=== PATIENT | female | born 1980 | race Caucasian/White ===

== ENCOUNTER → 2022-11-09 14:05 | Outpatient (CLI) | payer MEDICAID, SELFPAY ==
[2022-11-09 18:39] LABS: Basophils % 0.4 % (0.1-2.0); Eosinophils # 0.1 K/mm3 (0.0-0.4); Eosinophils % 1.3 % (0.1-12.0); Hematocrit 40.7 % (37.0-47.0); Hemoglobin 12.5 g/dL (12.2-16.2); Lymphocytes # 2.5 K/mm3 (0.7-4.5); Mean Corpuscular HGB Conc 30.7 g/dL (31.8-35.4); Mean Corpuscular Hemoglobin 32.4 pg (27.0-31.2); Mean Corpuscular Volume 105.7 fl (81-99); Mean Platelet Volume 9.7 fl (7.4-10.4); Monocytes # 0.5 K/mm3 (0.1-1.0); Monocytes % 4.9 % (1.7-9.3); Neutrophils # 6.2 K/mm3 (1.8-7.8); Neutrophils % 66.4 % (37.0-80.0); Platelet Count 298 K/mm3 (142-424); Red Blood Count 3.85 M/mm3 (4.20-5.40); Red Cell Distribution Width 12.5 % (11.5-17.5); White Blood Count 9.3 K/mm3 (4.8-10.8)
[2022-11-09 18:54] LABS: Alanine Aminotransferase 18 U/L (12-78); Albumin Level 4.6 g/dl (3.5-5.0); Albumin/Globulin Ratio 1.4 (1.1-1.8); Alkaline Phosphatase 86 U/L (38-126); Anion Gap 18.5 mEq/L (5-15); Aspartate Amino Transferase 24 U/L (14-36); Bilirubin,Total 0.4 mg/dl (0.2-1.3); Blood Urea Nitrogen 10 mg/dl (7-17); Calcium 9.3 mg/dl (8.4-10.2); Carbon Dioxide 29 mmol/L (22.0-30.0); Chloride 102 mmol/L (98-107); Estimated Glomerular Filt Rate 111 ml/min (>60); GFR (African American) 134 ML/MIN (>60); Globulin 3.3 g/dL (1.3-3.2); Glucose 85 mg/dl (74-100); Potassium 3.5 mmoL/L (3.5-5.1); Sodium 146 mmol/L (136-145); Total Protein,Serum 7.9 g/dl (6.3-8.2)
[2022-11-09 19:45] LABS: Vitamin B12 530 pg/mL (239-931)
[2022-11-23 17:09] LABS: 1,25 Dihydroxy Vitamin D 122 pg/mL (.); 1,25-Dihydroxy, Vitamin D-2 33 pg/mL (.); 1,25-Dihydroxy, Vitamin D-3 89 pg/mL (.)
== END ==
PROVIDERS: PCP Family Medicine; Visit Provider Family Medicine
DX: J32.9 Chronic sinusitis, unspecified (principal); Z79.899 Other long term (current) drug therapy
CPT/HCPCS: 80053; 82607; 82652; 85025

== ENCOUNTER → 2023-01-10 23:40 | Outpatient (CLI) | payer MEDICAID, SELFPAY ==
[2023-01-10 23:15] LABS: Amphetamine/Metha Screen,Urine Negative ng/ml (<1000); Barbiturates Screen,Urine Positive ng/ml (<200)
[2023-01-10 23:16] LABS: Benzodiazepines Screen,Urine Positive ng/ml (<200); Cannabinoid Screen,Urine Negative ng/ml (<50)
[2023-01-10 23:17] LABS: Cocaine Screen,Urine Positive ng/ml (<300)
[2023-01-10 23:18] LABS: Opiate Screen,Urine Negative ng/ml (<300)
[2023-01-10 23:19] LABS: Phencyclidine Screen,Urine Negative ng/ml (<25)
[2023-01-11 00:26] LABS: Methadone Screen,Urine Negative ng/ml (<300)
== END ==
PROVIDERS: PCP Family Medicine; Visit Provider Family Medicine
DX: Z79.899 Other long term (current) drug therapy (principal)
CPT/HCPCS: 80305

== ENCOUNTER 2023-01-24 19:00 | Emergency (ER) | payer MEDICAID, SELFPAY ==
--- NOTE | 2023-01-24 19:27 | HMH.EDGENADL ---
Discharge Plan Disposition Patient Disposition: Home, Self-Care Condition: Good Prescriptions Prescriptions: No Action clonidine HCl 0.1 mg tablet 0.1 mg PO BID Qty: 60 3RF furosemide [Lasix] 20 mg tablet 20 mg PO DAILY PRN (Reason: edema) Qty: 30 3RF omeprazole 40 mg capsule,delayed release(DR/EC) 40 mg PO DAILY Qty: 90 3RF valacyclovir 500 mg tablet 500 mg PO DAILY cefdinir 300 mg capsule 300 mg PO BID 10 Days Qty: 20 0RF fluconazole 150 mg tablet 150 mg PO ONCE Qty: 1 0RF hydroxyzine HCl 25 mg tablet 25 mg PO TID PRN (Reason: anxiety) Qty: 90 5RF ondansetron 4 mg tablet,disintegrating See Rx Instructions .ROUTE .COMPLEX Qty: 30 0RF Dose Instruction: PLACE 1 TABLET ON TONGUE EVERY 8 HOURS NEEDED FOR NAUSEA AND/OR VOMITING Rx Instructions: PLACE 1 TABLET ON TONGUE EVERY 8 HOURS NEEDED FOR NAUSEA AND/OR VOMITING promethazine 25 mg tablet See Rx Instructions .ROUTE .COMPLEX Qty: 60 2RF Dose Instruction: TAKE 1 TABLET BY MOUTH 3 TIMES A DAY NEEDED FOR NAUSEA AND/OR VOMITING Rx Instructions: TAKE 1 TABLET BY MOUTH 3 TIMES A DAY NEEDED FOR NAUSEA AND/OR VOMITING albuterol sulfate 90 mcg/actuation HFA aerosol inhaler 2 puff inhalation QID PRN (Reason: shortness of breath or wheezing) Qty: 8.5 10RF PNV,calcium 07-yovl-zqqki acid 27 mg iron- 1 mg tablet 1 tab PO DAILY Qty: 90 10RF Rx Instructions: can substitute for formulary vitamin methocarbamol 750 mg tablet See Rx Instructions .ROUTE .COMPLEX Qty: 90 3RF Dose Instruction: TAKE 1 TABLET BY MOUTH 3 TIMES A DAY Rx Instructions: TAKE 1 TABLET BY MOUTH 3 TIMES A DAY Referrals Follow up/Referrals: Alan Beyer MD [Primary Care Provider] - See instructions Activity Restrictions/Add. Instructions Additional Instructions/Restrictions: You were evaluated in the emergency department today. Please follow-up closely with your primary care provider. Return to the emergency department for any new or worsening symptoms. Clinical Impressions Clinical Impression: Migraine Instructions Patient Instructions: DI for Migraine Discharge ED Provider: Michaelle Olguin General Adult HPI General Chief complaint: Recheck/Abnormal Lab/Rx Stated complaint: Potassium low Time Seen by Provider: 01/24/23 19:14 History of Present Illness HPI narrative: This patient is a 42-year-old female with a history of migraines presenting to the emergency department with concern that she had low potassium on outpatient labs obtained by her ENT physician. She states they called and told her to get to the ER because her potassium is dangerously low. She sees ENT for a chronic sinusitis. She states that she has been doing well as far as this goes. She states that she has been having some muscle cramps, and she is currently dealing with a migraine. She states that the only thing that usually helps her migraines in the emergency department is Dilaudid, as she is allergic to everything else. She can have Tylenol, Toradol, or other medications because it makes her have chest pain or feel funny. She denies any recent fevers, vision changes, numbness, tingling, unilateral weakness, chest pain, shortness of breath, abdominal pain, nausea, vomit, changes bowel movements, or other concerns. She does note some cramping in her legs bilaterally. Related Data Home Medications Medication Instructions Recorded Confirmed valacyclovir 500 mg tablet 500 mg PO DAILY 09/15/22 01/10/23 Previous Rx's Medication Instructions Recorded ondansetron 4 mg disintegrating See Rx Instructions .Route 07/20/22 tablet .COMPLEX #30 tabs clonidine HCl 0.1 mg tablet 0.1 mg PO BID #60 tabs 08/21/22 furosemide 20 mg tablet (Lasix) 20 mg PO DAILY PRN edema #30 tabs 08/21/22 omeprazole 40 mg capsule,delayed 40 mg PO DAILY #90 caps 08/21/22 release promethazine 25 mg tablet See Rx Instructions .Route 05
[2023-01-24 19:29] VITALS: BP 166/120; PULSE 107; RESP 18; O2SAT 100
[2023-01-24 19:33] VITALS: BP 155/100; PULSE 97; RESP 13; TEMP 36.8; O2SAT 100; BMI 25.7
[2023-01-24 19:44] LABS: Chloride 104 mmol/L (98-107); Potassium 3.5 mmoL/L (3.5-5.1); Sodium 144 mmol/L (136-145)
[2023-01-24 19:47] LABS: Anion Gap 15.5 mEq/L (5-15); Blood Urea Nitrogen 15 mg/dl (7-17); Carbon Dioxide 28 mmol/L (22.0-30.0); Creatinine Clearance Estimated 92 mL/min (50-200); Estimated Glomerular Filt Rate 69 ml/min (>60); GFR (African American) 84 ML/MIN (>60)
[2023-01-24 19:48] LABS: Glucose 94 mg/dl (74-100)
--- NOTE | 2023-01-24 19:48 | ECG_ITS ---
APPROVED REPORT Exam: Resting ECG HR:93 bpm ECG Measurements Heart Rate 93 AXES SC 150 P 56 QRSd 85 QRS 64 QT 366 T 53 QTc 417 Conclusion SINUS RHYTHM NORMAL ECG UNCONFIRMED REPORT Electronically signed by : Santi Toro MD 01/26/2023 16:05:10
--- NOTE | 2023-01-24 19:55 | PC.NURSE ---
rounded on pt, took to restroom and no other concerns at this time
[2023-01-24 19:57] VITALS: BP 180/121; PULSE 102; RESP 16; O2SAT 99
[2023-01-24 20:21] VITALS: BP 172/109; PULSE 98; RESP 14; TEMP 36.8
== END 2023-01-24 20:26 | disposition home or self-care (01) ==
PROVIDERS: Emergency Provider Emergency Medicine; PCP Family Medicine
DX: G43.909 Migraine, unspecified, not intractable, without status migrainosus (principal); E87.6 Hypokalemia; F17.200 Nicotine dependence, unspecified, uncomplicated
CPT/HCPCS: 80048; 93005; 96360; 96372; 99284

== ENCOUNTER 2023-09-24 22:07 | Outpatient (CLI) | payer MEDICAID, SELFPAY ==
[2023-09-24 22:18] LABS: Adenovirus,PCR Not Detected (NotDetected); Bordetella Pertussis Not Detected (NotDetected); Chlamydophila Pneumoniae, PCR Not Detected (NotDetected); Coronavirus 19, PCR Not Detected (NotDetected); Coronavirus 229E Not Detected (NotDetected); Coronavirus NL63 Not Detected (NotDetected); Coronavirus OC43 Not Detected (NotDetected); Coronovirus HKU1,PCR Not Detected (NotDetected); Human Metapneumovirus Not Detected (NotDetected); Influenza A, PCR Not Detected (NotDetected); Influenza AH1, 2009 Not Detected (NotDetected); Influenza AH1, PCR Not Detected (NotDetected); Influenza AH3,PCR Not Detected (NotDetected); Influenza B, PCR Not Detected (NotDetected); Mycoplasma Pneumoniae, PCR Not Detected (NotDetected); Parainfluenza 1, PCR Not Detected (NotDetected); Parainfluenza 2, PCR Not Detected (NotDetected); Parainfluenza 3, PCR Not Detected (NotDetected); Parainfluenza 4, PCR Not Detected (NotDetected); Respiratory Syncytial Virus Not Detected (NotDetected); Rhinovirus/Enterovirus Not Detected (NotDetected)
== END 2023-09-24 23:59 | disposition home or self-care (01) ==
LOC: LAB.DROPOF 22:07
PROVIDERS: PCP Family Medicine; Visit Provider Family Medicine
DX: J32.9 Chronic sinusitis, unspecified (principal); R05.9 Cough, unspecified; R51.9 Headache, unspecified; H92.02 Otalgia, left ear; R11.0 Nausea
CPT/HCPCS: 87581; 87632; 87635; 87798

== ENCOUNTER 2024-06-02 15:35 | Emergency (ER) | payer MEDICAID, SELFPAY ==
[2024-06-02 15:36] VITALS: BP 171/104; PULSE 107; RESP 20; TEMP 36.8; O2SAT 100; BMI 31.6
--- NOTE | 2024-06-02 16:05 | US_ITS ---
PROCEDURE INFORMATION: Exam: US Pelvis, Transvaginal, Non-Obstetric Exam date and time: 06/02/2024 4:00 PM Age: 43 years old Clinical indication: Pelvic pain; Additional info: Rlq pain large cyst acute onset. TECHNIQUE: Imaging protocol: Real-time transvaginal pelvic (non-obstetric) ultrasound with image documentation. Transvaginal imaging was used for better evaluation of the endometrium, adnexa, and/or cervix. COMPARISON: No relevant prior studies available. FINDINGS: Uterus: Prior hysterectomy. Right ovary/adnexa: Right ovary measures 1.6 x 3.1 x 1.9 cm. There is a right ovarian corpus luteum measuring 1.2 cm. Left ovary/adnexa: Left ovary is not visualized, there is a given clinical history of oophorectomy on that side. Urinary bladder: Urinary bladder is limited. Intraperitoneal space: No free fluid. IMPRESSION: Absent left ovary and uterus. Right ovarian corpus luteum measuring 1.2 cm.
--- NOTE | 2024-06-02 16:15 | ED_ITS ---
Discharge Plan Disposition Patient Disposition: Home, Self-Care Prescriptions Prescriptions: No Action PNV,calcium 13-[id number] acid 27 mg iron- 1 mg tablet 1 tab PO DAILY Qty: 90 10RF Rx Instructions: can substitute for formulary vitamin valacyclovir 500 mg tablet 500 mg PO DAILY Qty: 30 0RF hydrocortisone [Cortisone (hydrocortisone)] 1 % cream 1 applic topical TID PRN (Reason: itching) Qty: 28.4 10RF tacrolimus 0.1 % ointment topical albuterol sulfate 90 mcg/actuation HFA aerosol inhaler 2 puff inhalation QID PRN (Reason: shortness of breath or wheezing) Qty: 8.5 10RF buspirone 15 mg tablet 15 mg PO TID PRN (Reason: anxiety) Qty: 90 0RF fluconazole 150 mg tablet 150 mg PO Q3D Qty: 2 0RF hydroxyzine HCl 25 mg tablet 25 mg PO TID PRN (Reason: anxiety) Qty: 90 5RF benzoyl peroxide 5 % gel 1 applic topical DAILY Qty: 60 10RF ondansetron 4 mg tablet,disintegrating See Rx Instructions .ROUTE .COMPLEX Qty: 30 0RF Dose Instruction: PLACE 1 TABLET ON TONGUE EVERY 8 HOURS NEEDED FOR NAUSEA AND/OR VOMITING Rx Instructions: PLACE 1 TABLET ON TONGUE EVERY 8 HOURS NEEDED FOR NAUSEA AND/OR VOMITING omeprazole 40 mg capsule,delayed release(DR/EC) 40 mg PO DAILY Qty: 90 0RF methocarbamol 750 mg tablet See Rx Instructions .ROUTE .COMPLEX Qty: 90 0RF Dose Instruction: TAKE ONE TABLET BY MOUTH THREE TIMES A DAY NEEDED FOR MUSCLE SPASMS Rx Instructions: TAKE ONE TABLET BY MOUTH THREE TIMES A DAY NEEDED FOR MUSCLE SPASMS Referrals Follow up/Referrals: Alan Beyer MD [Primary Care Provider] - See instructions Activity Restrictions/Add. Instructions Additional Instructions/Restrictions: Call your family doctor to establish care for this visit to the emergency department and schedule follow-up within 48 hours to ensure improvement. If you have any worsening of your condition or any other concerning signs or symptoms, return to the emergency department or your primary care doctor for further evaluation. Take Tylenol 1000 mg every 6 hours (4 times daily) and ibuprofen 400 mg every 6 hours (4 times daily) as needed with food and water to prevent GI upset and kidney damage. Bowel regimen as discussed and provided. Clinical Impressions Clinical Impression: Abdominal pain Qualifiers: Abdominal location: right lower quadrant Qualified Code(s): R10.31 - Right lower quadrant pain Instructions Patient Instructions: DI for Acute Abdominal Pain Print Language Print Language: French Discharge ED Provider: Arben Membreno General Adult HPI General Chief complaint: Abdominal Pain Stated complaint: sent by Dr. Kayleen elizabeth. ruptured ovarian cyst Time Seen by Provider: 06/02/24 15:40 Mode of Arrival: Ambulatory Source of Information: Patient Limitations: No Limitations Description of Symptoms (Recalled from ER Triage Doc. by RN): pt states she was dx with rigth ovarian cyst on by another ER and given a few pain pils and has had a hysterectomy, pt is trying harlan get set up with an ob, pt denies any soa, cp, fever or diarrhea but does have nausea and vomiting due to pain History of Present Illness HPI narrative: Please note that above description of symptoms, in this electronic medical record under categorization of recalled from ER triage doctor by RN are reflective of an initial nursing assessment, however, is not reflective of my full history and physical exam that was personally taken and clarified. Consequentially, this preceding description of symptoms, which may include the patient's categorized chief complaint in the EMR, do not reflect my personal clinical impression, and the ultimate description of history of present illness and patient stated complaints should be deferred to this section of the note. Unless stated otherwise or congruent with this section of the note, additional signs, symptoms, or incongruence should be interpreted as inaccurate with my clinical impression. Related Data Home Medications ?Medication ?Instructions ?Recorded ?Confirmed tacrolimus 0.1 % topical ointment topical 06/02/24 06/02/24 Previous Rx's ?Medication ?Instructions ?Recorded albuterol sulfate 90 mcg/actuation 2 puff inhalation QID PRN 11/07/22 aerosol inhaler shortness of breath or wheezing #8.5 grams buspirone 15 mg tablet 15 mg PO TID PRN anxiety #90 tabs 09/03/23 fluconazole 150 mg tablet 150 mg PO Q3D yeast infection 2 10/01/23 doses #2 tabs hydrocortisone 1 % topical cream 1 applic topical TID PRN itching 11/01/23 (Cortisone (hydrocortisone)) #28.4 grams vitamin with calcium 1 tab PO DAILY #90 tabs 11/01/23 no.72-iron 27 mg-folic acid 1 mg tablet valacyclovir 500 mg tablet 500 mg PO DAILY #30 tabs 11/01/23 hydroxyzine HCl 25 mg tablet 25 mg PO TID PRN anxiety #90 tabs 11/28/23 benzoyl peroxide 5 % topical gel 1 applic topical DAILY #60 grams 01/25/24 ondansetron 4 mg disintegrating See Rx Instructions .Route 01/25/24 tablet .COMPLEX #30 tabs omeprazole 40 mg capsule,delayed 40 mg PO DAILY #90 caps 04/24/24 release methocarbamol 750 mg tablet See Rx Instructions .Route 05/21/24 .COMPLEX #90 tabs Allergies Allergy/AdvReac Type Severity Reaction Status Date / Time Penicillins Allergy Severe Difficulty Verified 06/02/24 14:21 Breathing acetaminophen (From Percocet) Allergy Mild Redness of Verified 06/02/24 16:22 Skin clindamycin Allergy Mild Rash Verified 06/02/24 16:22 morphine Allergy Mild Nausea Verified 06/02/24 16:22 oxycodone (From Percocet) Allergy Mild Vomiting Verified 06/02/24 16:22 tetanus toxoid, adsorbed Allergy Mild Rash Verified 06/02/24 16:22 ketorolac (From Toradol) Allergy Rash Verified 06/02/24 16:23 brompheniramine (From AdvReac Intermediate Hallucinati Verified 06/02/24 14:21 Bromfed DM) ng dextromethorphan (From AdvReac Intermediate Hallucinati Verified 06/02/24 14:21 Bromfed DM) ng pseudoephedrine (From AdvReac Intermediate Hallucinati Verified 06/02/24 14:21 Bromfed DM) ng sulfamethoxazole (From AdvReac Chest Pain Verified 06/02/24 16:22 Bactrim) trimethoprim (From Bactrim) AdvReac Chest Pain Verified 06/02/24 16:22 trazadone Allergy Mild Rash Uncoded 06/02/24 16:22 phentonol AdvReac Intermediate Hallucinati Uncoded 06/02/24 14:21 ng [facility] Disclaimer: The information contained in this section may have been updated after the patient was seen, as this information can be updated by other users. Medical History Anxiety Migraine Surgical History History of tubal ligation Hx of adenoidectomy History of placement of ear tubes Hx of cholecystectomy Hx of hysterectomy History of left shoulder replacement History of lateral meniscus repair of right knee History of lateral meniscus repair of left knee History of dental surgery Family History Other COPD (chronic obstructive pulmonary disease) Coronary artery disease FHx: mental illness Migraine Social History (Updated 06/02/24 @ 14:23 by Karie Rodas MA) Smoking Status: Current every day smoker tobacco type: cigarettes alcohol intake: former current occupational status: unemployed Travel in the last 8 weeks: None Have you lived/traveled outside [place] in past 30 days?: No Contact w/someone who lives/traveled outside US past 30 days?: No Exposure to someone with infectious disease in past 14 days?: No Do you have a fever (greater than 100.4 F or 38 C)?: No Have you tested positive for COVID-19: No Exposed to someone with COVID-19 in past 14 days?: No Do you have a sore throat?: No Do you have a cough?: No Do you have any weakness?: No Do you have any diarrhea?: No Are you experiencing any unusual bleeding?: No Do you have any muscle aches/pain?: No Do you have any abdominal pain?: No Are you experiencing loss of taste or smell?: No Other Medical History Have you received the Pneumonia Vaccine: No ROS Obtained: Yes All systems reviewed & no additional complaints except as documented Physical Exam General General appearance: alert, in no apparent distress and obese Head Head exam: atraumatic and normocephalic Eye Eye exam: Present normal appearance, PERRL and EOMI ENT ENT exam: Present other (Edentulous.) Neck Neck exam: Present normal inspection, full ROM and trachea midline Respiratory Respiratory exam: Absent respiratory distress, wheezes, stridor, accessory muscle use or prolonged expiratory phase Cardiovascular Cardiovascular exam: Present regular rate, normal rhythm and other (Pulses equal symmetric in upper and lower extremities) Abdominal Exam Abdominal exam: Present soft and tenderness; Absent distention, guarding, rebound, rigidity or pulsatile mass Abdominal tenderness: Present RLQ (Distractible) Extremities Exam Extremities exam: Absent edema Neurological Exam Neurological exam: Present alert, oriented X3 and CN II-XII intact; Absent motor sensory deficit Skin Skin exam: Present warm and dry; Absent diaphoresis or erythema Medical Decision Making Medical Records Medical records reviewed: Yes I reviewed the patient's medical records. Screening: Per USPSTF and CDC recommendations, given the prevalence of disease in our region, it is our hospital?s policy to screen for HIV and viral Hepatitis for all patients aged 18 and over and those with ongoing risk factors. Ming Inquiry Pt receiving controlled substance: No Ming was queried for this patient: No Vital Signs: 06/02/24 15:36 Temperature 98.3 F Temperature Source Oral Pulse Rate [Left Radial] 107 H Respiratory Rate 20 Blood Pressure [Right Arm] 171/104 H Blood Pressure Mean [Right Arm] 126 02 Sat by Pulse Oximetry 100 Oxygen Delivery Method Room Air Lab Data Lab Results 06/02/24 15:41: Urine Color Yellow, Urine Appearance Clear, Urine pH 6.0, Ur Specific [place] 1.025, Urine Protein Negative, Urine Glucose (UA) Negative, Urine Ketones Negative, Urine Blood Negative, Urine Nitrate Negative, Urine Bilirubin Negative, Urine Urobilinogen 0.2, Ur Leukocyte Esterase Negative, Urine RBC None, Urine WBC 3-5, Ur Squamous Epith Cells 3-5, Urine Bacteria None 06/02/24 16:00: WBC 8.0, RBC 3.79 L, Hgb 12.2, Hct 37.6, MCV 99.2 H, MCH 32.2 H, MCHC 32.4, RDW 13.1, Plt Count 292, MPV 10.1, Neut % (Auto) 53.1, Lymph % (Auto) 36.5, [place] % (Auto) 6.8, Eos % (Auto) 3.0, Baso % (Auto) 0.5, Neut # (Auto) 4.2, Lymph # (Auto) 2.9, [place] # (Auto) 0.5, Eos # (Auto) 0.2, Baso # (Auto) 0.0, Sodium 136, Potassium 3.7, Chloride 104, Carbon Dioxide 24, Anion Gap 11.7, BUN 15, Creatinine 0.70, Estimated Creat Clear 144, Estimated GFR 92, Est GFR ( Amer) 112, Glucose 101 H, Calcium 9.1, Total Bilirubin 0.3, AST 27, ALT 22, Alkaline Phosphatase 76, Total Protein 8.1, Albumin 4.8, Globulin 3.3 H, Albumin/Globulin Ratio 1.5 06/02/24 16:00 06/02/24 16:00 Orders (Tests/Meds): ED MEDICATIONS Discontinued Medications Generic Name Dose Route Start Last Admin Trade Name Jonathan PRN Reason Stop Dose Admin Acetaminophen 1,000 mg 06/02/24 16:05 06/02/24 16:27 Acetaminophen 1,000mg/100ml Vial IV 06/02/24 16:06 1,000 mg ONCE ONE Administration Diphenhydramine HCl 50 mg 06/02/24 16:05 06/02/24 16:26 Diphenhydramine 50mg/Ml Vial IV 06/02/24 16:06 50 mg ONCE ONE Administration Iopamidol 75 ml 06/02/24 17:52 06/02/24 17:53 Iopamidol-370 (76%);100ml Bottle IV 06/02/24 17:53 75 ml ONCE ONE Administration Ketorolac Tromethamine 15 mg 06/02/24 16:05 06/02/24 16:26 Ketorolac 30mg/Ml Vial IV 06/02/24 16:06 Not Given ONCE ONE Morphine Sulfate 4 mg 06/02/24 17:40 06/02/24 18:05 Morphine 4mg/Ml Syringe IV 06/02/24 17:41 4 mg ONCE ONE Administration Ondansetron HCl 4 mg 06/02/24 16:05 06/02/24 16:26 Ondansetron 4mg/2ml Vial IV 06/02/24 16:06 4 mg ONCE ONE Administration Ondansetron HCl 4 mg 06/02/24 17:40 06/02/24 18:04 Ondansetron 4mg/2ml Vial IV 06/02/24 17:41 4 mg ONCE ONE Administration Sodium Chloride 10 ml 06/02/24 17:52 06/02/24 17:53 Sodium Chloride 0.9% 10ml Syr (Rad Only) IV 06/02/24 17:53 10 ml ONCE ONE Administration ORDERS Category Date Time Status CT abdomen pelvis w con Stat Cat Scan 06/02/24 17:40 Completed Consult Kindergarten Paraprofessional [CONS] Routine Cons 06/02/24 16:24 Active US transvaginal Stat Exams 06/02/24 16:05 Completed CBC w/Auto Diff [Complete Blood Count Auto Diff] Stat Lab 06/02/24 16:00 Completed CMP [Comprehensive Metabolic Panel] Stat Lab 06/02/24 16:00 Results CRP [C-Reactive Protein] Stat Lab 06/02/24 16:00 Results UA [Urinalysis and Microscopic] Stat Lab 06/02/24 15:41 Completed Medical Decision Narrative: This is a 43-year-old female hysterectomy, cholecystectomy, chronic abdominal pain, anxiety presenting with abdominal pain. Patient states that she has had this abdominal pain on and off for a few days. States that [facility] to this and was diagnosed with a large angry cyst, on her right ovary at that time by CT scan. Was sent home. Patient states that she continued having pain. Today, 06/02, around 10 AM patient states she sat up in bed and . States that she had immediate pain in her right lower quadrant with associated nausea without vomiting. No urinary symptoms, constipation, diarrhea. Still passing gas. No fevers or chills or any systemic signs or symptoms. Called her PCP, Dr. Beyer, told her to come to the emergency department. On arrival, hemodynamically stable, afebrile, nontachycardic, very well clinically appearing. When provider not in the room, patient sitting in bed appears to be in no acute distress and speaking conversationally with family. Upon my entering into the room, patient begins to exhibit pain symptoms outwardly and intermittently grabbing her abdomen primarily in the right lower quadrant. Abdomen is soft, nondistended and no evidence of peritonitis on my exam. Tenderness does appear to be distractible. No flank tenderness. She has no overlying skin changes. Upon questioning patient further about her medical history, patient states I am allergic to everything you have. When probed further about allergies, patient states you would like to know what you can give me through my IV, right? Patient states the only thing is Dilaudid and Phenergan. Everything else I am allergic to. I feel this is incredibly unlikely. Told patient we would start with Benadryl and Toradol because this is likely very inflammatory pain if she does have a cyst versus cyst rupture. Patient agreeable this plan. She states that when she gets Toradol I get a softball on my chest and welts the size of quarters. History obtained with patient and independent review of outside hospital records. Differential includes cyst rupture, torsion, urinary tract infection, nephrolithiasis, less likely appendicitis, bowel obstruction, rupture, perforation, etc. given patient's unremarkable exam. Patient was given Benadryl and Toradol IV for management of symptoms without reaction. Labs were obtained. On independent interpretation, white blood cell count 8.0, hemoglobin normal at 12.2, platelets normal at 292. On 06/01, yesterday, patient's white blood cell count 7.4, hemoglobin 12.7, platelets 265. Unremarkable both yesterday and today. Chemistry today as compared to yesterday also unremarkable with no actionable findings. hCG undetectable yesterday, patient has had hysterectomy though. Today, labs also unremarkable, urinalysis unremarkable. Transvaginal ultrasound was obtained and independently interpreted, patient has small, 1.2 cm ovarian cyst with no evidence of free fluid. Flow to the right ovary present. Surgically absent uterus and left ovary. I also independently reviewed outside CT from just yesterday, appendix normal in caliber, no acute intra-abdominal findings other than small cyst, as noted today. On reevaluation, patient states she still has pain, but I feel she is appropriate outpatient follow-up. Repeat negative abdominal exam. When I walked in the room, patient begins acting as if she is in pain again. I feel she is exhibiting symptom magnification. Unsure if she has any secondary gain. I feel this is incredibly unlikely to be acute surgical emergency given completely negative workup on independent interpretation as well as largely unconcerning abdominal exam. Patient insistent upon something being wrong, utility of CT scan was discussed with patient and mother. Ultimately, patient requesting CT scan and pain medication. 4 mg of morphine and Zofran were administered. On independent interpretation of CT scan, patient does have moderate amount of constipation, this could be explaining her pain in her right lower quadrant. Because patient at baseline without signs or symptoms of clinical decompensation, deemed appropriate for discharge. Results were relayed to patient who voiced understanding and were agreeable to outpatient management and follow up. I discussed my clinical impression with patient and answered all questions. At this time, the evidence for any other entities in the differential is insufficient to warrant any further testing or ED observation. This was explained as well. Advisory was given that persistent or worsening symptoms require further evaluation. I confirmed the understanding of this discussion. Clinical Trial Manager disclaimer Much of this encounter note is an electronic electrical engineering designer spoken language to printed text. Electronic electrical engineering designer of the spoken language may permit errors. Although I have reviewed the note, some errors may still exist. Critical Care Critical Care Time Critical Care Time: No
[2024-06-02 16:23] LABS: Albumin Level 4.8 g/dl (3.5-5.0); Chloride 104 mmol/L (98-107); Potassium 3.7 mmoL/L (3.5-5.1); Sodium 136 mmol/L (136-145)
[2024-06-02 16:26] LABS: Alanine Aminotransferase 22 U/L (12-78); Albumin/Globulin Ratio 1.5 (1.1-1.8); Alkaline Phosphatase 76 U/L (38-126); Anion Gap 11.7 mEq/L (5-15); Aspartate Amino Transferase 27 U/L (14-36); Bilirubin,Total 0.3 mg/dl (0.2-1.3); Blood Urea Nitrogen 15 mg/dl (7-17); Carbon Dioxide 24 mmol/L (22.0-30.0); Creatinine Clearance Estimated 144 mL/min (50-200); Estimated Glomerular Filt Rate 92 ml/min (>60); GFR (African American) 112 ML/MIN (>60); Globulin 3.3 g/dL (1.3-3.2); Total Protein,Serum 8.1 g/dl (6.3-8.2)
[2024-06-02] MEDS: diphenhydrAMINE 50MG/ML VIAL 50 MG IV (16:26)
[2024-06-02] MEDS: ONDANSETRON 4MG/2ML VIAL 4 MG IV ×2 (16:26→18:04)
[2024-06-02 16:27] LABS: Calcium 9.1 mg/dl (8.4-10.2); Glucose 101 mg/dl (74-100)
[2024-06-02] MEDS: ACETAMINOPHEN 1,000MG/100ML VIAL 1000 MG IV (16:27)
[2024-06-02 16:28] LABS: Basophils % 0.5 % (0.1-2.0); Eosinophils # 0.2 K/mm3 (0.0-0.4); Hematocrit 37.6 % (37.0-47.0); Hemoglobin 12.2 g/dL (12.2-16.2); Lymphocytes # 2.9 K/mm3 (0.7-4.5); Lymphocytes % 36.5 % (10-50); Mean Corpuscular HGB Conc 32.4 g/dL (31.8-35.4); Mean Corpuscular Hemoglobin 32.2 pg (27.0-31.2); Mean Corpuscular Volume 99.2 fl (81-99); Mean Platelet Volume 10.1 fl (7.4-10.4); Monocytes # 0.5 K/mm3 (0.1-1.0); Monocytes % 6.8 % (1.7-9.3); Neutrophils # 4.2 K/mm3 (1.8-7.8); Neutrophils % 53.1 % (37.0-80.0); Platelet Count 292 K/mm3 (142-424); Red Blood Count 3.79 M/mm3 (4.20-5.40); Red Cell Distribution Width 13.1 % (11.5-17.5)
--- NOTE | 2024-06-02 16:30 | PC.NURSE ---
PT TO US
[2024-06-02 16:37] LABS: Microscopic, Urine URINE MICROSCOPIC (MICROSCOPIC)
--- NOTE | 2024-06-02 16:39 | PC.NURSE ---
Called [place] [facility] for a copy of labs and CT per Dr. Membreno
[2024-06-02 16:46] LABS: Appearance,Urine CLEAR (Clear); Bilirubin,Urine Negative (Negative); Blood, Urine Negative (Negative); Color,Urine YELLOW (Yellow); Glucose,Urine (UA) Negative (Negative); Ketones,Urine Negative (Negative); Leukocyte Esterase,Urine Negative (Negative); Nitrate,Urine Negative (Negative); Protein,Urine Negative (Negative); Specific Gravity, Urine 1.025 (1.005-1.030); Urobilinogen,Urine 0.2 EU/dl (0.2)
--- NOTE | 2024-06-02 16:49 | PC.NURSE ---
pt returned from ultrasound via radio antenna installer and wheelchair, peer suport specialist at bedside for consult
--- NOTE | 2024-06-02 17:32 | PC.NURSE ---
dr berkowitz at bedside
--- NOTE | 2024-06-02 17:40 | CT_ITS ---
PROCEDURE INFORMATION: Exam: CT Abdomen And Pelvis With Contrast Exam date and time: 06/02/2024 5:53 PM Age: 43 years old Clinical indication: Abdominal pain; Localized; Right lower quadrant (rlq); Prior surgery; Surgery date: 6+ months; Surgery type: Hysterectomy; Additional info: Rlq pain TECHNIQUE: Imaging protocol: Computed tomography of the abdomen and pelvis with contrast. Radiation optimization: All CT scans at this facility use at least one of these dose optimization techniques: automated exposure control; mA and/or kV adjustment per patient size (includes targeted exams where dose is matched to clinical indication); or iterative reconstruction. Contrast material: ISOVUE; Contrast volume: 75 ml; Contrast route: IV; COMPARISON: US TRANSVAGINAL 06/02/2024 4:00 PM FINDINGS: Liver: Normal. Gallbladder and biliary ducts: The patient is status post cholecystectomy. Pancreas: Normal. Spleen: Normal. Adrenal glands: The adrenal glands appear normal. Kidneys and ureters: There are no soft tissue renal masses or hydronephrosis. Stomach and bowel: There is large volume stool throughout the colon. Mild fluid distention of small-bowel loops. Appendix: No evidence of appendicitis. Intraperitoneal space: Unremarkable. Vasculature: The abdominal aorta and its major branches appear normal without evidence of aneurysm or stenosis. There are pelvic phleboliths. Lymph nodes: No lymphadenopathy. Urinary bladder: There is moderate distention of the urinary bladder. Reproductive: Stable right corpus luteum. The patient has undergone prior hysterectomy. Bones/joints: The visualized osseous structures of the abdomen and pelvis appear normal for patient age. Soft tissues: There is a small fat containing umbilical hernia. IMPRESSION: No acute inflammatory or obstructive process is identified. Incidental findings are described within the findings section.
[2024-06-02] MEDS: IOPAMIDOL-370 (76%);100ML BOTTLE 75 ML IV (17:53)
[2024-06-02] MEDS: SODIUM CHLORIDE 0.9% 10ML SYR (RAD ONLY) 10 ML IV (17:53)
[2024-06-02] MEDS: MORPHINE 4MG/ML SYRINGE 4 MG IV (18:05)
[2024-06-02 18:26] VITALS: BP 148/87; PULSE 90; RESP 16; TEMP 36.8; O2SAT 98
[2024-06-02 18:27] LABS: C-Reactive Protein 1.4 mg/L (0-4)
== END 2024-06-02 18:30 | disposition home or self-care (01) ==
PROVIDERS: Emergency Provider Emergency Medicine; PCP Family Medicine
DX: R10.31 Right lower quadrant pain (principal)
CPT/HCPCS: 74177; 76830; 80053; 81001; 85025; 86140; 96374; 96375; 99285; J0131; J1200; J2270; J2405; Q9967

== ENCOUNTER 2024-11-05 10:13 | Outpatient (CLI) | payer MEDICAID, SELFPAY ==
--- OUTSIDE RECORDS SUMMARY | 2024-10-05 20:00 | XMS_ITS | Encounter Summary ---
Author Organization [place] [address] Care Team Providers Care Dollyman Name Role Phone Alan Beyer MD Primary Care Provider [phone] Reason for Visit * Reason Comments Edema PT reports right salguero d swelling & pain. PT doesn't know if she injured it or not. Encounter Details Date Type Department Care Team (Late st Contact Info) Description 10/05/2024 8:00 PM EDT - 10/05/2024 9:47 PM EDT Emergency [facility] [address] [place] [address] Andrés Donahue MD [address] [place], [place] [id number] Injury of right hand, initial encounter (Primary [...] No Risk 10/05/2024 7:56 PM EDT Nakita Mojica RN * [place] Suicide Severity Rating Scale (Q shift for [...] question 6) 0 10/05/2024 7:56 PM EDT Fiath Mojica RN 6. Have you ever done [...] 07/27/2022 fluticasone propionate (FLONASE) 50 mcg/actuation Nasl [place], Suspension 06/05/2022 fUROsemide (LASIX) 20 mg Oral [...] Means Destination Comment s Home or Self [place] documented in this encounter ED Notes * Marleny Vincent PA-C - 10/05/2024 7:52 PM EDT Chief Complaint Patient presents with Edema PT reports right hand swelling & pain. PT doesn't know if she injured it or not. Patient seen for Dr. May 43-year-old female, [id number], presents to the emergency department with pain [...] Historical fluconazole (DIFLUCAN) 100 mg Oral Tablet 3/16/23 Provider, Historical fluticasone propionate (FLONASE) 50 mcg/actuation Nasl [place], Suspension 06/05/22 Provider, Historical fUROsemide (LASIX) 20 [...] Donahue MD - 10/06/2024 12:39 AM EDT E Commerce Specialist Note This patient was seen in coordination [...] Care Team (Late st Contact Info) Description 11/19/2024 8:30 AM EDT Office Visit [facility] [address] [place] [address] Shira Ambrose, PA-C [address] [place] [address] documented as of this encounter Procedures Procedure [...] Injury of right hand, initial encounter- Primary documented in this encounter Care Teams Dollyman Relationship Specialty Start Date End Date Alan Beyer MD [address] [place] [address] PCP - General Family Medicine 10/05/24 documented as of this encounter
--- OUTSIDE RECORDS SUMMARY | 2024-10-18 12:15 | XMS_ITS | Encounter Summary ---
Author Organization [facility] Address [address] [place] [address] Care Team Providers Care Roll Grinder Name Role Phone Alan Beyer MD Primary Care Provider [phone] Reason for Referral * (Routine) - Pending Review Specialty Diagnoses / Procedures Referred By Contac t Referred To Contact Diagnoses Left hand pain Bilateral carpal tunnel syndrome Moisés Katz PA [address] [place] [address] Phone: tel: fax: Referral ID Status Reason Start Date Expiration Date V isits Requested Visits Authorized [id number] Pending Review 10/18/2024 10/18/2025 1 1 Reason for Visit * Reason Comments Pain Encounter Details Date Type Department Care Team (Late st Contact Info) Description 10/18/2024 12:15 PM EDT Office Visit [facility] [place] [address] Moisés Katz PA [address] [place] [address] Bilateral carpal tunnel syndrome (Primary Dx); Left [...] Charline Bond is a 43 y.o. patient [id number] CHIEF COMPLAINT: Bilateral Hand Pain HISTORY: The [...] systems dated 10/20/2024 (or recent visit to [facility]) was reviewed and all pertinent positives were [...] is full for all fingers and thumb. Boarding Mother strength 4/5. Positive Tinel sign bilaterally No [...] Never Social Drivers of Health Received from [facility] Food Insecurity Received from [facility] Family and Community Support Received from [facility] Abuse Screen Received from [employer] Housing Stability SURGICAL HISTORY No past surgical [...] Rfl: fluticasone propionate (FLONASE) 50 mcg/actuation Nasl Henriette, Suspension, , Disp: , Rfl: fUROsemide (LASIX) [...] Disp: , Rfl: Richard Katz PA-C Physician Tactical/Mobile Watch Officer to Mart Marques MD Knee, Shoulder, Sports Medicine & Trauma Orthopaedic Surgery [phone] Bleacher Report Parts of this note may have been [...] Description 11/19/2024 8:30 AM EDT Office Visit [facility] [address] [address] Shira Ambrose PA-C [address] [place] [address] Scheduled Orders Name Type Priority Associated Diagnoses Orde r Schedule MA SERVICES PROVIDED OFFICE OTH/THN REG SCHED HOURS MA Charge Routine Left hand pain Ordered: 10/18/2024 Scheduled Referrals Name Type Priority Associated Diagnoses Order Schedule OC HAND POOL COMMUNICATION ORDER Outpatient Referral Routine Left hand pain Bilateral carpal tunnel syndrome Ordered: 10/18/2024 documented as of this encounter Results * XR HAND LEFT PA LATERAL AND OBLIQUE (10/18/2024 12:27 PM EDT) Narrative GenericuserIsabelle - 10/18/2024 12:28 PM EDT Please see physician's note from office encounter for x-ray imaging result us Moisés HERNANDEZ IMG DIAGNOSTIC IMAGING ORDER DONNA Final Result documented in this encounter Visit Diagnoses Diagnosis Bilateral carpal tunnel syndrome- Primary Carpal tunnel syndrome Left hand pain Pain in limb Left hand pain Pain in limb documented in this encounter Care Teams Roll Grinder Relationship Specialty Start Date End Date Alan Beyer MD [address] [place], [place] [id number] PCP - General Family Medicine 10/05/24 documented as of this encounter
--- OUTSIDE RECORDS SUMMARY | 2024-10-18 12:30 | XMS_ITS | Encounter Summary ---
Author Organization [facility] Address [address] [place] [address] Care Team Providers Care Molded Frames Assembler Name Role Phone Alan Beyer MD Primary Care Provider [phone] Encounter Details Date Type Department Care Team (Late Contact Info) Description 10/18/2024 12:30 PM EDT Ancillary Procedure [address] [address] Moisés Katz PA [address] [address] Left hand pain Social History Tobacco Use [...] on file documented as of this encounter Plan of Treatment Upcoming Encounters Date Type Department Care Team (Late st Contact Info) Description 11/19/2024 8:30 AM EDT [facility] [address] [place] [address] Shira Ambrose PA-C [address] [place] [address] documented as of this encounter Procedures Procedure Name Priority Date/Time Associated Diagnosis Comments XR HAND LEFT PA LATERAL AND OBLIQUE Routine 10/18/2024 12:27 PM EDT Left hand pain documented in this encounter Results * XR HAND LEFT PA LATERAL AND OBLIQUE (10/18/2024 12:27 PM EDT) Narrative Genericuser, Isabelle - 10/18/2024 12:28 PM EDT Please see physician's note from office encounter for x-ray imaging result Moisés HERNANDEZ IMG DIAGNOSTIC IMAGING ORDER DONNA Final Result documented in this encounter Visit Diagnoses Diagnosis Left hand pain Pain in limb documented in this encounter Care Teams Molded Frames Assembler Relationship Specialty Start Date End Date Alan Beyer MD [address] [place] [address] PCP - General Family Medicine 10/05/24 documented as of this encounter
--- OUTSIDE RECORDS SUMMARY | 2024-10-20 08:00 | XMS_ITS | Encounter Summary ---
Author Organization [facility] Address [address] [place] [address] Care Team Providers Care Machine Spreader Name Role Phone Alan Beyer MD Primary Care Provider [phone] Reason for Referral * EMG (Routine) - AFF Authorization Not Needed Specialty Diagnoses / Procedures Referred By Contact Referred To Contact Psychiatry & Neurology-Neurology / Electromyography Diagnoses Bilateral carpal tunnel syndrome Procedures EMG Shira Ambrose PA-C [address] [place] [address] Phone: tel: fax: Anshu Rojas MD [address] [place] [address] Phone: tel: fax: Referral ID Status Reason Start Date Expiration Date Visits Requested Visits Authorized [id number] AFF Authorization Not Needed 10/20/2024 10/20/2025 1 1 Reason for Visit * Reason Comments Pain Pain Encounter Details Date Type Department Care Team (Late st Contact Info) Description 10/20/2024 8:00 AM EDT [facility] [address] [address] Shira Ambrose PA-C [address] [place] [address] Bilateral carpal tunnel syndrome (Primary Dx) Social [...] AM EDT Office Visit [facility] [address] [address] Shira Ambrose PA-C [address] [place] [address] Scheduled Orders Name Type Priority Associated Diagnoses Orde r Schedule FL WHO WRIST EXTENSION CONTROL NON MOLDED [place] Charge Routine Bilateral carpal tunnel syndrome Ordered: 10/20/2024 documented as of this encounter Results * [...] Ambrose PA-C NEUROLOGY ORDERABLES Yvonne watkins Result [facility] [place] [facility] documented in this encounter Visit Diagnoses Diagnosis Bilateral carpal tunnel syndrome- Primary Carpal tunnel syndrome Bilateral carpal tunnel syndrome Carpal tunnel syndrome documented in this encounter Care Teams Machine Spreader Relationship Specialty Start Date End Date Alan Beyer MD [address] [place] [address] PCP - General Family Medicine 10/05/24 documented as of this encounter
--- OUTSIDE RECORDS SUMMARY | 2024-11-03 11:12 | XMS_ITS | Encounter Summary ---
Author Organization [place] [address] Care Team Providers Care Interface Control Officer Name Role Phone Alan Beyer MD Primary Care Provider [phone] Reason for Visit * Reason Comments Flank Pain L flank pain since 9 a; +n Encounter Details Date Type Department Care Team (Late st Contact Info) Description 11/03/2024 11:12 AM EDT - 11/03/2024 2:08 PM EDT Emergency [facility] [place] [address] Aleks Cali MD [address] [place] [address] Left flank pain (Primary Dx) Discharge Disposition: Home or Self [...] Sign Reading Time Taken Comments Blood Pressure 129/84 11/03/2024 2:00 PM EDT Pulse 97 11/03/2024 11:15 AM EDT Temperature 36.5 C (97.7 F) 11/03/2024 11:06 AM EDT Respiratory Rate 20 11/03/2024 11:15 AM EDT Oxygen Saturation 98% 11/03/2024 2:00 PM EDT Inhaled Oxygen Concentration - - Weight 93.9 kg (207 lb) 11/03/2024 11:06 AM EDT Height - - Body Mass Index 34.45 05/28/2024 2:07 PM EST documented in this encounter Functional Status * Suicide Severity Rating Answer Date of Assessment Author No Risk 11/03/2024 11:05 AM EDT Monalisa Cortés RN * [place] Suicide Severity Rating Scale (Q shift for moderate and high) Question Answer Date of Assessment Author 1. In the past month, have y ou wished you were or wished you could go to sleep and not wake up? 0 11/03/2024 11:05 AM EDT Monalisa Cortés RN 2. In the past month, have y ou actually had any thoughts of killing yourself? (If no, skip to question 6) 0 11/03/2024 11:05 AM EDT Monalisa Cortés RN 6. Have you ever done anythi ng, started to do anything, or prepared to do anything to end your life? 0 11/03/2024 11:05 AM EDT Monalisa Cortés RN documented as of this encounter Discharge Instructions * Discharge Instructions* Ynes Zayas PA-C - 11/03/2024 1:57 PM EDT Alternate Tylenol and Motrin for pain. Take medication as prescribed for persistent pain. Do not drive or operate heavy machinery while taking muscle relaxants, as these can make you drowsy. Rest and avoid strenuous activity. Can alternate applying ice and heat to the effected area in 15-minute increments, several times daily. Drink plenty of fluids. Follow-up with your primary care provider soon as possible for recheck. Return to emergency department with worsening pain, persistent vomiting, fevers, or any other concerns. documented in this encounter Medications at Time [...] 07/27/2022 fluticasone propionate (FLONASE) 50 mcg/actuation Nasl Wallace, Suspension 06/05/2022 fUROsemide (LASIX) 20 mg Oral [...] face BID PRN. 60 g 2 05/28/2024 methocarbamoL (ROBAXIN) 750 mg Oral Tablet Take 1 Tablet by mouth 3 times daily as needed for Pain for up to 30 days. 15 Tablet 11/03/2024 metroNIDAZOLE (METROCREAM) 0.75 % Top CreamIndications: Rosacea [...] Inhaler 02/05/2023 documented as of this encounter Ordered Prescriptions Prescription Sig Dispense Quantity Refills Last Filled Start Date End Date methocarbamoL (ROBAXIN) 750 mg Oral Tablet Take 1 Tablet by mouth 3 times daily as needed for Pain for up to 30 days. 15 Tablet 11/03/2024 12/03/2024 documented in this encounter Discharge Disposition Disposition Code Departure Means Destination Comment s Home or Self Group Home documented in this encounter ED Notes * Faith Mojica RN - 11/03/2024 11:27 AM EDT Spoke with pharmacy regarding pain medication & allergies. Consulted provider. Provider aware and based on history (not true anaphylaxis and having taken dilaudid before in 2023) PT okay to try it. * Ynes Zayas PA-C - 11/03/2024 11:03 AM EDT Chief Complaint Patient presents with Flank Pain L flank pain since 9a; +n Patient seen for Dr. Cali. This patient is a 43-year-old female with past medical history significant for alcohol dependency and anxiety presenting for evaluation. Patient states that about 2 hours prior to arrival, she had just awoken for the day and had walked into the bathroom to void. As she urinated, she began with sudden onset left- sided flank pain. Describes it as severe, sharp, radiating into her groin. Rates it a 9 of 10 in intensity. Reports associated nausea with dry heaves but has not had any emesis. She did have an episode of incontinence since beginning with pain but denies any dysuria, hematuria, or urgency. She does have frequency. No known fevers. Last bowel movement was last night and it was normal for her. She has not taken any medication for her symptoms. She does report history of kidney stonesand states this feels very similar to prior episodes. No prior abdominopelvic surgical history. No concerns for . Denies any chest pain, shortness of breath, pain with breathing. She has no other complaints. Patient History Allergies Allergen Reactions Baclofen Hives hives and [...] swelling, itching, rash Sulfamethoxazole-Trimethoprim Other (See Comments) Home Medications: Prior to Admission medications Medication Sig Start Date End Date Last Dose Authorizing Provider busPIRone (BUSPAR) 15 mg Oral [...] Historical fluticasone propionate (FLONASE) 50 mcg/actuation Nasl Wallace, Suspension 06/05/22 Provider, Historical fUROsemide (LASIX) 20 [...] skin on the face BID PRN 05/28/24 Guthrie, Keara H, PA-C tocopherol acetate (VITAMIN E) 200 unit Oral Capsule Take 200 Units by mouth daily. Provider, Historical VENTOLIN HFA 90 mcg/actuation Inhl HFA Aerosol Inhaler 02/05/23 Provider, Historical Past Medical History: Past Medical History: Diagnosis Date Anxiety Carpal tunnel syndrome Kidney stones Social History: reports that she has never smoked. She has been exposed to tobacco smoke. She has never used smokeless tobacco. She reports that she does not currently use alcohol. She reports that she does not use drugs. E-Cigarettes (such as Vapes or Juul) E-Cigarette Use Current Every Day User Family History: No family history on file. Surgical History: History reviewed. No pertinent surgical history. Review of Systems Review of Systems Constitutional: Negative for chills and fever. HENT: Negative. Eyes: Negative. Respiratory: Negative for cough and shortness of breath. Cardiovascular: Negative for chest pain, palpitations and leg swelling. Gastrointestinal: Positive for nausea. Negative for abdominal pain, diarrhea and vomiting. Genitourinary: Positive for flank pain and frequency. Negative for difficulty urinating, dysuria, hematuria, menstrual problem and pelvic pain. Skin: Negative for rash. Neurological: Negative. Psychiatric/Behavioral: Negative. All other systems reviewed and are negative. Physical Exam Blood pressure (!) 160/104, pulse 95, temperature 97.7 ??F (36.5 ??C), temperature source Oral, weight 207 lb (93.9 kg), last menstrual period 01/16/2023, SpO2 95%, not currently . Physical Exam Vitals and nursing note reviewed. Constitutional: Appearance: She is well-developed. Comments: Nontoxic-appearing female in mild distress secondary to left-sided pain HENT: Head: Normocephalic and atraumatic. Right Ear: External ear normal. Left Ear: External ear normal. Nose: Nose normal. Mouth/Throat: Mouth: Mucous membranes are moist. Eyes: Conjunctiva/sclera: Conjunctivae normal. Pupils: Pupils are equal, round, and reactive to light. Cardiovascular: Rate and Rhythm: Normal rate and regular rhythm. Pulses: Normal pulses. Heart sounds: No murmur heard. Pulmonary: Effort: Pulmonary effort is normal. No respiratory distress. Breath sounds: Normal breath sounds. No wheezing. Abdominal: Comments: Abdomen is soft and nondistended, bowel sounds are active. Patient is nontender to palpation without any rebound tenderness or guarding. There is significant left-sided CVA tenderness. Musculoskeletal: Cervical back: Normal range of motion and neck supple. Lymphadenopathy: Cervical: No cervical adenopathy. Skin: General: Skin is warm and dry. Findings: No rash. Neurological: Mental Status: She is alert and oriented to person, place, and time. Procedures Radiology/EKG/Labs: Results for orders placed or performed during the hospital encounter of 11/03/24 CT ABD PEL ED FAST W CONTRAST Narrative CT ABDOMEN AND PELVIS WITH CONTRAST (FAST), 11/03/2024 12:23 PM CLINICAL HISTORY: -left flank pain, hx stones. COMPARISON: None. PROCEDURE COMMENTS: Multi-detector CT scanning of the abdomen and pelvis with multiplanar reformatting per expedited protocol. Isovue 370 IV contrast given as recorded in EPIC. Dose 1 : CT DLP Total : 558.16 mGycm DLP Spiral Max : 553.67 mGycm Maximum CTDI Vol : 10.82 mGy SSDE : 8.7642 mGy SSDE Diameter : 41.4 cm SSDE Source : Lat FINDINGS: LOWER THORAX: Lung bases unremarkable. ABDOMEN AND PELVIS: Liver, spleen, pancreas, kidneys, and adrenal glands unremarkable. No hydronephrosis. Unremarkable biliary system. No bowel obstruction or acute inflammatory process. No evidence of appendicitis. No abnormal mass, fluid, or adenopathy in the pelvis. No acute osseous abnormality. Impression No acute abnormality of the abdomen or pelvis. - Note: Radiology results need to be interpreted within a comprehensive clinical context. If you have questions about the radiology report, please contact the office of the ordering clinician. UA W/REFLEX TO CULTURE Specimen: Urine, Clean Catch Narrative The following orders were created for panel order UA W/REFLEX TO CULTURE. Procedure Abnormality Status --------- ------ URINALYSIS REFLEX[[id number]] Final result EXTRA BROUSSARD URINE CX[[id number]] Final result Please view results for these tests on the individual orders. URINALYSIS REFLEX Result Value Ref Range UA Color Yellow UA Appear Clear Clear UA Glucose Negative Negative mg/dL UA Ketones Negative Negative mg/dL UA Blood Negative Negative UA pH 6.0 5.0 - 8.0 pH UA Protein Negative Negative mg/dL UA Urobilinogen 0.2 <=1 mg/dL UA Bili Negative Negative UA Nitrite Negative Negative UA Leuk Est Negative Negative UA Spec Grav 1.010 1.001 - 1.035 no units CBC WITH DIFF Result Value Ref Range WBC 6.6 3.7 - 10.3 x10(3)/mcL RBC 3.56 (L) 3.90 - 5.20 x10(6)/mcL Hgb 11.6 11.2 - 15.7 g/dL Hct 34.9 34.0 - 45.0 % MCV 98.0 80.0 - 100.0 fL MCH 32.6 26.0 - 34.0 pg MCHC 33.2 30.7 - 35.5 g/dL RDW 12.4 <=14.9 % Platelet 264 155 - 369 x10(3)/mcL MPV 9.9 8.8 - 12.5 fL Neut Percent 61.1 % Imm Gran% 0.2 % Lymph Percent 28.5 % Petroleum Percent 7.6 % Eos Percent 2.1 % Baso Percent 0.5 % Neut # 4.0 1.6 - 6.1 x10(3)/mcL IMMGRAN# 0.0 0.0 - 0.1 x10(3)/mcL Lymph # 1.9 1.2 - 3.9 x10(3)/mcL Petroleum # 0.5 0.3 - 0.9 x10(3)/mcL Eos# 0.1 0.0 - 0.5 x10(3)/mcL Baso # 0.0 0.0 - 0.1 x10(3)/mcL COMPREHENSIVE METABOLIC PANEL Result Value Ref Range Sodium 138 136 - 145 mmol/L Potassium 4.5 3.5 - 5.0 mmol/L Chloride 104 98 - 107 mmol/L Total CO2 24 22 - 29 mmol/L Anion Gap 10 7 - 16 mmol/L Calcium 8.6 8.6 - 10.4 mg/dL Glucose Lvl 102 (H) 70 - 99 mg/dL BUN 13 6 - 20 mg/dL Creatinine 0.75 0.51 - 1.30 mg/dL Albumin 4.2 3.5 - 5.2 gm/dL Total Protein 7.2 6.4 - 8.3 gm/dL Bili Total <0.2 (L) 0.2 - 1.3 mg/dL ALT 13 <=41 U/L AST 20 <=40 U/L Alk Phos 93 36 - 123 U/L eGFR (CKD-EPIcr 2020) 102 >=60 mL/min/1.73 m2 HUMAN CHORIONIC GONADOTROPIN QUANTITATIVE Result Value Ref Range Hcg Quant <1 <5 mIU/mL Narrative Female (non-): 0-4.9 mIU/mL Female (postmenopausal): 0-8.1 mIU/mL Indeterminate values for (e.g., 5-25 mIU/mL) may be confirmed with a repeat test in 48-72hours. Values in should double every 2-3 days for the first six weeks. Ingestion of akil doses of biotin (>5 mg/day) taken within 8 hours of drawing blood sample can interfere with this immunoassay test. ED Course: Appropriate laboratory and radiology studies reviewed Patient presents as stated above and is seen for Dr. Cali. This is a nontoxic- appearing female presenting with left-sided flank pain, reports history of kidney stones. Exam findings discussed above.Vital signs are reviewed, she is hypertensive but suspect this is pain related, will monitor. Otherwise stable. Abdominal labs obtained along with urinalysis. IV access established with plans on obtaining CT imaging. Dilaudid administered for pain given listed allergies to morphine and oral narcotics. Reaction to morphine documented as anaphylaxis but patient denies this. States that she becomes extremely nauseated and acts like a major bitch with this medication. She is agreeable to receiving Dilaudid, which she has received in the past without issue per chart review (May 2023 with knee surgery). Zofran administered for nausea. Blood work is overall unremarkable. No leukocytosis, electrolyte derangement, or evidence of renal insufficiency. Urinalysis negative for blood or infectious markers. CT abdomen pelvis FAST with IV contrast obtained. No acute findings were identified on imaging. Results are discussed with the patient. She is still endorsing significant pain despite treatment with Dilaudid. Etiology of symptoms not exactly clear though I have very low concern for a surgical intra-abdominal or pelvic process. Etiology may be musculoskeletal in nature. With her extensive allergy list, pain control is difficult to achieve. Administered Robaxin and Inapsine. On final assessment, patient does appear much more comfortable. She endorses improvement in her pain. She is comfortable with plan for discharge and stable for such. Prescription for Robaxin is sent into preferred pharmacy. Otherwise encouraged supportive measures and close follow-up with PCP. She remained neurovascularly intact with stable vital signs throughout her ED stay. BP did improve with pain control and rest. All questions were answered and strict return precautions are provided. Patient verbalized understanding and is agreeable with plan. ED Clinical Impression: 1. Left flank pain Critical Care time MDM Medical Decision Making Condition at Discharge/Transfer from Department: Stable This chart was completed using voice recognition technology and may contain unintended errors Ynes Zayas PA-C 11/03/24 1421 Cosigned by Aleks Cali MD at 11/03/2024 3:05 PM EDT Associated attestation - Aleks Cali MD - 11/03/2024 3:05 PM EDT Attending Wholesale Manager Note: The patient presented with Chief Complaint Patient presents with Flank Pain L flank pain since 9a; +n . I was available for discussion with the PA/BOX STORAGE WORKER in regards to the patient's chief complaint, history of present illness, review of systems, and pertinent past medical history and social history. I was available for consultation with the PA/BOX STORAGE WORKER regarding the pertinent clinical information from the PA/BOX STORAGE WORKER performed physical exam, the patient's labs, radiographic studies and the treatment and disposition plan. This patient was seen by the PA/BOX STORAGE WORKER and I was available for consultation. No orders to display Aleks Cali MD This chart was completed using voice recognition technology and may contain unintended errors documented in this encounter Plan of Treatment Upcoming Encounters Date Type Department Care Team (Late st Contact Info) Description 11/19/2024 8:30 AM EDT Office Visit [facility] [address] [place] [address] Shira Ambrose PA-C [address] [place] [address] documented as of this encounter Procedures Procedure Name Priority Date/Time Associated Diagnosis Comments CT ABD PEL ED FAST W CONTRAST STAT 11/03/2024 12:23 PM EDT CBC WITH DIFF STAT 11/03/2024 11:36 AM EDT HUMAN CHORIONIC GONADOTROPIN QUANTITATIVE STAT 11/03/2024 11:36 AM EDT COMPREHENSIVE METABOLIC PANEL STAT 11/03/2024 11:36 AM EDT SALINE LOCK IV STAT 11/03/2024 11:21 AM EDT URINALYSIS REFLEX STAT 11/03/2024 11: 16 AM EDT UA W/REFLEX TO CULTURE STAT 11:16 AM EDT EXTRA BROUSSARD URINE CX STAT 11/03/2024 1 1:16 AM EDT documented in this encounter Results * CT ABD PEL ED FAST W CONTRAST (11/03/2024 12:23 PM EDT) Anatomical Region Laterality Modality Abdomen, Pelvis Computed Tomogra phy 11/03/2024 12:2 3 PM EDT Impressions 11/03/2024 12:41 PM EDT No acute abnormality of the abdomen or pelvis. - Note: Radiology results need to be interpreted within a comprehensive clinical context. If you have questions about the radiology report, please contact the office of the ordering clinician. Narrative 11/03/2024 12:[address] ABDOMEN AND PELVIS WITH CONTRAST (FAST), 11/03/2024 12:23 PM CLINICAL HISTORY: -left flank pain, hx stones. COMPARISON: None. PROCEDURE COMMENTS: Multi-detector CT scanning of the abdomen and pelvis with multiplanar reformatting per expedited protocol. Isovue 370 IV contrast given as recorded in EPIC. Dose 1 : CT DLP Total : 558.16 mGycm DLP Spiral Max : 553.67 mGycm Maximum CTDI Vol : 10.82 mGy SSDE : 8.7642 mGy SSDE Diameter : 41.4 cm SSDE Source : Lat FINDINGS: LOWER THORAX: Lung bases unremarkable. ABDOMEN AND PELVIS: Liver, spleen, pancreas, kidneys, and adrenal glands unremarkable. No hydronephrosis. Unremarkable biliary system. No bowel obstruction or acute inflammatory process. No evidence of appendicitis. No abnormal mass, fluid, or adenopathy in the pelvis. No acute osseous abnormality. Procedure Note Leslie Payne MD - 11/03/2024 CT ABDOMEN AND PELVIS WITH CONTRAST (FAST), 11/03/2024 12:23 PM CLINICAL HISTORY: -left flank pain, hx stones. COMPARISON: None. PROCEDURE COMMENTS: Multi-detector CT scanning of the abdomen and pelviswith multiplanar reformatting per expedited protocol. Isovue 370 IV contrastgiven as recorded in EPIC. Dose 1 : CT DLP Total : 558.16 mGycm DLP Spiral Max : 553.67 mGycm Maximum CTDI Vol : 10.82 mGy SSDE : 8.7642 mGy SSDE Diameter : 41.4 cm SSDE Source : Lat FINDINGS: LOWER THORAX: Lung bases unremarkable. ABDOMEN AND PELVIS: Liver, spleen, pancreas, kidneys, and adrenal glands unremarkable. No hydronephrosis. Unremarkable biliary system. No bowel obstruction or acute inflammatory process. No evidence ofappendicitis. No abnormal mass, fluid, or adenopathy in the pelvis. No acute osseous abnormality. IMPRESSION: No acute abnormality of the abdomen or pelvis. - Note: Radiology results need to be interpreted within a comprehensiveclinical context. If you have questions about the radiology report, please contactthe office of the ordering clinician. Ynes Zayas PA-C IMG CT ORDERABLES Final Res ult * HUMAN CHORIONIC GONADOTROPIN QUANTITATIVE (11/03/2024 11:36 AM EDT) Hcg Quant <1 <5 mIU/mL 11/03/2024 11:59 AM EDT [facility] Blood VENOUS BLOOD / Unknown Venipuncture / Unknown 11/03/2024 11:36 AM EDT 11/03/2024 11:42 AM EDT Narrative [facility] - 11/03/2024 11:59 AM EDT Female (non-): 0-4.9 mIU/mL Female (postmenopausal): 0-8.1 mIU/mL Indeterminate values for (e.g., 5-25 mIU/mL) may be confirmed with a repeat test in 48-72 hours. Values in should double every 2-3 days for the first six weeks. Ingestion of akil doses of biotin (>5 mg/day) taken within 8 hours of drawing blood sample can interfere with this immunoassay test. Ynes Zayas PA-C CHEMISTRY ORDERABLES Final Result [facility] [address] [place] [address] * (ABNORMAL) COMPREHENSIVE METABOLIC PANEL (11/03/2024 11:36 AM EDT) Sodium 138 136 - 145 mmol/L 11/03/2024 12:03 PM EDT [facility] Potassium 4.5 3.5 - 5.0 mmol/L 11/03/2024 12:03 PM EDT [facility] Chloride 104 98 - 107 mmol/L 11/03/2024 12:03 PM EDT [facility] Total CO2 24 22 - 29 mmol/L 11/03/2024 12:03 PM EDT [facility] Anion Gap 10 7 - 16 mmol/L 11/03/2024 12:03 PM EDT [facility] Calcium 8.6 8.6 - 10.4 mg/dL 11/03/2024 12:03 PM EDT [facility] Glucose Lvl 102(H) 70 - 99 mg/dL 11/03/2024 12:03 PM EDT [facility] BUN 13 6 - 20 mg/dL 11/03/2024 12:03 PM EDT [facility] Creatinine 0.75 0.51 - 1.30 mg/dL 11/03/2024 12:03 PM EDT [facility] Albumin 4.2 3.5 - 5.2 gm/dL 11/03/2024 12:03 PM EDT [facility] Total Protein 7.2 6.4 - 8.3 gm/dL 11/03/2024 12:03 PM EDT [facility] Bili Total <0.2(L) 0.2 - 1.3 mg/dL 11/03/2024 12:03 PM EDT [facility] ALT 13 <=41 U/L 11/03/2024 12:03 PM EDT [facility] AST 20 <=40 U/L 11/03/2024 12:03 PM EDT [facility] Alk Phos 93 36 - 123 U/L 11/03/2024 12:03 PM EDT [facility] eGFR (CKD-EPIcr 2020) 102 >=60 mL/min/1.7 3 m2 11/03/2024 12:03 PM EDT [facility] Comment:Estimated GFR was ca lculated using the CKD-EPIcr (2020) equation refit without race. The equation is recommended by the National Kidney Foundation - [place] [employer] of Nephrology Task Force. Blood VENOUS BLOOD / Unknown Venipuncture / Unknown 11/03/2024 11:36 AM EDT 11/03/2024 11:42 AM EDT Ynes Zayas PA-C CHEMISTRY ORDERABLES Final Result [facility] [address] [place] [address] * (ABNORMAL) CBC WITH DIFF (11/03/2024 11:36 AM EDT) WBC 6.6 3.7 - 10.3 x10(3)/mcL 11/03/2024 11:47 AM EDT [facility] RBC 3.56(L) 3.90 - 5.20 x10(6)/mcL 11/03/2024 11:47 AM EDT [facility] Hgb 11.6 11.2 - 15.7 g/dL 11/03/2024 11:47 AM EDT [facility] Hct 34.9 34.0 - 45.0 % 11/03/2024 11:47 AM EDT [facility] MCV 98.0 80.0 - 100.0 fL 11/03/2024 11:47 AM EDT [facility] MCH 32.6 26.0 - 34.0 pg 11/03/2024 11:47 AM EDT [facility] MCHC 33.2 30.7 - 35.5 g/dL 11/03/2024 11:47 AM EDT [facility] RDW 12.4 <=14.9 % 11/03/2024 11:47 AM EDT [facility] Platelet 264 155 - 369 x10(3)/mcL 11/03/2024 11:47 AM EDT [facility] MPV 9.9 8.8 - 12.5 fL 11/03/2024 11:47 AM EDT [facility] Neut Percent 61.1 % 11/03/2024 11:47 AM EDT [facility] Comment:Neutrophils equals s egs plus bands Imm Gran% 0.2 % 11/03/2024 11:47 AM EDT [facility] Comment:Automated count of m etamyelocytes, myelocytes and promyelocytes. Lymph Percent 28.5 % 11/03/2024 11:47 AM EDT [facility] Petroleum Percent 7.6 % 11/03/2024 11:47 AM EDT [facility] Eos Percent 2.1 % 11/03/2024 11:47 AM EDT [facility] Baso Percent 0.5 % 11/03/2024 11:47 AM EDT [facility] Neut # 4.0 1.6 - 6.1 x10(3)/mcL 11/03/2024 11:47 AM EDT [facility] Comment:Neutrophils equals s egs plus bands IMMGRAN# 0.0 0.0 - 0.1 x10(3)/mcL 11/03/2024 11:47 AM EDT [facility] Comment:Automated count of m etamyelocytes, myelocytes and promyelocytes. An absolute IG <0.1 is reported as 0.0. Lymph # 1.9 1.2 - 3.9 x10(3)/mcL 11/03/2024 11:47 AM EDT [facility] Petroleum # 0.5 0.3 - 0.9 x10(3)/mcL 11/03/2024 11:47 AM EDT [facility] Eos# 0.1 0.0 - 0.5 x10(3)/mcL 11/03/2024 11:47 AM EDT [facility] Baso # 0.0 0.0 - 0.1 x10(3)/mcL 11/03/2024 11:47 AM EDT [facility] Blood VENOUS BLOOD / Unknown Venipuncture / Unknown 11/03/2024 11:36 AM EDT 11/03/2024 11:42 AM EDT Ynes Zayas PA-C HEMATOLOGY ORDERABLES Final Result Performing Organization Address City/[facility]/ZIP Co de Phone Number [facility] [address] [facility] [place] [address] * EXTRA BROUSSARD URINE CX (11/03/2024 11:16 AM EDT) Urine STRUCTURE OF URINARY TRACT PROPER / Unknown 11/03/2024 11:16 AM EDT 11/03/2024 11:21 AM EDT Ynes Zayas PA-C MICROBIOLOGY - GENERAL ORDE RABLES Final Result Performing Organization Address [facility] de Phone Number [facility] [address] [facility] [place] [address] * URINALYSIS REFLEX (11/03/2024 11:16 AM EDT) UA Color Yellow 11/03/2024 11:24 AM EDT [facility] UA Appear Clear Clear 11/03/2024 11:24 AM EDT [facility] UA Glucose Negative Negative mg/dL 11/03/2024 11:24 AM EDT [facility] UA Ketones Negative Negative mg/dL 11/03/2024 11:24 AM EDT [facility] UA Blood Negative Negative 11/03/2024 11:24 AM EDT [facility] UA pH 6.0 5.0 - 8.0 pH 11/03/2024 11:24 AM EDT [facility] UA Protein Negative Negative mg/dL 11/03/2024 11:24 AM EDT [facility] UA Urobilinogen 0.2 <=1 mg/dL 11:24 AM EDT [facility] UA Bili Negative Negative 11/03/2024 11:24 AM EDT [facility] UA Nitrite Negative Negative 11/03/2024 11:24 AM EDT [facility] UA Leuk Est Negative Negative 11/03/2024 11:24 AM EDT [facility] UA Spec Grav 1.010 1.001 - 1.035 no units 11/03/2024 11:24 AM EDT [facility] Comment:Reference range keith d for random specimens only. Urine STRUCTURE OF URINARY TRACT PROPER / Unknown 11/03/2024 11:16 AM EDT 11/03/2024 11:21 AM EDT Ynes Zayas PA-C URINE ORDERABLES Final Resu lt [facility] [address] [place] [address] documented in this encounter Visit Diagnoses Diagnosis Left flank pain- Primary Abdominal pain, unspecified site documented in this encounter Administered Medications Inactive Administered Medications - up to 1 most recent administrations Medication Order MAR Action Action Date Dose Rate Site droPERidol (INAPSINE) injection 1.25 mg 1.25 mg, Intravenous, ONCE, 1 dose, On Sun11/03/24 at 1315 Given 11/03/2024 1:22 PM EDT 1.25 mg HYDROmorphone (DILAUDID) injection 1 mg 1 mg, Intravenous, ONCE, 1 dose, On Sun11/03/24 at 1130 Given 11/03/2024 11:36 AM EDT 1 mg iopamidoL (ISOVUE-370) 370 mg iodine /mL (76 %) injection (LOW) 100 mL 100 mL, Intravenous, ONCE PRN, 1 dose, Starting on Sun11/03/24 at 1213, Until Sun11/03/24 at 1223, Radiography/Imaging, Radiology Procedure, VESICANT , CT (Contrasts) Given 11/03/2024 12:23 PM EDT 100 mL methocarbamoL (ROBAXIN) tablet 1,000 mg 1,000 mg, Oral, ONCE, 1 dose, On Sun11/03/24 at 1315 Given 11/03/2024 1:22 PM EDT 1,000 mg ondansetron (ZOFRAN) injection 4 mg 4 mg, Intravenous, ONCE, 1 dose, On Sun11/03/24 at 1130 Given 11/03/2024 11:36 AM EDT 4 mg sodium chloride 0.9% IV line flush 50 mL 50 mL, Intravenous, at 999 mL/hr, PRN, Starting on Sun11/03/24 at 1121, Until Sun11/03/24 at 1808, Line Care, Flush with 50 mL after IVPB to insure complete administration of the dose. May use the saline infusion to back flush IVPB tubing as needed., Use this order to document priming and flushing IV line after medication administration. sodium chloride 0.9% syringe 5-10 mL 5-10 mL, Intravenous, PRN, Starting on Sun11/03/24 at 1121, Until Sun11/03/24 at 1808, Line Care, Flush with 5 mL saline pre/post IVP, and 5 mL prior to IVPB or blood product administration. Protocol for PERIPHERAL IV saline lock maintenance, flush with 3-5 mL saline syringe every 8 hours., Flush peripheral lines every 12 hours, central lines every 8 hours, and after IV medication sodium chloride 0.9% syringe Intravenous, ONCE PRN, 1 dose, Starting on Sun11/03/24 at 1213, Until Sun11/03/24 at 1223, Line Care, Flush peripheral lines every 12 hours, central lines every 8 hours, and after IV medication, CT (Contrasts) Given 11/03/2024 12:23 PM EDT documented in this encounter Discontinued Medications Medication Sig Discontinue Reason Start Date End Da te methocarbamoL (ROBAXIN) 750 mg Oral Tablet DELETE-Duplicate 07/18/2022 11/03/2024 documented as of this encounter Active and Recently Administered Medications Times are shown in EDT. Scheduled Medication Order 11/01/2024 11/02/2024 11/03/2024 droPERidol (INAPSINE) injection 1.25 mg (COMPLETED) 1.25 mg, Intravenous, ONCE, 1 dose, On Sun11/03/24 at 1315 1322 (Given - Provid er: Faith Mojica RN) HYDROmorphone (DILAUDID) injection 1 mg (COMPLETED) 1 mg, Intravenous, ONCE, 1 dose, On Sun11/03/24 at 1130 1136 (Given - Provid er: Faith Mojica RN) methocarbamoL (ROBAXIN) tablet 1,000 mg (COMPLETED) 1,000 mg, Oral, ONCE, 1 dose, On Sun11/03/24 at 1315 1322 (Given - Provid er: Faith Mojica RN) ondansetron (ZOFRAN) injection 4 mg (COMPLETED) 4 mg, Intravenous, ONCE, 1 dose, On Sun11/03/24 at 1130 1136 (Given - Provid er: Faith Mojica RN) PRN Medication Order 11/01/2024 11/02/2024 11/03/2024 iopamidoL (ISOVUE-370) 370 mg iodine /mL (76 %) injection (LOW) 100 mL (COMPLETED) 100 mL, Intravenous, ONCE PRN, 1 dose, Starting on Sun11/03/24 at 1213, Until Sun11/03/24 at 1223, Radiography/Imaging, Radiology Procedure, VESICANT , CT (Contrasts) 1223 (Given - Provid er: Donna Amaro, RT) sodium chloride 0.9% IV line flush 50 mL 50 mL, Intravenous, at 999 mL/hr, PRN, Starting on Sun11/03/24 at 1121, Until Sun11/03/24 at 1808, Line Care, Flush with 50 mL after IVPB to insure complete administration of the dose. May use the saline infusion to back flush IVPB tubing as needed., Use this order to document priming and flushing IV line after medication administration. sodium chloride 0.9% syringe 5-10 mL 5-10 mL, Intravenous, PRN, Starting on Sun11/03/24 at 1121, Until Sun11/03/24 at 1808, Line Care, Flush with 5 mL saline pre/post IVP, and 5 mL prior to IVPB or blood product administration. Protocol for PERIPHERAL IV saline lock maintenance, flush with 3-5 mL saline syringe every 8 hours., Flush peripheral lines every 12 hours, central lines every 8 hours, and after IV medication sodium chloride 0.9% syringe (COMPLETED) Intravenous, ONCE PRN, 1 dose, Starting on Sun11/03/24 at 1213, Until Sun11/03/24 at 1223, Line Care, Flush peripheral lines every 12 hours, central lines every 8 hours, and after IV medication, CT (Contrasts) 1223 (Given - Provid er: Donna Amaro, RT) documented in this encounter Orders Medications Ordered That Todd ht Not Have Been Administered Count Last Ordered Date First Ordered Date sodium chloride 0.9% IV line flush 50 mL 1 11/03/2024 sodium chloride 0.9% syringe 5-10 mL 1 10/13 IV Count Last Ordered Date First Orde red Date SALINE LOCK IV 1 11/03/2024 documented in this encounter Care Teams Interface Control Officer Relationship Specialty Start Date End Date Alan Beyer MD [address] [place] [address] PCP - General Family Medicine 10/05/24 documented as of this encounter
--- OUTSIDE RECORDS SUMMARY | 2024-11-04 09:10 | XMS_ITS | Encounter Summary ---
Author Organization [place] [address] Care Team Providers Care Cardboard Cutter Name Role Phone Alan Beyer MD Primary Care Provider [phone] Reason for Referral * EMG (Routine) - AFF Authorization Not Needed Specialty Diagnoses / Procedures Referred By Contact Referred To Contact Psychiatry & Neurology-Neurology / Electromyography Diagnoses Bilateral carpal tunnel syndrome Procedures EMG Shira Ambrose PA-C [address] [place] [address] Phone: tel: fax: Anshu Rojas MD [address] [place] [address] Phone: tel: fax: Referral ID Status Reason Start Date Expiration Date Visits Requested Visits Authorized [id number] AFF Authorization Not Needed 10/20/2024 10/20/2025 1 1 Reason for Visit * EMG (Routine) - AFF Authorization Not Needed Specialty Diagnoses / Procedures Referred By Contact Referred To Contact Psychiatry & Neurology-Neurology / Electromyography Diagnoses Bilateral carpal tunnel syndrome Procedures EMG Shira Ambrose PA-C [facility] [place] [address] Phone: tel: fax: Anshu Rojas MD [address] [place] [address] Phone: tel: fax: Referral ID Status Reason Start Date Expiration Date Visits Requested Visits Authorized [id number] AFF Authorization Not Needed 10/20/2024 10/20/2025 1 1 Encounter Details Date Type Department Care Team (Latest Contact Info) Description 11/04/2024 9:10 AM EDT - 11/04/2024 11:59 PM EDT Hospital Encounter [facility] EMG [address] [place] [address] Emg, Rojas Edg Bilateral carpal tunnel syndrome [...] 07/27/2022 fluticasone propionate (FLONASE) 50 mcg/actuation Nasl [place], Suspension 06/05/2022 fUROsemide (LASIX) 20 mg Oral [...] [facility] [address] [place] [address] Shira Ambrose PA-C [address] [place] [address] documented as of this encounter Procedures Procedure [...] us Shira Ambrose PA-C NEUROLOGY ORDERABLES Yvonne l Result [facility] documented in this encounter Visit Diagnoses Diagnosis Bilateral carpal tunnel syndrome Carpal tunnel syndrome documented in this encounter Care Teams Cardboard Cutter Relationship Specialty Start Date End Date Alan Beyer MD [address] [place] [address] PCP - General Family Medicine 10/05/24 documented as of this encounter
--- OUTSIDE RECORDS SUMMARY | 2024-11-05 10:16 | XMS_ITS | Encounter Summary ---
Author Organization [employer] Address [address] [place] [address] Care Team Providers Care Assurance Engineer Name Role Phone Alan Beyer MD Primary Care Provider [phone] Encounter Details Date Type Department Care Team (Late st Contact Info) Description 02/08/2021 Transcribed Document [facility] [place] [facility] [place] [address] ProviderJessenia MD [address] [place], [place] [address] Social History Tobacco Use Types Packs/Day Years Used Date Smoking Tobacco: Never Assessed Comments Unknown Sex and Gender Information Value Date Recorded Sex Assigned at Not on file Legal Sex Female 4:28 PM CDT Gender Identity Not on file Sexual Orientation Not on file documented as of this encounter Miscellaneous Notes * Cerner Conversion Note - Jessenia Alvarez MD - 02/08/2021 11:02 PM CDT ED Discharge Entered On: 02/08/2021 23:02 EDT Performed On: 02/08/2021 23:02 EDT by John Tavarez RN-PATIENT CARE BEDSIDE NON-EXEMPT Discharge Process Patient Disposition : Discharge Personal Belongings With Patient : Yes Patient Education Completed : Yes Teaching Evaluation : Returns demonstration, Verbalizes understanding IV Discontinued : Yes Nursing Documentation Completed : Yes John Tavarez RN-PATIENT CARE BEDSIDE NON-EXEMPT - 02/08/2021 23:02 EDT ED Discharge Discharge To : Home without planned follow-up Mode Of Departure : Ambulatory Accompanied By : Unaccompanied Discharge Instructions Reviewed With, Opportunity For Questions Given : Patient Prescriptions Given to Patient : No John Tavarez, RN-PATIENT CARE BEDSIDE NON-EXEMPT - 02/08/2021 23:02 EDT Electronically signed by Trevon Bhatia Conversion Professor Of Sport Management Cerner at 08/31/2022 5:03 PM CDT documented in this encounter Plan of Treatment Not on file documented as of this encounter Visit Diagnoses Not on filedocumented in this encounter Care Teams Assurance Engineer Relationship Specialty Start Date End Date Alan Beyer MD [address] [place] [address] PCP - General Family Medicine 06/08/23 documented as of this encounter
--- OUTSIDE RECORDS SUMMARY | 2024-11-05 10:16 | XMS_ITS | Encounter Summary ---
Author Organization [employer] Address [address] [place] [address] Care Team Providers Care Precision Jig Grinder Name Role Phone Alan Beyer MD Primary Care Provider [phone] Encounter Details Date Type Department Care Team (Late st Contact Info) Description 12/12/2021 Transcribed Document [facility] [place] Family [place] [facility] [place] [address] ProviderJessenia MD [address] [place], [place] [id number] Social History Tobacco Use Types Packs/Day Years Used Date Smoking Tobacco: Never Assessed Comments Unknown Sex and Gender Information Value Date Recorded Sex Assigned at Not on file Legal Sex Female 4:28 PM CDT Gender Identity Not on file Sexual Orientation Not on file documented as of this encounter Miscellaneous Notes * Cerner Conversion Note - Jessenia ProviderMD - 12/12/2021 10:01 AM CDT ED Assessment Entered On: 12/12/2021 10:52 EDT Performed On: 12/12/2021 10:15 EDT by Justin Montes, ore mixer Quick Look Assessment Level of Consciousness : Alert, Awake Affect/Behavior : Appropriate, Cooperative, Anxious Orientation : Oriented x 4 Skin Temperature : Warm Skin Description : Normal for ethnicity Justin Montes Rn - 12/12/2021 10:51 EDT ED General-Functional Assess Information Obtained From : Patient Preferred Communication Mode : Verbal Communication Barrier : None Primary Language : Namibian Any Spiritual/Cultural Needs or Requests : No Currently in Unsafe Situation : No Justin Montes Rn - 12/12/2021 10:51 EDT Social Habits Smoking Status : 4 or less cigarettes(less than 1/4 pack)/day in last 30 days Smokeless Tobacco Status : Never Desires Tobacco Cessation Medication : No Reason for No Tobacco Cessation Medication : Refuses FDA approved medications Desires Tobacco Cessation Calc : 1 Montes, Anderson Elver Garrett - 12/12/2021 10:51 EDT Social History (As Of: 12/12/2021 10:52:39 EDT) Tobacco: 4 or less cigarettes(less than 1/4 pack)/day in last 30 days Smoking Status. Never Smokeless Tobacco Status. (Last Updated: 05/03/2020 15:34:43 EST by Jyoti Frazier Rn) 10 or more cigarettes (1/2 pack or more)/day in last 30 days Smoking Status. Smokeless tobacco user within last 30 days Smokeless Tobacco Status. vap Smokeless Tobacco Use History. Years of Use: 17. (Last Updated: 05/03/2020 15:35:18 EST by Jyoti Frazier Rn) Alcohol: Alcohol Use History No. Alcohol Use Frequency Rarely. (Last Updated: 05/03/2020 15:35:31 EST by Jyoti Frazier Rn) Alcohol Use History No. (Last Updated: 05/24/2018 10:39:04 EST by Breanna Ivey, ELVER) Total Drinks/Week: 2. Date/Time of Last Drink: 1 week ago. Alcohol Use Frequency Monthly. (Last Updated: 07/13/2021 14:43:49 EST by Martita Skinner RN-PATIENT CARE BEDSIDE NON-EXEMPT) Alcohol Use History Yes. Days/Week: 7. # Drinks/Day: 1. Total Drinks/Week: 7. Date/Time of Last Drink: 09/12/21. Use in Last 12 Months: Yes. Alcohol Use Frequency Socially. (Last Updated: 09/14/2021 13:17:49 EDT by VANDANA KHALIL RN-PATIENT CARE BEDSIDE NON-EXEMPT) Substance Abuse: Drug Use Hx: No. Use in Last 12 Months: No. (Last Updated: 07/26/2015 22:29:17 EDT by ERICKA ISSA RN) Drug Use Hx: No. Use in Last 12 Months: No. (Last Updated: 05/24/2018 10:39:04 EST by Breanna Ivey, RN) Nutrition/Health: Regular (Last Updated: 05/24/2018 10:39:04 EST by Breanna Ivey, RN) Respiratory Respiratory Assessment WDL : WDL Justin Montes Rn - 12/12/2021 10:51 EDT Neurologic ASMT, ED Neurologic Assessment WDL : WDL with exceptions (Comment: PT c/o not feeling like myself pt states shes in a fog [Justin Montes Rn - 12/12/2021 10:51 EDT] ) Justin Montes Rn - 12/12/2021 10:51 EDT Electronically signed by [facility], [facility] Conversion Information Systems Supervisor Cerner at 08/31/2022 5:15 PM CDT documented in this encounter Plan of Treatment Not on file documented as of this encounter Visit Diagnoses Not on filedocumented in this encounter Care Teams Precision Jig Grinder Relationship Specialty Start Date End Date Alan Beyer MD [address] [place] [address] PCP - General Family Medicine 06/08/23 documented as of this encounter
--- OUTSIDE RECORDS SUMMARY | 2024-11-05 10:16 | XMS_ITS | Encounter Summary ---
Author Organization [employer] Address [address] [place] [address] Care Team Providers Care Seismograph Operator Name Role Phone Alan Beyer MD Primary Care Provider [phone] Encounter Details Date Type Department Care Team (Late st Contact Info) Description 12/12/2021 Transcribed Document [facility] [place] Family Medicine [facility] [place] [address] ProviderJessenia MD [address] [place], [place] [address] Social History Tobacco Use Types Packs/Day Years Used Date Smoking Tobacco: Never Assessed Comments Unknown Sex and Gender Information Value Date Recorded Sex Assigned at Not on file Legal Sex Female 4:28 PM CDT Gender Identity Not on file Sexual Orientation Not on file documented as of this encounter Miscellaneous Notes * Cerner Conversion Note - Jessenia Alvarez MD - 12/12/2021 12:49 PM CDT ED Discharge Entered On: 12/12/2021 12:50 EDT Performed On: 12/12/2021 12:49 EDT by Dennise Trejo RN Discharge Process Patient Disposition : Discharge Personal Belongings With Patient : Yes Patient Education Completed : Yes Teaching Evaluation : Verbalizes understanding IV Discontinued : Not applicable Dennise Trejo RN - 12/12/2021 12:49 EDT ED Discharge Discharge To : Home with ambulatory/outpatient follow-up Mode Of Departure : Private vehicle Discharge Instructions Reviewed With, Opportunity For Questions Given : Patient Prescriptions Given to Patient : No Medications Given to Patient : No Work/school Release Given : Yes Dennise Trejo ELVER - 12/12/2021 12:49 EDT Electronically signed by [facility] Conversion Candy Separator Hard Cerner at 08/31/2022 5:13 PM CDT documented in this encounter Plan of Treatment Not on file documented as of this encounter Visit Diagnoses Not on filedocumented in this encounter Care Teams Seismograph Operator Relationship Specialty Start Date End Date Alan Beyer MD [address] [place] [address] PCP - General Family Medicine 06/08/23 documented as of this encounter
--- OUTSIDE RECORDS SUMMARY | 2024-11-05 10:16 | XMS_ITS | Encounter Summary ---
Author Organization [employer] Address [address] [place] [address] Care Team Providers Care Quality Reviewer Name Role Phone Alan Beyer MD Primary Care Provider [phone] Encounter Details Date Type Department Care Team (Late st Contact Info) Description 12/12/2021 Transcribed Document [facility] [place] [facility] [place] [address] ProviderJessenia MD [address] [place] [address] Social History Tobacco Use Types Packs/Day Years Used Date Smoking Tobacco: Never Assessed Comments Unknown Sex and Gender Information Value Date Recorded Sex Assigned at Not on file Legal Sex Female 4:28 PM CDT Gender Identity Not on file Sexual Orientation Not on file documented as of this encounter Miscellaneous Notes * Cerner Conversion Note - Jessenia ProviderMD - 12/12/2021 12:43 PM CDT [address] [address] Visit Date/Time: 12/12/2021 12:43:10 CHARLINE BOND The above patient was seen in the hospital today and needs to be excused from work/school until Return to Work/School Date: 12/14/2021 Electronically signed by Jannette [facility] Conversion Radio Producer Cerner at 08/31/2022 5:10 PM CDT documented in this encounter Plan of Treatment Not on file documented as of this encounter Visit Diagnoses Not on filedocumented in this encounter Care Teams Quality Reviewer Relationship Specialty Start Date End Date Alan Beyer MD [address] [place] [address] PCP - General Family Medicine 06/08/23 documented as of this encounter
--- OUTSIDE RECORDS SUMMARY | 2024-11-05 10:16 | XMS_ITS | Encounter Summary ---
Author Organization [employer] Address [address] [place] [address] Care Team Providers Care Plc Controls Engineer Name Role Phone Alan Beyer MD Primary Care Provider [phone] Encounter Details Date Type Department Care Team (Late st Contact Info) Description 12/12/2021 Transcribed Document [facility] [place] [facility] [place] [address] ProviderJessenia MD [address] [place], [place] [address] Social History Tobacco Use Types Packs/Day Years Used Date Smoking Tobacco: Never Assessed Comments Unknown Sex and Gender Information Value Date Recorded Sex Assigned at Not on file Legal Sex Female 4:28 PM CDT Gender Identity Not on file Sexual Orientation Not on file documented as of this encounter Miscellaneous Notes * Cerner Conversion Note - Jessenia Alvarez MD - 12/12/2021 10:01 AM CDT [place] Suicide Severity Rating Scale (C-SSRS) Entered On: 12/12/2021 10:52 EDT Performed On: 12/12/2021 10:15 EDT by Justin Montes Rn [place] Suicide Severity Rating Scale (C-SSRS) CSSRS Past Month Wish to be : No CSSRS Past Month Suicidal Thoughts : No CSSRS Lifetime Suicide Behavior : No Suicide Severity Rating Score : 0 Suicide Severity Rating : No Additional Care Required at this time Justin Montes Rn - 12/12/2021 10:51 EDT documented in this encounter Plan of Treatment Not on file documented as of this encounter Visit Diagnoses Not on filedocumented in this encounter Care Teams Plc Controls Engineer Relationship Specialty Start Date End Date Alan Beyer MD [address] [place] [address] PCP - General Family Medicine 06/08/23 documented as of this encounter
--- OUTSIDE RECORDS SUMMARY | 2024-11-05 10:16 | XMS_ITS | Encounter Summary ---
Author Organization [employer] Address [address] [place] [address] Care Team Providers Care Pitching Coach Name Role Phone Alan Beyer MD Primary Care Provider [phone] Encounter Details Date Type Department Care Team (Late st Contact Info) Description 12/12/2021 Transcribed Document [facility] [place] [facility] [place] [address] ProviderJessenia MD [address] [place], [place] [address] Social History Tobacco Use Types Packs/Day Years Used Date Smoking Tobacco: Never Assessed Comments Unknown Sex and Gender Information Value Date Recorded Sex Assigned at Not on file Legal Sex Female 4:28 PM CDT Gender Identity Not on file Sexual Orientation Not on file documented as of this encounter Miscellaneous Notes * Cerner Conversion Note - Jessenia ProviderMD - 12/12/2021 12:30 PM CDT Electronically signed by [facility] Conversion Comb Tender Cerner at 08/31/2022 5:21 PM CDT documented in this encounter Plan of Treatment Not on file documented as of this encounter Visit Diagnoses Not on filedocumented in this encounter Care Teams Pitching Coach Relationship Specialty Start Date End Date Alan Beyer MD [address] [place] [address] PCP - General Family Medicine 06/08/23 documented as of this encounter
--- OUTSIDE RECORDS SUMMARY | 2024-11-05 10:16 | XMS_ITS | Encounter Summary ---
Author Organization [employer] Address [address] [place] [place] [address] Care Team Providers Care Tower Director Name Role Phone Alan Beyer MD Primary Care Provider [phone] Encounter Details Date Type Department Care Team ([facility] st Contact Info) Description 02/08/2021 Transcribed Document [facility] [place] Family [place] [facility] [place] [address] ProviderJessenia MD [address] [place], [place] [address] Social History Tobacco Use Types Packs/Day Years Used Date Smoking Tobacco: Never Assessed Comments Unknown Sex and Gender Information Value Date Recorded Sex Assigned at Not on file Legal Sex Female 4:28 PM CDT Gender Identity Not on file Sexual Orientation Not on file documented as of this encounter Miscellaneous Notes * Cerner Conversion Note - Jessenia Alvarez MD - 02/08/2021 10:51 PM CDT SARS-CoV-2 (COVID19 PCR) - - Not Detected 02/08/2021 22:31 02/08/2021 22:51 (JENNIFER HOWELL PA) Reviewed by Provider, No further action required documented in this encounter Plan of Treatment Not on file documented as of this encounter Visit Diagnoses Not on filedocumented in this encounter Care Teams Tower Director Relationship Specialty Start Date End Date Alan Beyer MD [address] [place] [address] PCP - General Family Medicine 06/08/23 documented as of this encounter
--- OUTSIDE RECORDS SUMMARY | 2024-11-05 10:16 | XMS_ITS | Encounter Summary ---
Author Organization [employer] Address [address] [place] [address] Care Team Providers Care School Plant Consultant Name Role Phone Alan Beyer MD Primary Care Provider [phone] Encounter Details Date Type Department Care Team (Late st Contact Info) Description 06/13/2023 Surgery Prep [facility] Surgery Department [address] [place] [address] Yamil Rehman MD [address] [facility] 2nd [place] [address] Social History Tobacco Use Types Packs/Day Years Used Date Smoking Tobacco: Former Smokeless Tobacco: Never Alcohol Use Standard Drinks/Week Comments Not Currently 0 (1 standard drink = 0.6 oz pur e alcohol) Interpersonal Safety Answer Date Record ed Family or friends hurt you Not on file 05/23 Family or friends insult you Not on file 02/2024 Family or friends threaten you Not on file 0 05/23/2023 Family or friends scream or curse at you Not on file 05/23/2023 Housing Stability Answer Date Recorded Living situation today Not on file Living situation problems Not on file 2023 Food Insecurity Answer Date Recorded Food run out past 12 months Not on file 05/14 Food did not last past 12 months Not on file 05/23/2023 Employment Answer Date Recorded Help finding and keeping a job Not on file 0 05/23/2023 Family and Community Support Answer Himanshu e Recorded Help with Day to Day Activities Not on file 05/23/2023 Feeling Lonely or Isolated Not on file 05/23 Educational Attainment Answer Date Manny rded Speak language other than Prydeinig at home Not on file 05/23/2023 Want help with school or training Not on file 05/23/2023 Depression Answer Date Recorded PHQ-2 Risk Not on file 05/23/2023 Disabilities Answer Date Recorded Difficulty concentrating Not on file 024 Difficulty doing errands alone Not on file 0 05/23/2023 Substance Use Answer Date Recorded Used prescription meds for non-medical reasons N ot on file 05/23/2023 Used illegal drugs past 12 months Not on file 05/23/2023 Comments Unknown Sex and Gender Information Value Date Recorded Sex Assigned at Not on file Legal Sex Female 4:28 PM CDT Gender Identity Not on file Sexual Orientation Not on file documented as of this encounter Plan of Treatment Not on file documented as of this encounter Visit Diagnoses Not on filedocumented in this encounter Care Teams School Plant Consultant Relationship Specialty Start Date End Date Alan Beyer MD [address] [place] [address] PCP - General Family Medicine 06/08/23 documented as of this encounter
--- OUTSIDE RECORDS SUMMARY | 2024-11-05 10:16 | XMS_ITS | Encounter Summary ---
Author Organization [employer] Address [address] [address] Care Team Providers Care Distance Learning Program Coordinator Name Role Phone Alan Beyer MD Primary Care Provider [phone] Encounter Details Date Type Department Care Team (Late st Contact Info) Description 02/08/2021 Transcribed Document [facility] [place] Family [place] [address] ProviderJessenia MD [address] [place], [place] [address] Social History Tobacco Use Types Packs/Day Years Used Date Smoking Tobacco: Never Assessed Comments Unknown Sex and Gender Information Value Date Recorded Sex Assigned at Not on file Legal Sex Female 4:28 PM CDT Gender Identity Not on file Sexual Orientation Not on file documented as of this encounter Miscellaneous Notes * Cerner Conversion Note - Jessenia Alvarez MD - 02/08/2021 5:59 PM CDT ED Assessment Entered On: 02/08/2021 22:12 EDT Performed On: 02/08/2021 22:10 EDT by John Tavarez RN-PATIENT CARE BEDSIDE NON-EXEMPT ED Quick Look Assessment Level of Consciousness : Alert, Awake Affect/Behavior : Appropriate, Calm, Cooperative Orientation : Oriented x 4 Skin Temperature : Warm Skin Description : Normal for ethnicity John Tavarez RN-PATIENT CARE BEDSIDE NON-EXEMPT - 02/08/2021 22:10 EDT ED General-Functional Assess Information Obtained From : Patient Preferred Communication Mode : Verbal Communication Barrier : None Primary Language : Kyrgyz Any Spiritual/Cultural Needs or Requests : No Currently in Unsafe Situation : No John Tavarez RN-PATIENT CARE BEDSIDE NON-EXEMPT - 02/08/2021 22:10 EDT Social Habits Smoking Status : 4 or less cigarettes(less than 1/4 pack)/day in last 30 days Smokeless Tobacco Status : Never Desires Tobacco Cessation Medication : No Reason for No Tobacco Cessation Medication : ED/procedural patient only Desires Tobacco Cessation Calc : 1 John Tavarez RN-PATIENT CARE BEDSIDE NON-EXEMPT - 02/08/2021 22:10 EDT Social History (As Of: 02/08/2021 22:12:34 EDT) Tobacco: 4 or less cigarettes(less than [...] 05/24/2018 10:39:04 EST by Breanna Ivey, ELVER) Substance Abuse: Drug Use Hx: No. Use in Last 12 Months: No. (Last Updated: 07/26/2015 22:29:17 EDT by ERICKA ISSA RN) Drug Use Hx: No. Use in Last 12 Months: No. (Last Updated: 05/24/2018 10:39:04 EST by Breanna Ivey, ELVER) Nutrition/Health: Regular (Last Updated: 05/24/2018 10:39:04 EST by Breanna Ivey, ELVER) Cardiovascular ASMT, ED Cardiovascular Assessment WDL : WDL with exceptions Cardiovascular Symptoms : Dyspnea at rest, Dyspnea with activity Heart Rhythm : Regular John Tavarez RN-PATIENT CARE BEDSIDE NON-EXEMPT - 02/08/2021 22:10 EDT Respiratory Respiratory Assessment WDL : WDL with exceptions Cough : Non-productive John Tavarez RN-PATIENT CARE BEDSIDE NON-EXEMPT - 02/08/2021 22:10 EDT Musculoskeletal Musculoskeletal Assessment WDL : WDL John Tavarez RN-PATIENT CARE BEDSIDE NON-EXEMPT - 02/08/2021 22:10 EDT Neurologic ASMT, ED Neurologic Assessment WDL : WDL with exceptions Neurological Symptoms : Headache Level of Consciousness : Alert, Awake Affect/Behavior : Appropriate, Calm, Cooperative Orientation : Oriented x 4 John Tavarez RN-PATIENT CARE BEDSIDE NON-EXEMPT - 02/08/2021 22:10 EDT Electronically signed by [facility], [facility] Conversion Meat Sales And Storage Manager Cerner at 08/31/2022 5:23 PM CDT documented in this encounter Plan of Treatment Not on file documented as of this encounter Visit Diagnoses Not on filedocumented in this encounter Care Teams Distance Learning Program Coordinator Relationship Specialty Start Date End Date Alan Beyer MD [address] [place] [address] PCP - General Family Medicine 06/08/23 documented as of this encounter
--- OUTSIDE RECORDS SUMMARY | 2024-11-05 10:16 | XMS_ITS | Encounter Summary ---
Author Organization [employer] Address [address] [place] [address] Care Team Providers Care Network Planner Name Role Phone Alan Beyer MD Primary Care Provider [phone] Encounter Details Date Type Department Care Team (Late st Contact Info) Description 02/08/2021 Transcribed Document [facility] [place] Family [place] [address] ProviderJessenia MD [address] [place] [address] [phone] Social History Tobacco Use Types Packs/Day Years Used Date Smoking Tobacco: Never Assessed Comments Unknown Sex and Gender Information Value Date Recorded Sex Assigned at Not on file Legal Sex Female 4:28 PM CDT Gender Identity Not on file Sexual Orientation Not on file documented as of this encounter Miscellaneous Notes * Cerner Conversion Note - Jessenia Alvarez MD - 02/08/2021 8:47 PM CDT Patient: CHARLINE BOND Age: 40 years Sex: Female : 1980 Associated Diagnoses: URI (upper respiratory infection); Dyspnea Author: GIANCARLO HALEY MD-EMR Basic Information Time seen: Date & time 02/08/2021 20:08:00. History source: Patient. Arrival mode: Private vehicle, walking. History limitation: None. Additional information. History of Present Illness The patient presents with cough and Shortness of breath. The onset was 1 days ago. The course/duration of symptoms is constant and fluctuating in intensity. Character dry. The degree at onset was minimal. The degree at present is minimal. The exacerbating factor is none. The relieving factor is none. Prior episodes: occasional. Therapy today: see nurses notes. Associated symptoms: shortness of breath, nasal congestion, denies chest pain, denies sore throat, denies rhinorrhea, denies hoarse voice, denies fever and denies chills. Patient complaint of having cough congestion, headache, since yesterday, patient states she had Covid 3 weeks ago, and was tested negative later on, patient also had Pfizer vaccine first dose on February 03, patient started having cough congestion, shortness of breath, headache since yesterday, patient states she called her primary care physician, who told her to go to the emergency room to make sure she does not have blood clots in her lungs, patient denies any recent travel or surgery, no chest pain, no fever or chills, no vomiting, no diarrhea, no family history of thromboembolism, patient had history of hysterectomy, does not take any hormone replacement. Review of Systems Constitutional symptoms: No fever, no chills, no decreased activity. Skin symptoms: No rash, no pruritus, no pires, no petechiae, no lesion. Eye symptoms: No recent vision problems, no pain, no discharge. ENMT symptoms: Nasal congestion, no ear pain, no sore throat. Respiratory symptoms: Cough, No shortness of breath, Cardiovascular symptoms: No chest pain, no syncope, no diaphoresis, no peripheral edema. Gastrointestinal symptoms: No abdominal pain, no vomiting, no diarrhea. Genitourinary symptoms: No dysuria, no hematuria. Musculoskeletal symptoms: No back pain, no Muscle pain, no Joint pain. Neurologic symptoms: Headache, no dizziness, no altered level of consciousness, no numbness, no tingling, no weakness. Psychiatric symptoms: No anxiety, no depression. Endocrine symptoms: No polyuria, Hematologic/Lymphatic symptoms: Bleeding tendency negative, Allergy/immunologic symptoms: No seasonal allergies, Additional review of systems information: No recent travel or surgery. Denies IVDA No history of trauma or injury No other friend/contact/family member sick with similar symptoms Denies eating any culprit food Denies any problem with taste or smell -NO TRAVEL OR EXPOSURE TO POTENTIAL OR DIAGNOSED COVID-19 VIRUS . Health Status Medications: Per nurse's notes. Immunizations: Per nurse's notes. Menstrual history: Hysterectomy. Past Medical/ Family/ Social History Medical history Reviewed as documented in chart. Genitourinary: renal stone. Neurological: migraine. Psychiatric: anxiety. Surgical history: Clavicle ([id number]). Tympanostomy ([id number]). Adenoids ([id number]). shoulder surgery. Gallbladder absent ([id number]). Tubal ligation ([id number]). Hysterectomy ([id number]). Right knee ([id number]). Comments: 05/03/2020 15:32 Jyoti Tilley Rn menisectomy, Reviewed as documented in chart. Family history: Heart attack Father Sister Coronary heart disease Father Sister , Reviewed as documented in chart. Social history: Social & Psychosocial Habits Alcohol 05/24/2018 Alcohol Use History, Social Habits No 05/03/2020 Alcohol Use History, Social Habits No Alcohol Use Frequency Rarely Nutrition/Health 05/24/2018 Type of diet: Regular Substance Abuse 07/26/2015 Recreational Drug Use History No Recreational Drug Use Last 12 Months No 05/24/2018 Recreational Drug Use History No Recreational Drug Use Last 12 Months No Tobacco 05/03/2020 Smoking Status 4 or less cigarettes(less Smokeless Tobacco Status Never 05/03/2020 Smoking Status 10 or more cigarettes (1/ Smokeless Tobacco Status Smokeless tobacco user wi Smokeless Tobacco Use History vap Years of Tobacco Use 17 , Reviewed as documented in chart. Problem list: Active Problems (6) Anxiety Endometriosis, vagina Kidney stones Migraine S/P hysterectomy Shoulder pain, left , per nurse's notes. Physical Examination Vital Signs Oxygen saturation. General: Alert, no acute distress. Skin: Warm, dry, pink, intact, no pallor, no rash, not cyanotic, not cool, not pale. Head: Normocephalic, atraumatic. Neck: Supple. Eye: Normal conjunctiva. Ears, nose, mouth and throat: Oral mucosa moist, no pharyngeal erythema or exudate, Hearing unchanged. Cardiovascular: Regular rate and rhythm, No murmur, Normal peripheral perfusion, No edema, no cardiac rub, no click. Respiratory: Lungs are clear to auscultation, respirations are non-labored, breath sounds are equal, Symmetrical chest wall expansion. Chest wall: No tenderness, No deformity. Back: Nontender, Normal range of motion, Normal alignment, no step-offs. Musculoskeletal: Normal ROM, normal strength, no tenderness, no swelling, no deformity, BILATERAL HIPS/KNEES/ANKLES/FEET: No swelling, no redness, no tenderness, ROM full, no abnormal movement, no laxity of the ligaments BILATERAL THIGHS/LEGS: No Swelling, no redness, no tenderness. No signs of DVT BILATERAL DP & PT Arteries normal, Capillary Refil brisk. Gastrointestinal: Soft, Nontender, Non distended, No organomegaly. Neurological: Alert and oriented to person, place, time, and situation, No focal neurological deficit observed, CN II-XII intact, normal motor observed, normal speech observed, normal coordination observed. Lymphatics: No lymphadenopathy. Psychiatric: Cooperative, appropriate mood & affect, normal judgment. Medical Decision Making Differential Diagnosis:: Bronchitis, upper respiratory infection, pneumonia, allergies, COVID-19, Covid syndrome, pulmonary embolism. Rationale: Discussed with patient differential diagnosis of her symptoms, patient did have recent Covid infection, she has risk of pulmonary embolism, discussed with her doing labs, D-dimer, and if her D-dimer is elevated to do CTA chest, patient is only interested in having a CTA chest to rule out pulmonary embolism, she said that is why her primary care physician sent her here, explained risk and benefits of CTA chest in detail, patient understand the risks and willing to take the risk. Documents reviewed: Emergency department nurses' notes. Electrocardiogram: Time 02/08/2021 21:19:00, rate 70, normal sinus rhythm, No ST changes, no ectopy, normal KS & QRS intervals, EP Interp, Nonspecific ST abnormality. Results review: Lab results : Lab Results 02/08/2021 21:57 EDT Troponin I Ultra <0.015 ng/mL 02/08/2021 21:18 EDT Bordatella pertussis Not Detected Chlamydia pneumoniae Not Detected Mycoplasma pneumoniae Not Detected Bordatella parapertussis Not Detected Adenovirus Not Detected Coronavirus 229E Not Detected Coronavirus HKU1 Not Detected Coronavirus NL63 Not Detected Coronavirus OC43 Not Detected Human metapneumovirus Not Detected Influenza A Not Detected Influenza A H3 Not Detected Influenza A 2008 H1N1 Not Detected Influenza A H1 Not Detected Influenza B Not Detected Parainfluenza 1 Not Detected Parainfluenza 2 Not Detected Parainfluenza 3 Not Detected Parainfluenza 4 Not Detected Respiratory Syncytial Virus Not Detected Rhinovirus/Enterovirus Not Detected SARS-CoV-2 (COVID19 PCR) Not Detected 02/08/2021 20:56 EDT Sodium Level 140 mmol/L Potassium Level 3.4 mmol/L LOW Chloride Level 108 mmol/L Carbon Dioxide Level 27 mmol/L Anion Gap 8 LOW Glucose Level 87 mg/dL Blood Urea Nitrogen 19 mg/dL Creatinine Level 0.87 mg/dL eGFR >60 mL/min/1.73m2 eGFR NonAfrican >60 mL/min/1.73m2 Bun/Creatinine 21.8 HI Calcium Level 8.8 mg/dL Protein Total 7.7 Gram/dL Albumin Level 4.1 Gram/dL Globulin 3.6 Gram/dL A/G Ratio 1.1 Bilirubin Total 0.4 mg/dL Alk Phos 82 Units/Liter AST 9 Units/Liter ALT 14 Units/Liter ProBNP 105 pg/mL WBC 6.9 K/uL RBC 3.38 Million/uL LOW Hgb 11.7 Gram/dL Hct 35.2 % MCV 104.1 fL HI MCH 34.6 pg HI MCHC 33.2 Gram/dL Platelet Count 252 K/uL MPV 9.6 fL RDW 12.2 % Neut % 44.2 % Neut # 3.05 K/uL Lymph % 47.5 % Lymph # 3.27 K/uL [place] % 4.8 % [place] # 0.33 K/uL Eos % 2.9 % Eos # 0.20 K/uL Baso % 0.3 % Baso # 0.02 K/uL Slide Review No IG# 0 x10(3)/uL IG% 0 % . Chest X-Ray: No acute disease process, interpretation by Emergency Physician. Radiology results: Radiology Results (Last 48 hours) [id number] -- 02/08/2021 17:59 CTA Chest PE Protocol (02/08/2021 21:53) Result: CT ANGIOGRAM OF THE CHESTHISTORY: Cough. Shortness of air.COMPARISON: None.TECHNIQUE: Thin-section axial images were obtained through the chestduring the arterial phase of IV contrast administration. Coronal 3D MIPreconstructed images were also provided. This study was performed withtechniques to keep radiation doses as low as reasonably achievable,(ALARA). Individualized dose reduction techniques using automatedexposure control or adjustment of mA and/or kV according to the patientsize were employed.FINDINGS: The pulmonary arteries are well opacified and there is nofilling defect to indicate pulmonary embolism. The thoracic aorta isnormal. There is an incidental azygous fissure. The lungs are clear andthere is no pleural disease, adenopathy or significant osseousabnormality.IMPRESSION: No pulmonary embolism or other abnormality. . Reexamination/ Reevaluation Time: 02/08/2021 21:24:00 . Course: unchanged. Assessment: exam unchanged. Time: 02/08/2021 22:42:00 . Course: improving. Assessment: exam unchanged. Notes: d/w pt results of the diagnostics done in the ED, differential diagnoses of symptoms, advised follow up with PCP for further evaluation and treatment, return to ER if symptoms worsen, gave specific instructions to return to the Emergency Department.. Impression and Plan Diagnosis URI (upper respiratory infection) - Discharge, Emergency medicine, Medical Dyspnea - Discharge, Emergency medicine, Medical Plan Condition: Improved, Stable. Disposition: Discharged Admit/Transfer/Discharge: Discharge (Order): Start: 02/08/2021 22:54 EDT, Discharge to: Home. Patient was given the following educational materials: Shortness of Breath, Adult, Viral Respiratory Infection. Follow up with: RHIANNA MARTIN Within 2 to 3 days; ; Return to emergency department Within As needed Return if condition worsens, if you have chest pain, worsening of shortness of breath, fever, vomiting, dizziness, fainting, etc. Follow-up with primary care physician for further evaluation and management. Counseled: Patient, Regarding diagnosis, Regarding diagnostic results, Regarding treatment plan, Regarding prescription, Patient indicated understanding of instructions. documented in this encounter Plan of Treatment Not on file documented as of this encounter Visit Diagnoses Not on filedocumented in this encounter Care Teams Network Planner Relationship Specialty Start Date End Date Alan Beyer MD [address] [place] [address] PCP - General Family Medicine 06/08/23 documented as of this encounter
--- OUTSIDE RECORDS SUMMARY | 2024-11-05 10:16 | XMS_ITS | Encounter Summary ---
Author Organization [facility] Address [address] [place] [address] Care Team Providers Care Insurance Analyst Name Role Phone Alan Beyer MD Primary Care Provider Encounter Details Date Type Department Care Team (Late st Contact Info) Description 12/12/2021 Transcribed Document [facility] [place] [facility] [place] [address] ProviderJessenia MD [address] [place] [address] Social History Tobacco Use Types Packs/Day Years Used Date Smoking Tobacco: Never Assessed Comments Unknown Sex and Gender Information Value Date Recorded Sex Assigned at Not on file Legal Sex Female 4:28 PM CDT Gender Identity Not on file Sexual Orientation Not on file documented as of this encounter Miscellaneous Notes * Cerner Conversion Note - Jessenia Alvarez MD - 12/12/2021 12:38 PM CDT [place] [id number] CHARLINE BOND :1980 Visit Time:12/12/2021 Your Visit Summary Your Care Team Primary Provider: DERICK DOVE Secondary Provider: Your Diagnosis Anxiety Anxiety COVID Medical Information You may obtain a copy of your Emergency Department visit from Medical Records by calling the hospital phone number listed above and asking to be directed to the Medical Records Department. If you had special tests, such as EKG???s or X-rays, the interpretation of your tests given to you by the Emergency Department Physician is a preliminary report. Some fractures and illnesses fail to show up on preliminary tests. These will be reviewed again and we will call you if there are any new suggestions. If your symptoms continue notify your physician. After you leave, you should follow the instructions provided. What to do next Follow-Up Appointments Follow Up with Follow up with primary care provider When Within 2 to 3 days Allergies Bactrim acetaminophen-oxyCODONE clindamycin Toradol baclofen doxycycline escitalopram fentaNYL lidocaine topical 2% gel meperidine morphine penicillin (Hives) tetanus immune globulin Immunizations This Visit No Immunizations Found Medications What How Much When Instructions Next Dose clonazePAM (clonazePAM 0.5 mg oral tablet) 1 Tablet(s) Oral Two Times A Day loratadine (Claritin 24 Hour Allergy 10 mg oral tablet) 1 Tablet(s) Oral Every Day methocarbamol (Robaxin-750 oral tablet) 1 Tablet(s) Oral Every Day omeprazole 40 Milligram(s) Oral Every Day predniSONE (predniSONE 10 mg oral tablet) See instructions Six-day tapering Dosepak valACYclovir (Valtrex) 500 Milligram(s) Oral Every Day fever blister valsartan (Diovan 80 mg oral tablet) 1 Tablet(s) Oral Every Day Duration: 30 Day(s) The home medications listed are only as accurate as the information you provided. Please continue taking all of your medications prescribed by your Primary Care Provider unless specifically told to change or discontinue the medication. Please direct any questions regarding your home medications to your Primary Care Provider. Take your medications faithfully. Do NOT skip medication. Do NOT stop taking medications without the direction of a physician. Carry a list of your medications with you at all times, and take this medication list with you to your first follow up visit. Report any side effects. Avoid herbal remedies unless discussed with your physician. As part of your treatment plan, your physician may have prescribed a limited course of a controlled substance. This medication may be given to help people with moderate or severe pain or for other medical conditions, but there are risks involved with treatment. Common side effects may include nausea, constipation, drowsiness, sweating, itching, dry mouth, and rash. More serious side effects may include cognitive and motor impairment, like problems with thinking, concentrating, alertness, and movement (e.g. slowed reflexes), and driving and operating heavy machinery can be dangerous. It is important for you to talk to your physician if you have these side effects or questions. These controlled substances can produce physical dependence and be habit-forming if taken for an extended period of time, which means that the body has gotten used to them and may experience withdrawal symptoms if they are abruptly stopped. Withdrawal symptoms can include runny nose, sweating, goose bumps, diarrhea, abdominal cramping, rapid heartbeat, difficulty sleeping, and nervousness. Please dispose of unused and medications per pharmacy guidance. Test Results Laboratory or Other Results This Visit (last charted value for your 12/12/2021 visit) Hematology 12/12/2021 10:36 AM WBC: 4.7 K/uL -- Normal range between ( 3.9 and 10.0 ) RBC: 3.55 Million/uL -- Normal range between ( 3.93 and 5.22 ) Hct: 37.1 % -- Normal range between ( 34.1 and 44.9 ) Hgb: 12.5 Gram/dL -- Normal range between ( 11.2 and 15.7 ) Platelet Count: 215 K/uL -- Normal range between ( 163 and 369 ) MCH: 35.2 pg -- Normal range between ( 25.6 and 32.2 ) MCHC: 33.7 Gram/dL -- Normal range between ( 32.3 and 36.5 ) MCV: 104.5 fL -- Normal range between ( 79.0 and 94.8 ) Slide Review: No Eos %: 1.1 % -- Normal range between ( 1.0 and 7.0 ) [place] #: 0.33 K/uL -- Normal range between ( 0.24 and 0.82 ) Eos #: 0.05 K/uL -- Normal range between ( 0.04 and 0.54 ) [place] %: 7.0 % -- Normal range between ( 4.7 and 12.5 ) Baso %: 0.4 % -- Normal range between ( 0.0 and 1.0 ) Baso #: 0.02 K/uL -- Normal range between ( 0.01 and 0.08 ) RDW: 12.0 % -- Normal range between ( 11.6 and 14.4 ) Neut %: 63.3 % -- Normal range between ( 34.0 and 71.0 ) Neut #: 2.98 K/uL -- Normal range between ( 1.56 and 6.13 ) Lymph %: 27.8 % -- Normal range between ( 19.3 and 53.0 ) Lymph #: 1.31 K/uL -- Normal range between ( 1.18 and 3.74 ) MPV: 10.0 fL -- Normal range between ( 9.4 and 12.4 ) IG#: 0 x10(3)/uL IG%: 0 % -- Normal range between ( 0 and 1 ) Urinalysis 12/12/2021 10:36 AM Urine Nitrite: Negative Urine Leukocyte Esterase: Negative Urine Appearance: Clear Urine Glucose Dipstick: Normal Urine Blood Dipstick: Negative Urine Urobilinogen Dipstick: Normal Urine Protein Dipstick: Negative Urine Color: Yellow Urine Ketones Dipstick: Negative Urine pH Dipstick: 6.0 -- Normal range between ( 6.0 and 8.0 ) Urine Bilirubin Dipstick: Negative Urine Specific Johnson: 1.015 -- Normal range between ( 1.005 and 1.030 ) Urine Type.: U CleanCatch Urine Culture if Indicated: Not Indicated General Chemistry 12/12/2021 10:36 AM Creatinine Level: 1.02 mg/dL -- Normal range between ( 0.55 and 1.02 ) Sodium Level: 139 mmol/L -- Normal range between ( 136 and 146 ) Potassium Level: 3.8 mmol/L -- Normal range between ( 3.5 and 5.1 ) Chloride Level: 104 mmol/L -- Normal range between ( 102 and 112 ) Carbon Dioxide Level: 28 mmol/L -- Normal range between ( 21 and 32 ) Anion Gap: 11 -- Normal range between ( 9 and 20 ) Bilirubin Total: 0.2 mg/dL -- Normal range between ( 0.2 and 1.3 ) A/G Ratio: 1.0 -- Normal range between ( 1.1 and 2.5 ) ALT: 20 Units/Liter -- Normal range between ( 12 and 78 ) AST: 15 Units/Liter -- Normal range between ( 5 and 37 ) Globulin: 3.8 Gram/dL -- Normal range between ( 1.5 and 4.5 ) Alk Phos: 92 Units/Liter -- Normal range between ( 27 and 136 ) Bun/Creatinine: 17.6 -- Normal range between ( 8.0 and 20.0 ) Calcium Level: 8.6 mg/dL -- Normal range between ( 8.5 and 10.1 ) eGFR : >60 mL/min/1.73m2 eGFR NonAfrican: 60 mL/min/1.73m2 Glucose Level: 102 mg/dL -- Normal range between ( 74 and 106 ) Blood Urea Nitrogen: 18 mg/dL -- Normal range between ( 7 and 22 ) Protein Total: 7.6 Gram/dL -- Normal range between ( 6.4 and 8.2 ) Albumin Level: 3.8 Gram/dL -- Normal range between ( 3.4 and 5.0 ) Endocrinology 12/12/2021 10:36 AM Procalcitonin: <0.05 ng/mL -- Normal range between ( 0.00 and 0.05 ) HCG Urine Qualitative: Negative Toxicology 12/12/2021 10:36 AM UDS Amp: Negative UDS Ade: Negative UDS Benzo: Positive UDS Claribel: Negative UDS Meth: Negative UDS Opi: Negative UDS Oxy: Negative UDS PCP: Negative UDS TCA: Negative UDS THC: Negative Buprenorphine Screen, Urine: Negative UDS pH: 5.9 Education Materials COVID-19: Quarantine vs. Isolation QUARANTINE keeps someone who was in close contact with someone who has COVID-19 away from others. If you had close contact with a person who has COVID-19 ??? The best way to protect yourself and others is to stay home for 14 days after your last contact. Check your local health department's website for information about options in your area to possibly shorten this quarantine period. ??? Check your temperature twice a day and watch for symptoms of COVID-19. ??? If possible, stay away from people who are at higher-risk for getting very sick from COVID-19. ISOLATION keeps someone who is sick or tested positive for COVID-19 without symptoms away from others, even in their own home. If you are sick and think or know you have COVID-19 ??? Stay home until after ? At least 10 days since symptoms first appeared and ? At least 24 hours with no fever without fever-reducing medication and ? Symptoms have improved If you tested positive for COVID-19 but do not have symptoms ??? Stay home until after ? 10 days have passed since your positive test If you live with others, stay in a specific sick room or area and away from other people or animals, including pets. Use a separate bathroom, if available. cdc.gov/coronavirus 04/29/2020 This information is not intended to replace advice given to you by your health care provider. Make sure you discuss any questions you have with your health care provider. Document Revised: 01/19/2021 Document Reviewed: 01/19/2021 [employer] Patient Education ?? 2020 [employer]. 10 Things You Can Do to Manage Your COVID-19 Symptoms at Home If you have possible or confirmed COVID-19: 1. Stay home except to get medical care. 2. Monitor your symptoms carefully. If your symptoms get worse, call your healthcare provider immediately. 3. Get rest and stay hydrated. 4. If you have a medical appointment, call the healthcare provider ahead of time and tell them that you have or may have COVID-19. 5. For medical emergencies, call 911 and notify the dispatch personnel that you have or may have COVID-19. 6. Cover your cough and sneezes with a tissue or use the inside of your elbow. 7. Wash your hands often with soap and water for at least 20 seconds or clean your hands with an alcohol-based hand rf microwave engineer that contains at least 60% alcohol. 8. As much as possible, stay in a specific room and away from other people in your home. Also, you should use a separate bathroom, if available. If you need to be around other people in or outside of the home, wear a mask. 9. Avoid sharing personal items with other people in your household, like dishes, towels, and bedding. 10. Clean all surfaces that are touched often, like counters, tabletops, and doorknobs. Use household cleaning sprays or wipes according to the label instructions. cdc.gov/coronavirus 11/26/2020 This information is not intended to replace advice given to you by your health care provider. Make sure you discuss any questions you have with your health care provider. Document Revised: 01/19/2021 Document Reviewed: 01/19/2021 [employer] Patient Education ?? 2020 [employer]. Emergency Awareness and Preventative Care STROKE is an EMERGENCY Every Minute Counts Act FAST and Check for these signs: FACE Does the face look uneven? ARM Does one arm drift down? SPEECH Does their speech sound strange? TIME Call at any sign of stroke Stroke Risk Factors Atrial Fibrillation (irregular heartbeat) Diabetes Family history of stroke Heart Disease Heavy alcohol use High Blood Pressure High Cholesterol Physical inactivity and obesity Smoking Cigarette Smoking The facts are clear, cigarette smoking will shorten your life. Smoking can cause many illnesses along the way. As a healthcare provider, we recommend that you stop smoking. Assistance with quitting is available by contacting 3-547-YKSB-NOW. This is a free resource providing counseling, support, and referral. Or you may contact your personal physician. Socialize Suicide Prevention Lifeline: The National Suicide Prevention Lifeline is a national network of local crisis centers that provides free and confidential emotional support to people in suicidal crisis or emotional distress 24 hours a day, 7 days a week. Don't Wait! Stop a Heart Attack Before it Starts What is a heart attack? A heart attack is damage or to a part of the heart from severely decreased or lack of blood flow to the heart. Over time, arteries can become narrow from the buildup of fat and cholesterol, which is called plaque. The plaque can rupture causing a blood clot to form. When the blood clot forms, the artery can become severely narrowed or completely blocked, causing a heart attack. Heart attack is the leading cause of in the [place]. 85% of muscle damage occurs within the first 2 hours. Delay in the recognition of heart attack symptoms increases the chances of . Know the early symptoms of a heart attack: Nausea Feeling of fullness in chest Jaw Pain Pain that travels down one or both arms Fatigue/being tired Anxiety Back Pain Chest pressure, squeezing, or discomfort Shortness of breath Sweating, or a cold sweat Feeling of impending doom There are unusual signs of a heart attack, too! Women, the elderly, and diabetics may present with atypical symptoms: Fainting/dizziness Weakness Confusion Risk Factors for a Heart Attack Some heart disease risk factors, such as age and family history, cannot be changed. Others, like smoking and lack of exercise, can be changed. Smoking High Cholesterol High Blood Pressure Family History Obesity Age Gender (Males are at higher risk) Lack of Exercise Diabetes Diet Stress Excessive Alcohol Intake If you or someone you know is experiencing the signs and symptoms of a heart attack, DON???T DELAY. Call immediately and seek help. If someone collapses, perform CPR! Do not attempt to drive if you are having symptoms of heart attack. Hands-Only CPR Why Hands-Only CPR? Hands-Only CPR has been shown to be as effective as conventional CPR for cardiac arrests that occur outside of a hospital. Survival depends on immediately receiving CPR from someone nearby. How do you perform Hands-Only CPR? There are two easy steps: Call if you see a teen or adult collapse Push hard and fast in the center of the chest at a beat of 100 beats per minute. Save a life! 4 WAYS TO GET AHEAD OF SEPSIS SEPSIS is a MEDICAL EMERGENCY. Time matters! Infections put you and your family at risk for a life-threatening condition called sepsis. Sepsis is the body's extreme response to an infection. It is life-threatening, and without timely treatment, sepsis can rapidly lead to tissue damage, organ failure, and . Sepsis happens when an infection you already have-in your skin, lungs, urinary tract or somewhere else-triggers a chain reaction throughout your body. 1 PREVENT INFECTIONS Take good care of chronic conditions. Talk to your doctor about getting the recommended vaccines. 2 PRACTICE GOOD HYGIENE Wash your hands frequently. Keep cuts or open sores clean and covered until they are healed. 3 KNOW THE SYMPTOMS Confusion or disorientation Shortness of breath High heart rate Fever, shivering, or feeling very cold Extreme pain or discomfort Clammy or sweaty skin 4 ACT FAST Get medical care IMMEDIATELY if you suspect sepsis or if you have an infection that is not getting better or is getting worse. To learn more about sepsis and how to prevent infections, visit www.cdc.gov/sepsis. The examination and treatment you have received in the Emergency Department has been done to provide an appropriate evaluation and stabilizing treatment on an emergency basis only. Given the limited resources, it is not meant to be a substitute for complete medical care. The follow-up doctor you named will receive a copy of your records and all test reports. IT IS IMPORTANT THAT YOU SCHEDULE A FOLLOW-UP APPOINTMENT AND ARE RE-EVALUATED. You should report any new complaints, symptoms, or remaining problems at that time. IT IS IMPOSSIBLE FOR THE EMERGENCY DEPARTMENT TO RECOGNIZE AND TREAT ALL ELEMENTS OF INJURY OR ILLNESS IN A SINGLE VISIT. If you have been referred to a specialist physician, it means that we believe you may have a condition that requires the expertise of a specialist. These physicians work in partnership with the hospital and have agreed to see referred patients in their office for further evaluation. KEEP IN MIND THAT THE SPECIALIST HAS HIS/HER OWN OFFICE POLICIES WHICH MAY REQUIRE PROPER INSURANCE OR PAYMENT UP FRONT BEFORE THE SPECIALIST WILL SEE YOU. It is your responsibility to call the specialist physician to make an appointment. We do not have the ability to refer patients to specialists/physicians that work with specific insurance companies. Please be advised that all financial charges or billing practices are determined by that practice, not the hospital. If your insurance company requires that you see a specialist from their approved list, it is your responsibility to contact your insurance company to make those arrangements. It is also your responsibility to follow any other requirements of your insurance company necessary to obtain coverage for claims submitted. We will bill your insurance; however, you are responsible today for any co-pay amounts. You will receive a separate bill for any services you may have received including: emergency, radiology, or pathology physicians. Patient Name:CHARLINE BOND I have received this information and was given the opportunity to ask questions. Patient/Plumbing Instructor Name: Patient/Plumbing Instructor Signature: Relationship to Patient: Clinician/Hospital Plumbing Instructor Signature: Please Provide a Telephone Number Where You Can Be Reached: Is it Permissible To Leave a Message? Date: Electronically signed by Jannette, [facility] Conversion Hydrogenation Still Operator Cerner at 08/31/2022 5:09 PM CDT documented in this encounter Plan of Treatment Not on file documented as of this encounter Visit Diagnoses Not on filedocumented in this encounter Care Teams Insurance Analyst Relationship Specialty Start Date End Date Alan Beyer MD [address] [place] [address] PCP - General Family Medicine 06/08/23 documented as of this encounter
--- OUTSIDE RECORDS SUMMARY | 2024-11-05 10:16 | XMS_ITS | Encounter Summary ---
Author Organization [facility] Address [address] [place] [address] Care Team Providers Care Recycle Coordinator Name Role Phone Alan Beyer MD Primary Care Provider [phone] Encounter Details Date Type Department Care Team (Late st Contact Info) Description 02/08/2021 Transcribed Document [facility] [place] [facility] [place] [address] ProviderJessenia MD [address] [place], [place] [address] Social History Tobacco Use Types Packs/Day Years [...] Alvarez MD - 02/08/2021 5:59 PM CDT [place] Suicide Severity Rating Scale (C-SSRS) Entered On: 02/08/2021 22:12 EDT Performed On: 02/08/2021 22:10 EDT by John Tavarez RN-PATIENT CARE BEDSIDE NON-EXEMPT [place] Suicide Severity Rating Scale (C-SSRS) CSSRS Past Month Wish to be : No CSSRS Past Month Suicidal Thoughts : No CSSRS Lifetime Suicide Behavior : No Suicide Severity Rating Score : 0 Suicide Severity Rating : No Additional Care Required at this time John Tavarez RN-PATIENT CARE BEDSIDE NON-EXEMPT - 02/08/2021 22:10 EDT Electronically signed by Trevon Bhatia Conversion Director Of Cardiology Service Line Cerner at 08/31/2022 5:13 PM CDT documented in this encounter Plan of Treatment Not on file documented as of this encounter Visit Diagnoses Not on filedocumented in this encounter Care Teams Recycle Coordinator Relationship Specialty Start Date End Date Alan Beyer MD [address] [place] [address] PCP - General Family Medicine 06/08/23 documented as of this encounter
--- OUTSIDE RECORDS SUMMARY | 2024-11-05 10:17 | XMS_ITS | Encounter Summary ---
Author Organization [facility] [employer] Address [address] [place] [address] Care Team Providers Care Clip Riveter Name Role Phone Alan Beyer MD Primary Care Provider [phone] Encounter Details Date Type Department Care Team (Late st Contact Info) Description 05/03/2020 Transcribed Document [facility] [place] Family Medicine [address] [place] [address] ProviderJessenia MD [address] [place] [address] Social History Tobacco Use Types Packs/Day Years Used Date Smoking Tobacco: Never Assessed Comments Unknown Sex and Gender Information Value Date Recorded Sex Assigned at Not on file Legal Sex Female 4:28 PM CDT Gender Identity Not on file Sexual Orientation Not on file documented as of this encounter Miscellaneous Notes * Cerner Conversion Note - Jessenia Alvarez MD - 05/03/2020 2:55 PM ENVELOPE ADDRESSER Broset Violence Assessment Entered On: 05/03/2020 15:30 EST Performed On: 05/03/2020 15:30 EST by Jyoti Frazier Rn Broset Violence Assessment Broset Violence Checklist of Symptoms : None Broset Violence Symptoms Subtotal : 0 Broset Violence Symptoms Indicator : Low risk (0) Jyoti Frazier Rn - 05/03/2020 15:30 EST Electronically signed by Jannette [facility] Conversion Director Of Accreditation Cerner at 08/31/2022 5:13 PM CDT documented in this encounter Plan of Treatment Not on file documented as of this encounter Visit Diagnoses Not on filedocumented in this encounter Care Teams Clip Riveter Relationship Specialty Start Date End Date Alan Beyer MD [address] [place] [address] PCP - General Family Medicine 06/08/23 documented as of this encounter
--- OUTSIDE RECORDS SUMMARY | 2024-11-05 10:17 | XMS_ITS | Encounter Summary ---
Author Organization [employer] Address [address] [place] [address] Care Team Providers Care Materials Inspector Name Role Phone Alan Beyer MD Primary Care Provider [phone] Encounter Details Date Type Department Care Team (Late st Contact Info) Description 03/30/2021 Transcribed Document [facility] [place] Family Medicine [facility] [place] [address] ProviderJessenia MD [address] [place] [address] Social History Tobacco Use Types Packs/Day Years Used Date Smoking Tobacco: Never Assessed Comments Unknown Sex and Gender Information Value Date Recorded Sex Assigned at Not on file Legal Sex Female 4:28 PM CDT Gender Identity Not on file Sexual Orientation Not on file documented as of this encounter Miscellaneous Notes * Cerner Conversion Note - Jessenia Alvarez MD - 03/30/2021 1:19 AM HEALTH AND SOCIAL CARE TEACHER ED Triage Entered On: 03/30/2021 1:30 EST Performed On: 03/30/2021 1:28 EST by OBEY MONROE, LODGING FACILITIES MANAGER Triage Across the Room Chief Complaint : Pt co Mid chest pain with pain into left sided neck with tingling into left arm and face. pt is anxious alert skinpwd. Triage Date/Time : 03/30/2021 1:28 EST OBEY MONROE RN - 03/30/2021 1:28 EST DCP GENERIC CODE Tracking Acuity : 2 - Emergent Tracking Group : [facility] ED East OBEY MONROE RN - 03/30/2021 1:28 EST Mode of Arrival : Ambulatory Transported to ED by : Private vehicle To Room Via : Ambulate Accompanied By : Unaccompanied ED Vital Signs : Document Height & Weight : Document ED Allergies : Document ED Reason for Visit : Document Tetanus Immunization : Unknown OBEY MONROE RN - 03/30/2021 1:28 EST Infectious Disease History Does patient have symptoms of COVID-19? : No Has the Patient Been Tested for COVID-19 in the last 14 days? : Yes, Patient stated results Negative Does the Patient state known exposure to a COVID-19 positive case in the last 14 days? : No Patient Vaccinated for COVID-19 : Fully vaccinated OBEY MONROE RN - 03/30/2021 1:28 EST Infectious Disease Risk Screening Grid Cough < 2 wks of unknown origin : Yes Cough > 2 weeks : NO Blood in Sputum : NO Fever or self-reported Fever : NO Rash of unknown origin : NO Headache : NO Stiff neck : NO Night Sweats : NO Unexplained Weight Loss : NO Diarrhea (3 episode per day) : NO OBEY MONROE RN - 03/30/2021 1:28 EST Physical contact outside [place] in the last 30 days : No Hospitalized in Foreign Country : No Infectious Disease History : Chicken pox/Shingles, Herpes, Influenza, Mononucleosis INF Disease TB Screening Calc : 1 INF Disease Recent Travel Calc : 0 OBEY MONROE RN - 03/30/2021 1:28 EST Vital Signs ED Temperature Source : Oral Temperature Mode : Fahrenheit Temperature, Fahrenheit : 97.8 Deg F ED Pain : Yes Clinical Temperature, C : 36.6 Deg C Oxygen Therapy Mode : Room air Peripheral Pulse Rate : 100 bpm Respiratory Rate : 18 Breaths/Min Systolic Blood Pressure : 170 mmHg (HI) Diastolic Blood Pressure : 104 mmHg (HI) Oxygen Saturation : 100 % OBEY MONROE RN - 03/30/2021 1:28 EST Allergy (As Of: 03/30/2021 01:30:28 EST) Allergies (Active) acetaminophen-oxyCODONE Estimated Onset Date: Unspecified ; Comments: Comment 1: throws up and itching ; Created By: Breanna Ivey Rn; Reaction Status: Active ; Category: Drug ; Substance: acetaminophen-oxyCODONE ; Severity: Severe ; Updated By: Breanna Ivey Rn; Source: Patient ; Reviewed Date: 02/08/2021 18:13 EDT baclofen Estimated Onset Date: Unspecified ; Comments: Comment 1: hives and cant breath ; Created By: Breanna Ivey Rn; Reaction Status: Active ; Category: Drug ; Substance: baclofen ; Type: Allergy ; Updated By: Breanna Ivey Rn; Reviewed Date: 02/08/2021 18:13 EDT Bactrim Estimated Onset Date: Unspecified ; Comments: Comment 1: hives not breathing ; Created By: Breanna Ivey Rn; Reaction Status: Active ; Category: Drug ; Substance: Bactrim ; Type: Allergy ; Severity: Severe ; Updated By: Breanna Ivey Rn; Source: Patient ; Reviewed Date: 02/08/2021 18:13 EDT clindamycin Estimated Onset Date: Unspecified ; Comments: Comment 1: Hives, vomiting ; Created By: Talia Eason RN; Reaction Status: Active ; Category: Drug ; Substance: clindamycin ; Type: Allergy ; Severity: Severe ; Updated By: Talia Eason RN; Reviewed Date: 02/08/2021 18:13 EDT doxycycline Estimated Onset Date: Unspecified ; Comments: Comment 1: hives and projectile vomiting ; Created By: Breanna Ivey Rn; Reaction Status: Active ; Category: Drug ; Substance: doxycycline ; Type: Allergy ; Updated By: Breanna Ivey Rn; Reviewed Date: 02/08/2021 18:13 EDT escitalopram Estimated Onset Date: Unspecified ; Comments: Comment 1: unknown ; Created By: Breanna Ivey Rn; Reaction Status: Active ; Category: Drug ; Substance: escitalopram ; Type: Allergy ; Updated By: Breanna Ivey Rn; Reviewed Date: 02/08/2021 18:13 EDT fentaNYL Estimated Onset Date: Unspecified ; Comments: Comment 1: hallucinate and cry ; Created By: Breanna Ivey Rn; Reaction Status: Active ; Category: Drug ; Substance: fentaNYL ; Type: Allergy ; Updated By: Breanna Ivey Rn; Reviewed Date: 02/08/2021 18:13 EDT lidocaine topical 2% gel Estimated Onset Date: Unspecified ; Comments: Comment 1: severe swelling, itching, rash ; Created By: Breanna Ivey Rn; Reaction Status: Active ; Category: Drug ; Substance: lidocaine topical 2% gel ; Type: Allergy ; Updated By: Breanna Ivey Rn; Reviewed Date: 02/08/2021 18:13 EDT meperidine Estimated Onset Date: Unspecified ; Comments: Comment 1: hallucinations and angry ; Created By: Breanna Ivey Rn; Reaction Status: Active ; Category: Drug ; Substance: meperidine ; Type: Allergy ; Updated By: Breanna Ivey Rn; Reviewed Date: 02/08/2021 18:13 EDT morphine Estimated Onset Date: Unspecified ; Comments: Comment 1: severe itching ; Created By: Breanna Ivey Rn; Reaction Status: Active ; Category: Drug ; Substance: morphine ; Type: Allergy ; Updated By: Breanna Ivey Rn; Reviewed Date: 02/08/2021 18:13 EDT penicillin Estimated Onset Date: Unspecified ; Reactions: Hives ; Comments: Comment 1: hives Comment 2: Pt has tolerated cefoxitin in 06/30, 06/01, and trying cefazolin 05/01 ; Created By: JAME ZUNIGA PharmD; Reaction Status: Active ; Category: Drug ; Substance: penicillin ; Type: Allergy ; Updated By: JAME ZUNIGA, PharmD; Reviewed Date: 02/08/2021 18:13 EDT tetanus immune globulin Estimated Onset Date: Unspecified ; Comments: Comment 1: adverse reaction I get tetanus and my body will swell up ; Created By: Breanna Ivey Rn; Reaction Status: Active ; Category: Drug ; Substance: tetanus immune globulin ; Type: Allergy ; Updated By: Breanna Ivey Rn; Reviewed Date: 02/08/2021 18:13 EDT Toradol Estimated Onset Date: Unspecified ; Comments: Comment 1: feels like a softball in chest and my chest goes numb ; Created By: Breanna Ivey Rn; Reaction Status: Active ; Category: Drug ; Substance: Toradol ; Type: Allergy ; Updated By: Breanna Ivey Rn; Reviewed Date: 02/08/2021 18:13 EDT Diagnosis Control ED (As Of: 03/30/2021 01:30:28 EST) Problems(Active) Anxiety (SNOMED CT :34824965 ) Name of Problem: Anxiety ; Recorder: ERICKA ISSA RN; Confirmation: Confirmed ; Classification: Medical ; Code: [id number] ; Contributor System: CartesianChart ; Last Updated: 07/26/2015 22:28 EDT ; Life Cycle Date: 07/26/2015 ; Life Cycle Status: Active ; Vocabulary: SNOMED CT Endometriosis, vagina (SNOMED CT :59942572 ) Name of Problem: Endometriosis, vagina ; Recorder: Breanna Ivey RN; Confirmation: Confirmed ; Classification: Medical ; Code: [id number] ; Contributor System: PowerChart ; Last Updated: 05/24/2018 10:54 EST ; Life Cycle Date: 05/24/2018 ; Life Cycle Status: Active ; Vocabulary: SNOMED CT Kidney stones (SNOMED CT :254232296 ) Name of Problem: Kidney stones ; Recorder: KAYY ANDREW; Confirmation: Confirmed ; Classification: Medical ; Code: [id number] ; Contributor System: CartesianChart ; Last Updated: 06/06/2016 9:30 EST ; Life Cycle Date: 06/06/2016 ; Life Cycle Status: Active ; Vocabulary: SNOMED CT Migraine (SNOMED CT :17794132 ) Name of Problem: Migraine ; Recorder: ERICKA ISSA RN; Confirmation: Confirmed ; Classification: Medical ; Code: [id number] ; Contributor System: CartesianChart ; Last Updated: 07/26/2015 22:28 EDT ; Life Cycle Date: 07/26/2015 ; Life Cycle Status: Active ; Vocabulary: SNOMED CT S/P hysterectomy (SNOMED CT :171079381 ) Name of Problem: S/P hysterectomy ; Recorder: LEONID CASTANEDA RN; Confirmation: Confirmed ; Classification: Medical ; Code: [id number] ; Contributor System: PowerChart ; Last Updated: 11/06/2019 20:08 EDT ; Life Cycle Date: 11/06/2019 ; Life Cycle Status: Active ; Vocabulary: SNOMED CT Shoulder pain, left (SNOMED CT :16887943 ) Name of Problem: Shoulder pain, left ; Recorder: Breanna Ivey RN; Confirmation: Confirmed ; Classification: Medical ; Code: [id number] ; Contributor System: CartesianChart ; Last Updated: 05/24/2018 10:53 EST ; Life Cycle Date: 05/24/2018 ; Life Cycle Status: Active ; Vocabulary: SNOMED CT Diagnoses(Active) Chest pain Date: 03/30/2021 ; Diagnosis Type: Reason For Visit ; Confirmation: Complaint of ; Clinical Dx: Chest pain ; Classification: Medical ; Clinical Service: Emergency medicine ; Code: PNED ; Probability: 0 ; Diagnosis Code: [id number] ED Height and Weight Height Source : Measured Height Entry Format : [place] Height, Feet : 5 ft(Converted to: 152 cm, 60 Inch) Height, Inches : 6 Inch(Converted to: 0 ft 6 Inch, 15.24 cm) Clinical Height : 167.64 cm Weight Source, ED : Critical estimated dosing weight Weight Entry Format : [place] Weight, Pounds : 170 lb Clinical Dosing Weight : 77.27 kg Body Surface Area (BSA) : 1.87 m2 Body Mass Index : 27.5 kg/m2 (HI) [place] Body Weight (IBW) : 58.88 kg OBEY MONROE RN - 03/30/2021 1:28 EST Pain Assessment Pain Assessment : Initial assessment Pain Scale Used : 0-10 Scale OBEY MONROE RN - 03/30/2021 1:28 EST Pain Scale Intensity : 7 OBEY MONROE RN - 03/30/2021 1:28 EST Image 4 - Images currently included in the form version of this document have not been included in the text rendition version of the form. documented in this encounter Plan of Treatment Not on file documented as of this encounter Visit Diagnoses Not on filedocumented in this encounter Care Teams Materials Inspector Relationship Specialty Start Date End Date Alan Beyer MD [address] [place] [address] PCP - General Family Medicine 06/08/23 documented as of this encounter
--- OUTSIDE RECORDS SUMMARY | 2024-11-05 10:17 | XMS_ITS | Encounter Summary ---
Author Organization [employer] Address [address] [place] [address] Care Team Providers Care Engineering Inspector Name Role Phone Alan Beyer MD Primary Care Provider [phone] Encounter Details Date Type Department Care Team (Late st Contact Info) Description 05/30/2021 Transcribed Document [facility] [place] Family Medicine [facility] [place] [address] ProviderJessenia MD [address], [place] [address] Social History Tobacco Use Types Packs/Day Years Used Date Smoking Tobacco: Never Assessed Comments Unknown Sex and Gender Information Value Date Recorded Sex Assigned at Not on file Legal Sex Female 4:28 PM CDT Gender Identity Not on file Sexual Orientation Not on file documented as of this encounter Miscellaneous Notes * Cerner Conversion Note - Jessenia ProviderMD - 05/30/2021 11:49 PM SEWER AND INSPECTOR Electronically signed by Jannette Freeman [facility] Conversion Check Writer Salesperson Cerner at 08/31/2022 5:11 PM CDT documented in this encounter Plan of Treatment Not on file documented as of this encounter Visit Diagnoses Not on filedocumented in this encounter Care Teams Engineering Inspector Relationship Specialty Start Date End Date Alan Beyer MD [address] [place] [address] PCP - General Family Medicine 06/08/23 documented as of this encounter
--- OUTSIDE RECORDS SUMMARY | 2024-11-05 10:17 | XMS_ITS | Encounter Summary ---
Author Organization [employer] Address [address] [place] [address] Care Team Providers Care Water Taxi Operator Name Role Phone Alan Beyer MD Primary Care Provider [phone] Encounter Details Date Type Department Care Team (Late st Contact Info) Description 05/30/2021 Transcribed Document [facility] [place] Family Medicine [facility] [place] [address] ProviderJessenia MD [address] [place] [address] Social History Tobacco Use Types Packs/Day Years Used Date Smoking Tobacco: Never Assessed Comments Unknown Sex and Gender Information Value Date Recorded Sex Assigned at Not on file Legal Sex Female 4:28 PM CDT Gender Identity Not on file Sexual Orientation Not on file documented as of this encounter Miscellaneous Notes * Cerner Conversion Note - Jessenia Alvarez MD - 05/30/2021 10:11 PM NDT INSPECTOR Pain Assessment Entered On: 05/30/2021 22:58 EST Performed On: 05/30/2021 22:58 EST by VANDANA KHALIL RN-PATIENT CARE BEDSIDE NON-EXEMPT Intervention Information: HYDROmorphone Performed by Geovanni Ayers, Papier Mache' Molder on 05/30/2021 22:21:00 EST HYDROmorphone,1mg IV Push,Left Antecubital [place] Pain Assessment Pain Assessment : Follow-up assessment Pain Scale Used : 0-10 Scale VANDANA KHALIL RN-PATIENT CARE BEDSIDE NON-EXEMPT - 05/30/2021 22:58 EST Pain Scale Intensity : 3 KHALIL, VANDANA, RN-PATIENT CARE BEDSIDE NON-EXEMPT - 05/30/2021 22:58 EST Image 4 - Images currently included in the form version of this document have not been included in the text rendition version of the form. documented in this encounter Plan of Treatment Not on file documented as of this encounter Visit Diagnoses Not on filedocumented in this encounter Care Teams Water Taxi Operator Relationship Specialty Start Date End Date Alan Beyer MD [address] [place] [address] PCP - General Family Medicine 06/08/23 documented as of this encounter
--- OUTSIDE RECORDS SUMMARY | 2024-11-05 10:17 | XMS_ITS | Encounter Summary ---
Author Organization [employer] Address [address] [place] [address] Care Team Providers Care Functional Consultant Name Role Phone Alan Beyer MD Primary Care Provider [phone] Encounter Details Date Type Department Care Team (Late st Contact Info) Description 07/13/[address] [facility] [place] Family [place] [facility] [place] [address] ProviderJessenia MD [address] [place] [address] Social History Tobacco Use Types Packs/Day Years Used Date Smoking Tobacco: Never Assessed Comments Unknown Sex and Gender Information Value Date Recorded Sex Assigned at Not on file Legal Sex Female 4:28 PM CDT Gender Identity Not on file Sexual Orientation Not on file documented as of this encounter Miscellaneous Notes * Cerner Conversion Note - Jessenia Alvarez MD - 07/13/2021 4:05 AM HULL BUILDER Pain Assessment Entered On: 07/13/2021 4:39 EST Performed On: 07/13/2021 4:39 EST by Kay Bernal RN Intervention Information: HYDROmorphone Performed by Kay Bernal RN on 07/13/2021 04:09:00 EST HYDROmorphone,1mg IV Push,Peripheral Line 1 Pain Assessment Pain Assessment : Follow-up assessment Pain Scale Used : 0-10 Scale Kay Bernal RN - 07/13/2021 4:39 EST Pain Scale Intensity : 6 Kay Bernal RN - 07/13/2021 4:39 EST Image 4 - Images currently included in the form version of this document have not been included in the text rendition version of the form. documented in this encounter Plan of Treatment Not on file documented as of this encounter Visit Diagnoses Not on filedocumented in this encounter Care Teams Functional Consultant Relationship Specialty Start Date End Date Alan Beyer MD [address] [place] [address] PCP - General Family Medicine 06/08/23 documented as of this encounter
--- OUTSIDE RECORDS SUMMARY | 2024-11-05 10:17 | XMS_ITS | Encounter Summary ---
Author Organization [employer] Address [address] [place] [address] Care Team Providers Care Ssis Architect Name Role Phone Alan Beyer MD Primary Care Provider [phone] Encounter Details Date Type Department Care Team (Late st Contact Info) Description 03/30/2021 Transcribed Document [facility] [place] [address] ProviderJessenia MD [address] [place] [address] Social History Tobacco Use Types [...] Jessenia Alvarez MD - 03/30/2021 1:19 AM LEATHER PATCHER [place] Suicide Severity Rating Scale (C-SSRS) Entered On: 03/30/2021 4:35 EST Performed On: 03/30/2021 1:30 EST by Mp Price, Rn [place] Suicide Severity Rating Scale (C-SSRS) CSSRS Past Month Wish to be : No CSSRS Past Month Suicidal Thoughts : No CSSRS Lifetime Suicide Behavior : No Suicide Severity Rating Score : 0 Suicide Severity Rating : No Additional Care Required at this time Mp Price, Rn - 03/30/2021 4:35 EST Electronically signed by Jannette [facility] Conversion Knitter Helper Cerner at 08/31/2022 4:57 PM CDT documented in this encounter Plan of Treatment Not on file documented as of this encounter Visit Diagnoses Not on filedocumented in this encounter Care Teams Ssis Architect Relationship Specialty Start Date End Date Alan Beyer MD [address] [place] [address] PCP - General Family Medicine 06/08/23 documented as of this encounter
--- OUTSIDE RECORDS SUMMARY | 2024-11-05 10:17 | XMS_ITS | Encounter Summary ---
Author Organization [employer] Address [address] [place] [address] Care Team Providers Care Seed Production Field Supervisor Name Role Phone Alan Beyer MD Primary Care Provider [phone] Encounter Details Date Type Department Care Team (Late st Contact Info) Description 05/30/2021 Transcribed Document [facility] [place] [address] ProviderJessenia MD [address] [place] [address] Social History Tobacco Use Types Packs/Day Years Used Date Smoking Tobacco: Never Assessed Comments Unknown Sex and Gender Information Value Date Recorded Sex Assigned at Not on file Legal Sex Female 4:28 PM CDT Gender Identity Not on file Sexual Orientation Not on file documented as of this encounter Miscellaneous Notes * Cerner Conversion Note - Jessenia Alvarez MD - 05/30/2021 6:15 PM DIRECTOR OF DESIGN ED Triage Entered On: 05/30/2021 18:32 EST Performed On: 05/30/2021 18:30 EST by SHAMA CASTILLO RN ED Triage Across the Room Chief Complaint : Pt c/o lower abd pain, sinusitis, been on abx for it, nothing goes in or out of right nostrils. Triage Date/Time : 05/30/2021 18:30 EST SHAMA CASTILLO RN - 05/30/2021 18:30 EST DCP GENERIC CODE Tracking Acuity : 3 - Urgent Tracking Group : [facility] SHAMA CASTILLO RN - 05/30/2021 18:30 EST Mode of Arrival : Ambulatory Transported to ED by : Private vehicle To Room Via : Ambulate Accompanied By : Unaccompanied ED Vital Signs : Document Height & Weight : Document ED Allergies : Document ED Reason for Visit : Document Tetanus Immunization : Unknown SHAMA CASTILLO RN - 05/30/2021 18:30 EST Infectious Disease History Does patient have symptoms of COVID-19? : No Has the Patient Been Tested for COVID-19 in the last 14 days? : Yes, Patient stated results Negative Does the Patient state known exposure to a COVID-19 positive case in the last 14 days? : No Patient Vaccinated for COVID-19 : Fully vaccinated SHAMA CASTILLO RN - 05/30/2021 18:30 EST Infectious Disease Risk Screening Grid Cough < 2 wks of unknown origin : NO Cough > 2 weeks : NO Blood in Sputum : NO Fever or self-reported Fever : NO Rash of unknown origin : NO Headache : NO Stiff neck : NO Night Sweats : NO Unexplained Weight Loss : NO Diarrhea (3 episode per day) : NO SHAMA CASTILLO RN - 05/30/2021 18:30 EST Physical contact outside [place] in the last 30 days : No Hospitalized in [place] : No Infectious Disease History : Chicken pox/Shingles, Herpes, Influenza, Mononucleosis INF Disease TB Screening Calc : 0 INF Disease Recent Travel Calc : 0 SHAMA CASTILLO RN - 05/30/2021 18:30 EST Vital Signs ED Temperature Source : Temporal artery scanning Temperature Mode : Fahrenheit Temperature, Fahrenheit : 97.8 Deg F Clinical Temperature, C : 36.6 Deg C Oxygen Therapy Mode : Room air Peripheral Pulse Rate : 97 bpm Respiratory Rate : 18 Breaths/Min Systolic Blood Pressure : 157 mmHg (HI) Diastolic Blood Pressure : 97 mmHg (HI) Oxygen Saturation : 100 % SHAMA CASTILLO RN - 05/30/2021 18:30 EST Allergy (As Of: 05/30/2021 18:32:32 EST) Allergies (Active) acetaminophen-oxyCODONE Estimated Onset Date: Unspecified ; Comments: Comment 1: throws up and itching ; Created By: Breanna Ivey Rn; Reaction Status: Active ; Category: Drug ; Substance: acetaminophen-oxyCODONE ; Severity: Severe ; Updated By: Breanna Ivey Rn; Source: Patient ; Reviewed Date: 05/30/2021 18:31 EST baclofen Estimated Onset Date: Unspecified ; Comments: Comment 1: hives and cant breath ; Created By: Breanna Ivey Rn; Reaction Status: Active ; Category: Drug ; Substance: baclofen ; Type: Allergy ; Updated By: Breanna Ivey Rn; Reviewed Date: 05/30/2021 18:31 EST Bactrim Estimated Onset Date: Unspecified ; Comments: Comment 1: hives not breathing ; Created By: Breanna Ivey Rn; Reaction Status: Active ; Category: Drug ; Substance: Bactrim ; Type: Allergy ; Severity: Severe ; Updated By: Breanna Ivey Rn; Source: Patient ; Reviewed Date: 05/30/2021 18:31 EST clindamycin Estimated Onset Date: Unspecified ; Comments: Comment 1: Hives, vomiting ; Created By: Talia Eason RN; Reaction Status: Active ; Category: Drug ; Substance: clindamycin ; Type: Allergy ; Severity: Severe ; Updated By: Talia Eason RN; Reviewed Date: 05/30/2021 18:31 EST doxycycline Estimated Onset Date: Unspecified ; Comments: Comment 1: hives and projectile vomiting ; Created By: Breanna Ivey Rn; Reaction Status: Active ; Category: Drug ; Substance: doxycycline ; Type: Allergy ; Updated By: Breanna Ivey Rn; Reviewed Date: 05/30/2021 18:31 EST escitalopram Estimated Onset Date: Unspecified ; Comments: Comment 1: unknown ; Created By: Breanna Ivey Rn; Reaction Status: Active ; Category: Drug ; Substance: escitalopram ; Type: Allergy ; Updated By: Breanna Ivey Rn; Reviewed Date: 05/30/2021 18:31 EST fentaNYL Estimated Onset Date: Unspecified ; Comments: Comment 1: hallucinate and cry ; Created By: Breanna Ivey Rn; Reaction Status: Active ; Category: Drug ; Substance: fentaNYL ; Type: Allergy ; Updated By: Breanna Ievy Rn; Reviewed Date: 05/30/2021 18:31 EST lidocaine topical 2% gel Estimated Onset Date: Unspecified ; Comments: Comment 1: severe swelling, itching, rash ; Created By: Breanna Ivey Rn; Reaction Status: Active ; Category: Drug ; Substance: lidocaine topical 2% gel ; Type: Allergy ; Updated By: Breanna Ivey Rn; Reviewed Date: 05/30/2021 18:31 EST meperidine Estimated Onset Date: Unspecified ; Comments: Comment 1: hallucinations and angry ; Created By: Breanna Ivey Rn; Reaction Status: Active ; Category: Drug ; Substance: meperidine ; Type: Allergy ; Updated By: Breanna Ivey Rn; Reviewed Date: 05/30/2021 18:31 EST morphine Estimated Onset Date: Unspecified ; Comments: Comment 1: severe itching ; Created By: Breanna Ivey Rn; Reaction Status: Active ; Category: Drug ; Substance: morphine ; Type: Allergy ; Updated By: Breanna Ivey Rn; Reviewed Date: 05/30/2021 18:31 EST penicillin Estimated Onset Date: Unspecified ; Reactions: Hives ; Comments: Comment 1: hives Comment 2: Pt has tolerated cefoxitin in 06/30, 06/01, and trying cefazolin 05/01 ; Created By: JAME ZUNIGA PharmD; Reaction Status: Active ; Category: Drug ; Substance: penicillin ; Type: Allergy ; Updated By: JAEM ZUNIGA PharmD; Reviewed Date: 05/30/2021 18:31 EST tetanus immune globulin Estimated Onset Date: Unspecified ; Comments: Comment 1: adverse reaction I get tetanus and my body will swell up ; Created By: Breanna Ivey Rn; Reaction Status: Active ; Category: Drug ; Substance: tetanus immune globulin ; Type: Allergy ; Updated By: Breanna Ivey Rn; Reviewed Date: 05/30/2021 18:31 EST Toradol Estimated Onset Date: Unspecified ; Comments: Comment 1: feels like a softball in chest and my chest goes numb ; Created By: Breanna Ivey Rn; Reaction Status: Active ; Category: Drug ; Substance: Toradol ; Type: Allergy ; Updated By: Breanna Ivey Rn; Reviewed Date: 05/30/2021 18:31 EST Diagnosis Control ED (As Of: 05/30/2021 18:32:32 EST) Problems(Active) Anxiety (SNOMED CT :37918813 ) Name of Problem: Anxiety ; Recorder: ERICKA ISSA RN; Confirmation: Confirmed ; Classification: Medical ; Code: 04550601 ; Contributor System: PowerChart ; Last Updated: 07/26/2015 22:28 EDT ; Life Cycle Date: 07/26/2015 ; Life Cycle Status: Active ; Vocabulary: SNOMED CT Endometriosis, vagina (SNOMED CT :77972593 ) Name of Problem: Endometriosis, vagina ; Recorder: Breanna Ivey RN; Confirmation: Confirmed ; Classification: Medical ; Code: [id number] ; Contributor System: PowerChart ; Last Updated: 05/24/2018 10:54 EST ; Life Cycle Date: 05/24/2018 ; Life Cycle Status: Active ; Vocabulary: SNOMED CT Kidney stones (SNOMED CT :040109743 ) Name of Problem: Kidney stones ; Recorder: KAYY ANDREW; Confirmation: Confirmed ; Classification: Medical ; Code: [id number] ; Contributor System: PowerChart ; Last Updated: 06/06/2016 9:30 EST ; Life Cycle Date: 06/06/2016 ; Life Cycle Status: Active ; Vocabulary: SNOMED CT Migraine (SNOMED CT :89273748 ) Name of Problem: Migraine ; Recorder: ERICKA ISSA RN; Confirmation: Confirmed ; Classification: Medical ; Code: [id number] ; Contributor System: PowerChart ; Last Updated: 07/26/2015 22:28 EDT ; Life Cycle Date: 07/26/2015 ; Life Cycle Status: Active ; Vocabulary: SNOMED CT S/P hysterectomy (SNOMED CT :883946544 ) Name of Problem: S/P hysterectomy ; Recorder: LEONID CASTANEDA RN; Confirmation: Confirmed ; Classification: Medical ; Code: [id number] ; Contributor System: PowerChart ; Last Updated: 11/06/2019 20:08 EDT ; Life Cycle Date: 11/06/2019 ; Life Cycle Status: Active ; Vocabulary: SNOMED CT Shoulder pain, left (SNOMED CT :80456815 ) Name of Problem: Shoulder pain, left ; Recorder: Breanna Ivey RN; Confirmation: Confirmed ; Classification: Medical ; Code: [id number] ; Contributor System: PowerChart ; Last Updated: 05/24/2018 10:53 EST ; Life Cycle Date: 05/24/2018 ; Life Cycle Status: Active ; Vocabulary: SNOMED CT Diagnoses(Active) Abdominal pain Date: 05/30/2021 ; Diagnosis Type: Reason For Visit ; Confirmation: Complaint of ; Clinical Dx: Abdominal pain ; Classification: Medical ; Clinical Service: Emergency medicine ; Code: PNED ; Probability: 0 ; Diagnosis Code: [id number] ED Height and Weight Height Source : Stated Height Entry Format : [place] Height, Feet : 5 ft(Converted to: 152 cm, 60 Inch) Height, Inches : 5 Inch(Converted to: 0 ft 5 Inch, 12.70 cm) Clinical Height : 165.1 cm Weight Source, ED : Critical estimated dosing weight Weight Entry Format : [place] Weight, Pounds : 170 lb Clinical Dosing Weight : 77.27 kg Body Surface Area (BSA) : 1.85 m2 Body Mass Index : 28.3 kg/m2 (HI) [place] Body Weight (IBW) : 56.59 kg SHAMA CASTILLO RN - 05/30/2021 18:30 EST Electronically signed by [facility], [facility] Conversion Making Department Preparer Cerner at 08/31/2022 5:12 PM CDT documented in this encounter Plan of Treatment Not on file documented as of this encounter Visit Diagnoses Not on filedocumented in this encounter Care Teams Seed Production Field Supervisor Relationship Specialty Start Date End Date lAan Beyer MD [address] [place] [address] PCP - General Family Medicine 06/08/23 documented as of this encounter
--- OUTSIDE RECORDS SUMMARY | 2024-11-05 10:17 | XMS_ITS | Referral Summary ---
Author Organization [employer] Address [address] [place] [address] Care Team Providers Care Broadcasting Equipment Mechanic Name Role Phone Alan Beyer MD Primary Care Provider [phone] Allergies Active Allergy Reactions Criticality Noted Date Comments Baclofen Hives High 07/20/2016 hives and cant breath Clindamycin Hives High 07/20/2016 Clindamycin Hcl Anaphylaxis High 12/20/2018 Doxycycline Hyclate Hives High 12/20/2018 Escitalopram Other (See Comments) 06/08/2023 Jerking movements and tremors Gold Au 198 12/20/2018 Lidocaine Rash Low 03/23/2022 9severe swelling, itching, rash Meperidine Anaphylaxis,Hives High 01/06/2013 hallucinations and angry Morphine Anaphylaxis High 07/20/2016 Nickel Hives High 09/21/2021 Oxycodone-Acetaminophe n High 03/23/2022 throws up and itching Penicillins Anaphylaxis,Hives High 07/20/2016 Pt has tolerated cefoxitin in 06/30, 06/01, and trying cefazolin hives and hives Sulfa (Sulfonamide Antibiotics) Anaphylaxis High 03/29/2021 Tetanus And Diphther. Tox (Pf) 12/20/2018 Tetanus And Diphtheria Toxoids 07/20/2016 Ketorolac Anxiety Low 10/05/2020 Medications acyclovir (ZOVIRAX) 5 % cream SMARTSIG:Topi robyn 4 Active albuterol HFA (VENTOLIN HFA) 90 mcg/actuation inhaler 3 Active busPIRone (BUSPAR) 15 MG tablet Take 1 tablet (15 mg total) by mouth 3 (three) times daily. 3 Active hydrocortisone 2.5 % cream Apply topically to affected area of skin along sides of nose BID PRN for up to 1 week, followed by 1 week off. Repeat as needed. 3 Active hydrOXYzine (ATARAX) 25 MG tablet Take 1 tablet (25 mg total) by mouth 3 (three) times daily. 3 Active methocarbamoL (ROBAXIN) 750 MG tablet Take 1 tablet (750 mg total) by mouth 3 (three) times daily. 4 Active omeprazole (PriLOSEC) 40 MG capsule Take 1 capsule (40 mg total) by mouth daily. 3 Active ondansetron (ZOFRAN-ODT) 4 MG disintegrating tablet 3 Active promethazine (PHENERGAN) 25 MG tablet Take by mouth. 3 Active vitamin E 200 UNIT capsule Take 1 capsule (200 Units total) by mouth. Active LORazepam (ATIVAN) 1 MG tablet Take 1 tablet (1 mg total) by mouth 2 (two) times daily. Active Active Problems Problem Noted Date Diagnosed Date Preop examination 06/08/2023 Mood disorder 06/08/2023 Anxiety 06/08/2023 Shoulder pain 06/08/2023 Alcoholism PONV (postoperative nausea and vomiting) Slow to wake up after anesthesia GERD (gastroesophageal reflux disease) Tobacco abuse Social History Tobacco Use Types Packs/Day Years Used Date Smoking Tobacco: Former Smokeless Tobacco: Never Tobacco Cessation:Counseling Given: Not [...] Date Manny rded Speak language other than Urdu at home Not on file 05/23/2023 Want [...] on file Sexual Orientation Not on file Last Filed Vital Signs Vital Sign Reading Time Taken Comments Blood Pressure 140/89 06/13/2023 9:00 AM EST Pulse 82 06/13/2023 9:00 AM EST Temperature 36.7 C (98.1 F) 06/13/2023 8:44 AM EST Respiratory Rate 14 06/13/2023 9:00 AM EST Oxygen Saturation 94% 06/13/2023 9:00 AM EST Inhaled Oxygen Concentration - - Weight 64.4 kg (142 lb) 06/13/2023 6:31 AM EST Height 165.1 cm (5' 5 ) 06/13/2023 6:31 AM EST Body Mass Index 23.63 06/13/2023 6:31 AM EST Plan of Treatment Not on file Insurance [facility] [place] [address] Advance Directives For more information, please contact: [phone] * Full Code (Latest Code Status on File) Date Activated Date Inactivated Comments 06/13/2023 8:10 AM 06/13/2023 10:29 AM * Full Code Date Activated Date Inactivated Comments 06/13/2023 6:03 AM 06/13/2023 8:10 AM Care Teams Broadcasting Equipment Mechanic Relationship Specialty Start Date End Date Alan Beyer MD [address] [place] [address] PCP - General Family Medicine 06/08/23
--- OUTSIDE RECORDS SUMMARY | 2024-11-05 10:17 | XMS_ITS | Encounter Summary ---
Author Organization [employer] Address [address] [place] [address] Care Team Providers Care Television Station Manager Name Role Phone Alan Beyer MD Primary Care Provider [phone] Encounter Details Date Type Department Care Team (Late st Contact Info) Description 03/16/2020 Transcribed Document [facility] – [place] [facility] [place] [address] ProviderJessenia MD [address] [place], [place] [id number] Social History Tobacco Use Types Packs/Day Years Used Date Smoking Tobacco: Never Assessed Comments Unknown Sex and Gender Information Value Date Recorded Sex Assigned at Not on file Legal Sex Female 4:28 PM CDT Gender Identity Not on file Sexual Orientation Not on file documented as of this encounter Miscellaneous Notes * Cerner Conversion Note - Jessenia Alvarez MD - 03/16/2020 7:23 PM COLLAR STARCHER Novel Coronavirus 2019 - - Negative 03/16/2020 18:18 03/16/2020 19:23 (JENNIFER HOWELL PA) Reviewed by Provider, No further action required Spoke with patient and informed of negative result. documented in this encounter Plan of Treatment Not on file documented as of this encounter Visit Diagnoses Not on filedocumented in this encounter Care Teams Television Station Manager Relationship Specialty Start Date End Date Alan Beyer MD [address] [place] [address] PCP - General Family Medicine 06/08/23 documented as of this encounter
--- OUTSIDE RECORDS SUMMARY | 2024-11-05 10:17 | XMS_ITS | Encounter Summary ---
Author Organization [employer] Address [address] [place] [address] Care Team Providers Care Fitting Room Maintenance Mechanic Name Role Phone Alan Beyer MD Primary Care Provider [phone] Encounter Details Date Type Department Care Team (Late st Contact Info) Description 07/13/2021 Transcribed Document [facility] – [place] Family Medicine [facility] [place] [address] ProviderJessenia MD [address] [place], [place] [id number] Social History Tobacco Use Types Packs/Day Years Used Date Smoking Tobacco: Never Assessed Comments Unknown Sex and Gender Information Value Date Recorded Sex Assigned at Not on file Legal Sex Female 4:28 PM CDT Gender Identity Not on file Sexual Orientation Not on file documented as of this encounter Miscellaneous Notes * Cerner Conversion Note - Jessenia Alvarez MD - 07/13/2021 12:47 PM LABORATORY TECH ED Discharge Entered On: 07/13/2021 12:48 EST Performed On: 07/13/2021 12:47 EST by Meka Louie RN-PATIENT CARE BEDSIDE NON-EXEMPT Discharge Process Patient Disposition : Admit/Observe Personal Belongings With Patient : Yes IV Discontinued : No Meka Louie RN-PATIENT CARE BEDSIDE NON-EXEMPT - 07/13/2021 12:47 EST Admission, ED Nurse Report Accepted By : 3rd floor RN Nurse Report Acceptance Time : 07/13/2021 12:48 EST `Nurse Report (Hand Off) : Called Meka Louie RN-PATIENT CARE BEDSIDE NON-EXEMPT - 07/13/2021 12:47 EST Electronically signed by Jannette, [facility] Conversion Health And Human Performance Professor Cerner at 08/31/2022 5:01 PM CDT documented in this encounter Plan of Treatment Not on file documented as of this encounter Visit Diagnoses Not on filedocumented in this encounter Care Teams Fitting Room Maintenance Mechanic Relationship Specialty Start Date End Date Alan Beyer MD [address] [place] [address] PCP - General Family Medicine 06/08/23 documented as of this encounter
--- OUTSIDE RECORDS SUMMARY | 2024-11-05 10:17 | XMS_ITS | Clinical Summary ---
Author Organization [employer] Address [address] [place] [address] Care Team Providers Care Electrical Power Engineer Name Role Phone Alan Beyer MD Primary Care Provider [phone] Allergies Active Allergy Reactions Criticality Noted Date [...] Date Manny rded Speak language other than Luxembourgish at home Not on file 05/23/2023 Want [...] 06/13/2023 6:31 AM EST Plan of Treatment Health Maintenance Due Date Last Done Comments Depression Screening (12+) 1994 HIV Screening 1997 Hepatitis C Screening 2000 DTAP/TDAP/TD VACCINES (1 - Tdap) 2001 Lipid Panel 2002 Pap Smear 11/06/2003 Pneumococcal Vaccine: 0-49 Y ears (2 of 2 - PCV) 02/20/2018 02/20/2017, 02/13/2017, 02/16/2016 Breast Cancer Screening 2022 COVID-19 VACCINE ( season) 2024 07/29/2021, 02/28/2021, 02/03/2021 Tobacco Cessation Counseling and Screening (12+) 06/13/2024 06/13/2023 Influenza Vaccine (Season Ended) 2025 02/16/2023, 02/09/2018, 02/13/2017 Insurance [facility] Advance Directives For more information, please contact: [phone] * Full Code (Latest Code Status on File) Date Activated Date Inactivated Comments 06/13/2023 8:10 AM 06/13/2023 10:29 AM * Full Code Date Activated Date Inactivated Comments 06/13/2023 6:03 AM 06/13/2023 8:10 AM Care Teams Electrical Power Engineer Relationship Specialty Start Date End Date Alan Beyer MD [address] [place] [address] PCP - General Family Medicine 06/08/23
--- OUTSIDE RECORDS SUMMARY | 2024-11-05 10:17 | XMS_ITS | Encounter Summary ---
Author Organization [employer] Address [address] [place] [address] Care Team Providers Care Marketing Programs Manager Name Role Phone Alan Beyer MD Primary Care Provider [phone] Encounter Details Date Type Department Care Team (Late st Contact Info) Description 02/08/2021 Transcribed Document [facility] [place] [facility] [address] ProviderJessenia MD [address] [place], [place] [address] Social History Tobacco Use Types Packs/Day Years [...] MD - 02/08/2021 5:59 PM CDT ED Triage Entered On: 02/08/2021 18:14 EDT Performed On: 02/08/2021 18:11 EDT by Jyoti Cordon RN ED Triage Across the Room Chief Complaint : Soa since yesterday. Aso with congestion and cough and VENTURA. Triage Date/Time : 02/08/2021 18:11 EDT Jyoti Cordon RN - 02/08/2021 18:11 EDT DCP GENERIC CODE Tracking Group : [facility] Tracking Acuity : 3 - Urgent Jyoti Cordon RN - 02/08/2021 18:11 EDT Mode of Arrival : Ambulatory Transported to ED by : Walk in To Room Via : Ambulate Accompanied By : Unaccompanied ED Vital Signs : Document Height & Weight : Document ED Allergies : Document ED Reason for Visit : Document ED Triage Treatments : Document Tetanus Immunization : Unknown Jyoti Cordon RN - 02/08/2021 18:11 EDT Infectious Disease History Does patient have symptoms of COVID-19? : Yes Has the Patient Been Tested for COVID-19 in the last 14 days? : No, Patient stated Does the Patient state known exposure to a COVID-19 positive case in the last 14 days? : No Patient Vaccinated for COVID-19 : Partially vaccinated or need booster Does Patient want a COVID-19 Vaccine? : No Jyoti Cordon RN - 02/08/2021 18:11 EDT Infectious Disease Risk Screening Grid Cough < 2 wks of unknown origin : NO Cough > 2 weeks : NO Blood in Sputum : NO Fever or self-reported Fever : NO Rash of unknown origin : NO Headache : NO Stiff neck : NO Night Sweats : NO Unexplained Weight Loss : NO Diarrhea (3 episode per day) : NO Jyoti Cordon RN - 02/08/2021 18:11 EDT Physical contact outside [place] in the last 30 days : No Hospitalized in Foreign Country : No Infectious Disease History : Chicken pox/Shingles, Herpes, Influenza, Mononucleosis INF Disease TB Screening Calc : 0 INF Disease Recent Travel Calc : 0 Jyoti Cordon RN - 02/08/2021 18:11 EDT Vital Signs ED Temperature Source : Oral Temperature Mode : Fahrenheit Temperature, Fahrenheit : 98.3 Deg F Clinical Temperature, C : 36.8 Deg C Systolic Blood Pressure : 138 mmHg Diastolic Blood Pressure : 94 mmHg (HI) Jyoti Cordon RN - 02/08/2021 18:15 EDT Oxygen Therapy Mode : Room air Peripheral Pulse Rate : 97 bpm Respiratory Rate : 18 Breaths/Min Oxygen Saturation : 98 % Jyoti Cordon RN - 02/08/2021 18:11 EDT Allergy (As Of: 02/08/2021 18:14:42 EDT) Allergies (Active) acetaminophen-oxyCODONE Estimated Onset Date: Unspecified [...] Type: Allergy ; Updated By: JAME ZUNIGA, JanD; Reviewed Date: 02/08/2021 18:13 EDT tetanus immune [...] 18:13 EDT Diagnosis Control ED (As Of: 02/08/2021 18:14:42 EDT) Problems(Active) Anxiety (SNOMED CT :96647872 ) Name of Problem: Anxiety ; Recorder: ERICKA ISSA RN; Confirmation: Confirmed ; Classification: Medical ; Code: [id number] ; Contributor System: PowerChart ; Last Updated: 07/26/2015 22:28 EDT ; Life Cycle Date: 07/26/2015 ; Life Cycle Status: Active ; Vocabulary: SNOMED CT Endometriosis, vagina (SNOMED CT :68212019 ) Name of Problem: Endometriosis, vagina ; Recorder: Breanna Ivey RN; Confirmation: Confirmed ; Classification: Medical ; Code: [id number] ; Contributor System: PowerChart ; Last Updated: 05/24/2018 10:54 EST ; Life Cycle Date: 05/24/2018 ; Life Cycle Status: Active ; Vocabulary: SNOMED CT Kidney stones (SNOMED CT :466194074 ) Name of Problem: Kidney stones ; Recorder: KAYY ANDREW; Confirmation: Confirmed ; Classification: Medical ; Code: [id number] ; Contributor System: PowerChart ; Last Updated: 06/06/2016 9:30 EST ; Life Cycle Date: 06/06/2016 ; Life Cycle Status: Active ; Vocabulary: SNOMED CT Migraine (SNOMED CT :32099286 ) Name of Problem: Migraine ; Recorder: ERICKA ISSA RN; Confirmation: Confirmed ; Classification: Medical ; Code: [id number] ; Contributor System: PowerChart ; Last Updated: 07/26/2015 22:28 EDT ; Life Cycle Date: 07/26/2015 ; Life Cycle Status: Active ; Vocabulary: SNOMED CT S/P hysterectomy (SNOMED CT :821790054 ) Name of Problem: S/P hysterectomy ; Recorder: LEONID CASTANEDA RN; Confirmation: Confirmed ; Classification: Medical ; Code: [id number] ; Contributor System: PowerChart ; Last Updated: 11/06/2019 20:08 EDT ; Life Cycle Date: 11/06/2019 ; Life Cycle Status: Active ; Vocabulary: SNOMED CT Shoulder pain, left (SNOMED CT :20106203 ) Name of Problem: Shoulder pain, left ; Recorder: Breanna Ivey RN; Confirmation: Confirmed ; Classification: Medical ; Code: [id number] ; Contributor System: PowerChart ; Last Updated: 05/24/2018 10:53 EST ; Life Cycle Date: 05/24/2018 ; Life Cycle Status: Active ; Vocabulary: SNOMED CT Diagnoses(Active) Cough Date: 02/08/2021 ; Diagnosis Type: Reason For Visit ; Confirmation: Complaint of ; Clinical Dx: Cough ; Classification: Medical ; Clinical Service: Emergency medicine ; Code: PNED ; Probability: 0 ; Diagnosis Code: [id number] ED Height and Weight Height Source : Stated Height Entry Format : [place] Height, Feet : 5 ft(Converted to: 152 cm, 60 Inch) Height, Inches : 1 Inch(Converted to: 0 ft 1 Inch, 2.54 cm) Clinical Height : 154.94 cm Weight Source, ED : Standing scale Weight Entry Format : [place] Weight, Pounds : 170 lb Clinical Dosing Weight : 77.27 kg Body Surface Area (BSA) : 1.76 m2 Body Mass Index : 32.2 kg/m2 (HI) [place] Body Weight (IBW) : 47.45 kg Jyoti Cordon RN - 02/08/2021 18:11 EDT Triage Initial Exam and Interventions, ED Level of Consciousness : Alert, Awake Affect/Behavior : Calm, Cooperative Orientation : Oriented x 4 Skin Temperature : Warm Skin Description : Normal for ethnicity Jyoti Cordon RN - 02/08/2021 18:11 EDT documented in this encounter Plan of Treatment Not on file documented as of this encounter Visit Diagnoses Not on filedocumented in this encounter Care Teams Marketing Programs Manager Relationship Specialty Start Date End Date Alan Beyer MD [address], [place] [id number] PCP - General Family Medicine 06/08/23 documented as of this encounter
--- OUTSIDE RECORDS SUMMARY | 2024-11-05 10:17 | XMS_ITS | Encounter Summary ---
Author Organization [employer] Address [address] [place] [address] Care Team Providers Care Legal Cashier Name Role Phone Alan Beyer MD Primary Care Provider [phone] Encounter Details Date Type Department Care Team (Late st Contact Info) Description 07/13/2021 Transcribed Document [facility] [place] Family Medicine [facility] [place] [address] ProviderJessenia MD [address] [place], [place] [address] Social History Tobacco Use Types Packs/Day Years Used Date Smoking Tobacco: Never Assessed Comments Unknown Sex and Gender Information Value Date Recorded Sex Assigned at Not on file Legal Sex Female 4:28 PM CDT Gender Identity Not on file Sexual Orientation Not on file documented as of this encounter Miscellaneous Notes * Cerner Conversion Note - Jessenia Alvarez MD - 07/13/2021 6:32 AM HONING MACHINE OPERATOR TOOL Patient: CHARLINE BOND Age: 40 years Sex: Female : 1980 Associated Diagnoses: Multiple drug allergies; Chest pain; Thoracic disc herniation; Hypokalemia Author: GROVER MEZA MD-EMR Basic Information Additional information: Chief Complaint from Nursing Triage Note : Chief Complaint 07/13/2021 1:52 EST Chief Complaint Pt co generalized chest pain that is shooting across chest that began x 2 hours ago while laying down in bed. pt is calm alert skinpwd. Pt given 324mg aspirin, 4 mg zofran, and x 1 SL Nitro with some relief. By EMS . History of Present Illness Planes of generalized chest pain that began 3 hours prior to arrival she was laying in bed she said the pain was wrapping around her chest going into her back it was bilateral and it radiated up into her shoulders both sides in her left neck this is not the 1st time she has had this pain but that is the worst chest pain she has had. Patient has a long history of fibromyalgia She has a very positive family history of cardiac disease her dad at age 45 of an ID and he was a smoker and her sister had an ID at 42 and she is a smoker patient is an occasional smoker Patient also complains of anxiety and states when she gets anxiety she gets dizzy when she walks and she has had that a lot recently not right now She has had some nausea No sweating given asa and ntg and zofran per squad Review of Systems Constitutional symptoms: No fever, no chills. Skin symptoms: No rash, Eye symptoms: Negative except as documented in HPI. ENMT symptoms: Negative except as documented in HPI. Respiratory symptoms: No shortness of breath, Cardiovascular symptoms: Chest pain. Gastrointestinal symptoms: Nausea, no abdominal pain, no vomiting, no diarrhea, no constipation. Genitourinary symptoms: Negative except as documented in HPI. Musculoskeletal symptoms: Back pain, Fibromyalgia. Neurologic symptoms: Headache, dizziness, Intermittently not at the moment. Psychiatric symptoms: Anxiety. Additional review of systems information: All other systems reviewed and otherwise negative. Health Status Allergies: Allergic Reactions (Selected) Severe Acetaminophen-oxyCODONE- No reactions were documented. Bactrim- No reactions were documented. Clindamycin- No reactions were documented. Severity Not Documented Baclofen- No reactions were documented. Doxycycline- No reactions were documented. Escitalopram- No reactions were documented. FentaNYL- No reactions were documented. Lidocaine topical 2% gel- No reactions were documented. Meperidine- No reactions were documented. Morphine- No reactions were documented. Penicillin- Hives. Tetanus immune globulin- No reactions were documented. Toradol- No reactions were documented.. Medications: (Selected) Prescriptions Prescribed Singulair 10 mg oral tablet: 1 Tab, Oral, QPM, 30 Tab, 0 Refill(s) predniSONE 10 mg oral tablet: See Instructions, Six-day tapering Dosepak, 21 Tab, 0 Refill(s) Documented Medications Documented Karine: Oral, Daily, 0 Refill(s) Premarin: Vaginal, Weekly, cream, 0 Refill(s) Robaxin-750 oral tablet: 1 Tab, Oral, Daily, 42 Tab, 0 Refill(s) Valtrex: 500 mg, Oral, Daily, fever blister, 0 Refill(s) ibuprofen: 400 mg, Oral, Q8H, PRN: as needed for pain, 0 Refill(s). Past Medical/ Family/ Social History Medical history Patient has had prior visits for chest pain she has 13 other EKGs on file. Surgical history: Clavicle ([id number]). Tympanostomy ([id number]). Adenoids (812416575). shoulder surgery. Gallbladder absent ([id number]). Tubal ligation (072093873). Hysterectomy (565725106). Right knee ([id number]). Comments: 05/03/2020 15:32 YENI - Jyoti Frazier Rn menisectomy, Reviewed as documented in chart. [...] stones Migraine S/P hysterectomy Shoulder pain, left . Physical Examination Vital Signs Vital Signs/Vital Measures 07/13/2021 6:30 EST Heart Rate Monitored 83 bpm Respiratory Rate 15 Breaths/Min Oxygen Saturation 98 % Oxygen Therapy Mode Room air 07/13/2021 6:00 EST Heart Rate Monitored 110 bpm HI Respiratory Rate 16 Breaths/Min Oxygen Saturation 100 % Oxygen Therapy Mode Room air 07/13/2021 5:35 EST Heart Rate Monitored 105 bpm HI Respiratory Rate 26 Breaths/Min HI Oxygen Saturation 100 % Oxygen Therapy Mode Room air 07/13/2021 5:03 EST Systolic Blood Pressure 135 mmHg Diastolic Blood Pressure 84 mmHg Mean Arterial Pressure (MAP)-BMDI 105 Heart Rate Monitored 95 bpm Respiratory Rate 16 Breaths/Min Oxygen Saturation 100 % Oxygen Therapy Mode Room air 07/13/2021 3:37 EST Systolic Blood Pressure 157 mmHg HI Diastolic Blood Pressure 96 mmHg HI Heart Rate Monitored 78 bpm Respiratory Rate 18 Breaths/Min Oxygen Saturation 100 % Oxygen Therapy Mode Room air 07/13/2021 3:20 EST Heart Rate Monitored 87 bpm Respiratory Rate 19 Breaths/Min Oxygen Saturation 100 % Oxygen Therapy Mode Room air 07/13/2021 2:05 EST Oxygen Therapy Mode Room air 07/13/2021 1:52 EST Systolic Blood Pressure 169 mmHg HI Diastolic Blood Pressure 105 mmHg HI Temperature Source Oral Temperature Mode Fahrenheit Temperature, Fahrenheit 98.0 Deg F Clinical Temperature, C 36.7 Deg C Peripheral Pulse Rate 84 bpm Respiratory Rate 18 Breaths/Min Oxygen Saturation 100 % Oxygen Therapy Mode Room air . Measurements 07/13/2021 1:52 EST Height Source Measured Height Entry Format [place] Height/Length, [place] (ft) 5 ft Height/Length [place] 5 Inch CLINICALHEIGHT 165.1 cm [place] Body Weight 56.59 kg Weight Source, ED Critical estimated dosing weight Weight Entry Format [place] Weight [place] lb 168 lb CLINICALWEIGHT 76.36 kg Body Surface Area (BSA) 1.84 m2 Body Mass Index 28 kg/m2 HI . Oxygen Saturation 07/13/2021 6:30 EST Oxygen Saturation 98 % 07/13/2021 6:00 EST Oxygen Saturation 100 % 07/13/2021 5:35 EST Oxygen Saturation 100 % 07/13/2021 5:03 EST Oxygen Saturation 100 % 07/13/2021 3:37 EST Oxygen Saturation 100 % 07/13/2021 3:20 EST Oxygen Saturation 100 % 07/13/2021 1:52 EST Oxygen Saturation 100 % . General: Alert, no acute distress. Skin: Warm, dry, intact. Head: Normocephalic, atraumatic. Neck: Supple. Eye: Pupils are equal, round and reactive to light, extraocular movements are intact, normal conjunctiva. Ears, nose, mouth and throat: Oral mucosa moist. Cardiovascular: Regular rate and rhythm, No murmur, Normal peripheral perfusion, No edema. Respiratory: Lungs are clear to auscultation, respirations are non-labored, breath sounds are equal. Chest wall: No tenderness, No deformity, NT to FROM torso. Back: Nontender, Normal range of motion. Musculoskeletal: Normal ROM, normal strength, no tenderness, no swelling, no deformity, pulses x 4. Gastrointestinal: Soft, Nontender, Non distended. Neurological: Alert and oriented to person, place, time, and situation, No focal neurological deficit observed. Psychiatric: Cooperative. Medical Decision Making Differential Diagnosis: Unstable angina, anxiety, atypical chest pain. Electrocardiogram: Rate 82, normal sinus rhythm, No ST changes, no ectopy, normal GA & QRS intervals, EP Interp, unchanged compared to prior. Electrocardiogram: Rate 84, normal sinus rhythm, no ectopy, normal GA & QRS intervals, EP Interp, no STEMI. Results review: Lab results : Lab Results 07/13/2021 6:15 EST Troponin I High Sensitivity 58.4 pg/mL 07/13/2021 4:05 EST Troponin I High Sensitivity 33.5 pg/mL 07/13/2021 2:00 EST Magnesium Level 1.8 mg/dL Urine Type. U CleanCatch Urine Color Yellow Urine Appearance Clear Urine Specific [place] *1.002 Urine pH Dipstick 6.0 Urine Leukocyte Esterase Negative Urine Nitrite Negative Urine Protein Dipstick Negative Urine Glucose Dipstick Negative Urine Ketones Dipstick Negative Urine Urobilinogen Dipstick 0.2 EU/dL Urine Bilirubin Dipstick Negative Urine Blood Dipstick Negative Urine Culture if Indicated Not Indicated HCG Urine Qualitative Negative 07/13/2021 1:58 EST Sodium Level 141 mmol/L Potassium Level 3.1 mmol/L LOW Chloride Level 111 mmol/L Carbon Dioxide Level 27 mmol/L Anion Gap 6 LOW Glucose Level 118 mg/dL HI Blood Urea Nitrogen 14 mg/dL CREATININE 0.81 mg/dL eGFR >60 mL/min/1.73m2 eGFR NonAfrican >60 mL/min/1.73m2 Bun/Creatinine 17.3 Calcium Level 8.4 mg/dL LOW Protein Total 7.0 Gram/dL Albumin Level 3.4 Gram/dL Globulin 3.6 Gram/dL A/G Ratio 0.9 LOW Bilirubin Total 0.2 mg/dL Alk Phos 76 Units/Liter AST 14 Units/Liter ALT 25 Units/Liter Troponin I High Sensitivity 12.6 pg/mL WBC 7.3 K/uL RBC 3.44 Million/uL LOW Hgb 12.1 Gram/dL Hct 36.4 % MCV 105.8 fL HI MCH 35.2 pg HI MCHC 33.2 Gram/dL Platelet Count 196 K/uL MPV 10.1 fL RDW 12.4 % Neut % 45.0 % Neut # 3.29 K/uL Lymph % 46.2 % Lymph # 3.38 K/uL [place] % 5.6 % [place] # 0.41 K/uL Eos % 2.6 % Eos # 0.19 K/uL Baso % 0.3 % Baso # 0.02 K/uL Slide Review No IG# 0 x10(3)/uL IG% 0 % . Radiology results: Radiology Results (Last 48 hours) [id number] -- 07/13/2021 01:46 CTA Chest (07/13/2021 06:03) Result: CT ANGIOGRAPHY OF THE CHEST: PE PROTOCOLHISTORY: Generalized chest pain, smokerTECHNIQUE: Thin-section axial images through the chest were performedfollowing the administration of intravenous contrast. Coronal oblique 3DMIP images were performed and reviewed. This study was performed withtechniques to keep radiation doses as low as reasonably achievable,(ALARA). Individualized dose reduction techniques using automatedexposure control or adjustment of mA and/or kV according to the patientsize were employed.COMPARISON: NoneFINDINGS:The thyroid gland and thoracic inlet are unremarkable. An azygos fissureis noted. There is no aneurysm or dissection. There is mild ectasia ofthe ascending aorta measuring 3.1 cm. Mild scattered vascularcalcifications are noted within the aorta. The pulmonary arteries arewell enhanced. There is no pulmonary embolism identified. The heart isnormal in size. There are no pleural or pericardial effusions. There isno adenopathy. There is no pulmonary nodule or mass. There is no edemaor infiltrate. There is mild bronchial thickening. The gallbladdersurgically absent. There is no biliary ductal dilation. There is mildfatty infiltration of the liver. There is a small hiatal hernia. Thereis mild disc space narrowing of the thoracic spine. There are smallcentral calcified disc protrusions at T8 and T9.IMPRESSION:1. There is mild ectasia of the ascending aorta measuring 3.1 cm in itsmidportion. There is no aneurysm or dissection. There is minimalscattered aortic vascular calcification.2. There is no pulmonary embolism.3. There is no evidence of edema or pneumonia. There are no effusions.There is some minimal bronchial thickening.4. There is no adenopathy. There are no effusions.5. There is a small hiatal hernia.Images reviewed, interpreted, and dictated by Gino Coat MD . Reexamination/ Reevaluation Patient took several doses of pain meds (dilaudid and phenergan) .They helped but did not take the pain away pt treated with dilaudid several times for her pain. Her troponins are trending up., EKG's are unchanged Potassium replaced I discussed the case with Dr Villa and they are going to come down and evaluate the patient. I am to bring her in on a 72 hour hold in the interim. He said no need give any more cardiac meds at this time. They will decide when they see her. I discussed it with the patient She requested more pain meds, I gave her more dilaudid and switched to zofran Procedure EDACS score low Impression and Plan Diagnosis Multiple drug allergies - Discharge, Emergency medicine, Medical Complaint of Chest pain - Reason For Visit, Emergency medicine, Medical Hypokalemia - Discharge, Emergency medicine, Medical Multiple drug allergies - Discharge, Emergency medicine, Medical Thoracic disc herniation - Discharge, Emergency medicine, Medical Plan Condition: Improved. Disposition: Admit Admit/Transfer/Discharge: Place in Observation (Order): Start: 07/13/2021 7:57 EST, Observation Reason: chest pain,, Unit type: Telemetry unit, Admitting: HEIDI VILLA MD-CAR. Addendum cc time 30 Electronically signed by Jannette [facility] Conversion Metal Products Fabricator Assembler Cerner at 08/31/2022 5:01 PM CDT documented in this encounter Plan of Treatment Not on file documented as of this encounter Visit Diagnoses Not on filedocumented in this encounter Care Teams Legal Cashier Relationship Specialty Start Date End Date Alan Beyer MD [address] [place] [address] PCP - General Family Medicine 06/08/23 documented as of this encounter
--- OUTSIDE RECORDS SUMMARY | 2024-11-05 10:17 | XMS_ITS | Encounter Summary ---
Author Organization [employer] Address [address] [place] [address] Care Team Providers Care Filling Hand Name Role Phone Alan Beyer MD Primary Care Provider [phone] Encounter Details Date Type Department Care Team (Late st Contact Info) Description 02/08/2021 Transcribed Document [facility] [place] [facility] [place] [address] ProviderJessenia MD [address] [place], [place] [address] Social History Tobacco Use Types Packs/Day Years Used Date Smoking Tobacco: Never Assessed Comments Unknown Sex and Gender Information Value Date Recorded Sex Assigned at Not on file Legal Sex Female 4:28 PM CDT Gender Identity Not on file Sexual Orientation Not on file documented as of this encounter Miscellaneous Notes * Cerner Conversion Note - Jessenia ProviderMD - 02/08/2021 10:54 PM CDT Electronically signed by [facility] Conversion Textile Coating Machine Operator Cerner at 08/31/2022 5:00 PM CDT documented in this encounter Plan of Treatment Not on file documented as of this encounter Visit Diagnoses Not on filedocumented in this encounter Care Teams Filling Hand Relationship Specialty Start Date End Date Alan Beyer MD [address] [place] [address] PCP - General Family Medicine 06/08/23 documented as of this encounter
--- OUTSIDE RECORDS SUMMARY | 2024-11-05 10:17 | XMS_ITS | Encounter Summary ---
Author Organization [employer] Address [address] [place] [address] Care Team Providers Care Adult Specialist Name Role Phone Alan Beyer MD Primary Care Provider [phone] Encounter Details Date Type Department Care Team (Late st Contact Info) Description 03/30/2021 Transcribed Document [facility] [place] [facility] [place] [address] ProviderJessenia MD [address] [place], [place] [id number] Social History Tobacco Use Types Packs/Day Years Used Date Smoking Tobacco: Never Assessed Comments Unknown Sex and Gender Information Value Date Recorded Sex Assigned at Not on file Legal Sex Female 4:28 PM CDT Gender Identity Not on file Sexual Orientation Not on file documented as of this encounter Miscellaneous Notes * Cerner Conversion Note - Jessenia Alvarez MD - 03/30/2021 4:40 AM MANAGER [place] ED Discharge Entered On: 03/30/2021 4:43 EST Performed On: 03/30/2021 4:40 EST by Mp Price, Jackscrew Man Process Patient Disposition : Discharge Personal Belongings With Patient : Yes Patient Education Completed : Yes Teaching Evaluation : Verbalizes understanding IV Discontinued : Yes Nursing Documentation Completed : Yes Mp Price Rn - 03/30/2021 4:42 EST ED Discharge Discharge To : Home with ambulatory/outpatient follow-up Discharge Instructions Reviewed With, Opportunity For Questions Given : Patient Prescriptions Given to Patient : Electronically sent Number of Prescriptions Given : 2 Medications Given to Patient : No Mp Price Rn - 03/30/2021 4:42 EST Electronically signed by Jannette, [facility] Conversion Oil [employer] Well Treatment Operator Cerner at 08/31/2022 4:57 PM CDT documented in this encounter Plan of Treatment Not on file documented as of this encounter Visit Diagnoses Not on filedocumented in this encounter Care Teams Adult Specialist Relationship Specialty Start Date End Date Alan Beyer MD [address] [place] [address] PCP - General Family Medicine 06/08/23 documented as of this encounter
--- OUTSIDE RECORDS SUMMARY | 2024-11-05 10:17 | XMS_ITS | Encounter Summary ---
Author Organization [employer] Address [address] [place] [address] Care Team Providers Care Wildlife Veterinarian Name Role Phone Alan Beyer MD Primary Care Provider [phone] Encounter Details Date Type Department Care Team (Late st Contact Info) Description 05/03/2020 Transcribed Document [facility] [place] Family Medicine [facility] [place] [address] ProviderJessenia MD [address] [place] [address] Social History Tobacco Use Types Packs/Day Years Used Date Smoking Tobacco: Never Assessed Comments Unknown Sex and Gender Information Value Date Recorded Sex Assigned at Not on file Legal Sex Female 4:28 PM CDT Gender Identity Not on file Sexual Orientation Not on file documented as of this encounter Miscellaneous Notes * Cerner Conversion Note - Jessenia Alvarez MD - 05/03/2020 4:53 PM HYDROMETALLURGICAL ENGINEER [place] [id number] CHARLINE BOND :1980 Visit Time:05/03/2020 Your Visit Summary Your Care Team Primary Provider: FRANCOISE BARRETT APRN-DORA Secondary Provider: Your Diagnosis Body aches Viral illness Medical Information You may obtain a copy [...] provider When Within 2 to 3 days Comments Please continue to monitor symptoms. Rest, fluids, and follow up with pcp in 1-2 days. Return to ER as needed. Allergies Bactrim acetaminophen-oxyCODONE clindamycin Toradol baclofen doxycycline escitalopram fentaNYL lidocaine topical 2% gel meperidine morphine penicillin (Hives) tetanus immune globulin Immunizations This Visit No Immunizations Found Medications What How Much When Instructions Next Dose conjugated estrogens (Premarin) Vaginal Weekly cream fexofenadine (Karine) Oral Every Day ibuprofen 400 Milligram(s) Oral Every 8 Hours as needed for as needed for pain methocarbamol (Robaxin-750 oral tablet) 1 Tablet(s) Oral Every Day ondansetron (Zofran ODT 4 mg oral tablet, disintegrating) 1 Tablet(s) Oral Every 4 Hours as needed for Nausea/Vomiting Duration: 3 Day(s) promethazine (promethazine 25 mg oral tablet) 1 Tablet(s) Oral Every 4 Hours as needed for as needed for nausea/vomiting Duration: 3 Day(s) can make you sleepy valACYclovir (Valtrex) 500 Milligram(s) Oral Every Day fever blister The home medications listed are only as [...] This Visit (last charted value for your 05/03/2020 visit) Microbiology 05/03/2020 3:12 PM Influenza A: Negative Influenza B: Negative Novel Coronavirus 2019: Negative Education Materials Viral Illness, Adult Viruses are tiny germs that can get into a person's body and cause illness. There are many different types of viruses, and they cause many types of illness. Viral illnesses can range from mild to severe. They can affect various parts of the body. Common illnesses that are caused by a virus include colds and the flu. Viral illnesses also include serious conditions such as HIV/AIDS (human immunodeficiency virus/acquired immunodeficiency syndrome). A few viruses have been linked to certain cancers. What are the causes? Many types of viruses can cause illness. Viruses invade cells in your body, multiply, and cause the infected cells to malfunction or . When the cell dies, it releases more of the virus. When this happens, you develop symptoms of the illness, and the virus continues to spread to other cells. If the virus takes over the function of the cell, it can cause the cell to divide and grow out of control, as is the case when a virus causes cancer. Different viruses get into the body in different ways. You can get a virus by: ??? Swallowing food or water that is contaminated with the virus. ??? Breathing in droplets that have been coughed or sneezed into the air by an infected person. ??? Touching a surface that has been contaminated with the virus and then touching your eyes, nose, or mouth. ??? Being bitten by an insect or animal that carries the virus. ??? Having sexual contact with a person who is infected with the virus. ??? Being exposed to blood or fluids that contain the virus, either through an open cut or during a transfusion. If a virus enters your body, your body's defense system (immune system) will try to fight the virus. You may be at higher risk for a viral illness if your immune system is weak. What are the signs or symptoms? Symptoms vary depending on the type of virus and the location of the cells that it invades. Common symptoms of the main types of viral illnesses include: Cold and flu viruses ??? Fever. ??? Headache. ??? Sore throat. ??? Muscle aches. ??? Nasal congestion. ??? Cough. Digestive system (gastrointestinal) viruses ??? Fever. ??? Abdominal pain. ??? Nausea. ??? Diarrhea. Liver viruses (hepatitis) ??? Loss of appetite. ??? Tiredness. ??? Yellowing of the skin (jaundice). Brain and spinal cord viruses ??? Fever. ??? Headache. ??? Stiff neck. ??? Nausea and vomiting. ??? Confusion or sleepiness. Skin viruses ??? Warts. ??? Itching. ??? Rash. Sexually transmitted viruses ??? Discharge. ??? Swelling. ??? Redness. ??? Rash. How is this treated? Viruses can be difficult to treat because they live within cells. Antibiotic medicines do not treat viruses because these drugs do not get inside cells. Treatment for a viral illness may include: ??? Resting and drinking plenty of fluids. ??? Medicines to relieve symptoms. These can include sqkn-aio-pydrnih medicine for pain and fever, medicines for cough or congestion, and medicines to relieve diarrhea. ??? Antiviral medicines. These drugs are available only for certain types of viruses. They may help reduce flu symptoms if taken early. There are also many antiviral medicines for hepatitis and HIV/AIDS. Some viral illnesses can be prevented with vaccinations. A common example is the flu shot. Follow these instructions at home: Medicines ??? Take ydcy-zfu-yvirrmz and prescription medicines only as told by your health care provider. ??? If you were prescribed an antiviral medicine, take it as told by your health care provider. Do not stop taking the medicine even if you start to feel better. ??? Be aware of when antibiotics are needed and when they are not needed. Antibiotics do not treat viruses. If your health care provider thinks that you may have a bacterial infection as well as a viral infection, you may get an antibiotic. ? Do not ask for an antibiotic prescription if you have been diagnosed with a viral illness. That will not make your illness go away faster. ? Frequently taking antibiotics when they are not needed can lead to antibiotic resistance. When this develops, the medicine no longer works against the bacteria that it normally fights. General instructions ??? Drink enough fluids to keep your urine clear or pale yellow. ??? Rest as much as possible. ??? Return to your normal activities as told by your health care provider. Ask your health care provider what activities are safe for you. ??? Keep all follow-up visits as told by your health care provider. This is important. How is this prevented? Take these actions to reduce your risk of viral infection: ??? Eat a healthy diet and get enough rest. ??? Wash your hands often with soap and water. This is especially important when you are in public places. If soap and water are not available, use hand research program manager. ??? Avoid close contact with friends and family who have a viral illness. ??? If you travel to areas where viral gastrointestinal infection is common, avoid drinking water or eating raw food. ??? Keep your immunizations up to date. Get a flu shot every year as told by your health care provider. ??? Do not share toothbrushes, nail clippers, razors, or needles with other people. ??? Always practice safe sex. Contact a health care provider if: ??? You have symptoms of a viral illness that do not go away. ??? Your symptoms come back after going away. ??? Your symptoms get worse. Get help right away if: ??? You have trouble breathing. ??? You have a severe headache or a stiff neck. ??? You have severe vomiting or abdominal pain. This information is not intended to replace advice given to you by your health care provider. Make sure you discuss any questions you have with your health care provider. Document Released: 09/08/2016 Document Revised: 04/12/2018 Document Reviewed: 09/08/2016 [employer] Patient Education ?? 2020 [facility]. Emergency Awareness and Preventative Care STROKE is [...] Assistance with quitting is available by contacting 6-344-CCCPNOW. This is a free resource providing counseling, support, and referral. Or you may contact your personal physician. [employer] Suicide Prevention Lifeline: The National Suicide Prevention [...] radiology, or pathology physicians. Patient Name:CHARLINE BOND DENIZ I have received this information and was given the opportunity to ask questions. Patient/Transition Nurse Name: Patient/Transition Nurse Signature: Relationship to Patient: Clinician/Hospital Transition Nurse Signature: Please Provide a Telephone Number Where You Can Be Reached: Is it Permissible To Leave a Message? Date: Electronically signed by Jannette, [facility] Conversion Manual Arts Teacher Cerner at 08/31/2022 4:59 PM CDT documented in this encounter Plan of Treatment Not on file documented as of this encounter Visit Diagnoses Not on filedocumented in this encounter Care Teams Wildlife Veterinarian Relationship Specialty Start Date End Date Alan Beyer MD [address] [facility] [place] [address] PCP - General Family Medicine 06/08/23 documented as of this encounter
--- OUTSIDE RECORDS SUMMARY | 2024-11-05 10:17 | XMS_ITS | Encounter Summary ---
Author Organization [employer] Address [address] [place] [address] Care Team Providers Care Pipe Stress Engineer Name Role Phone Alan Beyer MD Primary Care Provider [phone] Encounter Details Date Type Department Care Team (Late st Contact Info) Description 05/03/2020 Transcribed Document [facility] [place] Family Medicine [facility] [place] [address] ProviderJessenia MD [address] [place] [address] Social History Tobacco Use Types Packs/Day Years Used Date Smoking Tobacco: Never Assessed Comments Unknown Sex and Gender Information Value Date Recorded Sex Assigned at Not on file Legal Sex Female 4:28 PM CDT Gender Identity Not on file Sexual Orientation Not on file documented as of this encounter Miscellaneous Notes * Cerner Conversion Note - Jessenia Alvarez MD - 05/03/2020 5:01 PM CONTRACT CLERK AUTOMOBILE ED Discharge Entered On: 05/03/2020 17:02 EST Performed On: 05/03/2020 17:01 EST by Jyoti Cordon physiological chemist Process Patient Disposition : Discharge Personal Belongings With Patient : Yes Patient Education Completed : Yes Teaching Evaluation : Verbalizes understanding Education Comment : Pt is alert and oriented for DC teaching and ambulates to ED exit with steady gait. IV Discontinued : Not applicable Nursing Documentation Completed : Yes Jyoti Cordon RN - 05/03/2020 17:01 EST ED Discharge Discharge To : Home without planned follow-up Mode Of Departure : Ambulatory Accompanied By : Unaccompanied Discharge Instructions Reviewed With, Opportunity For Questions Given : Patient Jyoti Cordon RN - 05/03/2020 17:01 EST Electronically signed by [facility], [facility] Conversion Histology Aide Cerner at 08/31/2022 5:18 PM CDT documented in this encounter Plan of Treatment Not on file documented as of this encounter Visit Diagnoses Not on filedocumented in this encounter Care Teams Pipe Stress Engineer Relationship Specialty Start Date End Date Alan Beyer MD [address] [place] [address] PCP - General Family Medicine 06/08/23 documented as of this encounter
--- OUTSIDE RECORDS SUMMARY | 2024-11-05 10:17 | XMS_ITS | Encounter Summary ---
Author Organization [employer] Address [address] [place] [address] Care Team Providers Care Cabin Cleaner Name Role Phone Alan Beyer MD Primary Care Provider [phone] Encounter Details Date Type Department Care Team (Late st Contact Info) Description 03/16/2020 Transcribed Document [facility] Family Medicine [facility] [place] [address] ProviderJessenia MD [address] [place], [place] [address] Social History Tobacco Use Types Packs/Day Years Used Date Smoking Tobacco: Never Assessed Comments Unknown Sex and Gender Information Value Date Recorded Sex Assigned at Not on file Legal Sex Female 4:28 PM CDT Gender Identity Not on file Sexual Orientation Not on file documented as of this encounter Miscellaneous Notes * Cerner Conversion Note - Jessenia ProviderMD - 03/16/2020 5:00 PM MONEY EXAMINER documented in this encounter Plan of Treatment Not on file documented as of this encounter Visit Diagnoses Not on filedocumented in this encounter Care Teams Cabin Cleaner Relationship Specialty Start Date End Date Alan Beyer MD [address] [place] [address] PCP - General Family Medicine 06/08/23 documented as of this encounter
--- OUTSIDE RECORDS SUMMARY | 2024-11-05 10:17 | XMS_ITS | Encounter Summary ---
Author Organization [employer] Address [address] [place] [address] Care Team Providers Care Hcc Coders Name Role Phone Alan Beyer MD Primary Care Provider [phone] Encounter Details Date Type Department Care Team (Late st Contact Info) Description 03/16/2020 Transcribed Document [facility] [place] [facility] [address] ProviderJessenia MD [address] [place] [address] Social History Tobacco Use Types Packs/Day Years Used Date Smoking Tobacco: Never Assessed Comments Unknown Sex and Gender Information Value Date Recorded Sex Assigned at Not on file Legal Sex Female 4:28 PM CDT Gender Identity Not on file Sexual Orientation Not on file documented as of this encounter Miscellaneous Notes * Cerner Conversion Note - Jessenia Alvarez MD - 03/16/2020 1:15 PM FRONT END WHEEL LOADER OPERATOR [place] Suicide Severity Rating Scale (C-SSRS) Entered On: 03/16/2020 16:17 EST Performed On: 03/16/2020 16:17 EST by SHAMA CASTILLO RN [place] Suicide Severity Rating Scale (C-SSRS) CSSRS Past Month Wish to be : No CSSRS Past Month Suicidal Thoughts : No CSSRS Lifetime Suicide Behavior : No Suicide Severity Rating Score : 0 Suicide Severity Rating : No Additional Care Required at this time SHAMA CASTILLO RN - 03/16/2020 16:17 EST documented in this encounter Plan of Treatment Not on file documented as of this encounter Visit Diagnoses Not on filedocumented in this encounter Care Teams Hcc Coders Relationship Specialty Start Date End Date Alan Beyer MD [address] [place] [address] PCP - General Family Medicine 06/08/23 documented as of this encounter
--- OUTSIDE RECORDS SUMMARY | 2024-11-05 10:17 | XMS_ITS | Encounter Summary ---
Author Organization [employer] Address [address] [place] [address] Care Team Providers Care Public Employment Mediator Name Role Phone Alan Beyer MD Primary Care Provider [phone] Encounter Details Date Type Department Care Team (Late st Contact Info) Description 05/30/2021 Transcribed Document [facility] [place] Family Medicine [facility] [place] [address] ProviderJessenia MD [address] [place], [place] [address] Social History Tobacco Use Types Packs/Day Years Used Date Smoking Tobacco: Never Assessed Comments Unknown Sex and Gender Information Value Date Recorded Sex Assigned at Not on file Legal Sex Female 4:28 PM CDT Gender Identity Not on file Sexual Orientation Not on file documented as of this encounter Miscellaneous Notes * Cerner Conversion Note - Jessenia Alvarez MD - 05/30/2021 6:15 PM AUTOMATION LEAD ED Assessment Entered On: 05/30/2021 21:17 EST Performed On: 05/30/2021 20:53 EST by VANDANA KHALIL RN-PATIENT CARE BEDSIDE NON-EXEMPT ED Quick Look Assessment Level of Consciousness : Alert Affect/Behavior : Appropriate Orientation : Oriented x 4 Skin Temperature : Warm Skin Description : Normal for ethnicity VANDANA KHALIL RN-PATIENT CARE BEDSIDE NON-EXEMPT - 05/30/2021 20:53 EST ED General-Functional Assess Information Obtained From : Patient Preferred Communication Mode : Verbal Communication Barrier : None Primary Language : Maori Any Spiritual/Cultural Needs or Requests : No Currently in Unsafe Situation : No VANDANA KHALIL RN-PATIENT CARE BEDSIDE NON-EXEMPT - 05/30/2021 20:53 EST Social Habits Smoking Status : 4 or less cigarettes(less than 1/4 pack)/day in last 30 days Smokeless Tobacco Status : Never Desires Tobacco Cessation Medication : No Reason for No Tobacco Cessation Medication : Refuses FDA approved medications Desires Tobacco Cessation Calc : 1 VANDANA KHALIL RN-PATIENT CARE BEDSIDE NON-EXEMPT - 05/30/2021 20:53 EST Social History (As Of: 05/30/2021 21:17:06 EST) Tobacco: 4 or less cigarettes(less than 1/4 [...] 05/24/2018 10:39:04 EST by Breanna Ivey, RN) Gastrointestinal ED Gastrointestinal Assessment WDL : WDL with exceptions (Comment: Pt reports to ED with c/o abd pain possibly r/t cyst on ovary. [VANDANA KHALIL RN-PATIENT CARE BEDSIDE NON-EXEMPT - 05/30/2021 20:53 EST] ) Gastrointestinal Symptoms : Abdominal pain VANDANA KHALIL RN-PATIENT CARE BEDSIDE NON-EXEMPT - 05/30/2021 20:53 EST Electronically signed by Jannette, [facility] Conversion Car Installations Supervisor Cerner at 08/31/2022 5:01 PM CDT documented in this encounter Plan of Treatment Not on file documented as of this encounter Visit Diagnoses Not on filedocumented in this encounter Care Teams Public Employment Mediator Relationship Specialty Start Date End Date Alan Beyer MD [address] [place] [address] PCP - General Family Medicine 06/08/23 documented as of this encounter
--- OUTSIDE RECORDS SUMMARY | 2024-11-05 10:17 | XMS_ITS | Encounter Summary ---
Author Organization [employer] Address [address] [place] [address] Care Team Providers Care Brazing Machine Tender Name Role Phone Alan Beyer MD Primary Care Provider [phone] Encounter Details Date Type Department Care Team (Late st Contact Info) Description 05/03/2020 Transcribed Document [facility] [place] Family Medicine [address] [place] [address] ProviderJessenia MD [address] [place] [address] Social History Tobacco Use Types [...] Jessenia Alvarez MD - 05/03/2020 2:55 PM DATAPOWER CONSULTANT ED Assessment Entered On: 05/03/2020 15:39 EST Performed On: 05/03/2020 15:32 EST by Jyoti Frazier, brand sales consultant General-Functional Assess Information Obtained From : Patient Preferred Communication Mode : Verbal Communication Barrier : None Primary Language : Kenyan Any Spiritual/Cultural Needs or Requests : No Currently in Unsafe Situation : No Jyoti Frazier Rn - 05/03/2020 15:32 EST Patient/Family Strip Polisher Communication Primary Language : Kenyan Jyoti Frazier Rn - 05/03/2020 15:32 EST ED Psychosocial Assessment Affect/Behavior : Appropriate, Calm, Cooperative Jyoti Frazier Rn - 05/03/2020 15:32 EST Social Habits Smoking Status : 4 or less cigarettes(less than 1/4 pack)/day in last 30 days Smokeless Tobacco Status : Smokeless tobacco user within last 30 days Desires Tobacco Cessation Medication : No Reason for No Tobacco Cessation Medication : ED/procedural patient only Desires Tobacco Cessation Calc : 2 Jyoti Frazier Rn - 05/03/2020 15:32 EST Social History (As Of: 05/03/2020 15:39:53 EST) Tobacco: 4 or less cigarettes(less than 1/4 pack)/day in last 30 days Smoking Status. Never Smokeless Tobacco Status. (Last Updated: 05/03/2020 15:34:43 EST by Jyoti Frazier, Rn) 10 or more cigarettes (1/2 pack [...] 05/24/2018 10:39:04 EST by Breanna Ivey, ELVER) EENT Assessment EENT Assessment WDL : WDL with exceptions Ear Assessment, Right : Pain Nasal Assessment, General : Congestion, generalized Throat : Other: irritated Mouth/Throat Assessment Comment : decreased taste Jyoti Frazier Rn - 05/03/2020 15:32 EST Cardiovascular ASMT, ED Cardiovascular Assessment WDL : WDL Jyoti Frazier Rn - 05/03/2020 15:32 EST Respiratory Respiratory Assessment WDL : WDL with exceptions Cough : Dry, Occasional Respiratory Assessment Comment : SOA, painful breathing Jyoti Frazier, Elver - 05/03/2020 15:32 EST Oxygen Therapy Oxygen Therapy Mode : Room air Jyoti FrazierElver - 05/03/2020 15:32 EST Gastrointestinal ED Gastrointestinal Symptoms : Nausea Jyoti FrazierElver - 05/03/2020 15:32 EST Genitourinary Assessment, ED Genitourinary Assessment WDL : WD Jyoti Frazier Elver Moralez - 05/03/2020 15:32 EST Musculoskeletal Musculoskeletal Assessment WDL : WDL Jyoti Frazier Elver Moralez - 05/03/2020 15:32 EST Integumentary Assessment Integumentary Assessment WDL : WD Benoit Fraziermartha Moralez Rn - 05/03/2020 15:32 EST Neurologic ASMT, ED Neurological Symptoms : Dizziness, Headache, Other: lightheaded Jyoti FrazierElver - 05/03/2020 15:32 EST Pain Assessment Pain Assessment : Initial assessment Pain Scale Used : 0-10 Scale Location : Generalized, Head Onset : Abrupt Quality : Aching Pain Worsened by : Breathing, Movement, Palpation, Other: coughing Jyoti Frazier Elver Moralez - 05/03/2020 15:32 EST Pain Scale Intensity : 8 Jyoti FrazierElver - 05/03/2020 15:32 EST Image 4 - Images currently included in the form version of this document have not been included in the text rendition version of the form. documented in this encounter Plan of Treatment Not on file documented as of this encounter Visit Diagnoses Not on filedocumented in this encounter Care Teams Brazing Machine Tender Relationship Specialty Start Date End Date Alan Beyer MD [address] [place], [place] [id number] PCP - General Family Medicine 06/08/23 documented as of this encounter
--- OUTSIDE RECORDS SUMMARY | 2024-11-05 10:17 | XMS_ITS | Encounter Summary ---
Author Organization [employer] Address [address] [place] [address] Care Team Providers Care Puzzle Assembler Name Role Phone Alan Beyer MD Primary Care Provider [phone] Encounter Details Date Type Department Care Team (Late st Contact Info) Description 07/04/2018 Transcribed Document [facility] [place] [facility] [place] [address] ProviderJessenia MD [address] [place] [address] Social History Tobacco Use Types Packs/Day Years Used Date Smoking Tobacco: Never Assessed Comments Unknown Sex and Gender Information Value Date Recorded Sex Assigned at Not on file Legal Sex Female 4:28 PM CDT Gender Identity Not on file Sexual Orientation Not on file documented as of this encounter Miscellaneous Notes * Cerner Conversion Note - Jessenia Alvarez MD - 07/04/2018 2:55 PM VALVE MAKER Pain Assessment Entered On: 07/04/2018 16:09 EST Performed On: 07/04/2018 15:32 EST by SHAMA CASTILLO Rn Intervention Information: HYDROmorphone Performed by SHAMA CASTILLO Rn on 07/04/2018 15:02:00 EST HYDROmorphone,0.5mg IV Push,Right Antecubit Tony Pain Assessment Pain Assessment : Follow-up assessment Pain Scale Used : 0-10 Scale SHAMA CASTILLO Rn - 07/04/2018 16:09 EST Pain Scale Intensity : 4 SHAMA CASTILLO Rn - 07/04/2018 16:09 EST Image 4 - Images currently included in the form version of this document have not been included in the text rendition version of the form. documented in this encounter Plan of Treatment Not on file documented as of this encounter Visit Diagnoses Not on filedocumented in this encounter Care Teams Puzzle Assembler Relationship Specialty Start Date End Date Alan Beyer MD [address] [place] [address] PCP - General Family Medicine 06/08/23 documented as of this encounter
--- OUTSIDE RECORDS SUMMARY | 2024-11-05 10:17 | XMS_ITS | Encounter Summary ---
Author Organization [employer] Address [address] [place] [address] Care Team Providers Care Door Glass Installer Name Role Phone Alan Beyer MD Primary Care Provider [phone] Encounter Details Date Type Department Care Team (Late st Contact Info) Description 05/03/2020 Transcribed Document [facility] [place] Family Medicine [facility] [place] [address] ProviderJessenia MD [address] [place] [address] Social History Tobacco Use Types Packs/Day Years Used Date Smoking Tobacco: Never Assessed Comments Unknown Sex and Gender Information Value Date Recorded Sex Assigned at Not on file Legal Sex Female 4:28 PM CDT Gender Identity Not on file Sexual Orientation Not on file documented as of this encounter Miscellaneous Notes * Cerner Conversion Note - Jessenia ProviderMD - 05/03/2020 10:20 PM PADDOCK JUDGE Novel Coronavirus 2018 - - Negative 05/03/2020 16:14 05/03/2020 22:20 (FRANCOISE BARRETT, OCCUPATIONAL THERAPIST-EMR) Reviewed by Provider, No further action required documented in this encounter Plan of Treatment Not on file documented as of this encounter Visit Diagnoses Not on filedocumented in this encounter Care Teams Door Glass Installer Relationship Specialty Start Date End Date Alan Beyer MD [address] [place] [address] PCP - General Family Medicine 06/08/23 documented as of this encounter
--- OUTSIDE RECORDS SUMMARY | 2024-11-05 10:17 | XMS_ITS | Encounter Summary ---
Author Organization [employer] Address [address] [place] [address] Care Team Providers Care Clothes Model Name Role Phone Alan Beyer MD Primary Care Provider [phone] Encounter Details Date Type Department Care Team (Late st Contact Info) Description 05/03/2020 Transcribed Document [facility] [place] [facility] [place] [address] ProviderJessenia MD [address] [place] [address] Social History Tobacco Use Types [...] Jessenia Alvarez MD - 05/03/2020 2:55 PM ANALYTICAL DATA MINER [place] Suicide Severity Rating Scale (C-SSRS) Entered On: 05/03/2020 15:30 EST Performed On: 05/03/2020 15:30 EST by Jyoti Frazier Rn [place] Suicide Severity Rating Scale (C-SSRS) CSSRS Past Month Wish to be : No CSSRS Past Month Suicidal Thoughts : No CSSRS Lifetime Suicide Behavior : No Suicide Severity Rating Score : 0 Suicide Severity Rating : No Additional Care Required at this time Jyoti Frazier Rn - 05/03/2020 15:30 EST Electronically signed by Jannette [facility] Conversion Sales Route Driver Cerner at 08/31/2022 5:19 PM CDT documented in this encounter Plan of Treatment Not on file documented as of this encounter Visit Diagnoses Not on filedocumented in this encounter Care Teams Clothes Model Relationship Specialty Start Date End Date Alan Beyer MD [address] [id number] PCP - General Family Medicine 06/08/23 documented as of this encounter
--- OUTSIDE RECORDS SUMMARY | 2024-11-05 10:17 | XMS_ITS | Encounter Summary ---
Author Organization [employer] Address [address] [place] [address] Care Team Providers Care Curtain Drier Name Role Phone Alan Beyer MD Primary Care Provider [phone] Encounter Details Date Type Department Care Team (Late st Contact Info) Description 05/30/2021 Transcribed Document [facility] [place] [facility] [place] [address] ProviderJessenia MD [address] [place] [id number] Social History Tobacco Use Types Packs/Day Years Used Date Smoking Tobacco: Never Assessed Comments Unknown Sex and Gender Information Value Date Recorded Sex Assigned at Not on file Legal Sex Female 4:28 PM CDT Gender Identity Not on file Sexual Orientation Not on file documented as of this encounter Miscellaneous Notes * Cerner Conversion Note - Jessenia Alvarez MD - 05/30/2021 7:25 PM ASSOCIATE MERCHANDISER Patient: CHARLINE BOND Age: 40 years Sex: Female : 1980 Associated Diagnoses: Abdominal pain; Right ovarian cyst; Nasal congestion; Hypokalemia Author: GROVER MEZA MD-EMR Basic Information Additional information: Chief Complaint from Nursing Triage Note : Chief Complaint 05/30/2021 18:30 EST Chief Complaint Pt c/o lower abd pain, sinusitis, been on abx for it, nothing goes in or out of right nostrils. . History of Present Illness Major complaints 1 she has had right nostril clogging for the last several weeks her doctor put her on a course of Levaquin and Decadron she did not get any better and she still cannot breathe in or out of her right nostril she is not using her Flonase because she cannot sniff through it so it is not going up there [place] #2 is right lower quadrant abdominal pain which feels like her ovary cyst might be acting up again its been getting worse all day started in the right lower quadrant and has stayed in the right lower quadrant and it is a 9 out of 10 pain Patient states she has had her left ovary removed and a hysterectomy. Review of Systems Constitutional symptoms: No fever, no chills. Skin symptoms: No rash, Eye symptoms: Negative except as documented in HPI. ENMT symptoms: Negative except as documented in HPI. Respiratory symptoms: No shortness of breath, Cardiovascular symptoms: No chest pain, Gastrointestinal symptoms: Abdominal pain, nausea, no vomiting, no diarrhea, no constipation. Genitourinary symptoms: No dysuria, no vaginal bleeding, no vaginal discharge. Musculoskeletal symptoms: No back pain, Neurologic symptoms: Patient states that her clogged sinuses have been making her dizzy at times, No headache, Additional review of systems information: All other [...] were documented. Toradol- No reactions were documented.. Past Medical/ Family/ Social History Medical history Reviewed as documented in chart. See Problem list below. I have reviewed it.. Surgical history: Clavicle ([id number]). Tympanostomy ([id number]). Adenoids ([id number]). shoulder surgery. Gallbladder absent ([id number]). Tubal ligation ([id number]). Hysterectomy ([id number]). Right knee ([id number]). Comments: 05/03/2020 15:32 YENI - Jyoti Frazier Rn menisectomy, Reviewed as documented in chart. Family history: Heart attack Father Sister Coronary heart disease Father Sister . Social history: Social & Psychosocial Habits Alcohol [...] Physical Examination Vital Signs Vital Signs/Vital Measures 05/30/2021 18:30 EST Systolic Blood Pressure 157 mmHg HI Diastolic Blood Pressure 97 mmHg HI Temperature Source Temporal artery scanning Temperature Mode Fahrenheit Temperature, Fahrenheit 97.8 Deg F Clinical Temperature, C 36.6 Deg C Peripheral Pulse Rate 97 bpm Respiratory Rate 18 Breaths/Min Oxygen Saturation 100 % Oxygen Therapy Mode Room air . Measurements 05/30/2021 18:30 EST Height Source Stated Height Entry Format [place] Height/Length, IVORIAN (ft) 5 ft Height/Length IVORIAN 5 Inch CLINICALHEIGHT 165.1 cm [place] Body Weight 56.59 kg Weight Source, ED Critical estimated dosing weight Weight Entry Format [place] Weight Vincentian lb 170 lb CLINICALWEIGHT 77.27 kg Body Surface Area (BSA) 1.85 m2 Body Mass Index 28.3 kg/m2 HI . Oxygen Saturation 05/30/2021 18:30 EST Oxygen Saturation 100 % . General: Alert, mild distress. Skin: Warm, dry. Head: Normocephalic, atraumatic. Neck: Supple. Eye: Pupils are equal, round and reactive to light, extraocular movements are intact, normal conjunctiva. Ears, nose, mouth and throat: Oral mucosa moist, no pharyngeal erythema or exudate, Turbinates edematous with congestion noted no pus no facial swelling. Cardiovascular: Regular rate and rhythm. Respiratory: Lungs are clear to auscultation, respirations are non-labored, breath sounds are equal, Symmetrical chest wall expansion. Gastrointestinal: Soft, Non distended, Tenderness: Mild, right lower quadrant, Guarding: Negative, Rebound: Negative, Signs: McBurney's negative, Selby's negative, Rovsing's negative. Back: Nontender, Normal range of motion. Musculoskeletal: Normal ROM, normal strength. Neurological: Alert and oriented to person, place, time, and situation, No focal neurological deficit observed. Psychiatric: Cooperative. Medical Decision Making Differential Diagnosis: Abdominal pain. Documents reviewed: Emergency department nurses' notes. Orders Place New Orders Patient Care: Saline Lock Insert (Order): Start: 05/30/2021 19:26 EST Pharmacy: Afrin 0.05% nasal spray (Order): 1 [place], Nostrils Both, 1-Time Dilaudid (Order): 1 mg, IV Push, 1-Time Phenergan (Order): 6.25 mg, IV Push, 1-Time, Place New Orders Laboratory: Magnesium Level (Order): Specimen Type: Blood, Stat collect, 05/30/2021 19:28 EST, 1-Time, Stop: 05/30/2021 19:28 EST, Nurse Collect CMP Comprehensive Metabolic Panel (Order): Specimen Type: Blood, Stat collect, 05/30/2021 19:27 EST, 1-Time, Stop: 05/30/2021 19:27 EST, Nurse Collect Urinalysis UA Rflx Microscopic Cult if Ind (Order): Specimen Type: Urine, Clean Catch, Flank or pelvic pain, Stat collect, 05/30/2021 19:28 EST, 1-Time, Stop: 05/30/2021 19:28 EST, Nurse Collect CBC w/ Auto Diff (Order): Specimen Type: Blood, Stat collect, 05/30/2021 19:27 EST, 1-Time, Stop: 05/30/2021 19:27 EST, Nurse Collect HCG Urine Qualitative (Order): Specimen Type: Urine, Stat collect, 05/30/2021 19:28 EST, 1-Time, Stop: 05/30/2021 19:28 EST, Nurse Collect. Results review: Lab results : Lab Results 05/30/2021 19:28 EST Sodium Level 142 mmol/L Potassium Level 3.2 mmol/L LOW Chloride Level 110 mmol/L Carbon Dioxide Level 27 mmol/L Anion Gap 8 LOW Glucose Level 91 mg/dL Blood Urea Nitrogen 13 mg/dL Creatinine Level 0.80 mg/dL eGFR >60 mL/min/1.73m2 eGFR NonAfrican >60 mL/min/1.73m2 Bun/Creatinine 16.2 Calcium Level 8.8 mg/dL Protein Total 7.6 Gram/dL Albumin Level 3.6 Gram/dL Globulin 4.0 Gram/dL A/G Ratio 0.9 LOW Bilirubin Total 0.1 mg/dL LOW Alk Phos 83 Units/Liter AST 13 Units/Liter ALT 18 Units/Liter Magnesium Level 1.8 mg/dL WBC 7.7 K/uL RBC 3.63 Million/uL LOW Hgb 12.5 Gram/dL Hct 38.6 % MCV 106.3 fL HI MCH 34.4 pg HI MCHC 32.4 Gram/dL Platelet Count 189 K/uL MPV 10.1 fL RDW 11.8 % Neut % 51.2 % Neut # 3.94 K/uL Lymph % 41.3 % Lymph # 3.17 K/uL [place] % 6.1 % [place] # 0.47 K/uL Eos % 0.8 % LOW Eos # 0.06 K/uL Baso % 0.3 % Baso # 0.02 K/uL Slide Review No IG# 0 x10(3)/uL IG% 0 % Urine Type. U CleanCatch Urine Color Yellow Urine Appearance Clear Urine Specific [place] 1.016 Urine pH Dipstick 5.5 LOW Urine Leukocyte Esterase Negative Urine Nitrite Negative Urine Protein Dipstick Negative Urine Glucose Dipstick Negative Urine Ketones Dipstick Negative Urine Urobilinogen Dipstick 0.2 EU/dL Urine Bilirubin Dipstick Negative Urine Blood Dipstick Negative Urine Culture if Indicated Not Indicated HCG Urine Qualitative Negative 05/30/2021 19:00 EST HCG Result Negative . Reexamination/ Reevaluation Patient's pain was treated twice I also gave her Benadryl because she gets nasal itching with her pain medications I also gave her Afrin nasal spray which opened up her right nostril I did tell her to not use this for more than 5 days and to start back on her Flonase immediately, and I am starting her on Singulair to see if this helps. I treated her low potassium here We discussed the fact this patient has had multiple CAT scans in the past and her radiation exposure and she has elected to have another CAT scan. The CAT scan shows a right ovarian cyst I went back and discussed with her that we cannot rule out an ovarian torsion and offered her an ultrasound she does not want to wait for an ultrasound and wishes to go home. She knows what an ovarian torsion is she discussed this with me. Impression and Plan Diagnosis Complaint of Abdominal pain - Reason For Visit, Emergency medicine, Medical Hypokalemia - Discharge, Emergency medicine, Medical Right ovarian cyst - Discharge, Emergency medicine, Medical Nasal congestion - Discharge, Emergency medicine, Medical Plan Condition: Improved. Disposition: Discharged Admit/Transfer/Discharge: Discharge (Order): Start: 05/30/2021 23:44 EST, Discharge to: Home. Prescriptions: Prescription Densitometer Reader Pharmacy: [facility] 5 mg-325 mg oral tablet (Prescribe): 1 Tab, Oral, Q6H, for 3 Day(s), constipating, addictive, no driving, PRN: for pain, 12 Tab, 0 Refill(s) Singulair 10 mg oral tablet (Prescribe): 1 Tab, Oral, QPM, 30 Tab, 0 Refill(s). Patient was given the following educational materials: Hypokalemia, Ovarian Cyst, Allergic Rhinitis, Adult, Allergic Rhinitis, Adult, Ovarian Cyst, Hypokalemia. Follow up with: MICHAEL HOSKINS Within 2 to 3 days Call your TOUCH UP EDGER in the morning for follow-up appointment Return here if your pain worsens and we can do an ultrasound Return here for fever or any other problems Start using your Flonase again every single day twice a day begin as soon as you get home Use your Afrin nasal spray just for the next 5 days I have started you on Singulair hopefully that will open up your nasal passages as well I have given you 30 days worth if it works then have your doctor prescribe it I hope you feel better soon. Counseled: Patient, Regarding diagnosis, Regarding diagnostic results, Regarding treatment plan, Regarding prescription, Patient indicated understanding of instructions. documented in this encounter Plan of Treatment Not on file documented as of this encounter Visit Diagnoses Not on filedocumented in this encounter Care Teams Curtain Drier Relationship Specialty Start Date End Date Alan Beyer MD [address] [place] [address] PCP - General Family Medicine 06/08/23 documented as of this encounter
--- OUTSIDE RECORDS SUMMARY | 2024-11-05 10:17 | XMS_ITS | Encounter Summary ---
Author Organization [employer] Address [address] [place] [address] Care Team Providers Care Executive Cyber Leader Name Role Phone Alan Beyer MD Primary Care Provider [phone] Encounter Details Date Type Department Care Team (Late st Contact Info) Description 07/04/2018 Transcribed Document [facility] [place] [facility] [place] [address] ProviderJessenia MD [address] [place] [address] Social History Tobacco Use Types Packs/Day Years Used Date Smoking Tobacco: Never Assessed Comments Unknown Sex and Gender Information Value Date Recorded Sex Assigned at Not on file Legal Sex Female 4:28 PM CDT Gender Identity Not on file Sexual Orientation Not on file documented as of this encounter Miscellaneous Notes * Cerner Conversion Note - Jessenia Alvarez MD - 07/04/2018 11:09 AM STRAW BALER ED Assessment Entered On: 07/04/2018 12:52 EST Performed On: 07/04/2018 12:48 EST by Luis Choudhury Rn ED Quick Look Assessment Level of Consciousness : Alert, Awake, Comatose Affect/Behavior : Appropriate Skin Temperature : Warm Luis Choudhury Rn - 07/04/2018 12:48 EST ED General-Functional Assess Information Obtained From : Patient Preferred Communication Mode : Verbal Communication Barrier : None Primary Language : Bermudian Any Spiritual/Cultural Needs or Requests : No Currently in Unsafe Situation : No Luis Choudhury Rn - 07/04/2018 12:48 EST ED Psychosocial Assessment Affect/Behavior : Appropriate Luis Choudhury Rn - 07/04/2018 12:48 EST Social Habits Smoking Status : 10 or more cigarettes (1/2 pack or more)/day in last 30 days Smokeless Tobacco Status : Refused tobacco status screen Desires Tobacco Cessation Medication : No Reason for No Tobacco Cessation Medication : ED/procedural patient only Desires Tobacco Cessation Calc : 1 Luis Choudhury Rn - 07/04/2018 12:48 EST Social History (As Of: 07/04/2018 12:52:29 EST) Tobacco: 10 or more cigarettes (1/2 pack or more)/day in last 30 days Smoking Status. Never Smokeless Tobacco Status. (Last Updated: 12/16/2017 15:18:02 EDT by SHAMA CASTILLO Rn) 10 or more cigarettes (1/2 pack or more)/day in last 30 days Smoking Status. Refused tobacco status screen Smokeless Tobacco Status. None Smokeless Tobacco Use History. Years of Use: 17. (Last Updated: 05/24/2018 10:39:04 EST by Breanna Ivey Rn) Alcohol: Alcohol Use History No. (Last Updated: 07/26/2015 22:29:17 EDT by ERICKA ISSA RN) Alcohol Use History No. (Last Updated: 05/24/2018 10:39:04 EST by Breanna Ivey Rn) Substance Abuse: Drug Use Hx: No. Use in Last 12 Months: No. (Last Updated: 07/26/2015 22:29:17 EDT by ERICKA ISSA, [place]) Drug Use Hx: No. Use in Last 12 Months: No. (Last Updated: 05/24/2018 10:39:04 EST by Breanna Ivey, [place]) Nutrition/Health: Regular (Last Updated: 05/24/2018 10:39:04 EST by Breanna Ivey, [place]) Gastrointestinal ED Gastrointestinal Symptoms : Abdominal pain, Bloated, Nausea Abdominal Tenderness Location : LLQ, [facility]Q Luis Choudhury Rn - 07/04/2018 12:48 EST Gastrointestinal Assessment Comment : Patient recently had Hysterectomy- felt a pop this morning wtih acute pain in RUQ and RLQ and nausea noted. Luis Choudhury Rn - 07/04/2018 13:31 EST Electronically signed by Jannette [facility] Conversion Channel Director Cerner at 08/31/2022 5:03 PM CDT documented in this encounter Plan of Treatment Not on file documented as of this encounter Visit Diagnoses Not on filedocumented in this encounter Care Teams Executive Cyber Leader Relationship Specialty Start Date End Date Alan Beyer MD [address] [place] [address] PCP - General Family Medicine 06/08/23 documented as of this encounter
--- OUTSIDE RECORDS SUMMARY | 2024-11-05 10:17 | XMS_ITS | Encounter Summary ---
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 Name Role Phone Alan Beyer MD Primary Care Provider [phone] Encounter Details Date Type Department Care Team (Late st Contact Info) Description 07/13/2021 Transcribed Document [facility] [place] [facility] [place] [address] ProviderJessenia MD [address] [place] [id number] Social History Tobacco Use Types Packs/Day Years Used Date Smoking Tobacco: Never Assessed Comments Unknown Sex and Gender Information Value Date Recorded Sex Assigned at Not on file Legal Sex Female 4:28 PM CDT Gender Identity Not on file Sexual Orientation Not on file documented as of this encounter Miscellaneous Notes * Cerner Conversion Note - Jessenia Alvarez MD - 07/13/2021 4:08 PM 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 Discharge Vitals Heart Rate (Monitored) 84 Respiratory Rate 31 Blood Pressure 147/93 What to do next Instructions From Your Care Team Discharge Activity: Discharge Activity: Activity as tolerated Diet: Discharge Diet: Resume usual diet as tolerated Driving Restriction: No driving until 24 hours after taking pain medication Return to Work or School: May return to work or school on 07/16/2021 Follow-Up Appointments Follow Up with MICHAEL HOSKINS MD-[facility] When Within 2 to 3 days Comments Call for follow up appointment Where: [address] [place] [address]- Follow Up with HEIDI VILLA MD-[facility] When Within 1 to 2 weeks Comments Office to call with appoint/instructions Where: [address] [facility] [address] [place] [address]- Medications What How Much When Instructions Next Dose valsartan (Diovan 80 mg oral tablet) 1 Tablet(s) Oral Every Day Duration: 30 Day(s) Pickup at [facility] Tonight 07/13/21 clonazePAM (clonazePAM 0.5 mg oral tablet) 1 Tablet(s) Oral Two Times A Day Tonight 07/13/21 loratadine (Claritin 24 Hour Allergy 10 mg oral tablet) 1 Tablet(s) Oral Every Day Tonight 07/13/21 methocarbamol (Robaxin-750 oral tablet) 1 Tablet(s) Oral Every Day Tonight 07/13/21 omeprazole 40 Milligram(s) Oral Every Day Tonight 07/13/21Tonight 07/13/21 predniSONE (predniSONE 10 mg oral tablet) See instructions Six-day tapering Dosepak DIRECTED valACYclovir (Valtrex) 500 Milligram(s) Oral Every Day fever blister Pharmacy Information [facility]: [address] [place], [place] [id number] [phone] Take your medications faithfully. Do NOT skip [...] Please dispose of unused and medications per your retail pharmacy guidance. Allergies Bactrim acetaminophen-oxyCODONE clindamycin Toradol baclofen doxycycline escitalopram fentaNYL lidocaine topical 2% gel meperidine morphine penicillin (Hives) tetanus immune globulin Immunizations This Visit No Immunizations Found Education Materials Hypertension, Adult Hypertension is another name for high blood pressure. High blood pressure forces your heart to work harder to pump blood. This can cause problems over time. There are two numbers in a blood pressure reading. There is a top number (systolic) over a bottom number (diastolic). It is best to have a blood pressure that is below 120/80. Healthy choices can help lower your blood pressure, or you may need medicine to help lower it. What are the causes? The cause of this condition is not known. Some conditions may be related to high blood pressure. What increases the risk? Smoking. ??? Having type 2 diabetes mellitus, high cholesterol, or both. ??? Not getting enough exercise or physical activity. ??? Being overweight. ??? Having too much fat, sugar, calories, or salt (sodium) in your diet. ??? Drinking too much alcohol. ??? Having long-term (chronic) kidney disease. ??? Having a family history of high blood pressure. ??? Age. Risk increases with age. ??? Race. You may be at higher risk if you are . ??? Gender. Men are at higher risk than women before age 45. After age 65, women are at higher risk than men. ??? Having obstructive sleep apnea. ??? Stress. What are the signs or symptoms? High blood pressure may not cause symptoms. Very high blood pressure (hypertensive crisis) may cause: ? Headache. ? Feelings of worry or nervousness (anxiety). ? Shortness of breath. ? Nosebleed. ? A feeling of being sick to your stomach (nausea). ? Throwing up (vomiting). ? Changes in how you see. ? Very bad chest pain. ? Seizures. How is this treated? This condition is treated by making healthy lifestyle changes, such as: ? Eating healthy foods. ? Exercising more. ? Drinking less alcohol. ??? Your health care provider may prescribe medicine if lifestyle changes are not enough to get your blood pressure under control, and if: ? Your top number is above 130. ? Your bottom number is above 80. ??? Your personal target blood pressure may vary. Follow these instructions at home: Eating and drinking ??? If told, follow the DASH eating plan. To follow this plan: ? Fill one half of your plate at each meal with fruits and vegetables. ? Fill one fourth of your plate at each meal with whole grains. Whole grains include whole-wheat pasta, brown rice, and whole-grain bread. ? Eat or drink low-fat dairy products, such as skim milk or low-fat yogurt. ? Fill one fourth of your plate at each meal with low-fat (lean) proteins. Low-fat proteins include fish, chicken without skin, eggs, beans, and tofu. ? Avoid fatty meat, cured and processed meat, or chicken with skin. ? Avoid pre-made or processed food. ??? Eat less than 1,500 mg of salt each day. ??? Do not drink alcohol if: ? Your doctor tells you not to drink. ? You are , may be , or are planning to become . ??? If you drink alcohol: ? Limit how much you use to: ? 0???1 drink a day for women. ? 0???2 drinks a day for men. ? Be aware of how much alcohol is in your drink. In the [place] one drink equals one 12 oz bottle of beer (355 mL), one 5 oz glass of wine (148 mL), or one 1?? oz glass of hard liquor (44 mL). Lifestyle ??? Work with your doctor to stay at a healthy weight or to lose weight. Ask your doctor what the best weight is for you. ??? Get at least 30 minutes of exercise most days of the week. This may include walking, swimming, or biking. ??? Get at least 30 minutes of exercise that strengthens your muscles (resistance exercise) at least 3 days a week. This may include lifting weights or doing Pilates. ??? Do not use any products that contain nicotine or tobacco, such as cigarettes, e-cigarettes, and chewing tobacco. If you need help quitting, ask your doctor. ??? Check your blood pressure at home as told by your doctor. ??? Keep all follow-up visits as told by your doctor. This is important. Medicines ??? Take ieii-gzp-ldoobze and prescription medicines only as told by your doctor. Follow directions carefully. ??? Do not skip doses of blood pressure medicine. The medicine does not work as well if you skip doses. Skipping doses also puts you at risk for problems. ??? Ask your doctor about side effects or reactions to medicines that you should watch for. Contact a doctor if you: ??? Think you are having a reaction to the medicine you are taking. ??? Have headaches that keep coming back (recurring). ??? Feel dizzy. ??? Have swelling in your ankles. ??? Have trouble with your vision. Get help right away if you: ??? Get a very bad headache. ??? Start to feel mixed up (confused). ??? Feel weak or numb. ??? Feel faint. ??? Have very bad pain in your: ? Chest. ? Belly (abdomen). ??? Throw up more than once. ??? Have trouble breathing. Summary ??? Hypertension is another name for high blood pressure. ??? High blood pressure forces your heart to work harder to pump blood. ??? For most people, a normal blood pressure is less than 120/80. ??? Making healthy choices can help lower blood pressure. If your blood pressure does not get lower with healthy choices, you may need to take medicine. This information is not intended to replace advice given to you by your health care provider. Make sure you discuss any questions you have with your health care provider. Document Revised: 01/08/2019 Document Reviewed: 01/08/2019 Elsevier Patient Education ?? 2020 [employer] How to Take Your Blood Pressure Blood pressure is a measurement of how strongly your blood is pressing against the levy of your arteries. Arteries are blood vessels that carry blood from your heart throughout your body. Your health care provider takes your blood pressure at each office visit. You can also take your own blood pressure at home with a blood pressure monitor. You may need to take your own blood pressure to: ??? Confirm a diagnosis of high blood pressure (hypertension). ??? Monitor your blood pressure over time. ??? Make sure your blood pressure medicine is working. Supplies needed: ??? Blood pressure monitor. ??? Dining room chair to sit in. ??? Table or desk. ??? Small notebook and pencil or pen. How to prepare To get the most accurate reading, avoid the following for 30 minutes before you check your blood pressure: ??? Drinking caffeine. ??? Drinking alcohol. ??? Eating. ??? Smoking. ??? Exercising. Five minutes before you check your blood pressure: ??? Use the bathroom and urinate so that you have an empty bladder. ??? Sit quietly in a dining room chair. Do not sit in a soft couch or an armchair. Do not talk. How to take your blood pressure To check your blood pressure, follow the instructions in the manual that came with your blood pressure monitor. If you have a digital blood pressure monitor, the instructions may be as follows: 1. Sit up straight in a chair. 2. Place your feet on the floor. Do not cross your ankles or legs. 3. Rest your left arm at the level of your heart on a table or desk or on the arm of a chair. 4. Pull up your shirt sleeve. 5. Wrap the blood pressure cuff around the upper part of your left arm, 1 inch (2.5 cm) above your elbow. It is best to wrap the cuff around bare skin. 6. Fit the cuff snugly around your arm. You should be able to place only one finger between the cuff and your arm. 7. Position the cord so that it rests in the bend of your elbow. 8. Press the power button. 9. Sit quietly while the cuff inflates and deflates. 10. Read the digital reading on the monitor screen and write the numbers down (record them) in a notebook. 11. Wait 2???3 minutes, then repeat the steps, starting at step 1. What does my blood pressure reading mean? A blood pressure reading consists of a higher number over a lower number. Ideally, your blood pressure should be below 120/80. The first ( top ) number is called the systolic pressure. It is a measure of the pressure in your arteries as your heart beats. The second ( bottom ) number is called the diastolic pressure. It is a measure of the pressure in your arteries as the heart relaxes. Blood pressure is classified into five stages. The following are the stages for adults who do not have a short-term serious illness or a chronic condition. Systolic pressure and diastolic pressure are measured in a unit called mm Hg (millimeters of mercury). Normal ??? Systolic pressure: below 120. ??? Diastolic pressure: below 80. Elevated ??? Systolic pressure: 120???129. ??? Diastolic pressure: below 80. Hypertension stage 1 ??? Systolic pressure: 130???139. ??? Diastolic pressure: 80???89. Hypertension stage 2 ??? Systolic pressure: 140 or above. ??? Diastolic pressure: 90 or above. You can have elevated blood pressure or hypertension even if only the systolic or only the diastolic number in your reading is higher than normal. Follow these instructions at home: ??? Check your blood pressure as often as recommended by your health care provider. ??? Check your blood pressure at the same time every day. ??? Take your monitor to the next appointment with your health care provider to make sure that: ? You are using it correctly. ? It provides accurate readings. ??? Be sure you understand what your goal blood pressure numbers are. ??? Tell your health care provider if you are having any side effects from blood pressure medicine. ??? Keep all follow-up visits as told by your health care provider. This is important. General tips ??? Your health care provider can suggest a reliable monitor that will meet your needs. There are several types of home blood pressure monitors. ??? Choose a monitor that has an arm cuff. Do not choose a monitor that measures your blood pressure from your wrist or finger. ??? Choose a cuff that wraps snugly around your upper arm. You should be able to fit only one finger between your arm and the cuff. ??? You can buy a blood pressure monitor at most [employer] or online. Where to find more information [place] [employer]: www.heart.org Contact a health care provider if: ??? Your blood pressure is consistently high. Get help right away if: ??? Your systolic blood pressure is higher than 180. ??? Your diastolic blood pressure is higher than 120. Summary ??? Blood pressure is a measurement of how strongly your blood is pressing against the levy of your arteries. ??? A blood pressure reading consists of a higher number over a lower number. Ideally, your blood pressure should be below 120/80. ??? Check your blood pressure at the same time every day. ??? Avoid caffeine, alcohol, smoking, and exercise for 30 minutes prior to checking your blood pressure. These agents can affect the accuracy of the blood pressure reading. This information is not intended to replace advice given to you by your health care provider. Make sure you discuss any questions you have with your health care provider. Document Revised: 04/23/2020 Document Reviewed: 04/23/2020 [employer] Patient Education ?? 2020 [employer]. Heart Attack A heart attack occurs when blood and oxygen supply to the heart is cut off. A heart attack causes damage to the heart that cannot be fixed. A heart attack is also called a myocardial infarction, or LA. If you think you are having a heart attack, do not wait to see if the symptoms will go away. Get medical help right away. What are the causes? This condition may be caused by: ??? A fatty substance (plaque) in the blood vessels (arteries). This can block the flow of blood to the heart. ??? A blood clot in the blood vessels that go to the heart. The blood clot blocks blood flow. ??? Low blood pressure. ??? An abnormal heartbeat. ??? Some diseases, such as problems in red blood cells (anemia)orproblems in breathing (respiratory failure). ??? Tightening (spasm) of a blood vessel that cuts off blood to the heart. ??? A tear in a blood vessel of the heart. ??? High blood pressure. What increases the risk? The following factors may make you more likely to develop this condition: ??? Aging. The older you are, the higher your risk. ??? Having a personal or family history of chest pain, heart attack, stroke, or narrowing of the arteries in the legs, arms, head, or stomach (peripheral artery disease). ??? Being male. ??? Smoking. ??? Not getting regular exercise. ??? Being overweight or obese. ??? Having high blood pressure. ??? Having high cholesterol. ??? Having diabetes. ??? Drinking too much alcohol. ??? Using illegal drugs, such as cocaine or methamphetamine. What are the signs or symptoms? Symptoms of this condition include: ??? Chest pain. It may feel like: ? Crushing or squeezing. ? Tightness, pressure, fullness, or heaviness. ??? Pain in the arm, neck, jaw, back, or upper body. ??? Shortness of breath. ??? Heartburn. ??? Upset stomach (indigestion). ??? Feeling like you may vomit (nauseous). ??? Cold sweats. ??? Feeling tired. ??? Sudden light-headedness. How is this treated? A heart attack must be treated as soon as possible. Treatment may include: ??? Medicines to: ? Break up or dissolve blood clots. ? Thin blood and help prevent blood clots. ? Treat blood pressure. ? Improve blood flow to the heart. ? Reduce pain. ? Reduce cholesterol. ??? Procedures to widen a blocked artery and keep it open. ??? Open heart surgery. ??? Receiving oxygen. ??? Making your heart strong again (cardiac rehabilitation) through exercise, education, and counseling. Follow these instructions at home: Medicines ??? Take lcwf-zec-kaxtyjr and prescription medicines only as told by your doctor. You may need to take medicine: ? To keep your blood from clotting too easily. ? To control blood pressure. ? To lower cholesterol. ? To control heart rhythms. ??? Do not take these medicines unless your doctor says it is okay: ? NSAIDs, such as ibuprofen. ? Supplements that have vitamin A, vitamin E, or both. ? Hormone replacement therapy that has estrogen with or without progestin. Lifestyle ??? Do not use any products that have nicotine or tobacco, such as cigarettes, e-cigarettes, and chewing tobacco. If you need help quitting, ask your doctor. ??? Avoid secondhand smoke. ??? Exercise regularly. Ask your doctor about a cardiac rehab program. ??? Eat heart-healthy foods. Your doctor will tell you what foods to eat. ??? Stay at a healthy weight. ??? Lower your stress level. ??? Do not use illegal drugs. Alcohol use ??? Do not drink alcohol if: ? Your doctor tells you not to drink. ? You are , may be , or are planning to become . ??? If you drink alcohol: ? Limit how much you use to: ? 0???1 drink a day for women. ? 0???2 drinks a day for men. ? Know how much alcohol is in your drink. In the [place] one drink equals one 12 oz bottle of beer (355 mL), one 5 oz glass of wine (148 mL), or one 1?? oz glass of hard liquor (44 mL). General instructions ??? Work with your doctor to treat other problems you may have, such as diabetes or high blood pressure. ??? Get screened for depression. Get treatment if needed. ??? Keep your vaccines up to date. Get the flu shot (influenza vaccine) every year. ??? Keep all follow-up visits as told by your doctor. This is important. Contact a doctor if: ??? You feel very sad. ??? You have trouble doing your daily activities. Get help right away if: ??? You have sudden, unexplained discomfort in your chest, arms, back, neck, jaw, or upper body. ??? You have shortness of breath. ??? You have sudden sweating or clammy skin. ??? You feel like you may vomit. ??? You vomit. ??? You feel tired or weak. ??? You get light-headed or dizzy. ??? You feel your heart beating fast. ??? You feel your heart skipping beats. ??? You have blood pressure that is higher than 180/120. These symptoms may be an emergency. Do not wait to see if the symptoms will go away. Get medical help right away. Call your local emergency services (911 in the [place] Do not drive yourself to the hospital. Summary ??? A heart attack occurs when blood and oxygen supply to the heart is cut off. ??? Do not take NSAIDs unless your doctor says it is okay. ??? Do not smoke. Avoid secondhand smoke. ??? Exercise regularly. Ask your doctor about a cardiac rehab program. This information is not intended to replace advice given to you by your health care provider. Make sure you discuss any questions you have with your health care provider. Document Revised: 08/11/2019 Document Reviewed: 08/11/2019 [employer] Patient Education ?? 2020 [employer]. Emergency Awareness and Preventative Care STROKE is [...] Assistance with quitting is available by contacting 9-605-SXGG-NOW. This is a free resource providing counseling, support, and referral. Or you may contact your personal physician. National Suicide Prevention Lifeline: The National Suicide Prevention [...] and how to prevent infections, visit www.cdc.gov/sepsis. Test Results Laboratory or Other Results This Visit (last charted value for your 07/13/2021 visit) Hematology 07/13/2021 1:58 AM WBC: 7.3 K/uL -- Normal range between ( 3.9 and 10.0 ) RBC: 3.44 Million/uL -- Normal range between ( 3.93 and 5.22 ) Hct: 36.4 % -- Normal range between ( 34.1 and 44.9 ) Hgb: 12.1 Gram/dL -- Normal range between ( 11.2 and 15.7 ) Platelet Count: 196 K/uL -- Normal range between ( 163 and 369 ) MCH: 35.2 pg -- Normal range between ( 25.6 and 32.2 ) MCHC: 33.2 Gram/dL -- Normal range between ( 32.3 and 36.5 ) MCV: 105.8 fL -- Normal range between ( 79.0 and 94.8 ) Slide Review: No Eos %: 2.6 % -- Normal range between ( 1.0 and 7.0 ) [place] #: 0.41 K/uL -- Normal range between ( 0.24 and 0.82 ) Eos #: 0.19 K/uL -- Normal range between ( 0.04 and 0.54 ) [place] %: 5.6 % -- Normal range between ( 4.7 and 12.5 ) Baso %: 0.3 % -- Normal range between ( 0.0 and 1.0 ) Baso #: 0.02 K/uL -- Normal range between ( 0.01 and 0.08 ) RDW: 12.4 % -- Normal range between ( 11.6 and 14.4 ) Neut %: 45.0 % -- Normal range between ( 34.0 and 71.0 ) Neut #: 3.29 K/uL -- Normal range between ( 1.56 and 6.13 ) Lymph %: 46.2 % -- Normal range between ( 19.3 and 53.0 ) Lymph #: 3.38 K/uL -- Normal range between ( 1.18 and 3.74 ) MPV: 10.1 fL -- Normal range between ( 9.4 and 12.4 ) IG#: 0 x10(3)/uL IG%: 0 % -- Normal range between ( 0 and 1 ) Urinalysis 07/13/2021 2:00 AM Urine Nitrite: Negative Urine Leukocyte Esterase: Negative Urine Appearance: Clear Urine Glucose Dipstick: Negative Urine Blood Dipstick: Negative Urine Urobilinogen Dipstick: 0.2 EU/dL -- Normal range between ( 0.2 and 1.0 ) Urine Protein Dipstick: Negative Urine Color: Yellow Urine Ketones Dipstick: Negative Urine pH Dipstick: 6.0 -- Normal range between ( 6.0 and 8.0 ) Urine Bilirubin Dipstick: Negative Urine Specific [place]: *1.002 -- Normal range between ( 1.005 and 1.030 ) Urine Type.: U CleanCatch Urine Culture if Indicated: Not Indicated Microbiology 07/13/2021 8:03 AM SARS-CoV-2 (COVID19 PCR): Negative General Chemistry 07/13/2021 2:00 AM Magnesium Level: 1.8 mg/dL -- Normal range between ( 1.5 and 2.4 ) 07/13/2021 1:58 AM Creatinine Level: 0.81 mg/dL -- Normal range between ( 0.55 and 1.02 ) Sodium Level: 141 mmol/L -- Normal range between ( 136 and 146 ) Potassium Level: 3.1 mmol/L -- Normal range between ( 3.5 and 5.1 ) Chloride Level: 111 mmol/L -- Normal range between ( 102 and 112 ) Carbon Dioxide Level: 27 mmol/L -- Normal range between ( 21 and 32 ) Anion Gap: 6 -- Normal range between ( 9 and 20 ) Bilirubin Total: 0.2 mg/dL -- Normal range between ( 0.2 and 1.3 ) A/G Ratio: 0.9 -- Normal range between ( 1.1 and 2.5 ) ALT: 25 Units/Liter -- Normal range between ( 12 and 78 ) AST: 14 Units/Liter -- Normal range between ( 5 and 37 ) Globulin: 3.6 Gram/dL -- Normal range between ( 1.5 and 4.5 ) Alk Phos: 76 Units/Liter -- Normal range between ( 27 and 136 ) Bun/Creatinine: 17.3 -- Normal range between ( 8.0 and 20.0 ) Calcium Level: 8.4 mg/dL -- Normal range between ( 8.5 and 10.1 ) eGFR : >60 mL/min/1.73m2 eGFR NonAfrican: >60 mL/min/1.73m2 Glucose Level: 118 mg/dL -- Normal range between ( 74 and 106 ) Blood Urea Nitrogen: 14 mg/dL -- Normal range between ( 7 and 22 ) Protein Total: 7.0 Gram/dL -- Normal range between ( 6.4 and 8.2 ) Albumin Level: 3.4 Gram/dL -- Normal range between ( 3.4 and 5.0 ) Cardiac Specific Markers 07/13/2021 6:15 AM Troponin I High Sensitivity: 58.4 pg/mL -- Normal range between ( 3.0 and 58.8 ) Endocrinology 07/13/2021 2:00 AM HCG Urine Qualitative: Negative Computed Tomography 07/13/2021 6:03 AM CTA Chest: CTA Chest Diagnostic Radiology 07/13/2021 2:06 AM CR Chest 1 Vw Portable: CR Chest 1 Vw Portable Patient Name:CHARLINE BOND I have received and understand this information and was given the opportunity to ask questions. Patient/Social Work Case Manager Name: Patient/Social Work Case Manager Signature: Relationship to Patient: Clinician/Hospital Social Work Case Manager Signature: Date: Electronically signed by Jannette, Trevon Conversion Landscape Management Technician Cerner at 08/31/2022 5:02 PM CDT documented in this encounter Plan of Treatment Not on file documented as of this encounter Visit Diagnoses Not on filedocumented in this encounter Care Teams [employer]ism [employer] Relationship Specialty Start Date End Date Alan Beyer MD [address] [place] [address] PCP - General Family Medicine 06/08/23 documented as of this encounter
--- OUTSIDE RECORDS SUMMARY | 2024-11-05 10:17 | XMS_ITS | Encounter Summary ---
Author Organization [facility] Address [address] [place] [address] Care Team Providers Care Leather Splitter Name Role Phone Alan Beyer MD Primary Care Provider [phone] Encounter Details Date Type Department Care Team (Late st Contact Info) Description 03/16/2020 Transcribed Document [facility] [place] [address] ProviderJessenia MD [address] [place] [address] Social History Tobacco Use Types Packs/Day Years Used Date Smoking Tobacco: Never Assessed Comments Unknown Sex and Gender Information Value Date Recorded Sex Assigned at Not on file Legal Sex Female 4:28 PM CDT Gender Identity Not on file Sexual Orientation Not on file documented as of this encounter Miscellaneous Notes * Cerner Conversion Note - Jessenia Alvarez MD - 03/16/2020 5:29 PM DATA ANALYST [place] [id number] CHARLINE BOND :1980 Visit Time:03/16/2020 Your Visit Summary Your Care Team Primary Provider: GALILEA HANNAH Secondary Provider: Your Diagnosis Mild dehydration Nausea vomiting and diarrhea Vomiting Medical Information You may obtain a copy [...] do next Follow-Up Appointments Follow Up with YOU WILL NEED TO SELF ISOLATE FOR 14 DAY IF WE CALL TO TELL YOU THE COVID TEST IS POSITIVE. SEE COVID INFORMATION When Within 2 to 3 days Follow Up with use the phenergan and / or zofran for any nausea / vomiting. get some over the counter immodium/kaopectate for the diarrhea. increase oral fluids When Within 2 to 3 days Follow Up with ANSLEY GUADALUPE When Within 2 to 3 days Comments follow up with this md to see you for the nausea vomiting and diarrhea Where: [address] [facility] [address] [place] [address]- Business (1) Allergies Bactrim acetaminophen-oxyCODONE clindamycin Toradol baclofen doxycycline escitalopram fentaNYL lidocaine topical 2% gel meperidine morphine penicillin (Hives) tetanus immune globulin Immunizations This Visit No Immunizations Found Medications What How Much When Instructions Next Dose ondansetron (Zofran ODT 4 mg oral tablet, disintegrating) 1 Tablet(s) Oral Every 4 Hours as needed for Nausea/Vomiting Duration: 3 Day(s) Pickup at [place] [address] promethazine (promethazine 25 mg oral tablet) 1 Tablet(s) Oral Every 4 Hours as needed for as needed for nausea/vomiting Duration: 3 Day(s) can make you sleepy Pickup at [place] [address] conjugated estrogens (Premarin) Vaginal Weekly cream fexofenadine (Karine) Oral Every Day ibuprofen 400 Milligram(s) Oral Every 8 Hours as needed for as needed for pain methocarbamol (Robaxin-750 oral tablet) 1 Tablet(s) Oral Every Day valACYclovir (Valtrex) 500 Milligram(s) Oral Every Day fever blister Pharmacy Information [facility] [address]: [address] [place], [place] [id number] [phone] The home medications listed are only as [...] This Visit (last charted value for your 03/16/2020 visit) Hematology 03/16/2020 1:32 PM WBC: 5.5 K/uL -- Normal range between ( 3.9 and 10.0 ) RBC: 3.52 Million/uL -- Normal range between ( 3.93 and 5.22 ) Hct: 36.1 % -- Normal range between ( 34.1 and 44.9 ) Hgb: 12.5 Gram/dL -- Normal range between ( 11.2 and 15.7 ) Platelet Count: 223 K/uL -- Normal range between ( 163 and 369 ) MCH: 35.5 pg -- Normal range between ( 25.6 and 32.2 ) MCHC: 34.6 Gram/dL -- Normal range between ( 32.3 and 36.5 ) MCV: 102.6 fL -- Normal range between ( 79.0 and 94.8 ) Slide Review: No Eos %: 0.7 % -- Normal range between ( 1.0 and 7.0 ) Hettinger #: 0.31 K/uL -- Normal range between ( 0.24 and 0.82 ) Eos #: 0.04 K/uL -- Normal range between ( 0.04 and 0.54 ) Hettinger %: 5.7 % -- Normal range between ( 4.7 and 12.5 ) Baso %: 0.2 % -- Normal range between ( 0.0 and 1.0 ) Baso #: 0.01 K/uL -- Normal range between ( 0.01 and 0.08 ) RDW: 11.4 % -- Normal range between ( 11.6 and 14.4 ) Neut %: 54.6 % -- Normal range between ( 34.0 and 71.0 ) Neut #: 2.98 K/uL -- Normal range between ( 1.56 and 6.13 ) Lymph %: 38.6 % -- Normal range between ( 19.3 and 53.0 ) Lymph #: 2.11 K/uL -- Normal range between ( 1.18 and 3.74 ) MPV: 10.0 fL -- Normal range between ( 9.4 and 12.4 ) IG#: 0 x10(3)/uL IG%: 0 % -- Normal range between ( 0 and 1 ) General Chemistry 03/16/2020 3:19 PM Magnesium Level: 2.1 mg/dL -- Normal range between ( 1.5 and 2.4 ) Lactic Acid Level: 1.0 mmol/L -- Normal range between ( 0.4 and 2.0 ) Lipase Level: 50 Units/Liter -- Normal range between ( 73 and 393 ) 03/16/2020 1:32 PM Creatinine Level: 0.78 mg/dL -- Normal range between ( 0.55 and 1.02 ) Sodium Level: 140 mmol/L -- Normal range between ( 136 and 146 ) Potassium Level: 3.2 mmol/L -- Normal range between ( 3.5 and 5.1 ) Chloride Level: 109 mmol/L -- Normal range between ( 102 and 112 ) Carbon Dioxide Level: 26 mmol/L -- Normal range between ( 21 and 32 ) Anion Gap: 8 -- Normal range between ( 9 and 20 ) Bilirubin Total: 0.4 mg/dL -- Normal range between ( 0.2 and 1.3 ) A/G Ratio: 1.2 -- Normal range between ( 1.1 and 2.5 ) ALT: 12 Units/Liter -- Normal range between ( 12 and 78 ) AST: 9 Units/Liter -- Normal range between ( 5 and 37 ) Globulin: 3.4 Gram/dL -- Normal range between ( 1.5 and 4.5 ) Alk Phos: 80 Units/Liter -- Normal range between ( 27 and 136 ) Bun/Creatinine: 16.7 -- Normal range between ( 8.0 and 20.0 ) Calcium Level: 9.0 mg/dL -- Normal range between ( 8.5 and 10.1 ) eGFR : >60 mL/min/1.73m2 eGFR NonAfrican: >60 mL/min/1.73m2 Glucose Level: 96 mg/dL -- Normal range between ( 74 and 106 ) Blood Urea Nitrogen: 13 mg/dL -- Normal range between ( 7 and 22 ) Protein Total: 7.4 Gram/dL -- Normal range between ( 6.4 and 8.2 ) Albumin Level: 4.0 Gram/dL -- Normal range between ( 3.4 and 5.0 ) Endocrinology 03/16/2020 3:19 PM HCG Serum Quant: <1.0 mIU/mL Education Materials COVID-19: How to Protect Yourself and Others Know how it spreads ??? There is currently no vaccine to prevent coronavirus disease 2019 (COVID-19). ??? The best way to prevent illness is to avoid being exposed to this virus. ??? The virus is thought to spread mainly from yspawa-qg-rpxzis. ? Between people who are in close contact with one another (within about 6 feet). ? Through respiratory droplets produced when an infected person coughs, sneezes or talks. ? These droplets can land in the mouths or noses of people who are nearby or possibly be inhaled into the lungs. ? Some recent studies have suggested that COVID-19 may be spread by people who are not showing symptoms. Everyone should Clean your hands often ??? Wash your hands often with soap and water for at least 20 seconds especially after you have been in a public place, or after blowing your nose, coughing, or sneezing. ??? If soap and water are not readily available, use a hand lamps tester and inspector that contains at least 60% alcohol. Cover all surfaces of your hands and rub them together until they feel dry. ??? Avoid touching your eyes, nose, and mouth with unwashed hands. Avoid close contact ??? Avoid close contact with people who are sick. ??? Stay at home as much as possible. ??? Put distance between yourself and other people. ? Remember that some people without symptoms may be able to spread virus. ? This is especially important for people who are at higher risk of getting very sick.https://www.cdc.gov/coronavirus/2019-ncov/woth-xyhcd-heeglyprdnf/people-a o-ojkfhv-iiva.html Cover your mouth and nose with a cloth face cover when around others ??? You could spread COVID-19 to others even if you do not feel sick. ??? Everyone should wear a cloth face cover when they have to go out in public, for example to the grocery store or to picking crew supervisor other necessities. ? Cloth face coverings should not be placed on young children under age 2, anyone who has trouble breathing, or is unconscious, incapacitated or otherwise unable to remove the mask without assistance. ??? The cloth face cover is meant to protect other people in case you are infected. ??? Do NOT use a facemask meant for a healthcare worker. ??? Continue to keep about 6 feet between yourself and others. The cloth face cover is not a substitute for social distancing. Cover coughs and sneezes ??? If you are in a private setting and do not have on your cloth face covering, remember to always cover your mouth and nose with a tissue when you cough or sneeze or use the inside of your elbow. ??? Throw used tissues in the trash. ??? Immediately wash your hands with soap and water for at least 20 seconds. If soap and water are not readily available, clean your hands with a hand lamps tester and inspector that contains at least 60% alcohol. Clean and disinfect ??? Clean AND disinfect frequently touched surfaces daily. This includes tables, doorknobs, light switches, countertops, handles, desks, phones, keyboards, toilets, faucets, and sinks. https://www.cdc.gov/coronavirus/2019-ncov/tuugkhr-kdovzey-mnls/disinfecting-yo ur-home.html ??? If surfaces are dirty, clean them: Use detergent or soap and water prior to disinfection. cdc.gov/coronavirus 08/23/2019 This information is not intended to replace advice given to you by your health care provider. Make sure you discuss any questions you have with your health care provider. Document Released: 08/26/2019 Document Revised: 08/29/2019 Document Reviewed: 08/26/2019 [employer] Patient Education ?? 2020 [employer]. COVID-19 Frequently Asked Questions COVID-19 (coronavirus disease) is an infection that is caused by a large family of viruses. Some viruses cause illness in people and others cause illness in animals like camels, cats, and bats. In some cases, the viruses that cause illness in animals can spread to humans. Where did the coronavirus come from? In April 2019, [place] told the World Health Organization (WHO) of several cases of lung disease (human respiratory illness). These cases were linked to an open seafood and livestock market in the city of [facility]. The link to the seafood and livestock market suggests that the virus may have spread from animals to humans. However, since that first outbreak in April, the virus has also been shown to spread from person to person. What is the name of the disease and the virus? Disease name Early on, this disease was called novel coronavirus. This is because scientists determined that the disease was caused by a new (novel) respiratory virus. The World Health Organization (WHO) has now named the disease COVID-19, or coronavirus disease. Virus name The virus that causes the disease is called severe acute respiratory syndrome coronavirus 2 (SARS-CoV-2). More information on disease and virus naming World Health Organization (WHO): www.who.int/emergencies/diseases/rqvzc-gvrlbhytyrf-3174/technical-guidance/nam rcu-fnb-hgxxwbnscvm-disease-(covid-2019)-xty-swu-oexbq-qcuq-xhnkzm-ti Who is at risk for complications from coronavirus disease? Some people may be at higher risk for complications from coronavirus disease. This includes older adults and people who have chronic diseases, such as heart disease, diabetes, and lung disease. If you are at higher risk for complications, take these extra precautions: ??? Avoid close contact with people who are sick or have a fever or cough. Stay at least 3???6 ft (1???2 m) away from them, if possible. ??? Wash your hands often with soap and water for at least 20 seconds. ??? Avoid touching your face, mouth, nose, or eyes. ??? Keep supplies on hand at home, such as food, medicine, and cleaning supplies. ??? Stay home as much as possible. ??? Avoid social gatherings and travel. How does coronavirus disease spread? The virus that causes coronavirus disease spreads easily from person to person (is contagious). There are also cases of community-spread disease. This means the disease has spread to: ??? People who have no known contact with other infected people. ??? People who have not traveled to areas where there are known cases. It appears to spread from one person to another through droplets from coughing or sneezing. Can I get the virus from touching surfaces or objects? There is still a lot that we do not know about the virus that causes coronavirus disease. Scientists are basing a lot of information on what they know about similar viruses, such as: ??? Viruses cannot generally survive on surfaces for long. They need a human body (host) to survive. ??? It is more likely that the virus is spread by close contact with people who are sick (direct contact), such as through: ? Shaking hands or hugging. ? Breathing in respiratory droplets that travel through the air. This can happen when an infected person coughs or sneezes on or near other people. ??? It is less likely that the virus is spread when a person touches a surface or object that has the virus on it (indirect contact). The virus may be able to enter the body if the person touches a surface or object and then touches his or her face, eyes, nose, or mouth. Can a person spread the virus without having symptoms of the disease? It may be possible for the virus to spread before a person has symptoms of the disease, but this is most likely not the main way the virus is spreading. It is more likely for the virus to spread by being in close contact with people who are sick and breathing in the respiratory droplets of a sick person's cough or sneeze. What are the symptoms of coronavirus disease? Symptoms vary from person to person and can range from mild to severe. Symptoms may include: ??? Fever. ??? Cough. ??? Tiredness, weakness, or fatigue. ??? Fast breathing or feeling short of breath. These symptoms can appear anywhere from 2 to 14 days after you have been exposed to the virus. If you develop symptoms, call your health care provider. People with severe symptoms may need hospital care. If I am exposed to the virus, how long does it take before symptoms start? Symptoms of coronavirus disease may appear anywhere from 2 to 14 days after a person has been exposed to the virus. If you develop symptoms, call your health care provider. Should I be tested for this virus? Your health care provider will decide whether to test you based on your symptoms, history of exposure, and your risk factors. How does a health care provider test for this virus? Health care providers will collect samples to send for testing. Samples may include: ??? Taking a swab of fluid from the nose. ??? Taking fluid from the lungs by having you cough up mucus (sputum) into a sterile cup. ??? Taking a blood sample. ??? Taking a stool or urine sample. Is there a treatment or vaccine for this virus? Currently, there is no vaccine to prevent coronavirus disease. Also, there are no medicines like antibiotics or antivirals to treat the virus. A person who becomes sick is given supportive care, which means rest and fluids. A person may also relieve his or her symptoms by using mira-cvc-yjnmgbp medicines that treat sneezing, coughing, and runny nose. These are the same medicines that a person takes for the common cold. If you develop symptoms, call your health care provider. People with severe symptoms may need hospital care. What can I do to protect myself and my family from this virus? You can protect yourself and your family by taking the same actions that you would take to prevent the spread of other viruses. Take the following actions: ??? Wash your hands often with soap and water for at least 20 seconds. If soap and water are not available, use alcohol-based hand lamps tester and inspector. ??? Avoid touching your face, mouth, nose, or eyes. ??? Cough or sneeze into a tissue, sleeve, or elbow. Do not cough or sneeze into your hand or the air. ? If you cough or sneeze into a tissue, throw it away immediately and wash your hands. ??? Disinfect objects and surfaces that you frequently touch every day. ??? Avoid close contact with people who are sick or have a fever or cough. Stay at least 3???6 ft (1???2 m) away from them, if possible. ??? Stay home if you are sick, except to get medical care. Call your health care provider before you get medical care. ??? Make sure your vaccines are up to date. Ask your health care provider what vaccines you need. What should I do if I need to travel? Follow travel recommendations from your local health authority, the CDC, and WHO. Travel information and advice ??? Centers for Disease Control and Prevention (CDC): www.cdc.gov/coronavirus/2019-ncov/travelers/index.html ??? World Health Organization (WHO): www.who.int/emergencies/diseases/kbtxv-afzbrhdhkdx-4582/travel-advice Know the risks and take action to protect your health ??? You are at higher risk of getting coronavirus disease if you are traveling to areas with an outbreak or if you are exposed to travelers from areas with an outbreak. ??? Wash your hands often and practice good hygiene to lower the risk of catching or spreading the virus. What should I do if I am sick? General instructions to stop the spread of infection ??? Wash your hands often with soap and water for at least 20 seconds. If soap and water are not available, use alcohol-based hand lamps tester and inspector. ??? Cough or sneeze into a tissue, sleeve, or elbow. Do not cough or sneeze into your hand or the air. ??? If you cough or sneeze into a tissue, throw it away immediately and wash your hands. ??? Stay home unless you must get medical care. Call your health care provider or local health authority before you get medical care. ??? Avoid public areas. Do not take public transportation, if possible. ??? If you can, wear a mask if you must go out of the house or if you are in close contact with someone who is not sick. Keep your home clean ??? Disinfect objects and surfaces that are frequently touched every day. This may include: ? Counters and tables. ? Doorknobs and light switches. ? Sinks and faucets. ? Electronics such as phones, remote controls, keyboards, computers, and tablets. ??? Wash dishes in hot, soapy water or use a patient safety sitter. Air-dry your dishes. ??? Wash laundry in hot water. Prevent infecting other household members ??? Let healthy household members care for children and pets, if possible. If you have to care for children or pets, wash your hands often and wear a mask. ??? Sleep in a different bedroom or bed, if possible. ??? Do not share personal items, such as razors, toothbrushes, deodorant, klein, brushes, towels, and washcloths. Where to find more information Centers for Disease Control and Prevention (CDC) ??? Information and news updates: www.cdc.gov/coronavirus/2019-ncov World Health Organization (WHO) ??? Information and news updates: www.who.int/emergencies/diseases/kjpuh-vsyrbtbwbuh-5493 ??? Coronavirus health topic: www.who.int/health-topics/coronavirus ??? Questions and answers on COVID-19: www.who.int/news-room/q-a-detail/t-r-sqfyhgebxwgfo ??? Global tracker: who.eSpace [place] [employer] (AAP) ??? Information for families: www.healthychildren.org/Serbian/health-issues/conditions/chest-lungs/Pages/201 7-Smafy-Rnjqxqhxnda.aspx The coronavirus situation is changing rapidly. Check your local health authority website or the CDC and WHO websites for updates and news. When should I contact a health care provider? Contact your health care provider if you have symptoms of an infection, such as fever or cough, and you: ? Have been near anyone who is known to have coronavirus disease. ? Have come into contact with a person who is suspected to have coronavirus disease. ? Have traveled outside of the country. When should I get emergency medical care? Get help right away by calling your local emergency services (911 in the [place] if you have: ? Trouble breathing. ? Pain or pressure in your chest. ? Confusion. ? Blue-tinged lips and fingernails. ? Difficulty waking from sleep. ? Symptoms that get worse. Let the emergency medical personnel know if you think you have coronavirus disease. Summary ??? A new respiratory virus is spreading from person to person and causing COVID-19 (coronavirus disease). ??? The virus that causes COVID-19 appears to spread easily. It spreads from one person to another through droplets from coughing or sneezing. ??? Older adults and those with chronic diseases are at higher risk of disease. If you are at higher risk for complications, take extra precautions. ??? There is currently no vaccine to prevent coronavirus disease. There are no medicines, such as antibiotics or antivirals, to treat the virus. ??? You can protect yourself and your family by washing your hands often, avoiding touching your face, and covering your coughs and sneezes. This information is not intended to replace advice given to you by your health care provider. Make sure you discuss any questions you have with your health care provider. Document Released: 08/26/2019 Document Revised: 08/26/2019 Document Reviewed: 08/26/2019 [employer] Patient Education ?? 2020 [employer] COVID-19 COVID-19, also known as coronavirus disease or novel coronavirus, is caused by a type of virus that causes respiratory illness. This may lead to inflammation and the buildup of mucus and fluids in the airway of the lungs (pneumonia). There are many different coronaviruses. Most of these viruses only affect animals, but sometimes these viruses can change and infect people. What are the causes? This illness is caused by a virus. You may catch the virus by: ??? Breathing in droplets from an infected person's cough or sneeze. ??? Touching something, like a table or a doorknob, that was exposed to the virus (contaminated) and then touching your mouth, nose, or eyes. ??? Being around animals that carry the virus, or eating uncooked or undercooked meat or animal products that contain the virus. What increases the risk? You are more likely to develop this condition if you: ??? Live in or travel to an area with a COVID-19 outbreak. ??? Come in contact with a sick person who recently traveled to an area with a COVID-19 outbreak. ??? Provide care for or live with a person who is infected with COVID-19. What are the signs or symptoms? COVID-19 causes respiratory illness that can lead to pneumonia. Symptoms of pneumonia may include: ??? A fever. ??? A cough. ??? Difficulty breathing. How is this diagnosed? This condition may be diagnosed based on: ??? Your signs and symptoms, especially if: ? You live in an area with a COVID-19 outbreak. ? You recently traveled to or from an area where the virus is common. ? You provide care for or live with a person who was diagnosed with COVID-19. ??? A physical exam. ??? Lab tests, which may include: ? A nasal swab to take a sample of fluid from your nose. ? A throat swab to take a sample of fluid from your throat. ? A sample of mucus from your lungs (sputum). ? Blood tests. How is this treated? There is no medicine to treat COVID-19. Your health care provider will talk with you about ways to treat your symptoms. This may include rest, fluids, and hckm-tbc-kxaunoi medicines. Follow these instructions at home: Lifestyle ??? Use a cool-mist humidifier to add moisture to the air. This can help you breathe more easily. ??? Do not use any products that contain nicotine or tobacco, such as cigarettes, e-cigarettes, and chewing tobacco. If you need help quitting, ask your health care provider. ??? Rest at home as told by your health care provider. ??? Return to your normal activities as told by your health care provider. Ask your health care provider what activities are safe for you. General instructions ??? Take xajg-ntw-vrjcsuj and prescription medicines only as told by your health care provider. ??? Drink enough fluid to keep your urine pale yellow. ??? Keep all follow-up visits as told by your health care provider. This is important. How is this prevented? There is no vaccine to help prevent COVID-19 infection. However, there are steps you can take to protect yourself and others from this virus. To protect yourself: ??? Do not travel to areas where COVID-19 is a risk. The areas where COVID-19 is reported change often. To identify high-risk areas, check the CDC travel website: wwwnc.cdc.gov/travel/notices ??? If you live in, or must travel to, an area where COVID-19 is a risk, take precautions to avoid infection. ? Stay away from people who are sick. ? Stay away from places where there are animals that may carry the virus. This includes places where animals and animal products are sold. Note that both living and animals can carry the virus. ? Wash your hands often with soap and water. If soap and water are not available, use an alcohol-based hand lamps tester and inspector. ? Avoid touching your mouth, face, eyes, or nose. To protect others: If you have symptoms, take steps to prevent the virus from spreading to others. ??? If you think you have a COVID-19 infection, contact your health care provider right away. Tell your health care team that you think you may have a COVID-19 infection. ??? Stay home. Leave your house only to seek medical care. ??? Do not travel while you are sick. ??? Wash your hands often with soap and water. If soap and water are not available, use alcohol-based hand lamps tester and inspector. ??? Stay away from other members of your household. If possible, stay in your own room, separate from others. Use a different bathroom. ??? Make sure that all people in your household wash their hands well and often. ??? Cough or sneeze into a tissue or your sleeve or elbow. Do not cough or sneeze into your hand or into the air. ??? Wear a face mask. Where to find more information ??? Centers for Disease Control and Prevention: www.cdc.gov/coronavirus/2019-ncov/index.html ??? World Health Organization: www.who.int/health-topics/coronavirus Contact a health care provider if: ??? You have traveled to an area where COVID-19 is a risk and you have symptoms of the infection. ??? You have contact with someone who has traveled to an area where COVID-19 is a risk and you have symptoms of the infection. Get help right away if: ??? You have trouble breathing. ??? You have chest pain. Summary ??? COVID-19 is caused by a type of virus that causes respiratory illness. This may lead to inflammation and the buildup of mucus and fluids in the airway of the lungs (pneumonia). ??? You are more likely to develop this condition if you live in or travel to an area with a COVID-19 outbreak. ??? There is no medicine to treat COVID-19. Your health care provider will talk with you about ways to treat your symptoms. ??? Take steps to protect yourself and others from infection. Wash your hands often. Stay away from other people who are sick and wear a mask if you are sick. This information is not intended to replace advice given to you by your health care provider. Make sure you discuss any questions you have with your health care provider. Document Released: 06/05/2019 Document Revised: 08/26/2019 Document Reviewed: 06/05/2019 [employer] Patient Education ?? 2020 [employer] Food Choices to Help Relieve Diarrhea, Adult When you have diarrhea, the foods you eat and your eating habits are very important. Choosing the right foods and drinks can help: ??? Relieve diarrhea. ??? Replace lost fluids and nutrients. ??? Prevent dehydration. What general guidelines should I follow? Relieving diarrhea ??? Choose foods with less than 2 g or .07 oz. of fiber per serving. ??? Limit fats to less than 8 tsp (38 g or 1.34 oz.) a day. ??? Avoid the following: ? Foods and beverages sweetened with high-fructose corn syrup, honey, or sugar alcohols such as xylitol, sorbitol, and mannitol. ? Foods that contain a lot of fat or sugar. ? Fried, greasy, or spicy foods. ? High-fiber grains, breads, and cereals. ? Raw fruits and vegetables. ??? Eat foods that are rich in probiotics. These foods include dairy products such as yogurt and fermented milk products. They help increase healthy bacteria in the stomach and intestines (gastrointestinal tract, or GI tract). ??? If you have lactose intolerance, avoid dairy products. These may make your diarrhea worse. ??? Take medicine to help stop diarrhea (antidiarrheal medicine) only as told by your health care provider. Replacing nutrients ??? Eat small meals or snacks every 3???4 hours. ??? Eat bland foods, such as white rice, toast, or baked potato, until your diarrhea starts to get better. Gradually reintroduce nutrient-rich foods as tolerated or as told by your health care provider. This includes: ? Well-cooked protein foods. ? Peeled, seeded, and soft-cooked fruits and vegetables. ? Low-fat dairy products. ??? Take vitamin and mineral supplements as told by your health care provider. Preventing dehydration ??? Start by sipping water or a special solution to prevent dehydration (oral rehydration solution, ORS). Urine that is clear or pale yellow means that you are getting enough fluid. ??? Try to drink at least 8???10 cups of fluid each day to help replace lost fluids. ??? You may add other liquids in addition to water, such as clear juice or decaffeinated sports drinks, as tolerated or as told by your health care provider. ??? Avoid drinks with caffeine, such as coffee, tea, or soft drinks. ??? Avoid alcohol. What foods are recommended? The items listed may not be a complete list. Talk with your health care provider about what dietary choices are best for you. Grains White rice. White, Ethiopian, or tin breads (fresh or toasted), including plain rolls, buns, or bagels. White pasta. Saltine, soda, or huey crackers. Pretzels. Low-fiber cereal. Cooked cereals made with water (such as cornmeal, farina, or cream cereals). Plain muffins. Matzo. [place] toast. [place]. Vegetables Potatoes (without the skin). Most well-cooked and canned vegetables without skins or seeds. Tender lettuce. Fruits Apple sauce. Fruits canned in juice. Cooked apricots, cherries, grapefruit, peaches, pears, or plums. Fresh bananas and cantaloupe. Meats and other protein foods Baked or boiled chicken. Eggs. Tofu. Fish. Seafood. Smooth nut butters. Ground or well-cooked tender beef, ham, veal, dawson, pork, or poultry. Dairy Plain yogurt, kefir, and unsweetened liquid yogurt. Lactose-free milk, buttermilk, skim milk, or soy milk. Low-fat or nonfat hard cheese. Beverages Water. Low-calorie sports drinks. Fruit juices without pulp. Strained tomato and vegetable juices. Decaffeinated teas. Sugar-free beverages not sweetened with sugar alcohols. Oral rehydration solutions, if approved by your health care provider. Seasoning and other foods Bouillon, broth, or soups made from recommended foods. What foods are not recommended? The items listed may not be a complete list. Talk with your health care provider about what dietary choices are best for you. Grains Whole grain, whole wheat, bran, or rye breads, rolls, pastas, and crackers. Wild or brown rice. Whole grain or bran cereals. Barley. Oats and oatmeal. [place] tortillas or taco shells. Granola. Popcorn. Vegetables Raw vegetables. Fried vegetables. Cabbage, broccoli, [place] sprouts, artichokes, baked beans, beet greens, corn, kale, legumes, peas, sweet potatoes, and yams. Potato skins. Cooked spinach and cabbage. Fruits Dried fruit, including raisins and dates. Raw fruits. Stewed or dried prunes. Canned fruits with syrup. Meat and other protein foods Fried or fatty meats. Deli meats. [place] nut butters. Nuts and seeds. Beans and lentils. [place]. Hot dogs. Sausage. Dairy High-fat cheeses. Whole milk, chocolate milk, and beverages made with milk, such as milk shakes. Wsuv-kne-qngp. Cream. sour cream. Ice cream. Beverages Caffeinated beverages (such as coffee, tea, soda, or energy drinks). Alcoholic beverages. Fruit juices with pulp. Prune juice. Soft drinks sweetened with high-fructose corn syrup or sugar alcohols. High-calorie sports drinks. Fats and oils Butter. Cream sauces. Margarine. Salad oils. Plain salad dressings. Olives. Avocados. Mayonnaise. Sweets and desserts Sweet rolls, doughnuts, and sweet breads. Sugar-free desserts sweetened with sugar alcohols such as xylitol and sorbitol. Seasoning and other foods Honey. Hot sauce. [place] powder. Gravy. Cream-based or milk-based soups. Pancakes and waffles. Summary ??? When you have diarrhea, the foods you eat and your eating habits are very important. ??? Make sure you get at least 8???10 cups of fluid each day, or enough to keep your urine clear or pale yellow. ??? Eat bland foods and gradually reintroduce healthy, nutrient-rich foods as tolerated, or as told by your health care provider. ??? Avoid high-fiber, fried, greasy, or spicy foods. This information is not intended to replace advice given to you by your health care provider. Make sure you discuss any questions you have with your health care provider. Document Released: 07/20/2004 Document Revised: 08/21/2019 Document Reviewed: 04/27/2017 [employer] Patient Education ?? 2020 [employer]. Diarrhea, Adult Diarrhea is when you pass loose and watery poop (stool) often. Diarrhea can make you feel weak and cause you to lose water in your body (get dehydrated). Losing water in your body can cause you to: ??? Feel tired and thirsty. ??? Have a dry mouth. ??? Go pee (urinate) less often. Diarrhea often lasts 2???3 days. However, it can last longer if it is a sign of something more serious. It is important to treat your diarrhea as told by your doctor. Follow these instructions at home: Eating and drinking Follow these instructions as told by your doctor: ??? Take an ORS (oral rehydration solution). This is a drink that helps you replace fluids and minerals your body lost. It is sold at pharmacies and stores. ??? Drink plenty of fluids, such as: ? Water. ? Ice chips. ? Diluted fruit juice. ? Low-calorie sports drinks. ? Milk, if you want. ??? Avoid drinking fluids that have a lot of sugar or caffeine in them. ??? Eat bland, bkrf-eo-dojrxk foods in small amounts as you are able. These foods include: ? Bananas. ? Applesauce. ? Rice. ? Low-fat (lean) meats. ? [place]. ? Crackers. ??? Avoid alcohol. ??? Avoid spicy or fatty foods. Medicines ??? Take jfuh-ujq-bfergfh and prescription medicines only as told by your doctor. ??? If you were prescribed an antibiotic medicine, take it as told by your doctor. Do not stop using the antibiotic even if you start to feel better. General instructions ??? Wash your hands often using soap and water. If soap and water are not available, use a hand lamps tester and inspector. Others in your home should wash their hands as well. Hands should be washed: ? After using the toilet or changing a diaper. ? Before preparing, cooking, or serving food. ? While caring for a sick person. ? While visiting someone in a hospital. ??? Drink enough fluid to keep your pee (urine) pale yellow. ??? Rest at home while you get better. ??? Watch your condition for any changes. ??? Take a warm bath to help with any burning or pain from having diarrhea. ??? Keep all follow-up visits as told by your doctor. This is important. Contact a doctor if: ??? You have a fever. ??? Your diarrhea gets worse. ??? You have new symptoms. ??? You cannot keep fluids down. ??? You feel light-headed or dizzy. ??? You have a headache. ??? You have muscle cramps. Get help right away if: ??? You have chest pain. ??? You feel very weak or you pass out (faint). ??? You have bloody or black poop or poop that looks like tar. ??? You have very bad pain, cramping, or bloating in your belly (abdomen). ??? You have trouble breathing or you are breathing very quickly. ??? Your heart is beating very quickly. ??? Your skin feels cold and clammy. ??? You feel confused. ??? You have signs of losing too much water in your body, such as: ? Dark pee, very little pee, or no pee. ? Cracked lips. ? Dry mouth. ? Sunken eyes. ? Sleepiness. ? Weakness. Summary ??? Diarrhea is when you pass loose and watery poop (stool) often. ??? Diarrhea can make you feel weak and cause you to lose water in your body (get dehydrated). ??? Take an ORS (oral rehydration solution). This is a drink that is sold at pharmacies and stores. ??? Eat bland, rkdl-xu-gjyrqg foods in small amounts as you are able. ??? Contact a doctor if your condition gets worse. Get help right away if you have signs that you have lost too much water in your body. This information is not intended to replace advice given to you by your health care provider. Make sure you discuss any questions you have with your health care provider. Document Released: 10/16/2008 Document Revised: 10/04/2018 Document Reviewed: 10/04/2018 [employer] Patient Education ?? 2020 [employer]. Nausea and Vomiting, Adult Nausea is feeling sick to your stomach or feeling that you are about to throw up (vomit). Vomiting is when food in your stomach is thrown up and out of the mouth. Throwing up can make you feel weak. It can also make you lose too much water in your body (get dehydrated). If you lose too much water in your body, you may: ??? Feel tired. ??? Feel thirsty. ??? Have a dry mouth. ??? Have cracked lips. ??? Go pee (urinate) less often. Older adults and people with other diseases or a weak body defense system (immune system) are at higher risk for losing too much water in the body. If you feel sick to your stomach and you throw up, it is important to follow instructions from your doctor about how to take care of yourself. Follow these instructions at home: Watch your symptoms for any changes. Tell your doctor about them. Follow these instructions to care for yourself at home. Eating and drinking ??? Take an ORS (oral rehydration solution). This is a drink that is sold at pharmacies and stores. ??? Drink clear fluids in small amounts as you are able, such as: ? Water. ? Ice chips. ? Fruit juice that has water added (diluted fruit juice). ? Low-calorie sports drinks. ??? Eat bland, kipw-ru-isnciw foods in small amounts as you are able, such as: ? Bananas. ? Applesauce. ? Rice. ? Low-fat (lean) meats. ? [place]. ? Crackers. ??? Avoid drinking fluids that have a lot of sugar or caffeine in them. This includes energy drinks, sports drinks, and soda. ??? Avoid alcohol. ??? Avoid spicy or fatty foods. General instructions ??? Take fqcb-ypy-fkozeqx and prescription medicines only as told by your doctor. ??? Drink enough fluid to keep your pee (urine) pale yellow. ??? Wash your hands often with soap and water. If you cannot use soap and water, use hand lamps tester and inspector. ??? Make sure that all people in your home wash their hands well and often. ??? Rest at home while you get better. ??? Watch your condition for any changes. ??? Take slow and deep breaths when you feel sick to your stomach. ??? Keep all follow-up visits as told by your doctor. This is important. Contact a doctor if: ??? Your symptoms get worse. ??? You have new symptoms. ??? You have a fever. ??? You cannot drink fluids without throwing up. ??? You feel sick to your stomach for more than 2 days. ??? You feel light-headed or dizzy. ??? You have a headache. ??? You have muscle cramps. ??? You have a rash. ??? You have pain while peeing. Get help right away if: ??? You have pain in your chest, neck, arm, or jaw. ??? You feel very weak or you pass out (faint). ??? You throw up again and again. ??? You have throw up that is bright red or looks like black coffee grounds. ??? You have bloody or black poop (stools) or poop that looks like tar. ??? You have a very bad headache, a stiff neck, or both. ??? You have very bad pain, cramping, or bloating in your belly (abdomen). ??? You have trouble breathing. ??? You are breathing very quickly. ??? Your heart is beating very quickly. ??? Your skin feels cold and clammy. ??? You feel confused. ??? You have signs of losing too much water in your body, such as: ? Dark pee, very little pee, or no pee. ? Cracked lips. ? Dry mouth. ? Sunken eyes. ? Sleepiness. ? Weakness. These symptoms may be an emergency. Do not wait to see if the symptoms will go away. Get medical help right away. Call your local emergency services (911 in the [place] Do not drive yourself to the hospital. Summary ??? Nausea is feeling sick to your stomach or feeling that you are about to throw up (vomit). Vomiting is when food in your stomach is thrown up and out of the mouth. ??? Follow instructions from your doctor about eating and drinking to keep from losing too much water in your body. ??? Take ueil-szn-xsocryc and prescription medicines only as told by your doctor. ??? Contact your doctor if your symptoms get worse or you have new symptoms. ??? Keep all follow-up visits as told by your doctor. This is important. This information is not intended to replace advice given to you by your health care provider. Make sure you discuss any questions you have with your health care provider. Document Released: 10/16/2008 Document Revised: 08/22/2019 Document Reviewed: 10/08/2018 [employer] Patient Education ?? 2020 [employer] Dehydration, Adult Dehydration is when there is not enough fluid or water in your body. This happens when you lose more fluids than you take in. Dehydration can range from mild to very bad. It should be treated right away to keep it from getting very bad. Symptoms of mild dehydration may include: ??? Thirst. ??? Dry lips. ??? Slightly dry mouth. ??? Dry, warm skin. ??? Dizziness. Symptoms of moderate dehydration may include: ??? Very dry mouth. ??? Muscle cramps. ??? Dark pee (urine). Pee may be the color of tea. ??? Your body making less pee. ??? Your eyes making fewer tears. ??? Heartbeat that is uneven or faster than normal (palpitations). ??? Headache. ??? Light-headedness, especially when you stand up from sitting. ??? Fainting (syncope). Symptoms of very bad dehydration may include: ??? Changes in skin, such as: ? Cold and clammy skin. ? Blotchy (mottled) or pale skin. ? Skin that does not quickly return to normal after being lightly pinched and let go (poor skin turgor). ??? Changes in body fluids, such as: ? Feeling very thirsty. ? Your eyes making fewer tears. ? Not sweating when body temperature is high, such as in hot weather. ? Your body making very little pee. ??? Changes in vital signs, such as: ? Weak pulse. ? Pulse that is more than 100 beats a minute when you are sitting still. ? Fast breathing. ? Low blood pressure. ??? Other changes, such as: ? Sunken eyes. ? Cold hands and feet. ? Confusion. ? Lack of energy (lethargy). ? Trouble waking up from sleep. ? Short-term weight loss. ? Unconsciousness. Follow these instructions at home: ??? If told by your doctor, drink an ORS: ? Make an ORS by using instructions on the package. ? Start by drinking small amounts, about ?? cup (120 mL) every 5???10 minutes. ? Slowly drink more until you have had the amount that your doctor said to have. ??? Drink enough clear fluid to keep your pee clear or pale yellow. If you were told to drink an ORS, finish the ORS first, then start slowly drinking clear fluids. Drink fluids such as: ? Water. Do not drink only water by itself. Doing that can make the salt (sodium) level in your body get too low (hyponatremia). ? Ice chips. ? Fruit juice that you have added water to (diluted). ? Low-calorie sports drinks. ??? Avoid: ? Alcohol. ? Drinks that have a lot of sugar. These include high-calorie sports drinks, fruit juice that does not have water added, and soda. ? Caffeine. ? Foods that are greasy or have a lot of fat or sugar. ??? Take zmjz-emd-kjizhdm and prescription medicines only as told by your doctor. ??? Do not take salt tablets. Doing that can make the salt level in your body get too high (hypernatremia). ??? Eat foods that have minerals (electrolytes). Examples include bananas, oranges, potatoes, tomatoes, and spinach. ??? Keep all follow-up visits as told by your doctor. This is important. Contact a doctor if: ??? You have belly (abdominal) pain that: ? Gets worse. ? Stays in one area (localizes). ??? You have a rash. ??? You have a stiff neck. ??? You get angry or annoyed more easily than normal (irritability). ??? You are more sleepy than normal. ??? You have a harder time waking up than normal. ??? You feel: ? Weak. ? Dizzy. ? Very thirsty. ??? You have peed (urinated) only a small amount of very dark pee during 6???8 hours. Get help right away if: ??? You have symptoms of very bad dehydration. ??? You cannot drink fluids without throwing up (vomiting). ??? Your symptoms get worse with treatment. ??? You have a fever. ??? You have a very bad headache. ??? You are throwing up or having watery poop (diarrhea) and it: ? Gets worse. ? Does not go away. ??? You have blood or something green (bile) in your throw-up. ??? You have blood in your poop (stool). This may cause poop to look black and tarry. ??? You have not peed in 6???8 hours. ??? You pass out (faint). ??? Your heart rate when you are sitting still is more than 100 beats a minute. ??? You have trouble breathing. This information is not intended to replace advice given to you by your health care provider. Make sure you discuss any questions you have with your health care provider. Document Released: 02/24/2010 Document Revised: 04/12/2018 Document Reviewed: 06/23/2016 Elsevier Patient Education ?? 2020 [employer] Inc. Emergency Awareness and Preventative Care STROKE is [...] Assistance with quitting is available by contacting 7-187-IDUWNOW. This is a free resource providing counseling, support, and referral. Or you may contact your personal physician. [place] Suicide Prevention Lifeline: The National Suicide Prevention [...] CPR? There are two easy steps: Call 9-1-1 if you see a teen or adult [...] was given the opportunity to ask questions. Patient/Central Service Supply Distributor Name: Patient/Central Service Supply Distributor Signature: Relationship to Patient: Clinician/Hospital Central Service Supply Distributor Signature: Please Provide a Telephone Number Where You Can Be Reached: Is it Permissible To Leave a Message? Date: Electronically signed by Jannette, [facility] Conversion Rn Critical Care Cerner at 08/31/2022 5:06 PM CDT documented in this encounter Plan of Treatment Not on file documented as of this encounter Visit Diagnoses Not on filedocumented in this encounter Care Teams Leather Splitter Relationship Specialty Start Date End Date Alan Beyer MD [address] [place] [address] PCP - General Family Medicine 06/08/23 documented as of this encounter
--- OUTSIDE RECORDS SUMMARY | 2024-11-05 10:17 | XMS_ITS | Encounter Summary ---
Author Organization [employer] Address [address] [place] [address] Care Team Providers Care Procurement Analyst Name Role Phone Alan Beyer MD Primary Care Provider [phone] Encounter Details Date Type Department Care Team (Late st Contact Info) Description 05/30/2021 Transcribed Document [facility] Family Medicine [facility] [place] [address] ProviderJessenia MD [address] [place], [place] [address] Social History Tobacco Use Types Packs/Day Years Used Date Smoking Tobacco: Never Assessed Comments Unknown Sex and Gender Information Value Date Recorded Sex Assigned at Not on file Legal Sex Female 4:28 PM CDT Gender Identity Not on file Sexual Orientation Not on file documented as of this encounter Miscellaneous Notes * Cerner Conversion Note - Jessenia Alvarez MD - 05/30/2021 6:15 PM BOBBIN INSPECTOR [place] Suicide Severity Rating Scale (C-SSRS) Entered On: 05/30/2021 21:17 EST Performed On: 05/30/2021 20:53 EST by VANDANA KHALIL RN-PATIENT CARE BEDSIDE NON-EXEMPT [place] Suicide Severity Rating Scale (C-SSRS) CSSRS Past Month Wish to be : No CSSRS Past Month Suicidal Thoughts : No CSSRS Lifetime Suicide Behavior : No Suicide Severity Rating Score : 0 Suicide Severity Rating : No Additional Care Required at this time VANDANA KHALIL RN-PATIENT CARE BEDSIDE NON-EXEMPT - 05/30/2021 20:53 EST documented in this encounter Plan of Treatment Not on file documented as of this encounter Visit Diagnoses Not on filedocumented in this encounter Care Teams Procurement Analyst Relationship Specialty Start Date End Date Alan Beyer MD [address] [place] [address] PCP - General Family Medicine 06/08/23 documented as of this encounter
--- OUTSIDE RECORDS SUMMARY | 2024-11-05 10:17 | XMS_ITS | Encounter Summary ---
Author Organization [employer] Address [address] [place] [address] Care Team Providers Care Systems Security Consultant Name Role Phone Alan Beyer MD Primary Care Provider [phone] Encounter Details Date Type Department Care Team (Late st Contact Info) Description 02/08/2021 Transcribed Document [facility] [place] [address] ProviderJessenia MD [address] [place], [place] [id number] Social History Tobacco Use Types Packs/Day Years [...] Alvarez MD - 02/08/2021 5:59 PM CDT Broset Violence Assessment Entered On: 02/08/2021 22:12 EDT Performed On: 02/08/2021 22:10 EDT by John Tavarez RN-PATIENT CARE BEDSIDE NON-EXEMPT Broset Violence Assessment Broset Violence Checklist of Symptoms : None Broset Violence Symptoms Subtotal : 0 Broset Violence Symptoms Indicator : Low risk (0) Broset Interventions : [place] precautions for safety used John Tavarez RN-PATIENT CARE BEDSIDE NON-EXEMPT - 02/08/2021 22:10 EDT Electronically signed by Trevon Bhatia Conversion Screw Machine Set Up Operator Cerner at 08/31/2022 5:21 PM CDT documented in this encounter Plan of Treatment Not on file documented as of this encounter Visit Diagnoses Not on filedocumented in this encounter Care Teams Systems Security Consultant Relationship Specialty Start Date End Date Alan Beyer MD [address] [place] [address] PCP - General Family Medicine 06/08/23 documented as of this encounter
--- OUTSIDE RECORDS SUMMARY | 2024-11-05 10:17 | XMS_ITS | Encounter Summary ---
Author Organization [employer] Address [address] [place] [address] Care Team Providers Care Ceramic Products Sales Engineer Name Role Phone Alan Beyer MD Primary Care Provider [phone] Encounter Details Date Type Department Care Team (Late st Contact Info) Description 07/13/2021 Transcribed Document [facility] [place] [facility] [place] [address] ProviderJessenia MD [address] [place], [place] [id number] Social History Tobacco Use Types Packs/Day Years Used Date Smoking Tobacco: Never Assessed Comments Unknown Sex and Gender Information Value Date Recorded Sex Assigned at Not on file Legal Sex Female 4:28 PM CDT Gender Identity Not on file Sexual Orientation Not on file documented as of this encounter Miscellaneous Notes * Cerner Conversion Note - Jessenia Alvarez MD - 07/13/2021 3:53 AM WOODS LABORER ED Event Note Entered On: 07/13/2021 3:53 EST Performed On: 07/13/2021 3:53 EST by Kay Bernal, EVENT SET UP SPECIALIST Event Note ED Event Date/Time : 07/13/2021 3:53 EST ED Event Location : Assigned room ED Event Details : Nursing assessment additional narrative ED Description of Event : Dr. Qiu at bedside to evaluate pt. Kay Bernal, RN - 07/13/2021 3:52 EST documented in this encounter Plan of Treatment Not on file documented as of this encounter Visit Diagnoses Not on filedocumented in this encounter Care Teams Ceramic Products Sales Engineer Relationship Specialty Start Date End Date Alan Beyer MD [address] [place] [address] PCP - General Family Medicine 06/08/23 documented as of this encounter
--- OUTSIDE RECORDS SUMMARY | 2024-11-05 10:17 | XMS_ITS | Encounter Summary ---
Author Organization [employer] Address [address] [place] [address] Care Team Providers Care Truck Dock Material Mover Name Role Phone Alan Beyer MD Primary Care Provider [phone] Encounter Details Date Type Department Care Team (Late st Contact Info) Description 03/16/2020 Transcribed Document [facility] [place] [address] [place] [address] ProviderJessenia MD [address] [place], [place] [id number] Social History Tobacco Use Types Packs/Day Years Used Date Smoking Tobacco: Never Assessed Comments Unknown Sex and Gender Information Value Date Recorded Sex Assigned at Not on file Legal Sex Female 4:28 PM CDT Gender Identity Not on file Sexual Orientation Not on file documented as of this encounter Miscellaneous Notes * Cerner Conversion Note - Jessenia Alvarez MD - 03/16/2020 1:15 PM PRODUCT SAFETY HEAD ED Assessment Entered On: 03/16/2020 16:19 EST Performed On: 03/16/2020 16:17 EST by SHAMA CASTILLO RN ED Quick Look Assessment Level of Consciousness : Alert, Awake Affect/Behavior : Appropriate, Calm, Cooperative Orientation : Oriented x 4 Skin Temperature : Warm Skin Description : Dry SHAMA CASTILLO RN - 03/16/2020 16:17 EST ED General-Functional Assess Information Obtained From : Patient Preferred Communication Mode : Verbal Communication Barrier : None Primary Language : Swiss Any Spiritual/Cultural Needs or Requests : No Currently in Unsafe Situation : No SHAMA CASTILLO RN - 03/16/2020 16:17 EST Social Habits Smoking Status : 10 or more cigarettes (1/2 pack or more)/day in last 30 days Smokeless Tobacco Status : Never Desires Tobacco Cessation Medication : No Reason for No Tobacco Cessation Medication : ED/procedural patient only Desires Tobacco Cessation Calc : 1 SHAMA CASTILLO RN - 03/16/2020 16:17 EST Social History (As Of: 03/16/2020 16:19:17 EST) Tobacco: 10 or more cigarettes (1/2 pack or more)/day in last 30 days Smoking Status. Never Smokeless Tobacco Status. (Last Updated: 12/16/2017 15:18:02 EDT by SHAMA CASTILLO RN) 10 or more cigarettes (1/2 pack or more)/day in last 30 days Smoking Status. Refused tobacco status screen Smokeless Tobacco Status. None Smokeless Tobacco Use History. Years of Use: 17. (Last Updated: 05/24/2018 10:39:04 EST by Breanna Ivey RN) Alcohol: Alcohol Use History No. (Last Updated: 07/26/2015 22:29:17 EDT by ERICKA ISSA RN) Alcohol Use History No. (Last Updated: 05/24/2018 10:39:04 EST by Breanna Ivey RN) Substance Abuse: Drug Use Hx: No. Use in Last 12 Months: No. (Last Updated: 07/26/2015 22:29:17 EDT by ERICKA ISSA RN) Drug Use Hx: No. Use in Last 12 Months: No. (Last Updated: 05/24/2018 10:39:04 EST by Breanna Ivey, ELVER) Nutrition/Health: Regular (Last Updated: 05/24/2018 10:39:04 EST by Breanna Ivey RN) Gastrointestinal ED Gastrointestinal Assessment WDL : WDL with exceptions Gastrointestinal Symptoms : Diarrhea, Nausea, Vomiting SHAMA CASTILLO RN - 03/16/2020 16:17 EST documented in this encounter Plan of Treatment Not on file documented as of this encounter Visit Diagnoses Not on filedocumented in this encounter Care Teams Truck Dock Material Mover Relationship Specialty Start Date End Date Alan Beyer MD [address] [place] [address] PCP - General Family Medicine 06/08/23 documented as of this encounter
--- OUTSIDE RECORDS SUMMARY | 2024-11-05 10:17 | XMS_ITS | Encounter Summary ---
Author Organization [employer] Address [address] [place] [address] Care Team Providers Care Triage Licensed Practical Nurse Name Role Phone Alan Beyer MD Primary Care Provider [phone] Encounter Details Date Type Department Care Team (Late st Contact Info) Description 03/30/2021 Transcribed Document [facility] Radiology [address] [place] [address] Yomi Rodríguez MD [address] [place] [address] Dept. of Emergency Medicine [place] [id number] Social History Tobacco Use Types Packs/Day Years Used Date Smoking Tobacco: Never Assessed Comments Unknown Sex and Gender Information Value Date Recorded Sex Assigned at Not on file Legal Sex Female 4:28 PM CDT Gender Identity Not on file Sexual Orientation Not on file documented as of this encounter Miscellaneous Notes * Cerner Conversion Note - Yomi Rodríguez MD - 03/30/2021 12:12 PM EST CR Chest 1 Vw Portable Ordered: 03/30/2021 Modified Reason for Exam: chest pain 03/30/2021 08:32 03/30/2021 11:12 (YOMI RODRÍGUEZ MD-EMR) Reviewed by Provider, No further action required Electronically signed by Jannette [facility] Conversion Press Feeder Broomcorn Cerner at 08/31/2022 5:13 PM CDT documented in this encounter Plan of Treatment Not on file documented as of this encounter Visit Diagnoses Not on filedocumented in this encounter Care Teams Triage Licensed Practical Nurse Relationship Specialty Start Date End Date Alan Beyer MD [address] [place] [address] PCP - General Family Medicine 06/08/23 documented as of this encounter
--- OUTSIDE RECORDS SUMMARY | 2024-11-05 10:17 | XMS_ITS | Encounter Summary ---
Author Organization [employer] Address [address] [place] [address] Care Team Providers Care Drain Technician Name Role Phone Alan Beyer MD Primary Care Provider [phone] Encounter Details Date Type Department Care Team (Late st Contact Info) Description 03/30/2021 Transcribed Document [facility] [place] [facility] [place] [address] ProviderJessenia MD [address] [place], [place] [id number] Social History Tobacco Use Types Packs/Day Years Used Date Smoking Tobacco: Never Assessed Comments Unknown Sex and Gender Information Value Date Recorded Sex Assigned at Not on file Legal Sex Female 4:28 PM CDT Gender Identity Not on file Sexual Orientation Not on file documented as of this encounter Miscellaneous Notes * Cerner Conversion Note - Jessenia Alvarez MD - 03/30/2021 1:50 AM RESPIRATORY TECHNICIAN Patient: CHARLINE BOND Age: 40 years Sex: Female : 1980 Associated Diagnoses: Hypertension; Nonspecific chest pain; Headache Author: JAVI TRUJILLO MD Basic Information Time seen: Date & time 03/30/2021 01:50:00, Voice recognition / commercial representative technology used for some documentation in this chart in attempt to mitigate substantial inefficiencies created by this electronic health record technology. As a result, there may be some typos and/or non-sensical language introduced into the chart that either are overlooked in editing/review and/or that I am unable to correct as patient care needs require me to prioritize my attention to bedside patient care rather than electronic documentation.. . History source: Patient. Arrival mode: Private vehicle. History limitation: None. Additional information: Chief Complaint from Nursing Triage Note : Chief Complaint 03/30/2021 1:28 EST Chief Complaint Pt co Mid chest pain with pain into left sided neck with tingling into left arm and face. pt is anxious alert skinpwd. . History of Present Illness Ms. Bond, presents via POV to room #8, alone. She reports that she has had a persistent cough for approximately 3 weeks now. She states that she has had Covid for 3 times and does not have Covid presently. She states that this evening she started having what she describes as a headache in the left occipital region of her head with a cold sensation that radiates over her head as well as a numbness in her face bilaterally. She denies any visual disturbances, difficulty with speech or swallowing, focal or lateralizing neurologic symptoms. She states that she did then started having some discomfort into her chest on the left side and into her arm. She states that she waited for approximately 3 hours and then decided to come in for further evaluation. She states that she does have a history of migraine headaches but this is not similar to that. She states that the pain is localized in her left occipital region and then will spontaneously occur and resolved. She states that the duration last anywhere between 20 to 45 seconds. The patient presents with chest pain. The onset was 3 hours ago. The course/duration of symptoms is episodic: with multiple episodes and lasting 45 seconds. Location: Left chest. Radiating pain: arm(s). The character of symptoms is sharp. The degree at onset was moderate. The degree at maximum was moderate. The degree at present is none. The exacerbating factor is none. The relieving factor is none. Risk factors consist of family history of coronary artery disease, not coronary artery disease, not hypertension, not diabetes mellitus, not smoking, not obesity, not hyperlipidemia, not pulmonary embolism and not deep vein thrombosis. Prior episodes: non-cardiac. Therapy today None. Associated symptoms: nausea, anxiety, denies shortness of breath, denies vomiting, denies diaphoresis and denies palpitations. Additional history: See note above.. Review of Systems Constitutional symptoms: No fever, no chills, no weakness, no fatigue, no decreased activity. Skin symptoms: No jaundice, no rash, no pruritus, no abrasions, no petechiae. Eye symptoms: Vision unchanged. ENMT symptoms: No sore throat, no nasal congestion. Respiratory symptoms: Cough, no shortness of breath, no orthopnea. Cardiovascular symptoms: Chest pain, No palpitations, Gastrointestinal symptoms: No abdominal pain, no nausea, no vomiting, no diarrhea, no constipation, no rectal bleeding. Genitourinary symptoms: No dysuria, no hematuria, no vaginal bleeding, no vaginal discharge. Musculoskeletal symptoms: No back pain, no Muscle pain, no Joint pain. Neurologic symptoms: Numbness, no headache, no dizziness, no altered level of consciousness, no tingling, no weakness. Psychiatric symptoms: Anxiety, No depression, Endocrine symptoms: No polyuria, no polydipsia. Hematologic/Lymphatic symptoms: Bleeding tendency negative, bruising tendency negative, no petechiae. Allergy/immunologic symptoms: No recurrent infections, no impaired immunity. Health Status Allergies: Allergic Reactions (Selected) Severe [...] Toradol- No reactions were documented.. Medications: (Selected) Documented Medications Documented Karine: Oral, Daily, 0 Refill(s) Premarin: Vaginal, Weekly, cream, 0 Refill(s) Robaxin-750 oral tablet: 1 Tab, Oral, Daily, 42 Tab, 0 Refill(s) Valtrex: 500 mg, Oral, Daily, fever blister, 0 Refill(s) ibuprofen: 400 mg, Oral, Q8H, PRN: as needed for pain, 0 Refill(s). Immunizations: Unknown. Menstrual history: Hysterectomy. Past Medical/ Family/ Social History Medical history Genitourinary: renal stone, ovarian cyst. Neurological: migraine, headache. Psychiatric: anxiety. Surgical history: Clavicle ([id number]). Tympanostomy ([id number]). Adenoids ([id number]). shoulder surgery. Gallbladder absent ([id number]). Tubal ligation ([id number]). Hysterectomy ([id number]). Right knee ([id number]). Comments: 05/03/2020 15:32 EST - Jyoti Frazier Rn menisectomy. Family history: Heart attack Father Sister Coronary [...] History vap Years of Tobacco Use 17 . Physical Examination Vital Signs Vital Signs/Vital Measures 03/30/2021 1:28 EST Systolic Blood Pressure 170 mmHg HI Diastolic Blood Pressure 104 mmHg HI Temperature Source Oral Temperature Mode Fahrenheit Temperature, Fahrenheit 97.8 Deg F Clinical Temperature, C 36.6 Deg C Peripheral Pulse Rate 100 bpm Respiratory Rate 18 Breaths/Min Oxygen Saturation 100 % Oxygen Therapy Mode Room air . Measurements 03/30/2021 1:28 EST Height Source Measured Height Entry Format [place] Height/Length, AMHARIC (ft) 5 ft Height/Length AMHARIC 6 Inch CLINICALHEIGHT 167.64 cm [place] Body Weight 58.88 kg Weight Source, ED Critical estimated dosing weight Weight Entry Format [place] Weight Mongolian lb 170 lb CLINICALWEIGHT 77.27 kg Body Surface Area (BSA) 1.87 m2 Body Mass Index 27.5 kg/m2 HI . Oxygen saturation. General: Alert, no acute distress, anxious, well nourished, calm, cooperative, well hydrated, Ambulation status: With steady gait. Skin: Warm, dry, pink, intact, no pallor, no rash. Head: Normocephalic, atraumatic, . Neck: Supple, trachea midline, no tenderness. Eye: Pupils are equal, round and reactive to light, extraocular movements are intact, normal conjunctiva. Ears, nose, mouth and throat: Oral mucosa moist. Cardiovascular: Regular rate and rhythm, No murmur, Normal peripheral perfusion, No edema. Respiratory: Lungs are clear to auscultation, respirations are non-labored, breath sounds are equal, Symmetrical chest wall expansion. Chest wall: No tenderness, No deformity. Back: Nontender, Normal range of motion. Musculoskeletal: Normal ROM, normal strength, no tenderness, no swelling. Gastrointestinal: Soft, Nontender, Non distended, Normal bowel sounds, No organomegaly. Genitourinary: Exam deferred. Neurological: Alert and oriented to person, place, time, and situation, No focal neurological deficit observed. Lymphatics: No lymphadenopathy. Psychiatric: Cooperative, appropriate mood & affect. Medical Decision Making Documents reviewed: Emergency department nurses' notes, emergency department records, prior records. Orders Include Previous Orders (Selected) Inpatient Orders Ordered Broset Violence Assessment: Cardiac Monitoring: Discharge: ED Adult Fall Risk Assessment: ED C-SSRS: ED Clinical Reconciliation: ED automotive technician instructor: EKG: Pulse Oximetry Continuous Monitoring: Ordered (Exam Completed) CR Chest 1 Vw Portable: CT Head WO: Completed .Automated Differential: Benadryl: 25 mg, IV Push, 1-Time CBC w/ Auto Diff: CMP Comprehensive Metabolic Panel: ED Adult Triage: Phenergan: 12.5 mg, IV Push, 1-Time ProBNP: Stadol: 1 mg, IV Push, 1-Time Troponin I Ultra: promethazine: 12.5 mg, IV Push, 1-Time Prescriptions Prescribed cyclobenzaprine 10 mg oral tablet: 1 Tab, Oral, TID, for 5 Day(s), PRN: as needed for spasm, 15 Tab, 0 Refill(s) predniSONE 10 mg oral tablet: See Instructions, Six-day tapering Dosepak, 21 Tab, 0 Refill(s). Electrocardiogram: Time 03/30/2021 01:33:00, rate 95, normal sinus rhythm, Interpretation by Emergency Physician Interpreted by me contemporaneously with care, within normal limits. Results review: Lab results : Lab Results 03/30/2021 2:09 EST ProBNP 126 pg/mL HI 03/30/2021 1:28 EST Sodium Level 143 mmol/L Potassium Level 3.9 mmol/L Chloride Level 110 mmol/L Carbon Dioxide Level 26 mmol/L Anion Gap 11 Glucose Level 94 mg/dL Blood Urea Nitrogen 15 mg/dL Creatinine Level 0.72 mg/dL eGFR >60 mL/min/1.73m2 eGFR NonAfrican >60 mL/min/1.73m2 Bun/Creatinine 20.8 HI Calcium Level 8.4 mg/dL LOW Protein Total 7.6 Gram/dL Albumin Level 4.0 Gram/dL Globulin 3.6 Gram/dL A/G Ratio 1.1 Bilirubin Total 0.2 mg/dL Alk Phos 82 Units/Liter AST 13 Units/Liter ALT 15 Units/Liter Troponin I Ultra <0.015 ng/mL WBC 6.9 K/uL RBC 3.76 Million/uL LOW Hgb 12.9 Gram/dL Hct 39.3 % MCV 104.5 fL HI MCH 34.3 pg HI MCHC 32.8 Gram/dL Platelet Count 202 K/uL MPV 9.8 fL RDW 12.2 % Neut % 44.0 % Neut # 3.04 K/uL Lymph % 43.8 % Lymph # 3.03 K/uL Pleasants % 7.2 % Pleasants # 0.50 K/uL Eos % 4.5 % Eos # 0.31 K/uL Baso % 0.4 % Baso # 0.03 K/uL Slide Review No IG# 0 x10(3)/uL IG% 0 % . Chest X-Ray: Time reported 03/30/2021 02:18:00, no acute disease process, View: AP, interpretation by Emergency Physician. Radiology results: Computed tomography, interpretation: Preliminary Report NAME: CHARLINE BOND / SEX: 1980 / Female MRN / ACC#: [id number] / [id number] ORDERING PHYSICIAN: Ordering Provider, Update EXAM REQUESTED: [id number] HEAD/BRAIN W/O CONTRAST FACILITY: [facility] DATE: 03/30/2021 RADIOLOGIST NAME: MD Titus David TECHNIQUE: null CLINICAL HISTORY: pt c/o right sided neck pain radiating to head and shoulder, with headache and dizziness onset tonight COMPARISON: null FINDINGS: CT head without: Comparison: None Findings: Age-appropriate sulcation. No intracranial mass, midline shift, hydrocephalus, acute hemorrhage or infarct. Unremarkable orbits. Visualized paranasal sinuses are clear. Mastoid air cells are clear. No skull fracture. No significant scalp soft tissue swelling. IMPRESSION: Impression: 1. No acute intracranial abnormality. Age-appropriate exam. Signed by MD Titus David on 03/30/2021 3:42:55 AM, Eastern Time Sneha WADE Notes: This patient was screened for and treated during the XHNC-Pwwfm-[id number] epidemic, with some possible constraints and deviations from usual care due to this. If tested and screened, the patient was educated on quarantine and isolation protocols until her follow-up test. . Reexamination/ Reevaluation Vital signs results included from flowsheet : Vital Measurements 03/30/2021 4:17 EST Systolic Blood Pressure 132 mmHg Diastolic Blood Pressure 92 mmHg HI Mean Arterial Pressure (MAP)-BMDI 106 Heart Rate Monitored 91 bpm Respiratory Rate 27 Breaths/Min HI Oxygen Saturation 99 % Impression and Plan Diagnosis Hypertension - Discharge, Emergency medicine, Medical Nonspecific chest pain - Discharge, Emergency medicine, Medical Headache - Discharge, Emergency medicine, Medical Plan Condition: Stable. Disposition: Discharged Admit/Transfer/Discharge: Discharge (Order): Start: 03/30/2021 4:28 EST, Discharge to: Home. Prescriptions: Prescription Dental Assistant Pharmacy: cyclobenzaprine 10 mg oral tablet (Prescribe): 1 Tab, Oral, TID, for 5 Day(s), PRN: as needed for spasm, 15 Tab, 0 Refill(s) predniSONE 10 mg oral tablet (Prescribe): See Instructions, Six-day tapering Dosepak, 21 Tab, 0 Refill(s). Patient was given the following educational materials: General Headache Without Cause, Nonspecific Chest Pain, Adult, [id number], Hypertension, Adult, [id number], Managing Your Hypertension. Limitations: Limited activity. Follow up with: RHIANNA MARTIN Within 2 to 3 days Your blood pressure was elevated during your visit to the emergency department today. There may be many reasons as to why this may be, including your condition upon arrival to the hospital, as well as, the stress involved with your situation. I have provided you with a phone contact in order to arrange follow-up for this condition and its potential complications you may certainly arrange follow-up with your primary provider. Return or go to the nearest emergency department for, dizziness, worsening uncontrolled pain and/or persistent vomiting. Prescriptions (2) Active cyclobenzaprine 10 mg oral tablet 10 mg = 1 Tab, Tab, TID, Oral, PRN, as needed for spasm, 5 Day(s), 15 Tab, 0 refill(s), Route to Pharmacy Electronically, [facility] [address] predniSONE 10 mg oral tablet See Instructions, Tab, Six-day tapering Dosepak, 21 Tab, 0 refill(s), Route to Pharmacy Electronically, [facility] [address] . Counseled: Patient, Regarding diagnosis, Regarding diagnostic results, Regarding treatment plan, Regarding prescription, Patient indicated understanding of instructions, Pre-hypertension/Hypertension: The patient has been informed that they may have pre-hypertension or Hypertension based on a blood pressure reading in the emergency department. I recommend that the patient call the primary care provider listed on their discharge instructions or a physician of their choice this week to arrange follow up for further evaluation of possible pre-hypertension or Hypertension.. documented in this encounter Plan of Treatment Not on file documented as of this encounter Visit Diagnoses Not on filedocumented in this encounter Care Teams Drain Technician Relationship Specialty Start Date End Date Alan Beyer MD [address] [place] [address] PCP - General Family Medicine 06/08/23 documented as of this encounter
--- OUTSIDE RECORDS SUMMARY | 2024-11-05 10:17 | XMS_ITS | Encounter Summary ---
Author Organization [employer] Address [address] [place] [address] Care Team Providers Care Senior Landscape Architect Name Role Phone Alan Beyer MD Primary Care Provider [phone] Encounter Details Date Type Department Care Team (Late st Contact Info) Description 07/13/2021 Transcribed Document [facility] [place] [facility] [place] [address] ProviderJessenia MD [address] [place] [address] Social History Tobacco Use Types Packs/Day Years Used Date Smoking Tobacco: Never Assessed Comments Unknown Sex and Gender Information Value Date Recorded Sex Assigned at Not on file Legal Sex Female 4:28 PM CDT Gender Identity Not on file Sexual Orientation Not on file documented as of this encounter Miscellaneous Notes * Cerner Conversion Note - Jessenia Alvarez MD - 07/13/2021 2:31 PM OUTSIDE B2B SALES Admission History, Adult Entered On: 07/13/2021 14:49 EST Performed On: 07/13/2021 14:31 EST by Martita Skinner RN-PATIENT CARE BEDSIDE NON-EXEMPT Advance Directive Patient has Advance Directive *Q : No, patient refuses Advance Directive information Martita Skinner RN-PATIENT CARE BEDSIDE NON-EXEMPT - 07/13/2021 14:31 EST Anesthesia/Transfusion History Family History of Anesthesia Reaction : No prior transfusion(s) Blood Transfusion Acceptable to Patient : Yes Transfusion History : Prior anesthesia without reaction Family History of Anesthesia Reaction : None Martita Skinner RN-PATIENT CARE BEDSIDE NON-EXEMPT - 07/13/2021 14:31 EST Anticipated Discharge Needs Discharge To, Anticipated : Home Anticipated Discharge Needs at This Time : None Martita Skinner RN-PATIENT CARE BEDSIDE NON-EXEMPT - 07/13/2021 14:31 EST Education Topics, Admission Orientation DCP GENERIC CODE Advance Directives : Verbalizes understanding Allergy Band Applied : Verbalizes understanding Assessment/Vital Signs : Verbalizes understanding Bed Control : Verbalizes understanding Call Light : Verbalizes understanding Confidentiality : Verbalizes understanding Diet/Room Service : Verbalizes understanding Fall Prevention : Verbalizes understanding Hand Hygiene : Verbalizes understanding Healthcare Provider Visit : Verbalizes understanding ID Band Applied : Verbalizes understanding Isolation Precautions : Verbalizes understanding Orientation to Room/Bathroom : Verbalizes understanding Patient Bill of Rights : Verbalizes understanding Patient Rights/Responsibilities : Verbalizes understanding Patient Safety : Verbalizes understanding Personal Privacy Code : Verbalizes understanding Rapid Response Initiated by Patient/Family : Verbalizes understanding Rounding : Verbalizes understanding Siderails use/risks : Verbalizes understanding Skin Precautions : Verbalizes understanding Smoking Policy : Verbalizes understanding Telemetry Monitoring : Verbalizes understanding Television/Phone : Verbalizes understanding Visiting Policy : Verbalizes understanding Martita Skinner RN-PATIENT CARE BEDSIDE NON-EXEMPT - 07/13/2021 14:31 EST Functional Assessment Living Situation : Home Persons Assisting Patient at Home : Child/Children Current Daily Living Assistance : None Sensory Deficits : None Mobility Assistance Prior to Admission : Independent HUNTER Hx Falls Immediate/Within 3 Months : No Current Home Treatments : None Martita Skinner RN-PATIENT CARE BEDSIDE NON-EXEMPT - 07/13/2021 14:31 EST General Info Preferred Name : Charline Mode of Arrival on Unit : Stretcher Legal Guardian : Mother, Significant other Want Family/Rep/Phys Notified of Admit : No Emergency Contact #1 : Jean-Pierre Delgado Emergency Contact #1 Phone Number : [phone] Emergency Contact #1 Relationship : mother Emergency Contact #2 : Bentley Allen Emergency Contact #2 Phone Number : [phone] Emergency Contact #2 Relationship : other (ex mychal) Identified Medical Decision Maker : Jean-Pierre Delgado Identified Medical Decision Maker Phone : [phone] Number of People in Class : 1 Identified Medical Decision Maker Class : mum Chief Complaint : Pt co generalized chest pain that is shooting across chest that began x 2 hours ago while laying down in bed. pt is calm alert skinpwd. Pt given 324mg aspirin, 4 mg zofran, and x 1 SL Nitro with some relief. By EMS Information Obtained From : Patient Primary Language : Yi Preferred Communication Mode : Verbal Communication Barrier : None Head Of Marketing Analytics Needed : No Martita Skinner RN-PATIENT CARE BEDSIDE NON-EXEMPT - 07/13/2021 14:31 EST Fall Risk Scales ABCs Fall Injury Risk Identification : None HARRISON Hx Falls Immediate/Within 3 Months : No Harrison Secondary Diagnosis : Yes HARRISON Use of Ambulatory Aid : None HARRISON IV Therapy or IV Access : Yes Harrison Gait/Transferring : Normal, bedrest, immobile Harrison Mental Status : Oriented to own ability Harrison Fall Risk Score : 35 HARRISON Fall Scale Risk Level : 25-45 Medium Risk [place] Fall Interventions : Adequate lighting, Assistive devices within reach, Bed in low position, Call device within reach, Fall prevention handout/education per facility policy, Frequent orientation to call device, Frequent orientation to surroundings, Hourly comfort/safety rounds, Non-slip footwear, Personal items within reach, Reinforced to call for assistance before getting out of bed, Room free of clutter/spills, Upper side-rails up, Wheels locked, Wires/Cords secured Martita Skinner RN-PATIENT CARE BEDSIDE NON-EXEMPT - 07/13/2021 14:31 EST Health Histories Smoking Status : 4 or less cigarettes(less than 1/4 pack)/day in last 30 days Smokeless Tobacco Status : Never Desires Tobacco Cessation Medication : No Reason for No Tobacco Cessation Medication : Refuses FDA approved medications Martita Skinner RN-PATIENT CARE BEDSIDE NON-EXEMPT - 07/13/2021 14:31 EST Social History (As Of: 07/13/2021 14:49:55 EST) Tobacco: 4 or less cigarettes(less than [...] 05/24/2018 10:39:04 EST by Breanna Ivey RN) Total Drinks/Week: 2. Date/Time of Last Drink: 1 week ago. Alcohol Use Frequency Monthly. (Last Updated: 07/13/2021 14:43:49 EST by Martita Skinner RN-PATIENT CARE BEDSIDE NON-EXEMPT) Substance Abuse: Drug Use Hx: No. Use in Last 12 Months: No. (Last Updated: 07/26/2015 22:29:17 EDT by ERICKA ISSA RN) Drug Use Hx: No. Use in Last 12 Months: No. (Last Updated: 05/24/2018 10:39:04 EST by Breanna Ivey RN) Nutrition/Health: Regular (Last Updated: 05/24/2018 10:39:04 EST by Breanna Ivey RN) Height and Weight, Clinical Dosing Height Source : Measured Height Entry Format : [place] Height, Feet : 5 ft(Converted to: 152 cm, 60 Inch) Height, Inches : 5 Inch(Converted to: 0 ft 5 Inch, 12.70 cm) Clinical Height : 165.1 cm Weight Source : Standing scale Weight Entry Format : [place] Clinical Dosing Weight : 76.36 kg Weight, Pounds : 168 lb Body Surface Area (BSA) : 1.84 m2 Body Mass Index : 28 kg/m2 (HI) [place] Body Weight : 57 kg Martita Skinner RN-PATIENT CARE BEDSIDE NON-EXEMPT - 07/13/2021 14:31 EST Infectious Disease History Does patient have symptoms of COVID-19? : No Has the Patient Been Tested for COVID-19 in the last 14 days? : No, Patient stated Does the Patient state known exposure to a COVID-19 positive case in the last 14 days? : No Patient Vaccinated for COVID-19 : Fully vaccinated Martita Skinner RN-PATIENT CARE BEDSIDE NON-EXEMPT - 07/13/2021 14:31 EST Infectious Disease Risk Screening Grid Cough < 2 wks of unknown origin : NO Cough > 2 weeks : NO Blood in Sputum : NO Fever or self-reported Fever : NO Rash of unknown origin : NO Headache : NO Stiff neck : NO Night Sweats : NO Unexplained Weight Loss : NO Diarrhea (3 episode per day) : NO Martita Skinner RN-PATIENT CARE [facility] NON-EXEMPT - 07/13/2021 14:31 EST Physical contact outside [place] in the last 30 days : No Hospitalized in Foreign Country : No Infectious Disease History : Chicken pox/Shingles, Herpes, Influenza, Mononucleosis INF Disease TB Screening Calc : 0 INF Disease Recent Travel Calc : 0 Martita Skinner RN-PATIENT CARE [facility] NON-EXEMPT - 07/13/2021 14:31 EST Influenza Vaccine Asmt, Adult Previous Vaccines from Immunization Schedule : No qualifying data available. Influenza Immunization, Current Season : Yes Martita Skinner RN-PATIENT CARE [facility] NON-EXEMPT - 07/13/2021 14:31 EST Pneumococcal Vaccine Previous Vaccines from Immunization Schedule : No qualifying data available. Pneumonia Immunization Received : No Pneumococcal Risk Assessment < Age 65 : None Martita Skinner RN-PATIENT CARE [facility] NON-EXEMPT - 07/13/2021 14:31 EST Order Details Order Detail : 0 IV Order Detail : 1 Oxygen Order Detail : 0 Nurse Collect Order Detail : 0 Central Line Order Detail : No Room Service : Not Appropriate Patient Needs Meds Crushed/Liquid : No Martita Skinner RN-PATIENT CARE [facility] NON-EXEMPT - 07/13/2021 14:31 EST Nutrition History Feeding Ability : Independent Adaptive Feeding Equipment : None Eating Poorly Due to Decreased Appetite : No Unplanned Weight Loss in Past 3-6 Months : No Malnutrition Screening Tool Total(mal) : 0 Malnutrition Screening Tool Risk Level : Patient not at risk Martita Skinner RN-PATIENT CARE [facility] NON-EXEMPT - 07/13/2021 14:31 EST [place] Suicide Severity Rating Scale (C-SSRS) CSSRS Past Month Wish to be : No CSSRS Past Month Suicidal Thoughts : No CSSRS Lifetime Suicide Behavior : No Suicide Severity Rating Score : 0 Suicide Severity Rating : No Additional Care Required at this time Martita Skinner RN-PATIENT CARE [facility] NON-EXEMPT - 07/13/2021 14:31 EST Psychosocial History Does Someone Depend on You for Care? : No Do You Have a History of the Following? : Anxiety Currently in Unsafe Situation : No Martita Skinner RN-PATIENT CARE BEDSIDE NON-EXEMPT - 07/13/2021 14:31 EST Sleep Apnea Risk Assmt Hx of Obstructive Sleep Apnea Diagnosis : No Snore Loudly : Yes Tired, Fatigued, or Sleepy During Day : Yes Observed Stopping Breathing During Sleep : No Have/Are Being Treated for Hypertension : Yes BMI Greater Than 35 kg/m2 : No Age over 50 Years Old : No Neck Circumference Greater Than 40 cm : No Gender Male : No STOP-BANG Sleep Apnea Risk Level Score : 3 Martita Skinner RN-PATIENT CARE BEDSIDE NON-EXEMPT - 07/13/2021 14:31 EST Valuables and Belongings Valuables and Belongings : Comfort items Comfort Items : [place] Comfort Items Disposition : With patient Martita Skinner RN-PATIENT CARE BEDSIDE NON-EXEMPT - 07/13/2021 14:31 EST Electronically signed by [facility] Conversion Tour Conductor Cerner at 08/31/2022 5:00 PM CDT documented in this encounter Plan of Treatment Not on file documented as of this encounter Visit Diagnoses Not on filedocumented in this encounter Care Teams Senior Landscape Architect Relationship Specialty Start Date End Date Alan Beyer MD [address] [place] [address] PCP - General Family Medicine 06/08/23 documented as of this encounter
--- OUTSIDE RECORDS SUMMARY | 2024-11-05 10:17 | XMS_ITS | Encounter Summary ---
Author Organization [employer] Address [address] [place] [address] Care Team Providers Care Personal Computer Specialist Name Role Phone Alan Beyer MD Primary Care Provider [phone] Encounter Details Date Type Department Care Team (Late st Contact Info) Description 03/16/2020 Transcribed Document [facility] [place] [facility] [address] ProviderJessenia MD [address] [place], [place] [address] Social History Tobacco Use Types Packs/Day Years Used Date Smoking Tobacco: Never Assessed Comments Unknown Sex and Gender Information Value Date Recorded Sex Assigned at Not on file Legal Sex Female 4:28 PM CDT Gender Identity Not on file Sexual Orientation Not on file documented as of this encounter Miscellaneous Notes * Cerner Conversion Note - Jessenia Alvarez MD - 03/16/2020 3:13 PM ROLLOUT MANAGER Patient: CHARLINE BOND Age: 39 years Sex: Female : 1980 Associated Diagnoses: Nausea vomiting and diarrhea; Mild dehydration Author: GALILEA HANNAH PA-UNK Basic Information Time seen: Date & time 03/16/2020 15:00:00. History source: Patient. Arrival mode: Private vehicle. History limitation: None. Additional information: Chief Complaint from Nursing Triage Note : Chief Complaint 03/16/2020 13:29 EST Chief Complaint Pt c/o n/v/d that started Sunday, sent by PCP, denes abd pain. . History of Present Illness The patient presents with nausea, vomiting, PT PRESENTS HERE WITH 3 DAY HX OF N/V/D . SEEN BY [facility]D TE[facility] AND TOLD TO COME IN FOR FLUIDS AND EVALUATION. PT DENIES ABD PAIN. JUST FEELS WEAK, TIRED AND MUSCLE CRAMPING GENERALIZED. NO COUGH NO COVID CONCERN. and not abdominal cramping. The onset was 3 days ago. The course/duration of symptoms is fluctuating in intensity. The character of symptoms is clear and dry heaves, not bloody, not bilious, not yellow, not coffee ground, not brown and not feculent. The degree at present is minimal. There are exacerbating factors including eating and drinking. There are relieving factors including rest and remaining NPO. Risk factors consist of gastroenteritis exposure, not diabetes mellitus, not coronary artery disease, not alcohol abuse, not contaminated food - water, not recent surgery, not recent chemotherapy, not , not recent antibiotic use and no recent travel. Therapy today: doctor's office visit. Associated symptoms: diarrhea, fever, dizziness, denies abdominal pain, denies chills, denies chest pain, denies shortness of breath, denies headache, denies back pain and denies blood in stool. Additional history: none. Review of Systems Constitutional symptoms: Fever, weakness, fatigue, decreased activity. Skin symptoms: No rash, Respiratory symptoms: No shortness of breath, no cough. Cardiovascular symptoms: Tachycardia, no chest pain, no palpitations. Gastrointestinal symptoms: Nausea, vomiting, diarrhea, No abdominal pain, Genitourinary symptoms: No dysuria, Psychiatric symptoms: No anxiety, no depression. Hematologic/Lymphatic symptoms: Bleeding tendency negative, bruising tendency negative. Additional review of systems information: All other [...] Toradol- No reactions were documented.. Medications: (Selected) Inpatient Medications Ordered Sodium Chloride 0.9% bolus: 1,000 mL, 1,000 mL/Hr, IV Piggyback, 1-Time promethazine: 12.5 mg, IV Push, 1-Time Documented Medications Documented Karine: Oral, Daily, 0 Refill(s) Premarin: Vaginal, Weekly, cream, 0 Refill(s) Robaxin-750 oral tablet: 1 Tab, Oral, Daily, 42 Tab, 0 Refill(s) Valtrex: 500 mg, Oral, Daily, fever blister, 0 Refill(s) ibuprofen: 400 mg, Oral, Q8H, PRN: as needed for pain, 0 Refill(s) . Menstrual history: Per nurse's notes. Past Medical/ Family/ Social History Surgical history: Clavicle ([id number]). Tympanostomy ([id number]). Adenoids ([id number]). shoulder surgery. Gallbladder absent ([id number]). Tubal ligation ([id number]). Hysterectomy ([id number]).. Family history: Heart attack Father Sister Coronary heart disease Father Sister . Social history: Social & Psychosocial Habits Alcohol 07/26/2015 Alcohol Use History, Social Habits No 05/24/2018 Alcohol Use History, Social Habits No Nutrition/Health 05/24/2018 Type of diet: Regular Substance Abuse 07/26/2015 Recreational Drug Use History No Recreational Drug Use Last 12 Months No 05/24/2018 Recreational Drug Use History No Recreational Drug Use Last 12 Months No Tobacco 12/16/2017 Smoking Status 10 or more cigarettes (1/ Smokeless Tobacco Status Never 05/24/2018 Smoking Status 10 or more cigarettes (1/ Smokeless Tobacco Status Refused tobacco status sc Smokeless Tobacco Use History None Years of Tobacco Use 17 . Problem list: Active Problems (6) Anxiety Endometriosis, vagina Kidney stones Migraine S/P hysterectomy Shoulder pain, left . Physical Examination Vital Signs Vital Signs/Vital Measures 03/16/2020 13:29 EST Systolic Blood Pressure 139 mmHg Diastolic Blood Pressure 90 mmHg Temperature Source Temporal artery scanning Temperature Mode Fahrenheit Temperature, Fahrenheit 97.0 Deg F Clinical Temperature, C 36.1 Deg C Peripheral Pulse Rate 102 bpm HI Respiratory Rate 18 Breaths/Min Oxygen Saturation 99 % Oxygen Therapy Mode Room air . Oxygen Saturation 03/16/2020 13:29 EST Oxygen Saturation 99 % . General: Alert, no acute distress. Skin: Warm, dry, pink, intact, no pallor, no rash, normal for ethnicity. Eye: Normal conjunctiva. Ears, nose, mouth and throat: M MBR DRY. Neck: Supple. Cardiovascular: Regular rate and rhythm, No murmur, Normal peripheral perfusion. Gastrointestinal: Soft, Trauma, no abdominal distention, not Obese, Tenderness: Negative, Guarding: Negative, Rebound: Negative, Bowel sounds: Normal, Organomegaly: Negative, Mass: Negative, Signs: McBurney's negative, Selby's negative, Rovsing's negative. Back: Normal range of motion. Musculoskeletal: Normal ROM. Neurological: No focal neurological deficit observed, normal sensory observed, normal motor observed, normal speech observed, normal coordination observed. Lymphatics: No lymphadenopathy. Psychiatric: Cooperative, appropriate mood & affect, normal judgment, non-suicidal. Medical Decision Making Differential Diagnosis: Nausea, vomiting, gastroenteritis, diarrhea, electrolyte abnormality, viral syndrome, not abdominal pain. Reexamination/ Reevaluation Vital signs pt tells me late that she would like a covid test. is needing more phenergan but states does not want 2nd liter of luid and I could just call her result of the covid test Interventions: by 1700 pt feeling better and ready for dc home. . Impression and Plan Diagnosis Nausea vomiting and diarrhea - Discharge, Emergency medicine, Medical Mild dehydration - Discharge, Emergency medicine, Medical Plan Condition: Improved, Stable. Disposition: Discharged Admit/Transfer/Discharge: Discharge (Order): Start: 03/16/2020 16:58 EST, Discharge to: Home . Prescriptions: Prescription Cash Applications Specialist Pharmacy: [facility] 4 mg oral tablet, disintegrating (Prescribe): 1 Tab, Oral, Q4H, for 3 Day(s), PRN: Nausea/Vomiting, 15 Tab, 0 Refill(s) promethazine 25 mg oral tablet (Prescribe): 1 Tab, Oral, Q4H, for 3 Day(s), can make you sleepy, PRN: as needed for nausea/vomiting, 15 Tab, 0 Refill(s) . Patient was given the following educational materials: Food Choices to Help Relieve Diarrhea, Adult, Diarrhea, Adult, [id number], Nausea and Vomiting, Adult, [id number], Dehydration, Adult, [id number], COVID-19, COVID-19 Frequently Asked Questions, COVID-19: How to Protect Yourself and Others - CDC, Limitations: Limited activity. Follow up with: Use the phenergan and / or zofran for any nausea / vomiting. get some over the counter immodium/kaopectate for the diarrhea. increase oral fluids Within 2 to 3 days; ANSLEY ANAYELI Within 2 to 3 days follow up with this md to see you for the nausea vomiting and diarrhea; YOU WILL NEED TO SELF ISOLATE FOR 14 DAY IF WE CALL TO TELL YOU THE COVID TEST IS POSITIVE. SEE COVID INFORMATION Within 2 to 3 days, Counseled: Patient, Regarding diagnosis, Regarding diagnostic results, Regarding treatment plan, Regarding prescription, Patient indicated understanding of instructions. Electronically signed by Jannette, [facility] Conversion Guillotine Trimmer Cerner at 08/31/2022 5:14 PM CDT documented in this encounter Plan of Treatment Not on file documented as of this encounter Visit Diagnoses Not on filedocumented in this encounter Care Teams Personal Computer Specialist Relationship Specialty Start Date End Date Alan Beyer MD [address] [place] [address] PCP - General Family Medicine 06/08/23 documented as of this encounter
--- OUTSIDE RECORDS SUMMARY | 2024-11-05 10:17 | XMS_ITS | Encounter Summary ---
Author Organization [employer] Address [address] [place] [address] Care Team Providers Care Timber Faller Name Role Phone Alan Beyer MD Primary Care Provider [phone] Encounter Details Date Type Department Care Team (Late st Contact Info) Description 03/30/2021 Transcribed Document [facility] [place] [facility] [place] [address] ProviderJessenia MD [address] [place] [address] Social History Tobacco Use Types Packs/Day Years Used Date Smoking Tobacco: Never Assessed Comments Unknown Sex and Gender Information Value Date Recorded Sex Assigned at Not on file Legal Sex Female 4:28 PM CDT Gender Identity Not on file Sexual Orientation Not on file documented as of this encounter Miscellaneous Notes * Cerner Conversion Note - Jessenia ProviderMD - 03/30/2021 1:19 AM MAILROOM COURIER [place] Violence Assessment Entered On: 03/30/2021 4:35 EST Performed On: 03/30/2021 1:30 EST by Mp Price, Rn Broset Violence Assessment Broset Violence Checklist of Symptoms : None Broset Violence Symptoms Subtotal : 0 Broset Violence Symptoms Indicator : Low risk (0) Mp Price, Rn - 03/30/2021 4:35 EST Electronically signed by Jannette [facility] Conversion Drywall Application Supervisor Cerner at 08/31/2022 4:57 PM CDT documented in this encounter Plan of Treatment Not on file documented as of this encounter Visit Diagnoses Not on filedocumented in this encounter Care Teams Timber Faller Relationship Specialty Start Date End Date Alan Beyer MD [address] [place] [id number] PCP - General Family Medicine 06/08/23 documented as of this encounter
--- OUTSIDE RECORDS SUMMARY | 2024-11-05 10:17 | XMS_ITS | Encounter Summary ---
Author Organization [employer] Address [address] [place] [address] Care Team Providers Care Volunteer Coordinator Name Role Phone Alan Beyer MD Primary Care Provider [phone] Encounter Details Date Type Department Care Team (Late st Contact Info) Description 07/13/2021 Transcribed Document [facility] [place] [facility] [place] [address] ProviderJessenia MD [address] [place], [place] [address] Social History Tobacco Use Types Packs/Day Years Used Date Smoking Tobacco: Never Assessed Comments Unknown Sex and Gender Information Value Date Recorded Sex Assigned at Not on file Legal Sex Female 4:28 PM CDT Gender Identity Not on file Sexual Orientation Not on file documented as of this encounter Miscellaneous Notes * Cerner Conversion Note - Jessenia Alvarez MD - 07/13/2021 5:16 AM BOX STAMPER Pain Assessment Entered On: 07/13/2021 6:52 EST Performed On: 07/13/2021 6:52 EST by Regina Saldana RN-PATIENT CARE BEDSIDE NON-EXEMPT Intervention Information: HYDROmorphone Performed by Regina Saldana RN-PATIENT CARE BEDSIDE NON-EXEMPT on 07/13/2021 05:29:00 EST HYDROmorphone,1mg IV Push,Peripheral Line 1 Pain Assessment Pain Assessment : Follow-up assessment Pain Scale Used : 0-10 Scale Regina Saldana RN-PATIENT CARE BEDSIDE NON-EXEMPT - 07/13/2021 6:52 EST Pain Scale Intensity : 4 Regina Saldana, ELVER-PATIENT CARE BEDSIDE NON-EXEMPT - 07/13/2021 6:52 EST Image 4 - Images currently included in the form version of this document have not been included in the text rendition version of the form. Electronically signed by Jannette [facility] Conversion [employer] Foreign Language Tutor Cerner at 08/31/2022 5:10 PM CDT documented in this encounter Plan of Treatment Not on file documented as of this encounter Visit Diagnoses Not on filedocumented in this encounter Care Teams Volunteer Coordinator Relationship Specialty Start Date End Date Alan Beyer MD [address] [place] [address] PCP - General Family Medicine 06/08/23 documented as of this encounter
--- OUTSIDE RECORDS SUMMARY | 2024-11-05 10:17 | XMS_ITS | Encounter Summary ---
Author Organization [employer] Address [address] [place] [address] Care Team Providers Care Boatswain'S Mate Name Role Phone Alan Beyer MD Primary Care Provider [phone] Encounter Details Date Type Department Care Team (Late st Contact Info) Description 03/30/2021 Transcribed Document [facility] [place] Family Medicine [address] [place] [address] ProviderJessenia MD [address] [place] [address] Social History Tobacco Use Types [...] - Jessenia ProviderMD - 03/30/2021 1:19 AM GREEN PRIZE PACKER ED Assessment Entered On: 03/30/2021 4:55 EST Performed On: 03/30/2021 1:30 EST by Mp Price, title vehicle service attendant Quick Look Assessment Level of Consciousness : Alert, Awake Affect/Behavior : Appropriate, Calm, Cooperative Orientation : Oriented x 4 Skin Temperature : Warm Skin Description : Normal for ethnicity Mp Price, Rn - 03/30/2021 4:54 EST ED General-Functional Assess Preferred Communication Mode : Verbal Communication Barrier : None Primary Language : Slovak Any Spiritual/Cultural Needs or Requests : No Currently in Unsafe Situation : No Mp Price, Rn - 03/30/2021 4:54 EST Social Habits Smoking Status : Never (less than 100 in lifetime; none in last 30 days) Smokeless Tobacco Status : Never Desires Tobacco Cessation Calc : 0 Mp Price Rn - 03/30/2021 4:54 EST Social History (As Of: 03/30/2021 04:55:35 EST) Tobacco: 4 or less cigarettes(less than [...] 05/24/2018 10:39:04 EST by Breanna Ivey RN) Cardiovascular ASMT, ED Cardiovascular Assessment WDL : WDL Cardiovascular Symptoms : Chest pain at rest Mp Price Rn - 03/30/2021 4:54 EST Respiratory Respiratory Assessment WDL : WDL Mp Price Rn - 03/30/2021 4:54 EST Neurologic ASMT, ED Neurologic Assessment WDL : WDL with exceptions Neurological Symptoms : Dizziness, Headache Mp Price Rn - 03/30/2021 4:54 EST Electronically signed by [email or web address], [facility] Conversion Computer Programmer Chief Cerner at 08/31/2022 5:28 PM CDT documented in this encounter Plan of Treatment Not on file documented as of this encounter Visit Diagnoses Not on filedocumented in this encounter Care Teams Boatswain'S Mate Relationship Specialty Start Date End Date Alan Beyer MD [address] [place] [address] PCP - General Family Medicine 06/08/23 documented as of this encounter
--- OUTSIDE RECORDS SUMMARY | 2024-11-05 10:17 | XMS_ITS | Encounter Summary ---
Author Organization [employer] Address [address] [place] [address] Care Team Providers Care Supervisor Extrusion Name Role Phone Alan Beyer MD Primary Care Provider [phone] Encounter Details Date Type Department Care Team (Late st Contact Info) Description 03/30/2021 Transcribed Document [facility] [place] Family Medicine [facility] [address] ProviderJessenia MD [address] [place], [place] [id number] Social History Tobacco Use Types Packs/Day Years Used Date Smoking Tobacco: Never Assessed Comments Unknown Sex and Gender Information Value Date Recorded Sex Assigned at Not on file Legal Sex Female 4:28 PM CDT Gender Identity Not on file Sexual Orientation Not on file documented as of this encounter Miscellaneous Notes * Cerner Conversion Note - Jessenia Alvarez MD - 03/30/2021 4:31 AM WINDER FIXER Electronically signed by Jannette [facility] Conversion Sales Service Professional Cerner at 08/31/2022 5:23 PM CDT documented in this encounter Plan of Treatment Not on file documented as of this encounter Visit Diagnoses Not on filedocumented in this encounter Care Teams Supervisor Extrusion Relationship Specialty Start Date End Date Alan Beyer MD [address] [place] [address] PCP - General Family Medicine 06/08/23 documented as of this encounter
--- OUTSIDE RECORDS SUMMARY | 2024-11-05 10:17 | XMS_ITS | Encounter Summary ---
Author Organization [employer] Address [address] [place] [address] Care Team Providers Care Felt Pad Cutter Name Role Phone Alan Beyer MD Primary Care Provider [phone] Encounter Details Date Type Department Care Team (Late st Contact Info) Description 05/03/2020 Transcribed Document [facility] [place] Family Medicine [facility] [address] ProviderJessenia MD [address] [place], [place] [id number] Social History Tobacco Use Types Packs/Day Years Used Date Smoking Tobacco: Never Assessed Comments Unknown Sex and Gender Information Value Date Recorded Sex Assigned at Not on file Legal Sex Female 4:28 PM CDT Gender Identity Not on file Sexual Orientation Not on file documented as of this encounter Miscellaneous Notes * Cerner Conversion Note - Jessenia ProviderMD - 05/03/2020 4:50 PM NATURAL DEVELOPER Electronically signed by Jannette [facility] Conversion Membership Administrator Cerner at 08/31/2022 5:16 PM CDT documented in this encounter Plan of Treatment Not on file documented as of this encounter Visit Diagnoses Not on filedocumented in this encounter Care Teams Felt Pad Cutter Relationship Specialty Start Date End Date Alan Beyer MD [address] [place] [address] PCP - General Family Medicine 06/08/23 documented as of this encounter
--- OUTSIDE RECORDS SUMMARY | 2024-11-05 10:17 | XMS_ITS | Encounter Summary ---
Author Organization [employer] Address [address] [place] [address] Care Team Providers Care Brine Supervisor Name Role Phone Alan Beyer MD Primary Care Provider [phone] Encounter Details Date Type Department Care Team (Late st Contact Info) Description 05/31/2021 Transcribed Document [facility] [place] Family Medicine [facility] [place] [address] ProviderJessenia MD [address] [place], [place] [id number] Social History Tobacco Use Types Packs/Day Years Used Date Smoking Tobacco: Never Assessed Comments Unknown Sex and Gender Information Value Date Recorded Sex Assigned at Not on file Legal Sex Female 4:28 PM CDT Gender Identity Not on file Sexual Orientation Not on file documented as of this encounter Miscellaneous Notes * Cerner Conversion Note - Jessenia Alvarez MD - 05/31/2021 12:13 AM BULB PACKER ED Discharge Entered On: 05/31/2021 0:13 EST Performed On: 05/31/2021 0:13 EST by VANDANA KHALIL RN-PATIENT CARE BEDSIDE NON-EXEMPT Discharge Process Patient Disposition : Discharge Personal Belongings With Patient : Yes Patient Education Completed : Yes Teaching Evaluation : Verbalizes understanding IV Discontinued : Yes Nursing Documentation Completed : Yes VANDANA KHALIL RN-PATIENT CARE BEDSIDE NON-EXEMPT - 05/31/2021 0:13 EST ED Discharge Discharge To : Home with ambulatory/outpatient follow-up Name of Receiving Facility/Provider : OBGYN Mode Of Departure : Ambulatory Accompanied By : Friend Discharge Instructions Reviewed With, Opportunity For Questions Given : Patient Prescriptions Given to Patient : Electronically sent Number of Prescriptions Given : 2 VANDANA KHALIL, ELVER-PATIENT CARE BEDSIDE NON-EXEMPT - 05/31/2021 0:13 EST Electronically signed by Jannette [facility] Conversion Regional Climate Change Analyst Cerner at 08/31/2022 5:05 PM CDT documented in this encounter Plan of Treatment Not on file documented as of this encounter Visit Diagnoses Not on filedocumented in this encounter Care Teams Brine Supervisor Relationship Specialty Start Date End Date Alan Beyer MD [address] [place] [address] PCP - General Family Medicine 06/08/23 documented as of this encounter
--- OUTSIDE RECORDS SUMMARY | 2024-11-05 10:17 | XMS_ITS | Encounter Summary ---
Author Organization [employer] Address [address] [place] [address] Care Team Providers Care Flower Shop Laborer/Designer Name Role Phone Alan Beyer MD Primary Care Provider [phone] Encounter Details Date Type Department Care Team (Late st Contact Info) Description 05/30/2021 Transcribed Document [facility] [place] [facility] Medicine [place] [address] ProviderJessenia MD [address] [place] [address] Social History Tobacco Use Types Packs/Day Years Used Date Smoking Tobacco: Never Assessed Comments Unknown Sex and Gender Information Value Date Recorded Sex Assigned at Not on file Legal Sex Female 4:28 PM CDT Gender Identity Not on file Sexual Orientation Not on file documented as of this encounter Miscellaneous Notes * Cerner Conversion Note - Jessenia Alvarez MD - 05/30/2021 11:55 PM LAND USE PLANNER [place] [id number] CHARLINE BOND :1980 Visit Time:05/30/2021 Your Visit Summary Your Care Team Primary Provider: GROVER MEZA Secondary Provider: Your Diagnosis Abdominal pain Hypokalemia Nasal congestion Right ovarian cyst Medical Information You may obtain a copy [...] do next Follow-Up Appointments Follow Up with MICHAEL HOSKINS When Within 2 to 3 days Comments Call your CRIMINAL INVESTIGATOR in the morning for follow-up appointment Return [...] prescribe it I hope you feel better soon Where: [address] [place] [phone] Business (1) Allergies Bactrim acetaminophen-oxyCODONE clindamycin Toradol baclofen doxycycline escitalopram fentaNYL lidocaine topical 2% gel meperidine morphine penicillin (Hives) tetanus immune globulin Immunizations This Visit No Immunizations Found Medications What How Much When Instructions Next Dose acetaminophen-hydrocodone (Basalt 5 mg-325 mg oral tablet) 1 Tablet(s) Oral Every 6 Hours as needed for for pain Duration: 3 Day(s) constipating, addictive, no driving Pickup at [place] [address] montelukast (Singulair 10 mg oral tablet) 1 Tablet(s) Oral Every Evening Pickup at [place] [address] conjugated estrogens (Premarin) Vaginal Weekly cream fexofenadine (Karine) Oral Every Day ibuprofen 400 Milligram(s) Oral Every 8 Hours as needed for as needed for pain methocarbamol (Robaxin-750 oral tablet) 1 Tablet(s) Oral Every Day predniSONE (predniSONE 10 mg oral tablet) See instructions Six-day tapering Dosepak valACYclovir (Valtrex) 500 Milligram(s) Oral Every Day fever blister Pharmacy Information [facility] [address]: [address] [place], [place] [id number] [phone] The home medications listed are only as [...] This Visit (last charted value for your 05/30/2021 visit) Hematology 05/30/2021 7:28 PM WBC: 7.7 K/uL -- Normal range between ( 3.9 and 10.0 ) RBC: 3.63 Million/uL -- Normal range between ( 3.93 and 5.22 ) Hct: 38.6 % -- Normal range between ( 34.1 and 44.9 ) Hgb: 12.5 Gram/dL -- Normal range between ( 11.2 and 15.7 ) Platelet Count: 189 K/uL -- Normal range between ( 163 and 369 ) MCH: 34.4 pg -- Normal range between ( 25.6 and 32.2 ) MCHC: 32.4 Gram/dL -- Normal range between ( 32.3 and 36.5 ) MCV: 106.3 fL -- Normal range between ( 79.0 and 94.8 ) Slide Review: No Eos %: 0.8 % -- Normal range between ( 1.0 and 7.0 ) Garvin #: 0.47 K/uL -- Normal range between ( 0.24 and 0.82 ) Eos #: 0.06 K/uL -- Normal range between ( 0.04 and 0.54 ) Garvin %: 6.1 % -- Normal range between ( 4.7 and 12.5 ) Baso %: 0.3 % -- Normal range between ( 0.0 and 1.0 ) Baso #: 0.02 K/uL -- Normal range between ( 0.01 and 0.08 ) RDW: 11.8 % -- Normal range between ( 11.6 and 14.4 ) Neut %: 51.2 % -- Normal range between ( 34.0 and 71.0 ) Neut #: 3.94 K/uL -- Normal range between ( 1.56 and 6.13 ) Lymph %: 41.3 % -- Normal range between ( 19.3 and 53.0 ) Lymph #: 3.17 K/uL -- Normal range between ( 1.18 and 3.74 ) MPV: 10.1 fL -- Normal range between ( 9.4 and 12.4 ) IG#: 0 x10(3)/uL IG%: 0 % -- Normal range between ( 0 and 1 ) Urinalysis 05/30/2021 7:28 PM Urine Nitrite: Negative Urine Leukocyte Esterase: Negative Urine Appearance: Clear Urine Glucose Dipstick: Negative Urine Blood Dipstick: Negative Urine Urobilinogen Dipstick: 0.2 EU/dL -- Normal range between ( 0.2 and 1.0 ) Urine Protein Dipstick: Negative Urine Color: Yellow Urine Ketones Dipstick: Negative Urine pH Dipstick: 5.5 -- Normal range between ( 6.0 and 8.0 ) Urine Bilirubin Dipstick: Negative Urine Specific Tiro: 1.016 -- Normal range between ( 1.005 and 1.030 ) Urine Type.: U CleanCatch Urine Culture if Indicated: Not Indicated General Chemistry 05/30/2021 7:28 PM Creatinine Level: 0.80 mg/dL -- Normal range between ( 0.55 and 1.02 ) Sodium Level: 142 mmol/L -- Normal range between ( 136 and 146 ) Potassium Level: 3.2 mmol/L -- Normal range between ( 3.5 and 5.1 ) Chloride Level: 110 mmol/L -- Normal range between ( 102 and 112 ) Carbon Dioxide Level: 27 mmol/L -- Normal range between ( 21 and 32 ) Anion Gap: 8 -- Normal range between ( 9 and 20 ) Bilirubin Total: 0.1 mg/dL -- Normal range between ( 0.2 and 1.3 ) A/G Ratio: 0.9 -- Normal range between ( 1.1 and 2.5 ) ALT: 18 Units/Liter -- Normal range between ( 12 and 78 ) AST: 13 Units/Liter -- Normal range between ( 5 and 37 ) Globulin: 4.0 Gram/dL -- Normal range between ( 1.5 and 4.5 ) Alk Phos: 83 Units/Liter -- Normal range between ( 27 and 136 ) Bun/Creatinine: 16.2 -- Normal range between ( 8.0 and 20.0 ) Calcium Level: 8.8 mg/dL -- Normal range between ( 8.5 and 10.1 ) eGFR : >60 mL/min/1.73m2 eGFR NonAfrican: >60 mL/min/1.73m2 Glucose Level: 91 mg/dL -- Normal range between ( 74 and 106 ) Magnesium Level: 1.8 mg/dL -- Normal range between ( 1.5 and 2.4 ) Blood Urea Nitrogen: 13 mg/dL -- Normal range between ( 7 and 22 ) Protein Total: 7.6 Gram/dL -- Normal range between ( 6.4 and 8.2 ) Albumin Level: 3.6 Gram/dL -- Normal range between ( 3.4 and 5.0 ) Endocrinology 05/30/2021 7:28 PM HCG Urine Qualitative: Negative Computed Tomography 05/30/2021 10:[address] Abdomen Pelvis W: CT Abdomen Pelvis W Education [employer] Allergic Rhinitis, Adult Allergic rhinitis is an allergic reaction that affects the mucous membrane inside the nose. The mucous membrane is the tissue that produces mucus. There are two types of allergic rhinitis: ??? Seasonal. This type is also called hay fever and happens only during certain seasons. ??? Perennial. This type can happen at any time of the year. Allergic rhinitis cannot be spread from person to person. This condition can be mild, moderate, or severe. It can develop at any age and may be outgrown. What are the causes? This condition is caused by allergens. These are things that can cause an allergic reaction. Allergens may differ for seasonal allergic rhinitis and perennial allergic rhinitis. ??? Seasonal allergic rhinitis is triggered by pollen. Pollen can come from grasses, trees, and weeds. ??? Perennial allergic rhinitis may be triggered by: ? Dust mites. ? Proteins in a pet's urine, saliva, or dander. Dander is skin cells from a pet. ? Smoke, mold, or car fumes. What increases the risk? You are more likely to develop this condition if you have a family history of allergies or other conditions related to allergies, including: ??? Allergic conjunctivitis. This is inflammation of parts of the eyes and eyelids. ??? Asthma. This condition affects the lungs and makes it hard to breathe. ??? Atopic dermatitis or eczema. This is mcfp (chronic) inflammation of the skin. ??? Food allergies. What are the signs or symptoms? Symptoms of this condition include: ??? Sneezing or coughing. ??? A stuffy nose (nasal congestion), itchy nose, or nasal discharge. ??? Itchy eyes and tearing of the eyes. ??? A feeling of mucus dripping down the back of your throat (postnasal drip). ??? Trouble sleeping. ??? Tiredness or fatigue. ??? Headache. ??? Sore throat. How is this diagnosed? This condition may be diagnosed with your symptoms, medical history, and physical exam. Your health care provider may check for related conditions, such as: ??? Asthma. ??? [place] eye. This is eye inflammation caused by infection (conjunctivitis). ??? Ear infection. ??? Upper respiratory infection. This is an infection in the nose, throat, or upper airways. You may also have tests to find out which allergens trigger your symptoms. These may include skin tests or blood tests. How is this treated? There is no cure for this condition, but treatment can help control symptoms. Treatment may include: ??? Taking medicines that block allergy symptoms, such as corticosteroids and antihistamines. Medicine may be given as a shot, nasal spray, or pill. ??? Avoiding any allergens. ??? Being exposed again and again to tiny amounts of allergens to help you build a defense against allergens (immunotherapy). This is done if other treatments have not helped. It may include: ? Allergy shots. These are injected medicines that have small amounts of allergen in them. ? Sublingual immunotherapy. This involves taking small doses of a medicine with allergen in it under your tongue. If these treatments do not work, your health care provider may prescribe newer, stronger medicines. Follow these instructions at home: Avoiding allergens Find out what you are allergic to and avoid those allergens. These are some things you can do to help avoid allergens: ??? If you have perennial allergies: ? Replace carpet with wood, tile, or vinyl elizabeth. Carpet can trap dander and dust. ? Do not smoke. Do not allow smoking in your home. ? Change your heating and air conditioning filters at least once a month. ??? If you have seasonal allergies, take these steps during allergy season: ? Keep windows closed as much as possible. ? Plan outdoor activities when pollen counts are lowest. Check pollen counts before you plan outdoor activities. ? When coming indoors, change clothing and shower before sitting on furniture or bedding. ??? If you have a pet in the house that produces allergens: ? Keep the pet out of the bedroom. ? Vacuum, sweep, and dust regularly. General instructions ??? Take feiy-rer-rkvsqmw and prescription medicines only as told by your health care provider. ??? Drink enough fluid to keep your urine pale yellow. ??? Keep all follow-up visits as told by your health care provider. This is important. Where to find more information ??? [place] [employer]: www.aaaai.org Contact a health care provider if: ??? You have a fever. ??? You develop a cough that does not go away. ??? You make whistling sounds when you breathe (wheeze). ??? Your symptoms slow you down or stop you from doing your normal activities each day. Get help right away if: ??? You have shortness of breath. This symptom may represent a serious problem that is an emergency. Do not wait to see if the symptom will go away. Get medical help right away. Call your local emergency services (911 in the [place] Do not drive yourself to the hospital. Summary ??? Allergic rhinitis may be managed by taking medicines as directed and avoiding allergens. ??? If you have seasonal allergies, keep windows closed as much as possible during allergy season. ??? Contact your health care provider if you develop a fever or a cough that does not go away. This information is not intended to replace advice given to you by your health care provider. Make sure you discuss any questions you have with your health care provider. Document Revised: 06/18/2020 Document Reviewed: 04/27/2020 [employer] Patient Education ?? 2020 [employer]. Ovarian Cyst An ovarian cyst is a fluid-filled sac that forms on an ovary. The ovaries are small organs that produce eggs in women. Various types of cysts can form on the ovaries. Some may cause symptoms and require treatment. Most ovarian cysts go away on their own, are not cancerous (are benign), and do not cause problems. What are the causes? Ovarian cysts may be caused by: ??? Ovarian hyperstimulation syndrome. This is a condition that can develop from taking fertility medicines. It causes multiple large ovarian cysts to form. ??? Polycystic ovarian syndrome (PCOS). This is a common hormonal disorder that can cause ovarian cysts to form, and can cause problems with your period or fertility. ??? The normal menstrual cycle. What increases the risk? The following factors may make you more likely to develop this condition: ??? Being overweight or obese. ??? Taking fertility medicines. ??? Taking certain forms of hormonal control. ??? Smoking. What are the signs or symptoms? Many ovarian cysts do not cause symptoms. If symptoms are present, they may include: ??? Pelvic pain or pressure. ??? Pain in the lower abdomen. ??? Pain during sex. ??? Abdominal swelling. ??? Abnormal menstrual periods. ??? Increasing pain with menstrual periods. How is this diagnosed? These cysts are commonly found during a routine pelvic exam. You may have tests to find out more about the cyst, such as: ??? Ultrasound. ??? CT scan. ??? MRI. ??? Blood tests. How is this treated? Many ovarian cysts go away on their own without treatment. Your health care provider may want to check your cyst regularly for 2???3 months to see if it changes. If you are in menopause, it is especially important to have your cyst monitored closely because menopausal women have a higher rate of ovarian cancer. When treatment is needed, it may include: ??? Medicines to help relieve pain. ??? A procedure to drain the cyst (aspiration). ??? Surgery to remove the whole cyst (cystectomy). ??? Hormone treatment or control pills. These methods are sometimes used to help keep cysts from coming back. ??? Surgery to remove the ovary (oophorectomy). Follow these instructions at home: ??? Take nndm-ion-shhikqg and prescription medicines only as told by your health care provider. ??? Ask your health care provider if any medicine prescribed to you requires you to avoid driving or using machinery. ??? Get regular pelvic exams and Pap tests as often as told by your health care provider. ??? Return to your normal activities as told by your health care provider. Ask your health care provider what activities are safe for you. ??? Do not use any products that contain nicotine or tobacco, such as cigarettes, e-cigarettes, and chewing tobacco. If you need help quitting, ask your health care provider. ??? Keep all follow-up visits. This is important. Contact a health care provider if: ??? Your periods are late, irregular, painful, or they stop. ??? You have pelvic pain that does not go away. ??? You have pressure on your bladder or trouble emptying your bladder completely. ??? You have any of the following: ? A feeling of fullness. ? You are gaining weight or losing weight without changing your exercise and eating habits. ? Pain, swelling, or bloating in the abdomen. ? Loss of appetite. ? Pain and pressure in your back and pelvis. ??? You think you may be . Get help right away if: ??? You have abdominal or pelvic pain that is severe or gets worse. ??? You cannot eat or drink without vomiting. ??? You suddenly develop a fever or chills. ??? Your menstrual period is much heavier than usual. Summary ??? An ovarian cyst is a fluid-filled sac that forms on an ovary. ??? Some ovarian cysts may cause symptoms and require treatment. ??? These cysts are commonly found during a routine pelvic exam. ??? Many ovarian cysts go away on their own without treatment. This information is not intended to replace advice given to you by your health care provider. Make sure you discuss any questions you have with your health care provider. Document Revised: 10/07/2020 Document Reviewed: 10/07/2020 [employer] Patient Education ?? 2020 [employer]. Hypokalemia Hypokalemia means that the amount of potassium in the blood is lower than normal. Potassium is a chemical (electrolyte) that helps regulate the amount of fluid in the body. It also stimulates muscle tightening (contraction) and helps nerves work properly. Normally, most of the body's potassium is inside cells, and only a very small amount is in the blood. Because the amount in the blood is so small, minor changes to potassium levels in the blood can be life-threatening. What are the causes? This condition may be caused by: ??? Antibiotic medicine. ??? Diarrhea or vomiting. Taking too much of a medicine that helps you have a bowel movement (laxative) can cause diarrhea and lead to hypokalemia. ??? Chronic kidney disease (CKD). ??? Medicines that help the body get rid of excess fluid (diuretics). ??? Eating disorders, such as bulimia. ??? Low magnesium levels in the body. ??? Sweating a lot. What are the signs or symptoms? Symptoms of this condition include: ??? Weakness. ??? Constipation. ??? Fatigue. ??? Muscle cramps. ??? Mental confusion. ??? Skipped heartbeats or irregular heartbeat (palpitations). ??? Tingling or numbness. How is this diagnosed? This condition is diagnosed with a blood test. How is this treated? This condition may be treated by: ??? Taking potassium supplements by mouth. ??? Adjusting the medicines that you take. ??? Eating more foods that contain a lot of potassium. If your potassium level is very low, you may need to get potassium through an IV and be monitored in the hospital. Follow these instructions at home: ??? Take ibsw-byd-bhwhqez and prescription medicines only as told by your health care provider. This includes vitamins and supplements. ??? Eat a healthy diet. A healthy diet includes fresh fruits and vegetables, whole grains, healthy fats, and lean proteins. ??? If instructed, eat more foods that contain a lot of potassium. This includes: ? Nuts, such as peanuts and pistachios. ? Seeds, such as sunflower seeds and pumpkin seeds. ? Peas, lentils, and jackson beans. ? Whole grain and bran cereals and breads. ? Fresh fruits and vegetables, such as apricots, avocado, bananas, cantaloupe, kiwi, oranges, tomatoes, asparagus, and potatoes. ? Indianola juice. ? Tomato juice. ? Red meats. ? Yogurt. ??? Keep all follow-up visits as told by your health care provider. This is important. Contact a health care provider if you: ??? Have weakness that gets worse. ??? Feel your heart pounding or racing. ??? Vomit. ??? Have diarrhea. ??? Have diabetes (diabetes mellitus) and you have trouble keeping your blood sugar (glucose) in your target range. Get help right away if you: ??? Have chest pain. ??? Have shortness of breath. ??? Have vomiting or diarrhea that lasts for more than 2 days. ??? Faint. Summary ??? Hypokalemia means that the amount of potassium in the blood is lower than normal. ??? This condition is diagnosed with a blood test. ??? Hypokalemia may be treated by taking potassium supplements, adjusting the medicines that you take, or eating more foods that are high in potassium. ??? If your potassium level is very low, you may need to get potassium through an IV and be monitored in the hospital. This information is not intended to replace advice given to you by your health care provider. Make sure you discuss any questions you have with your health care provider. Document Revised: 12/11/2018 Document Reviewed: 12/11/2018 Else[employer] Patient Education ?? 2020 [employer]. Emergency Awareness and Preventative Care STROKE [...] Assistance with quitting is available by contacting 8-261-ZPNZNOW. This is a free resource providing counseling, support, and referral. Or you may contact your personal physician. [place] [facility]: The National Suicide Prevention Lifeline is a [...] was given the opportunity to ask questions. Patient/Basting Marker Name: Patient/Basting Marker Signature: Relationship to Patient: Clinician/Hospital Basting Marker Signature: Please Provide a Telephone Number Where You Can Be Reached: Is it Permissible To Leave a Message? Date: Electronically signed by Interface, [facility] Conversion System Support Developer Cerner at 08/31/2022 5:05 PM CDT documented in this encounter Plan of Treatment Not on file documented as of this encounter Visit Diagnoses Not on filedocumented in this encounter Care Teams Flower Shop Laborer/Designer Relationship Specialty Start Date End Date Alan Beyer MD [address] [place] [address] PCP - General Family Medicine 06/08/23 documented as of this encounter
--- OUTSIDE RECORDS SUMMARY | 2024-11-05 10:17 | XMS_ITS | Encounter Summary ---
Author Organization [employer] Address [address] [place] [address] Care Team Providers Care Turf Grower Name Role Phone Alan Beyer MD Primary Care Provider [phone] Encounter Details Date Type Department Care Team (Late st Contact Info) Description 05/03/2020 Transcribed Document [facility] [place] [facility] [place] [address] ProviderJessenia MD [address] [place] [address] Social History Tobacco Use Types [...] Jessenia Alvarez MD - 05/03/2020 4:53 PM BODY TECHNICIAN [place] [id number] CHARLINE BOND :1980 Visit Time:05/03/2020 Your Visit [...] Medicines to relieve symptoms. These can include kaxe-eej-jrqgrxp medicine for pain and fever, medicines for [...] these instructions at home: Medicines ??? Take khmm-wqv-pmerlrb and prescription medicines only as told by [...] and water are not available, use hand button breaker. ??? Avoid close contact with friends and [...] 09/08/2016 Document Revised: 04/12/2018 Document Reviewed: 09/08/2016 [employer] Patient Education ?? 2020 [employer]. Emergency Awareness and Preventative Care STROKE is [...] Assistance with quitting is available by contacting 7-449-UYDNNOW. This is a free resource providing counseling, support, and referral. Or you may contact your personal physician. [employer] Suicide Prevention Lifeline: The National Suicide Prevention [...] was given the opportunity to ask questions. Patient/Personnel Quality Assurance Auditor Name: Patient/Personnel Quality Assurance Auditor Signature: Relationship to Patient: Clinician/Hospital Personnel Quality Assurance Auditor Signature: Please Provide a Telephone Number Where You Can Be Reached: Is it Permissible To Leave a Message? Date: Electronically signed by Jannette, [facility] Conversion Guest Service Supervisor Cerner at 08/31/2022 5:03 PM CDT documented in this encounter Plan of Treatment Not on file documented as of this encounter Visit Diagnoses Not on filedocumented in this encounter Care Teams Turf Grower Relationship Specialty Start Date End Date Alan Beyer MD [address] [facility] [place] [address] PCP - General Family Medicine 06/08/23 documented as of this encounter
--- OUTSIDE RECORDS SUMMARY | 2024-11-05 10:17 | XMS_ITS | Encounter Summary ---
Author Organization [employer] Address [address] [place] [address] Care Team Providers Care Rail Walker Name Role Phone Alan Beyer MD Primary Care Provider [phone] Encounter Details Date Type Department Care Team (Late st Contact Info) Description 03/30/2021 Transcribed Document [facility] [place] [facility] [place] [address] ProviderJessenia MD [address] [place] [address] Social History Tobacco Use Types Packs/Day Years Used Date Smoking Tobacco: Never Assessed Comments Unknown Sex and Gender Information Value Date Recorded Sex Assigned at Not on file Legal Sex Female 4:28 PM CDT Gender Identity Not on file Sexual Orientation Not on file documented as of this encounter Miscellaneous Notes * Cerner Conversion Note - Jessenia ProviderMD - 03/30/2021 4:34 AM CRATE LINER [address] [address] Visit Date/Time: 03/30/2021 04:34:37 CHARLINE BOND The above patient was seen in the hospital today and needs to be excused from work/school until Return to Work/School Date:01 April 2021 Electronically signed by Trevon Bhatia Conversion Learning And Development Consultant Cerner at 08/31/2022 5:15 PM CDT documented in this encounter Plan of Treatment Not on file documented as of this encounter Visit Diagnoses Not on filedocumented in this encounter Care Teams Rail Walker Relationship Specialty Start Date End Date Alan Beyer MD [address] [place] [address] PCP - General Family Medicine 06/08/23 documented as of this encounter
--- OUTSIDE RECORDS SUMMARY | 2024-11-05 10:17 | XMS_ITS | Encounter Summary ---
Author Organization [employer] Address [address] [place] [address] Care Team Providers Care Anatomical Embalmer Name Role Phone Alan Beyer MD Primary Care Provider Encounter Details Date Type Department Care Team (Late st Contact Info) Description 05/03/2020 Transcribed Document [facility] [place] [facility] [place] [address] ProviderJessenia MD [address] [place], [place] [id number] Social History Tobacco Use Types Packs/Day Years Used Date Smoking Tobacco: Never Assessed Comments Unknown Sex and Gender Information Value Date Recorded Sex Assigned at Not on file Legal Sex Female 4:28 PM CDT Gender Identity Not on file Sexual Orientation Not on file documented as of this encounter Miscellaneous Notes * Cerner Conversion Note - Jessenia Alvarez MD - 05/03/2020 3:38 PM CARDIOTHORACIC ANESTHESIA TECHNICIAN Patient: CHARLINE BOND Age: 39 years Sex: Female : 1980 Associated Diagnoses: Viral illness Author: FRANCOISE BARRETT, MEDICAL RECORDS CUSTODIAN-EMR Basic Information Time seen: Date & time 05/03/2020 15:38:00. History source: Patient. Arrival mode: Private vehicle. History limitation: None. Additional information: Chief Complaint from Nursing Triage Note : Chief Complaint 05/03/2020 15:18 EST Chief Complaint Woke up with fever and body aches today. Was tested for Covid yesterday and awaiting results . History of Present Illness 39 year old female presents to ED with complaint of bodyaches, cough, chills today. Was tested for covid yesterday, awaiting results. Denies nausea/vomiting, diarrhea, fever, chest pain, or soa.. Review of Systems Constitutional symptoms: Fever, weakness. Skin symptoms: No rash, Eye symptoms: no recent vision change, no recent vision change. ENMT symptoms: No nasal congestion, Respiratory symptoms: No cough, Cardiovascular symptoms: No syncope, Gastrointestinal symptoms: No nausea, no vomiting. Musculoskeletal symptoms: No back pain, Neurologic symptoms: No altered level of consciousness, Hematologic/Lymphatic symptoms: Bruising tendency negative, Allergy/immunologic symptoms: No seasonal allergies, Health Status Allergies: Allergic Reactions (Selected) Severe [...] reactions were documented.. Medications: (Selected) Prescriptions Prescribed Zofran ODT 4 mg oral tablet, disintegratin Tab, Oral, Q4H, for 3 Day(s), PRN: Nausea/Vomiting, 15 Tab, 0 Refill(s) promethazine 25 mg oral tablet: 1 Tab, Oral, Q4H, for 3 Day(s), can make you sleepy, PRN: as needed for nausea/vomiting, 15 Tab, 0 Refill(s) Documented Medications Documented Karine: Oral, Daily, 0 Refill(s) Premarin: Vaginal, Weekly, cream, 0 Refill(s) Robaxin-750 oral tablet: 1 Tab, Oral, Daily, 42 Tab, 0 Refill(s) Valtrex: 500 mg, Oral, Daily, fever blister, 0 Refill(s) ibuprofen: 400 mg, Oral, Q8H, PRN: as needed for pain, 0 Refill(s), per nurse's notes. Immunizations: Per nurse's notes. Menstrual history: Per nurse's notes. Past Medical/ Family/ Social History Medical history Reviewed as documented in chart. Surgical history: Clavicle ([id number]). Tympanostomy ([id number]). Adenoids ([id number]). shoulder surgery. Gallbladder absent ([id number]). Tubal ligation ([id number]). Hysterectomy ([id number]). Right knee ([id number]). Comments: 05/03/2020 15:32 EST - Jyoti Frazier Rn menisectomy, Reviewed as [...] Physical Examination Vital Signs Vital Signs/Vital Measures 05/03/2020 15:18 EST Systolic Blood Pressure 145 mmHg HI Diastolic Blood Pressure 90 mmHg Temperature Source Tympanic Temperature Mode Fahrenheit Temperature, Fahrenheit 97.7 Deg F Clinical Temperature, C 36.5 Deg C Peripheral Pulse Rate 84 bpm Respiratory Rate 18 Breaths/Min Oxygen Saturation 99 % . Measurements 05/03/2020 15:18 EST Height Source Stated Height Entry Format Tripp Height/Length, TURKMEN (ft) 5 ft Height/Length TURKMEN 5 Inch CLINICALHEIGHT 165.1 cm [place] Body Weight 56.59 kg Weight Source, ED Critical estimated dosing weight Weight Entry Format Tripp Weight Telugu lb 160 lb CLINICALWEIGHT 72.73 kg Body Surface Area (BSA) 1.8 m2 Body Mass Index 26.7 kg/m2 HI . Oxygen Saturation 05/03/2020 15:18 EST Oxygen Saturation 99 % . General: Alert. Skin: Intact. Head: Atraumatic. Neck: Supple. Eye: Vision unchanged. Ears, nose, mouth and throat: Oral mucosa moist. Cardiovascular: No edema. Respiratory: Respirations are non-labored. Chest wall: No deformity. Back: Normal range of motion. Musculoskeletal: No deformity. Gastrointestinal: Non distended. Neurological: Normal speech observed. Lymphatics Psychiatric: Cooperative. Medical Decision Making Differential Diagnosis: Viral syndrome. Documents reviewed: Emergency department nurses' notes. Results review: Lab results : Lab Results 05/03/2020 15:12 EST Influenza A Negative Influenza B Negative Novel Coronavirus 2019 Negative . Impression and Plan Diagnosis Viral illness - Discharge, Emergency medicine, Medical Plan Condition: Stable. Disposition: Medically cleared, Discharged Admit/Transfer/Discharge: Discharge (Order): Start: 05/03/2020 16:49 EST, Discharge to: Home. Patient was given the following educational materials: Viral Illness, Adult, Viral Illness, Adult. Follow up with: ; Follow up with primary care provider Within 2 to 3 days Please continue to monitor symptoms. Rest, fluids, and follow up with pcp in 1-2 days. Return to ER as needed.. Counseled: Patient, Regarding diagnosis, Regarding diagnostic results, Regarding treatment plan, Regarding prescription, Patient indicated understanding of instructions. Electronically signed by Jannette [facility] Conversion Embedded Systems Software Developer Cerner at 08/31/2022 5:10 PM CDT documented in this encounter Plan of Treatment Not on file documented as of this encounter Visit Diagnoses Not on filedocumented in this encounter Care Teams Anatomical Embalmer Relationship Specialty Start Date End Date Alan Beyer MD [address] [place], [place] [id number] PCP - General Family Medicine 06/08/23 documented as of this encounter
--- OUTSIDE RECORDS SUMMARY | 2024-11-05 10:17 | XMS_ITS | Encounter Summary ---
Author Organization [employer] Address [address] [place] [address] Care Team Providers Care Youth Liaison Officer Name Role Phone Alan Beyer MD Primary Care Provider [phone] Encounter Details Date Type Department Care Team (Late st Contact Info) Description 03/16/2020 Transcribed Document [facility] [place] Family Medicine [facility] [place] [address] ProviderJessenia MD [address] [place] [address] Social History Tobacco Use Types Packs/Day Years Used Date Smoking Tobacco: Never Assessed Comments Unknown Sex and Gender Information Value Date Recorded Sex Assigned at Not on file Legal Sex Female 4:28 PM CDT Gender Identity Not on file Sexual Orientation Not on file documented as of this encounter Miscellaneous Notes * Cerner Conversion Note - Jessenia Alvarez MD - 03/16/2020 5:41 PM RAG INSPECTOR ED Discharge Entered On: 03/16/2020 17:42 EST Performed On: 03/16/2020 17:41 EST by SHAMA CASTILLO RN Discharge Process Patient Disposition : Discharge Personal Belongings With Patient : Yes Patient Education Completed : Yes Teaching Evaluation : Verbalizes understanding IV Discontinued : Yes Nursing Documentation Completed : Yes SHAMA CASTILLO RN - 03/16/2020 17:41 EST ED Discharge Discharge To : Home with ambulatory/outpatient follow-up Mode Of Departure : Ambulatory Accompanied By : Friend Discharge Instructions Reviewed With, Opportunity For Questions Given : Patient Prescriptions Given to Patient : Electronically sent SHAMA CASTILLO RN - 03/16/2020 17:41 EST Electronically signed by Jannette, [facility] Conversion Malt Liqu[employer] Sales Supervisor Cerner at 08/31/2022 5:12 PM CDT documented in this encounter Plan of Treatment Not on file documented as of this encounter Visit Diagnoses Not on filedocumented in this encounter Care Teams Youth Liaison Officer Relationship Specialty Start Date End Date Alan Beyer MD [address] [place] [address] PCP - General Family Medicine 06/08/23 documented as of this encounter
--- OUTSIDE RECORDS SUMMARY | 2024-11-05 10:17 | XMS_ITS | Encounter Summary ---
Author Organization [employer] Address [address] [place] [address] Care Team Providers Care Automatic Glove Turner And Former Name Role Phone Alan Beyer MD Primary Care Provider [phone] Encounter Details Date Type Department Care Team (Late st Contact Info) Description 05/30/2021 Transcribed Document [facility] [place] [address] [place] [address] ProviderJessenia MD [address] [place], [place] [address] Social History Tobacco Use Types Packs/Day Years Used Date Smoking Tobacco: Never Assessed Comments Unknown Sex and Gender Information Value Date Recorded Sex Assigned at Not on file Legal Sex Female 4:28 PM CDT Gender Identity Not on file Sexual Orientation Not on file documented as of this encounter Miscellaneous Notes * Cerner Conversion Note - Jessenia ProviderMD - 05/30/2021 6:15 PM TENSILE TESTER Broset Violence Assessment Entered On: 05/30/2021 21:17 EST Performed On: 05/30/2021 20:53 EST by VANDANA KHALIL RN-PATIENT CARE BEDSIDE NON-EXEMPT Broset Violence Assessment Broset Violence Checklist of Symptoms : None Broset Violence Symptoms Subtotal : 0 Broset Violence Symptoms Indicator : Low risk (0) VANDANA KHALIL RN-PATIENT CARE BEDSIDE NON-EXEMPT - 05/30/2021 20:53 EST documented in this encounter Plan of Treatment Not on file documented as of this encounter Visit Diagnoses Not on filedocumented in this encounter Care Teams Automatic Glove Turner And Former Relationship Specialty Start Date End Date Alan Beyer MD [address] [place], [place] [id number] PCP - General Family Medicine 06/08/23 documented as of this encounter
--- OUTSIDE RECORDS SUMMARY | 2024-11-05 10:17 | XMS_ITS | Encounter Summary ---
Author Organization [employer] Address [address] [place] [address] Care Team Providers Care Metal Sander Name Role Phone Alan Beyer MD Primary Care Provider [phone] Encounter Details Date Type Department Care Team (Late st Contact Info) Description 03/16/2020 Transcribed Document [facility] [place] [address] [place] [address] ProviderJessenia MD [address] [place] [address] Social History Tobacco Use Types [...] Jessenia Alvarez MD - 03/16/2020 1:15 PM VEHICLE ASSEMBLY INSPECTOR Broset Violence Assessment Entered On: 03/16/2020 16:17 EST Performed On: 03/16/2020 16:17 EST by SHAMA CASTILLO RN Broset Violence Assessment Broset Violence Checklist of Symptoms : None Broset Violence Symptoms Subtotal : 0 Broset Violence Symptoms Indicator : Low risk (0) SHAMA CASTILLO RN - 03/16/2020 16:17 EST Electronically signed by Jannette [facility] Conversion Fork Truck Driver Cerner at 08/31/2022 5:01 PM CDT documented in this encounter Plan of Treatment Not on file documented as of this encounter Visit Diagnoses Not on filedocumented in this encounter Care Teams Metal Sander Relationship Specialty Start Date End Date Alan Beyer MD [address] [place] [id number] PCP - General Family Medicine 06/08/23 documented as of this encounter
--- OUTSIDE RECORDS SUMMARY | 2024-11-05 10:17 | XMS_ITS | Encounter Summary ---
Author Organization [employer] [facility] [facility] Address [address] [place] [address] Care Team Providers Care Analyst Microbiology Lab Name Role Phone Alan Beyer MD Primary Care Provider [phone] Encounter Details Date Type Department Care Team (Late st Contact Info) Description 07/13/2021 Transcribed Document [facility] Family Medicine [facility] [place] [address] ProviderJessenia MD [address] [place] [address] Social History Tobacco Use Types [...] Jessenia Alvarez MD - 07/13/2021 4:08 PM CNP Patient Education Materials Follows: Hypertension, Adult Hypertension is another name for [...] Limit how much you use to: ? 0?1 drink a day for women. ? 0?2 drinks a day for men. ? Be aware of how much alcohol is in your drink. In the [place] one drink equals one 12 oz bottle of beer (355 mL), one 5 oz glass of wine (148 mL), or one 1? oz glass of hard liquor (44 mL). [...] doctor. This is important. Medicines ??? Take [id number] and prescription medicines only as told by [...] provider. Document Revised: 01/08/2019 Document Reviewed: 01/08/2019 [employer] Patient Education ? 2020 [employer] Emergency Medicine Heart Attack A heart attack occurs when blood and oxygen supply to the heart is cut off. A heart attack causes damage to the heart that cannot be fixed. A heart attack is also called a myocardial infarction, or MT. If you think you are having a [...] these instructions at home: Medicines ??? Take [id number] and prescription medicines only as told by [...] Limit how much you use to: ? 0?1 drink a day for women. ? 0?2 drinks a day for men. ? Know how much alcohol is in your drink. In the [place] one drink equals one 12 oz bottle of beer (355 mL), one 5 oz glass of wine (148 mL), or one 1? oz glass of hard liquor (44 mL). [...] provider. Document Revised: 08/11/2019 Document Reviewed: 08/11/2019 Else[employer] Patient Education ? 2020 [employer] Procedures How to Take Your Blood Pressure Blood [...] (record them) in a notebook. 11. Wait 2?3 minutes, then repeat the steps, starting at [...] pressure: below 80. Elevated ??? Systolic pressure: 120?129. ??? Diastolic pressure: below 80. Hypertension stage 1 ??? Systolic pressure: 130?139. ??? Diastolic pressure: 80?89. Hypertension stage 2 ??? Systolic pressure: 140 [...] buy a blood pressure monitor at most [employer] or online. Where to find more information [employer]: www.heart.org Contact a health care [...] provider. Document Revised: 04/23/2020 Document Reviewed: 04/23/2020 [employer] Patient Education ? 2020 [employer] labs. documented in this encounter Plan of Treatment Not on file documented as of this encounter Visit Diagnoses Not on filedocumented in this encounter Care Teams Analyst Microbiology Lab Relationship Specialty Start Date End Date Alan Beyer MD [address] [place] [address] PCP - General Family Medicine 06/08/23 documented as of this encounter
--- OUTSIDE RECORDS SUMMARY | 2024-11-05 10:17 | XMS_ITS | Encounter Summary ---
Author Organization [employer] Address [address] [place] [address] Care Team Providers Care Magazine Publisher Name Role Phone Alan Beyer MD Primary Care Provider [phone] Encounter Details Date Type Department Care Team ([facility] st Contact Info) Description 02/09/2021 Transcribed Document [facility] [place] Family Medicine [facility] [place] [address] ProviderJessenia MD [address] [place], [place] [address] Social History Tobacco Use Types Packs/Day Years Used Date Smoking Tobacco: Never Assessed Comments Unknown Sex and Gender Information Value Date Recorded Sex Assigned at Not on file Legal Sex Female 4:28 PM CDT Gender Identity Not on file Sexual Orientation Not on file documented as of this encounter Miscellaneous Notes * Cerner Conversion Note - Jessenia ProviderMD - 02/09/2021 9:25 AM CDT CR Chest 2 Vws Ordered: 02/08/2021 Auth (Verified) Reason for Exam: cough 02/09/2021 08:06 02/09/2021 09:25 (KIRK NOGUERA) No further action required documented in this encounter Plan of Treatment Not on file documented as of this encounter Visit Diagnoses Not on filedocumented in this encounter Care Teams Magazine Publisher Relationship Specialty Start Date End Date Alan Beyer MD [address] [place] [address] PCP - General Family Medicine 06/08/23 documented as of this encounter
--- OUTSIDE RECORDS SUMMARY | 2024-11-05 10:17 | XMS_ITS | Encounter Summary ---
Author Organization [employer] Address [address] [place] [address] Care Team Providers Care Floater Operator Name Role Phone Alan Beyer MD Primary Care Provider [phone] Encounter Details Date Type Department Care Team (Late st Contact Info) Description 05/30/2021 Transcribed Document [facility] [place] [address] ProviderJessenia MD [address] [place], [place] [address] Social History Tobacco Use Types Packs/Day Years Used Date Smoking Tobacco: Never Assessed Comments Unknown Sex and Gender Information Value Date Recorded Sex Assigned at Not on file Legal Sex Female 4:28 PM CDT Gender Identity Not on file Sexual Orientation Not on file documented as of this encounter Miscellaneous Notes * Cerner Conversion Note - Jessenia Alvarez MD - 05/30/2021 7:27 PM DROP WIRE ALINER Pain Assessment Entered On: 05/30/2021 21:17 EST Performed On: 05/30/2021 20:53 EST by VANDANA KHALIL RN-PATIENT CARE BEDSIDE NON-EXEMPT Intervention Information: HYDROmorphone Performed by VANDANA KHALIL RN-PATIENT CARE BEDSIDE NON-EXEMPT on 05/30/2021 20:22:00 EST HYDROmorphone,1mg IV Push,Left Antecubital [place] Pain Assessment Pain Assessment : Follow-up assessment Pain Scale Used : 0-10 Scale VANDANA KHALIL RN-PATIENT CARE BEDSIDE NON-EXEMPT - 05/30/2021 20:53 EST Pain Scale Intensity : 3 VANDANA KHALIL RN-PATIENT CARE BEDSIDE NON-EXEMPT - 05/30/2021 20:53 EST Image 4 - Images currently included in the form version of this document have not been included in the text rendition version of the form. documented in this encounter Plan of Treatment Not on file documented as of this encounter Visit Diagnoses Not on filedocumented in this encounter Care Teams Floater Operator Relationship Specialty Start Date End Date Alan Beyer MD [address] [place] [address] PCP - General Family Medicine 06/08/23 documented as of this encounter
--- OUTSIDE RECORDS SUMMARY | 2024-11-05 10:17 | XMS_ITS | Encounter Summary ---
Author Organization [facility] [employer] Address [address] [place] [address] Care Team Providers Care Investment Recovery Technician Name Role Phone Alan Beyer MD Primary Care Provider [phone] Encounter Details Date Type Department Care Team (Late st Contact Info) Description 03/30/2021 Transcribed Document [facility] Family Medicine [facility] [place] [address] ProviderJessenia MD [address] [place] [address] Social History Tobacco Use Types Packs/Day Years Used Date Smoking Tobacco: Never Assessed Comments Unknown Sex and Gender Information Value Date Recorded Sex Assigned at Not on file Legal Sex Female 4:28 PM CDT Gender Identity Not on file Sexual Orientation Not on file documented as of this encounter Miscellaneous Notes * Cerner Conversion Note - Jessenia Alvarez MD - 03/30/2021 4:37 AM 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 [place] [id number] CHARLINE BOND :1980 Visit Time:03/30/2021 Your Visit Summary Your Care Team Primary Provider: JAVI TRUJILLO MD Secondary Provider: Your Diagnosis Chest pain Headache Hypertension Nonspecific chest pain Medical Information You may obtain a copy [...] do next Follow-Up Appointments Follow Up with RHIANNA MARTIN When Within 2 to 3 days Comments Your blood pressure was elevated during your [...] Tab, 0 refill(s), Route to Pharmacy Electronically, [place] [address] predniSONE 10 mg oral tablet See Instructions, Tab, Six-day tapering Dosepak, 21 Tab, 0 refill(s), Route to Pharmacy Electronically, [place] [address] Where: [address] Business (1) Allergies Bactrim acetaminophen-oxyCODONE clindamycin Toradol baclofen doxycycline escitalopram fentaNYL lidocaine topical 2% gel meperidine morphine penicillin (Hives) tetanus immune globulin Immunizations This Visit No Immunizations Found Medications What How Much When Instructions Next Dose cyclobenzaprine (cyclobenzaprine 10 mg oral tablet) 1 Tablet(s) Oral Three Times A Day as needed for as needed for spasm Duration: 5 Day(s) Pickup at [place] [address] predniSONE (predniSONE 10 mg oral tablet) See instructions Six-day tapering Dosepak Pickup at [place] [address] conjugated estrogens (Premarin) Vaginal Weekly cream fexofenadine (Karine) Oral Every Day ibuprofen 400 Milligram(s) Oral Every 8 Hours as needed for as needed for pain methocarbamol (Robaxin-750 oral tablet) 1 Tablet(s) Oral Every Day valACYclovir (Valtrex) 500 Milligram(s) Oral Every Day fever blister Pharmacy Information [facility]: [phone] [place], [place] [id number] [phone] The home medications listed are only as [...] This Visit (last charted value for your 03/30/2021 visit) Hematology 03/30/2021 1:28 AM WBC: 6.9 K/uL -- Normal range between ( 3.9 and 10.0 ) RBC: 3.76 Million/uL -- Normal range between ( 3.93 and 5.22 ) Hct: 39.3 % -- Normal range between ( 34.1 and 44.9 ) Hgb: 12.9 Gram/dL -- Normal range between ( 11.2 and 15.7 ) Platelet Count: 202 K/uL -- Normal range between ( 163 and 369 ) MCH: 34.3 pg -- Normal range between ( 25.6 and 32.2 ) MCHC: 32.8 Gram/dL -- Normal range between ( 32.3 and 36.5 ) MCV: 104.5 fL -- Normal range between ( 79.0 and 94.8 ) Slide Review: No Eos %: 4.5 % -- Normal range between ( 1.0 and 7.0 ) [place] #: 0.50 K/uL -- Normal range between ( 0.24 and 0.82 ) Eos #: 0.31 K/uL -- Normal range between ( 0.04 and 0.54 ) [place] %: 7.2 % -- Normal range between ( 4.7 and 12.5 ) Baso %: 0.4 % -- Normal range between ( 0.0 and 1.0 ) Baso #: 0.03 K/uL -- Normal range between ( 0.01 and 0.08 ) RDW: 12.2 % -- Normal range between ( 11.6 and 14.4 ) Neut %: 44.0 % -- Normal range between ( 34.0 and 71.0 ) Neut #: 3.04 K/uL -- Normal range between ( 1.56 and 6.13 ) Lymph %: 43.8 % -- Normal range between ( 19.3 and 53.0 ) Lymph #: 3.03 K/uL -- Normal range between ( 1.18 and 3.74 ) MPV: 9.8 fL -- Normal range between ( 9.4 and 12.4 ) IG#: 0 x10(3)/uL IG%: 0 % -- Normal range between ( 0 and 1 ) General Chemistry 03/30/2021 1:28 AM Creatinine Level: 0.72 mg/dL -- Normal range between ( 0.55 and 1.02 ) Sodium Level: 143 mmol/L -- Normal range between ( 136 and 146 ) Potassium Level: 3.9 mmol/L -- Normal range between ( 3.5 [...] ( 0.2 and 1.3 ) A/G Ratio: 1.1 -- Normal range between ( 1.1 and 2.5 ) ALT: 15 Units/Liter -- Normal range between ( 12 and 78 ) AST: 13 Units/Liter -- Normal range between ( 5 and 37 ) Globulin: 3.6 Gram/dL -- Normal range between ( 1.5 and 4.5 ) Alk Phos: 82 Units/Liter -- Normal range between ( 27 and 136 ) Bun/Creatinine: 20.8 -- Normal range between ( 8.0 and 20.0 ) Calcium Level: 8.4 mg/dL -- Normal range between ( 8.5 and 10.1 ) eGFR : >60 mL/min/1.73m2 eGFR NonAfrican: >60 mL/min/1.73m2 Glucose Level: 94 mg/dL -- Normal range between ( 74 and 106 ) Blood Urea Nitrogen: 15 mg/dL -- Normal range between ( 7 and 22 ) Protein Total: 7.6 Gram/dL -- Normal range between ( 6.4 and 8.2 ) Albumin Level: 4.0 Gram/dL -- Normal range between ( 3.4 and 5.0 ) Cardiac Specific Markers 03/30/2021 2:09 AM ProBNP: 126 pg/mL -- Normal range between ( 0 and 125 ) 03/30/2021 1:28 AM Troponin I Ultra: <0.015 ng/mL -- Normal range between ( 0.015 and 0.045 ) Education Materials Managing Your Hypertension Hypertension, also called high blood pressure, is when the force of the blood pressing against the levy of the arteries is too strong. Arteries are blood vessels that carry blood from your heart throughout your body. Hypertension forces the heart to work harder to pump blood and may cause the arteries to become narrow or stiff. Understanding blood pressure readings Your personal target blood pressure may vary depending on your medical conditions, your age, and other factors. A blood pressure reading includes a higher number over a lower number. Ideally, your blood pressure should be below 120/80. You should know that: ??? The first, or top, number is called the systolic pressure. It is a measure of the pressure in your arteries as your heart beats. ??? The second, or bottom number, is called the diastolic pressure. It is a measure of the pressure in your arteries as the heart relaxes. Blood pressure is classified into four stages. Based on your blood pressure reading, your health care provider may use the following stages to determine what type of treatment you need, if any. Systolic pressure and diastolic pressure are measured in a unit called mmHg. Normal ??? Systolic pressure: below 120. ??? Diastolic pressure: below 80. Elevated ??? Systolic pressure: 120???129. ??? Diastolic pressure: below 80. Hypertension stage 1 ??? Systolic pressure: 130???139. ??? Diastolic pressure: 80???89. Hypertension stage 2 ??? Systolic pressure: 140 or above. ??? Diastolic pressure: 90 or above. How can this condition affect me? Managing your hypertension is an important responsibility. Over time, hypertension can damage the arteries and decrease blood flow to important parts of the body, including the brain, heart, and kidneys. Having untreated or uncontrolled hypertension can lead to: ??? A heart attack. ??? A stroke. ??? A weakened blood vessel (aneurysm). ??? Heart failure. ??? Kidney damage. ??? Eye damage. ??? Metabolic syndrome. ??? Memory and concentration problems. ??? Vascular dementia. What actions can I take to manage this condition? Hypertension can be managed by making lifestyle changes and possibly by taking medicines. Your health care provider will help you make a plan to bring your blood pressure within a normal range. Nutrition ??? Eat a diet that is high in fiber and potassium, and low in salt (sodium), added sugar, and fat. An example eating plan is called the Dietary Approaches to Stop Hypertension (DASH) diet. To eat this way: ? Eat plenty of fresh fruits and vegetables. Try to fill one-half of your plate at each meal with fruits and vegetables. ? Eat whole grains, such as whole-wheat pasta, brown rice, or whole-grain bread. Fill about one-fourth of your plate with whole grains. ? Eat low-fat dairy products. ? Avoid fatty cuts of meat, processed or cured meats, and poultry with skin. Fill about one-fourth of your plate with lean proteins such as fish, chicken without skin, beans, eggs, and tofu. ? Avoid pre-made and processed foods. These tend to be higher in sodium, added sugar, and fat. ??? Reduce your daily sodium intake. Most people with hypertension should eat less than 1,500 mg of sodium a day. Lifestyle ??? Work with your health care provider to maintain a healthy body weight or to lose weight. Ask what an ideal weight is for you. ??? Get at least 30 minutes of exercise that causes your heart to beat faster (aerobic exercise) most days of the week. Activities may include walking, swimming, or biking. ??? Include exercise to strengthen your muscles (resistance exercise), such as weight lifting, as part of your weekly exercise routine. Try to do these types of exercises for 30 minutes at least 3 days a week. ??? Do not use any products that contain nicotine or tobacco, such as cigarettes, e-cigarettes, and chewing tobacco. If you need help quitting, ask your health care provider. ??? Control any long-term (chronic) conditions you have, such as high cholesterol or diabetes. ??? Identify your sources of stress and find ways to manage stress. This may include meditation, deep breathing, or making time for fun activities. Alcohol use ??? Do not drink alcohol if: ? Your health care provider tells you not to drink. ? You [...] oz glass of hard liquor (44 mL). Medicines Your health care provider may prescribe medicine if lifestyle changes are not enough to get your blood pressure under control and if: ??? Your systolic blood pressure is 130 or higher. ??? Your diastolic blood pressure is 80 or higher. Take medicines only as told by your health care provider. Follow the directions carefully. Blood pressure medicines must be taken as told by your health care provider. The medicine does not work as well when you skip doses. Skipping doses also puts you at risk for problems. Monitoring Before you monitor your blood pressure: ??? Do not smoke, drink caffeinated beverages, or exercise within 30 minutes before taking a measurement. ??? Use the bathroom and empty your bladder (urinate). ??? Sit quietly for at least 5 minutes before taking measurements. Monitor your blood pressure at home as told by your health care provider. To do this: ??? Sit with your back straight and supported. ??? Place your feet flat on the floor. Do not cross your legs. ??? Support your arm on a flat surface, such as a table. Make sure your upper arm is at heart level. ??? Each time you measure, take two or three readings one minute apart and record the results. You may also need to have your blood pressure checked regularly by your health care provider. General information ??? Talk with your health care provider about your diet, exercise habits, and other lifestyle factors that may be contributing to hypertension. ??? Review all the medicines you take with your health care provider because there may be side effects or interactions. ??? Keep all visits as told by your health care provider. Your health care provider can help you create and adjust your plan for managing your high blood pressure. Where to find more information ??? National Heart, Lung, and Blood [place]: www.nhlbi.nih.gov ??? [place] [employer]: www.heart.org Contact a health care provider if: ??? You think you are having a reaction to medicines you have taken. ??? You have repeated (recurrent) headaches. ??? You feel dizzy. ??? You have swelling in your ankles. ??? You have trouble with your vision. Get help right away if: ??? You develop a severe headache or confusion. ??? You have unusual weakness or numbness, or you feel faint. ??? You have severe pain in your chest or abdomen. ??? You vomit repeatedly. ??? You have trouble breathing. These symptoms may represent a serious problem that is an emergency. Do not wait to see if the symptoms will go away. Get medical help right away. Call your local emergency services (911 in the [place] Do not drive yourself to the hospital. Summary ??? Hypertension is when the force of blood pumping through your arteries is too strong. If this condition is not controlled, it may put you at risk for serious complications. ??? Your personal target blood pressure may vary depending on your medical conditions, your age, and other factors. For most people, a normal blood pressure is less than 120/80. ??? Hypertension is managed by lifestyle changes, medicines, or both. ??? Lifestyle changes to help manage hypertension include losing weight, eating a healthy, low-sodium diet, exercising more, stopping smoking, and limiting alcohol. This information is not intended to replace advice given to you by your health care provider. Make sure you discuss any questions you have with your health care provider. Document Revised: 06/04/2020 Document Reviewed: 03/30/2020 [employer] Patient Education ?? 2020 [employer] Hypertension, Adult Hypertension is another name for [...] doctor. This is important. Medicines ??? Take tsdh-[id number] and prescription medicines only as told by [...] provider. Document Revised: 01/08/2019 Document Reviewed: 01/08/2019 [employer] Patient Education ?? 2020 [employer] Nonspecific Chest Pain Chest pain can be caused by many different conditions. Some causes of chest pain can be life-threatening. These will require treatment right away. Serious causes of chest pain include: ??? Heart attack. ??? A tear in the body's main blood vessel. ??? Redness and swelling (inflammation) around your heart. ??? Blood clot in your lungs. Other causes of chest pain may not be so serious. These include: ??? Heartburn. ??? Anxiety or stress. ??? Damage to bones or muscles in your chest. ??? Lung infections. Chest pain can feel like: ??? Pain or discomfort in your chest. ??? Crushing, pressure, aching, or squeezing pain. ??? Burning or tingling. ??? Dull or sharp pain that is worse when you move, cough, or take a deep breath. ??? Pain or discomfort that is also felt in your back, neck, jaw, shoulder, or arm, or pain that spreads to any of these areas. It is hard to know whether your pain is caused by something that is serious or something that is not so serious. So it is important to see your doctor right away if you have chest pain. Follow these instructions at home: Medicines ??? Take ifwf-mhx-sabzaam and prescription medicines only as told by your doctor. ??? If you were prescribed an antibiotic medicine, take it as told by your doctor. Do not stop taking the antibiotic even if you start to feel better. Lifestyle ??? Rest as told by your doctor. ??? Do not use any products that contain nicotine or tobacco, such as cigarettes, e-cigarettes, and chewing tobacco. If you need help quitting, ask your doctor. ??? Do not drink alcohol. ??? Make lifestyle changes as told by your doctor. These may include: ? Getting regular exercise. Ask your doctor what activities are safe for you. ? Eating a heart-healthy diet. A diet and compliance specialist (dietitian) can help you to learn healthy eating options. ? Staying at a healthy weight. ? Treating diabetes or high blood pressure, if needed. ? Lowering your stress. Activities such as yoga and relaxation techniques can help. General instructions ??? Pay attention to any changes in your symptoms. Tell your doctor about them or any new symptoms. ??? Avoid any activities that cause chest pain. ??? Keep all follow-up visits as told by your doctor. This is important. You may need more testing if your chest pain does not go away. Contact a doctor if: ??? Your chest pain does not go away. ??? You feel depressed. ??? You have a fever. Get help right away if: ??? Your chest pain is worse. ??? You have a cough that gets worse, or you cough up blood. ??? You have very bad (severe) pain in your belly (abdomen). ??? You pass out (faint). ??? You have either of these for no clear reason: ? Sudden chest discomfort. ? Sudden discomfort in your arms, back, neck, or jaw. ??? You have shortness of breath at any time. ??? You suddenly start to sweat, or your skin gets clammy. ??? You feel sick to your stomach (nauseous). ??? You throw up (vomit). ??? You suddenly feel lightheaded or dizzy. ??? You feel very weak or tired. ??? Your heart starts to beat fast, or it feels like it is skipping beats. These symptoms may be an emergency. Do not wait to see if the symptoms will go away. Get medical help right away. Call your local emergency services (911 in the [place] Do not drive yourself to the hospital. Summary ??? Chest pain can be caused by many different conditions. The cause may be serious and need treatment right away. If you have chest pain, see your doctor right away. ??? Follow your doctor's instructions for taking medicines and making lifestyle changes. ??? Keep all follow-up visits as told by your doctor. This includes visits for any further testing if your chest pain does not go away. ??? Be sure to know the signs that show that your condition has become worse. Get help right away if you have these symptoms. This information is not intended to replace advice given to you by your health care provider. Make sure you discuss any questions you have with your health care provider. Document Revised: 10/31/2018 Document Reviewed: 10/31/2018 [employer] Patient Education ?? 202 [employer] General Headache Without Cause A headache is pain or discomfort felt around the head or neck area. The specific cause of a headache may not be found. There are many causes and types of headaches. A few common ones are: ??? Tension headaches. ??? Migraine headaches. ??? Cluster headaches. ??? Chronic daily headaches. Follow these instructions at home: Watch your condition for any changes. Let your health care provider know about them. Take these steps to help with your condition: Managing pain ??? Take ywok-yfw-sjztevd and prescription medicines only as told by your health care provider. ??? Lie down in a dark, quiet room when you have a headache. ??? If directed, put ice on your head and neck area: ? Put ice in a plastic bag. ? Place a towel between your skin and the bag. ? Leave the ice on for 20 minutes, 2???3 times per day. ??? If directed, apply heat to the affected area. Use the heat source that your health care provider recommends, such as a moist heat pack or a heating pad. ? Place a towel between your skin and the heat source. ? Leave the heat on for 20???30 minutes. ? Remove the heat if your skin turns bright red. This is especially important if you are unable to feel pain, heat, or cold. You may have a greater risk of getting burned. ??? Keep lights dim if bright lights bother you or make your headaches worse. Eating and drinking ??? Eat meals on a regular schedule. ??? If you drink alcohol: ? Limit [...] oz glass of hard liquor (44 mL). ??? Stop drinking caffeine, or decrease the amount of caffeine you drink. General instructions ??? Keep a headache journal to help find out what may trigger your headaches. For example, write down: ? What you eat and drink. ? How much sleep you get. ? Any change to your diet or medicines. ??? Try massage or other relaxation techniques. ??? Limit stress. ??? Sit up straight, and do not tense your muscles. ??? Do not use any products that contain nicotine or tobacco, such as cigarettes, e-cigarettes, and chewing tobacco. If you need help quitting, ask your health care provider. ??? Exercise regularly as told by your health care provider. ??? Sleep on a regular schedule. Get 7???9 hours of sleep each night, or the amount recommended by your health care provider. ??? Keep all follow-up visits as told by your health care provider. This is important. Contact a health care provider if: ??? Your symptoms are not helped by medicine. ??? You have a headache that is different from the usual headache. ??? You have nausea or you vomit. ??? You have a fever. Get help right away if: ??? Your headache becomes severe quickly. ??? Your headache gets worse after moderate to intense physical activity. ??? You have repeated vomiting. ??? You have a stiff neck. ??? You have a loss of vision. ??? You have problems with speech. ??? You have pain in the eye or ear. ??? You have muscular weakness or loss of muscle control. ??? You lose your balance or have trouble walking. ??? You feel faint or pass out. ??? You have confusion. ??? You have a seizure. Summary ??? A headache is pain or discomfort felt around the head or neck area. ??? There are many causes and types of headaches. In some cases, the cause may not be found. ??? Keep a headache journal to help find out what may trigger your headaches. Watch your condition for any changes. Let your health care provider know about them. ??? Contact a health care provider if you have a headache that is different from the usual headache, or if your symptoms are not helped by medicine. ??? Get help right away if your headache becomes severe, you vomit, you have a loss of vision, you lose your balance, or you have a seizure. This information is not intended to replace advice given to you by your health care provider. Make sure you discuss any questions you have with your health care provider. Document Revised: 11/18/2018 Document Reviewed: 11/18/2018 [employer] Patient Education ?? 202 [employer] Emergency Awareness and Preventative Care [...] Assistance with quitting is available by contacting 5-458-SQNR-NOW. This is a free resource providing counseling, support, and referral. Or you may contact your personal physician. [employer] Suicide Prevention Lifeline: The National Suicide Prevention [...] was given the opportunity to ask questions. Patient/Dicer Operator Name: Patient/Dicer Operator Signature: Relationship to Patient: Clinician/Hospital Dicer Operator Signature: Please Provide a Telephone Number Where You Can Be Reached: Is it Permissible To Leave a Message? Date: Electronically signed by Jannette, [facility] Conversion Heat Plant Specialist Cerner at 08/31/2022 5:07 PM CDT documented in this encounter Plan of Treatment Not on file documented as of this encounter Visit Diagnoses Not on filedocumented in this encounter Care Teams Investment Recovery Technician Relationship Specialty Start Date End Date Alan Beyer MD [address] [place] [address] PCP - General Family Medicine 06/08/23 documented as of this encounter
--- OUTSIDE RECORDS SUMMARY | 2024-11-05 10:17 | XMS_ITS | Encounter Summary ---
Author Organization [employer] Address [address] [place] [address] Care Team Providers Care Dry Kiln Loader Name Role Phone Alan Beyer MD Primary Care Provider [phone] Encounter Details Date Type Department Care Team (Late st Contact Info) Description 03/16/2020 Transcribed Document [facility] Family Medicine [facility] [place] [address] ProviderJessenia MD [address] [place] [address] Social History Tobacco Use Types Packs/Day [...] Jessenia Alvarez MD - 03/16/2020 1:15 PM COAL PIPELINE OPERATOR ED Triage Entered On: 03/16/2020 13:30 EST Performed On: 03/16/2020 13:29 EST by SHAMA CASTILLO RN ED Triage Across the Room Chief Complaint : Pt c/o n/v/d that started Sunday, sent by PCP, miranda oshea. Triage Date/Time : 03/16/2020 13:29 EST SHAMA CASTILLO RN - 03/16/2020 13:29 EST DCP GENERIC CODE Tracking Acuity : 3 - Urgent Tracking Group : [facility] ED East SHAMA CASTILLO RN - 03/16/2020 13:29 EST Mode of Arrival : Ambulatory Transported to ED by : Private vehicle To Room Via : Ambulate Accompanied By : Unaccompanied ED Vital Signs : Document Height & Weight : Document ED Allergies : Document ED Reason for Visit : Document Tetanus Immunization : Unknown SHAMA CASTILLO RN - 03/16/2020 13:29 EST Infectious Disease History Has the patient ever been tested for COVID-19? : Yes, Patient stated results Negative Date of COVID-19 test known? : No Does patient have symptoms of COVID-19? : No COVID19 Screening : No Experiencing Infectious Disease Symptoms : No symptoms Physical contact outside US in the last 30 days : No Infectious Disease History : Chicken pox/Shingles, Herpes, Influenza, Mononucleosis Tuberculosis Symptoms : None SHAMA CASTILLO RN - 03/16/2020 13:29 EST Vital Signs ED Temperature Source : Temporal artery scanning Temperature Mode : Fahrenheit Temperature, Fahrenheit : 97.0 Deg F Clinical Temperature, C : 36.1 Deg C Oxygen Therapy Mode : Room air Peripheral Pulse Rate : 102 bpm (HI) Respiratory Rate : 18 Breaths/Min Systolic Blood Pressure : 139 mmHg Diastolic Blood Pressure : 90 mmHg Oxygen Saturation : 99 % SHAMA CASTILLO RN - 03/16/2020 13:29 EST Allergy (As Of: 03/16/2020 13:30:55 EST) Allergies (Active) acetaminophen-oxyCODONE Estimated Onset Date: Unspecified ; Comments: Comment 1: throws up and itching ; Created By: Breanna Ivey Rn; Reaction Status: Active ; Category: Drug ; Substance: acetaminophen-oxyCODONE ; Severity: Severe ; Updated By: Breanna Ievy Rn; Source: Patient ; Reviewed Date: 03/16/2020 13:29 EST baclofen Estimated Onset Date: Unspecified ; Comments: Comment 1: hives and cant breath ; Created By: Breanna Ivey Rn; Reaction Status: Active ; Category: Drug ; Substance: baclofen ; Type: Allergy ; Updated By: Breanna Ivey Rn; Reviewed Date: 03/16/2020 13:29 EST Bactrim Estimated Onset Date: Unspecified ; Comments: Comment 1: hives not breathing ; Created By: Breanna Ivey Rn; Reaction Status: Active ; Category: Drug ; Substance: Bactrim ; Type: Allergy ; Severity: Severe ; Updated By: Breanna Ivey Rn; Source: Patient ; Reviewed Date: 03/16/2020 13:29 EST clindamycin Estimated Onset Date: Unspecified ; Comments: Comment 1: Hives, vomiting ; Created By: Talia Eason RN; Reaction Status: Active ; Category: Drug ; Substance: clindamycin ; Type: Allergy ; Severity: Severe ; Updated By: Talia Esaon RN; Reviewed Date: 03/16/2020 13:29 EST doxycycline Estimated Onset Date: Unspecified ; Comments: Comment 1: hives and projectile vomiting ; Created By: Breanna Ivey Rn; Reaction Status: Active ; Category: Drug ; Substance: doxycycline ; Type: Allergy ; Updated By: Breanna Ivey Rn; Reviewed Date: 03/16/2020 13:29 EST escitalopram Estimated Onset Date: Unspecified ; Comments: Comment 1: unknown ; Created By: Breanna Ivey Rn; Reaction Status: Active ; Category: Drug ; Substance: escitalopram ; Type: Allergy ; Updated By: Breanna Ivey Rn; Reviewed Date: 03/16/2020 13:29 EST fentaNYL Estimated Onset Date: Unspecified ; Comments: Comment 1: hallucinate and cry ; Created By: Breanna Ivey Rn; Reaction Status: Active ; Category: Drug ; Substance: fentaNYL ; Type: Allergy ; Updated By: Breanna Ivey Rn; Reviewed Date: 03/16/2020 13:29 EST lidocaine topical 2% gel Estimated Onset Date: Unspecified ; Comments: Comment 1: severe swelling, itching, rash ; Created By: Breanna Ivey Rn; Reaction Status: Active ; Category: Drug ; Substance: lidocaine topical 2% gel ; Type: Allergy ; Updated By: Breanna Ivey Rn; Reviewed Date: 03/16/2020 13:29 EST meperidine Estimated Onset Date: Unspecified ; Comments: Comment 1: hallucinations and angry ; Created By: Breanna Ivey Rn; Reaction Status: Active ; Category: Drug ; Substance: meperidine ; Type: Allergy ; Updated By: Breanna Ivey Rn; Reviewed Date: 03/16/2020 13:29 EST morphine Estimated Onset Date: Unspecified ; Comments: Comment 1: severe itching ; Created By: Breanna Ivey Rn; Reaction Status: Active ; Category: Drug ; Substance: morphine ; Type: Allergy ; Updated By: Breanna Ivey Rn; Reviewed Date: 03/16/2020 13:29 EST penicillin Estimated Onset Date: Unspecified ; Reactions: Hives ; Comments: Comment 1: hives Comment 2: Pt has tolerated cefoxitin in 06/30, 06/01, and trying cefazolin 05/01 ; Created By: JAME ZUNIGA PharmD; Reaction Status: Active ; Category: Drug ; Substance: penicillin ; Type: Allergy ; Updated By: JAME ZUNIGA PharmD; Reviewed Date: 03/16/2020 13:29 EST tetanus immune globulin Estimated Onset Date: Unspecified ; Comments: Comment 1: adverse reaction I get tetanus and my body will swell up ; Created By: Breanna Ivey Rn; Reaction Status: Active ; Category: Drug ; Substance: tetanus immune globulin ; Type: Allergy ; Updated By: Breanna Ivey Rn; Reviewed Date: 03/16/2020 13:29 EST Toradol Estimated Onset Date: Unspecified ; Comments: Comment 1: feels like a softball in chest and my chest goes numb ; Created By: Breanna Ivey Rn; Reaction Status: Active ; Category: Drug ; Substance: Toradol ; Type: Allergy ; Updated By: Breanna Ivey Rn; Reviewed Date: 03/16/2020 13:29 EST Diagnosis Control ED (As Of: 03/16/2020 13:30:55 EST) Problems(Active) Anxiety (SNOMED CT :68341322 ) Name of Problem: Anxiety ; Recorder: ERICKA ISSA RN; Confirmation: Confirmed ; Classification: Medical ; Code: [id number] ; Contributor System: Pijon ; Last Updated: 07/26/2015 22:28 EDT ; Life Cycle Date: 07/26/2015 ; Life Cycle Status: Active ; Vocabulary: SNOMED CT Endometriosis, vagina (SNOMED CT :16754285 ) Name of Problem: Endometriosis, vagina ; Recorder: Breanna Ivey RN; Confirmation: Confirmed ; Classification: Medical ; Code: [id number] ; Contributor System: Pijon ; Last Updated: 05/24/2018 10:54 EST ; Life Cycle Date: 05/24/2018 ; Life Cycle Status: Active ; Vocabulary: SNOMED CT Kidney stones (SNOMED CT :740107948 ) Name of Problem: Kidney stones ; Recorder: KAYY ANDREW; Confirmation: Confirmed ; Classification: Medical ; Code: [id number] ; Contributor System: PowerChart ; Last Updated: 06/06/2016 9:30 EST ; Life Cycle Date: 06/06/2016 ; Life Cycle Status: Active ; Vocabulary: SNOMED CT Migraine (SNOMED CT :63421633 ) Name of Problem: Migraine ; Recorder: ERICKA ISSA RN; Confirmation: Confirmed ; Classification: Medical ; Code: 92103559 ; Contributor System: PowerChart ; Last Updated: 07/26/2015 22:28 EDT ; Life Cycle Date: 07/26/2015 ; Life Cycle Status: Active ; Vocabulary: SNOMED CT S/P hysterectomy (SNOMED CT :373392351 ) Name of Problem: S/P hysterectomy ; Recorder: LEONID CASTANEDA RN; Confirmation: Confirmed ; Classification: Medical ; Code: [id number] ; Contributor System: [employer] D[employer] Services[employer] ; Last Updated: 11/06/2019 20:08 EDT ; Life Cycle Date: 11/06/2019 ; Life Cycle Status: Active ; Vocabulary: SNOMED CT Shoulder pain, left (SNOMED CT :42138970 ) Name of Problem: Shoulder pain, left ; Recorder: Breanna Ivey RN; Confirmation: Confirmed ; Classification: Medical ; Code: 31217600 ; Contributor System: PowerChart ; Last Updated: 05/24/2018 10:53 EST ; Life Cycle Date: 05/24/2018 ; Life Cycle Status: Active ; Vocabulary: SNOMED CT Diagnoses(Active) Vomiting Date: 03/16/2020 ; Diagnosis Type: Reason For Visit ; Confirmation: Complaint of ; Clinical Dx: Vomiting ; Classification: Medical ; Clinical Service: Emergency medicine ; Code: PNED ; Probability: 0 ; Diagnosis Code: [id number] ED Height and Weight Height Source : Stated Height Entry Format : [place] Height, Feet : 5 ft(Converted to: 152 cm, 60 Inch) Height, Inches : 5 Inch(Converted to: 0 ft 5 Inch, 12.70 cm) Clinical Height : 165.1 cm Weight Source, ED : Critical estimated dosing weight Weight Entry Format : [place] Weight, Pounds : 160 lb Clinical Dosing Weight : 72.73 kg Body Surface Area (BSA) : 1.8 m2 Body Mass Index : 26.7 kg/m2 (HI) [place] Body Weight (IBW) : 56.59 kg SHAMA CASTILLO RN - 03/16/2020 13:29 EST documented in this encounter Plan of Treatment Not on file documented as of this encounter Visit Diagnoses Not on filedocumented in this encounter Care Teams Dry Kiln Loader Relationship Specialty Start Date End Date Alan Beyer MD [address] [place] [address] PCP - General Family Medicine 06/08/23 documented as of this encounter
--- OUTSIDE RECORDS SUMMARY | 2024-11-05 10:17 | XMS_ITS | Encounter Summary ---
Author Organization [employer] Address [address] [place] [address] Care Team Providers Care Garage Mechanic Name Role Phone Alan Beyer MD Primary Care Provider [phone] Encounter Details Date Type Department Care Team (Late st Contact Info) Description 05/03/2020 Transcribed Document [facility] Family Medicine [address] [place] [address] ProviderJessenia MD [address] [place] [address] Social History Tobacco Use Types Packs/Day Years Used Date Smoking Tobacco: Never Assessed Comments Unknown Sex and Gender Information Value Date Recorded Sex Assigned at Not on file Legal Sex Female 4:28 PM CDT Gender Identity Not on file Sexual Orientation Not on file documented as of this encounter Miscellaneous Notes * Cerner Conversion Note - Jessenia Alvarez MD - 05/03/2020 5:02 PM BOILERMAKER LOFTSMAN [address] [place] [address] PERSON INFORMATION Name CHARLINE BOND Age 39 Years 1980 Sex Female Language Amharic PCP [address]GIN[address] Marital Status Med Service Emergency Medicine Acct# Arrival 05/03/2020 14:55:00 Visit Reason Body aches; LOSS TASTE ,SMELL,FEVER ,CHILLS,BODY ACHES,COUGH Acuity 4 - Non - Urgent LOS 000 02:07 Depart Date: 05/03/20 05:02 PM Address: [address] [place] [id number] Comment: PROVIDER INFORMATION Provider Role Assigned Unassigned FRANCOISE BARRETT, STEAK SAUCE MAKER-EMR ED Physician 05/03/2020 15:11:03 Jyoti Frazier, cd storage and materials make up helper Nurse 05/03/2020 15:21:47 DIAGNOSIS Viral illness PHYS DOC NOTES VITALS INFORMATION Vital Sign Triage Latest Temp Source Tympanic Oral Temp Mode Fahrenheit Fahrenheit Temp Fahrenheit 97.7 Deg F 97.7 Deg F Temp Celsius 02 Sat 99 % 99 % Respiratory Rate 18 Breaths/Min 18 Breaths/Min Peripheral Pulse Rate 84 bpm 84 bpm Apical Heart Rate Blood Pressure 145 mmHg / 90 mmHg 156 mmHg / 88 mmHg Comment: MEDICAL INFORMATION Allergy Info: fentaNYL; acetaminophen-oxyCODONE; Toradol; Bactrim; escitalopram; lidocaine topical 2% gel; tetanus immune globulin; baclofen; morphine; penicillin; clindamycin; doxycycline; meperidine Medications: Comment: DISCHARGE INFORMATION Discharge Disposition: Home Discharge Location: PATIENT EDUCATION INFORMATION Instructions: Viral Illness, Adult Follow up: With: Address: When: Follow up with primary care provider Within 2 to 3 days Comments: Please continue to monitor symptoms. Rest, fluids, and follow up with pcp in 1-2 days. Return to ER as needed. Comment: documented in this encounter Plan of Treatment Not on file documented as of this encounter Visit Diagnoses Not on filedocumented in this encounter Care Teams Garage Mechanic Relationship Specialty Start Date End Date Alan Beyer MD [address] [place] [address] PCP - General Family Medicine 06/08/23 documented as of this encounter
--- OUTSIDE RECORDS SUMMARY | 2024-11-05 10:18 | XMS_ITS | Encounter Summary ---
Author Organization [employer] Address [address] [place] [address] Care Team Providers Care Awning Hanger Helper Name Role Phone Alan Beyer MD Primary Care Provider [phone] Encounter Details Date Type Department Care Team (Late st Contact Info) Description 07/13/2021 Transcribed Document [facility] Family Medicine [place] [address] ProviderJessenia MD [address] [place] [address] Social History Tobacco Use Types Packs/Day Years Used Date Smoking Tobacco: Never Assessed Comments Unknown Sex and Gender Information Value Date Recorded Sex Assigned at Not on file Legal Sex Female 4:28 PM CDT Gender Identity Not on file Sexual Orientation Not on file documented as of this encounter Miscellaneous Notes * Cerner Conversion Note - Jessenia Alvarez MD - 07/13/2021 1:46 AM DRAPERY SEAMSTRESS ED Triage Entered On: 07/13/2021 1:55 EST Performed On: 07/13/2021 1:52 EST by OBEY MONROE, SOFTWARE DEVELOPER MANAGER Triage Across the Room Chief Complaint : Pt co generalized chest pain that is shooting across chest that began x 2 hours ago while laying down in bed. pt is calm alert skinpwd. Pt given 324mg aspirin, 4 mg zofran, and x 1 SL Nitro with some relief. By EMS Triage Date/Time : 07/13/2021 1:52 EST OBEY MONROE, RN - 07/13/2021 1:52 EST DCP GENERIC CODE Tracking Acuity : 2 - Emergent Tracking Group : [facility] ED East OBEY MONROE RN - 07/13/2021 1:52 EST Mode of Arrival : Stretcher Transported to ED by : Ambulance/ALS EMS Service : [facility] To Room Via : Stretcher Accompanied By : Significant other ED Vital Signs : Document Height & Weight : Document ED Allergies : Document ED Reason for Visit : Document Tetanus Immunization : Unknown OBEY MONROE RN - 07/13/2021 1:52 EST Infectious Disease History Does patient have symptoms of COVID-19? : No Has the Patient Been Tested for COVID-19 in the last 14 days? : No, Patient stated Does the Patient state known exposure to a COVID-19 positive case in the last 14 days? : No Patient Vaccinated for COVID-19 : Fully vaccinated OBEY MONROE RN - 07/13/2021 1:52 EST Infectious Disease Risk Screening Grid Cough [...] day) : NO OBEY MONROE RN - 07/13/2021 1:52 EST Physical contact outside US in the last 30 days : No Hospitalized in Foreign Country : No Infectious Disease History : Chicken pox/Shingles, Herpes, Influenza, Mononucleosis INF Disease TB Screening Calc : 0 INF Disease Recent Travel Calc : 0 OBEY MONROE RN - 07/13/2021 1:52 EST Vital Signs ED Temperature Source : Oral Temperature Mode : Fahrenheit Temperature, Fahrenheit : 98.0 Deg F ED Pain : Yes Clinical Temperature, C : 36.7 Deg C Oxygen Therapy Mode : Room air Peripheral Pulse Rate : 84 bpm Respiratory Rate : 18 Breaths/Min Systolic Blood Pressure : 169 mmHg (HI) Diastolic Blood Pressure : 105 mmHg (HI) Oxygen Saturation : 100 % OBEY MONROE RN - 07/13/2021 1:52 EST Allergy (As Of: 07/13/2021 01:55:14 EST) Allergies (Active) acetaminophen-oxyCODONE Estimated Onset Date: Unspecified ; Comments: Comment 1: throws up and itching ; Created By: Breanna Ivey Rn; Reaction Status: Active ; Category: Drug ; Substance: acetaminophen-oxyCODONE ; Severity: Severe ; Updated By: Breanna Ivey Rn; Source: Patient ; Reviewed Date: 05/30/2021 19:37 EST baclofen Estimated Onset Date: Unspecified ; Comments: Comment 1: hives and cant breath ; Created By: Breanna Ivey Rn; Reaction Status: Active ; Category: Drug ; Substance: baclofen ; Type: Allergy ; Updated By: Breanna Ivey Rn; Reviewed Date: 05/30/2021 19:37 EST Bactrim Estimated Onset Date: Unspecified ; Comments: Comment 1: hives not breathing ; Created By: Breanna Ivey Rn; Reaction Status: Active ; Category: Drug ; Substance: Bactrim ; Type: Allergy ; Severity: Severe ; Updated By: Breanna Ivey Rn; Source: Patient ; Reviewed Date: 05/30/2021 19:37 EST clindamycin Estimated Onset Date: Unspecified ; Comments: Comment 1: Hives, vomiting ; Created By: Talia Eason RN; Reaction Status: Active ; Category: Drug ; Substance: clindamycin ; Type: Allergy ; Severity: Severe ; Updated By: Talia Eason RN; Reviewed Date: 05/30/2021 19:37 EST doxycycline Estimated Onset Date: Unspecified ; Comments: Comment 1: hives and projectile vomiting ; Created By: Breanna Ivey Rn; Reaction Status: Active ; Category: Drug ; Substance: doxycycline ; Type: Allergy ; Updated By: Breanna Ivey Rn; Reviewed Date: 05/30/2021 19:37 EST escitalopram Estimated Onset Date: Unspecified ; Comments: Comment 1: unknown ; Created By: Breanna Ivey Rn; Reaction Status: Active ; Category: Drug ; Substance: escitalopram ; Type: Allergy ; Updated By: Breanna Ivey Rn; Reviewed Date: 05/30/2021 19:37 EST fentaNYL Estimated Onset Date: Unspecified ; Comments: Comment 1: hallucinate and cry ; Created By: Breanna Ivey Rn; Reaction Status: Active ; Category: Drug ; Substance: fentaNYL ; Type: Allergy ; Updated By: Breanna Ivey Rn; Reviewed Date: 05/30/2021 19:37 EST lidocaine topical 2% gel Estimated Onset Date: Unspecified ; Comments: Comment 1: severe swelling, itching, rash ; Created By: Breanna Ivey Rn; Reaction Status: Active ; Category: Drug ; Substance: lidocaine topical 2% gel ; Type: Allergy ; Updated By: Breanna Ivey Rn; Reviewed Date: 05/30/2021 19:37 EST meperidine Estimated Onset Date: Unspecified ; Comments: Comment 1: hallucinations and angry ; Created By: Breanna Ivey Rn; Reaction Status: Active ; Category: Drug ; Substance: meperidine ; Type: Allergy ; Updated By: Breanna Ivey Rn; Reviewed Date: 05/30/2021 19:37 EST morphine Estimated Onset Date: Unspecified ; Comments: Comment 1: severe itching ; Created By: Breanna Ivey Rn; Reaction Status: Active ; Category: Drug ; Substance: morphine ; Type: Allergy ; Updated By: Breanna Ivey Rn; Reviewed Date: 05/30/2021 19:37 EST penicillin Estimated Onset Date: Unspecified ; Reactions: Hives ; Comments: Comment 1: hives Comment 2: Pt has tolerated cefoxitin in 06/30, 06/01, and trying cefazolin 05/01 ; Created By: JAME ZUNIGA PharmD; Reaction Status: Active ; Category: Drug ; Substance: penicillin ; Type: Allergy ; Updated By: JAME ZUNIGA PharmD; Reviewed Date: 05/30/2021 19:37 EST tetanus immune globulin Estimated Onset Date: Unspecified ; Comments: Comment 1: adverse reaction I get tetanus and my body will swell up ; Created By: Breanna Ivey Rn; Reaction Status: Active ; Category: Drug ; Substance: tetanus immune globulin ; Type: Allergy ; Updated By: Breanna Ivey Rn; Reviewed Date: 05/30/2021 19:37 EST Toradol Estimated Onset Date: Unspecified ; Comments: Comment 1: feels like a softball in chest and my chest goes numb ; Created By: Breanna Ivey Rn; Reaction Status: Active ; Category: Drug ; Substance: Toradol ; Type: Allergy ; Updated By: Breanna Ivey Rn; Reviewed Date: 05/30/2021 19:37 EST Diagnosis Control ED (As Of: 07/13/2021 01:55:14 EST) Problems(Active) Anxiety (SNOMED CT :39506070 ) Name of Problem: Anxiety ; Recorder: ERICKA ISSA RN; Confirmation: Confirmed ; Classification: Medical ; Code: [id number] ; Contributor System: PowerChart ; Last Updated: 07/26/2015 22:28 EDT ; Life Cycle Date: 07/26/2015 ; Life Cycle Status: Active ; Vocabulary: SNOMED CT Endometriosis, vagina (SNOMED CT :66681932 ) Name of Problem: Endometriosis, vagina ; Recorder: Breanna Ivey RN; Confirmation: Confirmed ; Classification: Medical ; Code: [id number] ; Contributor System: PowerChart ; Last Updated: 05/24/2018 10:54 EST ; Life Cycle Date: 05/24/2018 ; Life Cycle Status: Active ; Vocabulary: SNOMED CT Kidney stones (SNOMED CT :792496660 ) Name of Problem: Kidney stones ; Recorder: KAYY ANDREW; Confirmation: Confirmed ; Classification: Medical ; Code: [id number] ; Contributor System: PowerChart ; Last Updated: 06/06/2016 9:30 EST ; Life Cycle Date: 06/06/2016 ; Life Cycle Status: Active ; Vocabulary: SNOMED CT Migraine (SNOMED CT :37209737 ) Name of Problem: Migraine ; Recorder: ERICKA ISSA RN; Confirmation: Confirmed ; Classification: Medical ; Code: 99912477 ; Contributor System: PowerChart ; Last Updated: 07/26/2015 22:28 EDT ; Life Cycle Date: 07/26/2015 ; Life Cycle Status: Active ; Vocabulary: SNOMED CT S/P hysterectomy (SNOMED CT :860069127 ) Name of Problem: S/P hysterectomy ; Recorder: LEONID CASTANEDA RN; Confirmation: Confirmed ; Classification: Medical ; Code: [id number] ; Contributor System: PowerChart ; Last Updated: 11/06/2019 20:08 EDT ; Life Cycle Date: 11/06/2019 ; Life Cycle Status: Active ; Vocabulary: SNOMED CT Shoulder pain, left (SNOMED CT :37948964 ) Name of Problem: Shoulder pain, left ; Recorder: Breanna Ivey RN; Confirmation: Confirmed ; Classification: Medical ; Code: [id number] ; Contributor System: PowerChart ; Last Updated: 05/24/2018 10:53 EST ; Life Cycle Date: 05/24/2018 ; Life Cycle Status: Active ; Vocabulary: SNOMED CT Diagnoses(Active) Chest pain Date: 07/13/2021 ; Diagnosis Type: Reason For Visit ; Confirmation: Complaint of ; Clinical Dx: Chest pain ; Classification: Medical ; Clinical Service: Emergency medicine ; Code: PNED ; Probability: 0 ; Diagnosis Code: [id number] ED Height and Weight Height Source : Measured Height Entry Format : [place] Height, Feet : 5 ft(Converted to: 152 cm, 60 Inch) Height, Inches : 5 Inch(Converted to: 0 ft 5 Inch, 12.70 cm) Clinical Height : 165.1 cm Weight Source, ED : Critical estimated dosing weight Weight Entry Format : [place] Weight, Pounds : 168 lb Clinical Dosing Weight : 76.36 kg Body Surface Area (BSA) : 1.84 m2 Body Mass Index : 28 kg/m2 (HI) [place] Body Weight (IBW) : 56.59 kg OBEY MONROE RN - 07/13/2021 1:52 EST Pain Assessment Pain Assessment : Initial assessment Pain Scale Used : 0-10 Scale OBEY MONROE RN - 07/13/2021 1:52 EST Pain Scale Intensity : 9 OBEY MONROE RN - 07/13/2021 1:52 EST Image 4 - Images currently included in the form version of this document have not been included in the text rendition version of the form. documented in this encounter Plan of Treatment Not on file documented as of this encounter Visit Diagnoses Not on filedocumented in this encounter Care Teams Awning Hanger Helper Relationship Specialty Start Date End Date Alan Beyer MD [address] [place] [address] PCP - General Family Medicine 06/08/23 documented as of this encounter
--- OUTSIDE RECORDS SUMMARY | 2024-11-05 10:18 | XMS_ITS | Encounter Summary ---
Author Organization [employer] Address [address] [place] [address] Care Team Providers Care Drawbridge Tender Name Role Phone Alan Beyer MD Primary Care Provider [phone] Encounter Details Date Type Department Care Team (Late st Contact Info) Description 05/03/2020 Transcribed Document [facility] Family Medicine [facility] [place] [address] ProviderJessenia MD [address] [place] [address] Social History Tobacco Use Types [...] Jessenia Alvarez MD - 05/03/2020 2:55 PM MANAGER OF RECRUITING ED Triage Entered On: 05/03/2020 15:20 EST Performed On: 05/03/2020 15:18 EST by PASCUAL HANKINS ED Triage Across the Room Chief Complaint : Woke up with fever and body aches today. Was tested for Covid yesterday and awaiting results Triage Date/Time : 05/03/2020 15:18 EST PASCUAL HANKINS - 05/03/2020 15:18 EST DCP GENERIC CODE Tracking Acuity : 4 - Non - Urgent Tracking Group : [facility] ED [facility] PASCUAL HANKINS - 05/03/2020 15:18 EST Mode of Arrival : Ambulatory Transported to ED by : Private vehicle To Room Via : Ambulate Accompanied By : Unaccompanied ED Vital Signs : Document Height & Weight : Document ED Allergies : Document ED Reason for Visit : Document Tetanus Immunization : Unknown PASCUAL HANKINS - 05/03/2020 15:18 EST Infectious Disease History Has the patient ever been tested for COVID-19? : Yes, Patient stated results pending Date of COVID-19 test known? : Yes Date of COVID-19 Test : 05/02/2020 EST Does patient have symptoms of COVID-19? : Yes COVID19 Screening : No Experiencing Infectious Disease Symptoms : Headache Physical contact outside [place] in the last 30 days : No Infectious Disease History : Chicken pox/Shingles, Herpes, Influenza, Mononucleosis Tuberculosis Symptoms : None Otto PASCUAL 05/03/2020 15:18 EST Vital Signs ED Temperature Source : Tympanic Temperature Mode : Fahrenheit Temperature, Fahrenheit : 97.7 Deg F Clinical Temperature, C : 36.5 Deg C Peripheral Pulse Rate : 84 bpm Respiratory Rate : 18 Breaths/Min Systolic Blood Pressure : 145 mmHg (HI) Diastolic Blood Pressure : 90 mmHg Oxygen Saturation : 99 % NHI PASCUAL 05/03/2020 15:18 EST Allergy (As Of: 05/03/2020 15:20:23 EST) Allergies (Active) acetaminophen-oxyCODONE Estimated Onset Date: Unspecified ; Comments: Comment 1: throws up and itching ; Created By: Breanna Ivey Rn; Reaction Status: Active ; Category: Drug ; Substance: acetaminophen-oxyCODONE ; Severity: Severe ; Updated By: Breanna Ivey Rn; Source: Patient ; Reviewed Date: 03/16/2020 15:13 EST baclofen Estimated Onset Date: Unspecified ; Comments: Comment 1: hives and cant breath ; Created By: Breanna Ivey Rn; Reaction Status: Active ; Category: Drug ; Substance: baclofen ; Type: Allergy ; Updated By: Breanna Ivey Rn; Reviewed Date: 03/16/2020 15:13 EST Bactrim Estimated Onset Date: Unspecified ; Comments: Comment 1: hives not breathing ; Created By: Breanna Ivey Rn; Reaction Status: Active ; Category: Drug ; Substance: Bactrim ; Type: Allergy ; Severity: Severe ; Updated By: Breanna Ivey Rn; Source: Patient ; Reviewed Date: 03/16/2020 15:13 EST clindamycin Estimated Onset Date: Unspecified ; Comments: Comment 1: Hives, vomiting ; Created By: Talia Eason RN; Reaction Status: Active ; Category: Drug ; Substance: clindamycin ; Type: Allergy ; Severity: Severe ; Updated By: Talia Eason RN; Reviewed Date: 03/16/2020 15:13 EST doxycycline Estimated Onset Date: Unspecified ; Comments: Comment 1: hives and projectile vomiting ; Created By: Breanna Ivey Rn; Reaction Status: Active ; Category: Drug ; Substance: doxycycline ; Type: Allergy ; Updated By: Breanna Ivey Rn; Reviewed Date: 03/16/2020 15:13 EST escitalopram Estimated Onset Date: Unspecified ; Comments: Comment 1: unknown ; Created By: Breanna Ivey Rn; Reaction Status: Active ; Category: Drug ; Substance: escitalopram ; Type: Allergy ; Updated By: Breanna Ivey Rn; Reviewed Date: 03/16/2020 15:13 EST fentaNYL Estimated Onset Date: Unspecified ; Comments: Comment 1: hallucinate and cry ; Created By: Breanna Ivey Rn; Reaction Status: Active ; Category: Drug ; Substance: fentaNYL ; Type: Allergy ; Updated By: Breanna Ivey Rn; Reviewed Date: 03/16/2020 15:13 EST lidocaine topical 2% gel Estimated Onset Date: Unspecified ; Comments: Comment 1: severe swelling, itching, rash ; Created By: Breanna Ivey Rn; Reaction Status: Active ; Category: Drug ; Substance: lidocaine topical 2% gel ; Type: Allergy ; Updated By: Breanna Ivey Rn; Reviewed Date: 03/16/2020 15:13 EST meperidine Estimated Onset Date: Unspecified ; Comments: Comment 1: hallucinations and angry ; Created By: Breanna Ivey Rn; Reaction Status: Active ; Category: Drug ; Substance: meperidine ; Type: Allergy ; Updated By: Breanna Ivey Rn; Reviewed Date: 03/16/2020 15:13 EST morphine Estimated Onset Date: Unspecified ; Comments: Comment 1: severe itching ; Created By: Breanna Ivey Rn; Reaction Status: Active ; Category: Drug ; Substance: morphine ; Type: Allergy ; Updated By: Breanna Ivey Rn; Reviewed Date: 03/16/2020 15:13 EST penicillin Estimated Onset Date: Unspecified ; Reactions: Hives ; Comments: Comment 1: hives Comment 2: Pt has tolerated cefoxitin in 06/30, 06/01, and trying cefazolin 05/01 ; Created By: JAME ZUNIGA PharmD; Reaction Status: Active ; Category: Drug ; Substance: penicillin ; Type: Allergy ; Updated By: JAME ZUNIGA PharmD; Reviewed Date: 03/16/2020 15:13 EST tetanus immune globulin Estimated Onset Date: Unspecified ; Comments: Comment 1: adverse reaction I get tetanus and my body will swell up ; Created By: Breanna Ivey Rn; Reaction Status: Active ; Category: Drug ; Substance: tetanus immune globulin ; Type: Allergy ; Updated By: Breanna Ivey Rn; Reviewed Date: 03/16/2020 15:13 EST Toradol Estimated Onset Date: Unspecified ; Comments: Comment 1: feels like a softball in chest and my chest goes numb ; Created By: Breanna Ivey Rn; Reaction Status: Active ; Category: Drug ; Substance: Toradol ; Type: Allergy ; Updated By: Breanna Ivey Rn; Reviewed Date: 03/16/2020 15:13 EST Diagnosis Control ED (As Of: 05/03/2020 15:20:23 EST) Problems(Active) Anxiety (SNOMED CT :83890879 ) Name of Problem: Anxiety ; Recorder: ERICKA ISSA RN; Confirmation: Confirmed ; Classification: Medical ; Code: 90590695 ; Contributor System: TELOSChart ; Last Updated: 07/26/2015 22:28 EDT ; Life Cycle Date: 07/26/2015 ; Life Cycle Status: Active ; Vocabulary: SNOMED CT Endometriosis, vagina (SNOMED CT :72581922 ) Name of Problem: Endometriosis, vagina ; Recorder: Breanna Ivey RN; Confirmation: Confirmed ; Classification: Medical ; Code: [id number] ; Contributor System: PowerChart ; Last Updated: 05/24/2018 10:54 EST ; Life Cycle Date: 05/24/2018 ; Life Cycle Status: Active ; Vocabulary: SNOMED CT Kidney stones (SNOMED CT :432059588 ) Name of Problem: Kidney stones ; Recorder: KAYY ANDREW; Confirmation: Confirmed ; Classification: Medical ; Code: 237489390 ; Contributor System: PowerChart ; Last Updated: 06/06/2016 9:30 EST ; Life Cycle Date: 06/06/2016 ; Life Cycle Status: Active ; Vocabulary: SNOMED CT Migraine (SNOMED CT :93499821 ) Name of Problem: Migraine ; Recorder: ERICKA ISSA RN; Confirmation: Confirmed ; Classification: Medical ; Code: 17430185 ; Contributor System: PowerChart ; Last Updated: 07/26/2015 22:28 EDT ; Life Cycle Date: 07/26/2015 ; Life Cycle Status: Active ; Vocabulary: SNOMED CT S/P hysterectomy (SNOMED CT :696017737 ) Name of Problem: S/P hysterectomy ; Recorder: LEONID CASTANEDA RN; Confirmation: Confirmed ; Classification: Medical ; Code: [id number] ; Contributor System: TELOSChart ; Last Updated: 11/06/2019 20:08 EDT ; Life Cycle Date: 11/06/2019 ; Life Cycle Status: Active ; Vocabulary: SNOMED CT Shoulder pain, left (SNOMED CT :19767340 ) Name of Problem: Shoulder pain, left ; Recorder: Breanna Ivey RN; Confirmation: Confirmed ; Classification: Medical ; Code: 60245191 ; Contributor System: PowerChart ; Last Updated: 05/24/2018 10:53 EST ; Life Cycle Date: 05/24/2018 ; Life Cycle Status: Active ; Vocabulary: SNOMED CT Diagnoses(Active) Body aches Date: 05/03/2020 ; Diagnosis Type: Reason For Visit ; Confirmation: Complaint of ; Clinical Dx: Body aches ; Classification: Medical ; Clinical Service: Emergency medicine ; Code: PNED ; Probability: 0 ; Diagnosis Code: [id number] ED Height and Weight Height Source : Stated Height Entry Format : [place] Height, Feet : 5 ft(Converted to: 152 cm, 60 Inch) Height, Inches : 5 Inch(Converted to: 0 ft 5 Inch, 12.70 cm) Clinical Height : 165.1 cm Weight Source, ED : Critical estimated dosing weight Weight Entry Format : [place] Weight, Pounds : 160 lb Clinical Dosing Weight : 72.73 kg Body Surface Area (BSA) : 1.8 m2 Body Mass Index : 26.7 kg/m2 (HI) [place] Body Weight (IBW) : 56.59 kg PASCUAL HANKINS - 05/03/2020 15:18 EST Electronically signed by [facility] Conversion Senior [employer] at 08/31/2022 5:21 PM CDT documented in this encounter Plan of Treatment Not on file documented as of this encounter Visit Diagnoses Not on filedocumented in this encounter Care Teams Drawbridge Tender Relationship Specialty Start Date End Date Alan Beyer MD [address] [place] [address] PCP - General Family Medicine 06/08/23 documented as of this encounter
--- OUTSIDE RECORDS SUMMARY | 2024-11-05 10:18 | XMS_ITS | Encounter Summary ---
Author Organization [employer] Address [address] [place] [address] Care Team Providers Care Director Graphics Name Role Phone Alan Beyer MD Primary Care Provider [phone] Encounter Details Date Type Department Care Team (Late st Contact Info) Description 07/13/[address] [facility] Family Medicine [facility] [place] [address] ProviderJessenia MD [address] [place] [address] Social History Tobacco Use Types Packs/Day Years Used Date Smoking Tobacco: Never Assessed Comments Unknown Sex and Gender Information Value Date Recorded Sex Assigned at Not on file Legal Sex Female 4:28 PM CDT Gender Identity Not on file Sexual Orientation Not on file documented as of this encounter Miscellaneous Notes * Cerner Conversion Note - Jessenia Alvarez MD - 07/13/2021 4:02 PM PATIENT SITTER Stroke/Warfarin Instructions Entered On: 07/13/2021 16:02 EST Performed On: 07/13/2021 16:02 EST by Martita Skinner RN-PATIENT CARE BEDSIDE NON-EXEMPT Stroke/Warfarin Instructions Stroke/TIA Discharge Ins : N/A Warfarin Discharge Ins : N/A Martita Skinner RN-PATIENT CARE BEDSIDE NON-EXEMPT - 07/13/2021 16:02 EST documented in this encounter Plan of Treatment Not on file documented as of this encounter Visit Diagnoses Not on filedocumented in this encounter Care Teams Director Graphics Relationship Specialty Start Date End Date Alan Beyer MD [address] [place] [address] PCP - General Family Medicine 06/08/23 documented as of this encounter
--- OUTSIDE RECORDS SUMMARY | 2024-11-05 10:18 | XMS_ITS | Encounter Summary ---
Author Organization [employer] Address [address] [place] [address] Care Team Providers Care Hospice Care Consultant Name Role Phone Alan Beyer MD Primary Care Provider [phone] Encounter Details Date Type Department Care Team (Late st Contact Info) Description 08/01/2020 Transcribed Document [facility] [place] [place] Family Medicine [facility] [place] [address] ProviderJesesnia MD [address] [place], [place] [address] Social History Tobacco Use Types Packs/Day Years Used Date Smoking Tobacco: Never Assessed Comments Unknown Sex and Gender Information Value Date Recorded Sex Assigned at Not on file Legal Sex Female 4:28 PM CDT Gender Identity Not on file Sexual Orientation Not on file documented as of this encounter Miscellaneous Notes * Cerner Conversion Note - Jessenia Alvarez MD - 08/01/2020 9:08 PM CDT ED Discharge Entered On: 08/01/2020 21:08 EDT Performed On: 08/01/2020 21:08 EDT by JEANNA BARROSO RN Discharge Process Patient Disposition : Discharge Personal Belongings With Patient : Yes Patient Education Completed : Yes IV Discontinued : Yes Nursing Documentation Completed : Yes JEANNA BARROSO RN - 08/01/2020 21:08 EDT ED Discharge Discharge To : Home with ambulatory/outpatient follow-up Mode Of Departure : Ambulatory Discharge Instructions Reviewed With, Opportunity For Questions Given : Significant other Prescriptions Given to Patient : No JEANNA BARROSO RN - 08/01/2020 21:08 EDT documented in this encounter Plan of Treatment Not on file documented as of this encounter Visit Diagnoses Not on filedocumented in this encounter Care Teams Hospice Care Consultant Relationship Specialty Start Date End Date Alan Beyer MD [address] [place] [address] PCP - General Family Medicine 06/08/23 documented as of this encounter
--- OUTSIDE RECORDS SUMMARY | 2024-11-05 10:18 | XMS_ITS | Encounter Summary ---
Author Organization [employer] Address [address] [place] [address] Care Team Providers Care Durable Medical Equipment Technician Name Role Phone Alan Beyer MD Primary Care Provider [phone] Encounter Details Date Type Department Care Team (Late st Contact Info) Description 10/20/2018 Transcribed Document [facility] Family Medicine [facility] [place] [address] ProviderJessenia MD [address] [place] [address] Social History Tobacco Use Types Packs/Day Years Used Date Smoking Tobacco: Never Assessed Comments Unknown Sex and Gender Information Value Date Recorded Sex Assigned at Not on file Legal Sex Female 4:28 PM CDT Gender Identity Not on file Sexual Orientation Not on file documented as of this encounter Miscellaneous Notes * Cerner Conversion Note - Jessenia Alvarez MD - 10/20/2018 4:55 PM CDT ED Triage Entered On: 10/20/2018 17:14 EDT Performed On: 10/20/2018 17:11 EDT by Charline Love RN ED Triage Across the Room Triage Date/Time : 10/20/2018 17:11 EDT Chief Complaint : Pt c/o decreased appetite x5 days, diarrhea, nausea, vomitng, dizziness starting yesterday. Charline Love RN - 10/20/2018 17:11 EDT DCP GENERIC CODE Tracking Acuity : 3 - Urgent Tracking Group : [facility] ED [place] Charline Love RN - 10/20/2018 17:11 EDT Mode of Arrival : Ambulatory Transported to ED by : Private vehicle To Room Via : Ambulate Accompanied By : Daughter ED Vital Signs : Document Height & Weight : Document ED Allergies : Document ED Reason for Visit : Document Status : Hysterectomy Tetanus Immunization : Unknown Charline Love RN - 10/20/2018 17:11 EDT Infectious Disease History Infectious Disease History : Chicken pox/Shingles, Herpes Fever/Chills Last 48 Hours : No Travel To Regions with Travel Advisories : No Travel Outside [place] Within Last 30 Days : No Contact With Traveler to Advisory Region : No Tuberculosis Symptoms : None Charline Love RN - 10/20/2018 17:11 EDT Vital Signs ED Temperature Source : Oral Temperature Mode : Fahrenheit Temperature, Fahrenheit : 98.2 Deg F ED Pain : Yes Clinical Temperature, C : 36.8 Deg C Oxygen Therapy Mode : Room air Peripheral Pulse Rate : 91 bpm Respiratory Rate : 16 Breaths/Min Systolic Blood Pressure : 141 mmHg (HI) Diastolic Blood Pressure : 82 mmHg Oxygen Saturation : 100 % Charline Love RN - 10/20/2018 17:11 EDT Allergy (As Of: 10/20/2018 17:14:24 EDT) Allergies (Active) acetaminophen-oxyCODONE Estimated Onset Date: Unspecified ; Comments: Comment 1: throws up and itching ; Created By: Breanna Ivey Rn; Reaction Status: Active ; Category: Drug ; Substance: acetaminophen-oxyCODONE ; Severity: Severe ; Updated By: Breanna Ivey Rn; Source: Patient ; Reviewed Date: 10/20/2018 17:13 EDT baclofen Estimated Onset Date: Unspecified ; Comments: Comment 1: hives and cant breath ; Created By: Breanna Ivey Rn; Reaction Status: Active ; Category: Drug ; Substance: baclofen ; Type: Allergy ; Updated By: Breanna Ivey Rn; Reviewed Date: 10/20/2018 17:13 EDT Bactrim Estimated Onset Date: Unspecified ; Comments: Comment 1: hives not breathing ; Created By: Breanna Ivey Rn; Reaction Status: Active ; Category: Drug ; Substance: Bactrim ; Type: Allergy ; Severity: Severe ; Updated By: Breanna Ivey Rn; Source: Patient ; Reviewed Date: 10/20/2018 17:13 EDT clindamycin Estimated Onset Date: Unspecified ; Created By: Isi Khoury Rn; Reaction Status: Active ; Category: Drug ; Substance: clindamycin ; Type: Allergy ; Severity: Severe ; Updated By: Isi Khoury Rn; Reviewed Date: 10/20/2018 17:13 EDT doxycycline Estimated Onset Date: Unspecified ; Comments: Comment 1: hives and projectile vomiting ; Created By: Breanna Ivey Rn; Reaction Status: Active ; Category: Drug ; Substance: doxycycline ; Type: Allergy ; Updated By: Breanna Ivey Rn; Reviewed Date: 10/20/2018 17:13 EDT escitalopram Estimated Onset Date: Unspecified ; Comments: Comment 1: unknown ; Created By: Breanna Ivey Rn; Reaction Status: Active ; Category: Drug ; Substance: escitalopram ; Type: Allergy ; Updated By: Breanna Ivey Rn; Reviewed Date: 10/20/2018 17:13 EDT fentaNYL Estimated Onset Date: Unspecified ; Comments: Comment 1: hallucinate and cry ; Created By: Breanna Ivey Rn; Reaction Status: Active ; Category: Drug ; Substance: fentaNYL ; Type: Allergy ; Updated By: Breanna Ivey Rn; Reviewed Date: 10/20/2018 17:13 EDT lidocaine topical 2% gel Estimated Onset Date: Unspecified ; Comments: Comment 1: severe swelling, itching, rash ; Created By: Breanna Ivey Rn; Reaction Status: Active ; Category: Drug ; Substance: lidocaine topical 2% gel ; Type: Allergy ; Updated By: Breanna Ivey Rn; Reviewed Date: 10/20/2018 17:13 EDT meperidine Estimated Onset Date: Unspecified ; Comments: Comment 1: hallucinations and angry ; Created By: Breanna Ivey Rn; Reaction Status: Active ; Category: Drug ; Substance: meperidine ; Type: Allergy ; Updated By: Breanna Ivey Rn; Reviewed Date: 10/20/2018 17:13 EDT morphine Estimated Onset Date: Unspecified ; Comments: Comment 1: severe itching ; Created By: Breanna Ivey Rn; Reaction Status: Active ; Category: Drug ; Substance: morphine ; Type: Allergy ; Updated By: Breanna Ivey Rn; Reviewed Date: 10/20/2018 17:13 EDT penicillin Estimated Onset Date: Unspecified ; Comments: Comment 1: hives ; Created By: Breanna Ivey Rn; Reaction Status: Active ; Category: Drug ; Substance: penicillin ; Type: Allergy ; Updated By: Breanna Ivey Rn; Reviewed Date: 10/20/2018 17:13 EDT tetanus immune globulin Estimated Onset Date: Unspecified ; Comments: Comment 1: adverse reaction I get tetanus and my body will swell up ; Created By: Breanna Ivey Rn; Reaction Status: Active ; Category: Drug ; Substance: tetanus immune globulin ; Type: Allergy ; Updated By: Breanna Ivey Rn; Reviewed Date: 10/20/2018 17:13 EDT Toradol Estimated Onset Date: Unspecified ; Comments: Comment 1: feels like a softball in chest and my chest goes numb ; Created By: Breanna Ivey Rn; Reaction Status: Active ; Category: Drug ; Substance: Toradol ; Type: Allergy ; Updated By: Breanna Ivey Rn; Reviewed Date: 10/20/2018 17:13 EDT Diagnosis Control ED (As Of: 10/20/2018 17:14:24 EDT) Problems(Active) Anxiety (SNOMED CT :55710855 ) Name of Problem: Anxiety ; Recorder: ERICKA ISSA RN; Confirmation: Confirmed ; Classification: Medical ; Code: [id number] ; Contributor System: VR1 ; Last Updated: 07/26/2015 22:28 EDT ; Life Cycle Date: 07/26/2015 ; Life Cycle Status: Active ; Vocabulary: SNOMED CT Endometriosis, vagina (SNOMED CT :16643131 ) Name of Problem: Endometriosis, vagina ; Recorder: Breanna Ivey Rn; Confirmation: Confirmed ; Classification: Medical ; Code: 56539879 ; Contributor System: PowerChart ; Last Updated: 05/24/2018 10:54 EST ; Life Cycle Date: 05/24/2018 ; Life Cycle Status: Active ; Vocabulary: SNOMED CT Kidney stones (SNOMED CT :859090054 ) Name of Problem: Kidney stones ; Recorder: KAYY ANDREW; Confirmation: Confirmed ; Classification: Medical ; Code: [id number] ; Contributor System: PowerChart ; Last Updated: 06/06/2016 9:30 EST ; Life Cycle Date: 06/06/2016 ; Life Cycle Status: Active ; Vocabulary: SNOMED CT Migraine (SNOMED CT :69600241 ) Name of Problem: Migraine ; Recorder: ERICKA ISSA RN; Confirmation: Confirmed ; Classification: Medical ; Code: 80581875 ; Contributor System: VR1 ; Last Updated: 07/26/2015 22:28 EDT ; Life Cycle Date: 07/26/2015 ; Life Cycle Status: Active ; Vocabulary: SNOMED CT Shoulder pain, left (SNOMED CT :05869784 ) Name of Problem: Shoulder pain, left ; Recorder: Breanna Ivey Rn; Confirmation: Confirmed ; Classification: Medical ; Code: 45235553 ; Contributor System: [employer]Chart ; Last Updated: 05/24/2018 10:53 EST ; Life Cycle Date: 05/24/2018 ; Life Cycle Status: Active ; Vocabulary: SNOMED CT Diagnoses(Active) Dizziness Date: 10/20/2018 ; Diagnosis Type: Reason For Visit ; Confirmation: Complaint of ; Clinical Dx: Dizziness ; Classification: Medical ; Clinical Service: Emergency medicine ; Code: PNED ; Probability: 0 ; Diagnosis Code: [id number] ED Height and Weight Height Source : Stated Height Entry Format : [place] Height, Feet : 5 ft(Converted to: 152 cm, 60 Inch) Height, Inches : 5 Inch(Converted to: 0 ft 5 Inch, 12.70 cm) Clinical Height : 165.1 cm Weight Source, ED : Standing scale Weight Entry Format : [place] Weight, Pounds : 165 lb Clinical Dosing Weight : 75 kg Body Surface Area (BSA) : 1.82 m2 Body Mass Index : 27.5 kg/m2 (HI) [place] Body Weight (IBW) : 56.59 kg Charline Love RN - 10/20/2018 17:11 EDT Pain Assessment Pain Assessment : Initial assessment Location : Abdominal Charline Love RN - 10/20/2018 17:11 EDT documented in this encounter Plan of Treatment Not on file documented as of this encounter Visit Diagnoses Not on filedocumented in this encounter Care Teams Durable Medical Equipment Technician Relationship Specialty Start Date End Date Alan Beyer MD [address] [place] [address] PCP - General Family Medicine 06/08/23 documented as of this encounter
--- OUTSIDE RECORDS SUMMARY | 2024-11-05 10:18 | XMS_ITS | Encounter Summary ---
Author Organization [employer] Address [address] [place] [address] Care Team Providers Care Japanese Professor Name Role Phone Alan Beyer MD Primary Care Provider [phone] Encounter Details Date Type Department Care Team (Late st Contact Info) Description 07/13/2021 Transcribed Document [facility] [place] [facility] [address] ProviderJessenia MD [address] [place] [address] Social History Tobacco Use Types Packs/Day Years Used Date Smoking Tobacco: Never Assessed Comments Unknown Sex and Gender Information Value Date Recorded Sex Assigned at Not on file Legal Sex Female 4:28 PM CDT Gender Identity Not on file Sexual Orientation Not on file documented as of this encounter Miscellaneous Notes * [employer] Conversion Note - Jessenia Alvarez MD - 07/13/2021 1:58 PM ORTHOTIST OR PROSTHETIST Consult Phone Call Documentation Entered On: 07/13/2021 14:07 EST Performed On: 07/13/2021 13:58 EST by Shahab Lobo Patient Chip Mixing Machine Operator Phone Call for Consults Consult Phone Call/Page Attempt : First call Provider Service Notified Name : Cardiology Consult, Additional Information : consult placed with Shahab Cee Patient Chip Mixing Machine Operator - 07/13/2021 14:06 EST Electronically signed by Jannette [facility] Conversion Director Professional Services Cerner at 08/31/2022 5:12 PM CDT documented in this encounter Plan of Treatment Not on file documented as of this encounter Visit Diagnoses Not on filedocumented in this encounter Care Teams Japanese Professor Relationship Specialty Start Date End Date Alan Beyer MD [address] [place] [address] PCP - General Family Medicine 06/08/23 documented as of this encounter
--- OUTSIDE RECORDS SUMMARY | 2024-11-05 10:18 | XMS_ITS | Encounter Summary ---
Author Organization [employer] Address [address] [place] [address] Care Team Providers Care Air Traffic Control Equipment Repairer Name Role Phone Alan Beyer MD Primary Care Provider [phone] Encounter Details Date Type Department Care Team (Late st Contact Info) Description 07/13/2021 Transcribed Document [facility] [place] Family [place] [facility] [place] [address] ProviderJessenia MD [address] [place], [place] [address] Social History Tobacco Use Types Packs/Day Years Used Date Smoking Tobacco: Never Assessed Comments Unknown Sex and Gender Information Value Date Recorded Sex Assigned at Not on file Legal Sex Female 4:28 PM CDT Gender Identity Not on file Sexual Orientation Not on file documented as of this encounter Miscellaneous Notes * Cerner Conversion Note - Jessenia Alvarez MD - 07/13/2021 4:27 PM REFINERY OPERATOR POLYMERIZATION PLANT Nursing Discharge Summary Entered On: 07/13/2021 16:28 EST Performed On: 07/13/2021 16:27 EST by Martita Skinner RN-PATIENT CARE BEDSIDE NON-EXEMPT Discharge Documentation Discharge Date/Time : 07/13/2021 16:25 EST Patient Disposition, General : Discharge Discharge To : Home with ambulatory/outpatient follow-up Mode Of Departure, General Discharge : Private vehicle Accompanied By, Discharge : Mother IV Discontinued : Yes Personal Belongings With Patient : Yes Pt's Own Supply of Medications Returned : No patient supply of medications to return Prescriptions Given to Patient : No Medications Given to Patient : No Discharge Instructions Reviewed With, Opportunity For Questions Given : Patient Patient Education Completed : Yes Teaching Method : Explanation Teaching Evaluation : Verbalizes understanding Martita Skinner RN-PATIENT CARE BEDSIDE NON-EXEMPT - 07/13/2021 16:27 EST Electronically signed by Jannette [facility] Conversion Chief Lock Operator Cerner at 08/31/2022 5:23 PM CDT documented in this encounter Plan of Treatment Not on file documented as of this encounter Visit Diagnoses Not on filedocumented in this encounter Care Teams Air Traffic Control Equipment Repairer Relationship Specialty Start Date End Date Alan Beyer MD [address] [place] [address] PCP - General Family Medicine 06/08/23 documented as of this encounter
--- OUTSIDE RECORDS SUMMARY | 2024-11-05 10:18 | XMS_ITS | Encounter Summary ---
Author Organization [employer] Address [address] [place] [address] Care Team Providers Care Vp Outcomes Name Role Phone Alan Beyer MD Primary Care Provider [phone] Encounter Details Date Type Department Care Team (Late st Contact Info) Description 08/01/2020 Transcribed Document [facility] [place] Family Medicine [address] [place] [address] ProviderJessenia MD [address] [place] [address] Social History Tobacco Use Types Packs/Day Years Used Date Smoking Tobacco: Never Assessed Comments Unknown Sex and Gender Information Value Date Recorded Sex Assigned at Not on file Legal Sex Female 4:28 PM CDT Gender Identity Not on file Sexual Orientation Not on file documented as of this encounter Miscellaneous Notes * Cerner Conversion Note - Jessenia Alvarez MD - 08/01/2020 5:35 PM CDT Broset Violence Assessment Entered On: 08/01/2020 19:43 EDT Performed On: 08/01/2020 19:42 EDT by JEANNA BARROSO RN Broset Violence Assessment Broset Violence Checklist of Symptoms : None Broset Violence Symptoms Subtotal : 0 Broset Violence Symptoms Indicator : Low risk (0) Broset Interventions : Pierson precautions for safety used JEANNA BARROSO RN - 08/01/2020 19:42 EDT Electronically signed by Janentte [facility] Conversion Ice Cream Vault Worker Cerner at 08/31/2022 5:08 PM CDT documented in this encounter Plan of Treatment Not on file documented as of this encounter Visit Diagnoses Not on filedocumented in this encounter Care Teams Vp Outcomes Relationship Specialty Start Date End Date Alan Beyer MD [address] [place] [address] PCP - General Family Medicine 06/08/23 documented as of this encounter
--- OUTSIDE RECORDS SUMMARY | 2024-11-05 10:18 | XMS_ITS | Encounter Summary ---
Author Organization [employer] Address [address] [place] [address] Care Team Providers Care Clerical And Administrative Workers Name Role Phone Alan Beyer MD Primary Care Provider [phone] Encounter Details Date Type Department Care Team (Late st Contact Info) Description 10/20/2018 Transcribed Document [facility] [place] [address] ProviderJessenia MD [address] [place] [address] Social History Tobacco Use Types Packs/Day Years Used Date Smoking Tobacco: Never Assessed Comments Unknown Sex and Gender Information Value Date Recorded Sex Assigned at Not on file Legal Sex Female 4:28 PM CDT Gender Identity Not on file Sexual Orientation Not on file documented as of this encounter Miscellaneous Notes * Cerner Conversion Note - Jessenia Alvarez MD - 10/20/2018 10:28 PM CDT [place] [id number] REFUGIO BOND :1980 Visit Time:10/20/2018 Your Visit Summary Your Care Team Admitting Physician - JAVI TRUJILLO MD-EMR Attending Physician - JAVI TRUJILLO MD-EMR Primary Care Physician - JORGE LUIS BUENO NP-[facility] Referring Physician - PRIYA, SELF REFERRED Your Diagnosis Dizziness Hx of diarrhea, Hx of nausea and vomiting Medical screening exam Patient Portal Reminder: Be sure to sign up for the [facility] patient portal, which gives you 24/7 access to your medical information ??? including these discharge instructions ??? using your computer, smartphone, or tablet. Just go to [email or web address] to get started. Questions? Call . You may also obtain a copy of your Emergency Department [...] do next Follow-Up Appointments Follow Up with [facility] When Within As needed Comments For assistance finding a new primary care physician please contact the Patient Resource Center at [phone]. Follow Up with JORGE LUIS BUENO When Within 2 to 3 days Where: [address] [place] [address] [facility] (1) Allergies Bactrim acetaminophen-oxyCODONE clindamycin Toradol baclofen doxycycline escitalopram fentaNYL lidocaine topical 2% gel meperidine morphine penicillin tetanus immune globulin Immunizations This Visit No Immunizations Found Medications What How Much When Instructions Next Dose ondansetron (Zofran ODT 4 mg oral tablet, disintegrating) 1 Tablet(s) Oral Three Times A Day as needed for Nausea/Vomiting Duration: 3 Day(s) allow tablet to dissolve on tongue Pickup at [facility]/pharmacy #[id number] conjugated estrogens (Premarin) Oral Every Day fexofenadine (Karine) Oral ibuprofen methocarbamol (Robaxin-750 oral tablet) 1 Tablet(s) Oral Every Day promethazine (promethazine 25 mg oral tablet) 1 Tablet(s) Oral Every 4 Hours as needed for as needed for nausea/vomiting Duration: 3 Day(s) promethazine (promethazine 25 mg oral tablet) 1 Tablet(s) Oral Every 6 Hours as needed for as needed for nausea/vomiting Duration: 3 Day(s) Pickup at [facility]/pharmacy #[id number] promethazine (promethazine 25 mg oral tablet) 1 Tablet(s) Oral Every 4 Hours as needed for as needed for nausea/vomiting valACYclovir (Valtrex) Oral vitamin E 100 International Units Oral Every Day Pharmacy Information [facility]/pharmacy #[id number]: [address] [place], [place] [id number] [phone] The home medications listed are only as [...] This Visit (last charted value for your 10/20/2018 visit) Hematology 10/20/18 21:10:00 WBC: 6.8 K/uL -- Normal range between ( 3.9 and 10.0 ) RBC: 3.86 Million/uL -- Normal range between ( 3.93 and 5.22 ) Hct: 40.2 % -- Normal range between ( 34.1 and 44.9 ) Hgb: 13.1 Gram/dL -- Normal range between ( 11.2 and 15.7 ) Platelet Count: 229 K/uL -- Normal range between ( 163 and 369 ) MCH: 33.9 pg -- Normal range between ( 25.6 and 32.2 ) MCHC: 32.6 Gram/dL -- Normal range between ( 32.3 and 36.5 ) MCV: 104.1 fL -- Normal range between ( 79.0 and 94.8 ) Slide Review: No Eos %: 0.7 % -- Normal range between ( 1.0 and 7.0 ) [place] #: 0.33 K/uL -- Normal range between ( 0.24 and 0.82 ) Eos #: 0.05 K/uL -- Normal range between ( 0.04 and 0.54 ) [place] %: 4.8 % -- Normal range between ( 4.7 and 12.5 ) Baso %: 0.3 % -- Normal range between ( 0.0 and 1.0 ) Baso #: 0.02 K/uL -- Normal range between ( 0.01 and 0.08 ) RDW: 11.6 % -- Normal range between ( 11.6 and 14.4 ) Neut %: 53.5 % -- Normal range between ( 34.0 and 71.0 ) Neut #: 3.66 K/uL -- Normal range between ( 1.56 and 6.13 ) Lymph %: 40.4 % -- Normal range between ( 19.3 and 53.0 ) Lymph #: 2.76 K/uL -- Normal range between ( 1.18 and 3.74 ) MPV: 9.9 fL -- Normal range between ( 9.4 and 12.4 ) IG#: 0 x10(3)/uL IG%: 0 % -- Normal range between ( 0 and 1 ) Urinalysis 10/20/18 19:44:00 Ur RBC: None Seen Urine Nitrite: Negative Urine Leukocyte Esterase: Negative Ur Epithelial Cells: 5-10 /HPF Urine Appearance: Cloudy Urine Glucose Dipstick: Negative Urine Blood Dipstick: Negative Urine Type: U CleanCatch Urine Urobilinogen Dipstick: 0.2 EU/dL -- Normal range between ( 0.2 and 1.0 ) Urine Protein Dipstick: Negative Ur Amorph: 2+ Ur Bacteria: Trace Urine Color: Yellow Ur WBC: 0-2 /HPF Urine Ketones Dipstick: Negative Urine pH Dipstick: 6.0 -- Normal range between ( 6.0 and 8.0 ) Urine Bilirubin Dipstick: Negative Urine Specific [place]: 1.008 -- Normal range between ( 1.005 and 1.030 ) General Chemistry 10/20/18 21:10:00 Creatinine Level: 0.78 mg/dL -- Normal range between ( 0.55 and 1.02 ) Sodium Level: 144 mmol/L -- Normal range between ( 136 and 146 ) Potassium Level: 3.2 mmol/L -- Normal range between ( 3.5 and 5.1 ) Chloride Level: 111 mmol/L -- Normal range between ( 102 and 112 ) Carbon Dioxide Level: 26 mmol/L -- Normal range between ( 21 and 32 ) Anion Gap: 10 -- Normal range between ( 9 and 20 ) Bilirubin Total: 0.3 mg/dL -- Normal range between ( 0.2 and 1.3 ) A/G Ratio: 1.2 -- Normal range between ( 1.1 and 2.5 ) ALT: 17 Units/Liter -- Normal range between ( 12 and 78 ) AST: 7 Units/Liter -- Normal range between ( 5 and 37 ) Globulin: 3.8 Gram/dL -- Normal range between ( 1.5 and 4.5 ) Alk Phos: 120 Units/Liter -- Normal range between ( 27 and 136 ) Bun/Creatinine: 10.3 -- Normal range between ( 8.0 and 20.0 ) Calcium Level: 8.8 mg/dL -- Normal range between ( 8.5 and 10.1 ) eGFR : >60 mL/min/1.73m2 eGFR NonAfrican: >60 mL/min/1.73m2 Glucose Level: 92 mg/dL -- Normal range between ( 74 and 106 ) Magnesium Level: 2.3 mg/dL -- Normal range between ( 1.5 and 2.4 ) Blood Urea Nitrogen: 8 mg/dL -- Normal range between ( 7 and 22 ) Protein Total: 8.3 Gram/dL -- Normal range between ( 6.4 and 8.2 ) Albumin Level: 4.5 Gram/dL -- Normal range between ( 3.4 and 5.0 ) Lipase Level: 103 Units/Liter -- Normal range between ( 73 and 393 ) Education Materials Diarrhea, Adult Diarrhea is when you have loose and water poop (stool) often. Diarrhea can make you feel weak and cause you to get dehydrated. Dehydration can make you tired and thirsty, make you have a dry mouth, and make it so you pee (urinate) less often. Diarrhea often lasts 2???3 days. However, it can last longer if it is a sign of something more serious. It is important to treat your diarrhea as told by your doctor. Follow these instructions at home: Eating and drinking Follow these recommendations as told by your doctor: ??? Take an oral rehydration solution (ORS). This is a drink that is sold at pharmacies and stores. ??? Drink clear fluids, such as: ? Water. ? Ice chips. ? Diluted fruit juice. ? Low-calorie sports drinks. ??? Eat bland, vtlk-om-chsawg foods in small amounts as you are able. These foods include: ? Bananas. ? Applesauce. ? Rice. ? Low-fat (lean) meats. ? [place]. ? Crackers. ??? Avoid drinking fluids that have a lot of sugar or caffeine in them. ??? Avoid alcohol. ??? Avoid spicy or fatty foods. General instructions ??? Drink enough fluid to keep your pee (urine) clear or pale yellow. ??? Wash your hands often. If you cannot use soap and water, use hand feather trimmer. ??? Make sure that all people in your home wash their hands well and often. ??? Take uuud-gkw-qkbngrz and prescription medicines only as told by your doctor. ??? Rest at home while you get [...] bloody or black poop or poop that look like tar. ??? You have very bad pain, cramping, or bloating in your belly (abdomen). ??? You have trouble breathing or you are breathing very quickly. ??? Your heart is beating very quickly. ??? Your skin feels cold and clammy. ??? You feel confused. ??? You have signs of dehydration, such as: ? Dark pee, hardly any pee, or no pee. ? Cracked lips. ? Dry mouth. ? Sunken eyes. ? Sleepiness. ? Weakness. This information is not intended to replace advice given to you by your health care provider. Make sure you discuss any questions you have with your health care provider. Document Released: 10/16/2008 Document Revised: 01/02/2018 Document Reviewed: 01/04/2016 [employer] Patient Education ?? 2019 [employer]. Nausea and Vomiting, Adult Feeling sick to your stomach (nausea) means that your stomach is upset or you feel like you have to throw up (vomit). Feeling more and more sick to your stomach can lead to throwing up. Throwing up happens when food and liquid from your stomach are thrown up and out the mouth. Throwing up can make you feel weak and cause you to get dehydrated. Dehydration can make you tired and thirsty, make you have a dry mouth, and make it so you pee (urinate) less often. Older adults and people with other diseases or a weak defense system (immune system) are at higher risk for dehydration. If you feel sick to your stomach or if you throw up, it is important to follow instructions from your doctor about how to take care of yourself. Follow these instructions at home: Eating and drinking Follow these instructions as told by your doctor: ??? Take an oral rehydration solution (ORS). This is a drink that is sold at pharmacies and stores. ??? Drink clear fluids in small amounts as you are able, such as: ? Water. ? Ice chips. ? Diluted fruit juice. ? Low-calorie sports drinks. ??? Eat bland, gkgk-mv-kuyggp foods in small amounts as you are able, such as: ? Bananas. ? Applesauce. ? Rice. ? Low-fat (lean) meats. ? [place]. ? Crackers. ??? Avoid fluids that have a lot of sugar or caffeine in them. ??? Avoid alcohol. ??? Avoid spicy or fatty foods. General instructions ??? Drink enough fluid to keep your pee (urine) clear or pale yellow. ??? Wash your hands often. If you cannot use soap and water, use hand feather trimmer. ??? Make sure that all people in your home wash their hands well and often. ??? Take fdtr-ped-wklluty and prescription medicines only as told by your doctor. ??? Rest at home while you get better. ??? Watch your condition for any changes. ??? Breathe slowly and deeply when you feel sick to your stomach. ??? Keep all follow-up visits as told by your doctor. This is important. Contact a doctor if: ??? You have a fever. ??? You cannot keep fluids down. ??? Your symptoms get worse. ??? You have new symptoms. ??? You feel sick to your stomach for more than two days. ??? You feel light-headed or dizzy. ??? You have a headache. ??? You have muscle cramps. Get help right away if: ??? You have pain in your chest, neck, arm, or jaw. ??? You feel very weak or you pass out (faint). ??? You throw up again and again. ??? You see blood in your throw-up. ??? Your throw-up looks like black coffee grounds. ??? You have bloody or black poop (stools) or poop that look like tar. ??? You have a very bad headache, a stiff neck, or both. ??? You have a rash. ??? You have very bad pain, cramping, or bloating in your belly (abdomen). ??? You have trouble breathing. ??? You are breathing very quickly. ??? Your heart is beating very quickly. ??? Your skin feels cold and clammy. ??? You feel confused. ??? You have pain when you pee. ??? You have signs of dehydration, such as: ? Dark pee, hardly any pee, or no pee. ? Cracked lips. ? Dry mouth. ? Sunken eyes. ? Sleepiness. ? Weakness. These symptoms may be an emergency. Do not wait to see if the symptoms will go away. Get medical help right away. Call your local emergency services (911 in the [place] Do not drive yourself to the hospital. This information is not intended to replace advice given to you by your health care provider. Make sure you discuss any questions you have with your health care provider. Document Released: 10/16/2008 Document Revised: 11/17/2016 Document Reviewed: 01/04/2016 [employer] Patient Education ?? 2019 [employer]. Emergency Awareness and Preventative Care STROKE is [...] Assistance with quitting is available by contacting 8-288-AGBN-NOW. This is a free resource providing counseling, [...] including: emergency, radiology, or pathology physicians. Patient Name:MELISSAMIGUELINA REFUGIOGerry GUAMAN I have received this information and was given the opportunity to ask questions. Patient/Shipping Weigher Name: Patient/Shipping Weigher Signature: Relationship to Patient: Clinician/Hospital Shipping Weigher Signature: Please Provide a Telephone Number Where You Can Be Reached: Is it Permissible To Leave a Message? Date: documented in this encounter Plan of Treatment Not on file documented as of this encounter Visit Diagnoses Not on filedocumented in this encounter Care Teams Clerical And Administrative Workers Relationship Specialty Start Date End Date Alan Beyer MD [address] [place] [address] PCP - General Family Medicine 06/08/23 documented as of this encounter
--- OUTSIDE RECORDS SUMMARY | 2024-11-05 10:18 | XMS_ITS | Encounter Summary ---
Author Organization [employer] Address [address] [place] [address] Care Team Providers Care Brake Assembler Name Role Phone Alan Beyer MD Primary Care Provider [phone] Encounter Details Date Type Department Care Team (Late st Contact Info) Description 07/13/2021 Transcribed Document [facility] [place] [address] ProviderJessenia MD [address] [place] [address] Social History Tobacco Use Types Packs/Day Years Used Date Smoking Tobacco: Never Assessed Comments Unknown Sex and Gender Information Value Date Recorded Sex Assigned at Not on file Legal Sex Female 4:28 PM CDT Gender Identity Not on file Sexual Orientation Not on file documented as of this encounter Miscellaneous Notes * Cerner Conversion Note - Jessenia Alvarez MD - 07/13/2021 10:00 AM OCCUPATIONAL PSYCHOLOGIST ED Assessment Entered On: 07/13/2021 14:01 EST Performed On: 07/13/2021 10:00 EST by Meka Louie RN-PATIENT CARE BEDSIDE NON-EXEMPT ED Quick Look Assessment Level of Consciousness : Alert, Awake Affect/Behavior : Appropriate, Calm, Cooperative Orientation : Not oriented to person Meka Louie RN-PATIENT CARE BEDSIDE NON-EXEMPT - 07/13/2021 14:00 EST Cardiovascular ASMT, ED Cardiovascular Assessment WDL : WDL with exceptions (Comment: pt c/o midsternal cp states pain is pressure like in nature. c/o nausea r/t cp. rates pain 9/10 [Meka Louie RN-PATIENT CARE BEDSIDE NON-EXEMPT - 07/13/2021 14:00 EST] ) Cardiovascular Symptoms : Chest pain at rest, Chest pain with activity, Nausea at rest, Nausea with activity Meka Louie RN-PATIENT CARE BEDSIDE NON-EXEMPT - 07/13/2021 14:00 EST Respiratory Respiratory Assessment WDL : WD Meka Louie RN-PATIENT CARE BEDSIDE NON-EXEMPT - 07/13/2021 14:00 EST Gastrointestinal ED Gastrointestinal Assessment WDL : WD with exceptions Gastrointestinal Symptoms : Nausea Meka Louie RN-PATIENT CARE BEDSIDE NON-EXEMPT - 07/13/2021 14:00 EST Genitourinary Assessment, ED Genitourinary Assessment WDL : [facility] Meka Louie RN-PATIENT CARE BEDSIDE NON-EXEMPT - 07/13/2021 14:00 EST Musculoskeletal Musculoskeletal Assessment WDL : [facility] Meka Louie RN-PATIENT CARE BEDSIDE NON-EXEMPT - 07/13/2021 14:00 EST Integumentary Assessment Integumentary Assessment WDL : [facility] Meka Louie RN-PATIENT CARE BEDSIDE NON-EXEMPT - 07/13/2021 14:00 EST Neurologic ASMT, ED Neurologic Assessment WDL : [facility] Meka Louie RN-PATIENT CARE BEDSIDE NON-EXEMPT - 07/13/2021 14:00 EST Electronically signed by Jannette [facility] Conversion Recycling Tech Cerner at 08/31/2022 5:12 PM CDT documented in this encounter Plan of Treatment Not on file documented as of this encounter Visit Diagnoses Not on filedocumented in this encounter Care Teams Brake Assembler Relationship Specialty Start Date End Date Alan Beyer MD [address] [place] [address] PCP - General Family Medicine 06/08/23 documented as of this encounter
--- OUTSIDE RECORDS SUMMARY | 2024-11-05 10:18 | XMS_ITS | Encounter Summary ---
Author Organization [employer] Address [address] [place] [address] Care Team Providers Care Manager Telecom Name Role Phone Alan Beyer MD Primary Care Provider [phone] Encounter Details Date Type Department Care Team (Late st Contact Info) Description 10/20/2018 Transcribed Document [facility] [place] Family [place] [facility] [place] [address] ProviderJessenia MD [address] [place], [place] [id number] Social History Tobacco Use Types Packs/Day Years Used Date Smoking Tobacco: Never Assessed Comments Unknown Sex and Gender Information Value Date Recorded Sex Assigned at Not on file Legal Sex Female 4:28 PM CDT Gender Identity Not on file Sexual Orientation Not on file documented as of this encounter Miscellaneous Notes * Cerner Conversion Note - Jessenia Alvarez MD - 10/20/2018 10:04 PM CDT Electronically signed by Jannette [facility] Conversion Dispatcher Automobile Rental Cerner at 08/31/2022 5:16 PM CDT documented in this encounter Plan of Treatment Not on file documented as of this encounter Visit Diagnoses Not on filedocumented in this encounter Care Teams Manager Telecom Relationship Specialty Start Date End Date Alan Beyer MD [address] [place] [address] PCP - General Family Medicine 06/08/23 documented as of this encounter
--- OUTSIDE RECORDS SUMMARY | 2024-11-05 10:18 | XMS_ITS | Encounter Summary ---
Author Organization [employer] Address [address] [place] [address] Care Team Providers Care Hard Candy Batch Mixer Name Role Phone Alan Beyer MD Primary Care Provider [phone] Encounter Details Date Type Department Care Team (Late st Contact Info) Description 08/01/2020 Transcribed Document [facility] [place] [facility] [place] [address] ProviderJessenia MD [address] [place] [address] Social History Tobacco Use Types Packs/Day Years Used Date Smoking Tobacco: Never Assessed Comments Unknown Sex and Gender Information Value Date Recorded Sex Assigned at Not on file Legal Sex Female 4:28 PM CDT Gender Identity Not on file Sexual Orientation Not on file documented as of this encounter Miscellaneous Notes * Cerner Conversion Note - Jessenia Alvarez MD - 08/01/2020 9:02 PM CDT [place] [id number] CHARLINE BOND :1980 Visit Time:08/01/2020 Your Visit Summary Your Care Team Primary Provider: FRANCOISE BARRETT APRN-EMR Secondary Provider: Your Diagnosis Abdominal pain Acute abdominal pain Medical Information You may obtain a [...] When Within 2 to 3 days Comments Rest, fluids, zofran as needed. follow up with pcp. Return as needed. Allergies Bactrim acetaminophen-oxyCODONE clindamycin Toradol [...] This Visit (last charted value for your 08/01/2020 visit) Hematology 08/01/2020 7:14 PM WBC: 8.2 K/uL -- Normal range between ( 3.9 and 10.0 ) RBC: 3.31 Million/uL -- Normal range between ( 3.93 and 5.22 ) Hct: 33.3 % -- Normal range between ( 34.1 and 44.9 ) Hgb: 11.2 Gram/dL -- Normal range between ( 11.2 and 15.7 ) Platelet Count: 201 K/uL -- Normal range between ( 163 and 369 ) MCH: 33.8 pg -- Normal range between ( 25.6 and 32.2 ) MCHC: 33.6 Gram/dL -- Normal range between ( 32.3 and 36.5 ) MCV: 100.6 fL -- Normal range between ( 79.0 and 94.8 ) Slide Review: No Eos %: 1.7 % -- Normal range between ( 1.0 and 7.0 ) Carter #: 0.40 K/uL -- Normal range between ( 0.24 and 0.82 ) Eos #: 0.14 K/uL -- Normal range between ( 0.04 and 0.54 ) Carter %: 4.9 % -- Normal range between ( 4.7 and 12.5 ) Baso %: 0.2 % -- Normal range between ( 0.0 and 1.0 ) Baso #: 0.02 K/uL -- Normal range between ( 0.01 and 0.08 ) RDW: 11.9 % -- Normal range between ( 11.6 and 14.4 ) Neut %: 63.4 % -- Normal range between ( 34.0 and 71.0 ) Neut #: 5.21 K/uL -- Normal range between ( 1.56 and 6.13 ) Lymph %: 29.6 % -- Normal range between ( 19.3 and 53.0 ) Lymph #: 2.43 K/uL -- Normal range between ( 1.18 and 3.74 ) MPV: 9.9 fL -- Normal range between ( 9.4 and 12.4 ) IG#: 0 x10(3)/uL IG%: 0 % -- Normal range between ( 0 and 1 ) Urinalysis 08/01/2020 7:14 PM Urine Nitrite: Negative Urine Leukocyte Esterase: Negative Urine Appearance: Clear Urine Glucose Dipstick: Negative Urine Blood Dipstick: Negative Urine Urobilinogen Dipstick: 0.2 EU/dL -- Normal range between ( 0.2 and 1.0 ) Urine Protein Dipstick: Negative Urine Color: Yellow Urine Ketones Dipstick: Negative Urine pH Dipstick: 6.5 -- Normal range between ( 6.0 and 8.0 ) Urine Bilirubin Dipstick: Negative mg/dL Urine Specific [place]: 1.017 -- Normal range between ( 1.005 and 1.030 ) Urine Type.: U CleanCatch Urine Culture if Indicated: Not Indicated General Chemistry 08/01/2020 7:45 PM Creatinine Level: 0.66 mg/dL -- Normal range between ( 0.55 and 1.02 ) Sodium Level: 141 mmol/L -- Normal range between ( 136 and 146 ) Potassium Level: 3.8 mmol/L -- Normal range between ( 3.5 and 5.1 ) Chloride Level: 110 mmol/L -- Normal range between ( 102 and 112 ) Carbon Dioxide Level: 24 mmol/L -- Normal range between ( 21 [...] between ( 5 and 37 ) Globulin: 3.5 Gram/dL -- Normal range between ( 1.5 and 4.5 ) Alk Phos: 69 Units/Liter -- Normal range between ( 27 and 136 ) Bun/Creatinine: 25.8 -- Normal range between ( 8.0 and 20.0 ) Calcium Level: 8.7 mg/dL -- Normal range between ( 8.5 and 10.1 ) eGFR : >60 mL/min/1.73m2 eGFR NonAfrican: >60 mL/min/1.73m2 Glucose Level: 92 mg/dL -- Normal range between ( 74 and 106 ) Blood Urea Nitrogen: 17 mg/dL -- Normal range between ( 7 and 22 ) Protein Total: 7.4 Gram/dL -- Normal range between ( 6.4 and 8.2 ) Albumin Level: 3.9 Gram/dL -- Normal range between ( 3.4 and 5.0 ) Endocrinology 08/01/2020 7:14 PM HCG Urine Qualitative: Negative Computed Tomography 08/01/2020 8:[address] Abdomen Pelvis WO: CT Abdomen Pelvis WO Education Materials Abdominal Pain, Adult Pain in the abdomen (abdominal pain) can be caused by many things. Often, abdominal pain is not serious and it gets better with no treatment or by being treated at home. However, sometimes abdominal pain is serious. Your health care provider will ask questions about your medical history and do a physical exam to try to determine the cause of your abdominal pain. Follow these instructions at home: Medicines ??? Take kwoa-eqf-oarfoky and prescription medicines only as told by your health care provider. ??? Do not take a laxative unless told by your health care provider. General instructions ??? Watch your condition for any changes. ??? Drink enough fluid to keep your urine pale yellow. ??? Keep all follow-up visits as told by your health care provider. This is important. Contact a health care provider if: ??? Your abdominal pain changes or gets worse. ??? You are not hungry or you lose weight without trying. ??? You are constipated or have diarrhea for more than 2???3 days. ??? You have pain when you urinate or have a bowel movement. ??? Your abdominal pain wakes you up at night. ??? Your pain gets worse with meals, after eating, or with certain foods. ??? You are vomiting and cannot keep anything down. ??? You have a fever. ??? You have blood in your urine. Get help right away if: ??? Your pain does not go away as soon as your health care provider told you to expect. ??? You cannot stop vomiting. ??? Your pain is only in areas of the abdomen, such as the right side or the left lower portion of the abdomen. Pain on the right side could be caused by appendicitis. ??? You have bloody or black stools, or stools that look like tar. ??? You have severe pain, cramping, or bloating in your abdomen. ??? You have signs of dehydration, such as: ? Dark urine, very little urine, or no urine. ? Cracked lips. ? Dry mouth. ? Sunken eyes. ? Sleepiness. ? Weakness. ??? You have trouble breathing or chest pain. Summary ??? Often, abdominal pain is not serious and it gets better with no treatment or by being treated at home. However, sometimes abdominal pain is serious. ??? Watch your condition for any changes. ??? Take jpuw-kfm-ximyufa and prescription medicines only as told by your health care provider. ??? Contact a health care provider if your abdominal pain changes or gets worse. ??? Get help right away if you have severe pain, cramping, or bloating in your abdomen. This information is not intended to replace advice given to you by your health care provider. Make sure you discuss any questions you have with your health care provider. Document Revised: 09/08/2019 Document Reviewed: 09/08/2019 [employer] Patient Education ?? 2020 [employer] Emergency Awareness and Preventative Care STROKE [...] Assistance with quitting is available by contacting 4-207-JKWRNOW. This is a free resource providing counseling, support, and referral. Or you may contact your personal physician. [place] Suicide Prevention Lifeline: The National Suicide Prevention [...] including: emergency, radiology, or pathology physicians. Patient Name:RIANA CHARLINEGerry GUAMAN I have received this information and was given the opportunity to ask questions. Patient/Vice President Of Brand Management Name: Patient/Vice President Of Brand Management Signature: Relationship to Patient: Clinician/Hospital Vice President Of Brand Management Signature: Please Provide a Telephone Number Where You Can Be Reached: Is it Permissible To Leave a Message? Date: documented in this encounter Plan of Treatment Not on file documented as of this encounter Visit Diagnoses Not on filedocumented in this encounter Care Teams Hard Candy Batch Mixer Relationship Specialty Start Date End Date Alan Beyer MD [address] [place] [address] PCP - General Family Medicine 06/08/23 documented as of this encounter
--- OUTSIDE RECORDS SUMMARY | 2024-11-05 10:18 | XMS_ITS | Encounter Summary ---
Author Organization [employer] Address [address] [place] [address] Care Team Providers Care Agricultural Inspector Name Role Phone Alan Beyer MD Primary Care Provider [phone] Encounter Details Date Type Department Care Team (Late st Contact Info) Description 08/01/2020 Transcribed Document [facility] [place] [facility] [place] [address] ProviderJessenia MD [address] [place] [address] Social History Tobacco Use Types [...] Alvarez MD - 08/01/2020 5:35 PM CDT [place] Suicide Severity Rating Scale (C-SSRS) Entered On: 08/01/2020 19:43 EDT Performed On: 08/01/2020 19:42 EDT by JEANNA BARROSO RN [place] Suicide Severity Rating Scale (C-SSRS) CSSRS Past Month Wish to be : No CSSRS Past Month Suicidal Thoughts : No CSSRS Lifetime Suicide Behavior : No Suicide Severity Rating Score : 0 Suicide Severity Rating : No Additional Care Required at this time JEANNA BARROSO RN - 08/01/2020 19:42 EDT documented in this encounter Plan of Treatment Not on file documented as of this encounter Visit Diagnoses Not on filedocumented in this encounter Care Teams Agricultural Inspector Relationship Specialty Start Date End Date Alan Beyer MD [address] [place] [address] PCP - General Family Medicine 06/08/23 documented as of this encounter
--- OUTSIDE RECORDS SUMMARY | 2024-11-05 10:18 | XMS_ITS | Encounter Summary ---
Author Organization [employer] Address [address] [place] [address] Care Team Providers Care It Security Consultant Name Role Phone Alan Beyer MD Primary Care Provider [phone] Encounter Details Date Type Department Care Team (Late st Contact Info) Description 10/20/2018 Transcribed Document [facility] [place] [facility] [place] [address] ProviderJessenia MD [address] [place] [address] Social History Tobacco Use Types Packs/Day [...] MD - 10/20/2018 4:55 PM CDT ED Assessment Entered On: 10/20/2018 19:06 EDT Performed On: 10/20/2018 19:05 EDT by SHAMA CASTILLO Rn ED Quick Look Assessment Level of Consciousness : Alert, Awake Affect/Behavior : Appropriate, Calm, Cooperative Orientation : Oriented x 4 Skin Temperature : Warm Skin Description : Dry SHAMA CASTILLO Rn - 10/20/2018 19:05 EDT ED General-Functional Assess Information Obtained From : Patient Preferred Communication Mode : Verbal Communication Barrier : None Primary Language : Senegalese Any Spiritual/Cultural Needs or Requests : No Currently in Unsafe Situation : No SHAMA CASTILLO Rn - 10/20/2018 19:05 EDT Social Habits Smoking Status : 10 or more cigarettes (1/2 pack or more)/day in last 30 days Smokeless Tobacco Status : Never Desires Tobacco Cessation Medication : No Reason for No Tobacco Cessation Medication : ED/procedural patient only Desires Tobacco Cessation Calc : 1 SHAMA CASTILLO Rn - 10/20/2018 19:05 EDT Social History (As Of: 10/20/2018 19:06:21 EDT) Tobacco: 10 or more cigarettes (1/2 pack [...] 05/24/2018 10:39:04 EST by Breanna Ivey Rn) Nutrition/Health: Regular (Last Updated: 05/24/2018 10:39:04 EST by Breanna Ivey, [place]) Gastrointestinal ED Gastrointestinal Symptoms : Diarrhea, Nausea, Vomiting SHAMA CASTILLO Rn - 10/20/2018 19:05 EDT Neurologic ASMT, ED Neurological Symptoms : Dizziness Level of Consciousness : Alert, Awake Affect/Behavior : Appropriate, Calm, Cooperative Orientation : Oriented x 4 Pupils Equal, Round, Reactive to Light : Yes SHAMA CASTILLO Rn - 10/20/2018 19:05 EDT Electronically signed by [facility] Conversion Town Marshal Cerner at 08/31/2022 5:09 PM CDT documented in this encounter Plan of Treatment Not on file documented as of this encounter Visit Diagnoses Not on filedocumented in this encounter Care Teams It Security Consultant Relationship Specialty Start Date End Date Alan Beyer MD [address] [place] [address] PCP - General Family Medicine 06/08/23 documented as of this encounter
--- OUTSIDE RECORDS SUMMARY | 2024-11-05 10:18 | XMS_ITS | Encounter Summary ---
Author Organization [employer] Address [address] [place] [address] Care Team Providers Care Parts Washer Name Role Phone Alan Beyer MD Primary Care Provider [phone] Encounter Details Date Type Department Care Team (Late st Contact Info) Description 05/15/2020 Transcribed Document [facility] [place] [address] [place] [address] ProviderJessenia MD [address] [place] [address] Social History Tobacco Use Types Packs/Day Years Used Date Smoking Tobacco: Never Assessed Comments Unknown Sex and Gender Information Value Date Recorded Sex Assigned at Not on file Legal Sex Female 4:28 PM CDT Gender Identity Not on file Sexual Orientation Not on file documented as of this encounter Miscellaneous Notes * Cerner Conversion Note - Jessenia ProviderMD - 05/15/2020 12:28 PM ELECTRICIAN SHIP [place] Violence Assessment Entered On: 05/15/2020 13:41 EST Performed On: 05/15/2020 13:41 EST by Caroline Caromna RN Broset Violence Assessment Broset Violence Checklist of Symptoms : None Broset Violence Symptoms Subtotal : 0 Broset Violence Symptoms Indicator : Low risk (0) Broset Interventions : Magna precautions for safety used Caroline Carmona RN - 05/15/2020 13:41 EST Electronically signed by Jannette [facility] Conversion Paper Bags Sewing Machine Operator Cerner at 08/31/2022 5:19 PM CDT documented in this encounter Plan of Treatment Not on file documented as of this encounter Visit Diagnoses Not on filedocumented in this encounter Care Teams Parts Washer Relationship Specialty Start Date End Date Alan Beyer MD [address] [place] [address] PCP - General Family Medicine 06/08/23 documented as of this encounter
--- OUTSIDE RECORDS SUMMARY | 2024-11-05 10:18 | XMS_ITS | Encounter Summary ---
Author Organization [employer] Address [address] [place] [address] Care Team Providers Care Mail Room Clerk Name Role Phone Alan Beyer MD Primary Care Provider [phone] Encounter Details Date Type Department Care Team (Late st Contact Info) Description 08/01/2020 Transcribed Document [facility] [place] [facility] [place] [address] ProviderJessenia MD [address] [place], [place] [address] Social History Tobacco Use Types Packs/Day Years [...] Alvarez MD - 08/01/2020 5:35 PM CDT ED Assessment Entered On: 08/01/2020 19:43 EDT Performed On: 08/01/2020 19:42 EDT by JEANNA BARROSO RN ED Quick Look Assessment Level of Consciousness : Alert, Awake Affect/Behavior : Appropriate, Calm, Cooperative JEANNA BARROSO RN - 08/01/2020 19:42 EDT ED General-Functional Assess Information Obtained From : Patient Preferred Communication Mode : Verbal Communication Barrier : None Primary Language : Kyrgyz Any Spiritual/Cultural Needs or Requests : No Currently in Unsafe Situation : No JEANNA BARROSO RN - 08/01/2020 19:42 EDT Social Habits Smoking Status : 4 or less cigarettes(less than 1/4 pack)/day in last 30 days Smokeless Tobacco Status : Never Desires Tobacco Cessation Medication : No Reason for No Tobacco Cessation Medication : Refuses FDA approved medications Desires Tobacco Cessation Calc : 1 JEANNA BARROSO RN - 08/01/2020 19:42 EDT Social History (As Of: 08/01/2020 19:43:32 EDT) Tobacco: 4 or less cigarettes(less than [...] [place]) EENT Assessment EENT Assessment WDL : JEANNA GUILLEN RN - 08/01/2020 19:42 EDT Cardiovascular ASMT, ED Cardiovascular Assessment WDL : JEANNA GUILLEN RN - 08/01/2020 19:42 EDT Pulses Grid Brachial Pulse, Left : 2+ normal Brachial Pulse, Right : 2+ normal Carotid Pulse, Left : 2+ normal Carotid Pulse, Right : 2+ normal Dorsalis Pedis Pulse, Left : 2+ normal Dorsalis Pedis Pulse, Right : 2+ normal Femoral Pulse, Left : 2+ normal Femoral Pulse, Right : 2+ normal Popliteal Pulse, Left : 2+ normal Popliteal Pulse, Right : 2+ normal Posterior Tibial Pulse, Left : 2+ normal Posterior Tibial Pulse, Right : 2+ normal Radial Pulse, Left : 2+ normal Radial Pulse, Right : 2+ normal JEANNA BARROSO RN - 08/01/2020 19:42 EDT Respiratory Respiratory Assessment WDL : [facility] JEANNA BARROSO RN - 08/01/2020 19:42 EDT Breath Sounds Assessment Grid All Lobes Breath Sounds : Clear SAIDA : Clear LLL : Clear RUL : Clear RML : Clear RLL : Clear JEANNA BARROSO RN - 08/01/2020 19:42 EDT Gastrointestinal ED Gastrointestinal Assessment WDL : WD with exceptions (Comment: patient reports right flank and RLQ pain that she woke up with [JEANNA BARROSO RN - 08/01/2020 19:42 EDT] ) Gastrointestinal Symptoms : Abdominal pain, Diarrhea, Nausea JEANNA BARROSO RN - 08/01/2020 19:42 EDT Genitourinary Assessment, ED Genitourinary Assessment WDL : [facility] JEANNA BARROSO RN - 08/01/2020 19:42 EDT Musculoskeletal Musculoskeletal Assessment WDL : [facility] JEANNA BARROSO RN - 08/01/2020 19:42 EDT Integumentary Assessment Integumentary Assessment WDL : [facility] JEANNA BARROSO RN - 08/01/2020 19:42 EDT Neurologic ASMT, ED Neurologic Assessment WDL : [place] Neurological Symptoms : None Level of Consciousness : Alert Affect/Behavior : Appropriate, Calm, Cooperative Orientation : Oriented x 4 JEANNA BARROSO RN - 08/01/2020 19:42 EDT documented in this encounter Plan of Treatment Not on file documented as of this encounter Visit Diagnoses Not on filedocumented in this encounter Care Teams Mail Room Clerk Relationship Specialty Start Date End Date Alan Beyer MD [address] [place], [place] [id number] PCP - General Family Medicine 06/08/23 documented as of this encounter
--- OUTSIDE RECORDS SUMMARY | 2024-11-05 10:18 | XMS_ITS | Encounter Summary ---
Author Organization [employer] Address [address] [place] [address] Care Team Providers Care Mail Agent Name Role Phone Alan Beyer MD Primary Care Provider [phone] Encounter Details Date Type Department Care Team (Late st Contact Info) Description 05/15/2020 Transcribed Document [facility] [place] [facility] [place] [address] ProviderJessenia MD [address] [place], [place] [address] Social History Tobacco Use Types Packs/Day Years Used Date Smoking Tobacco: Never Assessed Comments Unknown Sex and Gender Information Value Date Recorded Sex Assigned at Not on file Legal Sex Female 4:28 PM CDT Gender Identity Not on file Sexual Orientation Not on file documented as of this encounter Miscellaneous Notes * Cerner Conversion Note - Jessenia Alvarez MD - 05/15/2020 4:03 PM POTATO PEELING MACHINE OPERATOR ED Discharge Entered On: 05/15/2020 16:03 EST Performed On: 05/15/2020 16:03 EST by Caroline Carmona RN Discharge Process Patient Disposition : Discharge Personal Belongings With Patient : Yes Patient Education Completed : Yes Teaching Evaluation : Verbalizes understanding IV Discontinued : Yes Nursing Documentation Completed : Yes Caroline Carmona RN - 05/15/2020 16:03 EST ED Discharge Discharge To : Home with ambulatory/outpatient follow-up Mode Of Departure : Ambulatory Accompanied By : Unaccompanied Discharge Instructions Reviewed With, Opportunity For Questions Given : Patient Prescriptions Given to Patient : No Caroline Carmona RN - 05/15/2020 16:03 EST documented in this encounter Plan of Treatment Not on file documented as of this encounter Visit Diagnoses Not on filedocumented in this encounter Care Teams Mail Agent Relationship Specialty Start Date End Date Alan Beyer MD [address] [place] [address] PCP - General Family Medicine 06/08/23 documented as of this encounter
--- OUTSIDE RECORDS SUMMARY | 2024-11-05 10:18 | XMS_ITS | Encounter Summary ---
Author Organization [employer] Address [address] [place] [address] Care Team Providers Care Supervisor Bit And Shank Department Name Role Phone Alan Beyer MD Primary Care Provider [phone] Encounter Details Date Type Department Care Team (Late st Contact Info) Description 05/15/2020 Transcribed Document [facility] [place] [facility] [place] [address] ProviderJessenia MD [address] [place], [place] [address] Social History Tobacco Use Types Packs/Day Years Used Date Smoking Tobacco: Never Assessed Comments Unknown Sex and Gender Information Value Date Recorded Sex Assigned at Not on file Legal Sex Female 4:28 PM CDT Gender Identity Not on file Sexual Orientation Not on file documented as of this encounter Miscellaneous Notes * Cerner Conversion Note - Jessenia Alvarez MD - 05/15/2020 1:32 PM AIR TURNING MACHINE FEEDER Patient: CHARLINE BOND Age: 39 years Sex: Female : 1980 Associated Diagnoses: Viral syndrome; COVID-19 virus infection Author: ANGELIQUE VARELA MD-EMR Basic Information Additional information: Chief Complaint from Nursing Triage Note : Chief Complaint 05/15/2020 13:21 EST Chief Complaint Patient arrived c/o sore throat and headache, fever 11 at home. . History of Present Illness The patient presents with headache. The onset was 2 days ago. The course/duration of symptoms is constant. Location: generalized. Radiating pain: none. The character of symptoms is throbbing. The degree at onset was minimal. The degree at maximum was minimal. The degree at present is minimal. The exacerbating factor is none. The relieving factor is none. Risk factors consist of none. Prior episodes: none. Therapy today: none. Preceding symptoms: none. Associated symptoms: sore throat. Review of Systems Constitutional symptoms: Fever, No chills, Skin symptoms: No rash, Eye symptoms: Negative except as documented in HPI. ENMT symptoms: Sore throat. Respiratory symptoms: No shortness of breath, no cough. Cardiovascular symptoms: No chest pain, no syncope. Gastrointestinal symptoms: No abdominal pain, no nausea, no vomiting, no diarrhea. Genitourinary symptoms: Negative except as documented in HPI. Musculoskeletal symptoms: Negative except as documented in HPI. Neurologic symptoms: Headache, no numbness, no tingling. Psychiatric symptoms: Negative except as documented in HPI. Endocrine symptoms: Negative except as documented in HPI. Hematologic/Lymphatic symptoms: Negative except as documented in HPI. Allergy/immunologic symptoms: Negative except as documented in HPI. Additional review of systems information: All other systems reviewed and otherwise negative, All systems reviewed as documented in chart. Health Status Allergies: Allergic Reactions (All) Severe Acetaminophen-oxyCODONE- No reactions were documented. Bactrim- [...] as documented in chart. Surgical history: Clavicle ([id number]). Tympanostomy ([id number]). Adenoids ([id number]). shoulder surgery. Gallbladder absent ([id number]). Tubal ligation ([id number]). Hysterectomy ([id number]). Right knee ([id number]). Comments: 05/03/2020 15:32 EST - Jyoti Frazier [...] Physical Examination Vital Signs Vital Signs/Vital Measures 05/15/2020 13:21 EST Systolic Blood Pressure 138 mmHg Diastolic Blood Pressure 89 mmHg Temperature Source Oral Temperature Mode Fahrenheit Temperature, Fahrenheit 98.1 Deg F Clinical Temperature, C 36.7 Deg C Peripheral Pulse Rate 86 bpm Respiratory Rate 16 Breaths/Min Oxygen Saturation 100 % Oxygen Therapy Mode Room air . Measurements 05/15/2020 13:21 EST Height Source Stated Height Entry Format [place] Height/Length, OMANI (ft) 5 ft Height/Length OMANI 5 Inch CLINICALHEIGHT 165.1 cm [place] Body Weight 56.59 kg Weight Source, ED Critical estimated dosing weight Weight Entry Format Cuming Weight Urdu lb 165 lb CLINICALWEIGHT 75 kg Body Surface Area (BSA) 1.82 m2 Body Mass Index 27.5 kg/m2 HI . Oxygen Saturation 05/15/2020 13:21 EST Oxygen Saturation 100 % . General: Alert, no acute distress. Skin: Warm, dry. Head: Normocephalic. Neck: Supple, trachea midline, no tenderness. Eye: Pupils are equal, round and reactive to light. Ears, nose, mouth and throat: No pharyngeal erythema or exudate. Cardiovascular: Regular rate and rhythm, Normal peripheral perfusion. Respiratory: Lungs are clear to auscultation, respirations are non-labored, breath sounds are equal. Gastrointestinal: Soft, Nontender, Non distended. Back: Nontender, Normal range of motion. Musculoskeletal: Normal ROM, no deformity. Neurological: Alert and oriented to person, place, time, and situation, No focal neurological deficit observed. Psychiatric: Cooperative, appropriate mood & affect. Medical Decision Making Differential Diagnosis: Migraine, tension headache, sinusitis, cerebral vascular accident, meningitis, dehydration, viral syndrome. Documents reviewed: Emergency department nurses' notes, prior records. Orders Place New Orders Laboratory: CMP Comprehensive Metabolic Panel (Order): Specimen Type: Blood, Stat collect, 05/15/2020 13:34 EST, 1-Time, Stop: 05/15/2020 13:34 EST, Nurse Collect CBC w/ Auto Diff (Order): Specimen Type: Blood, Stat collect, 05/15/2020 13:34 EST, 1-Time, Stop: 05/15/2020 13:34 EST, Nurse Collect Pharmacy: Reglan (Order): 10 mg, IV Push, 1-Time LR bolus (Order): 1,000 mL, 1,000 mL/Hr, IV Piggyback, 1-Time dexAMETHasone (Order): 10 mg, IV Push, 1-Time Benadryl (Order): 25 mg, IV Push, 1-Time. Results review: Lab results : Lab Results 05/15/2020 13:35 EST Sodium Level 141 mmol/L Potassium Level 3.7 mmol/L Chloride Level 110 mmol/L Carbon Dioxide Level 26 mmol/L Anion Gap 9 Glucose Level 89 mg/dL Blood Urea Nitrogen 12 mg/dL Creatinine Level 0.76 mg/dL eGFR >60 mL/min/1.73m2 eGFR NonAfrican >60 mL/min/1.73m2 Bun/Creatinine 15.8 Calcium Level 8.5 mg/dL Protein Total 7.1 Gram/dL Albumin Level 3.6 Gram/dL Globulin 3.5 Gram/dL A/G Ratio 1.0 LOW Bilirubin Total 0.2 mg/dL Alk Phos 74 Units/Liter AST 8 Units/Liter ALT 15 Units/Liter WBC 3.0 K/uL LOW RBC 3.57 Million/uL LOW Hgb 12.2 Gram/dL Hct 36.5 % MCV 102.2 fL HI MCH 34.2 pg HI MCHC 33.4 Gram/dL Platelet Count 152 K/uL LOW MPV 11.1 fL RDW 11.4 % LOW Neut % 55.9 % Neut # 1.65 K/uL Lymph % 29.2 % Lymph # 0.86 K/uL LOW [place] % 13.6 % HI [place] # 0.40 K/uL Eos % 0.7 % LOW Eos # 0.02 K/uL LOW Baso % 0.3 % Baso # 0.01 K/uL Slide Review No IG# 0 x10(3)/uL IG% 0 % . Impression and Plan Diagnosis Viral syndrome - Discharge, Medical COVID-19 virus infection - Discharge, Medical Plan Condition: Stable. Disposition: Discharged Admit/Transfer/Discharge: Discharge (Order): Start: 05/15/2020 15:56 EST, Discharge to: Home. Patient was given the following educational materials: COVID-19, COVID-19 Frequently Asked Questions, COVID-19: How to Protect Yourself and Others - CDC, Viral Illness, Adult, Viral Illness, Adult, COVID-19: How to Protect Yourself and Others - CDC, COVID-19 Frequently Asked Questions, COVID-19. Follow up with: REGINALD POWERS Within 2 to 3 days; Follow up with primary care provider Within 2 to 3 days Call for follow up appointment. Please follow-up with your primary care provider in 2 to 3 days. Return to ED if you experience new or worsening symptoms. If you do not have a primary care provider the patient resource home care scheduler can assist you with establishing care and scheduling follow-up. The Patient Resource Marketing Underwriter can be contacted at .. Counseled: Patient, Regarding diagnosis, Regarding diagnostic results, Regarding treatment plan, Patient indicated understanding of instructions. documented in this encounter Plan of Treatment Not on file documented as of this encounter Visit Diagnoses Not on filedocumented in this encounter Care Teams Supervisor Bit And Shank Department Relationship Specialty Start Date End Date Alan Beyer MD [address] [place] [address] PCP - General Family Medicine 06/08/23 documented as of this encounter
--- OUTSIDE RECORDS SUMMARY | 2024-11-05 10:18 | XMS_ITS | Encounter Summary ---
Author Organization [employer] Address [address] [place] [address] Care Team Providers Care Dye Range Operator Cloth Name Role Phone Alan Beyer MD Primary Care Provider [phone] Encounter Details Date Type Department Care Team (Late st Contact Info) Description 08/01/2020 Transcribed Document [facility] Family Medicine [facility] [place] [address] ProviderJessenia MD [address] [place], [place] [id number] Social History Tobacco Use Types Packs/Day Years Used Date Smoking Tobacco: Never Assessed Comments Unknown Sex and Gender Information Value Date Recorded Sex Assigned at Not on file Legal Sex Female 4:28 PM CDT Gender Identity Not on file Sexual Orientation Not on file documented as of this encounter Miscellaneous Notes * Cerner Conversion Note - Jessenia ProviderMD - 08/01/2020 8:43 PM CDT Electronically signed by [facility] Conversion Grades 7 And 8 Teacher Cerner at 08/31/2022 5:17 PM CDT documented in this encounter Plan of Treatment Not on file documented as of this encounter Visit Diagnoses Not on filedocumented in this encounter Care Teams Dye Range Operator Cloth Relationship Specialty Start Date End Date Alan Beyer MD [address] [place] [address] PCP - General Family Medicine 06/08/23 documented as of this encounter
--- OUTSIDE RECORDS SUMMARY | 2024-11-05 10:18 | XMS_ITS | Encounter Summary ---
Author Organization [employer] Address [address] [place] [address] Care Team Providers Care Protective Services Officer Name Role Phone Alan Beyer MD Primary Care Provider [phone] Encounter Details Date Type Department Care Team (Late st Contact Info) Description 05/15/2020 Transcribed Document [facility] [place] [address] [place] [address] ProviderJessenia MD [address] [place] [address] Social History Tobacco Use Types Packs/Day Years Used Date Smoking Tobacco: Never Assessed Comments Unknown Sex and Gender Information Value Date Recorded Sex Assigned at Not on file Legal Sex Female 4:28 PM CDT Gender Identity Not on file Sexual Orientation Not on file documented as of this encounter Miscellaneous Notes * Cerner Conversion Note - Jessenia Alvarez MD - 05/15/2020 12:28 PM CROWD CONTROLLER ED Assessment Entered On: 05/15/2020 15:14 EST Performed On: 05/15/2020 15:11 EST by Caroline Carmona RN ED Quick Look Assessment Level of Consciousness : Alert, Awake Affect/Behavior : Appropriate, Calm, Cooperative Orientation : Oriented x 4 Skin Description : Normal for ethnicity Caroline Carmona RN - 05/15/2020 15:11 EST ED General-Functional Assess Preferred Communication Mode : Verbal Communication Barrier : None Primary Language : Dominican Any Spiritual/Cultural Needs or Requests : No Currently in Unsafe Situation : No Caroline Carmona RN - 05/15/2020 15:11 EST Social Habits Smoking Status : 4 or less cigarettes(less than 1/4 pack)/day in last 30 days Smokeless Tobacco Status : Never Desires Tobacco Cessation Medication : No Reason for No Tobacco Cessation Medication : ED/procedural patient only Desires Tobacco Cessation Calc : 1 Caroline Carmona RN - 05/15/2020 15:11 EST Social History (As Of: 05/15/2020 15:14:34 EST) Tobacco: 4 or less cigarettes(less than [...] (Last Updated: 05/03/2020 15:35:18 EST by Jyoti Frazier, [place]) Alcohol: Alcohol Use History No. Alcohol Use [...] ASMT, ED Cardiovascular Assessment WDL : WDL Caroline Carmona RN - 05/15/2020 15:11 EST Respiratory Respiratory Assessment WDL : WDL Caroline Carmona RN - 05/15/2020 15:11 EST Musculoskeletal Musculoskeletal Assessment WDL : WDL with exceptions Musculoskeletal Assessment Comment : generalized fatigue Caroline Carmona RN - 05/15/2020 15:11 EST Electronically signed by [facility] Conversion Immigration Case Worker Cerner at 08/31/2022 5:00 PM CDT documented in this encounter Plan of Treatment Not on file documented as of this encounter Visit Diagnoses Not on filedocumented in this encounter Care Teams Protective Services Officer Relationship Specialty Start Date End Date Alan Beyer MD [address] [place] [id number] PCP - General Family Medicine 06/08/23 documented as of this encounter
--- OUTSIDE RECORDS SUMMARY | 2024-11-05 10:18 | XMS_ITS | Encounter Summary ---
Author Organization [employer] Address [address] [place] [address] Care Team Providers Care Digital Service Engineer Name Role Phone Alan Beyer MD Primary Care Provider [phone] Encounter Details Date Type Department Care Team (Late st Contact Info) Description 05/15/2020 Transcribed Document [facility] [place] [facility] [place] [address] ProviderJessenia MD [address] [place] [address] Social History Tobacco Use Types [...] Jessenia Alvarez MD - 05/15/2020 12:28 PM JTAC ED Triage Entered On: 05/15/2020 13:25 EST Performed On: 05/15/2020 13:21 EST by Caroline Carmona RN ED Triage Across the Room Chief Complaint : Patient arrived c/o sore throat and headache, fever 11 at home. Triage Date/Time : 05/15/2020 13:21 EST Caroline Carmona RN - 05/15/2020 13:21 EST DCP GENERIC CODE Tracking Acuity : 4 - Non - Urgent Tracking Group : [facility] ED [facility] Caroline Carmona RN - 05/15/2020 13:21 EST Mode of Arrival : Ambulatory Transported to ED by : Walk in To Room Via : Ambulate Accompanied By : Unaccompanied ED Vital Signs : Document Height & Weight : Document ED Allergies : Document ED Infection Control : Yes ED Reason for Visit : Document Tetanus Immunization : Unknown Caroline Carmona RN - 05/15/2020 13:21 EST Infectious Disease History Has the patient ever been tested for COVID-19? : Yes, Patient stated results Positive Date of COVID-19 test known? : Yes Date of COVID-19 Test : 05/14/2020 EST Does patient have symptoms of COVID-19? : Yes COVID19 Screening : No Experiencing Infectious Disease Symptoms : Subjective history of fever, Headache, Sore throat Physical contact outside [place] in the last 30 days : No Infectious Disease History : Chicken pox/Shingles, Herpes, Influenza, Mononucleosis Tuberculosis Symptoms : None Caroline Carmona RN - 05/15/2020 13:21 EST Vital Signs ED Temperature Source : Oral Temperature Mode : Fahrenheit Temperature, Fahrenheit : 98.1 Deg F Clinical Temperature, C : 36.7 Deg C Oxygen Therapy Mode : Room air Peripheral Pulse Rate : 86 bpm Respiratory Rate : 16 Breaths/Min Systolic Blood Pressure : 138 mmHg Diastolic Blood Pressure : 89 mmHg Oxygen Saturation : 100 % Caroline Carmona RN - 05/15/2020 13:21 EST Allergy (As Of: 05/15/2020 13:25:51 EST) Allergies (Active) acetaminophen-oxyCODONE Estimated Onset Date: Unspecified ; Comments: Comment 1: throws up and itching ; Created By: Breanna Ivey RN; Reaction Status: Active ; Category: Drug ; Substance: acetaminophen-oxyCODONE ; Severity: Severe ; Updated By: Breanna Ivey RN; Source: Patient ; Reviewed Date: 05/15/2020 13:24 EST baclofen Estimated Onset Date: Unspecified ; Comments: Comment 1: hives and cant breath ; Created By: Breanna Ivey RN; Reaction Status: Active ; Category: Drug ; Substance: baclofen ; Type: Allergy ; Updated By: Breanna Ivey RN; Reviewed Date: 05/15/2020 13:24 EST Bactrim Estimated Onset Date: Unspecified ; Comments: Comment 1: hives not breathing ; Created By: Breanna Ivey RN; Reaction Status: Active ; Category: Drug ; Substance: Bactrim ; Type: Allergy ; Severity: Severe ; Updated By: Breanna Ivey RN; Source: Patient ; Reviewed Date: 05/15/2020 13:24 EST clindamycin Estimated Onset Date: Unspecified ; Comments: Comment 1: Hives, vomiting ; Created By: Talia Eason RN; Reaction Status: Active ; Category: Drug ; Substance: clindamycin ; Type: Allergy ; Severity: Severe ; Updated By: Talia Eason RN; Reviewed Date: 05/15/2020 13:24 EST doxycycline Estimated Onset Date: Unspecified ; Comments: Comment 1: hives and projectile vomiting ; Created By: Breanna Ivey RN; Reaction Status: Active ; Category: Drug ; Substance: doxycycline ; Type: Allergy ; Updated By: Breanan Ivey RN; Reviewed Date: 05/15/2020 13:24 EST escitalopram Estimated Onset Date: Unspecified ; Comments: Comment 1: unknown ; Created By: Breanna Ivey RN; Reaction Status: Active ; Category: Drug ; Substance: escitalopram ; Type: Allergy ; Updated By: Breanna Ivey RN; Reviewed Date: 05/15/2020 13:24 EST fentaNYL Estimated Onset Date: Unspecified ; Comments: Comment 1: hallucinate and cry ; Created By: Breanna Ivey RN; Reaction Status: Active ; Category: Drug ; Substance: fentaNYL ; Type: Allergy ; Updated By: Breanna Ivey RN; Reviewed Date: 05/15/2020 13:24 EST lidocaine topical 2% gel Estimated Onset Date: Unspecified ; Comments: Comment 1: severe swelling, itching, rash ; Created By: Breanna Ivey RN; Reaction Status: Active ; Category: Drug ; Substance: lidocaine topical 2% gel ; Type: Allergy ; Updated By: Breanna Ivey RN; Reviewed Date: 05/15/2020 13:24 EST meperidine Estimated Onset Date: Unspecified ; Comments: Comment 1: hallucinations and angry ; Created By: Breanna Ivey RN; Reaction Status: Active ; Category: Drug ; Substance: meperidine ; Type: Allergy ; Updated By: Breanna Ivey RN; Reviewed Date: 05/15/2020 13:24 EST morphine Estimated Onset Date: Unspecified ; Comments: Comment 1: severe itching ; Created By: Breanna Ivey RN; Reaction Status: Active ; Category: Drug ; Substance: morphine ; Type: Allergy ; Updated By: Breanna Ivey RN; Reviewed Date: 05/15/2020 13:24 EST penicillin Estimated Onset Date: Unspecified ; Reactions: Hives ; Comments: Comment 1: hives Comment 2: Pt has tolerated cefoxitin in 06/30, 06/01, and trying cefazolin 05/01 ; Created By: JAME ZUNIGA PharmD; Reaction Status: Active ; Category: Drug ; Substance: penicillin ; Type: Allergy ; Updated By: JAME ZUNIGA PharmD; Reviewed Date: 05/15/2020 13:24 EST tetanus immune globulin Estimated Onset Date: Unspecified ; Comments: Comment 1: adverse reaction I get tetanus and my body will swell up ; Created By: Breanna Ivey RN; Reaction Status: Active ; Category: Drug ; Substance: tetanus immune globulin ; Type: Allergy ; Updated By: Breanna Ivey RN; Reviewed Date: 05/15/2020 13:24 EST Toradol Estimated Onset Date: Unspecified ; Comments: Comment 1: feels like a softball in chest and my chest goes numb ; Created By: Breanna Ivey RN; Reaction Status: Active ; Category: Drug ; Substance: Toradol ; Type: Allergy ; Updated By: Breanna Ivey RN; Reviewed Date: 05/15/2020 13:24 EST Diagnosis Control ED (As Of: 05/15/2020 13:25:51 EST) Problems(Active) Anxiety (SNOMED CT :90158329 ) Name of Problem: Anxiety ; Recorder: ERICKA ISSA RN; Confirmation: Confirmed ; Classification: Medical ; Code: [id number] ; Contributor System: Omaze ; Last Updated: 07/26/2015 22:28 EDT ; Life Cycle Date: 07/26/2015 ; Life Cycle Status: Active ; Vocabulary: SNOMED CT Endometriosis, vagina (SNOMED CT :12246060 ) Name of Problem: Endometriosis, vagina ; Recorder: Breanna Ivey RN; Confirmation: Confirmed ; Classification: Medical ; Code: [id number] ; Contributor System: salgomedChart ; Last Updated: 05/24/2018 10:54 EST ; Life Cycle Date: 05/24/2018 ; Life Cycle Status: Active ; Vocabulary: SNOMED CT Kidney stones (SNOMED CT :956396142 ) Name of Problem: Kidney stones ; Recorder: KAYY ANDREW; Confirmation: Confirmed ; Classification: Medical ; Code: [id number] ; Contributor System: salgomedChart ; Last Updated: 06/06/2016 9:30 EST ; Life Cycle Date: 06/06/2016 ; Life Cycle Status: Active ; Vocabulary: SNOMED CT Migraine (SNOMED CT :38402250 ) Name of Problem: Migraine ; Recorder: ERICKA ISSA RN; Confirmation: Confirmed ; Classification: Medical ; Code: [id number] ; Contributor System: salgomedChart ; Last Updated: 07/26/2015 22:28 EDT ; Life Cycle Date: 07/26/2015 ; Life Cycle Status: Active ; Vocabulary: SNOMED CT S/P hysterectomy (SNOMED CT :957165766 ) Name of Problem: S/P hysterectomy ; Recorder: LEONID CASTANEDA RN; Confirmation: Confirmed ; Classification: Medical ; Code: [id number] ; Contributor System: salgomedChart ; Last Updated: 11/06/2019 20:08 EDT ; Life Cycle Date: 11/06/2019 ; Life Cycle Status: Active ; Vocabulary: SNOMED CT Shoulder pain, left (SNOMED CT :29050508 ) Name of Problem: Shoulder pain, left ; Recorder: Breanna Ivey RN; Confirmation: Confirmed ; Classification: Medical ; Code: 60014102 ; Contributor System: Omaze ; Last Updated: 05/24/2018 10:53 EST ; Life Cycle Date: 05/24/2018 ; Life Cycle Status: Active ; Vocabulary: SNOMED CT Diagnoses(Active) Chest pain Date: 05/15/2020 ; Diagnosis Type: Reason For Visit ; Confirmation: Complaint of ; Clinical Dx: Chest pain ; Classification: Medical ; Clinical Service: Non-Specified ; Code: PNED ; Probability: 0 ; Diagnosis Code: [id number] Headache Date: 05/15/2020 ; Diagnosis Type: Reason For Visit ; Confirmation: Complaint of ; Clinical Dx: Headache ; Classification: Medical ; Clinical Service: Non-Specified ; Code: PNED ; Probability: 0 ; Diagnosis Code: [id number] Throat pain - Adult Date: 05/15/2020 ; Diagnosis Type: Reason For Visit ; Confirmation: Complaint of ; Clinical Dx: Throat pain - Adult ; Classification: Medical ; Clinical Service: Non-Specified ; Code: PNED ; Probability: 0 ; Diagnosis Code: [id number] ED Height and Weight Height Source : Stated Height Entry Format : [place] Height, Feet : 5 ft(Converted to: 152 cm, 60 Inch) Height, Inches : 5 Inch(Converted to: 0 ft 5 Inch, 12.70 cm) Clinical Height : 165.1 cm Weight Source, ED : Critical estimated dosing weight Weight Entry Format : [place] Weight, Pounds : 165 lb Clinical Dosing Weight : 75 kg Body Surface Area (BSA) : 1.82 m2 Body Mass Index : 27.5 kg/m2 (HI) [place] Body Weight (IBW) : 56.59 kg Caroline Carmona RN - 05/15/2020 13:21 EST Electronically signed by [facility] Conversion Environmental Services Assistant Cerner at 08/31/2022 5:17 PM CDT documented in this encounter Plan of Treatment Not on file documented as of this encounter Visit Diagnoses Not on filedocumented in this encounter Care Teams Digital Service Engineer Relationship Specialty Start Date End Date Alan Beyer MD [address] [place] [address] PCP - General Family Medicine 06/08/23 documented as of this encounter
--- OUTSIDE RECORDS SUMMARY | 2024-11-05 10:18 | XMS_ITS | Encounter Summary ---
Author Organization [employer] Address [address] [place] [address] Care Team Providers Care Electrical Equipment Assembler Name Role Phone Alan Beyer MD Primary Care Provider [phone] Encounter Details Date Type Department Care Team (Late st Contact Info) Description 07/04/2018 Transcribed Document [facility] [place] [facility] [place] [address] ProviderJessenia MD [address] [place] [address] Social History Tobacco Use Types Packs/Day Years Used Date Smoking Tobacco: Never Assessed Comments Unknown Sex and Gender Information Value Date Recorded Sex Assigned at Not on file Legal Sex Female 4:28 PM CDT Gender Identity Not on file Sexual Orientation Not on file documented as of this encounter Miscellaneous Notes * Cerner Conversion Note - Jessenia ProviderMD - 07/04/2018 4:15 PM FREELANCE PHOTOGRAPHER [address] [place] [address] PERSON INFORMATION Name CHARLINE BOND Age 37 Years 1980 Sex Female Language Lao PCP JORGE LUIS CAMPBELL, LIGIA-CLAUDIO Marital Status Med Service Emergency Medicine Acct# Arrival 07/04/2018 11:09:00 Visit Reason Surgical problem reevaluation; FEELS LIKE SOMETHING SNAPPED UNDER INCISION Acuity 3 - Urgent LOS 000 05:06 Depart Date: 07/04/18 04:13 PM Address: [address] [place] [id number] Comment: PROVIDER INFORMATION Provider Role Assigned Unassigned GALILEA HANNAH PA ED Physician 07/04/2018 11:36:32 SHAMA CASTILLO, canning machine operator Nurse 07/04/2018 11:36:59 DIAGNOSIS Abdominal pain; Vascular calcification PHYS DOC NOTES VITALS INFORMATION Vital Sign Triage Latest Temp Source Oral Oral Temp Mode Fahrenheit Fahrenheit Temp Fahrenheit 98.9 Deg F 98.9 Deg F Temp Celsius 02 Sat 100 % 100 % Respiratory Rate 18 Breaths/Min 18 Breaths/Min Peripheral Pulse Rate 99 bpm 99 bpm Apical Heart Rate Blood Pressure 132 mmHg / 89 mmHg 132 mmHg / 89 mmHg Comment: MEDICAL INFORMATION Allergy Info: fentaNYL; acetaminophen-oxyCODONE; Toradol; Bactrim; escitalopram; lidocaine topical 2% gel; tetanus immune globulin; baclofen; morphine; penicillin; clindamycin; doxycycline; meperidine Medications: Prescription Display promethazine (promethazine 25 mg oral tablet) 1 Tab, Oral, Tab, Q4H, PRN as needed for nausea/vomiting, # 18 Tab, 0 Refill(s) traMADol (traMADol 50 mg oral tablet) 1 Tab, Oral, Tab, Q4H, PRN as needed for pain, X 1 Day(s), # 5 Tab, 0 Refill(s) Comment: DISCHARGE INFORMATION Discharge Disposition: Home Discharge Location: PATIENT EDUCATION INFORMATION Instructions: Pain Without a Known Cause; Abdominal Pain, Adult, [id number]-lb-[id number] Follow up: With: Address: When: YOU NEED TO STOP SMOKIING YOU HAVE VASCULAR CALCIFICATION IN YOUR AORTA BEYOND WHAT IS NORMAL FOR YOUR STATED AGE. GET YOUR CHOLESTEROL CHECKED EDILBERTO PUCKETT APPT WITH DR BRANCH TOMORROW Within 2 to 3 days With: Address: When: DORIS BRANCH [address], [address] [place], [place] [id number] Business (1) Within 2 to 3 days With: Address: When: Patient Resource Center Within As needed Comments: Patient has a primary care physician with [facility]. For assistance in the future with finding a new primary care physician please contact the Patient Resource Center at [phone]. With: Address: When: [address], [address] [place] [address] Business (1) Within 2 to 3 days Comment: documented in this encounter Plan of Treatment Not on file documented as of this encounter Visit Diagnoses Not on filedocumented in this encounter Care Teams Electrical Equipment Assembler Relationship Specialty Start Date End Date Alan Beyer MD [address] [place] [address] PCP - General Family Medicine 06/08/23 documented as of this encounter
--- OUTSIDE RECORDS SUMMARY | 2024-11-05 10:18 | XMS_ITS | Encounter Summary ---
Author Organization [employer] Address [address] [place] [address] Care Team Providers Care Delivery Lead Name Role Phone Alan Beyer MD Primary Care Provider [phone] Encounter Details Date Type Department Care Team (Late st Contact Info) Description 07/13/2021 Transcribed Document [facility] [place] [facility] [place] [address] ProviderJessenia MD [address] [place] [id number] Social History Tobacco Use Types Packs/Day Years Used Date Smoking Tobacco: Never Assessed Comments Unknown Sex and Gender Information Value Date Recorded Sex Assigned at Not on file Legal Sex Female 4:28 PM CDT Gender Identity Not on file Sexual Orientation Not on file documented as of this encounter Miscellaneous Notes * Cerner Conversion Note - Jessenia Alvarez MD - 07/13/2021 2:57 PM BULK PLANT MANAGER Patient: CHARLINE BOND Age: 40 years Sex: Female : 1980 Associated Diagnoses: None Author: RAYA MCDONALD MD-CAR Chief Complaint Chest pain History of Present Illness 40 year old female with past medical hx of fibromyalgia, htn, and migraines presents to ED with complaint of sharp mid epigastric chest pain shooting across chest starting last night around 2300. Denied any soa. Pain while at rest. BP was elevated at 160 upon arrival to ED. EGK negative for ischemic changes. pain free. Review of Systems Constitutional: No fever, No chills, No fatigue. Eye Ear/Nose/Mouth/Throat Respiratory: No shortness of breath, No cough. Cardiovascular: Chest pain, No palpitations, No peripheral edema. Gastrointestinal: No nausea, No vomiting. Genitourinary: No dysuria. Musculoskeletal: No joint pain. Integumentary: No rash. Neurologic: Alert and oriented X4. Health Status Allergies: Allergic Reactions (Selected) Severe [...] reactions were documented. Toradol- No reactions were documented. Current medications: (Selected) Inpatient Medications Ordered Colace: 100 mg, Oral, BID Dilaudid: 0.5 mg, IV Push, Q4H While Awake DuoNeb 0.5 mg-2.5 mg/3 mL inhalation solution: 3 mL, Nebulized Inhalation, RT_Q6H, PRN: Shortness of Breath Habitrol 7 mg/24 hr transdermal film, extended release: 1 Patch, TransDermal, Daily, PRN: Withdrawal Symptoms MiraLax: 17 Gram, Oral, Daily, PRN: Constipation Pepcid: 20 mg, Oral, Q12H Phenergan: 6.25 mg, IntraVENous, Q6H, PRN: Nausea Tylenol: 650 mg, Oral, Q4H, PRN: Pain (Mild 1-3) Zofran: 4 mg, IV Push, Q4H, PRN: Nausea Prescriptions Prescribed predniSONE 10 mg oral tablet: See Instructions, Six-day tapering Dosepak, 21 Tab, 0 Refill(s) Documented Medications Documented Claritin 24 Hour Allergy 10 mg oral tablet: 1 Tab, Oral, Daily, 30 Tab, 0 Refill(s) Robaxin-750 oral tablet: 1 Tab, Oral, Daily, 42 Tab, 0 Refill(s) Valtrex: 500 mg, Oral, Daily, fever blister, 0 Refill(s) clonazePAM 0.5 mg oral tablet: 1 Tab, Oral, BID, 0 Refill(s) lisinopril 10 mg oral tablet: 1 Tab, Oral, Daily, 30 Tab, 0 Refill(s) omeprazole: 40 mg, Oral, Daily, 0 Refill(s) Problem list: All Problems Anxiety / SNOMED CT 31163776 / Confirmed At risk for sleep apnea / IMO 94760155 / Confirmed Endometriosis, vagina / SNOMED CT 74161680 / Confirmed S/P hysterectomy / SNOMED CT 323344939 / Confirmed Kidney stones / SNOMED CT 535297788 / Confirmed Migraine / SNOMED CT 12486833 / Confirmed Shoulder pain, left / SNOMED CT 43907702 / Confirmed Histories Past Medical History: No active or resolved past medical history items have been selected or recorded. Family History: Heart attack Father Sister Coronary heart disease Father Sister Procedure history: Clavicle (961637271). Tympanostomy (0770552406). Adenoids (320531697). shoulder surgery. Gallbladder absent (681137350). Tubal ligation (418214667). Hysterectomy (746802175). Right knee (61342909). Comments: 05/03/2020 15:32 Jyoti Tilley Rn menisectomy Social History Social & Psychosocial Habits Alcohol 05/24/2018 Alcohol Use History, Social Habits No 05/03/2020 Alcohol Use History, Social Habits No Alcohol Use Frequency Rarely 07/13/2021 Total Drinks Per Week 2 Date/Time of Last Drink 1 week ago Alcohol Use Frequency Monthly Nutrition/Health 05/24/2018 Type of diet: Regular Substance [...] of Tobacco Use 17 . Physical Examination VS/Measurements Vitals Signs (last 24 hrs) Last Charted Minimum Maximum Temp 98.0 (JUL 13 01:52) 98.0 (JUL 13 01:52) 98.0 (JUL 13 01:52) Mon HR 86 (JUL 13 12:00) 78 (JUL 13 03:37) 110 (JUL 13 06:00) Periph HR 84 (JUL 13 01:52) 84 (JUL 13 01:52) 84 (JUL 13 01:52) Resp Rate H 24 (JUL 13 12:00) 15 (JUL 13 06:30) H 32 (JUL 13 10:00) SBP 140 (JUL 13 12:00) 135 (JUL 13 05:03) H 169 (JUL 13 01:52) DBP 72 (JUL 13 12:00) 72 (JUL 13 12:00) H 105 (JUL 13 01:52) MAP 105 (JUL 13 09:00) 105 (JUL 13 05:03) 105 (JUL 13 05:03) SpO2 100 (JUL 13 12:00) 98 (JUL 13 06:30) 100 (JUL 13:52) General: Alert and oriented. Eye: Normal conjunctiva. HENT: Normocephalic. Respiratory: Lungs are clear to auscultation, Respirations are non-labored, Breath sounds are equal. Cardiovascular: Normal rate, Regular rhythm, No murmur, Normal peripheral perfusion, No edema. Gastrointestinal: Soft, Non-tender, Non-distended, Normal bowel sounds. Musculoskeletal: Normal range of motion. Integumentary: Warm, Dry. Neurologic: Alert, Oriented, Normal motor function. Cognition and Speech: Speech clear and coherent. Psychiatric: Cooperative. Review / Management Results review: Labs (Last four charted values) WBC 7.3 (JUL 13) HB 12.1 (JUL 13) HCT 36.4 (JUL 13) Plt 196 (JUL 13) Na 141 (JUL 13) K L 3.1 (JUL 13) Cl 111 (JUL 13) CO2 27 (JUL 13) BUN 14 (JUL 13) Cr 0.81 (JUL 13) Glu R H 118 (JUL 13) Ca L 8.4 (JUL 13) AST 14 (JUL 13) ALT 25 (JUL 13) ALK P 76 (JUL 13) T Bili 0.2 (JUL 13) PTN 7.0 (JUL 13) ALB 3.4 (JUL 13) . Interpretation: Labs unremarkable. Impression and Plan Atypical chest pain - EKG negative for ischemic changes, High sensitivity Trop slightly elevated. 33.5 58.4 - Strong family history of acs, recommend outpatient GXT+ cardio and echo. HTN - change lisinopril to Valsartan 80mg QD. CV stable for dc home. Follow up in office in 2 weeks. documented in this encounter Plan of Treatment Not on file documented as of this encounter Visit Diagnoses Not on filedocumented in this encounter Care Teams Delivery Lead Relationship Specialty Start Date End Date Alan Beyer MD [address] [place] [address] PCP - General Family Medicine 06/08/23 documented as of this encounter
--- OUTSIDE RECORDS SUMMARY | 2024-11-05 10:18 | XMS_ITS | Encounter Summary ---
Author Organization [employer] Address [address] [place] [address] Care Team Providers Care Pyrometer Temperature Regulator Name Role Phone Alan Beyer MD Primary Care Provider [phone] Encounter Details Date Type Department Care Team (Late st Contact Info) Description 07/13/2021 Transcribed Document [facility] [place] [facility] [place] [address] ProviderJessenia MD [address] [place] [address] Social History Tobacco Use Types Packs/Day Years Used Date Smoking Tobacco: Never Assessed Comments Unknown Sex and Gender Information Value Date Recorded Sex Assigned at Not on file Legal Sex Female 4:28 PM CDT Gender Identity Not on file Sexual Orientation Not on file documented as of this encounter Miscellaneous Notes * Cerner Conversion Note - Jessenia ProviderMD - 07/13/2021 1:46 AM REGISTER IN CHANCERY Broset Violence Assessment Entered On: 07/13/2021 2:06 EST Performed On: 07/13/2021 2:05 EST by Kay Bernal RN Broset Violence Assessment Broset Violence Checklist of Symptoms : None Broset Violence Symptoms Subtotal : 0 Broset Violence Symptoms Indicator : Low risk (0) Kay Bernal RN - 07/13/2021 2:05 EST Electronically signed by Jannette [facility] Conversion Manager Social Services Cerner at 08/31/2022 5:17 PM CDT documented in this encounter Plan of Treatment Not on file documented as of this encounter Visit Diagnoses Not on filedocumented in this encounter Care Teams Pyrometer Temperature Regulator Relationship Specialty Start Date End Date Alan Beyer MD [address] [place] [address] PCP - General Family Medicine 06/08/23 documented as of this encounter
--- OUTSIDE RECORDS SUMMARY | 2024-11-05 10:18 | XMS_ITS | Encounter Summary ---
Author Organization [employer] Address [address] [place] [address] Care Team Providers Care Dewaterer Operator Name Role Phone Alan Beyer MD Primary Care Provider [phone] Encounter Details Date Type Department Care Team (Late st Contact Info) Description 07/13/2021 Transcribed Document [facility] [place] [facility] [place] [address] ProviderJessenia MD [address] [place] [address] Social History Tobacco Use Types [...] - Jessenia ProviderMD - 07/13/2021 1:46 AM GROUP EXERCISE CLASS INSTRUCTOR ED Assessment Entered On: 07/13/2021 2:06 EST Performed On: 07/13/2021 2:05 EST by Kay Bernal, TESTS SUPERINTENDENT Quick Look Assessment Level of Consciousness : Alert, Awake Affect/Behavior : Appropriate, Calm, Cooperative Orientation : Oriented x 4 Skin Temperature : Warm Skin Description : Normal for ethnicity, Carlos Kay Bernal, RN - 07/13/2021 2:05 EST ED General-Functional Assess Information Obtained From : Patient Preferred Communication Mode : Verbal Communication Barrier : None Primary Language : Serbian Any Spiritual/Cultural Needs or Requests : No Currently in Unsafe Situation : No Kay Bernal RN - 07/13/2021 2:05 EST Social Habits Smoking Status : 4 or less cigarettes(less than 1/4 pack)/day in last 30 days Smokeless Tobacco Status : Never Desires Tobacco Cessation Medication : No Reason for No Tobacco Cessation Medication : ED/procedural patient only Desires Tobacco Cessation Calc : 1 Kay Bernal RN - 07/13/2021 2:05 EST Social History (As Of: 07/13/2021 02:06:25 EST) Tobacco: 4 or less cigarettes(less than [...] : WDL with exceptions Cardiovascular Symptoms : Chest pain at rest, Chest pain with activity Chest Pain : Yes Kay Bernal RN - 07/13/2021 2:05 EST Respiratory Respiratory Assessment WDL : WDL Kay Bernal RN - 07/13/2021 2:05 EST Oxygen Therapy Oxygen Therapy Mode : Room air Kay Bernal RN - 07/13/2021 2:05 EST documented in this encounter Plan of Treatment Not on file documented as of this encounter Visit Diagnoses Not on filedocumented in this encounter Care Teams Dewaterer Operator Relationship Specialty Start Date End Date Alan Beyer MD [address] [place] [address] PCP - General Family Medicine 06/08/23 documented as of this encounter
--- OUTSIDE RECORDS SUMMARY | 2024-11-05 10:18 | XMS_ITS | Encounter Summary ---
Author Organization [employer] Address [address] [place] [address] Care Team Providers Care Wet Mixer Name Role Phone Alan Beyer MD Primary Care Provider [phone] Encounter Details Date Type Department Care Team (Late st Contact Info) Description 10/20/2018 Transcribed Document [facility] [place] [facility] [place] [address] ProviderJessenia MD [address] [place] [id number] Social History Tobacco Use Types Packs/Day Years Used Date Smoking Tobacco: Never Assessed Comments Unknown Sex and Gender Information Value Date Recorded Sex Assigned at Not on file Legal Sex Female 4:28 PM CDT Gender Identity Not on file Sexual Orientation Not on file documented as of this encounter Miscellaneous Notes * Cerner Conversion Note - Jessenia Alvarez MD - 10/20/2018 6:49 PM CDT Patient: CHARLINE BOND Age: 37 years Sex: Female : 1980 Associated Diagnoses: Hx of diarrhea; Hx of nausea and vomiting Author: TEOT MCKNIGHT PA-C Basic Information Time seen: Date & time 10/20/2018 18:50:00. History source: Patient. Arrival mode: Private vehicle. Additional information: Chief Complaint from Nursing Triage Note : Chief Complaint 10/20/2018 17:11 EDT Chief Complaint Pt c/o decreased appetite x5 days, diarrhea, nausea, vomitng, dizziness starting yesterday. . History of Present Illness The patient presents with feeling sick . The onset was 5 days ago. The course/duration of symptoms is episodic: with multiple episodes. Location: diarrhea/nausea. The degree at onset was moderate. The degree at present is minimal. Risk factors consist of none. Therapy today: none. Associated symptoms: nausea, vomiting and dizziness. Patient presents to the ER complaining of diarrhea for 5 days, nausea, few episodes of vomiting and feeling dizzy. Denies sick contacts. STates she has developed a fever today. . Review of Systems Constitutional symptoms: Fatigue, no fever, no chills. Skin symptoms: No rash, Eye symptoms: Vision unchanged. ENMT symptoms: Nasal congestion, No sore throat, Respiratory symptoms: Cough. Cardiovascular symptoms: No chest pain, no palpitations, no tachycardia. Gastrointestinal symptoms: Nausea, vomiting, diarrhea, No abdominal pain, Additional review of systems information: All other [...] documented. Morphine- No reactions were documented. Penicillin- No reactions were documented. Tetanus immune globulin- No reactions were documented. Toradol- No reactions were documented.. Menstrual history: Hysterectomy. Past Medical/ Family/ Social History Medical history Respiratory. Neurological: migraine. Psychiatric: anxiety. Surgical history: Clavicle ([id number]). Tympanostomy (7780440841). Adenoids (710547741). shoulder surgery. Gallbladder absent (991450646). Tubal ligation (070269785). Hysterectomy (503850154).. Family history: No family history items have been selected or recorded.. Social history: Social & Psychosocial Habits Alcohol [...] History None Years of Tobacco Use 17 , Reviewed as documented in chart. Problem list: Active Problems (5) Anxiety Endometriosis, vagina Kidney stones Migraine Shoulder pain, left , per nurse's notes. Physical Examination Vital Signs Vital Signs/Vital Measures 10/20/2018 17:11 EDT Temperature Source Oral Temperature Mode Fahrenheit Temperature, Fahrenheit 98.2 Deg F Clinical Temperature, C 36.8 Deg C Peripheral Pulse Rate 91 bpm Respiratory Rate 16 Breaths/Min Systolic Blood Pressure 141 mmHg HI Diastolic Blood Pressure 82 mmHg Oxygen Saturation 100 % Oxygen Therapy Mode Room air . Measurements 10/20/2018 17:11 EDT Height Source Stated Height Entry Format [place] Height/Length, KOREAN (ft) 5 ft Height/Length KORE[place] 5 Inch CLINICALHEIGHT 165.1 cm [place] Body Weight 56.59 kg Weight Source, ED Standing scale Weight Entry Format [place] Weight Finnish lb 165 lb CLINICALWEIGHT 75 kg Body Surface Area (BSA) 1.82 m2 Body Mass Index 27.5 kg/m2 HI . Oxygen Saturation 10/20/2018 17:11 EDT Oxygen Saturation 100 % . General: Alert, no acute distress. Skin: Warm, dry. Head: Normocephalic, atraumatic. Neck: Supple, trachea midline, no tenderness. Eye: Pupils are equal, round and reactive to light, extraocular movements are intact, normal conjunctiva. Ears, nose, mouth and throat: Tympanic membranes clear, oral mucosa moist. Cardiovascular: Regular rate and rhythm, Normal peripheral perfusion. Respiratory: Lungs are clear to auscultation, respirations are non-labored, Cough: Mild, dry. Gastrointestinal: Non distended. Back: Normal range of motion. Musculoskeletal: Normal ROM. Neurological: Alert and oriented to person, place, time, and situation, No focal neurological deficit observed. Psychiatric: Cooperative, appropriate mood & affect. Medical Decision Making Differential Diagnosis: Dehydration, electrolyte imbalance, urinary tract infection, viral syndrome, anxiety. Documents reviewed: Emergency department nurses' notes. Results review: Lab results : Lab Results 10/20/2018 21:10 EDT Sodium Level 144 mmol/L Potassium Level 3.2 mmol/L LOW Chloride Level 111 mmol/L Carbon Dioxide Level 26 mmol/L Anion Gap 10 Glucose Level 92 mg/dL Blood Urea Nitrogen 8 mg/dL Creatinine Level 0.78 mg/dL eGFR >60 mL/min/1.73m2 eGFR NonAfrican >60 mL/min/1.73m2 Bun/Creatinine 10.3 Calcium Level 8.8 mg/dL Protein Total 8.3 Gram/dL HI Albumin Level 4.5 Gram/dL Globulin 3.8 Gram/dL A/G Ratio 1.2 Bilirubin Total 0.3 mg/dL Alk Phos 120 Units/Liter AST 7 Units/Liter ALT 17 Units/Liter Magnesium Level 2.3 mg/dL Lipase Level 103 Units/Liter WBC 6.8 K/uL RBC 3.86 Million/uL LOW Hgb 13.1 Gram/dL Hct 40.2 % MCV 104.1 fL HI MCH 33.9 pg HI MCHC 32.6 Gram/dL Platelet Count 229 K/uL MPV 9.9 fL RDW 11.6 % Neut % 53.5 % Neut # 3.66 K/uL Lymph % 40.4 % Lymph # 2.76 K/uL Terrell % 4.8 % Terrell # 0.33 K/uL Eos % 0.7 % LOW Eos # 0.05 K/uL Baso % 0.3 % Baso # 0.02 K/uL Slide Review No IG# 0 x10(3)/uL IG% 0 % 10/20/2018 19:44 EDT Urine Type U CleanCatch Urine Color Yellow Urine Appearance Cloudy Urine Specific [place] 1.008 Urine pH Dipstick 6.0 Urine Leukocyte Esterase Negative Urine Nitrite Negative Urine Protein Dipstick Negative Urine Glucose Dipstick Negative Urine Ketones Dipstick Negative Urine Urobilinogen Dipstick 0.2 EU/dL Urine Bilirubin Dipstick Negative Urine Blood Dipstick Negative Ur RBC None Seen Ur WBC 0-2 /HPF Ur Bacteria Trace Ur Amorph 2+ Ur Epithelial Cells 5-10 /HPF . Reexamination/ Reevaluation patient has tolerated PO fluids with no vomiting or diarrhea Impression and Plan Diagnosis Hx of diarrhea - Discharge, Emergency medicine, Medical Hx of nausea and vomiting - Discharge, Emergency medicine, Medical Plan Condition: Stable. Prescriptions: Prescription Assistant News Director Pharmacy: Zofran ODT 4 mg oral tablet, disintegrating (Prescribe): 1 Tab, Oral, TID, for 3 Day(s), allow tablet to dissolve on tongue, PRN: Nausea/Vomiting, 9 Tab, 0 Refill(s) promethazine 25 mg oral tablet (Prescribe): 1 Tab, Oral, Q6H, for 3 Day(s), PRN: as needed for nausea/vomiting, 12 Tab, 0 Refill(s). Patient was given the following educational materials: Nausea and Vomiting, Adult, Qwtt-pm-Dhdx, Diarrhea, Adult, Oqmk-sa-Lkbi. Follow up with: [facility] Within As needed For assistance finding a new primary care physician please contact the Patient Resource Center at [phone]. ; [facility] BUENO Within 2 to 3 days. Counseled: Patient, Regarding diagnosis, Regarding diagnostic results, Regarding treatment plan, Regarding prescription, Patient indicated understanding of instructions. documented in this encounter Plan of Treatment Not on file documented as of this encounter Visit Diagnoses Not on filedocumented in this encounter Care Teams Wet Mixer Relationship Specialty Start Date End Date Alan Beyer MD [address] [place] [address] PCP - General Family Medicine 06/08/23 documented as of this encounter
--- OUTSIDE RECORDS SUMMARY | 2024-11-05 10:18 | XMS_ITS | Encounter Summary ---
Author Organization [employer] Address [address] [place] [address] Care Team Providers Care Instructor Physical Name Role Phone Alan Beyer MD Primary Care Provider [phone] Encounter Details Date Type Department Care Team (Late st Contact Info) Description 08/01/2020 Transcribed Document [facility] [place] [facility] [place] [address] ProviderJessenia MD [address] [place], [place] [id number] Social History Tobacco Use Types Packs/Day Years Used Date Smoking Tobacco: Never Assessed Comments Unknown Sex and Gender Information Value Date Recorded Sex Assigned at Not on file Legal Sex Female 4:28 PM CDT Gender Identity Not on file Sexual Orientation Not on file documented as of this encounter Miscellaneous Notes * Cerner Conversion Note - Jessenia Alvarez MD - 08/01/2020 7:13 PM CDT Pain Assessment Entered On: 08/01/2020 20:16 EDT Performed On: 08/01/2020 20:16 EDT by JEANNA BARROSO RN Intervention Information: HYDROmorphone Performed by JEANNA BARROSO RN on 08/01/2020 19:31:00 EDT HYDROmorphone,1mg IV Push,Peripheral Line 1 Pain Assessment Pain Assessment : Follow-up assessment Pain Scale Used : 0-10 Scale JEANNA BARROSO RN - 08/01/2020 20:16 EDT Pain Scale Intensity : 3 JEANNA BARROSO RN - 08/01/2020 20:16 EDT Image 4 - Images currently included in the form version of this document have not been included in the text rendition version of the form. documented in this encounter Plan of Treatment Not on file documented as of this encounter Visit Diagnoses Not on filedocumented in this encounter Care Teams Instructor Physical Relationship Specialty Start Date End Date Alan Beyer MD [address] [place] [address] PCP - General Family Medicine 06/08/23 documented as of this encounter
--- OUTSIDE RECORDS SUMMARY | 2024-11-05 10:18 | XMS_ITS | Encounter Summary ---
Author Organization [employer] Address [address] [place] [address] Care Team Providers Care Racking Technician Name Role Phone Alan Beyer MD Primary Care Provider [phone] Encounter Details Date Type Department Care Team (Late st Contact Info) Description 05/15/2020 Transcribed Document [facility] [place] [facility] [place] [address] ProviderJessenia MD [address] [place] [address] Social History Tobacco Use Types [...] Jessenia Alvarez MD - 05/15/2020 12:28 PM FORMULATION SCIENTIST [place] Suicide Severity Rating Scale (C-SSRS) Entered On: 05/15/2020 13:41 EST Performed On: 05/15/2020 13:41 EST by Caroline Carmona RN [place] Suicide Severity Rating Scale (C-SSRS) CSSRS Past Month Wish to be : No CSSRS Past Month Suicidal Thoughts : No CSSRS Lifetime Suicide Behavior : No Suicide Severity Rating Score : 0 Suicide Severity Rating : No Additional Care Required at this time Caroline Carmona RN - 05/15/2020 13:41 EST Electronically signed by Jannette [facility] Conversion Concrete Engineering Technician Cerner at 08/31/2022 5:19 PM CDT documented in this encounter Plan of Treatment Not on file documented as of this encounter Visit Diagnoses Not on filedocumented in this encounter Care Teams Racking Technician Relationship Specialty Start Date End Date Alan Beyer MD [address] [place] [id number] PCP - General Family Medicine 06/08/23 documented as of this encounter
--- OUTSIDE RECORDS SUMMARY | 2024-11-05 10:18 | XMS_ITS | Encounter Summary ---
Author Organization [employer] Address [address] [place] [address] Care Team Providers Care Student Name Role Phone Alan Beyer MD Primary Care Provider [phone] Encounter Details Date Type Department Care Team (Late st Contact Info) Description 05/15/2020 Transcribed Document [facility] [place] [address] ProviderJessenia MD [address] [place], [place] [id number] Social History Tobacco Use Types Packs/Day Years Used Date Smoking Tobacco: Never Assessed Comments Unknown Sex and Gender Information Value Date Recorded Sex Assigned at Not on file Legal Sex Female 4:28 PM CDT Gender Identity Not on file Sexual Orientation Not on file documented as of this encounter Miscellaneous Notes * Cerner Conversion Note - Jessenia ProviderMD - 05/15/2020 3:57 PM PILOT MANAGER Electronically signed by Jannette [facility] Conversion Water Project Manager Cerner at 08/31/2022 5:02 PM CDT documented in this encounter Plan of Treatment Not on file documented as of this encounter Visit Diagnoses Not on filedocumented in this encounter Care Teams Student Relationship Specialty Start Date End Date Alan Beyer MD [address] [place] [address] PCP - General Family Medicine 06/08/23 documented as of this encounter
--- OUTSIDE RECORDS SUMMARY | 2024-11-05 10:18 | XMS_ITS | Encounter Summary ---
Author Organization [employer] Address [address] [place] [address] Care Team Providers Care Janitorial Supervisor Name Role Phone Alan Beyer MD Primary Care Provider [phone] Encounter Details Date Type Department Care Team (Late st Contact Info) Description 07/04/2018 Transcribed Document [facility] [place] [facility] [place] [address] ProviderJessenia MD [address] [place] [id number] Social History Tobacco Use Types Packs/Day Years Used Date Smoking Tobacco: Never Assessed Comments Unknown Sex and Gender Information Value Date Recorded Sex Assigned at Not on file Legal Sex Female 4:28 PM CDT Gender Identity Not on file Sexual Orientation Not on file documented as of this encounter Miscellaneous Notes * Cerner Conversion Note - Jessenia Alvarez MD - 07/04/2018 11:53 AM SALES TECHNICIAN HOME THEATER Patient: REFUGIO BOND Age: 37 years Sex: Female : 1980 Associated Diagnoses: Abdominal pain; Vascular calcification Author: GALILEA HANNAH PA Basic Information Time seen: Date & time 07/04/2018 11:55:00. History source: Patient, friend. Arrival mode: Private vehicle. History limitation: None. Additional information: Chief Complaint from Nursing Triage Note : Chief Complaint 07/04/2018 11:18 EST Chief Complaint PT is 3 wks post op from hysterectomy, states something under right lower incision snapped like a rubberband last night , called Dr Vallutous this morning and was told to come to ED, pain rated 8/10 . History of Present Illness The patient presents for surgical problem re-evaluation and PT HAD A LAP HYSTERECTOMY 3 WEEKS AGO HERE WITH DR BRANCH. AT 2 AM FELT A POP IN RLQ AND PAIN IS 8/10 CALLED MD OFFICE THIS AM AND SENT HERE FOR EVALUATION. STILL HAS HER APPENDIX NO VAGINAL BLEEDING WITH THIS. IS NAUSEATED. Previous treatment: inpatient surgery 3 weeks ago. Post op course: improving. Incision complaints: pain, severe 8 /10. Risk factors consist of none. Therapy today: none. Associated symptoms: abdominal pain. Review of Systems Constitutional symptoms: Decreased activity. Respiratory symptoms: No shortness of breath, Cardiovascular symptoms: No chest pain, Gastrointestinal symptoms: Abdominal pain, moderate, dull, achy, nausea, no vomiting, no diarrhea, no constipation. Genitourinary symptoms: No dysuria, Musculoskeletal symptoms: No back pain, Neurologic symptoms: No headache, Hematologic/Lymphatic symptoms: Bleeding tendency negative, bruising tendency [...] were documented.. Medications: (Selected) Inpatient Medications Ordered Gastrografin (Adult): 30 mL, Oral, 1-Time promethazine: 12.5 mg, IV Push, 1-Time Prescriptions Prescribed Flagyl 500 mg oral tablet: 1 Tab, Oral, Q12H, for 7 Day(s), do not drink alcohol not to exceed 4 g/day, 14 Tab, 0 Refill(s) promethazine 25 mg oral tablet: 1 Tab, Oral, Q4H, PRN: as needed for nausea/vomiting, 60 Tab, 0 Refill(s) Documented Medications Documented Karine: Oral, 0 Refill(s) Premarin: Oral, Daily, 0 Refill(s) Robaxin-750 oral tablet: 1 Tab, Oral, Daily, 42 Tab, 0 Refill(s) Valtrex: Oral, 0 Refill(s) ibuprofen: 0 Refill(s) vitamin E: 100 Int Units, Oral, Daily, 0 Refill(s). Immunizations: Up to date. Past Medical/ Family/ Social History Surgical history: Clavicle ([id number]). Tympanostomy ([id number]). Adenoids ([id number]). shoulder surgery. Gallbladder absent ([id number]). Tubal ligation ([id number]). Hysterectomy ([id number]).. Family history: Not significant. Social history: Social & Psychosocial Habits Alcohol [...] Use 17 . Problem list: Active Problems (5) Anxiety Endometriosis, vagina Kidney stones Migraine Shoulder pain, left . Physical Examination Vital Signs Vital Signs/Vital Measures 07/04/2018 11:18 EST Temperature Source Oral Temperature Mode Fahrenheit Temperature, Fahrenheit 98.9 Deg F Clinical Temperature, C 37.2 Deg C Peripheral Pulse Rate 99 bpm Respiratory Rate 18 Breaths/Min Systolic Blood Pressure 132 mmHg Diastolic Blood Pressure 89 mmHg Oxygen Saturation 100 % . Oxygen Saturation 07/04/2018 11:18 EST Oxygen Saturation 100 % . General: Alert, no acute distress. Skin: Warm, dry, pink, intact, no pallor, no rash, normal for ethnicity. Eye: Normal conjunctiva. Neck: Supple. Cardiovascular: Regular rate and rhythm, No murmur, Normal peripheral perfusion. Respiratory: Lungs are clear to auscultation, respirations are non-labored, breath sounds are equal, Symmetrical chest wall expansion. Gastrointestinal: Soft, Nontender, Non distended. Back: Normal range of motion. Musculoskeletal: Normal ROM. Neurological: No focal neurological deficit observed, normal sensory observed, normal motor observed, normal speech observed, normal coordination observed. Psychiatric: Cooperative, appropriate mood & affect, normal judgment. Medical Decision Making Results review: Lab results : Lab Results 07/04/2018 13:19 EST Urine Type U CleanCatch Urine Color Yellow Urine Appearance Clear Urine Specific [place] 1.002 LOW Urine pH Dipstick 6.0 Urine Leukocyte Esterase Negative Urine Nitrite Negative Urine Protein Dipstick Negative Urine Glucose Dipstick Negative Urine Ketones Dipstick Negative Urine Urobilinogen Dipstick 0.2 EU/dL Urine Bilirubin Dipstick Negative Urine Blood Dipstick Negative 07/04/2018 13:12 EST Lactic Acid Level 1.4 mmol/L 07/04/2018 11:58 EST Sodium Level 139 mmol/L Potassium Level 3.3 mmol/L LOW Chloride Level 108 mmol/L Carbon Dioxide Level 24 mmol/L Anion Gap 10 Glucose Level 91 mg/dL Blood Urea Nitrogen 7 mg/dL Creatinine Level 0.71 mg/dL eGFR >60 mL/min/1.73m2 eGFR NonAfrican >60 mL/min/1.73m2 Bun/Creatinine 9.9 Calcium Level 8.5 mg/dL Protein Total 8.6 Gram/dL HI Albumin Level 4.5 Gram/dL Globulin 4.1 Gram/dL A/G Ratio 1.1 Bilirubin Total 0.3 mg/dL Bilirubin Direct <0.1 mg/dL Alk Phos 122 Units/Liter AST 14 Units/Liter ALT 17 Units/Liter Lactic Acid Level 2.1 mmol/L CRIT WBC 8.6 K/uL RBC 4.19 Million/uL Hgb 14.3 Gram/dL Hct 42.2 % MCV 100.7 fL HI MCH 34.1 pg HI MCHC 33.9 Gram/dL Platelet Count 231 K/uL MPV 10.0 fL RDW 11.9 % Neut % 61.8 % Neut # 5.31 K/uL Lymph % 31.5 % Lymph # 2.71 K/uL Isabella % 4.9 % Isabella # 0.42 K/uL Eos % 1.4 % Eos # 0.12 K/uL Baso % 0.2 % Baso # 0.02 K/uL Slide Review No IG# 0 x10(3)/uL IG% 0 % PT 9.8 Second(s) INR 1.0 PTT 27.5 Second(s) . Radiology results: Radiology Results (Last 48 hours) [id number] -- 07/04/2018 11:09 CT Abdomen Pelvis W (07/04/2018 13:51) Result: CT SCAN OF THE ABDOMEN AND PELVIS WITH CONTRAST 07/04/2018 11:52 AM HISTORY: Epigastric pain, hysterectomy 3 weeks ago.COMPARISON: June 28, 2018.PROCEDURE: The patient was injected with IV contrast. Oral contrast wasadministered. Axial images were obtained from the lung bases to thepubic symphysis by computed tomography. This study was performed withtechniques to keep radiation doses as low as reasonably achievable,(ALARA). Individualized dose reduction techniques using automatedexposure control or adjustment of mA and/or kV according to the patientsize were employed.FINDINGS: ABDOMEN: The lung bases are clear. The heart is normal in size. Theliver is homogenous with no focal abnormality. There are multiple rightupper quadrant surgical clips consistent with cholecystectomy. Thespleen is unremarkable. No adrenal mass is present. The pancreas isunremarkable. The kidneys are unremarkable, without evidence of mass orhydronephrosis. There are vascular calcifications and plaque within thedistal abdominal aorta. Findings are advanced for the patient's age. Theaorta is normal in caliber. There is no free fluid or adenopathy. Thereis a tiny umbilical hernia containing fat.PELVIS: The patient is status post hysterectomy. The vaginal cuff isnormal. The right ovary is visualized and appears normal. There ismoderate left-sided stool. The GI tract demonstrates no obstruction. Theappendix is not identified. The urinary bladder is unremarkable. Thereis no free fluid, adenopathy, or inflammatory process. There are noinguinal hernias identified.IMPRESSION: Vascular calcifications and plaque within the distalabdominal aorta are advanced for the patient's age. Recommend smokingcessation.Moderate stool in the left colon.No complications from hysterectomy of 3 weeks ago. Images reviewed, interpreted, and dictated by Dr. Gino Cota.Transcribed by Sha Lyn.I have personally viewed, interpreted and dictated the examination. Ihave read and agree with the above final transcribed report. . Reexamination/ Reevaluation Vital signs informed all fidng she has appt with dr branch tomorrow and will quit asmoking and have cholesterol checked Impression and Plan Diagnosis Abdominal pain - Discharge, Emergency medicine, Medical Vascular calcification - Discharge, Emergency medicine, Medical Plan Condition: Improved, Stable, Guarded. Disposition: Discharged Admit/Transfer/Discharge: Discharge (Order): Start: 07/04/2018 15:27 EST, Discharge to: Home. Prescriptions: Prescription Ophthalmic Assistant Pharmacy: promethazine 25 mg oral tablet (Prescribe): 1 Tab, Oral, Q4H, for 3 Day(s), PRN: as needed for nausea/vomiting, 18 Tab, 0 Refill(s) traMADol 50 mg oral tablet (Prescribe): 1 Tab, Oral, Q4H, for 1 Day(s), PRN: as needed for pain, 5 Tab, 0 Refill(s), In my professional medical judgment, Opioids and/or Other Controlled Substances (i.e. OOCS) are clinically indicated in the treatment of this patient based on the medical documentation contained in this chart. TESS was queried. I reviewed the report. I counseled the patient as clinically appropriate about the risks and benefits of OOCS treatment.. Patient was given the following educational materials: Abdominal Pain, Adult, [id number], Pain Without a Known Cause. Limitations: Limited activity. Follow up with: Patient Resource Center Within As needed Patient has a primary care physician with Eveline Bueno. For assistance in the future with finding a new primary care physician please contact the Patient Resource Center at [phone].; EVELINE BUENO Within 2 to 3 days; DORIS BRANCH Within 2 to 3 days; YOU NEED TO STOP SMOKIING YOU HAVE VASCULAR CALCIFICATION IN YOUR AORTA BEYOND WHAT IS NORMAL FOR YOUR STATED AGE. GET YOUR CHOLESTEROL CHECKED EDILBERTO P YOUR APPT WITH DR BRANCH TOMORROW Within 2 to 3 days. Counseled: Patient, Friend, Regarding diagnosis, Regarding diagnostic results, Regarding treatment plan, Regarding prescription, Patient indicated understanding of instructions. Electronically signed by Trevon Bhatia Conversion Estimator Printing Plate Making Cerner at 08/31/2022 5:21 PM CDT documented in this encounter Plan of Treatment Not on file documented as of this encounter Visit Diagnoses Not on filedocumented in this encounter Care Teams Janitorial Supervisor Relationship Specialty Start Date End Date Alan Beyer MD [address] [place] [address] PCP - General Family Medicine 1/26/24 documented as of this encounter
--- OUTSIDE RECORDS SUMMARY | 2024-11-05 10:18 | XMS_ITS | Encounter Summary ---
Author Organization [employer] Address [address] [place] [address] Care Team Providers Care Car Repairer Helper Name Role Phone Alan Beyer MD Primary Care Provider [phone] Encounter Details Date Type Department Care Team (Late st Contact Info) Description 07/04/2018 Transcribed Document [facility] [place] [facility] [place] [address] ProviderJessenia MD [address] [place] [address] Social History Tobacco Use Types Packs/Day Years Used Date Smoking Tobacco: Never Assessed Comments Unknown Sex and Gender Information Value Date Recorded Sex Assigned at Not on file Legal Sex Female 4:28 PM CDT Gender Identity Not on file Sexual Orientation Not on file documented as of this encounter Miscellaneous Notes * Cerner Conversion Note - Jessenia Alvarez MD - 07/04/2018 4:11 PM WAX BALL MOLDER ED Discharge Entered On: 07/04/2018 16:11 EST Performed On: 07/04/2018 16:11 EST by SHAMA CASTILLO Rn Discharge Process Patient Disposition : Discharge Personal Belongings With Patient : Yes Patient Education Completed : Yes Teaching Evaluation : Verbalizes understanding IV Discontinued : Yes Nursing Documentation Completed : Yes SHAMA CASTILLO Rn - 07/04/2018 16:11 EST ED Discharge Discharge To : Home with ambulatory/outpatient follow-up Mode Of Departure : Ambulatory Accompanied By : Mother Discharge Instructions Reviewed With, Opportunity For Questions Given : Patient Prescriptions Given to Patient : Yes Number of Prescriptions Given : 2 SHAMA CASTILLO Rn - 07/04/2018 16:11 EST documented in this encounter Plan of Treatment Not on file documented as of this encounter Visit Diagnoses Not on filedocumented in this encounter Care Teams Car Repairer Helper Relationship Specialty Start Date End Date Alan Beyer MD [address] [place] [address] PCP - General Family Medicine 06/08/23 documented as of this encounter
--- OUTSIDE RECORDS SUMMARY | 2024-11-05 10:18 | XMS_ITS | Encounter Summary ---
Author Organization [facility] [employer] Address [address] [place] [address] Care Team Providers Care Therapeutic Consultant Name Role Phone Alan Beyer MD Primary Care Provider [phone] Encounter Details Date Type Department Care Team (Late st Contact Info) Description 08/01/2020 Transcribed Document [facility] [place] [facility] [place] [address] ProviderJessenia MD [address] [place] [address] [id number] Social History Tobacco Use Types Packs/Day Years Used Date Smoking Tobacco: Never Assessed Comments Unknown Sex and Gender Information Value Date Recorded Sex Assigned at Not on file Legal Sex Female 4:28 PM CDT Gender Identity Not on file Sexual Orientation Not on file documented as of this encounter Miscellaneous Notes * Cerner Conversion Note - Jessenia Alvarez MD - 08/01/2020 7:18 PM CDT Patient: CHARLINE BOND Age: 39 years Sex: Female : 1980 Associated Diagnoses: Acute abdominal pain Author: FRANCOISE BARRETT APRN-EMR Basic Information Time seen: Date & time 08/01/2020 19:11:00. History source: Patient. Arrival mode: Private vehicle. History limitation: None. Additional information: Chief Complaint from Nursing Triage Note : Chief Complaint 08/01/2020 19:04 EDT Chief Complaint Pt co Right sided flank pain and RLQ pain that began this Am Pt is calm alert skinpwd Feels nauseated. . History of Present Illness The patient presents with flank pain and see note. 39 year old female with past medical hx of kidney stones, anxiety, and endometriosis presents to ED with complaint of right sided flankpain and nausea since this morning. reports feels like prior kidney stones. Thinks might have passed a stone when arrived to ed. Denies fever or chills. . Review of Systems Constitutional symptoms: No fever, Skin symptoms: No rash, Eye symptoms: no recent vision change, no recent vision change. ENMT symptoms: No nasal congestion, Respiratory symptoms: No cough, Cardiovascular symptoms: No syncope, Gastrointestinal symptoms: Abdominal pain, mild, right flank, no nausea, no vomiting. Musculoskeletal symptoms: No back [...] were documented.. Medications: (Selected) Inpatient Medications Ordered Dilaudid: 1 mg, IV Push, 1-Time Zofran: 4 mg, IV Push, 1-Time Prescriptions Prescribed Zofran ODT 4 mg oral [...] as documented in chart. Surgical history: Clavicle ([id number]). Tympanostomy ([id number]). Adenoids ([id number]). shoulder surgery. Gallbladder absent ([id number]). Tubal ligation ([id number]). Hysterectomy ([id number]). Right knee ([id number]). Comments: 05/03/2020 15:32 Jyoti Tilley Rn menisectomy, [...] Physical Examination Vital Signs Vital Signs/Vital Measures 08/01/2020 19:04 EDT Systolic Blood Pressure 176 mmHg HI Diastolic Blood Pressure 80 mmHg Temperature Source Tympanic Temperature Mode Fahrenheit Temperature, Fahrenheit 98.0 Deg F Clinical Temperature, C 36.7 Deg C Peripheral Pulse Rate 106 bpm HI Respiratory Rate 18 Breaths/Min Oxygen Saturation 98 % Oxygen Therapy Mode Room air . Measurements 08/01/2020 19:04 EDT Height Source Measured Height Entry Format [place] Height/Length, VIET[place]ESE (ft) 5 ft Height/Length VI[place]ESE 5 Inch CLINICALHEIGHT 165.1 cm [place] Body Weight 56.59 kg Weight Source, ED Standing scale Weight Entry Format [place] Weight Czech lb 169 lb CLINICALWEIGHT 76.82 kg Body Surface Area (BSA) 1.84 m2 Body Mass Index 28.2 kg/m2 HI . Oxygen Saturation 08/01/2020 19:04 EDT Oxygen Saturation 98 % . General: Alert, no acute distress. Skin: Warm, intact, no rash. Head: Normocephalic, atraumatic. Neck: Supple, trachea midline. Eye: Pupils are equal, round and reactive to light, vision unchanged. Ears, nose, mouth and throat: Oral mucosa moist, no pharyngeal erythema or exudate. Cardiovascular: Regular rate and rhythm, No murmur, Normal peripheral perfusion, No edema. Respiratory: Lungs are clear to auscultation, respirations are non-labored, breath sounds are equal, Symmetrical chest wall expansion. Chest wall: No deformity. Back: Normal range of motion, Normal alignment. Musculoskeletal: Normal ROM, no swelling, no deformity. Gastrointestinal: Soft, Nontender, Non distended, Normal bowel sounds, No organomegaly. Neurological: Alert and oriented to person, place, time, and situation, No focal neurological deficit observed, CN II-XII intact, normal motor observed, normal speech observed. Lymphatics Psychiatric: Cooperative, appropriate mood & affect, normal judgment. Medical Decision Making Differential Diagnosis: Abdominal pain, Appendicitis, bowel obstruction, bowel perforation, renal stone, ureteral stone, urinary tract infection, pyelonephritis. Documents reviewed: Emergency department nurses' notes. Results review: Lab results : Lab Results 08/01/2020 19:45 EDT Sodium Level 141 mmol/L Potassium Level 3.8 mmol/L Chloride Level 110 mmol/L Carbon Dioxide Level 24 mmol/L Anion Gap 11 Glucose Level 92 mg/dL Blood Urea Nitrogen 17 mg/dL Creatinine Level 0.66 mg/dL eGFR >60 mL/min/1.73m2 eGFR NonAfrican >60 mL/min/1.73m2 Bun/Creatinine 25.8 HI Calcium Level 8.7 mg/dL Protein Total 7.4 Gram/dL Albumin Level 3.9 Gram/dL Globulin 3.5 Gram/dL A/G Ratio 1.1 Bilirubin Total 0.3 mg/dL Alk Phos 69 Units/Liter AST 9 Units/Liter ALT 15 Units/Liter 08/01/2020 19:14 EDT WBC 8.2 K/uL RBC 3.31 Million/uL LOW Hgb 11.2 Gram/dL Hct 33.3 % LOW MCV 100.6 fL HI MCH 33.8 pg HI MCHC 33.6 Gram/dL Platelet Count 201 K/uL MPV 9.9 fL RDW 11.9 % Neut % 63.4 % Neut # 5.21 K/uL Lymph % 29.6 % Lymph # 2.43 K/uL Stephenson % 4.9 % Stephenson # 0.40 K/uL Eos % 1.7 % Eos # 0.14 K/uL Baso % 0.2 % Baso # 0.02 K/uL Slide Review No IG# 0 x10(3)/uL IG% 0 % Urine Type. U CleanCatch Urine Color Yellow Urine Appearance Clear Urine Specific [place] 1.017 Urine pH Dipstick 6.5 Urine Leukocyte Esterase Negative Urine Nitrite Negative Urine Protein Dipstick Negative Urine Glucose Dipstick Negative Urine Ketones Dipstick Negative Urine Urobilinogen Dipstick 0.2 EU/dL Urine Bilirubin Dipstick Negative mg/dL Urine Blood Dipstick Negative Urine Culture if Indicated Not Indicated HCG Urine Qualitative Negative . Radiology results: Radiology Results (Last 48 hours) [id number] -- 08/01/2020 17:35 CT Abdomen Pelvis WO (08/01/2020 20:05) Result: CT SCAN OF THE ABDOMEN AND PELVIS WITHOUT CONTRAST 08/01/2020 7:14 PMHISTORY:Right flank pain.PROCEDURE: Axial CT images were obtained from the lung bases to the pubic symphysiswithout IV contrast. Reformatted images were generated from the axialdata set and provided for interpretation. This study was performed withtechniques to keep radiation doses as low as reasonably achievable,(ALARA). Individualized dose reduction techniques using automatedexposure control or adjustment of mA and/or kV according to the patientsize were employed.COMPARISON: 11/06/2019.FINDINGS: Lack of IV contrast limits evaluation of the abdominal and pelvic solidorgans.LOWER CHEST:The heart is normal in size. Lung bases are clear.ABDOMEN/PELVIS:Liver, gallbladder and bile ducts:Unenhanced liver is grossly unremarkable without definite focalabnormality. Prior cholecystectomy. No definite biliary ductaldilatation. Adrenal glands:The adrenal glands are morphologically unremarkable without suspiciouslesion.Kidneys, ureters and urinary bladder:Small bilateral nonobstructing kidney stones. No hydronephrosis.Unremarkable urinary bladder.Spleen:The spleen is normal in size.Pancreas:The pancreas is grossly unremarkable. Gastrointestinal system and mesentery:There is no evidence of bowel obstruction. The appendix is visualizedand unremarkable. No significant mesenteric inflammation.Lymph nodes:No definite pathologically enlarged abdominal or pelvic lymph nodes arepresent within the limits of a noncontrast enhanced examination.Vessels:The abdominal aorta is normal in caliber. The inferior vena cava isunremarkable.Peritoneum:No free intraperitoneal fluid or pneumoperitoneum.Pelvic viscera:Prior hysterectomy.Body wall:No acute findings. No significant body wall hernias.Bones:No acute fracture.IMPRESSION: No acute findings in the abdomen or pelvis to account for the patient'ssymptoms.Nonobstructing bilateral kidney stones. No hydronephrosis.Images personally reviewed, interpreted and dictated by Sneha Rockwell . Notes: Labs unremarkable, ct negative for stone, appendix visualized and unremarkable. Discussed findings with patient. patient advised to follow up with pcp, return as needed. patient is agreeable. . Impression and Plan Diagnosis Acute abdominal pain - Discharge, Emergency medicine, Medical Plan Condition: Stable. Disposition: Medically cleared, Discharged Admit/Transfer/Discharge: Discharge (Order): Start: 08/01/2020 20:43 EDT, Discharge to: Home. Patient was given the following educational materials: Abdominal Pain, Adult. Follow up with: ; Follow up with primary care provider Within 2 to 3 days Rest, fluids, zofran as needed. follow up with pcp. Return as needed. . Counseled: Patient, Regarding diagnosis, Regarding diagnostic results, Regarding treatment plan, Regarding prescription, Patient indicated understanding of instructions. documented in this encounter Plan of Treatment Not on file documented as of this encounter Visit Diagnoses Not on filedocumented in this encounter Care Teams Therapeutic Consultant Relationship Specialty Start Date End Date Alan Beyer MD [address] [place] [address] PCP - General Family Medicine 06/08/23 documented as of this encounter
--- OUTSIDE RECORDS SUMMARY | 2024-11-05 10:18 | XMS_ITS | Encounter Summary ---
Author Organization [employer] Address [address] [place] [address] Care Team Providers Care Heating And Cooling Technician Name Role Phone Alan Beyer MD Primary Care Provider [phone] Encounter Details Date Type Department Care Team (Late st Contact Info) Description 07/13/2021 Transcribed Document [facility] [place] [facility] [place] [address] ProviderJessenia MD [address] [place] [address] Social History Tobacco Use Types [...] - Jessenia ProviderMD - 07/13/2021 1:46 AM MACHINE SET UP TECHNICIAN [place] Suicide Severity Rating Scale (C-SSRS) Entered On: 07/13/2021 2:06 EST Performed On: 07/13/2021 2:05 EST by Kay Bernal RN [place] Suicide Severity Rating Scale (C-SSRS) CSSRS Past Month Wish to be : No CSSRS Past Month Suicidal Thoughts : No CSSRS Lifetime Suicide Behavior : No Suicide Severity Rating Score : 0 Suicide Severity Rating : No Additional Care Required at this time Kay Bernal RN - 07/13/2021 2:05 EST Electronically signed by Jannette [facility] Conversion Personal Financial Counselor Cerner at 08/31/2022 5:06 PM CDT documented in this encounter Plan of Treatment Not on file documented as of this encounter Visit Diagnoses Not on filedocumented in this encounter Care Teams Heating And Cooling Technician Relationship Specialty Start Date End Date Alan Beyer MD [address] [place] [address] PCP - General Family Medicine 06/08/23 documented as of this encounter
--- OUTSIDE RECORDS SUMMARY | 2024-11-05 10:18 | XMS_ITS | Encounter Summary ---
Author Organization [employer] [facility] [employer] Address [address] [place] [address] Care Team Providers Care Director Radiation Oncology Name Role Phone Alan Beyer MD Primary Care Provider [phone] Encounter Details Date Type Department Care Team (Late st Contact Info) Description 08/01/2020 Transcribed Document [facility] [place] [facility] [place] [address] ProviderJessenia MD [address] [place] [address] Social History Tobacco Use Types [...] MD - 08/01/2020 5:35 PM CDT ED Triage Entered On: 08/01/2020 19:06 EDT Performed On: 08/01/2020 19:04 EDT by OBEY MONROE, [employer] MANAGER Triage Across the Room Chief Complaint : Pt co Right sided flank pain and RLQ pain that began this Am Pt is calm alert skinpwd Feels nauseated. Triage Date/Time : 08/01/2020 19:04 EDT OBEY MONROE RN - 08/01/2020 19:04 EDT DCP GENERIC CODE Tracking Acuity : 3 - Urgent Tracking Group : [facility] [place] OBEY MONROE RN - 08/01/2020 19:04 EDT Mode of Arrival : Ambulatory Transported to ED by : Private vehicle To Room Via : Ambulate Accompanied By : Unaccompanied ED Vital Signs : Document Height & Weight : Document ED Allergies : Document ED Reason for Visit : Document Status : Patient denies Tetanus Immunization : Unknown OBEY MONROE RN - 08/01/2020 19:04 EDT Infectious Disease History Has the patient ever been tested for COVID-19? : Yes, Patient stated results Positive Date of COVID-19 test known? : No Does patient have symptoms of COVID-19? : No COVID19 Screening : No Experiencing Infectious Disease Symptoms : No symptoms Physical contact outside [place] in the last 30 days : No Infectious Disease History : Chicken pox/Shingles, Herpes, Influenza, Mononucleosis Tuberculosis Symptoms : None OBEY MONROE RN - 08/01/2020 19:04 EDT Vital Signs ED Temperature Source : Tympanic Temperature Mode : Fahrenheit Temperature, Fahrenheit : 98.0 Deg F ED Pain : Yes Clinical Temperature, C : 36.7 Deg C Oxygen Therapy Mode : Room air Peripheral Pulse Rate : 106 bpm (HI) Respiratory Rate : 18 Breaths/Min Systolic Blood Pressure : 176 mmHg (HI) Diastolic Blood Pressure : 80 mmHg Oxygen Saturation : 98 % OBEY MONROE RN - 08/01/2020 19:04 EDT Allergy (As Of: 08/01/2020 19:06:34 EDT) Allergies (Active) acetaminophen-oxyCODONE Estimated Onset Date: Unspecified ; Comments: Comment 1: throws up and itching ; Created By: Breanna Ivey Rn; Reaction Status: Active ; Category: Drug ; Substance: acetaminophen-oxyCODONE ; Severity: Severe ; Updated By: Breanna Ivey Rn; Source: Patient ; Reviewed Date: 05/15/2020 13:33 EST baclofen Estimated Onset Date: Unspecified ; Comments: Comment 1: hives and cant breath ; Created By: Breanna Ivey Rn; Reaction Status: Active ; Category: Drug ; Substance: baclofen ; Type: Allergy ; Updated By: Breanna Ivey Rn; Reviewed Date: 05/15/2020 13:33 EST Bactrim Estimated Onset Date: Unspecified ; Comments: Comment 1: hives not breathing ; Created By: Breanna Ivey Rn; Reaction Status: Active ; Category: Drug ; Substance: Bactrim ; Type: Allergy ; Severity: Severe ; Updated By: Breanna Ivey Rn; Source: Patient ; Reviewed Date: 05/15/2020 13:33 EST clindamycin Estimated Onset Date: Unspecified ; Comments: Comment 1: Hives, vomiting ; Created By: Talia Eason RN; Reaction Status: Active ; Category: Drug ; Substance: clindamycin ; Type: Allergy ; Severity: Severe ; Updated By: Talia Eason RN; Reviewed Date: 05/15/2020 13:33 EST doxycycline Estimated Onset Date: Unspecified ; Comments: Comment 1: hives and projectile vomiting ; Created By: Breanna Ivey Rn; Reaction Status: Active ; Category: Drug ; Substance: doxycycline ; Type: Allergy ; Updated By: Breanna Ivey Rn; Reviewed Date: 05/15/2020 13:33 EST escitalopram Estimated Onset Date: Unspecified ; Comments: Comment 1: unknown ; Created By: Breanna Ivey Rn; Reaction Status: Active ; Category: Drug ; Substance: escitalopram ; Type: Allergy ; Updated By: Breanna Ivey Rn; Reviewed Date: 05/15/2020 13:33 EST fentaNYL Estimated Onset Date: Unspecified ; Comments: Comment 1: hallucinate and cry ; Created By: Breanna Ivey Rn; Reaction Status: Active ; Category: Drug ; Substance: fentaNYL ; Type: Allergy ; Updated By: Breanna Ivey Rn; Reviewed Date: 05/15/2020 13:33 EST lidocaine topical 2% gel Estimated Onset Date: Unspecified ; Comments: Comment 1: severe swelling, itching, rash ; Created By: Breanna Ivey Rn; Reaction Status: Active ; Category: Drug ; Substance: lidocaine topical 2% gel ; Type: Allergy ; Updated By: Breanna Ivey Rn; Reviewed Date: 05/15/2020 13:33 EST meperidine Estimated Onset Date: Unspecified ; Comments: Comment 1: hallucinations and angry ; Created By: Breanna Ivey Rn; Reaction Status: Active ; Category: Drug ; Substance: meperidine ; Type: Allergy ; Updated By: Breanna Ivey Rn; Reviewed Date: 05/15/2020 13:33 EST morphine Estimated Onset Date: Unspecified ; Comments: Comment 1: severe itching ; Created By: Breanna Ivey Rn; Reaction Status: Active ; Category: Drug ; Substance: morphine ; Type: Allergy ; Updated By: Breanna Ivey Rn; Reviewed Date: 05/15/2020 13:33 EST penicillin Estimated Onset Date: Unspecified ; Reactions: Hives ; Comments: Comment 1: hives Comment 2: Pt has tolerated cefoxitin in 06/30, 06/01, and trying cefazolin 05/01 ; Created By: JAME ZUNIGA PharmD; Reaction Status: Active ; Category: Drug ; Substance: penicillin ; Type: Allergy ; Updated By: JAME ZUNIGA PharmD; Reviewed Date: 05/15/2020 13:33 EST tetanus immune globulin Estimated Onset Date: Unspecified ; Comments: Comment 1: adverse reaction I get tetanus and my body will swell up ; Created By: Breanna Ivey Rn; Reaction Status: Active ; Category: Drug ; Substance: tetanus immune globulin ; Type: Allergy ; Updated By: Breanna Ivey Rn; Reviewed Date: 05/15/2020 13:33 EST Toradol Estimated Onset Date: Unspecified ; Comments: Comment 1: feels like a softball in chest and my chest goes numb ; Created By: Breanna Ivey Rn; Reaction Status: Active ; Category: Drug ; Substance: Toradol ; Type: Allergy ; Updated By: Breanna Ivey Rn; Reviewed Date: 05/15/2020 13:33 EST Diagnosis Control ED (As Of: 08/01/2020 19:06:34 EDT) Problems(Active) Anxiety (SNOMED CT :74749271 ) Name of Problem: Anxiety ; Recorder: ERICKA ISSA RN; Confirmation: Confirmed ; Classification: Medical ; Code: [id number] ; Contributor System: [employer] ; Last Updated: 07/26/2015 22:28 EDT ; Life Cycle Date: 07/26/2015 ; Life Cycle Status: Active ; Vocabulary: SNOMED CT Endometriosis, vagina (SNOMED CT :31470682 ) Name of Problem: Endometriosis, vagina ; Recorder: Breanna Ivey RN; Confirmation: Confirmed ; Classification: Medical ; Code: [id number] ; Contributor System: PowerChart ; Last Updated: 05/24/2018 10:54 EST ; Life Cycle Date: 05/24/2018 ; Life Cycle Status: Active ; Vocabulary: SNOMED CT Kidney stones (SNOMED CT :675399230 ) Name of Problem: Kidney stones ; Recorder: KAYY ANDREW; Confirmation: Confirmed ; Classification: Medical ; Code: [id number] ; Contributor System: [employer]Chart ; Last Updated: 06/06/2016 9:30 EST ; Life Cycle Date: 06/06/2016 ; Life Cycle Status: Active ; Vocabulary: SNOMED CT Migraine (SNOMED CT :01963560 ) Name of Problem: Migraine ; Recorder: ERICKA ISSA RN; Confirmation: Confirmed ; Classification: Medical ; Code: [id number] ; Contributor System: PowerChart ; Last Updated: 07/26/2015 22:28 EDT ; Life Cycle Date: 07/26/2015 ; Life Cycle Status: Active ; Vocabulary: SNOMED CT S/P hysterectomy (SNOMED CT :064120162 ) Name of Problem: S/P hysterectomy ; Recorder: LEONID CASTANEDA RN; Confirmation: Confirmed ; Classification: Medical ; Code: [id number] ; Contributor System: PowerChart ; Last Updated: 11/06/2019 20:08 EDT ; Life Cycle Date: 11/06/2019 ; Life Cycle Status: Active ; Vocabulary: SNOMED CT Shoulder pain, left (SNOMED CT :55940796 ) Name of Problem: Shoulder pain, left ; Recorder: Breanna Ivey RN; Confirmation: Confirmed ; Classification: Medical ; Code: [id number] ; Contributor System: [email or web address] ; Last Updated: 05/24/2018 10:53 EST ; Life Cycle Date: 05/24/2018 ; Life Cycle Status: Active ; Vocabulary: SNOMED CT Diagnoses(Active) Abdominal pain Date: 08/01/2020 ; Diagnosis Type: Reason For Visit ; Confirmation: Complaint of ; Clinical Dx: Abdominal pain ; Classification: Medical ; Clinical Service: Emergency medicine ; Code: PNED ; Probability: 0 ; Diagnosis Code: [id number] ED Height and Weight Height Source : Measured Height Entry Format : [place] Height, Feet : 5 ft(Converted to: 152 cm, 60 Inch) Height, Inches : 5 Inch(Converted to: 0 ft 5 Inch, 12.70 cm) Clinical Height : 165.1 cm Weight Source, ED : Standing scale Weight Entry Format : [place] Weight, Pounds : 169 lb Clinical Dosing Weight : 76.82 kg Body Surface Area (BSA) : 1.84 m2 Body Mass Index : 28.2 kg/m2 (HI) Disney Body Weight (IBW) : 56.59 kg OBEY MONROE RN - 08/01/2020 19:04 EDT Pain Assessment Pain Assessment : Initial assessment Pain Scale Used : 0-10 Scale OBEY MONROE RN - 08/01/2020 19:04 EDT Pain Scale Intensity : 7 OBEY MONROE RN - 08/01/2020 19:04 EDT Image 4 - Images currently included in the form version of this document have not been included in the text rendition version of the form. documented in this encounter Plan of Treatment Not on file documented as of this encounter Visit Diagnoses Not on filedocumented in this encounter Care Teams Director Radiation Oncology Relationship Specialty Start Date End Date Alan Beyer MD [address] [place] [address] PCP - General Family Medicine 06/08/23 documented as of this encounter
--- OUTSIDE RECORDS SUMMARY | 2024-11-05 10:18 | XMS_ITS | Encounter Summary ---
Author Organization [employer] Address [address] [place] [address] Care Team Providers Care Hardboard Press Operator Name Role Phone Alan Beyer MD Primary Care Provider [phone] Encounter Details Date Type Department Care Team (Late st Contact Info) Description 07/04/2018 Transcribed Document [facility] Family Medicine [facility] [place] [address] ProviderJessenia MD [address] [place] [id number] Social History Tobacco Use Types Packs/Day Years Used Date Smoking Tobacco: Never Assessed Comments Unknown Sex and Gender Information Value Date Recorded Sex Assigned at Not on file Legal Sex Female 4:28 PM CDT Gender Identity Not on file Sexual Orientation Not on file documented as of this encounter Miscellaneous Notes * Cerner Conversion Note - Jessenia Alvarez MD - 07/04/2018 4:15 PM COMMODITIES TRADER [address] [place] [address] Patient Information Name: CHARLINE BOND Age: 37 Years Date of : 1980 Arrival Time: 07/04/2018 11:09:00 Diagnosis Abdominal pain; Vascular calcification Primary Care Physician: JORGE LUIS CAMPBELL NP-CLAUDIO Provider Information Primary Provider: GALILEA HANNAH PA Secondary Provider: RIANACHARLINE has been given the following list of patient education materials, prescriptions and follow-up instructions: Follow-up Instructions: With: Address: When: YOU NEED TO STOP SMOKIING YOU HAVE VASCULAR CALCIFICATION IN YOUR AORTA BEYOND WHAT IS NORMAL FOR YOUR STATED AGE. GET YOUR CHOLESTEROL CHECKED EDILBERTO PUCKETT APPT WITH DR BRANCH TOMORROW Within 2 to 3 days With: Address: When: DORIS BRANCH [address], [address] [place], [place] [id number] Business (1) Within 2 to 3 days With: Address: When: Patient Resource Center Within As needed Comments: Patient has a primary care physician with Jorge [facility] Campbell. For assistance in the future with finding a new primary care physician please contact the Patient Resource Center at [phone]. With: Address: When: [address] [place] [address] Business (1) Within 2 to 3 days Patient Education Materials: Pain Without a Known Cause Introduction Pain can occur in any part of the body and can range from mild to severe. Sometimes no cause can be found for why you are having pain. Some types of pain that can occur without a known cause include: ??? Headache. ??? Back pain. ??? Abdominal pain. ??? Neck pain. How is this diagnosed? Your health care provider will try to find the cause of your pain. This may include: ??? Physical exam. ??? Medical history. ??? Blood tests. ??? Urine tests. ??? X-rays. If no cause is found, your health care provider may diagnose you with pain without a known cause. How is this treated? Treatment depends on the kind of pain you have. Your health care provider may prescribe medicines to help relieve your pain. Follow these instructions at home: ??? Take medicines only as directed by your health care provider. ??? Stop any activities that cause pain. During periods of severe pain, bed rest may help. ??? Try to reduce your stress with activities such as yoga or meditation. Talk to your health care provider for other stress-reducing activity recommendations. ??? Exercise regularly, if approved by your health care provider. ??? Eat a healthy diet that includes fruits and vegetables. This may improve pain. Talk to your health care provider if you have any questions about your diet. Contact a health care provider if: If you have a painful condition and no reason can be found for the pain or the pain gets worse, it is important to follow up with your health care provider. It may be necessary to repeat tests and look further for a possible cause. This information is not intended to replace advice given to you by your health care provider. Make sure you discuss any questions you have with your health care provider. Document Released: 01/23/2002 Document Revised: 10/05/2016 Document Reviewed: 09/15/2014 ? 2017 Elsevier Abdominal Pain, Adult Many things can cause belly (abdominal) pain. Most times, belly pain is not dangerous. Many cases of belly pain can be watched and treated at home. Sometimes belly pain is serious, though. Your doctor will try to find the cause of your belly pain. Follow these instructions at home: ??? Take ymvu-[id number] and prescription medicines only as told by your doctor. Do not take medicines that help you poop (laxatives) unless told to by your doctor. ??? Drink enough fluid to keep your pee (urine) clear or pale yellow. ??? Watch your belly pain for any changes. ??? Keep all follow-up visits as told by your doctor. This is important. Contact a doctor if: ??? Your belly pain changes or gets worse. ??? You are not hungry, or you lose weight without trying. ??? You are having trouble pooping (constipated) or have watery poop (diarrhea) for more than 2?3 days. ??? You have pain when you pee or poop. ??? Your belly pain wakes you up at night. ??? Your pain gets worse with meals, after eating, or with certain foods. ??? You are throwing up and cannot keep anything down. ??? You have a fever. Get help right away if: ??? Your pain does not go away as soon as your doctor says it should. ??? You cannot stop throwing up. ??? Your pain is only in areas of your belly, such as the right side or the left lower part of the belly. ??? You have bloody or black poop, or poop that looks like tar. ??? You have very bad pain, cramping, or bloating in your belly. ??? You have signs of not having enough fluid or water in your body (dehydration), such as: ? Dark pee, very little pee, or no pee. ? Cracked lips. ? Dry mouth. ? Sunken eyes. ? Sleepiness. ? Weakness. This information is not intended to replace advice given to you by your health care provider. Make sure you discuss any questions you have with your health care provider. Document Released: 10/16/2008 Document Revised: 11/17/2016 Document Reviewed: 10/11/2016 [employer] Interactive Patient Education ? 2017 [employer]. Allergies: fentaNYL; acetaminophen-oxyCODONE; Toradol; Bactrim; escitalopram; lidocaine topical 2% gel; tetanus immune globulin; baclofen; morphine; penicillin; clindamycin; doxycycline; meperidine Medication Information: Prescription Display promethazine (promethazine 25 mg oral tablet) 1 Tab, Oral, Tab, Q4H, PRN as needed for nausea/vomiting, # 18 Tab, 0 Refill(s) traMADol (traMADol 50 mg oral tablet) 1 Tab, Oral, Tab, Q4H, PRN as needed for pain, X 1 Day(s), # 5 Tab, 0 Refill(s) Laboratory or Other Results This Visit (last charted value for your 07/04/2018 visit) Hematology 07/04/18 11:58:00 WBC: 8.6 K/uL -- Normal range between ( 3.9 and 10.0 ) RBC: 4.19 Million/uL -- Normal range between ( 3.93 and 5.22 ) Hct: 42.2 % -- Normal range between ( 34.1 and 44.9 ) Hgb: 14.3 Gram/dL -- Normal range between ( 11.2 and 15.7 ) Platelet Count: 231 K/uL -- Normal range between ( 163 and 369 ) MCH: 34.1 pg -- Normal range between ( 25.6 and 32.2 ) MCHC: 33.9 Gram/dL -- Normal range between ( 32.3 and 36.5 ) MCV: 100.7 fL -- Normal range between ( 79.0 and 94.8 ) Slide Review: No Eos %: 1.4 % -- Normal range between ( 1.0 and 7.0 ) Kidder #: 0.42 K/uL -- Normal range between ( 0.24 and 0.82 ) Eos #: 0.12 K/uL -- Normal range between ( 0.04 and 0.54 ) Kidder %: 4.9 % -- Normal range between ( 4.7 and 12.5 ) Baso %: 0.2 % -- Normal range between ( 0.0 and 1.0 ) Baso #: 0.02 K/uL -- Normal range between ( 0.01 and 0.08 ) RDW: 11.9 % -- Normal range between ( 11.6 and 14.4 ) Neut %: 61.8 % -- Normal range between ( 34.0 and 71.0 ) Neut #: 5.31 K/uL -- Normal range between ( 1.56 and 6.13 ) Lymph %: 31.5 % -- Normal range between ( 19.3 and 53.0 ) Lymph #: 2.71 K/uL -- Normal range between ( 1.18 and 3.74 ) MPV: 10.0 fL -- Normal range between ( 9.4 and 12.4 ) IG#: 0 x10(3)/uL IG%: 0 % -- Normal range between ( 0 and 1 ) Urinalysis 07/04/18 13:19:00 Urine Nitrite: Negative Urine Leukocyte Esterase: Negative [...] ) Urine Bilirubin Dipstick: Negative Urine Specific [place]: 1.002 -- Normal range between ( 1.005 and 1.030 ) General Chemistry 07/04/18 13:12:00 Lactic Acid Level: 1.4 mmol/L -- Normal range between ( 0.4 and 2.0 ) 07/04/18 11:58:00 Creatinine Level: 0.71 mg/dL -- Normal range between ( 0.55 and 1.02 ) Sodium Level: 139 mmol/L -- Normal range between ( 136 and 146 ) Potassium Level: 3.3 mmol/L -- Normal range between ( 3.5 and 5.1 ) Chloride Level: 108 mmol/L -- Normal range between ( 102 [...] between ( 5 and 37 ) Globulin: 4.1 Gram/dL -- Normal range between ( 1.5 and 4.5 ) Alk Phos: 122 Units/Liter -- Normal range between ( 27 and 136 ) Bilirubin Direct: <0.1 mg/dL -- Normal range between ( 0.0 and 0.2 ) Bun/Creatinine: 9.9 -- Normal range between ( 8.0 and 20.0 ) Calcium Level: 8.5 mg/dL -- Normal range between ( 8.5 and 10.1 ) eGFR : >60 mL/min/1.73m2 eGFR NonAfrican: >60 mL/min/1.73m2 Glucose Level: 91 mg/dL -- Normal range between ( 74 and 106 ) Blood Urea Nitrogen: 7 mg/dL -- Normal range between ( 7 and 22 ) Protein Total: 8.6 Gram/dL -- Normal range between ( 6.4 and 8.2 ) Albumin Level: 4.5 Gram/dL -- Normal range between ( 3.4 and 5.0 ) Coagulation 07/04/18 11:58:00 INR: 1.0 -- Normal range between ( 0.9 and 1.1 ) PTT: 27.5 Second(s) -- Normal range between ( 24.5 and 30.1 ) PT: 9.8 Second(s) -- Normal range between ( 9.6 and 11.5 ) Computed Tomography 07/04/18 13:51:32 CT Abdomen Pelvis W: CT Abdomen Pelvis W Medication Comment: Procedures: Laboratory Orders Name Status AutoDiff Completed BMP Completed CBCD Completed HFP Completed LAC Completed LACTREFL Completed PTPTT Completed UAMICIND Completed Radiology Orders Name Status CT Abdomen Pelvis W Completed Cardiology Orders No cardiology orders were placed. This statement is to verify that CHARLINE BOND was seen at [facility] Emergency Department on ,07/04/2018 16:15:21. This is not a work excuse, if a work excuse was needed it will be in addition to this statement as a separate form. IMPORTANT: The examination and treatment you have received [...] that requires the expertise of a specialist. KEEP IN MIND THAT THE SPECIALIST HAS HIS/HER OWN OFFICE POLICIES WHICH MAY REQUIRE PROPER INSURANCE OR PAYMENT UP FRONT BEFORE THE SPECIALIST WILL SEE YOU. It is your responsibility to call the specialist physician to make an appointment. We do not have the ability to identify specialists/physicians that work with specific insurance companies. [...] necessary to obtain coverage for claims submitted. If you had special tests, such as EKG???s or X-rays, the interpretation of your tests given to you by the Emergency Dept. Physician is a preliminary report. Some fractures and illnesses fail to show up on preliminary tests. We will review them again within 24-48 hours. We will call you if there are any new suggestions. If your symptoms continue notify your physician. After you leave, you should follow the instructions below. In all events, you may obtain a copy of your Emergency Department visit from Medical Records. Please call to be directed to this department. We will bill your insurance; however, you are responsible today for any co-pay amounts. You will receive a separate bill for any services you may have received including: emergency, radiology, or pathology physicians. Please be sure we have an accurate contact phone number and address, should we need to call you for any reason. CIGARETTE SMOKING: The facts are clear; cigarette smoking will shorten your life. Smoking can cause many illnesses along the way. As a healthcare provider, [facility] recommends that you stop smoking. Assistance with quitting is available by contacting 3-418-DVYA-NOW. This is a free resource providing counseling, support, and referral. Or you may contact your personal physician. As part of your treatment plan, [...] cramping, rapid heartbeat, difficulty sleeping, and nervousness. The home medications listed are only as accurate as the information you provided. Please continue taking all of your medications prescribed by your Primary Care Provider unless specifically told to change or discontinue the medication. Please direct any questions regarding your home medications to your Primary Care Provider. YOU ARE THE MOST IMPORTANT FACTOR IN YOUR RECOVERY. ?? Follow your instructions carefully ?? Take your medicines as prescribed ?? Most important, see a provider as discussed. If you do not have a provider, we can provide a list of clinics Confidential This message and accompanying documents are covered by Electronic Communications Privacy Act 18 U.S.C. ???Sections 0104-7715,?? and contain information intended for the specified individual(s) only. This information is confidential. If you are not the intended recipient or an agent responsible for delivering it to the intended recipient, you are hereby notified that you have received the document in error and that any review, dissemination, copying, or the taking of any action based on the contents of this information is strictly prohibited. If you have received this communication in error, please notify us immediately by email, and delete the original message. 4 WAYS TO GET AHEAD OF SEPSIS SEPSIS is a MEDICAL EMERGENCY. Time matters! Infections put you and your family at risk for a life-threatening condition called sepsis. Sepsis is the body???s extreme response to an infection. It is life-threatening, and without timely treatment, sepsis can rapidly lead to tissue damage, organ failure, and . Sepsis happens when an infection you already have???in your skin, lungs, urinary tract or somewhere else???triggers a chain reaction throughout your body. 1 [...] sepsis or if you have an infection that???s not getting better or is getting worse. To learn more about sepsis and how to prevent infections, visit www.cdc.gov/sepsis. STROKE is an EMERGENCY Every Minute Counts ACT F.A.S.T! FACE ?? Facial droop ?? Uneven smile ARM ?? Arm numbness ?? Arm weakness SPEECH ?? Slurred speech ?? Difficulty speaking or understanding TIME ?? Call 911 and get to the hospital immediately Have the ambulance go to the nearest stroke center. STROKE Risk Factors High blood pressure High cholesterol Heart Disease Diabetes Smoking Heavy alcohol use Physical inactivity and obesity Atrial Fibrillation (irregular heartbeat) Family history of stroke Acknowledgment I hereby acknowledge receipt of these instructions and information above. I understand that I have received Emergency Treatment only which is not a substitute for complete medical care and acknowledge that all of my medical problems may not be known, identified, or treated prior to my release. I UNDERSTAND THE NEED TO ARRANGE FOLLOW-UP CARE WITH THE PHYSICIAN INDICATED. I UNDERSTAND THAT I SHOULD CONTACT MY PHYSICIAN IMMEDIATELY OR RETURN TO THE EMERGENCY DEPARTMENT IF MY CONDITION WORSENS, FAILS TO IMPROVE, OR NEW SYMPTOMS APPEAR. Vital Signs B/P PULSE RESP. RATE TEMPERATURE PULSE OX Signature of Emergency Provider Date / Time Signature of Emergency Nurse Date / Time Reminder: Be sure to sign up for the [facility] patient portal, which gives you 04/12 access to your medical information ??? including these discharge instructions ??? using your computer, smartphone, or tablet. Just go to [employer] to get started. Questions? Call . Acknowledgment I hereby acknowledge receipt of these instructions and information above. I understand that I have received Emergency Treatment only which is not a substitute for complete medical care and acknowledge that all of my medical problems may not be known, identified, or treated prior to my release. I UNDERSTAND THE NEED TO ARRANGE FOLLOW-UP CARE WITH THE PHYSICIAN INDICATED. I UNDERSTAND THAT I SHOULD CONTACT MY PHYSICIAN IMMEDIATELY OR RETURN TO THE EMERGENCY DEPARTMENT IF MY CONDITION WORSENS, FAILS TO IMPROVE, OR NEW SYMPTOMS APPEAR. Signature of Patient / Responsible Person Date / Time Please provide a telephone number where you can be reached. The best time to call is between: It is permissible to leave a message if no answer: Yes____ No____ Nurse Providing Instructions: Emergency Physician: Electronically signed by Jannette, [facility] Conversion [employer] at 08/31/2022 5:18 PM CDT documented in this encounter Plan of Treatment Not on file documented as of this encounter Visit Diagnoses Not on filedocumented in this encounter Care Teams Hardboard Press Operator Relationship Specialty Start Date End Date Alan Beyer MD [address] [place], [place] [id number] PCP - General Family Medicine 06/08/23 documented as of this encounter
--- OUTSIDE RECORDS SUMMARY | 2024-11-05 10:18 | XMS_ITS | Encounter Summary ---
Author Organization [employer] Address [address] [place] [address] Care Team Providers Care Supply Technician Name Role Phone Alan Beyer MD Primary Care Provider [phone] Encounter Details Date Type Department Care Team (Late st Contact Info) Description 07/13/2021 Transcribed Document [facility] Preadmission Testing [address] [facility] [address] [place] [address] Jyoti Bird APRN [address] [facility] [address] [place], [place] [id number] Social History Tobacco Use Types Packs/Day Years Used Date Smoking Tobacco: Never Assessed Comments Unknown Sex and Gender Information Value Date Recorded Sex Assigned at Not on file Legal Sex Female 4:28 PM CDT Gender Identity Not on file Sexual Orientation Not on file documented as of this encounter Miscellaneous Notes * Cerner Conversion Note - Jyoti Bird APRN - 07/13/2021 4:58 PM EST SJE [facility] [address] [place] [address] Visit Date/Time: 07/13/2021 15:58:28 CHARLINE BOND The above patient was seen in the hospital today and needs to be excused from work/school until Return to Work/School Date: 07/16/2021 documented in this encounter Plan of Treatment Not on file documented as of this encounter Visit Diagnoses Not on filedocumented in this encounter Care Teams Supply Technician Relationship Specialty Start Date End Date Alan Beyer MD [address] [place] [address] PCP - General Family Medicine 06/08/23 documented as of this encounter
--- OUTSIDE RECORDS SUMMARY | 2024-11-05 10:18 | XMS_ITS | Encounter Summary ---
Author Organization [employer] Address [address] [place] [address] Care Team Providers Care Airway Traffic Controller Name Role Phone Alan Beyer MD Primary Care Provider [phone] Encounter Details Date Type Department Care Team (Late st Contact Info) Description 05/15/2020 Transcribed Document [facility] [place] [facility] [place] [address] ProviderJessenia MD [address] [place] [address] Social History Tobacco Use Types Packs/Day Years Used Date Smoking Tobacco: Never Assessed Comments Unknown Sex and Gender Information Value Date Recorded Sex Assigned at Not on file Legal Sex Female 4:28 PM CDT Gender Identity Not on file Sexual Orientation Not on file documented as of this encounter Miscellaneous Notes * Cerner Conversion Note - Jessenia Alvarez MD - 05/15/2020 3:58 PM FREEZER PERSON [place] [id number] CHARLINE BOND :1980 Visit Time:05/15/2020 Your Visit Summary Your Care Team Primary Provider: ANGELIQUE VARELA Secondary Provider: Your Diagnosis Chest pain COVID-19 virus infection Headache, Headache Throat pain - Adult Viral syndrome Medical Information You may obtain a copy [...] 3 days Comments Call for follow up appointment. Please follow-up with your primary care provider in 2 to 3 days. Return to ED if you experience new or worsening symptoms. If you do not have a primary care provider the patient resource ticket scheduler can assist you with establishing care and scheduling follow-up. The Patient Resource Vp Of Product can be contacted at . Follow Up with NO PRIM DR POWERS When Within 2 to 3 days Allergies [...] This Visit (last charted value for your 05/15/2020 visit) Hematology 05/15/2020 1:35 PM WBC: 3.0 K/uL -- Normal range between ( 3.9 and 10.0 ) RBC: 3.57 Million/uL -- Normal range between ( 3.93 and 5.22 ) Hct: 36.5 % -- Normal range between ( 34.1 and 44.9 ) Hgb: 12.2 Gram/dL -- Normal range between ( 11.2 and 15.7 ) Platelet Count: 152 K/uL -- Normal range between ( 163 and 369 ) MCH: 34.2 pg -- Normal range between ( 25.6 and 32.2 ) MCHC: 33.4 Gram/dL -- Normal range between ( 32.3 and 36.5 ) MCV: 102.2 fL -- Normal range between ( 79.0 and 94.8 ) Slide Review: No Eos %: 0.7 % -- Normal range between ( 1.0 and 7.0 ) [place] #: 0.40 K/uL -- Normal range between ( 0.24 and 0.82 ) Eos #: 0.02 K/uL -- Normal range between ( 0.04 and 0.54 ) [place] %: 13.6 % -- Normal range between ( 4.7 and 12.5 ) Baso %: 0.3 % -- Normal range between ( 0.0 and 1.0 ) Baso #: 0.01 K/uL -- Normal range between ( 0.01 and 0.08 ) RDW: 11.4 % -- Normal range between ( 11.6 and 14.4 ) Neut %: 55.9 % -- Normal range between ( 34.0 and 71.0 ) Neut #: 1.65 K/uL -- Normal range between ( 1.56 and 6.13 ) Lymph %: 29.2 % -- Normal range between ( 19.3 and 53.0 ) Lymph #: 0.86 K/uL -- Normal range between ( 1.18 and 3.74 ) MPV: 11.1 fL -- Normal range between ( 9.4 and 12.4 ) IG#: 0 x10(3)/uL IG%: 0 % -- Normal range between ( 0 and 1 ) General Chemistry 05/15/2020 1:35 PM Creatinine Level: 0.76 mg/dL -- Normal range between ( 0.55 and 1.02 ) Sodium Level: 141 mmol/L -- Normal range between ( 136 and 146 ) Potassium Level: 3.7 mmol/L -- Normal range between ( 3.5 and 5.1 ) Chloride Level: 110 mmol/L -- Normal range between ( 102 and 112 ) Carbon Dioxide Level: 26 mmol/L -- Normal range between ( 21 and 32 ) Anion Gap: 9 -- Normal range between ( 9 and 20 ) Bilirubin Total: 0.2 mg/dL -- Normal range between ( 0.2 and 1.3 ) A/G Ratio: 1.0 -- Normal range between ( 1.1 and 2.5 ) ALT: 15 Units/Liter -- Normal range between ( 12 and 78 ) AST: 8 Units/Liter -- Normal range between ( 5 and 37 ) Globulin: 3.5 Gram/dL -- Normal range between ( 1.5 and 4.5 ) Alk Phos: 74 Units/Liter -- Normal range between ( 27 and 136 ) Bun/Creatinine: 15.8 -- Normal range between ( 8.0 and 20.0 ) Calcium Level: 8.5 mg/dL -- Normal range between ( 8.5 and 10.1 ) eGFR : >60 mL/min/1.73m2 eGFR NonAfrican: >60 mL/min/1.73m2 Glucose Level: 89 mg/dL -- Normal range between ( 74 and 106 ) Blood Urea Nitrogen: 12 mg/dL -- Normal range between ( 7 and 22 ) Protein Total: 7.1 Gram/dL -- Normal range between ( 6.4 and 8.2 ) Albumin Level: 3.6 Gram/dL -- Normal range between ( 3.4 and 5.0 ) Education Materials Viral Illness, Adult Viruses are [...] Medicines to relieve symptoms. These can include lpio-zhl-mhsspnq medicine for pain and fever, medicines for [...] these instructions at home: Medicines ??? Take iglv-lci-rynsxfa and prescription medicines only as told by [...] and water are not available, use hand hoisting laborer. ??? Avoid close contact with friends and [...] 09/08/2016 Document Revised: 04/12/2018 Document Reviewed: 09/08/2016 [employer] Patient Education ?? 2020 [employer] COVID-19: How to Protect Yourself and Others Know how it spreads ??? There is currently no vaccine to prevent coronavirus disease 2019 (COVID-19). ??? The best way to prevent illness is to avoid being exposed to this virus. ??? The virus is thought to spread mainly from cokeos-ao-asigqx. ? Between people who are in close [...] are not readily available, use a hand hoisting laborer that contains at least 60% alcohol. Cover [...] are at higher risk of getting very sick.https://www.cdc.gov/coronavirus/2019-ncov/zfvk-hzijs-imkjlsluidk/people-a i-yirmtv-mjhp.html Cover your mouth and nose with a cloth face cover when around others ??? You could spread COVID-19 to others even if you do not feel sick. ??? Everyone should wear a cloth face cover when they have to go out in public, for example to the grocery store or to bean picker machine operator other necessities. ? Cloth face coverings should [...] available, clean your hands with a hand hoisting laborer that contains at least 60% alcohol. Clean and disinfect ??? Clean AND disinfect frequently touched surfaces daily. This includes tables, doorknobs, light switches, countertops, handles, desks, phones, keyboards, toilets, faucets, and sinks. https://www.cdc.gov/coronavirus/2019-ncov/xarkuty-ilfxvfy-film/disinfecting-yo ur-home.html ??? If surfaces are dirty, clean them: Use detergent or soap and water prior to disinfection. cdc.gov/coronavirus 08/23/2019 This information is not intended to replace advice given to you by your health care provider. Make sure you discuss any questions you have with your health care provider. Document Released: 08/26/2019 Document Revised: 08/29/2019 Document Reviewed: 08/26/2019 [employer] Patient Education ?? 2020 [employer]. COVID-19 Frequently Asked Questions COVID-19 (coronavirus disease) is an infection that is caused by a large family of viruses. Some viruses cause illness in people and others cause illness in animals like camels, cats, and bats. In some cases, the viruses that cause illness in animals can spread to humans. Where did the coronavirus come from? In April 2019, [place] told the World Health Organization (WHO) of several cases of lung disease (human respiratory illness). These cases were linked to an open seafood and livestock market in the city of [facility]. The link to the seafood and [...] and virus naming World Health Organization (WHO): www.who.int/emergencies/diseases/vdbkp-idojlgvmkmx-5327/technical-guidance/nam gdb-sxo-xispdijyzwe-disease-(covid-2019)-oqt-deq-yccpc-vgpm-vdmkmq-vt Who is at risk for complications from [...] relieve his or her symptoms by using odye-uau-szemxlw medicines that treat sneezing, coughing, and runny [...] water are not available, use alcohol-based hand hoisting laborer. ??? Avoid touching your face, mouth, nose, [...] (CDC): www.cdc.gov/coronavirus/2019-ncov/travelers/index.html ??? World Health Organization (WHO): www.who.int/emergencies/diseases/xkbwp-itokxxdlcfp-9663/travel-advice Know the risks and take action to [...] water are not available, use alcohol-based hand hoisting laborer. ??? Cough or sneeze into a tissue, [...] in hot, soapy water or use a plastics technician. Air-dry your dishes. ??? Wash laundry in [...] Organization (WHO) ??? Information and news updates: www.who.int/emergencies/diseases/nrhoz-prfcjulhyvi-6893 ??? Coronavirus health topic: www.who.int/health-topics/coronavirus ??? Questions and answers on COVID-19: www.who.int/news-room/q-a-detail/l-j-mdcfsiayvhzvg ??? Global tracker: [employer]mal[employer] Diabetes [place] Academy of Pediatrics (AAP) ??? Information for families: www.healthychildren.org/Green[place]ic/health-issues/conditions/chest-lungs/Pages/201 2-Idowy-Ewnjjrsxeds.aspx The coronavirus situation is changing rapidly. Check [...] 08/26/2019 Document Revised: 08/26/2019 Document Reviewed: 08/26/2019 [employer] Patient Education ?? 2020 [employer]. COVID-19 COVID-19, also known as coronavirus [...] symptoms. This may include rest, fluids, and fmgt-xyp-eurqomc medicines. Follow these instructions at home: Lifestyle [...] safe for you. General instructions ??? Take lesj-npj-aqdimsu and prescription medicines only as told by [...] often. To identify high-risk areas, check the [facility] [place]NOTE 2[place] travel website: wwwnc.cdc.gov/travel/notices ??? If you live [...] are not available, use an alcohol-based hand hoisting laborer. ? Avoid touching your mouth, face, eyes, [...] water are not available, use alcohol-based hand hoisting laborer. ??? Stay away from other members of [...] 06/05/2019 Document Revised: 08/26/2019 Document Reviewed: 06/05/2019 [employer] Patient Education ?? 2020 [employer]. Emergency Awareness and Preventative Care STROKE [...] Assistance with quitting is available by contacting 3-941-WIZJ-NOW. This is a free resource providing counseling, [...] was given the opportunity to ask questions. Patient/Web Operations Manager Name: Patient/Web Operations Manager Signature: Relationship to Patient: Clinician/Hospital Web Operations Manager Signature: Please Provide a Telephone Number Where You Can Be Reached: Is it Permissible To Leave a Message? Date: documented in this encounter Plan of Treatment Not on file documented as of this encounter Visit Diagnoses Not on filedocumented in this encounter Care Teams Airway Traffic Controller Relationship Specialty Start Date End Date Alan Beyer MD [address] [place] [address] PCP - General Family Medicine 06/08/23 documented as of this encounter
--- OUTSIDE RECORDS SUMMARY | 2024-11-05 10:18 | XMS_ITS | Encounter Summary ---
Author Organization [employer] Address [address] [place] [address] Care Team Providers Care Work From Home Name Role Phone Alan Beyer MD Primary Care Provider [phone] Encounter Details Date Type Department Care Team (Late st Contact Info) Description 07/13/[address] [facility] [place] [address] ProviderJessenia MD [address] [place], [place] [address] Social History Tobacco Use Types Packs/Day Years Used Date Smoking Tobacco: Never Assessed Comments Unknown Sex and Gender Information Value Date Recorded Sex Assigned at Not on file Legal Sex Female 4:28 PM CDT Gender Identity Not on file Sexual Orientation Not on file documented as of this encounter Miscellaneous Notes * Cerner Conversion Note - Jessenia Alvarez MD - 07/13/2021 11:00 AM NURSING UNIT COORDINATOR Patient: CHARLINE BOND Age: 40 Years Sex: Female : 1980 Chief Complaint Pt co generalized chest pain that is shooting across chest that began x 2 hours ago while laying down in bed. pt is calm alert skinpwd. Pt given 324mg aspirin, 4 mg zofran, and x 1 SL Nitro with some relief. By EMS Primary Care Provider MICHAEL HOSKINS MD-[facility] History of Present Illness Ms. Bond is a 40-year-old woman who presents to the ED with right-sided chest pain that is been on and off for the last 8 hours or so. She rates her pain is a 9 out of 10, it starts in the right side of the chest, it is sharp and severe, and radiates to the back and upper neck. She has a past medical history of anxiety, kidney stones, fibromyalgia, migraines, and a family history of significant heart disease with early VT in a parent and a sibling. She had a stress test about a year and a half ago which was normal. Her troponin here is normal and EKG is without ischemic changes. A CTA was performed which was negative for PE or other acute cardiopulmonary disease. Hospitalist is asked to admit for observation. Review of Systems Chest pain as above. She has had this pain before but it has not been nearly as this intense. Previously she rated it around a 2 out of 10. Its not better or worse with anything she does or does not do. Dilaudid helps. A comprehensive review of systems otherwise negative except as per HPI. Vital Signs T: 36.7 ??C HR: 86(Monitored) RR: 24 BP: 140/72 SpO2: 100% HT: 165.1 cm WT: 76.36 kg BMI: 28 Oxygen Settings (Last) Oxygen Therapy Mode: Room air (07/13/21 06:30:00) Physical Exam General: Well nourished, well developed adult woman in NAD HEENT: Normocephalic, atraumatic. PERRLA, EOMs intact, anicteric. Nares patent. OMM, tongue and uvula midline, speech clear. Neck: No lymphadenopathy or tenderness. Normal ROM. No carotid bruits. CV: RRR, Normal S1/S2 without murmur or gallop. No peripheral edema. Pedal pulses 2+. Pulm: CTAB without cough, wheeze, or rhonchi. Respirations regular and unlabored. Room air. GI: Nontender, nondistended, bowel sounds normoactive. No organomegaly. : Not examined Skin: Warm, dry, intact. No rashes. MS: Normal AROM x4, ROSADO. Independently ambulatory at baseline. Neuro: CN2-12 grossly intact without focal deficits. Normal sensation. Psych: A&Ox4, affect anxious. Pleasant and conversant. Assessment/Plan Chest Pain - ACS ruled out with normal troponin x3 and normal EKG - CTA ruled out PE or acute cardiopulmonary diseas - Strong family history of early CAD but normal stress test circa 2019 - Cont PRN dilaudid for now - Cardiology consulted, appreciate recs Hypokalemia - Repleted in ED, labs in AM Code Status: FUll Code Emergency Contact; Mother, Jean-Pierre Delgado DVT Prophylaxis: SCDs Dispo: Obs until cleared by cardiology. Chest pain Hypokalemia Multiple drug allergies Thoracic disc herniation Orders: acetaminophen, 650 mg, Oral, Tab, Q4H, PRN for Pain (Mild 1-3), Routine, Start 07/13/21 11:03:00 EST, 07/13/21 11:03:00 EST albuterol-ipratropium, 3 mL, Nebulized Inhalation, Inh, RT_Q6H, PRN for Shortness of Breath, Routine, Start 07/13/21 11:03:00 EST docusate, 100 mg, Oral, Cap, BID, Routine, Start 07/13/21 11:03:00 EST, 07/13/21 11:03:00 EST famotidine, 20 mg, Oral, Tab, Q12H, Routine, Start 07/13/21 11:03:00 EST, 07/13/21 11:03:00 EST HYDROmorphone, 0.5 mg, IV Push, Inj, Q4H While Awake, Routine, Start 07/13/21 14:27:00 EST, 07/13/21 14:27:00 EST nicotine, 1 Patch, TransDermal, Patch, Daily, PRN for Withdrawal Symptoms, Routine, Start 07/13/21 11:03:00 EST ondansetron, 4 mg, IV Push, Inj, Q4H, PRN for Nausea, Routine, Start 07/13/21 11:03:00 EST, 07/13/21 11:03:00 EST polyethylene glycol 3350, 17 Gram, Oral, Powder, Daily, PRN for Constipation, Routine, Start 07/13/21 11:03:00 EST promethazine, 6.25 mg, IntraVENous, Inj, Q6H, PRN for Nausea, Routine, Start 07/13/21 11:03:00 EST, 07/13/21 11:03:00 EST BMP Basic Metabolic Panel CBC w/ Auto Diff Consult to Physician Diabetes Education (Nursing) Diet, Adult DVT VTE Prophylaxis Education Facility Protocol Hemoglobin A1C Lipid Panel Magnesium Level Notify Provider Intake and Output Notify Provider of Change in Patient Condition Notify Provider of Change in Patient Condition Notify Provider Vital Signs Oxygen Therapy Pulse Oximetry Spot Check (Nursing) Resuscitation Status Sequential Compression Device Smoking Cessation Education (Nursing) T4 Free TSH Thyroid Stimulating Hormone Up Ad Zeinab Vital Signs Vitamin D 25 Hydroxy VTE Prophylaxis - Medical Sequential Compression Device Start: 07/13/21 10:33:00 EST, Bilateral, Length: Knee High, While patient is in bed, Continuous Order (YOVANA WILKERSON) Problem List/Past Medical History Ongoing Anxiety Endometriosis, vagina Kidney stones Migraine S/P hysterectomy Shoulder pain, left Historical No qualifying data Procedure/Surgical History RESECTION OF GALLBLADDER, PERCUTANEOUS ENDOSCOPIC APPROACH (06/14/2016), Adenoids, Clavicle, Gallbladder absent, Hysterectomy, Right knee, shoulder surgery, Tubal ligation, Tympanostomy. Home Medications (7) Active Karine , Oral, Daily ibuprofen 400 mg, PRN, Oral, Q8H predniSONE 10 mg oral tablet See Instructions Premarin , Vaginal, Weekly Robaxin-750 oral tablet 750 mg = 1 Tab, Oral, Daily Singulair 10 mg oral tablet 10 mg = 1 Tab, Oral, QPM Valtrex 500 mg, Oral, Daily Allergies Bactrim acetaminophen-oxyCODONE clindamycin Toradol baclofen doxycycline escitalopram fentaNYL lidocaine topical 2% gel meperidine morphine penicillin (Hives) tetanus immune globulin Social History Alcohol Alcohol Use History No. Alcohol Use Frequency Rarely. Alcohol Use History No. Nutrition/Health Regular Substance Abuse Drug Use Hx: No. Use in Last 12 Months: No. Drug Use Hx: No. Use in Last 12 Months: No. Tobacco 10 or more cigarettes (1/2 pack or more)/day in last 30 days Smoking Status. Smokeless tobacco user within last 30 days Smokeless Tobacco Status. vap Smokeless Tobacco Use History. Years of Use: 17. 4 or less cigarettes(less than 1/4 pack)/day in last 30 days Smoking Status. Never Smokeless Tobacco Status. Family History Coronary heart disease: Father and Sister. Heart attack: Father and Sister. Diagnostic Results REPORT CT ANGIOGRAPHY OF THE CHEST: PE PROTOCOL HISTORY: Generalized chest pain, smoker TECHNIQUE: Thin-section axial images through the chest were performed following the administration of intravenous contrast. Coronal oblique 3D MIP images were performed and reviewed. This study was performed with techniques to keep radiation doses as low as reasonably achievable, (ALARA). Individualized dose reduction techniques using automated exposure control or adjustment of mA and/or kV according to the patient size were employed. COMPARISON: None FINDINGS: The thyroid gland and thoracic inlet are unremarkable. An azygos fissure is noted. There is no aneurysm or dissection. There is mild ectasia of the ascending aorta measuring 3.1 cm. Mild scattered vascular calcifications are noted within the aorta. The pulmonary arteries are well enhanced. There is no pulmonary embolism identified. The heart is normal in size. There are no pleural or pericardial effusions. There is no adenopathy. There is no pulmonary nodule or mass. There is no edema or infiltrate. There is mild bronchial thickening. The gallbladder surgically absent. There is no biliary ductal dilation. There is mild fatty infiltration of the liver. There is a small hiatal hernia. There is mild disc space narrowing of the thoracic spine. There are small central calcified disc protrusions at T8 and T9. IMPRESSION: 1. There is mild ectasia of the ascending aorta measuring 3.1 cm in its midportion. There is no aneurysm or dissection. There is minimal scattered aortic vascular calcification. 2. There is no pulmonary embolism. 3. There is no evidence of edema or pneumonia. There are no effusions. There is some minimal bronchial thickening. 4. There is no adenopathy. There are no effusions. 5. There is a small hiatal hernia. Images reviewed, interpreted, and dictated by Gino Cota MD [1] Lab Results Test Name Test Result Date/Time Sodium Level 141 mmol/L 07/13/2021 01:58 EST Potassium Level 3.1 mmol/L (Low) 07/13/2021 01:58 EST Chloride Level 111 mmol/L 07/13/2021 01:58 EST Carbon Dioxide Level 27 mmol/L 07/13/2021 01:58 EST Anion Gap 6 (Low) 07/13/2021 01:58 EST Glucose Level 118 mg/dL (High) 07/13/2021 01:58 EST Blood Urea Nitrogen 14 mg/dL 07/13/2021 01:58 EST Creatinine Level 0.81 mg/dL 07/13/2021 01:58 EST eGFR >60 mL/min/1.73m2 07/13/2021 01:58 EST eGFR NonAfrican >60 mL/min/1.73m2 07/13/2021 01:58 EST Bun/Creatinine 17.3 07/13/2021 01:58 EST Calcium Level 8.4 mg/dL (Low) 07/13/2021 01:58 EST Protein Total 7.0 Gram/dL 07/13/2021 01:58 EST Albumin Level 3.4 Gram/dL 07/13/2021 01:58 EST Globulin 3.6 Gram/dL 07/13/2021 01:58 EST A/G Ratio 0.9 (Low) 07/13/2021 01:58 EST Bilirubin Total 0.2 mg/dL 07/13/2021 01:58 EST Alk Phos 76 Units/Liter 07/13/2021 01:58 EST AST 14 Units/Liter 07/13/2021 01:58 EST ALT 25 Units/Liter 07/13/2021 01:58 EST Magnesium Level 1.8 mg/dL 07/13/2021 02:00 EST Troponin I High Sensitivity 58.4 pg/mL 07/13/2021 06:15 EST Troponin I High Sensitivity 33.5 pg/mL 07/13/2021 04:05 EST Troponin I High Sensitivity 12.6 pg/mL 07/13/2021 01:58 EST WBC 7.3 K/uL 07/13/2021 01:58 EST RBC 3.44 Million/uL (Low) 07/13/2021 01:58 EST Hgb 12.1 Gram/dL 07/13/2021 01:58 EST Hct 36.4 % 07/13/2021 01:58 EST MCV 105.8 fL (High) 07/13/2021 01:58 EST MCH 35.2 pg (High) 07/13/2021 01:58 EST MCHC 33.2 Gram/dL 07/13/2021 01:58 EST Platelet Count 196 K/uL 07/13/2021 01:58 EST MPV 10.1 fL 07/13/2021 01:58 EST RDW 12.4 % 07/13/2021 01:58 EST Neut % 45.0 % 07/13/2021 01:58 EST Neut # 3.29 K/uL 07/13/2021 01:58 EST Lymph % 46.2 % 07/13/2021 01:58 EST Lymph # 3.38 K/uL 07/13/2021 01:58 EST Towner % 5.6 % 07/13/2021 01:58 EST Towner # 0.41 K/uL 07/13/2021 01:58 EST Eos % 2.6 % 07/13/2021 01:58 EST Eos # 0.19 K/uL 07/13/2021 01:58 EST Baso % 0.3 % 07/13/2021 01:58 EST Baso # 0.02 K/uL 07/13/2021 01:58 EST Slide Review No 07/13/2021 01:58 EST IG# 0 x10(3)/uL 07/13/2021 01:58 EST IG% 0 % 07/13/2021 01:58 EST Urine Type. U CleanCatch 07/13/2021 02:00 EST Urine Color YELLOW2 07/13/2021 02:00 EST Urine Appearance CLEAR2 07/13/2021 02:00 EST Urine Specific [place] *1.002 07/13/2021 02:00 EST Urine pH Dipstick 6.0 07/13/2021 02:00 EST Urine Leukocyte Esterase NEGATIVE2 07/13/2021 02:00 EST Urine Nitrite NEGATIVE2 07/13/2021 02:00 EST Urine Protein Dipstick NEGATIVE2 07/13/2021 02:00 EST Urine Glucose Dipstick NEGATIVE2 07/13/2021 02:00 EST Urine Ketones Dipstick NEGATIVE2 07/13/2021 02:00 EST Urine Urobilinogen Dipstick 0.2 07/13/2021 02:00 EST Urine Bilirubin Dipstick NEGATIVE2 07/13/2021 02:00 EST Urine Blood Dipstick NEGATIVE2 07/13/2021 02:00 EST Urine Culture if Indicated Not Indicated 07/13/2021 02:00 EST HCG Urine Qualitative Negative 07/13/2021 02:00 EST SARS-CoV-2 (COVID19 PCR) NEGATIVE2 07/13/2021 08:03 EST Additional Documentation Code Status Start: 07/13/21 10:33:00 EST, Full Code, Continuous Order [1] CTA Chest; LIGHT, AMY 07/13/2021 06:03 EST Electronically signed by Jannette, [facility] Conversion Venetian Blind Tape Cutter Cerner at 08/31/2022 5:25 PM CDT documented in this encounter Plan of Treatment Not on file documented as of this encounter Visit Diagnoses Not on filedocumented in this encounter Care Teams Work From Home Relationship Specialty Start Date End Date Alan Beyer MD [address] [place] [address] PCP - General Family Medicine 06/08/23 documented as of this encounter
--- OUTSIDE RECORDS SUMMARY | 2024-11-05 10:18 | XMS_ITS | Encounter Summary ---
Author Organization [employer] Address [address] [place] [address] Care Team Providers Care Bag Adjuster Name Role Phone Alan Beyer MD Primary Care Provider [phone] Encounter Details Date Type Department Care Team (Late st Contact Info) Description 07/13/2021 Transcribed Document [facility] [address] [place] [address] Samanta Hernandez MD [address] [place] [address] [address] [place], [place] [id number] Social History Tobacco Use Types Packs/Day Years Used Date Smoking Tobacco: Never Assessed Comments Unknown Sex and Gender Information Value Date Recorded Sex Assigned at Not on file Legal Sex Female 4:28 PM CDT Gender Identity Not on file Sexual Orientation Not on file documented as of this encounter Miscellaneous Notes * Cerner Conversion Note - Samanta Hernandez MD - 07/13/2021 4:58 PM EST Patient: CHARLINE BOND Age: 40 Years Sex: Female : 1980 Admit Date 07/13/2021 08:04 Discharge Date 07/13/2021 Primary Care Provider MICHAEL HOSKINS MD-[facility] Discharge Diagnosis Hypertension 07/13/2021 I10 ICD-10-CM Thoracic disc herniation 07/13/2021 M51.24 ICD-10-CM Hypokalemia 07/13/2021 E87.6 ICD-10-CM Multiple drug allergies 07/13/2021 Z88.9 ICD-10-CM Studies REPORT PORTABLE CHEST 07/13/2021 1:58 AM HISTORY: Precordial chest pain . COMPARISON: March 30, 2021. FINDINGS: The heart is proper size. The mediastinum is unremarkable. The lungs are clear. There is no pneumothorax. The osseous structures are unremarkable. IMPRESSION: No acute cardiopulmonary process. [1] REPORT CT ANGIOGRAPHY OF THE CHEST: PE [...] 5. There is a small hiatal hernia. [2] Reason for Hospitalization Ms. Bond is a 40-year-old woman who [...] history of significant heart disease with early RI in a parent and a sibling. She had a stress test about a year and a half ago which was normal. Her troponin here is normal and EKG is without ischemic changes. A CTA was performed which was negative for PE or other acute cardiopulmonary disease. Hospitalist is asked to admit for observation. [3] Hospital Course Potassium repleted orally in ED. Troponins were trended, normal and high-normal values observed. Pain improved with IV dilaudid as needed. Cardiology was consulted and did not feel presentationw as c/w ACS; however, given her history recommend continued outpatient monitoring with stress testing and diagnostic imaging. Home dose of lisinopril changed to 80 mg valsartan per cardiology recommendations. Medically stable to d/c home today with family. Vital Signs T: 36.7 ??C HR: 84(Monitored) RR: 31 BP: 147/93 SpO2: 93% HT: 165.1 cm WT: 76.36 kg BMI: 28 Oxygen Settings (Last) Oxygen Therapy Mode: Room air (07/13/21 15:18:00) Physical Exam General: Well nourished, well developed [...] Psych: A&Ox4, affect anxious. Pleasant and conversant. Discharge Disposition Home Discharge Follow Up HEIDI VILLA MD-CAR - Within 1 to 2 weeks MICHAEL HOSKINS MD-FAM - Within 2 to 3 days Discharge Medications (7) Active Claritin 24 Hour Allergy 10 mg oral tablet 10 mg = 1 Tab, Oral, Daily clonazePAM 0.5 mg oral tablet 0.5 mg = 1 Tab, Oral, BID Diovan 80 mg oral tablet 80 mg = 1 Tab, Oral, Daily omeprazole 40 mg, Oral, Daily predniSONE 10 mg oral tablet See Instructions Robaxin-750 oral tablet 750 mg = 1 Tab, Oral, Daily Valtrex 500 mg, Oral, Daily Code Status Start: 07/13/21 10:33:00 EST, Full Code, Continuous Order Condition on Discharge Medically stable Consulting Physicians No Consulting Physician on Record. Current Diet Order Diet, Adult - Ordered -- Start: 07/13/21 10:33:00 EST, Cardiac Diet, Low Fat Diet, Low Sodium (2 g Na), Isolation: Standard Precautions Patient Discharge Summary Orders Discharge Activity: Discharge Activity: Activity as tolerated Diet: Discharge Diet: Resume usual diet as tolerated Driving Restriction: No driving until 24 hours after taking pain medication Return to Work or School: May return to work or school on 07/16/2021 Pending Labs Scheduled BMP Basic Metabolic Panel Specimen Type: Blood, AM Draw collect, 07/14/21 4:00:00 EST, 1-Time, Stop: 07/14/21 4:00:00 EST, Lab Collect CBC w/ Auto Diff Specimen Type: Blood, AM Draw collect, 07/14/21 4:00:00 EST, 1-Time, Stop: 07/14/21 4:00:00 EST, Lab Collect Magnesium Level Specimen Type: Blood, AM Draw collect, 07/14/21 4:00:00 EST, 1-Time, Stop: 07/14/21 4:00:00 EST, Lab Collect Lipid Panel Specimen Type: Blood, AM Draw collect, 07/14/21 4:00:00 EST, 1-Time, Stop: 07/14/21 4:00:00 EST, Lab Collect TSH Thyroid Stimulating Hormone Specimen Type: Blood, AM Draw collect, 07/14/21 4:00:00 EST, 1-Time, Stop: 07/14/21 4:00:00 EST, Lab Collect T4 Free Specimen Type: Blood, AM Draw collect, 07/14/21 4:00:00 EST, 1-Time, Stop: 07/14/21 4:00:00 EST, Lab Collect Vitamin D 25 Hydroxy Specimen Type: Blood, AM Draw collect, 07/14/21 4:00:00 EST, 1-Time, Stop: 07/14/21 4:00:00 EST, Lab Collect Hemoglobin A1C Specimen Type: Blood, AM Draw collect, 07/14/21 4:00:00 EST, 1-Time, Stop: 07/14/21 4:00:00 EST, Lab Collect Time Spent on Discharge 30 minutes [1] CR Chest 1 Vw Port; Georges Cool, Tractor Expert 07/13/2021 02:06 EST [2] CTA Chest; AMY YING 07/13/2021 06:03 EST [3] Admission H & P; YOVANA WILKERSON NP-CLAUDIO 07/13/2021 11:00 EST documented in this encounter Plan of Treatment Not on file documented as of this encounter Visit Diagnoses Not on filedocumented in this encounter Care Teams Bag Adjuster Relationship Specialty Start Date End Date Alan Beyer MD [address] [place] [address] PCP - General Family Medicine 06/08/23 documented as of this encounter
--- OUTSIDE RECORDS SUMMARY | 2024-11-05 10:19 | XMS_ITS | Encounter Summary ---
Author Organization [employer] Address [address] [place] [address] Care Team Providers Care Hydrographer Name Role Phone Alan Beyer MD Primary Care Provider [phone] Encounter Details Date Type Department Care Team (Late st Contact Info) Description 10/17/2020 Transcribed Document [facility] [place] [facility] [place] [address] ProviderJessenia MD [address] [place], [place] [address] Social History Tobacco Use Types Packs/Day Years Used Date Smoking Tobacco: Never Assessed Comments Unknown Sex and Gender Information Value Date Recorded Sex Assigned at Not on file Legal Sex Female 4:28 PM CDT Gender Identity Not on file Sexual Orientation Not on file documented as of this encounter Miscellaneous Notes * Cerner Conversion Note - Jessenia Alvarez MD - 10/17/2020 3:05 PM CDT ED Assessment Entered On: 10/17/2020 18:52 EDT Performed On: 10/17/2020 18:50 EDT by Oksana Rodriguez RN ED Quick Look Assessment Level of Consciousness : Alert, Awake Affect/Behavior : Appropriate, Calm, Cooperative Oksana Rodriguez RN - 10/17/2020 18:50 EDT ED General-Functional Assess Information Obtained From : Patient Preferred Communication Mode : Verbal Communication Barrier : None Primary Language : Afghan Any Spiritual/Cultural Needs or Requests : No Currently in Unsafe Situation : No Oksana Rodriguez RN - 10/17/2020 18:50 EDT Social Habits Smoking Status : 10 or more cigarettes (1/2 pack or more)/day in last 30 days Smokeless Tobacco Status : Never Desires Tobacco Cessation Medication : No Reason for No Tobacco Cessation Medication : ED/procedural patient only Desires Tobacco Cessation Calc : 1 Oksana Rodriguez RN - 10/17/2020 18:50 EDT Social History (As Of: 10/17/2020 18:52:24 EDT) Tobacco: 4 or less cigarettes(less than [...] 05/24/2018 10:39:04 EST by Breanna Ivey, ELVER) Electronically signed by Trevon Bhatia Conversion Certified Residential Medication Aide Cerner at 08/31/2022 5:00 PM CDT documented in this encounter Plan of Treatment Not on file documented as of this encounter Visit Diagnoses Not on filedocumented in this encounter Care Teams Hydrographer Relationship Specialty Start Date End Date Alan Beyer MD [address] [place] [address] PCP - General Family Medicine 06/08/23 documented as of this encounter
--- OUTSIDE RECORDS SUMMARY | 2024-11-05 10:19 | XMS_ITS | Encounter Summary ---
Author Organization [employer] Address [address] [place] [address] Care Team Providers Care Practice Managers Name Role Phone Alan Beyer MD Primary Care Provider [phone] Encounter Details Date Type Department Care Team (Late st Contact Info) Description 07/15/2021 Transcribed Document [facility] [place] [facility] [place] [address] ProviderJessenia MD [address] [place] [address] Social History Tobacco Use Types Packs/Day Years Used Date Smoking Tobacco: Never Assessed Comments Unknown Sex and Gender Information Value Date Recorded Sex Assigned at Not on file Legal Sex Female 4:28 PM CDT Gender Identity Not on file Sexual Orientation Not on file documented as of this encounter Miscellaneous Notes * Cerner Conversion Note - Jessenia Alvarez MD - 07/15/2021 3:35 PM MANAGER AUDIT [place] [id number] CHARLINE BOND :1980 Visit Time:07/15/2021 Your Visit Summary Your Care Team Primary Provider: GIANCARLO HALEY Secondary Provider: Your Diagnosis Chest pain, Chest pain Chest pain Medical Information You may obtain a [...] do next Follow-Up Appointments Follow Up with RAYA MCDONALD When 07/19/2021 11:45 AM EST Comments 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 Keep appointment with the spray gun repairer for Monday July 19, 2021 at 11:45 am Take one baby aspirin daily Avoid any exertion lifting etc. Follow Up with MICHAEL HOSKINS When Within 2 to 3 days Where: [address] [place], [place] [id number] [facility] (1) Allergies Bactrim acetaminophen-oxyCODONE clindamycin Toradol baclofen [...] This Visit (last charted value for your 07/15/2021 visit) Hematology 07/15/2021 1:24 PM WBC: 5.4 K/uL -- Normal range between ( 3.9 and 10.0 ) RBC: 3.78 Million/uL -- Normal range between ( 3.93 and 5.22 ) Hct: 39.5 % -- Normal range between ( 34.1 and 44.9 ) Hgb: 13.2 Gram/dL -- Normal range between ( 11.2 and 15.7 ) Platelet Count: 193 K/uL -- Normal range between ( 163 and 369 ) MCH: 34.9 pg -- Normal range between ( 25.6 and 32.2 ) MCHC: 33.4 Gram/dL -- Normal range between ( 32.3 and 36.5 ) MCV: 104.5 fL -- Normal range between ( 79.0 and 94.8 ) Slide Review: No Eos %: 0.7 % -- Normal range between ( 1.0 and 7.0 ) [place] #: 0.27 K/uL -- Normal range between ( 0.24 and 0.82 ) Eos #: 0.04 K/uL -- Normal range between ( 0.04 and 0.54 ) [place] %: 5.0 % -- Normal range between ( 4.7 and 12.5 ) Baso %: 0.2 % -- Normal range between ( 0.0 and 1.0 ) Baso #: 0.01 K/uL -- Normal range between ( 0.01 and 0.08 ) RDW: 12.4 % -- Normal range between ( 11.6 and 14.4 ) Neut %: 68.2 % -- Normal range between ( 34.0 and 71.0 ) Neut #: 3.72 K/uL -- Normal range between ( 1.56 and 6.13 ) Lymph %: 25.7 % -- Normal range between ( 19.3 and 53.0 ) Lymph #: 1.40 K/uL -- Normal range between ( 1.18 and 3.74 ) MPV: 10.1 fL -- Normal range between ( 9.4 and 12.4 ) IG#: 0 x10(3)/uL IG%: 0 % -- Normal range between ( 0 and 1 ) General Chemistry 07/15/2021 1:24 PM Creatinine Level: 0.73 mg/dL -- Normal range between ( 0.55 and 1.02 ) Sodium Level: 139 mmol/L -- Normal range between ( 136 and 146 ) Potassium Level: 3.5 mmol/L -- Normal range between ( 3.5 and 5.1 ) Chloride Level: 107 mmol/L -- Normal range between ( 102 and 112 ) Carbon Dioxide Level: 23 mmol/L -- Normal range between ( 21 and 32 ) Anion Gap: 12 -- Normal range between ( 9 and 20 ) Bilirubin Total: 0.4 mg/dL -- Normal range between ( 0.2 and 1.3 ) A/G Ratio: 0.9 -- Normal range between ( 1.1 and 2.5 ) ALT: 28 Units/Liter -- Normal range between ( 12 and 78 ) AST: 18 Units/Liter -- Normal range between ( 5 and 37 ) Globulin: 4.2 Gram/dL -- Normal range between ( 1.5 and 4.5 ) Alk Phos: 77 Units/Liter -- Normal range between ( 27 and 136 ) Bun/Creatinine: 15.1 -- Normal range between ( 8.0 and 20.0 ) Calcium Level: 9.0 mg/dL -- Normal range between ( 8.5 and 10.1 ) eGFR : >60 mL/min/1.73m2 eGFR NonAfrican: >60 mL/min/1.73m2 Glucose Level: 108 mg/dL -- Normal range between ( 74 and 106 ) Blood Urea Nitrogen: 11 mg/dL -- Normal range between ( 7 and 22 ) Protein Total: 7.8 Gram/dL -- Normal range between ( 6.4 and 8.2 ) Albumin Level: 3.6 Gram/dL -- Normal range between ( 3.4 and 5.0 ) Cardiac Specific Markers 07/15/2021 1:24 PM ProBNP: 118 pg/mL -- Normal range between ( 0 and 125 ) Troponin I High Sensitivity: 210.1 pg/mL -- Normal range between ( 3.0 and 58.8 ) Endocrinology 07/15/2021 1:32 PM TSH: 0.196 mcInt Units/mL -- Normal range between ( 0.358 and 3.740 ) T4 Total: 8.0 mcg/mL -- Normal range between ( 4.8 and 13.9 ) Diagnostic Radiology 07/15/2021 1:58 PM CR Chest 1 Vw Portable: CR Chest 1 Vw Portable [employer] Nonspecific Chest Pain, Adult Chest pain can be caused by many different conditions. It can be caused by a condition that is life-threatening and requires treatment right away. It can also be caused by something that is not life-threatening. If you have chest pain, it can be hard to know the difference, so it is important to get help right away to make sure that you do not have a serious condition. Some life-threatening causes of chest pain include: ??? Heart attack. ??? A tear in the body's main blood vessel (aortic dissection). ??? Inflammation around your heart (pericarditis). ??? A problem in the lungs, such as a blood clot (pulmonary embolism) or a collapsed lung (pneumothorax). Some non life-threatening causes of chest pain include: ??? Heartburn. ??? Anxiety or stress. ??? Damage to the bones, muscles, and cartilage that make up your chest wall. ??? Pneumonia or bronchitis. ??? Shingles infection (varicella-zoster virus). Chest pain can feel like: ??? Pain or discomfort on the surface of your chest or deep in your chest. ??? Crushing, pressure, aching, or squeezing pain. ??? Burning or tingling. ??? Dull or sharp pain that is worse when you move, cough, or take a deep breath. ??? Pain or discomfort that is also felt in your back, neck, jaw, shoulder, or arm, or pain that spreads to any of these areas. Your chest pain may come and go. It may also be constant. Your health care provider will do lab tests and other studies to find the cause of your pain. Treatment will depend on the cause of your chest pain. Follow these instructions at home: Medicines ??? Take rrxx-dho-gnptjeu and prescription medicines only as told by your health care provider. ??? If you were prescribed an antibiotic, take it as told by your health care provider. Do not stop taking the antibiotic even if you start to feel better. Lifestyle ??? Rest as directed by your health care provider. ??? Do not use any products that contain nicotine or tobacco, such as cigarettes and e-cigarettes. If you need help quitting, ask your health care provider. ??? Do not drink alcohol. ??? Make healthy lifestyle choices as recommended. These may include: ? Getting regular exercise. Ask your health care provider to suggest some activities that are safe for you. ? Eating a heart-healthy diet. This includes plenty of fresh fruits and vegetables, whole grains, low-fat (lean) protein, and low-fat dairy products. A dietitian can help you find healthy eating options. ? Maintaining a healthy weight. ? Managing any other health conditions you have, such as high blood pressure (hypertension) or diabetes. ? Reducing stress, such as with yoga or relaxation techniques. General instructions ??? Pay attention to any changes in your symptoms. Tell your health care provider about them or any new symptoms. ??? Avoid any activities that cause chest pain. ??? Keep all follow-up visits as told by your health care provider. This is important. This includes visits for any further testing if your chest pain does not go away. Contact a health care provider if: ??? Your chest pain does not go away. ??? You feel depressed. ??? You have a fever. Get help right away if: ??? Your chest pain gets worse. ??? You have a cough that gets worse, or you cough up blood. ??? You have severe pain in your abdomen. ??? You faint. ??? You have sudden, unexplained chest discomfort. ??? You have sudden, unexplained discomfort in your arms, back, neck, or jaw. ??? You have shortness of breath at any time. ??? You suddenly start to sweat, or your skin gets clammy. ??? You feel nausea or you vomit. ??? You suddenly feel lightheaded or dizzy. ??? You have severe weakness, or unexplained weakness or fatigue. ??? Your heart begins to beat quickly, or it feels like it is skipping beats. These symptoms may represent a serious problem that is an emergency. Do not wait to see if the symptoms will go away. Get medical help right away. Call your local emergency services (911 in the [place] Do not drive yourself to the hospital. Summary ??? Chest pain can be caused by a condition that is serious and requires urgent treatment. It may also be caused by something that is not life-threatening. ??? If you have chest pain, it is very important to see your health care provider. Your health care provider may do lab tests and other studies to find the cause of your pain. ??? Follow your health care provider's instructions on taking medicines, making lifestyle changes, and getting emergency treatment if symptoms become worse. ??? Keep all follow-up visits as told by your health care provider. This includes visits for any further testing if your chest pain does not go away. This information is not intended to replace advice given to you by your health care provider. Make sure you discuss any questions you have with your health care provider. Document Revised: 10/31/2018 Document Reviewed: 10/31/2018 Elsevier Patient Education ?? [address] [employer] Emergency Awareness and Preventative Care STROKE [...] Assistance with quitting is available by contacting 9-433-KHTH-NOW. This is a free resource providing counseling, support, and referral. Or you may contact your personal physician. [place] Suicide Prevention Lifeline: The National Suicide Prevention [...] was given the opportunity to ask questions. Patient/Rn Peritoneal Dialysis Name: Patient/Rn Peritoneal Dialysis Signature: Relationship to Patient: Clinician/Hospital Rn Peritoneal Dialysis Signature: Please Provide a Telephone Number Where You Can Be Reached: Is it Permissible To Leave a Message? Date: Electronically signed by Jannette, [facility] Conversion Automobile Mechanic Supervisor Cerner at 08/31/2022 5:17 PM CDT documented in this encounter Plan of Treatment Not on file documented as of this encounter Visit Diagnoses Not on filedocumented in this encounter Care Teams Practice Managers Relationship Specialty Start Date End Date Alan Beyer MD [address] [place] [address] PCP - General Family Medicine 06/08/23 documented as of this encounter
--- OUTSIDE RECORDS SUMMARY | 2024-11-05 10:19 | XMS_ITS | Encounter Summary ---
Author Organization [employer] Address [address] [place] [address] Care Team Providers Care Senior Engineering Manager Name Role Phone Alan Beyer MD Primary Care Provider [phone] Encounter Details Date Type Department Care Team (Late st Contact Info) Description 10/17/2020 Transcribed Document [facility] [place] [facility] [place] [address] ProviderJessenia MD [address] [place], [place] [address] Social History Tobacco Use Types Packs/Day Years Used Date Smoking Tobacco: Never Assessed Comments Unknown Sex and Gender Information Value Date Recorded Sex Assigned at Not on file Legal Sex Female 4:28 PM CDT Gender Identity Not on file Sexual Orientation Not on file documented as of this encounter Miscellaneous Notes * Cerner Conversion Note - Jessenia Alvarez MD - 10/17/2020 7:04 PM CDT ED Discharge Entered On: 10/17/2020 19:07 EDT Performed On: 10/17/2020 19:04 EDT by PASCUAL AHNKINS Discharge Process Patient Disposition : Discharge Personal Belongings With Patient : Yes Patient Education Completed : Yes Teaching Evaluation : Verbalizes understanding IV Discontinued : Not applicable Nursing Documentation Completed : Yes PASCUAL HANKINS - 10/17/2020 19:04 EDT ED Discharge Discharge To : Home without planned follow-up Mode Of Departure : Private vehicle Accompanied By : Significant other Discharge Instructions Reviewed With, Opportunity For Questions Given : Patient Prescriptions Given to Patient : Yes PASCUAL HANKINS - 10/17/2020 19:04 EDT documented in this encounter Plan of Treatment Not on file documented as of this encounter Visit Diagnoses Not on filedocumented in this encounter Care Teams Senior Engineering Manager Relationship Specialty Start Date End Date Alan Beyer MD [address] [place] [address] PCP - General Family Medicine 06/08/23 documented as of this encounter
--- OUTSIDE RECORDS SUMMARY | 2024-11-05 10:19 | XMS_ITS | Encounter Summary ---
Author Organization [email or web address] Address [address] [place] [address] Care Team Providers Care Geochemical Laboratory Technician Name Role Phone Alan Beyer MD Primary Care Provider [phone] Encounter Details Date Type Department Care Team (Late st Contact Info) Description 07/15/2021 Transcribed Document [facility] [place] [facility] [place] [address] ProviderJessenia MD [address] [place], [place] [address] Social History Tobacco Use Types Packs/Day Years Used Date Smoking Tobacco: Never Assessed Comments Unknown Sex and Gender Information Value Date Recorded Sex Assigned at Not on file Legal Sex Female 4:28 PM CDT Gender Identity Not on file Sexual Orientation Not on file documented as of this encounter Miscellaneous Notes * Cerner Conversion Note - Jessenia ProviderMD - 07/15/2021 3:31 PM AGRONOMY LOCATION MANAGER documented in this encounter Plan of Treatment Not on file documented as of this encounter Visit Diagnoses Not on filedocumented in this encounter Care Teams Geochemical Laboratory Technician Relationship Specialty Start Date End Date Alan Beyer MD [address] [place] [address] PCP - General Family Medicine 06/08/23 documented as of this encounter
--- OUTSIDE RECORDS SUMMARY | 2024-11-05 10:19 | XMS_ITS | Encounter Summary ---
Author Organization [employer] Address [address] [place] [address] Care Team Providers Care Engineering Assistant Name Role Phone Alan Beyer MD Primary Care Provider [phone] Encounter Details Date Type Department Care Team (Late st Contact Info) Description 2018 Transcribed Document [facility] [place] [facility] [place] [address] ProviderJessenia MD [address] [place], [place] [id number] Social History Tobacco Use Types Packs/Day Years Used Date Smoking Tobacco: Never Assessed Comments Unknown Sex and Gender Information Value Date Recorded Sex Assigned at Not on file Legal Sex Female 4:28 PM CDT Gender Identity Not on file Sexual Orientation Not on file documented as of this encounter Miscellaneous Notes * Cerner Conversion Note - Jessenia Alvarez MD - 2018 8:18 PM CDT Electronically signed by Jannette [facility] Conversion Louver Mortiser Operator Cerner at 08/31/2022 5:21 PM CDT documented in this encounter Plan of Treatment Not on file documented as of this encounter Visit Diagnoses Not on filedocumented in this encounter Care Teams Engineering Assistant Relationship Specialty Start Date End Date Alan Beyer MD [address] [place] [address] PCP - General Family Medicine 06/08/23 documented as of this encounter
--- OUTSIDE RECORDS SUMMARY | 2024-11-05 10:19 | XMS_ITS | Encounter Summary ---
Author Organization [employer] Address [address] [place] [address] Care Team Providers Care Prop Setter Name Role Phone Alan Beyer MD Primary Care Provider [phone] Encounter Details Date Type Department Care Team (Late st Contact Info) Description 09/28/2020 Transcribed Document [facility] [address] [place] [address] Yomi Rodríguez MD [address] [place] [address] Dept. of Emergency Medicine [place] [id number] Social History Tobacco Use Types Packs/Day Years Used Date Smoking Tobacco: Never Assessed Comments Unknown Sex and Gender Information Value Date Recorded Sex Assigned at Not on file Legal Sex Female 4:28 PM CDT Gender Identity Not on file Sexual Orientation Not on file documented as of this encounter Miscellaneous Notes * Cerner Conversion Note - Yomi Rodríguez MD - 09/28/2020 1:43 AM EDT CR Chest 2 Vws Ordered: 09/27/2020 Auth (Verified) Reason for Exam: chest pain 09/27/2020 19:56 09/28/2020 00:43 (YOMI RODRÍGUEZ MD-EMR) Reviewed by Provider, No further action required Electronically signed by Trevon Bhatia Conversion Regulatory Affairs Portfolio Leader Cerner at 08/31/2022 5:22 PM CDT documented in this encounter Plan of Treatment Not on file documented as of this encounter Visit Diagnoses Not on filedocumented in this encounter Care Teams Prop Setter Relationship Specialty Start Date End Date Alan Beyer MD [address] [place] [address] PCP - General Family Medicine 06/08/23 documented as of this encounter
--- OUTSIDE RECORDS SUMMARY | 2024-11-05 10:19 | XMS_ITS | Encounter Summary ---
Author Organization [employer] Address [address] [place] [address] Care Team Providers Care Long Filler Cigar Roller Machine Name Role Phone Alan Beyer MD Primary Care Provider [phone] Encounter Details Date Type Department Care Team (Late st Contact Info) Description 2018 Transcribed Document [facility] [place] [facility] [place] [address] ProviderJessenia MD [address] [place] [address] Social History Tobacco Use Types Packs/Day Years Used Date Smoking Tobacco: Never Assessed Comments Unknown Sex and Gender Information Value Date Recorded Sex Assigned at Not on file Legal Sex Female 4:28 PM CDT Gender Identity Not on file Sexual Orientation Not on file documented as of this encounter Miscellaneous Notes * Cerner Conversion Note - Jessenia Alvarez MD - 2018 8:07 PM CDT [place] [id number] CHARLINE BOND :1980 Visit Time:2018 Your Visit Summary Your Care Team Admitting Physician - JAVI TRUJILLO MD-EMR Attending Physician - JAVI TRUJILLO MD-EMR Primary Care Physician - JORGE LUIS BUENO NP-[facility] Referring Physician - PRIYA, SELF REFERRED Your Diagnosis Elevated blood pressure reading Knee pain Medical Information You may obtain a [...] Appointments Follow Up with Follow up with workmen's comp. physician When Within 1 day Follow Up with AMY GAMBLE When Within 1 day Where: [address] [facility] [address] [place] [address]- Business (1) Follow Up with JORGE LUIS BUENO When Within 2 to 3 days Where: [address] [place] [address]- Business (1) Allergies Bactrim acetaminophen-oxyCODONE clindamycin Toradol baclofen doxycycline escitalopram fentaNYL lidocaine topical 2% gel meperidine morphine penicillin tetanus immune globulin Immunizations This Visit No Immunizations Found Medications What How Much When Instructions Next Dose New acetaminophen-hydrocodone (Cranks 5 mg-325 mg oral tablet) 1 Tablet(s) Oral Every 6 Hours as needed for for pain Printed Prescription The home medications listed are only as [...] This Visit (last charted value for your 2018 visit) No Laboratory or Other Results This Visit Education Materials Knee Pain, Adult Knee pain in adults is common. It can be caused by many things, including: ??? Arthritis. ??? A fluid-filled sac (cyst) or growth in your knee. ??? An infection in your knee. ??? An injury that will not heal. ??? Damage, swelling, or irritation of the tissues that support your knee. Knee pain is usually not a sign of a serious problem. The pain may go away on its own with time and rest. If it does not, a health care provider may order tests to find the cause of the pain. These may include: ??? Imaging tests, such as an X-ray, MRI, or ultrasound. ??? Joint aspiration. In this test, fluid is removed from the knee. ??? Arthroscopy. In this test, a lighted tube is inserted into knee and an image is projected onto a TV screen. ??? A biopsy. In this test, a sample of tissue is removed from the body and studied under a microscope. Follow these instructions at home: Pay attention to any changes in your symptoms. Take these actions to relieve your pain. Activity ??? Rest your knee. ??? Do not do things that cause pain or make pain worse. ??? Avoid high-impact activities or exercises, such as running, jumping rope, or doing jumping jacks. General instructions ??? Take wvxr-nlk-ingceky and prescription medicines only as told by your health care provider. ??? Raise (elevate) your knee above the level of your heart when you are sitting or lying down. ??? Sleep with a pillow under your knee. ??? If directed, apply ice to the knee: ? Put ice in a plastic bag. ? Place a towel between your skin and the bag. ? Leave the ice on for 20 minutes, 2???3 times a day. ??? Ask your health care provider if you should wear an elastic knee support. ??? Lose weight if you are overweight. Extra weight can put pressure on your knee. ??? Do not use any products that contain nicotine or tobacco, such as cigarettes and e-cigarettes. Smoking may slow the healing of any bone and joint problems that you may have. If you need help quitting, ask your health care provider. Contact a health care provider if: ??? Your knee pain continues, changes, or gets worse. ??? You have a fever along with knee pain. ??? Your knee vero or locks up. ??? Your knee swells, and the swelling becomes worse. Get help right away if: ??? Your knee feels warm to the touch. ??? You cannot move your knee. ??? You have severe pain in your knee. ??? You have chest pain. ??? You have trouble breathing. Summary ??? Knee pain in adults is common. It can be caused by many things, including, arthritis, infection, cysts, or injury. ??? Knee pain is usually not a sign of a serious problem, but if it does not go away, a health care provider may perform tests to know the cause of the pain. ??? Pay attention to any changes in your symptoms. Relieve your pain with rest, medicines, light activity, and use of ice. ??? Get help if your pain continues or becomes very severe, or if your knee vero or locks up, or if you have chest pain or trouble breathing. This information is not intended to replace advice given to you by your health care provider. Make sure you discuss any questions you have with your health care provider. Document Released: 02/25/2008 Document Revised: 04/20/2017 Document Reviewed: 04/20/2017 [employer] Interactive Patient Education ?? 2019 [employer] Emergency Awareness and Preventative Care STROKE [...] Assistance with quitting is available by contacting 7-556-GDCU-NOW. This is a free resource providing counseling, support, and referral. Or you may contact your personal physician. [place] Suicide Prevention Lifeline: The National Suicide Prevention [...] was given the opportunity to ask questions. Patient/Retail Commission Sales Associate Name: Patient/Retail Commission Sales Associate Signature: Relationship to Patient: Clinician/Hospital Retail Commission Sales Associate Signature: Please Provide a Telephone Number Where You Can Be Reached: Is it Permissible To Leave a Message? Date: Electronically signed by Jannette, [facility] Conversion Oil Filters Inspector Cerner at 08/31/2022 5:26 PM CDT documented in this encounter Plan of Treatment Not on file documented as of this encounter Visit Diagnoses Not on filedocumented in this encounter Care Teams Long Filler Cigar Roller Machine Relationship Specialty Start Date End Date Alan Beyer MD [address] [place] [address] PCP - General Family Medicine 06/08/23 documented as of this encounter
--- OUTSIDE RECORDS SUMMARY | 2024-11-05 10:19 | XMS_ITS | Encounter Summary ---
Author Organization [employer] Address [address] [place] [address] Care Team Providers Care Manager Farm Name Role Phone Alan Beyer MD Primary Care Provider [phone] Encounter Details Date Type Department Care Team (Late st Contact Info) Description 12/14/2018 Transcribed Document [facility] [place] [address] ProviderJessenia MD [address] [place] [address] Social History Tobacco Use Types Packs/Day Years Used Date Smoking Tobacco: Never Assessed Comments Unknown Sex and Gender Information Value Date Recorded Sex Assigned at Not on file Legal Sex Female 4:28 PM CDT Gender Identity Not on file Sexual Orientation Not on file documented as of this encounter Miscellaneous Notes * Cerner Conversion Note - Jessenia Alvarez MD - 12/14/2018 11:08 AM CDT Pain Assessment Entered On: 12/14/2018 13:00 EDT Performed On: 12/14/2018 12:27 EDT by MARYSE TAVERAS RN Intervention Information: HYDROmorphone Performed by MARYSE TAVERAS RN on 12/14/2018 11:57:00 EDT HYDROmorphone,0.5mg IV Push,Peripheral Line 1 Pain Assessment Pain Assessment : Follow-up assessment Pain Scale Used : 0-10 Scale MARYSE TAVERAS RN - 12/14/2018 13:00 EDT Pain Scale Intensity : 4 MARYSE TAVERAS RN - 12/14/2018 13:00 EDT Image 4 - Images currently included in the form version of this document have not been included in the text rendition version of the form. documented in this encounter Plan of Treatment Not on file documented as of this encounter Visit Diagnoses Not on filedocumented in this encounter Care Teams Manager Farm Relationship Specialty Start Date End Date Alan Beyer MD [address] [place] [address] PCP - General Family Medicine 06/08/23 documented as of this encounter
--- OUTSIDE RECORDS SUMMARY | 2024-11-05 10:19 | XMS_ITS | Encounter Summary ---
Author Organization [employer] Address [address] [place] [address] Care Team Providers Care Telephone Appointment Clerk Name Role Phone Alan Beyer MD Primary Care Provider [phone] Encounter Details Date Type Department Care Team (Late st Contact Info) Description 07/15/2021 Transcribed Document [facility] [place] [address] [place] [address] ProviderJessenia MD [address] [place] [address] Social History Tobacco Use Types Packs/Day Years Used Date Smoking Tobacco: Never Assessed Comments Unknown Sex and Gender Information Value Date Recorded Sex Assigned at Not on file Legal Sex Female 4:28 PM CDT Gender Identity Not on file Sexual Orientation Not on file documented as of this encounter Miscellaneous Notes * Cerner Conversion Note - Jessenia Alvarez MD - 07/15/2021 12:33 PM AUTOMOTIVE MANUFACTURER Broset Violence Assessment Entered On: 07/15/2021 13:59 EST Performed On: 07/15/2021 13:58 EST by Suyapa Anglin RN-PATIENT CARE BEDSIDE NON-EXEMPT Broset Violence Assessment Broset Violence Checklist of Symptoms : None Broset Violence Symptoms Subtotal : 0 Broset Violence Symptoms Indicator : Low risk (0) Suyapa Anglin RN-PATIENT CARE BEDSIDE NON-EXEMPT - 07/15/2021 13:58 EST Electronically signed by Jannette [facility] Conversion Profile Trimmer Cerner at 08/31/2022 5:19 PM CDT documented in this encounter Plan of Treatment Not on file documented as of this encounter Visit Diagnoses Not on filedocumented in this encounter Care Teams Telephone Appointment Clerk Relationship Specialty Start Date End Date Alan Beyer MD [address] [place] [address] PCP - General Family Medicine 06/08/23 documented as of this encounter
--- OUTSIDE RECORDS SUMMARY | 2024-11-05 10:19 | XMS_ITS | Encounter Summary ---
Author Organization [employer] Address [address] [place] [address] Care Team Providers Care Box Maker Paperboard Name Role Phone Alan Beyer MD Primary Care Provider [phone] Encounter Details Date Type Department Care Team (Late st Contact Info) Description 11/01/2020 Transcribed Document [facility] [place] [facility] [place] [address] ProviderJessenia MD [address] [place], [place] [address] Social History Tobacco Use Types Packs/Day Years Used Date Smoking Tobacco: Never Assessed Comments Unknown Sex and Gender Information Value Date Recorded Sex Assigned at Not on file Legal Sex Female 4:28 PM CDT Gender Identity Not on file Sexual Orientation Not on file documented as of this encounter Miscellaneous Notes * Cerner Conversion Note - Jessenia Alvarez MD - 11/01/2020 10:55 PM CDT ED Discharge Entered On: 11/01/2020 22:56 EDT Performed On: 11/01/2020 22:55 EDT by Marly Frias parking patroller Process Patient Disposition : Discharge Personal Belongings With Patient : Yes Patient Education Completed : Yes Teaching Evaluation : Verbalizes understanding IV Discontinued : Yes Nursing Documentation Completed : Yes Marly Frias RN - 11/01/2020 22:55 EDT ED Discharge Discharge To : Home with ambulatory/outpatient follow-up Mode Of Departure : Ambulatory Accompanied By : Significant other Discharge Instructions Reviewed With, Opportunity For Questions Given : Patient, Significant other Prescriptions Given to Patient : Yes Medications Given to Patient : Yes Marly Frias RN - 11/01/2020 22:55 EDT Electronically signed by [facility], [facility] Conversion Front End Mechanic Cerner at 08/31/2022 5:00 PM CDT documented in this encounter Plan of Treatment Not on file documented as of this encounter Visit Diagnoses Not on filedocumented in this encounter Care Teams Box Maker Paperboard Relationship Specialty Start Date End Date Alan Beyer MD [address] [place] [address] PCP - General Family Medicine 06/08/23 documented as of this encounter
--- OUTSIDE RECORDS SUMMARY | 2024-11-05 10:19 | XMS_ITS | Encounter Summary ---
Author Organization [employer] Address [address] [place] [address] Care Team Providers Care Supervisor Modern Languages Name Role Phone Alan Beyer MD Primary Care Provider [phone] Encounter Details Date Type Department Care Team (Late st Contact Info) Description 2018 Transcribed Document [facility] [place] [facility] [place] [address] ProviderJessenia MD [address] [place] [address] Social History Tobacco Use Types Packs/Day Years Used Date Smoking Tobacco: Never Assessed Comments Unknown Sex and Gender Information Value Date Recorded Sex Assigned at Not on file Legal Sex Female 4:28 PM CDT Gender Identity Not on file Sexual Orientation Not on file documented as of this encounter Miscellaneous Notes * Cerner Conversion Note - Jessenia Alvarez MD - 2018 5:52 PM CDT ED Triage Entered On: 2018 18:34 EDT Performed On: 2018 18:28 EDT by RASTA BUCKLEY RN ED Triage Across the Room Triage Date/Time : 2018 18:28 EDT Chief Complaint : pt c/o rt knee pain , seen at [facility] today and given ibuprofen and had x ray, states wants 2nd opinion , states ibuprofen not helping the pain RASTA BUCKLEY RN - 2018 18:28 EDT DCP GENERIC CODE Tracking Acuity : 3 - Urgent Tracking Group : [facility] [place] RASTA BUCKLEY RN - 2018 18:28 EDT Mode of Arrival : Ambulatory Transported to ED by : Private vehicle To Room Via : Ambulate Accompanied By : Unaccompanied ED Vital Signs : Document Height & Weight : Document ED Allergies : Document ED Reason for Visit : Document Tetanus Immunization : Unknown RASTA BUCKLEY RN - 2018 18:28 EDT Infectious Disease History Infectious Disease History : Chicken pox/Shingles, Herpes Fever/Chills Last 48 Hours : No Travel To Regions with Travel Advisories : No Travel Outside [place] Within Last 30 Days : No Contact With Traveler to Advisory Region : No Tuberculosis Symptoms : None RASTA BUCKLEY RN - 2018 18:28 EDT Vital Signs ED Temperature Source : Tympanic Temperature Mode : Fahrenheit Temperature, Fahrenheit : 98.1 Deg F ED Pain : Yes Clinical Temperature, C : 36.7 Deg C Oxygen Therapy Mode : Room air Peripheral Pulse Rate : 84 bpm Respiratory Rate : 18 Breaths/Min Systolic Blood Pressure : 156 mmHg (HI) Diastolic Blood Pressure : 77 mmHg Oxygen Saturation : 100 % RASTA BUCKLEY RN - 2018 18:28 EDT Allergy (As Of: 2018 18:34:25 EDT) Allergies (Active) acetaminophen-oxyCODONE Estimated Onset Date: Unspecified ; Comments: Comment 1: throws up and itching ; Created By: Breanna Ivey Rn; Reaction Status: Active ; Category: Drug ; Substance: acetaminophen-oxyCODONE ; Severity: Severe ; Updated By: Breanna Ivey Rn; Source: Patient ; Reviewed Date: 2018 18:32 EDT baclofen Estimated Onset Date: Unspecified ; Comments: Comment 1: hives and cant breath ; Created By: Breanna Ivey Rn; Reaction Status: Active ; Category: Drug ; Substance: baclofen ; Type: Allergy ; Updated By: Breanna Ivey Rn; Reviewed Date: 2018 18:32 EDT Bactrim Estimated Onset Date: Unspecified ; Comments: Comment 1: hives not breathing ; Created By: Breanna Ivey Rn; Reaction Status: Active ; Category: Drug ; Substance: Bactrim ; Type: Allergy ; Severity: Severe ; Updated By: Breanna Ivey Rn; Source: Patient ; Reviewed Date: 2018 18:32 EDT clindamycin Estimated Onset Date: Unspecified ; Created By: Isi Khoury Rn; Reaction Status: Active ; Category: Drug ; Substance: clindamycin ; Type: Allergy ; Severity: Severe ; Updated By: Isi Khoury Rn; Reviewed Date: 2018 18:32 EDT doxycycline Estimated Onset Date: Unspecified ; Comments: Comment 1: hives and projectile vomiting ; Created By: Breanna Ivey Rn; Reaction Status: Active ; Category: Drug ; Substance: doxycycline ; Type: Allergy ; Updated By: Breanna Ivey Rn; Reviewed Date: 2018 18:32 EDT escitalopram Estimated Onset Date: Unspecified ; Comments: Comment 1: unknown ; Created By: Breanna Ivey Rn; Reaction Status: Active ; Category: Drug ; Substance: escitalopram ; Type: Allergy ; Updated By: Breanna Ivey Rn; Reviewed Date: 2018 18:32 EDT fentaNYL Estimated Onset Date: Unspecified ; Comments: Comment 1: hallucinate and cry ; Created By: Breanna Ivey Rn; Reaction Status: Active ; Category: Drug ; Substance: fentaNYL ; Type: Allergy ; Updated By: Breanna Ivey Rn; Reviewed Date: 2018 18:32 EDT lidocaine topical 2% gel Estimated Onset Date: Unspecified ; Comments: Comment 1: severe swelling, itching, rash ; Created By: Breanna Ivey Rn; Reaction Status: Active ; Category: Drug ; Substance: lidocaine topical 2% gel ; Type: Allergy ; Updated By: Breanna Ivey Rn; Reviewed Date: 2018 18:32 EDT meperidine Estimated Onset Date: Unspecified ; Comments: Comment 1: hallucinations and angry ; Created By: Breanna Ivey Rn; Reaction Status: Active ; Category: Drug ; Substance: meperidine ; Type: Allergy ; Updated By: Breanna Ivey Rn; Reviewed Date: 2018 18:32 EDT morphine Estimated Onset Date: Unspecified ; Comments: Comment 1: severe itching ; Created By: Breanna Ivey Rn; Reaction Status: Active ; Category: Drug ; Substance: morphine ; Type: Allergy ; Updated By: Breanna Ivey Rn; Reviewed Date: 2018 18:32 EDT penicillin Estimated Onset Date: Unspecified ; Comments: Comment 1: hives ; Created By: Breanna Ivey Rn; Reaction Status: Active ; Category: Drug ; Substance: penicillin ; Type: Allergy ; Updated By: Breanna Ivey Rn; Reviewed Date: 2018 18:32 EDT tetanus immune globulin Estimated Onset Date: Unspecified ; Comments: Comment 1: adverse reaction I get tetanus and my body will swell up ; Created By: Breanna Ivey Rn; Reaction Status: Active ; Category: Drug ; Substance: tetanus immune globulin ; Type: Allergy ; Updated By: Breanna Ivey Rn; Reviewed Date: 2018 18:32 EDT Toradol Estimated Onset Date: Unspecified ; Comments: Comment 1: feels like a softball in chest and my chest goes numb ; Created By: Breanna Ivey Rn; Reaction Status: Active ; Category: Drug ; Substance: Toradol ; Type: Allergy ; Updated By: Breanna Ivey Rn; Reviewed Date: 2018 18:32 EDT Diagnosis Control ED (As Of: 2018 18:34:25 EDT) Problems(Active) Anxiety (SNOMED CT :66557377 ) Name of Problem: Anxiety ; Recorder: ERICKA ISSA RN; Confirmation: Confirmed ; Classification: Medical ; Code: [id number] ; Contributor System: FindYogi ; Last Updated: 07/26/2015 22:28 EDT ; Life Cycle Date: 07/26/2015 ; Life Cycle Status: Active ; Vocabulary: SNOMED CT Endometriosis, vagina (SNOMED CT :61655360 ) Name of Problem: Endometriosis, vagina ; Recorder: Breanna Ivey Rn; Confirmation: Confirmed ; Classification: Medical ; Code: [id number] ; Contributor System: PowerChart ; Last Updated: 05/24/2018 10:54 EST ; Life Cycle Date: 05/24/2018 ; Life Cycle Status: Active ; Vocabulary: SNOMED CT Kidney stones (SNOMED CT :891458059 ) Name of Problem: Kidney stones ; Recorder: KAYY ANDREW; Confirmation: Confirmed ; Classification: Medical ; Code: [id number] ; Contributor System: PowerChart ; Last Updated: 06/06/2016 9:30 EST ; Life Cycle Date: 06/06/2016 ; Life Cycle Status: Active ; Vocabulary: SNOMED CT Migraine (SNOMED CT :72463334 ) Name of Problem: Migraine ; Recorder: ERICKA ISSA RN; Confirmation: Confirmed ; Classification: Medical ; Code: [id number] ; Contributor System: FindYogi ; Last Updated: 07/26/2015 22:28 EDT ; Life Cycle Date: 07/26/2015 ; Life Cycle Status: Active ; Vocabulary: SNOMED CT Shoulder pain, left (SNOMED CT :09417464 ) Name of Problem: Shoulder pain, left ; Recorder: Breanna Ivey Rn; Confirmation: Confirmed ; Classification: Medical ; Code: [id number] ; Contributor System: PowerChart ; Last Updated: 05/24/2018 10:53 EST ; Life Cycle Date: 05/24/2018 ; Life Cycle Status: Active ; Vocabulary: SNOMED CT Diagnoses(Active) Knee injury - Minor Date: 2018 ; Diagnosis Type: Reason For Visit ; Confirmation: Complaint of ; Clinical Dx: Knee injury - Minor ; Classification: Medical ; Clinical Service: Emergency medicine ; Code: PNED ; Probability: 0 ; Diagnosis Code: [id number] ED Height and Weight Height Source : Stated Height Entry Format : [place] Height, Feet : 5 ft(Converted to: 152 cm, 60 Inch) Height, Inches : 5 Inch(Converted to: 0 ft 5 Inch, 12.70 cm) Clinical Height : 165.1 cm Weight Source, ED : Standing scale Weight Entry Format : [place] Weight, Pounds : 158 lb Clinical Dosing Weight : 71.82 kg Body Surface Area (BSA) : 1.79 m2 Body Mass Index : 26.3 kg/m2 (HI) [place] Body Weight (IBW) : 56.59 kg RASTA BUCKLEY RN - 2018 18:28 EDT Pain Assessment Pain Assessment : Initial assessment Pain Scale Used : 0-10 Scale Location : Knee, right RASTA BUCKLEY RN - 2018 18:28 EDT Pain Scale Intensity : 7 RASTA BUCKLEY RN - 2018 18:28 EDT Image 4 - Images currently included in the form version of this document have not been included in the text rendition version of the form. documented in this encounter Plan of Treatment Not on file documented as of this encounter Visit Diagnoses Not on filedocumented in this encounter Care Teams Supervisor Modern Languages Relationship Specialty Start Date End Date Alan Beyer MD [address] [place] [address] PCP - General Family Medicine 06/08/23 documented as of this encounter
--- OUTSIDE RECORDS SUMMARY | 2024-11-05 10:19 | XMS_ITS | Encounter Summary ---
Author Organization [employer] Address [address] [place] [address] Care Team Providers Care Home Sales Consultant Name Role Phone Alan Beyer MD Primary Care Provider [phone] Encounter Details Date Type Department Care Team (Late st Contact Info) Description 07/15/2021 Transcribed Document [facility] Family Medicine [facility] [place] [address] ProviderJessenia MD [address] [place] [address] Social History Tobacco Use Types Packs/Day [...] Jessenia Alvarez MD - 07/15/2021 12:33 PM SECONDARY SET UP MAN ED Triage Entered On: 07/15/2021 12:46 EST Performed On: 07/15/2021 12:43 EST by Maria Heller RN-PATIENT CARE BEDSIDE NON-EXEMPT ED Triage Across the Room Chief Complaint : Pt c/o CP x2 hr that radiates to the left jaw. Seen here Sunday for the same complaint Triage Date/Time : 07/15/2021 12:43 EST Maria Heller RN-PATIENT CARE BEDSIDE NON-EXEMPT - 07/15/2021 12:43 EST DCP GENERIC CODE Tracking Acuity : 2 - Emergent Tracking Group : [facility] ED East Maria Heller RN-PATIENT CARE BEDSIDE NON-EXEMPT - 07/15/2021 12:43 EST Mode of Arrival : Ambulatory Transported to ED by : Private vehicle To Room Via : Ambulate Accompanied By : Unaccompanied ED Vital Signs : Document Height & Weight : Document ED Allergies : Document ED Reason for Visit : Document Tetanus Immunization : Unknown Maria Heller RN-PATIENT CARE [facility] NON-EXEMPT - 07/15/2021 12:43 EST Infectious Disease History Does patient have symptoms of COVID-19? : No Has the Patient Been Tested for COVID-19 in the last 14 days? : Yes, Patient stated results Negative Does the Patient state known exposure to a COVID-19 positive case in the last 14 days? : No Patient Vaccinated for COVID-19 : Fully vaccinated Maria Heller RN-PATIENT CARE [facility] NON-EXEMPT - 07/15/2021 12:43 EST Infectious Disease Risk Screening Grid Cough < 2 wks of unknown origin : NO Cough > 2 weeks : NO Blood in Sputum : NO Fever or self-reported Fever : NO Rash of unknown origin : NO Headache : NO Stiff neck : NO Night Sweats : NO Unexplained Weight Loss : NO Diarrhea (3 episode per day) : NO Maria Heller RN-PATIENT CARE [facility] NON-EXEMPT - 07/15/2021 12:43 EST Physical contact outside [place] in the last 30 days : No Hospitalized in Foreign Country : No Infectious Disease History : Chicken pox/Shingles, Herpes, Influenza, Mononucleosis INF Disease TB Screening Calc : 0 INF Disease Recent Travel Calc : 0 Maria Heller RN-PATIENT CARE [facility] NON-EXEMPT - 07/15/2021 12:43 EST Vital Signs ED Temperature Source : Tympanic Temperature Mode : Fahrenheit Temperature, Fahrenheit : 97.9 Deg F Clinical Temperature, C : 36.6 Deg C Oxygen Therapy Mode : Room air Peripheral Pulse Rate : 116 bpm (HI) Respiratory Rate : 21 Breaths/Min (HI) Systolic Blood Pressure : 149 mmHg (HI) Diastolic Blood Pressure : 98 mmHg (HI) Oxygen Saturation : 98 % Maria Heller RN-PATIENT CARE [facility] NON-EXEMPT - 07/15/2021 12:43 EST Allergy (As Of: 07/15/2021 12:46:06 EST) Allergies (Active) acetaminophen-oxyCODONE Estimated Onset Date: Unspecified ; Comments: Comment 1: throws up and itching ; Created By: Breanna Ivey Rn; Reaction Status: Active ; Category: Drug ; Substance: acetaminophen-oxyCODONE ; Severity: Severe ; Updated By: Breanna Ivey Rn; Source: Patient ; Reviewed Date: 07/15/2021 12:45 EST baclofen Estimated Onset Date: Unspecified ; Comments: Comment 1: hives and cant breath ; Created By: Breanna Ivey Rn; Reaction Status: Active ; Category: Drug ; Substance: baclofen ; Type: Allergy ; Updated By: Breanna Ivey Rn; Reviewed Date: 07/15/2021 12:45 EST Bactrim Estimated Onset Date: Unspecified ; Comments: Comment 1: hives not breathing ; Created By: Breanna Ivey Rn; Reaction Status: Active ; Category: Drug ; Substance: Bactrim ; Type: Allergy ; Severity: Severe ; Updated By: Breanna Ivey Rn; Source: Patient ; Reviewed Date: 07/15/2021 12:45 EST clindamycin Estimated Onset Date: Unspecified ; Comments: Comment 1: Hives, vomiting ; Created By: Talia Eason RN; Reaction Status: Active ; Category: Drug ; Substance: clindamycin ; Type: Allergy ; Severity: Severe ; Updated By: Talia Eason RN; Reviewed Date: 07/15/2021 12:45 EST doxycycline Estimated Onset Date: Unspecified ; Comments: Comment 1: hives and projectile vomiting ; Created By: Breanna Ivey Rn; Reaction Status: Active ; Category: Drug ; Substance: doxycycline ; Type: Allergy ; Updated By: Breanna Ivey Rn; Reviewed Date: 07/15/2021 12:45 EST escitalopram Estimated Onset Date: Unspecified ; Comments: Comment 1: unknown ; Created By: Breanna Ivey Rn; Reaction Status: Active ; Category: Drug ; Substance: escitalopram ; Type: Allergy ; Updated By: Breanna Ivey Rn; Reviewed Date: 07/15/2021 12:45 EST fentaNYL Estimated Onset Date: Unspecified ; Comments: Comment 1: hallucinate and cry ; Created By: Breanna Ivey Rn; Reaction Status: Active ; Category: Drug ; Substance: fentaNYL ; Type: Allergy ; Updated By: Breanna Ivey Rn; Reviewed Date: 07/15/2021 12:45 EST lidocaine topical 2% gel Estimated Onset Date: Unspecified ; Comments: Comment 1: severe swelling, itching, rash ; Created By: Breanna Ivey Rn; Reaction Status: Active ; Category: Drug ; Substance: lidocaine topical 2% gel ; Type: Allergy ; Updated By: Breanna Ivey Rn; Reviewed Date: 07/15/2021 12:45 EST meperidine Estimated Onset Date: Unspecified ; Comments: Comment 1: hallucinations and angry ; Created By: Breanna Ivey Rn; Reaction Status: Active ; Category: Drug ; Substance: meperidine ; Type: Allergy ; Updated By: Breanna Ivey Rn; Reviewed Date: 07/15/2021 12:45 EST morphine Estimated Onset Date: Unspecified ; Comments: Comment 1: severe itching ; Created By: Breanna Ivey Rn; Reaction Status: Active ; Category: Drug ; Substance: morphine ; Type: Allergy ; Updated By: Breanna Ivey Rn; Reviewed Date: 07/15/2021 12:45 EST penicillin Estimated Onset Date: Unspecified ; Reactions: Hives ; Comments: Comment 1: hives Comment 2: Pt has tolerated cefoxitin in 06/30, 06/01, and trying cefazolin 05/01 ; Created By: JAME ZUNIGA PharmD; Reaction Status: Active ; Category: Drug ; Substance: penicillin ; Type: Allergy ; Updated By: JAME ZUNIGA PharmD; Reviewed Date: 07/15/2021 12:45 EST tetanus immune globulin Estimated Onset Date: Unspecified ; Comments: Comment 1: adverse reaction I get tetanus and my body will swell up ; Created By: Breanna Ivey Rn; Reaction Status: Active ; Category: Drug ; Substance: tetanus immune globulin ; Type: Allergy ; Updated By: Breanna Ivey Rn; Reviewed Date: 07/15/2021 12:45 EST Toradol Estimated Onset Date: Unspecified ; Comments: Comment 1: feels like a softball in chest and my chest goes numb ; Created By: Breanna Ivey Rn; Reaction Status: Active ; Category: Drug ; Substance: Toradol ; Type: Allergy ; Updated By: Breanna Ivey Rn; Reviewed Date: 07/15/2021 12:45 EST Diagnosis Control ED (As Of: 07/15/2021 12:46:06 EST) Problems(Active) Anxiety (SNOMED CT :47769079 ) Name of Problem: Anxiety ; Recorder: ERICKA ISSA RN; Confirmation: Confirmed ; Classification: Medical ; Code: [id number] ; Contributor System: FantexChart ; Last Updated: 07/26/2015 22:28 EDT ; Life Cycle Date: 07/26/2015 ; Life Cycle Status: Active ; Vocabulary: SNOMED CT At risk for sleep apnea (IMO :12981661 ) Name of Problem: At risk for sleep apnea ; Recorder: SYSTEM, SYSTEM; Confirmation: Confirmed ; Classification: Medical ; Code: [id number] ; Last Updated: 07/13/2021 14:49 EST ; Life Cycle Date: 07/13/2021 ; Life Cycle Status: Active ; Vocabulary: IMO Endometriosis, vagina (SNOMED CT :90194342 ) Name of Problem: Endometriosis, vagina ; Recorder: Breanna Ivey RN; Confirmation: Confirmed ; Classification: Medical ; Code: 23520526 ; Contributor System: PowerChart ; Last Updated: 05/24/2018 10:54 EST ; Life Cycle Date: 05/24/2018 ; Life Cycle Status: Active ; Vocabulary: SNOMED CT Kidney stones (SNOMED CT :756933517 ) Name of Problem: Kidney stones ; Recorder: KAYY ANDREW; Confirmation: Confirmed ; Classification: Medical ; Code: 969051847 ; Contributor System: PowerChart ; Last Updated: 06/06/2016 9:30 EST ; Life Cycle Date: 06/06/2016 ; Life Cycle Status: Active ; Vocabulary: SNOMED CT Migraine (SNOMED CT :40920424 ) Name of Problem: Migraine ; Recorder: ERICKA ISSA RN; Confirmation: Confirmed ; Classification: Medical ; Code: 67242595 ; Contributor System: PowerChart ; Last Updated: 07/26/2015 22:28 EDT ; Life Cycle Date: 07/26/2015 ; Life Cycle Status: Active ; Vocabulary: SNOMED CT Multiple drug allergies (SNOMED CT :9882555003 ) Name of Problem: Multiple drug allergies ; Recorder: YOVANA WILKERSON NP-FAM; Confirmation: Confirmed ; Classification: Medical ; Code: [id number] ; Contributor System: PowerChart ; Last Updated: 07/13/2021 15:51 EST ; Life Cycle Date: 07/13/2021 ; Life Cycle Status: Active ; Responsible Provider: YOVANA WILKERSON NP-FAM; Vocabulary: SNOMED CT S/P hysterectomy (SNOMED CT :990268515 ) Name of Problem: S/P hysterectomy ; Recorder: LEONID CASTANEDA RN; Confirmation: Confirmed ; Classification: Medical ; Code: 407002838 ; Contributor System: PowerChart ; Last Updated: 11/06/2019 20:08 EDT ; Life Cycle Date: 11/06/2019 ; Life Cycle Status: Active ; Vocabulary: SNOMED CT Shoulder pain, left (SNOMED CT :90008617 ) Name of Problem: Shoulder pain, left ; Recorder: Breanna Ivey RN; Confirmation: Confirmed ; Classification: Medical ; Code: 17425205 ; Contributor System: FantexChart ; Last Updated: 05/24/2018 10:53 EST ; Life Cycle Date: 05/24/2018 ; Life Cycle Status: Active ; Vocabulary: SNOMED CT Thoracic disc herniation (SNOMED CT :482111632 ) Name of Problem: Thoracic disc herniation ; Recorder: YOVANA WILKERSON NP-FAM; Confirmation: Confirmed ; Classification: Medical ; Code: [id number] ; Contributor System: FantexChart ; Last Updated: 07/13/2021 15:51 EST ; Life Cycle Date: 07/13/2021 ; Life Cycle Status: Active ; Responsible Provider: YOVANA WILKERSON NP-FAM; Vocabulary: SNOMED CT Diagnoses(Active) Chest pain Date: 07/15/2021 ; Diagnosis Type: Reason For Visit ; Confirmation: Complaint of ; Clinical Dx: Chest pain ; Classification: Medical ; Clinical Service: Non-Specified ; Code: PNED ; Probability: 0 ; Diagnosis Code: [id number] ED Height and Weight Height Source : Estimated Height Entry Format : [place] Height, Feet : 5 ft(Converted to: 152 cm, 60 Inch) Height, Inches : 5 Inch(Converted to: 0 ft 5 Inch, 12.70 cm) Clinical Height : 165.1 cm Weight Source, ED : Critical estimated dosing weight Weight Entry Format : [place] Weight, Pounds : 168 lb Clinical Dosing Weight : 76.36 kg Body Surface Area (BSA) : 1.84 m2 Body Mass Index : 28 kg/m2 (HI) [place] Body Weight (IBW) : 56.59 kg Maria Heller RN-PATIENT CARE BEDSIDE NON-EXEMPT - 07/15/2021 12:43 EST Electronically signed by [facility], [facility] Conversion Medical Appointment Scheduler Cerner at 08/31/2022 5:10 PM CDT documented in this encounter Plan of Treatment Not on file documented as of this encounter Visit Diagnoses Not on filedocumented in this encounter Care Teams Home Sales Consultant Relationship Specialty Start Date End Date Alan Beyer MD [address] [place] [address] PCP - General Family Medicine 06/08/23 documented as of this encounter
--- OUTSIDE RECORDS SUMMARY | 2024-11-05 10:19 | XMS_ITS | Encounter Summary ---
Author Organization [employer] Address [address] [place] [address] Care Team Providers Care Machine Castings Plasterer Name Role Phone Alan Beyer MD Primary Care Provider [phone] Encounter Details Date Type Department Care Team (Late st Contact Info) Description 08/19/2021 Transcribed Document [facility] [place] [facility] [place] [address] ProviderJessenia MD [address] [place], [place] [id number] Social History Tobacco Use Types Packs/Day Years Used Date Smoking Tobacco: Never Assessed Comments Unknown Sex and Gender Information Value Date Recorded Sex Assigned at Not on file Legal Sex Female 4:28 PM CDT Gender Identity Not on file Sexual Orientation Not on file documented as of this encounter Miscellaneous Notes * Cerner Conversion Note - Jessenia Alvarez MD - 08/19/2021 7:21 PM CDT [place] Suicide Severity Rating Scale (C-SSRS) Entered On: 08/19/2021 22:34 EDT Performed On: 08/19/2021 20:00 EDT by MITCH CRANE RN [place] Suicide Severity Rating Scale (C-SSRS) CSSRS Past Month Wish to be : No CSSRS Past Month Suicidal Thoughts : No CSSRS Lifetime Suicide Behavior : No Suicide Severity Rating Score : 0 Suicide Severity Rating : No Additional Care Required at this time MITCH CRANE RN - 08/19/2021 22:34 EDT documented in this encounter Plan of Treatment Not on file documented as of this encounter Visit Diagnoses Not on filedocumented in this encounter Care Teams Machine Castings Plasterer Relationship Specialty Start Date End Date Alan Beyer MD [address] [place] [address] PCP - General Family Medicine 06/08/23 documented as of this encounter
--- OUTSIDE RECORDS SUMMARY | 2024-11-05 10:19 | XMS_ITS | Encounter Summary ---
Author Organization [email or web address] Address [address] [place] [address] Care Team Providers Care Assistant Center Director Name Role Phone Alan Beyer MD Primary Care Provider [phone] Encounter Details Date Type Department Care Team (Late st Contact Info) Description 09/27/2020 Transcribed Document [facility] [place] [facility] [place] [address] ProviderJessenia MD [address] [place], [place] [id number] Social History Tobacco Use Types Packs/Day Years Used Date Smoking Tobacco: Never Assessed Comments Unknown Sex and Gender Information Value Date Recorded Sex Assigned at Not on file Legal Sex Female 4:28 PM CDT Gender Identity Not on file Sexual Orientation Not on file documented as of this encounter Miscellaneous Notes * Cerner Conversion Note - Jessenia Alvarez MD - 09/27/2020 5:45 PM CDT ED Triage Entered On: 09/27/2020 17:49 EDT Performed On: 09/27/2020 17:47 EDT by SHAMA CASTILLO RN ED Triage Across the Room Chief Complaint : Pt c/o CP on and off x 1 week started 1hour ago worse, squeezing with pressure in my neck and left breast, +cough, resp even & unlabored, +nausea, denies vomiting. Triage Date/Time : 09/27/2020 17:47 EDT SHAMA CASTILLO RN - 09/27/2020 17:47 EDT DCP GENERIC CODE Tracking Acuity : 2 - Emergent Tracking Group : [facility] ED [facility] SHAMA CASTILLO RN - 09/27/2020 17:47 EDT Mode of Arrival : Ambulatory Transported to ED by : Private vehicle To Room Via : Ambulate Accompanied By : Unaccompanied ED Vital Signs : Document Height & Weight : Document ED Allergies : Document ED Reason for Visit : Document Tetanus Immunization : Unknown SHAMA CASTILLO RN - 09/27/2020 17:47 EDT Infectious Disease History Has the patient ever been tested for COVID-19? : Yes, Patient stated results Negative Date of COVID-19 test known? : No Date Comment : + in May 2020 Does patient have symptoms of COVID-19? : No COVID19 Screening : No Experiencing Infectious Disease Symptoms : No symptoms Physical contact outside US in the last 30 days : No Infectious Disease History : Chicken pox/Shingles, Herpes, Influenza, Mononucleosis Tuberculosis Symptoms : None SHAMA CASTILLO RN - 09/27/2020 17:47 EDT Vital Signs ED Temperature Source : Tympanic Temperature Mode : Fahrenheit Temperature, Fahrenheit : 98.2 Deg F Clinical Temperature, C : 36.8 Deg C Oxygen Therapy Mode : Room air Peripheral Pulse Rate : 100 bpm Respiratory Rate : 18 Breaths/Min Systolic Blood Pressure : 163 mmHg (HI) Diastolic Blood Pressure : 100 mmHg (HI) Oxygen Saturation : 98 % SHAMA CASTILLO RN - 09/27/2020 17:47 EDT Allergy (As Of: 09/27/2020 17:49:39 EDT) Allergies (Active) acetaminophen-oxyCODONE Estimated Onset Date: Unspecified ; Comments: Comment 1: throws up and itching ; Created By: Breanna Ivey Rn; Reaction Status: Active ; Category: Drug ; Substance: acetaminophen-oxyCODONE ; Severity: Severe ; Updated By: Breanna Ivey Rn; Source: Patient ; Reviewed Date: 09/27/2020 17:47 EDT baclofen Estimated Onset Date: Unspecified ; Comments: Comment 1: hives and cant breath ; Created By: Breanna Ivey Rn; Reaction Status: Active ; Category: Drug ; Substance: baclofen ; Type: Allergy ; Updated By: Breanna Ivey Rn; Reviewed Date: 09/27/2020 17:47 EDT Bactrim Estimated Onset Date: Unspecified ; Comments: Comment 1: hives not breathing ; Created By: Breanna Ivey Rn; Reaction Status: Active ; Category: Drug ; Substance: Bactrim ; Type: Allergy ; Severity: Severe ; Updated By: Breanna Ivye Rn; Source: Patient ; Reviewed Date: 09/27/2020 17:47 EDT clindamycin Estimated Onset Date: Unspecified ; Comments: Comment 1: Hives, vomiting ; Created By: Talia Eason RN; Reaction Status: Active ; Category: Drug ; Substance: clindamycin ; Type: Allergy ; Severity: Severe ; Updated By: Talia Eason RN; Reviewed Date: 09/27/2020 17:47 EDT doxycycline Estimated Onset Date: Unspecified ; Comments: Comment 1: hives and projectile vomiting ; Created By: Breanna Ivey Rn; Reaction Status: Active ; Category: Drug ; Substance: doxycycline ; Type: Allergy ; Updated By: Breanna Ivey Rn; Reviewed Date: 09/27/2020 17:47 EDT escitalopram Estimated Onset Date: Unspecified ; Comments: Comment 1: unknown ; Created By: Breanna Ivey Rn; Reaction Status: Active ; Category: Drug ; Substance: escitalopram ; Type: Allergy ; Updated By: Braenna Ivey Rn; Reviewed Date: 09/27/2020 17:47 EDT fentaNYL Estimated Onset Date: Unspecified ; Comments: Comment 1: hallucinate and cry ; Created By: Breanna Ievy Rn; Reaction Status: Active ; Category: Drug ; Substance: fentaNYL ; Type: Allergy ; Updated By: Breanna Ivey Rn; Reviewed Date: 09/27/2020 17:47 EDT lidocaine topical 2% gel Estimated Onset Date: Unspecified ; Comments: Comment 1: severe swelling, itching, rash ; Created By: Breanna Ivey Rn; Reaction Status: Active ; Category: Drug ; Substance: lidocaine topical 2% gel ; Type: Allergy ; Updated By: Breanna Ivey Rn; Reviewed Date: 09/27/2020 17:47 EDT meperidine Estimated Onset Date: Unspecified ; Comments: Comment 1: hallucinations and angry ; Created By: Breanna Ivey Rn; Reaction Status: Active ; Category: Drug ; Substance: meperidine ; Type: Allergy ; Updated By: Breanna Ivey Rn; Reviewed Date: 09/27/2020 17:47 EDT morphine Estimated Onset Date: Unspecified ; Comments: Comment 1: severe itching ; Created By: Breanna Ivey Rn; Reaction Status: Active ; Category: Drug ; Substance: morphine ; Type: Allergy ; Updated By: Breanna Ivey Rn; Reviewed Date: 09/27/2020 17:47 EDT penicillin Estimated Onset Date: Unspecified ; Reactions: Hives ; Comments: Comment 1: hives Comment 2: Pt has tolerated cefoxitin in 06/30, 06/01, and trying cefazolin 05/01 ; Created By: JAME ZUNIGA PharmD; Reaction Status: Active ; Category: Drug ; Substance: penicillin ; Type: Allergy ; Updated By: JAME ZUNIGA PharmD; Reviewed Date: 09/27/2020 17:47 EDT tetanus immune globulin Estimated Onset Date: Unspecified ; Comments: Comment 1: adverse reaction I get tetanus and my body will swell up ; Created By: Breanna Ivey Rn; Reaction Status: Active ; Category: Drug ; Substance: tetanus immune globulin ; Type: Allergy ; Updated By: Breanna Ivey Rn; Reviewed Date: 09/27/2020 17:47 EDT Toradol Estimated Onset Date: Unspecified ; Comments: Comment 1: feels like a softball in chest and my chest goes numb ; Created By: Breanna Ivey Rn; Reaction Status: Active ; Category: Drug ; Substance: Toradol ; Type: Allergy ; Updated By: Breanna Ivey Rn; Reviewed Date: 09/27/2020 17:47 EDT Diagnosis Control ED (As Of: 09/27/2020 17:49:39 EDT) Problems(Active) Anxiety (SNOMED CT :90567994 ) Name of Problem: Anxiety ; Recorder: ERICKA ISSA RN; Confirmation: Confirmed ; Classification: Medical ; Code: [id number] ; Contributor System: [employer] ; Last Updated: 07/26/2015 22:28 EDT ; Life Cycle Date: 07/26/2015 ; Life Cycle Status: Active ; Vocabulary: SNOMED CT Endometriosis, vagina (SNOMED CT :97615409 ) Name of Problem: Endometriosis, vagina ; Recorder: Breanna Ivey RN; Confirmation: Confirmed ; Classification: Medical ; Code: 79997156 ; Contributor System: PowerChart ; Last Updated: 05/24/2018 10:54 EST ; Life Cycle Date: 05/24/2018 ; Life Cycle Status: Active ; Vocabulary: SNOMED CT Kidney stones (SNOMED CT :915067125 ) Name of Problem: Kidney stones ; Recorder: KAYY ANDREW; Confirmation: Confirmed ; Classification: Medical ; Code: 123178303 ; Contributor System: PowerChart ; Last Updated: 06/06/2016 9:30 EST ; Life Cycle Date: 06/06/2016 ; Life Cycle Status: Active ; Vocabulary: SNOMED CT Migraine (SNOMED CT :53773580 ) Name of Problem: Migraine ; Recorder: ERICKA ISSA RN; Confirmation: Confirmed ; Classification: Medical ; Code: 92349609 ; Contributor System: PowerChart ; Last Updated: 07/26/2015 22:28 EDT ; Life Cycle Date: 07/26/2015 ; Life Cycle Status: Active ; Vocabulary: SNOMED CT S/P hysterectomy (SNOMED CT :479851634 ) Name of Problem: S/P hysterectomy ; Recorder: LEONID CASTANEDA RN; Confirmation: Confirmed ; Classification: Medical ; Code: 115530851 ; Contributor System: PowerChart ; Last Updated: 11/06/2019 20:08 EDT ; Life Cycle Date: 11/06/2019 ; Life Cycle Status: Active ; Vocabulary: SNOMED CT Shoulder pain, left (SNOMED CT :82072934 ) Name of Problem: Shoulder pain, left ; Recorder: Breanna Ivey RN; Confirmation: Confirmed ; Classification: Medical ; Code: 99442577 ; Contributor System: PowerChart ; Last Updated: 05/24/2018 10:53 EST ; Life Cycle Date: 05/24/2018 ; Life Cycle Status: Active ; Vocabulary: SNOMED CT Diagnoses(Active) Chest pain Date: 09/27/2020 ; Diagnosis Type: Reason For Visit ; Confirmation: Complaint of ; Clinical Dx: Chest pain ; Classification: Medical ; Clinical Service: Emergency medicine ; Code: PNED ; Probability: 0 ; Diagnosis Code: [id number] ED Height and Weight Height Source : Stated Height Entry Format : [place] Height, Feet : 5 ft(Converted to: 152 cm, 60 Inch) Height, Inches : 5 Inch(Converted to: 0 ft 5 Inch, 12.70 cm) Clinical Height : 165.1 cm Weight Source, ED : Critical estimated dosing weight Weight Entry Format : [place] Weight, Pounds : 170 lb Clinical Dosing Weight : 77.27 kg Body Surface Area (BSA) : 1.85 m2 Body Mass Index : 28.3 kg/m2 (HI) [place] Body Weight (IBW) : 56.59 kg SHAMA CASTILLO RN - 09/27/2020 17:47 EDT Electronically signed by [facility] Conversion Heel Seat Fitter Cerner at 08/31/2022 5:16 PM CDT documented in this encounter Plan of Treatment Not on file documented as of this encounter Visit Diagnoses Not on filedocumented in this encounter Care Teams Assistant Center Director Relationship Specialty Start Date End Date Alan Beyer MD [address] [place] [address] PCP - General Family Medicine 06/08/23 documented as of this encounter
--- OUTSIDE RECORDS SUMMARY | 2024-11-05 10:19 | XMS_ITS | Encounter Summary ---
Author Organization [employer] Address [address] [place] [address] Care Team Providers Care Hogshead Filler Name Role Phone Alan Beyer MD Primary Care Provider Encounter Details Date Type Department Care Team (Late st Contact Info) Description 12/14/2018 Transcribed Document [facility] [place] [facility] [place] [address] ProviderJessenia MD [address] [place] [id number] Social History Tobacco Use Types Packs/Day Years Used Date Smoking Tobacco: Never Assessed Comments Unknown Sex and Gender Information Value Date Recorded Sex Assigned at Not on file Legal Sex Female 4:28 PM CDT Gender Identity Not on file Sexual Orientation Not on file documented as of this encounter Miscellaneous Notes * Cerner Conversion Note - Jessenia Alvarez MD - 12/14/2018 11:09 AM CDT Patient: CHARLINE BOND Age: 38 years Sex: Female : 1980 Associated Diagnoses: Abdominal pain; Microscopic hematuria Author: JAMAR BREWER MD-EMR Basic Information Additional information: Chief Complaint from Nursing Triage Note : Chief Complaint 12/14/2018 10:50 EDT Chief Complaint C/o RLQ pain since this am. Hysterectomy May 2018 . History of Present Illness 38-year-old white female with c/o RLQ pain starting this morning and with recent hysterectomy May 2018. Pt has h/o following procedure (Dr. Lozano) 06/05/18: 1. Robotic assisted vaginal hysterectomy with left salpingo-oophorectomy. 2.Paravaginal repair. 3.Uterosacral vault suspension. 4.Fulguration of endometriosis. She also has prior h/o laparoscopic cholecystectomy and kidney stones. She c/o sharp pain of sudden onset, radiating to right flank at times. No f/c, +n/v without diarrhea. No recent illness, no trauma. Denies abnormal bleeding or discharge. Pt denies dysuria. No other complaints at this time. The patient presents with abdominal pain. The onset was 3 hours ago. The course/duration of symptoms is constant and fluctuating in intensity. The character of symptoms is sharp. The degree at onset was minimal. The Location of pain at onset was right, lower and abdominal. The degree at present is moderate. The Location of pain at present is right, lower and abdominal. Radiating pain: right flank. The exacerbating factor is none. Therapy today: none. Review of Systems Constitutional symptoms: Negative except as documented in HPI. Skin symptoms: Negative except as documented in HPI. Eye symptoms: Negative except as documented in HPI. ENMT symptoms: Negative except as documented in HPI. Respiratory symptoms: Negative except as documented in HPI. Cardiovascular symptoms: Negative except as documented in HPI. Gastrointestinal symptoms: Negative except as documented in HPI. Genitourinary symptoms: Negative except as documented in HPI. Musculoskeletal symptoms: Negative except as documented in HPI. Neurologic symptoms: Negative except as documented in HPI. Psychiatric symptoms: Negative except as documented in HPI. Endocrine symptoms: Negative except as documented in HPI. Health Status Allergies: Allergic Reactions (Selected) Severe [...] documented.. Medications: (Selected) Inpatient Medications Ordered Dilaudid: 0.5 mg, IV Push, 1-Time Sodium Chloride 0.9% intravenous solution 1,000 mL: 1,000 mL/Hr, IntraVENous Zofran: 4 mg, IV Push, 1-Time Documented Medications Documented Karine: Oral, 0 Refill(s) Premarin: Oral, Daily, 0 Refill(s) Robaxin-750 oral tablet: 1 Tab, Oral, Daily, 42 Tab, 0 Refill(s) Valtrex: Oral, 0 Refill(s) ibuprofen: 0 Refill(s) vitamin E: 100 Int Units, Oral, Daily, 0 Refill(s). Past Medical/ Family/ Social History Medical history Reviewed as documented in chart. Surgical history: Clavicle ([id number]). Tympanostomy ([id number]). Adenoids ([id number]). shoulder surgery. Gallbladder absent ([id number]). Tubal ligation ([id number]). Hysterectomy ([id number])., Reviewed as documented in chart. Family history: No family history items have [...] Physical Examination Vital Signs Vital Signs/Vital Measures 12/14/2018 10:50 EDT Systolic Blood Pressure 121 mmHg Diastolic Blood Pressure 72 mmHg Temperature Source Tympanic Temperature Mode Fahrenheit Temperature, Fahrenheit 98 Deg F Clinical Temperature, C 36.7 Deg C Peripheral Pulse Rate 96 bpm Respiratory Rate 18 Breaths/Min Oxygen Saturation 100 % . Measurements 12/14/2018 10:50 EDT Height Source Stated Height Entry Format [place] Height/Length, [place] (ft) 5 ft Height/Length [place] 5 Inch CLINICALHEIGHT 165.1 cm [place] Body Weight 56.59 kg Weight Source, ED Critical estimated dosing weight Weight Entry Format [place] Weight [place] lb 160 lb CLINICALWEIGHT 72.73 kg Body Surface Area (BSA) 1.8 m2 Body Mass Index 26.7 kg/m2 HI . Oxygen Saturation 12/14/2018 10:50 EDT Oxygen Saturation 100 % . General: Alert, no acute distress. Skin: Warm, dry, pink. Eye: Pupils are equal, round and reactive to light, extraocular movements are intact, anicteric. Ears, nose, mouth and throat: Oral mucosa moist, no pharyngeal erythema or exudate, no oral lesions. Cardiovascular: Regular rate and rhythm, Normal peripheral perfusion. Respiratory: Lungs are clear to auscultation, respirations are non-labored, breath sounds are equal. Gastrointestinal: Soft, Non distended, thin abdomen. ttp suprapubic region just right of midline. no pain over McBurney's. no rebound/guarding or peritonitis. Back: no CVAT. Musculoskeletal: Normal ROM. Neurological: Alert and oriented to person, place, time, and situation. Medical Decision Making Documents reviewed: Emergency department nurses' notes. Results review: Lab results : Lab Results 12/14/2018 11:17 EDT Urine Type U CleanCatch Urine Color Yellow Urine Appearance Clear Urine Specific [place] 1.020 Urine pH Dipstick 6.0 Urine Leukocyte Esterase Negative Urine Nitrite Negative Urine Protein Dipstick Negative Urine Glucose Dipstick Negative Urine Ketones Dipstick Negative Urine Urobilinogen Dipstick 0.2 EU/dL Urine Bilirubin Dipstick Negative mg/dL Urine Blood Dipstick Negative Ur RBC 0-2 /HPF Ur WBC 0-2 /HPF Ur Bacteria None Seen Ur Mucous 1+ Ur Squamous Epithelial Cells 5-10 /HPF HCG Urine Qualitative Negative 12/14/2018 11:09 EDT Sodium Level 140 mmol/L Potassium Level 4.3 mmol/L (Modified) Chloride Level 109 mmol/L Carbon Dioxide Level 26 mmol/L Anion Gap 9 Glucose Level 90 mg/dL Blood Urea Nitrogen 9 mg/dL Creatinine Level 0.64 mg/dL eGFR >60 mL/min/1.73m2 eGFR NonAfrican >60 mL/min/1.73m2 Bun/Creatinine 14.1 Calcium Level 8.7 mg/dL Protein Total 7.3 Gram/dL Albumin Level 3.5 Gram/dL Globulin 3.8 Gram/dL A/G Ratio 0.9 LOW Bilirubin Total 0.4 mg/dL Alk Phos 93 Units/Liter AST 25 Units/Liter ALT 14 Units/Liter Lipase Level 54 Units/Liter LOW WBC 7.1 K/uL RBC 3.72 Million/uL LOW Hgb 13.4 Gram/dL Hct 39.1 % MCV 105.1 fL HI MCH 36.0 pg HI MCHC 34.3 Gram/dL Platelet Count 172 K/uL MPV 10.7 fL RDW 13.2 % Neut % 65.8 % Neut # 4.65 K/uL Lymph % 27.0 % Lymph # 1.91 K/uL [place] % 5.9 % [place] # 0.42 K/uL Eos % 0.7 % LOW Eos # 0.05 K/uL Baso % 0.3 % Baso # 0.02 K/uL Slide Review No IG# 0 x10(3)/uL IG% 0 % . Impression and Plan 38 yo female with few hour h/o n/v and right lower abdoinal pain radiating to right side of back. Pt received 1L NS, zofran and pain control. Labs with microscopic hematuria. Exam and results suggestive of kidney stone given pt's history. She has had multiple prior CT scans related to endometriosis and kidney stones. Discussed with pain improved, will hold off on CT today but discussed indications for ER return. She has passed a very large stone in the past, tells me she passed the largest kidney stone ever passed by a female in the state of [place] a few yrs ago. No UTI. Will dc home. Diagnosis Abdominal pain - Discharge, Emergency medicine, Medical Microscopic hematuria - Discharge, Emergency medicine, Medical Plan Condition: Improved, Stable. Disposition: Discharged Admit/Transfer/Discharge: Discharge (Order): Start: 12/14/2018 13:05 EDT, Discharge to: Home. Prescriptions: Prescription [facility]: Zofran ODT 4 mg oral tablet, disintegrating (Prescribe): 1 Tab, Oral, TID, PRN: Nausea/Vomiting, 24 Tab, 0 Refill(s) [place] 5 mg-325 mg oral tablet (Prescribe): 1-2 tabs, Oral, Q6H, PRN: as needed for pain, 7 Tab, 0 Refill(s) nabumetone 500 mg oral tablet (Prescribe): 1 Tab, Oral, BID, for 4 Day(s), PRN: Pain, 8 Tab, 0 Refill(s). Patient was given the following educational materials: Dietary Guidelines to Help Prevent Kidney Stones. Follow up with: Patient Resource Center Within As needed Patient has a primary care physician with [facility]. For assistance in the future with finding a new primary care physician please contact the Patient Resource Center at [phone].; [facility] Within 2 to 3 days; Return to Emergency Department Within As needed Return if condition worsens. Try to rest up, drink lots of fluids, follow-up with urology if your symptoms continue. Take medication as needed and drink enough water until the urine is pale yellow in color. You can strain the urine as well to look for the stone. Return to the ER for fevers 101.0 high or, pain not controlled, or getting worse.. Counseled: Patient, Family, Regarding diagnosis, Regarding diagnostic results, Regarding treatment plan, Regarding prescription, Patient indicated understanding of instructions. documented in this encounter Plan of Treatment Not on file documented as of this encounter Visit Diagnoses Not on filedocumented in this encounter Care Teams Hogshead Filler Relationship Specialty Start Date End Date Alan Beyer MD [address] [place] [address] PCP - General Family Medicine 06/08/23 documented as of this encounter
--- OUTSIDE RECORDS SUMMARY | 2024-11-05 10:19 | XMS_ITS | Encounter Summary ---
Author Organization [employer] Address [address] [place] [address] Care Team Providers Care Metrology Technician Name Role Phone Alan Beyer MD Primary Care Provider [phone] Encounter Details Date Type Department Care Team (Late st Contact Info) Description 07/15/2021 Transcribed Document [facility] [place] [address] ProviderJessenia MD [address] [place], [place] [address]151 Social History Tobacco Use Types Packs/Day Years Used Date Smoking Tobacco: Never Assessed Comments Unknown Sex and Gender Information Value Date Recorded Sex Assigned at Not on file Legal Sex Female 4:28 PM CDT Gender Identity Not on file Sexual Orientation Not on file documented as of this encounter Miscellaneous Notes * Cerner Conversion Note - Jessenia ProviderMD - 07/15/2021 5:35 PM SHOW CARD WRITER CR Chest 1 Vw Portable Ordered: 07/15/2021 Modified Reason for Exam: Chest Pain 07/15/2021 15:30 07/15/2021 17:35 (KIRK NOGUERA) No further action required documented in this encounter Plan of Treatment Not on file documented as of this encounter Visit Diagnoses Not on filedocumented in this encounter Care Teams Metrology Technician Relationship Specialty Start Date End Date Alan Beyer MD [address] [place] [address] PCP - General Family Medicine 06/08/23 documented as of this encounter
--- OUTSIDE RECORDS SUMMARY | 2024-11-05 10:19 | XMS_ITS | Encounter Summary ---
Author Organization [email or web address] Address [address] [place] [address] Care Team Providers Care Grants Specialist Name Role Phone Alan Beyer MD Primary Care Provider [phone] Encounter Details Date Type Department Care Team (Late st Contact Info) Description 08/19/2021 Transcribed Document [facility] [place] Family [place] [facility] [place] [address] ProviderJessenia MD [address] [place] [id number] Social History Tobacco Use Types Packs/Day Years Used Date Smoking Tobacco: Never Assessed Comments Unknown Sex and Gender Information Value Date Recorded Sex Assigned at Not on file Legal Sex Female 4:28 PM CDT Gender Identity Not on file Sexual Orientation Not on file documented as of this encounter Miscellaneous Notes * Cerner Conversion Note - Jessenia Alvarez MD - 08/19/2021 10:44 PM CDT Patient: CHARLINE BOND Age: 40 years Sex: Female : 1980 Associated Diagnoses: Calculus of ureterovesical junction (UVJ) Author: ANGELIQUE VARELA MD-EMR Basic Information Additional information: Chief Complaint from Nursing Triage Note : Chief Complaint 08/19/2021 20:14 EDT Chief Complaint Pt c/o LEFT back and abd pain, frequent urination, and nausea from the pain. Pt states: I believe I am passing a kidney stone. I thought it was a UTI but apparently it is not. I was peeing blood earlier but now it is crystal clear . History of Present Illness The patient presents with flank pain. The onset was 1 days ago. The course/duration of symptoms is constant. The character of symptoms is sharp. The degree at onset was moderate. The Location of pain at onset was left and flank. The degree at present is moderate. The Location of pain at present is left and flank. Radiating pain: none. The exacerbating factor is none. The relieving factor is none. Therapy today: none. Risk factors consist of none. Associated symptoms: denies chest pain, denies nausea, denies vomiting, denies diarrhea, denies shortness of breath, denies fever and denies chills. Review of Systems Constitutional symptoms: No fever, Skin symptoms: Negative except as documented in HPI. Eye symptoms: Negative except as documented in HPI. ENMT symptoms: Negative except as documented in HPI. Respiratory symptoms: No shortness of breath, no cough. Cardiovascular symptoms: No chest pain, no syncope. Gastrointestinal symptoms: No abdominal pain, no nausea, no vomiting, no diarrhea. Genitourinary symptoms: Hematuria. Musculoskeletal symptoms: Negative except as documented in HPI. Neurologic symptoms: No numbness, no tingling, no weakness. Psychiatric symptoms: Negative except as documented in HPI. Additional review of systems information: All systems reviewed as documented in chart. Health Status Allergies: Allergic Reactions (Selected) Severe [...] Ordered Dilaudid: 1 mg, IV Push, 1-Time Prescriptions Prescribed Diovan 80 mg oral tablet: 1 Tab, Oral, Daily, for 30 Day(s), 30 Tab, 0 Refill(s) predniSONE 10 mg [...] tablet: 1 Tab, Oral, BID, 0 Refill(s) omeprazole: 40 mg, Oral, Daily, 0 Refill(s). Past Medical/ Family/ Social History Medical history Reviewed as documented in chart. Surgical history: Clavicle ([id number]). Tympanostomy ([id number]). Adenoids ([id number]). shoulder surgery. Gallbladder absent ([id number]). Tubal ligation ([id number]). Hysterectomy (693170133). Right knee ([id number]). Comments: 05/03/2020 15:32 Jyoti Tilley Rn menisectomy, [...] documented in chart. Problem list: Active Problems (9) Anxiety At risk for sleep apnea Endometriosis, vagina Kidney stones Migraine Multiple drug allergies S/P hysterectomy Shoulder pain, left Thoracic disc herniation . Physical Examination Vital Signs Vital Signs/Vital Measures 08/19/2021 20:14 EDT Systolic Blood Pressure 160 mmHg HI Diastolic Blood Pressure 109 mmHg HI Temperature Source Oral Temperature Mode Fahrenheit Temperature, Fahrenheit 99 Deg F Clinical Temperature, C 37.2 Deg C Peripheral Pulse Rate 98 bpm Respiratory Rate 16 Breaths/Min Oxygen Saturation 99 % Oxygen Therapy Mode Room air . Measurements 08/19/2021 20:14 EDT Height Source Stated Height Entry Format [place] Height/Length, [place] (ft) 5 ft Height/Length [place] 7 Inch CLINICALHEIGHT 170.18 cm [place] Body Weight 61.16 kg Weight Source, ED Critical estimated dosing weight Weight Entry Format [place] Weight [place] lb 170 lb CLINICALWEIGHT 77.27 kg Body Surface Area (BSA) 1.89 m2 Body Mass Index 26.7 kg/m2 HI . Oxygen Saturation 08/19/2021 20:14 EDT Oxygen Saturation 99 % . General: Alert, no acute distress. Skin: Warm, dry. Head: Normocephalic. Neck: Trachea midline. Eye: Pupils are equal, round and reactive to light. Ears, nose, mouth and throat: Oral mucosa moist. Cardiovascular: Regular rate and rhythm, Normal peripheral perfusion. Respiratory: Lungs are clear to auscultation, respirations are non-labored, breath sounds are equal. Gastrointestinal: Soft, Non distended, Tenderness: Moderate, left flank. Musculoskeletal: Normal ROM, no deformity. Neurological: Alert and oriented to person, place, time, and situation. Psychiatric: Cooperative, appropriate mood & affect. Medical Decision Making Differential Diagnosis: Abdominal pain, renal stone, ureteral stone, urinary tract infection, pyelonephritis. Documents reviewed: Emergency department nurses' notes, prior records. Orders test: UCG-negative. Results review: Lab results : Lab Results 08/19/2021 21:57 EDT Sodium Level 139 mmol/L Potassium Level 3.1 mmol/L LOW Chloride Level 104 mmol/L Carbon Dioxide Level 27 mmol/L Anion Gap 11 Glucose Level 83 mg/dL Blood Urea Nitrogen 12 mg/dL Creatinine Level 0.74 mg/dL eGFR >60 mL/min/1.73m2 eGFR NonAfrican >60 mL/min/1.73m2 Bun/Creatinine 16.2 Calcium Level 9.5 mg/dL Protein Total 9.3 Gram/dL HI Albumin Level 4.7 Gram/dL Globulin 4.6 Gram/dL HI A/G Ratio 1.0 LOW Bilirubin Total 0.3 mg/dL Alk Phos 96 Units/Liter AST 12 Units/Liter ALT 20 Units/Liter WBC 9.5 K/uL RBC 3.97 Million/uL Hgb 13.8 Gram/dL Hct 41.3 % MCV 104.0 fL HI MCH 34.8 pg HI MCHC 33.4 Gram/dL Platelet Count 232 K/uL MPV 9.9 fL RDW 12.1 % Neut % 59.9 % Neut # 5.66 K/uL Lymph % 34.0 % Lymph # 3.22 K/uL [place] % 4.8 % [place] # 0.45 K/uL Eos % 0.8 % LOW Eos # 0.08 K/uL Baso % 0.3 % Baso # 0.03 K/uL Slide Review No IG# 0 x10(3)/uL IG% 0 % 08/19/2021 21:06 EDT Urine Type. U CleanCatch Urine Color Yellow Urine Appearance Clear Urine Specific [place] 1.003 Urine pH Dipstick 6.5 Urine Leukocyte Esterase Negative Urine Nitrite Negative Urine Protein Dipstick Negative Urine Glucose Dipstick Negative Urine Ketones Dipstick Negative Urine Urobilinogen Dipstick 0.2 EU/dL Urine Bilirubin Dipstick Negative Urine Blood Dipstick Negative Urine Culture if Indicated Not Indicated HCG Urine Qualitative Negative . Radiology results: Radiology Results (Last 48 hours) [id number] -- 08/19/2021 19:21 CT Abdomen Pelvis WO (08/19/2021 22:20) Result: CT SCAN OF THE ABDOMEN AND PELVIS WITHOUT CONTRAST 08/19/2021 9:44 PM HISTORY:Left flank pain.PROCEDURE: Axial CT images were obtained from the lung bases to the pubic symphysiswithout IV contrast. Reformatted images were generated from the axialdata set and provided for interpretation. This study was performed withtechniques to keep radiation doses as low as reasonably achievable,(ALARA). Individualized dose reduction techniques using automatedexposure control or adjustment of mA and/or kV according to the patientsize were employed.COMPARISON: 05/30/2021.FINDINGS: Lack of IV contrast limits evaluation of the abdominal and pelvic solidorgans.LOWER CHEST:The heart is normal in size. Lung bases are clear.ABDOMEN/PELVIS:Liver, gallbladder and bile ducts:Unenhanced liver is grossly unremarkable without suspicious focalabnormality. Prior cholecystectomy. No definite biliary ductaldilatation. Adrenal glands:The adrenal glands are morphologically unremarkable without suspiciouslesion.Kidneys, ureters and urinary bladder:Tiny 2 mm obstructing stone present within the distal left ureter at theureterovesicular junction with minimal left hydronephrosis. Unremarkableurinary bladder.Spleen:The spleen is normal in size.Pancreas:The pancreas [...] isunremarkable.Peritoneum:No free intraperitoneal fluid or pneumoperitoneum.Pelvic viscera:Prior hysterectomy. Benign functional right ovarian cyst.Body wall:No acute findings. No significant body wall hernias.Bones:No acute fracture.IMPRESSION: Tiny 2 mm obstructing stone present within the distal left ureter at theureterovesicular junction with minimal left hydronephrosis.Images personally reviewed, interpreted and dictated by Sneha Rockwell . Impression and Plan Diagnosis Calculus of ureterovesical junction (UVJ) - Discharge, Medical Plan Condition: Stable. Disposition: Discharged Admit/Transfer/Discharge: Discharge (Order): Start: 08/19/2021 22:47 EDT, Discharge to: Home. Prescriptions: Prescription [facility]: [place] 5 mg-325 mg oral tablet (Prescribe): 1 Tab, Oral, Q6H, for 3 Day(s), PRN: for pain, 12 Tab, 0 Refill(s) Zofran ODT 4 mg oral tablet, disintegrating (Prescribe): 1 Tab, Oral, Q6H, for 2 Day(s), PRN: Nausea/Vomiting, 9 Tab, 0 Refill(s). Patient was given the following educational materials: Kidney Stones, Kidney Stones. Follow up with: MICHAEL HOSKINS Within 2 to 3 days Call for follow up appointment Follow-up as instructed; JAGDISH ALEXANDRE Within 2 to 3 days Call for follow up appointment Follow-up as instructed. Counseled: Patient, Regarding diagnosis, Regarding diagnostic results, Regarding treatment plan, Regarding prescription, Patient indicated understanding of instructions. documented in this encounter Plan of Treatment Not on file documented as of this encounter Visit Diagnoses Not on filedocumented in this encounter Care Teams Grants Specialist Relationship Specialty Start Date End Date Alan Beyer MD [address] [place] [address] PCP - General Family Medicine 06/08/23 documented as of this encounter
--- OUTSIDE RECORDS SUMMARY | 2024-11-05 10:19 | XMS_ITS | Encounter Summary ---
Author Organization [employer] Address [address] [place] [address] Care Team Providers Care Equip Tech Name Role Phone Alan Beyer MD Primary Care Provider [phone] Encounter Details Date Type Department Care Team (Late st Contact Info) Description 09/27/2020 Transcribed Document [facility] [place] [facility] [place] [address] ProviderJessenia MD [address] [place], [place] [address] Social History Tobacco Use Types Packs/Day Years [...] MD - 09/27/2020 5:45 PM CDT ED Assessment Entered On: 09/27/2020 19:04 EDT Performed On: 09/27/2020 18:20 EDT by TIFFANY VELEZ, WIRE SPOOLER Quick Look Assessment Level of Consciousness : Alert Affect/Behavior : Appropriate, Calm Orientation : Oriented x 4 Skin Temperature : Warm TIFFANY VELEZ RN - 09/27/2020 19:04 EDT ED General-Functional Assess Information Obtained From : Patient Preferred Communication Mode : Verbal Communication Barrier : None Primary Language : Chilean Any Spiritual/Cultural Needs or Requests : No Currently in Unsafe Situation : No TIFFANY VELEZ RN - 09/27/2020 19:04 EDT Social Habits Smoking Status : 4 or less cigarettes(less than 1/4 pack)/day in last 30 days Smokeless Tobacco Status : Never Desires Tobacco Cessation Medication : No Reason for No Tobacco Cessation Medication : Refuses FDA approved medications Desires Tobacco Cessation Calc : 1 TIFFANY VELEZ RN - 09/27/2020 19:04 EDT Social History (As Of: 09/27/2020 19:04:58 EDT) Tobacco: 4 or less cigarettes(less than [...] WDL with exceptions Cardiovascular Symptoms : Chest discomfort at rest, Chest discomfort with activity, Fatigue at rest, Fatigue with activity Heart Rhythm : Regular TIFFANY VELEZ RN - 09/27/2020 19:04 EDT Pulses Grid Radial Pulse, Left : 2+ normal Radial Pulse, Right : 2+ normal TIFFANY VELEZ RN - 09/27/2020 19:04 EDT Respiratory Breath Sounds Auscultated : Anterior, Laterally Respiratory Assessment WDL : WDL Cough : None TIFFANY VELEZ RN - 09/27/2020 19:04 EDT Breath Sounds Assessment Grid All Lobes Breath Sounds : Clear TIFFANY VELEZ RN - 09/27/2020 19:04 EDT Respiratory Pattern Description : Regular TIFFANY VELEZ RN - 09/27/2020 19:04 EDT Neurologic ASMT, ED Neurologic Assessment WDL : WDL Neurological Symptoms : None TIFFANY VELEZ RN - 09/27/2020 19:04 EDT Electronically signed by Jannette [facility] Conversion Band Saw Runner Cerner at 08/31/2022 5:02 PM CDT documented in this encounter Plan of Treatment Not on file documented as of this encounter Visit Diagnoses Not on filedocumented in this encounter Care Teams Equip Tech Relationship Specialty Start Date End Date Alan Beyer MD [address] [place] [address] PCP - General Family Medicine 06/08/23 documented as of this encounter
--- OUTSIDE RECORDS SUMMARY | 2024-11-05 10:19 | XMS_ITS | Encounter Summary ---
Author Organization [employer] Address [address] [place] [address] Care Team Providers Care Java Developer Consultant Name Role Phone Alan Beyer MD Primary Care Provider [phone] Encounter Details Date Type Department Care Team (Late st Contact Info) Description 09/27/2020 Transcribed Document [facility] [place] [facility] [address] ProviderJessenia MD [address] [place] [address] Social History Tobacco Use Types Packs/Day Years Used Date Smoking Tobacco: Never Assessed Comments Unknown Sex and Gender Information Value Date Recorded Sex Assigned at Not on file Legal Sex Female 4:28 PM CDT Gender Identity Not on file Sexual Orientation Not on file documented as of this encounter Miscellaneous Notes * Cerner Conversion Note - Jessenia Alvarez MD - 09/27/2020 7:43 PM CDT [place] [id number] CHARLINE BOND :1980 Visit Time:09/27/2020 Your Visit Summary Your Care Team Primary Provider: OTIS RODRÍGEUZ Secondary Provider: Your Diagnosis Chest pain Chest pain Costochondral pain Medical Information You may obtain a [...] provider When Within 2 to 3 days Follow Up with NO PRIM DR POWERS When Within 2 to 3 days Allergies Bactrim acetaminophen-oxyCODONE clindamycin Toradol baclofen doxycycline escitalopram fentaNYL lidocaine topical 2% gel meperidine morphine penicillin (Hives) tetanus immune globulin Immunizations This Visit No Immunizations Found Medications What How Much When Instructions Next Dose acetaminophen-hydrocodone ([place] 5 mg-325 mg oral tablet) 1 Tablet(s) Oral Two Times A Day as needed for for pain Duration: 2 Day(s) Pickup at [place] [address] predniSONE (predniSONE 10 mg oral tablet) 3 Tablet(s) Oral Every Day Duration: 5 Day(s) Pickup at [place] [address] conjugated estrogens (Premarin) Vaginal Weekly cream fexofenadine [...] Oral Every Day fever blister Pharmacy Information [facility] [address]: [address] [place], [place] [id number] [phone] The home medications listed are only as [...] This Visit (last charted value for your 09/27/2020 visit) Hematology 09/27/2020 5:50 PM WBC: 7.3 K/uL -- Normal range between ( 3.9 and 10.0 ) RBC: 3.57 Million/uL -- Normal range between ( 3.93 and 5.22 ) Hct: 36.4 % -- Normal range between ( 34.1 and 44.9 ) Hgb: 12.1 Gram/dL -- Normal range between ( 11.2 and 15.7 ) Platelet Count: 233 K/uL -- Normal range between ( 163 and 369 ) MCH: 33.9 pg -- Normal range between ( 25.6 and 32.2 ) MCHC: 33.2 Gram/dL -- Normal range between ( 32.3 and 36.5 ) MCV: 102.0 fL -- Normal range between ( 79.0 and 94.8 ) Slide Review: No Eos %: 4.5 % -- Normal range between ( 1.0 and 7.0 ) [place] #: 0.41 K/uL -- Normal range between ( 0.24 and 0.82 ) Eos #: 0.33 K/uL -- Normal range between ( 0.04 and 0.54 ) [place] %: 5.6 % -- Normal range between ( 4.7 and 12.5 ) Baso %: 0.3 % -- Normal range between ( 0.0 and 1.0 ) Baso #: 0.02 K/uL -- Normal range between ( 0.01 and 0.08 ) RDW: 12.0 % -- Normal range between ( 11.6 and 14.4 ) Neut %: 52.3 % -- Normal range between ( 34.0 and 71.0 ) Neut #: 3.83 K/uL -- Normal range between ( 1.56 and 6.13 ) Lymph %: 37.2 % -- Normal range between ( 19.3 and 53.0 ) Lymph #: 2.73 K/uL -- Normal range between ( 1.18 and 3.74 ) MPV: 9.7 fL -- Normal range between ( 9.4 and 12.4 ) IG#: 0 x10(3)/uL IG%: 0 % -- Normal range between ( 0 and 1 ) General Chemistry 09/27/2020 5:50 PM Creatinine Level: 0.74 mg/dL -- Normal range between ( 0.55 and 1.02 ) Sodium Level: 141 mmol/L -- Normal range between ( 136 and 146 ) Potassium Level: 3.4 mmol/L -- Normal range between ( 3.5 and 5.1 ) Chloride Level: 107 mmol/L -- Normal range between ( 102 and 112 ) Carbon Dioxide Level: 23 mmol/L -- Normal range between ( 21 and 32 ) Anion Gap: 14 -- Normal range between ( 9 and 20 ) Bilirubin Total: 0.3 mg/dL -- Normal range between ( 0.2 and 1.3 ) A/G Ratio: 1.2 -- Normal range between ( 1.1 and 2.5 ) ALT: 13 Units/Liter -- Normal range between ( 12 and 78 ) AST: 9 Units/Liter -- Normal range between ( 5 and 37 ) Globulin: 3.6 Gram/dL -- Normal range between ( 1.5 and 4.5 ) Alk Phos: 80 Units/Liter -- Normal range between ( 27 and 136 ) Bun/Creatinine: 14.9 -- Normal range between ( 8.0 and 20.0 ) Calcium Level: 8.6 mg/dL -- Normal range between ( 8.5 and 10.1 ) eGFR : >60 mL/min/1.73m2 eGFR NonAfrican: >60 mL/min/1.73m2 Glucose Level: 102 mg/dL -- Normal range between ( 74 and 106 ) Blood Urea Nitrogen: 11 mg/dL -- Normal range between ( 7 and 22 ) Protein Total: 7.8 Gram/dL -- Normal range between ( 6.4 and 8.2 ) Albumin Level: 4.2 Gram/dL -- Normal range between ( 3.4 and 5.0 ) Cardiac Specific Markers 09/27/2020 5:50 PM Troponin I Ultra: <0.015 ng/mL -- Normal range between ( 0.015 and 0.045 ) Coagulation 09/27/2020 5:53 PM D Dimer Quant: 182 ng/mL Education Materials Costochondritis Costochondritis is swelling and irritation (inflammation) of the tissue (cartilage) that connects your ribs to your breastbone (sternum). This causes pain in the front of your chest. Usually, the pain: ??? Starts gradually. ??? Is in more than one rib. This condition usually goes away on its own over time. Follow these instructions at home: ??? Do not do anything that makes your pain worse. ??? If directed, put ice on the painful area: ? Put ice in a plastic bag. ? Place a towel between your skin and the bag. ? Leave the ice on for 20 minutes, 2???3 times a day. ??? If directed, put heat on the affected area as often as told by your doctor. Use the heat source that your doctor tells you to use, such as a moist heat pack or a heating pad. ? Place a towel between your skin and the heat source. ? Leave the heat on for 20???30 minutes. ? Take off the heat if your skin turns bright red. This is very important if you cannot feel pain, heat, or cold. You may have a greater risk of getting burned. ??? Take vjbx-ivg-txauafe and prescription medicines only as told by your doctor. ??? Return to your normal activities as told by your doctor. Ask your doctor what activities are safe for you. ??? Keep all follow-up visits as told by your doctor. This is important. Contact a doctor if: ??? You have chills or a fever. ??? Your pain does not go away or it gets worse. ??? You have a cough that does not go away. Get help right away if: ??? You are short of breath. This information is not intended to replace advice given to you by your health care provider. Make sure you discuss any questions you have with your health care provider. Document Revised: 05/15/2018 Document Reviewed: 08/23/2016 [employer] Patient Education ?? 2020 [employer]. Chest Wall Pain Chest wall pain is pain in or around the bones and muscles of your chest. Chest wall pain may be caused by: ??? An injury. ??? Coughing a lot. ??? Using your chest and arm muscles too much. Sometimes, the cause may not be known. This pain may take a few weeks or longer to get better. Follow these instructions at home: Managing pain, stiffness, and swelling If told, put ice on the painful area: ??? Put ice in a plastic bag. ??? Place a towel between your skin and the bag. ??? Leave the ice on for 20 minutes, 2???3 times a day. Activity ??? Rest as told by your doctor. ??? Avoid doing things that cause pain. This includes lifting heavy items. ??? Ask your doctor what activities are safe for you. General instructions ??? Take asbu-qlx-xdtxmah and prescription medicines only as told by your doctor. ??? Do not use any products that contain nicotine or tobacco, such as cigarettes, e-cigarettes, and chewing tobacco. If you need help quitting, ask your doctor. ??? Keep all follow-up visits as told by your doctor. This is important. Contact a doctor if: ??? You have a fever. ??? Your chest pain gets worse. ??? You have new symptoms. Get help right away if: ??? You feel sick to your stomach (nauseous) or you throw up (vomit). ??? You feel sweaty or light-headed. ??? You have a cough with mucus from your lungs (sputum) or you cough up blood. ??? You are short of breath. These symptoms may be an emergency. Do not wait to see if the symptoms will go away. Get medical help right away. Call your local emergency services (911 in the [place] Do not drive yourself to the hospital. Summary ??? Chest wall pain is pain in or around the bones and muscles of your chest. ??? It may be treated with ice, rest, and medicines. Your condition may also get better if you avoid doing things that cause pain. ??? Contact a doctor if you have a fever, chest pain that gets worse, or new symptoms. ??? Get help right away if you feel light-headed or you get short of breath. These symptoms may be an emergency. This information is not intended to replace advice given to you by your health care provider. Make sure you discuss any questions you have with your health care provider. Document Revised: 10/31/2018 Document Reviewed: 10/31/2018 Fast Society Patient Education ?? 2020 [employer]. Emergency Awareness and Preventative Care STROKE is [...] Assistance with quitting is available by contacting 5-380-BPMY-NOW. This is a free resource providing counseling, [...] was given the opportunity to ask questions. Patient/Oliver Filter Operator Name: Patient/Oliver Filter Operator Signature: Relationship to Patient: Clinician/Hospital Oliver Filter Operator Signature: Please Provide a Telephone Number Where You Can Be Reached: Is it Permissible To Leave a Message? Date: Electronically signed by [facility] Conversion Oil Well Logging Engineer Jordan at 08/31/2022 5:21 PM CDT documented in this encounter Plan of Treatment Not on file documented as of this encounter Visit Diagnoses Not on filedocumented in this encounter Care Teams Java Developer Consultant Relationship Specialty Start Date End Date Alan Beyer MD [address] [place] [address] PCP - General Family Medicine 06/08/23 documented as of this encounter
--- OUTSIDE RECORDS SUMMARY | 2024-11-05 10:19 | XMS_ITS | Encounter Summary ---
Author Organization [employer] Address [address] [place] [address] Care Team Providers Care Nonprofit Fundraiser Name Role Phone Alan Beyer MD Primary Care Provider [phone] Encounter Details Date Type Department Care Team (Late st Contact Info) Description 10/17/2020 Transcribed Document [facility] [place] Family Medicine [facility] [place] [address] ProviderJessenia MD [address] [place] [address] Social History Tobacco Use Types Packs/Day Years Used Date Smoking Tobacco: Never Assessed Comments Unknown Sex and Gender Information Value Date Recorded Sex Assigned at Not on file Legal Sex Female 4:28 PM CDT Gender Identity Not on file Sexual Orientation Not on file documented as of this encounter Miscellaneous Notes * Cerner Conversion Note - Jessenia ProviderMD - 10/17/2020 7:07 PM CDT [place] [address] [place] [address] PERSON INFORMATION Name CHARLINE BOND Age 39 Years 1980 Sex Female Language Vietnamese PCP REGIN[address] P[address] DR Marital Status Med Service Emergency Medicine Acct# Arrival 10/17/2020 15:05:00 Visit Reason Flank pain; R FLANK PAIN Acuity 3 - Urgent LOS 000 04:02 Depart Date: 10/17/20 07:07 PM Address: [address] [place] [id number] Comment: PROVIDER INFORMATION Provider Role Assigned Unassigned JENNIFER HOWELL PA ED Physician 10/17/2020 16:36:13 PASCUAL HANKINS ED Nurse 10/17/2020 18:09:14 DIAGNOSIS Right flank pain PHYS DOC NOTES VITALS INFORMATION Vital Sign Triage Latest Temp Source Temporal artery scanning Oral Temp Mode Fahrenheit Fahrenheit Temp Fahrenheit 98.2 Deg F 98.2 Deg F Temp Celsius 02 Sat 98 % 98 % Respiratory Rate 17 Breaths/Min 17 Breaths/Min Peripheral Pulse Rate 98 bpm 98 bpm Apical Heart Rate Blood Pressure 147 mmHg / 87 mmHg 147 mmHg / 87 mmHg Comment: MEDICAL INFORMATION Allergy Info: fentaNYL; acetaminophen-oxyCODONE; Toradol; Bactrim; escitalopram; lidocaine topical 2% gel; tetanus immune globulin; baclofen; morphine; penicillin; clindamycin; doxycycline; meperidine Medications: Comment: DISCHARGE INFORMATION Discharge Disposition: Home Discharge Location: PATIENT EDUCATION INFORMATION Instructions: Abdominal Pain, Adult; Flank Pain, Adult Follow up: With: Address: When: Follow up with primary care provider Within 2 to 3 days Comments: Call for follow up appointment. Return to ER for new or worsening symptoms as discussed, especially fever, new or worsening flank or abdominal pain, persistnet vomiting, difficulty breathing. Comment: documented in this encounter Plan of Treatment Not on file documented as of this encounter Visit Diagnoses Not on filedocumented in this encounter Care Teams Nonprofit Fundraiser Relationship Specialty Start Date End Date Alan Beyer MD [address] [place] [address] PCP - General Family Medicine 06/08/23 documented as of this encounter
--- OUTSIDE RECORDS SUMMARY | 2024-11-05 10:19 | XMS_ITS | Encounter Summary ---
Author Organization [employer] Address [address] [place] [address] Care Team Providers Care Insurance Salesperson Name Role Phone Alan Beyer MD Primary Care Provider [phone] Encounter Details Date Type Department Care Team (Late st Contact Info) Description 08/19/2021 Transcribed Document [facility] [place] [facility] [address] ProviderJessenia MD [address] [place], [place] [id number] Social History Tobacco Use Types Packs/Day Years [...] Alvarez MD - 08/19/2021 7:21 PM CDT ED Assessment Entered On: 08/19/2021 22:36 EDT Performed On: 08/19/2021 20:00 EDT by MITCH CRANE RN ED Quick Look Assessment Level of Consciousness : Alert, Awake Affect/Behavior : Appropriate, Calm, Cooperative Orientation : Oriented x 4 Skin Description : Dry, [place] MITCH CRANE RN - 08/19/2021 22:35 EDT ED General-Functional Assess Information Obtained From : Patient Preferred Communication Mode : Verbal Communication Barrier : None Primary Language : Nigerien Any Spiritual/Cultural Needs or Requests : No Currently in Unsafe Situation : No MITCH CRANE RN - 08/19/2021 22:35 EDT Social Habits Smoking Status : 4 or less cigarettes(less than 1/4 pack)/day in last 30 days Smokeless Tobacco Status : Never Desires Tobacco Cessation Medication : No Reason for No Tobacco Cessation Medication : Refuses FDA approved medications Desires Tobacco Cessation Calc : 1 MITCH CRANE RN - 08/19/2021 22:35 EDT Social History (As Of: 08/19/2021 22:36:54 EDT) Tobacco: 4 or less cigarettes(less than [...] Monthly. (Last Updated: 07/13/2021 14:43:49 EST by Mratita Skinner RN-PATIENT CARE BEDSIDE NON-EXEMPT) Substance Abuse: Drug Use Hx: No. Use in Last 12 Months: No. (Last Updated: 07/26/2015 22:29:17 EDT by ERICKA ISSA RN) Drug Use Hx: No. Use in Last 12 Months: No. (Last Updated: 05/24/2018 10:39:04 EST by Breanna Ivey, ELVER) Nutrition/Health: Regular (Last Updated: 05/24/2018 10:39:04 EST by Breanna Ivey, ELVER) Gastrointestinal ED Gastrointestinal Assessment WDL : WDL with exceptions Gastrointestinal Symptoms : Abdominal pain (Comment: patient is having Left sided abdominal pain that started last night [MITCH CRANE RN - 08/19/2021 22:35 EDT] ) MITCH CRANE RN - 08/19/2021 22:35 EDT Bowel Sounds Bowel Sounds All Quadrants : Active LLQ : Active LUQ : Active RLQ : Active RUQ : Active MITCH CRANE RN - 08/19/2021 22:35 EDT Electronically signed by [facility], [facility] Conversion Crotch Piece Baster Cerner at 08/31/2022 5:09 PM CDT documented in this encounter Plan of Treatment Not on file documented as of this encounter Visit Diagnoses Not on filedocumented in this encounter Care Teams Insurance Salesperson Relationship Specialty Start Date End Date Alan Beyer MD [address] [place] [address] PCP - General Family Medicine 06/08/23 documented as of this encounter
--- OUTSIDE RECORDS SUMMARY | 2024-11-05 10:19 | XMS_ITS | Encounter Summary ---
Author Organization [employer] Address [address] [place] [address] Care Team Providers Care Carding Utility Tender Name Role Phone Alan Beyer MD Primary Care Provider [phone] Encounter Details Date Type Department Care Team (Late st Contact Info) Description 09/27/2020 Transcribed Document [facility] [address] [place] [address] Yomi Harvey MD [address] [place] [address] Dept. [place] [address] Social History Tobacco Use Types Packs/Day Years Used Date Smoking Tobacco: Never Assessed Comments Unknown Sex and Gender Information Value Date Recorded Sex Assigned at Not on file Legal Sex Female 4:28 PM CDT Gender Identity Not on file Sexual Orientation Not on file documented as of this encounter Miscellaneous Notes * Cerner Conversion Note - Yomi Harvey MD - 09/27/2020 8:37 PM EDT Electronically signed by [facility] Conversion Welding Inspector Cerner at 08/31/2022 5:03 PM CDT documented in this encounter Plan of Treatment Not on file documented as of this encounter Visit Diagnoses Not on filedocumented in this encounter Care Teams Carding Utility Tender Relationship Specialty Start Date End Date Alan Beyer MD [address] [place] [address] PCP - General Family Medicine 06/08/23 documented as of this encounter
--- OUTSIDE RECORDS SUMMARY | 2024-11-05 10:19 | XMS_ITS | Encounter Summary ---
Author Organization [employer] Address [address] [place] [address] Care Team Providers Care Vp Of Digital Marketing Name Role Phone Alan Beyer MD Primary Care Provider [phone] Encounter Details Date Type Department Care Team (Late st Contact Info) Description 07/15/2021 Transcribed Document [facility] [place] Family Medicine [facility] [address] ProviderJessenia MD [address] [place], [place] [id number] Social History Tobacco Use Types Packs/Day Years Used Date Smoking Tobacco: Never Assessed Comments Unknown Sex and Gender Information Value Date Recorded Sex Assigned at Not on file Legal Sex Female 4:28 PM CDT Gender Identity Not on file Sexual Orientation Not on file documented as of this encounter Miscellaneous Notes * Cerner Conversion Note - Jessenia Alvarez MD - 07/15/2021 3:46 PM SAFETY RELIEF VALVE TECHNICIAN ED Discharge Entered On: 07/15/2021 15:46 EST Performed On: 07/15/2021 15:46 EST by Suyapa Anglin RN-PATIENT CARE BEDSIDE NON-EXEMPT Discharge Process Patient Disposition : Discharge Personal Belongings With Patient : Yes Patient Education Completed : Yes Teaching Evaluation : Verbalizes understanding IV Discontinued : Yes Nursing Documentation Completed : Yes Suyapa Anglin RN-PATIENT CARE BEDSIDE NON-EXEMPT - 07/15/2021 15:46 EST ED Discharge Discharge To : Home with ambulatory/outpatient follow-up Mode Of Departure : Ambulatory Accompanied By : Unaccompanied Discharge Instructions Reviewed With, Opportunity For Questions Given : Patient Derrek, Suyapa H, RN-PATIENT CARE BEDSIDE NON-EXEMPT - 07/15/2021 15:46 EST Electronically signed by [facility], [facility] Conversion Wax Cutter Cerner at 08/31/2022 5:22 PM CDT documented in this encounter Plan of Treatment Not on file documented as of this encounter Visit Diagnoses Not on filedocumented in this encounter Care Teams Vp Of Digital Marketing Relationship Specialty Start Date End Date Alan Beyer MD [address] [place] [address] PCP - General Family Medicine 06/08/23 documented as of this encounter
--- OUTSIDE RECORDS SUMMARY | 2024-11-05 10:19 | XMS_ITS | Encounter Summary ---
Author Organization [employer] Address [address] [place] [address] Care Team Providers Care Securities Lending Trader Name Role Phone Alan Beyer MD Primary Care Provider [phone] Encounter Details Date Type Department Care Team (Late st Contact Info) Description 07/15/2021 Transcribed Document [facility] [place] Family Medicine [facility] [place] [address] ProviderJessenia MD [address] [place] [id number] Social History Tobacco Use Types Packs/Day Years Used Date Smoking Tobacco: Never Assessed Comments Unknown Sex and Gender Information Value Date Recorded Sex Assigned at Not on file Legal Sex Female 4:28 PM CDT Gender Identity Not on file Sexual Orientation Not on file documented as of this encounter Miscellaneous Notes * Cerner Conversion Note - Jessenia Alvarez MD - 07/15/2021 1:22 PM IMPORTER OR EXPORTER Patient: CHARLINE BOND Age: 40 years Sex: Female : 1980 Associated Diagnoses: Chest pain Author: GIANCARLO HALEY MD-EMR Basic Information Time seen: Date & time 07/15/2021 13:09:00. History source: Patient. Arrival mode: Private vehicle, walking. History limitation: None. Additional information: Chief Complaint from Nursing Triage Note : Chief Complaint 07/15/2021 12:43 EST Chief Complaint Pt c/o CP x2 hr that radiates to the left jaw. Seen here Sunday for the same complaint . History of Present Illness The patient presents with chest pain. The onset was 2 hours ago. The course/duration of symptoms is constant. Location: Left anterior chest. Radiating pain: jaw. The character of symptoms is Pain. The degree at onset was minimal. The degree at maximum was moderate. The degree at present is moderate. The exacerbating factor is none. The relieving factor is none. Risk factors consist of family history of coronary artery disease. Associated symptoms: nausea, denies shortness of breath, denies vomiting, denies diaphoresis, denies anxiety and denies palpitations. Patient complaint of started having chest pain about 2 hours ago, while at rest, patient described pain as sharp, moderate, points to the whole anterior chest, radiates to her left jaw, complaint of nausea, no shortness of breath, no sweating, patient was in our emergency department 2 days ago for similar pain, her cardiac enzymes were negative, she was seen by cardiology, they recommended outpatient follow-up, patient has not called the cardiology, patient said t her dad age of 45 from coronary artery disease, sister had a heart attack at the age of 42 patient has never seen a early learning teacher, or had any cardiac work-up done, patient has been to the emergency room several times with chest pain, abdominal pain, etc. with multiple CTAs, and CT abdomens most of them were negative, patient has a long list of allergies only pain medication she can take is Dilaudid, patient has history of anxiety, migraine, patient takes Klonopin, no recent travel or surgery. Review of Systems Constitutional symptoms: No fever, no chills, no decreased activity. Skin symptoms: No rash, Eye symptoms: No discharge, ENMT symptoms: No nasal congestion, Respiratory symptoms: No shortness of breath, no cough. Cardiovascular symptoms: No diaphoresis, no peripheral edema. Gastrointestinal symptoms: Nausea, no abdominal pain, no vomiting. Genitourinary symptoms: No dysuria, Musculoskeletal symptoms: No back pain, no Joint pain. Neurologic symptoms: No headache, no dizziness, no altered level of consciousness, no numbness, no tingling, no weakness. Psychiatric symptoms: Anxiety. Endocrine symptoms: No polyuria, Hematologic/Lymphatic symptoms: Bleeding tendency negative, Allergy/immunologic symptoms: No seasonal allergies, Additional review of systems information: No recent travel or surgery. No Abx recently. No change in meds recently No history of trauma or injury Denies IVDA . Health Status Allergies: Allergic Reactions (Selected) Severe [...] reactions were documented.. Medications: (Selected) Prescriptions Prescribed Diovan 80 mg oral tablet: [...] omeprazole: 40 mg, Oral, Daily, 0 Refill(s). Immunizations: Per nurse's notes. Menstrual history: Hysterectomy. Past Medical/ Family/ Social History Medical history Reviewed as documented in chart. Cardiovascular: hypertension. Genitourinary: renal stone. Neurological: migraine. Psychiatric: anxiety. Surgical history: Clavicle ([id number]). Tympanostomy (1628053311). Adenoids ([id number]). shoulder surgery. Gallbladder absent ([id number]). Tubal ligation ([id number]). Hysterectomy ([id number]). Right knee ([id number]). Comments: 05/03/2020 15:32 Jyoti Tilley Rn menisectomy, [...] hysterectomy Shoulder pain, left Thoracic disc herniation , per nurse's notes. Physical Examination Vital Signs Vital Signs/Vital Measures 07/15/2021 12:43 EST Systolic Blood Pressure 149 mmHg HI Diastolic Blood Pressure 98 mmHg HI Temperature Source Tympanic Temperature Mode Fahrenheit Temperature, Fahrenheit 97.9 Deg F Clinical Temperature, C 36.6 Deg C Peripheral Pulse Rate 116 bpm HI Respiratory Rate 21 Breaths/Min HI Oxygen Saturation 98 % Oxygen Therapy Mode Room air . Measurements 07/15/2021 12:43 EST Height Source Estimated Height Entry Format [place] Height/Length, SPANISH (ft) 5 ft Height/Length SPANISH 5 Inch CLINICALHEIGHT 165.1 cm [place] Body Weight 56.59 kg Weight Source, ED Critical estimated dosing weight Weight Entry Format [place] Weight [place] lb 168 lb CLINICALWEIGHT 76.36 kg Body Surface Area (BSA) 1.84 m2 Body Mass Index 28 kg/m2 HI . Oxygen Saturation 07/15/2021 12:43 EST Oxygen Saturation 98 % . General: Alert, [...] normal strength, no tenderness, no swelling, no deformity. Gastrointestinal: Soft, Nontender, Non distended, No organomegaly. Neurological: Alert and oriented to person, place, time, and situation, No focal neurological deficit observed, CN II-XII intact, normal motor observed, normal speech observed, normal coordination observed. Lymphatics: No lymphadenopathy. Psychiatric: Cooperative, appropriate mood & affect, normal judgment. Medical Decision Making Differential Diagnosis: Myocardial infarction, non-ST elevation myocardial infarction, angina, anxiety, gastroesophageal reflux disease, chest wall pain. Documents reviewed: Emergency department nurses' notes. Electrocardiogram: Time 07/15/2021 12:41:00, rate 109, normal sinus rhythm, no ectopy, normal [place] & QRS intervals, EP Interp. Results review: Lab results : Lab Results 07/15/2021 13:32 EST T4 Total 8.0 mcg/mL TSH 0.196 mcInt Units/mL LOW 07/15/2021 13:24 EST Sodium Level 139 mmol/L Potassium Level 3.5 mmol/L Chloride Level 107 mmol/L Carbon Dioxide Level 23 mmol/L Anion Gap 12 Glucose Level 108 mg/dL HI Blood Urea Nitrogen 11 mg/dL Creatinine Level 0.73 mg/dL eGFR >60 mL/min/1.73m2 eGFR NonAfrican >60 mL/min/1.73m2 Bun/Creatinine 15.1 Calcium Level 9.0 mg/dL Protein Total 7.8 Gram/dL Albumin Level 3.6 Gram/dL Globulin 4.2 Gram/dL A/G Ratio 0.9 LOW Bilirubin Total 0.4 mg/dL Alk Phos 77 Units/Liter AST 18 Units/Liter ALT 28 Units/Liter Troponin I High Sensitivity 210.1 pg/mL HI ProBNP 118 pg/mL WBC 5.4 K/uL RBC 3.78 Million/uL LOW Hgb 13.2 Gram/dL Hct 39.5 % MCV 104.5 fL HI MCH 34.9 pg HI MCHC 33.4 Gram/dL Platelet Count 193 K/uL MPV 10.1 fL RDW 12.4 % Neut % 68.2 % Neut # 3.72 K/uL Lymph % 25.7 % Lymph # 1.40 K/uL [place] % 5.0 % [place] # 0.27 K/uL Eos % 0.7 % LOW Eos # 0.04 K/uL Baso % 0.2 % Baso # 0.01 K/uL Slide Review No IG# 0 x10(3)/uL IG% 0 % . Radiology results: Radiology Results (Last 48 hours) [id number] -- 07/15/2021 12:33 CR Chest 1 Vw Portable (07/15/2021 13:58) Result: PORTABLE CHEST 07/15/2021 1:24 PM HISTORY: Mid chest pain.COMPARISON: 07/13/2021.FINDINGS: The heart is normal in size . The mediastinum isunremarkable . The lungs are clear . There is no pneumothorax . Theosseous structures are unremarkable .IMPRESSION: No acute cardiopulmonary process .Images reviewed, interpreted, and dictated by Dr. Rocio Guthrie.Transcribed by John Cortez PA-C.I have personally viewed, interpreted and dictated the examination. Ihave read and agree with the above final transcribed report. . Reexamination/ Reevaluation Time: 07/15/2021 15:13:00 . Course: improving. Assessment: exam unchanged. Notes: Patient was seen by cardiology recommended schedule stress test for July 19 at 1145, with Dr. Mcdonald d/w pt results of the diagnostics done in the ED, discussion with the early learning teacher differential diagnoses of symptoms, advised follow up with PCP/Card. for further evaluation and treatment, return to ER if symptoms worsen, gave specific instructions to return to the Emergency Department.. Impression and Plan Diagnosis Chest pain - Discharge, Emergency medicine, Medical Calls-Consults - 07/15/2021 14:38:00 , FRANCOISE BARRETT, phone call, recommends Will see patient in the Emergency Department. Plan Condition: Stable. Disposition: Discharged Admit/Transfer/Discharge: Discharge (Order): Start: 07/15/2021 15:31 EST, Discharge to: Home. Patient was given the following educational materials: Nonspecific Chest Pain, Adult. Follow up with: MICHAEL HOSKINS Within 2 to 3 days; RAYA MCDONALD 11:45 AM Clerk Of Scales; Return to emergency department Within As needed Return if condition worsens, if you have increased pain, shortness of breath, fever, dizziness, fainting, etc. Keep appointment with the early learning teacher for Monday July 19, 2021 at 11:45 am Take one baby aspirin daily Avoid any exertion lifting etc. . Counseled: Patient, Regarding diagnosis, Regarding diagnostic results, Regarding treatment plan, Regarding prescription, Patient indicated understanding of instructions. Electronically signed by Jannette, Trevon Conversion Senior Mechanical Project Engineer Cerner at 08/31/2022 5:20 PM CDT documented in this encounter Plan of Treatment Not on file documented as of this encounter Visit Diagnoses Not on filedocumented in this encounter Care Teams Securities Lending Trader Relationship Specialty Start Date End Date Alan Beyer MD [address] [place] [address] PCP - General Family Medicine 06/08/23 documented as of this encounter
--- OUTSIDE RECORDS SUMMARY | 2024-11-05 10:19 | XMS_ITS | Encounter Summary ---
Author Organization [employer] Address [address] [place] [address] Care Team Providers Care Drug Abuse Treatment Specialist Name Role Phone Alan Beyer MD Primary Care Provider [phone] Encounter Details Date Type Department Care Team (Late st Contact Info) Description 09/27/2020 Transcribed Document [facility] [address] [place] [address] Yomi Rodríguez MD [address] [place] [address] Dept. of Emergency Medicine [place] [id number] Social History Tobacco Use Types Packs/Day Years Used Date Smoking Tobacco: Never Assessed Comments Unknown Sex and Gender Information Value Date Recorded Sex Assigned at Not on file Legal Sex Female 4:28 PM CDT Gender Identity Not on file Sexual Orientation Not on file documented as of this encounter Miscellaneous Notes * Cerner Conversion Note - Yomi Rodríguez MD - 09/27/2020 6:53 PM EDT Patient: CHARLINE BOND Age: 39 years Sex: Female : 1980 Associated Diagnoses: Chest pain; Costochondral pain Author: YOMI RODRÍGUEZ MD-EMR Basic Information Time seen: Seen in triage at 1750., Abs and initial eval.. History of Present Illness The patient presents with chest pain and Pain left-sided 2 days, no fevers chills no cough no shortness of breath, family history of heart disease no smoking,. The onset was just prior to arrival. The course/duration of symptoms is constant. Radiating pain: arm(s). The character of symptoms is tightness and sharp. The degree at onset was moderate. The degree at present is moderate. There are exacerbating factors including movement and palpation. The relieving factor is nsaids only minor relief taking too much. Review of Systems Additional review of systems information: All other [...] as documented in chart. Surgical history: Clavicle ([id number]). Tympanostomy (8701183010). Adenoids (413443806). shoulder surgery. Gallbladder absent (056052680). Tubal ligation (540520620). Hysterectomy (712644329). Right knee ([id number]). Comments: 05/03/2020 15:32 Jyoti Tilley Rn menisectomy. Family history: Heart attack Father [...] left , per nurse's notes. Physical Examination General: Alert, no acute distress. Vital Signs Oxygen Saturation 09/27/2020 17:47 EDT Oxygen Saturation 98 % . Skin: No rash, normal for ethnicity, Not cyanotic, Head: Normocephalic. Eye: Sclera: not icteric. Cardiovascular: Regular rate and rhythm. Respiratory: Respirations are non-labored. Chest wall: tedner. Back: Nontender. Musculoskeletal: Normal ROM. Genitourinary: No tenderness. Neurological: Alert and oriented to person, place, time, and situation, No focal neurological deficit observed. Psychiatric: Cooperative. Medical Decision Making Documents reviewed: Emergency department nurses' notes, emergency department records. Electrocardiogram: Normal sinus rhythm, No ST changes, no ectopy, normal [place] & QRS intervals, EP Interp. Results review: Lab results : Lab Results 09/27/2020 17:53 EDT D Dimer Quant 182 ng/mL 09/27/2020 17:50 EDT Sodium Level 141 mmol/L Potassium Level 3.4 mmol/L LOW Chloride Level 107 mmol/L Carbon Dioxide Level 23 mmol/L Anion Gap 14 Glucose Level 102 mg/dL Blood Urea Nitrogen 11 mg/dL Creatinine Level 0.74 mg/dL eGFR >60 mL/min/1.73m2 eGFR NonAfrican >60 mL/min/1.73m2 Bun/Creatinine 14.9 Calcium Level 8.6 mg/dL Protein Total 7.8 Gram/dL Albumin Level 4.2 Gram/dL Globulin 3.6 Gram/dL A/G Ratio 1.2 Bilirubin Total 0.3 mg/dL Alk Phos 80 Units/Liter AST 9 Units/Liter ALT 13 Units/Liter Troponin I Ultra <0.015 ng/mL WBC 7.3 K/uL RBC 3.57 Million/uL LOW Hgb 12.1 Gram/dL Hct 36.4 % MCV 102.0 fL HI MCH 33.9 pg HI MCHC 33.2 Gram/dL Platelet Count 233 K/uL MPV 9.7 fL RDW 12.0 % Neut % 52.3 % Neut # 3.83 K/uL Lymph % 37.2 % Lymph # 2.73 K/uL [place] % 5.6 % [place] # 0.41 K/uL Eos % 4.5 % Eos # 0.33 K/uL Baso % 0.3 % Baso # 0.02 K/uL Slide Review No IG# 0 x10(3)/uL IG% 0 % . Chest X-Ray: No acute disease process, interpretation by Emergency Physician. Impression and Plan Diagnosis Chest pain - Discharge, Emergency medicine, Medical Costochondral pain - Discharge, Emergency medicine, Medical Plan Condition: Stable. Disposition: Discharged Pharmacy: [place] [facility] 5 mg-325 mg oral tablet (Prescribe): 1 Tab, Oral, BID, for 2 Day(s), PRN: for pain, 4 Tab, 0 Refill(s) predniSONE 10 mg oral tablet (Prescribe): 3 Tab, Oral, Daily, for 5 Day(s), 15 Tab, 0 Refill(s) Admit/Transfer/Discharge: Discharge (Order): Start: 09/27/2020 19:37 EDT, Discharge to: Home . Patient was given the following educational materials: Chest Wall Pain, Aaqg-ov-Pgep, Costochondritis, Uqlt-zn-Mtbf. Follow up with: REGINALD POWERS Within 2 to 3 days; Follow up with primary care provider Within 2 to 3 days. Counseled: Patient, Regarding diagnosis, Regarding diagnostic results, Regarding treatment plan, Regarding prescription, Patient indicated understanding of instructions. documented in this encounter Plan of Treatment Not on file documented as of this encounter Visit Diagnoses Not on filedocumented in this encounter Care Teams Drug Abuse Treatment Specialist Relationship Specialty Start Date End Date Alan Beyer MD [address] [place] [id number] PCP - General Family Medicine 06/08/23 documented as of this encounter
--- OUTSIDE RECORDS SUMMARY | 2024-11-05 10:19 | XMS_ITS | Encounter Summary ---
Author Organization [employer] Address [address] [place] [address] Care Team Providers Care Industrial Therapist Name Role Phone Alan Beyer MD Primary Care Provider [phone] Encounter Details Date Type Department Care Team (Late st Contact Info) Description 2018 Transcribed Document [facility] [place] [facility] [place] [address] ProviderJessenia MD [address] [place] [id number] Social History Tobacco Use Types Packs/Day Years Used Date Smoking Tobacco: Never Assessed Comments Unknown Sex and Gender Information Value Date Recorded Sex Assigned at Not on file Legal Sex Female 4:28 PM CDT Gender Identity Not on file Sexual Orientation Not on file documented as of this encounter Miscellaneous Notes * Cerner Conversion Note - Jessenia Alvarez MD - 2018 8:16 PM CDT [place] [id number] CHARLINE BOND :1980 Visit Time:2018 Your Visit Summary Your Care Team Admitting Physician - JAVI TRUJILLO MD-EMR Attending Physician - JAVI TRUJILLO MD-EMR Primary Care Physician - JORGE LUIS BUENO NP-[facility] Referring Physician - PRIYA, SELF REFERRED Your Diagnosis Elevated blood pressure reading, Elevated blood pressure reading Knee internal derangement Knee pain, Knee pain Medical Information You may obtain [...] GAMBLE When Within 1 day Where: [address] [facility] [address] [place] [address]- Business (1) Follow Up with JORGE LUIS BUENO When Within 2 to 3 days Where: [address] [place] [address]- Business (1) Allergies Bactrim acetaminophen-oxyCODONE clindamycin Toradol baclofen doxycycline escitalopram fentaNYL lidocaine topical 2% gel meperidine morphine penicillin tetanus immune globulin Immunizations This Visit No Immunizations Found Medications What How Much When Instructions Next Dose New acetaminophen-hydrocodone ([place] 5 mg-325 mg oral tablet) 1 Tablet(s) [...] doing jumping jacks. General instructions ??? Take [id number] and prescription medicines only as told by [...] 02/25/2008 Document Revised: 04/20/2017 Document Reviewed: 04/20/2017 [employer] Interactive Patient Education ?? 2019 [employer] Emergency Awareness and Preventative Care STROKE [...] Assistance with quitting is available by contacting 8-209-STSB-NOW. This is a free resource providing counseling, support, and referral. Or you may contact your personal physician. [employer] Suicide Prevention Lifeline: The National Suicide Prevention [...] was given the opportunity to ask questions. Patient/Customer Relations Specialist Name: Patient/Customer Relations Specialist Signature: Relationship to Patient: Clinician/Hospital Customer Relations Specialist Signature: Please Provide a Telephone Number Where You Can Be Reached: Is it Permissible To Leave a Message? Date: Electronically signed by Jannette, [facility] Conversion Leather Cartridge Belt Maker Cerner at 08/31/2022 5:19 PM CDT documented in this encounter Plan of Treatment Not on file documented as of this encounter Visit Diagnoses Not on filedocumented in this encounter Care Teams Industrial Therapist Relationship Specialty Start Date End Date Alan Beyer MD [address] [facility] [address] PCP - General Family Medicine 06/08/23 documented as of this encounter
--- OUTSIDE RECORDS SUMMARY | 2024-11-05 10:19 | XMS_ITS | Encounter Summary ---
Author Organization [email or web address] Address [address] [place] [address] Care Team Providers Care Psychological Operations Specialist Name Role Phone Alan Beyer MD Primary Care Provider [phone] Encounter Details Date Type Department Care Team (Late st Contact Info) Description 2018 Transcribed Document [facility] [place] Family Medicine [facility] [place] [address] ProviderJessenia MD [address] [place] [address] [phone] Social History Tobacco Use Types Packs/Day Years Used Date Smoking Tobacco: Never Assessed Comments Unknown Sex and Gender Information Value Date Recorded Sex Assigned at Not on file Legal Sex Female 4:28 PM CDT Gender Identity Not on file Sexual Orientation Not on file documented as of this encounter Miscellaneous Notes * Cerner Conversion Note - Jessenia Alvarez MD - 2018 8:23 PM CDT ED Discharge Entered On: 2018 20:24 EDT Performed On: 2018 20:23 EDT by Kalyani Quarles Power System Dispatcher Process Patient Disposition : Discharge Personal Belongings With Patient : Yes Patient Education Completed : Yes Teaching Evaluation : Verbalizes understanding IV Discontinued : Not applicable Nursing Documentation Completed : Yes Kalyani Quarles Rn - 2018 20:23 EDT ED Discharge Vital Signs Peripheral Pulse Rate : 77 bpm Respiratory Rate : 18 Breaths/Min Systolic Blood Pressure : 159 mmHg (HI) Diastolic Blood Pressure : 99 mmHg (HI) Oxygen Saturation : 100 % Oxygen Therapy Mode : Room air Kalyani Quarles Rn - 2018 20:23 EDT ED Discharge Discharge To : Home with ambulatory/outpatient follow-up Mode Of Departure : Ambulatory Accompanied By : Sibling Discharge Instructions Reviewed With, Opportunity For Questions Given : Patient Prescriptions Given to Patient : Lynnette Kalyani Quarles Rn - 2018 20:23 EDT Electronically signed by [facility], [facility] Conversion Spa Experience Coordinator Cerner at 08/31/2022 4:59 PM CDT documented in this encounter Plan of Treatment Not on file documented as of this encounter Visit Diagnoses Not on filedocumented in this encounter Care Teams Psychological Operations Specialist Relationship Specialty Start Date End Date Alan Beyer MD [address] [place] [address] PCP - General Family Medicine 06/08/23 documented as of this encounter
--- OUTSIDE RECORDS SUMMARY | 2024-11-05 10:19 | XMS_ITS | Encounter Summary ---
Author Organization [employer] Address [address] [place] [address] Care Team Providers Care Provider Relations Representative Name Role Phone Alan Beyer MD Primary Care Provider [phone] Encounter Details Date Type Department Care Team (Late st Contact Info) Description 2018 Transcribed Document [facility] [place] Family Medicine [facility] [place] [address] ProviderJessenia MD [address] [place] [address] Social History Tobacco Use Types Packs/Day [...] Alvarez MD - 2018 8:18 PM CDT [place] [id number] CHARLINE BOND :1980 Visit Time:2018 Your Visit Summary Your Care Team Admitting Physician - JAVI TRUJILLO MD-EMR Attending Physician - JAVI TRUJILLO MD-EMR Primary Care Physician - JORGE LUIS BUENO NP-[facility] Referring Physician - PRIYA, SELF REFERRED Your [...] GAMBLE When Within 1 day Where: [address] [facility] [address] [place] [address]- Business (1) Follow Up with JORGE LUIS BUENO When Within 2 to 3 days Where: [address] [place] [address]- Business (1) Allergies Bactrim acetaminophen-oxyCODONE clindamycin Toradol baclofen doxycycline escitalopram fentaNYL lidocaine topical 2% gel meperidine morphine penicillin tetanus immune globulin Immunizations This Visit No Immunizations Found Medications What How Much When Instructions Next Dose The home medications listed are only as [...] doing jumping jacks. General instructions ??? Take xzfx-ddi-[id number] and prescription medicines only as told by [...] 02/25/2008 Document Revised: 04/20/2017 Document Reviewed: 04/20/2017 Elsevier Interactive Patient Education ?? 2019 [employer] Emergency Awareness and Preventative Care STROKE [...] Assistance with quitting is available by contacting 0-008-ILYS-NOW. This is a free resource providing counseling, support, and referral. Or you may contact your personal physician. Email Data Source Suicide Prevention Lifeline: The National Suicide Prevention [...] was given the opportunity to ask questions. Patient/Grounds Crew Supervisor Name: Patient/Grounds Crew Supervisor Signature: Relationship to Patient: Clinician/Hospital Grounds Crew Supervisor Signature: Please Provide a Telephone Number Where You Can Be Reached: Is it Permissible To Leave a Message? Date: Electronically signed by Jannette, [facility] Conversion Produce Runner Cerner at 08/31/2022 5:18 PM CDT documented in this encounter Plan of Treatment Not on file documented as of this encounter Visit Diagnoses Not on filedocumented in this encounter Care Teams Provider Relations Representative Relationship Specialty Start Date End Date Alan Beyer MD [address] [place] [address] PCP - General Family Medicine 06/08/23 documented as of this encounter
--- OUTSIDE RECORDS SUMMARY | 2024-11-05 10:19 | XMS_ITS | Encounter Summary ---
Author Organization [employer] Address [address] [place] [address] Care Team Providers Care Case Consultant Name Role Phone Alan Beyer MD Primary Care Provider [phone] Encounter Details Date Type Department Care Team (Late st Contact Info) Description 09/14/2021 Transcribed Document [facility] [place] Family Medicine [facility] [place] [address] ProviderJessenia MD [address] [place], [place] [phone] Social History Tobacco Use Types Packs/Day Years Used Date Smoking Tobacco: Never Assessed Comments Unknown Sex and Gender Information Value Date Recorded Sex Assigned at Not on file Legal Sex Female 4:28 PM CDT Gender Identity Not on file Sexual Orientation Not on file documented as of this encounter Miscellaneous Notes * Cerner Conversion Note - Jessenia Alvarez MD - 09/14/2021 3:10 PM CDT Vital Signs ED Entered On: 09/14/2021 15:58 EDT Performed On: 09/14/2021 15:56 EDT by VANDANA KHALIL RN-PATIENT CARE BEDSIDE NON-EXEMPT Vital Signs ED Temperature Mode : Fahrenheit Systolic Blood Pressure, Supine : 155 mmHg Diastolic Blood Pressure, Supine : 93 mmHg Systolic B/P, Sitting : 154 mmHg Diastolic B/P, Sitting : 101 mmHg Systolic Blood Pressure, Standing : 145 mmHg Diastolic Blood Pressure, Standing : 100 mmHg VANDANA KHALIL RN-PATIENT CARE BEDSIDE NON-EXEMPT - 09/14/2021 15:56 EDT documented in this encounter Plan of Treatment Not on file documented as of this encounter Visit Diagnoses Not on filedocumented in this encounter Care Teams Case Consultant Relationship Specialty Start Date End Date Alan Beyer MD [address] [place] [address] PCP - General Family Medicine 06/08/23 documented as of this encounter
--- OUTSIDE RECORDS SUMMARY | 2024-11-05 10:19 | XMS_ITS | Encounter Summary ---
Author Organization [employer] Address [address] [place] [address] Care Team Providers Care Health Science Specialist Name Role Phone Alan Beyer MD Primary Care Provider [phone] Encounter Details Date Type Department Care Team (Late st Contact Info) Description [address] [facility] [place] Family [place] [place] [address] ProviderJessenia MD [address] [place] [address] [id number] Social History Tobacco Use Types Packs/Day Years [...] MD - 2018 5:52 PM CDT ED Assessment Entered On: 2018 19:07 EDT Performed On: 2018 19:06 EDT by GUSTAVO LUNSFORD, DEAN OF BOYS General-Functional Assess Information Obtained From : Patient Preferred Communication Mode : Verbal Communication Barrier : None Primary Language : Lao Any Spiritual/Cultural Needs or Requests : No Currently in Unsafe Situation : No GUSTAVO LUNSFORD RN - 2018 19:06 EDT Social Habits Smoking Status : 10 or more cigarettes (1/2 pack or more)/day in last 30 days Smokeless Tobacco Status : Never Desires Tobacco Cessation Medication : No Reason for No Tobacco Cessation Medication : Refuses FDA approved medications Desires Tobacco Cessation Calc : 1 GUSTAVO LUNSFORD RN - 2018 19:06 EDT Social History (As Of: 2018 19:07:48 EDT) Tobacco: 10 or more cigarettes (1/2 pack or more)/day in last 30 days Smoking Status. Never Smokeless Tobacco Status. (Last Updated: 12/16/2017 15:18:02 EDT by SHAMA CASTILLO, Elver) 10 or more cigarettes (1/2 pack or more)/day in last 30 days Smoking Status. Refused tobacco status screen Smokeless Tobacco Status. None Smokeless Tobacco Use History. Years of Use: 17. (Last Updated: 05/24/2018 10:39:04 EST by Breanna Ivey Rn) Alcohol: Alcohol Use History No. (Last Updated: 07/26/2015 22:29:17 EDT by ERICKA ISSA, ELVER) Alcohol Use History No. (Last Updated: 05/24/2018 [...] 05/24/2018 10:39:04 EST by Breanna Ivey Rn) Musculoskeletal Musculoskeletal Assessment WDL : WDL with exceptions Musculoskeletal Assessment Comment : rt knee pain this day after stepping down out of work van, pos neuro sensation. pwd resp even nonlabored GUSTAVO LUNSFORD, ELVER - 2018 19:06 EDT Electronically signed by Jannette [facility] Conversion Issue Clerk Cerner at 08/31/2022 5:22 PM CDT documented in this encounter Plan of Treatment Not on file documented as of this encounter Visit Diagnoses Not on filedocumented in this encounter Care Teams Health Science Specialist Relationship Specialty Start Date End Date Alan Beyer MD [address] [place] [address] PCP - General Family Medicine 06/08/23 documented as of this encounter
--- OUTSIDE RECORDS SUMMARY | 2024-11-05 10:19 | XMS_ITS | Encounter Summary ---
Author Organization [employer] Address [address] [place] [address] Care Team Providers Care Golf Club Repairer Name Role Phone Alan Beyer MD Primary Care Provider [phone] Encounter Details Date Type Department Care Team (Late st Contact Info) Description 09/27/2020 Transcribed Document [facility] [place] [facility] [place] [address] ProviderJessenia MD [address] [place], [place] [phone] Social History Tobacco Use Types Packs/Day Years Used Date Smoking Tobacco: Never Assessed Comments Unknown Sex and Gender Information Value Date Recorded Sex Assigned at Not on file Legal Sex Female 4:28 PM CDT Gender Identity Not on file Sexual Orientation Not on file documented as of this encounter Miscellaneous Notes * Cerner Conversion Note - Jessenia Alvarez MD - 09/27/2020 7:48 PM CDT ED Discharge Entered On: 09/27/2020 19:48 EDT Performed On: 09/27/2020 19:48 EDT by Justin Montes Grounds/Maintenance Specialist Process Patient Disposition : Discharge Personal Belongings With Patient : Yes Patient Education Completed : Yes Teaching Evaluation : Verbalizes understanding IV Discontinued : Not applicable Nursing Documentation Completed : Yes Justin Montes Rn - 09/27/2020 19:48 EDT ED Discharge Discharge To : Home with ambulatory/outpatient follow-up Mode Of Departure : Private vehicle Accompanied By : Unaccompanied Discharge Instructions Reviewed With, Opportunity For Questions Given : Patient Prescriptions Given to Patient : Electronically sent Number of Prescriptions Given : 2 Justin Montes Rn - 09/27/2020 19:48 EDT documented in this encounter Plan of Treatment Not on file documented as of this encounter Visit Diagnoses Not on filedocumented in this encounter Care Teams Golf Club Repairer Relationship Specialty Start Date End Date Alan Beyer MD [address] [place] [address] PCP - General Family Medicine 06/08/23 documented as of this encounter
--- OUTSIDE RECORDS SUMMARY | 2024-11-05 10:19 | XMS_ITS | Encounter Summary ---
Author Organization [employer] Address [address] [place] [address] Care Team Providers Care Ice Cream Vendor Name Role Phone Alan Beyer MD Primary Care Provider [phone] Encounter Details Date Type Department Care Team (Late st Contact Info) Description 10/17/2020 Transcribed Document [facility] [place] [address] [place] [address] ProviderJessenia MD [address] [place] [address] Social History Tobacco Use Types Packs/Day Years Used Date Smoking Tobacco: Never Assessed Comments Unknown Sex and Gender Information Value Date Recorded Sex Assigned at Not on file Legal Sex Female 4:28 PM CDT Gender Identity Not on file Sexual Orientation Not on file documented as of this encounter Miscellaneous Notes * Cerner Conversion Note - Jessenia Alvarez MD - 10/17/2020 5:00 PM CDT Pain Assessment Entered On: 10/17/2020 18:53 EDT Performed On: 10/17/2020 18:50 EDT by Oksana Rodriguez RN Intervention Information: HYDROmorphone Performed by PASCUAL HANKINS on 10/17/2020 17:25:00 EDT HYDROmorphone,0.5mg IV Push,Peripheral Line 1 Pain Assessment Pain Assessment : Follow-up assessment Pain Scale Used : 0-10 Scale Location : Flank, right Onset : Abrupt Oksana Rodriguez RN - 10/17/2020 18:50 EDT Pain Scale Intensity : 7 Oksana Rodriguez RN - 10/17/2020 18:50 EDT Image 4 - Images currently included in the form version of this document have not been included in the text rendition version of the form. documented in this encounter Plan of Treatment Not on file documented as of this encounter Visit Diagnoses Not on filedocumented in this encounter Care Teams Ice Cream Vendor Relationship Specialty Start Date End Date Alan Beyer MD [address] [place] [address] PCP - General Family Medicine 06/08/23 documented as of this encounter
--- OUTSIDE RECORDS SUMMARY | 2024-11-05 10:19 | XMS_ITS | Encounter Summary ---
Author Organization [employer] Address [address] [place] [address] Care Team Providers Care Commercial Loan Coordinator Name Role Phone Alan Beyer MD Primary Care Provider [phone] Encounter Details Date Type Department Care Team (Late st Contact Info) Description 12/14/2018 Transcribed Document [facility] [place] [address] ProviderJessenia MD [address] [place], [place] [phone] Social History Tobacco Use Types Packs/Day Years Used Date Smoking Tobacco: Never Assessed Comments Unknown Sex and Gender Information Value Date Recorded Sex Assigned at Not on file Legal Sex Female 4:28 PM CDT Gender Identity Not on file Sexual Orientation Not on file documented as of this encounter Miscellaneous Notes * Cerner Conversion Note - Jessenia Alvarez MD - 12/14/2018 10:34 AM CDT ED Assessment Entered On: 12/14/2018 11:01 EDT Performed On: 12/14/2018 11:00 EDT by MARYSE TAVERAS RN ED Quick Look Assessment Level of Consciousness : Alert, Awake Affect/Behavior : Appropriate Orientation : Oriented x 4 Skin Color : Other: wnl Skin Temperature : Warm Skin Description : Dry MARYSE TAVERAS RN - 12/14/2018 11:00 EDT ED General-Functional Assess Information Obtained From : Patient Preferred Communication Mode : Verbal Communication Barrier : None Primary Language : Moroccan Any Spiritual/Cultural Needs or Requests : No Currently in Unsafe Situation : No MARYSE TAVERAS RN - 12/14/2018 11:00 EDT Social Habits Smoking Status : 10 or more cigarettes (1/2 pack or more)/day in last 30 days Smokeless Tobacco Status : Never Desires Tobacco Cessation Medication : No Reason for No Tobacco Cessation Medication : ED/procedural patient only Desires Tobacco Cessation Calc : 1 MARYSE TAVERAS RN - 12/14/2018 11:00 EDT Social History (As Of: 12/14/2018 11:01:54 EDT) Tobacco: 10 or more cigarettes (1/2 [...] 05/24/2018 10:39:04 EST by Breanna Ivey, Elver) Alcohol: Alcohol Use History No. (Last Updated: 07/26/2015 22:29:17 EDT by ERICKA ISSA, ELVER) Alcohol Use History No. (Last Updated: 05/24/2018 10:39:04 EST by Breanna Ivey, Elver) Substance Abuse: Drug Use Hx: No. Use in Last 12 Months: No. (Last Updated: 07/26/2015 22:29:17 EDT by ERICKA ISSA, ELVER) Drug Use Hx: No. Use in Last 12 Months: No. (Last Updated: 05/24/2018 10:39:04 EST by Breanna Ivey, Elver) Nutrition/Health: Regular (Last Updated: 05/24/2018 10:39:04 EST by Breanna Ivey, Elver) Gastrointestinal ED Gastrointestinal Symptoms : Abdominal pain MARYSE TAVERAS RN - 12/14/2018 11:00 EDT Electronically signed by Trevon Bhatia Conversion Laser Beam Color Scanner Operator Cerner at 08/31/2022 5:14 PM CDT documented in this encounter Plan of Treatment Not on file documented as of this encounter Visit Diagnoses Not on filedocumented in this encounter Care Teams Commercial Loan Coordinator Relationship Specialty Start Date End Date Alan Beyer MD [address] [place] [address] PCP - General Family Medicine 06/08/23 documented as of this encounter
--- OUTSIDE RECORDS SUMMARY | 2024-11-05 10:19 | XMS_ITS | Encounter Summary ---
Author Organization [employer] Address [address] [place] [address] Care Team Providers Care Roll Scale Worker Name Role Phone Alan Beyer MD Primary Care Provider [phone] Encounter Details Date Type Department Care Team (Late st Contact Info) Description 12/14/2018 Transcribed Document [facility] [place] [facility] [place] [address] ProviderJessenia MD [address] [place] [address]251 Social History Tobacco Use Types Packs/Day Years Used Date Smoking Tobacco: Never Assessed Comments Unknown Sex and Gender Information Value Date Recorded Sex Assigned at Not on file Legal Sex Female 4:28 PM CDT Gender Identity Not on file Sexual Orientation Not on file documented as of this encounter Miscellaneous Notes * Cerner Conversion Note - Jessenia Alvarez MD - 12/14/2018 1:20 PM CDT ED Discharge Entered On: 12/14/2018 13:23 EDT Performed On: 12/14/2018 13:20 EDT by MARYSE TAVERAS RN Discharge Process Patient Disposition : Discharge Personal Belongings With Patient : Yes Patient Education Completed : Yes Teaching Evaluation : Verbalizes understanding Link to Valuables and Belongings form : No IV Discontinued : Yes Nursing Documentation Completed : Yes MARYSE TAVERAS RN - 12/14/2018 13:22 EDT ED Discharge Discharge To : Home with ambulatory/outpatient follow-up Mode Of Departure : Ambulatory, Other: dc home [address] Accompanied By : Responsible adult Discharge Instructions Reviewed With, Opportunity For Questions Given : Patient Prescriptions Given to Patient : Yes MARYSE TAVERAS RN - 12/14/2018 13:22 EDT Electronically signed by Jannette [facility] Conversion Mud Trucker Cerner at 08/31/2022 5:15 PM CDT documented in this encounter Plan of Treatment Not on file documented as of this encounter Visit Diagnoses Not on filedocumented in this encounter Care Teams Roll Scale Worker Relationship Specialty Start Date End Date Alan Beyer MD [address] [place] [address] PCP - General Family Medicine 06/08/23 documented as of this encounter
--- OUTSIDE RECORDS SUMMARY | 2024-11-05 10:19 | XMS_ITS | Encounter Summary ---
Author Organization [employer] Address [address] [place] [address] Care Team Providers Care It Systems Analyst Consultant Name Role Phone Alan Beyer MD Primary Care Provider [phone] Encounter Details Date Type Department Care Team (Late st Contact Info) Description 09/27/2020 Transcribed Document [facility] [place] Family Medicine [facility] [address] ProviderJessenia MD [address] [place] [address] Social History Tobacco Use Types Packs/Day Years Used Date Smoking Tobacco: Never Assessed Comments Unknown Sex and Gender Information Value Date Recorded Sex Assigned at Not on file Legal Sex Female 4:28 PM CDT Gender Identity Not on file Sexual Orientation Not on file documented as of this encounter Miscellaneous Notes * Cerner Conversion Note - Jessenia ProviderMD - 09/27/2020 5:45 PM CDT Broset Violence Assessment Entered On: 09/27/2020 18:35 EDT Performed On: 09/27/2020 18:35 EDT by TIFFANY VELEZ, RN Broset Violence Assessment Broset Violence Checklist of Symptoms : None Broset Violence Symptoms Subtotal : 0 Broset Violence Symptoms Indicator : Low risk (0) TIFFANY VELEZ RN - 09/27/2020 18:35 EDT documented in this encounter Plan of Treatment Not on file documented as of this encounter Visit Diagnoses Not on filedocumented in this encounter Care Teams It Systems Analyst Consultant Relationship Specialty Start Date End Date Alan Beyer MD [address] [place] [address] PCP - General Family Medicine 06/08/23 documented as of this encounter
--- OUTSIDE RECORDS SUMMARY | 2024-11-05 10:19 | XMS_ITS | Encounter Summary ---
Author Organization [employer] Address [address] [place] [address] Care Team Providers Care Fisheries Diver Name Role Phone Alan Beyer MD Primary Care Provider [phone] Encounter Details Date Type Department Care Team (Late st Contact Info) Description 07/15/2021 Transcribed Document [facility] [place] Family Medicine [facility] [place] [address] ProviderJessenia MD [address] [place], [place] [address] Social History Tobacco Use Types Packs/Day Years Used Date Smoking Tobacco: Never Assessed Comments Unknown Sex and Gender Information Value Date Recorded Sex Assigned at Not on file Legal Sex Female 4:28 PM CDT Gender Identity Not on file Sexual Orientation Not on file documented as of this encounter Miscellaneous Notes * Cerner Conversion Note - Jessenia Alvarez MD - 07/15/2021 12:33 PM COAL UNLOADER ED Assessment Entered On: 07/15/2021 13:59 EST Performed On: 07/15/2021 13:58 EST by Suyapa Anglin RN-PATIENT CARE BEDSIDE NON-EXEMPT ED Quick Look Assessment Level of Consciousness : Alert, Awake Affect/Behavior : Appropriate, Calm, Cooperative Orientation : Oriented x 4 Skin Description : Normal for ethnicity Suyapa Anglin RN-PATIENT CARE BEDSIDE NON-EXEMPT - 07/15/2021 13:58 EST ED General-Functional Assess Information Obtained From : Patient Preferred Communication Mode : Verbal Communication Barrier : None Primary Language : Hebrew Any Spiritual/Cultural Needs or Requests : No Currently in Unsafe Situation : No Suyapa Anglin RN-PATIENT CARE BEDSIDE NON-EXEMPT - 07/15/2021 13:58 EST Social Habits Smoking Status : 10 or more cigarettes (1/2 pack or more)/day in last 30 days Smokeless Tobacco Status : Never Desires Tobacco Cessation Medication : No Reason for No Tobacco Cessation Medication : ED/procedural patient only Desires Tobacco Cessation Calc : 1 Suyapa Anglin RN-PATIENT CARE BEDSIDE NON-EXEMPT - 07/15/2021 13:58 EST Social History (As Of: 07/15/2021 13:59:31 EST) Tobacco: 4 or less cigarettes(less than [...] : WDL with exceptions (Comment: pt c/o CP since sunday. was seen here and DC. st not feeling any better. A&Ox4. laying in bed no acute distress noted [Suyapa Anglin, RN-PATIENT CARE BEDSIDE NON-EXEMPT - 07/15/2021 13:58 EST] ) Suyapa Anglin RN-PATIENT CARE BEDSIDE NON-EXEMPT - 07/15/2021 13:58 EST Electronically signed by [facility] Conversion Slurry Tank Tender Cerner at 08/31/2022 5:23 PM CDT documented in this encounter Plan of Treatment Not on file documented as of this encounter Visit Diagnoses Not on filedocumented in this encounter Care Teams Fisheries Diver Relationship Specialty Start Date End Date Alan Beyer MD [address] [place] [address] PCP - General Family Medicine 06/08/23 documented as of this encounter
--- OUTSIDE RECORDS SUMMARY | 2024-11-05 10:19 | XMS_ITS | Encounter Summary ---
Author Organization [employer] Address [address] [place] [address] Care Team Providers Care Millstone Cleaner Name Role Phone Alan Beyer MD Primary Care Provider Encounter Details Date Type Department Care Team (Late st Contact Info) Description 08/19/2021 Transcribed Document [facility] [place] Family [place] [facility] [place] [address] ProviderJessenia MD [address] [place], [place] [id number] Social History Tobacco Use Types Packs/Day Years [...] Alvarez MD - 08/19/2021 7:21 PM CDT Broset Violence Assessment Entered On: 08/19/2021 22:34 EDT Performed On: 08/19/2021 22:34 EDT by MITCH CRANE RN Broset Violence Assessment Broset Violence Checklist of Symptoms : None Broset Violence Symptoms Subtotal : 0 Broset Violence Symptoms Indicator : Low risk (0) MITCH CRANE RN - 08/19/2021 22:34 EDT Electronically signed by Trevon Bhatia Conversion Principal Java Software Engineer Cerner at 08/31/2022 5:09 PM CDT documented in this encounter Plan of Treatment Not on file documented as of this encounter Visit Diagnoses Not on filedocumented in this encounter Care Teams Millstone Cleaner Relationship Specialty Start Date End Date Alan Beyer MD [address] [place] [address] PCP - General Family Medicine 06/08/23 documented as of this encounter
--- OUTSIDE RECORDS SUMMARY | 2024-11-05 10:19 | XMS_ITS | Encounter Summary ---
Author Organization [employer] Address [address] [place] [address] Care Team Providers Care Heading Repairer Name Role Phone Alan Beyer MD Primary Care Provider [phone] Encounter Details Date Type Department Care Team (Late st Contact Info) Description 05/24/2018 Transcribed Document [facility] [place] [address] ProviderJessenia MD [address] [place] [address] Social History Tobacco Use Types Packs/Day Years Used Date Smoking Tobacco: Never Assessed Comments Unknown Sex and Gender Information Value Date Recorded Sex Assigned at Not on file Legal Sex Female 4:28 PM CDT Gender Identity Not on file Sexual Orientation Not on file documented as of this encounter Miscellaneous Notes * Cerner Conversion Note - Jessenia Alvarez MD - 05/24/2018 10:36 AM HIDE STRETCHER HAND PAT Adult Entered On: 05/24/2018 10:43 EST Performed On: 05/24/2018 10:36 EST by Breanna Ivey Rn Vital Measurements Temperature Source : Temporal artery scanning Temperature Mode : Fahrenheit Temperature, Fahrenheit : 97.9 Deg F Clinical Temperature, C : 36.6 Deg C Heart Rate, Apical : 93 bpm Respiratory Rate : 18 Breaths/Min Systolic Blood Pressure : 127 mmHg Diastolic Blood Pressure : 83 mmHg Breanna Ivey Rn - 05/24/2018 10:36 EST Height and Weight, Clinical Dosing Height Source : Stated Height Entry Format : [place] Height, Feet : 5 ft(Converted to: 152 cm, 60 Inch) Height, Inches : 5 Inch(Converted to: 0 ft 5 Inch, 12.70 cm) Clinical Height : 165.1 cm Weight Source : Standing scale Weight Entry Format : [place] Clinical Dosing Weight : 75 kg Weight, Pounds : 165 lb Body Surface Area (BSA) : 1.82 m2 Body Mass Index : 27.5 kg/m2 (HI) [place] Body Weight : 57 kg Breanna Ivey Rn - 05/24/2018 10:36 EST Health Histories Smoking Status : 10 or more cigarettes (1/2 pack or more)/day in last 30 days Smokeless Tobacco Status : Refused tobacco status screen Desires Tobacco Cessation Medication : No Reason for No Tobacco Cessation Medication : Refuses FDA approved medications Breanna Ivey Rn - 05/24/2018 10:36 EST Social History (As Of: 05/24/2018 10:43:35 EST) Tobacco: 10 or more cigarettes (1/2 [...] 05/24/2018 10:39:04 EST by Breanna Ivey Rn) Infectious Disease History Infectious Disease History : Chicken pox/Shingles, Herpes Fever/Chills Last 48 Hours : No Travel To Regions with Travel Advisories : No Travel Outside [place] Within Last 30 Days : No Contact With Traveler to Advisory Region : No Tuberculosis Symptoms : None Breanna Ivey Rn - 05/24/2018 10:36 EST Anesthesia/Transfusion History Family History of Anesthesia Reaction : No prior transfusion(s) Blood Transfusion Acceptable to Patient : Yes Transfusion History : Prior anesthesia reaction Type of Anesthesia Reaction : Excessive nausea/vomiting Family History of Anesthesia Reaction : None Breanna Ivey Rn - 05/24/2018 10:36 EST Functional Assessment Functional ADL Evaluation Index EBN Bathing : Independent (2) Dressing : Independent (2) Toileting : Independent (2) Transferring Bed or Chair : Independent (2) Continence : Independent (2) Feeding : Independent (2) Breanna Ivey Rn - 05/24/2018 10:36 EST ADL Index Score : 12 Breanna Ivey Rn - 05/24/2018 10:36 EST Advance Directive Patient has Advance Directive *Q : No, patient refuses Advance Directive information Breanna Ivey Rn - 05/24/2018 10:36 EST Spiritual/Cultural Needs Any Spiritual/Cultural Needs or Requests : No Breanna Ivey Rn - 05/24/2018 10:36 EST Psychosocial History Do You Have a History of the Following? : Anxiety Currently in Unsafe Situation : No Tried to Harm Yourself in the Past? : No Thoughts of Harming/Killing Yourself : No Breanna Ivey Rn - 05/24/2018 10:36 EST Teaching/Learning Assessment Barriers To Learning : None evident Individuals Taught : Patient Readiness to Learn : Cooperative Breanna Ivey Rn - 05/24/2018 10:36 EST Education Topics, Periop Preadmission Perioperative Education Grid Arrival Time/Place : Verbalizes understanding Infection Control : Verbalizes understanding NPO Status/Directions : Verbalizes understanding Preprocedure Preparations : Verbalizes understanding Preprocedure Tests/Labs : Verbalizes understanding Take/Hold Medications Pre-Procedure : Verbalizes understanding Breanna Ivey Rn - 05/24/2018 10:36 EST General Info Arrived From : Home Want Family/Rep/Phys Notified of Admit : No Emergency Contact #1 : dionne Emergency Contact #1 Emergency Contact #1 Relationship : beau Emergency Contact #2 : bette Emergency Contact #2 Emergency Contact #2 Relationship : beau Primary Language : Norwegian Preferred Communication Mode : Verbal Communication Barrier : None Breanna Ivey Rn - 05/24/2018 10:36 EST Spenser Scale Spenser Sensory Perception : No impairment Spenser Moisture : Rarely moist Spenser Activity : Walks frequently Spenser Mobility : No limitation Spneser Nutrition : Adequate Spenser Friction and Shear : No apparent problem Spenser Score : 22 Breanna Ivey Rn - 05/24/2018 10:36 EST Sleep Apnea Risk Assmt Hx of Obstructive Sleep Apnea Diagnosis : No Snore Loudly : Yes Tired, Fatigued, or Sleepy During Day : No Observed Stopping Breathing During Sleep : No Have/Are Being Treated for Hypertension : No STOP Sleep Apnea Risk Level Score : 1 STOP Sleep Apnea Risk Level : Low BMI Greater Than 35 kg/m2 : No Age over 50 Years Old : No Gender Male : No Neck Circumference Measured (cms) : 0 cm STOP-BANG Sleep Apnea Risk Level Score : 0 Neck Circumference Greater Than 40 cm : No Breanna Ivey Rn - 05/24/2018 10:36 EST documented in this encounter Plan of Treatment Not on file documented as of this encounter Visit Diagnoses Not on filedocumented in this encounter Care Teams Heading Repairer Relationship Specialty Start Date End Date Alan Beyer MD [address] [place] [address] PCP - General Family Medicine 06/08/23 documented as of this encounter
--- OUTSIDE RECORDS SUMMARY | 2024-11-05 10:19 | XMS_ITS | Encounter Summary ---
Author Organization [employer] Address [address] [place] [address] Care Team Providers Care Observation Assistant Name Role Phone Alan Beyer MD Primary Care Provider [phone] Encounter Details Date Type Department Care Team (Late st Contact Info) Description 09/14/2021 Transcribed Document [facility] [place] [facility] [place] [facility] [place] [address] ProviderJessenia MD [address] [place], [place] [address] Social History Tobacco Use Types Packs/Day Years Used Date Smoking Tobacco: Never Assessed Comments Unknown Sex and Gender Information Value Date Recorded Sex Assigned at Not on file Legal Sex Female 4:28 PM CDT Gender Identity Not on file Sexual Orientation Not on file documented as of this encounter Miscellaneous Notes * Cerner Conversion Note - Jessenia Alvarez MD - 09/14/2021 12:35 PM CDT ED Triage Entered On: 09/14/2021 12:47 EDT Performed On: 09/14/2021 12:41 EDT by VANDANA KHALIL RN-PATIENT CARE BEDSIDE NON-EXEMPT ED Triage Across the Room Chief Complaint : Pt reports to ED via EMS for chest pain that radiates down left arm and into back and neck x1 hour. 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 Triage Date/Time : 09/14/2021 12:41 EDT VANDANA KHALIL RN-PATIENT CARE BEDSIDE NON-EXEMPT - 09/14/2021 12:41 EDT DCP GENERIC CODE Tracking Acuity : 3 - Urgent Tracking Group : [facility] VANDANA KHALIL RN-PATIENT CARE BEDSIDE NON-EXEMPT - 09/14/2021 12:41 EDT Mode of Arrival : Stretcher Transported to ED by : Ambulance/ALS EMS Service : [facility] To Room Via : Stretcher Accompanied By : Unaccompanied ED Vital Signs : Document Height & Weight : Document ED Allergies : Document ED Reason for Visit : Document Status : Hysterectomy Tetanus Immunization : Unknown VANDANA KHALIL RN-PATIENT CARE BEDSIDE NON-EXEMPT - 09/14/2021 12:41 EDT Infectious Disease History Does patient have symptoms of COVID-19? : No Tested for COVID19 in the past 14 days : No, Patient stated Does the Patient state known exposure to a COVID-19 positive case in the last 14 days? : No Patient Vaccinated for COVID-19 : Fully vaccinated VANDANA KHALIL RN-PATIENT CARE [facility] NON-EXEMPT - 09/14/2021 12:41 EDT Infectious Disease Risk Screening Grid Cough < 2 wks of unknown origin : NO Cough > 2 weeks : NO Blood in Sputum : NO Fever or self-reported Fever : NO Rash of unknown origin : NO Headache : NO Stiff neck : NO Night Sweats : NO Unexplained Weight Loss : NO Diarrhea (3 episode per day) : NO VANDANA KHALIL RN-PATIENT CARE [facility] NON-EXEMPT - 09/14/2021 12:41 EDT Physical contact outside [place] in the last 30 days : No Hospitalized in Foreign Country : No Infectious Disease History : Chicken pox/Shingles, Herpes, Influenza, Mononucleosis INF Disease TB Screening Calc : 0 INF Disease Recent Travel Calc : 0 VANDANA KHALIL RN-PATIENT CARE [facility] NON-EXEMPT - 09/14/2021 12:41 EDT Vital Signs ED Temperature Source : Oral Temperature Mode : Fahrenheit Temperature, Fahrenheit : 98.3 Deg F Clinical Temperature, C : 36.8 Deg C Oxygen Therapy Mode : Room air Peripheral Pulse Rate : 94 bpm Respiratory Rate : 18 Breaths/Min Systolic Blood Pressure : 184 mmHg (HI) Diastolic Blood Pressure : 108 mmHg (HI) Oxygen Saturation : 99 % VANDANA KHALIL RN-PATIENT CARE [facility] NON-EXEMPT - 09/14/2021 12:41 EDT Allergy (As Of: 09/14/2021 12:47:01 EDT) Allergies (Active) acetaminophen-oxyCODONE Estimated Onset Date: Unspecified ; Comments: Comment 1: throws up and itching ; Created By: Breanna Ivey Rn; Reaction Status: Active ; Category: Drug ; Substance: acetaminophen-oxyCODONE ; Severity: Severe ; Updated By: Breanna Ivey Rn; Source: Patient ; Reviewed Date: 08/19/2021 22:47 EDT baclofen Estimated Onset Date: Unspecified ; Comments: Comment 1: hives and cant breath ; Created By: Breanna Ivey Rn; Reaction Status: Active ; Category: Drug ; Substance: baclofen ; Type: Allergy ; Updated By: Breanna Ivey Rn; Reviewed Date: 08/19/2021 22:47 EDT Bactrim Estimated Onset Date: Unspecified ; Comments: Comment 1: hives not breathing ; Created By: Breanna Ivey Rn; Reaction Status: Active ; Category: Drug ; Substance: Bactrim ; Type: Allergy ; Severity: Severe ; Updated By: Breanna Ivey Rn; Source: Patient ; Reviewed Date: 08/19/2021 22:47 EDT clindamycin Estimated Onset Date: Unspecified ; Comments: Comment 1: Hives, vomiting ; Created By: Talia Eason RN; Reaction Status: Active ; Category: Drug ; Substance: clindamycin ; Type: Allergy ; Severity: Severe ; Updated By: Talia Eason RN; Reviewed Date: 08/19/2021 22:47 EDT doxycycline Estimated Onset Date: Unspecified ; Comments: Comment 1: hives and projectile vomiting ; Created By: Breanna Ivey Rn; Reaction Status: Active ; Category: Drug ; Substance: doxycycline ; Type: Allergy ; Updated By: Breanna Ivey Rn; Reviewed Date: 08/19/2021 22:47 EDT escitalopram Estimated Onset Date: Unspecified ; Comments: Comment 1: unknown ; Created By: Breanna Ivey Rn; Reaction Status: Active ; Category: Drug ; Substance: escitalopram ; Type: Allergy ; Updated By: Breanna Ivey Rn; Reviewed Date: 08/19/2021 22:47 EDT fentaNYL Estimated Onset Date: Unspecified ; Comments: Comment 1: hallucinate and cry ; Created By: Breanna Ivey Rn; Reaction Status: Active ; Category: Drug ; Substance: fentaNYL ; Type: Allergy ; Updated By: Breanna Ivey Rn; Reviewed Date: 08/19/2021 22:47 EDT lidocaine topical 2% gel Estimated Onset Date: Unspecified ; Comments: Comment 1: severe swelling, itching, rash ; Created By: Breanna Ivey Rn; Reaction Status: Active ; Category: Drug ; Substance: lidocaine topical 2% gel ; Type: Allergy ; Updated By: Breanna Ivey Rn; Reviewed Date: 08/19/2021 22:47 EDT meperidine Estimated Onset Date: Unspecified ; Comments: Comment 1: hallucinations and angry ; Created By: Breanna Ivey Rn; Reaction Status: Active ; Category: Drug ; Substance: meperidine ; Type: Allergy ; Updated By: Breanna Ivey Rn; Reviewed Date: 08/19/2021 22:47 EDT morphine Estimated Onset Date: Unspecified ; Comments: Comment 1: severe itching ; Created By: Breanna Ivey Rn; Reaction Status: Active ; Category: Drug ; Substance: morphine ; Type: Allergy ; Updated By: Breanna Ivey Rn; Reviewed Date: 08/19/2021 22:47 EDT penicillin Estimated Onset Date: Unspecified ; Reactions: Hives ; Comments: Comment 1: hives Comment 2: Pt has tolerated cefoxitin in 06/30, 06/01, and trying cefazolin 05/01 ; Created By: JAME ZUNIGA PharmD; Reaction Status: Active ; Category: Drug ; Substance: penicillin ; Type: Allergy ; Updated By: JAME ZUNIGA PharmD; Reviewed Date: 08/19/2021 22:47 EDT tetanus immune globulin Estimated Onset Date: Unspecified ; Comments: Comment 1: adverse reaction I get tetanus and my body will swell up ; Created By: Breanna Ivey Rn; Reaction Status: Active ; Category: Drug ; Substance: tetanus immune globulin ; Type: Allergy ; Updated By: Breanna Ivey Rn; Reviewed Date: 08/19/2021 22:47 EDT Toradol Estimated Onset Date: Unspecified ; Comments: Comment 1: feels like a softball in chest and my chest goes numb ; Created By: Breanna Ivey Rn; Reaction Status: Active ; Category: Drug ; Substance: Toradol ; Type: Allergy ; Updated By: Breanna Ivey Rn; Reviewed Date: 08/19/2021 22:47 EDT Diagnosis Control ED (As Of: 09/14/2021 12:47:01 EDT) Problems(Active) Anxiety (SNOMED CT :06019168 ) Name of Problem: Anxiety ; Recorder: ERICKA ISSA RN; Confirmation: Confirmed ; Classification: Medical ; Code: [id number] ; Contributor System: RoundarchChart ; Last Updated: 07/26/2015 22:28 EDT ; Life Cycle Date: 07/26/2015 ; Life Cycle Status: Active ; Vocabulary: SNOMED CT At risk for sleep apnea (IMO :07551453 ) Name of Problem: At risk for sleep apnea ; Recorder: SYSTEM, SYSTEM; Confirmation: Confirmed ; Classification: Medical ; Code: [id number] ; Last Updated: 07/13/2021 14:49 EST ; Life Cycle Date: 07/13/2021 ; Life Cycle Status: Active ; Vocabulary: IMO Endometriosis, vagina (SNOMED CT :64717132 ) Name of Problem: Endometriosis, vagina ; Recorder: Breanna Ivey RN; Confirmation: Confirmed ; Classification: Medical ; Code: [id number] ; Contributor System: PowerChart ; Last Updated: 05/24/2018 10:54 EST ; Life Cycle Date: 05/24/2018 ; Life Cycle Status: Active ; Vocabulary: SNOMED CT Kidney stones (SNOMED CT :442782999 ) Name of Problem: Kidney stones ; Recorder: KAYY ANDREW; Confirmation: Confirmed ; Classification: Medical ; Code: [id number] ; Contributor System: PowerChart ; Last Updated: 06/06/2016 9:30 EST ; Life Cycle Date: 06/06/2016 ; Life Cycle Status: Active ; Vocabulary: SNOMED CT Migraine (SNOMED CT :00043117 ) Name of Problem: Migraine ; Recorder: ERICKA ISSA RN; Confirmation: Confirmed ; Classification: Medical ; Code: [id number] ; Contributor System: PowerChart ; Last Updated: 07/26/2015 22:28 EDT ; Life Cycle Date: 07/26/2015 ; Life Cycle Status: Active ; Vocabulary: SNOMED CT Multiple drug allergies (SNOMED CT :0880359892 ) Name of Problem: Multiple drug allergies ; Recorder: YOVANA WILKERSON NP-FAM; Confirmation: Confirmed ; Classification: Medical ; Code: [id number] ; Contributor System: PowerChart ; Last Updated: 07/13/2021 15:51 EST ; Life Cycle Date: 07/13/2021 ; Life Cycle Status: Active ; Responsible Provider: YOVANA WILKERSON NP-FAM; Vocabulary: SNOMED CT S/P hysterectomy (SNOMED CT :110162602 ) Name of Problem: S/P hysterectomy ; Recorder: LEONID CASTANEDA RN; Confirmation: Confirmed ; Classification: Medical ; Code: [id number] ; Contributor System: RoundarchChart ; Last Updated: 11/06/2019 20:08 EDT ; Life Cycle Date: 11/06/2019 ; Life Cycle Status: Active ; Vocabulary: SNOMED CT Shoulder pain, left (SNOMED CT :69411054 ) Name of Problem: Shoulder pain, left ; Recorder: Breanna Ivey RN; Confirmation: Confirmed ; Classification: Medical ; Code: 48004022 ; Contributor System: PowerChart ; Last Updated: 05/24/2018 10:53 EST ; Life Cycle Date: 05/24/2018 ; Life Cycle Status: Active ; Vocabulary: SNOMED CT Thoracic disc herniation (SNOMED CT :270214299 ) Name of Problem: Thoracic disc herniation ; Recorder: YOVANA WILKERSON NP-FAM; Confirmation: Confirmed ; Classification: Medical ; Code: [id number] ; Contributor System: RoundarchChart ; Last Updated: 07/13/2021 15:51 EST ; Life Cycle Date: 07/13/2021 ; Life Cycle Status: Active ; Responsible Provider: YOVANA WILKERSON NP-FAM; Vocabulary: SNOMED CT Diagnoses(Active) Chest pain Date: 09/14/2021 ; Diagnosis Type: Reason For Visit ; Confirmation: Complaint of ; Clinical Dx: Chest pain ; Classification: Medical ; Clinical Service: Non-Specified ; Code: PNED ; Probability: 0 ; Diagnosis Code: [id number] Nausea Date: 09/14/2021 ; Diagnosis Type: Reason For Visit ; Confirmation: Complaint of ; Clinical Dx: Nausea ; Classification: Medical ; Clinical Service: Non-Specified ; Code: PNED ; Probability: 0 ; Diagnosis Code: [id number] ED Height and Weight Height Source : Stated Height Entry Format : [place] Height, Feet : 5 ft(Converted to: 152 cm, 60 Inch) Height, Inches : 5 Inch(Converted to: 0 ft 5 Inch, 12.70 cm) Clinical Height : 165.1 cm Weight Source, ED : Stated [place] Body Weight (IBW) : 56.59 kg VANDANA KHALIL RN-PATIENT CARE BEDSIDE NON-EXEMPT - 09/14/2021 12:41 EDT Estimated Weight Type of Weight Measurement Est : [place] Weight, est lb : 170 lb(Converted to: 77 kg) Estimated Clinical Dosing Weight : 77.27 kg VANDANA KHALIL RN-PATIENT CARE BEDSIDE NON-EXEMPT - 09/14/2021 12:41 EDT documented in this encounter Plan of Treatment Not on file documented as of this encounter Visit Diagnoses Not on filedocumented in this encounter Care Teams Observation Assistant Relationship Specialty Start Date End Date Alan Beyer MD [address] [place] [address] PCP - General Family Medicine 06/08/23 documented as of this encounter
--- OUTSIDE RECORDS SUMMARY | 2024-11-05 10:19 | XMS_ITS | Encounter Summary ---
Author Organization [employer] Address [address] [place] [address] Care Team Providers Care Valve Technician Name Role Phone Alan Beyer MD Primary Care Provider [phone] Encounter Details Date Type Department Care Team (Late st Contact Info) Description 07/15/2021 Transcribed Document [facility] [place] [facility] [place] [address] ProviderJessenia MD [address] [place], [place] [address] Social History Tobacco Use Types Packs/Day Years Used Date Smoking Tobacco: Never Assessed Comments Unknown Sex and Gender Information Value Date Recorded Sex Assigned at Not on file Legal Sex Female 4:28 PM CDT Gender Identity Not on file Sexual Orientation Not on file documented as of this encounter Miscellaneous Notes * Cerner Conversion Note - Jessenia Alvarez MD - 07/15/2021 12:33 PM STAB SETTER AND DRILLER [place] Suicide Severity Rating Scale (C-SSRS) Entered On: 07/15/2021 13:59 EST Performed On: 07/15/2021 13:58 EST by Suyapa Anglin RN-PATIENT CARE BEDSIDE NON-EXEMPT [place] Suicide Severity Rating Scale (C-SSRS) CSSRS Past Month Wish to be : No CSSRS Past Month Suicidal Thoughts : No CSSRS Lifetime Suicide Behavior : No Suicide Severity Rating Score : 0 Suicide Severity Rating : No Additional Care Required at this time Suyapa Anglin RN-PATIENT CARE BEDSIDE NON-EXEMPT - 07/15/2021 13:58 EST Electronically signed by Jannette [facility] Conversion Relations Specialist Cerner at 08/31/2022 5:08 PM CDT documented in this encounter Plan of Treatment Not on file documented as of this encounter Visit Diagnoses Not on filedocumented in this encounter Care Teams Valve Technician Relationship Specialty Start Date End Date Alan Beyer MD [address] [place] [address] PCP - General Family Medicine 06/08/23 documented as of this encounter
--- OUTSIDE RECORDS SUMMARY | 2024-11-05 10:19 | XMS_ITS | Encounter Summary ---
Author Organization [employer] Address [address] [place] [address] Care Team Providers Care Compensation And Benefits Advisor Name Role Phone Alan Beyer MD Primary Care Provider [phone] Encounter Details Date Type Department Care Team (Late st Contact Info) Description 12/14/2018 Transcribed Document [facility] [place] [facility] [place] [address] ProviderJessenia MD [address] [place], [place] [id number] Social History Tobacco Use Types Packs/Day Years Used Date Smoking Tobacco: Never Assessed Comments Unknown Sex and Gender Information Value Date Recorded Sex Assigned at Not on file Legal Sex Female 4:28 PM CDT Gender Identity Not on file Sexual Orientation Not on file documented as of this encounter Miscellaneous Notes * Cerner Conversion Note - Jessenia ProviderMD - 12/14/2018 1:03 PM CDT Electronically signed by Jannette [facility] Conversion Inflated Pad Buffer Cerner at 08/31/2022 5:13 PM CDT documented in this encounter Plan of Treatment Not on file documented as of this encounter Visit Diagnoses Not on filedocumented in this encounter Care Teams Compensation And Benefits Advisor Relationship Specialty Start Date End Date Alan Beyer MD [address] [place] [address] PCP - General Family Medicine 06/08/23 documented as of this encounter
--- OUTSIDE RECORDS SUMMARY | 2024-11-05 10:19 | XMS_ITS | Encounter Summary ---
Author Organization [employer] Address [address] [place] [address] Care Team Providers Care Sand Operator Name Role Phone Alan Beyer MD Primary Care Provider [phone] Encounter Details Date Type Department Care Team (Late st Contact Info) Description 12/14/2018 Transcribed Document [facility] Family Medicine [facility] [place] [address] ProviderJessenia MD [address] [place] [address] Social History Tobacco Use Types [...] MD - 12/14/2018 10:34 AM CDT ED Triage Entered On: 12/14/2018 10:54 EDT Performed On: 12/14/2018 10:50 EDT by PASCUAL HANKINS ED Triage Across the Room Triage Date/Time : 12/14/2018 10:50 EDT Chief Complaint : C/o RLQ pain since this am. Hysterectomy May 2018 PASCUAL HANKINS - 12/14/2018 10:50 EDT DCP GENERIC CODE Tracking Acuity : 3 - Urgent Tracking Group : [facility] ED [facility] PASCUAL HANKINS - 12/14/2018 10:50 EDT Mode of Arrival : Ambulatory Transported to ED by : Private vehicle To Room Via : Ambulate Accompanied By : Unaccompanied ED Vital Signs : Document Height & Weight : Document ED Allergies : Document ED Reason for Visit : Document Tetanus Immunization : Unknown PASCUAL HANKINS 12/14/2018 10:50 EDT Infectious Disease History Infectious Disease History : Chicken pox/Shingles, Herpes Fever/Chills Last 48 Hours : No Travel To Regions with Travel Advisories : No Travel Outside [place] Within Last 30 Days : No Contact With Traveler to Advisory Region : No Tuberculosis Symptoms : None PASCUAL HANKINS 12/14/2018 10:50 EDT Vital Signs ED Temperature Source : Tympanic Temperature Mode : Fahrenheit Temperature, Fahrenheit : 98 Deg F Clinical Temperature, C : 36.7 Deg C Peripheral Pulse Rate : 96 bpm Respiratory Rate : 18 Breaths/Min Systolic Blood Pressure : 121 mmHg Diastolic Blood Pressure : 72 mmHg Oxygen Saturation : 100 % PASCUAL HANKINS 12/14/2018 10:50 EDT Allergy (As Of: 12/14/2018 10:54:03 EDT) Allergies (Active) acetaminophen-oxyCODONE Estimated Onset Date: [...] 18:32 EDT Diagnosis Control ED (As Of: 12/14/2018 10:54:03 EDT) Problems(Active) Anxiety (SNOMED CT :63939361 ) Name of Problem: Anxiety ; Recorder: ERICKA ISSA RN; Confirmation: Confirmed ; Classification: Medical ; Code: [id number] ; Contributor System: PowerChart ; Last Updated: 07/26/2015 22:28 EDT ; Life Cycle Date: 07/26/2015 ; Life Cycle Status: Active ; Vocabulary: SNOMED CT Endometriosis, vagina (SNOMED CT :07139090 ) Name of Problem: Endometriosis, vagina ; Recorder: Breanna Ivey Rn; Confirmation: Confirmed ; Classification: Medical ; Code: [id number] ; Contributor System: PowerChart ; Last Updated: 05/24/2018 10:54 EST ; Life Cycle Date: 05/24/2018 ; Life Cycle Status: Active ; Vocabulary: SNOMED CT Kidney stones (SNOMED CT :043319670 ) Name of Problem: Kidney stones ; Recorder: KAYY ANDREW; Confirmation: Confirmed ; Classification: Medical ; Code: [id number] ; Contributor System: PowerChart ; Last Updated: 06/06/2016 9:30 EST ; Life Cycle Date: 06/06/2016 ; Life Cycle Status: Active ; Vocabulary: SNOMED CT Migraine (SNOMED CT :07604220 ) Name of Problem: Migraine ; Recorder: ERICKA ISSA RN; Confirmation: Confirmed ; Classification: Medical ; Code: [id number] ; Contributor System: PowerChart ; Last Updated: 07/26/2015 22:28 EDT ; Life Cycle Date: 07/26/2015 ; Life Cycle Status: Active ; Vocabulary: SNOMED CT Shoulder pain, left (SNOMED CT :77393644 ) Name of Problem: Shoulder pain, left ; Recorder: Breanna Ivey Rn; Confirmation: Confirmed ; Classification: Medical ; Code: [id number] ; Contributor System: Soma ; Last Updated: 05/24/2018 10:53 EST ; Life Cycle Date: 05/24/2018 ; Life Cycle Status: Active ; Vocabulary: SNOMED CT Diagnoses(Active) Abdominal pain Date: 12/14/2018 ; Diagnosis Type: Reason For Visit ; Confirmation: Complaint of ; Clinical Dx: Abdominal pain ; Classification: Medical ; Clinical Service: Emergency medicine ; Code: PNED ; Probability: 0 ; Diagnosis Code: [id number] ED Height and Weight Height Source : Stated Height Entry Format : [place] Height, Feet : 5 ft(Converted to: 152 cm, 60 Inch) Height, Inches : 5 Inch(Converted to: 0 ft 5 Inch, 12.70 cm) Clinical Height : 165.1 cm Weight Source, ED : Critical estimated dosing weight Weight Entry Format : [place] Weight, Pounds : 160 lb Clinical Dosing Weight : 72.73 kg Body Surface Area (BSA) : 1.8 m2 Body Mass Index : 26.7 kg/m2 (HI) [place] Body Weight (IBW) : 56.59 kg PASCUAL HANKINS 12/14/2018 10:50 EDT documented in this encounter Plan of Treatment Not on file documented as of this encounter Visit Diagnoses Not on filedocumented in this encounter Care Teams Sand Operator Relationship Specialty Start Date End Date Alan Beyer MD [address] [place] [address] PCP - General Family Medicine 06/08/23 documented as of this encounter
--- OUTSIDE RECORDS SUMMARY | 2024-11-05 10:20 | XMS_ITS | Encounter Summary ---
Author Organization [employer] Address [address] [place] [address] Care Team Providers Care Cad Detailer Name Role Phone Alan Beyer MD Primary Care Provider [phone] Encounter Details Date Type Department Care Team (Late st Contact Info) Description 10/17/2020 Transcribed Document [facility] [place] [facility] [place] [address] ProviderJessenia MD [address] [place], [place] [address] Social History Tobacco Use Types Packs/Day Years Used Date Smoking Tobacco: Never Assessed Comments Unknown Sex and Gender Information Value Date Recorded Sex Assigned at Not on file Legal Sex Female 4:28 PM CDT Gender Identity Not on file Sexual Orientation Not on file documented as of this encounter Miscellaneous Notes * Cerner Conversion Note - Jessenia ProviderMD - 10/17/2020 6:47 PM CDT Electronically signed by [facility] Conversion Route Delivery Service Driver Cerner at 08/31/2022 5:11 PM CDT documented in this encounter Plan of Treatment Not on file documented as of this encounter Visit Diagnoses Not on filedocumented in this encounter Care Teams Cad Detailer Relationship Specialty Start Date End Date Alan Beyer MD [address] [place] [address] PCP - General Family Medicine 06/08/23 documented as of this encounter
--- OUTSIDE RECORDS SUMMARY | 2024-11-05 10:20 | XMS_ITS | Encounter Summary ---
Author Organization [employer] Address [address] [place] [address] Care Team Providers Care Auto Tech Name Role Phone Alan Beyer MD Primary Care Provider [phone] Encounter Details Date Type Department Care Team (Late st Contact Info) Description 10/17/2020 Transcribed Document [facility] Family Medicine [facility] [place] [address] ProviderJessenia MD [address] [place], [place] [id number] Social History Tobacco Use Types Packs/Day Years [...] Alvarez MD - 10/17/2020 3:05 PM CDT [place] Violence Assessment Entered On: 10/17/2020 18:52 EDT Performed On: 10/17/2020 18:50 EDT by Oksana Rodriguez RN Broset Violence Assessment Broset Violence Checklist of Symptoms : None Broset Violence Symptoms Subtotal : 0 Broset Violence Symptoms Indicator : Low risk (0) Oksana Rodriguez RN - 10/17/2020 18:50 EDT Electronically signed by Jannette [facility] Conversion Blending Technician Cerner at 08/31/2022 5:10 PM CDT documented in this encounter Plan of Treatment Not on file documented as of this encounter Visit Diagnoses Not on filedocumented in this encounter Care Teams Auto Tech Relationship Specialty Start Date End Date Alan Beyer MD [address] [place] [address] PCP - General Family Medicine 06/08/23 documented as of this encounter
--- OUTSIDE RECORDS SUMMARY | 2024-11-05 10:20 | XMS_ITS | Encounter Summary ---
Author Organization [employer] Address [address] [place] [address] Care Team Providers Care Market Master Name Role Phone Alan Beyer MD Primary Care Provider [phone] Encounter Details Date Type Department Care Team (Late st Contact Info) Description 12/23/2020 Transcribed Document [facility] Family Medicine [facility] [address] ProviderJessenia MD [address] [place] [address] Social History Tobacco Use Types Packs/Day Years Used Date Smoking Tobacco: Never Assessed Comments Unknown Sex and Gender Information Value Date Recorded Sex Assigned at Not on file Legal Sex Female 4:28 PM CDT Gender Identity Not on file Sexual Orientation Not on file documented as of this encounter Miscellaneous Notes * Cerner Conversion Note - Jessenia Alvarez MD - 12/23/2020 2:04 PM CDT [place] [id number] CHARLINE BOND :1980 Visit Time:12/23/2020 Your Visit Summary Your Care Team Primary Provider: GROVER MEZA Secondary Provider: Your Diagnosis Body aches BP (high blood pressure) Dehydration Viral illness Medical Information You may obtain [...] When Within 2 to 3 days Comments Take ibuprofen over the counter 2 tabs every 4 hours Drink plenty of fluids. Hot toddies with lemon, tea and honey, are good, and so is chicken soup. Off work for 3 days If you are still sick in 3 days, you should get a repeat covid test Follow Up with RHIANNA MARTIN When Within 2 to 3 days Where: [address] [place] [address]- Business (1) Allergies Bactrim acetaminophen-oxyCODONE clindamycin Toradol baclofen doxycycline escitalopram fentaNYL lidocaine topical 2% gel meperidine morphine penicillin (Hives) tetanus immune globulin Immunizations This Visit No Immunizations Found Medications What How Much When Instructions Next Dose conjugated estrogens (Premarin) Vaginal Weekly cream diclofenac (diclofenac sodium 75 mg oral delayed release tablet) 1 Tablet(s) Oral Two Times A Day Duration: 5 Day(s) fexofenadine (Karine) Oral Every Day ibuprofen 400 Milligram(s) Oral Every 8 Hours as needed for as needed for pain methocarbamol (Robaxin-750 oral tablet) 1 Tablet(s) Oral Every Day ondansetron (Zofran ODT 4 mg oral tablet, disintegrating) 1 Tablet(s) Oral Every 4 Hours as needed for Nausea/Vomiting Duration: 3 Day(s) predniSONE (predniSONE 10 mg oral tablet) 3 Tablet(s) Oral Every Day Duration: 5 Day(s) promethazine (promethazine 25 mg oral tablet) [...] This Visit (last charted value for your 12/23/2020 visit) Microbiology 12/23/2020 9:46 AM SARS-CoV-2 (COVID19 PCR): Negative Education Materials Viral Illness, Adult Viruses [...] Medicines to relieve symptoms. These can include [id number] medicine for pain and fever, medicines for [...] these instructions at home: Medicines ??? Take szur-owe-savwubb and prescription medicines only as told by [...] and water are not available, use hand commercial collections specialist. ??? Avoid close contact with friends and [...] with your health care provider. Document Revised: 04/12/2018 Document Reviewed: 09/08/2016 [employer] Patient Education ?? 2020 [employer]. Emergency Awareness and Preventative Care STROKE is [...] Assistance with quitting is available by contacting 5-716-PXJL-NOW. This is a free resource providing counseling, [...] was given the opportunity to ask questions. Patient/Creative Services Producer Name: Patient/Creative Services Producer Signature: Relationship to Patient: Clinician/Hospital Creative Services Producer Signature: Please Provide a Telephone Number Where You Can Be Reached: Is it Permissible To Leave a Message? Date: Electronically signed by Jannette [facility] Conversion Mastic Sprayer Cerner at 08/31/2022 5:01 PM CDT documented in this encounter Plan of Treatment Not on file documented as of this encounter Visit Diagnoses Not on filedocumented in this encounter Care Teams Market Master Relationship Specialty Start Date End Date Alan Beyer MD [address] [place] [facility] [place] [address] PCP - General Family Medicine 06/08/23 documented as of this encounter
--- OUTSIDE RECORDS SUMMARY | 2024-11-05 10:20 | XMS_ITS | Encounter Summary ---
Author Organization [employer] Address [address] [place] [address] Care Team Providers Care Electrical Line Mechanic Name Role Phone Alan Beyer MD Primary Care Provider [phone] Encounter Details Date Type Department Care Team (Late st Contact Info) Description 09/14/2021 Transcribed Document [facility] Family Medicine [facility] [place] [address] ProviderJessenia MD [address] [place], [place] [address] Social History Tobacco Use Types Packs/Day Years [...] Alvarez MD - 09/14/2021 12:35 PM CDT [place] Suicide Severity Rating Scale (C-SSRS) Entered On: 09/14/2021 13:20 EDT Performed On: 09/14/2021 13:16 EDT by VANDANA KHALIL RN-PATIENT CARE BEDSIDE NON-EXEMPT [place] Suicide Severity Rating Scale (C-SSRS) CSSRS Past Month Wish to be : No CSSRS Past Month Suicidal Thoughts : No CSSRS Lifetime Suicide Behavior : No Suicide Severity Rating Score : 0 Suicide Severity Rating : No Additional Care Required at this time VANDANA KHALIL RN-PATIENT CARE BEDSIDE NON-EXEMPT - 09/14/2021 13:16 EDT documented in this encounter Plan of Treatment Not on file documented as of this encounter Visit Diagnoses Not on filedocumented in this encounter Care Teams Electrical Line Mechanic Relationship Specialty Start Date End Date Alan Beyer MD [address] [place] [address] PCP - General Family Medicine 06/08/23 documented as of this encounter
--- OUTSIDE RECORDS SUMMARY | 2024-11-05 10:20 | XMS_ITS | Encounter Summary ---
Author Organization [employer] Address [address] [place] [address] Care Team Providers Care Manager Water Name Role Phone Alan Beyer MD Primary Care Provider [phone] Encounter Details Date Type Department Care Team (Late st Contact Info) Description 09/14/2021 Transcribed Document [facility] [address] ProviderJessenia MD [address] [place] [id number] Social History Tobacco Use Types Packs/Day Years Used Date Smoking Tobacco: Never Assessed Comments Unknown Sex and Gender Information Value Date Recorded Sex Assigned at Not on file Legal Sex Female 4:28 PM CDT Gender Identity Not on file Sexual Orientation Not on file documented as of this encounter Miscellaneous Notes * Cerner Conversion Note - Jessenia Alvarez MD - 09/14/2021 12:53 PM CDT Patient: CHARLINE BOND Age: 40 years Sex: Female : 1980 Associated Diagnoses: Hypertension; Chest pain Author: GIANCARLO HALEY MD-EMR Basic Information Time seen: Date & time 09/14/2021 12:53:00. History source: Patient. Arrival mode: Private vehicle, walking. History limitation: None. Additional information: Chief Complaint from Nursing Triage Note : Chief Complaint 09/14/2021 12:41 EDT Chief Complaint Pt reports to ED via EMS for chest pain that radiates down left arm and into back and neck x1 hour. 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 . History of Present Illness The patient presents with chest pain. The onset was 1.5 hours ago. The course/duration of symptoms is constant. Location: Anterior central chest. Radiating pain: left arm. The character of symptoms is tightness. The degree at onset was minimal. The degree at maximum was moderate. The degree at present is moderate. The exacerbating factor is none. The relieving factor is none. Risk factors consist of hypertension. Associated symptoms: denies shortness of breath, denies diaphoresis, denies anxiety and denies palpitations. Patient complaining of started having pain in her chest, abdomen in today, points to the midsternal area, pain is squeezing, constant, radiates to her left arm neck, complaint of nausea, no shortness of breath, no fever, patient has history of anxiety, migraines, kidney stone, strong family history of coronary artery disease, patient has multiple ER visits for chest pain in the past, had a stress test done contacted cardiology, about a month and a half ago, which was negative, patient had multiple CTs of her chest which have been negative for PE or dissection. Review of Systems Constitutional symptoms: No fever, no chills, no decreased activity. Skin symptoms: No rash, no pruritus, no pires, no petechiae, no lesion. Eye symptoms: No recent vision problems, no pain, no discharge. ENMT symptoms: No ear pain, no sore throat, no nasal congestion. Respiratory symptoms: No shortness of breath, no cough. Cardiovascular symptoms: No diaphoresis, no peripheral edema. Gastrointestinal symptoms: Nausea, no abdominal pain, no vomiting, no diarrhea. Genitourinary symptoms: No dysuria, no hematuria. Musculoskeletal symptoms: No back pain, no Muscle pain, no Joint pain. Neurologic symptoms: No [...] Neurological: migraine. Psychiatric: anxiety. Surgical history: Clavicle ([id number]). Tympanostomy ([id number]). Adenoids (570333034). shoulder surgery. Gallbladder absent (959708599). Tubal ligation (950878172). Hysterectomy (245941945). Right knee (88324100). Comments: 05/03/2020 15:32 Jyoti Tilley Rn menisectomy, [...] Physical Examination Vital Signs Vital Signs/Vital Measures 09/14/2021 12:41 EDT Systolic Blood Pressure 184 mmHg HI Diastolic Blood Pressure 108 mmHg HI Temperature Source Oral Temperature Mode Fahrenheit Temperature, Fahrenheit 98.3 Deg F Clinical Temperature, C 36.8 Deg C Peripheral Pulse Rate 94 bpm Respiratory Rate 18 Breaths/Min Oxygen Saturation 99 % Oxygen Therapy Mode Room air . Measurements 09/14/2021 12:41 EDT Height Source Stated Height Entry Format [place] Height/Length, INDONESIAN (ft) 5 ft Height/Length INDONESIAN 5 Inch CLINICALHEIGHT 165.1 cm Type of Weight Measurement. [place] Weight, est lb 170 lb Estimated Clinical Dosing Weight 77.27 kg [place] Body Weight 56.59 kg Weight Source, ED Stated . Oxygen Saturation 09/14/2021 12:41 EDT Oxygen Saturation 99 % . General: [...] anxiety, gastroesophageal reflux disease, chest wall pain. Rationale: HEART SCORE HISTORY = Suspicion High =2, Mod=1, Low =0 EKG = Significant ST Depression =2, Non specific Repolarization Abn=1, Normal= 0 AGE= > 65 =2, 45-65 =1, <45=0 RISK FACTORS = High Cholesterol, HTN, DM, Smoking, + FHx, Obesity >3 Risk Factors or Hx of Atherosclerosis =2, 1-2=1, 0=0 TROPONIN= > 3 times normal =2, 1-3 Times =1, Normal=0 LOW RISK = Score 0-3 = 2% risk of MACE at 6 Weeks Moderate RISK = Score 4-6 = 16% HIGH RISK = Score >7 = 65%. Documents reviewed: Emergency department nurses' notes. Electrocardiogram: Time 09/14/2021 12:43:00, rate 96, normal sinus rhythm, no ectopy, normal KS & QRS intervals, EP Interp, Nonspecific ST abnormality. Electrocardiogram: Time 09/14/2021 15:51:00, rate 83, normal sinus rhythm, no ectopy, normal KS & QRS intervals, EP Interp. Results review: Lab results : Lab Results 09/14/2021 14:54 EDT Troponin I High Sensitivity 27.5 pg/mL T4 Total 8.5 mcg/mL TSH 0.606 mcInt Units/mL 09/14/2021 14:30 EDT WBC 7.3 K/uL RBC 3.78 Million/uL LOW Hgb 13.2 Gram/dL Hct 39.4 % MCV 104.2 fL HI MCH 34.9 pg HI MCHC 33.5 Gram/dL Platelet Count 207 K/uL MPV 9.9 fL RDW 12.6 % Neut % 67.2 % Neut # 4.93 K/uL Lymph % 26.6 % Lymph # 1.95 K/uL Iron % 5.0 % Iron # 0.37 K/uL Eos % 0.4 % LOW Eos # 0.03 K/uL LOW Baso % 0.3 % Baso # 0.02 K/uL Slide Review No IG# 0 x10(3)/uL IG% 0 % 09/14/2021 13:02 EDT Sodium Level 139 mmol/L Potassium Level 4.7 mmol/L Chloride Level 108 mmol/L Carbon Dioxide Level 24 mmol/L Anion Gap 12 Glucose Level 101 mg/dL Blood Urea Nitrogen 16 mg/dL Creatinine Level 0.68 mg/dL eGFR >60 mL/min/1.73m2 eGFR NonAfrican >60 mL/min/1.73m2 Bun/Creatinine 23.5 HI Calcium Level 8.8 mg/dL Protein Total 7.4 Gram/dL Albumin Level 3.8 Gram/dL Globulin 3.6 Gram/dL A/G Ratio 1.1 Bilirubin Total 0.3 mg/dL Alk Phos 88 Units/Liter AST 21 Units/Liter ALT 19 Units/Liter Troponin I High Sensitivity 26.8 pg/mL ProBNP 66 pg/mL HCG Serum Quant <1.0 mIU/mL NA . Radiology results: Radiology Results (Last 48 hours) [id number] -- 09/14/2021 12:35 CR Chest 1 Vw Portable (09/14/2021 13:30) Result: PORTABLE CHEST 09/14/2021 1:02 PM HISTORY: Precordial chest pain .COMPARISON: July 15, 2021.FINDINGS: The heart is normal in size . The mediastinum isunremarkable . The lungs are clear . There is no pneumothorax . Theosseous structures are unremarkable .IMPRESSION: No acute cardiopulmonary process .Images reviewed, interpreted, and dictated by Dr. Devin Mendoza.Transcribed by Jeffry Gómez PA-C.I have personally viewed, interpreted and dictated the examination. Ihave read and agree with the above final transcribed report. . Reexamination/ Reevaluation Time: 09/14/2021 14:46:00 . Course: improving. Pain status: decreased. Assessment: exam unchanged. Notes: d/w pt. labs results, discussion with the cardiology, d/d of sx, advised admission to the hospital, pt. feels better, wants to go home. Pt. agreed to stay for repeat Troponin.. Time: 09/14/2021 16:54:00 . Course: improving. Assessment: exam improved, BP is getting better. Notes: d/w pt results of the diagnostics done in the ED, differential diagnoses of symptoms, advised follow up with PCP/cardiology for further evaluation and treatment, return to ER if symptoms worsen, gave specific instructions to return to the Emergency Department.. Impression and Plan Diagnosis Hypertension - Discharge, Emergency medicine, Medical Chest pain - Discharge, Emergency medicine, Medical Calls-Consults - 09/14/2021 13:41:00 , BC TUCKER PA-C, Cardiology, phone call, recommends He said patient had a negative stress test less than 2 months ago, advised to repeat patient's troponin, patient can follow-up outpatient with their office. Plan Condition: Improved, Stable. Disposition: Discharged Admit/Transfer/Discharge: Discharge (Order): Start: 09/14/2021 17:05 EDT, Discharge to: Home. Patient was given the following educational materials: Hypertension, Adult, Nonspecific Chest Pain, Adult. Follow up with: ; HEIDI VILLA Within 2 to 3 days Cardiology; Return to emergency department Within As needed Return if condition worsens, if you have increased pain, shortness of breath, fever, vomiting etc. Follow-up with your primary care physician and elastic attacher overlock for further evaluation and management; Follow up with primary care provider Within 2 to 3 days; [facility] (Find a Doc) Within 2 to 3 days. Counseled: Patient, Family, Regarding diagnosis, Regarding diagnostic results, Regarding treatment plan, Regarding prescription, Patient indicated understanding of instructions. documented in this encounter Plan of Treatment Not on file documented as of this encounter Visit Diagnoses Not on filedocumented in this encounter Care Teams Manager Water Relationship Specialty Start Date End Date Alan Beyer MD [address] [place] [address] PCP - General Family Medicine 06/08/23 documented as of this encounter
--- OUTSIDE RECORDS SUMMARY | 2024-11-05 10:20 | XMS_ITS | Encounter Summary ---
Author Organization [employer] Address [address] [place] [address] Care Team Providers Care Forecast Analyst Name Role Phone Alan Beyer MD Primary Care Provider [phone] Encounter Details Date Type Department Care Team (Late st Contact Info) Description 09/14/2021 Transcribed Document [facility] [place] [facility] [place] [address] ProviderJessenia MD [address] [place], [place] [id number] Social History Tobacco Use Types Packs/Day Years Used Date Smoking Tobacco: Never Assessed Comments Unknown Sex and Gender Information Value Date Recorded Sex Assigned at Not on file Legal Sex Female 4:28 PM CDT Gender Identity Not on file Sexual Orientation Not on file documented as of this encounter Miscellaneous Notes * Cerner Conversion Note - Jessenia ProviderMD - 09/14/2021 5:05 PM CDT Electronically signed by [facility] Conversion Oil Well Services Dispatcher Cerner at 08/31/2022 4:58 PM CDT documented in this encounter Plan of Treatment Not on file documented as of this encounter Visit Diagnoses Not on filedocumented in this encounter Care Teams Forecast Analyst Relationship Specialty Start Date End Date Alan Beyer MD [address] [place] [address] PCP - General Family Medicine 06/08/23 documented as of this encounter
--- OUTSIDE RECORDS SUMMARY | 2024-11-05 10:20 | XMS_ITS | Encounter Summary ---
Author Organization [employer] Address [address] [place] [address] Care Team Providers Care Boom Crane Operator Name Role Phone Alan Beyer MD Primary Care Provider [phone] Encounter Details Date Type Department Care Team (Late st Contact Info) Description 01/06/2019 Transcribed Document [facility] [place] [facility] [place] [address] ProviderJessenia MD [address] [place], [place] [id number] Social History Tobacco Use Types Packs/Day Years Used Date Smoking Tobacco: Never Assessed Comments Unknown Sex and Gender Information Value Date Recorded Sex Assigned at Not on file Legal Sex Female 4:28 PM CDT Gender Identity Not on file Sexual Orientation Not on file documented as of this encounter Miscellaneous Notes * Cerner Conversion Note - Jessenia Alvarez MD - 01/06/2019 1:03 PM CDT Electronically signed by Jannette [facility] Conversion Physician Allergist Immunologist Cerner at 08/31/2022 5:14 PM CDT documented in this encounter Plan of Treatment Not on file documented as of this encounter Visit Diagnoses Not on filedocumented in this encounter Care Teams Boom Crane Operator Relationship Specialty Start Date End Date Alan Beyer MD [address] [place] [address] PCP - General Family Medicine 06/08/23 documented as of this encounter
--- OUTSIDE RECORDS SUMMARY | 2024-11-05 10:20 | XMS_ITS | Encounter Summary ---
Author Organization [employer] Address [address] [place] [address] Care Team Providers Care Transfer Station Attendant Name Role Phone Alan Beyer MD Primary Care Provider [phone] Encounter Details Date Type Department Care Team (Late st Contact Info) Description 01/06/2019 Transcribed Document [facility] [place] [facility] [place] [address] ProviderJessenia MD [address] [place], [place] [id number] Social History Tobacco Use Types Packs/Day Years Used Date Smoking Tobacco: Never Assessed Comments Unknown Sex and Gender Information Value Date Recorded Sex Assigned at Not on file Legal Sex Female 4:28 PM CDT Gender Identity Not on file Sexual Orientation Not on file documented as of this encounter Miscellaneous Notes * Cerner Conversion Note - Jessenia Alvarez MD - 01/06/2019 10:49 AM CDT ED Assessment Entered On: 01/06/2019 12:11 EDT Performed On: 01/06/2019 12:10 EDT by Luis Choudhury Rn ED Quick Look Assessment Level of Consciousness : Alert Affect/Behavior : Appropriate Orientation : Oriented x 4 Skin Temperature : Warm Skin Description : Normal for ethnicity Luis Choudhury Rn - 01/06/2019 12:10 EDT ED General-Functional Assess Information Obtained From : Patient Preferred Communication Mode : Verbal Communication Barrier : None Primary Language : Irish Any Spiritual/Cultural Needs or Requests : No Currently in Unsafe Situation : No Luis Choudhury Rn - 01/06/2019 12:10 EDT Social Habits Smoking Status : 10 or more cigarettes (1/2 pack or more)/day in last 30 days Smokeless Tobacco Status : Refused tobacco status screen Desires Tobacco Cessation Medication : No Reason for No Tobacco Cessation Medication : ED/procedural patient only Desires Tobacco Cessation Calc : 1 Luis Choudhury Rn - 01/06/2019 12:10 EDT Social History (As Of: 01/06/2019 12:11:44 EDT) Tobacco: 10 or more cigarettes (1/2 [...] Updated: 05/24/2018 10:39:04 EST by Breanna Ivey, Polly) Nutrition/Health: Regular (Last Updated: 05/24/2018 10:39:04 EST by Breanna Ivey Rn) Musculoskeletal Musculoskeletal Assessment Comment : Patient sustained knee injury in October- felt a pop this morning. Ambulation with a limp noted. Luis Choudhury Rn - 01/06/2019 12:10 EDT documented in this encounter Plan of Treatment Not on file documented as of this encounter Visit Diagnoses Not on filedocumented in this encounter Care Teams Transfer Station Attendant Relationship Specialty Start Date End Date Alan Beyer MD [address] [place] [address] PCP - General Family Medicine 06/08/23 documented as of this encounter
--- OUTSIDE RECORDS SUMMARY | 2024-11-05 10:20 | XMS_ITS | Encounter Summary ---
Author Organization [employer] Address [address] [place] [address] Care Team Providers Care Front Office Director Name Role Phone Alan Beyer MD Primary Care Provider [phone] Encounter Details Date Type Department Care Team (Late st Contact Info) Description 06/05/2018 Transcribed Document [facility] [place] [facility] [address] ProviderJessenia MD [address] [place] [address] Social History Tobacco Use Types Packs/Day Years Used Date Smoking Tobacco: Never Assessed Comments Unknown Sex and Gender Information Value Date Recorded Sex Assigned at Not on file Legal Sex Female 4:28 PM CDT Gender Identity Not on file Sexual Orientation Not on file documented as of this encounter Miscellaneous Notes * Cerner Conversion Note - Jessenia Alvarez MD - 06/05/2018 8:44 AM FRUIT OR NUT FARM WORKER Pediatric Growth Entered On: 06/05/2018 8:44 EST Performed On: 06/05/2018 8:44 EST by Cheri Loaiza Care [facility] Unit Coord Height and Weight, Clinical Dosing Height Source : Stated Height Entry Format : [place] Height, Feet : 5 ft(Converted to: 152 cm, 60 Inch) Height, Inches : 5 Inch(Converted to: 0 ft 5 Inch, 12.70 cm) Clinical Height : 165.1 cm Weight Source : Standing scale Weight Entry Format : [place] Clinical Dosing Weight : 75 kg Weight, Pounds : 165 lb Body Surface Area (BSA) : 1.82 m2 Body Mass Index : 27.5 kg/m2 (HI) [place] Body Weight : 57 kg Cheri Loaiza Care Asst-Health Unit [facility] - 06/05/2018 8:44 EST documented in this encounter Plan of Treatment Not on file documented as of this encounter Visit Diagnoses Not on filedocumented in this encounter Care Teams Front Office Director Relationship Specialty Start Date End Date Alan Beyer MD [address] [place] [address] PCP - General Family Medicine 06/08/23 documented as of this encounter
--- OUTSIDE RECORDS SUMMARY | 2024-11-05 10:20 | XMS_ITS | Encounter Summary ---
Author Organization [employer] Address [address] [place] [address] Care Team Providers Care Sewing Machine Repairer Helper Name Role Phone Alan Beyer MD Primary Care Provider [phone] Encounter Details Date Type Department Care Team (Late st Contact Info) Description 10/17/[address] [facility] [place] [address] ProviderJessenia MD [address] [place] [address] Social History Tobacco Use Types Packs/Day Years Used Date Smoking Tobacco: Never Assessed Comments Unknown Sex and Gender Information Value Date Recorded Sex Assigned at Not on file Legal Sex Female 4:28 PM CDT Gender Identity Not on file Sexual Orientation Not on file documented as of this encounter Miscellaneous Notes * Cerner Conversion Note - Jessenia Alvarez MD - 10/17/2020 6:54 PM CDT [place] [id number] CHARLINE BOND :1980 Visit Time:10/17/2020 Your Visit Summary Your Care Team Primary Provider: JENNIFER HOWELL Secondary Provider: Your Diagnosis Flank pain Right flank pain Medical Information You may obtain a [...] days Comments Call for follow up appointment. Return to ER for new or worsening symptoms as discussed, especially fever, new or worsening flank or abdominal pain, persistnet vomiting, difficulty breathing. Allergies Bactrim acetaminophen-oxyCODONE clindamycin Toradol baclofen doxycycline escitalopram fentaNYL lidocaine topical 2% gel meperidine morphine penicillin (Hives) tetanus immune globulin Immunizations This Visit No Immunizations Found Medications What How Much When Instructions Next Dose ibuprofen 400 Milligram(s) Oral Every 8 Hours as needed for as needed for pain ibuprofen (ibuprofen 600 mg oral tablet) 1 Tablet(s) Oral Every 8 Hours as needed for as needed for pain Duration: 5 Day(s) Pickup at [facility] 407 conjugated estrogens (Premarin) Vaginal Weekly cream fexofenadine (Karine) Oral Every Day methocarbamol (Robaxin-750 oral tablet) [...] Oral Every Day fever blister Pharmacy Information [facility] [address]: [address] [place], [place] [id number] [phone] The home medications listed are only as [...] This Visit (last charted value for your 10/17/2020 visit) Hematology 10/17/2020 3:14 PM WBC: 7.2 K/uL -- Normal range between ( 3.9 and 10.0 ) RBC: 3.78 Million/uL -- Normal range between ( 3.93 and 5.22 ) Hct: 38.7 % -- Normal range between ( 34.1 and 44.9 ) Hgb: 12.9 Gram/dL -- Normal range between ( 11.2 and 15.7 ) Platelet Count: 202 K/uL -- Normal range between ( 163 and 369 ) MCH: 34.1 pg -- Normal range between ( 25.6 and 32.2 ) MCHC: 33.3 Gram/dL -- Normal range between ( 32.3 and 36.5 ) MCV: 102.4 fL -- Normal range between ( 79.0 and 94.8 ) Slide Review: No Eos %: 2.2 % -- Normal range between ( 1.0 and 7.0 ) Franklin #: 0.44 K/uL -- Normal range between ( 0.24 and 0.82 ) Eos #: 0.16 K/uL -- Normal range between ( 0.04 and 0.54 ) [place] %: 6.1 % -- Normal range between ( 4.7 and 12.5 ) Baso %: 0.4 % -- Normal range between ( 0.0 and 1.0 ) Baso #: 0.03 K/uL -- Normal range between ( 0.01 and 0.08 ) RDW: 12.1 % -- Normal range between ( 11.6 and 14.4 ) Neut %: 56.8 % -- Normal range between ( 34.0 and 71.0 ) Neut #: 4.10 K/uL -- Normal range between ( 1.56 and 6.13 ) Lymph %: 34.4 % -- Normal range between ( 19.3 and 53.0 ) Lymph #: 2.49 K/uL -- Normal range between ( 1.18 and 3.74 ) MPV: 9.8 fL -- Normal range between ( 9.4 and 12.4 ) IG#: 0 x10(3)/uL IG%: 0 % -- Normal range between ( 0 and 1 ) Urinalysis 10/17/2020 3:14 PM Ur RBC: None Seen Urine Nitrite: Negative Urine Leukocyte Esterase: Trace Ur Epithelial Cells: 0-2 /HPF Urine Appearance: Clear Urine Glucose Dipstick: Negative Urine Blood Dipstick: Negative Urine Urobilinogen Dipstick: 0.2 EU/dL -- Normal range between ( 0.2 and 1.0 ) Urine Protein Dipstick: Negative Ur Bacteria: None Seen Urine Color: Yellow Ur WBC: 0-2 /HPF Urine Ketones Dipstick: Negative Urine pH Dipstick: 5.5 -- Normal range between ( 6.0 and 8.0 ) Urine Bilirubin Dipstick: Negative Urine Specific [place]: 1.022 -- Normal range between ( 1.005 and 1.030 ) Urine Type.: U CleanCatch Urine Culture if Indicated: Not Indicated General Chemistry 10/17/2020 3:14 PM Creatinine Level: 0.75 mg/dL -- Normal range between ( 0.55 and 1.02 ) Sodium Level: 139 mmol/L -- Normal range between ( 136 and 146 ) Potassium Level: 3.8 mmol/L -- Normal range between ( 3.5 and 5.1 ) Chloride Level: 109 mmol/L -- Normal range between ( 102 and 112 ) Carbon Dioxide Level: 20 mmol/L -- Normal range between ( 21 and 32 ) Anion Gap: 14 -- Normal range between ( 9 and 20 ) Bilirubin Total: 0.4 mg/dL -- Normal range between ( 0.2 and 1.3 ) A/G Ratio: 1.0 -- Normal range between ( 1.1 and 2.5 ) ALT: 28 Units/Liter -- Normal range between ( 12 and 78 ) AST: 21 Units/Liter -- Normal range between ( 5 and 37 ) Globulin: 3.8 Gram/dL -- Normal range between ( 1.5 and 4.5 ) Alk Phos: 78 Units/Liter -- Normal range between ( 27 and 136 ) Bun/Creatinine: 17.3 -- Normal range between ( 8.0 and 20.0 ) Calcium Level: 8.8 mg/dL -- Normal range between ( 8.5 and 10.1 ) eGFR : >60 mL/min/1.73m2 eGFR NonAfrican: >60 mL/min/1.73m2 Glucose Level: 98 mg/dL -- Normal range between ( 74 and 106 ) Blood Urea Nitrogen: 13 mg/dL -- Normal range between ( 7 and 22 ) Protein Total: 7.7 Gram/dL -- Normal range between ( 6.4 and 8.2 ) Albumin Level: 3.9 Gram/dL -- Normal range between ( 3.4 and 5.0 ) Lipase Level: 65 Units/Liter -- Normal range between ( 73 and 393 ) Endocrinology 10/17/2020 3:14 PM HCG Urine Qualitative: Negative Toxicology 10/17/2020 3:14 PM UDS Amp: Negative UDS Ade: Negative UDS Benzo: Negative UDS Claribel: Negative UDS Meth: Negative UDS Opi: Negative UDS Oxy: Negative UDS PCP: Negative UDS TCA: Negative UDS THC: Negative Buprenorphine Screen, Urine: Negative Meperidine Screen, Urine: Negative Tramadol Screen, Urine: Negative Heroin Metab (6AM) by LC-MS/MS, Urine: Negative Carisoprodol Screen, Urine: Negative SpGravity, Urine: 1.022 Propoxyphene, Urine: Negative UDS pH: 5.7 Fentanyl, Urine: Negative UDS Creatinine, Toxicology: 157.3 mg/dL Education Materials Abdominal Pain, Adult Pain in [...] these instructions at home: Medicines ??? Take [id number] and prescription medicines only as told by [...] your condition for any changes. ??? Take [id number]-[id number] and prescription medicines only as told by [...] provider. Document Revised: 09/08/2019 Document Reviewed: 09/08/2019 [employer] Patient Education ?? 2020 [employer]. Flank Pain, Adult Flank pain is pain that is located on the side of the body between the upper abdomen and the back. This area is called the flank. The pain may occur over a short period of time (acute), or it may be long-term or recurring (chronic). It may be mild or severe. Flank pain can be caused by many things, including: ??? Muscle soreness or injury. ??? Kidney stones or kidney disease. ??? Stress. ??? A disease of the spine (vertebral disk disease). ??? A lung infection (pneumonia). ??? Fluid around the lungs (pulmonary edema). ??? A skin rash caused by the chickenpox virus (shingles). ??? Tumors that affect the back of the abdomen. ??? Gallbladder disease. Follow these instructions at home: ??? Drink enough fluid to keep your urine clear or pale yellow. ??? Rest as told by your health care provider. ??? Take [id number] and prescription medicines only as told by your health care provider. ??? Keep a journal to track what has caused your flank pain and what has made it feel better. ??? Keep all follow-up visits as told by your health care provider. This is important. Contact a health care provider if: ??? Your pain is not controlled with medicine. ??? You have new symptoms. ??? Your pain gets worse. ??? You have a fever. ??? Your symptoms last longer than 2???3 days. ??? You have trouble urinating or you are urinating very frequently. Get help right away if: ??? You have trouble breathing or you are short of breath. ??? Your abdomen hurts or it is swollen or red. ??? You have nausea or vomiting. ??? You feel faint or you pass out. ??? You have blood in your urine. Summary ??? Flank pain is pain that is located on the side of the body between the upper abdomen and the back. ??? The pain may occur over a short period of time (acute), or it may be long-term or recurring (chronic). It may be mild or severe. ??? Flank pain can be caused by many things. ??? Contact your health care provider if your symptoms get worse or they last longer than 2???3 days. This information is not intended to replace advice given to you by your health care provider. Make sure you discuss any questions you have with your health care provider. Document Revised: 04/12/2018 Document Reviewed: 07/13/2017 [place] Patient Education ?? 2020 [employer]. Emergency Awareness and Preventative Care STROKE [...] Assistance with quitting is available by contacting 3-443-LUKM-NOW. This is a free resource providing counseling, [...] was given the opportunity to ask questions. Patient/Assistant Store Manager Operations Name: Patient/Assistant Store Manager Operations Signature: Relationship to Patient: Clinician/Hospital Assistant Store Manager Operations Signature: Please Provide a Telephone Number Where You Can Be Reached: Is it Permissible To Leave a Message? Date: Electronically signed by Jannette [facility] Conversion Metal Bonding Helper Cerner at 08/31/2022 5:04 PM CDT documented in this encounter Plan of Treatment Not on file documented as of this encounter Visit Diagnoses Not on filedocumented in this encounter Care Teams Sewing Machine Repairer Helper Relationship Specialty Start Date End Date Alan Beyer MD [address] [place] [address] PCP - General Family Medicine 06/08/23 documented as of this encounter
--- OUTSIDE RECORDS SUMMARY | 2024-11-05 10:20 | XMS_ITS | Encounter Summary ---
Author Organization [employer] Address [address] [place] [address] Care Team Providers Care Review Assistant Name Role Phone Alan Beyer MD Primary Care Provider [phone] Encounter Details Date Type Department Care Team (Late st Contact Info) Description 08/19/2021 Transcribed Document [facility] [place] Family [facility] [place] [address] ProviderJessenia MD [address] [place] [address] Social History Tobacco Use Types Packs/Day Years Used Date Smoking Tobacco: Never Assessed Comments Unknown Sex and Gender Information Value Date Recorded Sex Assigned at Not on file Legal Sex Female 4:28 PM CDT Gender Identity Not on file Sexual Orientation Not on file documented as of this encounter Miscellaneous Notes * Cerner Conversion Note - Jessenia Alvarez MD - 08/19/2021 10:52 PM CDT [place] [id number] CHARLINE BOND :1980 Visit Time:08/19/2021 Your Visit Summary Your Care Team Primary Provider: ANGELIQUE VARELA Secondary Provider: Your Diagnosis Abdominal pain Calculus of ureterovesical junction (UVJ) Flank pain, Flank pain Nausea Medical Information You may obtain a copy [...] do next Follow-Up Appointments Follow Up with JAGDISH BETTIE When Within 2 to 3 days Comments Call for follow up appointment Follow-up as instructed Where: [address] [place] [address] [facility] (1) Follow Up with MICHAEL AIDEE When Within 2 to 3 days Comments Call for follow up appointment Follow-up as instructed Where: [address] [place], [place] [id number] [facility] (1) Allergies Bactrim acetaminophen-oxyCODONE clindamycin Toradol baclofen doxycycline escitalopram fentaNYL lidocaine topical 2% gel meperidine morphine penicillin (Hives) tetanus immune globulin Immunizations This Visit No Immunizations Found Medications What How Much When Instructions Next Dose acetaminophen-hydrocodone (Coggon 5 mg-325 mg oral tablet) 1 Tablet(s) Oral Every 6 Hours as needed for for pain Duration: 3 Day(s) Pickup at [facility]/pharmacy #[id number] ondansetron (Zofran ODT 4 mg oral tablet, disintegrating) 1 Tablet(s) Oral Every 6 Hours as needed for Nausea/Vomiting Duration: 2 Day(s) Pickup at [facility]/pharmacy #[id number] clonazePAM (clonazePAM 0.5 mg oral tablet) 1 [...] Tablet(s) Oral Every Day Duration: 30 Day(s) Pharmacy Information [facility]/pharmacy #[id number]: [address] [place], [place] [id number] [phone] The home medications listed are only as [...] This Visit (last charted value for your 08/19/2021 visit) Hematology 08/19/2021 9:57 PM WBC: 9.5 K/uL -- Normal range between ( 3.9 and 10.0 ) RBC: 3.97 Million/uL -- Normal range between ( 3.93 and 5.22 ) Hct: 41.3 % -- Normal range between ( 34.1 and 44.9 ) Hgb: 13.8 Gram/dL -- Normal range between ( 11.2 and 15.7 ) Platelet Count: 232 K/uL -- Normal range between ( 163 and 369 ) MCH: 34.8 pg -- Normal range between ( 25.6 and 32.2 ) MCHC: 33.4 Gram/dL -- Normal range between ( 32.3 and 36.5 ) MCV: 104.0 fL -- Normal range between ( 79.0 and 94.8 ) Slide Review: No Eos %: 0.8 % -- Normal range between ( 1.0 and 7.0 ) [place] #: 0.45 K/uL -- Normal range between ( 0.24 and 0.82 ) Eos #: 0.08 K/uL -- Normal range between ( 0.04 and 0.54 ) [place] %: 4.8 % -- Normal range between ( 4.7 and 12.5 ) Baso %: 0.3 % -- Normal range between ( 0.0 and 1.0 ) Baso #: 0.03 K/uL -- Normal range between ( 0.01 and 0.08 ) RDW: 12.1 % -- Normal range between ( 11.6 and 14.4 ) Neut %: 59.9 % -- Normal range between ( 34.0 and 71.0 ) Neut #: 5.66 K/uL -- Normal range between ( 1.56 and 6.13 ) Lymph %: 34.0 % -- Normal range between ( 19.3 and 53.0 ) Lymph #: 3.22 K/uL -- Normal range between ( 1.18 and 3.74 ) MPV: 9.9 fL -- Normal range between ( 9.4 and 12.4 ) IG#: 0 x10(3)/uL IG%: 0 % -- Normal range between ( 0 and 1 ) Urinalysis 08/19/2021 9:06 PM Urine Nitrite: Negative Urine Leukocyte Esterase: Negative Urine Appearance: Clear Urine Glucose Dipstick: Negative Urine Blood Dipstick: Negative Urine Urobilinogen Dipstick: 0.2 EU/dL -- Normal range between ( 0.2 and 1.0 ) Urine Protein Dipstick: Negative Urine Color: Yellow Urine Ketones Dipstick: Negative Urine pH Dipstick: 6.5 -- Normal range between ( 6.0 and 8.0 ) Urine Bilirubin Dipstick: Negative Urine Specific [place]: 1.003 -- Normal range between ( 1.005 and 1.030 ) Urine Type.: U CleanCatch Urine Culture if Indicated: Not Indicated General Chemistry 08/19/2021 9:57 PM Creatinine Level: 0.74 mg/dL -- Normal [...] between ( 12 and 78 ) AST: 12 Units/Liter -- Normal range between ( 5 and 37 ) Globulin: 4.6 Gram/dL -- Normal range between ( 1.5 and 4.5 ) Alk Phos: 96 Units/Liter -- Normal range between ( 27 and 136 ) Bun/Creatinine: 16.2 -- Normal range between ( 8.0 and 20.0 ) Calcium Level: 9.5 mg/dL -- Normal range between ( 8.5 and 10.1 ) eGFR : >60 mL/min/1.73m2 eGFR NonAfrican: >60 mL/min/1.73m2 Glucose Level: 83 mg/dL -- Normal range between ( 74 and 106 ) Blood Urea Nitrogen: 12 mg/dL -- Normal range between ( 7 and 22 ) Protein Total: 9.3 Gram/dL -- Normal range between ( 6.4 and 8.2 ) Albumin Level: 4.7 Gram/dL -- Normal range between ( 3.4 and 5.0 ) Endocrinology 08/19/2021 9:06 PM HCG Urine Qualitative: Negative Computed Tomography 08/19/2021 10:[address] Abdomen Pelvis WO: CT Abdomen Pelvis WO [employer] Kidney Stones Kidney stones are solid, rock-like deposits that form inside of the kidneys. The kidneys are a pair of organs that make urine. A kidney stone may form in a kidney and move into other parts of the urinary tract, including the tubes that connect the kidneys to the bladder (ureters), the bladder, and the tube that carries urine out of the body (urethra). As the stone moves through these areas, it can cause intense pain and block the flow of urine. Kidney stones are created when high levels of certain minerals are found in the urine. The stones are usually passed out of the body through urination, but in some cases, medical treatment may be needed to remove them. What are the causes? Kidney stones may be caused by: ??? A condition in which certain glands produce too much parathyroid hormone (primary hyperparathyroidism), which causes too much calcium buildup in the blood. ??? A buildup of uric acid crystals in the bladder (hyperuricosuria). Uric acid is a chemical that the body produces when you eat certain foods. It usually exits the body in the urine. ??? Narrowing (stricture) of one or both of the ureters. ??? A kidney blockage that is present at (congenital obstruction). ??? Past surgery on the kidney or the ureters, such as gastric bypass surgery. What increases the risk? The following factors may make you more likely to develop this condition: ??? Having had a kidney stone in the past. ??? Having a family history of kidney stones. ??? Not drinking enough water. ??? Eating a diet that is high in protein, salt (sodium), or sugar. ??? Being overweight or obese. What are the signs or symptoms? Symptoms of a kidney stone may include: ??? Pain in the side of the abdomen, right below the ribs (flank pain). Pain usually spreads (radiates) to the groin. ??? Needing to urinate frequently or urgently. ??? Painful urination. ??? Blood in the urine (hematuria). ??? Nausea. ??? Vomiting. ??? Fever and chills. How is this diagnosed? This condition may be diagnosed based on: ??? Your symptoms and medical history. ??? A physical exam. ??? Blood tests. ??? Urine tests. These may be done before and after the stone passes out of your body through urination. ??? Imaging tests, such as a CT scan, abdominal X-ray, or ultrasound. ??? A procedure to examine the inside of the bladder (cystoscopy). How is this treated? Treatment for kidney stones depends on the size, location, and makeup of the stones. Kidney stones will often pass out of the body through urination. You may need to: ??? Increase your fluid intake to help pass the stone. In some cases, you may be given fluids through an IV and may need to be monitored at the hospital. ??? Take medicine for pain. ??? Make changes in your diet to help prevent kidney stones from coming back. Sometimes, medical procedures are needed to remove a kidney stone. This may involve: ??? A procedure to break up kidney stones using: ? A focused beam of light (laser therapy). ? Shock waves (extracorporeal shock wave lithotripsy). ??? Surgery to remove kidney stones. This may be needed if you have severe pain or have stones that block your urinary tract. Follow these instructions at home: Medicines ??? Take chuf-tju-ofmiuiz and prescription medicines only as told by your health care provider. ??? Ask your health care provider if the medicine prescribed to you requires you to avoid driving or using heavy machinery. Eating and drinking ??? Drink enough fluid to keep your urine pale yellow. You may be instructed to drink at least 8???10 glasses of water each day. This will help you pass the kidney stone. ??? If directed, change your diet. This may include: ? Limiting how much sodium you eat. ? Eating more fruits and vegetables. ? Limiting how much animal protein???such as red meat, poultry, fish, and eggs???you eat. ??? Follow instructions from your health care provider about eating or drinking restrictions. General instructions ??? Collect urine samples as told by your health care provider. You may need to collect a urine sample: ? 24 hours after you pass the stone. ? 8???12 weeks after passing the kidney stone, and every 6???12 months after that. ??? Strain your urine every time you urinate, for as long as directed. Use the strainer that your health care provider recommends. ??? Do not throw out the kidney stone after passing it. Keep the stone so it can be tested by your health care provider. Testing the makeup of your kidney stone may help prevent you from getting kidney stones in the future. ??? Keep all follow-up visits as told by your health care provider. This is important. You may need follow-up X-rays or ultrasounds to make sure that your stone has passed. How is this prevented? To prevent another kidney stone: ??? Drink enough fluid to keep your urine pale yellow. This is the best way to prevent kidney stones. ??? Eat a healthy diet and follow recommendations from your health care provider about foods to avoid. You may be instructed to eat a low-protein diet. Recommendations vary depending on the type of kidney stone that you have. ??? Maintain a healthy weight. Where to find more information ??? National Kidney Foundation (NKF): www.kidney.org ??? Urology Care Foundation (UCF): www.urologyhealth.org Contact a health care provider if: ??? You have pain that gets worse or does not get better with medicine. Get help right away if: ??? You have a fever or chills. ??? You develop severe pain. ??? You develop new abdominal pain. ??? You faint. ??? You are unable to urinate. Summary ??? Kidney stones are solid, rock-like deposits that form inside of the kidneys. ??? Kidney stones can cause nausea, vomiting, blood in the urine, abdominal pain, and the urge to urinate frequently. ??? Treatment for kidney stones depends on the size, location, and makeup of the stones. Kidney stones will often pass out of the body through urination. ??? Kidney stones can be prevented by drinking enough fluids, eating a healthy diet, and maintaining a healthy weight. This information is not intended to replace advice given to you by your health care provider. Make sure you discuss any questions you have with your health care provider. Document Revised: 09/16/2019 Document Reviewed: 09/16/2019 [employer] Patient Education ?? 2020 [employer] Emergency Awareness and Preventative Care STROKE [...] Assistance with quitting is available by contacting 0-260-GGOFNOW. This is a free resource providing counseling, [...] was given the opportunity to ask questions. Patient/Wellness Consultant Name: Patient/Wellness Consultant Signature: Relationship to Patient: Clinician/Hospital Wellness Consultant Signature: Please Provide a Telephone Number Where You Can Be Reached: Is it Permissible To Leave a Message? Date: Electronically signed by Jannette, [facility] Conversion Clin Application Specialist [place] at 08/31/2022 5:26 PM CDT documented in this encounter Plan of Treatment Not on file documented as of this encounter Visit Diagnoses Not on filedocumented in this encounter Care Teams Review Assistant Relationship Specialty Start Date End Date Alan Beyer MD [address] [place] [address] PCP - General Family Medicine 06/08/23 documented as of this encounter
--- OUTSIDE RECORDS SUMMARY | 2024-11-05 10:20 | XMS_ITS | Encounter Summary ---
Author Organization [employer] Address [address] [place] [address] Care Team Providers Care History Teacher Name Role Phone Alan Beyer MD Primary Care Provider [phone] Encounter Details Date Type Department Care Team (Late st Contact Info) Description 06/05/2018 Transcribed Document [facility] [place] Family Medicine [facility] [place] [address] ProviderJessenia MD [address] [place], [place] [id number] Social History Tobacco Use Types Packs/Day Years Used Date Smoking Tobacco: Never Assessed Comments Unknown Sex and Gender Information Value Date Recorded Sex Assigned at Not on file Legal Sex Female 4:28 PM CDT Gender Identity Not on file Sexual Orientation Not on file documented as of this encounter Miscellaneous Notes * Cerner Conversion Note - Jessenia ProviderMD - 06/05/2018 11:45 AM PRO SHOP ATTENDANT E Main OR PACU Summary Primary Physician: DORIS BRANCH DO Finalized Date/Time: 06/05/18 13:55:19 Pt. Name: RONDA CHARLINE DENIZ /Sex: 1980 Female Med Rec #: [id number] Physician: DORIS BRANCH DO Financial #: [id number] Pt. Type: O Room/Bed: [facility]/1 Admit/Disch: 06/05/18 04:59:00 - Institution: [facility] Main OR PACU Case Times Entry 1 In PACU I 06/05/18 12:56:00 Ready for PACU 06/05/18 13:26:00 Discharge Discharge from PACU 06/05/18 13:45:00 I Last Modified By: REBECCA FLORES RN 06/05/18 13:50:52 [facility] Main OR PACU Case Times Audit 06/05/18 13:50:52 Billing Assistant: ANGELA Modifier: [email or web address] <+> 1 Discharge from PACU I 06/05/18 13:17:57 Billing Assistant: ANGELA Modifier: [email or web address] <+> 1 Ready for PACU Discharge [facility] Main OR PACU Acuity Entry 1 Start Time 06/05/18 12:56:00 Stop Time 06/05/18 13:45:00 Acuity Level [facility] PACU Acuity I Last Modified By: REBECCA FLORES RN 06/05/18 13:51:14 [facility] Main OR PACU Acuity Audit 06/05/18 13:51:14 Billing Assistant: ANGELA Modifier: ANGELA <+> 1 Stop Time Finalized By: REBECCA FLORES, RN Document Signatures Signed By: REBECCA FLORES RN 06/05/18 13:55 Electronically signed by Jannette [facility] Conversion Crust Sorter Cerner at 08/31/2022 5:17 PM CDT documented in this encounter Plan of Treatment Not on file documented as of this encounter Visit Diagnoses Not on filedocumented in this encounter Care Teams History Teacher Relationship Specialty Start Date End Date Alan Beyer MD [address] [place] [address] PCP - General Family Medicine 06/08/23 documented as of this encounter
--- OUTSIDE RECORDS SUMMARY | 2024-11-05 10:20 | XMS_ITS | Encounter Summary ---
Author Organization [employer] Address [address] [place] [address] Care Team Providers Care Radio Division Officer Name Role Phone Alan Beyer MD Primary Care Provider [phone] Encounter Details Date Type Department Care Team (Late st Contact Info) Description 06/05/2018 Transcribed Document [facility] [place] [address] ProviderJessenia MD [address] [place] [address] Social History Tobacco Use Types Packs/Day Years Used Date Smoking Tobacco: Never Assessed Comments Unknown Sex and Gender Information Value Date Recorded Sex Assigned at Not on file Legal Sex Female 4:28 PM CDT Gender Identity Not on file Sexual Orientation Not on file documented as of this encounter Miscellaneous Notes * Cerner Conversion Note - Jessenia Alvarez MD - 06/05/2018 12:43 PM PLANNING RN Pain Assessment Entered On: 06/06/2018 2:46 EST Performed On: 06/05/2018 21:06 EST by JULIÁN TAFOYA RN Intervention Information: acetaminophen-HYDROcodone Performed by JULIÁN TAFOYA RN on 06/05/2018 20:06:26 EST acetaminophen-hydrocodone,1Tab Oral,Pain (Severe 7-10) Pain Assessment Pain Assessment : Follow-up assessment Pain Scale Used : 0-10 Scale JULIÁN TAFOYA RN - 06/06/2018 2:45 EST Pain Scale Intensity : 0 JULIÁN TAFOYA RN - 06/06/2018 2:45 EST Image 4 - Images currently included in the form version of this document have not been included in the text rendition version of the form. documented in this encounter Plan of Treatment Not on file documented as of this encounter Visit Diagnoses Not on filedocumented in this encounter Care Teams Radio Division Officer Relationship Specialty Start Date End Date Alan Beyer MD [address] [place] [address] PCP - General Family Medicine 06/08/23 documented as of this encounter
--- OUTSIDE RECORDS SUMMARY | 2024-11-05 10:20 | XMS_ITS | Encounter Summary ---
Author Organization [employer] Address [address] [place] [address] Care Team Providers Care Rotary Engine Assembler Name Role Phone Alan Beyer MD Primary Care Provider Encounter Details Date Type Department Care Team (Late st Contact Info) Description 12/14/2018 Transcribed Document [facility] Family Medicine [facility] [place] [address] ProviderJessenia MD [address] [place] [address] Social History Tobacco Use Types Packs/Day Years Used Date Smoking Tobacco: Never Assessed Comments Unknown Sex and Gender Information Value Date Recorded Sex Assigned at Not on file Legal Sex Female 4:28 PM CDT Gender Identity Not on file Sexual Orientation Not on file documented as of this encounter Miscellaneous Notes * Cerner Conversion Note - Jessenia Alvarez MD - 12/14/2018 1:12 PM CDT [place] [id number] CHARLINE BOND :1980 Visit Time:12/14/2018 Your Visit Summary Your Care Team Admitting Physician - PRIYA, JAMAR PAYNE MD-EM[facility] Attending Physician - JAMAR BREWER MD-EMR Primary Care Physician - JORGE LUIS CAMPBELL NP-[facility] Referring Physician - PRIYA, SELF REFERRED Your Diagnosis Abdominal pain Abdominal pain Microscopic hematuria Medical Information You may obtain a copy [...] do next Follow-Up Appointments Follow Up with Return to Emergency Department When Within As needed Comments Return if condition worsens. Try to rest up, drink lots of fluids, follow-up with urology if your symptoms continue. Take medication as needed and drink enough water until the urine is pale yellow in color. You can strain the urine as well to look for the stone. Return to the ER for fevers 101.0 high or, pain not controlled, or getting worse. Follow Up with [facility] When Within As needed Comments Patient has a primary care physician with [facility]. For assistance in the future with finding a new primary care physician please contact the [facility] at [phone]. Follow Up with JORGE LUIS CAMPBELL When Within 2 to 3 days Where: [address] [place] [address]- Business (1) Allergies Bactrim acetaminophen-oxyCODONE clindamycin Toradol baclofen doxycycline escitalopram fentaNYL lidocaine topical 2% gel meperidine morphine penicillin tetanus immune globulin Immunizations This Visit No Immunizations Found Medications What How Much When Instructions Next Dose New acetaminophen-hydrocodone ([place]field 5 mg-325 mg oral tablet) 1-2 tabs Oral Every 6 Hours as needed for as needed for pain Printed Prescription New nabumetone (nabumetone 500 mg oral tablet) 1 Tablet(s) Oral Two Times A Day as needed for Pain Duration: 4 Day(s) Pickup at [place] [address] New ondansetron (Zofran ODT 4 mg oral tablet, disintegrating) 1 Tablet(s) Oral Three Times A Day as needed for Nausea/Vomiting Pickup at [facility] Pharmacy Information [facility] 407: [address] [place], [place] [id number] [phone] The home medications listed are only as [...] This Visit (last charted value for your 12/14/2018 visit) Hematology 12/14/18 11:09:00 WBC: 7.1 K/uL -- Normal range between ( 3.9 and 10.0 ) RBC: 3.72 Million/uL -- Normal range between ( 3.93 and 5.22 ) Hct: 39.1 % -- Normal range between ( 34.1 and 44.9 ) Hgb: 13.4 Gram/dL -- Normal range between ( 11.2 and 15.7 ) Platelet Count: 172 K/uL -- Normal range between ( 163 and 369 ) MCH: 36.0 pg -- Normal range between ( 25.6 and 32.2 ) MCHC: 34.3 Gram/dL -- Normal range between ( 32.3 and 36.5 ) MCV: 105.1 fL -- Normal range between ( 79.0 and 94.8 ) Slide Review: No Eos %: 0.7 % -- Normal range between ( 1.0 and 7.0 ) [place] #: 0.42 K/uL -- Normal range between ( 0.24 and 0.82 ) Eos #: 0.05 K/uL -- Normal range between ( 0.04 and 0.54 ) [place] %: 5.9 % -- Normal range between ( 4.7 and 12.5 ) Baso %: 0.3 % -- Normal range between ( 0.0 and 1.0 ) Baso #: 0.02 K/uL -- Normal range between ( 0.01 and 0.08 ) RDW: 13.2 % -- Normal range between ( 11.6 and 14.4 ) Neut %: 65.8 % -- Normal range between ( 34.0 and 71.0 ) Neut #: 4.65 K/uL -- Normal range between ( 1.56 and 6.13 ) Lymph %: 27.0 % -- Normal range between ( 19.3 and 53.0 ) Lymph #: 1.91 K/uL -- Normal range between ( 1.18 and 3.74 ) MPV: 10.7 fL -- Normal range between ( 9.4 and 12.4 ) IG#: 0 x10(3)/uL IG%: 0 % -- Normal range between ( 0 and 1 ) Urinalysis 12/14/18 11:17:00 Ur RBC: 0-2 /HPF Urine Nitrite: Negative Urine Leukocyte Esterase: Negative Urine Appearance: Clear Urine Glucose Dipstick: Negative Urine Blood Dipstick: Negative Urine Type: U CleanCatch Urine Urobilinogen Dipstick: 0.2 EU/dL -- Normal range between ( 0.2 and 1.0 ) Urine Protein Dipstick: Negative Ur Bacteria: None Seen Ur Squamous Epithelial Cells: 5-10 /HPF Urine Color: Yellow Ur WBC: 0-2 /HPF Urine Ketones Dipstick: Negative Ur Mucous: 1+ Urine pH Dipstick: 6.0 -- Normal range between ( 6.0 and 8.0 ) Urine Bilirubin Dipstick: Negative mg/dL Urine Specific [place]: 1.020 -- Normal range between ( 1.005 and 1.030 ) General Chemistry 12/14/18 11:09:00 Creatinine Level: 0.64 mg/dL -- Normal range between ( 0.55 and 1.02 ) Sodium Level: 140 mmol/L -- Normal range between ( 136 and 146 ) Potassium Level: 4.3 mmol/L -- Normal range between ( 3.5 [...] between ( 1.1 and 2.5 ) ALT: 14 Units/Liter -- Normal range between ( 12 and 78 ) AST: 25 Units/Liter -- Normal range between ( 5 and 37 ) Globulin: 3.8 Gram/dL -- Normal range between ( 1.5 and 4.5 ) Alk Phos: 93 Units/Liter -- Normal range between ( 27 and 136 ) Bun/Creatinine: 14.1 -- Normal range between ( 8.0 and 20.0 ) Calcium Level: 8.7 mg/dL -- Normal range between ( 8.5 and 10.1 ) eGFR : >60 mL/min/1.73m2 eGFR NonAfrican: >60 mL/min/1.73m2 Glucose Level: 90 mg/dL -- Normal range between ( 74 and 106 ) Blood Urea Nitrogen: 9 mg/dL -- Normal range between ( 7 and 22 ) Protein Total: 7.3 Gram/dL -- Normal range between ( 6.4 and 8.2 ) Albumin Level: 3.5 Gram/dL -- Normal range between ( 3.4 and 5.0 ) Lipase Level: 54 Units/Liter -- Normal range between ( 73 and 393 ) Endocrinology 12/14/18 11:17:00 HCG Urine Qualitative: Negative Education Materials Dietary Guidelines to Help Prevent Kidney Stones Kidney stones are deposits of minerals and salts that form inside your kidneys. Your risk of developing kidney stones may be greater depending on your diet, your lifestyle, the medicines you take, and whether you have certain medical conditions. Most people can reduce their chances of developing kidney stones by following the instructions below. Depending on your overall health and the type of kidney stones you tend to develop, your dietitian may give you more specific instructions. What are tips for following this plan? Reading food labels ??? Choose foods with no salt added or low-salt labels. Limit your sodium intake to less than 1500 mg per day. ??? Choose foods with calcium for each meal and snack. Try to eat about 300 mg of calcium at each meal. Foods that contain 200???500 mg of calcium per serving include: ? 8 oz (237 ml) of milk, fortified nondairy milk, and fortified fruit juice. ? 8 oz (237 ml) of kefir, yogurt, and soy yogurt. ? 4 oz (118 ml) of tofu. ? 1 oz of cheese. ? 1 cup (300 g) of dried figs. ? 1 cup (91 g) of cooked broccoli. ? 1???3 oz can of sardines or mackerel. ??? Most people need 1000 to 1500 mg of calcium each day. Talk to your dietitian about how much calcium is recommended for you. Shopping ??? Buy plenty of fresh fruits and vegetables. Most people do not need to avoid fruits and vegetables, even if they contain nutrients that may contribute to kidney stones. ??? When shopping for convenience foods, choose: ? Whole pieces of fruit. ? Premade salads with dressing on the side. ? Low-fat fruit and yogurt smoothies. ??? Avoid buying frozen meals or prepared deli foods. ??? Look for foods with live cultures, such as yogurt and kefir. Cooking ??? Do not add salt to food when cooking. Place a salt shaker on the table and allow each person to add his or her own salt to taste. ??? Use vegetable protein, such as beans, textured vegetable protein (TVP), or tofu instead of meat in pasta, casseroles, and soups. Meal planning ??? Eat less salt, if told by your dietitian. To do this: ? Avoid eating processed or premade food. ? Avoid eating fast food. ??? Eat less animal protein, including cheese, meat, poultry, or fish, if told by your dietitian. To do this: ? Limit the number of times you have meat, poultry, fish, or cheese each week. Eat a diet free of meat at least 2 days a week. ? Eat only one serving each day of meat, poultry, fish, or seafood. ? When you prepare animal protein, cut pieces into small portion sizes. For most meat and fish, one serving is about the size of one deck of cards. ??? Eat at least 5 servings of fresh fruits and vegetables each day. To do this: ? Keep fruits and vegetables on hand for snacks. ? Eat 1 piece of fruit or a handful of berries with breakfast. ? Have a salad and fruit at lunch. ? Have two kinds of vegetables at dinner. ??? Limit foods that are high in a substance called oxalate. These include: ? Spinach. ? Rhubarb. ? Beets. ? Potato chips and georgian fries. ? Nuts. ??? If you regularly take a diuretic medicine, make sure to eat at least 1???2 fruits or vegetables high in potassium each day. These include: ? Avocado. ? Banana. ? [place], prune, carrot, or tomato juice. ? Baked potato. ? Cabbage. ? Beans and split peas. General instructions ??? Drink enough fluid to keep your urine clear or pale yellow. This is the most important thing you can do. ??? Talk to your health care provider and dietitian about taking daily supplements. Depending on your health and the cause of your kidney stones, you may be advised: ? Not to take supplements with vitamin C. ? To take a calcium supplement. ? To take a daily probiotic supplement. ? To take other supplements such as magnesium, fish oil, or vitamin B6. ??? Take all medicines and supplements as told by your health care provider. ??? Limit alcohol intake to no more than 1 drink a day for non women and 2 drinks a day for men. One drink equals 12 oz of beer, 5 oz of wine, or 1?? oz of hard liquor. ??? Lose weight if told by your health care provider. Work with your dietitian to find strategies and an eating plan that works best for you. What foods are not recommended? Limit your intake of the following foods, or as told by your dietitian. Talk to your dietitian about specific foods you should avoid based on the type of kidney stones and your overall health. Grains Breads. Bagels. Rolls. Baked goods. Salted crackers. Cereal. Pasta. Vegetables Spinach. Rhubarb. Beets. Canned vegetables. Pickles. Olives. Meats and other protein foods Nuts. Nut butters. Large portions of meat, poultry, or fish. Salted or cured meats. Deli meats. Hot dogs. Sausages. Dairy Cheese. Beverages Regular soft drinks. Regular vegetable juice. Seasonings and other foods Seasoning blends with salt. Salad dressings. Canned soups. Soy sauce. Ketchup. Barbecue sauce. Canned pasta sauce. Casseroles. Pizza. Lasagna. Frozen meals. Potato chips. Nepalese fries. Summary ??? You can reduce your risk of kidney stones by making changes to your diet. ??? The most important thing you can do is drink enough fluid. You should drink enough fluid to keep your urine clear or pale yellow. ??? Ask your health care provider or dietitian how much protein from animal sources you should eat each day, and also how much salt and calcium you should have each day. This information is not intended to replace advice given to you by your health care provider. Make sure you discuss any questions you have with your health care provider. Document Released: 08/25/2011 Document Revised: 04/10/2017 Document Reviewed: 04/10/2017 [employer] Interactive Patient Education ?? 2019 [employer]. Emergency Awareness and Preventative Care STROKE is [...] Assistance with quitting is available by contacting 1-148-CQAA-NOW. This is a free resource providing counseling, [...] was given the opportunity to ask questions. Patient/Nurses Assistant Name: Patient/Nurses Assistant Signature: Relationship to Patient: Clinician/Hospital Nurses Assistant Signature: Please Provide a Telephone Number Where You Can Be Reached: Is it Permissible To Leave a Message? Date: Electronically signed by Interface, [facility] Conversion [employer] Assistant Principal Cerner at 08/31/2022 5:18 PM CDT documented in this encounter Plan of Treatment Not on file documented as of this encounter Visit Diagnoses Not on filedocumented in this encounter Care Teams Rotary Engine Assembler Relationship Specialty Start Date End Date Alan Beyer MD [address], [place] [id number] PCP - General Family Medicine 06/08/23 documented as of this encounter
--- OUTSIDE RECORDS SUMMARY | 2024-11-05 10:20 | XMS_ITS | Encounter Summary ---
Author Organization [employer] Address [address] [place] [address] Care Team Providers Care Japanese Interpreter Name Role Phone Alan Beyer MD Primary Care Provider [phone] Encounter Details Date Type Department Care Team (Late st Contact Info) Description 11/01/2020 Transcribed Document [facility] [place] [facility] [place] [address] ProviderJessenia MD [address] [place] [address] Social History Tobacco Use Types Packs/Day Years Used Date Smoking Tobacco: Never Assessed Comments Unknown Sex and Gender Information Value Date Recorded Sex Assigned at Not on file Legal Sex Female 4:28 PM CDT Gender Identity Not on file Sexual Orientation Not on file documented as of this encounter Miscellaneous Notes * Cerner Conversion Note - Jessenia lAvarez MD - 11/01/2020 10:55 PM CDT [place] [id number] CHARLINE BOND :1980 Visit Time:11/01/2020 Your Visit Summary Your Care Team Primary Provider: ZAIDA FRANCIS PA-C Secondary Provider: Your Diagnosis Abdominal pain, Abdominal pain Abdominal pain Right ovarian cyst Medical Information You may [...] When Within 2 to 3 days Comments Appointment with your LIEUTENANT/DEPUTY. Take medications as directed. Stay home, wear your mask, and practice self distancing. Return to the ER if symptoms worsen or persist. The following medications have been prescribed to you today: Prescriptions (1) Active diclofenac sodium 75 mg oral delayed release tablet 75 mg = 1 Tab, DR Tab, BID, Oral, 5 Day(s), 10 Tab, 0 refill(s), Route to Pharmacy Electronically, [place] [address] Where: [address] [place] [address]- Business (1) Allergies Bactrim acetaminophen-oxyCODONE clindamycin Toradol baclofen doxycycline escitalopram fentaNYL lidocaine topical 2% gel meperidine morphine penicillin (Hives) tetanus immune globulin Immunizations This Visit No Immunizations Found Medications What How Much When Instructions Next Dose diclofenac (diclofenac sodium 75 mg oral delayed release tablet) 1 Tablet(s) Oral Two Times A Day Duration: 5 Day(s) Pickup at [place] [address] conjugated estrogens (Premarin) Vaginal Weekly cream fexofenadine [...] Oral Every Day fever blister Pharmacy Information [place] [address]: [address] [place], [place] [id number] [phone] The home medications listed are only as [...] This Visit (last charted value for your 11/01/2020 visit) Hematology 11/01/2020 8:50 PM WBC: 6.1 K/uL -- Normal range between ( 3.9 and 10.0 ) RBC: 3.62 Million/uL -- Normal range between ( 3.93 and 5.22 ) Hct: 36.1 % -- Normal range between ( 34.1 and 44.9 ) Hgb: 12.4 Gram/dL -- Normal range between ( 11.2 and 15.7 ) Platelet Count: 218 K/uL -- Normal range between ( 163 and 369 ) MCH: 34.3 pg -- Normal range between ( 25.6 and 32.2 ) MCHC: 34.3 Gram/dL -- Normal range between ( 32.3 and 36.5 ) MCV: 99.7 fL -- Normal range between ( 79.0 and 94.8 ) Slide Review: No Eos %: 3.3 % -- Normal range between ( 1.0 and 7.0 ) [place] #: 0.38 K/uL -- Normal range between ( 0.24 and 0.82 ) Eos #: 0.20 K/uL -- Normal range between ( 0.04 and 0.54 ) [place] %: 6.2 % -- Normal range between ( 4.7 and 12.5 ) Baso %: 0.7 % -- Normal range between ( 0.0 and 1.0 ) Baso #: 0.04 K/uL -- Normal range between ( 0.01 and 0.08 ) RDW: 12.2 % -- Normal range between ( 11.6 and 14.4 ) Neut %: 49.9 % -- Normal range between ( 34.0 and 71.0 ) Neut #: 3.06 K/uL -- Normal range between ( 1.56 and 6.13 ) Lymph %: 39.7 % -- Normal range between ( 19.3 and 53.0 ) Lymph #: 2.43 K/uL -- Normal range between ( 1.18 and 3.74 ) MPV: 10.3 fL -- Normal range between ( 9.4 and 12.4 ) IG#: 0 x10(3)/uL IG%: 0 % -- Normal range between ( 0 and 1 ) Urinalysis 11/01/2020 8:07 PM Urine Nitrite: Negative Urine Leukocyte Esterase: Negative Urine Appearance: Clear Urine Glucose Dipstick: Negative Urine Blood Dipstick: Negative Urine Urobilinogen Dipstick: 0.2 EU/dL -- Normal range between ( 0.2 and 1.0 ) Urine Protein Dipstick: Negative Urine Color: Yellow Urine Ketones Dipstick: Negative Urine pH Dipstick: 7.0 -- Normal range between ( 6.0 and 8.0 ) Urine Bilirubin Dipstick: Negative mg/dL Urine Specific [place]: 1.008 -- Normal range between ( 1.005 and 1.030 ) Urine Type.: U CleanCatch Urine Culture if Indicated: Not Indicated General Chemistry 11/01/2020 8:50 PM Creatinine Level: 0.72 mg/dL -- Normal range [...] between ( 1.1 and 2.5 ) ALT: 16 Units/Liter -- Normal range between ( 12 and 78 ) AST: 12 Units/Liter -- Normal range between ( 5 and 37 ) Globulin: 3.3 Gram/dL -- Normal range between ( 1.5 and 4.5 ) Alk Phos: 82 Units/Liter -- Normal range between ( 27 and 136 ) Bun/Creatinine: 13.9 -- Normal range between ( 8.0 and 20.0 ) Calcium Level: 8.4 mg/dL -- Normal range between ( 8.5 and 10.1 ) eGFR : >60 mL/min/1.73m2 eGFR NonAfrican: >60 mL/min/1.73m2 Glucose Level: 80 mg/dL -- Normal range between ( 74 and 106 ) Blood Urea Nitrogen: 10 mg/dL -- Normal range between ( 7 and 22 ) Protein Total: 7.1 Gram/dL -- Normal range between ( 6.4 and 8.2 ) Albumin Level: 3.8 Gram/dL -- Normal range between ( 3.4 and 5.0 ) Ultrasound 11/01/2020 9:35 PM US Transvaginal Non Ob: US Transvaginal Non Ob Education Materials Ovarian Cyst An ovarian cyst is a fluid-filled sac on an ovary. The ovaries are organs that make eggs in women. Most ovarian cysts go away on their own and are not cancerous (are benign). Some cysts need treatment. Follow these instructions at home: ??? Take ayts-awh-mylfais and prescription medicines only as told by your doctor. ??? Do not drive or use heavy machinery while taking prescription pain medicine. ??? Get pelvic exams and Pap tests as often as told by your doctor. ??? Return [...] important. Contact a doctor if: ??? Your periods are: ? Late. ? Irregular. ? Painful. ??? Your periods stop. ??? You have pelvic pain that does not go away. ??? You have pressure on your bladder. ??? You have trouble making your bladder empty when you pee (urinate). ??? You have pain during sex. ??? You have any of the following in your belly (abdomen): ? A feeling of fullness. ? Pressure. ? Discomfort. ? Pain that does not go away. ? Swelling. ??? You feel sick most of the time. ??? You have trouble pooping (have constipation). ??? You are not as hungry as usual (you lose your appetite). ??? You get very bad acne. ??? You start to have more hair on your body and face. ??? You are gaining weight or losing weight without changing your exercise and eating habits. ??? You think you may be . Get help right away if: ??? You have belly pain that is very bad or gets worse. ??? You cannot eat or drink without throwing up (vomiting). ??? You suddenly get a fever. ??? Your period is a lot heavier than usual. This information is not intended to replace advice given to you by your health care provider. Make sure you discuss any questions you have with your health care provider. Document Revised: 04/12/2018 Document Reviewed: 10/01/2016 [facility] Patient Education ?? 2020 [employer] Emergency Awareness and Preventative Care STROKE [...] Assistance with quitting is available by contacting 0-098-KPPS-NOW. This is a free resource providing counseling, support, and referral. Or you may contact your personal physician. [place] Suicide Prevention Lifeline: The National Suicide Prevention [...] of a heart attack, DON???T DELAY. Call 9-1-1 immediately and seek help. If someone collapses, [...] was given the opportunity to ask questions. Patient/Netsuite Consultant Name: Patient/Netsuite Consultant Signature: Relationship to Patient: Clinician/Hospital Netsuite Consultant Signature: Please Provide a Telephone Number Where You Can Be Reached: Is it Permissible To Leave a Message? Date: Electronically signed by Jannette, [facility] Conversion Mechanical Field Engineer Cerner at 08/31/2022 4:58 PM CDT documented in this encounter Plan of Treatment Not on file documented as of this encounter Visit Diagnoses Not on filedocumented in this encounter Care Teams Japanese Interpreter Relationship Specialty Start Date End Date Alan Beyer MD [address] [place] [address] PCP - General Family Medicine 06/08/23 documented as of this encounter
--- OUTSIDE RECORDS SUMMARY | 2024-11-05 10:20 | XMS_ITS | Encounter Summary ---
Author Organization [employer] [facility] [employer] Address [address] [place] [address] Care Team Providers Care Wardrobe Assistant Name Role Phone Alan Beyer MD Primary Care Provider [phone] Encounter Details Date Type Department Care Team (Late st Contact Info) Description 09/14/2021 Transcribed Document [facility] [place] [address] ProviderJessenia MD [address] [place], [place] [id number] Social History Tobacco Use Types Packs/Day Years Used Date Smoking Tobacco: Never Assessed Comments Unknown Sex and Gender Information Value Date Recorded Sex Assigned at Not on file Legal Sex Female 4:28 PM CDT Gender Identity Not on file Sexual Orientation Not on file documented as of this encounter Miscellaneous Notes * Cerner Conversion Note - Jessenia Alvarez MD - 09/14/2021 5:25 PM CDT ED Discharge Entered On: 09/14/2021 17:26 EDT Performed On: 09/14/2021 17:25 EDT by VANDANA KHALIL RN-PATIENT CARE BEDSIDE NON-EXEMPT Discharge Process Patient Disposition : Discharge Personal Belongings With Patient : Yes Patient Education Completed : Yes Teaching Evaluation : Verbalizes understanding IV Discontinued : Yes Nursing Documentation Completed : Yes VANDANA KHALIL RN-PATIENT CARE BEDSIDE NON-EXEMPT - 09/14/2021 17:25 EDT ED Discharge Discharge To : Home with ambulatory/outpatient follow-up Mode Of Departure : Ambulatory Accompanied By : Spouse Discharge Instructions Reviewed With, Opportunity For Questions Given : Patient Prescriptions Given to Patient : No KHALIL, VANDANA, RN-PATIENT CARE BEDSIDE NON-EXEMPT - 09/14/2021 17:25 EDT Electronically signed by Trevon Bhatia Conversion System Administration Advisor Cerner at 08/31/2022 5:16 PM CDT documented in this encounter Plan of Treatment Not on file documented as of this encounter Visit Diagnoses Not on filedocumented in this encounter Care Teams Wardrobe Assistant Relationship Specialty Start Date End Date Alan Beyer MD [address] [place] [address] PCP - General Family Medicine 06/08/23 documented as of this encounter
--- OUTSIDE RECORDS SUMMARY | 2024-11-05 10:20 | XMS_ITS | Encounter Summary ---
Author Organization [employer] Address [address] [place] [address] Care Team Providers Care Customer Experience Professional Name Role Phone Alan Beyer MD Primary Care Provider Encounter Details Date Type Department Care Team (Late st Contact Info) Description 12/23/2020 Transcribed Document [facility] [place] [address] ProviderJessenia MD [address] [place], [place] [id number] Social History Tobacco Use Types Packs/Day Years Used Date Smoking Tobacco: Never Assessed Comments Unknown Sex and Gender Information Value Date Recorded Sex Assigned at Not on file Legal Sex Female 4:28 PM CDT Gender Identity Not on file Sexual Orientation Not on file documented as of this encounter Miscellaneous Notes * Cerner Conversion Note - Jessenia ProviderMD - 12/23/2020 1:50 PM CDT Electronically signed by [facility] Conversion Culinary Arts Instructor Cerner at 08/31/2022 5:10 PM CDT documented in this encounter Plan of Treatment Not on file documented as of this encounter Visit Diagnoses Not on filedocumented in this encounter Care Teams Customer Experience Professional Relationship Specialty Start Date End Date Alan Beyer MD [address] [place] [address] PCP - General Family Medicine 06/08/23 documented as of this encounter
--- OUTSIDE RECORDS SUMMARY | 2024-11-05 10:20 | XMS_ITS | Encounter Summary ---
Author Organization [employer] Address [address] [place] [address] Care Team Providers Care Senior Risk Analyst Name Role Phone Alan Beyer MD Primary Care Provider Encounter Details Date Type Department Care Team (Late st Contact Info) Description 12/12/2021 Transcribed Document [facility] [place] Family [place] [address] ProviderJessenia MD [address] [place], [place] [id number] Social History Tobacco Use Types Packs/Day Years Used Date Smoking Tobacco: Never Assessed Comments Unknown Sex and Gender Information Value Date Recorded Sex Assigned at Not on file Legal Sex Female 4:28 PM CDT Gender Identity Not on file Sexual Orientation Not on file documented as of this encounter Miscellaneous Notes * Cerner Conversion Note - Jessenia ProviderMD - 12/12/2021 10:01 AM CDT Broset Violence Assessment Entered On: 12/12/2021 10:52 EDT Performed On: 12/12/2021 10:15 EDT by Justin Montes Rn Broset Violence Assessment Broset Violence Checklist of Symptoms : None Broset Violence Symptoms Subtotal : 0 Broset Violence Symptoms Indicator : Low risk (0) Justin Montes Rn - 12/12/2021 10:51 EDT documented in this encounter Plan of Treatment Not on file documented as of this encounter Visit Diagnoses Not on filedocumented in this encounter Care Teams Senior Risk Analyst Relationship Specialty Start Date End Date Alan Beyer MD [address] [place] [address] PCP - General Family Medicine 06/08/23 documented as of this encounter
--- OUTSIDE RECORDS SUMMARY | 2024-11-05 10:20 | XMS_ITS | Encounter Summary ---
Author Organization [employer] Address [address] [place] [address] Care Team Providers Care Collar Cutter Name Role Phone Alan Beyer MD Primary Care Provider [phone] Encounter Details Date Type Department Care Team (Late st Contact Info) Description 06/05/2018 Transcribed Document [facility] [place] [facility] [place] [address] ProviderJessenia MD [address] [place] [id number] Social History Tobacco Use Types Packs/Day Years Used Date Smoking Tobacco: Never Assessed Comments Unknown Sex and Gender Information Value Date Recorded Sex Assigned at Not on file Legal Sex Female 4:28 PM CDT Gender Identity Not on file Sexual Orientation Not on file documented as of this encounter Miscellaneous Notes * Cerner Conversion Note - Jessenia Alvarez MD - 06/05/2018 12:43 PM BIOSTATISTICS PROFESSOR DATE OF PROCEDURE: PREOPERATIVE DIAGNOSIS(ES): 1. History of endometriosis. 2. Pelvic pain. 3. Left lower quadrant pain. 4. History of recurrent ovarian cyst. 5. Dysmenorrhea. 6. Dyspareunia. 7. Cystocele. POSTOPERATIVE DIAGNOSIS(ES): PROCEDURE: 1. Robotic assisted vaginal hysterectomy with left salpingo-oophorectomy. 2. Paravaginal repair. 3. Uterosacral vault suspension. 4. Fulguration of endometriosis. SURGEON: Benito Lozano DO SCHOOL TEACHER: MARY Peraza ESTIMATED BLOOD LOSS: Minimal. COMPLICATIONS: None immediate. DESCRIPTION OF PROCEDURE: Please note, patient provided informed consent. All pros and cons were discussed. She accepted all risks wholeheartedly and wished to proceed with the case. Patient was given preoperative antibiotics and DVT prophylaxis, taken to the operative suite, was placed in stirrups, prepped and draped usual fashion. EUA was performed. CHUCK retractor was placed. Bladder was catheterized with Maldonado catheter. Under sterile technique, using Veress needle hanging drop technique, we insufflated the abdomen and created pneumoperitoneum. Scope and trocar placed under visualization. Secondary ports placed suprapubically after transillumination. We visualized intra-abdominal pelvic contents. There was no perihepatic lesions. The gallbladder had been previously removed. The appendix appeared normal. It was away from the pelvis. The left ovary had an enlarged cyst. There was endometriosis grossly seen approximately stage III-IV in the deep cul-de-sac. After the robot was docked, I performed a procedure. I isolated the infundibulopelvic ligament on the left side, ligated down to the broad ligament to the level of the uterine artery. We preserved the right ovary per the patient's request. We dissected down through the mesosalpinx down to the level of the uterine artery, and the right tube was removed also. We secured the uterine vessels bilaterally, dissected down along each side of the uterus to the level of the uterosacral ligament. A bladder flap was created and pushed down out of the operative field. The vaginal cuff was then circumscribed and then the uterus, bilateral tubes and left ovary were delivered vaginally. The vaginal cuff was closed with the V-Loc suture x2. The uterosacral ligaments were plicated into the top of the vaginal cuff. The paravesical and paravaginal tissue was also plicated for support performing a paravaginal repair. There was endometriosis in the deep cul-de-sac. It was fulgurated with the PK unit. Copious irrigation was used. Irrigation was removed. Pneumoperitoneum was deflated with excellent hemostasis. The robot was then undocked. All instruments and laps were correct x2. Wounds were closed with Monocryl and Vicryl suture. Sterile dressing applied. Patient went to recovery room and admitted to my service. She is stable. Benito Lozano D.O. Dict: 06/05/2018 12:43:50 Trans: 06/05/2018 16:36:11 CC1: Benito Lozano D.O. documented in this encounter Plan of Treatment Not on file documented as of this encounter Visit Diagnoses Not on filedocumented in this encounter Care Teams Collar Cutter Relationship Specialty Start Date End Date Alan Beyer MD [address] [place] [address] PCP - General Family Medicine 06/08/23 documented as of this encounter
--- OUTSIDE RECORDS SUMMARY | 2024-11-05 10:20 | XMS_ITS | Encounter Summary ---
Author Organization [employer] Address [address] [place] [address] Care Team Providers Care Warehousing Technician Name Role Phone Alan Beyer MD Primary Care Provider [phone] Encounter Details Date Type Department Care Team (Late st Contact Info) Description 11/01/2020 Transcribed Document [facility] [place] Family Medicine [facility] [place] [address] ProviderJessenia MD [address] [place], [place] [phone] Social History Tobacco Use Types Packs/Day Years Used Date Smoking Tobacco: Never Assessed Comments Unknown Sex and Gender Information Value Date Recorded Sex Assigned at Not on file Legal Sex Female 4:28 PM CDT Gender Identity Not on file Sexual Orientation Not on file documented as of this encounter Miscellaneous Notes * Cerner Conversion Note - Jessenia ProviderMD - 11/01/2020 10:13 PM CDT Electronically signed by [facility] Conversion Security Systems Specialist Cerner at 08/31/2022 4:59 PM CDT documented in this encounter Plan of Treatment Not on file documented as of this encounter Visit Diagnoses Not on filedocumented in this encounter Care Teams Warehousing Technician Relationship Specialty Start Date End Date Alan Beyer MD [address] [place] [address] PCP - General Family Medicine 06/08/23 documented as of this encounter
--- OUTSIDE RECORDS SUMMARY | 2024-11-05 10:20 | XMS_ITS | Encounter Summary ---
Author Organization [employer] Address [address] [place] [address] Care Team Providers Care Flaker Tender Name Role Phone Alan Beyer MD Primary Care Provider [phone] Encounter Details Date Type Department Care Team (Late st Contact Info) Description 11/01/2020 Transcribed Document [facility] [place] Family Medicine [address] [place] [address] ProviderJessenia MD [address] [place] [address] Social History Tobacco Use Types Packs/Day Years Used Date Smoking Tobacco: Never Assessed Comments Unknown Sex and Gender Information Value Date Recorded Sex Assigned at Not on file Legal Sex Female 4:28 PM CDT Gender Identity Not on file Sexual Orientation Not on file documented as of this encounter Miscellaneous Notes * Cerner Conversion Note - Jessenia Alvarez MD - 11/01/2020 6:07 PM CDT Broset Violence Assessment Entered On: 11/01/2020 21:03 EDT Performed On: 11/01/2020 20:45 EDT by MITCH CRANE RN Broset Violence Assessment Broset Violence Checklist of Symptoms : None Broset Violence Symptoms Subtotal : 0 Broset Violence Symptoms Indicator : Low risk (0) MITCH CRANE RN - 11/01/2020 21:03 EDT documented in this encounter Plan of Treatment Not on file documented as of this encounter Visit Diagnoses Not on filedocumented in this encounter Care Teams Flaker Tender Relationship Specialty Start Date End Date Alan Beyer MD [address] [place] [address] PCP - General Family Medicine 06/08/23 documented as of this encounter
--- OUTSIDE RECORDS SUMMARY | 2024-11-05 10:20 | XMS_ITS | Encounter Summary ---
Author Organization [employer] Address [address] [place] [address] Care Team Providers Care Hide And Skin Colerer Name Role Phone Alan Beyer MD Primary Care Provider [phone] Encounter Details Date Type Department Care Team (Late st Contact Info) Description 06/05/2018 Transcribed Document [facility] [place] [address] ProviderJessenia MD [address], [place] [id number] Social History Tobacco Use Types Packs/Day Years Used Date Smoking Tobacco: Never Assessed Comments Unknown Sex and Gender Information Value Date Recorded Sex Assigned at Not on file Legal Sex Female 4:28 PM CDT Gender Identity Not on file Sexual Orientation Not on file documented as of this encounter Miscellaneous Notes * Cerner Conversion Note - Jessenia ProviderMD - 06/05/2018 11:45 AM GAS SYSTEMS WORKER [facility] Main OR IntraOp Summary Primary Physician: DORIS BRANCH DO Finalized Date/Time: 06/05/18 12:42:19 Pt. Name: REFUGIO BONDAE /Sex: 1980 Female Med Rec #: [id number] Physician: DORIS BRANCH DO Financial #: [id number] Pt. Type: O Room/Bed: [facility]/ Admit/Disch: 06/05/18 04:59:00 - Institution: [facility] [place] IntraOp Case Attendance Entry 1 Entry 2 Entry 3 Case Attendee DORIS BRANCH DO BROWNING, JANICE R, CAD INTERN JUANA GRACE, WINNIE Role Performed Surgeon/Proceduralist, CAD INTERN/Nurse Oil Burner Technician Physician assistant cross country coach First Time In 06/05/18 11:22:00 06/05/18 11:22:00 06/05/18 11:22:00 Time Out 06/05/18 12:51:00 06/05/18 12:51:00 06/05/18 12:51:00 Procedure Vaginal Hysterectomy Vaginal Hysterectomy Vaginal Hysterectomy Laparoscopic Roboti Laparoscopic Roboti Laparoscopic Roboti Other Attendee Superficial Wound Closed By: Last Modified By: Lizzeth Viramontes Gillenwater, Cheryl B, Lizzeth Viramontes, RN 06/05/18 12:42:09 RN 06/05/18 12:42:09 RN 06/05/18 12:42:09 Entry 4 Entry 5 Entry 6 Case Attendee Lizzeth Viramontes Brock, Deanna Hall, Marvin, improvement nurse Network Services Project Manager Role Performed Paving Block Cutter, First Scrub, First Scrub, Second Time In 06/05/18 11:22:00 06/05/18 11:22:00 06/05/18 11:22:00 Time Out 06/05/18 12:51:00 06/05/18 12:51:00 06/05/18 12:51:00 Procedure Vaginal Hysterectomy Vaginal Hysterectomy Vaginal Hysterectomy Laparoscopic Roboti Laparoscopic Roboti Laparoscopic Roboti Other Attendee Superficial Wound Closed By: Last Modified By: Lizzeth Viramontes Gillenwater, Cheryl B, Lizzeth Viramontes, RN 06/05/18 12:42:09 RN 06/05/18 12:42:09 RN 06/05/18 12:42:09 Entry 7 Entry 8 Case Attendee Luana Mireles, Carine Cage, RN Role Performed Network Services Project Manager, Ancillary Paving Block Cutter, First Time In 06/05/18 11:22:00 06/05/18 12:16:00 Time Out 06/05/18 12:51:00 06/05/18 12:51:00 Procedure Vaginal Hysterectomy Vaginal Hysterectomy Laparoscopic Roboti Laparoscopic Roboti Other Attendee LUNCH RELIEF Superficial Wound Closed By: Last Modified By: Lizzeth Viramontes Gillenwater, Cheryl B, RN 06/05/18 12:42:09 RN 06/05/18 12:42:09 [facility] IntraOp Case Attendance Audit 06/05/18 12:42:09 Jailer Chief: RAMIN Modifier: GILLECB 1 <+> Time Out 1 <*> Procedure Vaginal Hysterectomy Laparoscopic Roboti 2 <+> Time Out 2 <*> Procedure Vaginal Hysterectomy Laparoscopic Roboti 3 <+> Time Out 3 <*> Procedure Vaginal Hysterectomy Laparoscopic Roboti 4 <+> Time Out 4 <*> Procedure Vaginal Hysterectomy Laparoscopic Roboti 5 <+> Time Out 5 <*> Procedure Vaginal Hysterectomy Laparoscopic Roboti 6 <+> Time Out 6 <*> Procedure Vaginal Hysterectomy Laparoscopic Roboti 7 <+> Time Out 7 <*> Procedure Vaginal Hysterectomy Laparoscopic Roboti 8 <+> Time Out 8 <*> Procedure Vaginal Hysterectomy Laparoscopic Roboti 06/05/18 12:17:26 Jailer Chief: RAMIN Modifier: GILLECB 1 <*> Procedure Vaginal Hysterectomy Laparoscopic Roboti 2 <*> Procedure Vaginal Hysterectomy Laparoscopic Roboti 3 <*> Procedure Vaginal Hysterectomy Laparoscopic Roboti 4 <*> Procedure Vaginal Hysterectomy Laparoscopic Roboti 5 <*> Procedure Vaginal Hysterectomy Laparoscopic Roboti 6 <*> Procedure Vaginal Hysterectomy Laparoscopic Roboti 7 <+> Time In 7 <*> Procedure Vaginal Hysterectomy Laparoscopic Roboti <+> 8 Case Attendee <+> 8 Role Performed <+> 8 Time In <+> 8 Procedure <+> 8 Other Attendee 06/05/18 12:02:17 Jailer Chief: RAMIN Modifier: GILLECB 1 <*> Procedure Vaginal Hysterectomy Laparoscopic Roboti 2 <+> Time In 2 <*> Procedure Vaginal Hysterectomy Laparoscopic Roboti 3 <+> Time In 3 <*> Procedure Vaginal Hysterectomy Laparoscopic Roboti 4 <+> Time In 4 <*> Procedure Vaginal Hysterectomy Laparoscopic Roboti 5 <+> Time In 5 <*> Procedure Vaginal Hysterectomy Laparoscopic Roboti 6 <+> Time In 6 <*> Procedure Vaginal Hysterectomy Laparoscopic Roboti <+> 7 Case Attendee <+> 7 Role Performed <+> 7 Procedure [facility] IntraOp Case Times Entry 1 Patient In Room Time 06/05/18 11:22:00 Out Room Time 06/05/18 12:51:00 Anesthesia Start Time 06/05/18 11:22:00 Stop Time 06/05/18 12:51:00 Anesthesia Ready 06/05/18 11:22:00 Surgery / Procedure Times Start Time 06/05/18 11:45:00 Stop Time 06/05/18 12:41:00 Last Modified By: Lizzeth Viramontes RN 06/05/18 12:42:07 [facility] IntraOp Case Times Audit 06/05/18 12:42:07 Jailer Chief: PETEECB Modifier: GILLECB <+> 1 Out Room Time <+> 1 Stop Time <+> 1 Stop Time 06/05/18 11:45:34 Jailer Chief: GILLECB Modifier: GILLECB <+> 1 Start Time [facility] IntraOp Cautery Entry 1 ESU Identification Cautery Type Monopolar ESU ID Number [id number] ID Type Hospital Number Cautery Settings Cut Setting 30 Coag Setting 30 Blend Setting PURE ESU Grounding Pad Ground Pad Type Adult Grounding Pad Site Left thigh Grounding Pad Lizzeth Viramontes, Applied By RN Grounding Pad Site Warm, dry and intact Skin Condition Before Cautery Grounding Pad Site Unchanged, Warm, dry Skin Condition and intact After Cautery Last Modified By: Lizzeth Viramontes RN 06/05/18 12:02:50 [facility] IntraOp Communication Entry 1 Communication To Family/Significant other Comment FAMILY NOTIFED OF START OF PROCEDURE VIA WAITING ROOM ATTENDEE Communication By Lizzeth Viramontes RN Date and Time 06/05/18 12:01:00 Last Modified By: Lizzeth Viramontes RN 06/05/18 12:03:19 [facility] IntraOp Counts Verification Entry 1 Entry 2 Procedure Vaginal Hysterectomy Vaginal Hysterectomy Laparoscopic Roboti Laparoscopic Roboti Count Info Count Type Sponge, Sharps, Sponge, Sharps, Instrument, Miscellaneous Miscellaneous Counts Verification Baseline/pre-procedure Closure of cavity Sequence within a cavity Count Results If Incorrect or Waived complete the Counts Action Taken form: If Intentional Retention, complete the Intential Retention form: Counts Performed By Count Performed By Vero Sher Deanna (Scrub) Count Performed By Lizzeth Viramontes Gillenwater, Cheryl B, (RN) RN RN Last Modified By: Lizzeth Viramontes Gillenwater, Cheryl B, RN 06/05/18 12:03:53 RN 06/05/18 12:03:53 [facility] IntraOp Counts Final Entry 1 Procedure Vaginal Hysterectomy Laparoscopic Roboti Final Count Info Count Type Sponge, Sharps, Miscellaneous Counts Verification Skin Closure/end of Sequence procedure Count Results Correct, surgeon notified Counts Performed By Count Performed By Shivam Mojica, Surgical (Scrub) Network Services Project Manager Count Performed By Carine Grady RN (RN) Last Modified By: Lizzeth Viramontes RN 06/05/18 12:33:38 [facility] IntraOp Counts Final Audit 06/05/18 12:33:38 Jailer Chief: AMOLB Modifier: PETEECB 1 <*> Procedure Vaginal Hysterectomy Laparoscopic Roboti 1 <*> Count Performed By (Scrub) Vero Sher 1 <*> Count Performed By (RN) Shivam Mojica, Belting And Webbing Inspector 1 <+> Counts Verification Sequence [facility] IntraOp Cultures and Spec Summary Entry 1 Cultrures and Specimens Specimen Ordered: Yes Specimens Types Pathology Specimen(s) Labeled Pathology and Sent to Last Modified By: Lizzeth Viramontes RN 06/05/18 12:04:11 [facility] IntraOp Departure from OR Entry 1 Integumentary Assessment Integumentary WDL Assessment WDL Transfer/Handoff Transfer to PACU Phase I Handoff Method Bedside/Face to face Post-op Transport Bed (including Via specialty) Patient Transport ELIZABETH CARMONA, Accompanied by Ana M VILLA Cheryl B, RN Last Modified By: Lizzeth Viramontes RN 06/05/18 12:04:23 [facility] IntraOp Dressing and Packing Entry 1 Type Dressing Location abdomen Wound Dressing Item 2x2's, Skin adhesive, Steristrip Applied By JUANA GRACE PA-C Last Modified By: Lizzeth Viramontes RN 06/05/18 12:04:42 [facility] IntraOp Fire Risk Assessment Entry 1 Fire Info Surgical Site or 0- No Incision Above the Xyphoid Open O2 Source 0- No (Mask or Cannula) Available Ignition 1- Yes (ESU, Laser, Light Source) Fire Risk 1 Assessment Score Fire Score Fire Risk Yes Assessment Complete Fire Risk Lizzeth Viramontes, Assessment Verified RN By Fire Risk 06/05/18 12:04:00 Assessment Verified Date/Time Fire Risk Standard Fire Yes Safety Precautions Followed Last Modified By: Lizzeth Viramontes RN 06/05/18 12:04:54 [facility] IntraOp General Case Battery Plate Remover 1 Case Information OR OR 04 SJE Case Level 1 Room Verified Yes Wound Class II - Clean-Contaminated Specialty SN Gynecology Anesthesia Type General ASA Class 2 Diagnosis Preop Diagnosis PELVIC PAIN, HEAVY MENSES, PAINFUL BM ON PERIOD, DYSPAURENIA, ENODMETRIOSIS Postop Diagnosis DICTATED - SEE MD NOTES Last Modified By: Lizzeth Viramontes RN 06/05/18 12:11:39 [facility] IntraOp Intraoperative Assessment Entry 1 Handoff Method Other Valid History / Yes Physical in Chart Preoperative Yes Checklist Reviewed/Evaluated Allergies Reviewed Yes Patient is Latex No Sensitive Isolation Not applicable Precautions Noted Level of WDL Consciousness (WDL = Alert, Oriented to Person, Place, and Time) Skin Assessment Yes Verified Present Upon IVs Arrival to OR Last Modified By: Lizzeth Viramontes RN 06/05/18 12:12:15 [facility] IntraOp Intraoperative Equipment Entry 1 Type Monitoring Equipment Equipment Robot Intraop Monitoring Electrocardiogram Three lead placement (ECG) Electrode Placement Blood Pressure Non-Invasive BP Device Source Blood Pressure Arm, left upper Location Pulse Oximeter Hand, right Probe Site Antiembolic Devices Antiembolic Devices Sequential compression device, knee high Antiembolic Device Bilateral Location Scopes Photo/Video Documentation Photo Yes Video No Intraop Equipment SCDS ON AND INFLATED Comment PRIOR TO INDUCTION Last Modified By: Lizzeth Viramontes RN 06/05/18 12:13:04 [facility] IntraOp Medication Admin Entry 1 Medication/Irrigant Marcaine 0.5% w/ epinephrine 1:200,000 30ml vial - [id number] Route of LOCAL Administration Dose Dose 30 Unit of Measure ml Volume QS Administered By DORIS BRANCH DO Procedure Irrigation Last Modified By: Lizzeth Viramontes RN 06/05/18 12:13:34 [facility] IntraOp Patient Positioning Entry 1 Procedure Vaginal Hysterectomy Laparoscopic Roboti Body Position Lithotomy Left Arm Position Tucked and padded at side Right Arm Position Tucked and padded at side Left Leg Position Secured in Leg Perez Right Leg Position Secured in Leg Perez Feet Uncrossed Yes Pressure Points Yes Checked Positioning Devices Stirrups/Leg Perez, Boot, Other Device Position PATIENT POSTIONED ON BLUE FOAM PAD Positioned By ELIZABETH CARMONA CRNA, Lizzeth Viramontes RN, DORIS BRANCH DOSANJAY CHRIS L, PA-C Position Verified Positioning Yes Verified by Anesthesia Positioning Yes Verified by Surgeon Last Modified By: Lizzeth Viramontes RN 06/05/18 12:14:20 [facility] IntraOp Sign In Entry 1 Patient, Site, Yes Procedure Identified Surgical Consent Yes Confirmed Relevant Surgical Yes Documents Available Surgical Site N/A Marked by person performing procedure Anesthesia Machine Yes Check Completed Medication Checks Yes Completed Allergies Yes Airway Difficult No Airway/Aspiration Risk Difficult Yes Airway/Aspiration Intervention Equipment Available Blood Loss Risk Yes Blood Loss Yes Intervention Equipment Prepared and Ready Blood Identifiers Not applicable Verified Per Policy Hypothermia Risk Yes Warming Measures Yes Taken Last Modified By: Lizzeth Viramontes RN 06/05/18 12:14:30 [facility] Intra Op Sign Out Entry 1 RN Confirmation Surgical Yes Procedure(s) Identified Instrument, Sponge Yes and Sharps Counts Correct/Documented Equipment Problems N/A Documented Specimen Labeled Yes Correctly Urinary Catheter Yes Documented in IView Vale Patient Yes Recovery Concerns Reviewed with Anesthesia Provider, Surgeon and RN Vale Patient Yes Management Concerns Reviewed with Anesthesia Provider, Surgeon and RN Safety Checklist Yes Elements Complete? RN Sign Out Carine Grady RN Signature RN Sign Out 06/05/18 12:41:00 Signature Date/Time Plan of Care Outcome - Fire Risk OUTCOME STATEMENT: Goal met Patient is free from injury related to surgical fire Plan of Care Outcome - Pt Positioning OUTCOME STATEMENT: Goal met Absence of signs and symptoms of positioning injury. Plan of Care Outcome - Skin Prep OUTCOME STATEMENT: Goal met Intraoperative care is consistent with measures to prevent infection Plan of Care Outcome - Xray/Images OUTCOME STATEMENT: N/A Absence of observable signs or symptoms of radiation injury Plan of Care Outcome - Counts OUTCOME STATEMENT: Goal met Absence of signs and symptoms of injury related to extraneous objects Last Modified By: Lizzeth Viramontes RN 06/05/18 12:41:57 [facility] Intra Op Sign Out Audit 06/05/18 12:41:57 Jailer Chief: RAMIN Modifier: RAMIN 1 <*> RN Sign Out Signature Lizzeth Viramontes RN 1 <+> RN Sign Out Signature Date/Time [facility] IntraOp Skin Prep Entry 1 Procedure Vaginal Hysterectomy Laparoscopic Roboti Prescribed Yes Pre-Surgical Prep Completed Prep Area abdomen, vagina Intraop Prep Integumentary WDL Assessment WDL Prep Agents Chloraprep, Betadine solution, Betadine scrub Prep by Lizzeth Viramontes RN Hair Removal Methods No hair removal performed Last Modified By: Lizzeth Viramontes RN 06/05/18 12:15:00 [facility] IntraOp Surgical Procedures Entry 1 Procedure Vaginal Hysterectomy Laparoscopic Robotic Additional ROBOTIC LAPAROSCOPIC Procedure ASSISTED VAGINAL Description HYSTERECTOMY WITH LSO, FULGERATION OF ENDOMETRIOSIS Primary Procedure Yes Primary Surgeon DORIS BRANCH DO Start 06/05/18 11:45:00 Stop 06/05/18 12:41:00 Anesthesia Type General Specialty SN Gynecology Wound Class II - Clean-Contaminated Last Modified By: Lizzeth Viramontes RN 06/05/18 12:42:13 [facility] IntraOp Surgical Procedures Audit 06/05/18 12:42:13 Jailer Chief: PETEECIon Modifier: GILLECB <+> 1 Stop 06/05/18 12:30:47 Jailer Chief: AMOLB Modifier: GILLECB 1 <*> Procedure Vaginal Hysterectomy Laparoscopic Robotic 1 <*> Additional Procedure Description ROBOTIC LAPAROSCOPIC ASSISTED VAGINAL HYSTERECTOMY WITH LSO [facility] IntraOp Time Out Entry 1 Procedure to be Vaginal Hysterectomy Performed Laparoscopic Roboti Time Out Time Out Pause Time 06/05/18 11:44:00 All activity Yes suspended (unless life threatening emergency) Team Verbally Correct patient Confirms Information identity, Correct side and site are marked, Consent form is present and accurate, Agreement on the procedure to be done, Correct patient position, Relevant images/results properly labeled/appropriately displayed, Confirm antibiotics have been administered, Confirm the skin prep has dried, Confirm prosthesis/implant/devic e is present, Performed in location of procedure after prepped/draped, Performed before each procedure if multiple procedures, Reconcile problems if responses among team members differ Antibiotic Yes Prophylaxis Administered Or In Progress Within the Last 60 Minutes Beta Tuan N/A Administered Venous Yes Thromboembolism Prophylaxis Required Anticipated Critical Events Surgeon None expected Anesthesia Provider Patient specific concerns Nursing Assures Sterility of instruments, Equipment concerns or issues, Implant Availability Essential Imaging N/A Labeled and Displayed Last Modified By: Lizzeth Viramontes RN 06/05/18 11:47:28 Case Comments <None> Finalized By: Lizzeth Viramontes RN Document Signatures Signed By: Lizzeth Viramontes RN 06/05/18 12:42 documented in this encounter Plan of Treatment Not on file documented as of this encounter Visit Diagnoses Not on filedocumented in this encounter Care Teams Hide And Skin Colerer Relationship Specialty Start Date End Date Alan Beyer MD [address] [place] [address] PCP - General Family Medicine 06/08/23 documented as of this encounter
--- OUTSIDE RECORDS SUMMARY | 2024-11-05 10:20 | XMS_ITS | Encounter Summary ---
Author Organization [employer] Address [address] [address] Care Team Providers Care Airplane Charter Clerk Name Role Phone Alan Beyer MD Primary Care Provider Encounter Details Date Type Department Care Team (Late st Contact Info) Description 06/05/2018 Transcribed Document [facility] [place] Family Medicine [facility] [place] [address] ProviderJessenia MD [address] [place] [address] Social History Tobacco Use Types Packs/Day Years Used Date Smoking Tobacco: Never Assessed Comments Unknown Sex and Gender Information Value Date Recorded Sex Assigned at Not on file Legal Sex Female 4:28 PM CDT Gender Identity Not on file Sexual Orientation Not on file documented as of this encounter Miscellaneous Notes * Cerner Conversion Note - Jessenia ProviderMD - 06/05/2018 5:00 PM WEBBING WEAVER Chart Check - Review Order Profile Entered On: 06/05/2018 15:44 EST Performed On: 06/05/2018 15:44 EST by Shala Perez Rn Chart Check Chart Reviewed Date and Time : 06/05/2018 15:44 EST Powerplans Initiated/Discontinued as Appropriate : Yes All Active Orders Reviewed : Yes Shala Perez Rn - 06/05/2018 15:44 EST Electronically signed by Jannette [facility] Conversion Lump Maker Cerner at 08/31/2022 5:07 PM CDT documented in this encounter Plan of Treatment Not on file documented as of this encounter Visit Diagnoses Not on filedocumented in this encounter Care Teams Airplane Charter Clerk Relationship Specialty Start Date End Date Alan Beyer MD [address] [place] [address] PCP - General Family Medicine 06/08/23 documented as of this encounter
--- OUTSIDE RECORDS SUMMARY | 2024-11-05 10:20 | XMS_ITS | Encounter Summary ---
Author Organization [employer] In [employer]atives Address [address] [place] [address] Care Team Providers Care Fitness Plan Coordinator Name Role Phone Alan Beyer MD Primary Care Provider [phone] Encounter Details Date Type Department Care Team (Late st Contact Info) Description 10/17/2020 Transcribed Document [facility] [place] [facility] [place] [address] ProviderJessenia MD [address] [place], [place] [id number] Social History Tobacco Use Types Packs/Day Years [...] MD - 10/17/2020 3:05 PM CDT ED Triage Entered On: 10/17/2020 15:09 EDT Performed On: 10/17/2020 15:06 EDT by SHEILA LOPEZ RN ED Triage Across the Room Chief Complaint : c/o R flank pain x 1 week. denies dysuria. hx kidney stones, PCOS Triage Date/Time : 10/17/2020 15:06 EDT SHEILA LOPEZ RN - 10/17/2020 15:06 EDT DCP GENERIC CODE Tracking Acuity : 3 - Urgent Tracking Group : [facility] ED [facility] SHEILA LOPEZ RN - 10/17/2020 15:06 EDT Mode of Arrival : Ambulatory Transported to ED by : Private vehicle To Room Via : Ambulate Accompanied By : Friend ED Vital Signs : Document Height & Weight : Document ED Allergies : Document ED Reason for Visit : Document Tetanus Immunization : Unknown SHEILA LOPEZ RN - 10/17/2020 15:06 EDT Infectious Disease History Has the patient [...] Herpes, Influenza, Mononucleosis Tuberculosis Symptoms : None SHEILA LOPEZ RN - 10/17/2020 15:06 EDT Vital Signs ED Temperature Source : Temporal artery scanning Temperature Mode : Fahrenheit Temperature, Fahrenheit : 98.2 Deg F Clinical Temperature, C : 36.8 Deg C Oxygen Therapy Mode : Room air Peripheral Pulse Rate : 98 bpm Respiratory Rate : 17 Breaths/Min Systolic Blood Pressure : 147 mmHg (HI) Diastolic Blood Pressure : 87 mmHg Oxygen Saturation : 98 % SHEILA LOPEZ RN - 10/17/2020 15:06 EDT Allergy (As Of: 10/17/2020 15:09:31 EDT) Allergies (Active) acetaminophen-oxyCODONE Estimated Onset Date: Unspecified ; Comments: Comment 1: throws up and itching ; Created By: Breanna Ivey Rn; Reaction Status: Active ; Category: Drug ; Substance: acetaminophen-oxyCODONE ; Severity: Severe ; Updated By: Breanna Ivey Rn; Source: Patient ; Reviewed Date: 10/17/2020 15:06 EDT baclofen Estimated Onset Date: Unspecified ; Comments: Comment 1: hives and cant breath ; Created By: Breanna Ivey Rn; Reaction Status: Active ; Category: Drug ; Substance: baclofen ; Type: Allergy ; Updated By: Breanna Ivey Rn; Reviewed Date: 10/17/2020 15:06 EDT Bactrim Estimated Onset Date: Unspecified ; Comments: Comment 1: hives not breathing ; Created By: Breanna Ivey Rn; Reaction Status: Active ; Category: Drug ; Substance: Bactrim ; Type: Allergy ; Severity: Severe ; Updated By: Breanna Ivey Rn; Source: Patient ; Reviewed Date: 10/17/2020 15:06 EDT clindamycin Estimated Onset Date: Unspecified ; Comments: Comment 1: Hives, vomiting ; Created By: Talia Eason RN; Reaction Status: Active ; Category: Drug ; Substance: clindamycin ; Type: Allergy ; Severity: Severe ; Updated By: Talia Eason RN; Reviewed Date: 10/17/2020 15:06 EDT doxycycline Estimated Onset Date: Unspecified ; Comments: Comment 1: hives and projectile vomiting ; Created By: Breanna Ivey Rn; Reaction Status: Active ; Category: Drug ; Substance: doxycycline ; Type: Allergy ; Updated By: Breanna Ivey Rn; Reviewed Date: 10/17/2020 15:06 EDT escitalopram Estimated Onset Date: Unspecified ; Comments: Comment 1: unknown ; Created By: Breanna Ivey Rn; Reaction Status: Active ; Category: Drug ; Substance: escitalopram ; Type: Allergy ; Updated By: Breanna Ivey Rn; Reviewed Date: 10/17/2020 15:06 EDT fentaNYL Estimated Onset Date: Unspecified ; Comments: Comment 1: hallucinate and cry ; Created By: Breanna Ivey Rn; Reaction Status: Active ; Category: Drug ; Substance: fentaNYL ; Type: Allergy ; Updated By: Breanna Ivey Rn; Reviewed Date: 10/17/2020 15:06 EDT lidocaine topical 2% gel Estimated Onset Date: Unspecified ; Comments: Comment 1: severe swelling, itching, rash ; Created By: Breanna Ivey Rn; Reaction Status: Active ; Category: Drug ; Substance: lidocaine topical 2% gel ; Type: Allergy ; Updated By: Breanna Ivey Rn; Reviewed Date: 10/17/2020 15:06 EDT meperidine Estimated Onset Date: Unspecified ; Comments: Comment 1: hallucinations and angry ; Created By: Breanna Ivey Rn; Reaction Status: Active ; Category: Drug ; Substance: meperidine ; Type: Allergy ; Updated By: Breanna Ivey Rn; Reviewed Date: 10/17/2020 15:06 EDT morphine Estimated Onset Date: Unspecified ; Comments: Comment 1: severe itching ; Created By: Breanna Ivey Rn; Reaction Status: Active ; Category: Drug ; Substance: morphine ; Type: Allergy ; Updated By: Breanna Ivey Rn; Reviewed Date: 10/17/2020 15:06 EDT penicillin Estimated Onset Date: Unspecified ; Reactions: Hives ; Comments: Comment 1: hives Comment 2: Pt has tolerated cefoxitin in 06/30, 06/01, and trying cefazolin 05/01 ; Created By: JAME ZUNIGA PharmD; Reaction Status: Active ; Category: Drug ; Substance: penicillin ; Type: Allergy ; Updated By: JAME ZUNIGA PharmD; Reviewed Date: 10/17/2020 15:06 EDT tetanus immune globulin Estimated Onset Date: Unspecified ; Comments: Comment 1: adverse reaction I get tetanus and my body will swell up ; Created By: Breanna Ivey Rn; Reaction Status: Active ; Category: Drug ; Substance: tetanus immune globulin ; Type: Allergy ; Updated By: Breanna Ivey Rn; Reviewed Date: 10/17/2020 15:06 EDT Toradol Estimated Onset Date: Unspecified ; Comments: Comment 1: feels like a softball in chest and my chest goes numb ; Created By: Breanna Ivey Rn; Reaction Status: Active ; Category: Drug ; Substance: Toradol ; Type: Allergy ; Updated By: Breanna Ivey Rn; Reviewed Date: 10/17/2020 15:06 EDT Diagnosis Control ED (As Of: 10/17/2020 15:09:31 EDT) Problems(Active) Anxiety (SNOMED CT :14498453 ) Name of Problem: Anxiety ; Recorder: ERICKA ISSA RN; Confirmation: Confirmed ; Classification: Medical ; Code: [id number] ; Contributor System: [employer] ; Last Updated: 07/26/2015 22:28 EDT ; Life Cycle Date: 07/26/2015 ; Life Cycle Status: Active ; Vocabulary: SNOMED CT Endometriosis, vagina (SNOMED CT :73457690 ) Name of Problem: Endometriosis, vagina ; Recorder: Breanna Ivey RN; Confirmation: Confirmed ; Classification: Medical ; Code: [id number] ; Contributor System: Power[employer] ; Last Updated: 05/24/2018 10:54 EST ; Life Cycle Date: 05/24/2018 ; Life Cycle Status: Active ; Vocabulary: SNOMED CT Kidney stones (SNOMED CT :112023438 ) Name of Problem: Kidney stones ; Recorder: KAYY ANDREW; Confirmation: Confirmed ; Classification: Medical ; Code: 671177229 ; Contributor System: Power[employer] ; Last Updated: 06/06/2016 9:30 EST ; Life Cycle Date: 06/06/2016 ; Life Cycle Status: Active ; Vocabulary: SNOMED CT Migraine (SNOMED CT :40433580 ) Name of Problem: Migraine ; Recorder: ERICKA ISSA RN; Confirmation: Confirmed ; Classification: Medical ; Code: 66120344 ; Contributor System: PowerChart ; Last Updated: 07/26/2015 22:28 EDT ; Life Cycle Date: 07/26/2015 ; Life Cycle Status: Active ; Vocabulary: SNOMED CT S/P hysterectomy (SNOMED CT :040088235 ) Name of Problem: S/P hysterectomy ; Recorder: LEONID CASTANEDA RN; Confirmation: Confirmed ; Classification: Medical ; Code: 799039575 ; Contributor System: PowerChart ; Last Updated: 11/06/2019 20:08 EDT ; Life Cycle Date: 11/06/2019 ; Life Cycle Status: Active ; Vocabulary: SNOMED CT Shoulder pain, left (SNOMED CT :27339767 ) Name of Problem: Shoulder pain, left ; Recorder: Breanna Ivey RN; Confirmation: Confirmed ; Classification: Medical ; Code: [id number] ; Contributor System: [employer] ; Last Updated: 05/24/2018 10:53 EST ; Life Cycle Date: 05/24/2018 ; Life Cycle Status: Active ; Vocabulary: SNOMED CT Diagnoses(Active) Flank pain Date: 10/17/2020 ; Diagnosis Type: Reason For Visit ; Confirmation: Complaint of ; Clinical Dx: Flank pain ; Classification: Medical ; Clinical Service: Emergency medicine ; Code: PNED ; Probability: 0 ; Diagnosis Code: [id number] ED Height and Weight Height Source : Stated Height Entry Format : Brock Height, Feet : 5 ft(Converted to: 152 cm, 60 Inch) Height, Inches : 5 Inch(Converted to: 0 ft 5 Inch, 12.70 cm) Clinical Height : 165.1 cm Weight Source, ED : Critical estimated dosing weight Weight Entry Format : Brock Weight, Pounds : 162.7 lb Clinical Dosing Weight : 73.95 kg Body Surface Area (BSA) : 1.81 m2 Body Mass Index : 27.1 kg/m2 (HI) [place] Body Weight (IBW) : 56.59 kg SHEILA LOPEZ RN - 10/17/2020 15:06 EDT Electronically signed by [facility] Conversion Iuss Master Analyst Cerner at 08/31/2022 5:20 PM CDT documented in this encounter Plan of Treatment Not on file documented as of this encounter Visit Diagnoses Not on filedocumented in this encounter Care Teams Fitness Plan Coordinator Relationship Specialty Start Date End Date Alan Beyer MD [address] [place] [address] PCP - General Family Medicine 06/08/23 documented as of this encounter
--- OUTSIDE RECORDS SUMMARY | 2024-11-05 10:20 | XMS_ITS | Encounter Summary ---
Author Organization [employer] Address [address] [place] [address] Care Team Providers Care Finish Filer Name Role Phone Alan Beyer MD Primary Care Provider [phone] Encounter Details Date Type Department Care Team (Late st Contact Info) Description 09/14/2021 Transcribed Document [facility] [place] [address] ProviderJessenia MD [address] [place] [id number] Social History Tobacco Use Types Packs/Day Years Used Date Smoking Tobacco: Never Assessed Comments Unknown Sex and Gender Information Value Date Recorded Sex Assigned at Not on file Legal Sex Female 4:28 PM CDT Gender Identity Not on file Sexual Orientation Not on file documented as of this encounter Miscellaneous Notes * Cerner Conversion Note - Jessenia ProviderMD - 09/14/2021 5:26 PM CDT [address] [address] Visit Date/Time: 09/14/2021 17:26:14 CHARLINE BOND The above patient was seen in the hospital today and needs to be excused from work/school until Return to Work/School Date: 09/15/2021 documented in this encounter Plan of Treatment Not on file documented as of this encounter Visit Diagnoses Not on filedocumented in this encounter Care Teams Finish Filer Relationship Specialty Start Date End Date Alan Beyer MD [address] [place] [address] PCP - General Family Medicine 06/08/23 documented as of this encounter
--- OUTSIDE RECORDS SUMMARY | 2024-11-05 10:20 | XMS_ITS | Encounter Summary ---
Author Organization [employer] Address [address] [place] [address] Care Team Providers Care Power Press Tender Name Role Phone Alan Beyer MD Primary Care Provider [phone] Encounter Details Date Type Department Care Team (Late st Contact Info) Description 11/01/2020 Transcribed Document [facility] [place] [place] Family Medicine [facility] [place] [address] ProviderJessenia MD [address] [place] [address] Social History Tobacco Use Types Packs/Day Years Used Date Smoking Tobacco: Never Assessed Comments Unknown Sex and Gender Information Value Date Recorded Sex Assigned at Not on file Legal Sex Female 4:28 PM CDT Gender Identity Not on file Sexual Orientation Not on file documented as of this encounter Miscellaneous Notes * Cerner Conversion Note - Jessenia Alvarez MD - 11/01/2020 8:08 PM CDT Pain Assessment Entered On: 11/01/2020 23:13 EDT Performed On: 11/01/2020 23:12 EDT by MITCH CRANE RN Intervention Information: HYDROmorphone Performed by Marly Frias RN on 11/01/2020 20:51:00 EDT HYDROmorphone,0.5mg IV Push,Left Hand Pain Assessment Pain Assessment : Follow-up assessment Pain Scale Used : 0-10 Scale MITCH CRANE RN - 11/01/2020 23:12 EDT Pain Scale Intensity : 3 MITCH CRANE RN - 11/01/2020 23:12 EDT Image 4 - Images currently included in the form version of this document have not been included in the text rendition version of the form. documented in this encounter Plan of Treatment Not on file documented as of this encounter Visit Diagnoses Not on filedocumented in this encounter Care Teams Power Press Tender Relationship Specialty Start Date End Date Alan Beyer MD [address] [place] [address] PCP - General Family Medicine 06/08/23 documented as of this encounter
--- OUTSIDE RECORDS SUMMARY | 2024-11-05 10:20 | XMS_ITS | Encounter Summary ---
Author Organization [employer] Address [address] [place] [address] Care Team Providers Care Dental Financial Coordinator Name Role Phone Alan Beyer MD Primary Care Provider [phone] Encounter Details Date Type Department Care Team (Late st Contact Info) Description 11/01/2020 Transcribed Document [facility] [place] Family Medicine [facility] [place] [address] ProviderJessenia MD [address] [place], [place] [id number] Social History Tobacco Use Types Packs/Day Years [...] Alvarez MD - 11/01/2020 6:07 PM CDT ED Assessment Entered On: 11/01/2020 21:05 EDT Performed On: 11/01/2020 20:45 EDT by MITCH CRANE, GIS PROFESSOR Quick Look Assessment Level of Consciousness : Alert, Awake Affect/Behavior : Appropriate, Calm, Cooperative Orientation : Oriented x 4 Skin Temperature : Warm Skin Description : Dry, [place] MITCH CRANE RN - 11/01/2020 21:03 EDT ED General-Functional Assess Information Obtained From : Patient Preferred Communication Mode : Verbal Communication Barrier : None Primary Language : Azerbaijani Any Spiritual/Cultural Needs or Requests : No Currently in Unsafe Situation : No MITCH CRANE RN - 11/01/2020 21:03 EDT Social Habits Smoking Status : 4 or less cigarettes(less than 1/4 pack)/day in last 30 days Smokeless Tobacco Status : Never Desires Tobacco Cessation Medication : No Reason for No Tobacco Cessation Medication : Refuses FDA approved medications Desires Tobacco Cessation Calc : 1 MITCH CRANE RN - 11/01/2020 21:03 EDT Social History (As Of: 11/01/2020 21:05:10 EDT) Tobacco: 4 or less cigarettes(less than [...] Assessment WDL : WDL with exceptions (Comment: Patient having RLQ abdominal pain that has been 2 weeks [MITCH CRANE RN - 11/01/2020 21:03 EDT] ) Gastrointestinal Symptoms : Abdominal pain MITCH CRANE RN - 11/01/2020 21:03 EDT documented in this encounter Plan of Treatment Not on file documented as of this encounter Visit Diagnoses Not on filedocumented in this encounter Care Teams Dental Financial Coordinator Relationship Specialty Start Date End Date Alan Beyer MD [address] [place] [address] PCP - General Family Medicine 06/08/23 documented as of this encounter
--- OUTSIDE RECORDS SUMMARY | 2024-11-05 10:20 | XMS_ITS | Encounter Summary ---
Author Organization [employer] Address [address] [place] [address] Care Team Providers Care Bonding Agent Name Role Phone Alan Beyer MD Primary Care Provider [phone] Encounter Details Date Type Department Care Team (Late st Contact Info) Description 02/02/2019 Transcribed Document [facility] [place] [facility] [address] ProviderJessenia MD [address] [place] [address] Social History Tobacco Use Types Packs/Day Years Used Date Smoking Tobacco: Never Assessed Comments Unknown Sex and Gender Information Value Date Recorded Sex Assigned at Not on file Legal Sex Female 4:28 PM CDT Gender Identity Not on file Sexual Orientation Not on file documented as of this encounter Miscellaneous Notes * Jordan Conversion Note - Jessenia Alvarez MD - 02/02/2019 4:52 PM CDT ED Discharge Entered On: 02/02/2019 16:53 EDT Performed On: 02/02/2019 16:52 EDT by Karie Goodwin RN Discharge Process Patient Disposition : Discharge Personal Belongings With Patient : Yes Patient Education Completed : Yes Teaching Evaluation : Verbalizes understanding IV Discontinued : Yes Nursing Documentation Completed : Yes Karie Goodwin RN - 02/02/2019 16:52 EDT ED Discharge Discharge To : Home with ambulatory/outpatient follow-up Mode Of Departure : Ambulatory Accompanied By : Spouse Discharge Instructions Reviewed With, Opportunity For Questions Given : Patient Karie Goodwin RN - 02/02/2019 16:52 EDT documented in this encounter Plan of Treatment Not on file documented as of this encounter Visit Diagnoses Not on filedocumented in this encounter Care Teams Bonding Agent Relationship Specialty Start Date End Date Alan Beyer MD [address] [place] [address] PCP - General Family Medicine 06/08/23 documented as of this encounter
--- OUTSIDE RECORDS SUMMARY | 2024-11-05 10:20 | XMS_ITS | Encounter Summary ---
Author Organization [employer] Address [address] [place] [address] Care Team Providers Care Fuel Handler Name Role Phone Alan Beyer MD Primary Care Provider Encounter Details Date Type Department Care Team (Late st Contact Info) Description 09/14/2021 Transcribed Document [facility] [place] [facility], [facility] [place] [address] ProviderJessenia MD [address] [place] [address] Social History Tobacco Use [...] Note - Jessenia Alvarez MD - 09/14/2021 5:24 PM CDT [place] [id number] CHARLINE BOND :1980 Visit Time:09/14/2021 Your Visit Summary Your Care Team Primary Provider: GIANCARLO HALEY Secondary Provider: Your Diagnosis Chest pain, Chest pain Chest pain Hypertension Nausea Medical Information You may obtain a [...] do next Follow-Up Appointments Follow Up with [facility] (Find a Doc) When Within 2 to 3 days Where: [address] [place] [address]- Business (1) Follow Up with Follow up with primary care provider When Within 2 to 3 days Follow Up with Return to emergency department When Within As needed Comments Return if condition worsens, if you have increased pain, shortness of breath, fever, vomiting etc. Follow-up with your primary care physician and ion exchange operator for further evaluation and management Follow Up with [facility] When Within 2 to 3 days Comments Cardiology Where: [address] [place] [address] [facility] (1) Allergies Bactrim acetaminophen-oxyCODONE clindamycin Toradol [...] This Visit (last charted value for your 09/14/2021 visit) Hematology 09/14/2021 2:30 PM WBC: 7.3 K/uL -- Normal range between ( 3.9 and 10.0 ) RBC: 3.78 Million/uL -- Normal range between ( 3.93 and 5.22 ) Hct: 39.4 % -- Normal range between ( 34.1 and 44.9 ) Hgb: 13.2 Gram/dL -- Normal range between ( 11.2 and 15.7 ) Platelet Count: 207 K/uL -- Normal range between ( 163 and 369 ) MCH: 34.9 pg -- Normal range between ( 25.6 and 32.2 ) MCHC: 33.5 Gram/dL -- Normal range between ( 32.3 and 36.5 ) MCV: 104.2 fL -- Normal range between ( 79.0 and 94.8 ) Slide Review: No Eos %: 0.4 % -- Normal range between ( 1.0 and 7.0 ) Linn #: 0.37 K/uL -- Normal range between ( 0.24 and 0.82 ) Eos #: 0.03 K/uL -- Normal range between ( 0.04 and 0.54 ) Linn %: 5.0 % -- Normal range between ( 4.7 and 12.5 ) Baso %: 0.3 % -- Normal range between ( 0.0 and 1.0 ) Baso #: 0.02 K/uL -- Normal range between ( 0.01 and 0.08 ) RDW: 12.6 % -- Normal range between ( 11.6 and 14.4 ) Neut %: 67.2 % -- Normal range between ( 34.0 and 71.0 ) Neut #: 4.93 K/uL -- Normal range between ( 1.56 and 6.13 ) Lymph %: 26.6 % -- Normal range between ( 19.3 and 53.0 ) Lymph #: 1.95 K/uL -- Normal range between ( 1.18 and 3.74 ) MPV: 9.9 fL -- Normal range between ( 9.4 and 12.4 ) IG#: 0 x10(3)/uL IG%: 0 % -- Normal range between ( 0 and 1 ) General Chemistry 09/14/2021 1:02 PM Creatinine Level: 0.68 mg/dL -- Normal range between ( 0.55 and 1.02 ) Sodium Level: 139 mmol/L -- Normal range between ( 136 and 146 ) Potassium Level: 4.7 mmol/L -- Normal range between ( 3.5 [...] between ( 1.1 and 2.5 ) ALT: 19 Units/Liter -- Normal range between ( 12 and 78 ) AST: 21 Units/Liter -- Normal range between ( 5 and 37 ) Globulin: 3.6 Gram/dL -- Normal range between ( 1.5 and 4.5 ) Alk Phos: 88 Units/Liter -- Normal range between ( 27 and 136 ) Bun/Creatinine: 23.5 -- Normal range between ( 8.0 and 20.0 ) Calcium Level: 8.8 mg/dL -- Normal range between ( 8.5 and 10.1 ) eGFR : >60 mL/min/1.73m2 eGFR NonAfrican: >60 mL/min/1.73m2 Glucose Level: 101 mg/dL -- Normal range between ( 74 and 106 ) Blood Urea Nitrogen: 16 mg/dL -- Normal range between ( 7 and 22 ) Protein Total: 7.4 Gram/dL -- Normal range between ( 6.4 and 8.2 ) Albumin Level: 3.8 Gram/dL -- Normal range between ( 3.4 and 5.0 ) Cardiac Specific Markers 09/14/2021 2:54 PM Troponin I High Sensitivity: 27.5 pg/mL -- Normal range between ( 3.0 and 58.8 ) 09/14/2021 1:02 PM ProBNP: 66 pg/mL -- Normal range between ( 0 and 125 ) Endocrinology 09/14/2021 2:54 PM TSH: 0.606 mcInt Units/mL -- Normal range between ( 0.358 and 3.740 ) T4 Total: 8.5 mcg/mL -- Normal range between ( 4.8 and 13.9 ) 09/14/2021 1:02 PM HCG Serum Quant: <1.0 mIU/mL Diagnostic Radiology 09/14/2021 1:30 PM CR Chest 1 Vw Portable: CR [...] these instructions at home: Medicines ??? Take [id number] and prescription medicines only as told by [...] provider. Document Revised: 10/31/2018 Document Reviewed: 10/31/2018 [employer] Patient Education ?? 2020 [employer] Hypertension, Adult High blood pressure (hypertension) is when the force of blood pumping through the arteries is too strong. The arteries are the blood vessels that carry blood from the heart throughout the body. Hypertension forces the heart to work harder to pump blood and may cause arteries to become narrow or stiff. Untreated or uncontrolled hypertension can cause a heart attack, heart failure, a stroke, kidney disease, and other problems. A blood pressure reading consists of a [...] in your arteries as the heart relaxes. What are the causes? The exact cause of this condition is not known. There are some conditions that result in or are related to high blood pressure. What increases the risk? Some risk factors for high blood pressure are under your control. The following factors may make you more likely to develop this condition: ??? Smoking. ??? Having type 2 diabetes mellitus, high cholesterol, or both. ??? Not getting enough exercise or physical activity. ??? Being overweight. ??? Having too much fat, sugar, calories, or salt (sodium) in your diet. ??? Drinking too much alcohol. Some risk factors for high blood pressure may be difficult or impossible to change. Some of these factors include: ??? Having chronic kidney disease. ??? Having a family history [...] high blood pressure (hypertensive crisis) may cause: ??? Headache. ??? Anxiety. ??? Shortness of breath. ??? Nosebleed. ??? Nausea and vomiting. ??? Vision changes. ??? Severe chest pain. ??? Seizures. How is this diagnosed? This condition is diagnosed by measuring your blood pressure while you are seated, with your arm resting on a flat surface, your legs uncrossed, and your feet flat on the floor. The cuff of the blood pressure monitor will be placed directly against the skin of your upper arm at the level of your heart. It should be measured at least twice using the same arm. Certain conditions can cause a difference in blood pressure between your right and left arms. Certain factors can cause blood pressure readings to be lower or higher than normal for a short period of time: ??? When your blood pressure is higher when you are in a health care provider's office than when you are at home, this is called white coat hypertension. Most people with this condition do not need medicines. ??? When your blood pressure is higher at home than when you are in a health care provider's office, this is called masked hypertension. Most people with this condition may need medicines to control blood pressure. If you have a high blood pressure reading during one visit or you have normal blood pressure with other risk factors, you may be asked to: ??? Return on a different day to have your blood pressure checked again. ??? Monitor your blood pressure at home for 1 week or longer. If you are diagnosed with hypertension, you may have other blood or imaging tests to help your health care provider understand your overall risk for other conditions. How is this treated? This condition is treated by making healthy lifestyle changes, such as eating healthy foods, exercising more, and reducing your alcohol intake. Your health care provider may prescribe medicine if lifestyle changes are not enough to get your blood pressure under control, and if: ??? Your systolic blood pressure is above 130. ??? Your diastolic blood pressure is above 80. Your personal target blood pressure may vary depending on your medical conditions, your age, and other factors. Follow these instructions at home: Eating and drinking ??? Eat a diet that is high in fiber and potassium, and low in sodium, added sugar, and fat. An example eating plan is called the DASH (Dietary Approaches to Stop Hypertension) diet. To eat this way: ? Eat plenty of fresh fruits and vegetables. Try to fill one half of your plate at each meal with fruits and vegetables. ? Eat whole grains, such as whole-wheat pasta, brown rice, or whole-grain bread. Fill about one fourth of your plate with whole grains. ? Eat or drink low-fat dairy products, such as skim milk or low-fat yogurt. ? Avoid fatty cuts of meat, processed or cured meats, and poultry with skin. Fill about one fourth of your plate with lean proteins, such as fish, chicken without skin, beans, eggs, or tofu. ? Avoid pre-made and processed foods. These tend to be higher in sodium, added sugar, and fat. ??? Reduce your daily sodium intake. Most people with hypertension should eat less than 1,500 mg of sodium a day. ??? Do not drink alcohol if: [...] (44 mL). Lifestyle ??? Work with your health care provider to maintain a healthy body weight or to lose weight. Ask what an ideal weight is for you. ??? Get at least 30 minutes of exercise most days of the week. Activities may include walking, swimming, or biking. ??? Include exercise to strengthen your muscles (resistance exercise), such as Pilates or lifting weights, as part of your weekly exercise routine. Try to do these types of exercises for 30 minutes at least 3 days a week. ??? Do not use any products that contain nicotine or tobacco, such as cigarettes, e-cigarettes, and chewing tobacco. If you need help quitting, ask your health care provider. ??? Monitor your blood pressure at home as told by your health care provider. ??? Keep all follow-up visits as told by your health care provider. This is important. Medicines ??? Take anud-xso-ezbzhyr and prescription medicines only as told by your health care provider. Follow directions carefully. Blood pressure medicines must be taken as prescribed. ??? Do not skip doses of blood pressure medicine. Doing this puts you at risk for problems and can make the medicine less effective. ??? Ask your health care provider about side effects or reactions to medicines that you should watch for. Contact a health care provider if you: ??? Think you are having a reaction to a medicine you are taking. ??? Have headaches that keep coming back (recurring). ??? Feel dizzy. ??? Have swelling in your ankles. ??? Have trouble with your vision. Get help right away if you: ??? Develop a severe headache or confusion. ??? Have unusual weakness or numbness. ??? Feel faint. ??? Have severe pain in your chest or abdomen. ??? Vomit repeatedly. ??? Have trouble breathing. Summary ??? Hypertension is when the force of blood pumping through your arteries is too strong. If this condition is not controlled, it may put you at risk for serious complications. ??? Your personal target blood pressure may vary depending on your medical conditions, your age, and other factors. For most people, a normal blood pressure is less than 120/80. ??? Hypertension is treated with lifestyle changes, medicines, or a combination of both. Lifestyle changes include losing weight, eating a healthy, low-sodium diet, exercising more, and limiting alcohol. This information is not intended to replace advice given to you by your health care provider. Make sure you discuss any questions you have with your health care provider. Document Revised: 01/08/2019 Document Reviewed: 01/08/2019 [employer] Patient Education ?? 2020 [employer]. Emergency Awareness and Preventative Care STROKE is [...] Assistance with quitting is available by contacting 7-804-SWER-NOW. This is a free resource providing counseling, [...] was given the opportunity to ask questions. Patient/Rubber Compounder Formulator Name: Patient/Rubber Compounder Formulator Signature: Relationship to Patient: Clinician/Hospital Rubber Compounder Formulator Signature: Please Provide a Telephone Number Where You Can Be Reached: Is it Permissible To Leave a Message? Date: documented in this encounter Plan of Treatment Not on file documented as of this encounter Visit Diagnoses Not on filedocumented in this encounter Care Teams Fuel Handler Relationship Specialty Start Date End Date Alan Beyer MD [address] [place] [address] PCP - General Family Medicine 06/08/23 documented as of this encounter
--- OUTSIDE RECORDS SUMMARY | 2024-11-05 10:20 | XMS_ITS | Encounter Summary ---
Author Organization [employer] Address [address] [place] [address] Care Team Providers Care Operations Lieutenant Name Role Phone Alan Beyer MD Primary Care Provider [phone] Encounter Details Date Type Department Care Team (Late st Contact Info) Description 01/06/2019 Transcribed Document [facility] [place] [address] ProviderJessenia MD [address] [place] [address] Social History Tobacco Use Types Packs/Day Years Used Date Smoking Tobacco: Never Assessed Comments Unknown Sex and Gender Information Value Date Recorded Sex Assigned at Not on file Legal Sex Female 4:28 PM CDT Gender Identity Not on file Sexual Orientation Not on file documented as of this encounter Miscellaneous Notes * Cerner Conversion Note - Jessenia Alvarez MD - 01/06/2019 1:02 PM CDT TESS Entered On: 01/06/2019 13:02 EDT Performed On: 01/06/2019 13:02 EDT by TETO MCKNIGHT PA KASPER Indication of use for OOCS : Acute Injury TESS Result : Report Reviewed Patient cancelled on OOCS : Yes TESS : . TETO MCKNIGHT PA - 01/06/2019 13:02 EDT documented in this encounter Plan of Treatment Not on file documented as of this encounter Visit Diagnoses Not on filedocumented in this encounter Care Teams Operations Lieutenant Relationship Specialty Start Date End Date Alan Beyer MD [address] [place] [address] PCP - General Family Medicine 06/08/23 documented as of this encounter
--- OUTSIDE RECORDS SUMMARY | 2024-11-05 10:20 | XMS_ITS | Encounter Summary ---
Author Organization [employer] Address [address] [place] [address] Care Team Providers Care Jewelry Cutter Name Role Phone Alan Beyer MD Primary Care Provider [phone] Encounter Details Date Type Department Care Team (Late st Contact Info) Description 06/05/2018 Transcribed Document [facility] [place] [facility] [place] [address] ProviderJessenia MD [address] [place] [address] Social History Tobacco Use Types Packs/Day Years Used Date Smoking Tobacco: Never Assessed Comments Unknown Sex and Gender Information Value Date Recorded Sex Assigned at Not on file Legal Sex Female 4:28 PM CDT Gender Identity Not on file Sexual Orientation Not on file documented as of this encounter Miscellaneous Notes * Cerner Conversion Note - Jessenia ProviderMD - 06/05/2018 9:26 AM MANAGER CORPORATE COMMUNICATIONS Pre Procedure Adult Entered On: 06/05/2018 9:28 EST Performed On: 06/05/2018 9:26 EST by Raquel Saeed Rn-Traveler Height and Weight, Clinical Dosing Height Source : Stated Height Entry Format : [place] Height, Feet : 5 ft(Converted to: 152 cm, 60 Inch) Height, Inches : 5 Inch(Converted to: 0 ft 5 Inch, 12.70 cm) Clinical Height : 165.1 cm Weight Source : Standing scale Weight Entry Format : [place] Clinical Dosing Weight : 75 kg Weight, Pounds : 165 lb Body Surface Area (BSA) : 1.82 m2 Body Mass Index : 27.5 kg/m2 (HI) Dora Body Weight : 57 kg Raquel Saeed Rn-Traveler - 06/05/2018 9:26 EST Health Histories Smoking Status : 10 or more cigarettes (1/2 pack or more)/day in last 30 days Smokeless Tobacco Status : Refused tobacco status screen Desires Tobacco Cessation Medication : No Reason for No Tobacco Cessation Medication : Refuses FDA approved medications Raquel Saeed Rn-Traveler - 06/05/2018 9:26 EST Social History (As Of: 06/05/2018 09:28:03 EST) Tobacco: 10 or more cigarettes (1/2 [...] Region : No Tuberculosis Symptoms : None Raquel Saeed Rn-Traveler - 06/05/2018 9:26 EST Anesthesia/Transfusion History Family History of Anesthesia Reaction : No prior transfusion(s) Blood Transfusion Acceptable to Patient : Yes Transfusion History : Prior anesthesia reaction Type of Anesthesia Reaction : Excessive nausea/vomiting Family History of Anesthesia Reaction : None Raquel Saeed Rn-Traveler - 06/05/2018 9:26 EST Functional Assessment Living Situation : Home Patient Lives With : Significant other(s) Persons Assisting Patient at Home : Parent(s), Spouse Sensory Deficits : None HARRISON Hx Falls Immediate/Within 3 Months : No Current Home Treatments : None Raquel Saeed Rn-Traveler - 06/05/2018 9:26 EST Psychosocial History Do You Have a History of the Following? : Anxiety Currently in Unsafe Situation : No Tried to Harm Yourself in the Past? : No Thoughts of Harming/Killing Yourself : No Raquel Saeed Rn-Traveler - 06/05/2018 9:26 EST Advance Directive Patient has Advance Directive *Q : No, patient refuses Advance Directive information Raquel Saeed Rn-Traveler - 06/05/2018 9:26 EST General Info Arrived From : Home Want Family/Rep/Phys Notified of Admit : No Emergency Contact #1 : dionne Emergency Contact #1 Emergency Contact #1 Relationship : beau Emergency Contact #2 : bette Emergency Contact #2 Emergency Contact #2 Relationship : beau Primary Language : Urdu Preferred Communication Mode : Verbal Communication Barrier : Raquel Weir Rn-Traveler - 06/05/2018 9:26 EST Sleep Apnea Risk Assmt Hx of [...] Circumference Greater Than 40 cm : No Raquel Saeed Rn-Traveler - 06/05/2018 9:26 EST Spenser Scale Spenser Sensory Perception : No impairment Spenser Moisture : Rarely moist Spenser Activity : Walks frequently Spenser Mobility : No limitation Spenser Nutrition : Excellent Spenser Friction and Shear : No apparent problem Spenser Score : 23 Raquel Saeed Rn-Traveler - 06/05/2018 9:26 EST Fall Risk Scales ABCs Fall Injury Risk Identification : Surgery ABC Fall Injury Risk : Moderate to high injury risk HARRISON Hx Falls Immediate/Within 3 Months : No Harrison Secondary Diagnosis : Yes HARRISON Use of Ambulatory Aid : None HARRISON IV Therapy or IV Access : Yes Harrison Gait/Transferring : Normal, bedrest, immobile Harrison Mental Status : Oriented to own ability Harrison Fall Risk Score : 35 HARRISON Fall Scale Risk Level : 25-45 Medium Risk [place] Fall Interventions : Non-slip footwear, Wheels locked Barriers to Learning : None evident Raquel Saeed Rn-Traveler - 06/05/2018 9:26 EST Valuables and Belongings Valuables and Belongings : Clothing Clothing : Common streetwear Clothing Disposition : With family Raquel Saeed Rn-Traveler - 06/05/2018 9:26 EST Electronically signed by Trevon Bhatia Conversion Bander And Cellophaner Machine Cerner at 08/31/2022 5:23 PM CDT documented in this encounter Plan of Treatment Not on file documented as of this encounter Visit Diagnoses Not on filedocumented in this encounter Care Teams Jewelry Cutter Relationship Specialty Start Date End Date Alan Beyer MD [address] [place] [address] PCP - General Family Medicine 06/08/23 documented as of this encounter
--- OUTSIDE RECORDS SUMMARY | 2024-11-05 10:20 | XMS_ITS | Encounter Summary ---
Author Organization [employer] Address [address] [place] [address] Care Team Providers Care Farrowing Manager Name Role Phone Alan Beyer MD Primary Care Provider [phone] Encounter Details Date Type Department Care Team (Late st Contact Info) Description 01/06/2019 Transcribed Document [facility] [place] [facility] [address] ProviderJessenia MD [address] [place] [address] Social History Tobacco Use Types Packs/Day Years Used Date Smoking Tobacco: Never Assessed Comments Unknown Sex and Gender Information Value Date Recorded Sex Assigned at Not on file Legal Sex Female 4:28 PM CDT Gender Identity Not on file Sexual Orientation Not on file documented as of this encounter Miscellaneous Notes * Cerner Conversion Note - Jessenia Alvarez MD - 01/06/2019 1:36 PM CDT ED Discharge Entered On: 01/06/2019 13:36 EDT Performed On: 01/06/2019 13:36 EDT by Luis Choudhury Rn Discharge Process Patient Disposition : Discharge Personal Belongings With Patient : Yes Teaching Evaluation : Verbalizes understanding IV Discontinued : Not applicable IV Therapy Comment : Knee immobilizer placed with NV checks WNL and positive s/m noted verb and noted. Luis Choudhury, Rn - 01/06/2019 13:36 EDT Electronically signed by Trevon Bhatia Conversion Oil [employer]inery Process Technician Cerner at 08/31/2022 5:18 PM CDT documented in this encounter Plan of Treatment Not on file documented as of this encounter Visit Diagnoses Not on filedocumented in this encounter Care Teams Farrowing Manager Relationship Specialty Start Date End Date Alan Beyer MD [address] [place] [address] PCP - General Family Medicine 06/08/23 documented as of this encounter
--- OUTSIDE RECORDS SUMMARY | 2024-11-05 10:20 | XMS_ITS | Encounter Summary ---
Author Organization [employer] Address [address] [place] [address] Care Team Providers Care Nuclear Medicine Specialist Name Role Phone Alan Beyer MD Primary Care Provider [phone] Encounter Details Date Type Department Care Team (Late st Contact Info) Description 11/01/2020 Transcribed Document [facility] [place] [address] [place] [address] ProviderJessenia MD [address] [place] [address] Social History Tobacco Use Types Packs/Day Years Used Date Smoking Tobacco: Never Assessed Comments Unknown Sex and Gender Information Value Date Recorded Sex Assigned at Not on file Legal Sex Female 4:28 PM CDT Gender Identity Not on file Sexual Orientation Not on file documented as of this encounter Miscellaneous Notes * Cerner Conversion Note - Jessenia Alvarez MD - 11/01/2020 10:56 PM CDT [address] [place] [address] PERSON INFORMATION Name CHARLINE BOND Age 39 Years 1980 Sex Female Language Serbian PCP RHIANNA MARTIN, -CLAUDIO Marital Status Med Service Emergency Medicine Acct# Arrival 11/01/2020 18:07:00 Visit Reason Abdominal pain; Abdominal pain; ABD PAIN Acuity 3 - Urgent LOS 000 04:49 Depart Date: 00:00 AM Address: [address] [place] [id number] Comment: PROVIDER INFORMATION Provider Role Assigned Unassigned ZAIDA FRANCIS PA-C ED Physician 11/01/2020 20:00:59 MITCH CRANE, SUPERVISOR IRRIGATION Nurse 11/01/2020 20:18:31 DIAGNOSIS Abdominal pain; Right ovarian cyst PHYS DOC NOTES VITALS INFORMATION Vital Sign Triage Latest Temp Source Temporal artery scanning Temporal artery scanning Temp Mode Fahrenheit Fahrenheit Temp Fahrenheit 96.9 Deg F 96.9 Deg F Temp Celsius 02 Sat 99 % 99 % Respiratory Rate 20 Breaths/Min 20 Breaths/Min Peripheral Pulse Rate 105 bpm 105 bpm Apical Heart Rate Blood Pressure 143 mmHg / 102 mmHg 143 mmHg / 102 mmHg Comment: MEDICAL INFORMATION Allergy Info: fentaNYL; acetaminophen-oxyCODONE; Toradol; Bactrim; escitalopram; lidocaine topical 2% gel; tetanus immune globulin; baclofen; morphine; penicillin; clindamycin; doxycycline; meperidine Medications: Comment: DISCHARGE INFORMATION Discharge Disposition: Discharge Location: PATIENT EDUCATION INFORMATION Instructions: Ovarian Cyst, [id number] Follow up: With: Address: When: RHIANNA PRUITTNTOSH [address] [place], [place] [id number] Business (1) Within 2 to 3 days Comments: Appointment with your GRAVEL WEIGHER. Take medications as directed. Stay home, wear your mask, and practice self distancing. Return to the ER if symptoms worsen or persist. The following medications have been prescribed to you today: Prescriptions (1) Active diclofenac sodium 75 mg oral delayed release tablet 75 mg = 1 Tab, DR Tab, BID, Oral, 5 Day(s), 10 Tab, 0 refill(s), Route to Pharmacy Electronically, [place] [id number] Comment: Electronically signed by Jannette [facility] Conversion Crusher Supervisor Cerner at 08/31/2022 5:25 PM CDT documented in this encounter Plan of Treatment Not on file documented as of this encounter Visit Diagnoses Not on filedocumented in this encounter Care Teams Nuclear Medicine Specialist Relationship Specialty Start Date End Date Alan Beyer MD [address] [place] [address] PCP - General Family Medicine 06/08/23 documented as of this encounter
--- OUTSIDE RECORDS SUMMARY | 2024-11-05 10:20 | XMS_ITS | Encounter Summary ---
Author Organization [employer] Address [address] [place] [address] Care Team Providers Care Buffing Wheel Operator Name Role Phone Alan Beyer MD Primary Care Provider [phone] Encounter Details Date Type Department Care Team (Late st Contact Info) Description 12/14/2018 Transcribed Document [facility] [place] [address] ProviderJessenia MD [address] [place] [address] Social History Tobacco Use Types Packs/Day Years Used Date Smoking Tobacco: Never Assessed Comments Unknown Sex and Gender Information Value Date Recorded Sex Assigned at Not on file Legal Sex Female 4:28 PM CDT Gender Identity Not on file Sexual Orientation Not on file documented as of this encounter Miscellaneous Notes * Cerner Conversion Note - Jessenia Alvarez MD - 12/14/2018 1:11 PM CDT [place] [id number] CHARLINE BOND :1980 Visit Time:12/14/2018 Your Visit Summary Your Care Team Admitting Physician - PRIYA, JAMAR PAYNE MD-EMR Attending Physician - JAMAR BREWER MD-EMR Primary Care Physician - JORGE LUIS CAMPBELL NP-[facility] Referring Physician - PRIYA, SELF REFERRED [...] please contact the Patient Resource Center at [phone]. Follow Up with JORGE LUIS CAMPBELL When Within 2 to 3 days Where: [address] [place] [address]- Business (1) Allergies Bactrim acetaminophen-oxyCODONE clindamycin Toradol baclofen doxycycline escitalopram fentaNYL lidocaine topical 2% gel meperidine morphine penicillin tetanus immune globulin Immunizations This Visit No Immunizations Found Medications What How Much When Instructions Next Dose New acetaminophen-hydrocodone (Banks 5 mg-325 mg oral tablet) 1-2 tabs Oral Every 6 Hours as needed for as needed for pain Printed Prescription New nabumetone (nabumetone 500 mg oral tablet) 1 Tablet(s) Oral Two Times A Day as needed for Pain Duration: 4 Day(s) Pickup at [place] [address] New ondansetron (Zofran ODT 4 mg oral tablet, disintegrating) 1 Tablet(s) Oral Three Times A Day as needed for Nausea/Vomiting Pickup at [facility] Pharmacy Information [facility]: [address] [place], [place] [id number] [phone] The home medications listed are only as [...] range between ( 1.0 and 7.0 ) [place] #: 0.42 K/uL -- Normal range between ( 0.24 and 0.82 ) [place] #: 0.05 K/uL -- Normal range between ( 0.04 and 0.54 ) [place] %: 5.9 % -- Normal range between [...] Urine Bilirubin Dipstick: Negative mg/dL Urine Specific [place]: 1.020 -- Normal range between ( 1.005 [...] Rhubarb. ? Beets. ? Potato chips and haitian fries. ? Nuts. ??? If you regularly take a diuretic medicine, make sure to eat at least 1???2 fruits or vegetables high in potassium each day. These include: ? Avocado. ? Banana. ? [place], prune, carrot, or tomato juice. ? Baked [...] Casseroles. Pizza. Lasagna. Frozen meals. Potato chips. Chinese fries. Summary ??? You can reduce your [...] 08/25/2011 Document Revised: 04/10/2017 Document Reviewed: 04/10/2017 [employer] Patient Education ?? 2019 [employer]. Emergency Awareness and Preventative Care STROKE is [...] Assistance with quitting is available by contacting 0-943-SRMO-NOW. This is a free resource providing counseling, [...] was given the opportunity to ask questions. Patient/Special Warfare Combatant Crewman Name: Patient/Special Warfare Combatant Crewman Signature: Relationship to Patient: Clinician/Hospital Special Warfare Combatant Crewman Signature: Please Provide a Telephone Number Where You Can Be Reached: Is it Permissible To Leave a Message? Date: Electronically signed by Interface, [facility] Conversion Bottom Turning Lathe Turner Cerner at 08/31/2022 5:18 PM CDT documented in this encounter Plan of Treatment Not on file documented as of this encounter Visit Diagnoses Not on filedocumented in this encounter Care Teams Buffing Wheel Operator Relationship Specialty Start Date End Date Alan Beyer MD [address] [place], [place] [id number] PCP - General Family Medicine 06/08/23 documented as of this encounter
--- OUTSIDE RECORDS SUMMARY | 2024-11-05 10:20 | XMS_ITS | Encounter Summary ---
Author Organization [employer] Address [address] [place] [address] Care Team Providers Care Heavy Equipment Rental Manager Name Role Phone Alan Beyer MD Primary Care Provider [phone] Encounter Details Date Type Department Care Team (Late st Contact Info) Description 10/17/2020 Transcribed Document [facility] [place] [facility] [place] [address] ProviderJessenia MD [address] [place] [address] Social History Tobacco Use Types [...] Alvarez MD - 10/17/2020 3:05 PM CDT [place] Suicide Severity Rating Scale (C-SSRS) Entered On: 10/17/2020 18:52 EDT Performed On: 10/17/2020 18:50 EDT by Oksana Rodriguez RN [place] Suicide Severity Rating Scale (C-SSRS) CSSRS Past Month Wish to be : No CSSRS Past Month Suicidal Thoughts : No CSSRS Lifetime Suicide Behavior : No Suicide Severity Rating Score : 0 Suicide Severity Rating : No Additional Care Required at this time Oksana Rodriguez RN - 10/17/2020 18:50 EDT Electronically signed by Jannette [facility] Conversion Computer Language Coder Cerner at 08/31/2022 5:10 PM CDT documented in this encounter Plan of Treatment Not on file documented as of this encounter Visit Diagnoses Not on filedocumented in this encounter Care Teams Heavy Equipment Rental Manager Relationship Specialty Start Date End Date Alan Beyer MD [address] [place] [address] PCP - General Family Medicine 06/08/23 documented as of this encounter
--- OUTSIDE RECORDS SUMMARY | 2024-11-05 10:20 | XMS_ITS | Encounter Summary ---
Author Organization [employer] Address [address] [place] [address] Care Team Providers Care Maintenance Shop Manager Name Role Phone Alan Beyer MD Primary Care Provider [phone] Encounter Details Date Type Department Care Team (Late st Contact Info) Description 09/14/2021 Transcribed Document [facility] [place] [facility] [place] [address] ProviderJessenia MD [address] [place], [place] [address] Social History Tobacco Use Types Packs/Day Years [...] MD - 09/14/2021 12:35 PM CDT ED Assessment Entered On: 09/14/2021 13:19 EDT Performed On: 09/14/2021 13:16 EDT by VANDANA KHALIL RN-PATIENT CARE BEDSIDE NON-EXEMPT ED Quick Look Assessment Level of Consciousness : Alert Affect/Behavior : Appropriate, Calm, Cooperative Orientation : Oriented x 4 Skin Temperature : Warm Skin Description : Normal for ethnicity VANDANA KHALIL RN-PATIENT CARE BEDSIDE NON-EXEMPT - 09/14/2021 13:16 EDT ED General-Functional Assess Preferred Communication Mode : Verbal Communication Barrier : None Primary Language : Greek Any Spiritual/Cultural Needs or Requests : No Currently in Unsafe Situation : No VANDANA KHALIL RN-PATIENT CARE BEDSIDE NON-EXEMPT - 09/14/2021 13:16 EDT Social Habits Smoking Status : 4 or less cigarettes(less than 1/4 pack)/day in last 30 days Smokeless Tobacco Status : Never Desires Tobacco Cessation Medication : No Reason for No Tobacco Cessation Medication : Refuses FDA approved medications Desires Tobacco Cessation Calc : 1 VANDANA KHALIL RN-PATIENT CARE [facility] NON-EXEMPT - 09/14/2021 13:16 EDT Social History (As Of: 09/14/2021 13:19:59 EDT) Tobacco: 4 or less cigarettes(less than [...] 05/24/2018 10:39:04 EST by Breanna Ivey, RN) Total Drinks/Week: 2. Date/Time of Last Drink: 1 week ago. Alcohol Use Frequency Monthly. (Last Updated: 07/13/2021 14:43:49 EST by Martita Skinner RN-PATIENT CARE [facility] NON-EXEMPT) Alcohol Use History Yes. Days/Week: 7. # Drinks/Day: 1. Total Drinks/Week: 7. Date/Time of Last Drink: 09/12/21. Use in Last 12 Months: Yes. Alcohol Use Frequency Socially. (Last Updated: 09/14/2021 13:17:49 EDT by VANDANA KHALIL RN-PATIENT CARE [facility] NON-EXEMPT) Substance Abuse: Drug Use Hx: No. Use in Last 12 Months: No. (Last Updated: 07/26/2015 22:29:17 EDT by ERICKA ISSA RN) Drug Use Hx: No. Use in Last 12 Months: No. (Last Updated: 05/24/2018 10:39:04 EST by Breanna Ivey, RN) Nutrition/Health: Regular (Last Updated: 05/24/2018 10:39:04 EST by Breanna Ivey, RN) Cardiovascular ASMT, ED Cardiovascular Assessment WDL : WDL with exceptions (Comment: Pt reports chest pain x1 hr tat radiates down left arm and neck into back. [VANDANA KHALIL RN-PATIENT CARE BEDSIDE NON-EXEMPT - 09/14/2021 13:16 EDT] ) Cardiovascular Symptoms : Chest pain at rest, Chest pain with activity Heart Rhythm : Regular Chest Pain : Yes VANDANA KHALIL RN-PATIENT CARE BEDSIDE NON-EXEMPT - 09/14/2021 13:16 EDT Pulses Grid Dorsalis Pedis Pulse, Left : 2+ normal Dorsalis Pedis Pulse, Right : 2+ normal Radial Pulse, Left : 2+ normal Radial Pulse, Right : 2+ normal VANDANA KHALIL RN-PATIENT CARE BEDSIDE NON-EXEMPT - 09/14/2021 13:16 EDT Heart Sounds : S1/S2 VANDANA KHLAIL RN-PATIENT CARE BEDSIDE NON-EXEMPT - 09/14/2021 13:16 EDT Gastrointestinal ED Gastrointestinal Assessment WDL : WDL with exceptions (Comment: Pt reports nausea [VANDANA KHALIL RN-PATIENT CARE BEDSIDE NON-EXEMPT - 09/14/2021 13:16 EDT] ) Gastrointestinal Symptoms : Nausea VANDANA KHALIL RN-PATIENT CARE BEDSIDE NON-EXEMPT - 09/14/2021 13:16 EDT documented in this encounter Plan of Treatment Not on file documented as of this encounter Visit Diagnoses Not on filedocumented in this encounter Care Teams Maintenance Shop Manager Relationship Specialty Start Date End Date Alan Beyer MD [address] [place] [address] PCP - General Family Medicine 06/08/23 documented as of this encounter
--- OUTSIDE RECORDS SUMMARY | 2024-11-05 10:20 | XMS_ITS | Encounter Summary ---
Author Organization [employer] Address [address] [place] [address] Care Team Providers Care Die Tripper Name Role Phone Alan Beyer MD Primary Care Provider [phone] Encounter Details Date Type Department Care Team (Late st Contact Info) Description 12/23/2020 Transcribed Document [facility] [place] [address] [place] [address] ProviderJessenia MD [address] [place], [place] [address] Social History Tobacco Use Types Packs/Day Years Used Date Smoking Tobacco: Never Assessed Comments Unknown Sex and Gender Information Value Date Recorded Sex Assigned at Not on file Legal Sex Female 4:28 PM CDT Gender Identity Not on file Sexual Orientation Not on file documented as of this encounter Miscellaneous Notes * Cerner Conversion Note - Jessenia Alvarez MD - 12/23/2020 9:39 AM CDT [place] Suicide Severity Rating Scale (C-SSRS) Entered On: 12/23/2020 11:24 EDT Performed On: 12/23/2020 10:00 EDT by Suyapa An RN-PATIENT CARE BEDSIDE NON-EXEMPT [place] Suicide Severity Rating Scale (C-SSRS) CSSRS Past Month Wish to be : No CSSRS Past Month Suicidal Thoughts : No CSSRS Lifetime Suicide Behavior : No Suicide Severity Rating Score : 0 Suicide Severity Rating : No Additional Care Required at this time Suyapa An RN-PATIENT CARE BEDSIDE NON-EXEMPT - 12/23/2020 11:23 EDT documented in this encounter Plan of Treatment Not on file documented as of this encounter Visit Diagnoses Not on filedocumented in this encounter Care Teams Die Tripper Relationship Specialty Start Date End Date Alan Beyer MD [address] [place] [address] PCP - General Family Medicine 06/08/23 documented as of this encounter
--- OUTSIDE RECORDS SUMMARY | 2024-11-05 10:20 | XMS_ITS | Encounter Summary ---
Author Organization [employer] Address [address] [place] [address] Care Team Providers Care Body Shop Estimator Name Role Phone Alan Beyer MD Primary Care Provider [phone] Encounter Details Date Type Department Care Team (Late st Contact Info) Description 12/23/2020 Transcribed Document [facility] [place] [facility] [place] [address] ProviderJessenia MD [address] [place] [address] Social History Tobacco Use Types Packs/Day Years Used Date Smoking Tobacco: Never Assessed Comments Unknown Sex and Gender Information Value Date Recorded Sex Assigned at Not on file Legal Sex Female 4:28 PM CDT Gender Identity Not on file Sexual Orientation Not on file documented as of this encounter Miscellaneous Notes * Cerner Conversion Note - Jessenia ProviderMD - 12/23/2020 2:16 PM CDT [address] [address] Visit Date/Time: 12/23/2020 14:16:10 CHARLINE BOND The above patient was seen in the hospital today and needs to be excused from work/school until Return to Work/School Date: 12/26/20 Electronically signed by Jannette [facility] Conversion Stemhole Borer And Topper Cerner at 08/31/2022 5:00 PM CDT documented in this encounter Plan of Treatment Not on file documented as of this encounter Visit Diagnoses Not on filedocumented in this encounter Care Teams Body Shop Estimator Relationship Specialty Start Date End Date Alan Beyer MD [address] [place] [address] PCP - General Family Medicine 06/08/23 documented as of this encounter
--- OUTSIDE RECORDS SUMMARY | 2024-11-05 10:20 | XMS_ITS | Encounter Summary ---
Author Organization [employer] Address [address] [place] [address] Care Team Providers Care Metal Engineering Process Worker Name Role Phone Alan Beyer MD Primary Care Provider [phone] Encounter Details Date Type Department Care Team (Late st Contact Info) Description 08/19/2021 Transcribed Document [facility] [place] [facility] [place] [address] ProviderJessenia MD [address] [place], [place] [id number] Social History Tobacco Use Types Packs/Day Years Used Date Smoking Tobacco: Never Assessed Comments Unknown Sex and Gender Information Value Date Recorded Sex Assigned at Not on file Legal Sex Female 4:28 PM CDT Gender Identity Not on file Sexual Orientation Not on file documented as of this encounter Miscellaneous Notes * Cerner Conversion Note - Jessenia Alvarez MD - 08/19/2021 11:18 PM CDT ED Discharge Entered On: 08/19/2021 23:19 EDT Performed On: 08/19/2021 23:18 EDT by MITCH CRANE RN Discharge Process Patient Disposition : Discharge Personal Belongings With Patient : Yes Patient Education Completed : Yes Teaching Evaluation : Verbalizes understanding IV Discontinued : Yes MITCH CRANE RN - 08/19/2021 23:18 EDT ED Discharge Discharge To : Home with ambulatory/outpatient follow-up Mode Of Departure : Ambulatory Accompanied By : Friend Discharge Instructions Reviewed With, Opportunity For Questions Given : Patient Prescriptions Given to Patient : Yes Number of Prescriptions Given : 2 MITCH CRANE RN - 08/19/2021 23:18 EDT documented in this encounter Plan of Treatment Not on file documented as of this encounter Visit Diagnoses Not on filedocumented in this encounter Care Teams Metal Engineering Process Worker Relationship Specialty Start Date End Date Alan Beyer MD [address] [place] [address] PCP - General Family Medicine 06/08/23 documented as of this encounter
--- OUTSIDE RECORDS SUMMARY | 2024-11-05 10:20 | XMS_ITS | Encounter Summary ---
Author Organization [employer] Address [address] [place] [address] Care Team Providers Care Athletics Director Name Role Phone Alan Beyer MD Primary Care Provider [phone] Encounter Details Date Type Department Care Team (Late st Contact Info) Description 01/06/2019 Transcribed Document [facility] [address] [place] [address] Yomi Harvey MD [address] [place] [address] Dept[place] [address] Social History Tobacco Use Types Packs/Day Years Used Date Smoking Tobacco: Never Assessed Comments Unknown Sex and Gender Information Value Date Recorded Sex Assigned at Not on file Legal Sex Female 4:28 PM CDT Gender Identity Not on file Sexual Orientation Not on file documented as of this encounter Miscellaneous Notes * Cerner Conversion Note - Yomi Harvey MD - 01/06/2019 12:35 PM EDT Patient: CHARLINE BOND Age: 38 years Sex: Female : 1980 Associated Diagnoses: Internal knee problem Author: TETO MCKNIGHT PA-C Basic Information Time seen: Date & time 01/06/2019 11:36:00. History source: Patient. Arrival mode: Private vehicle. History limitation: None. Additional information: Chief Complaint from Nursing Triage Note : Chief Complaint 01/06/2019 10:50 EDT Chief Complaint c/o rt knee pain s/p injury in october, felt poppin this am after stepping down on it. pt limping to triage . History of Present Illness The patient presents with knee pain and knee swelling. The onset was just prior to arrival. The course/duration of symptoms is constant. Type of injury: unknown. Location: Right anterior inferior knee. The character of symptoms is pain, not tingling and not numbness. The degree at present is moderate. The exacerbating factor is weight bearing. The relieving factor is none. Risk factors consist of recent illness/injury. Prior episodes: rare. Therapy today: none. Associated symptoms: none. Patient presents to the ER complainig of R knee pain after it popped this morning while standing and shifting weight. States she is currently waiting to have medical meniscus repair on the same knee. States has some pain to the lower aspect of her knee at this time. Limping with ambulation. . Review of Systems Constitutional symptoms: No fever, no chills. Skin symptoms: No rash, Eye symptoms: Vision unchanged. ENMT symptoms: No sore throat, no nasal congestion. Respiratory symptoms: No cough, Cardiovascular symptoms: No chest pain, no palpitations. Gastrointestinal symptoms: No abdominal pain, no nausea, no vomiting. Genitourinary symptoms: No dysuria, Musculoskeletal symptoms: Joint pain, No back pain, Neurologic symptoms: No headache, Additional review of systems information: [...] 4 mg oral tablet, disintegratin Tab, Oral, TID, PRN: Nausea/Vomiting, 24 Tab, 0 Refill(s) nabumetone 500 mg oral tablet: 1 Tab, Oral, BID, for 4 Day(s), PRN: Pain, 8 Tab, 0 Refill(s) Documented Medications Documented Karine: Oral, 0 Refill(s) Premarin: Oral, Daily, 0 Refill(s) Robaxin-750 oral tablet: 1 Tab, Oral, Daily, 42 Tab, 0 Refill(s) Valtrex: Oral, 0 Refill(s) ibuprofen: 0 Refill(s) vitamin E: 100 Int Units, Oral, Daily, 0 Refill(s). Past Medical/ Family/ Social History Medical history Genitourinary: renal stone. Neurological: migraine. Psychiatric: anxiety. Surgical history: Clavicle ([id number]). Tympanostomy ([id number]). Adenoids ([id number]). shoulder surgery. Gallbladder absent ([id number]). Tubal ligation ([id number]). Hysterectomy ([id number]).. Family history: No family history items have [...] Physical Examination Vital Signs Vital Signs/Vital Measures 01/06/2019 10:50 EDT Systolic Blood Pressure 125 mmHg Diastolic Blood Pressure 91 mmHg HI Temperature Source Tympanic Temperature Mode Fahrenheit Temperature, Fahrenheit 97.5 Deg F Clinical Temperature, C 36.4 Deg C Peripheral Pulse Rate 116 bpm HI Respiratory Rate 18 Breaths/Min Oxygen Saturation 100 % Oxygen Therapy Mode Room air . Measurements 01/06/2019 10:50 EDT Height Source Stated Height Entry Format [place] Height/Length, BURUNDI[place] (ft) 5 ft Height/Length BUR[place]DI[place] 5 Inch CLINICALHEIGHT 165.1 cm [place] Body Weight 56.59 kg Weight Source, ED Standing scale Weight Entry Format Traverse Weight Maori lb 160 lb CLINICALWEIGHT 72.73 kg Body Surface Area (BSA) 1.8 m2 Body Mass Index 26.7 kg/m2 HI . Oxygen Saturation 01/06/2019 10:50 EDT Oxygen Saturation 100 % . General: Alert, no acute distress. Skin: Warm, dry, intact. Head: Normocephalic, atraumatic. Neck: Trachea midline. Eye: Extraocular movements are intact. Ears, nose, mouth and throat: Oral mucosa moist. Cardiovascular: Regular rate and rhythm, Normal peripheral perfusion. Respiratory: Respirations are non-labored. Gastrointestinal: Non distended. Back: Normal range of motion. Musculoskeletal: Normal ROM, normal strength, no deformity, Lower extremity: Right, anterior, knee, tenderness. Neurological: Alert and oriented to person, place, time, and situation, No focal neurological deficit observed. Psychiatric: Cooperative, appropriate mood & affect. Medical Decision Making Documents reviewed: Emergency department nurses' notes. Knee x-ray findings Normal alignment, no fracture, normal soft tissue, interpretation by Emergency Physician. Reexamination/ Reevaluation knee immobilizer applied to R knee by tech. n/v intact Impression and Plan Diagnosis Internal knee problem - Discharge, Emergency medicine, Medical Plan Condition: Stable. Disposition: Discharged Admit/Transfer/Discharge: Discharge (Order): Start: 01/06/2019 13:01 EDT, Discharge to: Home. Prescriptions: Prescription Content Management Consultant Pharmacy: [facility] 5 mg-325 mg oral tablet (Prescribe): 1 Tab, Oral, Q6H, for 2 Day(s), not to exceed 8 tablets/day, PRN: for pain, 8 Tab, 0 Refill(s). Patient was given the following educational materials: Knee Pain, Adult, [id number]. Follow up with: [facility] Within As needed Patient has a primary care physician with [facility]. For assistance in the future with finding a new primary care physician please contact the Patient Resource Center at [phone].; [facility] Within 2 to 3 days; J[facility] EDWARDS Within 2 to 3 days Call for follow up appointment Call in the AM. Counseled: Patient, Regarding diagnosis, Regarding diagnostic results, Regarding treatment plan, Regarding prescription, Patient indicated understanding of instructions. documented in this encounter Plan of Treatment Not on file documented as of this encounter Visit Diagnoses Not on filedocumented in this encounter Care Teams Athletics Director Relationship Specialty Start Date End Date Alan Beyer MD [address] [place] [address] PCP - General Family Medicine 06/08/23 documented as of this encounter
--- OUTSIDE RECORDS SUMMARY | 2024-11-05 10:20 | XMS_ITS | Encounter Summary ---
Author Organization [employer] Address [address] [place] [address] Care Team Providers Care Special Effects Technician Name Role Phone Alan Beyer MD Primary Care Provider Encounter Details Date Type Department Care Team (Late st Contact Info) Description 11/01/2020 Transcribed Document [facility] Family Medicine [facility] [place] [address] ProviderJessenia MD [address] [place], [place] [id number] Social History Tobacco Use Types Packs/Day Years [...] Alvarez MD - 11/01/2020 6:07 PM CDT [place] Suicide Severity Rating Scale (C-SSRS) Entered On: 11/01/2020 21:03 EDT Performed On: 11/01/2020 20:45 EDT by MITCH CRANE RN [place] Suicide Severity Rating Scale (C-SSRS) CSSRS Past Month Wish to be : No CSSRS Past Month Suicidal Thoughts : No CSSRS Lifetime Suicide Behavior : No Suicide Severity Rating Score : 0 Suicide Severity Rating : No Additional Care Required at this time MITCH CRANE RN - 11/01/2020 21:03 EDT documented in this encounter Plan of Treatment Not on file documented as of this encounter Visit Diagnoses Not on filedocumented in this encounter Care Teams Special Effects Technician Relationship Specialty Start Date End Date Alan Beyer MD [address] [place] [address] PCP - General Family Medicine 06/08/23 documented as of this encounter
--- OUTSIDE RECORDS SUMMARY | 2024-11-05 10:20 | XMS_ITS | Encounter Summary ---
Author Organization [employer] Address [address] [place] [address] Care Team Providers Care Field Irrigation Worker Name Role Phone Alan Beyer MD Primary Care Provider [phone] Encounter Details Date Type Department Care Team (Late st Contact Info) Description 11/01/2020 Transcribed Document [facility] [place] [address] ProviderJessenia MD [address] [place] [id number] Social History Tobacco Use Types Packs/Day Years Used Date Smoking Tobacco: Never Assessed Comments Unknown Sex and Gender Information Value Date Recorded Sex Assigned at Not on file Legal Sex Female 4:28 PM CDT Gender Identity Not on file Sexual Orientation Not on file documented as of this encounter Miscellaneous Notes * Cerner Conversion Note - Jessenia Alvarez MD - 11/01/2020 10:02 PM CDT Patient: CHARLINE BOND Age: 39 years Sex: Female : 1980 Associated Diagnoses: Abdominal pain; Right ovarian cyst; Abdominal pain Author: ZAIDA FRANCIS PA-C Basic Information Time seen: Date & time 11/01/2020 20:08:00. History source: Patient. Arrival mode: Private vehicle. History limitation: None. Additional information: Chief Complaint from Nursing Triage Note : Chief Complaint 11/01/2020 18:33 EDT Chief Complaint Pt C/O RLQ pain X2 weeks, seen at [facility] and told she had ovarian cyst. + nausea . History of Present Illness The patient presents with abdominal pain. The onset was 2 weeks ago. The course/duration of symptoms is constant. The character of symptoms is sharp. The degree at onset was moderate. The Location of pain at onset was left, lower and abdominal. The degree at present is moderate. The Location of pain at present is left, lower and abdominal. Radiating pain: none. The exacerbating factor is changing position. The relieving factor is none. Therapy today: Patient states she was seen at [facility] and was told she had a large ovarian cyst the size of her ovary.. Risk factors consist of History ovarian cyst. Associated symptoms: none. Review of Systems Constitutional symptoms: Negative [...] Day(s), PRN: Nausea/Vomiting, 15 Tab, 0 Refill(s) predniSONE 10 mg oral tablet: 3 Tab, Oral, Daily, for 5 Day(s), 15 Tab, 0 Refill(s) promethazine 25 mg [...] Medical/ Family/ Social History Surgical history: Clavicle ([id number]). Tympanostomy ([id number]). Adenoids (948768408). shoulder surgery. Gallbladder absent (638100117). Tubal ligation (742108144). Hysterectomy (694648783). Right knee ([id number]). Comments: 05/03/2020 15:32 Jyoti Tilley Rn menisectomy. [...] vap Years of Tobacco Use 17 . Problem list: Active Problems (6) Anxiety Endometriosis, vagina Kidney stones Migraine S/P hysterectomy Shoulder pain, left . Physical Examination Vital Signs Vital Signs/Vital Measures 11/01/2020 18:33 EDT Systolic Blood Pressure 143 mmHg HI Diastolic Blood Pressure 102 mmHg HI Temperature Source Temporal artery scanning Temperature Mode Fahrenheit Temperature, Fahrenheit 96.9 Deg F Clinical Temperature, C 36.1 Deg C Peripheral Pulse Rate 105 bpm HI Respiratory Rate 20 Breaths/Min Oxygen Saturation 99 % Oxygen Therapy Mode Room air . Measurements 11/01/2020 18:33 EDT Height Source Measured Height Entry Format [place] Height/Length, BARBAD[place] (ft) 5 ft Height/Length [place] 5 Inch CLINICALHEIGHT 165.1 cm [place] Body Weight 56.59 kg Weight Source, ED Standing scale Weight Entry Format [place] Weight [place] lb 161 lb CLINICALWEIGHT 73.18 kg Body Surface Area (BSA) 1.81 m2 Body Mass Index 26.8 kg/m2 HI . Oxygen Saturation 11/01/2020 18:33 EDT Oxygen Saturation 99 % . General: Alert, mild distress. Skin: Warm, moist, no pallor. Head: Normocephalic, atraumatic. Neck: Supple, trachea midline, no tenderness. Eye: Pupils are equal, round and reactive to light, normal conjunctiva, vision grossly normal. Ears, nose, mouth and throat: Tympanic membranes clear, oral mucosa moist, no pharyngeal erythema or exudate. Cardiovascular: Regular rate and rhythm, No murmur, No edema. Respiratory: Lungs are clear to auscultation, respirations are non-labored, breath sounds are equal. Chest wall: No tenderness. Back: Nontender, Normal range of motion, Normal alignment. Musculoskeletal: Normal ROM, normal strength, no tenderness. Gastrointestinal: Soft, Non distended, tenderness, Guarding: Negative, Rebound: Negative, Bowel sounds: Normal, Organomegaly: Negative, Mass: Negative. Neurological: Alert and oriented to person, place, time, and situation, No focal neurological deficit observed, normal speech observed. Psychiatric: Cooperative, appropriate mood & affect, normal judgment. Medical Decision Making Differential Diagnosis: Abdominal pain, UTI, ovarian torsion, ovarian cyst. Documents reviewed: Emergency department nurses' notes, emergency department records. Orders Include Previous Orders (Selected) Inpatient Orders Ordered Saline Lock Insert: Completed .Automated Differential: Broset Violence Assessment: CBC w/ Auto Diff: CMP Comprehensive Metabolic Panel: Dilaudid: 0.5 mg, IV Push, 1-Time ED Adult Fall Risk Assessment: ED Adult Triage: ED C-SSRS: ED Clinical Reconciliation: ED staff sonographer: Sodium Chloride 0.9% bolus: 1,000 mL, 1,000 mL/Hr, IV Piggyback, 1-Time US Transvaginal Non Ob: Urinalysis UA Rflx Microscopic Cult if Ind: Zofran: 4 mg, IV Push, 1-Time. Results review: Lab results : Lab Results 11/01/2020 20:50 EDT Sodium Level 141 mmol/L Potassium Level 3.5 mmol/L Chloride Level 108 mmol/L Carbon Dioxide Level 27 mmol/L Anion Gap 10 Glucose Level 80 mg/dL Blood Urea Nitrogen 10 mg/dL Creatinine Level 0.72 mg/dL eGFR >60 mL/min/1.73m2 eGFR NonAfrican >60 mL/min/1.73m2 Bun/Creatinine 13.9 Calcium Level 8.4 mg/dL LOW Protein Total 7.1 Gram/dL Albumin Level 3.8 Gram/dL Globulin 3.3 Gram/dL A/G Ratio 1.2 Bilirubin Total 0.3 mg/dL Alk Phos 82 Units/Liter AST 12 Units/Liter ALT 16 Units/Liter WBC 6.1 K/uL RBC 3.62 Million/uL LOW Hgb 12.4 Gram/dL Hct 36.1 % MCV 99.7 fL HI MCH 34.3 pg HI MCHC 34.3 Gram/dL Platelet Count 218 K/uL MPV 10.3 fL RDW 12.2 % Neut % 49.9 % Neut # 3.06 K/uL Lymph % 39.7 % Lymph # 2.43 K/uL [place] % 6.2 % [place] # 0.38 K/uL Eos % 3.3 % Eos # 0.20 K/uL Baso % 0.7 % Baso # 0.04 K/uL Slide Review No IG# 0 x10(3)/uL IG% 0 % 11/01/2020 20:07 EDT Urine Type. U CleanCatch Urine Color Yellow Urine Appearance Clear Urine Specific [place] 1.008 Urine pH Dipstick 7.0 Urine Leukocyte Esterase Negative Urine Nitrite Negative Urine Protein Dipstick Negative Urine Glucose Dipstick Negative Urine Ketones Dipstick Negative Urine Urobilinogen Dipstick 0.2 EU/dL Urine Bilirubin Dipstick Negative mg/dL Urine Blood Dipstick Negative Urine Culture if Indicated Not Indicated , Interpretation Labs unremarkable, Normal results. Radiology results: Radiology Results (Last 48 hours) [id number] -- 11/01/2020 18:07 US Transvaginal Non Ob (11/01/2020 21:35) Result: PELVIC ULTRASOUND.HISTORY: Right pelvic pain. Right lower quadrant pain..PROCEDURE: Transvaginal images of the pelvis were obtained.COMPARISON: None.FINDINGS: The uterus and left ovary are surgically absent. Within theright ovary there is a 1.5 cm simple cyst. Flow in the ovary is seen onDoppler ultrasound. There is no free fluid.IMPRESSION: Small right ovarian cyst, likely of no significance... . Reexamination/ Reevaluation Time: 11/01/2020 22:09:00 . Pain status: unchanged. Assessment: exam unchanged. Notes: Patient has a small ovarian cyst on the right side, labs unremarkable. Patient repeatedly requesting pain medication. She has had multiple ER visits requesting pain medication with a long drug allergy list. Will give her one dose of norco here, and will prescribe diclofenac. . Impression and Plan Diagnosis Abdominal pain - Discharge, Medical Right ovarian cyst - Discharge, Medical Complaint of Abdominal pain - Reason For Visit, Medical Plan Condition: Stable. Disposition: Discharged Admit/Transfer/Discharge: Discharge (Order): Start: 11/01/2020 22:14 EDT, Discharge to: Home. Prescriptions: Prescription [facility]: diclofenac sodium 75 mg oral delayed release tablet (Prescribe): 1 Tab, Oral, BID, for 5 Day(s), 10 Tab, 0 Refill(s). Patient was given the following educational materials: Ovarian Cyst, [id number]. Follow up with: RHIANNA MARTIN Within 2 to 3 days Appointment with your DIETITIAN TEACHER. Take medications as directed. Stay home, wear your mask, and practice self distancing. Return to the ER if symptoms worsen or persist. The following medications have been prescribed to you today: Prescriptions (1) Active diclofenac sodium 75 mg oral delayed release tablet 75 mg = 1 Tab, DR Tab, BID, Oral, 5 Day(s), 10 Tab, 0 refill(s), Route to Pharmacy Electronically, [facility] [id number] . Counseled: Patient, Family, Regarding diagnosis, Regarding diagnostic results, Regarding treatment plan, Regarding prescription, Patient indicated understanding of instructions. documented in this encounter Plan of Treatment Not on file documented as of this encounter Visit Diagnoses Not on filedocumented in this encounter Care Teams Field Irrigation Worker Relationship Specialty Start Date End Date Alan Beyer MD [address] [place] [id number] PCP - General Family Medicine 06/08/23 documented as of this encounter
--- OUTSIDE RECORDS SUMMARY | 2024-11-05 10:20 | XMS_ITS | Encounter Summary ---
Author Organization [employer] Address [address] [place] [address] Care Team Providers Care Non Destructive Testing Inspector Name Role Phone Alan Beyer MD Primary Care Provider [phone] Encounter Details Date Type Department Care Team (Late st Contact Info) Description 01/06/2019 Transcribed Document [facility] [place] [facility] [place] [address] ProviderJessenia MD [address] [place] [address] Social History Tobacco Use Types Packs/Day Years Used Date Smoking Tobacco: Never Assessed Comments Unknown Sex and Gender Information Value Date Recorded Sex Assigned at Not on file Legal Sex Female 4:28 PM CDT Gender Identity Not on file Sexual Orientation Not on file documented as of this encounter Miscellaneous Notes * Cerner Conversion Note - Jessenia ProviderMD - 01/06/2019 1:03 PM CDT [address] [address] Visit Date/Time: 01/06/2019 13:03:15 RIANA CHARLINE DENIZ The above patient was seen in the hospital today and needs to be excused from work/school until Return to Work/School Date: 01/08/19 documented in this encounter Plan of Treatment Not on file documented as of this encounter Visit Diagnoses Not on filedocumented in this encounter Care Teams Non Destructive Testing Inspector Relationship Specialty Start Date End Date Alan Beyer MD [address] [place] [address] PCP - General Family Medicine 06/08/23 documented as of this encounter
--- OUTSIDE RECORDS SUMMARY | 2024-11-05 10:20 | XMS_ITS | Encounter Summary ---
Author Organization [employer] Address [address] [place] [address] Care Team Providers Care Nut Blanker Operator Name Role Phone Alan Beyer MD Primary Care Provider [phone] Encounter Details Date Type Department Care Team (Late st Contact Info) Description 12/12/2021 Transcribed Document [facility] [place] [facility] [address] ProviderJessenia MD [address] [place] [address] Social History Tobacco Use Types [...] Alvarez MD - 12/12/2021 10:01 AM CDT ED Triage Entered On: 12/12/2021 10:13 EDT Performed On: 12/12/2021 10:09 EDT by Amanda Walters Flex Team aerographer Triage Across the Room Chief Complaint : pt states she is covid + since last sunday, states she feels weird, really anxious, super hard to concentrate and it makes me feel dumb no BP meds in a couple of weeks, Triage Date/Time : 12/12/2021 10:09 EDT Amanda Walters Flex Team Rn - 12/12/2021 10:09 EDT Amanda Walters Flex Team Rn - 12/12/2021 10:09 EDT DCP GENERIC CODE Tracking Group : [facility] [place] Amanda Walters Flex Team Rn - 12/12/2021 10:09 EDT Tracking Acuity : 3 - Urgent Amanda Walters Flex Team Rn - 12/12/2021 10:46 EDT Mode of Arrival : Ambulatory Transported to ED by : Private vehicle To Room Via : Ambulate Accompanied By : Unaccompanied ED Vital Signs : Document Height & Weight : Document ED Allergies : Document ED Reason for Visit : Document Tetanus Immunization : Unknown Set Up Mechanic Needed : No Amanda Walters Flex Team Rn - 12/12/2021 10:09 EDT Infectious Disease History Does patient have symptoms of COVID-19? : No Tested for COVID19 in the past 14 days : No, Patient stated Does the Patient state known exposure to a COVID-19 positive case in the last 14 days? : No Patient Vaccinated for COVID-19 : Fully vaccinated Amanda Walters Flex Team Rn - 12/12/2021 10:09 EDT Infectious Disease Risk Screening Grid Cough < 2 wks of unknown origin : NO Cough > 2 weeks : NO Blood in Sputum : NO Fever or self-reported Fever : NO Rash of unknown origin : NO Headache : NO Stiff neck : NO Night Sweats : NO Unexplained Weight Loss : NO Diarrhea (3 episode per day) : NO Amanda Walters Flex Team Rn - 12/12/2021 10:09 EDT Physical contact outside [place] in the last 30 days : No Hospitalized in Foreign Country : No Infectious Disease History : Chicken pox/Shingles, Herpes, Influenza, Mononucleosis INF Disease TB Screening Calc : 0 INF Disease Recent Travel Calc : 0 Amanda Walters Flex Team Rn - 12/12/2021 10:09 EDT Vital Signs ED Temperature Source : Oral Temperature Mode : Fahrenheit Temperature, Fahrenheit : 98.7 Deg F ED Pain : No Clinical Temperature, C : 37.1 Deg C Oxygen Therapy Mode : Room air Peripheral Pulse Rate : 99 bpm Respiratory Rate : 16 Breaths/Min Systolic Blood Pressure : 142 mmHg (HI) Diastolic Blood Pressure : 108 mmHg (HI) Amanda Walters Flex Team Rn - 12/12/2021 10:09 EDT Allergy (As Of: 12/12/2021 10:13:34 EDT) Allergies (Active) acetaminophen-oxyCODONE Estimated Onset Date: Unspecified ; Comments: Comment 1: throws up and itching ; Created By: Breanna Ivey Rn; Reaction Status: Active ; Category: Drug ; Substance: acetaminophen-oxyCODONE ; Severity: Severe ; Updated By: Breanna Ivey Rn; Source: Patient ; Reviewed Date: 12/12/2021 10:12 EDT baclofen Estimated Onset Date: Unspecified ; Comments: Comment 1: hives and cant breath ; Created By: Breanna Ivey Rn; Reaction Status: Active ; Category: Drug ; Substance: baclofen ; Type: Allergy ; Updated By: Breanna Ivey Rn; Reviewed Date: 12/12/2021 10:12 EDT Bactrim Estimated Onset Date: Unspecified ; Comments: Comment 1: hives not breathing ; Created By: Breanna Ivey Rn; Reaction Status: Active ; Category: Drug ; Substance: Bactrim ; Type: Allergy ; Severity: Severe ; Updated By: Breanna Ivey Rn; Source: Patient ; Reviewed Date: 12/12/2021 10:12 EDT clindamycin Estimated Onset Date: Unspecified ; Comments: Comment 1: Hives, vomiting ; Created By: Talia Eason RN; Reaction Status: Active ; Category: Drug ; Substance: clindamycin ; Type: Allergy ; Severity: Severe ; Updated By: Talia Eason RN; Reviewed Date: 12/12/2021 10:12 EDT doxycycline Estimated Onset Date: Unspecified ; Comments: Comment 1: hives and projectile vomiting ; Created By: Breanna Ivey Rn; Reaction Status: Active ; Category: Drug ; Substance: doxycycline ; Type: Allergy ; Updated By: Breanna Ivey Rn; Reviewed Date: 12/12/2021 10:12 EDT escitalopram Estimated Onset Date: Unspecified ; Comments: Comment 1: unknown ; Created By: Breanna Ivey Rn; Reaction Status: Active ; Category: Drug ; Substance: escitalopram ; Type: Allergy ; Updated By: Breanna Ivey Rn; Reviewed Date: 12/12/2021 10:12 EDT fentaNYL Estimated Onset Date: Unspecified ; Comments: Comment 1: hallucinate and cry ; Created By: Breanna Ivey Rn; Reaction Status: Active ; Category: Drug ; Substance: fentaNYL ; Type: Allergy ; Updated By: Breanna Ivey Rn; Reviewed Date: 12/12/2021 10:12 EDT lidocaine topical 2% gel Estimated Onset Date: Unspecified ; Comments: Comment 1: severe swelling, itching, rash ; Created By: Breanna Ivey Rn; Reaction Status: Active ; Category: Drug ; Substance: lidocaine topical 2% gel ; Type: Allergy ; Updated By: Breanna Ivey Rn; Reviewed Date: 12/12/2021 10:12 EDT meperidine Estimated Onset Date: Unspecified ; Comments: Comment 1: hallucinations and angry ; Created By: Breanna Ivey Rn; Reaction Status: Active ; Category: Drug ; Substance: meperidine ; Type: Allergy ; Updated By: Breanna Ivey Rn; Reviewed Date: 12/12/2021 10:12 EDT morphine Estimated Onset Date: Unspecified ; Comments: Comment 1: severe itching ; Created By: Breanna Ivey Rn; Reaction Status: Active ; Category: Drug ; Substance: morphine ; Type: Allergy ; Updated By: Breanna Ivey Rn; Reviewed Date: 12/12/2021 10:12 EDT penicillin Estimated Onset Date: Unspecified ; Reactions: Hives ; Comments: Comment 1: hives Comment 2: Pt has tolerated cefoxitin in 06/30, 06/01, and trying cefazolin 05/01 ; Created By: JAME ZUNIGA PharmD; Reaction Status: Active ; Category: Drug ; Substance: penicillin ; Type: Allergy ; Updated By: JAME ZUNIGA PharmD; Reviewed Date: 12/12/2021 10:12 EDT tetanus immune globulin Estimated Onset Date: Unspecified ; Comments: Comment 1: adverse reaction I get tetanus and my body will swell up ; Created By: Breanna Ivey Rn; Reaction Status: Active ; Category: Drug ; Substance: tetanus immune globulin ; Type: Allergy ; Updated By: Breanna Ivey Rn; Reviewed Date: 12/12/2021 10:12 EDT Toradol Estimated Onset Date: Unspecified ; Comments: Comment 1: feels like a softball in chest and my chest goes numb ; Created By: Breanna Ivey Rn; Reaction Status: Active ; Category: Drug ; Substance: Toradol ; Type: Allergy ; Updated By: Breanna Ivey Rn; Reviewed Date: 12/12/2021 10:12 EDT Diagnosis Control ED (As Of: 12/12/2021 10:13:34 EDT) Problems(Active) Anxiety (SNOMED CT :20627783 ) Name of Problem: Anxiety ; Recorder: ERICKA ISSA RN; Confirmation: Confirmed ; Classification: Medical ; Code: [id number] ; Contributor System: Fl[employer]ish PrenatalChart ; Last Updated: 07/26/2015 22:28 EDT ; Life Cycle Date: 07/26/2015 ; Life Cycle Status: Active ; Vocabulary: SNOMED CT At risk for sleep apnea (IMO :23263536 ) Name of Problem: At risk for sleep apnea ; Recorder: SYSTEM, SYSTEM; Confirmation: Confirmed ; Classification: Medical ; Code: [id number] ; Last Updated: 07/13/2021 14:49 EST ; Life Cycle Date: 07/13/2021 ; Life Cycle Status: Active ; Vocabulary: IMO Endometriosis, vagina (SNOMED CT :01276290 ) Name of Problem: Endometriosis, vagina ; Recorder: Breanna Ivey RN; Confirmation: Confirmed ; Classification: Medical ; Code: [id number] ; Contributor System: PowerChart ; Last Updated: 05/24/2018 10:54 EST ; Life Cycle Date: 05/24/2018 ; Life Cycle Status: Active ; Vocabulary: SNOMED CT Kidney stones (SNOMED CT :197663304 ) Name of Problem: Kidney stones ; Recorder: KAYY ANDREW; Confirmation: Confirmed ; Classification: Medical ; Code: [id number] ; Contributor System: [facility] PrenatalChart ; Last Updated: 06/06/2016 9:30 EST ; Life Cycle Date: 06/06/2016 ; Life Cycle Status: Active ; Vocabulary: SNOMED CT Migraine (SNOMED CT :26652945 ) Name of Problem: Migraine ; Recorder: ERICKA ISSA RN; Confirmation: Confirmed ; Classification: Medical ; Code: 21578889 ; Contributor System: PowerChart ; Last Updated: 07/26/2015 22:28 EDT ; Life Cycle Date: 07/26/2015 ; Life Cycle Status: Active ; Vocabulary: SNOMED CT Multiple drug allergies (SNOMED CT :2105065899 ) Name of Problem: Multiple drug allergies ; Recorder: YOVANA WILKERSON NP-FAM; Confirmation: Confirmed ; Classification: Medical ; Code: [id number] ; Contributor System: PowerChart ; Last Updated: 07/13/2021 15:51 EST ; Life Cycle Date: 07/13/2021 ; Life Cycle Status: Active ; Responsible Provider: YOVANA WILKERSON NP-FAM; Vocabulary: SNOMED CT S/P hysterectomy (SNOMED CT :078088891 ) Name of Problem: S/P hysterectomy ; Recorder: LEONID CASTANEDA RN; Confirmation: Confirmed ; Classification: Medical ; Code: [id number] ; Contributor System: PowerChart ; Last Updated: 11/06/2019 20:08 EDT ; Life Cycle Date: 11/06/2019 ; Life Cycle Status: Active ; Vocabulary: SNOMED CT Shoulder pain, left (SNOMED CT :44703971 ) Name of Problem: Shoulder pain, left ; Recorder: Breanna Ivey RN; Confirmation: Confirmed ; Classification: Medical ; Code: 45874944 ; Contributor System: [facility]ish PrenatalChart ; Last Updated: 05/24/2018 10:53 EST ; Life Cycle Date: 05/24/2018 ; Life Cycle Status: Active ; Vocabulary: SNOMED CT Thoracic disc herniation (SNOMED CT :172097676 ) Name of Problem: Thoracic disc herniation ; Recorder: YOVANA WILKERSON NP-FAM; Confirmation: Confirmed ; Classification: Medical ; Code: [id number] ; Contributor System: [facility] PrenatalChart ; Last Updated: 07/13/2021 15:51 EST ; Life Cycle Date: 07/13/2021 ; Life Cycle Status: Active ; Responsible Provider: YOVANA WILKERSON NP-FAM; Vocabulary: SNOMED CT Diagnoses(Active) Anxiety Date: 12/12/2021 ; Diagnosis Type: Reason For Visit ; Confirmation: Complaint of ; Clinical Dx: Anxiety ; Classification: Medical ; Clinical Service: Non-Specified ; Code: PNED ; Probability: 0 ; Diagnosis Code: [id number] ED Height and Weight Height Source : Stated Height Entry Format : Coats Height, Feet : 5 ft(Converted to: 152 cm, 60 Inch) Height, Inches : 5 Inch(Converted to: 0 ft 5 Inch, 12.70 cm) Clinical Height : 165.1 cm Weight Source, ED : Critical estimated dosing weight Weight Entry Format : [place]ats Weight, Pounds : 180 lb Clinical Dosing Weight : 81.82 kg Body Surface Area (BSA) : 1.89 m2 Body Mass Index : 30 kg/m2 (HI) [place] Body Weight (IBW) : 56.59 kg Amanda aWlters Flex Team Rn - 12/12/2021 10:09 EDT Electronically signed by Jannette, [facility] Conversion Assembling Inspector Cerner at 08/31/2022 5:00 PM CDT documented in this encounter Plan of Treatment Not on file documented as of this encounter Visit Diagnoses Not on filedocumented in this encounter Care Teams Nut Blanker Operator Relationship Specialty Start Date End Date Alan Beyer MD [address] [place] [address] PCP - General Family Medicine 06/08/23 documented as of this encounter
--- OUTSIDE RECORDS SUMMARY | 2024-11-05 10:20 | XMS_ITS | Encounter Summary ---
Author Organization [employer] Address [address] [place] [address] Care Team Providers Care Directional Survey Drafter Name Role Phone Alan Beyer MD Primary Care Provider [phone] Encounter Details Date Type Department Care Team (Late st Contact Info) Description 01/06/2019 Transcribed Document [facility] [place] [facility] [place] [address] ProviderJessenia MD [address] [place], [place] [address] Social History Tobacco Use Types Packs/Day Years Used Date Smoking Tobacco: Never Assessed Comments Unknown Sex and Gender Information Value Date Recorded Sex Assigned at Not on file Legal Sex Female 4:28 PM CDT Gender Identity Not on file Sexual Orientation Not on file documented as of this encounter Miscellaneous Notes * Cerner Conversion Note - Jessenia ProviderMD - 01/06/2019 5:48 PM CDT CR Knee Min 4 Vws RT Ordered: 01/06/2019 Auth (Verified) Reason for Exam: knee pain 01/06/2019 14:09 01/06/2019 17:48 (BUTCH KRISHNA) No further action required documented in this encounter Plan of Treatment Not on file documented as of this encounter Visit Diagnoses Not on filedocumented in this encounter Care Teams Directional Survey Drafter Relationship Specialty Start Date End Date Alan Beyer MD [address] [place] [address] PCP - General Family Medicine 06/08/23 documented as of this encounter
--- OUTSIDE RECORDS SUMMARY | 2024-11-05 10:20 | XMS_ITS | Encounter Summary ---
Author Organization [employer] Address [address] [place] [address] Care Team Providers Care Bone Plant Supervisor Name Role Phone Alan Beyer MD Primary Care Provider [phone] Encounter Details Date Type Department Care Team (Late st Contact Info) Description 01/06/2019 Transcribed Document [facility] [place] [facility] [place] [address] ProviderJessenia MD [address] [place] [address] Social History Tobacco Use Types Packs/Day Years Used Date Smoking Tobacco: Never Assessed Comments Unknown Sex and Gender Information Value Date Recorded Sex Assigned at Not on file Legal Sex Female 4:28 PM CDT Gender Identity Not on file Sexual Orientation Not on file documented as of this encounter Miscellaneous Notes * Cerner Conversion Note - Jessenia Alvarez MD - 01/06/2019 1:08 PM CDT [place] [id number] CHARLINE BOND :1980 Visit Time:01/06/2019 Your Visit Summary Your Care Team Admitting Physician - OTIS RODRÍGUEZ MD-EMR PHY, UNKNOWN Attending Physician - OTIS RODRÍGUEZ MD-EMR Primary Care Physician - JORGE LUIS CAMPBELL NP-FAM Referring Physician - SELF, REFERRED (REF), -UNK Your Diagnosis Internal knee problem Knee pain-swelling Medical Information You may obtain a copy [...] do next Follow-Up Appointments Follow Up with JESUS [facility]ARDS When Within 2 to 3 days Comments Call for follow up appointment Call in the AM Where: [address] [facility] [address] [place] [address]- Business (1) Follow Up with [facility] When Within As needed Comments Patient has a primary care physician with [facility] Campbell. For assistance in the future with finding a new primary care physician please contact the Patient Resource Center at [phone]. Follow Up with JORGE LUIS CAMPBELL When Within 2 to 3 days Where: [address] [place] [address]- Business (1) Allergies Bactrim acetaminophen-oxyCODONE clindamycin Toradol baclofen doxycycline escitalopram fentaNYL lidocaine topical 2% gel meperidine morphine penicillin tetanus immune globulin Immunizations This Visit No Immunizations Found Medications What How Much When Instructions Next Dose New acetaminophen-hydrocodone ([place] 5 mg-325 mg oral tablet) 1 Tablet(s) Oral Every 6 Hours as needed for for pain Duration: 2 Day(s) not to exceed 8 tablets/ day Printed Prescription The home medications listed are [...] This Visit (last charted value for your 01/06/2019 visit) No Laboratory or Other Results This Visit Education Materials Knee Pain, Adult Many things can cause knee pain. The pain often goes away on its own with time and rest. If the pain does not go away, tests may be done to find out what is causing the pain. Follow these instructions at home: Activity ??? Rest your knee. ??? Do not do things that cause pain. ??? Avoid activities where both feet leave the ground at the same time (high-impact activities). Examples are running, jumping rope, and doing jumping jacks. General instructions ??? Take medicines only as told by your doctor. ??? Raise (elevate) your knee when you are resting. Make sure your knee is higher than your heart. ??? Sleep with a pillow under your knee. ??? If told, put ice on the knee: ? Put ice in a plastic bag. ? Place a towel between your skin and the bag. ? Leave the ice on for 20 minutes, 2???3 times a day. ??? Ask your doctor if you should wear an elastic knee support. ??? Lose weight if you are overweight. Being overweight can make your knee hurt more. ??? Do not use any tobacco products. These include cigarettes, chewing tobacco, or electronic cigarettes. If you need help quitting, ask your doctor. Smoking may slow down healing. Contact a doctor if: ??? The pain does not stop. ??? The pain changes or gets worse. ??? You have a fever along with knee pain. ??? Your knee gives out or locks up. ??? Your knee swells, and becomes worse. Get help right away if: ??? Your knee feels warm. ??? You cannot move your knee. ??? You have very bad knee pain. ??? You have chest pain. ??? You have trouble breathing. Summary ??? Many things can cause knee pain. The pain often goes away on its own with time and rest. ??? Avoid activities that put stress on your knee. These include running and jumping rope. ??? Get help right away if you cannot move your knee, or if your knee feels warm, or if you have trouble breathing. This information is not intended to replace advice given to you by your health care provider. Make sure you discuss any questions you have with your health care provider. Document Released: 07/27/2009 Document Revised: 04/24/2017 Document Reviewed: 04/24/2017 [employer] Patient Education ?? 2019 Register My Info. Emergency Awareness and Preventative Care STROKE is [...] Assistance with quitting is available by contacting 6-793-BBJH-NOW. This is a free resource providing counseling, [...] was given the opportunity to ask questions. Patient/Financial Systems Administrator Name: Patient/Financial Systems Administrator Signature: Relationship to Patient: Clinician/Hospital Financial Systems Administrator Signature: Please Provide a Telephone Number Where You Can Be Reached: Is it Permissible To Leave a Message? Date: documented in this encounter Plan of Treatment Not on file documented as of this encounter Visit Diagnoses Not on filedocumented in this encounter Care Teams Bone Plant Supervisor Relationship Specialty Start Date End Date Alan Beyer MD [address] [place] [address] PCP - General Family Medicine 06/08/23 documented as of this encounter
--- OUTSIDE RECORDS SUMMARY | 2024-11-05 10:20 | XMS_ITS | Encounter Summary ---
Author Organization [employer] Address [address] [place] [address] Care Team Providers Care Color Making Supervisor Name Role Phone Alan Beyer MD Primary Care Provider [phone] Encounter Details Date Type Department Care Team (Late st Contact Info) Description 10/17/2020 Transcribed Document [facility] [place] [facility] [place] [address] ProviderJessenia MD [address] [place] [address] Social History Tobacco Use Types [...] - 10/17/2020 7:04 PM CDT ED Discharge Vital Signs Entered On: 10/17/2020 19:04 EDT Performed On: 10/17/2020 19:04 EDT by PASCUAL HANKINS ED Discharge Vital Signs Temperature Source : Oral PASCUAL HANKINS - 10/17/2020 19:04 EDT documented in this encounter Plan of Treatment Not on file documented as of this encounter Visit Diagnoses Not on filedocumented in this encounter Care Teams Color Making Supervisor Relationship Specialty Start Date End Date Alan Beyer MD [address] [place] [address] PCP - General Family Medicine 06/08/23 documented as of this encounter
--- OUTSIDE RECORDS SUMMARY | 2024-11-05 10:20 | XMS_ITS | Encounter Summary ---
Author Organization [employer] Address [address] [place] [address] Care Team Providers Care Machinery Dismantler Name Role Phone Alan Beyer MD Primary Care Provider [phone] Encounter Details Date Type Department Care Team (Late st Contact Info) Description 08/19/2021 Transcribed Document [facility] Family Medicine [facility] [place] [address] ProviderJessenia MD [address], [place] [id number] Social History Tobacco Use Types Packs/Day Years [...] MD - 08/19/2021 7:21 PM CDT ED Triage Entered On: 08/19/2021 20:17 EDT Performed On: 08/19/2021 20:14 EDT by Marly Frias RN ED Triage Across the Room Chief Complaint : Pt c/o LEFT back and abd pain, frequent urination, and nausea from the pain. Pt states: I believe I am passing a kidney stone. I thought it was a UTI but apparently it is not. I was peeing blood earlier but now it is crystal clear Triage Date/Time : 08/19/2021 20:14 EDT Marly Frias RN - 08/19/2021 20:14 EDT DCP GENERIC CODE Tracking Acuity : 3 - Urgent Tracking Group : [facility] Marly Frias RN - 08/19/2021 20:14 EDT Mode of Arrival : Ambulatory Transported to ED by : Private vehicle To Room Via : Ambulate Accompanied By : Unaccompanied ED Vital Signs : Document Height & Weight : Document ED Allergies : Document ED Reason for Visit : Document Tetanus Immunization : Unknown Marly Frias RN - 08/19/2021 20:14 EDT Infectious Disease History Does patient have symptoms of COVID-19? : No Has the Patient Been Tested for COVID-19 in the last 14 days? : No, Patient stated Does the Patient state known exposure to a COVID-19 positive case in the last 14 days? : No Patient Vaccinated for COVID-19 : Fully vaccinated Marly Frias RN - 08/19/2021 20:14 EDT Infectious Disease Risk Screening Grid Cough < 2 wks of unknown origin : NO Cough > 2 weeks : NO Blood in Sputum : NO Fever or self-reported Fever : NO Rash of unknown origin : NO Headache : NO Stiff neck : NO Night Sweats : NO Unexplained Weight Loss : NO Diarrhea (3 episode per day) : NO Marly Frias RN - 08/19/2021 20:14 EDT Physical contact outside [place] in the last 30 days : No Hospitalized in Foreign Country : No Infectious Disease History : Chicken pox/Shingles, Herpes, Influenza, Mononucleosis INF Disease TB Screening Calc : 0 INF Disease Recent Travel Calc : 0 Marly Frias RN - 08/19/2021 20:14 EDT Vital Signs ED Temperature Source : Oral Temperature Mode : Fahrenheit Temperature, Fahrenheit : 99 Deg F Clinical Temperature, C : 37.2 Deg C Oxygen Therapy Mode : Room air Peripheral Pulse Rate : 98 bpm Respiratory Rate : 16 Breaths/Min Systolic Blood Pressure : 160 mmHg (HI) Diastolic Blood Pressure : 109 mmHg (HI) Oxygen Saturation : 99 % Marly Frias RN - 08/19/2021 20:14 EDT Allergy (As Of: 08/19/2021 20:17:25 EDT) Allergies (Active) acetaminophen-oxyCODONE Estimated Onset Date: Unspecified ; Comments: Comment 1: throws up and itching ; Created By: Breanna Ivey Rn; Reaction Status: Active ; Category: Drug ; Substance: acetaminophen-oxyCODONE ; Severity: Severe ; Updated By: Breanna Ivey Rn; Source: Patient ; Reviewed Date: 08/19/2021 20:15 EDT baclofen Estimated Onset Date: Unspecified ; Comments: Comment 1: hives and cant breath ; Created By: Breanna Ivey Rn; Reaction Status: Active ; Category: Drug ; Substance: baclofen ; Type: Allergy ; Updated By: Breanna Ivey Rn; Reviewed Date: 08/19/2021 20:15 EDT Bactrim Estimated Onset Date: Unspecified ; Comments: Comment 1: hives not breathing ; Created By: Breanna Ivey Rn; Reaction Status: Active ; Category: Drug ; Substance: Bactrim ; Type: Allergy ; Severity: Severe ; Updated By: Breanna Ivey Rn; Source: Patient ; Reviewed Date: 08/19/2021 20:15 EDT clindamycin Estimated Onset Date: Unspecified ; Comments: Comment 1: Hives, vomiting ; Created By: Talia Eason RN; Reaction Status: Active ; Category: Drug ; Substance: clindamycin ; Type: Allergy ; Severity: Severe ; Updated By: Talia Eason RN; Reviewed Date: 08/19/2021 20:15 EDT doxycycline Estimated Onset Date: Unspecified ; Comments: Comment 1: hives and projectile vomiting ; Created By: Breanna Ivey Rn; Reaction Status: Active ; Category: Drug ; Substance: doxycycline ; Type: Allergy ; Updated By: Breanna Ivey Rn; Reviewed Date: 08/19/2021 20:15 EDT escitalopram Estimated Onset Date: Unspecified ; Comments: Comment 1: unknown ; Created By: Breanna Ivey Rn; Reaction Status: Active ; Category: Drug ; Substance: escitalopram ; Type: Allergy ; Updated By: Breanna Ivey Rn; Reviewed Date: 08/19/2021 20:15 EDT fentaNYL Estimated Onset Date: Unspecified ; Comments: Comment 1: hallucinate and cry ; Created By: Breanna Ivey Rn; Reaction Status: Active ; Category: Drug ; Substance: fentaNYL ; Type: Allergy ; Updated By: Breanna Ivey Rn; Reviewed Date: 08/19/2021 20:15 EDT lidocaine topical 2% gel Estimated Onset Date: Unspecified ; Comments: Comment 1: severe swelling, itching, rash ; Created By: Breanna Ivey Rn; Reaction Status: Active ; Category: Drug ; Substance: lidocaine topical 2% gel ; Type: Allergy ; Updated By: Breanna Ivey Rn; Reviewed Date: 08/19/2021 20:15 EDT meperidine Estimated Onset Date: Unspecified ; Comments: Comment 1: hallucinations and angry ; Created By: Breanna Ivey Rn; Reaction Status: Active ; Category: Drug ; Substance: meperidine ; Type: Allergy ; Updated By: Breanna Ivey Rn; Reviewed Date: 08/19/2021 20:15 EDT morphine Estimated Onset Date: Unspecified ; Comments: Comment 1: severe itching ; Created By: Breanna Ivey Rn; Reaction Status: Active ; Category: Drug ; Substance: morphine ; Type: Allergy ; Updated By: Breanna Ivey Rn; Reviewed Date: 08/19/2021 20:15 EDT penicillin Estimated Onset Date: Unspecified ; Reactions: Hives ; Comments: Comment 1: hives Comment 2: Pt has tolerated cefoxitin in 06/30, 06/01, and trying cefazolin 05/01 ; Created By: JAME ZUNIGA PharmD; Reaction Status: Active ; Category: Drug ; Substance: penicillin ; Type: Allergy ; Updated By: JAME ZUNIGA PharmD; Reviewed Date: 08/19/2021 20:15 EDT tetanus immune globulin Estimated Onset Date: Unspecified ; Comments: Comment 1: adverse reaction I get tetanus and my body will swell up ; Created By: Breanna Ivey Rn; Reaction Status: Active ; Category: Drug ; Substance: tetanus immune globulin ; Type: Allergy ; Updated By: Breanna Ivey Rn; Reviewed Date: 08/19/2021 20:15 EDT Toradol Estimated Onset Date: Unspecified ; Comments: Comment 1: feels like a softball in chest and my chest goes numb ; Created By: Breanna Ivey Rn; Reaction Status: Active ; Category: Drug ; Substance: Toradol ; Type: Allergy ; Updated By: Breanna Ivey Rn; Reviewed Date: 08/19/2021 20:15 EDT Diagnosis Control ED (As Of: 08/19/2021 20:17:25 EDT) Problems(Active) Anxiety (SNOMED CT :42305851 ) Name of Problem: Anxiety ; Recorder: ERICKA ISSA RN; Confirmation: Confirmed ; Classification: Medical ; Code: [id number] ; Contributor System: PowerChart ; Last Updated: 07/26/2015 22:28 EDT ; Life Cycle Date: 07/26/2015 ; Life Cycle Status: Active ; Vocabulary: SNOMED CT At risk for sleep apnea (IMO :63464112 ) Name of Problem: At risk for sleep apnea ; Recorder: SYSTEM, SYSTEM; Confirmation: Confirmed ; Classification: Medical ; Code: [id number] ; Last Updated: 07/13/2021 14:49 EST ; Life Cycle Date: 07/13/2021 ; Life Cycle Status: Active ; Vocabulary: IMO Endometriosis, vagina (SNOMED CT :01177940 ) Name of Problem: Endometriosis, vagina ; Recorder: Breanna Ivey RN; Confirmation: Confirmed ; Classification: Medical ; Code: [id number] ; Contributor System: PowerChart ; Last Updated: 05/24/2018 10:54 EST ; Life Cycle Date: 05/24/2018 ; Life Cycle Status: Active ; Vocabulary: SNOMED CT Kidney stones (SNOMED CT :817035481 ) Name of Problem: Kidney stones ; Recorder: KAYY ANDREW; Confirmation: Confirmed ; Classification: Medical ; Code: 626589255 ; Contributor System: PowerChart ; Last Updated: 06/06/2016 9:30 EST ; Life Cycle Date: 06/06/2016 ; Life Cycle Status: Active ; Vocabulary: SNOMED CT Migraine (SNOMED CT :36669518 ) Name of Problem: Migraine ; Recorder: ERICKA ISSA RN; Confirmation: Confirmed ; Classification: Medical ; Code: [id number] ; Contributor System: PowerChart ; Last Updated: 07/26/2015 22:28 EDT ; Life Cycle Date: 07/26/2015 ; Life Cycle Status: Active ; Vocabulary: SNOMED CT Multiple drug allergies (SNOMED CT :5749789720 ) Name of Problem: Multiple drug allergies ; Recorder: YOVANA WILKERSON NP-FAM; Confirmation: Confirmed ; Classification: Medical ; Code: [id number] ; Contributor System: PowerChart ; Last Updated: 07/13/2021 15:51 EST ; Life Cycle Date: 07/13/2021 ; Life Cycle Status: Active ; Responsible Provider: YOVANA WILKERSON NP-FAM; Vocabulary: SNOMED CT S/P hysterectomy (SNOMED CT :284800631 ) Name of Problem: S/P hysterectomy ; Recorder: LEONID CASTANEDA RN; Confirmation: Confirmed ; Classification: Medical ; Code: [id number] ; Contributor System: [employer] ; Last Updated: 11/06/2019 20:08 EDT ; Life Cycle Date: 11/06/2019 ; Life Cycle Status: Active ; Vocabulary: SNOMED CT Shoulder pain, left (SNOMED CT :92446433 ) Name of Problem: Shoulder pain, left ; Recorder: Breanna Ivey RN; Confirmation: Confirmed ; Classification: Medical ; Code: 09827001 ; Contributor System: [employer] ; Last Updated: 05/24/2018 10:53 EST ; Life Cycle Date: 05/24/2018 ; Life Cycle Status: Active ; Vocabulary: SNOMED CT Thoracic disc herniation (SNOMED CT :937588114 ) Name of Problem: Thoracic disc herniation ; Recorder: YOVANA WILKERSON NP-FAM; Confirmation: Confirmed ; Classification: Medical ; Code: 604734351 ; Contributor System: PowerChart ; Last Updated: 07/13/2021 15:51 EST ; Life Cycle Date: 07/13/2021 ; Life Cycle Status: Active ; Responsible Provider: YOVANA WILKERSON NP-FAM; Vocabulary: SNOMED CT Diagnoses(Active) Abdominal pain Date: 08/19/2021 ; Diagnosis Type: Reason For Visit ; Confirmation: Complaint of ; Clinical Dx: Abdominal pain ; Classification: Medical ; Clinical Service: Non-Specified ; Code: PNED ; Probability: 0 ; Diagnosis Code: [id number] Flank pain Date: 08/19/2021 ; Diagnosis Type: Reason For Visit ; Confirmation: Complaint of ; Clinical Dx: Flank pain ; Classification: Medical ; Clinical Service: Non-Specified ; Code: PNED ; Probability: 0 ; Diagnosis Code: [id number] Nausea Date: 08/19/2021 ; Diagnosis Type: Reason For Visit ; Confirmation: Complaint of ; Clinical Dx: Nausea ; Classification: Medical ; Clinical Service: Non-Specified ; Code: PNED ; Probability: 0 ; Diagnosis Code: [id number] ED Height and Weight Height Source : Stated Height Entry Format : [place] Height, Feet : 5 ft(Converted to: 152 cm, 60 Inch) Height, Inches : 7 Inch(Converted to: 0 ft 7 Inch, 17.78 cm) Clinical Height : 170.18 cm Weight Source, ED : Critical estimated dosing weight Weight Entry Format : [place] Weight, Pounds : 170 lb Clinical Dosing Weight : 77.27 kg Body Surface Area (BSA) : 1.89 m2 Body Mass Index : 26.7 kg/m2 (HI) [place] Body Weight (IBW) : 61.16 kg Marly Frias RN - 08/19/2021 20:14 EDT ED Influenza/Pneumoccocal Vaccine Influenza Immunization, Current Season : Yes Previous Vaccines from Immunization Schedule : No qualifying data available. Marly Frias RN - 08/19/2021 20:14 EDT Electronically signed by Jannette [facility] Conversion Livestock Farmworker Cerner at 08/31/2022 5:27 PM CDT documented in this encounter Plan of Treatment Not on file documented as of this encounter Visit Diagnoses Not on filedocumented in this encounter Care Teams Machinery Dismantler Relationship Specialty Start Date End Date Alan Beyer MD [address] [place] [address] PCP - General Family Medicine 06/08/23 documented as of this encounter
--- OUTSIDE RECORDS SUMMARY | 2024-11-05 10:20 | XMS_ITS | Encounter Summary ---
Author Organization [employer] Address [address] [place] [address] Care Team Providers Care Workers Compensation Specialist Name Role Phone Alan Beyer MD Primary Care Provider [phone] Encounter Details Date Type Department Care Team (Late st Contact Info) Description 11/01/2020 Transcribed Document [facility] Family Medicine [facility] [place] [address] ProviderJessenia MD [address] [place] [address] Social History Tobacco Use Types [...] MD - 11/01/2020 6:07 PM CDT ED Triage Entered On: 11/01/2020 18:36 EDT Performed On: 11/01/2020 18:33 EDT by Karie Goodwin RN ED Triage Across the Room Chief Complaint : Pt C/O RLQ pain X2 weeks, seen at [facility] [place] and told she had ovarian cyst. + nausea Triage Date/Time : 11/01/2020 18:33 EDT Karie Goodwin RN - 11/01/2020 18:33 EDT DCP GENERIC CODE Tracking Acuity : 3 - Urgent Tracking Group : [facility] Karie Goodwin RN - 11/01/2020 18:33 EDT Mode of Arrival : Ambulatory Transported to ED by : Walk in To Room Via : Ambulate Accompanied By : Spouse ED Vital Signs : Document Height & Weight : Document ED Allergies : Document ED Reason for Visit : Document Tetanus Immunization : Unknown Karie Goodwin RN - 11/01/2020 18:33 EDT Infectious Disease History Has the patient [...] Herpes, Influenza, Mononucleosis Tuberculosis Symptoms : None Karie Goodwin RN - 11/01/2020 18:33 EDT Vital Signs ED Temperature Source : Temporal artery scanning Temperature Mode : Fahrenheit Temperature, Fahrenheit : 96.9 Deg F Clinical Temperature, C : 36.1 Deg C Oxygen Therapy Mode : Room air Peripheral Pulse Rate : 105 bpm (HI) Respiratory Rate : 20 Breaths/Min Systolic Blood Pressure : 143 mmHg (HI) Diastolic Blood Pressure : 102 mmHg (HI) Oxygen Saturation : 99 % Karie Goodwin RN - 11/01/2020 18:33 EDT Allergy (As Of: 11/01/2020 18:36:01 EDT) Allergies (Active) acetaminophen-oxyCODONE Estimated Onset Date: Unspecified ; Comments: Comment 1: throws up and itching ; Created By: Breanna Ivey Rn; Reaction Status: Active ; Category: Drug ; Substance: acetaminophen-oxyCODONE ; Severity: Severe ; Updated By: Breanna Ivey Rn; Source: Patient ; Reviewed Date: 10/19/2020 13:32 EDT baclofen Estimated Onset Date: Unspecified ; Comments: Comment 1: hives and cant breath ; Created By: Breanna Ivey Rn; Reaction Status: Active ; Category: Drug ; Substance: baclofen ; Type: Allergy ; Updated By: Breanna Ivey Rn; Reviewed Date: 10/19/2020 13:32 EDT Bactrim Estimated Onset Date: Unspecified ; Comments: Comment 1: hives not breathing ; Created By: Breanna Ivey Rn; Reaction Status: Active ; Category: Drug ; Substance: Bactrim ; Type: Allergy ; Severity: Severe ; Updated By: Breanna Ivey Rn; Source: Patient ; Reviewed Date: 10/19/2020 13:32 EDT clindamycin Estimated Onset Date: Unspecified ; Comments: Comment 1: Hives, vomiting ; Created By: Talia Eason RN; Reaction Status: Active ; Category: Drug ; Substance: clindamycin ; Type: Allergy ; Severity: Severe ; Updated By: Talia Eason RN; Reviewed Date: 10/19/2020 13:32 EDT doxycycline Estimated Onset Date: Unspecified ; Comments: Comment 1: hives and projectile vomiting ; Created By: Breanna Ivey Rn; Reaction Status: Active ; Category: Drug ; Substance: doxycycline ; Type: Allergy ; Updated By: Breanna Ivey Rn; Reviewed Date: 10/19/2020 13:32 EDT escitalopram Estimated Onset Date: Unspecified ; Comments: Comment 1: unknown ; Created By: Breanna Ivey Rn; Reaction Status: Active ; Category: Drug ; Substance: escitalopram ; Type: Allergy ; Updated By: Breanna Ivey Rn; Reviewed Date: 10/19/2020 13:32 EDT fentaNYL Estimated Onset Date: Unspecified ; Comments: Comment 1: hallucinate and cry ; Created By: Breanna Ivey Rn; Reaction Status: Active ; Category: Drug ; Substance: fentaNYL ; Type: Allergy ; Updated By: Breanna Ivey Rn; Reviewed Date: 10/19/2020 13:32 EDT lidocaine topical 2% gel Estimated Onset Date: Unspecified ; Comments: Comment 1: severe swelling, itching, rash ; Created By: Breanna Ivey Rn; Reaction Status: Active ; Category: Drug ; Substance: lidocaine topical 2% gel ; Type: Allergy ; Updated By: Breanna Ivey Rn; Reviewed Date: 10/19/2020 13:32 EDT meperidine Estimated Onset Date: Unspecified ; Comments: Comment 1: hallucinations and angry ; Created By: Breanna Ivey Rn; Reaction Status: Active ; Category: Drug ; Substance: meperidine ; Type: Allergy ; Updated By: Breanna Ivey Rn; Reviewed Date: 10/19/2020 13:32 EDT morphine Estimated Onset Date: Unspecified ; Comments: Comment 1: severe itching ; Created By: Breanna Ivey Rn; Reaction Status: Active ; Category: Drug ; Substance: morphine ; Type: Allergy ; Updated By: Breanna Ivey Rn; Reviewed Date: 10/19/2020 13:32 EDT penicillin Estimated Onset Date: Unspecified ; Reactions: Hives ; Comments: Comment 1: hives Comment 2: Pt has tolerated cefoxitin in 06/30, 06/01, and trying cefazolin 05/01 ; Created By: JAME ZUNIGA PharmD; Reaction Status: Active ; Category: Drug ; Substance: penicillin ; Type: Allergy ; Updated By: JAME ZUNIGA PharmD; Reviewed Date: 10/19/2020 13:32 EDT tetanus immune globulin Estimated Onset Date: Unspecified ; Comments: Comment 1: adverse reaction I get tetanus and my body will swell up ; Created By: Breanna Ivey Rn; Reaction Status: Active ; Category: Drug ; Substance: tetanus immune globulin ; Type: Allergy ; Updated By: Breanna Ivey Rn; Reviewed Date: 10/19/2020 13:32 EDT Toradol Estimated Onset Date: Unspecified ; Comments: Comment 1: feels like a softball in chest and my chest goes numb ; Created By: Breanna Ivey Rn; Reaction Status: Active ; Category: Drug ; Substance: Toradol ; Type: Allergy ; Updated By: Breanna Ivey Rn; Reviewed Date: 10/19/2020 13:32 EDT Diagnosis Control ED (As Of: 11/01/2020 18:36:01 EDT) Problems(Active) Anxiety (SNOMED CT :05879261 ) Name of Problem: Anxiety ; Recorder: ERICKA ISSA RN; Confirmation: Confirmed ; Classification: Medical ; Code: 87612321 ; Contributor System: PowerChart ; Last Updated: 07/26/2015 22:28 EDT ; Life Cycle Date: 07/26/2015 ; Life Cycle Status: Active ; Vocabulary: SNOMED CT Endometriosis, vagina (SNOMED CT :01454415 ) Name of Problem: Endometriosis, vagina ; Recorder: Breanna Ivey RN; Confirmation: Confirmed ; Classification: Medical ; Code: 96467789 ; Contributor System: PowerChart ; Last Updated: 05/24/2018 10:54 EST ; Life Cycle Date: 05/24/2018 ; Life Cycle Status: Active ; Vocabulary: SNOMED CT Kidney stones (SNOMED CT :970013769 ) Name of Problem: Kidney stones ; Recorder: KAYY ANDREW; Confirmation: Confirmed ; Classification: Medical ; Code: 925601769 ; Contributor System: PowerChart ; Last Updated: 06/06/2016 9:30 EST ; Life Cycle Date: 06/06/2016 ; Life Cycle Status: Active ; Vocabulary: SNOMED CT Migraine (SNOMED CT :87445553 ) Name of Problem: Migraine ; Recorder: ERICKA ISSA RN; Confirmation: Confirmed ; Classification: Medical ; Code: 29800411 ; Contributor System: PowerChart ; Last Updated: 07/26/2015 22:28 EDT ; Life Cycle Date: 07/26/2015 ; Life Cycle Status: Active ; Vocabulary: SNOMED CT S/P hysterectomy (SNOMED CT :983455300 ) Name of Problem: S/P hysterectomy ; Recorder: LEONID CASTANEDA RN; Confirmation: Confirmed ; Classification: Medical ; Code: 309600198 ; Contributor System: PowerChart ; Last Updated: 11/06/2019 20:08 EDT ; Life Cycle Date: 11/06/2019 ; Life Cycle Status: Active ; Vocabulary: SNOMED CT Shoulder pain, left (SNOMED CT :33035521 ) Name of Problem: Shoulder pain, left ; Recorder: Breanna Ivey RN; Confirmation: Confirmed ; Classification: Medical ; Code: 49912550 ; Contributor System: [employer] ; Last Updated: 05/24/2018 10:53 EST ; Life Cycle Date: 05/24/2018 ; Life Cycle Status: Active ; Vocabulary: SNOMED CT Diagnoses(Active) Abdominal pain Date: 11/01/2020 ; Diagnosis Type: Reason For Visit ; Confirmation: Complaint of ; Clinical Dx: Abdominal pain ; Classification: Medical ; Clinical Service: Non-Specified ; Code: PNED ; Probability: 0 ; Diagnosis Code: [id number] ED Height and Weight Height Source : Measured Height Entry Format : [place] Height, Feet : 5 ft(Converted to: 152 cm, 60 Inch) Height, Inches : 5 Inch(Converted to: 0 ft 5 Inch, 12.70 cm) Clinical Height : 165.1 cm Weight Source, ED : Standing scale Weight Entry Format : [place] Weight, Pounds : 161 lb Clinical Dosing Weight : 73.18 kg Body Surface Area (BSA) : 1.81 m2 Body Mass Index : 26.8 kg/m2 (HI) [place] Body Weight (IBW) : 56.59 kg Karie Goodwin, RN - 11/01/2020 18:33 EDT Electronically signed by [facility], [facility] Conversion Telephone Surveyor Cerner at 08/31/2022 5:18 PM CDT documented in this encounter Plan of Treatment Not on file documented as of this encounter Visit Diagnoses Not on filedocumented in this encounter Care Teams Workers Compensation Specialist Relationship Specialty Start Date End Date Alan Beyer MD [address] [place] [address] PCP - General Family Medicine 06/08/23 documented as of this encounter
--- OUTSIDE RECORDS SUMMARY | 2024-11-05 10:20 | XMS_ITS | Encounter Summary ---
Author Organization [employer] Address [address] [place] [address] Care Team Providers Care Gameplay Engineer Name Role Phone Alan Beyer MD Primary Care Provider Encounter Details Date Type Department Care Team (Late st Contact Info) Description 12/12/2021 Transcribed Document [facility] [place] [facility] [place] [address] ProviderJessenia MD [address], [place] [address] Social History Tobacco Use Types Packs/Day Years Used Date Smoking Tobacco: Never Assessed Comments Unknown Sex and Gender Information Value Date Recorded Sex Assigned at Not on file Legal Sex Female 4:28 PM CDT Gender Identity Not on file Sexual Orientation Not on file documented as of this encounter Miscellaneous Notes * Cerner Conversion Note - Jessenia ProviderMD - 12/12/2021 10:37 AM CDT Patient: CHARLINE BOND Age: 41 years Sex: Female : 1980 Associated Diagnoses: Anxiety; COVID Author: DERICK DOVE, -EMR Basic Information History source: Patient. Arrival mode: Private vehicle. History limitation: None. Additional information: Chief Complaint from Nursing Triage Note : Chief Complaint 12/12/2021 10:09 EDT Chief Complaint pt states she is covid + since last sunday, states she feels weird, really anxious, super hard to concentrate and it makes me feel dumb no BP meds in a couple of weeks, . History of Present Illness The patient presents with an upper respiratory infection. The onset was 1 weeks ago. The course/duration of symptoms is constant. The degree at present is moderate. The exacerbating factor is none. The relieving factor is none. Risk factors consist of none. Therapy today: over the counter medications. Associated symptoms: none. 41-year-old female presents complaining of COVID. She states she tested positive last Sunday. Since then she has been very fatigued, states she feels foggy and confused. She denies chest pain or shortness of breath. She denies measured fevers. She denies grecia urinary symptoms. She has been taking OTC medications without improvement.. Review of Systems Constitutional symptoms: Fatigue, No fever, ENMT symptoms: Nasal congestion. Respiratory symptoms: Cough, No shortness of breath, Cardiovascular symptoms: No chest pain, Neurologic symptoms: No headache, no altered level of consciousness. Psychiatric symptoms: Anxiety. Health Status Allergies: Allergic Reactions (Selected) Severe [...] as documented in chart. Surgical history: Clavicle (403122325). Tympanostomy (7088241213). Adenoids ([id number]). shoulder surgery. Gallbladder absent ([id number]). Tubal ligation (355561328). Hysterectomy (145508569). Right knee ([id number]). Comments: 05/03/2020 15:32 Jyoti Tilley Rn menisectomy, [...] 1 week ago Alcohol Use Frequency Monthly 09/14/2021 Alcohol Use History, Social Habits Yes Days Per Week of Alcohol Use 7 Number of Drinks per Day 1 Total Drinks Per Week 7 Date/Time of Last Drink 09/12/21 Alcohol Use in Last Twelve Months Yes Alcohol Use Frequency Socially Nutrition/Health 05/24/2018 Type of diet: Regular Substance [...] Use 17 . Problem list: Active Problems (9) Anxiety At risk for sleep apnea Endometriosis, vagina Kidney stones Migraine Multiple drug allergies S/P hysterectomy Shoulder pain, left Thoracic disc herniation . Physical Examination Vital Signs Vital Signs/Vital Measures 12/12/2021 10:09 EDT Systolic Blood Pressure 142 mmHg HI Diastolic Blood Pressure 108 mmHg HI Temperature Source Oral Temperature Mode Fahrenheit Temperature, Fahrenheit 98.7 Deg F Clinical Temperature, C 37.1 Deg C Peripheral Pulse Rate 99 bpm Respiratory Rate 16 Breaths/Min Oxygen Therapy Mode Room air . Oxygen saturation. General: Alert, no acute distress. Skin: Warm, dry. Head: Normocephalic, atraumatic. Neck: Supple, trachea midline. Eye: Pupils are equal, round and reactive to light, extraocular movements are intact. Ears, nose, mouth and throat: Oral mucosa moist. Cardiovascular: Regular rate and rhythm, No murmur. Respiratory: Lungs are clear to auscultation, respirations are non-labored, breath sounds are equal. Gastrointestinal: Soft, Nontender, Non distended. Musculoskeletal: No deformity. Neurological: Alert and oriented to person, place, time, and situation, No focal neurological deficit observed, CN II-XII intact, normal sensory observed, normal motor observed. Psychiatric: Cooperative, appropriate mood & affect. Medical Decision Making Differential Diagnosis: Upper respiratory infection, bronchitis. Documents reviewed: Emergency department nurses' notes. Results review: Lab results : Lab Results 12/12/2021 10:36 EDT Sodium Level 139 mmol/L Potassium Level 3.8 mmol/L Chloride Level 104 mmol/L Carbon Dioxide Level 28 mmol/L Anion Gap 11 Glucose Level 102 mg/dL Blood Urea Nitrogen 18 mg/dL Creatinine Level 1.02 mg/dL eGFR >60 mL/min/1.73m2 eGFR NonAfrican 60 mL/min/1.73m2 Bun/Creatinine 17.6 Calcium Level 8.6 mg/dL Protein Total 7.6 Gram/dL Albumin Level 3.8 Gram/dL Globulin 3.8 Gram/dL A/G Ratio 1.0 LOW Bilirubin Total 0.2 mg/dL Alk Phos 92 Units/Liter AST 15 Units/Liter ALT 20 Units/Liter WBC 4.7 K/uL RBC 3.55 Million/uL LOW Hgb 12.5 Gram/dL Hct 37.1 % MCV 104.5 fL HI MCH 35.2 pg HI MCHC 33.7 Gram/dL Platelet Count 215 K/uL MPV 10.0 fL RDW 12.0 % Neut % 63.3 % Neut # 2.98 K/uL Lymph % 27.8 % Lymph # 1.31 K/uL [place] % 7.0 % [place] # 0.33 K/uL Eos % 1.1 % Eos # 0.05 K/uL Baso % 0.4 % Baso # 0.02 K/uL Slide Review No IG# 0 x10(3)/uL IG% 0 % Urine Type. U CleanCatch Urine Color Yellow Urine Appearance Clear Urine Specific [place] 1.015 Urine pH Dipstick 6.0 Urine Leukocyte Esterase Negative Urine Nitrite Negative Urine Protein Dipstick Negative Urine Glucose Dipstick Normal Urine Ketones Dipstick Negative Urine Urobilinogen Dipstick Normal Urine Bilirubin Dipstick Negative Urine Blood Dipstick Negative Urine Culture if Indicated Not Indicated HCG Urine Qualitative Negative Procalcitonin <0.05 ng/mL UDS pH 5.9 NA UDS Amp Negative UDS Ade Negative UDS Benzo Positive UDS Claribel Negative UDS Meth Negative UDS Opi Negative UDS Oxy Negative UDS PCP Negative UDS TCA Negative UDS THC Negative Buprenorphine Screen, Urine Negative . Notes: 41-year-old female presenting with symptoms as described. Vital signs stable. No emergent conditions identified, no reasons for admission or further workup. I recommended continued ongoing symptomatic therapy for COVID-19.. Impression and Plan Diagnosis Anxiety - Discharge, Medical COVID - Discharge, Medical Plan Condition: Stable. Disposition: Discharged Admit/Transfer/Discharge: Discharge (Order): Start: 12/12/2021 12:35 EDT, Discharge to: Home. Patient was given the following educational materials: 10 Things You Can Do to Manage Your COVID-19 Symptoms at Home - [facility] (11/26/2020), COVID-19: Quarantine and Isolation - [facility] (06/09/21). Follow up with: ; Follow up with primary care provider Within 2 to 3 days. Counseled: Patient, Regarding diagnosis, Regarding diagnostic results, Regarding treatment plan, Patient indicated understanding of instructions. documented in this encounter Plan of Treatment Not on file documented as of this encounter Visit Diagnoses Not on filedocumented in this encounter Care Teams Gameplay Engineer Relationship Specialty Start Date End Date Alan Beyer MD [address] [place] [address] PCP - General Family Medicine 06/08/23 documented as of this encounter
--- OUTSIDE RECORDS SUMMARY | 2024-11-05 10:20 | XMS_ITS | Encounter Summary ---
Author Organization [employer] Address [address] [place] [address] Care Team Providers Care Grain Farmer Name Role Phone Alan Beyer MD Primary Care Provider [phone] Encounter Details Date Type Department Care Team (Late st Contact Info) Description 02/02/2019 Transcribed Document [facility] [place] [address] ProviderJessenia MD [address] [place] [address] Social History Tobacco Use Types Packs/Day Years Used Date Smoking Tobacco: Never Assessed Comments Unknown Sex and Gender Information Value Date Recorded Sex Assigned at Not on file Legal Sex Female 4:28 PM CDT Gender Identity Not on file Sexual Orientation Not on file documented as of this encounter Miscellaneous Notes * Cerner Conversion Note - Jessenia Alvarez MD - 02/02/2019 4:47 PM CDT [place] [id number] CHARLINE BOND :1980 Visit Time:02/02/2019 Your Visit Summary Your Care Team Admitting Physician - GIANCARLO HALEY MD-EMR PRIYA, UNKNOWN Attending Physician - GIANCARLO HALEY MD-EMR Primary Care Physician - PRIYA, NOT LISTED Referring Physician - PRIYA, SELF REFERRED Your Diagnosis Abdominal pain Acute abdominal pain Vomiting Medical Information You may obtain a [...] up with primary care provider When Within 1 day Comments Take Medications as directed. Return if condition worsens or persists. For assistance in the future with finding a primary care physician please contact the Patient Resource Center at [phone]. Follow Up with [facility] When Within As needed Comments Patient stated she is currently established with Martha Quarles and/or Eveline Campbell. Feel free to contact our Patient Resource Center at [phone] for any future Physician scheduling needs. Allergies Bactrim acetaminophen-oxyCODONE clindamycin Toradol baclofen doxycycline escitalopram fentaNYL lidocaine topical 2% gel meperidine morphine penicillin tetanus immune globulin Immunizations This Visit No Immunizations Found Medications What How Much When Instructions Next Dose New promethazine (promethazine 25 mg oral tablet) 1 Tablet(s) Oral Every 6 Hours as needed for for nausea/vomiting Duration: 3 Day(s) Pickup at [facility] Pharmacy Information [facility]: [address], [place] [id number] [phone] The home medications listed are only as [...] This Visit (last charted value for your 02/02/2019 visit) Hematology 02/02/19 12:04:00 WBC: 6.3 K/uL -- Normal range between ( 3.9 and 10.0 ) RBC: 3.67 Million/uL -- Normal range between ( 3.93 and 5.22 ) Hct: 38.6 % -- Normal range between ( 34.1 and 44.9 ) Hgb: 13.1 Gram/dL -- Normal range between ( 11.2 and 15.7 ) Platelet Count: 195 K/uL -- Normal range between ( 163 and 369 ) MCH: 35.7 pg -- Normal range between ( 25.6 and 32.2 ) MCHC: 33.9 Gram/dL -- Normal range between ( 32.3 and 36.5 ) MCV: 105.2 fL -- Normal range between ( 79.0 and 94.8 ) Slide Review: No Eos %: 0.5 % -- Normal range between ( 1.0 and 7.0 ) [place] #: 0.37 K/uL -- Normal range between ( 0.24 and 0.82 ) Eos #: 0.03 K/uL -- Normal range between ( 0.04 and 0.54 ) [place] %: 5.8 % -- Normal range between ( 4.7 and 12.5 ) Baso %: 0.3 % -- Normal range between ( 0.0 and 1.0 ) Baso #: 0.02 K/uL -- Normal range between ( 0.01 and 0.08 ) RDW: 12.2 % -- Normal range between ( 11.6 and 14.4 ) Neut %: 55.2 % -- Normal range between ( 34.0 and 71.0 ) Neut #: 3.50 K/uL -- Normal range between ( 1.56 and 6.13 ) Lymph %: 37.9 % -- Normal range between ( 19.3 and 53.0 ) Lymph #: 2.40 K/uL -- Normal range between ( 1.18 and 3.74 ) MPV: 9.7 fL -- Normal range between ( 9.4 and 12.4 ) IG#: 0 x10(3)/uL IG%: 0 % -- Normal range between ( 0 and 1 ) Urinalysis 02/02/19 12:04:00 Ur RBC: None Seen Urine Nitrite: Negative Urine Leukocyte Esterase: Negative Urine Appearance: Clear Urine Glucose Dipstick: Negative Urine Blood Dipstick: Negative Urine Type: U CleanCatch Urine Urobilinogen Dipstick: 0.2 EU/dL -- Normal range between ( 0.2 and 1.0 ) Urine Protein Dipstick: Trace Ur Bacteria: Trace Ur Squamous Epithelial Cells: 2-5 /HPF Urine Color: DK YELLOW Ur WBC: 2-5 /HPF Urine Ketones Dipstick: Trace Ur Mucous: Trace Urine pH Dipstick: 5.5 -- Normal range between ( 6.0 and 8.0 ) Urine Bilirubin Dipstick: Small Urine Specific [place]: 1.039 -- Normal range between ( 1.005 and 1.030 ) General Chemistry 02/02/19 12:04:00 Creatinine Level: 0.76 mg/dL -- Normal range between ( 0.55 and 1.02 ) Sodium Level: 141 mmol/L -- Normal range between ( 136 and 146 ) Potassium Level: 3.6 mmol/L -- Normal range between ( 3.5 and 5.1 ) Chloride Level: 111 mmol/L -- Normal range between ( 102 and 112 ) Carbon Dioxide Level: 25 mmol/L -- Normal range between ( 21 and 32 ) Anion Gap: 9 -- Normal range between ( 9 and 20 ) Bilirubin Total: 0.3 mg/dL -- Normal range between ( 0.2 and 1.3 ) A/G Ratio: 1.0 -- Normal range between ( 1.1 and 2.5 ) ALT: 10 Units/Liter -- Normal range between ( 12 and 78 ) AST: 6 Units/Liter -- Normal range between ( 5 and 37 ) Globulin: 3.6 Gram/dL -- Normal range between ( 1.5 and 4.5 ) Alk Phos: 88 Units/Liter -- Normal range between ( 27 and 136 ) Bun/Creatinine: 19.7 -- Normal range between ( 8.0 and 20.0 ) Calcium Level: 8.3 mg/dL -- Normal range between ( 8.5 and 10.1 ) eGFR : >60 mL/min/1.73m2 eGFR NonAfrican: >60 mL/min/1.73m2 Glucose Level: 94 mg/dL -- Normal range between ( 74 and 106 ) Blood Urea Nitrogen: 15 mg/dL -- Normal range between ( 7 and 22 ) Protein Total: 7.3 Gram/dL -- Normal range between ( 6.4 and 8.2 ) Albumin Level: 3.7 Gram/dL -- Normal range between ( 3.4 and 5.0 ) Computed Tomography 02/02/19 13:27:03 CT Abdomen Pelvis W: CT Abdomen Pelvis W Ultrasound 02/02/19 15:21:57 US Transvaginal Non Ob: US Transvaginal Non Ob Education Materials Abdominal Pain, Adult Many things can cause belly (abdominal) pain. Most times, belly pain is not dangerous. Many cases of belly pain can be watched and treated at home. Sometimes belly pain is serious, though. Your doctor will try to find the cause of your belly pain. Follow these instructions at home: ??? Take [id number] and prescription medicines only as told by [...] have watery poop (diarrhea) for more than 2???3 days. ??? You [...] 10/16/2008 Document Revised: 11/17/2016 Document Reviewed: 10/11/2016 [employer] Interactive Patient Education ?? 2019 [employer] Emergency Awareness and Preventative Care STROKE [...] Assistance with quitting is available by contacting [facility]. This is a free resource providing counseling, [...] was given the opportunity to ask questions. Patient/Oval Or Circular Glass Cutter Name: Patient/Oval Or Circular Glass Cutter Signature: Relationship to Patient: Clinician/Hospital Oval Or Circular Glass Cutter Signature: Please Provide a Telephone Number Where You Can Be Reached: Is it Permissible To Leave a Message? Date: documented in this encounter Plan of Treatment Not on file documented as of this encounter Visit Diagnoses Not on filedocumented in this encounter Care Teams Grain Farmer Relationship Specialty Start Date End Date Alan Beyer MD [address] [place] [address] PCP - General Family Medicine 06/08/23 documented as of this encounter
--- OUTSIDE RECORDS SUMMARY | 2024-11-05 10:20 | XMS_ITS | Encounter Summary ---
Author Organization [employer] Address [address] [place] [address] Care Team Providers Care Grain Unloader Name Role Phone Alan Beyer MD Primary Care Provider [phone] Encounter Details Date Type Department Care Team (Late st Contact Info) Description 08/19/2021 Transcribed Document [facility] [place] [facility] [place] [address] ProviderJessenia MD [address] [place], [place] [address] Social History Tobacco Use Types Packs/Day Years Used Date Smoking Tobacco: Never Assessed Comments Unknown Sex and Gender Information Value Date Recorded Sex Assigned at Not on file Legal Sex Female 4:28 PM CDT Gender Identity Not on file Sexual Orientation Not on file documented as of this encounter Miscellaneous Notes * Cerner Conversion Note - Jessenia ProviderMD - 08/19/2021 10:50 PM CDT Electronically signed by [facility] Conversion Sales And Service Consultant Cerner at 08/31/2022 5:14 PM CDT documented in this encounter Plan of Treatment Not on file documented as of this encounter Visit Diagnoses Not on filedocumented in this encounter Care Teams Grain Unloader Relationship Specialty Start Date End Date Alan Beyer MD [address] [place] [address] PCP - General Family Medicine 06/08/23 documented as of this encounter
--- OUTSIDE RECORDS SUMMARY | 2024-11-05 10:20 | XMS_ITS | Encounter Summary ---
Author Organization [employer] Address [address] [place] [address] Care Team Providers Care Diversity Intern Name Role Phone Alan Beyer MD Primary Care Provider [phone] Encounter Details Date Type Department Care Team (Late st Contact Info) Description 09/14/2021 Transcribed Document [facility] [place] [facility] [place] [address] ProviderJessenia MD [address] [place], [place] [id number] Social History Tobacco Use Types Packs/Day Years Used Date Smoking Tobacco: Never Assessed Comments Unknown Sex and Gender Information Value Date Recorded Sex Assigned at Not on file Legal Sex Female 4:28 PM CDT Gender Identity Not on file Sexual Orientation Not on file documented as of this encounter Miscellaneous Notes * Cerner Conversion Note - Jessenia Alvarez MD - 09/14/2021 4:18 PM CDT CR Chest 1 Vw Portable Ordered: 09/14/2021 Modified Reason for Exam: Chest Pain 09/14/2021 15:19 09/14/2021 16:18 (JENNIFER HOWELL PA) Reviewed by Provider, No further action required x1 documented in this encounter Plan of Treatment Not on file documented as of this encounter Visit Diagnoses Not on filedocumented in this encounter Care Teams Diversity Intern Relationship Specialty Start Date End Date Alan Beyer MD [address] [place] [address] PCP - General Family Medicine 06/08/23 documented as of this encounter
--- OUTSIDE RECORDS SUMMARY | 2024-11-05 10:20 | XMS_ITS | Encounter Summary ---
Author Organization [employer] Address [address] [place] [address] Care Team Providers Care Terrazzo Supervisor Name Role Phone Alan Beyer MD Primary Care Provider [phone] Encounter Details Date Type Department Care Team (Late st Contact Info) Description 01/06/2019 Transcribed Document [facility] [place] [facility] [place] [address] ProviderJessenia MD [address] [place] [address] Social History Tobacco Use Types Packs/Day [...] MD - 01/06/2019 10:49 AM CDT ED Triage Entered On: 01/06/2019 10:55 EDT Performed On: 01/06/2019 10:50 EDT by RASTA BUCKLEY RN ED Triage Across the Room Triage Date/Time : 01/06/2019 10:50 EDT Chief Complaint : c/o rt knee pain s/p injury in october, felt poppin this am after stepping down on it. pt limping to triage RASTA BUCKLEY RN - 01/06/2019 10:50 EDT DCP GENERIC CODE Tracking Acuity : 4 - Non - Urgent Tracking Group : [facility] RASTA BUCKLEY RN - 01/06/2019 10:50 EDT Mode of Arrival : Ambulatory Transported to ED by : Private vehicle To Room Via : Ambulate Accompanied By : Unaccompanied ED Vital Signs : Document Height & Weight : Document ED Allergies : Document ED Reason for Visit : Document Tetanus Immunization : Unknown RASTA BUCKLEY RN - 01/06/2019 10:50 EDT Infectious Disease History Infectious Disease History : Chicken pox/Shingles, Herpes Fever/Chills Last 48 Hours : No Travel To Regions with Travel Advisories : No Travel Outside [place] Within Last 30 Days : No Contact With Traveler to Advisory Region : No Tuberculosis Symptoms : None RASTA BUCKLEY RN - 01/06/2019 10:50 EDT Vital Signs ED Temperature Source : Tympanic Temperature Mode : Fahrenheit Temperature, Fahrenheit : 97.5 Deg F ED Pain : Yes Clinical Temperature, C : 36.4 Deg C Oxygen Therapy Mode : Room air Peripheral Pulse Rate : 116 bpm (HI) Respiratory Rate : 18 Breaths/Min Systolic Blood Pressure : 125 mmHg Diastolic Blood Pressure : 91 mmHg (HI) Oxygen Saturation : 100 % RASTA BUCKLEY RN - 01/06/2019 10:50 EDT Allergy (As Of: 01/06/2019 10:55:21 EDT) Allergies (Active) acetaminophen-oxyCODONE Estimated Onset Date: Unspecified ; Comments: Comment 1: throws up and itching ; Created By: Breanna Ivey Rn; Reaction Status: Active ; Category: Drug ; Substance: acetaminophen-oxyCODONE ; Severity: Severe ; Updated By: Breanna Ivey Rn; Source: Patient ; Reviewed Date: 01/06/2019 10:53 EDT baclofen Estimated Onset Date: Unspecified ; Comments: Comment 1: hives and cant breath ; Created By: Breanna Ivey Rn; Reaction Status: Active ; Category: Drug ; Substance: baclofen ; Type: Allergy ; Updated By: Breanna Ivey Rn; Reviewed Date: 01/06/2019 10:53 EDT Bactrim Estimated Onset Date: Unspecified ; Comments: Comment 1: hives not breathing ; Created By: Breanna Ivey Rn; Reaction Status: Active ; Category: Drug ; Substance: Bactrim ; Type: Allergy ; Severity: Severe ; Updated By: Breanna Ivey Rn; Source: Patient ; Reviewed Date: 01/06/2019 10:53 EDT clindamycin Estimated Onset Date: Unspecified ; Created By: Isi Khoury Rn; Reaction Status: Active ; Category: Drug ; Substance: clindamycin ; Type: Allergy ; Severity: Severe ; Updated By: Isi Khoury Rn; Reviewed Date: 01/06/2019 10:53 EDT doxycycline Estimated Onset Date: Unspecified ; Comments: Comment 1: hives and projectile vomiting ; Created By: Breanna Ivey Rn; Reaction Status: Active ; Category: Drug ; Substance: doxycycline ; Type: Allergy ; Updated By: Breanna Ivey Rn; Reviewed Date: 01/06/2019 10:53 EDT escitalopram Estimated Onset Date: Unspecified ; Comments: Comment 1: unknown ; Created By: Breanna Ivey Rn; Reaction Status: Active ; Category: Drug ; Substance: escitalopram ; Type: Allergy ; Updated By: Breanna Ivey Rn; Reviewed Date: 01/06/2019 10:53 EDT fentaNYL Estimated Onset Date: Unspecified ; Comments: Comment 1: hallucinate and cry ; Created By: Breanna Ivey Rn; Reaction Status: Active ; Category: Drug ; Substance: fentaNYL ; Type: Allergy ; Updated By: Breanna Ivey Rn; Reviewed Date: 01/06/2019 10:53 EDT lidocaine topical 2% gel Estimated Onset Date: Unspecified ; Comments: Comment 1: severe swelling, itching, rash ; Created By: Breanna Ivey Rn; Reaction Status: Active ; Category: Drug ; Substance: lidocaine topical 2% gel ; Type: Allergy ; Updated By: Breanna Ivey Rn; Reviewed Date: 01/06/2019 10:53 EDT meperidine Estimated Onset Date: Unspecified ; Comments: Comment 1: hallucinations and angry ; Created By: Breanna Ivey Rn; Reaction Status: Active ; Category: Drug ; Substance: meperidine ; Type: Allergy ; Updated By: Breanna Ivey Rn; Reviewed Date: 01/06/2019 10:53 EDT morphine Estimated Onset Date: Unspecified ; Comments: Comment 1: severe itching ; Created By: Breanna Ivey Rn; Reaction Status: Active ; Category: Drug ; Substance: morphine ; Type: Allergy ; Updated By: Breanna Ivey Rn; Reviewed Date: 01/06/2019 10:53 EDT penicillin Estimated Onset Date: Unspecified ; Comments: Comment 1: hives ; Created By: Breanna Ivey Rn; Reaction Status: Active ; Category: Drug ; Substance: penicillin ; Type: Allergy ; Updated By: Breanna Ivey Rn; Reviewed Date: 01/06/2019 10:53 EDT tetanus immune globulin Estimated Onset Date: Unspecified ; Comments: Comment 1: adverse reaction I get tetanus and my body will swell up ; Created By: Breanna Ivey Rn; Reaction Status: Active ; Category: Drug ; Substance: tetanus immune globulin ; Type: Allergy ; Updated By: Breanna Ivey Rn; Reviewed Date: 01/06/2019 10:53 EDT Toradol Estimated Onset Date: Unspecified ; Comments: Comment 1: feels like a softball in chest and my chest goes numb ; Created By: Breanna Ivey Rn; Reaction Status: Active ; Category: Drug ; Substance: Toradol ; Type: Allergy ; Updated By: Breanna Ivey Rn; Reviewed Date: 01/06/2019 10:53 EDT Diagnosis Control ED (As Of: 01/06/2019 10:55:21 EDT) Problems(Active) Anxiety (SNOMED CT :37868308 ) Name of Problem: Anxiety ; Recorder: ERICKA ISSA RN; Confirmation: Confirmed ; Classification: Medical ; Code: [id number] ; Contributor System: D2S ; Last Updated: 07/26/2015 22:28 EDT ; Life Cycle Date: 07/26/2015 ; Life Cycle Status: Active ; Vocabulary: SNOMED CT Endometriosis, vagina (SNOMED CT :77323047 ) Name of Problem: Endometriosis, vagina ; Recorder: Breanna Ivey Rn; Confirmation: Confirmed ; Classification: Medical ; Code: 11670458 ; Contributor System: PowerChart ; Last Updated: 05/24/2018 10:54 EST ; Life Cycle Date: 05/24/2018 ; Life Cycle Status: Active ; Vocabulary: SNOMED CT Kidney stones (SNOMED CT :677770563 ) Name of Problem: Kidney stones ; Recorder: KAYY ANDREW; Confirmation: Confirmed ; Classification: Medical ; Code: [id number] ; Contributor System: PowerChart ; Last Updated: 06/06/2016 9:30 EST ; Life Cycle Date: 06/06/2016 ; Life Cycle Status: Active ; Vocabulary: SNOMED CT Migraine (SNOMED CT :59702952 ) Name of Problem: Migraine ; Recorder: ERICKA ISSA RN; Confirmation: Confirmed ; Classification: Medical ; Code: [id number] ; Contributor System: D2S ; Last Updated: 07/26/2015 22:28 EDT ; Life Cycle Date: 07/26/2015 ; Life Cycle Status: Active ; Vocabulary: SNOMED CT Shoulder pain, left (SNOMED CT :21190082 ) Name of Problem: Shoulder pain, left ; Recorder: Breanna Ivey Rn; Confirmation: Confirmed ; Classification: Medical ; Code: 95328242 ; Contributor System: VertascaleChart ; Last Updated: 05/24/2018 10:53 EST ; Life Cycle Date: 05/24/2018 ; Life Cycle Status: Active ; Vocabulary: SNOMED CT Diagnoses(Active) Knee pain-swelling Date: 01/06/2019 ; Diagnosis Type: Reason For Visit ; Confirmation: Complaint of ; Clinical Dx: Knee pain-swelling ; Classification: Medical ; Clinical Service: Emergency medicine ; Code: PNED ; Probability: 0 ; Diagnosis Code: [id number] ED Height and Weight Height Source : Stated Height Entry Format : Coffee Height, Feet : 5 ft(Converted to: 152 cm, 60 Inch) Height, Inches : 5 Inch(Converted to: 0 ft 5 Inch, 12.70 cm) Clinical Height : 165.1 cm Weight Source, ED : Standing scale Weight Entry Format : Coffee Weight, Pounds : 160 lb Clinical Dosing Weight : 72.73 kg Body Surface Area (BSA) : 1.8 m2 Body Mass Index : 26.7 kg/m2 (HI) [place] Body Weight (IBW) : 56.59 kg RASTA BUCKLEY RN - 01/06/2019 10:50 EDT Pain Assessment Pain Assessment : Initial assessment Pain Scale Used : 0-10 Scale Location : Knee, left RASTA BUCKLEY RN - 01/06/2019 10:50 EDT Pain Scale Intensity : 7 RASTA BUCKLEY RN - 01/06/2019 10:50 EDT Image 4 - Images currently included in the form version of this document have not been included in the text rendition version of the form. Electronically signed by Jannette, [facility] Conversion Chain Link Fence Installer Cerner at 08/31/2022 5:18 PM CDT documented in this encounter Plan of Treatment Not on file documented as of this encounter Visit Diagnoses Not on filedocumented in this encounter Care Teams Terrazzo Supervisor Relationship Specialty Start Date End Date Alan Beyer MD [address] [place] [address] PCP - General Family Medicine 06/08/23 documented as of this encounter
--- OUTSIDE RECORDS SUMMARY | 2024-11-05 10:20 | XMS_ITS | Encounter Summary ---
Author Organization [facility] [employer] Address [address] [place] [address] Care Team Providers Care Airplane Designer Name Role Phone Alan Beyer MD Primary Care Provider Encounter Details Date Type Department Care Team (Late st Contact Info) Description 09/14/2021 Transcribed Document [facility] [place] [facility] [place] [address] ProviderJessenia MD [address] [place] [address] Social History Tobacco Use Types [...] Alvarez MD - 09/14/2021 12:35 PM CDT [place] Violence Assessment Entered On: 09/14/2021 13:20 EDT Performed On: [...] filedocumented in this encounter Care Teams Airplane Designer Relationship Specialty Start Date End Date Alan Beyer MD [address] [place] [address] PCP - General Family Medicine 06/08/23 documented as of this encounter
--- OUTSIDE RECORDS SUMMARY | 2024-11-05 10:20 | XMS_ITS | Encounter Summary ---
Author Organization [employer] Address [address] [place] [address] Care Team Providers Care Duct Layer Helper Name Role Phone Alan Beyer MD Primary Care Provider [phone] Encounter Details Date Type Department Care Team (Late st Contact Info) Description 01/06/[address] [facility] [place] [address] ProviderJessenia MD [address] [place] [address] Social History Tobacco Use Types [...] Alvarez MD - 01/06/2019 1:02 PM CDT [address] [place] [address] PERSON INFORMATION Name CHARLINE BOND Age 38 Years 1980 Sex Female Language Yakut PCP JORGE LUIS CAMPBELL NP-CLAUDIO Marital Status Med Service Emergency Medicine Acct# Arrival 01/06/2019 10:49:00 Visit Reason Knee pain-swelling; KNEE PAIN Acuity 4 - Non - Urgent LOS 000 02:13 Depart Date: 00:00 AM Address: [address] [place] [id number] Comment: PROVIDER INFORMATION Provider Role Assigned Unassigned TETO MCKNIGHT PA-C ED Physician 01/06/2019 11:27:44 Luis Choudhury, gang boss Nurse 01/06/2019 12:06:25 DIAGNOSIS Internal knee problem PHYS DOC NOTES VITALS INFORMATION Vital Sign Triage Latest Temp Source Tympanic Tympanic Temp Mode Fahrenheit Fahrenheit Temp Fahrenheit 97.5 Deg F 97.5 Deg F Temp Celsius 02 Sat 100 % 100 % Respiratory Rate 18 Breaths/Min 18 Breaths/Min Peripheral Pulse Rate 116 bpm 116 bpm Apical Heart Rate Blood Pressure 125 mmHg / 91 mmHg 125 mmHg / 91 mmHg Comment: MEDICAL INFORMATION Allergy Info: fentaNYL; acetaminophen-oxyCODONE; Toradol; Bactrim; escitalopram; lidocaine topical 2% gel; tetanus immune globulin; baclofen; morphine; penicillin; clindamycin; doxycycline; meperidine Medications: Comment: DISCHARGE INFORMATION Discharge Disposition: Discharge Location: PATIENT EDUCATION INFORMATION Instructions: Follow up: With: Address: When: Patient Resource Center Within As needed Comments: Patient has a primary care physician with Jorge Luis Campbell. For assistance in the future with finding a new primary care physician please contact the Patient Resource Center at [phone]. With: Address: When: JORGE LUIS CAMPBELL [facility] [address], [address] [place] [address] [facility] (1) Within 2 to 3 days Comment: documented in this encounter Plan of Treatment Not on file documented as of this encounter Visit Diagnoses Not on filedocumented in this encounter Care Teams Duct Layer Helper Relationship Specialty Start Date End Date Alan Beyer MD [address] [place] [address] PCP - General Family Medicine 06/08/23 documented as of this encounter
--- OUTSIDE RECORDS SUMMARY | 2024-11-05 10:21 | XMS_ITS | Encounter Summary ---
Author Organization [employer] Address [address] [place] [address] Care Team Providers Care Pastry Cook Name Role Phone Alan Beyer MD Primary Care Provider [phone] Encounter Details Date Type Department Care Team (Late st Contact Info) Description 12/23/2020 Transcribed Document [facility] [place] [facility] [place] [address] ProviderJessenia MD [address] [place] [address] Social History Tobacco Use Types Packs/Day Years Used Date Smoking Tobacco: Never Assessed Comments Unknown Sex and Gender Information Value Date Recorded Sex Assigned at Not on file Legal Sex Female 4:28 PM CDT Gender Identity Not on file Sexual Orientation Not on file documented as of this encounter Miscellaneous Notes * Cerner Conversion Note - Jessenia Alvarez MD - 12/23/2020 2:01 PM CDT [place] [id number] CHARLINE BOND :1980 Visit Time:12/23/2020 Your Visit [...] Within 2 to 3 days Where: [address] [place] [address]- Business (1) Allergies Bactrim acetaminophen-oxyCODONE clindamycin Toradol [...] Medicines to relieve symptoms. These can include bsho-oxl-jbqhxpu medicine for pain and fever, medicines for [...] these instructions at home: Medicines ??? Take euab-qaj-bqqffuq and prescription medicines only as told by [...] and water are not available, use hand mold stamper. ??? Avoid close contact with friends and [...] provider. Document Revised: 04/12/2018 Document Reviewed: 09/08/2016 [employer] Patient Education ?? 2020 [employer]. Emergency Awareness and Preventative Care STROKE is [...] Assistance with quitting is available by contacting 6-859-CMAT-NOW. This is a free resource providing counseling, [...] was given the opportunity to ask questions. Patient/Stenographer Print Shop Name: Patient/Stenographer Print Shop Signature: Relationship to Patient: Clinician/Hospital Stenographer Print Shop Signature: Please Provide a Telephone Number Where You Can Be Reached: Is it Permissible To Leave a Message? Date: Electronically signed by Jannette [facility] Conversion [employer] Faculty Member Cerner at 08/31/2022 5:24 PM CDT documented in this encounter Plan of Treatment Not on file documented as of this encounter Visit Diagnoses Not on filedocumented in this encounter Care Teams Pastry Cook Relationship Specialty Start Date End Date Alan Beyer MD [address] [place] [facility] [place] [address] PCP - General Family Medicine 06/08/23 documented as of this encounter
--- OUTSIDE RECORDS SUMMARY | 2024-11-05 10:21 | XMS_ITS | Encounter Summary ---
Author Organization [employer] Address [address] [place] [address] Care Team Providers Care District Fire Chief Name Role Phone Alan Beyer MD Primary Care Provider [phone] Encounter Details Date Type Department Care Team (Late st Contact Info) Description 12/24/2020 Transcribed Document [facility] [address] [place] [address] Yomi Rodríguez MD [address] [place] [address] Dept. of Emergency Medicine [place] [id number] Social History Tobacco Use Types Packs/Day Years Used Date Smoking Tobacco: Never Assessed Comments Unknown Sex and Gender Information Value Date Recorded Sex Assigned at Not on file Legal Sex Female 4:28 PM CDT Gender Identity Not on file Sexual Orientation Not on file documented as of this encounter Miscellaneous Notes * Cerner Conversion Note - Yomi Rodríguez MD - 12/24/2020 4:13 AM EDT SARS-CoV-2 (COVID19 PCR) - - Negative 12/23/2020 11:22 12/24/2020 03:13 (YOMI RODRÍGUEZ MD-EMR) Reviewed by Provider, No further action required Electronically signed by Jannette [facility] Conversion Production Designer Cerner at 08/31/2022 5:24 PM CDT documented in this encounter Plan of Treatment Not on file documented as of this encounter Visit Diagnoses Not on filedocumented in this encounter Care Teams District Fire Chief Relationship Specialty Start Date End Date Alan Beyer MD [address] [place] [address] PCP - General Family Medicine 06/08/23 documented as of this encounter
--- OUTSIDE RECORDS SUMMARY | 2024-11-05 10:21 | XMS_ITS | Encounter Summary ---
Author Organization [employer] Address [address] [place] [address] Care Team Providers Care Hand Counter Name Role Phone Alan Beyer MD Primary Care Provider [phone] Encounter Details Date Type Department Care Team (Late st Contact Info) Description 06/05/2018 Transcribed Document [facility] [place] [facility] [place] [address] ProviderJessenia MD [address] [place], [place] [id number] Social History Tobacco Use Types Packs/Day Years Used Date Smoking Tobacco: Never Assessed Comments Unknown Sex and Gender Information Value Date Recorded Sex Assigned at Not on file Legal Sex Female 4:28 PM CDT Gender Identity Not on file Sexual Orientation Not on file documented as of this encounter Miscellaneous Notes * Cerner Conversion Note - Jessenia ProviderMD - 06/05/2018 11:45 AM SALESPERSON FASHION ACCESSORIES [facility] Main OR PreOp Summary Primary Physician: DORIS BRANCH DO Finalized Date/Time: 06/05/18 17:54:56 Pt. Name: CHARLINE MAYERS DENIZ /Sex: 1980 Female Med Rec #: [id number] Physician: DORIS BRANCH DO Financial #: [id number] Pt. Type: O Room/Bed: [facility]/1 Admit/Disch: 06/05/18 04:59:00 - [place] [facility] PreOp Case Times Entry 1 In Preop 06/05/18 07:55:00 Ready for Holding n/a Room Patient Ready for 06/05/18 09:30:00 Surgery Patient Out of Preop 06/05/18 11:15:00 Patient Out of 06/05/18 11:15:00 Holding Room Last Modified By: Laura Eason RN 06/05/18 17:54:54 SJ PreOp Case Times Audit 06/05/18 17:54:54 Assistant Professor Of Surgery: [id number] Modifier: HIPOLITO <+> 1 Patient Out of Preop <+> 1 Patient Out of Holding Room Finalized By: Laura Eason, RN Document Signatures Signed By: Laura Eason RN 06/05/18 17:54 Electronically signed by Jannette [facility] Conversion Digital Product Manager Cerner at 08/31/2022 5:26 PM CDT documented in this encounter Plan of Treatment Not on file documented as of this encounter Visit Diagnoses Not on filedocumented in this encounter Care Teams Hand Counter Relationship Specialty Start Date End Date Alan Beyer MD [address] [place] [address] PCP - General Family Medicine 06/08/23 documented as of this encounter
--- OUTSIDE RECORDS SUMMARY | 2024-11-05 10:21 | XMS_ITS | Encounter Summary ---
Author Organization [employer] Address [address] [place] [address] Care Team Providers Care Dispensing Operator Name Role Phone Alan Beyer MD Primary Care Provider [phone] Encounter Details Date Type Department Care Team (Late st Contact Info) Description 11/07/2019 Transcribed Document [facility] Family [place] [facility] [place] [address] ProviderJessenia MD [address] [place] [address] Social History Tobacco Use Types Packs/Day Years Used Date Smoking Tobacco: Never Assessed Comments Unknown Sex and Gender Information Value Date Recorded Sex Assigned at Not on file Legal Sex Female 4:28 PM CDT Gender Identity Not on file Sexual Orientation Not on file documented as of this encounter Miscellaneous Notes * Cerner Conversion Note - Jessenia Alvarez MD - 11/07/2019 1:25 AM CDT ED Discharge Entered On: 11/07/2019 3:16 EDT Performed On: 11/07/2019 1:25 EDT by Albert Mckeon RN Discharge Process Patient Disposition : Discharge Personal Belongings With Patient : Yes Patient Education Completed : Yes Teaching Evaluation : Verbalizes understanding IV Discontinued : Yes Nursing Documentation Completed : Yes Albert Mckeon RN - 11/07/2019 3:16 EDT ED Discharge Discharge To : Home with ambulatory/outpatient follow-up Mode Of Departure : Private vehicle Accompanied By : Significant other Discharge Instructions Reviewed With, Opportunity For Questions Given : Patient Prescriptions Given to Patient : No Albert Mckeon RN - 11/07/2019 3:16 EDT Electronically signed by Jannette [facility] Conversion Vault Attendant Cerner at 08/31/2022 5:16 PM CDT documented in this encounter Plan of Treatment Not on file documented as of this encounter Visit Diagnoses Not on filedocumented in this encounter Care Teams Dispensing Operator Relationship Specialty Start Date End Date Alan Beyer MD [address] [place] [address] PCP - General Family Medicine 06/08/23 documented as of this encounter
--- OUTSIDE RECORDS SUMMARY | 2024-11-05 10:21 | XMS_ITS | Encounter Summary ---
Author Organization [employer] Address [address] [place] [address] Care Team Providers Care Hydroelectric Plant Electrical Engineer Name Role Phone Alan Beyer MD Primary Care Provider [phone] Encounter Details Date Type Department Care Team (Late st Contact Info) Description 08/11/2019 Transcribed Document [facility] [place] [facility] [place] [address] ProviderJessenia MD [address] [place] [address] Social History Tobacco Use Types Packs/Day Years Used Date Smoking Tobacco: Never Assessed Comments Unknown Sex and Gender Information Value Date Recorded Sex Assigned at Not on file Legal Sex Female 4:28 PM CDT Gender Identity Not on file Sexual Orientation Not on file documented as of this encounter Miscellaneous Notes * Cerner Conversion Note - Jessenia Alvarez MD - 08/11/2019 9:05 AM CDT ED Discharge Entered On: 08/11/2019 9:05 EDT Performed On: 08/11/2019 9:05 EDT by JORGE LUIS VELASCO RN Discharge Process Patient Disposition : Discharge Personal Belongings With Patient : Yes Patient Education Completed : Yes Teaching Evaluation : Verbalizes understanding IV Discontinued : Not applicable JORGE LUIS VELASCO RN - 08/11/2019 9:05 EDT ED Discharge Discharge To : Home without planned follow-up Mode Of Departure : Ambulatory Accompanied By : Unaccompanied Discharge Instructions Reviewed With, Opportunity For Questions Given : Patient Prescriptions Given to Patient : Electronically sent Number of Prescriptions Given : 2 JORGE LUIS VELASCO RN - 08/11/2019 9:05 EDT documented in this encounter Plan of Treatment Not on file documented as of this encounter Visit Diagnoses Not on filedocumented in this encounter Care Teams Hydroelectric Plant Electrical Engineer Relationship Specialty Start Date End Date Alan Beyer MD [address] [place] [address] PCP - General Family Medicine 06/08/23 documented as of this encounter
--- OUTSIDE RECORDS SUMMARY | 2024-11-05 10:21 | XMS_ITS | Encounter Summary ---
Author Organization [employer] Address [address] [place] [address] Care Team Providers Care Esthetics Instructor Name Role Phone Alan Beyer MD Primary Care Provider Encounter Details Date Type Department Care Team (Late st Contact Info) Description 06/28/2018 Transcribed Document [facility] [place] [facility] [place] [address] ProviderJessenia MD [address] [place], [place] [address] Social History Tobacco Use Types Packs/Day Years Used Date Smoking Tobacco: Never Assessed Comments Unknown Sex and Gender Information Value Date Recorded Sex Assigned at Not on file Legal Sex Female 4:28 PM CDT Gender Identity Not on file Sexual Orientation Not on file documented as of this encounter Miscellaneous Notes * Cerner Conversion Note - Jessenia ProviderMD - 06/28/2018 6:38 PM SENIOR ECOLOGIST Electronically signed by Jannette [facility] Conversion Student Success Counselor Cerner at 08/31/2022 4:59 PM CDT documented in this encounter Plan of Treatment Not on file documented as of this encounter Visit Diagnoses Not on filedocumented in this encounter Care Teams Esthetics Instructor Relationship Specialty Start Date End Date Alan Beyer MD [address] [place] [address] PCP - General Family Medicine 06/08/23 documented as of this encounter
--- OUTSIDE RECORDS SUMMARY | 2024-11-05 10:21 | XMS_ITS | Encounter Summary ---
Author Organization [employer] Address [address] [place] [address] Care Team Providers Care Enologist Name Role Phone Alan Beyer MD Primary Care Provider [phone] Encounter Details Date Type Department Care Team (Late st Contact Info) Description 12/23/2020 Transcribed Document [facility] [place] [facility] [place] [address] ProviderJessenia MD [address] [place], [place] [address] Social History Tobacco Use Types Packs/Day Years [...] Alvarez MD - 12/23/2020 9:39 AM CDT ED Assessment Entered On: 12/23/2020 10:16 EDT Performed On: 12/23/2020 10:14 EDT by Suyapa An RN-PATIENT CARE BEDSIDE NON-EXEMPT ED Quick Look Assessment Level of Consciousness : Alert, Awake Affect/Behavior : Appropriate Orientation : Oriented x 4 Skin Temperature : Warm Suyapa An RN-PATIENT CARE BEDSIDE NON-EXEMPT - 12/23/2020 10:14 EDT ED General-Functional Assess Information Obtained From : Patient Preferred Communication Mode : Verbal Communication Barrier : None Primary Language : Azeri Any Spiritual/Cultural Needs or Requests : No Currently in Unsafe Situation : No Suyapa An RN-PATIENT CARE BEDSIDE NON-EXEMPT - 12/23/2020 10:14 EDT Social Habits Smoking Status : 10 or more cigarettes (1/2 pack or more)/day in last 30 days Smokeless Tobacco Status : Never Desires Tobacco Cessation Medication : No Reason for No Tobacco Cessation Medication : ED/procedural patient only Desires Tobacco Cessation Calc : 1 Suyapa An RN-PATIENT CARE BEDSIDE NON-EXEMPT - 12/23/2020 10:14 EDT Social History (As Of: 12/23/2020 10:16:26 EDT) Tobacco: 4 or less cigarettes(less than [...] 05/24/2018 10:39:04 EST by Breanna Ivey, [place]) Respiratory Respiratory Assessment WDL : WDL with exceptions Respiratory Assessment Comment : Pt complains of N/V, headache, no taste, body chills. Pt stated she was around a patient at work who was covid +. Suyapa An RN-PATIENT CARE BEDSIDE NON-EXEMPT - 12/23/2020 10:14 EDT Gastrointestinal ED Gastrointestinal Assessment WDL : WDL with exceptions Gastrointestinal Assessment Comment : Pt complains of N/V Suyapa An, RN-PATIENT CARE BEDSIDE NON-EXEMPT - 12/23/2020 10:14 EDT documented in this encounter Plan of Treatment Not on file documented as of this encounter Visit Diagnoses Not on filedocumented in this encounter Care Teams Enologist Relationship Specialty Start Date End Date Alan Beyer MD [address] [place] [address] PCP - General Family Medicine 06/08/23 documented as of this encounter
--- OUTSIDE RECORDS SUMMARY | 2024-11-05 10:21 | XMS_ITS | Clinical Summary ---
Author Organization [facility] Address [address] [place] [address] Care Team Providers Care Statistical Assistant Name Role Phone Sage Zeng MD Primary Care Provider [phone] Allergies Active Allergy Reactions Criticality Noted Date Comments Baclofen Hives Medium 07/20/2016 Clindamycin/Lincomyci n Hives Medium 07/20/2016 nausea and extreme diarrhea Doxycycline Nausea 07/20/2016 severe diarrhea Fentanyl Other - please document in the comment field Low 07/20/2016 Gold Other - please document in the comment field Low 12/20/2018 Ketorolac Other - please document in the comment field Low 10/05/2020 Ketorolac Tromethamine Other - please document in the comment field Low 07/20/2016 Lidocaine Other - please document in the comment field Low 03/23/2022 9severe swelling, itching, rash Meperidine Anaphylaxis,Hives High 01/06/2013 Morphine And Codeine Anaphylaxis,Hives High 01/07/20 13 Nickel Other - please document in the comment field Low 09/21/2021 Oxycodone-Acetaminoph en Nausea And Vomiting High 07/20/2016 hives 13throws up and itching Sulfa Drugs Anaphylaxis High 03/29/2021 trouble breathing. Can take cyclosporins Sulfamethoxazole-Trim ethoprim Other - please document in the comment field Low 12/20/2018 Tetanus Toxoids Other - please document in the comment field Low 11/09/2012 stiffness and swelling Medications albuterol (Ventolin HFA) 108 (90 Base) MCG/ACT inhaler 3 Active fluticasone (Flonase) 50 MCG/ACT nasal spray 3 Active cloNIDine (Catapres) 0.1 MG tablet 3 Active furosemide (Lasix) 20 MG tablet 3 Active lisinopril 10 MG tablet 3 Active busPIRone (Buspar) 15 MG tablet 3 Active hydrOXYzine HCl (Atarax) 25 MG tablet 3 Active mupirocin (Bactroban) 2 % ointment Apply 4 oz topically twice a day. 3 Active omeprazole (PriLOSEC) [address] capsule 3 Active cyanocobalamin 1000 MCG tablet Take 1 tablet (1,000 mcg) by mouth 1 (one) time each day. 3 Active methocarbamol (Robaxin) 750 MG tablet 3 Active ergocalciferol 1.25 MG (72390 UT) capsule Vitamin D (Ergocalcifero l) 1.25 MG (09365 UT) Oral Capsule QTY: 0 capsule Days: 0 Refills: 0 Written: 07/12/22 Patient Instructions: 3 Active Encounters Date Type Department Care Team Description 09/23/2024 [facility] [address] [place] [phone] Ellis Farias, INTERNAL COMBUSTION ENGINEER Loss of teeth (Primary Dx) from Last 3 Months Social History Tobacco Use Types Packs/Day Years Used Date Smoking Tobacco: Never Smokeless Tobacco: Never Alcohol Use Standard Drinks/Week Comments Not Currently 0 (1 standard drink = 0.6 oz pure alcohol) 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) Comments Unknown Sex and Gender Information Value Date Recorded Sex Assigned at Not on file Legal Sex Female 6:42 PM EDT Gender Identity Not on file Sexual Orientation Not on file Last Filed Vital Signs Vital Sign Reading Time Taken Comments Blood Pressure 135/83 04/17/2023 11:24 AM EST Pulse 113 04/17/2023 11:24 AM EST Temperature - - Respiratory Rate - - Oxygen Saturation - - Inhaled Oxygen Concentration - - Weight - - Height 165.1 cm (5' 5 ) 04/17/2023 11:24 AM EST Body Mass Index - - Plan of Treatment Upcoming Encounters Date Type Department Care Team (Late st Contact Info) Description 12/03/2024 9:00 AM EDT Office Visit [facility] [address] [place] [address] Xavier Escobedo, DIDIER [address] [facility] [place] [address] Health Maintenance Due Date Last Done Comments [facility]-Depression Screening 1982 [facility]-HIV Screening 1982 [facility]-Hepatitis C Screening 1982 [facility]-/Child/Adol SDOH Screenings 1982 [facility]-Varicella Vaccines (1 of 2 - 13+ 2-dose series) 11/06/1995 HPV Vaccines (1 - 3-dose series) 1997 [facility]- SDOH Screenings 2000 [facility]-Adult SDOH Screenings 2000 [facility]-DTaP,Tdap,and Td Vaccines (1 - Tdap) 2001 [facility]-Hepatitis B Vaccines (1 of 3 - 19+ 3-dose series) 2001 [facility]-Pap Smear 11/06/2003 [facility]-Cervical Cancer Screening 2012 [facility]-HPV/Cotest 2012 [id number] Vaccine ( season) 2024 07/29/2021, 02/28/2021, 02/03/2021 [facility]-Zoster Vaccines (1 of 2) 2032 [facility]-Pneumococcal Vaccine: Pediatrics (0 to 5 Years) and At-Risk Patients (6 to 49 Years) Aged Out 02/20/2017, 02/16/2016 No longer eligibl e based on patient's age to complete this topic [facility]-Influenza Vaccine Completed 01/23/2024 , 03/21/2023, 02/11/2022, Additional history exists [facility]-HIB Vaccines Aged Out No longer e ligible based on patient's age to complete this topic [facility]-Hepatitis A Vaccines Aged Out No longer eligible based on patient's age to complete this topic [facility]-IPV Vaccines Aged Out No longer e ligible based on patient's age to complete this topic [facility]-Rotavirus Vaccines Aged Out No lo nger eligible based on patient's age to complete this topic Insurance [facility] Care Teams Statistical Assistant Relationship Specialty Start Date End Date Sage Zeng MD [address] [place] [address] PCP - General 09/24/20
--- OUTSIDE RECORDS SUMMARY | 2024-11-05 10:21 | XMS_ITS | Encounter Summary ---
Author Organization [employer] Address [address] [place] [address] Care Team Providers Care Medicine Tech Name Role Phone Alan Beyer MD Primary Care Provider [phone] Encounter Details Date Type Department Care Team (Late st Contact Info) Description 06/28/2018 Transcribed Document [facility] [place] [facility] [place] [address] ProviderJessenia MD [address] [place] [address] Social History Tobacco Use Types Packs/Day Years Used Date Smoking Tobacco: Never Assessed Comments Unknown Sex and Gender Information Value Date Recorded Sex Assigned at Not on file Legal Sex Female 4:28 PM CDT Gender Identity Not on file Sexual Orientation Not on file documented as of this encounter Miscellaneous Notes * Cerner Conversion Note - Jessenia Alvarez MD - 06/28/2018 7:31 PM TEAM CDL DRIVER [address] [place] [address] PERSON INFORMATION Name CHARLINE BOND Age 37 Years 1980 Sex Female Language Amharic PCP JORGE LUIS BUENO, LIGIA-CLAUDIO Marital Status Med Service Emergency Medicine Acct# Arrival 06/28/2018 13:18:00 Visit Reason Vaginal pain; POST HYSTERECTOMY PAIN Acuity 3 - Urgent LOS 000 06:13 Depart Date: 06/28/18 07:30 PM Address: [address] [place] [phone] Comment: PROVIDER INFORMATION Provider Role Assigned Unassigned YOVANA JONES PA ED Physician 06/28/2018 16:17:07 MARYSE TAVERAS, GUEST SERVICES LEAD Nurse 06/28/2018 16:17:44 DIAGNOSIS History of hysterectomy; Vaginal pain PHYS DOC NOTES VITALS INFORMATION Vital Sign Triage Latest Temp Source Oral Oral Temp Mode Fahrenheit Fahrenheit Temp Fahrenheit 98.0 Deg F 98.0 Deg F Temp Celsius 02 Sat 99 % 96 % Respiratory Rate 18 Breaths/Min 20 Breaths/Min Peripheral Pulse Rate 108 bpm 102 bpm Apical Heart Rate Blood Pressure 125 mmHg / 86 mmHg 120 mmHg / 82 mmHg Comment: MEDICAL INFORMATION Allergy Info: fentaNYL; acetaminophen-oxyCODONE; Toradol; Bactrim; escitalopram; lidocaine topical 2% gel; tetanus immune globulin; baclofen; morphine; penicillin; clindamycin; doxycycline; meperidine Medications: Prescription Display acetaminophen-hydrocodone ([place] 5 mg-325 mg oral tablet) 1 Tab, Oral, Tab, Q6H, PRN for pain, X 3 Day(s), # 12 Tab, 0 Refill(s) metroNIDAZOLE (Flagyl 500 mg oral tablet) 1 Tab, Oral, Tab, Q12H, do not drink alcohol not to exceed 4 g/day, X 7 Day(s), # 14 Tab, 0 Refill(s), Pharmacy: [facility]/pharmacy #[id number] promethazine (promethazine 25 mg oral tablet) 1 Tab, Oral, Tab, Q4H, PRN as needed for nausea/vomiting, # 60 Tab, 0 Refill(s), Pharmacy: [facility]/pharmacy #[id number] Home Meds Display conjugated estrogens (Premarin) Oral, Daily, 0 Refill(s) fexofenadine (Karine) Oral, 0 Refill(s) ibuprofen 0 Refill(s) Comment: DISCHARGE INFORMATION Discharge Disposition: Home Discharge Location: PATIENT EDUCATION INFORMATION Instructions: Vaginal Hysterectomy, Care After; Hysterectomy Information, Xofd-ik-Lcel Follow up: With: Address: When: DORIS BRANCH [address] [facility], [address] [place] [address] [facility] ([employer] Within 2 to 3 days Comments: Call for follow up appointment sunday morining return to er if symptoms worsen, take meds as prescribed, keep using cream, no intercourse and bed rest hope you feel better! With: Address: When: [address] [place] [address] Business (1) Within 2 to 3 days Comment: Electronically signed by Trevon Bhatia Conversion Peritoneal Dialysis Registered Nurse Cerner at 08/31/2022 5:06 PM CDT documented in this encounter Plan of Treatment Not on file documented as of this encounter Visit Diagnoses Not on filedocumented in this encounter Care Teams Medicine Tech Relationship Specialty Start Date End Date Alan Beyer MD [address] [place] [address] PCP - General Family Medicine 06/08/23 documented as of this encounter
--- OUTSIDE RECORDS SUMMARY | 2024-11-05 10:21 | XMS_ITS | Encounter Summary ---
Author Organization [employer] Address [address] [place] [address] Care Team Providers Care Slide Forming Machine Operator Name Role Phone Alan Beyer MD Primary Care Provider [phone] Encounter Details Date Type Department Care Team (Late st Contact Info) Description 06/28/2018 Transcribed Document [facility] [place] [address] ProviderJessenia MD [address] [place] [address] Social History Tobacco Use Types Packs/Day Years Used Date Smoking Tobacco: Never Assessed Comments Unknown Sex and Gender Information Value Date Recorded Sex Assigned at Not on file Legal Sex Female 4:28 PM CDT Gender Identity Not on file Sexual Orientation Not on file documented as of this encounter Miscellaneous Notes * Cerner Conversion Note - Jessenia Alvarez MD - 06/28/2018 1:18 PM STATIONARY STEAM ENGINEER ED Assessment Entered On: 06/28/2018 17:29 EST Performed On: 06/28/2018 16:30 EST by MARYSE TAVERAS RN ED Quick Look Assessment Level of Consciousness : Alert Affect/Behavior : Appropriate Orientation : Oriented x 4 Skin Color : Other: wnl Skin Temperature : Warm Skin Description : Dry MARYSE TAVERAS RN - 06/28/2018 17:25 EST ED General-Functional Assess Information Obtained From : Patient Preferred Communication Mode : Verbal Communication Barrier : None Primary Language : Maori Any Spiritual/Cultural Needs or Requests : No Currently in Unsafe Situation : No MARYSE TAVERAS RN - 06/28/2018 17:25 EST Social Habits Smoking Status : 10 or more cigarettes (1/2 pack or more)/day in last 30 days Smokeless Tobacco Status : Never Desires Tobacco Cessation Medication : No Reason for No Tobacco Cessation Medication : ED/procedural patient only Desires Tobacco Cessation Calc : 1 MARYSE TAVERAS RN - 06/28/2018 17:25 EST Social History (As Of: 06/28/2018 17:29:45 EST) Tobacco: 10 or more cigarettes (1/2 [...] 05/24/2018 10:39:04 EST by Breanna Ivey Rn) Genitourinary Assessment, ED Genitourinary Symptoms : Other: c/o stabbing vaginal pain MARYSE TAVERAS RN - 06/28/2018 17:25 EST documented in this encounter Plan of Treatment Not on file documented as of this encounter Visit Diagnoses Not on filedocumented in this encounter Care Teams Slide Forming Machine Operator Relationship Specialty Start Date End Date Alan Beyer MD [address] [place] [id number] PCP - General Family Medicine 06/08/23 documented as of this encounter
--- OUTSIDE RECORDS SUMMARY | 2024-11-05 10:21 | XMS_ITS | Encounter Summary ---
Author Organization [employer] Address [address] [place] [address] Care Team Providers Care Regional Service Manager Name Role Phone Alan Beyer MD Primary Care Provider [phone] Encounter Details Date Type Department Care Team (Late st Contact Info) Description 04/09/2019 Transcribed Document [facility] [place] [facility] [place] [address] ProviderJessenia MD [address] [place] [address] Social History Tobacco Use Types Packs/Day Years Used Date Smoking Tobacco: Never Assessed Comments Unknown Sex and Gender Information Value Date Recorded Sex Assigned at Not on file Legal Sex Female 4:28 PM CDT Gender Identity Not on file Sexual Orientation Not on file documented as of this encounter Miscellaneous Notes * Cerner Conversion Note - Jessenia Alvarez MD - 04/09/2019 9:42 AM INSTITUTIONAL RESEARCH DIRECTOR Pediatric Growth Entered On: 04/09/2019 9:43 EST Performed On: 04/09/2019 9:42 EST by Talia Eason RN Height and Weight, Clinical Dosing Height Source : Stated Height Entry Format : [place] Height, Feet : 5 ft(Converted to: 152 cm, 60 Inch) Height, Inches : 5 Inch(Converted to: 0 ft 5 Inch, 12.70 cm) Clinical Height : 165.1 cm Weight Source : Standing scale Weight Entry Format : [place] Clinical Dosing Weight : 76.36 kg Weight, Pounds : 168 lb Body Surface Area (BSA) : 1.84 m2 Body Mass Index : 28 kg/m2 (HI) [place] Body Weight : 57 kg Talia Eason, RN - 04/09/2019 9:42 EST Electronically signed by [facility] Conversion Marketing Information Coordinator Cerner at 08/31/2022 5:24 PM CDT documented in this encounter Plan of Treatment Not on file documented as of this encounter Visit Diagnoses Not on filedocumented in this encounter Care Teams Regional Service Manager Relationship Specialty Start Date End Date Alan Beyer MD [address] [place] [address] PCP - General Family Medicine 06/08/23 documented as of this encounter
--- OUTSIDE RECORDS SUMMARY | 2024-11-05 10:21 | XMS_ITS | Encounter Summary ---
Author Organization [employer] Address [address] [place] [address] Care Team Providers Care Pantry Chef Name Role Phone Alan Beyer MD Primary Care Provider [phone] Encounter Details Date Type Department Care Team (Late st Contact Info) Description 02/02/2019 Transcribed Document [facility] [place] [address] ProviderJessenia MD [address] [place] [address] Social History Tobacco Use Types Packs/Day Years Used Date Smoking Tobacco: Never Assessed Comments Unknown Sex and Gender Information Value Date Recorded Sex Assigned at Not on file Legal Sex Female 4:28 PM CDT Gender Identity Not on file Sexual Orientation Not on file documented as of this encounter Miscellaneous Notes * Cerner Conversion Note - Jessenia Alvarez MD - 02/02/2019 2:58 PM CDT Pain Assessment Entered On: 02/02/2019 16:52 EDT Performed On: 02/02/2019 16:52 EDT by Karie Goodwin, RN Intervention Information: HYDROmorphone Performed by Karie Goodwin, RN on 02/02/2019 15:25:00 EDT HYDROmorphone,0.5mg IV Push,Peripheral Line 1 Pain Assessment Pain Assessment : Follow-up assessment Karie Goodwin, RN - 02/02/2019 16:52 EDT Electronically signed by Jannette [facility] Conversion National Sales Associate Cerner at 08/31/2022 5:06 PM CDT documented in this encounter Plan of Treatment Not on file documented as of this encounter Visit Diagnoses Not on filedocumented in this encounter Care Teams Pantry Chef Relationship Specialty Start Date End Date Alan Beyer MD [address] [place] [phone] PCP - General Family Medicine 06/08/23 documented as of this encounter
--- OUTSIDE RECORDS SUMMARY | 2024-11-05 10:21 | XMS_ITS | Encounter Summary ---
Author Organization [employer] Address [address] [place] [address] Care Team Providers Care Networker Name Role Phone Alan Beeyr MD Primary Care Provider [phone] Encounter Details Date Type Department Care Team (Late st Contact Info) Description 11/07/2019 Transcribed Document [facility] [place] Family Medicine [facility]ly [facility] [place] [address] ProviderJessenia MD [address] [place] [address] Social History Tobacco Use Types Packs/Day Years Used Date Smoking Tobacco: Never Assessed Comments Unknown Sex and Gender Information Value Date Recorded Sex Assigned at Not on file Legal Sex Female 4:28 PM CDT Gender Identity Not on file Sexual Orientation Not on file documented as of this encounter Miscellaneous Notes * Cerner Conversion Note - Jessenia Alvarez MD - 11/07/2019 1:21 AM CDT [place] [id number] CHARLINE BOND :1980 Visit Time:11/06/2019 Your Visit Summary Your Care Team Primary Provider: GROVER MEZA Secondary Provider: Your Diagnosis Acute UTI Bilateral flank pain Blood in urine Flank pain Nausea Vomiting Medical Information You may obtain a [...] do next Follow-Up Appointments Follow Up with MARIA ESTHER CORREA When Within 2 to [address] Correa in the morning for a follow up appointment Return for fever, or problems You urine culture is pending Where: [address] [facility] [address] [place] [address] Business (1) Follow Up with Follow up with specialist When Within 2 to 3 days Follow Up with ANSLEY GUADALUPE When Within 2 to 3 days Where: [address] [facility] [address] [place] [address]- Business (1) Allergies Bactrim acetaminophen-oxyCODONE clindamycin Toradol baclofen doxycycline escitalopram fentaNYL lidocaine topical 2% gel meperidine morphine penicillin (Hives) tetanus immune globulin Immunizations This Visit No Immunizations Found Medications What How Much When Instructions Next Dose acetaminophen-hydrocodone (Wayne 7.5 mg-325 mg oral tablet) 1 Tablet(s) Oral Every 6 Hours as needed for for pain Duration: 3 Day(s) addictive, no driving, constipating Printed Prescription cefUROXIME (Ceftin 250 mg oral tablet) 1 Tablet(s) Oral Two Times A Day Duration: 5 Day(s) Printed Prescription meclizine (meclizine 25 mg oral tablet, chewable) 1-2 Tab Chew Three Times A Day as needed for for nausea/vomiting Duration: 10 Day(s) Printed Prescription conjugated estrogens (Premarin) Vaginal Weekly cream fexofenadine [...] This Visit (last charted value for your 11/06/2019 visit) Hematology 11/06/2019 9:57 PM WBC: 9.0 K/uL -- Normal range between ( 3.9 and 10.0 ) RBC: 3.56 Million/uL -- Normal range between ( 3.93 and 5.22 ) Hct: 37.5 % -- Normal range between ( 34.1 and 44.9 ) Hgb: 12.7 Gram/dL -- Normal range between ( 11.2 and 15.7 ) Platelet Count: 249 K/uL -- Normal range between ( 163 and 369 ) MCH: 35.7 pg -- Normal range between ( 25.6 and 32.2 ) MCHC: 33.9 Gram/dL -- Normal range between ( 32.3 and 36.5 ) MCV: 105.3 fL -- Normal range between ( 79.0 and 94.8 ) Slide Review: No Eos %: 1.1 % -- Normal range between ( 1.0 and 7.0 ) [place] #: 0.49 K/uL -- Normal range between ( 0.24 and 0.82 ) Eos #: 0.10 K/uL -- Normal range between ( 0.04 and 0.54 ) [place] %: 5.5 % -- Normal range between ( 4.7 and 12.5 ) Baso %: 0.2 % -- Normal range between ( 0.0 and 1.0 ) Baso #: 0.02 K/uL -- Normal range between ( 0.01 and 0.08 ) RDW: 12.1 % -- Normal range between ( 11.6 and 14.4 ) Neut %: 54.2 % -- Normal range between ( 34.0 and 71.0 ) Neut #: 4.85 K/uL -- Normal range between ( 1.56 and 6.13 ) Lymph %: 38.8 % -- Normal range between ( 19.3 and 53.0 ) Lymph #: 3.48 K/uL -- Normal range between ( 1.18 and 3.74 ) MPV: 9.8 fL -- Normal range between ( 9.4 and 12.4 ) IG#: 0 x10(3)/uL IG%: 0 % -- Normal range between ( 0 and 1 ) Urinalysis 11/06/2019 8:14 PM Ur RBC: TNTC /HPF Urine Nitrite: Negative Urine Leukocyte Esterase: Small Urine Appearance: Cloudy Urine Glucose Dipstick: Negative Urine Blood Dipstick: Large Urine Type: U CleanCatch Urine Urobilinogen Dipstick: 1.0 EU/dL -- Normal range between ( 0.2 and 1.0 ) Urine Protein Dipstick: 30 Ur Bacteria: 1+ Ur Squamous Epithelial Cells: 2-5 /HPF Urine Color: Red Ur WBC: 2-5 /HPF Urine Ketones Dipstick: Trace Urine pH Dipstick: 5.5 -- Normal range between ( 6.0 and 8.0 ) Urine Bilirubin Dipstick: Negative Urine Specific Eleele: 1.019 -- Normal range between ( 1.005 and 1.030 ) General Chemistry 11/06/2019 9:57 PM Creatinine Level: 0.82 mg/dL -- Normal range between ( 0.55 [...] between ( 1.1 and 2.5 ) ALT: 21 Units/Liter -- Normal range between ( 12 and 78 ) AST: 25 Units/Liter -- Normal range between ( 5 and 37 ) Globulin: 4.1 Gram/dL -- Normal range between ( 1.5 and 4.5 ) Alk Phos: 95 Units/Liter -- Normal range between ( 27 and 136 ) Bun/Creatinine: 15.9 -- Normal range between ( 8.0 and 20.0 ) Calcium Level: 9.2 mg/dL -- Normal range between ( 8.5 and 10.1 ) eGFR : >60 mL/min/1.73m2 eGFR NonAfrican: >60 mL/min/1.73m2 Glucose Level: 84 mg/dL -- Normal range between ( 74 and 106 ) Magnesium Level: 2.0 mg/dL -- Normal range between ( 1.5 and 2.4 ) Blood Urea Nitrogen: 13 mg/dL -- Normal range between ( 7 and 22 ) Protein Total: 8.3 Gram/dL -- Normal range between ( 6.4 and 8.2 ) Albumin Level: 4.2 Gram/dL -- Normal range between ( 3.4 and 5.0 ) Endocrinology 11/06/2019 8:14 PM HCG Urine Qualitative: Negative Computed Tomography 11/06/2019 11:[address] Abdomen Pelvis WO: CT Abdomen Pelvis WO Education Materials Urinary Tract Infection, Adult A urinary tract infection (UTI) is an infection of any part of the urinary tract. The urinary tract includes the kidneys, ureters, bladder, and urethra. These organs make, store, and get rid of urine in the body. Your health care provider may use other names to describe the infection. An upper UTI affects the ureters and kidneys (pyelonephritis). A lower UTI affects the bladder (cystitis) and urethra (urethritis). What are the causes? Most urinary tract infections are caused by bacteria in your genital area, around the entrance to your urinary tract (urethra). These bacteria grow and cause inflammation of your urinary tract. What increases the risk? You are more likely to develop this condition if: ??? You have a urinary catheter that stays in place (indwelling). ??? You are not able to control when you urinate or have a bowel movement (you have incontinence). ??? You are female and you: ? Use a spermicide or diaphragm for control. ? Have low estrogen levels. ? Are . ??? You have certain genes that increase your risk (genetics). ??? You are sexually active. ??? You take antibiotic medicines. ??? You have a condition that causes your flow of urine to slow down, such as: ? An enlarged prostate, if you are male. ? Blockage in your urethra (stricture). ? A kidney stone. ? A nerve condition that affects your bladder control (neurogenic bladder). ? Not getting enough to drink, or not urinating often. ??? You have certain medical conditions, such as: ? Diabetes. ? A weak disease-fighting system (immunesystem). ? Sickle cell disease. ? Gout. ? Spinal cord injury. What are the signs or symptoms? Symptoms of this condition include: ??? Needing to urinate right away (urgently). ??? Frequent urination or passing small amounts of urine frequently. ??? Pain or burning with urination. ??? Blood in the urine. ??? Urine that smells bad or unusual. ??? Trouble urinating. ??? Cloudy urine. ??? Vaginal discharge, if you are female. ??? Pain in the abdomen or the lower back. You may also have: ??? Vomiting or a decreased appetite. ??? Confusion. ??? Irritability or tiredness. ??? A fever. ??? Diarrhea. The first symptom in older adults may be confusion. In some cases, they may not have any symptoms until the infection has worsened. How is this diagnosed? This condition is diagnosed based on your medical history and a physical exam. You may also have other tests, including: ??? Urine tests. ??? Blood tests. ??? Tests for sexually transmitted infections (STIs). If you have had more than one UTI, a cystoscopy or imaging studies may be done to determine the cause of the infections. How is this treated? Treatment for this condition includes: ??? Antibiotic medicine. ??? Vcjr-tzb-ljwlwoz medicines to treat discomfort. ??? Drinking enough water to stay hydrated. If you have frequent infections or have other conditions such as a kidney stone, you may need to see a health care provider who specializes in the urinary tract (urologist). In rare cases, urinary tract infections can cause sepsis. Sepsis is a life-threatening condition that occurs when the body responds to an infection. Sepsis is treated in the hospital with IV antibiotics, fluids, and other medicines. Follow these instructions at home: Medicines ??? Take wqcv-vzp-dkcbyzm and prescription medicines only as told by your health care provider. ??? If you were prescribed an antibiotic medicine, take it as told by your health care provider. Do not stop using the antibiotic even if you start to feel better. General instructions ??? Make sure you: ? Empty your bladder often and completely. Do not hold urine for long periods of time. ? Empty your bladder after sex. ? Wipe from front to back after a bowel movement if you are female. Use each tissue one time when you wipe. ??? Drink enough fluid to keep your urine pale yellow. ??? Keep all follow-up visits as told by your health care provider. This is important. Contact a health care provider if: ??? Your symptoms do not get better after 1???2 days. ??? Your symptoms go away and then return. Get help right away if you have: ??? Severe pain in your back or your lower abdomen. ??? A fever. ??? Nausea or vomiting. Summary ??? A urinary tract infection (UTI) is an infection of any part of the urinary tract, which includes the kidneys, ureters, bladder, and urethra. ??? Most urinary tract infections are caused by bacteria in your genital area, around the entrance to your urinary tract (urethra). ??? Treatment for this condition often includes antibiotic medicines. ??? If you were prescribed an antibiotic medicine, take it as told by your health care provider. Do not stop using the antibiotic even if you start to feel better. ??? Keep all follow-up visits as told by your health care provider. This is important. This information is not intended to replace advice given to you by your health care provider. Make sure you discuss any questions you have with your health care provider. Document Released: 02/07/2006 Document Revised: 04/17/2019 Document Reviewed: 11/07/2018 [employer] Interactive Patient Education ?? 2020 [employer]. Dysuria Dysuria is pain or discomfort while urinating. The pain or discomfort may be felt in the part of your body that drains urine from the bladder (urethra) or in the surrounding tissue of the genitals. The pain may also be felt in the groin area, lower abdomen, or lower back. You may have to urinate frequently or have the sudden feeling that you have to urinate (urgency). Dysuria can affect both men and women, but it is more common in women. Dysuria can be caused by many different things, including: ??? Urinary tract infection. ??? Kidney stones or bladder stones. ??? Certain sexually transmitted infections (STIs), such as chlamydia. ??? Dehydration. ??? Inflammation of the tissues of the vagina. ??? Use of certain medicines. ??? Use of certain soaps or scented products that cause irritation. Follow these instructions at home: General instructions ??? Watch your condition for any changes. ??? Urinate often. Avoid holding urine for long periods of time. ??? After a bowel movement or urination, women should cleanse from front to back, using each tissue only once. ??? Urinate after sexual intercourse. ??? Keep all follow-up visits as told by your health care provider. This is important. ??? If you had any tests done to find the cause of dysuria, it is up to you to get your test results. Ask your health care provider, or the department that is doing the test, when your results will be ready. Eating and drinking ??? Drink enough fluid to keep your urine pale yellow. ??? Avoid caffeine, tea, and alcohol. They can irritate the bladder and make dysuria worse. In men, alcohol may irritate the prostate. Medicines ??? Take undf-stf-qxyaahs and prescription medicines only as told by your health care provider. ??? If you were prescribed an antibiotic medicine, take it as told by your health care provider. Do not stop taking the antibiotic even if you start to feel better. Contact a health care provider if: ??? You have a fever. ??? You develop pain in your back or sides. ??? You have nausea or vomiting. ??? You have blood in your urine. ??? You are not urinating as often as you usually do. Get help right away if: ??? Your pain is severe and not relieved with medicines. ??? You cannot eat or drink without vomiting. ??? You are confused. ??? You have a rapid heartbeat while at rest. ??? You have shaking or chills. ??? You feel extremely weak. Summary ??? Dysuria is pain or discomfort while urinating. Many different conditions can lead to dysuria. ??? If you have dysuria, you may have to urinate frequently or have the sudden feeling that you have to urinate (urgency). ??? Watch your condition for any changes. Keep all follow-up visits as told by your health care provider. ??? Make sure that you urinate often and drink enough fluid to keep your urine pale yellow. This information is not intended to replace advice given to you by your health care provider. Make sure you discuss any questions you have with your health care provider. Document Released: 01/26/2005 Document Revised: 02/14/2018 Document Reviewed: 02/14/2018 [employer] Interactive Patient Education ?? 2020 [employer]. Emergency Awareness and Preventative Care STROKE is [...] Assistance with quitting is available by contacting 6-773-NFWY-NOW. This is a free resource providing counseling, [...] was given the opportunity to ask questions. Patient/Media Center Specialist Name: Patient/Media Center Specialist Signature: Relationship to Patient: Clinician/Hospital Media Center Specialist Signature: Please Provide a Telephone Number Where You Can Be Reached: Is it Permissible To Leave a Message? Date: Electronically signed by Jannette [facility] Conversion Elevator Service Mechanic Jordan at 08/31/2022 4:58 PM CDT documented in this encounter Plan of Treatment Not on file documented as of this encounter Visit Diagnoses Not on filedocumented in this encounter Care Teams Networker Relationship Specialty Start Date End Date Alan Beyer MD [address] [place] [address] PCP - General Family Medicine 06/08/23 documented as of this encounter
--- OUTSIDE RECORDS SUMMARY | 2024-11-05 10:21 | XMS_ITS | Encounter Summary ---
Author Organization [employer] Address [address] [place] [address] Care Team Providers Care Registered Associate Name Role Phone Alan Beyer MD Primary Care Provider [phone] Encounter Details Date Type Department Care Team (Late st Contact Info) Description 04/09/2019 Transcribed Document [facility] [place] [facility] [place] [address] ProviderJessenia MD [address] [place] [id number] Social History Tobacco Use Types Packs/Day Years Used Date Smoking Tobacco: Never Assessed Comments Unknown Sex and Gender Information Value Date Recorded Sex Assigned at Not on file Legal Sex Female 4:28 PM CDT Gender Identity Not on file Sexual Orientation Not on file documented as of this encounter Miscellaneous Notes * Cerner Conversion Note - Jessenia Alvarez MD - 04/09/2019 6:18 PM GATE AGENT DATE OF PROCEDURE: 04/09/2019 SURGEON: Yamil Rehman Jr, MD PREOPERATIVE DIAGNOSIS: Medial meniscus complex tear, right knee. POSTOPERATIVE DIAGNOSIS: Medial meniscus complex tear, right knee. OPERATION: Right knee arthroscopy with partial medial meniscectomy. ANESTHESIA: General plus local. COMPLICATIONS: None. BLOOD LOSS: Minimal. TOURNIQUET TIME: 15 minutes. DESCRIPTION OF PROCEDURE: Patient was taken to the operating room, placed in the supine position with general anesthesia. IV antibiotics were given. Time-out observed. Elevation of tourniquet to 250 mmHg, and the medial and lateral portals at the joint line level were established after time-out and elevation of the tourniquet and administration of antibiotics in the usual fashion. Complete arthroscopic examination of the right knee showed normal patellofemoral and lateral compartment. ACL and PCL normal. A radial split tear with two radial flaps, one at the midbody and one at the posterior horn were noted. The two flaps were removed with the shaver and biter. A stable rim of meniscus was remained approximately 50% of the posterior horn was removed. The remainder of the articular cartilage was in good condition on the medial side. After irrigation of the joint, portals closed with nylon suture. Sterile dressing placed and ice pack and transferred the patient to recovery room in good condition. Postop protocol is full range of motion, weightbearing as tolerated, and PT to start 2 times a week in 1st week postop. /[id number] MD FRANCISCA Cardozo Jr/JYOTHI / FRANCISCA / MODL /[id number] Electronically signed by Jannette, [facility] Conversion Core Mounter Cerner at 08/31/2022 5:05 PM CDT documented in this encounter Plan of Treatment Not on file documented as of this encounter Visit Diagnoses Not on filedocumented in this encounter Care Teams Registered Associate Relationship Specialty Start Date End Date Alan Beyer MD [address] [place] [address] PCP - General Family Medicine 06/08/23 documented as of this encounter
--- OUTSIDE RECORDS SUMMARY | 2024-11-05 10:21 | XMS_ITS | Encounter Summary ---
Author Organization [employer] Address [address] [place] [address] Care Team Providers Care Joy Operator Helper Name Role Phone Alan Beyer MD Primary Care Provider [phone] Encounter Details Date Type Department Care Team (Late st Contact Info) Description 08/11/2019 Transcribed Document [facility] [place] [facility] [address] ProviderJessenia MD [address], [place] [address] Social History Tobacco Use Types Packs/Day Years Used Date Smoking Tobacco: Never Assessed Comments Unknown Sex and Gender Information Value Date Recorded Sex Assigned at Not on file Legal Sex Female 4:28 PM CDT Gender Identity Not on file Sexual Orientation Not on file documented as of this encounter Miscellaneous Notes * Cerner Conversion Note - Jessenia Alvarez MD - 08/11/2019 8:46 AM CDT Electronically signed by Jannette [facility] Conversion Ssn/Ssbn Assistant Navigator Cerner at 08/31/2022 5:06 PM CDT documented in this encounter Plan of Treatment Not on file documented as of this encounter Visit Diagnoses Not on filedocumented in this encounter Care Teams Joy Operator Helper Relationship Specialty Start Date End Date Alan Beyer MD [address] [place] [address] PCP - General Family Medicine 06/08/23 documented as of this encounter
--- OUTSIDE RECORDS SUMMARY | 2024-11-05 10:21 | XMS_ITS | Encounter Summary ---
Author Organization [employer] Address [address] [place] [address] Care Team Providers Care Direct Marketing Executive Name Role Phone Alan Beyer MD Primary Care Provider [phone] Encounter Details Date Type Department Care Team (Late st Contact Info) Description 04/09/2019 Transcribed Document [facility] [place] Family Medicine [address] [place] [address] ProviderJessenia MD [address] [place] [address] Social History Tobacco Use Types Packs/Day Years Used Date Smoking Tobacco: Never Assessed Comments Unknown Sex and Gender Information Value Date Recorded Sex Assigned at Not on file Legal Sex Female 4:28 PM CDT Gender Identity Not on file Sexual Orientation Not on file documented as of this encounter Miscellaneous Notes * Cerner Conversion Note - Jessenia Alvarez MD - 04/09/2019 10:29 AM PERENNIAL 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 MANAGER Pre Procedure Adult Entered On: 04/09/2019 10:34 EST Performed On: 04/09/2019 10:29 EST by Tlaia Eason RN Height and Weight, Clinical Dosing Height Source : Stated Height Entry Format : [place] Height, Feet : 5 ft(Converted to: 152 cm, 60 Inch) Height, Inches : 5 Inch(Converted to: 0 ft 5 Inch, 12.70 cm) Clinical Height : 165.1 cm Weight Source : Standing scale Weight Entry Format : [place] Clinical Dosing Weight : 76.36 kg Weight, Pounds : 168 lb Body Surface Area (BSA) : 1.84 m2 Body Mass Index : 28 kg/m2 (HI) [place] Body Weight : 57 kg Talia Eason RN - 04/09/2019 10:29 EST Health Histories Smoking Status : 10 or more cigarettes (1/2 pack or more)/day in last 30 days Smokeless Tobacco Status : Never Desires Tobacco Cessation Medication : No Reason for No Tobacco Cessation Medication : Refuses FDA approved medications Talia Eason RN - 04/09/2019 10:29 EST Social History (As Of: 04/09/2019 10:34:34 EST) Tobacco: 10 or more cigarettes (1/2 [...] 05/24/2018 10:39:04 EST by Breanna Ivey RN) Infectious Disease History Infectious Disease History : Chicken pox/Shingles, Herpes, Influenza, Mononucleosis Isolation Needed : Standard Fever/Chills Last 48 Hours : No Travel To Regions with Travel Advisories : No Travel Outside [place] Within Last 30 Days : No Contact With Traveler to Advisory Region : No Tuberculosis Symptoms : None Talia Eason RN - 04/09/2019 10:29 EST Anesthesia/Transfusion History Family History of Anesthesia Reaction : No prior transfusion(s) Transfusion History : Prior anesthesia reaction Type of Anesthesia Reaction : Excessive nausea/vomiting Family History of Anesthesia Reaction : None Talia Eason RN - 04/09/2019 10:29 EST Functional Assessment Living Situation : Home Persons Assisting Patient at Home : Other: partner Current Daily Living Assistance : None Sensory Deficits : None Mobility Assistance Prior to Admission : Independent [place]ISON Hx Falls Immediate/Within 3 Months : No Current Home Treatments : None Talia Eason RN - 04/09/2019 10:29 EST [place] Suicide Severity Rating Scale (C-SSRS) CSSRS Past Month Wish to be : No CSSRS Past Month Suicidal Thoughts : No CSSRS Lifetime Suicide Behavior : No Suicide Severity Rating Score : 0 Suicide Severity Rating : No Additional Care Required at this time Talia Eason RN - 04/09/2019 10:29 EST Psychosocial History Does Someone Depend on You for Care? : Yes Have Arrangements been Made? : Yes Do You Have a History of the Following? : Anxiety Currently in Unsafe Situation : No Talia Eason RN - 04/09/2019 10:29 EST Advance Directive Patient has Advance Directive *Q : No, patient refuses Advance Directive information Talia Eason RN - 04/09/2019 10:29 EST Spiritual/Cultural Needs Any Spiritual/Cultural Needs or Requests : No Talia Eason RN - 04/09/2019 10:29 EST Teaching/Learning Assessment Individuals Taught : Patient Readiness to Learn : Cooperative Readiness to Learn : Explanation Learning Style Preferences Patient : Verbal explanation Talia Eason RN - 04/09/2019 10:29 EST Education Topics, Periop Preadmission Perioperative Education Grid IV's : Verbalizes understanding NPO Status/Directions : Verbalizes understanding Pain Management : Verbalizes understanding Remove Body Piercings : Verbalizes understanding Responsible Adult : Verbalizes understanding SNE's : Verbalizes understanding Talia Eason RN - 04/09/2019 10:29 EST General Info Preferred Name : Charline Arrived From : Home Mode of Arrival on Unit : Ambulatory Legal Guardian : Mother, Other: partner Want Family/Rep/Phys Notified of Admit : No Emergency Contact #1 : Jean-Pierre Emergency Contact #1 Emergency Contact #1 Relationship : mother Emergency Contact #2 : . Emergency Contact #2 Phone Number : . Emergency Contact #2 Relationship : . Information Obtained From : Patient Primary Language : Indonesian Preferred Communication Mode : Verbal Communication Barrier : None Talia Eason RN - 04/09/2019 10:29 EST Sleep Apnea Risk Assmt Hx of Obstructive Sleep Apnea Diagnosis : No Snore Loudly : Yes Tired, Fatigued, or Sleepy During Day : No Observed Stopping Breathing During Sleep : No Have/Are Being Treated for Hypertension : No BMI Greater Than 35 kg/m2 : No Age over 50 Years Old : No Neck Circumference Greater Than 40 cm : No Gender Male : No STOP-BANG Sleep Apnea Risk Level Score : 1 Talia Eason RN - 04/09/2019 10:29 EST Spenser Scale Spenser Sensory Perception : No impairment [place] Moisture : Rarely moist [place] Activity : Walks occasionally [place] Mobility : Slightly limited [place] Nutrition : Adequate [place] Friction and Shear : No apparent problem Spenser Score : 20 Talia Eason RN - 04/09/2019 10:29 EST Oxygen Therapy Oxygen Therapy Mode : Room air Talia Eason RN - 04/09/2019 10:29 EST Pain Assessment Pain Assessment : Initial assessment Pain Scale Used : 0-10 Scale Location : Knee, right Talia Eason RN - 04/09/2019 10:29 EST Fall Risk Scales ABCs Fall Injury Risk Identification : Surgery ABC Fall Injury Risk : Moderate to high injury risk HARRISON Hx Falls Immediate/Within 3 Months : No Harrison Secondary Diagnosis : Yes HARRISON Use of Ambulatory Aid : Bed rest/Nurse assist H[place]ISON IV Therapy or IV Access : Yes Harrison Gait/Transferring : Normal, bedrest, immobile Harrison Mental Status : Oriented to own ability Harrison Fall Risk Score : 35 [place] Fall Scale Risk Level : 25-45 Medium Risk [place] Fall Interventions : Adequate lighting, Bed in low position, Call device within reach, Frequent orientation to surroundings, Hourly comfort/safety rounds, Non-slip footwear, Upper side-rails up, Wheels locked, Wires/Cords secured Talia Eason RN - 04/09/2019 10:29 EST Valuables and Belongings Valuables and Belongings : Clothing Clothing : Common streetwear Clothing Disposition : With family Talia Eason RN - 04/09/2019 10:29 EST Pain Scale Intensity : 7 Talia Eason RN - 04/09/2019 10:29 EST Image 4 - Images currently included in the form version of this document have not been included in the text rendition version of the form. Lewis Coma [place] Best Motor Response : Obey commands [place] Best Verbal Response : Oriented [place] Eye Opening Response : Spontaneous [place] Coma Score : 15 Talia Eason RN - 04/09/2019 10:29 EST Electronically signed by [facility] Conversion Analytics Manager Cerner at 08/31/2022 5:26 PM CDT documented in this encounter Plan of Treatment Not on file documented as of this encounter Visit Diagnoses Not on filedocumented in this encounter Care Teams Direct Marketing Executive Relationship Specialty Start Date End Date Alan Beyer MD [address] [place] [address] PCP - General Family Medicine 06/08/23 documented as of this encounter
--- OUTSIDE RECORDS SUMMARY | 2024-11-05 10:21 | XMS_ITS | Encounter Summary ---
Author Organization [employer] Address [address] [place] [address] Care Team Providers Care Contact Lens Manufacturer Name Role Phone Alan Beyer MD Primary Care Provider [phone] Encounter Details Date Type Department Care Team (Late st Contact Info) Description 06/06/2018 Transcribed Document [facility] [place] Family [place] [facility] [place] [address] ProviderJessenia MD [address] [place] [address] Social History Tobacco Use Types Packs/Day Years Used Date Smoking Tobacco: Never Assessed Comments Unknown Sex and Gender Information Value Date Recorded Sex Assigned at Not on file Legal Sex Female 4:28 PM CDT Gender Identity Not on file Sexual Orientation Not on file documented as of this encounter Miscellaneous Notes * Cerner Conversion Note - Jessenia Alvarez MD - 06/06/2018 10:[address] LOCKSMITH Discharge Instructions Entered On: 06/06/2018 10:35 EST Performed On: 06/06/2018 10:35 EST by Shala Perez Rn DC Instructions HWD Stroke/TIA Discharge Ins : N/A Heart Failure Discharge Ins : N/A Warfarin Discharge Ins : N/A Diet After Discharge : Regular diet as tolerated Activity After Discharge : Rest and relax today, No strenuous activities, No heavy lifting over 10 pounds Driving After Discharge : Do not drive, Other: for one week Showering/Bathing : May shower Wound/Incision Care After Discharge : Keep operative site/wound site clean and dry Shala Perez Rn - 06/06/2018 10:35 EST documented in this encounter Plan of Treatment Not on file documented as of this encounter Visit Diagnoses Not on filedocumented in this encounter Care Teams Contact Lens Manufacturer Relationship Specialty Start Date End Date Alan Beyer MD [address] [place] [address] PCP - General Family Medicine 06/08/23 documented as of this encounter
--- OUTSIDE RECORDS SUMMARY | 2024-11-05 10:21 | XMS_ITS | Encounter Summary ---
Author Organization [employer] Address [address] [place] [address] Care Team Providers Care Irrigation Foreman Name Role Phone Alan Beyer MD Primary Care Provider [phone] Encounter Details Date Type Department Care Team (Late st Contact Info) Description 12/23/2020 Transcribed Document [facility] [place] Family Medicine [address] [place] [address] ProviderJessenia MD [address] [place] [address] Social History Tobacco Use Types [...] Alvarez MD - 12/23/2020 9:39 AM CDT [place] Violence Assessment Entered On: 12/23/2020 10:16 EDT Performed On: 12/23/2020 10:14 EDT by Suyapa An RN-PATIENT CARE BEDSIDE NON-EXEMPT Broset Violence Assessment Broset Violence Checklist of Symptoms : None Bro[place] Violence Symptoms Subtotal : 0 [place] Violence Symptoms Indicator : Low risk (0) Suyapa An RN-PATIENT CARE BEDSIDE NON-EXEMPT - 12/23/2020 10:14 EDT documented in this encounter Plan of Treatment Not on file documented as of this encounter Visit Diagnoses Not on filedocumented in this encounter Care Teams Irrigation Foreman Relationship Specialty Start Date End Date Alan Beyer MD [address] [place] [address] PCP - General Family Medicine 06/08/23 documented as of this encounter
--- OUTSIDE RECORDS SUMMARY | 2024-11-05 10:21 | XMS_ITS | Encounter Summary ---
Author Organization [employer] Address [address] [place] [address] Care Team Providers Care Access Manager Name Role Phone Alan Beyer MD Primary Care Provider [phone] Encounter Details Date Type Department Care Team (Late st Contact Info) Description 04/09/2019 Transcribed Document [facility] [place] [facility] [place] [address] ProviderJessenia MD [address] [place] [address] Social History Tobacco Use Types Packs/Day Years Used Date Smoking Tobacco: Never Assessed Comments Unknown Sex and Gender Information Value Date Recorded Sex Assigned at Not on file Legal Sex Female 4:28 PM CDT Gender Identity Not on file Sexual Orientation Not on file documented as of this encounter Miscellaneous Notes * Cerner Conversion Note - Jessenia Alvarez MD - 04/09/2019 3:16 PM [employer] Patient Education Materials Follows: Incentive Spirometer An incentive spirometer is a tool that measures how well you are filling your lungs with each breath. This tool can help keep your lungs clear and active. Taking long, deep breaths may help reverse or decrease the chance of developing breathing (pulmonary) problems, especially infection, following: ??? Surgery of the chest or abdomen. ??? Surgery if you have a history of smoking or a lung problem. ??? A long period of time when you are unable to move or be active. If the spirometer includes an indicator to show your best effort, your health care provider or respiratory therapist will help you set a goal. Keep a log of your progress if directed by your health care provider. What are the risks? Breathing too quickly may cause dizziness or cause you to pass out. Take your time so you do not get dizzy or lightheaded. ??? If you are in pain, you may need to take or ask for pain medicine before doing incentive spirometry. It is harder to take a deep breath if you are having pain. How to use your incentive spirometer 1. Sit on the edge of your bed if possible, or sit up as far as you can in bed or on a chair. 2. Hold the incentive spirometer in an upright position. 3. Breathe out normally. 4. Place the mouthpiece in your mouth and seal your lips tightly around it. 5. Breathe in slowly and as deeply as possible, raising the piston or the ball toward the top of the column. 6. Hold your breath for 3?5 seconds or for as long as possible. Allow the piston or ball to fall to the bottom of the column. 7. Remove the mouthpiece from your mouth and breathe out normally. 8. The spirometer may include an indicator to show your best effort. Use the indicator as a goal to work toward during each repetition. 9. Rest for a few seconds and repeat this at least 10 times, every 1?2 hours when you are awake. Take your time and take a few normal breaths between deep breaths. Breathing too quickly may cause dizziness or cause you to pass out. Take your time so you do not get dizzy or lightheaded. 10. After each set of 10 deep breaths, practice coughing to be sure your lungs are clear. If you had a surgical cut (incision) made during surgery, support your incision when coughing by placing a pillow or rolled-up towel firmly against it. Once you are able to get out of bed, walk around indoors and cough well. You may stop using the incentive spirometer when instructed by your health care provider. Contact a health care provider if: ??? You are having difficulty using the spirometer. ??? You have trouble using the spirometer as often as instructed. ??? Your pain medicine is not giving enough relief while using the spirometer. ??? You have a fever. ??? You develop shortness of breath. Get help right away if: ??? You develop a cough with bloody sputum. ??? You develop worsening pain, redness, or discharge at or near the incision site. This information is not intended to replace advice given to you by your health care provider. Make sure you discuss any questions you have with your health care provider. Document Released: 09/10/2007 Document Revised: 01/22/2017 Document Reviewed: 12/07/2014 [employer] Interactive Patient Education ? 2018 [employer] Crutch Use, Adult Crutches are used to take weight off of one of your legs or feet when you stand or walk. You may need crutches to help heal after an injury or procedure. It is important to use crutches that fit right. Your crutches fit right if: ??? You can fit 2 or 3 fingers between your armpit and the crutch. ??? You use your hands, not your armpits, to hold yourself up. Do not put your armpits on the crutches. This can damage the nerves in your shoulders, arms, back, armpits, and hands. It is important that a doctor has seen you use crutches the right way before you use them at home. How to use your crutches How you will use your crutches will depend on why you need them. Your doctor may tell you not to put weight on (not to support your weight with) your hurt leg (non?weight-bearing). Or, your doctor may let you put (bear) some of your weight on the hurt leg (partial weight-bearing), but not all of your weight. Follow instructions from your doctor about weight-bearing. Do not put weight on your leg in an amount that causes pain. Walking 1. Stand on your good leg and lift both crutches at the same time. 2. Place the crutches one step-length in front of you. 3. Bring the good leg forward to meet the crutches or to land a little bit ahead of them. 4. Repeat. Going up steps If there is no handrail: 1. Step up with your good leg. 2. Step up with the crutches and your hurt leg. 3. Repeat. If there is a handrail: 1. Hold both crutches in one hand. 2. Place your other hand on the handrail. 3. Put your weight on your arms and lift your good leg up to the step. 4. Bring the crutches and the hurt leg up to that step. 5. Repeat. Going up steps on your butt If you do not feel steady on steps, you can go up steps on your butt. 1. Sit on the lowest step. ??? Have your hurt leg out in front. ??? Use your other hand to hold both crutches flat on the stairs. 2. Scoot your butt up to the next step. Use the free hand and your good leg to help you do this. Going down steps If there is no handrail: 1. Step down with your hurt leg and crutches. 2. Step down with your good leg. 3. Repeat. If there is a handrail: 1. Place your hand on the handrail. 2. Hold both crutches with your free hand. 3. Lower your hurt leg and crutch to the step below you. Keep the crutch tips in the center of the step. Never put the crutch tips on the edge of the step. 4. Lower your good leg to that step. 5. Repeat. Going down steps on your butt If you do not feel steady on steps, you can go down steps on your butt. 1. Sit on the highest step. ??? Have your hurt leg out in front. ??? Use your other hand to hold both crutches flat on the stairs. 2. Scoot your butt down to the next step. Use the free hand and your good leg to help you do this. Standing up 1. Hold the hurt leg forward. 2. Grab the armrest with one hand. Use the other hand to grab the top of the crutches. 3. Use the armrest and your crutches to pull yourself up to stand. Sitting down 1. Hold the hurt leg forward. 2. Grab the armrest with one hand. Use the other hand to grab the top of the crutches. 3. Slowly lower yourself to sit. Get help if: ??? You feel unsteady or wobbly using crutches. ??? You have any new pain. ??? You cannot feel a part of your body (numbness) or you have a tingling feeling. ??? Your crutches do not fit. Get help right away if: ??? You fall. This information is not intended to replace advice given to you by your health care provider. Make sure you discuss any questions you have with your health care provider. Document Released: 10/16/2008 Document Revised: 12/12/2017 Document Reviewed: 10/20/2016 [employer] Interactive Patient Education ? 2019 [employer]. General Anesthesia, Adult, Care After This sheet gives you information about how to care for yourself after your procedure. Your health care provider may also give you more specific instructions. If you have problems or questions, contact your health care provider. What can I expect after the procedure? After the procedure, the following side effects are common: ??? Pain or discomfort at the IV site. ??? Nausea. ??? Vomiting. ??? Sore throat. ??? Trouble concentrating. ??? Feeling cold or chills. ??? Weak or tired. ??? Sleepiness and fatigue. ??? Soreness and body aches. These side effects can affect parts of the body that were not involved in surgery. Follow these instructions at home: For at least 24 hours after the procedure: ??? Have a responsible adult stay with you. It is important to have someone help care for you until you are awake and alert. ??? Rest as needed. ??? Do not: ? Participate in activities in which you could fall or become injured. ? Drive. ? Use heavy machinery. ? Drink alcohol. ? Take sleeping pills or medicines that cause drowsiness. ? Make important decisions or sign legal documents. ? Take care of children on your own. Eating and drinking ??? Follow any instructions from your health care provider about eating or drinking restrictions. ??? When you feel hungry, start by eating small amounts of foods that are soft and easy to digest (bland), such as toast. Gradually return to your regular diet. ??? Drink enough fluid to keep your urine pale yellow. ??? If you vomit, rehydrate by drinking water, juice, or clear broth. General instructions ??? If you have sleep apnea, surgery and certain medicines can increase your risk for breathing problems. Follow instructions from your health care provider about wearing your sleep device: ? Anytime you are sleeping, including during daytime naps. ? While taking prescription pain medicines, sleeping medicines, or medicines that make you drowsy. ??? Return to your normal activities as told by your health care provider. Ask your health care provider what activities are safe for you. ??? Take giiu-bng-sdnfjgd and prescription medicines only as told by your health care provider. ??? If you smoke, do not smoke without supervision. ??? Keep all follow-up visits as told by your health care provider. This is important. Contact a health care provider if: ??? You have nausea or vomiting that does not get better with medicine. ??? You cannot eat or drink without vomiting. ??? You have pain that does not get better with medicine. ??? You are unable to pass urine. ??? You develop a skin rash. ??? You have a fever. ??? You have redness around your IV site that gets worse. Get help right away if: ??? You have difficulty breathing. ??? You have chest pain. ??? You have blood in your urine or stool, or you vomit blood. Summary ??? After the procedure, it is common to have a sore throat or nausea. It is also common to feel tired. ??? Have a responsible adult stay with you for the first 24 hours after general anesthesia. It is important to have someone help care for you until you are awake and alert. ??? When you feel hungry, start by eating small amounts of foods that are soft and easy to digest (bland), such as toast. Gradually return to your regular diet. ??? Drink enough fluid to keep your urine pale yellow. ??? Return to your normal activities as told by your health care provider. Ask your health care provider what activities are safe for you. This information is not intended to replace advice given to you by your health care provider. Make sure you discuss any questions you have with your health care provider. Document Released: 08/06/2001 Document Revised: 12/14/2017 Document Reviewed: 12/14/2017 [employer] Interactive Patient Education ? 2019 [employer] Knee Arthroscopy, Care After Refer to this sheet in the next few weeks. These instructions provide you with information about caring for yourself after your procedure. Your health care provider may also give you more specific instructions. Your treatment has been planned according to current medical practices, but problems sometimes occur. Call your health care provider if you have any problems or questions after your procedure. What can I expect after the procedure? After the procedure, it is common to have: ??? Soreness. ??? Pain. Follow these instructions at home: Bathing ??? Do not take baths, swim, or use a hot tub until your health care provider approves. Incision care ??? There are many different ways to close and cover an incision, including stitches, skin glue, and adhesive strips. Follow your health care provider?s instructions about: ? Incision care. ? Bandage (dressing) changes and removal. ? Incision closure removal. ??? Check your incision area every day for signs of infection. Watch for: ? Redness, swelling, or pain. ? Fluid, blood, or pus. Activity ??? Avoid strenuous activities for as long as directed by your health care provider. ??? Return to your normal activities as directed by your health care provider. Ask your health care provider what activities are safe for you. ??? Perform ebqar-xr-mgdwiv exercises only as directed by your health care provider. ??? Do not lift anything that is heavier than 10 lb (4.5 kg). ??? Do not drive or operate heavy machinery while taking pain medicine. ??? If you were given crutches, use them as directed by your health care provider. Managing pain, stiffness, and swelling ??? If directed, apply ice to the injured area: ? Put ice in a plastic bag. ? Place a towel between your skin and the bag. ? Leave the ice on for 20 minutes, 2?3 times per day. ??? Raise the injured area above the level of your heart while you are sitting or lying down as directed by your health care provider. General instructions ??? Keep all follow-up visits as directed by your health care provider. This is important. ??? Take medicines only as directed by your health care provider. ??? Do not use any tobacco products, including cigarettes, chewing tobacco, or electronic cigarettes. If you need help quitting, ask your health care provider. ??? If you were given compression stockings, wear them as directed by your health care provider. These stockings help prevent blood clots and reduce swelling in your legs. Contact a health care provider if: ??? You have severe pain with any movement of your knee. ??? You notice a bad smell coming from the incision or dressing. ??? You have redness, swelling, or pain at the site of your incision. ??? You have fluid, blood, or pus coming from your incision. Get help right away if: ??? You develop a rash. ??? You have a fever. ??? You have difficulty breathing or have shortness of breath. ??? You develop pain in your calves or in the back of your knee. ??? You develop chest pain. ??? You develop numbness or tingling in your leg or foot. This information is not intended to replace advice given to you by your health care provider. Make sure you discuss any questions you have with your health care provider. Document Released: 11/17/2005 Document Revised: 09/29/2016 Document Reviewed: 04/26/2015 [employer] Interactive Patient Education ? 2018 [employer]. documented in this encounter Plan of Treatment Not on file documented as of this encounter Visit Diagnoses Not on filedocumented in this encounter Care Teams Access Manager Relationship Specialty Start Date End Date Alan Beyer MD [address] [place] [address] PCP - General Family Medicine 06/08/23 documented as of this encounter
--- OUTSIDE RECORDS SUMMARY | 2024-11-05 10:21 | XMS_ITS | Encounter Summary ---
Author Organization [employer] Address [address] [place] [address] Care Team Providers Care Bill Collector Name Role Phone Alan Beyer MD Primary Care Provider [phone] Encounter Details Date Type Department Care Team (Late st Contact Info) Description 02/02/2019 Transcribed Document [facility] [place] [facility] [place] [address] ProviderJessenia MD [address] [place] [address] Social History Tobacco Use Types Packs/Day Years Used Date Smoking Tobacco: Never Assessed Comments Unknown Sex and Gender Information Value Date Recorded Sex Assigned at Not on file Legal Sex Female 4:28 PM CDT Gender Identity Not on file Sexual Orientation Not on file documented as of this encounter Miscellaneous Notes * Cerner Conversion Note - Jessenia Alvarez MD - 02/02/2019 12:50 PM CDT Pain Assessment Entered On: 02/02/2019 14:19 EDT Performed On: 02/02/2019 14:19 EDT by Karie Goodwin, RN Intervention Information: HYDROmorphone Performed by Karie Goodwin, RN on 02/02/2019 13:06:00 EDT HYDROmorphone,1mg IV Push,Peripheral Line 1 Pain Assessment Pain Assessment : Follow-up assessment Karie Goodwin, RN - 02/02/2019 14:19 EDT documented in this encounter Plan of Treatment Not on file documented as of this encounter Visit Diagnoses Not on filedocumented in this encounter Care Teams Bill Collector Relationship Specialty Start Date End Date Alan Beyer MD [address] [id number] PCP - General Family Medicine 06/08/23 documented as of this encounter
--- OUTSIDE RECORDS SUMMARY | 2024-11-05 10:21 | XMS_ITS | Encounter Summary ---
Author Organization [employer] Address [address] [place] [address] Care Team Providers Care City Plant Supervisor Name Role Phone Alan Beyer MD Primary Care Provider [phone] Encounter Details Date Type Department Care Team (Late st Contact Info) Description 12/23/2020 Transcribed Document [facility] [place] [facility] [place] [address] ProviderJessenia MD [address] [place], [place] [id number] Social History Tobacco Use Types Packs/Day Years Used Date Smoking Tobacco: Never Assessed Comments Unknown Sex and Gender Information Value Date Recorded Sex Assigned at Not on file Legal Sex Female 4:28 PM CDT Gender Identity Not on file Sexual Orientation Not on file documented as of this encounter Miscellaneous Notes * Cerner Conversion Note - Jessenia Alvarez MD - 12/23/2020 1:44 PM CDT Patient: CHARLINE BOND Age: 40 years Sex: Female : 1980 Associated Diagnoses: Body aches; Dehydration; Viral illness; BP (high blood pressure) Author: GROVER MEZA MD-EMR Basic Information Additional information: Chief Complaint from Nursing Triage Note : Chief Complaint 12/23/2020 9:41 EDT Chief Complaint presents with h/a nausea, body aches, cant taste, states thinks she has a covid, 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 . History of Present Illness The patient presents with body aches. The onset was 1 days ago. The course/duration of symptoms is constant. Location: generalized. Associated symptoms: nausea, headache, denies vomiting, denies shortness of breath, denies fever, denies chills, denies dizziness and denies back pain. Review of Systems Constitutional symptoms: No fever, no chills. Skin symptoms: No rash, Eye symptoms: Negative except as documented in HPI. ENMT symptoms: Negative except as documented in HPI. Respiratory symptoms: No shortness of breath, no cough. Cardiovascular symptoms: No chest pain, Gastrointestinal symptoms: Negative except as documented in HPI. Genitourinary symptoms: No dysuria, Musculoskeletal symptoms: Negative except as documented in HPI. Neurologic symptoms: Headache. Psychiatric symptoms: Negative except as documented in HPI. Hematologic/Lymphatic symptoms: Bleeding tendency negative, Additional review of systems information: All other [...] I have reviewed it.. Surgical history: Clavicle ([id number]). Tympanostomy ([id number]). Adenoids ([id number]). shoulder surgery. Gallbladder absent ([id number]). Tubal ligation ([id number]). Hysterectomy ([id number]). Right knee ([id number]). Comments: 05/03/2020 15:32 YENI - Jyoti Frazier Rn menisectomy. Family history: [...] Physical Examination Vital Signs Vital Signs/Vital Measures 12/23/2020 13:46 EDT Systolic Blood Pressure 175 mmHg HI Diastolic Blood Pressure 98 mmHg HI Peripheral Pulse Rate 90 bpm Respiratory Rate 17 Breaths/Min Oxygen Saturation 99 % Oxygen Therapy Mode Room air 12/23/2020 9:41 EDT Systolic Blood Pressure 152 mmHg HI Diastolic Blood Pressure 110 mmHg HI Temperature Source Oral Temperature Mode Fahrenheit Temperature, Fahrenheit 98.1 Deg F Clinical Temperature, C 36.7 Deg C Peripheral Pulse Rate 109 bpm HI Respiratory Rate 16 Breaths/Min Oxygen Saturation 99 % Oxygen Therapy Mode Room air . Measurements 12/23/2020 9:41 EDT Height Source Stated Height Entry Format [place] Height/Length, MACANESE (ft) 5 ft Height/Length MACANESE 5 Inch CLINICALHEIGHT 165.1 cm [place] Body Weight 56.59 kg Weight Source, ED Critical estimated dosing weight Weight Entry Format [place] Weight [place] lb 165 lb CLINICALWEIGHT 75 kg Body Surface Area (BSA) 1.82 m2 Body Mass Index 27.5 kg/m2 HI . Oxygen Saturation 12/23/2020 13:46 EDT Oxygen Saturation 99 % 12/23/2020 9:41 EDT Oxygen Saturation 99 % . General: Alert, no acute distress, anxious. Skin: Warm, dry. Head: Normocephalic, atraumatic. Neck: Supple. Eye: Pupils are equal, round and reactive to light, extraocular movements are intact, normal conjunctiva. Ears, nose, mouth and throat: Oral mucosa moist. Cardiovascular: Regular rate and rhythm. Respiratory: Lungs are clear to auscultation, respirations are non-labored, breath sounds are equal, Symmetrical chest wall expansion. Gastrointestinal: Soft, Nontender, Non distended, Normal bowel sounds, No organomegaly. Back: Nontender, Normal range of motion. Musculoskeletal: Normal ROM, normal strength, no tenderness, no swelling. Neurological: Alert and oriented to person, place, time, and situation, No focal neurological deficit observed. Psychiatric: Cooperative. Medical Decision Making Results review: Lab results : Lab Results 12/23/2020 9:46 EDT SARS-CoV-2 (COVID19 PCR) Negative . Reexamination/ Reevaluation I gave patient fluids and ibuprofen Her repeat BP is down to 175/98 (I took it), pulse is down to 90 I offered to start BP meds, but she prefers to see her family Dr for this She is requesting that I treat her pain I have explained that a viral infection does NOT warrant strong pain medicine. I have explained that parainfluenza virus is going around, and has symptoms just like this. Ibuprofen or tylenol should be sufficient. Keep hydrated. Patient is upset that no one has been in to see her since I was last in the room I apologized, and explained we are in a pandemic. We are doing the best we can. Impression and Plan Diagnosis Complaint of Body aches - Reason For Visit, Emergency medicine, Medical Dehydration - Discharge, Emergency medicine, Medical Viral illness - Discharge, Emergency medicine, Medical BP (high blood pressure) - Discharge, Emergency medicine, Medical Plan Condition: Improved. Disposition: Discharged Admit/Transfer/Discharge: Discharge (Order): Start: 12/23/2020 13:48 EDT, Discharge to: Home. Patient was given the following educational materials: Viral Illness, Adult. Follow up with: RHIANNA MARTIN Within 2 to 3 days; Follow up with primary care provider Within 2 to 3 days Take ibuprofen over the counter 2 tabs every 4 hours Drink plenty of fluids. Hot toddies with lemon, tea and honey, are good, and so is chicken soup. Off work for 3 days If you are still sick in 3 days, you should get a repeat covid test. Counseled: Patient, Regarding diagnosis, Regarding diagnostic results, Regarding treatment plan, Regarding prescription, Patient indicated understanding of instructions. Addendum This patient was screened for and treated during the covid epidemic, with some possible constraints and deviations from usual care due to this, if tested and or screened the patient was educated on quarantine and isolation protocols until they follow up with their tests. documented in this encounter Plan of Treatment Not on file documented as of this encounter Visit Diagnoses Not on filedocumented in this encounter Care Teams City Plant Supervisor Relationship Specialty Start Date End Date Alan Beyer MD [address] [place] [address] PCP - General Family Medicine 06/08/23 documented as of this encounter
--- OUTSIDE RECORDS SUMMARY | 2024-11-05 10:21 | XMS_ITS | Encounter Summary ---
Author Organization [employer] Address [address] [place] [address] Care Team Providers Care Contact Person Name Role Phone Alan Beyer MD Primary Care Provider [phone] Encounter Details Date Type Department Care Team (Late st Contact Info) Description 12/23/2020 Transcribed Document [facility] [place] [facility] [place] [address] ProviderJessenia MD [address], [place] [id number] Social History Tobacco Use Types Packs/Day Years [...] MD - 12/23/2020 9:39 AM CDT ED Triage Entered On: 12/23/2020 9:43 EDT Performed On: 12/23/2020 9:41 EDT by VANDANA RENNER RN ED Triage Across the Room Chief Complaint : presents with h/a nausea, body aches, cant taste, states thinks she has a covid, 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 Triage Date/Time : 12/23/2020 9:41 EDT VANDANA RENNER RN - 12/23/2020 9:41 EDT DCP GENERIC CODE Tracking Acuity : 3 - Urgent Tracking Group : [facility] ED [facility] VANDANA RENNER RN - 12/23/2020 9:41 EDT Mode of Arrival : Ambulatory Transported to ED by : Private vehicle To Room Via : Ambulate Accompanied By : Unaccompanied ED Vital Signs : Document Height & Weight : Document ED Allergies : Document ED Reason for Visit : Document Tetanus Immunization : Unknown VANDANA RENNER RN - 12/23/2020 9:41 EDT Infectious Disease History Has the patient ever been tested for COVID-19? : No, Patient stated Does patient have symptoms of COVID-19? : Yes COVID19 Screening : Yes Experiencing Infectious Disease Symptoms : Fever >/=38.6C/101 F /, Headache, Vomiting, Weakness/Fatigue Physical contact outside [place] in the last 30 days : No Infectious Disease History : Chicken pox/Shingles, Herpes, Influenza, Mononucleosis Tuberculosis Symptoms : None VANDANA RENNER RN - 12/23/2020 9:41 EDT Vital Signs ED Temperature Source : Oral Temperature Mode : Fahrenheit Temperature, Fahrenheit : 98.1 Deg F Clinical Temperature, C : 36.7 Deg C Oxygen Therapy Mode : Room air Peripheral Pulse Rate : 109 bpm (HI) Respiratory Rate : 16 Breaths/Min Systolic Blood Pressure : 152 mmHg (HI) Diastolic Blood Pressure : 110 mmHg (HI) Oxygen Saturation : 99 % VANDANA RENNER RN - 12/23/2020 9:41 EDT Allergy (As Of: 12/23/2020 09:43:23 EDT) Allergies (Active) acetaminophen-oxyCODONE Estimated Onset Date: Unspecified ; Comments: Comment 1: throws up and itching ; Created By: Breanna Ivey Rn; Reaction Status: Active ; Category: Drug ; Substance: acetaminophen-oxyCODONE ; Severity: Severe ; Updated By: Breanna Ivey Rn; Source: Patient ; Reviewed Date: 12/23/2020 9:42 EDT baclofen Estimated Onset Date: Unspecified ; Comments: Comment 1: hives and cant breath ; Created By: Breanna Ivey Rn; Reaction Status: Active ; Category: Drug ; Substance: baclofen ; Type: Allergy ; Updated By: Breanna Ivey Rn; Reviewed Date: 12/23/2020 9:42 EDT Bactrim Estimated Onset Date: Unspecified ; Comments: Comment 1: hives not breathing ; Created By: Breanna Ivey Rn; Reaction Status: Active ; Category: Drug ; Substance: Bactrim ; Type: Allergy ; Severity: Severe ; Updated By: Breanna Ivey Rn; Source: Patient ; Reviewed Date: 12/23/2020 9:42 EDT clindamycin Estimated Onset Date: Unspecified ; Comments: Comment 1: Hives, vomiting ; Created By: Talia Eason RN; Reaction Status: Active ; Category: Drug ; Substance: clindamycin ; Type: Allergy ; Severity: Severe ; Updated By: Talia Eason RN; Reviewed Date: 12/23/2020 9:42 EDT doxycycline Estimated Onset Date: Unspecified ; Comments: Comment 1: hives and projectile vomiting ; Created By: Breanna Ivey Rn; Reaction Status: Active ; Category: Drug ; Substance: doxycycline ; Type: Allergy ; Updated By: Breanna Ivey Rn; Reviewed Date: 12/23/2020 9:42 EDT escitalopram Estimated Onset Date: Unspecified ; Comments: Comment 1: unknown ; Created By: Breanna Ivye Rn; Reaction Status: Active ; Category: Drug ; Substance: escitalopram ; Type: Allergy ; Updated By: Breanna Ivey Rn; Reviewed Date: 12/23/2020 9:42 EDT fentaNYL Estimated Onset Date: Unspecified ; Comments: Comment 1: hallucinate and cry ; Created By: Breanna Ivey Rn; Reaction Status: Active ; Category: Drug ; Substance: fentaNYL ; Type: Allergy ; Updated By: Breanna Ivey Rn; Reviewed Date: 12/23/2020 9:42 EDT lidocaine topical 2% gel Estimated Onset Date: Unspecified ; Comments: Comment 1: severe swelling, itching, rash ; Created By: Breanna Ivey Rn; Reaction Status: Active ; Category: Drug ; Substance: lidocaine topical 2% gel ; Type: Allergy ; Updated By: Breanna Ivey Rn; Reviewed Date: 12/23/2020 9:42 EDT meperidine Estimated Onset Date: Unspecified ; Comments: Comment 1: hallucinations and angry ; Created By: Breanna Ivey Rn; Reaction Status: Active ; Category: Drug ; Substance: meperidine ; Type: Allergy ; Updated By: Breanna Ivey Rn; Reviewed Date: 12/23/2020 9:42 EDT morphine Estimated Onset Date: Unspecified ; Comments: Comment 1: severe itching ; Created By: Breanna Ivey Rn; Reaction Status: Active ; Category: Drug ; Substance: morphine ; Type: Allergy ; Updated By: Breanna Ivey Rn; Reviewed Date: 12/23/2020 9:42 EDT penicillin Estimated Onset Date: Unspecified ; Reactions: Hives ; Comments: Comment 1: hives Comment 2: Pt has tolerated cefoxitin in 06/30, 06/01, and trying cefazolin 05/01 ; Created By: JAME ZUNIGA PharmD; Reaction Status: Active ; Category: Drug ; Substance: penicillin ; Type: Allergy ; Updated By: JAME ZUNIGA PharmD; Reviewed Date: 12/23/2020 9:42 EDT tetanus immune globulin Estimated Onset Date: Unspecified ; Comments: Comment 1: adverse reaction I get tetanus and my body will swell up ; Created By: Breanna Ivey Rn; Reaction Status: Active ; Category: Drug ; Substance: tetanus immune globulin ; Type: Allergy ; Updated By: Breanna Ivey Rn; Reviewed Date: 12/23/2020 9:42 EDT Toradol Estimated Onset Date: Unspecified ; Comments: Comment 1: feels like a softball in chest and my chest goes numb ; Created By: Breanna Ivye Rn; Reaction Status: Active ; Category: Drug ; Substance: Toradol ; Type: Allergy ; Updated By: Breanna Ivey Rn; Reviewed Date: 12/23/2020 9:42 EDT Diagnosis Control ED (As Of: 12/23/2020 09:43:23 EDT) Problems(Active) Anxiety (SNOMED CT :42529049 ) Name of Problem: Anxiety ; Recorder: ERICKA ISSA RN; Confirmation: Confirmed ; Classification: Medical ; Code: [id number] ; Contributor System: PowerChart ; Last Updated: 07/26/2015 22:28 EDT ; Life Cycle Date: 07/26/2015 ; Life Cycle Status: Active ; Vocabulary: SNOMED CT Endometriosis, vagina (SNOMED CT :53510202 ) Name of Problem: Endometriosis, vagina ; Recorder: Breanna Ivey RN; Confirmation: Confirmed ; Classification: Medical ; Code: [id number] ; Contributor System: PowerChart ; Last Updated: 05/24/2018 10:54 EST ; Life Cycle Date: 05/24/2018 ; Life Cycle Status: Active ; Vocabulary: SNOMED CT Kidney stones (SNOMED CT :472012606 ) Name of Problem: Kidney stones ; Recorder: KAYY ANDREW; Confirmation: Confirmed ; Classification: Medical ; Code: 159797191 ; Contributor System: Cloud ContentChart ; Last Updated: 06/06/2016 9:30 EST ; Life Cycle Date: 06/06/2016 ; Life Cycle Status: Active ; Vocabulary: SNOMED CT Migraine (SNOMED CT :76378588 ) Name of Problem: Migraine ; Recorder: ERICKA ISSA RN; Confirmation: Confirmed ; Classification: Medical ; Code: [id number] ; Contributor System: Cloud ContentChart ; Last Updated: 07/26/2015 22:28 EDT ; Life Cycle Date: 07/26/2015 ; Life Cycle Status: Active ; Vocabulary: SNOMED CT S/P hysterectomy (SNOMED CT :551918530 ) Name of Problem: S/P hysterectomy ; Recorder: LEONID CASTANEDA RN; Confirmation: Confirmed ; Classification: Medical ; Code: 303597511 ; Contributor System: PowerChart ; Last Updated: 11/06/2019 20:08 EDT ; Life Cycle Date: 11/06/2019 ; Life Cycle Status: Active ; Vocabulary: SNOMED CT Shoulder pain, left (SNOMED CT :13245753 ) Name of Problem: Shoulder pain, left ; Recorder: Breanna Ivey RN; Confirmation: Confirmed ; Classification: Medical ; Code: 30647591 ; Contributor System: Kenshoo ; Last Updated: 05/24/2018 10:53 EST ; Life Cycle Date: 05/24/2018 ; Life Cycle Status: Active ; Vocabulary: SNOMED CT Diagnoses(Active) Body aches Date: 12/23/2020 ; Diagnosis Type: Reason For Visit ; Confirmation: Complaint of ; Clinical Dx: Body aches ; Classification: Medical ; Clinical Service: Emergency medicine ; Code: PNED ; Probability: 0 ; Diagnosis Code: [id number] ED Height and Weight Height Source : Stated Height Entry Format : [place] Height, Feet : 5 ft(Converted to: 152 cm, 60 Inch) Height, Inches : 5 Inch(Converted to: 0 ft 5 Inch, 12.70 cm) Clinical Height : 165.1 cm Weight Source, ED : Critical estimated dosing weight Weight Entry Format : [place] Weight, Pounds : 165 lb Clinical Dosing Weight : 75 kg Body Surface Area (BSA) : 1.82 m2 Body Mass Index : 27.5 kg/m2 (HI) [place] Body Weight (IBW) : 56.59 kg VANDANA RENNER RN - 12/23/2020 9:41 EDT Electronically signed by Jannette, [facility] Conversion Step Down Specialist Cerner at 08/31/2022 5:26 PM CDT documented in this encounter Plan of Treatment Not on file documented as of this encounter Visit Diagnoses Not on filedocumented in this encounter Care Teams Contact Person Relationship Specialty Start Date End Date Alan Beyer MD [address] [place] [address] PCP - General Family Medicine 06/08/23 documented as of this encounter
--- OUTSIDE RECORDS SUMMARY | 2024-11-05 10:21 | XMS_ITS | Encounter Summary ---
Author Organization [employer] Address [address] [place] [address] Care Team Providers Care School Administrator Name Role Phone Alan Beyer MD Primary Care Provider [phone] Encounter Details Date Type Department Care Team (Late st Contact Info) Description 12/23/2020 Transcribed Document [facility] [place] [facility] [place] [address] ProviderJessenia MD [address] [place], [place] [address] Social History Tobacco Use Types Packs/Day Years Used Date Smoking Tobacco: Never Assessed Comments Unknown Sex and Gender Information Value Date Recorded Sex Assigned at Not on file Legal Sex Female 4:28 PM CDT Gender Identity Not on file Sexual Orientation Not on file documented as of this encounter Miscellaneous Notes * [employer]ner Conversion Note - Jessenia Alvarez MD - 12/23/2020 2:17 PM CDT ED Discharge Entered On: 12/23/2020 14:54 EDT Performed On: 12/23/2020 14:17 EDT by Suyapa An RN-PATIENT CARE BEDSIDE NON-EXEMPT Discharge Process Patient Disposition : Discharge Personal Belongings With Patient : Yes Patient Education Completed : Yes Teaching Evaluation : Verbalizes understanding IV Discontinued : Yes Suyapa An RN-PATIENT CARE BEDSIDE NON-EXEMPT - 12/23/2020 14:53 EDT ED Discharge Discharge To : Home with ambulatory/outpatient follow-up Mode Of Departure : Ambulatory Accompanied By : Friend Discharge Instructions Reviewed With, Opportunity For Questions Given : Patient Prescriptions Given to Patient : No Nataliya, Suyapa, RN-PATIENT CARE BEDSIDE NON-EXEMPT - 12/23/2020 14:53 EDT documented in this encounter Plan of Treatment Not on file documented as of this encounter Visit Diagnoses Not on filedocumented in this encounter Care Teams School Administrator Relationship Specialty Start Date End Date Alan Beyer MD [address] [place] [address] PCP - General Family Medicine 06/08/23 documented as of this encounter
--- OUTSIDE RECORDS SUMMARY | 2024-11-05 10:21 | XMS_ITS | Encounter Summary ---
Author Organization [employer] Address [address] [place] [address] Care Team Providers Care Shaper Machine Hand Name Role Phone Alan Beyer MD Primary Care Provider [phone] Encounter Details Date Type Department Care Team (Late st Contact Info) Description 11/06/2019 Transcribed Document [facility] [place] [facility] [address] ProviderJessenia MD [address] [place] [address] Social History Tobacco Use Types Packs/Day Years Used Date Smoking Tobacco: Never Assessed Comments Unknown Sex and Gender Information Value Date Recorded Sex Assigned at Not on file Legal Sex Female 4:28 PM CDT Gender Identity Not on file Sexual Orientation Not on file documented as of this encounter Miscellaneous Notes * [employer]ner Conversion Note - Jessenia Alvarez MD - 11/06/2019 7:42 PM CDT ED Triage Entered On: 11/06/2019 20:12 EDT Performed On: 11/06/2019 20:06 EDT by LEONID CASTANEDA RN ED Triage Across the Room Chief Complaint : c/o left flank pain started this morning; states she has hx of kidney stones; +blood in the urine. +nausea/vomiting Triage Date/Time : 11/06/2019 20:06 EDT LEONID CASTANEDA RN - 11/06/2019 20:06 EDT DCP GENERIC CODE Tracking Acuity : 3 - Urgent Tracking Group : [facility] LEONID CASTANEDA RN - 11/06/2019 20:06 EDT Mode of Arrival : Ambulatory Transported to ED by : Private vehicle To Room Via : Wheelchair Accompanied By : Significant other ED Vital Signs : Document Height & Weight : Document ED Allergies : Document ED Reason for Visit : Document Tetanus Immunization : Unknown LEONID CASTANEDA RN - 11/06/2019 20:06 EDT Infectious Disease History Has the patient ever been tested for COVID-19? : Yes, Patient stated results Negative Where was the COVID-19 Testing completed? : last week COVID19 Screening : No Experiencing Infectious Disease Symptoms : No symptoms Physical contact outside [place] in the last 30 days : No Infectious Disease Symptoms Score : 0 Infectious Disease History : Chicken pox/Shingles, Herpes, Influenza, Mononucleosis Tuberculosis Symptoms : None LEONID CASTANEDA RN - 11/06/2019 20:06 EDT Vital Signs ED Temperature Source : Oral Temperature Mode : Fahrenheit Temperature, Fahrenheit : 97.4 Deg F ED Pain : Yes Clinical Temperature, C : 36.3 Deg C Oxygen Therapy Mode : Room air Peripheral Pulse Rate : 94 bpm Respiratory Rate : 18 Breaths/Min Blood Pressure Location : Arm, right upper Blood Pressure Source : Non-Invasive BP Device Systolic Blood Pressure : 147 mmHg (HI) Diastolic Blood Pressure : 94 mmHg (HI) Oxygen Saturation : 100 % LEONID CASTANEDA RN - 11/06/2019 20:06 EDT Allergy (As Of: 11/06/2019 20:12:51 EDT) Allergies (Active) acetaminophen-oxyCODONE Estimated Onset Date: Unspecified ; Comments: Comment 1: throws up and itching ; Created By: Breanna Ivey Rn; Reaction Status: Active ; Category: Drug ; Substance: acetaminophen-oxyCODONE ; Severity: Severe ; Updated By: Breanna Ivey Rn; Source: Patient ; Reviewed Date: 11/06/2019 20:07 EDT baclofen Estimated Onset Date: Unspecified ; Comments: Comment 1: hives and cant breath ; Created By: Breanna Ivey Rn; Reaction Status: Active ; Category: Drug ; Substance: baclofen ; Type: Allergy ; Updated By: Breanna Ivey Rn; Reviewed Date: 11/06/2019 20:07 EDT Bactrim Estimated Onset Date: Unspecified ; Comments: Comment 1: hives not breathing ; Created By: Breanna Ivey Rn; Reaction Status: Active ; Category: Drug ; Substance: Bactrim ; Type: Allergy ; Severity: Severe ; Updated By: Breanna Ivey Rn; Source: Patient ; Reviewed Date: 11/06/2019 20:07 EDT clindamycin Estimated Onset Date: Unspecified ; Comments: Comment 1: Hives, vomiting ; Created By: Talia Eason RN; Reaction Status: Active ; Category: Drug ; Substance: clindamycin ; Type: Allergy ; Severity: Severe ; Updated By: Talia Eason RN; Reviewed Date: 11/06/2019 20:07 EDT doxycycline Estimated Onset Date: Unspecified ; Comments: Comment 1: hives and projectile vomiting ; Created By: Breanna Ivey Rn; Reaction Status: Active ; Category: Drug ; Substance: doxycycline ; Type: Allergy ; Updated By: Breanna Ivey Rn; Reviewed Date: 11/06/2019 20:07 EDT escitalopram Estimated Onset Date: Unspecified ; Comments: Comment 1: unknown ; Created By: Breanna Ivey Rn; Reaction Status: Active ; Category: Drug ; Substance: escitalopram ; Type: Allergy ; Updated By: Breanna Ivey Rn; Reviewed Date: 11/06/2019 20:07 EDT fentaNYL Estimated Onset Date: Unspecified ; Comments: Comment 1: hallucinate and cry ; Created By: Breanna Ivey Rn; Reaction Status: Active ; Category: Drug ; Substance: fentaNYL ; Type: Allergy ; Updated By: Breanna Ivey Rn; Reviewed Date: 11/06/2019 20:07 EDT lidocaine topical 2% gel Estimated Onset Date: Unspecified ; Comments: Comment 1: severe swelling, itching, rash ; Created By: Breanna Ivey Rn; Reaction Status: Active ; Category: Drug ; Substance: lidocaine topical 2% gel ; Type: Allergy ; Updated By: Breanna Ivey Rn; Reviewed Date: 11/06/2019 20:07 EDT meperidine Estimated Onset Date: Unspecified ; Comments: Comment 1: hallucinations and angry ; Created By: Breanna Ivey Rn; Reaction Status: Active ; Category: Drug ; Substance: meperidine ; Type: Allergy ; Updated By: Breanan Ivey Rn; Reviewed Date: 11/06/2019 20:07 EDT morphine Estimated Onset Date: Unspecified ; Comments: Comment 1: severe itching ; Created By: Breanna Ivey Rn; Reaction Status: Active ; Category: Drug ; Substance: morphine ; Type: Allergy ; Updated By: Breanna Ivey Rn; Reviewed Date: 11/06/2019 20:07 EDT penicillin Estimated Onset Date: Unspecified ; Reactions: Hives ; Comments: Comment 1: hives Comment 2: Pt has tolerated cefoxitin in 06/30, 06/01, and trying cefazolin 05/01 ; Created By: JAME ZUNIGA PharmD; Reaction Status: Active ; Category: Drug ; Substance: penicillin ; Type: Allergy ; Updated By: JAME ZUNIGA PharmD; Reviewed Date: 11/06/2019 20:07 EDT tetanus immune globulin Estimated Onset Date: Unspecified ; Comments: Comment 1: adverse reaction I get tetanus and my body will swell up ; Created By: Breanna Ivey Rn; Reaction Status: Active ; Category: Drug ; Substance: tetanus immune globulin ; Type: Allergy ; Updated By: Breanna Ivey Rn; Reviewed Date: 11/06/2019 20:07 EDT Toradol Estimated Onset Date: Unspecified ; Comments: Comment 1: feels like a softball in chest and my chest goes numb ; Created By: Breanna Ivey Rn; Reaction Status: Active ; Category: Drug ; Substance: Toradol ; Type: Allergy ; Updated By: Breanna Ivey Rn; Reviewed Date: 11/06/2019 20:07 EDT Diagnosis Control ED (As Of: 11/06/2019 20:12:51 EDT) Problems(Active) Anxiety (SNOMED CT :92708566 ) Name of Problem: Anxiety ; Recorder: ERICKA ISSA RN; Confirmation: Confirmed ; Classification: Medical ; Code: [id number] ; Contributor System: PowerChart ; Last Updated: 07/26/2015 22:28 EDT ; Life Cycle Date: 07/26/2015 ; Life Cycle Status: Active ; Vocabulary: SNOMED CT Endometriosis, vagina (SNOMED CT :78402834 ) Name of Problem: Endometriosis, vagina ; Recorder: Breanna Ivey RN; Confirmation: Confirmed ; Classification: Medical ; Code: 45854139 ; Contributor System: PowerChart ; Last Updated: 05/24/2018 10:54 EST ; Life Cycle Date: 05/24/2018 ; Life Cycle Status: Active ; Vocabulary: SNOMED CT Kidney stones (SNOMED CT :608045823 ) Name of Problem: Kidney stones ; Recorder: KAYY ANDREW; Confirmation: Confirmed ; Classification: Medical ; Code: [id number] ; Contributor System: PowerChart ; Last Updated: 06/06/2016 9:30 EST ; Life Cycle Date: 06/06/2016 ; Life Cycle Status: Active ; Vocabulary: SNOMED CT Migraine (SNOMED CT :41543484 ) Name of Problem: Migraine ; Recorder: ERICKA ISSA RN; Confirmation: Confirmed ; Classification: Medical ; Code: 46173764 ; Contributor System: PowerChart ; Last Updated: 07/26/2015 22:28 EDT ; Life Cycle Date: 07/26/2015 ; Life Cycle Status: Active ; Vocabulary: SNOMED CT S/P hysterectomy (SNOMED CT :666017319 ) Name of Problem: S/P hysterectomy ; Recorder: LEONID CASTANEDA RN; Confirmation: Confirmed ; Classification: Medical ; Code: [id number] ; Contributor System: PowerChart ; Last Updated: 11/06/2019 20:08 EDT ; Life Cycle Date: 11/06/2019 ; Life Cycle Status: Active ; Vocabulary: SNOMED CT Shoulder pain, left (SNOMED CT :49779501 ) Name of Problem: Shoulder pain, left ; Recorder: Breanna Ivey RN; Confirmation: Confirmed ; Classification: Medical ; Code: 53412635 ; Contributor System: Heroic ; Last Updated: 05/24/2018 10:53 EST ; Life Cycle Date: 05/24/2018 ; Life Cycle Status: Active ; Vocabulary: SNOMED CT Diagnoses(Active) Blood in urine Date: 11/06/2019 ; Diagnosis Type: Reason For Visit ; Confirmation: Complaint of ; Clinical Dx: Blood in urine ; Classification: Medical ; Clinical Service: Emergency medicine ; Code: PNED ; Probability: 0 ; Diagnosis Code: [id number] Flank pain Date: 11/06/2019 ; Diagnosis Type: Reason For Visit ; Confirmation: Complaint of ; Clinical Dx: Flank pain ; Classification: Medical ; Clinical Service: Emergency medicine ; Code: PNED ; Probability: 0 ; Diagnosis Code: [id number] Nausea Date: 11/06/2019 ; Diagnosis Type: Reason For Visit ; Confirmation: Complaint of ; Clinical Dx: Nausea ; Classification: Medical ; Clinical Service: Emergency medicine ; Code: PNED ; Probability: 0 ; Diagnosis Code: [id number] Vomiting Date: 11/06/2019 ; Diagnosis Type: Reason For Visit ; Confirmation: Complaint of ; Clinical Dx: Vomiting ; Classification: Medical ; Clinical Service: Emergency medicine ; Code: PNED ; Probability: 0 ; Diagnosis Code: [id number] ED Height and Weight Height Source : Measured Height Entry Format : [place] Height, Feet : 5 ft(Converted to: 152 cm, 60 Inch) Height, Inches : 5 Inch(Converted to: 0 ft 5 Inch, 12.70 cm) Clinical Height : 165.1 cm Weight Source, ED : Standing scale Weight Entry Format : [place] Weight, Pounds : 170 lb Clinical Dosing Weight : 77.27 kg Body Surface Area (BSA) : 1.85 m2 Body Mass Index : 28.3 kg/m2 (HI) [place] Body Weight (IBW) : 56.59 kg LEONID CASTANEDA RN - 11/06/2019 20:06 EDT Pain Assessment Pain Assessment : Initial assessment Pain Scale Used : 0-10 Scale Location : Flank, left Quality : Aching LEONID CASTANEDA RN - 11/06/2019 20:06 EDT Pain Scale Intensity : 8 LEONID CASTANEDA RN - 11/06/2019 20:06 EDT Image 4 - Images currently included in the form version of this document have not been included in the text rendition version of the form. ED Influenza/Pneumoccocal Vaccine Influenza Immunization, Current Season : Yes Previous Vaccines from Immunization Schedule : No qualifying data available. LEONID CASTANEDA RN - 11/06/2019 20:06 EDT documented in this encounter Plan of Treatment Not on file documented as of this encounter Visit Diagnoses Not on filedocumented in this encounter Care Teams Shaper Machine Hand Relationship Specialty Start Date End Date Alan Beyer MD [address] [place] [address] PCP - General Family Medicine 06/08/23 documented as of this encounter
--- OUTSIDE RECORDS SUMMARY | 2024-11-05 10:21 | XMS_ITS | Encounter Summary ---
Author Organization [employer] Address [address] [place] [address] Care Team Providers Care Transit Mix Operator Name Role Phone Alan Beyer MD Primary Care Provider [phone] Encounter Details Date Type Department Care Team (Late st Contact Info) Description 06/06/2018 Transcribed Document [facility] [place] [facility] [place] [address] ProviderJessenia MD [address] [place] [id number] Social History Tobacco Use Types Packs/Day Years Used Date Smoking Tobacco: Never Assessed Comments Unknown Sex and Gender Information Value Date Recorded Sex Assigned at Not on file Legal Sex Female 4:28 PM CDT Gender Identity Not on file Sexual Orientation Not on file documented as of this encounter Miscellaneous Notes * Cerner Conversion Note - Jessenia ProviderMD - 06/06/2018 2:00 AM 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 Workers Compensation Paralegal Details Entered On: 06/06/2018 5:14 EST Performed On: 06/06/2018 2:00 EST by JULIÁN TAFOYA RN Order Details Transport Mode Order Detail : Ambulatory Isolation Precautions Order Detail : Standard Precautions Order Detail : 0 IV Order Detail : 0 Oxygen Order Detail : 0 Nurse Collect Order Detail : 0 Lift/Transfer : Minimal Central Line Order Detail : No Room Service : Appropriate Arterial Line : No JULIÁN TAFOYA RN - 06/06/2018 5:14 EST documented in this encounter Plan of Treatment Not on file documented as of this encounter Visit Diagnoses Not on filedocumented in this encounter Care Teams Transit Mix Operator Relationship Specialty Start Date End Date Alan Beyer MD [address] [place] [address] PCP - General Family Medicine 06/08/23 documented as of this encounter
--- OUTSIDE RECORDS SUMMARY | 2024-11-05 10:21 | XMS_ITS | Encounter Summary ---
Author Organization [employer] Address [address] [place] [address] Care Team Providers Care Traveling Operator Name Role Phone Alan Beyer MD Primary Care Provider [phone] Encounter Details Date Type Department Care Team (Late st Contact Info) Description 06/28/2018 Transcribed Document [facility] [place] [facility] [place] [address] ProviderJessenia MD [address] [place] [id number] Social History Tobacco Use Types Packs/Day Years Used Date Smoking Tobacco: Never Assessed Comments Unknown Sex and Gender Information Value Date Recorded Sex Assigned at Not on file Legal Sex Female 4:28 PM CDT Gender Identity Not on file Sexual Orientation Not on file documented as of this encounter Miscellaneous Notes * Cerner Conversion Note - Jessenia Alvarez MD - 06/28/2018 6:32 PM SUPPLY CHAIN INTERN Patient: CHARLINE BOND Age: 37 years Sex: Female : 1980 Associated Diagnoses: History of hysterectomy; Vaginal pain; Vaginal pain Author: YOVANA JONES PA Basic Information Time seen: Immediately upon arrival. History source: Patient. Arrival mode: Private vehicle, walking. History limitation: None. Additional information: Chief Complaint from Nursing Triage Note : Chief Complaint 06/28/2018 13:22 EST Chief Complaint Pt states 3 week post-op vaginal hysterectomy, c/o vaginal pain starting last night. . History of Present Illness The patient presents with pelvic pain. The onset was just prior to arrival. The course/duration of symptoms is constant. Radiating pain: none. The character of symptoms is achy. The degree of symptoms is minimal. Risk factors consist of none. Prior episodes: none. Associated symptoms: abdominal pain, denies fever, denies chills, denies nausea, denies vomiting, denies dysuria and denies rash. pt states she can feel something down there. no fever, chills vag bleeding or discharge. no n/v/d Review of Systems Constitutional symptoms: Negative except [...] Medications: (Selected) Documented Medications Documented Karine: Oral, 0 Refill(s) Premarin: Oral, Daily, 0 Refill(s) Robaxin-750 oral tablet: 1 Tab, Oral, Daily, 42 Tab, 0 Refill(s) Valtrex: Oral, 0 Refill(s) ibuprofen: 0 Refill(s) vitamin E: 100 Int Units, Oral, Daily, 0 Refill(s). Immunizations: Per nurse's notes. Menstrual history: Per nurse's notes. Past Medical/ Family/ Social History Medical history Reviewed as documented in chart. Surgical history: Clavicle ([id number]). Tympanostomy ([id number]). Adenoids ([id number]). shoulder surgery. Gallbladder absent ([id number]). Tubal ligation ([id number]). Hysterectomy ([id number])., Reviewed as documented in chart. Family history: No family history items have been selected or recorded., Reviewed as documented in chart. Social history: [...] Physical Examination Vital Signs Vital Signs/Vital Measures 06/28/2018 13:22 EST Temperature Source Oral Temperature Mode Fahrenheit Temperature, Fahrenheit 98.0 Deg F Clinical Temperature, C 36.7 Deg C Peripheral Pulse Rate 108 bpm HI Respiratory Rate 18 Breaths/Min Systolic Blood Pressure 125 mmHg Diastolic Blood Pressure 86 mmHg Oxygen Saturation 99 % Oxygen Therapy Mode Room air . Measurements 06/28/2018 13:22 EST Height Source Stated Height Entry Format [place] Height/Length, [place] (ft) 5 ft Height/Length [place] 5 Inch CLINICALHEIGHT 165.1 cm [place] Body Weight 56.59 kg Weight Source, ED Standing scale Weight Entry Format [place] Weight Turkish lb 161 lb CLINICALWEIGHT 73.18 kg Body Surface Area (BSA) 1.81 m2 Body Mass Index 26.8 kg/m2 HI . Oxygen Saturation 06/28/2018 13:22 EST Oxygen Saturation 99 % . General: Alert, no acute distress. Skin: Dry, intact, normal for ethnicity. Head: Normocephalic, atraumatic. Neck: Trachea midline. Eye: Normal conjunctiva, vision grossly normal. Cardiovascular: Regular rate and rhythm, Normal peripheral perfusion. Respiratory: Lungs are clear to auscultation, respirations are non-labored. Chest wall: No tenderness, No deformity. Back: Nontender. Musculoskeletal: No tenderness, no deformity. Gastrointestinal: Soft, Tenderness: Moderate, right lower quadrant, Guarding: Negative, Rebound: Negative, Bowel sounds: Normal. Genitourinary: kumar lewis, External genitalia: Normal, Speculum exam: Moderate, tenderness, erythema, sutures in place, signs of estrogen cream , no bleeding, no blood clots, Bimanual exam: Normal. Neurological: Alert and oriented to person, place, time, and situation, No focal neurological deficit observed. Psychiatric: Cooperative, appropriate mood & affect. Medical Decision Making Differential Diagnosis: Pelvic pain, uti not vaginal bleeding, not vaginal discharge. Documents reviewed: Emergency department nurses' notes, emergency department records, prior records. Results review: Lab results : Lab Results 06/28/2018 16:47 EST Urine Type U CleanCatch Urine Color Yellow Urine Appearance Clear Urine Specific [place] 1.012 Urine pH Dipstick 6.0 Urine Leukocyte Esterase Negative Urine Nitrite Negative Urine Protein Dipstick Negative Urine Glucose Dipstick Negative Urine Ketones Dipstick Negative Urine Urobilinogen Dipstick 0.2 EU/dL Urine Bilirubin Dipstick Negative mg/dL Urine Blood Dipstick Negative HCG Urine Qualitative Negative Wet Prep See Result 06/28/2018 16:05 EST Sodium Level 138 mmol/L Potassium Level 3.4 mmol/L LOW Chloride Level 108 mmol/L Carbon Dioxide Level 24 mmol/L Anion Gap 9 Glucose Level 99 mg/dL Blood Urea Nitrogen 10 mg/dL Creatinine Level 0.68 mg/dL eGFR >60 mL/min/1.73m2 eGFR NonAfrican >60 mL/min/1.73m2 Bun/Creatinine 14.7 Calcium Level 8.6 mg/dL Protein Total 8.0 Gram/dL Albumin Level 4.2 Gram/dL Globulin 3.8 Gram/dL A/G Ratio 1.1 Bilirubin Total 0.3 mg/dL Alk Phos 97 Units/Liter AST 7 Units/Liter ALT 14 Units/Liter WBC 7.2 K/uL RBC 3.96 Million/uL Hgb 13.6 Gram/dL Hct 40.2 % MCV 101.5 fL HI MCH 34.3 pg HI MCHC 33.8 Gram/dL Platelet Count 224 K/uL MPV 10.1 fL RDW 12.0 % Neut % 59.2 % Neut # 4.24 K/uL Lymph % 34.7 % Lymph # 2.49 K/uL Edmunds % 4.6 % LOW Edmunds # 0.33 K/uL Eos % 1.1 % Eos # 0.08 K/uL Baso % 0.1 % Baso # 0.01 K/uL Slide Review No IG# 0 x10(3)/uL IG% 0 % . Radiology results: Radiology Results (Last 48 hours) [id number] -- 06/28/2018 13:18 CT Abdomen Pelvis W (06/28/2018 17:26) Result: CT OF THE ABDOMEN AND PELVIS HISTORY: Severe right lower quadrant and pelvic pain. Hysterectomy 3weeks ago.PROCEDURE: Routine axial images were obtained from the lung bases tothe pubic symphysis following IV, but no oral contrast administration.This study was performed with techniques to keep radiation doses as lowas reasonably achievable, (ALARA). Individualized dose reductiontechniques using automated exposure control or adjustment of mA and/orkV according to the patient size were employed.COMPARISON: 12/16/2017FINDINGS: Abdomen: The gallbladder has been removed. Solid abdominal organs andureters are normal. The GI tract is unremarkable, with no sign ofappendicitis.Pelvis: There is a normal right ovary. The uterus and left ovary are notvisualized. The urinary bladder is normal. There is no pelvic orabdominal ascites, adenopathy, or acute osseous abnormality.IMPRESSION: Unremarkable. There is no evidence of appendicitis or otherright lower quadrant or pelvic inflammation.. . Reexamination/ Reevaluation Vital signs results included from flowsheet : Vital Measurements 06/28/2018 18:00 EST Temperature Mode Fahrenheit Temperature, Fahrenheit 98.0 Deg F Peripheral Pulse Rate 65 bpm Respiratory Rate 18 Breaths/Min Systolic Blood Pressure 125 mmHg Diastolic Blood Pressure 86 mmHg Oxygen Saturation 100 % 06/28/2018 13:22 EST Temperature Source Oral Temperature Mode Fahrenheit Temperature, Fahrenheit 98.0 Deg F Clinical Temperature, C 36.7 Deg C Peripheral Pulse Rate 108 bpm HI Respiratory Rate 18 Breaths/Min Systolic Blood Pressure 125 mmHg Diastolic Blood Pressure 86 mmHg Oxygen Saturation 99 % Oxygen Therapy Mode Room air abnormal vital signs addressed Pain status: decreased. Assessment: exam improved. pt in no acute distress. Discussed lab results,ct, and pe findings, pt showed understanding and agreed to tmt plan and importance of f/up w Dr branch and what symptoms to return to ER for Impression and Plan Diagnosis History of hysterectomy - Discharge, Medical Vaginal pain - Discharge, Medical Complaint of Vaginal pain - Reason For Visit, Emergency medicine, Medical Calls-Consults - 06/28/2018 18:37:00 , DORIS BRANCH DO, phone call, recommends dc home w doxy bid x 10 days and pain meds. Plan Condition: Improved, Stable. Prescriptions: Prescription Credentials Specialist Pharmacy: Flagyl 500 mg oral tablet (Prescribe): 1 Tab, Oral, Q12H, for 7 Day(s), do not drink alcohol not to exceed 4 g/day, 14 Tab, 0 Refill(s) [place] 5 mg-325 mg oral tablet (Prescribe): 1 Tab, Oral, Q6H, for 3 Day(s), PRN: for pain, 12 Tab, 0 Refill(s) promethazine 25 mg oral tablet (Prescribe): 1 Tab, Oral, Q4H, PRN: as needed for nausea/vomiting, 60 Tab, 0 Refill(s). Patient was given the following educational materials: Hysterectomy Information, [id number], Vaginal Hysterectomy, Care After. Follow up with: JORGE LUIS BUENO Within 2 to 3 days; DORIS BRANCH Within 2 to 3 days Call for follow up appointment sunday morining return to er if symptoms worsen, take meds as prescribed, keep using cream, no intercourse and bed rest hope you feel better!. Counseled: Patient, Family, Regarding diagnosis, Regarding diagnostic results, Regarding treatment plan, Regarding prescription, Patient indicated understanding of instructions. Electronically signed by Trevon Bhatia Conversion Rail Doweling Machine Operator Cerner at 08/31/2022 5:22 PM CDT documented in this encounter Plan of Treatment Not on file documented as of this encounter Visit Diagnoses Not on filedocumented in this encounter Care Teams Traveling Operator Relationship Specialty Start Date End Date Alan Beyer MD [address] [place] [address] PCP - General Family Medicine 06/08/23 documented as of this encounter
--- OUTSIDE RECORDS SUMMARY | 2024-11-05 10:21 | XMS_ITS | Encounter Summary ---
Author Organization [employer] Address [address] [place] [address] Care Team Providers Care Sheet Rock Layer Name Role Phone Alan Beyer MD Primary Care Provider [phone] Encounter Details Date Type Department Care Team (Late st Contact Info) Description 08/11/2019 Transcribed Document [facility] [place] Medicine [facility] [place] [address] ProviderJessenia MD [address] [place] [address] Social History Tobacco Use Types Packs/Day Years Used Date Smoking Tobacco: Never Assessed Comments Unknown Sex and Gender Information Value Date Recorded Sex Assigned at Not on file Legal Sex Female 4:28 PM CDT Gender Identity Not on file Sexual Orientation Not on file documented as of this encounter Miscellaneous Notes * Cerner Conversion Note - Jessenia Alvarez MD - 08/11/2019 7:06 AM CDT [place] Suicide Severity Rating Scale (C-SSRS) Entered On: 08/11/2019 7:19 EDT Performed On: 08/11/2019 7:19 EDT by Jyoti Cordon RN [place] Suicide Severity Rating Scale (C-SSRS) CSSRS Past Month Wish to be : No CSSRS Past Month Suicidal Thoughts : No CSSRS Lifetime Suicide Behavior : No Suicide Severity Rating Score : 0 Suicide Severity Rating : No Additional Care Required at this time Jyoti Cordon RN - 08/11/2019 7:19 EDT Electronically signed by Trevon Bhatia Conversion Esthetician And Manager [employer] Cerner at 08/31/2022 5:17 PM CDT documented in this encounter Plan of Treatment Not on file documented as of this encounter Visit Diagnoses Not on filedocumented in this encounter Care Teams Sheet Rock Layer Relationship Specialty Start Date End Date Alan Beyer MD [address] [place] [address] PCP - General Family Medicine 06/08/23 documented as of this encounter
--- OUTSIDE RECORDS SUMMARY | 2024-11-05 10:21 | XMS_ITS | Encounter Summary ---
Author Organization [employer] Address [address] [place] [address] Care Team Providers Care Batt Packer Name Role Phone Alan Beyer MD Primary Care Provider [phone] Encounter Details Date Type Department Care Team (Late st Contact Info) Description 06/06/2018 Transcribed Document [facility] [place] Family [place] [facility] [place] [address] ProviderJessenia MD [address] [place] [id number] Social History Tobacco Use Types Packs/Day Years Used Date Smoking Tobacco: Never Assessed Comments Unknown Sex and Gender Information Value Date Recorded Sex Assigned at Not on file Legal Sex Female 4:28 PM CDT Gender Identity Not on file Sexual Orientation Not on file documented as of this encounter Miscellaneous Notes * Cerner Conversion Note - Jessenia Alvarez MD - 06/06/2018 10:39 AM BAILIFF [facility] [address] [place] [address] Patient Copy Patient Information: Name: CHARLINE BOND Current Date: 06/06/2018 10:38:59 : 1980 Patient Address: [address] [place] [id number] Patient Attending Physician: DORIS BRANCH DO Primary Care Provider: JORGE LUIS BUENO NP-[facility] Primary Care Provider Discharge Diagnosis: Weight on Admission: 165 lb, 0 oz Comment: Follow-up Instructions: With: Address: When: DORIS BRANCH [address], [address] [place] [id number] Play[employer] (1) 2:25 PM Discharge Instructions: Diet after Discharge: Regular diet as tolerated Activity after Discharge: Rest and relax today, No strenuous activities, No heavy lifting over 10 pounds Driving after Discharge: Do not drive, Other: for one week Showering/Bathing: May shower Wound/Incision Care after Discharge: Keep operative site/wound site clean and dry Immunizations Documented During Stay: No Immunizations Found Heart Failure Discharge Instructions (if any): Stroke Related Discharge Instructions (if any): Warfarin Related Discharge Instructions (if any): Final Medication List: Other Medications methocarbamol (Robaxin-750 oral tablet) 1 Tablet(s) Oral Every Day. valACYclovir (Valtrex) Oral. vitamin E 100 International Units Oral Every Day. Patient Allergies: fentaNYL; acetaminophen-oxyCODONE; Toradol; Bactrim; escitalopram; lidocaine topical 2% gel; tetanus immune globulin; baclofen; morphine; penicillin; clindamycin; doxycycline; meperidine Medication Instructions: Take your medications faithfully. Do NOT skip [...] cramping, rapid heartbeat, difficulty sleeping, and nervousness. Patient education materials: Laparoscopically Assisted Vaginal Hysterectomy, Care After Refer to this sheet in the next few weeks. These instructions provide you with information on caring for yourself after your procedure. Your health care provider may also give you more specific instructions. Your treatment has been planned according to current medical practices, but problems sometimes occur. Call your health care provider if you have any problems or questions after your procedure. What can I expect after the procedure? After your procedure, it is typical to have the following: ??? Abdominal pain. You will be given pain medicine to control it. ??? Sore throat from the breathing tube that was inserted during surgery. Follow these instructions at home: ??? Only take ycei-wja-bssiavu or prescription medicines for pain, discomfort, or fever as directed by your health care provider. ??? Do nottake aspirin. It can cause bleeding. ??? Do notdrive when taking pain medicine. ??? Follow your health care provider's advice regarding diet, exercise, lifting, driving, and general activities. ??? Resume your usual diet as directed and allowed. ??? Get plenty of rest and sleep. ??? Do notdouche, use tampons, or have sexual intercourse for at least 6 weeks, or until your health care provider gives you permission. ??? Change your bandages (dressings) as directed by your health care provider. ??? Monitor your temperature and notify your health care provider of a fever. ??? Take showers instead of baths for 2?3 weeks. ??? Do notdrink alcohol until your health care provider gives you permission. ??? If you develop constipation, you may take a mild laxative with your health care provider's permission. Bran foods may help with constipation problems. Drinking enough fluids to keep your urine clear or pale yellow may help as well. ??? Try to have someone home with you for 1?2 weeks to help around the house. ??? Keep all of your follow-up appointments as directed by your health care provider. Contact a health care provider if: ??? You have swelling, redness, or increasing pain around your incision sites. ??? You have pus coming from your incision. ??? You notice a bad smell coming from your incision. ??? Your incision breaks open. ??? You feel dizzy or lightheaded. ??? You have pain or bleeding when you urinate. ??? You have persistent diarrhea. ??? You have persistent nausea and vomiting. ??? You have abnormal vaginal discharge. ??? You have a rash. ??? You have any type of abnormal reaction or develop an allergy to your medicine. ??? You have poor pain control with your prescribed medicine. Get help right away if: ??? You have a fever. ??? You have severe abdominal pain. ??? You have chest pain. ??? You have shortness of breath. ??? You faint. ??? You have pain, swelling, or redness in your leg. ??? You have heavy vaginal bleeding with blood clots. This information is not intended to replace advice given to you by your health care provider. Make sure you discuss any questions you have with your health care provider. Document Released: 04/18/2012 Document Revised: 10/05/2016 Document Reviewed: 11/13/2013 [employer] Patient Education ? 2017 [employer].. Medication Leaflets: acetaminophen and hydrocodone (a SEET a MIN oh fen and maira MOSES done) Hycet, Lorcet, Leland, Verdrocet, Vicodin, Xodol, Zamicet What is the most important information I should know about acetaminophen and hydrocodone? MISUSE OF OPIOID MEDICINE CAN CAUSE ADDICTION, OVERDOSE, OR . Keep the medication in a place where others cannot get to it. An overdose of acetaminophen can damage your liver or cause . Call your doctor at once if you have pain in your upper stomach, loss of appetite, dark urine, or jaundice (yellowing of your skin or eyes). Taking opioid medicine during may cause life-threatening withdrawal symptoms in the . Fatal side effects can occur if you use opioid medicine with alcohol, or with other drugs that cause drowsiness or slow your breathing. Stop taking this medicine and call your doctor right away if you have skin redness or a rash that spreads and causes blistering and peeling. What is acetaminophen and hydrocodone? Hydrocodone is an opioid pain medication, sometimes called a narcotic. Acetaminophen is a less potent pain reliever that increases the effects of hydrocodone. Acetaminophen and hydrocodone is a combination medicine used to relieve moderate to severe pain. Acetaminophen and hydrocodone may also be used for purposes not listed in this medication guide. What should I discuss with my healthcare provider before taking acetaminophen and hydrocodone? You should not use this medicine if you are allergic to acetaminophen or hydrocodone, or if you have: ? severe asthma or breathing problems; or ?? a blockage in your stomach or intestines. Tell your doctor if you have ever had: ? liver disease; ?? a drug or alcohol addiction; ?? kidney disease; ?? a head injury or seizures; ?? urination problems; or ?? problems with your thyroid, pancreas, or gallbladder. If you use opioid medicine while you are , your baby could become dependent on the drug. This can cause life-threatening withdrawal symptoms in the baby after it is born. Babies born dependent on opioids may need medical treatment for several weeks. Do not breast-feed. This medicine can pass into breast milk and cause drowsiness, breathing problems, or in a nursing baby. How should I take acetaminophen and hydrocodone? Follow all directions on your prescription label. Never take this medicine in larger amounts, or for longer than prescribed. An overdose can damage your liver or cause . Tell your doctor if the medicine seems to stop working as well in relieving your pain. Always check your bottle to make sure you have received the correct pills (same brand and type) of medicine prescribed by your doctor. Never share this medicine with another person, especially someone with a history of drug abuse or addiction. MISUSE CAN CAUSE ADDICTION, OVERDOSE, OR . Keep the medicine in a place where others cannot get to it. Selling or giving away acetaminophen and hydrocodone is against the law. Measure liquid medicine carefully. Use the dosing syringe provided, or use a medicine dose-measuring device (not a kitchen spoon). If you need surgery or medical tests, tell the doctor ahead of time that you are using this medicine. You should not stop using this medicine suddenly. Follow your doctor's instructions about tapering your dose. Store at room temperature away from moisture and heat. Keep track of your medicine. You should be aware if anyone is using it improperly or without a prescription. Do not keep leftover opioid medication. Just one dose can cause in someone using this medicine accidentally or improperly. Ask your pharmacist where to locate a drug take-back disposal program. If there is no take-back program, flush the unused medicine down the toilet. What happens if I miss a dose? Since this medicine is used for pain, you are not likely to miss a dose. Skip any missed dose if it is almost time for your next dose. Do not use two doses at one time. What happens if I overdose? Seek emergency medical attention or call the Poison Help line at . An overdose of acetaminophen and hydrocodone can be fatal. The first signs of an acetaminophen overdose include loss of appetite, nausea, vomiting, stomach pain, sweating, and confusion or weakness. Later symptoms may include pain in your upper stomach, dark urine, and yellowing of your skin or the whites of your eyes. Overdose can also cause severe muscle weakness, pinpoint pupils, very slow breathing, extreme drowsiness, or coma. What should I avoid while taking acetaminophen and hydrocodone? Avoid driving or operating machinery until you know how this medicine will affect you. Dizziness or drowsiness can cause falls, accidents, or severe injuries. Do not drink alcohol. Dangerous side effects or could occur. Ask a doctor or pharmacist before using any other medicine that may contain acetaminophen (sometimes abbreviated as APAP). Taking certain medications together can lead to a fatal overdose. What are the possible side effects of acetaminophen and hydrocodone? Get emergency medical help if you have signs of an allergic reaction: hives; difficulty breathing; swelling of your face, lips, tongue, or throat. Opioid medicine can slow or stop your breathing, and may occur. A person caring for you should seek emergency medical attention if you have slow breathing with long pauses, blue colored lips, or if you are hard to wake up. In rare cases, acetaminophen may cause a severe skin reaction that can be fatal. This could occur even if you have taken acetaminophen in the past and had no reaction. Stop taking this medicine and call your doctor right away if you have skin redness or a rash that spreads and causes blistering and peeling. Call your doctor at once if you have: ? noisy breathing, sighing, shallow breathing; ?? a light-headed feeling, like you might pass out; ?? liver problems--nausea, upper stomach pain, tiredness, loss of appetite, dark urine, devin-colored stools, jaundice (yellowing of the skin or eyes); or ?? low cortisol levels-- nausea, vomiting, loss of appetite, dizziness, worsening tiredness or weakness. Seek medical attention right away if you have symptoms of serotonin syndrome, such as: agitation, hallucinations, fever, sweating, shivering, fast heart rate, muscle stiffness, twitching, loss of coordination, nausea, vomiting, or diarrhea. Serious side effects may be more likely in older adults and those who are overweight, malnourished, or debilitated. Long-term use of opioid medication may affect fertility (ability to have children) in men or women. It is not known whether opioid effects on fertility are permanent. Common side effects include: ? dizziness, drowsiness, feeling tired; ?? nausea, vomiting, stomach pain; ?? constipation; or ?? headache. This is not a complete list of side effects and others may occur. Call your doctor for medical advice about side effects. You may report side effects to FDA at 3-915-VAB-2787. What other drugs will affect acetaminophen and hydrocodone? You may have breathing problems or withdrawal symptoms if you start or stop taking certain other medicines. Tell your doctor if you also use an antibiotic, antifungal medication, heart or blood pressure medication, seizure medication, or medicine to treat HIV or hepatitis C. Opioid medication can interact with many other drugs and cause dangerous side effects or . Be sure your doctor knows if you also use: ? cold or allergy medicines, bronchodilator asthma/COPD medication, or a diuretic ('water pill'); ?? medicines for motion sickness, irritable bowel syndrome, or overactive bladder; ?? other narcotic medications--opioid pain medicine or prescription cough medicine; ?? a sedative like Valium--diazepam, alprazolam, lorazepam, Xanax, Klonopin, Versed, and others; ?? drugs that make you sleepy or slow your breathing--a sleeping pill, muscle relaxer, medicine to treat mood disorders or mental illness; ?? drugs that affect serotonin levels in your body--a stimulant, or medicine for depression, Parkinson's disease, migraine headaches, serious infections, or nausea and vomiting. This list is not complete. Other drugs may affect acetaminophen and hydrocodone, including prescription and negg-ewi-muoaabj medicines, vitamins, and herbal products. Not all possible interactions are listed here. Where can I get more information? Your doctor or pharmacist can provide more information about acetaminophen and hydrocodone. Remember, keep this and all other medicines out of the reach of children, never share your medicines with others, and use this medication only for the indication prescribed. Every effort has been made to ensure that the information provided by [employer]. ('[employer]') is accurate, up-to-date, and complete, but no guarantee is made to that effect. Drug information contained herein may be time sensitive. [employer] information has been compiled for use by healthcare practitioners and consumers in the [place] and therefore [employer] does not warrant that uses outside of the [place] are appropriate, unless specifically indicated otherwise. [employer] drug information does not endorse drugs, diagnose patients or recommend therapy. [employer] drug information is an informational resource designed to assist licensed healthcare practitioners in caring for their patients and/or to serve consumers viewing this service as a supplement to, and not a substitute for, the expertise, skill, knowledge and judgment of healthcare practitioners. The absence of a warning for a given drug or drug combination in no way should be construed to indicate that the drug or drug combination is safe, effective or appropriate for any given patient. [employer] does not assume any responsibility for any aspect of healthcare administered with the aid of information [employer] provides. The information contained herein is not intended to cover all possible uses, directions, precautions, warnings, drug interactions, allergic reactions, or adverse effects. If you have questions about the drugs you are taking, check with your doctor, nurse or pharmacist. Copyright 1811-3139 [employer]. Version: 15.. Revision Date: 03/18/2018. ibuprofen (EYE bue PROE fen) Advil, Genpril, IBU, Midol IB, Motrin IB, Proprinal, Smart Sense Children's Ibuprofen What is the most important information I should know about ibuprofen? Ibuprofen can increase your risk of fatal heart attack or stroke, especially if you use it usp or take high doses, or if you have heart disease. Do not use this medicine just before or after heart bypass surgery (coronary artery bypass graft, or CABG). Ibuprofen may also cause stomach or intestinal bleeding, which can be fatal. These conditions can occur without warning while you are using ibuprofen, especially in older adults. What is ibuprofen? Ibuprofen is a nonsteroidal anti-inflammatory drug (NSAID). Ibuprofen works by reducing hormones that cause inflammation and pain in the body. Ibuprofen is used to reduce fever and treat pain or inflammation caused by many conditions such as headache, toothache, back pain, arthritis, menstrual cramps, or minor injury. This medicine is used in adults and children who are at least 6 months old. Ibuprofen may also be used for purposes not listed in this medication guide. What should I discuss with my healthcare provider before taking ibuprofen? Ibuprofen can increase your risk of fatal heart attack or stroke, especially if you use it usp or take high doses, or if you have heart disease. Even people without heart disease or risk factors could have a stroke or heart attack while taking this medicine. Do not use this medicine just before or after heart bypass surgery (coronary artery bypass graft, or CABG). Ibuprofen may also cause stomach or intestinal bleeding, which can be fatal. These conditions can occur without warning while you are using ibuprofen, especially in older adults. You should not use ibuprofen if you are allergic to it, or if you have ever had an asthma attack or severe allergic reaction after taking aspirin or an NSAID. Ask a doctor or pharmacist if it is safe for you to take this medicine if you have: ? heart disease, high blood pressure, high cholesterol, diabetes, or if you smoke; ?? a history of heart attack, stroke, or blood clot; ?? a history of stomach ulcers or bleeding; ?? asthma; ?? liver or kidney disease; ?? fluid retention; or ?? a connective tissue disease such as Marfan syndrome, Sjogren's syndrome, or lupus. Taking ibuprofen during the last 3 months of may harm the unborn baby. Do not use this medicine without a doctor's advice if you are . It is not known whether ibuprofen passes into breast milk or if it could affect a nursing baby. Ask a doctor before using this medicine if you are breast-feeding. Do not give ibuprofen to a child younger than 2 years old without the advice of a doctor. How should I take ibuprofen? Use exactly as directed on the label, or as prescribed by your doctor. Do not use in larger amounts or for longer than recommended. Use the lowest dose that is effective in treating your condition. Do not take more than your recommended dose. An ibuprofen overdose can damage your stomach or intestines. The maximum amount of ibuprofen for adults is 800 milligrams per dose or 3200 mg per day (4 maximum doses). Use only the smallest amount of ibuprofen needed to get relief from your pain, swelling, or fever. A child's dose of ibuprofen is based on the age and weight of the child. Carefully follow the dosing instructions provided with children's ibuprofen for the age and weight of your child. Ask a doctor or pharmacist if you have questions. Take ibuprofen with food or milk to lessen stomach upset. Shake the oral suspension (liquid) well just before you measure a dose. Measure liquid medicine with the dosing syringe provided, or with a special dose-measuring spoon or medicine cup. If you do not have a dose-measuring device, ask your pharmacist for one. The ibuprofen chewable tablet must be chewed before you swallow it. If you use this medicine long-term, you may need frequent medical tests. Store at room temperature away from moisture and heat. Do not allow the liquid medicine to freeze. Read all patient information, medication guides, and instruction sheets provided to you. Ask your doctor or pharmacist if you have any questions. What happens if I miss a dose? Since ibuprofen is used when needed, you may not be on a dosing schedule. If you are on a schedule, use the missed dose as soon as you remember. Skip the missed dose if it is almost time for your next scheduled dose. Do not use extra medicine to make up the missed dose. What happens if I overdose? Seek emergency medical attention or call the Poison Help line at . Overdose symptoms may include nausea, vomiting, stomach pain, drowsiness, black or bloody stools, coughing up blood, shallow breathing, fainting, or coma. What should I avoid while taking ibuprofen? Avoid drinking alcohol. It may increase your risk of stomach bleeding. Avoid taking aspirin while you are taking ibuprofen. Avoid taking ibuprofen if you are taking aspirin to prevent stroke or heart attack. Ibuprofen can make aspirin less effective in protecting your heart and blood vessels. If you must use both medications, take the ibuprofen at least 8 hours before or 30 minutes after you take the aspirin (non-enteric coated form). Ask a doctor or pharmacist before using any cold, allergy, or pain medicine. Many medicines available over the counter contain aspirin or other medicines similar to ibuprofen. Taking certain products together can cause you to get too much of this type of medication. Check the label to see if a medicine contains aspirin, ibuprofen, ketoprofen, or naproxen. What are the possible side effects of ibuprofen? Get emergency medical help if you have signs of an allergic reaction: sneezing, runny or stuffy nose; wheezing or trouble breathing; hives; swelling of your face, lips, tongue, or throat. Get emergency medical help if you have signs of a heart attack or stroke: chest pain spreading to your jaw or shoulder, sudden numbness or weakness on one side of the body, slurred speech, leg swelling, feeling short of breath. Stop using ibuprofen and call your doctor at once if you have: ? changes in your vision; ?? shortness of breath (even with mild exertion); ?? swelling or rapid weight gain; ?? the first sign of any skin rash, no matter how mild; ?? signs of stomach bleeding--bloody or tarry stools, coughing up blood or vomit that looks like coffee grounds; ?? liver problems--nausea, upper stomach pain, itching, tired feeling, flu-like symptoms, loss of appetite, dark urine, devin-colored stools, jaundice (yellowing of the skin or eyes); ?? kidney problems--little or no urinating, painful or difficult urination, swelling in your feet or ankles, feeling tired or short of breath; ?? low red blood cells (anemia)--pale skin, feeling light-headed or short of breath, rapid heart rate, trouble concentrating; or ?? severe skin reaction--fever, sore throat, swelling in your face or tongue, burning in your eyes, skin pain followed by a red or purple skin rash that spreads (especially in the face or upper body) and causes blistering and peeling. Common side effects may include: ? upset stomach, mild heartburn, nausea, vomiting; ?? bloating, gas, diarrhea, constipation; ?? dizziness, headache, nervousness; ?? mild itching or rash; or ?? ringing in your ears. This is not a complete list of side effects and others may occur. Call your doctor for medical advice about side effects. You may report side effects to FDA at 8-013-QQQ-1088. What other drugs will affect ibuprofen? Ask your doctor before using ibuprofen if you take an antidepressant such as citalopram, escitalopram, fluoxetine (Prozac), fluvoxamine, paroxetine, sertraline (Zoloft), trazodone, or vilazodone. Taking any of these medicines with an NSAID may cause you to bruise or bleed easily. Ask a doctor or pharmacist if it is safe for you to use ibuprofen if you are also using any of the following drugs: ? lithium; ?? methotrexate; ?? a blood thinner (warfarin, Coumadin, Jantoven); ?? heart or blood pressure medication, including a diuretic or 'water pill'; or ?? steroid medicine (such as prednisone). This list is not complete. Other drugs may interact with ibuprofen, including prescription and oohg-qya-kkbvqtv medicines, vitamins, and herbal products. Not all possible interactions are listed in this medication guide. Where can I get more information? Your pharmacist can provide more information about ibuprofen. Remember, keep this and all other medicines out of the reach of children, never share your medicines with others, and use this medication only for the indication prescribed. Every effort has been made to ensure that the information provided by [employer]. ('[employer]') is accurate, up-to-date, and complete, but no guarantee is made to that effect. Drug information contained herein may be time sensitive. [employer] information has been compiled for use by healthcare practitioners and consumers in the [place] and therefore [employer] does not warrant that uses outside of the [place] are appropriate, unless specifically indicated otherwise. [employer] drug information does not endorse drugs, diagnose patients or recommend therapy. [employer] drug information is an informational resource designed to assist licensed healthcare practitioners in caring for their patients and/or to serve consumers viewing this service as a supplement to, and not a substitute for, the expertise, skill, knowledge and judgment of healthcare practitioners. The absence of a warning for a given drug or drug combination in no way should be construed to indicate that the drug or drug combination is safe, effective or appropriate for any given patient. [employer] does not assume any responsibility for any aspect of healthcare administered with the aid of information [employer] provides. The information contained herein is not intended to cover all possible uses, directions, precautions, warnings, drug interactions, allergic reactions, or adverse effects. If you have questions about the drugs you are taking, check with your doctor, nurse or pharmacist. Copyright 3768-7922 [employer]. Version: 18.01. Revision Date: 08/10/2016. promethazine (oral) (pro METH a zeen) Phenergan What is the most important information I should know about promethazine? Promethazine should not be given to a child younger than 2 years old. Promethazine can cause severe breathing problems or in very young children. What is promethazine? Promethazine is in a group of drugs called phenothiazines (TIWW-pd-TPCB-a-zeens). It works by changing the actions of chemicals in your brain. Promethazine also acts as an antihistamine. It blocks the effects of the naturally occurring chemical histamine in your body. Promethazine is used to treat allergy symptoms such as itching, runny nose, sneezing, itchy or watery eyes, hives, and itchy skin rashes. Promethazine also prevents motion sickness, and treats nausea and vomiting or pain after surgery. It is also used as a sedative or sleep aid. Promethazine is not for use in treating symptoms of asthma, pneumonia, or other lower respiratory tract infections. Promethazine may also be used for purposes not listed in this medication guide. What should I discuss with my healthcare provider before taking promethazine? Promethazine should not be given to a child younger than 2 years old. Promethazine can cause severe breathing problems or in very young children. Carefully follow your doctor's instructions when giving this medicine to a child of any age. You should not take this medicine if you are allergic to promethazine or to similar medicines such as chlorpromazine, fluphenazine, mesoridazine, perphenazine, prochlorperazine, thioridazine, or trifluperazine. To make sure promethazine is safe for you, tell your doctor if you have: ? asthma, chronic obstructive pulmonary disease (COPD), sleep apnea, or other breathing disorder; ?? a sulfite allergy; ?? a history of seizures; ?? a weak immune system (bone marrow depression); ?? glaucoma; ?? enlarged prostate or problems with urination; ?? stomach ulcer or obstruction; ?? heart disease or high blood pressure; ?? liver disease; ?? adrenal gland tumor (pheochromocytoma); ?? low levels of calcium in your blood (hypocalcemia); or ?? if you have ever had a serious side effect while using promethazine or any other phenothiazine. It is not known whether promethazine will harm an unborn baby. Tell your doctor if you are or plan to become while using this medicine. It is not known whether promethazine passes into breast milk or if it could harm a nursing baby. You should not breast-feed while using this medicine. How should I take promethazine? Follow all directions on your prescription label. Your doctor may occasionally change your dose to make sure you get the best results. Do not take this medicine in larger or smaller amounts or for longer than recommended. Promethazine is often taken at bedtime or before meals. For motion sickness, promethazine is usually started within 1 hour before traveling. When used for surgery, promethazine is usually taken the night before the surgery. How often you take this medicine and the timing of your dose will depend on the condition being treated. Measure liquid medicine with the dosing syringe provided, or with a special dose-measuring spoon or medicine cup. If you do not have a dose-measuring device, ask your pharmacist for one. If a child is using this medicine, tell your doctor if the child has any changes in weight. Promethazine doses are based on weight in children, and any changes may affect your child's dose. Call your doctor if your symptoms do not improve, or if they get worse while using promethazine. This medicine can cause unusual results with certain medical tests. Tell any doctor who treats you that you are using promethazine. Store at room temperature away from moisture, heat, and light. What happens if I miss a dose? Take the missed dose as soon as you remember. Skip the missed dose if it is almost time for your next scheduled dose. Do not take extra medicine to make up the missed dose. What happens if I overdose? Seek emergency medical attention or call the Poison Help line at . Overdose symptoms may include overactive reflexes, loss of coordination, severe drowsiness or weakness, fainting, dilated pupils, weak or shallow breathing, or seizure (convulsions). What should I avoid while taking promethazine? This medicine may impair your thinking or reactions. Be careful if you drive or do anything that requires you to be alert. Avoid getting up too fast from a sitting or lying position, or you may feel dizzy. Get up slowly and steady yourself to prevent a fall. Drinking alcohol can increase certain side effects of promethazine. Avoid exposure to sunlight or tanning beds. Promethazine can make you sunburn more easily. Wear protective clothing and use sunscreen (SPF 30 or higher) when you are outdoors. What are the possible side effects of promethazine? Get emergency medical help if you have signs of an allergic reaction: hives; difficult breathing; swelling of your face, lips, tongue, or throat. Stop using promethazine and call your doctor at once if you have: ? severe drowsiness, weak or shallow breathing; ?? a light-headed feeling, like you might pass out; ?? confusion, agitation, hallucinations, nightmares; ?? seizure (convulsions); ?? fast or slow heartbeats; ?? jaundice (yellowing of the skin or eyes); ?? uncontrolled muscle movements in your face (chewing, lip smacking, frowning, tongue movement, blinking or eye movement); ?? easy bruising or bleeding (nosebleeds, bleeding gums); ?? sudden weakness or ill feeling, fever, chills, sore throat, mouth sores, red or swollen gums, trouble swallowing; or ?? severe nervous system reaction--very stiff (rigid) muscles, high fever, sweating, confusion, fast or uneven heartbeats, tremors, feeling like you might pass out. Side effects such as confusion and severe drowsiness may be more likely in older adults. Common side effects may include: ? drowsiness, dizziness; ?? ringing in your ears; ?? double vision; ?? feeling nervous; ?? dry mouth; or ?? tired feeling, sleep problems (insomnia). This is not a complete list of side effects and others may occur. Call your doctor for medical advice about side effects. You may report side effects to FDA at 9-041-NZG-5380. What other drugs will affect promethazine? Using this medicine with other drugs that make you sleepy or slow your breathing can cause dangerous or life-threatening side effects. Ask your doctor before taking promethazine with a sleeping pill, narcotic pain medicine, muscle relaxer, or medicine for anxiety, depression, or seizures. Other drugs may interact with promethazine, including prescription and niud-uof-edfbfyr medicines, vitamins, and herbal products. Tell each of your health care providers about all medicines you use now and any medicine you start or stop using. Where can I get more information? Your pharmacist can provide more information about promethazine. Remember, keep this and all other medicines out of the reach of children, never share your medicines with others, and use this medication only for the indication prescribed. Every effort has been made to ensure that the information provided by [employer]. ('[employer]') is accurate, up-to-date, and complete, but no guarantee is made to that effect. Drug information contained herein may be time sensitive. [employer] information has been compiled for use by healthcare practitioners and consumers in the [place] and therefore [employer] does not warrant that uses outside of the [place] are appropriate, unless specifically indicated otherwise. [employer] drug information does not endorse drugs, diagnose patients or recommend therapy. [employer] drug information is an informational resource designed to assist licensed healthcare practitioners in caring for their patients and/or to serve consumers viewing this service as a supplement to, and not a substitute for, the expertise, skill, knowledge and judgment of healthcare practitioners. The absence of a warning for a given drug or drug combination in no way should be construed to indicate that the drug or drug combination is safe, effective or appropriate for any given patient. [employer] does not assume any responsibility for any aspect of healthcare administered with the aid of information [employer] provides. The information contained herein is not intended to cover all possible uses, directions, precautions, warnings, drug interactions, allergic reactions, or adverse effects. If you have questions about the drugs you are taking, check with your doctor, nurse or pharmacist. Copyright 7540-0525 [employer]. Version: 6.02. Revision Date: 02/25/2015. polyethylene glycol 3350 (ladan ee ETH il een GLYE kol) ClearLax, GaviLAX, Gialax, GlycoLax, MiraLax, HNL9305, [employer] ClearLax What is the most important information I should know about polyethylene glycol 3350? You should not use this medicine if you have a bowel obstruction or intestinal blockage. If you have any of these conditions, you could have dangerous or life-threatening side effects from polyethylene glycol 3350. Do not use polyethylene glycol 3350 more than once per day. Call your doctor if you are still constipated or irregular after using this medication for 7 days in a row. What is polyethylene glycol 3350? Polyethylene glycol 3350 is a laxative solution that increases the amount of water in the intestinal tract to stimulate bowel movements. Polyethylene glycol 3350 is used as a laxative to treat occasional constipation or irregular bowel movements. Polyethylene glycol 3350 may also be used for purposes not listed in this medication guide. What should I discuss with my healthcare provider before taking polyethylene glycol 3350? You should not use this medicine if you are allergic to polyethylene glycol, or if you have a bowel obstruction or intestinal blockage. If you have any of these conditions, you could have dangerous or life-threatening side effects from polyethylene glycol 3350. People with eating disorders (such as anorexia or bulimia) should not use this medication without the advice of a doctor. To make sure this medicine is safe for you, tell your doctor if you have: ? nausea, vomiting, or severe stomach pain; ?? ulcerative colitis; ?? irritable bowel syndrome; ?? kidney disease; or ?? if you have had a sudden change in bowel habits that has lasted 2 weeks or longer. FDA category C. It is not known whether polyethylene glycol 3350 will harm an unborn baby. Tell your doctor if you are or plan to become while using this medication. It is not known whether polyethylene glycol 3350 passes into breast milk or if it could harm a nursing baby. Tell your doctor if you are breast-feeding a baby. How should I take polyethylene glycol 3350? Follow all directions on your prescription label. Do not use this medicine in larger or smaller amounts or for longer than recommended. To use the powder form of this medicine, measure your dose with the medicine cap on the bottle. This cap should contain dose lee on the inside of it. Pour the powder into 4 to 8 ounces of a cold or hot beverage such as water, juice, soda, coffee, or tea. Stir this mixture and drink it right away. Do not save for later use. Polyethylene glycol 3350 should produce a bowel movement within 1 to 3 days of using the medication. Polyethylene glycol 3350 normally causes loose or even watery stools. Do not use polyethylene glycol 3350 more than once per day. Call your doctor if you are still constipated or irregular after using this medication for 7 days in a row. Store at room temperature away from moisture and heat. What happens if I miss a dose? Take the missed dose as soon as you remember. Skip the missed dose if it is almost time for your next scheduled dose. Do not take extra medicine to make up the missed dose. What happens if I overdose? Seek emergency medical attention or call the Poison Help line at . What should I avoid while taking polyethylene glycol 3350? Follow your doctor's instructions about any restrictions on food, beverages, or activity. What are the possible side effects of polyethylene glycol 3350? Get emergency medical help if you have signs of an allergic reaction: hives; difficult breathing; swelling of your face, lips, tongue, or throat. Stop taking this medicine and call your doctor at once if you have: ? severe or bloody diarrhea; ?? rectal bleeding; ?? blood in your stools; or ?? severe and worsening stomach pain. Common side effects may include: ? bloating, gas, upset stomach; ?? dizziness; or ?? increased sweating. This is not a complete list of side effects and others may occur. Call your doctor for medical advice about side effects. You may report side effects to FDA at 6-923-LEI-3418. What other drugs will affect polyethylene glycol 3350? Other drugs may interact with polyethylene glycol 3350, including prescription and bzno-scu-pkmikvv medicines, vitamins, and herbal products. Tell each of your health care providers about all medicines you use now and any medicine you start or stop using. Where can I get more information? Your pharmacist can provide more information about polyethylene glycol 3350. Remember, keep this and all other medicines out of the reach of children, never share your medicines with others, and use this medication only for the indication prescribed. Every effort has been made to ensure that the information provided by [employer] ('[employer]') is accurate, up-to-date, and complete, but no guarantee is made to that effect. Drug information contained herein may be time sensitive. [employer] information has been compiled for use by healthcare practitioners and consumers in the [place] and therefore [employer] does not warrant that uses outside of the [place] are appropriate, unless specifically indicated otherwise. [employer] drug information does not endorse drugs, diagnose patients or recommend therapy. [employer] drug information is an informational resource designed to assist licensed healthcare practitioners in caring for their patients and/or to serve consumers viewing this service as a supplement to, and not a substitute for, the expertise, skill, knowledge and judgment of healthcare practitioners. The absence of a warning for a given drug or drug combination in no way should be construed to indicate that the drug or drug combination is safe, effective or appropriate for any given patient. [employer] does not assume any responsibility for any aspect of healthcare administered with the aid of information [employer] provides. The information contained herein is not intended to cover all possible uses, directions, precautions, warnings, drug interactions, allergic reactions, or adverse effects. If you have questions about the drugs you are taking, check with your doctor, nurse or pharmacist. Copyright 6542-1682 [employer] [facility]. Version: 2.04. Revision Date: 08/16/2016. CIGARETTE SMOKING: The facts are clear, cigarette smoking will shorten your life. Smoking can cause many illnesses along the way. As a healthcare provider, we recommend that you stop smoking. Assistance with quitting is available by contacting 4-839-QOLO-NOW. This is a free resource providing counseling, support, and referral. Or you may contact your personal physician. [facility] is an EMERGENCY Every Minute Counts [...] Fibrillation (irregular heartbeat) Family history of stroke Reminder: Be sure to sign up for the [employer] patient portal, which gives you / access to your medical information ??? including these discharge instructions ??? using your computer, smartphone, or tablet. Just go to [employer] to get started. Questions? Call . [facility] would like to thank you for allowing us to assist you with your healthcare needs. RIANA Main SARA RANAE, (or ocean import representative) have received the above patient education materials/instructions and have verbalized understanding: Patient Signature _ Date/Time Patient Consultant [employer] Vice President [employer] (Ex ) Signature (if needed) Date/Time Clinician/Hospital Consultant [employer] Vice President [employer] (Ex ) Signature (if needed) Date/Time documented in this encounter Plan of Treatment Not on file documented as of this encounter Visit Diagnoses Not on filedocumented in this encounter Care Teams Batt Packer Relationship Specialty Start Date End Date Alan Beyer MD [address] [place] [address] PCP - General Family Medicine 06/08/23 documented as of this encounter
--- OUTSIDE RECORDS SUMMARY | 2024-11-05 10:21 | XMS_ITS | Encounter Summary ---
Author Organization [email or web address] [facility] [employer] Address [address] [place] [address] Care Team Providers Care Registration Manager Name Role Phone Alan Beyer MD Primary Care Provider [phone] Encounter Details Date Type Department Care Team (Late st Contact Info) Description 11/06/2019 Transcribed Document [facility] [place] Family Medicine [facility] [place] [address] ProviderJessenia MD [address] [place] [address] Social History Tobacco Use Types [...] Alvarez MD - 11/06/2019 7:42 PM CDT [place] Suicide Severity Rating Scale (C-SSRS) Entered On: 11/06/2019 22:27 EDT Performed On: 11/06/2019 22:25 EDT by Albert Mckeon RN [place] Suicide Severity Rating Scale (C-SSRS) CSSRS Past Month Wish to be : No CSSRS Past Month Suicidal Thoughts : No CSSRS Lifetime Suicide Behavior : No Suicide Severity Rating Score : 0 Suicide Severity Rating : No Additional Care Required at this time Albert Mckeon RN - 11/06/2019 22:25 EDT Electronically signed by Jannette [facility] [employer]ner at 08/31/2022 5:06 PM CDT documented in this encounter Plan of Treatment Not on file documented as of this encounter Visit Diagnoses Not on filedocumented in this encounter Care Teams Registration Manager Relationship Specialty Start Date End Date Alan Beyer MD [address] [place] [phone] PCP - General Family Medicine 06/08/23 documented as of this encounter
--- OUTSIDE RECORDS SUMMARY | 2024-11-05 10:21 | XMS_ITS | Encounter Summary ---
Author Organization [facility] [employer] Address [address] [place] [address] Care Team Providers Care Job Printer Apprentice Name Role Phone Alan Beyer MD Primary Care Provider [phone] Encounter Details Date Type Department Care Team (Late st Contact Info) Description 02/08/2021 Transcribed Document [facility] [place] Family Medicine [facility] [place] [address] ProviderJessenia MD [address] [place] [address] Social History Tobacco Use Types Packs/Day Years Used Date Smoking Tobacco: Never Assessed Comments Unknown Sex and Gender Information Value Date Recorded Sex Assigned at Not on file Legal Sex Female 4:28 PM CDT Gender Identity Not on file Sexual Orientation Not on file documented as of this encounter Miscellaneous Notes * Cerner Conversion Note - Jessenia Alvarez MD - 02/08/2021 10:57 PM CDT [place] [id number] CHARLINE BOND :1980 Visit Time:02/08/2021 Your Visit Summary Your Care Team Primary Provider: GIANCARLO HALEY Secondary Provider: Your Diagnosis Cough Dyspnea URI (upper respiratory infection) Medical Information You may obtain a copy [...] Follow-Up Appointments Follow Up with Return to emergency department When Within As needed Comments Return if condition worsens, if you have chest pain, worsening of shortness of breath, fever, vomiting, dizziness, fainting, etc. Follow-up with primary care physician for further evaluation and management Follow Up with RHIANNA MARTIN When Within 2 to 3 days Where: [address] [place] [address]- Business (1) Allergies Bactrim acetaminophen-oxyCODONE clindamycin Toradol [...] This Visit (last charted value for your 02/08/2021 visit) Hematology 02/08/2021 8:56 PM WBC: 6.9 K/uL -- Normal range between ( 3.9 and 10.0 ) RBC: 3.38 Million/uL -- Normal range between ( 3.93 and 5.22 ) Hct: 35.2 % -- Normal range between ( 34.1 and 44.9 ) Hgb: 11.7 Gram/dL -- Normal range between ( 11.2 and 15.7 ) Platelet Count: 252 K/uL -- Normal range between ( 163 and 369 ) MCH: 34.6 pg -- Normal range between ( 25.6 and 32.2 ) MCHC: 33.2 Gram/dL -- Normal range between ( 32.3 and 36.5 ) MCV: 104.1 fL -- Normal range between ( 79.0 and 94.8 ) Slide Review: No Eos %: 2.9 % -- Normal range between ( 1.0 and 7.0 ) [place] #: 0.33 K/uL -- Normal range between ( 0.24 and 0.82 ) Eos #: 0.20 K/uL -- Normal range between ( 0.04 and 0.54 ) [place] %: 4.8 % -- Normal range between ( 4.7 and 12.5 ) Baso %: 0.3 % -- Normal range between ( 0.0 and 1.0 ) Baso #: 0.02 K/uL -- Normal range between ( 0.01 and 0.08 ) RDW: 12.2 % -- Normal range between ( 11.6 and 14.4 ) Neut %: 44.2 % -- Normal range between ( 34.0 and 71.0 ) Neut #: 3.05 K/uL -- Normal range between ( 1.56 and 6.13 ) Lymph %: 47.5 % -- Normal range between ( 19.3 and 53.0 ) Lymph #: 3.27 K/uL -- Normal range between ( 1.18 and 3.74 ) MPV: 9.6 fL -- Normal range between ( 9.4 and 12.4 ) IG#: 0 x10(3)/uL IG%: 0 % -- Normal range between ( 0 and 1 ) Microbiology 02/08/2021 9:18 PM Influenza A: Not Detected Respiratory Syncytial Virus: Not Detected Influenza B: Not Detected Influenza A H3: Not Detected Parainfluenza 3: Not Detected Influenza A H1: Not Detected Rhinovirus/Enterovirus: Not Detected Human metapneumovirus: Not Detected Parainfluenza 1: Not Detected Parainfluenza 2: Not Detected Adenovirus: Not Detected Parainfluenza 4: Not Detected Bordatella pertussis: Not Detected Coronavirus HKU1: Not Detected Coronavirus NL63: Not Detected Coronavirus OC43: Not Detected Coronavirus 229E: Not Detected Influenza A 2008 H1N1: Not Detected Mycoplasma pneumoniae: Not Detected Chlamydia pneumoniae: Not Detected SARS-CoV-2 (COVID19 PCR): Not Detected Bordatella parapertussis: Not Detected General Chemistry 02/08/2021 8:56 PM Creatinine Level: 0.87 mg/dL -- Normal range between ( 0.55 [...] between ( 27 and 136 ) Bun/Creatinine: 21.8 -- Normal range between ( 8.0 and 20.0 ) Calcium Level: 8.8 mg/dL -- Normal range between ( 8.5 and 10.1 ) eGFR : >60 mL/min/1.73m2 eGFR NonAfrican: >60 mL/min/1.73m2 Glucose Level: 87 mg/dL -- Normal range between ( 74 and 106 ) Blood Urea Nitrogen: 19 mg/dL -- Normal range between ( 7 and 22 ) Protein Total: 7.7 Gram/dL -- Normal range between ( 6.4 and 8.2 ) Albumin Level: 4.1 Gram/dL -- Normal range between ( 3.4 and 5.0 ) Cardiac Specific Markers 02/08/2021 9:57 PM Troponin I Ultra: <0.015 ng/mL -- Normal range between ( 0.015 and 0.045 ) 02/08/2021 8:56 PM ProBNP: 105 pg/mL -- Normal range between ( 0 and 125 ) Computed Tomography 02/08/2021 9:53 PM CTA Chest PE Protocol: CTA Chest PE Protocol Education Materials Viral Respiratory Infection A respiratory infection is an illness that affects part of the respiratory system, such as the lungs, nose, or throat. A respiratory infection that is caused by a virus is called a viral respiratory infection. Common types of viral respiratory infections include: ??? A cold. ??? The flu (influenza). ??? A respiratory syncytial virus (RSV) infection. What are the causes? This condition is caused by a virus. What are the signs or symptoms? Symptoms of this condition include: ??? A stuffy or runny nose. ??? Yellow or green nasal discharge. ??? A cough. ??? Sneezing. ??? Fatigue. ??? Achy muscles. ??? A sore throat. ??? Sweating or chills. ??? A fever. ??? A headache. How is this diagnosed? This condition may be diagnosed based on: ??? Your symptoms. ??? A physical exam. ??? Testing of nasal swabs. How is this treated? This condition may be treated with medicines, such as: ??? Antiviral medicine. This may shorten the length of time a person has symptoms. ??? Expectorants. These make it easier to cough up mucus. ??? Decongestant nasal sprays. ??? Acetaminophen or NSAIDs to relieve fever and pain. Antibiotic medicines are not prescribed for viral infections. This is because antibiotics are designed to kill bacteria. They are not effective against viruses. Follow these instructions at home: Managing pain and congestion ??? Take cenb-woa-liwlpjh and prescription medicines only as told by your health care provider. ??? If you have a sore throat, gargle with a salt-water mixture 3???4 times a day or as needed. To make a salt-water mixture, completely dissolve ?1 tsp of salt in 1 cup of warm water. ??? Use nose drops made from salt water to ease congestion and soften raw skin around your nose. ??? Drink enough fluid to keep your urine pale yellow. This helps prevent dehydration and helps loosen up mucus. General instructions ??? Rest as much as possible. ??? Do not drink alcohol. ??? Do not use any products that contain nicotine or tobacco, such as cigarettes and e-cigarettes. If you need help quitting, ask your health care provider. ??? Keep all follow-up visits as told by your health care provider. This is important. How is this prevented? Get an annual flu shot. You may get the flu shot in late summer, fall, or winter. Ask your health care provider when you should get your flu shot. ??? Avoid exposing others to your respiratory infection. ? Stay home from work or school as told by your health care provider. ? Wash your hands with soap and water often, especially after you cough or sneeze. If soap and water are not available, use alcohol-based hand brand analyst. ??? Avoid contact with people who are sick during cold and flu season. This is generally fall and winter. Contact a health care provider if: ??? Your symptoms last for 10 days or longer. ??? Your symptoms get worse over time. ??? You have a fever. ??? You have severe sinus pain in your face or forehead. ??? The glands in your jaw or neck become very swollen. Get help right away if you: ??? Feel pain or pressure in your chest. ??? Have shortness of breath. ??? Faint or feel like you will faint. ??? Have severe and persistent vomiting. ??? Feel confused or disoriented. Summary ??? A respiratory infection is an illness that affects part of the respiratory system, such as the lungs, nose, or throat. A respiratory infection that is caused by a virus is called a viral respiratory infection. ??? Common types of viral respiratory infections are a cold, influenza, and respiratory syncytial virus (RSV) infection. ??? Symptoms of this condition include a stuffy or runny nose, cough, sneezing, fatigue, achy muscles, sore throat, and fevers or chills. ??? Antibiotic medicines are not prescribed for viral infections. This is because antibiotics are designed to kill bacteria. They are not effective against viruses. This information is not intended to replace advice given to you by your health care provider. Make sure you discuss any questions you have with your health care provider. Document Revised: 05/08/2019 Document Reviewed: 06/10/2018 [employer] Patient Education ?? 2020 [employer] Shortness of Breath, Adult Shortness of breath is when a person has trouble breathing enough air or when a person feels like she or he is having trouble breathing in enough air. Shortness of breath could be a sign of a medical problem. Follow these instructions at home: ??? Pay attention to any changes in your symptoms. ??? Do not use any products that contain nicotine or tobacco, such as cigarettes, e-cigarettes, and chewing tobacco. ??? Do not smoke. Smoking is a common cause of shortness of breath. If you need help quitting, ask your health care provider. ??? Avoid things that can irritate your airways, such as: ? Mold. ? Dust. ? Air pollution. ? Chemical fumes. ? Things that can cause allergy symptoms (allergens), if you have allergies. ??? Keep your living space clean and free of mold and dust. ??? Rest as needed. Slowly return to your usual activities. ??? Take xepy-bwm-gfzujhp and prescription medicines only as told by your health care provider. This includes oxygen therapy and inhaled medicines. ??? Keep all follow-up visits as told by your health care provider. This is important. Contact a health care provider if: ??? Your condition does not improve as soon as expected. ??? You have a hard time doing your normal activities, even after you rest. ??? You have new symptoms. Get help right away if: ??? Your shortness of breath gets worse. ??? You have shortness of breath when you are resting. ??? You feel light-headed or you faint. ??? You have a cough that is not controlled with medicines. ??? You cough up blood. ??? You have pain with breathing. ??? You have pain in your chest, arms, shoulders, or abdomen. ??? You have a fever. ??? You cannot walk up stairs or exercise the way that you normally do. These symptoms may represent a serious problem that is an emergency. Do not wait to see if the symptoms will go away. Get medical help right away. Call your local emergency services (911 in the [place] Do not drive yourself to the hospital. Summary ??? Shortness of breath is when a person has trouble breathing enough air. It can be a sign of a medical problem. ??? Avoid things that irritate your lungs, such as smoking, pollution, mold, and dust. ??? Pay attention to changes in your symptoms and contact your health care provider if you have a hard time completing daily activities because of shortness of breath. This information is not intended to replace advice given to you by your health care provider. Make sure you discuss any questions you have with your health care provider. Document Revised: 09/30/2018 Document Reviewed: 09/30/2018 [employer] Patient Education ?? 2020 [employer] Emergency Awareness and Preventative Care STROKE [...] Assistance with quitting is available by contacting 5-152-HIZUNOW. This is a free resource providing counseling, support, and referral. Or you may contact your personal physician. [place] Suicide Prevention Lifeline: The National Suicide Prevention [...] was given the opportunity to ask questions. Patient/Nougat Cutter Machine Name: Patient/Nougat Cutter Machine Signature: Relationship to Patient: Clinician/Hospital Nougat Cutter Machine Signature: Please Provide a Telephone Number Where You Can Be Reached: Is it Permissible To Leave a Message? Date: Electronically signed by Interface, [facility] Conversion Break Off Worker Cerner at 08/31/2022 4:57 PM CDT documented in this encounter Plan of Treatment Not on file documented as of this encounter Visit Diagnoses Not on filedocumented in this encounter Care Teams Job Printer Apprentice Relationship Specialty Start Date End Date Alan Beyer MD [address] [place] [address] PCP - General Family Medicine 06/08/23 documented as of this encounter
--- OUTSIDE RECORDS SUMMARY | 2024-11-05 10:21 | XMS_ITS | Encounter Summary ---
Author Organization [facility] [employer] Address [address] [place] [address] Care Team Providers Care Director Compensation Name Role Phone Alan Beyer MD Primary Care Provider [phone] Encounter Details Date Type Department Care Team (Late st Contact Info) Description 08/11/2019 Transcribed Document [facility] [place] [facility] [place] [address] ProviderJessenia MD [address] [place], [place] [id number] Social History Tobacco Use Types Packs/Day Years [...] Alvarez MD - 08/11/2019 7:06 AM CDT ED Triage Entered On: 08/11/2019 7:19 EDT Performed On: 08/11/2019 7:16 EDT by Jyoti Cordon, WEIGHER AND CHARGER Triage Across the Room Chief Complaint : Midsternal chest pain, nausea, bilat shoulder pain R>L since 0200. No relief with gas-x, excedrin, or 400mg ibuprofen. Triage Date/Time : 08/11/2019 7:16 EDT Jyoti Cordon RN - 08/11/2019 7:16 EDT DCP GENERIC CODE Tracking Acuity : 2 - Emergent Tracking Group : [facility] Jyoti Cordon RN - 08/11/2019 7:16 EDT Mode of Arrival : Ambulatory Transported to ED by : Walk in To Room Via : Ambulate Accompanied By : Unaccompanied ED Vital Signs : Document Height & Weight : Document ED Allergies : Document ED Reason for Visit : Document ED Triage Treatments : Document Status : Hysterectomy Tetanus Immunization : Unknown Jyoti Cordon RN - 08/11/2019 7:16 EDT Infectious Disease History COVID19 Screening : No Experiencing Infectious Disease Symptoms : No symptoms Physical contact outside [place] in the last 30 days : No Infectious Disease History : Chicken pox/Shingles, Herpes, Influenza, Mononucleosis Tuberculosis Symptoms : None Jyoti Cordon RN - 08/11/2019 7:16 EDT Vital Signs ED Temperature Source : Oral Temperature Mode : Fahrenheit Temperature, Fahrenheit : 98 Deg F ED Pain : Yes Clinical Temperature, C : 36.7 Deg C Oxygen Therapy Mode : Room air Peripheral Pulse Rate : 90 bpm Respiratory Rate : 20 Breaths/Min Systolic Blood Pressure : 145 mmHg (HI) Diastolic Blood Pressure : 87 mmHg Oxygen Saturation : 100 % Jyoti Cordon RN - 08/11/2019 7:16 EDT Allergy (As Of: 08/11/2019 07:19:26 EDT) Allergies (Active) acetaminophen-oxyCODONE Estimated Onset Date: Unspecified ; Comments: Comment 1: throws up and itching ; Created By: Breanna Ivey Rn; Reaction Status: Active ; Category: Drug ; Substance: acetaminophen-oxyCODONE ; Severity: Severe ; Updated By: Breanna Ivey Rn; Source: Patient ; Reviewed Date: 08/11/2019 7:18 EDT baclofen Estimated Onset Date: Unspecified ; Comments: Comment 1: hives and cant breath ; Created By: Breanna Ivey Rn; Reaction Status: Active ; Category: Drug ; Substance: baclofen ; Type: Allergy ; Updated By: Breanna Ivey Rn; Reviewed Date: 08/11/2019 7:18 EDT Bactrim Estimated Onset Date: Unspecified ; Comments: Comment 1: hives not breathing ; Created By: Breanna Ivey Rn; Reaction Status: Active ; Category: Drug ; Substance: Bactrim ; Type: Allergy ; Severity: Severe ; Updated By: Breanna Ivey Rn; Source: Patient ; Reviewed Date: 08/11/2019 7:18 EDT clindamycin Estimated Onset Date: Unspecified ; Comments: Comment 1: Hives, vomiting ; Created By: Talia Eason RN; Reaction Status: Active ; Category: Drug ; Substance: clindamycin ; Type: Allergy ; Severity: Severe ; Updated By: Talia Eason RN; Reviewed Date: 08/11/2019 7:18 EDT doxycycline Estimated Onset Date: Unspecified ; Comments: Comment 1: hives and projectile vomiting ; Created By: Breanna Ivey Rn; Reaction Status: Active ; Category: Drug ; Substance: doxycycline ; Type: Allergy ; Updated By: Breanna Ivey Rn; Reviewed Date: 08/11/2019 7:18 EDT escitalopram Estimated Onset Date: Unspecified ; Comments: Comment 1: unknown ; Created By: Breanna Ivey Rn; Reaction Status: Active ; Category: Drug ; Substance: escitalopram ; Type: Allergy ; Updated By: Breanna Ivey Rn; Reviewed Date: 08/11/2019 7:18 EDT fentaNYL Estimated Onset Date: Unspecified ; Comments: Comment 1: hallucinate and cry ; Created By: Breanna Ivey Rn; Reaction Status: Active ; Category: Drug ; Substance: fentaNYL ; Type: Allergy ; Updated By: Breanna Ivey Rn; Reviewed Date: 08/11/2019 7:18 EDT lidocaine topical 2% gel Estimated Onset Date: Unspecified ; Comments: Comment 1: severe swelling, itching, rash ; Created By: Breanna Ivey Rn; Reaction Status: Active ; Category: Drug ; Substance: lidocaine topical 2% gel ; Type: Allergy ; Updated By: Breanna Ivey Rn; Reviewed Date: 08/11/2019 7:18 EDT meperidine Estimated Onset Date: Unspecified ; Comments: Comment 1: hallucinations and angry ; Created By: Breanna Ivey Rn; Reaction Status: Active ; Category: Drug ; Substance: meperidine ; Type: Allergy ; Updated By: Breanna Ivey Rn; Reviewed Date: 08/11/2019 7:18 EDT morphine Estimated Onset Date: Unspecified ; Comments: Comment 1: severe itching ; Created By: Breanna Ivey Rn; Reaction Status: Active ; Category: Drug ; Substance: morphine ; Type: Allergy ; Updated By: Breanna Ivey Rn; Reviewed Date: 08/11/2019 7:18 EDT penicillin Estimated Onset Date: Unspecified ; Reactions: Hives ; Comments: Comment 1: hives Comment 2: Pt has tolerated cefoxitin in 06/30, 06/01, and trying cefazolin 05/01 ; Created By: JAME ZUNIGA PharmD; Reaction Status: Active ; Category: Drug ; Substance: penicillin ; Type: Allergy ; Updated By: JAME ZUNIGA PharmD; Reviewed Date: 08/11/2019 7:18 EDT tetanus immune globulin Estimated Onset Date: Unspecified ; Comments: Comment 1: adverse reaction I get tetanus and my body will swell up ; Created By: Breanna Ivey Rn; Reaction Status: Active ; Category: Drug ; Substance: tetanus immune globulin ; Type: Allergy ; Updated By: Breanna Ivey Rn; Reviewed Date: 08/11/2019 7:18 EDT Toradol Estimated Onset Date: Unspecified ; Comments: Comment 1: feels like a softball in chest and my chest goes numb ; Created By: Breanna Ivey Rn; Reaction Status: Active ; Category: Drug ; Substance: Toradol ; Type: Allergy ; Updated By: Breanna Ivey Rn; Reviewed Date: 08/11/2019 7:18 EDT Diagnosis Control ED (As Of: 08/11/2019 07:19:26 EDT) Problems(Active) Anxiety (SNOMED CT :67305885 ) Name of Problem: Anxiety ; Recorder: ERICKA ISSA RN; Confirmation: Confirmed ; Classification: Medical ; Code: [id number] ; Contributor System: [employer] ; Last Updated: 07/26/2015 22:28 EDT ; Life Cycle Date: 07/26/2015 ; Life Cycle Status: Active ; Vocabulary: SNOMED CT Endometriosis, vagina (SNOMED CT :16239024 ) Name of Problem: Endometriosis, vagina ; Recorder: Breanna Ivey RN; Confirmation: Confirmed ; Classification: Medical ; Code: [id number] ; Contributor System: [employer] ; Last Updated: 05/24/2018 10:54 EST ; Life Cycle Date: 05/24/2018 ; Life Cycle Status: Active ; Vocabulary: SNOMED CT Kidney stones (SNOMED CT :320352511 ) Name of Problem: Kidney stones ; Recorder: KAYY ANDREW; Confirmation: Confirmed ; Classification: Medical ; Code: [id number] ; Contributor System: [employer] ; Last Updated: 06/06/2016 9:30 EST ; Life Cycle Date: 06/06/2016 ; Life Cycle Status: Active ; Vocabulary: SNOMED CT Migraine (SNOMED CT :37580991 ) Name of Problem: Migraine ; Recorder: ERICKA ISSA RN; Confirmation: Confirmed ; Classification: Medical ; Code: [id number] ; Contributor System: [employer] ; Last Updated: 07/26/2015 22:28 EDT ; Life Cycle Date: 07/26/2015 ; Life Cycle Status: Active ; Vocabulary: SNOMED CT Shoulder pain, left (SNOMED CT :84569949 ) Name of Problem: Shoulder pain, left ; Recorder: Breanna Ivey RN; Confirmation: Confirmed ; Classification: Medical ; Code: [id number] ; Contributor System: [employer] ; Last Updated: 05/24/2018 10:53 EST ; Life Cycle Date: 05/24/2018 ; Life Cycle Status: Active ; Vocabulary: SNOMED CT Diagnoses(Active) Chest pain Date: 08/11/2019 ; Diagnosis Type: Reason For Visit ; Confirmation: Complaint of ; Clinical Dx: Chest pain ; Classification: Medical ; Clinical Service: Emergency medicine ; Code: PNED ; Probability: 0 ; Diagnosis Code: [id number] ED Height and Weight Height Source : Stated Height Entry Format : [place] Height, Feet : 5 ft(Converted to: 152 cm, 60 Inch) Height, Inches : 5 Inch(Converted to: 0 ft 5 Inch, 12.70 cm) Clinical Height : 165.1 cm Weight Source, ED : Standing scale Weight Entry Format : [place] Weight, Pounds : 171.3 lb Clinical Dosing Weight : 77.86 kg Body Surface Area (BSA) : 1.85 m2 Body Mass Index : 28.6 kg/m2 (HI) [place] Body Weight (IBW) : 56.59 kg Jyoti Cordon RN - 08/11/2019 7:16 EDT Pain Assessment Pain Assessment : Initial assessment Pain Scale Used : 0-10 Scale Jyoti Cordon RN - 08/11/2019 7:16 EDT Pain Scale Intensity : 6 Jyoti Cordon RN - 08/11/2019 7:16 EDT Image 4 - Images currently included in the form version of this document have not been included in the text rendition version of the form. Triage Initial Exam and Interventions, ED Level of Consciousness : Alert, Awake Affect/Behavior : Calm, Cooperative Orientation : Oriented x 4 Skin Temperature : Warm Triage Interventions : EKG Jyoti Cordon RN - 08/11/2019 7:16 EDT ED Influenza/Pneumoccocal Vaccine Influenza Immunization, Current Season : Yes Previous Vaccines from Immunization Schedule : No qualifying data available. Jyoti Cordon RN - 08/11/2019 7:16 EDT Electronically signed by Jannette, [facility] Conversion Adobe Cq Developer Cerner at 08/31/2022 5:14 PM CDT documented in this encounter Plan of Treatment Not on file documented as of this encounter Visit Diagnoses Not on filedocumented in this encounter Care Teams Director Compensation Relationship Specialty Start Date End Date Alan Beyer MD [address] [place] [address] PCP - General Family Medicine 06/08/23 documented as of this encounter
--- OUTSIDE RECORDS SUMMARY | 2024-11-05 10:21 | XMS_ITS | Encounter Summary ---
Author Organization [employer] Address [address] [place] [address] Care Team Providers Care Copy Chief Name Role Phone Alan Beyer MD Primary Care Provider [phone] Encounter Details Date Type Department Care Team (Late st Contact Info) Description 11/07/[address] [facility] [place] Medicine [facility] [place] [address] ProviderJessenia MD [address] [place] [address] [id number] Social History Tobacco Use Types Packs/Day Years Used Date Smoking Tobacco: Never Assessed Comments Unknown Sex and Gender Information Value Date Recorded Sex Assigned at Not on file Legal Sex Female 4:28 PM CDT Gender Identity Not on file Sexual Orientation Not on file documented as of this encounter Miscellaneous Notes * Cerner Conversion Note - Jessenia Alvarez MD - 11/07/2019 12:35 AM CDT Patient: CHARLINE BOND Age: 39 years Sex: Female : 1980 Associated Diagnoses: Acute UTI; Nausea; Vomiting; Bilateral flank pain Author: GROVER MEZA MD-EMR Basic Information Additional information: Chief Complaint from Nursing Triage Note : Chief Complaint 11/06/2019 20:06 EDT Chief Complaint c/o left flank pain started this morning; states she has hx of kidney stones; +blood in the urine. +nausea/vomiting . History of Present Illness The patient presents with nausea and vomiting. The course/duration of symptoms is fluctuating in intensity. The character of symptoms is clear. There are exacerbating factors including eating and drinking. The relieving factor is none. The patient presents with flank pain, bilateral flank pain L > R, today sudden and I have kidney stones . The patient presents with hematuria. The onset was just prior to arrival. Review of Systems Constitutional symptoms: No fever, no chills. Skin symptoms: No rash, Eye symptoms: Negative except as documented in HPI. ENMT symptoms: Negative except as documented in HPI. Respiratory symptoms: No shortness of breath, Cardiovascular symptoms: No chest pain, Gastrointestinal symptoms: Right flank, left flank. Genitourinary symptoms: Dysuria, hematuria. Musculoskeletal symptoms: Back pain. Neurologic symptoms: No headache, no dizziness. Psychiatric symptoms: Negative except as documented in [...] as documented in chart. Genitourinary: renal stone. See Problem list below. I have reviewed it.. Surgical history: Clavicle ([id number]). Tympanostomy ([id number]). Adenoids ([id number]). shoulder surgery. Gallbladder absent ([id number]). Tubal ligation (526173047). Hysterectomy ([id number])., Reviewed as documented in chart. Family history: [...] 19 , Reviewed as documented in chart. Physical Examination Vital Signs Vital Signs/Vital Measures 11/06/2019 20:06 EDT Blood Pressure Location Arm, right upper Blood Pressure Source Non-Invasive BP Device Systolic Blood Pressure 147 mmHg HI Diastolic Blood Pressure 94 mmHg HI Temperature Source Oral Temperature Mode Fahrenheit Temperature, Fahrenheit 97.4 Deg F Clinical Temperature, C 36.3 Deg C Peripheral Pulse Rate 94 bpm Respiratory Rate 18 Breaths/Min Oxygen Saturation 100 % Oxygen Therapy Mode Room air . Measurements 11/06/2019 20:06 EDT Height Source Measured Height Entry Format [place] Height/Length, [place] (ft) 5 ft Height/Length [place] 5 Inch CLINICALHEIGHT 165.1 cm [place] Body Weight 56.59 kg Weight Source, ED Standing scale Weight Entry Format [place] Weight Mong[place]ian lb 170 lb CLINICALWEIGHT 77.27 kg Body Surface Area (BSA) 1.85 m2 Body Mass Index 28.3 kg/m2 HI . Oxygen Saturation 11/06/2019 20:06 EDT Oxygen Saturation 100 % . General: Alert, mild distress. Skin: Warm, dry, no rash. Head: Normocephalic, atraumatic. Neck: Supple. Eye: Pupils are equal, round and reactive to light, extraocular movements are intact, normal conjunctiva. Ears, nose, mouth and throat: Oral mucosa moist. Cardiovascular: Regular rate and rhythm. Respiratory: Lungs are clear to auscultation, respirations are non-labored, breath sounds are equal, Symmetrical chest wall expansion. Gastrointestinal: Soft, Tenderness: Mild, right flank, Tenderness: Moderate, left flank, Guarding: Negative, Rebound: Negative, Bowel sounds: Normal. Back: Nontender, Normal range of motion. Musculoskeletal: Normal ROM, normal strength. Neurological: Alert and oriented to person, place, time, and situation, No focal neurological deficit observed. Psychiatric: Cooperative. Medical Decision Making Differential Diagnosis: Abdominal pain, renal stone. Differential Diagnosis: Cystitis. Differential Diagnosis: Nausea, vomiting. Results review: Lab results : Lab Results 11/06/2019 21:57 EDT Sodium Level 141 mmol/L Potassium Level 3.5 mmol/L Chloride Level 107 mmol/L Carbon Dioxide Level 25 mmol/L Anion Gap 12 Glucose Level 84 mg/dL Blood Urea Nitrogen 13 mg/dL Creatinine Level 0.82 mg/dL eGFR >60 mL/min/1.73m2 eGFR NonAfrican >60 mL/min/1.73m2 Bun/Creatinine 15.9 Calcium Level 9.2 mg/dL Protein Total 8.3 Gram/dL HI Albumin Level 4.2 Gram/dL Globulin 4.1 Gram/dL A/G Ratio 1.0 LOW Bilirubin Total 0.4 mg/dL Alk Phos 95 Units/Liter AST 25 Units/Liter ALT 21 Units/Liter Magnesium Level 2.0 mg/dL WBC 9.0 K/uL RBC 3.56 Million/uL LOW Hgb 12.7 Gram/dL Hct 37.5 % MCV 105.3 fL HI MCH 35.7 pg HI MCHC 33.9 Gram/dL Platelet Count 249 K/uL MPV 9.8 fL RDW 12.1 % Neut % 54.2 % Neut # 4.85 K/uL Lymph % 38.8 % Lymph # 3.48 K/uL [place] % 5.5 % [place] # 0.49 K/uL Eos % 1.1 % Eos # 0.10 K/uL Baso % 0.2 % Baso # 0.02 K/uL Slide Review No IG# 0 x10(3)/uL IG% 0 % 11/06/2019 20:14 EDT Urine Type U CleanCatch Urine Color Red Urine Appearance Cloudy Urine Specific [place] 1.019 Urine pH Dipstick 5.5 LOW Urine Leukocyte Esterase Small Urine Nitrite Negative Urine Protein Dipstick 30 Urine Glucose Dipstick Negative Urine Ketones Dipstick Trace Urine Urobilinogen Dipstick 1.0 EU/dL Urine Bilirubin Dipstick Negative Urine Blood Dipstick Large Ur RBC TNTC /HPF Ur WBC 2-5 /HPF Ur Bacteria 1+ Ur Squamous Epithelial Cells 2-5 /HPF HCG Urine Qualitative Negative . Radiology results: Radiology Results (Last 48 hours) [id number] -- 11/06/2019 19:42 CT Abdomen Pelvis WO (11/06/2019 23:26) Result: CT OF THE ABDOMEN AND PELVIS WITHOUT CONTRASTHISTORY: Flank pain.PROCEDURE: Routine axial images were obtained from the lung bases tothe pubic symphysis. No contrast was given. This study was performedwith techniques to keep radiation doses as low as reasonably achievable,(ALARA). Individualized dose reduction techniques using automatedexposure control or adjustment of mA and/or kV according to the patientsize were employed.COMPARISON: 02/02/2019FINDINGS: Abdomen: The gallbladder has been removed. The solid abdominal organsand ureters are within normal limits. The GI tract is unremarkable,including the appendix.Pelvis: The uterus and left ovary are absent. The right ovary andurinary bladder are normal. There is no pelvic or abdominal ascites,adenopathy, or acute osseous abnormality.IMPRESSION: Unremarkable. . Impression and Plan Diagnosis Acute UTI - Discharge, Emergency medicine, Medical Complaint of Nausea - Reason For Visit, Emergency medicine, Medical Complaint of Vomiting - Reason For Visit, Emergency medicine, Medical Acute UTI - Discharge, Emergency medicine, Medical Bilateral flank pain - Discharge, Emergency medicine, Medical Plan Condition: Improved. 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 Prescriptions: Prescription Forming Operator Pharmacy: Ceftin 250 mg oral tablet (Prescribe): 1 Tab, Oral, BID, for 5 Day(s), 10 Tab, 0 Refill(s) meclizine 25 mg oral tablet, chewable (Prescribe): 1-2 Tab, Chew, TID, for 10 Day(s), PRN: for nausea/vomiting, 30 Tab, 0 Refill(s) [place] 7.5 mg-325 mg oral tablet (Prescribe): 1 Tab, Oral, Q6H, for 3 Day(s), addictive, no driving, constipating, PRN: for pain, 12 Tab, 0 Refill(s). Patient was given the following educational materials: Dysuria, Urinary Tract Infection, Adult. Follow up with: ANSLEY GUADALUPE Within 2 to 3 days; Follow up with specialist Within 2 to 3 days; MARIA ESTHER CORREA Within [address] Correa in the morning for a follow up appointment Return for fever, or problems You urine culture is pending. Counseled: Patient, Regarding diagnosis, Regarding diagnostic results, Regarding treatment plan, Regarding prescription, Patient indicated understanding of instructions. documented in this encounter Plan of Treatment Not on file documented as of this encounter Visit Diagnoses Not on filedocumented in this encounter Care Teams Copy Chief Relationship Specialty Start Date End Date Alan Beyer MD [address] [phone] PCP - General Family Medicine 06/08/23 documented as of this encounter
--- OUTSIDE RECORDS SUMMARY | 2024-11-05 10:21 | XMS_ITS | Encounter Summary ---
Author Organization [employer] Address [address] [place] [address] Care Team Providers Care Childcare Worker Name Role Phone Alan Beyer MD Primary Care Provider [phone] Encounter Details Date Type Department Care Team (Late st Contact Info) Description 02/02/2019 Transcribed Document [facility] [place] [address] ProviderJessenia MD [address] [place] [id number] Social History Tobacco Use Types Packs/Day Years Used Date Smoking Tobacco: Never Assessed Comments Unknown Sex and Gender Information Value Date Recorded Sex Assigned at Not on file Legal Sex Female 4:28 PM CDT Gender Identity Not on file Sexual Orientation Not on file documented as of this encounter Miscellaneous Notes * Cerner Conversion Note - Jessenia Alvarez MD - 02/02/2019 11:17 AM CDT ED Triage Entered On: 02/02/2019 11:26 EDT Performed On: 02/02/2019 11:23 EDT by PASCUAL HANKINS ED Triage Across the Room Triage Date/Time : 02/02/2019 11:23 EDT Chief Complaint : C/o RLQ pain and nausea since this am. LBM last night PASCUAL Harrington - 02/02/2019 11:23 EDT DCP GENERIC CODE Tracking Acuity : 3 - Urgent Tracking Group : [facility] PASCUAL HANKINS - 02/02/2019 11:23 EDT Mode of Arrival : Ambulatory Transported to ED by : Private vehicle To Room Via : Ambulate Accompanied By : Unaccompanied ED Vital Signs : Document Height & Weight : Document ED Allergies : Document ED Reason for Visit : Document Tetanus Immunization : Unknown PASCUAL HANKINS 02/02/2019 11:23 EDT Infectious Disease History Infectious Disease History : Chicken pox/Shingles, Herpes Fever/Chills Last 48 Hours : No Travel To [place] with Travel Advisories : No Travel Outside [place] Within Last 30 Days : No Contact With Traveler to Advisory Region : No Tuberculosis Symptoms : None PASCUAL HANKINS 02/02/2019 11:23 EDT Vital Signs ED Temperature Source : Tympanic Temperature Mode : Fahrenheit Temperature, Fahrenheit : 97.8 Deg F Clinical Temperature, C : 36.6 Deg C Peripheral Pulse Rate : 97 bpm Respiratory Rate : 18 Breaths/Min Systolic Blood Pressure : 121 mmHg Diastolic Blood Pressure : 74 mmHg Oxygen Saturation : 99 % PASCUAL HANKINS 02/02/2019 11:23 EDT Allergy (As Of: 02/02/2019 11:26:01 EDT) Allergies (Active) acetaminophen-oxyCODONE Estimated Onset Date: Unspecified ; Comments: Comment 1: throws up and itching ; Created By: Breanna Ivey Rn; Reaction Status: Active ; Category: Drug ; Substance: acetaminophen-oxyCODONE ; Severity: Severe ; Updated By: Breanna Ivey Rn; Source: Patient ; Reviewed Date: 01/06/2019 11:36 EDT baclofen Estimated Onset Date: Unspecified ; Comments: Comment 1: hives and cant breath ; Created By: Breanna Ivey Rn; Reaction Status: Active ; Category: Drug ; Substance: baclofen ; Type: Allergy ; Updated By: Breanna Ivey Rn; Reviewed Date: 01/06/2019 11:36 EDT Bactrim Estimated Onset Date: Unspecified ; Comments: Comment 1: hives not breathing ; Created By: Breanna Ivey Rn; Reaction Status: Active ; Category: Drug ; Substance: Bactrim ; Type: Allergy ; Severity: Severe ; Updated By: Breanna Ivey Rn; Source: Patient ; Reviewed Date: 01/06/2019 11:36 EDT clindamycin Estimated Onset Date: Unspecified ; Created By: Isi Khoury Rn; Reaction Status: Active ; Category: Drug ; Substance: clindamycin ; Type: Allergy ; Severity: Severe ; Updated By: Isi Khoury Rn; Reviewed Date: 01/06/2019 11:36 EDT doxycycline Estimated Onset Date: Unspecified ; Comments: Comment 1: hives and projectile vomiting ; Created By: Breanna Ivey Rn; Reaction Status: Active ; Category: Drug ; Substance: doxycycline ; Type: Allergy ; Updated By: Breanna Ivey Rn; Reviewed Date: 01/06/2019 11:36 EDT escitalopram Estimated Onset Date: Unspecified ; Comments: Comment 1: unknown ; Created By: Breanna Ivey Rn; Reaction Status: Active ; Category: Drug ; Substance: escitalopram ; Type: Allergy ; Updated By: Breanna Ivey Rn; Reviewed Date: 01/06/2019 11:36 EDT fentaNYL Estimated Onset Date: Unspecified ; Comments: Comment 1: hallucinate and cry ; Created By: Breanna Ivey Rn; Reaction Status: Active ; Category: Drug ; Substance: fentaNYL ; Type: Allergy ; Updated By: Breanna Ivey Rn; Reviewed Date: 01/06/2019 11:36 EDT lidocaine topical 2% gel Estimated Onset Date: Unspecified ; Comments: Comment 1: severe swelling, itching, rash ; Created By: Breanna Ivey Rn; Reaction Status: Active ; Category: Drug ; Substance: lidocaine topical 2% gel ; Type: Allergy ; Updated By: Breanna Ivey Rn; Reviewed Date: 01/06/2019 11:36 EDT meperidine Estimated Onset Date: Unspecified ; Comments: Comment 1: hallucinations and angry ; Created By: Breanna Ivey Rn; Reaction Status: Active ; Category: Drug ; Substance: meperidine ; Type: Allergy ; Updated By: Breanna Ivey Rn; Reviewed Date: 01/06/2019 11:36 EDT morphine Estimated Onset Date: Unspecified ; Comments: Comment 1: severe itching ; Created By: Breanna Ivey Rn; Reaction Status: Active ; Category: Drug ; Substance: morphine ; Type: Allergy ; Updated By: Breanna Ivey Rn; Reviewed Date: 01/06/2019 11:36 EDT penicillin Estimated Onset Date: Unspecified ; Comments: Comment 1: hives ; Created By: Breanna Ivey Rn; Reaction Status: Active ; Category: Drug ; Substance: penicillin ; Type: Allergy ; Updated By: Breanna Ivey Rn; Reviewed Date: 01/06/2019 11:36 EDT tetanus immune globulin Estimated Onset Date: Unspecified ; Comments: Comment 1: adverse reaction I get tetanus and my body will swell up ; Created By: Breanna Ivey Rn; Reaction Status: Active ; Category: Drug ; Substance: tetanus immune globulin ; Type: Allergy ; Updated By: Breanna Ivey Rn; Reviewed Date: 01/06/2019 11:36 EDT Toradol Estimated Onset Date: Unspecified ; Comments: Comment 1: feels like a softball in chest and my chest goes numb ; Created By: Breanna Ivey Rn; Reaction Status: Active ; Category: Drug ; Substance: Toradol ; Type: Allergy ; Updated By: Breanna Ivey Rn; Reviewed Date: 01/06/2019 11:36 EDT Diagnosis Control ED (As Of: 02/02/2019 11:26:01 EDT) Problems(Active) Anxiety (SNOMED CT :14650122 ) Name of Problem: Anxiety ; Recorder: ERICKA ISSA RN; Confirmation: Confirmed ; Classification: Medical ; Code: [id number] ; Contributor System: PowerChart ; Last Updated: 07/26/2015 22:28 EDT ; Life Cycle Date: 07/26/2015 ; Life Cycle Status: Active ; Vocabulary: SNOMED CT Endometriosis, vagina (SNOMED CT :25037544 ) Name of Problem: Endometriosis, vagina ; Recorder: Breanna Ivey Rn; Confirmation: Confirmed ; Classification: Medical ; Code: [id number] ; Contributor System: PowerChart ; Last Updated: 05/24/2018 10:54 EST ; Life Cycle Date: 05/24/2018 ; Life Cycle Status: Active ; Vocabulary: SNOMED CT Kidney stones (SNOMED CT :990359932 ) Name of Problem: Kidney stones ; Recorder: KAYY ANDREW; Confirmation: Confirmed ; Classification: Medical ; Code: [id number] ; Contributor System: PowerChart ; Last Updated: 06/06/2016 9:30 EST ; Life Cycle Date: 06/06/2016 ; Life Cycle Status: Active ; Vocabulary: SNOMED CT Migraine (SNOMED CT :61011470 ) Name of Problem: Migraine ; Recorder: ERICKA ISSA RN; Confirmation: Confirmed ; Classification: Medical ; Code: [id number] ; Contributor System: PowerChart ; Last Updated: 07/26/2015 22:28 EDT ; Life Cycle Date: 07/26/2015 ; Life Cycle Status: Active ; Vocabulary: SNOMED CT Shoulder pain, left (SNOMED CT :19742451 ) Name of Problem: Shoulder pain, left ; Recorder: Breanna Ivey Rn; Confirmation: Confirmed ; Classification: Medical ; Code: [id number] ; Contributor System: PowerChart ; Last Updated: 05/24/2018 10:53 EST ; Life Cycle Date: 05/24/2018 ; Life Cycle Status: Active ; Vocabulary: SNOMED CT Diagnoses(Active) Abdominal pain Date: 02/02/2019 ; Diagnosis Type: Reason For Visit ; Confirmation: Complaint of ; Clinical Dx: Abdominal pain ; Classification: Medical ; Clinical Service: Emergency medicine ; Code: PNED ; Probability: 0 ; Diagnosis Code: [id number] ED Height and Weight Height Source : Stated Height Entry Format : [place] Height, Feet : 5 ft(Converted to: 152 cm, 60 Inch) Height, Inches : 5 Inch(Converted to: 0 ft 5 Inch, 12.70 cm) Clinical Height : 165.1 cm Weight Source, ED : Critical estimated dosing weight Weight Entry Format : [place] Weight, Pounds : 160 lb Clinical Dosing Weight : 72.73 kg Body Surface Area (BSA) : 1.8 m2 Body Mass Index : 26.7 kg/m2 (HI) [place] Body Weight (IBW) : 56.59 kg PASCUAL HANKINS 02/02/2019 11:23 EDT documented in this encounter Plan of Treatment Not on file documented as of this encounter Visit Diagnoses Not on filedocumented in this encounter Care Teams Childcare Worker Relationship Specialty Start Date End Date Alan Beyer MD [address] [place] [address] PCP - General Family Medicine 06/08/23 documented as of this encounter
--- OUTSIDE RECORDS SUMMARY | 2024-11-05 10:21 | XMS_ITS | Encounter Summary ---
Author Organization [employer] Address [address] [place] [address] Care Team Providers Care Email Campaign Specialist Name Role Phone Alan Beyer MD Primary Care Provider [phone] Encounter Details Date Type Department Care Team (Late st Contact Info) Description 04/09/2019 Transcribed Document [facility] [place] [facility] [place] [address] ProviderJessenia MD [address] [place] [address] Social History Tobacco Use Types Packs/Day Years Used Date Smoking Tobacco: Never Assessed Comments Unknown Sex and Gender Information Value Date Recorded Sex Assigned at Not on file Legal Sex Female 4:28 PM CDT Gender Identity Not on file Sexual Orientation Not on file documented as of this encounter Miscellaneous Notes * Cerner Conversion Note - Jessenia Alvarez MD - 04/09/2019 3:17 PM 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 [place] [id number] CHARLINE BOND :1980 Visit Time:04/09/2019 What to do next Your Diagnosis Other tear of medial meniscus, current injury, right knee, subsequent encounter, Other tear of medial meniscus, current injury, right knee, subsequent encounter, Other tear of medial meniscus, current injury, right knee, subsequent encounter Instructions From Your Care Team Diet after Discharge: Resume usual diet as tolerated Activity after Discharge: As tolerated, Rest and relax today, No strenuous activity Weight Bearing: weight bearing as tolerated with crutches and full active range of motion and passive range of motion with quad sets for strengthening Driving after Discharge: Do not drive until 24 hours after no longer taking pain medications and until released by MD Showering/Bathing: May shower in 3 days; do not get surgical site wet. Notify Provider of: fever 101 or higher or chills; uncontrollable nausea and vomiting; uncontrollable pain; increased redness, drainage, pain, or swelling at the incision sites; or any other symptom that concerns you Wound/Incision Care after Discharge: Keep operative site/wound site clean and dry- may remove dressing in 3 days and shower and cover with bandaids. Medical Equipment for Home Use: Crutches and polar care (use polar care as instructed by MD); use incentive spirometer 10 times every hour while awake for the first month post op. Prescription given for Ultram 50mg take one-two tablets by mouth every 4-6 hours as needed for pain (may take next dose after 7:15pm). Discharge Follow Up Instructions: F/U in office in 7 to 10 days or call office Follow-Up Appointments Follow Up with JESUS EDWARDS JR, JR, MD-ORT When 04/23/2019 09:30 AM EST Comments Appointment has been made Where: [address] [facility] [address] [place] [address]- Medications What How Much When Instructions Next Dose conjugated estrogens (Premarin) Vaginal Weekly cream fexofenadine (Karine) Oral Every Day ibuprofen 400 Milligram(s) Oral Every 8 Hours as needed for as needed for pain methocarbamol (Robaxin-750 oral tablet) 1 Tablet(s) Oral Every Day valACYclovir (Valtrex) 500 Milligram(s) Oral Every Day fever blister Take your medications faithfully. Do NOT skip [...] of unused and medications per pharmacy guidance. Education Materials Incentive Spirometer An incentive spirometer is a [...] the column. 6. Hold your breath for 3???5 seconds or for as long as possible. [...] repeat this at least 10 times, every 1???2 hours when you are awake. Take your [...] 09/10/2007 Document Revised: 01/22/2017 Document Reviewed: 12/07/2014 [employer] Patient Education ?? 2018 [employer] Crutch Use, Adult Crutches are used [...] support your weight with) your hurt leg (non???weight-bearing). Or, your doctor may let you put [...] 10/16/2008 Document Revised: 12/12/2017 Document Reviewed: 10/20/2016 [employer] Patient Education ?? 2019 [employer] General Anesthesia, Adult, Care After This sheet [...] activities are safe for you. ??? Take bnvw-mzp-zuegnsa and prescription medicines only as told by [...] 08/06/2001 Document Revised: 12/14/2017 Document Reviewed: 12/14/2017 [employer] Patient Education ?? 2019 [employer] Knee Arthroscopy, Care After Refer to [...] and adhesive strips. Follow your health care provider???s instructions about: ? Incision care. ? Bandage [...] activities are safe for you. ??? Perform wutla-bz-kkxmyu exercises only as directed by your health [...] 20 minutes, 2???3 times per day. ??? Raise the injured [...] 11/17/2005 Document Revised: 09/29/2016 Document Reviewed: 04/26/2015 [employer] Patient Education ?? 2018 [employer] tramadol (TRAM a dol) Karthikp, Ultram, Ultram ER What is the most important information I should know about tramadol? MISUSE OF THIS MEDICINE CAN CAUSE ADDICTION, OVERDOSE, OR . Keep the medication in a place where others cannot get to it. Tramadol should not be given to a child younger than 12 years old. Ultram ER should not be given to anyone younger than 18 years old. Taking tramadol during may cause life-threatening withdrawal symptoms in the . Fatal side effects can occur if you use tramadol with alcohol, or with other drugs that cause drowsiness or slow your breathing. What is tramadol? Tramadol is an pain medicine similar to an opioid (sometimes called, a narcotic). Tramadol is used to treat moderate to severe pain. The extended-release form of this medicine is for ybgixi-bnl-iuddw treatment of pain. This form of tramadol is not for use on an as-needed basis for pain. Tramadol may also be used for purposes not listed in this medication guide. What should I discuss with my healthcare provider before taking tramadol? You should not take tramadol if you are allergic to it, or if you have: ?? severe asthma or breathing problems; ?? a blockage in your stomach or intestines; ?? if you have recently used alcohol, sedatives, tranquilizers, or narcotic medications; or ?? if you have used an MAO inhibitor in the past 14 days (such as isocarboxazid, linezolid, methylene blue injection, phenelzine, rasagiline, selegiline, or tranylcypromine). Tramadol should not be given to a child younger than 12 years old. Ultram ER should not be given to anyone younger than 18 years old. Do not give tramadol to anyone younger than 18 years old who recently had surgery to remove the tonsils or adenoids. Seizures have occurred in some people taking tramadol. Talk with your doctor about your seizure risk, which may be higher if you have ever had: ?? a head injury, epilepsy or other seizure disorder; ?? drug or alcohol addiction; or ?? a metabolic disorder. Tell your doctor if you have ever had: ?? breathing problems, sleep apnea; ?? liver or kidney disease; ?? urination problems; ?? problems with your gallbladder, pancreas, or thyroid; ?? a stomach disorder; or ?? mental illness, or suicide attempt. If you use tramadol while you are , your baby could become dependent on the drug. This can cause life-threatening withdrawal symptoms in the baby after it is born. Babies born dependent on habit-forming medicine may need medical treatment for several weeks. Do not breast-feed. Tramadol can pass into breast milk and cause drowsiness, breathing problems, or in a nursing baby. How should I take tramadol? Follow the directions on your prescription label and read all medication guides. Never use tramadol in larger amounts, or for longer than prescribed. Tell your doctor if you feel an increased urge to take more of this medicine. Never share this medicine with another person, especially someone with a history of drug abuse or addiction. MISUSE CAN CAUSE ADDICTION, OVERDOSE, OR . Keep the medicine in a place where others cannot get to it. Selling or giving away tramadol is against the law. Stop taking all other sysriu-rvs-uazas narcotic pain medications when you start taking tramadol. Tramadol can be taken with or without food, but take it the same way each time. Swallow the capsule or tablet whole to avoid exposure to a potentially fatal overdose. Do not crush, chew, break, open, or dissolve. Never crush or break a tramadol pill to inhale the powder or mix it into a liquid to inject the drug into your vein. This practice has resulted in . Do not stop using tramadol suddenly, or you could have unpleasant withdrawal symptoms. Ask your doctor how to safely stop using tramadol. Store at room temperature away from moisture [...] program. If there is no take-back program, mix the leftover medicine with cat litter or coffee grounds in a sealed plastic bag throw the bag in the trash. What happens if I miss a dose? Since tramadol is used for pain, you are not likely to miss a dose. Skip any missed dose if it is almost time for your next dose. Do not use two doses at one time. What happens if I overdose? Seek emergency medical attention or call the Poison Help line at . A tramadol overdose can be fatal, especially in a child or other person using the medicine without a prescription. Overdose symptoms may include slow heart rate, severe drowsiness, cold and clammy skin, very slow breathing, or coma. What should I avoid while taking tramadol? Do not drink alcohol. Dangerous side effects or could occur. Avoid driving or hazardous activity until you know how this medicine will affect you. Dizziness or drowsiness can cause falls, accidents, or severe injuries. What are the possible side effects of tramadol? Get emergency medical help if you have signs of an allergic reaction (hives, difficult breathing, swelling in your face or throat) or a severe skin reaction (fever, sore throat, burning in your eyes, skin pain, red or purple skin rash that spreads and causes blistering and peeling). This medicine can slow or stop your breathing, and may occur. A person caring for you should seek emergency medical attention if you have slow breathing with long pauses, blue colored lips, or if you are hard to wake up. Call your doctor at once if you have: ?? noisy breathing, sighing, shallow breathing, breathing that stops during sleep; ?? a slow heart rate or weak pulse; ?? a light-headed feeling, like you might pass out; ?? seizure (convulsions); or ?? low cortisol levels--nausea, vomiting, loss of appetite, dizziness, worsening tiredness [...] on fertility are permanent. Common side effects may include: ?? constipation, nausea, vomiting, stomach pain; ?? dizziness, drowsiness, tiredness; ?? headache; or ?? itching. This is not a complete list of side effects and others may occur. Call your doctor for medical advice about side effects. You may report side effects to FDA at 4-954-IMC-1440. What other drugs will affect tramadol? You may have breathing problems or withdrawal [...] your doctor knows if you also use: ?? cold or allergy medicines, bronchodilator asthma/COPD medication, [...] to treat mood disorders or mental illness; or ?? drugs that affect serotonin levels in your body--a stimulant, or medicine for depression, Parkinson's disease, migraine headaches, serious infections, or nausea and vomiting. This list is not complete and many other drugs may affect tramadol. This includes prescription and ipsw-tww-oajmtyv medicines, vitamins, and herbal products. Not all possible drug interactions are listed here. Where can I get more information? Your doctor or pharmacist can provide more information about tramadol. Remember, keep this and all other medicines out of the reach of children, never share your medicines with others, and use this medication only for the indication prescribed. Every effort has been made to ensure that the information provided by [employer] is accurate, up-to-date, and complete, but no guarantee is made to that effect. Drug information contained herein may be time sensitive. [employer] information has been compiled for use by healthcare practitioners and consumers in the [place] and therefore [employer] does not warrant that uses outside of the [place] are appropriate, unless specifically indicated otherwise. [employer]'s drug information does not endorse drugs, diagnose patients or recommend therapy. [employer] drug information is an informational resource designed [...] effective or appropriate for any given patient. [facility] does not assume any responsibility for any aspect of healthcare administered with the aid of information [facility] provides. The information contained herein is not intended to cover all possible uses, directions, precautions, warnings, drug interactions, allergic reactions, or adverse effects. If you have questions about the drugs you are taking, check with your doctor, nurse or pharmacist. Copyright 2299-1395 [facility]. Version: 20.02. Revision Date: 02/24/2019. Emergency Awareness and Preventative Care STROKE is [...] Assistance with quitting is available by contacting 4-175-CZDN-NOW. This is a free resource providing counseling, [...] This Visit (last charted value for your 04/09/2019 visit) No Laboratory or Other Results This Visit Patient Name:CHARLINE BOND I have received this information and was given the opportunity to ask questions. Patient/Tip Stitcher Name: Patient/Tip Stitcher Signature: Relationship to Patient: Clinician/Hospital Tip Stitcher Signature: Date: documented in this encounter Plan of Treatment Not on file documented as of this encounter Visit Diagnoses Not on filedocumented in this encounter Care Teams Email Campaign Specialist Relationship Specialty Start Date End Date Alan Beyer MD [address] [place] [address] PCP - General Family Medicine 06/08/23 documented as of this encounter
--- OUTSIDE RECORDS SUMMARY | 2024-11-05 10:21 | XMS_ITS | Encounter Summary ---
Author Organization Healthcare Address [address] [place] [address] Care Team Providers Care Powder Guard Name Role Phone Sage Zeng MD Primary Care Provider [phone] Encounter Details Date Type Department Care Team (Late Contact Info) Description 05/23/2022 Community [facility] [address] [place] [address] Angelia Schaefer APRN [address] [place] [id number] Panic attacks (Primary Dx) Social History Tobacco Use Types Packs/Day Years Used Date Smoking Tobacco: Never Assessed Comments Unknown Sex and Gender Information Value Date Recorded Sex Assigned at Not on file Legal Sex Female 6:42 PM EDT Gender Identity Not on file Sexual Orientation Not on file documented as of this encounter Plan of Treatment Upcoming Encounters Date Type Department Care Team (Late Contact Info) Description 12/03/2024 9:00 AM EDT Office Visit [facility] [address] [place] [address] Xavier Escobedo DDS [address] [phone] documented as of this encounter Visit Diagnoses Diagnosis Panic attacks- Primary Panic disorder without agoraphobia documented in this encounter Care Teams Powder Guard Relationship Specialty Start Date End Date Sage Zeng MD [address] [place] [address] PCP - General 09/24/20 documented as of this encounter
--- OUTSIDE RECORDS SUMMARY | 2024-11-05 10:21 | XMS_ITS | Encounter Summary ---
Author Organization [employer] Address [address] [place] [address] Care Team Providers Care Calenderer Name Role Phone Alan Beyer MD Primary Care Provider [phone] Encounter Details Date Type Department Care Team (Late st Contact Info) Description 04/09/2019 Transcribed Document [facility] [place] [facility] [place] [address] ProviderJessenia MD [address] [place], [place] [id number] Social History Tobacco Use Types Packs/Day Years Used Date Smoking Tobacco: Never Assessed Comments Unknown Sex and Gender Information Value Date Recorded Sex Assigned at Not on file Legal Sex Female 4:28 PM CDT Gender Identity Not on file Sexual Orientation Not on file documented as of this encounter Miscellaneous Notes * Cerner Conversion Note - Jessenia Alvarez MD - 04/09/2019 1: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 Name: CHARLINE BONDAE /Sex: 1980 Female Med Rec #: [id number] Physician: JESUS EDWARDS JR, JR, MD-ORT Financial #: [id number] Pt. Type: O Room/Bed: Admit/Disch: 04/09/19 09:13:00 - Institution: [facility] OR PACU Case Times Entry 1 In PACU I 04/09/19 13:52:00 Ready for PACU 04/09/19 14:30:00 Discharge Discharge from PACU 04/09/19 14:30:00 I Last Modified By: Charline Medina RN 04/09/19 14:43:49 Finalized By: Charline Medina RN Document Signatures Signed By: Charline Medina RN 04/09/19 14:44 Electronically signed by Jannette [employer] Hand Candy Molder Cerner at 08/31/2022 5:13 PM CDT documented in this encounter Plan of Treatment Not on file documented as of this encounter Visit Diagnoses Not on filedocumented in this encounter Care Teams Calenderer Relationship Specialty Start Date End Date Alan Beyer MD [address] [place] [address] PCP - General Family Medicine 06/08/23 documented as of this encounter
--- OUTSIDE RECORDS SUMMARY | 2024-11-05 10:21 | XMS_ITS | Encounter Summary ---
Author Organization [employer] Address [address] [place] [address] Care Team Providers Care Tanyard Worker Name Role Phone Alan Beyer MD Primary Care Provider [phone] Encounter Details Date Type Department Care Team (Late st Contact Info) Description 11/06/2019 Transcribed Document [facility] [place] [facility] [place] [address] ProviderJessenia MD [address] [place] [address] Social History Tobacco Use Types [...] MD - 11/06/2019 7:42 PM CDT ED Assessment Entered On: 11/06/2019 22:27 EDT Performed On: 11/06/2019 22:25 EDT by Albert Mckeon RN ED Quick Look Assessment Level of Consciousness : Alert, Awake Affect/Behavior : Appropriate, Calm, Cooperative Orientation : Oriented x 4 Skin Temperature : Warm Skin Description : Normal for ethnicity Albert Mckeon RN - 11/06/2019 22:25 EDT ED General-Functional Assess Information Obtained From : Patient Preferred Communication Mode : Verbal Communication Barrier : None Primary Language : Martiniquais Any Spiritual/Cultural Needs or Requests : No Currently in Unsafe Situation : No Albert Mckeon RN - 11/06/2019 22:25 EDT Social Habits Smoking Status : 10 or more cigarettes (1/2 pack or more)/day in last 30 days Smokeless Tobacco Status : Never Desires Tobacco Cessation Medication : No Reason for No Tobacco Cessation Medication : Refuses FDA approved medications Desires Tobacco Cessation Calc : 1 Albert Mckeon RN - 11/06/2019 22:25 EDT Social History (As Of: 11/06/2019 22:27:52 EDT) Tobacco: 10 or more cigarettes (1/2 [...] (Last Updated: 07/26/2015 22:29:17 EDT by ERICKA ISAS RN) Drug Use Hx: No. Use in Last 12 Months: No. (Last Updated: 05/24/2018 10:39:04 EST by Breanna Ivey, ELVER) Nutrition/Health: Regular (Last Updated: 05/24/2018 10:39:04 EST by Breanna Ivey RN) Genitourinary Assessment, ED Genitourinary Assessment WDL : WDL with exceptions (Comment: pt co left side flank pain that she states is related to kidney stones. States that this pain started today, and then later in the day she started peeing blood. States that she has been having burning when she pees [Albert Mckeon RN - 11/06/2019 22:25 EDT] ) Albert Mckeon RN - 11/06/2019 22:25 EDT documented in this encounter Plan of Treatment Not on file documented as of this encounter Visit Diagnoses Not on filedocumented in this encounter Care Teams Tanyard Worker Relationship Specialty Start Date End Date Alan Beyer MD [address] [place] [address] PCP - General Family Medicine 06/08/23 documented as of this encounter
--- OUTSIDE RECORDS SUMMARY | 2024-11-05 10:21 | XMS_ITS | Encounter Summary ---
Author Organization [employer] Address [address] [place] [address] Care Team Providers Care Case Liner Name Role Phone Alan Beyer MD Primary Care Provider [phone] Encounter Details Date Type Department Care Team (Late st Contact Info) Description 04/09/2019 Transcribed Document [facility] [place] [facility] [address] ProviderJessenia MD [address], [place] [id number] Social History Tobacco Use Types Packs/Day Years Used Date Smoking Tobacco: Never Assessed Comments Unknown Sex and Gender Information Value Date Recorded Sex Assigned at Not on file Legal Sex Female 4:28 PM CDT Gender Identity Not on file Sexual Orientation Not on file documented as of this encounter Miscellaneous Notes * Cerner Conversion Note - Jessenia Alvarez MD - 04/09/2019 1:35 PM SHIFT NURSE MANAGER [facility] Main OR IntraOp Summary Primary Physician: JESUS EDWARDS JR, JR, MD-ORT Finalized Date/Time: 04/09/19 13:56:37 Pt. Name: REFUGIO BOND /Sex: 1980 Female Med Rec #: [id number] Physician: JESUS EDWARDS JR, JR, MD-ORT Financial #: [id number] Pt. Type: O Room/Bed: [facility] Admit/Disch: 04/09/19 09:13:00 - Institution: [facility] [place] IntraOp Case Attendance Entry 1 Entry 2 Entry 3 Case Attendee JERRY MONTOYA, JESUS MONTOYA, MEGA BROOKS CRNA LONGSWORTH, GARY, ELVER NUNEZ-ORT Role Performed Surgeon/Proceduralist, ESTATE ATTORNEY/Nurse Fancy Stitcher Precision Lens Grinder Apprentice, First First Time In 04/09/19 13:25:00 04/09/19 13:25:00 04/09/19 13:25:00 Time Out 04/09/19 13:50:00 04/09/19 13:52:00 04/09/19 13:52:00 Procedure Knee Arthroscopy Knee Arthroscopy Knee Arthroscopy Other Attendee Superficial Wound Closed By: Last Modified By: REID RENNER, REID JOSE, REID JOSE RN 04/09/19 13:51:20 04/09/19 13:52:46 04/09/19 13:52:46 Entry 4 Entry 5 Entry 6 Case Attendee Yandy Cardenas, Elver Cali, CALEB Hallman RN Role Performed Precision Lens Grinder Apprentice, Second Scrub, First Assistive Personnel Time In 04/09/19 13:25:00 04/09/19 13:25:00 04/09/19 13:25:00 Time Out 04/09/19 13:52:00 04/09/19 13:52:00 04/09/19 13:52:00 Procedure Knee Arthroscopy Knee Arthroscopy Knee Arthroscopy Other Attendee Superficial Wound Closed By: Last Modified By: REID RENNER, REID JOSE, REID JOSE RN 04/09/19 13:52:46 04/09/19 13:52:46 04/09/19 13:52:46 Entry 7 Case Attendee OTHER, ATTENDEE #1 Role Performed Vendor Time In 04/09/19 13:30:00 Time Out 04/09/19 13:46:00 Procedure Knee Arthroscopy Other Attendee CAMILLA JOHNSON Superficial Wound Closed By: Last Modified By: REID RENNER RN 04/09/19 13:39:03 [facility] IntraOp Case Attendance Audit 04/09/19 13:52:46 Human Resources Officer: LONGGA Modifier: LONGGA 1 <*> Procedure Knee Arthroscopy 2 <+> Time Out 2 <*> Procedure Knee Arthroscopy 3 <+> Time Out 3 <*> Procedure Knee Arthroscopy 4 <+> Time Out 4 <*> Procedure Knee Arthroscopy 5 <+> Time Out 5 <*> Procedure Knee Arthroscopy 6 <+> Time Out 6 <*> Procedure Knee Arthroscopy 7 <*> Procedure Knee Arthroscopy 04/09/19 13:51:20 Human Resources Officer: ETHANGA Modifier: LONGGA 1 <+> Time Out 1 <*> Procedure Knee Arthroscopy 04/09/19 13:47:13 Human Resources Officer: LONGGA Modifier: LONGGA 7 <+> Time Out 7 <*> Procedure Knee Arthroscopy 04/09/19 13:44:22 Human Resources Officer: LONGGA Modifier: LONGGA <+> 1 Procedure 2 <*> Procedure Knee Arthroscopy 3 <*> Procedure Knee Arthroscopy 4 <*> Procedure Knee Arthroscopy 5 <*> Procedure Knee Arthroscopy 6 <*> Procedure Knee Arthroscopy 7 <*> Procedure Knee Arthroscopy 04/09/19 13:39:03 Human Resources Officer: LONGGA Modifier: LONGGA <+> 1 Time In 2 <+> Time In 2 <*> Procedure Knee Arthroscopy 3 <+> Time In 3 <*> Procedure Knee Arthroscopy 4 <+> Time In 4 <*> Procedure Knee Arthroscopy 5 <+> Time In 5 <*> Procedure Knee Arthroscopy <+> 6 Case Attendee <+> 6 Role Performed <+> 6 Time In <+> 6 Procedure <+> 7 Case Attendee <+> 7 Role Performed <+> 7 Time In <+> 7 Procedure <+> 7 Other Attendee 04/09/19 13:07:34 Human Resources Officer: KHOA Modifier: LONGGA <+> 2 Case Attendee <+> 2 Role Performed <+> 2 Procedure <+> 3 Case Attendee <+> 3 Role Performed <+> 3 Procedure <+> 4 Case Attendee <+> 4 Role Performed <+> 4 Procedure <+> 5 Case Attendee <+> 5 Role Performed <+> 5 Procedure [facility] IntraOp Case Times Entry 1 Patient In Room Time 04/09/19 13:25:00 Out Room Time 04/09/19 13:52:00 Anesthesia Start Time 04/09/19 13:25:00 Stop Time 04/09/19 13:52:00 Anesthesia Ready 04/09/19 13:25:00 Surgery / Procedure Times Start Time 04/09/19 13:35:00 Stop Time 04/09/19 13:45:00 Last Modified By: REID RENNER RN 04/09/19 13:37:44 [facility] IntraOp Case Times Audit 04/09/19 13:52:26 Human Resources Officer: LONGGA Modifier: LONGGA <+> 1 Out Room Time <+> 1 Stop Time 04/09/19 13:46:17 Human Resources Officer: LONGGA Modifier: LONGGA <+> 1 Stop Time [facility] IntraOp Communication Entry 1 Communication To Family/Significant other Comment PROCEDURE START Communication By Yandy Cardenas Rn Date and Time 04/09/19 13:38:00 Last Modified By: REID RENNER RN 04/09/19 13:39:27 [facility] IntraOp Counts Verification Entry 1 Procedure Knee Arthroscopy Count Info Count Type Sponge, Sharps Counts Verification Baseline/pre-procedure Sequence Count Results Correct, surgeon notified Counts Performed By Count Performed By Denzel Cali (Scrub) Count Performed By REID RENNER RN (RN) Last Modified By: REID RENNER RN 04/09/19 13:07:48 [facility] IntraOp Counts Final Entry 1 Procedure Knee Arthroscopy Final Count Info Count Type Sponge, Sharps, Miscellaneous Counts Verification Skin Closure/end of Sequence procedure Count Results Correct, surgeon notified Counts Performed By Count Performed By Denzel Cali (Scrub) Count Performed By Yandy Cardenas Rn (RN) Last Modified By: REID RENNER RN 04/09/19 13:51:39 [facility] IntraOp Departure from OR Entry 1 Integumentary Assessment Integumentary WDL Assessment WDL Transfer/Handoff Transfer to PACU Phase I Handoff Method Bedside/Face to face Post-op Transport Stretcher/Gurney Via Patient Transport MEGA BROOKS, Accompanied by JUD VILLA GARY, ELVER, MEGA BROOKS CRNA Last Modified By: REID RENNER RN 04/09/19 13:53:05 [facility] IntraOp Dressing and Packing Entry 1 Type Dressing Location RIGHT KNEE Wound Dressing Item 4x4's, Xeroform, Gwyn, Webril Supplemental Cold pack Applications Applied By CALEB PRATT RN Last Modified By: REID RENNER RN 04/09/19 13:52:14 [facility] IntraOp Dressing and Packing Audit 04/09/19 13:52:14 Human Resources Officer: LONGGA Modifier: LONGGA 1 <*> Applied By Denzel Cali <+> Supplemental Applications [facility] IntraOp Fire Risk Assessment Entry 1 Fire Info Surgical Site or 0- No Incision Above the Xyphoid Open O2 Source 0- No (Mask or Cannula) Available Ignition 1- Yes (ESU, Laser, Light Source) Fire Risk 1 Assessment Score Fire Score Fire Risk Yes Assessment Complete Fire Risk REID RENNER RN Assessment Verified By Fire Risk 04/09/19 13:04:00 Assessment Verified Date/Time Fire Risk High Risk Protocol Yes Implemented Standard Fire Yes Safety Precautions Followed Last Modified By: REID RENNER RN 04/09/19 13:04:23 [facility] IntraOp Fire Risk Assessment Audit 04/09/19 13:07:56 Human Resources Officer: LONGGA Modifier: LONGGA <+> 1 Fire Risk Assessment Verified By <+> 1 High Risk Protocol Implemented [facility] IntraOp General Case Acid Operator 1 Case Information OR OR 02 [facility] Case Level 1 Room Verified Yes Wound Class I - Clean Specialty SN Orthopedic Anesthesia Type General ASA Class 2 Diagnosis Preop Diagnosis MEDIAL MENISACL TEAR, RIGHT KNEE Postop Same As Preop No Postop Diagnosis DICTATED BY Carolynn Last Modified By: REID RENNER RN 04/09/19 13:40:22 [facility] IntraOp General Case Data Audit 04/09/19 13:40:22 Human Resources Officer: LONGGA Modifier: LONGGA <+> 1 ASA Class 04/09/19 13:08:30 Human Resources Officer: LONGGA Modifier: LONGGA <+> 1 Anesthesia Type <+> 1 Postop Same As Preop <+> 1 Preop Diagnosis <+> 1 Postop Diagnosis <+> 1 Room Verified [facility] IntraOp Intraoperative Assessment Entry 1 Valid History / Yes Physical in Chart Preoperative Yes Checklist Reviewed/Evaluated Allergies Reviewed Yes Patient is Latex No Sensitive Level of WDL Consciousness (WDL = Alert, Oriented to Person, Place, and Time) Skin Assessment Yes Verified Present Upon IVs Arrival to OR Last Modified By: REID RENNER RN 04/09/19 13:40:38 [facility] IntraOp Intraoperative Equipment Entry 1 Type Equipment Equipment Equipment Michelle Suction System ID Number [id number] Intraop Monitoring Antiembolic Devices Antiembolic Devices Foot pumps Antiembolic Device Bilateral Location Antiembolic Device [id number] ID Number Scopes Photo/Video Documentation Last Modified By: REID RENNER RN 04/09/19 13:41:37 [facility] IntraOp Medication Admin Entry 1 Medication/Irrigant Marcaine 0.25% 10ml vial - [id number] Route of LOCAL Administration Dose Volume 30 Administered By JESUS EDWARDS JR, JR, MD-ORT Procedure Irrigation Last Modified By: REID RENNER RN 04/09/19 13:41:47 [facility] IntraOp Patient Positioning Entry 1 Procedure Knee Arthroscopy Body Position Supine Left Arm Position Secured on padded arm board Right Arm Position Secured on padded arm board Left Leg Position Uncrossed, parallel Right Leg Position Secured in Leg Perez Feet Uncrossed Yes Pressure Points Yes Checked Positioning Devices Safety Strap, Chest, Arm Board, Positioning Device, Hip Positioned By REID RENNER RN, MEGA BROOKS CRNA, JESUS EDWARDS JR, JR, MD-ORT Position Verified Positioning Yes Verified by Anesthesia Positioning Yes Verified by Surgeon Last Modified By: REID RENNER RN 04/09/19 13:43:07 [facility] IntraOp Sign In Entry 1 Patient, Site, Yes Procedure Identified Surgical Consent Yes Confirmed Relevant Surgical Yes Documents Available Surgical Site Yes Marked by person performing procedure Anesthesia Machine Yes Check Completed Medication Checks Yes Completed Allergies Yes Airway Difficult No Airway/Aspiration Risk Difficult Yes Airway/Aspiration Intervention Equipment Available Blood Loss Risk Yes Blood Loss Yes Intervention Equipment Prepared and Ready Blood Identifiers Not applicable Verified Per Policy Hypothermia Risk No Warming Measures Yes Taken Last Modified By: REID RENNER RN 04/09/19 13:43:41 [facility] Intra Op Sign Out Entry 1 RN Confirmation Surgical Yes Procedure(s) Identified Instrument, Sponge Yes and Sharps Counts Correct/Documented Equipment Problems N/A Documented Specimen Labeled N/A Correctly Urinary Catheter N/A Documented in IView Vale Patient Yes Recovery Concerns Reviewed with Anesthesia Provider, Surgeon and RN Vale Patient Yes Management Concerns Reviewed with Anesthesia Provider, Surgeon and RN Safety Checklist Yes Elements Complete? RN Sign Out Yandy Cardenas, Elver Signature RN Sign Out 04/09/19 13:52:00 Signature Date/Time Plan of Care Outcome - [...] of Care Outcome - Xray/Images OUTCOME STATEMENT: Goal met Absence of observable signs or symptoms of radiation injury Plan of Care Outcome - Counts OUTCOME STATEMENT: Goal met Absence of signs and symptoms of injury related to extraneous objects Last Modified By: REID RENNER RN 04/09/19 13:43:44 [facility] Intra Op Sign Out Audit 04/09/19 13:52:44 Human Resources Officer: KHOA Modifier: LONGGA 1 <*> RN Sign Out Signature REID RENNER RN 1 <+> RN Sign Out Signature Date/Time [facility] IntraOp Skin Prep Entry 1 Procedure Knee Arthroscopy Intraop Prep Prep Agents Chloraprep Prep by Yandy Cardenas Rn Hair Removal Methods No hair removal performed Last Modified By: REID RENNER RN 04/09/19 13:44:09 [facility] IntraOp Surgical Procedures Entry 1 Procedure Knee Arthroscopy Additional RIGHT KNEE ARTHROSCOPY Procedure WITH PARTIAL MEDIAL Description MENISCECTOMY Primary Procedure Yes Primary Surgeon JESUS EDWARDS JR, JR, MD-ORT Start 04/09/19 13:35:00 Stop 04/09/19 13:45:00 Anesthesia Type General Specialty SN Orthopedic Wound Class I - Clean Last Modified By: REID RENNER RN 04/09/19 13:44:21 [facility] IntraOp Surgical Procedures Audit 04/09/19 13:51:40 Human Resources Officer: KHOA Modifier: LONGGA <+> 1 Stop [facility] IntraOp Temp Regulation Devices Entry 1 Temp Regulation Temperature Warm blankets Regulation Device Last Modified By: REID RENNER RN 04/09/19 13:44:37 [facility] IntraOp Time Out Entry 1 Procedure to be Knee Arthroscopy Performed Time Out Time Out Pause Time 04/09/19 13:31:00 All activity Yes suspended (unless life threatening [...] present, Performed in location of procedure after prepped/draped Antibiotic Yes Prophylaxis Administered Or In Progress Within the Last 60 Minutes Beta Tuan N/A Administered Venous Yes Thromboembolism Prophylaxis Required Anticipated Critical Events Surgeon None expected Anesthesia Provider None expected Nursing Assures Sterility of instruments Essential Imaging N/A Labeled and Displayed Last Modified By: REID RENNER RN 04/09/19 13:45:12 [facility] IntraOp Tourniquet Entry 1 Type Pneumatic Serial/Unit Number [id number] Setting 300 mmHg Pheumatic Yes Tourniquet Checked Per Protocol Size 34 inches Placement Thigh, right upper Skin Protection - Yes Padded Under Cuff Applied By CALEB PRATT RN Removed By Sharp, Denzel Times Start Time 04/09/19 13:35:00 Stop Time 04/09/19 13:43:00 Last Modified By: REID RENNER RN 04/09/19 13:46:04 Case Comments <None> Finalized By: REID RENNER RN Document Signatures Signed By: REID RENNER RN 04/09/19 13:56 Electronically signed by Jannette [facility] Conversion Compliance Specialist Cerner at 08/31/2022 4:58 PM CDT documented in this encounter Plan of Treatment Not on file documented as of this encounter Visit Diagnoses Not on filedocumented in this encounter Care Teams Case Liner Relationship Specialty Start Date End Date Alan Beyer MD [address] [place] [address] PCP - General Family Medicine 06/08/23 documented as of this encounter
--- OUTSIDE RECORDS SUMMARY | 2024-11-05 10:21 | XMS_ITS | Encounter Summary ---
Author Organization [employer] [facility] [employer] Address [address] [place] [address] Care Team Providers Care Neonatal Intensive Care Nurse Name Role Phone Alan Beyer MD Primary Care Provider [phone] Encounter Details Date Type Department Care Team (Late st Contact Info) Description 08/11/2019 Transcribed Document [facility] [place] [address] ProviderJessenia MD [address] [place] [id number] Social History Tobacco Use Types Packs/Day Years Used Date Smoking Tobacco: Never Assessed Comments Unknown Sex and Gender Information Value Date Recorded Sex Assigned at Not on file Legal Sex Female 4:28 PM CDT Gender Identity Not on file Sexual Orientation Not on file documented as of this encounter Miscellaneous Notes * Cerner Conversion Note - Jessenia Alvarez MD - 08/11/2019 7:35 AM CDT Patient: CHARLINE BOND Age: 38 years Sex: Female : 1980 Associated Diagnoses: Nonspecific chest pain; Elevated blood pressure reading Author: JAVI TRUJILLO MD Basic Information Time seen: Date & time 08/11/2019 07:36:00, Voice recognition / vacation guide technology used for some documentation in this [...] from Nursing Triage Note : Chief Complaint 08/11/2019 7:16 EDT Chief Complaint Midsternal chest pain, nausea, bilat shoulder pain R>L since 0200. No relief with gas-x, excedrin, or 400mg ibuprofen. . History of Present Illness Ms. Bond presents via POV to room #5, alone. She reports that she is a smoker but has cut down since March when she had her meniscus removed in one of her knees. She's down to smoke about a half a pack per day. 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 She states that this morning on her around 2 AM she started nosome pain in her right shoulder region radiating down to her right elbow and now into her wrist. Then around 4 AM she started noticing she had some indigestion as well as some nausea. Then around 5 AM she started having some slight dizziness. She has a very strong family history of coronary artery disease in that her father at age 45 seconds: Myocardial infarction and her sister at age 42 had blockages in her LAD. She denies any precipitating, exacerbating or mitigating measures. She denies having similar episodes in the past. The patient presents with chest pain. The onset was 5 hours ago. The course/duration of symptoms is constant. Location: Right anterior superior chest. Radiating pain: right arm. right shoulder. The character of symptoms is achy. The degree at onset was moderate. The degree at maximum was moderate. The degree at present is moderate. The exacerbating factor is none. The relieving factor is none. Risk factors consist of smoking, family history of coronary artery disease, not coronary artery disease, not hypertension, not diabetes mellitus, not obesity, not hyperlipidemia, not pulmonary embolism and not deep vein thrombosis. Prior episodes: none. Therapy today None. Associated symptoms: nausea, denies shortness of breath, denies vomiting, denies diaphoresis, denies anxiety and denies palpitations. Additional history: See note above.. Review of Systems Constitutional symptoms: No fever, no chills, no weakness, no fatigue, no decreased activity. Skin symptoms: No jaundice, no rash, no pruritus, no abrasions, no petechiae. Eye symptoms: Vision unchanged. ENMT symptoms: No sore throat, no nasal congestion. Respiratory symptoms: No shortness of breath, no orthopnea, no cough. Cardiovascular symptoms: Chest pain, No palpitations, Gastrointestinal symptoms: Nausea, no abdominal pain, no vomiting, no diarrhea, no constipation, no rectal bleeding. Genitourinary symptoms: No dysuria, no hematuria, no vaginal bleeding, no vaginal discharge. Musculoskeletal symptoms: Back pain, no Muscle pain, no Joint pain. Neurologic symptoms: Dizziness, no headache, no altered level of consciousness, no numbness, no tingling, no weakness. Psychiatric symptoms: No anxiety, no depression. Endocrine symptoms: No polyuria, no polydipsia. Hematologic/Lymphatic [...] history: Hysterectomy. Past Medical/ Family/ Social History Surgical history: Clavicle ([id number]). Tympanostomy ([id number]). Adenoids ([id number]). shoulder surgery. Gallbladder absent ([id number]). Tubal ligation ([id number]). Hysterectomy ([id number]).. Family history: Heart attack Father Sister Coronary [...] None Years of Tobacco Use 17 . Physical Examination Vital Signs Vital Signs/Vital Measures 08/11/2019 7:16 EDT Systolic Blood Pressure 145 mmHg HI Diastolic Blood Pressure 87 mmHg Temperature Source Oral Temperature Mode Fahrenheit Temperature, Fahrenheit 98 Deg F Clinical Temperature, C 36.7 Deg C Peripheral Pulse Rate 90 bpm Respiratory Rate 20 Breaths/Min Oxygen Saturation 100 % Oxygen Therapy Mode Room air . Measurements 08/11/2019 7:16 EDT Height Source Stated Height Entry Format [place] Height/Length, MALAWIAN (ft) 5 ft Height/Length MALAWIAN 5 Inch CLINICALHEIGHT 165.1 cm [place] Body Weight 56.59 kg Weight Source, ED Standing scale Weight Entry Format [place] Weight [place] lb 171.3 lb CLINICALWEIGHT 77.86 kg Body Surface Area (BSA) 1.85 m2 Body Mass Index 28.6 kg/m2 HI . Oxygen saturation. General: Alert, no acute distress, well nourished, calm, cooperative, well hydrated, Ambulation status: With steady gait. Skin: Warm, dry, pink, intact, no pallor, no rash. Head: Normocephalic, atraumatic. Neck: Supple, trachea midline, [...] Symmetrical chest wall expansion. Chest wall: No deformity, , On exam: Right, anterior, superior, moderate, tenderness, reproduces complaint. Back: Nontender, Normal range of motion, , Thoracic: Moderate, tenderness. Musculoskeletal: Normal ROM, normal strength, no tenderness, no swelling. Gastrointestinal: Soft, Nontender, Non distended, Normal bowel sounds, No organomegaly. Genitourinary: Exam deferred. Neurological: Alert and oriented to person, place, time, and situation. Lymphatics: No lymphadenopathy. Psychiatric: Cooperative, appropriate mood & affect. Medical Decision Making Differential Diagnosis: Unstable angina, angina, anxiety, atypical chest pain, pneumonia, gastroesophageal reflux disease, costochondritis, pleurisy, chest wall pain, congestive heart failure, chronic obstructive pulmonary disease, not biliary disease. Documents reviewed: Emergency department nurses' notes, emergency department records, prior records. Orders Include Previous Orders (Selected) Inpatient Orders Ordered Blood Pressure: Cardiac Monitoring: Discharge: EKG: Normal Saline Bolus: 1,000 mL, 100 mL/Hr, IV Piggyback, 1-Time Pulse Oximetry Continuous Monitoring: Saline Lock Insert: Ordered (Exam Completed) CR Chest 1 Vw Portable: Completed CBC no Diff (Hemogram): CMP Comprehensive Metabolic Panel: : 5 mL, Oral, 1-Time ED Adult Fall Risk Assessment: ED Adult Triage: ED C-SSRS: ED Clinical Reconciliation: ED drying frame operator: HCG Urine Qualitative: Mylanta: 30 mL, Oral, 1-Time [place] 5 mg-325 mg oral tablet: 1 Tab, Oral, 1-Time ProBNP: Troponin I Ultra: Urinalysis w Microscopic if Indicated: Zofran ODT: 4 mg, Oral, 1-Time Prescriptions Prescribed [place] 7.5 mg-325 mg oral tablet: 1 Tab, Oral, Q6H, for 3 Day(s), PRN: for pain, 12 Tab, 0 Refill(s) cyclobenzaprine 10 mg oral tablet: 1 Tab, Oral, TID, for 5 Day(s), PRN: as needed for spasm, 15 Tab, 0 Refill(s). Electrocardiogram: Time 08/11/2019 07:46:00, rate 80, normal sinus rhythm, Interpretation by Emergency Physician Interpreted by me contemporaneously with care, within normal limits, no ischemic changes. Results review: Lab results : Lab Results 08/11/2019 7:54 EDT Urine Type U CleanCatch Urine Color Yellow Urine Appearance Clear Urine Specific Secor 1.006 Urine pH Dipstick 6.0 Urine Leukocyte Esterase Negative Urine Nitrite Negative Urine Protein Dipstick Negative Urine Glucose Dipstick Negative Urine Ketones Dipstick Negative Urine Urobilinogen Dipstick 0.2 EU/dL Urine Bilirubin Dipstick Negative mg/dL Urine Blood Dipstick Negative HCG Urine Qualitative Negative 08/11/2019 7:48 EDT Sodium Level 140 mmol/L Potassium Level 3.3 mmol/L LOW Chloride Level 112 mmol/L Carbon Dioxide Level 20 mmol/L LOW Anion Gap 11 Glucose Level 87 mg/dL Blood Urea Nitrogen 12 mg/dL Creatinine Level 0.73 mg/dL eGFR >60 mL/min/1.73m2 eGFR NonAfrican >60 mL/min/1.73m2 Bun/Creatinine 16.4 Calcium Level 8.4 mg/dL LOW Protein Total 7.4 Gram/dL Albumin Level 3.7 Gram/dL Globulin 3.7 Gram/dL A/G Ratio 1.0 LOW Bilirubin Total 0.4 mg/dL Alk Phos 82 Units/Liter AST 14 Units/Liter ALT 17 Units/Liter Troponin I Ultra <0.015 ng/mL ProBNP 55 pg/mL WBC 6.7 K/uL RBC 3.51 Million/uL LOW Hgb 12.0 Gram/dL Hct 36.3 % MCV 103.4 fL HI MCH 34.2 pg HI MCHC 33.1 Gram/dL Platelet Count 141 K/uL LOW MPV 10.8 fL RDW 12.6 % Slide Review No . Chest X-Ray: Time reported 08/11/2019 08:35:00, no acute disease process, View: AP, interpretation by Emergency Physician. Impression and Plan Diagnosis Nonspecific chest pain - Discharge, Emergency medicine, Medical Elevated blood pressure reading - Discharge, Emergency medicine, Medical Plan Condition: Stable. Disposition: Discharged Admit/Transfer/Discharge: Discharge (Order): Start: 08/11/2019 8:48 EDT, Discharge to: Home. Prescriptions: Prescription Credit Card Specialist Pharmacy: [place] 7.5 mg-325 mg oral tablet (Prescribe): 1 Tab, Oral, Q6H, for 3 Day(s), PRN: for pain, 12 Tab, 0 Refill(s) cyclobenzaprine 10 mg oral tablet (Prescribe): 1 Tab, Oral, TID, for 5 Day(s), PRN: as needed for spasm, 15 Tab, 0 Refill(s). Patient was given the following educational materials: Nonspecific Chest Pain, Adult, Edxv-tq-Jiyi, Chest Wall Pain, Ramq-xx-Mxuq, Hypertension, Adult, Wjne-kn-Zrfb, Preventing Hypertension. Limitations: Limited activity. Follow up with: ANSLEY GUADALUPE Within 2 to 3 days Your blood pressure was elevated during your visit to the emergency department today. There are many reasons as to why this may be, including your condition upon arrival to the hospital, as well as the stress involved with your situation. I have provided you a phone contact in order to arrange follow-up for this condition and its potential complications. You may certainly arrange follow up with your primary provider. Return or go to the nearest ER for worsening uncontrolled pain, fever, difficulty breathing and or persistent vomiting. . Counseled: Patient, Regarding diagnosis, Regarding diagnostic [...] further evaluation of possible pre-hypertension or Hypertension.. Notes: In my professional medical judgment, opioids and/o other controlled substances (i.e. OOCS) are clinically indicated in the treatment of this patient based on the medical documentation contained in this chart. TESS was queried. I reviewed the report. I counseled the patient as clinically appropriate about the risk and benefits of OOCS treatment.. documented in this encounter Plan of Treatment Not on file documented as of this encounter Visit Diagnoses Not on filedocumented in this encounter Care Teams Neonatal Intensive Care Nurse Relationship Specialty Start Date End Date Alan Beyer MD [address] [place] [address] PCP - General Family Medicine 06/08/23 documented as of this encounter
--- OUTSIDE RECORDS SUMMARY | 2024-11-05 10:21 | XMS_ITS | Encounter Summary ---
Author Organization [facility] Address [address] [place] [address] Care Team Providers Care Tank Wagon Driver Name Role Phone Sage Zeng MD Primary Care Provider [phone] Reason for Referral * Consultation (Routine) - Authorized Specialty Diagnoses / Procedures Referred By Vladislav t Referred To Contact Dental Tower Foreman / Dentistry Diagnoses Loss of teeth Ellis Farias APRN [address] [place] [address] Phone: tel: fax: [facility] [address] [place] [address] Phone: tel: fax: Referral ID Status Reason Start Date Expiration Date Visits Requested Visits Authorized [id number] Authorized Specialty Services Required 09/23/2024 03/25/2026 1 1 Encounter Details Date Type Department Care Team (Late st Contact Info) Description 09/23/2024 [facility] [address] [place] [phone] Ellis Farias APRN [address] [place] [address] Loss of teeth (Primary Dx) Social History Tobacco Use Types [...] Upcoming Encounters Date Type Department Care Team ([facility] st Contact Info) Description 12/03/2024 9:00 AM EDT Office Visit [facility] [address] [place] [address] Xavier Escobedo, DIDIER [address] [facility] [place] [address] Scheduled Referrals Name Type Priority Associated Diagnoses Order Schedule Ambulatory referral to Dentistry Outpatient Referral Routine Loss of teeth Expected: 09/23/2024 (Approximate), Expires: 03/26/2026 documented as of this encounter Visit Diagnoses Diagnosis Loss of teeth- Primary Acquired absence of teeth, unspecified documented in this encounter Additional Health Concerns Assessment Noted Time A Body Mass Index follow-up plan has been documented for the patient 04/17/2023 12:12 PM EST documented as of this encounter Care Teams Tank Wagon Driver Relationship Specialty Start Date End Date Sage Zeng MD [address] [place] [address] PCP - General 09/24/20 documented as of this encounter
--- OUTSIDE RECORDS SUMMARY | 2024-11-05 10:21 | XMS_ITS | Encounter Summary ---
Author Organization [facility] [employer] Address [address] [place] [address] Care Team Providers Care Physical Therapy Professor Name Role Phone Alan Beyer MD Primary Care Provider [phone] Encounter Details Date Type Department Care Team (Late st Contact Info) Description 06/06/2018 Transcribed Document [facility] [place] [address] ProviderJessenia MD [address] [place] [id number] Social History Tobacco Use Types Packs/Day Years Used Date Smoking Tobacco: Never Assessed Comments Unknown Sex and Gender Information Value Date Recorded Sex Assigned at Not on file Legal Sex Female 4:28 PM CDT Gender Identity Not on file Sexual Orientation Not on file documented as of this encounter Miscellaneous Notes * Cerner Conversion Note - Jessenia Alvarez MD - 06/06/2018 10:28 AM COVERING MACHINE OPERATOR HELPER DATE OF ADMISSION: 06/05/2018 DATE OF DISCHARGE: 06/06/2018 HOSPITAL COURSE: Patient underwent robotic-assisted vaginal hysterectomy on June 05. Her postoperative course is uncomplicated. She is tolerating her diet. She is ambulating doing well. She is stable. Incision is dry and intact. Tolerating her diet. She is ambulating voiding without any complications. DISCHARGE MEDICATIONS: We are going to discharge her home in stable condition with, 1. Langlois. 2. Motrin. 3. Phenergan. 4. MiraLAX. FOLLOWUP: She will follow up my office in two weeks. DISCHARGE PATHOLOGY: Pending. DISCHARGE INSTRUCTIONS: If she has any problems, she is to call. We are available for care 24 hours a day. Benito Lozano D.O. Dict: 06/06/2018 10:28:14 Trans: 06/07/2018 06:38:08 CC1: Benito Lozano D.O. Electronically signed by [facility], [facility] Conversion Tunnel Mucker Cerner at 08/31/2022 5:03 PM CDT documented in this encounter Plan of Treatment Not on file documented as of this encounter Visit Diagnoses Not on filedocumented in this encounter Care Teams Physical Therapy Professor Relationship Specialty Start Date End Date Alan Beyer MD [address] [place] [address] PCP - General Family Medicine 06/08/23 documented as of this encounter
--- OUTSIDE RECORDS SUMMARY | 2024-11-05 10:21 | XMS_ITS | Encounter Summary ---
Author Organization [facility] [employer] Address [address] [place] [address] Care Team Providers Care Photographic Artist Name Role Phone Alan Beyer MD Primary Care Provider [phone] Encounter Details Date Type Department Care Team (Late st Contact Info) Description 02/02/2019 Transcribed Document [facility] [place] [facility] [place] [address] ProviderJessenia MD [address] [place], [place] [address] Social History Tobacco Use Types Packs/Day Years Used Date Smoking Tobacco: Never Assessed Comments Unknown Sex and Gender Information Value Date Recorded Sex Assigned at Not on file Legal Sex Female 4:28 PM CDT Gender Identity Not on file Sexual Orientation Not on file documented as of this encounter Miscellaneous Notes * Cerner Conversion Note - Jessenia Alvarez MD - 02/02/2019 4:33 PM CDT Electronically signed by [facility] Conversion Registered Associate Cerner at 08/31/2022 5:18 PM CDT documented in this encounter Plan of Treatment Not on file documented as of this encounter Visit Diagnoses Not on filedocumented in this encounter Care Teams Photographic Artist Relationship Specialty Start Date End Date Alan Beyer MD [address] [place] [address] PCP - General Family Medicine 06/08/23 documented as of this encounter
--- OUTSIDE RECORDS SUMMARY | 2024-11-05 10:21 | XMS_ITS | Encounter Summary ---
Author Organization [facility] [employer] Address [address] [place] [address] Care Team Providers Care Mark Up Designer Name Role Phone Alan Beyer MD Primary Care Provider [phone] Encounter Details Date Type Department Care Team (Late st Contact Info) Description 02/02/[address] [facility] [place] [address] ProviderJessenia MD [address] [place], [place] [phone] Social History Tobacco Use Types Packs/Day Years Used Date Smoking Tobacco: Never Assessed Comments Unknown Sex and Gender Information Value Date Recorded Sex Assigned at Not on file Legal Sex Female 4:28 PM CDT Gender Identity Not on file Sexual Orientation Not on file documented as of this encounter Miscellaneous Notes * Cerner Conversion Note - Jessenia Alvarez MD - 02/02/2019 4:53 PM CDT ED Discharge Vital Signs Entered On: 02/02/2019 16:53 EDT Performed On: 02/02/2019 16:53 EDT by Karie Goodwin RN ED Discharge Vital Signs Peripheral Pulse Rate : 80 bpm Respiratory Rate : 20 Breaths/Min Oxygen Saturation : 100 % Oxygen Therapy Mode : Room air Karie Goodwin RN - 02/02/2019 16:53 EDT Electronically signed by [facility] Conversion Golf Tournament Consultant Cerner at 08/31/2022 4:58 PM CDT documented in this encounter Plan of Treatment Not on file documented as of this encounter Visit Diagnoses Not on filedocumented in this encounter Care Teams Mark Up Designer Relationship Specialty Start Date End Date Alan Beyer MD [address] [place] [address] PCP - General Family Medicine 06/08/23 documented as of this encounter
--- OUTSIDE RECORDS SUMMARY | 2024-11-05 10:21 | XMS_ITS | Encounter Summary ---
Author Organization [employer] [employer] Address [address] [place] [address] Care Team Providers Care Developmental Mathematics Instructor Name Role Phone Alan Beyer MD Primary Care Provider [phone] Encounter Details Date Type Department Care Team (Late st Contact Info) Description 04/09/2019 Transcribed Document [facility] [place] [facility] [place] [address] ProviderJessenia MD [address] [place], [place] [phone] Social History Tobacco Use Types Packs/Day Years Used Date Smoking Tobacco: Never Assessed Comments Unknown Sex and Gender Information Value Date Recorded Sex Assigned at Not on file Legal Sex Female 4:28 PM CDT Gender Identity Not on file Sexual Orientation Not on file documented as of this encounter Miscellaneous Notes * Cerner Conversion Note - Jessenia Alvarez MD - 04/09/2019 1:35 PM CERTIFIED MASSAGE THERAPIST [facility] Main OR PostOp Summary Primary Physician: JESUS EDWARDS JR, JR, MD-ORT Finalized Date/Time: 04/09/19 15:41:24 Pt. Name: CHARLINE BONDAE /Sex: 1980 Female Med Rec #: [id number] Physician: JESUS EDWARDS JR, JR, MD-ORT Financial #: [id number] Pt. Type: O Room/Bed: Admit/Disch: 04/09/19 09:13:00 - Institution: [facility] Main OR PostOp Case Times Entry 1 In PACU II 04/09/19 14:37:00 Ready for PACU II 04/09/19 15:33:00 Discharge Discharge from PACU 04/09/19 15:33:00 II Last Modified By: Jammie Pitts RN 04/09/19 15:41:21 [facility] Main OR PostOp Case Times Audit 04/09/19 15:41:21 Investment Analyst: RON Modifier: [email or web address] <+> 1 Ready for PACU II Discharge <+> 1 Discharge from PACU II Finalized By: Jammie Pitts, RN Document Signatures Signed By: Jammie Pitts RN 04/09/19 15:41 documented in this encounter Plan of Treatment Not on file documented as of this encounter Visit Diagnoses Not on filedocumented in this encounter Care Teams Developmental Mathematics Instructor Relationship Specialty Start Date End Date Alan Beyer MD [address] [place] [address] PCP - General Family Medicine 06/08/23 documented as of this encounter
--- OUTSIDE RECORDS SUMMARY | 2024-11-05 10:21 | XMS_ITS | Encounter Summary ---
Author Organization [facility] [employer] Address [address] [place] [address] Care Team Providers Care Embedded Developer Name Role Phone Alan Beyer MD Primary Care Provider [phone] Encounter Details Date Type Department Care Team (Late st Contact Info) Description 08/11/2019 Transcribed Document [facility] [place] Family Medicine [facility] [place] [address] ProviderJessenia MD [address] [place], [place] [phone] Social History Tobacco Use Types Packs/Day Years [...] MD - 08/11/2019 7:06 AM CDT ED Assessment Entered On: 08/11/2019 7:40 EDT Performed On: 08/11/2019 7:39 EDT by Karie Goodwin RN ED Quick Look Assessment Level of Consciousness : Alert, Awake Affect/Behavior : Appropriate, Calm, Cooperative Orientation : Oriented x 4 Skin Temperature : Warm Skin Description : Dry, Point View Karie Goodwin RN - 08/11/2019 7:39 EDT ED General-Functional Assess Information Obtained From : Patient Preferred Communication Mode : Verbal Communication Barrier : None Primary Language : German Any Spiritual/Cultural Needs or Requests : No Currently in Unsafe Situation : No Karie Goodwin RN - 08/11/2019 7:39 EDT Social Habits Smoking Status : 10 or more cigarettes (1/2 pack or more)/day in last 30 days Smokeless Tobacco Status : Never Desires Tobacco Cessation Medication : No Reason for No Tobacco Cessation Medication : Refuses FDA approved medications Desires Tobacco Cessation Calc : 1 Karie Goodwin RN - 08/11/2019 7:39 EDT Social History (As Of: 08/11/2019 07:40:32 EDT) Tobacco: 10 or more cigarettes (1/2 [...] pain with activity Heart Rhythm : Regular Nail Bed Color : Point View Chest Pain : Yes Detailed Cardiovascular Assessment : Open Karie Goodwin RN - 08/11/2019 7:39 EDT Cardiovascular ASMT, Detailed Cardiac Rhythm : Normal sinus rhythm Karie Goodwin RN - 08/11/2019 7:39 EDT Oxygen Therapy Oxygen Therapy Mode : Room air Karie Goodwin RN - 08/11/2019 7:39 EDT Musculoskeletal Musculoskeletal Assessment WDL : WDL with exceptions Musculoskeletal Assessment Comment : Pt C/O cp that radiates into domenico shoulder blades. Karie Goodwin, ELVER - 08/11/2019 8:20 EDT documented in this encounter Plan of Treatment Not on file documented as of this encounter Visit Diagnoses Not on filedocumented in this encounter Care Teams Embedded Developer Relationship Specialty Start Date End Date Alan Beyer MD [address] [place] [address] PCP - General Family Medicine 06/08/23 documented as of this encounter
--- OUTSIDE RECORDS SUMMARY | 2024-11-05 10:21 | XMS_ITS | Encounter Summary ---
Author Organization [employer] Address [address] [place] [address] Care Team Providers Care Supervisor Ditching Name Role Phone Alan Beyer MD Primary Care Provider [phone] Encounter Details Date Type Department Care Team (Late st Contact Info) Description 06/06/2018 Transcribed Document [facility] [facility] [place] [address] ProviderJessenia MD [address] [place] [address] Social History Tobacco Use Types Packs/Day Years Used Date Smoking Tobacco: Never Assessed Comments Unknown Sex and Gender Information Value Date Recorded Sex Assigned at Not on file Legal Sex Female 4:28 PM CDT Gender Identity Not on file Sexual Orientation Not on file documented as of this encounter Miscellaneous Notes * Cerner Conversion Note - Jessenia ProviderMD - 06/06/2018 5:00 AM HEAD NURSE Chart Check - Review Order Profile Entered On: 06/06/2018 5:15 EST Performed On: 06/06/2018 5:00 EST by JULIÁN TAFOYA, RN Chart Check Chart Reviewed Date and Time : 06/06/2018 5:00 EST Powerplans Initiated/Discontinued as Appropriate : Yes All Active Orders Reviewed : Yes Chart Reviewed With : JULIÁN TAFOYA, RN JULIÁN TAFOYA RN - 06/06/2018 5:14 EST Electronically signed by Jannette [facility] Conversion Office Administration Instructor Cerner at 08/31/2022 5:09 PM CDT documented in this encounter Plan of Treatment Not on file documented as of this encounter Visit Diagnoses Not on filedocumented in this encounter Care Teams Supervisor Ditching Relationship Specialty Start Date End Date Alan Beyer MD [address] [place] [address] PCP - General Family Medicine 06/08/23 documented as of this encounter
--- OUTSIDE RECORDS SUMMARY | 2024-11-05 10:21 | XMS_ITS | Encounter Summary ---
Author Organization [email or web address] Address [address] [place] [address] Care Team Providers Care Cytopathologist Name Role Phone Alan Beyer MD Primary Care Provider [phone] Encounter Details Date Type Department Care Team (Late st Contact Info) Description 11/07/2019 Transcribed Document [facility] [place] [facility] [place] [address] ProviderJessenia MD [address] [place] [address] Social History Tobacco Use Types Packs/Day Years Used Date Smoking Tobacco: Never Assessed Comments Unknown Sex and Gender Information Value Date Recorded Sex Assigned at Not on file Legal Sex Female 4:28 PM CDT Gender Identity Not on file Sexual Orientation Not on file documented as of this encounter Miscellaneous Notes * Cerner Conversion Note - Jessenia ProviderMD - 11/07/2019 1:29 AM CDT [address] [address] Visit Date/Time: 11/07/2019 01:29:28 CHARLINE BOND The above patient was seen in the hospital today and needs to be excused from work/school until Return to Work/School Date: 11-08-2019 documented in this encounter Plan of Treatment Not on file documented as of this encounter Visit Diagnoses Not on filedocumented in this encounter Care Teams Cytopathologist Relationship Specialty Start Date End Date Alan Beyer MD [address] [place] [address] PCP - General Family Medicine 06/08/23 documented as of this encounter
--- OUTSIDE RECORDS SUMMARY | 2024-11-05 10:21 | XMS_ITS | Encounter Summary ---
Author Organization [employer] Address [address] [place] [address] Care Team Providers Care Toll Gate Tender Name Role Phone Alan Beyer MD Primary Care Provider [phone] Encounter Details Date Type Department Care Team (Late st Contact Info) Description 06/06/2018 Transcribed Document [facility] [place] Family Medicine [facility] [place] [address] ProviderJessenia MD [address] [place] [address] Social History Tobacco Use Types Packs/Day [...] Jessenia Alvarez MD - 06/06/2018 10:35 AM TRANSMISSION REBUILDER [facility] [address] [place] [address] Patient Copy Patient Information: Name: CHARLINE BOND Current Date: 06/06/2018 10:35:55 : 1980 Patient Address: [address] [place] [id number] Patient Attending Physician: DORIS BRANCH DO Primary Care Provider: JORGE LUIS BUENO NP-[facility] Primary Care Provider Discharge Diagnosis: Weight on Admission: 165 lb, 0 oz Comment: Follow-up Instructions: With: Address: When: DORIS BRANCH [address], [address] [place], [place] [id number] [employer] (1) Within 2 weeks Discharge Instructions: Diet after Discharge: Regular diet [...] these instructions at home: ??? Only take bzwo-soa-zeodryv or prescription medicines for pain, discomfort, or [...] 04/18/2012 Document Revised: 10/05/2016 Document Reviewed: 11/13/2013 [employer] Interactive Patient Education ? 2017 [email or web address]. Medication Leaflets: acetaminophen and hydrocodone (a SEET a MIN oh fen and maira MOSES done) Hycet, Lorcet, Saco, Verdrocet, Vicodin, Xodol, Zamicet What is the [...] may report side effects to FDA at 3-880-IFN-7588. What other drugs will affect acetaminophen and [...] affect acetaminophen and hydrocodone, including prescription and tryt-tqh-zswubgl medicines, vitamins, and herbal products. Not all [...] to ensure that the information provided by [employer]. ('Multum') is accurate, up-to-date, and complete, but no guarantee is made to that effect. Drug information contained herein may be time sensitive. [employer] information has been compiled for use by healthcare practitioners and consumers in the [place] and therefore [employer] does not warrant that uses outside of the [place] are appropriate, unless specifically indicated otherwise. [employer] drug information does not endorse drugs, diagnose patients or recommend therapy. [employer] drug information is an informational resource designed [...] effective or appropriate for any given patient. [employer] does not assume any responsibility for any aspect of healthcare administered with the aid of information [employer] provides. The information contained herein is not intended to cover all possible uses, directions, precautions, warnings, drug interactions, allergic reactions, or adverse effects. If you have questions about the drugs you are taking, check with your doctor, nurse or pharmacist. Copyright 5619-8283 [employer]. Version: 15.02. Revision Date: 03/18/2018. ibuprofen (EYE bue PROE fen) Advil, Genpril, IBU, Midol IB, Motrin IB, Proprinal, Smart Sense Children's Ibuprofen What is the most important information I should know about ibuprofen? Ibuprofen can increase your risk of fatal heart attack or stroke, especially if you use it half-way or take high doses, or if you [...] or stroke, especially if you use it manager long term care or take high doses, or if you [...] may report side effects to FDA at 5-765-IFU-3814. What other drugs will affect ibuprofen? Ask [...] may interact with ibuprofen, including prescription and gdat-apr-qiawdpt medicines, vitamins, and herbal products. Not all [...] to ensure that the information provided by [employer]. ('Multum') is accurate, up-to-date, and complete, but no guarantee is made to that effect. Drug information contained herein may be time sensitive. [employer] information has been compiled for use by healthcare practitioners and consumers in the [place] and therefore [employer] does not warrant that uses outside of the [place] are appropriate, unless specifically indicated otherwise. [employer]'s drug information does not endorse drugs, diagnose patients or recommend therapy. [employer] drug information is an informational resource designed [...] effective or appropriate for any given patient. [employer] does not assume any responsibility for any aspect of healthcare administered with the aid of information [employer] provides. The information contained herein is not intended to cover all possible uses, directions, precautions, warnings, drug interactions, allergic reactions, or adverse effects. If you have questions about the drugs you are taking, check with your doctor, nurse or pharmacist. Copyright 1633-7746 [employer]. Version: 18.01. Revision Date: 08/10/2016. promethazine (oral) (pro METH a zeen) Phenergan What is the most important information I should know about promethazine? Promethazine should not be given to a child younger than 2 years old. Promethazine can cause severe breathing problems or in very young children. What is promethazine? Promethazine is in a group of drugs called phenothiazines (BKKB-ao-POPS-a-zeens). It works by changing the actions of [...] may report side effects to FDA at 8-854-GAU-1173. What other drugs will affect promethazine? Using this medicine with other drugs that make you sleepy or slow your breathing can cause dangerous or life-threatening side effects. Ask your doctor before taking promethazine with a sleeping pill, narcotic pain medicine, muscle relaxer, or medicine for anxiety, depression, or seizures. Other drugs may interact with promethazine, including prescription and jntq-ijd-hincowv medicines, vitamins, and herbal products. Tell each [...] to ensure that the information provided by [employer]. ('Multum') is accurate, up-to-date, and complete, but no guarantee is made to that effect. Drug information contained herein may be time sensitive. [employer] information has been compiled for use by healthcare practitioners and consumers in the [place] and therefore [employer] does not warrant that uses outside of the [place] are appropriate, unless specifically indicated otherwise. [employer] drug information does not endorse drugs, diagnose patients or recommend therapy. [employer] drug information is an informational resource designed [...] effective or appropriate for any given patient. [employer] does not assume any responsibility for any aspect of healthcare administered with the aid of information [employer] provides. The information contained herein is not intended to cover all possible uses, directions, precautions, warnings, drug interactions, allergic reactions, or adverse effects. If you have questions about the drugs you are taking, check with your doctor, nurse or pharmacist. Copyright 3581-0677 [employer]. Version: 6.02. Revision Date: 02/25/2015. polyethylene glycol 3350 (ladan ee ETH il een GLYE kol) ClearLax, GaviLAX, Gialax, GlycoLax, MiraLax, ERQ6970, SunMark ClearLax What is the most important [...] may report side effects to FDA at 0-022-HFB-6294. What other drugs will affect polyethylene glycol 3350? Other drugs may interact with polyethylene glycol 3350, including prescription and umsn-bke-bmhfruj medicines, vitamins, and herbal products. Tell each [...] to ensure that the information provided by [employer]. ('Multum') is accurate, up-to-date, and complete, but no guarantee is made to that effect. Drug information contained herein may be time sensitive. [employer] information has been compiled for use by healthcare practitioners and consumers in the [place] and therefore [employer] does not warrant that uses outside of the [place] are appropriate, unless specifically indicated otherwise. [employer] drug information does not endorse drugs, diagnose patients or recommend therapy. [employer] drug information is an informational resource designed [...] effective or appropriate for any given patient. [employer] does not assume any responsibility for any aspect of healthcare administered with the aid of information [employer] provides. The information contained herein is not intended to cover all possible uses, directions, precautions, warnings, drug interactions, allergic reactions, or adverse effects. If you have questions about the drugs you are taking, check with your doctor, nurse or pharmacist. Copyright 1714-9120 View[employer]. Version: 2.04. Revision Date: 08/16/2016. CIGARETTE SMOKING: The facts are clear, cigarette smoking will shorten your life. Smoking can cause many illnesses along the way. As a healthcare provider, we recommend that you stop smoking. Assistance with quitting is available by contacting 3-836-SOFT-NOW. This is a free resource providing counseling, [...] Be sure to sign up for the [employer] patient portal, which gives you 04/12 access to your medical information ??? including these discharge instructions ??? using your computer, smartphone, or tablet. Just go to Well Done to get started. Questions? Call . [facility] would like to thank you for allowing us to assist you with your healthcare needs. RIANA Main SARA RANAE, (or veterans employment representative) have received the above patient education materials/instructions and have verbalized understanding: Patient Signature _ Date/Time Patient Anesthetist Signature (if needed) Date/Time Clinician/Hospital Anesthetist Signature (if needed) Date/Time documented in this encounter Plan of Treatment Not on file documented as of this encounter Visit Diagnoses Not on filedocumented in this encounter Care Teams Toll Gate Tender Relationship Specialty Start Date End Date Alan Beyer MD [address] [place] [address] PCP - General Family Medicine 06/08/23 documented as of this encounter
--- OUTSIDE RECORDS SUMMARY | 2024-11-05 10:21 | XMS_ITS | Encounter Summary ---
Author Organization [employer] Address [address] [place] [address] Care Team Providers Care Mechanical Ordnance Assembler Name Role Phone Alan Beyer MD Primary Care Provider [phone] Encounter Details Date Type Department Care Team (Late st Contact Info) Description 02/02/2019 Transcribed Document [facility] [place] [facility] [place] [address] ProviderJessenia MD [address] [place], [place] [id number] Social History Tobacco Use Types Packs/Day Years [...] MD - 02/02/2019 11:17 AM CDT ED Assessment Entered On: 02/02/2019 12:13 EDT Performed On: 02/02/2019 12:11 EDT by Karie Goodwin RN ED Quick Look Assessment Level of Consciousness : Alert, Awake Affect/Behavior : Appropriate, Calm, Cooperative Orientation : Oriented x 4 Skin Temperature : Warm Skin Description : Karie Neville RN - 02/02/2019 12:11 EDT ED General-Functional Assess Information Obtained From : Patient Preferred Communication Mode : Verbal Communication Barrier : None Primary Language : Malay Any Spiritual/Cultural Needs or Requests : No Currently in Unsafe Situation : No Karie Goodwin RN - 02/02/2019 12:11 EDT Social Habits Smoking Status : 10 or more cigarettes (1/2 pack or more)/day in last 30 days Smokeless Tobacco Status : Never Desires Tobacco Cessation Medication : No Reason for No Tobacco Cessation Medication : Refuses FDA approved medications Desires Tobacco Cessation Calc : 1 Karie Goodwin RN - 02/02/2019 12:11 EDT Social History (As Of: 02/02/2019 12:13:21 EDT) Tobacco: 10 or more cigarettes (1/2 [...] 05/24/2018 10:39:04 EST by Breanna Ivey, Elver) Cardiovascular ASMT, ED Cardiovascular Assessment WDL : Karie Escoto RN - 02/02/2019 12:11 EDT Respiratory Respiratory Assessment WDL : Karie Escoto RN - 02/02/2019 12:11 EDT Gastrointestinal ED Gastrointestinal Assessment WDL : WDMary with exceptions Gastrointestinal Symptoms : Abdominal pain Abdominal Tenderness Location : RLQ Karie Goodwin RN - 02/02/2019 12:11 EDT Genitourinary Assessment, ED Genitourinary Assessment WDL : WILBERT with exceptions Urine Color : Tea Karie Goodwin RN - 02/02/2019 12:11 EDT Musculoskeletal Musculoskeletal Assessment WDL : Karie Escoto RN - 02/02/2019 12:11 EDT Integumentary Assessment Integumentary Assessment WDL : Karie Escoto RN - 02/02/2019 12:11 EDT Neurologic ASMT, ED Neurologic Assessment WDL : Karie Escoto RN - 02/02/2019 12:11 EDT Electronically signed by [facility] Conversion Popcorn Vendor Cerner at 08/31/2022 5:11 PM CDT documented in this encounter Plan of Treatment Not on file documented as of this encounter Visit Diagnoses Not on filedocumented in this encounter Care Teams Mechanical Ordnance Assembler Relationship Specialty Start Date End Date Alan Beyer MD [address] [place] [address] PCP - General Family Medicine 06/08/23 documented as of this encounter
--- OUTSIDE RECORDS SUMMARY | 2024-11-05 10:21 | XMS_ITS | Encounter Summary ---
Author Organization [employer] Address [address] [place] [address] Care Team Providers Care Lace Machine Operator Name Role Phone Alan Beyer MD Primary Care Provider [phone] Encounter Details Date Type Department Care Team (Late st Contact Info) Description 06/06/2018 Transcribed Document [place] Family [facility] [place] [address] ProviderJessenia MD [address] [place] [address] Social History Tobacco Use Types [...] Jessenia Alvarez MD - 06/06/2018 10:39 AM BRAND RECORDER Patient Education Materials Follows: Laparoscopically Assisted Vaginal Hysterectomy, Care After Refer [...] these instructions at home: ??? Only take juad-ksj-wlpbmnb or prescription medicines for pain, discomfort, or [...] 04/18/2012 Document Revised: 10/05/2016 Document Reviewed: 11/13/2013 Elsevier Interactive Patient Education ? 2017 [employer]. Electronically signed by Jannette, Trevon Conversion Educational Psychology Teacher Cerner at 08/31/2022 5:17 PM CDT documented in this encounter Plan of Treatment Not on file documented as of this encounter Visit Diagnoses Not on filedocumented in this encounter Care Teams Lace Machine Operator Relationship Specialty Start Date End Date Alan Beyer MD [address] [place] [address] PCP - General Family Medicine 06/08/23 documented as of this encounter
--- OUTSIDE RECORDS SUMMARY | 2024-11-05 10:21 | XMS_ITS | Encounter Summary ---
Author Organization [employer] Address [address] [place] [address] Care Team Providers Care Floor Layer Apprentice Name Role Phone Alan Beyer MD Primary Care Provider [phone] Encounter Details Date Type Department Care Team (Late st Contact Info) Description 08/11/2019 Transcribed Document [facility] [place] Family Medicine Formerly [facility] [place] [address] ProviderJessenia MD [address] [place] [address] Social History Tobacco Use Types Packs/Day Years Used Date Smoking Tobacco: Never Assessed Comments Unknown Sex and Gender Information Value Date Recorded Sex Assigned at Not on file Legal Sex Female 4:28 PM CDT Gender Identity Not on file Sexual Orientation Not on file documented as of this encounter Miscellaneous Notes * Cerner Conversion Note - Jessenia Alvarez MD - 08/11/2019 8:50 AM CDT [place] [id number] CHARLINE BOND :1980 Visit Time:08/11/2019 Your Visit Summary Your Care Team Primary Provider: JAVI TRUJILLO MD Secondary Provider: Your Diagnosis Chest pain Elevated blood pressure reading Nonspecific chest pain Medical Information You may [...] do next Follow-Up Appointments Follow Up with ANSLEY GUADALUPE When Within [...] fever, difficulty breathing and or persistent vomiting. Where: [address] [place], [place] [id number]- Business (1) Allergies Bactrim acetaminophen-oxyCODONE clindamycin Toradol baclofen doxycycline escitalopram fentaNYL lidocaine topical 2% gel meperidine morphine penicillin (Hives) tetanus immune globulin Immunizations This Visit No Immunizations Found Medications What How Much When Instructions Next Dose acetaminophen-hydrocodone (Cypress 7.5 mg-325 mg oral tablet) 1 Tablet(s) Oral Every 6 Hours as needed for for pain Duration: 3 Day(s) Pickup at [place] [address] cyclobenzaprine (cyclobenzaprine 10 mg oral tablet) 1 Tablet(s) Oral Three Times A Day as needed for as needed for spasm Duration: 5 Day(s) Pickup at [place] [address] conjugated estrogens (Premarin) Vaginal Weekly cream fexofenadine (Karine) Oral Every Day ibuprofen 400 Milligram(s) Oral Every 8 Hours as needed for as needed for pain methocarbamol (Robaxin-750 oral tablet) 1 Tablet(s) Oral Every Day valACYclovir (Valtrex) 500 Milligram(s) Oral Every Day fever blister Pharmacy Information [facility] [address]: [address] [place], [place] [id number] [phone] The home medications listed are only as [...] This Visit (last charted value for your 08/11/2019 visit) Hematology 08/11/2019 7:48 AM WBC: 6.7 K/uL -- Normal range between ( 3.9 and 10.0 ) RBC: 3.51 Million/uL -- Normal range between ( 3.93 and 5.22 ) Hct: 36.3 % -- Normal range between ( 34.1 and 44.9 ) Hgb: 12.0 Gram/dL -- Normal range between ( 11.2 and 15.7 ) Platelet Count: 141 K/uL -- Normal range between ( 163 and 369 ) MCH: 34.2 pg -- Normal range between ( 25.6 and 32.2 ) MCHC: 33.1 Gram/dL -- Normal range between ( 32.3 and 36.5 ) MCV: 103.4 fL -- Normal range between ( 79.0 and 94.8 ) Slide Review: No RDW: 12.6 % -- Normal range between ( 11.6 and 14.4 ) MPV: 10.8 fL -- Normal range between ( 9.4 and 12.4 ) Urinalysis 08/11/2019 7:54 AM Urine Nitrite: Negative Urine Leukocyte Esterase: [...] Urine Bilirubin Dipstick: Negative mg/dL Urine Specific [place]: 1.006 -- Normal range between ( 1.005 and 1.030 ) General Chemistry 08/11/2019 7:48 AM Creatinine Level: 0.73 mg/dL -- Normal range between ( 0.55 and 1.02 ) Sodium Level: 140 mmol/L -- Normal range between ( 136 and 146 ) Potassium Level: 3.3 mmol/L -- Normal range between ( 3.5 and 5.1 ) Chloride Level: 112 mmol/L -- Normal range between ( 102 [...] between ( 5 and 37 ) Globulin: 3.7 Gram/dL -- Normal range between ( 1.5 and 4.5 ) Alk Phos: 82 Units/Liter -- Normal range between ( 27 and 136 ) Bun/Creatinine: 16.4 -- Normal range between ( 8.0 and [...] 3.4 and 5.0 ) Cardiac Specific Markers 08/11/2019 7:48 AM Troponin I Ultra: <0.015 ng/mL -- Normal range between ( 0.015 and 0.045 ) ProBNP: 55 pg/mL -- Normal range between ( 0 and 125 ) Endocrinology 08/11/2019 7:54 AM HCG Urine Qualitative: Negative Education Materials Preventing Hypertension Hypertension, commonly called high blood pressure, is when the force of blood pumping through the arteries is too strong. Arteries are blood vessels that carry blood from the heart throughout the body. Over time, hypertension can damage the arteries and decrease blood flow to important parts of the body, including the brain, heart, and kidneys. Often, hypertension does not cause symptoms until blood pressure is very high. For this reason, it is important to have your blood pressure checked on a regular basis. Hypertension can often be prevented with diet and lifestyle changes. If you already have hypertension, you can control it with diet and lifestyle changes, as well as medicine. What nutrition changes can be made? Maintain a healthy diet. This includes: ??? Eating less salt (sodium). Ask your health care provider how much sodium is safe for you to have. The general recommendation is to consume less than 1 tsp (2,300 mg) of sodium a day. ? Do not add salt to your food. ? Choose low-sodium options when grocery shopping and eating out. ??? Limiting fats in your diet. You can do this by eating low-fat or fat-free dairy products and by eating less red meat. ??? Eating more fruits, vegetables, and whole grains. Make a goal to eat: ? 1?2 cups of fresh fruits and vegetables each day. ? 3???4 servings of whole grains each day. ??? Avoiding foods and beverages that have added sugars. ??? Eating fish that contain healthy fats (omega-3 fatty acids), such as mackerel or salmon. If you need help putting together a healthy eating plan, try the DASH diet. This diet is high in fruits, vegetables, and whole grains. It is low in sodium, red meat, and added sugars. DASH stands for Dietary Approaches to Stop Hypertension. What lifestyle changes can be made? Lose weight if you are overweight. Losing just 3?5% of your body weight can help prevent or control hypertension. ? For example, if your present weight is 200 lb (91 kg), a loss of 3???5% of your weight means losing 6???10 lb (2.7???4.5 kg). ? Ask your health care provider to help you with a diet and exercise plan to safely lose weight. ??? Get enough exercise. Do at least 150 minutes of moderate-intensity exercise each week. ? You could do this in short exercise sessions several times a day, or you could do longer exercise sessions a few times a week. For example, you could take a brisk 10-minute walk or bike ride, 3 times a day, for 5 days a week. ??? Find ways to reduce stress, such as exercising, meditating, listening to music, or taking a yoga class. If you need help reducing stress, ask your health care provider. ??? Do not smoke. This includes e-cigarettes. Chemicals in tobacco and nicotine products raise your blood pressure each time you smoke. If you need help quitting, ask your health care provider. ??? Avoid alcohol. If you drink alcohol, limit alcohol intake to no more than 1 drink a day for non women and 2 drinks a day for men. One drink equals 12 oz of beer, 5 oz of wine, or 1?? oz of hard liquor. Why are these changes important? Diet and lifestyle changes can help you prevent hypertension, and they may make you feel better overall and improve your quality of life. If you have hypertension, making these changes will help you control it and help prevent major complications, such as: ??? Hardening and narrowing of arteries that supply blood to: ? Your heart. This can cause a heart attack. ? Your brain. This can cause a stroke. ? Your kidneys. This can cause kidney failure. ??? Stress on your heart muscle, which can cause heart failure. What can I do to lower my risk? Work with your health care provider to make a hypertension prevention plan that works for you. Follow your plan and keep all follow-up visits as told by your health care provider. ??? Learn how to check your blood pressure at home. Make sure that you know your personal target blood pressure, as told by your health care provider. How is this treated? In addition to diet and lifestyle changes, your health care provider may recommend medicines to help lower your blood pressure. You may need to try a few different medicines to find what works best for you. You also may need to take more than one medicine. Take ipdj-puo-vfzqbdj and prescription medicines only as told by your health care provider. Where to find support Your health care provider can help you prevent hypertension and help you keep your blood pressure at a healthy level. Your local hospital or your community may also provide support services and prevention programs. The [place] [employer] offers an online support network at: http://supportnetwork.heart.org/xckw-uigic-otgbjwqo Where to find more information Learn more about hypertension from: ??? National Heart, Lung, and Blood [place]: www.nhlbi.nih.gov/health/health-topics/topics/hbp ??? Centers for Disease Control and Prevention: www.cdc.gov/bloodpressure ??? [place] [employer]icians: http://familydoctor.org/familydoctor/en/diseases-conditions/xosp-pbigk-kpplevr e.printerview.all.html Learn more about the DASH diet from: ??? National Heart, Lung, and Blood [place]: www.nhlbi.nih.gov/health/health-topics/topics/dash Contact a health care provider if: ??? You think you are having a reaction to medicines you have taken. ??? You have recurrent headaches or feel dizzy. ??? You have swelling in your ankles. ??? You have trouble with your vision. Summary ??? Hypertension often does not cause any symptoms until blood pressure is very high. It is important to get your blood pressure checked regularly. ??? Diet and lifestyle changes are the most important steps in preventing hypertension. ??? By keeping your blood pressure in a healthy range, you can prevent complications like heart attack, heart failure, stroke, and kidney failure. ??? Work with your health care provider to make a hypertension prevention plan that works for you. This information is not intended to replace advice given to you by your health care provider. Make sure you discuss any questions you have with your health care provider. Document Released: 05/14/2016 Document Revised: 01/08/2017 Document Reviewed: 01/08/2017 Delphi Interactive Patient Education ?? 2019 [employer]. Hypertension, Adult Hypertension is another name for [...] doctor. This is important. Medicines ??? Take mbse-uzn-noerrxp and prescription medicines only as told by [...] care provider. Document Released: 10/16/2008 Document Revised: 01/08/2019 Document Reviewed: 01/08/2019 Delphi Interactive Patient Education ?? 2019 [employer] Inc. Chest Wall Pain Chest wall pain is [...] safe for you. General instructions ??? Take hxas-krh-nvvuaet and prescription medicines only as told by [...] care provider. Document Released: 10/16/2008 Document Revised: 10/31/2018 Document Reviewed: 10/31/2018 Elsevier Interactive Patient Education ?? 2019 Delphi Inc. Nonspecific Chest Pain Chest pain can [...] these instructions at home: Medicines ??? Take xmxb-dfd-peziynm and prescription medicines only as told by [...] Eating a heart-healthy diet. A diet and nutrition technician (dietitian) can help you to learn healthy [...] care provider. Document Released: 10/16/2008 Document Revised: 10/31/2018 Document Reviewed: 10/31/2018 ElseMicroMed Cardiovascular Interactive Patient Education ?? 2019 Delphi Inc. Emergency Awareness and Preventative Care STROKE [...] Assistance with quitting is available by contacting 9-789-SKIG-NOW. This is a free resource providing counseling, support, and referral. Or you may contact your personal physician. [employer] Suicide Prevention Lifeline: The National Suicide Prevention [...] was given the opportunity to ask questions. Patient/Dining Services Director Name: Patient/Dining Services Director Signature: Relationship to Patient: Clinician/Hospital Dining Services Director Signature: Please Provide a Telephone Number Where You Can Be Reached: Is it Permissible To Leave a Message? Date: Electronically signed by Jannette, [facility] Conversion Certified Retinal Angiographer Cerner at 08/31/2022 5:21 PM CDT documented in this encounter Plan of Treatment Not on file documented as of this encounter Visit Diagnoses Not on filedocumented in this encounter Care Teams Floor Layer Apprentice Relationship Specialty Start Date End Date Alan Beyer MD [address] [place] [address] PCP - General Family Medicine 06/08/23 documented as of this encounter
--- OUTSIDE RECORDS SUMMARY | 2024-11-05 10:21 | XMS_ITS | Encounter Summary ---
Author Organization [employer] Address [address] [place] [address] Care Team Providers Care Competitive Athlete Name Role Phone Alan Beyer MD Primary Care Provider [phone] Encounter Details Date Type Department Care Team (Late st Contact Info) Description 08/12/2019 Transcribed Document [facility] Radiology [address] [place] [address] Yomi Rodríguez MD [address] [place] [address] Dept. [place] [address] Social History Tobacco Use Types Packs/Day Years Used Date Smoking Tobacco: Never Assessed Comments Unknown Sex and Gender Information Value Date Recorded Sex Assigned at Not on file Legal Sex Female 4:28 PM CDT Gender Identity Not on file Sexual Orientation Not on file documented as of this encounter Miscellaneous Notes * Cerner Conversion Note - Yomi Rodríguez MD - 08/12/2019 10:54 AM EDT CR Chest 1 Vw Portable Ordered: 08/11/2019 Modified Reason for Exam: chest pain 08/11/2019 10:37 08/12/2019 09:54 (YOMI RODRÍGUEZ MD-EMR) Reviewed by Provider, No further action required X2?? called and informed of RLL opacity, she has no symptoms, will call back or return if cough or symptoms develop otherwise I advised follow up with PCP when able for repeat 2 view. 08/11/2019 17:31 (POORNIMA, KIRK) Provider Review Required Electronically signed by Interface, [employer] Conversion Regional Construction Manager Cerner at 08/31/2022 4:57 PM CDT documented in this encounter Plan of Treatment Not on file documented as of this encounter Visit Diagnoses Not on filedocumented in this encounter Care Teams Competitive Athlete Relationship Specialty Start Date End Date Alan Beyer MD [address] [place], [place] [id number] PCP - General Family Medicine 06/08/23 documented as of this encounter
--- OUTSIDE RECORDS SUMMARY | 2024-11-05 10:21 | XMS_ITS | Encounter Summary ---
Author Organization [employer] Address [address] [place] [address] Care Team Providers Care Cheerleading Coach Name Role Phone Alan Beyer MD Primary Care Provider [phone] Encounter Details Date Type Department Care Team (Late st Contact Info) Description 06/06/2018 Transcribed Document [facility] [place] [facility] [place] [address] ProviderJessenia MD [address] [place], [place] [address] Social History Tobacco Use Types Packs/Day Years Used Date Smoking Tobacco: Never Assessed Comments Unknown Sex and Gender Information Value Date Recorded Sex Assigned at Not on file Legal Sex Female 4:28 PM CDT Gender Identity Not on file Sexual Orientation Not on file documented as of this encounter Miscellaneous Notes * Cerner Conversion Note - Jessenia Alvarez MD - 06/06/2018 10:34 AM CONTROLS ENGINEER Nursing Discharge Summary Entered On: 06/06/2018 10:35 EST Performed On: 06/06/2018 10:34 EST by Shala Perez Rn Discharge Documentation Discharge Date/Time : 06/06/2018 11:10 EST Shala Perez Rn - 06/06/2018 11:10 EST Patient Disposition, General : Discharge Discharge To : Home with ambulatory/outpatient follow-up Mode Of Departure, General Discharge : Private vehicle Accompanied By, Discharge : Mother IV Discontinued : Yes Medications Given to Patient : No Personal Belongings With Patient : Yes Pt's Own Supply of Medications Returned : No Prescriptions Given to Patient : Yes Discharge Instructions Reviewed With, Opportunity For Questions Given : Patient Patient Education Completed : Yes Number of Prescriptions Given : 4 Teaching Method : Explanation Teaching Evaluation : Verbalizes understanding Shala Perez Rn - 06/06/2018 10:34 EST Electronically signed by Jannette [facility] Conversion Rubber Molder Cerner at 08/31/2022 5:10 PM CDT documented in this encounter Plan of Treatment Not on file documented as of this encounter Visit Diagnoses Not on filedocumented in this encounter Care Teams Cheerleading Coach Relationship Specialty Start Date End Date Alan Beyer MD [address] [place] [address] PCP - General Family Medicine 06/08/23 documented as of this encounter
--- OUTSIDE RECORDS SUMMARY | 2024-11-05 10:22 | XMS_ITS | Encounter Summary ---
Author Organization [employer] Address [address] [place] [address] Care Team Providers Care Produce Buyer Name Role Phone Alan Beyer MD Primary Care Provider [phone] Encounter Details Date Type Department Care Team (Late st Contact Info) Description 06/28/2018 Transcribed Document [facility] [place] Family Medicine [address] [place] [address] ProviderJessenia MD [address] [place] [address] Social History Tobacco Use Types Packs/Day Years Used Date Smoking Tobacco: Never Assessed Comments Unknown Sex and Gender Information Value Date Recorded Sex Assigned at Not on file Legal Sex Female 4:28 PM CDT Gender Identity Not on file Sexual Orientation Not on file documented as of this encounter Miscellaneous Notes * Cerner Conversion Note - Jessenia Alvarez MD - 06/28/2018 7:29 PM HOURLY MANAGER ED Discharge Vital Signs Entered On: 06/28/2018 19:30 EST Performed On: 06/28/2018 19:29 EST by LEONID CASTANEDA RN ED Discharge Vital Signs Peripheral Pulse Rate : 102 bpm (HI) Respiratory Rate : 20 Breaths/Min Blood Pressure Location : Arm, left upper Blood Pressure Source : Non-Invasive BP Device ED Pain : Yes Systolic Blood Pressure : 120 mmHg Diastolic Blood Pressure : 82 mmHg Oxygen Saturation : 96 % LEONID CASTANEDA RN - 06/28/2018 19:29 EST Pain Assessment Pain Assessment : Follow-up assessment Pain Scale Used : 0-10 Scale Location : Vaginal Quality : Aching LEONID CASTANEDA RN - 06/28/2018 19:29 EST Pain Scale Intensity : 8 LEONID CASTANEDA RN - 06/28/2018 19:29 EST Image 4 - Images currently included in the form version of this document have not been included in the text rendition version of the form. Electronically signed by Jannette [facility] Conversion Station Mechanic Apprentice Cerner at 08/31/2022 4:58 PM CDT documented in this encounter Plan of Treatment Not on file documented as of this encounter Visit Diagnoses Not on filedocumented in this encounter Care Teams Produce Buyer Relationship Specialty Start Date End Date Alan Beyer MD [address] [place] [address] PCP - General Family Medicine 06/08/23 documented as of this encounter
--- OUTSIDE RECORDS SUMMARY | 2024-11-05 10:22 | XMS_ITS | Encounter Summary ---
Author Organization [facility] Address [address] [place] [address] Care Team Providers Care Collet Driller Name Role Phone Alan Beltre MD Primary Care Provider [phone] Reason for Visit * Reason Onset Date Comments Other 10/20/2024 Encounter Details Date Type Department Care Team (Late st Contact Info) Description 10/20/2024 Telephone [place] [id number] Ynes Hoffman Ortho Tech Other Social History Tobacco Use Types Packs/Day Years [...] as of this encounter Miscellaneous Notes * Telephone Encounter - Ynes Hoffman Ortho Tech - 10/20/2024 7:43 AM EDT Called and left a message for patient with notes below. Impression: Suspected carpal tunnel syndrome but note isn't available. Plan: Agree with plan. Brace, NSAID, tylenol, ice, elevation. Follow up in 2-3 weeks if not improving. * Telephone Encounter - Ynes Hoffman Ortho Tech - 10/20/2024 7:43 AM EDT ----- Message from [facility] Nurse Adam sent at 10/18/2024 12:44 PM EDT ----- Regarding: Order for CHARLINE BOND Patient Name: CHARLINE BOND([id number]) Sex: Female : 1980 PCP: ALAN BELTRE Center: [facility] Level of Service:[address] [place] OFFICE/OUTPATIENT NEW LOW MDM 30 MINUTES Types of orders made on 10/18/2024: Imaging, Outpatient Referral, [place] Charge Order Date:10/18/2024 Ordering User:ADAM PALACIOS [[id number]] Encounter Provider:Moisés Katz PA [[id number]] Authorizing Provider: Moisés Katz PA [[id number]] Department:[facility][[id number]] Order Specific Information Order: HAND POOL COMMUNICATION ORDER [Custom: [id number]] Order #: [id number]: [id number] Priority: Routine Class: Internal Referral Cosign required by MOISÉS KATZ[[id number]] Associated Diagnoses M79.642 Left hand pain G56.03 Bilateral carpal tunnel syndrome Priority: Routine Class: Internal Referral Cosign required by MOISÉS KATZ[[id number]] Associated Diagnoses M79.642 Left hand pain G56.03 Bilateral carpal tunnel syndrome documented in this encounter Plan of Treatment Upcoming Encounters Date Type Department Care Team ([facility] st Contact Info) Description 11/19/2024 8:30 AM EDT Office Visit Pinky ADAME [address] [place] [address] Shira Ambrose PA-C [address] [place] [address] documented as of this encounter Visit Diagnoses Not on filedocumented in this encounter Care Teams Collet Driller Relationship Specialty Start Date End Date Alan Beltre MD [address] [place], [place] [id number] PCP - General Family Medicine 10/05/24 documented as of this encounter
--- OUTSIDE RECORDS SUMMARY | 2024-11-05 10:22 | XMS_ITS | Encounter Summary ---
Author Organization [facility] [place] [address] Care Team Providers Care Road Mixer Operator Name Role Phone Alan Beyer MD Primary Care Provider [phone] Encounter Details Date Type Department Care Team (Latest Contact Info) Description 10/05/2024 Travel Social History Tobacco Use Types Packs/Day Years [...] on file documented as of this encounter Functional Status * Suicide Severity Rating Answer Date of Assessment Author No Risk 10/05/2024 7:56 PM EDT Nakita Mojica RN * [place] Suicide Severity Rating Scale (Q shift for moderate and high) Question Answer Date of Assessment Author 1. In the past month, have y ou wished you were or wished you could go to sleep and not wake up? 0 10/05/2024 7:56 PM EDFaith Vance RN 2. In the past month, have y ou actually had any thoughts of killing yourself? (If no, skip to question 6) 0 10/05/2024 7:56 PM EDFaith Vance RN 6. Have you ever done anythi ng, started to do anything, or prepared to do anything to end your life? 0 10/05/2024 7:56 PM LUÍST Faith Mojica RN documented as of this encounter Plan of Treatment Upcoming Encounters Date Type Department Care Team (Late st Contact Info) Description 11/19/2024 8:30 AM EDT Office Visit [facility] [address] [place] [address] Shira Ambrose PA-C [address] [place] [address] documented as of this encounter Visit Diagnoses Not on filedocumented in this encounter Care Teams Road Mixer Operator Relationship Specialty Start Date End Date Alan Beyer MD [address] [place] [address] PCP - General Family Medicine 10/05/24 documented as of this encounter
--- OUTSIDE RECORDS SUMMARY | 2024-11-05 10:22 | XMS_ITS | Encounter Summary ---
Author Organization [employer] Address [address] [place] [address] Care Team Providers Care Chiropractor Sole Practitioner Name Role Phone Alan Beyer MD Primary Care Provider [phone] Encounter Details Date Type Department Care Team (Late st Contact Info) Description 06/28/[address] [facility] [place] Family Medicine [facility] [place] [address] ProviderJessenia MD [address] [place] [address] Social History Tobacco Use Types Packs/Day [...] Jessenia Alvarez MD - 06/28/2018 1:18 PM ADVERTISING COPY WRITER ED Triage Entered On: 06/28/2018 13:25 EST Performed On: 06/28/2018 13:22 EST by Charline Love LOTTERY SALES CLERK Triage Across the Room Triage Date/Time : 06/28/2018 13:22 EST Chief Complaint : Pt states 3 week post-op vaginal hysterectomy, c/o vaginal pain starting last night. Charline Love RN - 06/28/2018 13:22 EST DCP GENERIC CODE Tracking Acuity : 3 - Urgent Tracking Group : [facility] Charline Love RN - 06/28/2018 13:22 EST Mode of Arrival : Ambulatory Transported to ED by : Private vehicle To Room Via : Ambulate Accompanied By : Unaccompanied ED Vital Signs : Document Height & Weight : Document ED Allergies : Document ED Reason for Visit : Document Tetanus Immunization : Unknown Charline Love RN - 06/28/2018 13:22 EST Infectious Disease History Infectious Disease History : Chicken pox/Shingles, Herpes Fever/Chills Last 48 Hours : No Travel To [place] with Travel Advisories : No Travel Outside [place] Within Last 30 Days : No Contact With Traveler to Advisory Region : No Tuberculosis Symptoms : None Charline Love RN - 06/28/2018 13:22 EST Vital Signs ED Temperature Source : Oral Temperature Mode : Fahrenheit Temperature, Fahrenheit : 98.0 Deg F ED Pain : Yes Clinical Temperature, C : 36.7 Deg C Oxygen Therapy Mode : Room air Peripheral Pulse Rate : 108 bpm (HI) Respiratory Rate : 18 Breaths/Min Systolic Blood Pressure : 125 mmHg Diastolic Blood Pressure : 86 mmHg Oxygen Saturation : 99 % Charline Love RN - 06/28/2018 13:22 EST Allergy (As Of: 06/28/2018 13:25:51 EST) Allergies (Active) acetaminophen-oxyCODONE Estimated Onset Date: Unspecified ; Comments: Comment 1: throws up and itching ; Created By: Breanna Ivey Rn; Reaction Status: Active ; Category: Drug ; Substance: acetaminophen-oxyCODONE ; Severity: Severe ; Updated By: Breanna Ivey Rn; Source: Patient ; Reviewed Date: 06/28/2018 13:24 EST baclofen Estimated Onset Date: Unspecified ; Comments: Comment 1: hives and cant breath ; Created By: Breanna Ivey Rn; Reaction Status: Active ; Category: Drug ; Substance: baclofen ; Type: Allergy ; Updated By: Breanna Ivey Rn; Reviewed Date: 06/28/2018 13:24 EST Bactrim Estimated Onset Date: Unspecified ; Comments: Comment 1: hives not breathing ; Created By: Breanna Ivey Rn; Reaction Status: Active ; Category: Drug ; Substance: Bactrim ; Type: Allergy ; Severity: Severe ; Updated By: Breanna Ivey Rn; Source: Patient ; Reviewed Date: 06/28/2018 13:24 EST clindamycin Estimated Onset Date: Unspecified ; Created By: Isi Khoury Rn; Reaction Status: Active ; Category: Drug ; Substance: clindamycin ; Type: Allergy ; Severity: Severe ; Updated By: Isi Khoury Rn; Reviewed Date: 06/28/2018 13:24 EST doxycycline Estimated Onset Date: Unspecified ; Comments: Comment 1: hives and projectile vomiting ; Created By: Breanna Ivey Rn; Reaction Status: Active ; Category: Drug ; Substance: doxycycline ; Type: Allergy ; Updated By: Breanna Ivey Rn; Reviewed Date: 06/28/2018 13:24 EST escitalopram Estimated Onset Date: Unspecified ; Comments: Comment 1: unknown ; Created By: Breanna Ivey Rn; Reaction Status: Active ; Category: Drug ; Substance: escitalopram ; Type: Allergy ; Updated By: Breanna Ivey Rn; Reviewed Date: 06/28/2018 13:24 EST fentaNYL Estimated Onset Date: Unspecified ; Comments: Comment 1: hallucinate and cry ; Created By: Breanna Ivey Rn; Reaction Status: Active ; Category: Drug ; Substance: fentaNYL ; Type: Allergy ; Updated By: Breanna Ivey Rn; Reviewed Date: 06/28/2018 13:24 EST lidocaine topical 2% gel Estimated Onset Date: Unspecified ; Comments: Comment 1: severe swelling, itching, rash ; Created By: Breanna Ivey Rn; Reaction Status: Active ; Category: Drug ; Substance: lidocaine topical 2% gel ; Type: Allergy ; Updated By: Breanna Ivey Rn; Reviewed Date: 06/28/2018 13:24 EST meperidine Estimated Onset Date: Unspecified ; Comments: Comment 1: hallucinations and angry ; Created By: Breanna Ivey Rn; Reaction Status: Active ; Category: Drug ; Substance: meperidine ; Type: Allergy ; Updated By: Breanna Ivey Rn; Reviewed Date: 06/28/2018 13:24 EST morphine Estimated Onset Date: Unspecified ; Comments: Comment 1: severe itching ; Created By: Breanna Ivey Rn; Reaction Status: Active ; Category: Drug ; Substance: morphine ; Type: Allergy ; Updated By: Breanna Ivey Rn; Reviewed Date: 06/28/2018 13:24 EST penicillin Estimated Onset Date: Unspecified ; Comments: Comment 1: hives ; Created By: Breanna Ivey Rn; Reaction Status: Active ; Category: Drug ; Substance: penicillin ; Type: Allergy ; Updated By: Breanna Ivey Rn; Reviewed Date: 06/28/2018 13:24 EST tetanus immune globulin Estimated Onset Date: Unspecified ; Comments: Comment 1: adverse reaction I get tetanus and my body will swell up ; Created By: Breanna Ivey Rn; Reaction Status: Active ; Category: Drug ; Substance: tetanus immune globulin ; Type: Allergy ; Updated By: Breanna Ivey Rn; Reviewed Date: 06/28/2018 13:24 EST Toradol Estimated Onset Date: Unspecified ; Comments: Comment 1: feels like a softball in chest and my chest goes numb ; Created By: Breanna Ivye Rn; Reaction Status: Active ; Category: Drug ; Substance: Toradol ; Type: Allergy ; Updated By: Breanna Ivey Rn; Reviewed Date: 06/28/2018 13:24 EST Diagnosis Control ED (As Of: 06/28/2018 13:25:51 EST) Problems(Active) Anxiety (SNOMED CT :73071707 ) Name of Problem: Anxiety ; Recorder: ERICKA ISSA RN; Confirmation: Confirmed ; Classification: Medical ; Code: [id number] ; Contributor System: [employer] ; Last Updated: 07/26/2015 22:28 EDT ; Life Cycle Date: 07/26/2015 ; Life Cycle Status: Active ; Vocabulary: SNOMED CT Endometriosis, vagina (SNOMED CT :88629978 ) Name of Problem: Endometriosis, vagina ; Recorder: Breanna Ivey Rn; Confirmation: Confirmed ; Classification: Medical ; Code: [id number] ; Contributor System: [employer] ; Last Updated: 05/24/2018 10:54 EST ; Life Cycle Date: 05/24/2018 ; Life Cycle Status: Active ; Vocabulary: SNOMED CT Kidney stones (SNOMED CT :764624985 ) Name of Problem: Kidney stones ; Recorder: KAYY ANDREW; Confirmation: Confirmed ; Classification: Medical ; Code: [id number] ; Contributor System: [employer] ; Last Updated: 06/06/2016 9:30 EST ; Life Cycle Date: 06/06/2016 ; Life Cycle Status: Active ; Vocabulary: SNOMED CT Migraine (SNOMED CT :49431151 ) Name of Problem: Migraine ; Recorder: ERICKA ISSA RN; Confirmation: Confirmed ; Classification: Medical ; Code: [id number] ; Contributor System: [employer] ; Last Updated: 07/26/2015 22:28 EDT ; Life Cycle Date: 07/26/2015 ; Life Cycle Status: Active ; Vocabulary: SNOMED CT Shoulder pain, left (SNOMED CT :58528063 ) Name of Problem: Shoulder pain, left ; Recorder: Carrier, Breanna Rn; Confirmation: Confirmed ; Classification: Medical ; Code: [id number] ; Contributor System: [employer] ; Last Updated: 05/24/2018 10:53 EST ; Life Cycle Date: 05/24/2018 ; Life Cycle Status: Active ; Vocabulary: SNOMED CT Diagnoses(Active) Vaginal pain Date: 06/28/2018 ; Diagnosis Type: Reason For Visit ; Confirmation: Complaint of ; Clinical Dx: Vaginal pain ; Classification: Medical ; Clinical Service: Emergency medicine ; Code: PNED ; Probability: 0 ; Diagnosis Code: [id number] ED Height and Weight Height Source : Stated Height Entry Format : [place] Height, Feet : 5 ft(Converted to: 152 cm, 60 Inch) Height, Inches : 5 Inch(Converted to: 0 ft 5 Inch, 12.70 cm) Clinical Height : 165.1 cm Weight Source, ED : Standing scale Weight Entry Format : [place] Weight, Pounds : 161 lb Clinical Dosing Weight : 73.18 kg Body Surface Area (BSA) : 1.81 m2 Body Mass Index : 26.8 kg/m2 (HI) [place] Body Weight (IBW) : 56.59 kg Charline Love RN - 06/28/2018 13:22 EST Pain Assessment Pain Assessment : Initial assessment Pain Scale Used : 0-10 Scale Location : Vaginal Charline Love RN - 06/28/2018 13:22 EST Pain Scale Intensity : 7 Charline Love RN - 06/28/2018 13:22 EST Image 4 - Images currently included in the form version of this document have not been included in the text rendition version of the form. ED Influenza/Pneumoccocal Vaccine Influenza Immunization, Current Season : Yes Previous Vaccines from Immunization Schedule : No qualifying data available. Charline Love RN - 06/28/2018 13:22 EST documented in this encounter Plan of Treatment Not on file documented as of this encounter Visit Diagnoses Not on filedocumented in this encounter Care Teams Chiropractor Sole Practitioner Relationship Specialty Start Date End Date Alan Beyer MD [address] [place] [address] PCP - General Family Medicine 06/08/23 documented as of this encounter
--- OUTSIDE RECORDS SUMMARY | 2024-11-05 10:22 | XMS_ITS | Encounter Summary ---
Author Organization [employer] Address [address] [place] [address] Care Team Providers Care Setter Induction Heating Equipment Name Role Phone Alan Beyer MD Primary Care Provider [phone] Encounter Details Date Type Department Care Team (Late st Contact Info) Description 06/28/2018 Transcribed Document [facility] [place] Family [place] [facility] [place] [address] ProviderJessenia MD [address] [place] [address] Social History Tobacco Use Types Packs/Day Years Used Date Smoking Tobacco: Never Assessed Comments Unknown Sex and Gender Information Value Date Recorded Sex Assigned at Not on file Legal Sex Female 4:28 PM CDT Gender Identity Not on file Sexual Orientation Not on file documented as of this encounter Miscellaneous Notes * [employer]ner Conversion Note - Jessenia Alvarez MD - 06/28/2018 4:50 PM STUDY HALL SUPERVISOR Pain Assessment Entered On: 06/28/2018 17:32 EST Performed On: 06/28/2018 17:24 EST by MARYSE TAVERAS RN Intervention Information: HYDROmorphone Performed by MARYSE TAVERAS RN on 06/28/2018 16:54:00 EST HYDROmorphone,1mg IV Push,Peripheral Line 1 Pain Assessment Pain Assessment : Follow-up assessment Pain Scale Used : 0-10 Scale Pain Improved by Intervention : Yes MARYSE TAVERAS RN - 06/28/2018 17:32 EST Pain Scale Intensity : 0 MARYSE TAVERAS RN - 06/28/2018 17:32 EST Image 4 - Images currently included in the form version of this document have not been included in the text rendition version of the form. documented in this encounter Plan of Treatment Not on file documented as of this encounter Visit Diagnoses Not on filedocumented in this encounter Care Teams Setter Induction Heating Equipment Relationship Specialty Start Date End Date Alan Beyer MD [address] [place] [address] PCP - General Family Medicine 06/08/23 documented as of this encounter
--- OUTSIDE RECORDS SUMMARY | 2024-11-05 10:22 | XMS_ITS | Encounter Summary ---
Author Organization [employer] Address [address] [place] [address] Care Team Providers Care Property Technician Name Role Phone Alan Beyer MD Primary Care Provider [phone] Encounter Details Date Type Department Care Team (Late st Contact Info) Description 06/28/2018 Transcribed Document [facility] [place] Family [place] [address] ProviderJessenia MD [address] [place] [address] Social History Tobacco Use Types Packs/Day Years Used Date Smoking Tobacco: Never Assessed Comments Unknown Sex and Gender Information Value Date Recorded Sex Assigned at Not on file Legal Sex Female 4:28 PM CDT Gender Identity Not on file Sexual Orientation Not on file documented as of this encounter Miscellaneous Notes * Cerner Conversion Note - Jessenia Alvarez MD - 06/28/2018 7:30 PM SHIP PILOT DISPATCHER ED Discharge Entered On: 06/28/2018 19:30 EST Performed On: 06/28/2018 19:30 EST by LEONID CASTANEDA RN Discharge Process Patient Disposition : Discharge Teaching Evaluation : Verbalizes understanding IV Discontinued : Yes Nursing Documentation Completed : Yes LEONID CASTANEDA RN - 06/28/2018 19:30 EST ED Discharge Discharge To : Home with ambulatory/outpatient follow-up Mode Of Departure : Ambulatory Accompanied By : Significant other Discharge Instructions Reviewed With, Opportunity For Questions Given : Patient Prescriptions Given to Patient : Yes Number of Prescriptions Given : 1 Medications Given to Patient : No Number of Medications Given : 0 LEONID CASTANEDA RN - 06/28/2018 19:30 EST Electronically signed by Jannette, [facility] Conversion Drill Doctor Cerner at 08/31/2022 5:26 PM CDT documented in this encounter Plan of Treatment Not on file documented as of this encounter Visit Diagnoses Not on filedocumented in this encounter Care Teams Property Technician Relationship Specialty Start Date End Date Alan Beyer MD [address] [place] [address] PCP - General Family Medicine 06/08/23 documented as of this encounter
--- OUTSIDE RECORDS SUMMARY | 2024-11-05 10:22 | XMS_ITS | Encounter Summary ---
Author Organization [facility] [place] [address] Care Team Providers Care Catering Coordinator Name Role Phone Alan Beyer MD Primary Care Provider [phone] Encounter Details Date Type Department Care Team (Latest Contact Info) Description 11/03/2024 Travel Social History Tobacco Use Types Packs/Day [...] Assessment Author No Risk 11/03/2024 11:05 AM Monalisa Beal RN * [place] Suicide Severity Rating Scale (Q shift for moderate and high) Question Answer Date of Assessment Author 1. In the past month, have y ou wished you were or wished you could go to sleep and not wake up? 0 11/03/2024 11:05 AM Monalisa Beal RN 2. In the past month, have y ou actually had any thoughts of killing yourself? (If no, skip to question 6) 0 11/03/2024 11:05 AM Monalisa Beal RN 6. Have you ever done anythi ng, started to do anything, or prepared to do anything to end your life? 0 11/03/2024 11:05 AM Monalisa Beal RN documented as of this encounter Plan of Treatment Upcoming Encounters Date Type Department Care Team (Late st Contact Info) Description 11/19/2024 8:30 AM EDT Office Visit [facility] [address] [place] [address] Shira Ambrose PA-C [address] [place] [address] documented as of this encounter Visit Diagnoses Not on filedocumented in this encounter Care Teams Catering Coordinator Relationship Specialty Start Date End Date Alan Beyer MD [address] [place] [address] [id number] PCP - General Family Medicine 10/05/24 documented as of this encounter
--- OUTSIDE RECORDS SUMMARY | 2024-11-05 10:22 | XMS_ITS | Encounter Summary ---
Author Organization [employer] Address [address] [place] [address] Care Team Providers Care Superintendent Pier Name Role Phone Alan Beyer MD Primary Care Provider [phone] Encounter Details Date Type Department Care Team (Late st Contact Info) Description 11/07/2019 Transcribed Document [facility] [place] Family [place] [facility] [place] [address] ProviderJessenia MD [address] [place] [address] Social History Tobacco Use Types Packs/Day Years Used Date Smoking Tobacco: Never Assessed Comments Unknown Sex and Gender Information Value Date Recorded Sex Assigned at Not on file Legal Sex Female 4:28 PM CDT Gender Identity Not on file Sexual Orientation Not on file documented as of this encounter Miscellaneous Notes * Cerner Conversion Note - Jessenia Alvarez MD - 11/07/2019 1:01 AM CDT [place] [id number] CHARLINE BOND :1980 Visit Time:11/06/2019 Your Visit [...] You urine culture is pending Where: [address] [facility] [address] [place] [address] Business (1) Follow Up with Follow up with specialist When Within 2 to 3 days Follow Up with ANSLEY GUADALUPE When Within 2 to 3 days Where: [address] [facility] [address] [place] [address]- Business (1) Allergies Bactrim acetaminophen-oxyCODONE clindamycin Toradol baclofen doxycycline escitalopram fentaNYL lidocaine topical 2% gel meperidine morphine penicillin (Hives) tetanus immune globulin Immunizations This Visit No Immunizations Found Medications What How Much When Instructions Next Dose acetaminophen-hydrocodone ([place] 7.5 mg-325 mg oral tablet) 1 Tablet(s) [...] range between ( 1.0 and 7.0 ) [place] #: 0.49 K/uL -- Normal range between ( 0.24 and 0.82 ) [place] #: 0.10 K/uL -- Normal range between ( 0.04 and 0.54 ) [place] %: 5.5 % -- Normal range between [...] ) Urine Bilirubin Dipstick: Negative Urine Specific Leroy: 1.019 -- Normal range between ( 1.005 [...] this condition includes: ??? Antibiotic medicine. ??? Zcok-eac-jyjklyb medicines to treat discomfort. ??? Drinking enough [...] these instructions at home: Medicines ??? Take hcqm-mjd-bohimws and prescription medicines only as told by [...] 02/07/2006 Document Revised: 04/17/2019 Document Reviewed: 11/07/2018 [employer] Patient Education ?? 2020 [employer]. Dysuria Dysuria is pain or discomfort while [...] may irritate the prostate. Medicines ??? Take zimd-yta-qjpowns and prescription medicines only as told by [...] 01/26/2005 Document Revised: 02/14/2018 Document Reviewed: 02/14/2018 [employer] Interactive Patient Education ?? 2020 [employer]. Emergency Awareness and Preventative Care STROKE is [...] Assistance with quitting is available by contacting 3-013-MLOR-NOW. This is a free resource providing counseling, [...] was given the opportunity to ask questions. Patient/Centrifugal Supervisor Name: Patient/Centrifugal Supervisor Signature: Relationship to Patient: Clinician/Hospital Centrifugal Supervisor Signature: Please Provide a Telephone Number Where You Can Be Reached: Is it Permissible To Leave a Message? Date: Electronically signed by Jannette [facility] Conversion Stable Helper Jordan at 08/31/2022 5:06 PM CDT documented in this encounter Plan of Treatment Not on file documented as of this encounter Visit Diagnoses Not on filedocumented in this encounter Care Teams Superintendent Pier Relationship Specialty Start Date End Date Alan Beyer MD [address] [place] [address] PCP - General Family Medicine 06/08/23 documented as of this encounter
--- OUTSIDE RECORDS SUMMARY | 2024-11-05 10:22 | XMS_ITS | Encounter Summary ---
Author Organization [employer] Address [address] [place] [address] Care Team Providers Care Wiener Packer Name Role Phone Alan Beyer MD Primary Care Provider [phone] Encounter Details Date Type Department Care Team (Late st Contact Info) Description 03/16/2020 Transcribed Document [facility] Family Medicine [facility] [place] [address] ProviderJessenia MD [address] [place] [address] Social History Tobacco Use Types Packs/Day Years Used Date Smoking Tobacco: Never Assessed Comments Unknown Sex and Gender Information Value Date Recorded Sex Assigned at Not on file Legal Sex Female 4:28 PM CDT Gender Identity Not on file Sexual Orientation Not on file documented as of this encounter Miscellaneous Notes * Cerner Conversion Note - Jessenia Alvarez MD - 03/16/2020 5:05 PM 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 [place] [id number] CHARLINE BOND :1980 Visit Time:03/16/2020 Your Visit [...] the nausea vomiting and diarrhea Where: [address] [place] [address]- Business (1) Allergies Bactrim acetaminophen-oxyCODONE clindamycin Toradol baclofen doxycycline escitalopram fentaNYL lidocaine topical 2% gel meperidine morphine penicillin (Hives) tetanus immune globulin Immunizations This Visit No Immunizations Found Medications What How Much When Instructions Next Dose ondansetron (Zofran ODT 4 mg oral tablet, disintegrating) 1 Tablet(s) Oral Every 4 Hours as needed for Nausea/Vomiting Duration: 3 Day(s) Pickup at [place] [address] promethazine (promethazine 25 mg oral tablet) 1 Tablet(s) Oral Every 4 Hours as needed for as needed for nausea/vomiting Duration: 3 Day(s) can make you sleepy Pickup at [place] [address] conjugated estrogens (Premarin) Vaginal Weekly cream fexofenadine (Karine) Oral Every Day ibuprofen 400 Milligram(s) Oral Every 8 Hours as needed for as needed for pain methocarbamol (Robaxin-750 oral tablet) 1 Tablet(s) Oral Every Day valACYclovir (Valtrex) 500 Milligram(s) Oral Every Day fever blister Pharmacy Information [facility] [address]: [address] [place], [place] [id number] [phone] The home medications listed are only as [...] range between ( 1.0 and 7.0 ) [place] #: 0.31 K/uL -- Normal range between ( 0.24 and 0.82 ) Eos #: 0.04 K/uL -- Normal range between ( 0.04 and 0.54 ) [place] %: 5.7 % -- Normal range between [...] virus is thought to spread mainly from tkprrb-gg-emxytr. ? Between people who are in close [...] are not readily available, use a hand unscrambler that contains at least 60% alcohol. Cover [...] are at higher risk of getting very sick.https://www.cdc.gov/coronavirus/2019-ncov/uoci-senrx-pemvmdtdrls/people-a t-kbmfhu-mefd.html Cover your mouth and nose with a cloth face cover when around others ??? You could spread COVID-19 to others even if you do not feel sick. ??? Everyone should wear a cloth face cover when they have to go out in public, for example to the grocery store or to picker tender helper other necessities. ? Cloth face coverings should [...] available, clean your hands with a hand unscrambler that contains at least 60% alcohol. Clean and disinfect ??? Clean AND disinfect frequently touched surfaces daily. This includes tables, doorknobs, light switches, countertops, handles, desks, phones, keyboards, toilets, faucets, and sinks. https://www.cdc.gov/coronavirus/2019-ncov/scxnlyp-pziecfe-uchd/disinfecting-yo ur-home.html ??? If surfaces are dirty, clean them: Use detergent or soap and water prior to disinfection. cdc.gov/coronavirus 08/23/2019 This information is not intended to replace advice given to you by your health care provider. Make sure you discuss any questions you have with your health care provider. Document Released: 08/26/2019 Document Revised: 08/29/2019 Document Reviewed: 08/26/2019 [employer] Patient Education ?? 2020 [employer]. COVID-19 Frequently Asked Questions COVID-19 (coronavirus disease) is an infection that is caused by a large family of viruses. Some viruses cause illness in people and others cause illness in animals like camels, cats, and bats. In some cases, the viruses that cause illness in animals can spread to humans. Where did the coronavirus come from? In April 2019, [place] told the World Health Organization (WHO) of several cases of lung disease (human respiratory illness). These cases were linked to an open seafood and livestock market in the city of [facility]. The link to the seafood and [...] and virus naming World Health Organization (WHO): www.who.int/emergencies/diseases/oztwz-bvfrsaqvkxg-9917/technical-guidance/nam lbf-fyk-pjiuvmlyexu-disease-(covid-2019)-zcz-hry-uqejg-igtu-tscclo-kz Who is at risk for complications from [...] relieve his or her symptoms by using vgqb-ywl-ppjpqgo medicines that treat sneezing, coughing, and runny [...] water are not available, use alcohol-based hand unscrambler. ??? Avoid touching your face, mouth, nose, [...] (CDC): www.cdc.gov/coronavirus/2019-ncov/travelers/index.html ??? World Health Organization (WHO): www.who.int/emergencies/diseases/cgtex-deofkzyodpj-4010/travel-advice Know the risks and take action to [...] water are not available, use alcohol-based hand unscrambler. ??? Cough or sneeze into a tissue, [...] in hot, soapy water or use a hotel custodian. Air-dry your dishes. ??? Wash laundry in [...] Organization (WHO) ??? Information and news updates: www.who.int/emergencies/diseases/zzyna-jdeuyephldw-1964 ??? Coronavirus health topic: www.who.int/health-topics/coronavirus ??? Questions and answers on COVID-19: www.who.int/news-room/q-a-detail/g-o-rquqfpwryxngl ??? Global tracker: who.The [place] Academy of Pediatrics (AAP) ??? Information for families: www.healthychildren.org/Slovenian/health-issues/conditions/chest-lungs/Pages/201 2-Phnxm-Nnpmmfiqizp.aspx The coronavirus situation is changing rapidly. Check [...] 08/26/2019 Document Revised: 08/26/2019 Document Reviewed: 08/26/2019 [employer] Patient Education ?? 2020 [employer]. COVID-19 COVID-19, also known as coronavirus [...] symptoms. This may include rest, fluids, and cbvw-jrx-vdzyoer medicines. Follow these instructions at home: Lifestyle [...] safe for you. General instructions ??? Take avjw-zoz-mebgkif and prescription medicines only as told by [...] are not available, use an alcohol-based hand unscrambler. ? Avoid touching your mouth, face, eyes, [...] water are not available, use alcohol-based hand unscrambler. ??? Stay away from other members of [...] 06/05/2019 Document Revised: 08/26/2019 Document Reviewed: 06/05/2019 [employer]Info Patient Education ?? 2020 [employer]. Food Choices to Help Relieve Diarrhea, [...] best for you. Grains White rice. White, Guamanian, or tin breads (fresh or toasted), including plain rolls, buns, or bagels. White pasta. Saltine, soda, or huey crackers. Pretzels. Low-fiber cereal. Cooked cereals made with water (such as cornmeal, farina, or cream cereals). Plain muffins. Matzo. [place] toast. Zwieback. Vegetables Potatoes (without the skin). [...] or bran cereals. Barley. Oats and oatmeal. [place] tortillas or taco shells. Granola. Popcorn. Vegetables Raw vegetables. Fried vegetables. Cabbage, broccoli, [place] sprouts, artichokes, baked beans, beet greens, corn, kale, legumes, peas, sweet potatoes, and yams. Potato skins. Cooked spinach and cabbage. Fruits Dried fruit, including raisins and dates. Raw fruits. Stewed or dried prunes. Canned fruits with syrup. Meat and other protein foods Fried or fatty meats. Deli meats. [place] nut butters. Nuts and seeds. Beans and lentils. [place]. Hot dogs. Sausage. Dairy High-fat cheeses. Whole milk, chocolate milk, and beverages made with milk, such as milk shakes. Qcrt-saj-nrhg. Cream. sour cream. Ice cream. Beverages Caffeinated [...] Seasoning and other foods Honey. Hot sauce. [place] powder. Gravy. Cream-based or milk-based soups. Pancakes [...] 07/20/2004 Document Revised: 08/21/2019 Document Reviewed: 04/27/2017 [employer]Info Patient Education ?? 2020 [employer]alux. Diarrhea, Adult Diarrhea is when you pass [...] or caffeine in them. ??? Eat bland, ibyw-sx-wdijzt foods in small amounts as you are able. These foods include: ? Bananas. ? Applesauce. ? Rice. ? Low-fat (lean) meats. ? [place]. ? Crackers. ??? Avoid alcohol. ??? Avoid spicy or fatty foods. Medicines ??? Take kszm-kdy-gvjyuav and prescription medicines only as told by your doctor. ??? If you were prescribed an antibiotic medicine, take it as told by your doctor. Do not stop using the antibiotic even if you start to feel better. General instructions ??? Wash your hands often using soap and water. If soap and water are not available, use a hand unscrambler. Others in your home should wash their [...] at pharmacies and stores. ??? Eat bland, mmac-yf-pdkngp foods in small amounts as you are [...] 10/16/2008 Document Revised: 10/04/2018 Document Reviewed: 10/04/2018 [employer] Patient Education ?? 2020 Novalux. Nausea and Vomiting, Adult Nausea is feeling [...] ? Low-calorie sports drinks. ??? Eat bland, dsrr-qa-ztzyfy foods in small amounts as you are able, such as: ? Bananas. ? Applesauce. ? Rice. ? Low-fat (lean) meats. ? [place]. ? Crackers. ??? Avoid drinking fluids that have a lot of sugar or caffeine in them. This includes energy drinks, sports drinks, and soda. ??? Avoid alcohol. ??? Avoid spicy or fatty foods. General instructions ??? Take phmf-kpf-sdecxqt and prescription medicines only as told by your doctor. ??? Drink enough fluid to keep your pee (urine) pale yellow. ??? Wash your hands often with soap and water. If you cannot use soap and water, use hand unscrambler. ??? Make sure that all people in [...] much water in your body. ??? Take hebt-qzu-cfglqdv and prescription medicines only as told by [...] 10/16/2008 Document Revised: 08/22/2019 Document Reviewed: 10/08/2018 [employer]Info Patient Education ?? 2020 [employer]Info Inc. Dehydration, Adult Dehydration is when there [...] lot of fat or sugar. ??? Take ftrh-mln-jcwqath and prescription medicines only as told by [...] Assistance with quitting is available by contacting 6-908-LIEONOW. This is a free resource providing counseling, support, and referral. Or you may contact your personal physician. [place] Suicide Prevention Lifeline: The National Suicide Prevention [...] was given the opportunity to ask questions. Patient/Driving School Instructor Name: Patient/Driving School Instructor Signature: Relationship to Patient: Clinician/Hospital Driving School Instructor Signature: Please Provide a Telephone Number Where You Can Be Reached: Is it Permissible To Leave a Message? Date: Electronically signed by Jannette, [facility] Conversion Care Worker Cerner at 08/31/2022 4:58 PM CDT documented in this encounter Plan of Treatment Not on file documented as of this encounter Visit Diagnoses Not on filedocumented in this encounter Care Teams Wiener Packer Relationship Specialty Start Date End Date Alan Beyer MD [address] [place] [address] PCP - General Family Medicine 06/08/23 documented as of this encounter
--- OUTSIDE RECORDS SUMMARY | 2024-11-05 10:22 | XMS_ITS | Encounter Summary ---
Author Organization [employer] Address [address] [place] [address] Care Team Providers Care Chief Of Party Name Role Phone Alan Beyer MD Primary Care Provider [phone] Encounter Details Date Type Department Care Team (Late st Contact Info) Description 11/07/2019 Transcribed Document [facility] Family Medicine [facility] [address] ProviderJessenia MD [address] [place], [place] [id number] Social History Tobacco Use Types Packs/Day Years Used Date Smoking Tobacco: Never Assessed Comments Unknown Sex and Gender Information Value Date Recorded Sex Assigned at Not on file Legal Sex Female 4:28 PM CDT Gender Identity Not on file Sexual Orientation Not on file documented as of this encounter Miscellaneous Notes * Cerner Conversion Note - Jessenia Alvarez MD - 11/07/2019 12:59 AM CDT Electronically signed by Jannette [facility] Conversion Leasing Manager Cerner at 08/31/2022 5:26 PM CDT documented in this encounter Plan of Treatment Not on file documented as of this encounter Visit Diagnoses Not on filedocumented in this encounter Care Teams Chief Of Party Relationship Specialty Start Date End Date Alan Beyer MD [address] [place] [address] PCP - General Family Medicine 06/08/23 documented as of this encounter
--- OUTSIDE RECORDS SUMMARY | 2024-11-05 10:22 | XMS_ITS | Encounter Summary ---
Author Organization [employer] Address [address] [place] [address] Care Team Providers Care Oral And Maxillofacial Surgeon Name Role Phone Alan Beyer MD Primary Care Provider [phone] Encounter Details Date Type Department Care Team (Late st Contact Info) Description 06/28/2018 Transcribed Document [facility] Family Medicine [facility] [place] [address] ProviderJessenia MD [address] [place] [address] [phone] Social History Tobacco Use Types Packs/Day Years Used Date Smoking Tobacco: Never Assessed Comments Unknown Sex and Gender Information Value Date Recorded Sex Assigned at Not on file Legal Sex Female 4:28 PM CDT Gender Identity Not on file Sexual Orientation Not on file documented as of this encounter Miscellaneous Notes * Cerner Conversion Note - Jessenia Alvarez MD - 06/28/2018 7:31 PM WATCHSTANDER [address] [place] [address] Patient Information Name: CHARLINE BOND Age: 37 Years Date of : 1980 Arrival Time: 06/28/2018 13:18:00 Diagnosis History of hysterectomy; Vaginal pain Primary Care Physician: JORGE LUIS BUENO, LIGIA-CLAUDIO Provider Information Primary Provider: YOVANA JONES Secondary Provider: RIANA CHARLINE GUAMAN has been given the following list of patient education materials, prescriptions and follow-up instructions: Follow-up Instructions: With: Address: When: DORIS BRANCH [address] [facility], [address] [place], [place] [id number] Business (1) Within 2 to 3 days Comments: Call for follow up appointment sunday morining return to er if symptoms worsen, take meds as prescribed, keep using cream, no intercourse and bed rest hope you feel better! With: Address: When: [address], [address] [place] [address] Business (1) Within 2 to 3 days Patient Education Materials: Vaginal Hysterectomy, Care After Introduction Refer to this sheet in the next [...] After the procedure, it is common to have:??? Pain. ??? Soreness and numbness in your incision areas. ??? Vaginal bleeding and discharge. ??? Constipation. ??? Temporary problems emptying the bladder. ??? Feelings of sadness or other emotions. Follow these instructions at home: Medicines??? Take [id number] and prescription medicines only as told by your health care provider. ??? If you were prescribed an antibiotic medicine, take it as told by your health care provider. Do not stop taking the antibiotic even if you start to feel better. ??? Do notdrive or operate heavy machinery while taking prescription pain medicine. Activity??? Return to your normal activities as told by your health care provider. Ask your health care provider what activities are safe for you. ??? Get regular exercise as told by your health care provider. You may be told to take short walks every day and go farther each time. ??? Do notlift anything that is heavier than 10 lb (4.5 kg). General instructions ??? Do notput anything in your vagina for 6 weeks after your surgery or as told by your health care provider. This includes tampons and douches. ??? Do nothave sex until your health care provider says you can. ??? Do nottake baths, swim, or use a hot tub until your health care provider approves. ??? Drink enough fluid to keep your urine clear or pale yellow. ??? Do not drive for 24 hours if you were given a sedative. ??? Keep all follow-up visits as told by your health care provider. This is important. Contact a health care provider if: ??? Your pain medicine is not helping. ??? You have a fever. ??? You have redness, swelling, or pain at your incision site. ??? You have blood, pus, or a bad-smelling discharge from your vagina. ??? You continue to have difficulty urinating. Get help right away if: ??? You have severe abdominal or back pain. ??? You have heavy bleeding from your vagina. ??? You have chest pain or shortness of breath. This information is not intended to replace advice given to you by your health care provider. Make sure you discuss any questions you have with your health care provider. Document Released: 08/21/2016 Document Revised: 10/05/2016 Document Reviewed: 05/14/2016 ? 2017 Elsevier Hysterectomy Information A hysterectomy is a surgery to remove your uterus. After surgery, you will no longer have periods. Also, you will not be able to get . Reasons for this surgery ??? You have bleeding that is not normal and keeps coming back. ??? You have lasting (chronic) lower belly (pelvic) pain. ??? You have a lasting infection. ??? The lining of your uterus grows outside your uterus. ??? The lining of your uterus grows in the muscle of your uterus. ??? Your uterus falls down into your vagina. ??? You have a growth in your uterus that causes problems. ??? You have cells that could turn into cancer (precancerous cells). ??? You have cancer of the uterus or cervix. Types There are 3 types of hysterectomies. Depending on the type, the surgery will: ??? Remove the top part of the uterus only. ??? Remove the uterus and the cervix. ??? Remove the uterus, cervix, and tissue that holds the uterus in place in the lower belly. Ways a hysterectomy can be performed There are 5 ways this surgery can be performed. ??? A cut (incision) is made in the belly (abdomen). The uterus is taken out through the cut. ??? A cut is made in the vagina. The uterus is taken out through the cut. ??? Three or four cuts are made in the belly. A surgical device with a camera is put through one of the cuts. The uterus is cut into small pieces. The uterus is taken out through the cuts or the vagina. ??? Three or four cuts are made in the belly. A surgical device with a camera is put through one of the cuts. The uterus is taken out through the vagina. ??? Three or four cuts are made in the belly. A surgical device that is controlled by a computer makes a visual image. The device helps the surgeon control the surgical tools. The uterus is cut into small pieces. The pieces are taken out through the cuts or through the vagina. What can I expect after the surgery? You will be given pain medicine. ??? You will need help at home for 3?5 days after surgery. ??? You will need to see your doctor in 2?4 weeks after surgery. ??? You may get hot flashes, have night sweats, and have trouble sleeping. ??? You may need to have Pap tests in the future if your surgery was related to cancer. Talk to your doctor. It is still good to have regular exams. This information is not intended to replace advice given to you by your health care provider. Make sure you discuss any questions you have with your health care provider. Document Released: 07/22/2012 Document Revised: 10/05/2016 Document Reviewed: 01/05/2014 [employer] Interactive Patient Education ? 2017 [employer] Allergies: fentaNYL; acetaminophen-oxyCODONE; Toradol; Bactrim; escitalopram; lidocaine topical 2% gel; tetanus immune globulin; baclofen; morphine; penicillin; clindamycin; doxycycline; meperidine Medication Information: Prescription Display acetaminophen-hydrocodone ([place] 5 mg-325 mg oral tablet) 1 Tab, Oral, Tab, Q6H, PRN for pain, X 3 Day(s), # 12 Tab, 0 Refill(s) metroNIDAZOLE (Flagyl 500 mg oral tablet) 1 Tab, Oral, Tab, Q12H, do not drink alcohol not to exceed 4 g/day, X 7 Day(s), # 14 Tab, 0 Refill(s), Pharmacy: [facility]/pharmacy #[id number] promethazine (promethazine 25 mg oral tablet) 1 Tab, Oral, Tab, Q4H, PRN as needed for nausea/vomiting, # 60 Tab, 0 Refill(s), Pharmacy: [facility]/pharmacy #[id number] Home Meds Display conjugated estrogens (Premarin) Oral, Daily, 0 Refill(s) fexofenadine (Karine) Oral, 0 Refill(s) ibuprofen 0 Refill(s) Laboratory or Other Results This Visit (last charted value for your 06/28/2018 visit) Hematology 06/28/18 16:05:00 WBC: 7.2 K/uL -- Normal range between ( 3.9 and 10.0 ) RBC: 3.96 Million/uL -- Normal range between ( 3.93 and 5.22 ) Hct: 40.2 % -- Normal range between ( 34.1 and 44.9 ) Hgb: 13.6 Gram/dL -- Normal range between ( 11.2 and 15.7 ) Platelet Count: 224 K/uL -- Normal range between ( 163 and 369 ) MCH: 34.3 pg -- Normal range between ( 25.6 and 32.2 ) MCHC: 33.8 Gram/dL -- Normal range between ( 32.3 and 36.5 ) MCV: 101.5 fL -- Normal range between ( 79.0 and 94.8 ) Slide Review: No Eos %: 1.1 % -- Normal range between ( 1.0 and 7.0 ) [place] #: 0.33 K/uL -- Normal range between ( 0.24 and 0.82 ) Eos #: 0.08 K/uL -- Normal range between ( 0.04 and 0.54 ) [place] %: 4.6 % -- Normal range between ( 4.7 and 12.5 ) Baso %: 0.1 % -- Normal range between ( 0.0 and 1.0 ) Baso #: 0.01 K/uL -- Normal range between ( 0.01 and 0.08 ) RDW: 12.0 % -- Normal range between ( 11.6 and 14.4 ) Neut %: 59.2 % -- Normal range between ( 34.0 and 71.0 ) Neut #: 4.24 K/uL -- Normal range between ( 1.56 and 6.13 ) Lymph %: 34.7 % -- Normal range between ( 19.3 and 53.0 ) Lymph #: 2.49 K/uL -- Normal range between ( 1.18 and 3.74 ) MPV: 10.1 fL -- Normal range between ( 9.4 and 12.4 ) IG#: 0 x10(3)/uL IG%: 0 % -- Normal range between ( 0 and 1 ) Urinalysis 06/28/18 16:47:00 Urine Nitrite: Negative Urine Leukocyte Esterase: Negative [...] Urine Bilirubin Dipstick: Negative mg/dL Urine Specific [place]: 1.012 -- Normal range between ( 1.005 and 1.030 ) Microbiology 06/28/18 16:47:00 Wet Prep: See Result General Chemistry 06/28/18 16:05:00 Creatinine Level: 0.68 mg/dL -- Normal range between ( 0.55 and 1.02 ) Sodium Level: 138 mmol/L -- Normal range between ( 136 [...] ( 1.5 and 4.5 ) Alk Phos: 97 Units/Liter -- Normal range between ( 27 and 136 ) Bun/Creatinine: 14.7 -- Normal range between ( 8.0 and 20.0 ) Calcium Level: 8.6 mg/dL -- Normal range between ( 8.5 and 10.1 ) eGFR : >60 mL/min/1.73m2 eGFR NonAfrican: >60 mL/min/1.73m2 Glucose Level: 99 mg/dL -- Normal range between ( 74 and 106 ) Blood Urea Nitrogen: 10 mg/dL -- Normal range between ( 7 and 22 ) Protein Total: 8.0 Gram/dL -- Normal range between ( 6.4 and 8.2 ) Albumin Level: 4.2 Gram/dL -- Normal range between ( 3.4 and 5.0 ) Endocrinology 06/28/18 16:47:00 HCG Urine Qualitative: Negative Computed Tomography 06/28/18 17:26:59 CT Abdomen Pelvis W: CT Abdomen Pelvis W Medication Comment: Procedures: Laboratory Orders Name Status AutoDiff Completed CBCD Completed CMP Completed UAMICIND Completed UHCG Completed WET PREP Completed Radiology Orders Name Status CT Abdomen Pelvis W Completed Cardiology Orders No cardiology orders were placed. This statement is to verify that CHARLINE BOND was seen at [facility] Emergency Department on ,06/28/2018 19:31:01. This is not a work excuse, if [...] along the way. As a healthcare provider, [facility] recommends that you stop smoking. Assistance with quitting is available by contacting 9-087-FWZB-NOW. This is a free resource providing counseling, [...] and accompanying documents are covered by [employer] Privacy Act 18 U.S.C. ???Sections 7869-4705,?? and contain information intended for the specified [...] Be sure to sign up for the My [employer] patient portal, which gives you 04/12 access to your medical information ??? including these discharge instructions ??? using your computer, smartphone, or tablet. Just go to [employer] to get started. Questions? Call . Acknowledgment [...] Providing Instructions: Emergency Physician: Electronically signed by Trevon Bhatia Conversion Strategy Execution Consultant [place] at 08/31/2022 5:25 PM CDT documented in this encounter Plan of Treatment Not on file documented as of this encounter Visit Diagnoses Not on filedocumented in this encounter Care Teams Oral And Maxillofacial Surgeon Relationship Specialty Start Date End Date Alan Beyer MD [address] [place] [address] PCP - General Family Medicine 06/08/23 documented as of this encounter
--- OUTSIDE RECORDS SUMMARY | 2024-11-05 10:22 | XMS_ITS | Encounter Summary ---
Author Organization [employer] Address [address] [place] [address] Care Team Providers Care Levee Superintendent Name Role Phone Alan Beyer MD Primary Care Provider Encounter Details Date Type Department Care Team (Late st Contact Info) Description 07/04/2018 Transcribed Document [facility] Family Medicine [facility] [place] [address] ProviderJessenia MD [address] [place], [place] [id number] Social History Tobacco Use Types Packs/Day Years Used Date Smoking Tobacco: Never Assessed Comments Unknown Sex and Gender Information Value Date Recorded Sex Assigned at Not on file Legal Sex Female 4:28 PM CDT Gender Identity Not on file Sexual Orientation Not on file documented as of this encounter Miscellaneous Notes * Cerner Conversion Note - Jessenia ProviderMD - 07/04/2018 3:31 PM LIGHT BULB TESTER Electronically signed by Jannette [facility] Conversion Automobile Sales Representative Cerner at 08/31/2022 5:01 PM CDT documented in this encounter Plan of Treatment Not on file documented as of this encounter Visit Diagnoses Not on filedocumented in this encounter Care Teams Levee Superintendent Relationship Specialty Start Date End Date Alan Beyer MD [address] [place] [address] PCP - General Family Medicine 06/08/23 documented as of this encounter
--- OUTSIDE RECORDS SUMMARY | 2024-11-05 10:22 | XMS_ITS | Clinical Summary ---
Author Organization [facility] Address [address] [place] [address] Phone Care Team Providers Care Vacuum Drier Tender Name Role Phone Alan Beyer MD Primary Care Provider [phone] Allergies Active Allergy Reactions Criticality Noted Date Comments Baclofen Hives High 07/20/2016 hives and cant breath Clindamycin Hives,Anaphylaxis High 07/20/2016 nausea and extreme diarrhea Doxycycline Nausea Only 08/02/2022 severe diarrhea Escitalopram Other (See Comments) 06/08/2023 Jerking movements and tremors Gold Keratinate Other (See Comments) Low 12/20/2018 Ketorolac Anxiety,Other (See Comments) Low 07/20/2016 Lidocaine Other (See Comments),Rash Low 03/23/2022 9severe swelling, itching, rash Meperidine Anaphylaxis,Hives High 01/06/2013 hallucinations and angry Morphine Anaphylaxis High 08/02/2022 Nickel Hives,Other (See Comments) High 09/21/2021 Oxycodone-Acetaminophen Nausea And Vomiting High 01/2017 hives hives 13throws up and itching throws up and itching Penicillins Anaphylaxis,Hives High 07/20/2016 and hives Pt has tolerated cefoxitin in 06/30, 06/01, and trying cefazolin hives and hives Sulfa (Sulfonamide Antibiotics) Other (See Comments),Anaphylax is High 03/29/2021 trouble breathing. Can take cyclosporins Sulfamethoxazole-Trimet hoprim Other (See Comments) Low 12/20/2018 Tetanus Toxoid, Adsorbed Other (See Comments) 08/02/2022 swelling - anaphalaxis Tetracyclic Antidepressants Other (See Comments) 08/02/2022 antidepressants Medications * This document contains information received from the source organization and may not represent a complete record from that organization. busPIRone (BUSPAR) 15 mg Oral Tablet 3 Active cloNIDine (CATAPRES) 0.1 mg Oral Tablet 3 Active cyanocobalamin 1,000 mcg Oral Tablet Take 1,000 mcg by mouth daily. Active ergocalciferol (DRISDOL) 1,250 mcg (50,000 unit) Oral Capsule Take 50,000 Units by mouth every 7 days. Active fluconazole (DIFLUCAN) 100 mg Oral Tablet 3 Active fluticasone propionate (FLONASE) 50 mcg/actuation Nasl Ralph, Suspension 3 Active fUROsemide (LASIX) 20 mg Oral Tablet 3 Active hydrOXYzine (ATARAX) 25 mg Oral Tablet 3 Active omeprazole (PRILOSEC) 40 mg Oral Capsule, Delayed Release(E.C.) 2 Active ondansetron (ZOFRAN-ODT) 4 mg Oral Tablet, Rapid Dissolve 3 Active promethazine (PHENERGAN) 25 mg Oral Tablet 3 Active tocopherol acetate (VITAMIN E) 200 unit Oral Capsule Take 200 Units by mouth daily. Active metroNIDAZOLE (METROCREAM) 0.75 % Top CreamIndications :Rosacea Apply topically to affected area of face BID. 45 g 2 3 Active clindamycin (CLEOCIN T) 1 % Top GelIndications:H idradenitis suppurativa Apply topically to affected area of skin on thighs and buttocks daily after washing with benzoyl peroxide. 60 g 2 3 Active hydrocortisone 2.5 % Top CreamIndications :Seborrheic dermatitis Apply topically to affected area of skin along sides of nose BID PRN for up to 1 week, followed by 1 week off. Repeat as needed. 28 g 1 3 Active mupirocin (BACTROBAN) 2 % Top OintmentIndicati ons:Nasal septal perforation,Nasa l crusting Apply 4 oz topically [address] 1.5-2 inches of ointment in each 240ml bottle of nasal saline irrigation. 60 g 2 3 Active VENTOLIN HFA 90 mcg/actuation Inhl HFA Aerosol Inhaler 3 Active mupirocin (BACTROBAN) 2 % Top OintmentIndicati ons:Nasal crusting Apply 4 oz topically [address] 1.5-2 inches of ointment in each 240ml bottle of nasal saline irrigation. 60 g 2 3 Active tacrolimus (PROTOPIC) 0.1 % Top OintmentIndicati ons:Seborrheic dermatitis Apply topically to affected skin on the face BID PRN 60 g 1 5 Active ketoconazole (NIZORAL) 2 % Top CreamIndications :Seborrheic dermatitis Apply topically to affected skin on the face BID PRN. 60 g 2 5 Active methocarbamoL (ROBAXIN) 750 mg Oral Tablet Take 1 Tablet by mouth 3 times daily as needed for Pain for up to 30 days. 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 [place] [address] Aleks Cali MD Left flank pain (Primary Dx) Discharge Disposition: Home or Self Care 11/03/2024 Travel 10/20/2024 8:00 AM EDT Office Visit [facility] [address] [place] [id number] Shira Ambrose PA-C Bilateral carpal tunnel syndrome (Primary Dx) 10/20/2024 Telephone [place] [phone] Ynes Hoffman, Grain Elevator Agent Other 10/18/2024 12:30 PM [place] [address] Moisés Katz PA Left hand pain 10/18/2024 12:15 PM EDT Office Visit [facility] [address] [address] Moisés Katz PA Bilateral carpal tunnel syndrome (Primary Dx); Left hand pain 10/05/2024 8:00 PM EDT - 10/05/2024 9:[address] [facility] [address] [facility] [facility] [place] [address] Andrés Donahue MD Injury of right hand, initial encounter (Primary Dx) Discharge Disposition: Home or Self Care 10/05/2024 Travel from Last 3 Months Medical History Medical History Date Comments Kidney stones Anxiety Carpal tunnel syndrome Social History Tobacco Use Types Packs/Day Years [...] on file Sexual Orientation Not on file Obstetrics History Last Filed Vital Signs Vital Sign Reading Time Taken Comments Blood Pressure 129/84 11/03/2024 2:00 PM EDT Pulse 97 11/03/2024 11:15 AM EDT Temperature 36.5 C (97.7 F) 11/03/2024 11:06 AM EDT Respiratory Rate 20 11/03/2024 11:15 AM EDT Oxygen Saturation 98% 11/03/2024 2:00 PM EDT Inhaled Oxygen Concentration - - Weight 93.9 kg (207 lb) 11/03/2024 11:06 AM EDT Height 165.1 cm (5' 5 ) 05/28/2024 2:07 PM EST Body Mass Index 34.45 05/28/2024 2:07 PM EST Plan of Treatment Upcoming Encounters Date Type Department Care Team (Late st Contact Info) Description 11/19/2024 8:30 AM EDT Office Visit [facility] [address] [place] [address] Shira Ambrose PA-C [address] [place] [address] Health Maintenance Due Date Last Done Comments Annual Wellness Exam 1985 DTaP/TDaP/Td (1 - Tdap) 2001 Hepatitis B Vaccine (1 of 3 - 19+ 3-dose series) 2001 Cervical Cancer Screening 11/06/2003 Pap Smear 11/06/2003 HPV/Pap Cotest 2012 Breast Cancer Screening 2022 COVID-19 Vaccine ( season) 2024 07/29/2021, 02/28/2021, 02/03/2021 Pneumococcal Vaccine 0-49 Aged Out 2016, 02/13/2017, 02/16/2016 No longer eligible based on patient's age to complete this topic Influenza Vaccine Completed 01/23/2024, , 02/03/2021, Additional history exists Meningococcal B Vaccine Aged Out No l onger eligible based on patient's age to complete this topic Procedures Procedure Name Priority Date/Time Associated Diagnosis Comments EMG Routine 11/04/[address] ABD PEL ED FAST W CONTRAST STAT 11/03/2024 12:23 PM EDT HUMAN CHORIONIC GONADOTROPIN QUANTITATIVE STAT 11/03/2024 11:36 AM EDT COMPREHENSIVE METABOLIC PANEL STAT 11/03/2024 11:36 AM EDT CBC WITH DIFF STAT 11/03/2024 11:36 AM EDT SALINE LOCK IV STAT 11/03/2024 11:21 AM EDT URINALYSIS REFLEX STAT 11/03/2024 11: 16 AM EDT UA W/REFLEX TO CULTURE STAT 11:16 AM EDT EXTRA BROUSSARD URINE CX STAT 11/03/2024 1 1:16 AM EDT XR HAND LEFT PA LATERAL AND OBLIQUE Routine 10/18/2024 12:27 PM EDT Left hand pain XR HAND RIGHT PA LATERAL AND OBLIQUE DAVID 10/05/2024 9:00 PM EDT from Last 3 Months Results * (ABNORMAL) EMG (11/04/2024) Impressions SEP [...] this exam and then discarded. us Shira T Peak PA-C NEUROLOGY ORDERABLES Yvonne l Result SEP OFFICE * CT ABD PEL ED FAST W [...] IMG CT ORDERABLES Final Res ult * (ABNORMAL) CBC WITH DIFF (11/03/2024 11:36 AM EDT) WBC 6.6 3.7 - 10.3 x10(3)/mcL 11/03/2024 11:47 AM EDT [facility] RBC 3.56(L) 3.90 - 5.20 x10(6)/mcL 11/03/2024 11:47 AM EDT [facility] Hgb 11.6 11.2 - 15.7 g/dL 11/03/2024 11:47 AM EDT [facility] Hct 34.9 34.0 - 45.0 % 11/03/2024 11:47 AM EDT [facility] MCV 98.0 80.0 - 100.0 fL 11/03/2024 11:47 AM EDT [facility] MCH 32.6 26.0 - 34.0 pg 11/03/2024 11:47 AM EDT [facility] MCHC 33.2 30.7 - 35.5 g/dL 11/03/2024 11:47 AM EDT [facility] RDW 12.4 <=14.9 % 11/03/2024 11:47 AM EDT [facility] Platelet 264 155 - 369 x10(3)/mcL 11/03/2024 11:47 AM EDT [facility] MPV 9.9 8.8 - 12.5 fL 11/03/2024 11:47 AM EDT [facility] Neut Percent 61.1 % 11/03/2024 11:47 AM EDT [facility] Comment:Neutrophils equals s egs plus bands Imm Gran% 0.2 % 11/03/2024 11:47 AM EDT [facility] Comment:Automated count of m etamyelocytes, myelocytes and promyelocytes. Lymph Percent 28.5 % 11/03/2024 11:47 AM EDT [facility] [place] Percent 7.6 % 11/03/2024 11:47 AM EDT [facility] Eos Percent 2.1 % 11/03/2024 11:47 AM EDT [facility] Baso Percent 0.5 % 11/03/2024 11:47 AM EDT [facility] Neut # 4.0 1.6 - 6.1 x10(3)/[facility] 11/03/2024 11:47 AM EDT [facility] Comment:Neutrophils equals s egs plus bands IMMGRAN# 0.0 0.0 - 0.1 x10(3)/[facility] 11/03/2024 11:47 AM EDT [facility] Comment:Automated count of m etamyelocytes, myelocytes and promyelocytes. An absolute IG <0.1 is reported as 0.0. Lymph # 1.9 1.2 - 3.9 x10(3)/[facility] 11/03/2024 11:47 AM EDT [facility] [place] # 0.5 0.3 - 0.9 x10(3)/[facility] 11/03/2024 11:47 AM EDT [facility] Eos# 0.1 0.0 - 0.5 x10(3)/[facility] 11/03/2024 11:47 AM EDT [facility] Baso # 0.0 0.0 - 0.1 x10(3)/[facility] 11/03/2024 11:47 AM EDT [facility] Blood VENOUS BLOOD / Unknown Venipuncture / Unknown 11/03/2024 11:36 AM EDT 11/03/2024 11:42 AM EDT us Ynes Zayas PA-C HEMATOLOGY ORDERABLES Final Result [facility] [address] [facility] [place] [address] * HUMAN CHORIONIC GONADOTROPIN QUANTITATIVE (11/03/2024 11:36 AM EDT) [facility] Hcg Quant <1 <5 mIU/mL 11/03/2024 11:59 AM EDT [facility] Blood VENOUS BLOOD / Unknown Venipuncture / Unknown 11/03/2024 11:36 AM EDT 11/03/2024 11:42 AM EDT Narrative [facility] - 11/03/2024 11:59 AM EDT Female [...] Ynes Zayas PA-C CHEMISTRY ORDERABLES Final Result [facility] [address] [place] [address] * (ABNORMAL) COMPREHENSIVE METABOLIC PANEL (11/03/2024 11:36 AM EDT) Sodium 138 136 - 145 mmol/L 11/03/2024 12:03 PM EDT [facility] Potassium 4.5 3.5 - 5.0 mmol/L 11/03/2024 12:03 PM EDT [facility] Chloride 104 98 - 107 mmol/L 11/03/2024 12:03 PM EDT [facility] Total CO2 24 22 - 29 mmol/L 11/03/2024 12:03 PM EDT [facility] Anion Gap 10 7 - 16 mmol/L 11/03/2024 12:03 PM EDT [facility] Calcium 8.6 8.6 - 10.4 mg/dL 11/03/2024 12:03 PM EDT [facility] Glucose Lvl 102(H) 70 - 99 mg/dL 11/03/2024 12:03 PM EDT [facility] BUN 13 6 - 20 mg/dL 11/03/2024 12:03 PM EDT [facility] Creatinine 0.75 0.51 - 1.30 mg/dL 11/03/2024 12:03 PM EDT [facility] Albumin 4.2 3.5 - 5.2 gm/dL 11/03/2024 12:03 PM EDT [facility] Total Protein 7.2 6.4 - 8.3 gm/dL 11/03/2024 12:03 PM EDT [facility] Bili Total <0.2(L) 0.2 - 1.3 mg/dL 11/03/2024 12:03 PM EDT [facility] ALT 13 <=41 U/L 11/03/2024 12:03 PM EDT [facility] AST 20 <=40 U/L 11/03/2024 12:03 PM EDT [facility] Alk Phos 93 36 - 123 U/L 11/03/2024 12:03 PM EDT [facility] eGFR (CKD-EPIcr 2020) 102 >=60 mL/min/1.7 3 m2 11/03/2024 12:03 PM EDT [facility] Comment:Estimated GFR was ca lculated using the CKD-EPIcr (2020) equation refit without race. The equation is recommended by the National Kidney Foundation - [place] [employer] Neph[employer] Task Force. Blood VENOUS BLOOD / Unknown Venipuncture / Unknown 11/03/2024 11:36 AM EDT 11/03/2024 11:42 AM EDT Ynes Zayas PA-C CHEMISTRY ORDERABLES Final Result [facility] [address] [place] [address] * URINALYSIS REFLEX (11/03/2024 11:16 AM EDT) UA Color Yellow 11/03/2024 11:24 AM EDT [facility] UA Appear Clear Clear 11/03/2024 11:24 AM EDT [facility] UA Glucose Negative Negative mg/dL 11/03/2024 11:24 AM EDT [facility] UA Ketones Negative Negative mg/dL 11/03/2024 11:24 AM EDT [facility] UA Blood Negative Negative 11/03/2024 11:24 AM EDT [facility] UA pH 6.0 5.0 - 8.0 pH 11/03/2024 11:24 AM EDT [facility] UA Protein Negative Negative mg/dL 11/03/2024 11:24 AM EDT [facility] UA Urobilinogen 0.2 <=1 mg/dL 11:24 AM EDT [facility] UA Bili Negative Negative 11/03/2024 11:24 AM EDT [facility] UA Nitrite Negative Negative 11/03/2024 11:24 AM EDT [facility] UA Leuk Est Negative Negative 11/03/2024 11:24 AM EDT [facility] UA Spec Grav 1.010 1.001 - 1.035 no units 11/03/2024 11:24 AM EDT [facility] Comment:Reference range keith d for random specimens only. Urine STRUCTURE OF URINARY TRACT PROPER / Unknown 11/03/2024 11:16 AM EDT 11/03/2024 11:21 AM EDT Ynes Zayas PA-C URINE ORDERABLES Final Resu lt Performing Organization Address [facility] de Phone Number [facility] [address] [place] [address] * EXTRA BROUSSARD URINE CX (11/03/2024 11:16 AM EDT) Urine STRUCTURE OF URINARY TRACT PROPER / Unknown 11/03/2024 11:16 AM EDT 11/03/2024 11:21 AM EDT Ynes HERNANDEZ-C MICROBIOLOGY - GENERAL ORDE RABLES Final Result Performing Organization Address [facility] de Phone Number [facility] [address] [place] [address] * XR HAND LEFT PA LATERAL AND OBLIQUE (10/18/2024 12:27 PM EDT) Narrative Frankie Isabelle - 10/18/2024 12:28 PM EDT Please see physician's note from office encounter for x-ray imaging result Moisés HERNANDEZ IMG DIAGNOSTIC IMAGING ORDER DONNA Final Result * XR HAND RIGHT PA LATERAL AND [...] contactthe office of the ordering clinician. Marleny PUTNA[facility] IMG DIAGNOSTIC IMAGING ORDERA BLES Final Result from Last 3 Months Insurance [employer] [id number] [address] [facility] [id number] MDR [facility] [id number] [employer] [facility] [facility] [id number] MDR [facility] [id number] MDR Care Teams Vacuum Drier Tender Relationship Specialty Start Date End Date Alan Beyer MD [address] [place] [address] PCP - General Family Medicine 10/05/24
--- OUTSIDE RECORDS SUMMARY | 2024-11-05 10:22 | XMS_ITS | Encounter Summary ---
Author Organization [employer] Address [address] [place] [address] Care Team Providers Care Sand Polisher Name Role Phone Alan Beyer MD Primary Care Provider [phone] Encounter Details Date Type Department Care Team (Late st Contact Info) Description 07/04/2018 Transcribed Document [facility] Family [place] [address] ProviderJessenia MD [address] [place] [address] Social History Tobacco Use Types Packs/Day Years Used Date Smoking Tobacco: Never Assessed Comments Unknown Sex and Gender Information Value Date Recorded Sex Assigned at Not on file Legal Sex Female 4:28 PM CDT Gender Identity Not on file Sexual Orientation Not on file documented as of this encounter Miscellaneous Notes * Cerner Conversion Note - Jessenia Alvarez MD - 07/04/2018 1:08 PM SOLAR PROJECT MANAGER Pain Assessment Entered On: 07/04/2018 13:49 EST Performed On: 07/04/2018 13:48 EST by SHAMA CASTILLO Rn Intervention Information: HYDROmorphone Performed by Luis Choudhury Rn on 07/04/2018 13:18:00 EST HYDROmorphone,1mg IV Push,Peripheral Line 1 Pain Assessment Pain Assessment : Follow-up assessment Pain Scale Used : 0-10 Scale SHAMA CASTILLO Rn - 07/04/2018 13:49 EST Pain Scale Intensity : 4 SHAMA CASTILLO Rn - 07/04/2018 13:49 EST Image 4 - Images currently included in the form version of this document have not been included in the text rendition version of the form. documented in this encounter Plan of Treatment Not on file documented as of this encounter Visit Diagnoses Not on filedocumented in this encounter Care Teams Sand Polisher Relationship Specialty Start Date End Date Alan Beyer MD [address] [place] [address] PCP - General Family Medicine 06/08/23 documented as of this encounter
--- OUTSIDE RECORDS SUMMARY | 2024-11-05 10:22 | XMS_ITS | Encounter Summary ---
Author Organization [employer] Address [address] [place] [address] Care Team Providers Care Perfect Binder Operator Name Role Phone Alan Beyer MD Primary Care Provider [phone] Encounter Details Date Type Department Care Team (Late st Contact Info) Description 07/04/2018 Transcribed Document [facility] [place] Family [place] [facility] [place] [address] ProviderJessenia MD [address] [place] [address] Social History Tobacco Use Types Packs/Day [...] Jessenia Alvarez MD - 07/04/2018 11:09 AM WHOLESALE ACCOUNT EXECUTIVE ED Triage Entered On: 07/04/2018 11:22 EST Performed On: 07/04/2018 11:18 EST by RAJESH MALDONADO SHIPPING RECEIVING CLERK Triage Across the Room Triage Date/Time : 07/04/2018 11:18 EST Chief Complaint : PT is 3 wks post op from hysterectomy, states something under right lower incision snapped like a rubberband last night , called Dr Flores this morning and was told to come to ED, pain rated 8/10 RAJESH MALDONADO RN - 07/04/2018 11:18 EST DCP GENERIC CODE Tracking Acuity : 3 - Urgent Tracking Group : [facility] RAJESH MALDONADO RN - 07/04/2018 11:18 EST Mode of Arrival : Ambulatory Transported to ED by : Private vehicle To Room Via : Ambulate Accompanied By : Unaccompanied ED Vital Signs : Document Height & Weight : Document ED Allergies : Document ED Reason for Visit : Document Tetanus Immunization : Unknown RAJESH MALDONADO RN - 07/04/2018 11:18 EST Infectious Disease History Infectious Disease History : Chicken pox/Shingles, Herpes Fever/Chills Last 48 Hours : No Travel To Regions with Travel Advisories : No Travel Outside [place] Within Last 30 Days : No Contact With Traveler to Advisory Region : No Tuberculosis Symptoms : None RAJESH MALDONADO RN - 07/04/2018 11:18 EST Vital Signs ED Temperature Source : Oral Temperature Mode : Fahrenheit Temperature, Fahrenheit : 98.9 Deg F Clinical Temperature, C : 37.2 Deg C Peripheral Pulse Rate : 99 bpm Respiratory Rate : 18 Breaths/Min Systolic Blood Pressure : 132 mmHg Diastolic Blood Pressure : 89 mmHg Oxygen Saturation : 100 % RAJESH MALDONADO RN - 07/04/2018 11:18 EST Allergy (As Of: 07/04/2018 11:22:12 EST) Allergies (Active) acetaminophen-oxyCODONE Estimated Onset Date: Unspecified ; Comments: Comment 1: throws up and itching ; Created By: Breanna Ivey Rn; Reaction Status: Active ; Category: Drug ; Substance: acetaminophen-oxyCODONE ; Severity: Severe ; Updated By: Breanna Ivey Rn; Source: Patient ; Reviewed Date: 07/04/2018 11:21 EST baclofen Estimated Onset Date: Unspecified ; Comments: Comment 1: hives and cant breath ; Created By: Breanna Ivey Rn; Reaction Status: Active ; Category: Drug ; Substance: baclofen ; Type: Allergy ; Updated By: Breanna Ivey Rn; Reviewed Date: 07/04/2018 11:21 EST Bactrim Estimated Onset Date: Unspecified ; Comments: Comment 1: hives not breathing ; Created By: Breanna Ivey Rn; Reaction Status: Active ; Category: Drug ; Substance: Bactrim ; Type: Allergy ; Severity: Severe ; Updated By: Breanna Ivey Rn; Source: Patient ; Reviewed Date: 07/04/2018 11:21 EST clindamycin Estimated Onset Date: Unspecified ; Created By: Isi Khoury Rn; Reaction Status: Active ; Category: Drug ; Substance: clindamycin ; Type: Allergy ; Severity: Severe ; Updated By: Isi Khoury Rn; Reviewed Date: 07/04/2018 11:21 EST doxycycline Estimated Onset Date: Unspecified ; Comments: Comment 1: hives and projectile vomiting ; Created By: Breanna Ivey Rn; Reaction Status: Active ; Category: Drug ; Substance: doxycycline ; Type: Allergy ; Updated By: Breanna Ivey Rn; Reviewed Date: 07/04/2018 11:21 EST escitalopram Estimated Onset Date: Unspecified ; Comments: Comment 1: unknown ; Created By: Breanna Ivey Rn; Reaction Status: Active ; Category: Drug ; Substance: escitalopram ; Type: Allergy ; Updated By: Breanna Ivey Rn; Reviewed Date: 07/04/2018 11:21 EST fentaNYL Estimated Onset Date: Unspecified ; Comments: Comment 1: hallucinate and cry ; Created By: Breanna Ivey Rn; Reaction Status: Active ; Category: Drug ; Substance: fentaNYL ; Type: Allergy ; Updated By: Breanna Ivey Rn; Reviewed Date: 07/04/2018 11:21 EST lidocaine topical 2% gel Estimated Onset Date: Unspecified ; Comments: Comment 1: severe swelling, itching, rash ; Created By: Breanna Ivey Rn; Reaction Status: Active ; Category: Drug ; Substance: lidocaine topical 2% gel ; Type: Allergy ; Updated By: Breanna Ivey Rn; Reviewed Date: 07/04/2018 11:21 EST meperidine Estimated Onset Date: Unspecified ; Comments: Comment 1: hallucinations and angry ; Created By: Breanna Ivey Rn; Reaction Status: Active ; Category: Drug ; Substance: meperidine ; Type: Allergy ; Updated By: Breanna Ivey Rn; Reviewed Date: 07/04/2018 11:21 EST morphine Estimated Onset Date: Unspecified ; Comments: Comment 1: severe itching ; Created By: Breanna Ivey Rn; Reaction Status: Active ; Category: Drug ; Substance: morphine ; Type: Allergy ; Updated By: Breanna Ivey Rn; Reviewed Date: 07/04/2018 11:21 EST penicillin Estimated Onset Date: Unspecified ; Comments: Comment 1: hives ; Created By: Breanna Ivey Rn; Reaction Status: Active ; Category: Drug ; Substance: penicillin ; Type: Allergy ; Updated By: Breanna Ivey Rn; Reviewed Date: 07/04/2018 11:21 EST tetanus immune globulin Estimated Onset Date: Unspecified ; Comments: Comment 1: adverse reaction I get tetanus and my body will swell up ; Created By: Breanna Ivey Rn; Reaction Status: Active ; Category: Drug ; Substance: tetanus immune globulin ; Type: Allergy ; Updated By: Breanna Ivey Rn; Reviewed Date: 07/04/2018 11:21 EST Toradol Estimated Onset Date: Unspecified ; Comments: Comment 1: feels like a softball in chest and my chest goes numb ; Created By: Breanna Ivey Rn; Reaction Status: Active ; Category: Drug ; Substance: Toradol ; Type: Allergy ; Updated By: Breanna Ivey Rn; Reviewed Date: 07/04/2018 11:21 EST Diagnosis Control ED (As Of: 07/04/2018 11:22:12 EST) Problems(Active) Anxiety (SNOMED CT :06037531 ) Name of Problem: Anxiety ; Recorder: ERICKA ISSA RN; Confirmation: Confirmed ; Classification: Medical ; Code: [id number] ; Contributor System: [employer] ; Last Updated: 07/26/2015 22:28 EDT ; Life Cycle Date: 07/26/2015 ; Life Cycle Status: Active ; Vocabulary: SNOMED CT Endometriosis, vagina (SNOMED CT :79065962 ) Name of Problem: Endometriosis, vagina ; Recorder: Breanna Ivey Rn; Confirmation: Confirmed ; Classification: Medical ; Code: 63102204 ; Contributor System: [employer] ; Last Updated: 05/24/2018 10:54 EST ; Life Cycle Date: 05/24/2018 ; Life Cycle Status: Active ; Vocabulary: SNOMED CT Kidney stones (SNOMED CT :405414739 ) Name of Problem: Kidney stones ; Recorder: KAYY ANDREW; Confirmation: Confirmed ; Classification: Medical ; Code: [id number] ; Contributor System: [employer] ; Last Updated: 06/06/2016 9:30 EST ; Life Cycle Date: 06/06/2016 ; Life Cycle Status: Active ; Vocabulary: SNOMED CT Migraine (SNOMED CT :07247294 ) Name of Problem: Migraine ; Recorder: ERICKA ISSA RN; Confirmation: Confirmed ; Classification: Medical ; Code: [id number] ; Contributor System: [employer] ; Last Updated: 07/26/2015 22:28 EDT ; Life Cycle Date: 07/26/2015 ; Life Cycle Status: Active ; Vocabulary: SNOMED CT Shoulder pain, left (SNOMED CT :60806489 ) Name of Problem: Shoulder pain, left ; Recorder: Breanna Ivey Rn; Confirmation: Confirmed ; Classification: Medical ; Code: [id number] ; Contributor System: [employer] ; Last Updated: 05/24/2018 10:53 EST ; Life Cycle Date: 05/24/2018 ; Life Cycle Status: Active ; Vocabulary: SNOMED CT Diagnoses(Active) Surgical problem reevaluation Date: 07/04/2018 ; Diagnosis Type: Reason For Visit ; Confirmation: Complaint of ; Clinical Dx: Surgical problem reevaluation ; Classification: Medical ; Clinical Service: Emergency medicine ; Code: PNED ; Probability: 0 ; Diagnosis Code: [id number] ED Height and Weight Height Source : Stated Height Entry Format : [place] Height, Feet : 5 ft(Converted to: 152 cm, 60 Inch) Height, Inches : 5 Inch(Converted to: 0 ft 5 Inch, 12.70 cm) Clinical Height : 165.1 cm Weight Source, ED : Standing scale Weight Entry Format : [place] Weight, Pounds : 160 lb Clinical Dosing Weight : 72.73 kg Body Surface Area (BSA) : 1.8 m2 Body Mass Index : 26.7 kg/m2 (HI) [place] Body Weight (IBW) : 56.59 kg RAJESH MALDONADO RN - 07/04/2018 11:18 EST ED Influenza/Pneumoccocal Vaccine Influenza Immunization, Current Season : Yes Previous Vaccines from Immunization Schedule : No qualifying data available. RAJESH MALDONADO RN - 07/04/2018 11:18 EST documented in this encounter Plan of Treatment Not on file documented as of this encounter Visit Diagnoses Not on filedocumented in this encounter Care Teams Perfect Binder Operator Relationship Specialty Start Date End Date Alan Beyer MD [address] [place] [address] PCP - General Family Medicine 06/08/23 documented as of this encounter
--- NOTE | 2024-11-05 10:30 | MM_ITS ---
PROCEDURE INFORMATION: Exam: MG Bilateral Screening 3D Mammography Exam date and time: 11/05/2024 10:14 AM Age: 44 years old Clinical indication: Screening examination. TECHNIQUE: Imaging protocol: Bilateral Screening tomosynthesis and 2D mammography including computer-aided detection (CAD) when performed. COMPARISON: No relevant prior studies available. FINDINGS: MAMMOGRAPHY: Breast composition: There are scattered areas of fibroglandular density. Mass: None. Architectural distortion: None. Calcifications: No suspicious calcifications. Asymmetric density: None. Skin thickening: None. Axillary adenopathy: None. IMPRESSION: No mammographic evidence of malignancy. Annual screening is recommended unless otherwise clinically indicated. ASSESSMENT: BI-RADS Category 1: Negative.
--- NOTE | 2024-11-05 11:00 | US_ITS ---
PROCEDURE: US TRANSVAGINAL CLINICAL INDICATION: pelvic pain COMPARISON: CT CT ABDOMEN PELVIS W CON from 06/02/2024 US US TRANSVAGINAL from 06/02/2024 FINDINGS: Transvaginal sonographic images of the pelvis were obtained. UTERUS: The uterus is surgically absent. The vaginal vault is intact. LEFT OVARY: Surgically absent. RIGHT OVARY: 3.3cmx 1.9 cmx1.8 cm with a volume of 5.8ml. There is a follicle in the right ovary that measures 1.1 cm x 1.6 cm x 1.2 cm. The right ovary is seen and appears normal. Doppler flow to the right ovary is seen. There is trace fluid in the cul-de-sac. IMPRESSION: 1. The uterus is surgically absent. The vaginal vault is intact. 2. The left ovary is surgically absent and the left adnexa appears normal. The right ovary contains a follicle measuring 1.6 cm. 3. There is a trace of fluid in cul-de-sac. Dictated by: Pardeep Dela Cruz MD 11/06/2024 03:34 Pardeep Dela Cruz MD in [place] 11/06/2024 03:34
== END 2024-11-05 23:59 | disposition home or self-care (01) ==
LOC: RAD 10:14
PROVIDERS: PCP Family Medicine; Visit Provider Obstetrics & Gynecology
DX: Z12.31 Encounter for screening mammogram for malignant neoplasm of breast (principal); N83.01 Follicular cyst of right ovary; R92.323 Mammographic fibroglandular density, bilateral breasts; Z90.721 Acquired absence of ovaries, unilateral; Z90.710 Acquired absence of both cervix and uterus
CPT/HCPCS: 76830; 77063; 77067

== ENCOUNTER 2024-11-27 14:39 | Outpatient (CLI) | payer MEDICAID, SELFPAY ==
--- OUTSIDE RECORDS SUMMARY | 2024-10-05 20:00 | XMS_ITS | Encounter Summary ---
Author Organization [place] [address] Care Team Providers Care Floor Nurse Name Role Phone Alan Beyer MD Primary Care Provider [phone] Reason for Visit * Reason Comments Edema PT reports right salguero d swelling & pain. PT doesn't know if she injured it or not. Encounter Details Date Type Department Care Team (Late st Contact Info) Description 10/05/2024 8:00 PM EDT - 10/05/2024 9:47 PM EDT Emergency [facility] [address] [place] [place] [address] Andrés Donahue MD [address] [place] [id number] Injury of right hand, initial encounter (Primary Dx) Discharge Disposition: Home or Self Care Social History Tobacco Use Types Packs/Day Years Used Date Smoking Tobacco: Never Passive Smoke Exposure: Current Smokeless Tobacco: Never Tobacco Cessation:Counseling Given: Not Answered Alcohol Use Standard Drinks/Week Comments Not Currently 0 (1 standard drink = 0.6 oz pur e alcohol) Comments No Sex and Gender Information Value Date Recorded Sex Assigned at Not on file Legal Sex Female 10:14 AM EST Gender Identity Not on file Sexual Orientation Not on file documented as of this encounter Last Filed Vital Signs Vital Sign Reading Time Taken Comments Blood Pressure 180/103 10/05/2024 7:57 PM EDT Pulse 98 10/05/2024 7:54 PM EDT Temperature 36.8 C (98.3 F) 10/05/2024 8:00 PM EDT Respiratory Rate 16 10/05/2024 7:54 PM EDT Oxygen Saturation 99% 10/05/2024 7:54 PM EDT Inhaled Oxygen Concentration - - Weight - - Height - - Body Mass Index - - documented in this encounter Functional Status * Suicide Severity Rating Answer Date of Assessment Author No Risk 10/05/2024 7:56 PM EDT Nakita Mojiac RN * [place] Suicide Severity Rating Scale (Q shift for moderate and high) Question Answer Date of Assessment Author 1. In the past month, have y ou wished you were or wished you could go to sleep and not wake up? 0 10/05/2024 7:56 PM EDT Faith Mojica RN 2. In the past month, have y ou actually had any thoughts of killing yourself? (If no, skip to question 6) 0 10/05/2024 7:56 PM EDT Faith Mojica RN 6. Have you ever done anythi ng, started to do anything, or prepared to do anything to end your life? 0 10/05/2024 7:56 PM EDT Faith Mojica RN documented as of this encounter Discharge Instructions * Discharge Instructions* Marleny Vincent PA-C - 10/05/2024 9:26 PM EDT Ice and elevate wiggle fingers frequently Aleve 2 tablets 2 times a day or ibuprofen 600 mg every 8 hours as needed for pain You may also take Tylenol 1000 mg every 8 hours as needed for pain Follow-up with orthopedics next week if not improving documented in this encounter Medications at Time of Discharge busPIRone (BUSPAR) 15 mg Oral Tablet 07/01/2022 clindamycin (CLEOCIN T) 1 % Top GelIndications:Hi dradenitis suppurativa Apply topically to affected area of skin on thighs and buttocks daily after washing with benzoyl peroxide. 60 g 2 08/03/2022 cloNIDine (CATAPRES) 0.1 mg Oral Tablet 08/01/2022 cyanocobalamin 1,000 mcg Oral Tablet Take 1,000 mcg by mouth daily. ergocalciferol (DRISDOL) 1,250 mcg (50,000 unit) Oral Capsule Take 50,000 Units by mouth every 7 days. fluconazole (DIFLUCAN) 100 mg Oral Tablet 07/27/2022 fluticasone propionate (FLONASE) 50 mcg/actuation Nasl [place], Suspension 06/05/2022 fUROsemide (LASIX) 20 mg Oral Tablet 07/18/2022 hydrocortisone 2.5 % Top CreamIndications: Seborrheic dermatitis Apply topically to affected area of skin along sides of nose BID PRN for up to 1 week, followed by 1 week off. Repeat as needed. 28 g 1 12/21/2022 hydrOXYzine (ATARAX) 25 mg Oral Tablet 07/18/2022 ketoconazole (NIZORAL) 2 % Top CreamIndications: Seborrheic dermatitis Apply topically to affected skin on the face BID PRN. 60 g 2 05/28/2024 metroNIDAZOLE (METROCREAM) 0.75 % Top CreamIndications: Rosacea Apply topically to affected area of face BID. 45 g 2 08/02/2022 mupirocin (BACTROBAN) 2 % Top OintmentIndicatio ns:Nasal crusting Apply 4 oz topically [address] 1.5-2 inches of ointment in each 240ml bottle of nasal saline irrigation. 60 g 2 03/06/2023 mupirocin (BACTROBAN) 2 % Top OintmentIndicatio ns:Nasal septal perforation,Nasal crusting Apply 4 oz topically [address] 1.5-2 inches of ointment in each 240ml bottle of nasal saline irrigation. 60 g 2 01/16/2023 omeprazole (PRILOSEC) 40 mg Oral Capsule, Delayed Release(E.C.) 06/11/2021 ondansetron (ZOFRAN-ODT) 4 mg Oral Tablet, Rapid Dissolve 07/20/2022 promethazine (PHENERGAN) 25 mg Oral Tablet 07/18/2022 tacrolimus (PROTOPIC) 0.1 % Top OintmentIndicatio ns:Seborrheic dermatitis Apply topically to affected skin on the face BID PRN 60 g 1 05/28/2024 tocopherol acetate (VITAMIN E) 200 unit Oral Capsule Take 200 Units by mouth daily. VENTOLIN HFA 90 mcg/actuation Inhl HFA Aerosol Inhaler 02/05/2023 documented as of this encounter Discharge Disposition Disposition Code Departure Means Destination Comment s Home or Self Skilled Nursing documented in this encounter ED Notes * Marleny Vincent PA-C - 10/05/2024 7:52 PM EDT Chief Complaint Patient presents with Edema PT reports right hand swelling & pain. PT doesn't know if she injured it or not. Patient seen for Dr. May 43-year-old female, [id number], presents to the emergency department with pain and swelling of the right hand. States she mowed a 1 acre yard with a push mower. States she started having pain while mowing, but the pain worsened several hours later and she noticed swelling.. Pain worsens with movement of the fingers. She became concerned when she developed tingling sensation in the hand and radiation of pain into the volar forearm region. Patient History Allergies Allergen Reactions Demerol [Meperidine] Anaphylaxis Morphine Anaphylaxis Penicillins Anaphylaxis and hives Clindamycin Hives nausea and extreme diarrhea Doxycycline Nausea Only severe diarrhea Percocet [Oxycodone-Acetaminophen] Nausea And Vomiting hives Sulfa (Sulfonamide Antibiotics) Other (See Comments) trouble breathing. Can take cyclosporins Tetanus Toxoid, Adsorbed Other (See Comments) swelling - anaphalaxis Tetracyclic Antidepressants Other (See Comments) antidepressants Home Medications: Prior to Admission medications Medication Sig Start Date End Date Taking? Authorizing Provider busPIRone (BUSPAR) 15 mg Oral Tablet 07/01/22 Provider, Historical clindamycin (CLEOCIN T) 1 % Top Gel Apply topically to affected area of skin on thighs and buttocksdaily after washing with benzoyl peroxide. 08/03/22 Keara Guthrie PA-C cloNIDine (CATAPRES) 0.1 mg Oral Tablet 08/01/22 Provider, Historical cyanocobalamin 1,000 mcg Oral Tablet Take 1,000 mcg by mouth daily. Provider, Historical ergocalciferol (DRISDOL) 1,250 mcg (50,000 unit) Oral Capsule Take 50,000 Units by mouth every 7 days. Provider, Historical fluconazole (DIFLUCAN) 100 mg Oral Tablet 07/27/22 Provider, Historical fluticasone propionate (FLONASE) 50 mcg/actuation Nasl [place], Suspension 06/05/22 Provider, Historical fUROsemide (LASIX) 20 mg Oral Tablet 07/18/22 Provider, Historical hydrocortisone 2.5 % Top Cream Apply topically to affected area of skin along sides of nose BID PRNfor up to 1 week, followed by 1 week off. Repeat as needed. 12/21/22 Keara Guthrie PA-C hydrOXYzine (ATARAX) 25 mg Oral Tablet 07/18/22 Provider, Historical ketoconazole (NIZORAL) 2 % Top Cream Apply topically to affected skin on the face BID PRN. 05/28/24 Keara Guthrie PA-C methocarbamoL (ROBAXIN) 750 mg Oral Tablet 07/18/22 Provider, Historical metroNIDAZOLE (METROCREAM) 0.75 % Top Cream Apply topically to affected area of face BID. 08/02/22 Keara Guthrie PA-C mupirocin (BACTROBAN) 2 % Top Ointment Apply 4 oz topically [address] 1.5-2 inches of ointment in each 240ml bottle of nasal saline irrigation. 03/06/23 Laxmi Girard PA-C mupirocin (BACTROBAN) 2 % Top Ointment Apply 4 oz topically [address] 1.5-2 inches of ointment in each 240ml bottle of nasal saline irrigation. 01/16/23 Lucia Vyas MD omeprazole (PRILOSEC) 40 mg Oral Capsule, Delayed Release(E.C.) 06/11/21 Provider, Historical ondansetron (ZOFRAN-ODT) 4 mg Oral Tablet, Rapid Dissolve 07/20/22 Provider, Historical promethazine (PHENERGAN) 25 mg Oral Tablet 07/18/22 Provider, Historical tacrolimus (PROTOPIC) 0.1 % Top Ointment Apply topically to affected skin on the face BID PRN 05/28/24 Keara Guthrie PA-C tocopherol acetate (VITAMIN E) 200 unit Oral Capsule Take 200 Units by mouth daily. Provider, Historical VENTOLIN HFA 90 mcg/actuation Inhl HFA Aerosol Inhaler 02/05/23 Provider, Historical Past Medical History: History reviewed. No pertinent past medical history. Social History: reports that she has never smoked. She has been exposed to tobacco smoke. She has never used smokeless tobacco. She reports that she does not currently use alcohol. She reports that she does not use drugs. E-Cigarettes (such as Vapes or Juul) E-Cigarette Use Former User Family History: No family history on file. Surgical History: History reviewed. No pertinent surgical history. Review of Systems Review of Systems All other systems reviewed and are negative. Physical Exam Blood pressure (!) 180/103, pulse 98, temperature 98.3 ??F (36.8 ??C), temperature source Oral, resp. rate 16, last menstrual period 01/16/2023, SpO2 99%, not currently . Physical Exam Vitals and nursing note reviewed. Constitutional: General: She is not in acute distress. Appearance: Normal appearance. She is well-developed. She is not ill-appearing or toxic-appearing. HENT: Head: Normocephalic and atraumatic. Cardiovascular: Rate and Rhythm: Normal rate and regular rhythm. Pulses: Normal pulses. Pulmonary: Effort: Pulmonary effort is normal. Musculoskeletal: Right elbow: Normal. Right forearm: Normal. Right wrist: Normal. Right hand: Swelling (mild swelling hand and fingers) and bony tenderness (3rd through 5th metacarpals and digits) present. No deformity. Decreased range of motion (2nd through 5th fingers, most tender palmar aspect). Normal capillary refill. Normal pulse. Cervical back: Normal range of motion. Comments: Motor and sensory exam of the radial, median, and ulnar nerve intact. Radial pulse 2+. Skin: General: Skin is warm and dry. Capillary Refill: Capillary refill takes less than 2 seconds. Findings: No erythema or rash. Neurological: Mental Status: She is alert and oriented to person, place, and time. Psychiatric: Behavior: Behavior normal. Procedures Radiology/EKG/Labs: Results for orders placed or performed during the hospital encounter of 10/05/24 XR HAND RIGHT PA LATERAL AND OBLIQUE Narrative XR HAND RIGHT PA LATERAL AND OBLIQUE, 10/05/2024 9:00 PM CLINICAL HISTORY: -pain COMPARISON: None. PROCEDURE COMMENTS: XR HAND RIGHT PA LATERAL AND OBLIQUE FINDINGS: No acute fracture or traumatic malalignment. Joint spaces overall well-maintained for age. No periostitis. Impression No acute bony abnormality of the hand. - Note: Radiology results need to be interpreted within a comprehensive clinical context. If you have questions about the radiology report, please contact the office of the ordering clinician. ED Course: Appropriate laboratory and radiology studies reviewed Patient presents the emergency department for evaluation of right hand pain and swelling which started after using a push mower to mow a 1 acre yard yesterday. Pain started while mowing, but worsenedseveral hours later. She became concerned when pain was radiating into the forearm and she developed some tingling sensation in the hand. She is neurovascularly intact on exam. No evidence of infectious etiology. Suspect strain versus contusion. Imaging ordered. X-rays of the right hand did not reveal any acute fracture or dislocation by my reading and confirmed by radiologist review Gwyn bandage applied. Suspect the tingling sensation is due to swelling. Feel this should gradually improve. She is neurovascularly intact on exam. She is referred to orthopedics if symptoms worsen orfail to improve. ED Clinical Impression: Injury of right hand, initial encounter (primary encounter diagnosis) Critical Care time MDM Medical Decision Making Condition at Discharge/Transfer from Department: Stable This chart was completed using voice recognition technology and may contain unintended errors Marleny Vincent PA-C 10/05/242133 Cosigned by Andrés Donahue MD at 10/06/2024 12:39 AM EDT Associated attestation - Andrés Donahue MD - 10/06/2024 12:39 AM EDT Firearms Assembly Supervisor Note This patient was seen in coordination with the advanced practice provider (YANDEL) but not personally examined by myself. I have reviewed the patient's chief complaint, history of present illness, pertinent past medical history, as well as their current presentation and examination findings as relayedby the YANDEL. I have reviewed relevant laboratory and radiographic studies and discussed the treatment plan with the YANDEL. I have participated in the care of this patient and performed a substantive portion of the medical decision making. Andrés Donahue MD documented in this encounter Plan of Treatment Upcoming Encounters Date Type Department Care Team (Late st Contact Info) Description 12/31/2024 9:25 AM EDT Hospital Encounter [facility] [address] [place], [place] [id number] [place] [address] [place] [address] [id number] 12/31/2024 9:25 AM EDT - 12/31/2024 10:00 AM EDT Surgery [facility] [address] [place], [place] [id number] [place] [address] [place] [phone] CARPAL TUNNEL RELEASE ENDOSCOPIC 01/14/2025 8:45 AM EDT Office Visit [facility] [address] [place], [place] [id number] Shira Ambrose PA-C [address] [place] [address] Scheduled Procedures Name Priority Associated Diagnoses Date/Ti me CARPAL TUNNEL RELEASE ENDOSCOPIC Right carpal tunnel syndrome 12/31/2024 9:25 AM EDT CARPAL TUNNEL RELEASE Right carpal tunnel syndrome 12/31/2024 9:25 AM EDT documented as of this encounter Procedures Procedure Name Priority Date/Time Associated Diagnosis Comments XR HAND RIGHT PA LATERAL AND OBLIQUE DAVID 10/05/2024 9:00 PM EDT documented in this encounter Results * XR HAND RIGHT PA LATERAL AND OBLIQUE (10/05/2024 9:00 PM EDT) Anatomical Region Laterality Modality Hand Radiographic Claudia ging 10/05/2024 9:00 PM EDT Impressions 10/05/2024 9:12 PM EDT No acute bony abnormality of the hand. - Note: Radiology results need to be interpreted within a comprehensive clinical context. If you have questions about the radiology report, please contact the office of the ordering clinician. Narrative 10/05/2024 9:12 PM EDT XR HAND RIGHT PA LATERAL AND OBLIQUE, 10/05/2024 9:00 PM CLINICAL HISTORY: -pain COMPARISON: None. PROCEDURE COMMENTS: XR HAND RIGHT PA LATERAL AND OBLIQUE FINDINGS: No acute fracture or traumatic malalignment. Joint spaces overall well-maintained for age. No periostitis. Procedure Note Georges Johnson MD - 10/05/2024 XR HAND RIGHT PA LATERAL AND OBLIQUE, 10/05/2024 9:00 PM CLINICAL HISTORY: -pain COMPARISON: None. PROCEDURE COMMENTS: XR HAND RIGHT PA LATERAL AND OBLIQUE FINDINGS: No acute fracture or traumatic malalignment. Joint spaces overall well-maintained for age. No periostitis. IMPRESSION: No acute bony abnormality of the hand. - Note: Radiology results need to be interpreted within a comprehensiveclinical context. If you have questions about the radiology report, please contactthe office of the ordering clinician. Marleny Vincent PA-C IMG DIAGNOSTIC IMAGING ORDERA BLES Final Result documented in this encounter Visit Diagnoses Diagnosis Injury of right hand, initial encounter- Primary Right carpal tunnel syndrome Carpal tunnel syndrome documented in this encounter Care Teams Floor Nurse Relationship Specialty Start Date End Date Alan Beyer MD PCP - General Family Medicine 10/05/24 documented as of this encounter
--- OUTSIDE RECORDS SUMMARY | 2024-10-18 12:15 | XMS_ITS | Encounter Summary ---
Author Organization [facility] Address [address] [place] [address] Care Team Providers Care Railroad Hand Name Role Phone Alan Beyer MD Primary Care Provider [phone] Reason for Referral * (Routine) - Pending Review Specialty Diagnoses / Procedures Referred By Contac t Referred To Contact Diagnoses Left hand pain Bilateral carpal tunnel syndrome Moisés Katz PA [address] [place] [address] Phone: tel: fax: Referral ID Status Reason Start Date Expiration Date V isits Requested Visits Authorized [id number] Pending Review 10/18/2024 10/18/2025 1 1 Reason for Visit * Reason Comments Pain Encounter Details Date Type Department Care Team (Late st Contact Info) Description 10/18/2024 12:15 PM EDT Office Visit [facility] [place] [address] Moisés Katz PA [address] [place] [address] Bilateral carpal tunnel syndrome (Primary Dx); Left hand pain Social History Tobacco Use Types Packs/Day Years Used Date Smoking Tobacco: Never Passive Smoke Exposure: Current Smokeless Tobacco: Never Alcohol Use Standard Drinks/Week Comments Not Currently 0 (1 standard drink = 0.6 oz pur e alcohol) Comments No Sex and Gender Information Value Date Recorded Sex Assigned at Not on file Legal Sex Female 10:14 AM EST Gender Identity Not on file Sexual Orientation Not on file documented as of this encounter Progress Notes * Moisés Katz PA - 10/18/2024 12:15 PM EDT Images from the original note were not included. 10/20/2024 Subjective: Patient ID: Charline Bond is a 43 y.o. patient [id number] CHIEF COMPLAINT: Bilateral Hand Pain HISTORY: The patient comes into the office alone today for evaluation and treatment of bilateral hand pain. The patient states that she has had bilateral hand pain and numbness and tingling into her wrist and fingers over the past several weeks. She notes this especially with mowing her grass. She states that conservative treatments have minimally helped her pain and symptoms. She denies any specific injury. She was recently seen at the emergency room for right hand pain where x-rays were taken. ROS Relevant point review of systems dated 10/20/2024 (or recent visit to [facility]) was reviewed and all pertinent positives were reviewed and are available in the patient's chart. There were no vitals filed for this visit. Objective: PHYSICAL EXAMINATION: . Exam of the bilateral hands and wrist reveal minimal swelling and tenderness to palpation over the volar aspects of the wrist. Range of motion is limited at the wrist with flexion extension. Range of motion is full for all fingers and thumb. Decorating Machine Tender strength 4/5. Positive Tinel sign bilaterally No gross instability is noted. Skin is intact. Compartments are soft. Distally, the patient is neurovascularly intact. Imaging: IMAGING STUDIES: X-rays taken of the left hand today, 3 views, show well-preserved joint spaces and no evidence of fractures Assessment And Plan IMPRESSION: bilateral hand carpal tunnel syndrome PLAN: The results of the x-rays and the diagnosis were discussed with the patient and/or family. Conservative treatment options were discussed. At this time, I will refer the patient to one of our hand surgeons for further evaluation and possible surgical consultation regards to carpal tunnel release. The patient will continue conservative treatments and modify activities until that time. All questions were answered. The patient and/or family understand and agree with the plan. ALLERGIES Allergies Allergen Reactions Baclofen Hives hives and cant breath Clindamycin Hives and Anaphylaxis nausea and extreme diarrhea Meperidine Anaphylaxis and Hives hallucinations and angry Morphine Anaphylaxis Nickel Hives and Other (See Comments) Oxycodone-Acetaminophen Nausea And Vomiting hives hives 13throws up and itching throws up and itching Penicillins Anaphylaxis and Hives and hives Pt has tolerated cefoxitin in 06/30, 06/01, and trying cefazolin hives and hives Sulfa (Sulfonamide Antibiotics) Other (See Comments) and Anaphylaxis trouble breathing. Can take cyclosporins Doxycycline Nausea Only severe diarrhea Escitalopram Other (See Comments) Jerking movements and tremors Tetanus Toxoid, Adsorbed Other (See Comments) swelling - anaphalaxis Tetracyclic Antidepressants Other (See Comments) antidepressants Gold Keratinate Other (See Comments) Ketorolac Anxiety and Other (See Comments) Lidocaine Other (See Comments) and Rash 9severe swelling, itching, rash Sulfamethoxazole-Trimethoprim Other (See Comments) PAST MEDICAL HISTORY No past medical history on file. FAMILY HISTORY No family history on file. SOCIAL HISTORY Social History Socioeconomic History Marital status: Tobacco Use Smoking status: Never Passive exposure: Current Smokeless tobacco: Never Vaping Use Vaping status: Former Substance and Sexual Activity Alcohol use: Not Currently Drug use: Never Social Drivers of Health Received from [facility] Food Insecurity Received from [facility] Family and Community Support Received from [facility] Abuse Screen Received from [facility] Housing Stability SURGICAL HISTORY No past surgical history on file. CURRENT MEDICATIONS Outpatient meds: Current Outpatient Medications: busPIRone (BUSPAR) 15 mg Oral Tablet, , Disp: , Rfl: clindamycin (CLEOCIN T) 1 % Top Gel, Apply topically to affected area of skin on thighs and buttocks daily after washing with benzoyl peroxide., Disp: 60 g, Rfl: 2 cloNIDine (CATAPRES) 0.1 mg Oral Tablet, , Disp: , Rfl: cyanocobalamin 1,000 mcg Oral Tablet, Take 1,000 mcg by mouth daily., Disp: , Rfl: ergocalciferol (DRISDOL) 1,250 mcg (50,000 unit) Oral Capsule, Take 50,000 Units by mouth every 7 days., Disp: , Rfl: fluconazole (DIFLUCAN) 100 mg Oral Tablet, , Disp: , Rfl: fluticasone propionate (FLONASE) 50 mcg/actuation Nasl Dexter, Suspension, , Disp: , Rfl: fUROsemide (LASIX) 20 mg Oral Tablet, , Disp: , Rfl: hydrocortisone 2.5 % Top Cream, Apply topically to affected area of skin along sides of nose BID PRN for up to 1 week, followed by 1 week off. Repeat as needed., Disp: 28 g, Rfl: 1 hydrOXYzine (ATARAX) 25 mg Oral Tablet, , Disp: , Rfl: ketoconazole (NIZORAL) 2 % Top Cream, Apply topically to affected skin on the face BID PRN., Disp: 60 g, Rfl: 2 methocarbamoL (ROBAXIN) 750 mg Oral Tablet, , Disp: , Rfl: metroNIDAZOLE (METROCREAM) 0.75 % Top Cream, Apply topically to affected area of face BID., Disp: 45 g, Rfl: 2 mupirocin (BACTROBAN) 2 % Top Ointment, Apply 4 oz topically [address] 1.5-2 inches of ointment in each 240ml bottle of nasal saline irrigation., Disp: 60 g, Rfl: 2 mupirocin (BACTROBAN) 2 % Top Ointment, Apply 4 oz topically [address] 1.5-2 inches of ointment in each 240ml bottle of nasal saline irrigation., Disp: 60 g, Rfl: 2 omeprazole (PRILOSEC) 40 mg Oral Capsule, Delayed Release(E.C.), , Disp: , Rfl: ondansetron (ZOFRAN-ODT) 4 mg Oral Tablet, Rapid Dissolve, , Disp: , Rfl: promethazine (PHENERGAN) 25 mg Oral Tablet, , Disp: , Rfl: tacrolimus (PROTOPIC) 0.1 % Top Ointment, Apply topically to affected skin on the face BID PRN, Disp: 60 g, Rfl: 1 tocopherol acetate (VITAMIN E) 200 unit Oral Capsule, Take 200 Units by mouth daily., Disp: , Rfl: VENTOLIN HFA 90 mcg/actuation Inhl HFA Aerosol Inhaler, , Disp: , Rfl: Richard Katz PA-C Physician Decal Cutter to Mart Marques MD Knee, Shoulder, Sports Medicine & Trauma Orthopaedic Surgery [phone] [employer] Parts of this note may have been created by a chart review, combined by taking my own patient history. The patient was physically seen and examined by myself, including a personal review of images, tests, and formation of the impression and plan. In addition, this note may been dictated utilizing voice recognition software. Unfortunately, this leads to occasional typographical errors. I apologizein advance if the situation occurs. If questions occur, please do not hesitate to call our office. The patient was advised to call with any issues or concerns in the future. documented in this encounter Plan of Treatment Upcoming Encounters Date Type Department Care Team (Late st Contact Info) Description 12/31/2024 9:25 AM EDT Hospital Encounter EDG [address] [place] [id number] Elias De La Cruz MD [address] [place] [address] 12/31/2024 9:25 AM EDT - 12/31/2024 10:00 AM EDT Surgery EDG [address] [place] [address] Elias De La Cruz MD [address] [place] [address] CARPAL TUNNEL RELEASE ENDOSCOPIC 01/14/2025 8:45 AM EDT Office Visit [facility] [address] [address] Shira Ambrose PA-C [address] [place] [address] Scheduled Orders Name Type Priority Associated Diagnoses Orde r Schedule DE SERVICES PROVIDED OFFICE OTH/THN REG SCHED HOURS DE Charge Routine Left hand pain Ordered: 10/18/2024 Scheduled Procedures Name Priority Associated Diagnoses Date/Ti me CARPAL TUNNEL RELEASE ENDOSCOPIC Right carpal tunnel syndrome 12/31/2024 9:25 AM EDT CARPAL TUNNEL RELEASE Right carpal tunnel syndrome 12/31/2024 9:25 AM EDT Scheduled Referrals Name Type Priority Associated Diagnoses Order Schedule OC HAND POOL COMMUNICATION ORDER Outpatient Referral Routine Left hand pain Bilateral carpal tunnel syndrome Ordered: 10/18/2024 documented as of this encounter Results * XR HAND LEFT PA LATERAL AND OBLIQUE (10/18/2024 12:27 PM EDT) Narrative KatrinarIsabelle - 10/18/2024 12:28 PM EDT Please see physician's note from office encounter for x-ray imaging result Moisés HERNANDEZ IMG DIAGNOSTIC IMAGING ORDER DONNA Final Result documented in this encounter Visit Diagnoses Diagnosis Bilateral carpal tunnel syndrome- Primary Carpal tunnel syndrome Left hand pain Pain in limb Left hand pain Pain in limb Right carpal tunnel syndrome Carpal tunnel syndrome documented in this encounter Care Teams Railroad Hand Relationship Specialty Start Date End Date Alan Beyer MD PCP - General Family Medicine 10/05/24 documented as of this encounter
--- OUTSIDE RECORDS SUMMARY | 2024-10-18 12:30 | XMS_ITS | Encounter Summary ---
Author Organization [facility] Address [address] [place] [address] Care Team Providers Care Resistor Inspector Name Role Phone Alan Beyer MD Primary Care Provider [phone] Encounter Details Date Type Department Care Team (Late st Contact Info) Description 10/18/2024 12:30 PM EDT Ancillary Procedure [address] [address] Moisés Katz PA [address] [facility] [address] [place] [address] Left hand pain Social History Tobacco Use [...] 12/31/2024 9:25 AM EDT Hospital Encounter EDG [address] [place] [id number] Elias De La Cruz MD [address] [place], [place] [id number] 12/31/2024 9:25 AM EDT - 12/31/2024 10:00 AM EDT Surgery EDG [address] [place] [address] Elias De La Cruz MD [address] [facility] [place] [address] CARPAL TUNNEL RELEASE ENDOSCOPIC 01/14/2025 8:45 AM EDT Office Visit [facility] [address] [place] [address] Shira Ambrose PA-C [address] [place] [address] Scheduled Procedures Name Priority Associated Diagnoses Date/Ti [...] Diagnosis Left hand pain Pain in limb Right carpal tunnel syndrome Carpal tunnel syndrome documented in this encounter Care Teams Resistor Inspector Relationship Specialty Start Date End Date Alan Beyer MD PCP - General Family Medicine 10/05/24 documented as of this encounter
--- OUTSIDE RECORDS SUMMARY | 2024-10-20 08:00 | XMS_ITS | Encounter Summary ---
Author Organization [facility] Address [address] [place] [address] Care Team Providers Care Open Hearth Stockyard Supervisor Name Role Phone Alan Beyer MD Primary Care Provider [phone] Reason for Referral * EMG (Routine) - AFF Authorization Not Needed Specialty Diagnoses / Procedures Referred By Contact Referred To Contact Psychiatry & Neurology-Neurology / Electromyography Diagnoses Bilateral carpal tunnel syndrome Procedures EMG Shira Ambrose PA-C [address] [place] [address] Phone: tel: fax: Anshu Rojas MD [address] [place] [address] Phone: tel: fax: Referral ID Status Reason Start Date Expiration Date Visits Requested Visits Authorized [id number] AFF Authorization Not Needed 10/20/2024 10/20/2025 1 1 Reason for Visit * Reason Comments Pain Pain Encounter Details Date Type Department Care Team (Late st Contact Info) Description 10/20/2024 8:00 AM EDT Office Visit [facility] [address] [address] Shira Ambrose PA-C [address] [place] [address] Bilateral carpal tunnel syndrome (Primary Dx) Social History Tobacco Use Types Packs/Day Years [...] as of this encounter Progress Notes * Shira Ambrose PA-C - 10/20/2024 8:00 AM EDT Images from the original note were not included. Chief Compliant: bilateral hand numbness History: 43 y.o. female presents with complaints of pain and numbness in the median nerve distribution that is progressively worsening over the past for years . But worse the past month. This awakes them from sleep. Worse with flexion and extension activities such as driving and talking on the phone. Previous Treatment: Over the counter medications Has worn wraps on her wrist in the past Went to our walk-in clinic this past weekend had x-rays which were negative. Diagnosed with carpal tunnel syndrome and referred for follow-up Neck history: History of pinched nerve in her neck. Lower extremity numbness tingling: No Inflammatory condition: No Tobacco/Nicotine use: reports that she has never smoked. She has been exposed to tobacco smoke. Shehas never used smokeless tobacco. Thyroid Disease: No Diabetes: Patient is not diabetic. No results found for: HGBA1C Previous wrist or elbow trauma/fracture: No RIGHT HAND physical exam: CTS-6 Points Present Median Distribution 3.5 None Atrophy 5 Present Night time sympt. 4 Positive Tinels sign 4 Positive Compression Test - Positive Phalens test 5 Deferred 2PD >5 4.5 none Opposition Weakness - LEFT HAND physical exam: CTS-6 Points Present Median Distribution 3.5 None Atrophy 5 Present Night time sympt. 4 Positive Tinels sign 4 Positive Compression Test - Positive Phalens test 5 Deferred 2PD >5 4.5 none Opposition Weakness - Radiology / Other Testing: EMG/NCS: NONE Impression: Bilateral carpal Tunnel Syndrome Plan: Discussed the diagnosis, natural history and treatment options for carpal tunnel syndrome. All questions were answered. Discussed the utility of the CTS6 in diagnosis of carpal tunnel syndrome. This test has shown to have similar sensitivity and specificity when compared to nerve conduction studies and ultrasound in randomized controlled studies. Recommended a volar wrist splint to immobilize the wrist in neutral to be worn nightly until followup or symptoms resolve. Recommended over the counter medicine for pain control. Handout provided and discussed regarding the judicious use of Tylenol and Ibuprofen. Discussed activity modifications including avoiding repetitive flexion and extension movements, vibration and prolonged hyperflexion or extension positions. Discussed the role of the CTS6 in diagnosis of carpal tunnel syndrome. In this clinical scenario, Ifeel Nerve Conduction Studies would help clarify or confirm the diagnosis. NCS/EMG ordered. Follow-up after EMG studies Patient in agreement with plan of care and all questions answered. Shira Ambrose PA-C The supervising/collaborating provider for the technical component of the x-rays is Elias De La Cruz MD. This chart was completed using voice recognition technology and may contain unintended errors. documented in this encounter Plan of Treatment Upcoming Encounters Date Type Department Care Team (Late st Contact Info) Description 12/31/2024 9:25 AM EDT Hospital Encounter EDG [address] [place] [address] Elias De La Cruz MD [address] [place] [address] 12/31/2024 9:25 AM EDT - 12/31/2024 10:00 AM EDT Surgery EDG [address] [place] [address] Elias De La Cruz MD [address] [place] [address] CARPAL TUNNEL RELEASE ENDOSCOPIC 01/14/2025 8:45 AM EDT Office Visit [facility] [address] [address] Shira Ambrose PA-C [address] [place] [address] Scheduled Orders Name Type Priority Associated Diagnoses Orde r Schedule [place] WHO WRIST EXTENSION CONTROL NON MOLDED [place] Charge Routine Bilateral carpal tunnel syndrome Ordered: 10/20/2024 Scheduled Procedures Name Priority Associated Diagnoses Date/Ti me CARPAL TUNNEL RELEASE ENDOSCOPIC Right carpal tunnel syndrome 12/31/2024 9:25 AM EDT CARPAL TUNNEL RELEASE Right carpal tunnel syndrome 12/31/2024 9:25 AM EDT documented as of this encounter Results * (ABNORMAL) EMG (11/04/2024) Impressions SEP OFFICE - 11/04/2024 Conclusions: There is EMG evidence of a 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 Otherwise, this EMG study of the left and right arms was normal. Anshu Rojas MD Narrative SEP OFFICE - 11/04/2024 Interpretation: The left Median Palmar sensory nerve action potential peak latency was prolonged when compared to the corresponding Ulnar study. Otherwise, the nerve conduction studies of the right and left arms were normal. The needle exam of the right and left arms was normal. Prior to the procedure, the patient's name and date of were confirmed and reconciled with the goal for the study. A pre-procedure pause was performed to confirm the side and specific location of the procedure. A new, disposable concentric needle was used for this exam and then discarded. us Shira Ambrose PA-C NEUROLOGY ORDERABLES Yvonne watkins Result SEP OFFICE documented in this encounter Visit Diagnoses Diagnosis Bilateral carpal tunnel syndrome- Primary Carpal tunnel syndrome Bilateral carpal tunnel syndrome Carpal tunnel syndrome Right carpal tunnel syndrome Carpal tunnel syndrome documented in this encounter Care Teams Open Hearth Stockyard Supervisor Relationship Specialty Start Date End Date Alan Beyer MD PCP - General Family Medicine 10/05/24 documented as of this encounter
--- OUTSIDE RECORDS SUMMARY | 2024-11-03 11:12 | XMS_ITS | Encounter Summary ---
Author Organization [place] [address] Care Team Providers Care Grill Attendant Name Role Phone Alan Beyer MD Primary Care Provider Reason for Visit * Reason Comments Flank Pain L flank pain since 9 a; +n Encounter Details Date Type Department Care Team (Late st Contact Info) Description 11/03/2024 11:12 AM EDT - 11/03/2024 2:[address] [facility] [place] [address] Aleks Cali MD [address] [place] [address] Left flank pain (Primary Dx) [...] 11:05 AM EDT Monalisa Cortés RN * Leon Suicide Severity Rating Scale (Q shift for [...] 07/27/2022 fluticasone propionate (FLONASE) 50 mcg/actuation Nasl [place], Suspension 06/05/2022 fUROsemide (LASIX) 20 mg Oral [...] Historical fluticasone propionate (FLONASE) 50 mcg/actuation Nasl [place], Suspension 06/05/22 Provider, Historical fUROsemide (LASIX) 20 [...] CULTURE. Procedure Abnormality Status --------- ------ URINALYSIS REFLEX[[id number]] Final result EXTRA BROUSSARD URINE CX[[id number]] Final result Please view results for these [...] Gran% 0.2 % Lymph Percent 28.5 % [place] Percent 7.6 % Eos Percent 2.1 % Baso Percent 0.5 % Neut # 4.0 1.6 - 6.1 x10(3)/mcL IMMGRAN# 0.0 0.0 - 0.1 x10(3)/mcL Lymph # 1.9 1.2 - 3.9 x10(3)/mcL [place] # 0.5 0.3 - 0.9 x10(3)/mcL Eos# [...] MD - 11/03/2024 3:05 PM EDT Attending Keysmith Note: The patient presented with Chief Complaint Patient presents with Flank Pain L flank pain since 9a; +n . I was available for discussion with the PA/LEAD SIMULATION MODELING ENGINEER in regards to the patient's chief complaint, history of present illness, review of systems, and pertinent past medical history and social history. I was available for consultation with the PA/LEAD SIMULATION MODELING ENGINEER regarding the pertinent clinical information from the PA/LEAD SIMULATION MODELING ENGINEER performed physical exam, the patient's labs, radiographic studies and the treatment and disposition plan. This patient was seen by the PA/LEAD SIMULATION MODELING ENGINEER and I was available for consultation. No orders to display Aleks Cali MD This chart was completed using voice recognition technology and may contain unintended errors documented in this encounter Plan of Treatment Upcoming Encounters Date Type Department Care Team (Late st Contact Info) Description 12/31/2024 9:25 AM EDT Hospital Encounter [facility] [address] [place] [address] Elias De La Cruz MD [address] [place] [address] 12/31/2024 9:25 AM EDT - 12/31/2024 10:00 AM EDT Surgery [place] [id number] [facility] [address] [place], [place] [id number] Elias De La Cruz MD [address] [place] [address] CARPAL TUNNEL RELEASE ENDOSCOPIC 01/14/2025 8:45 AM EDT Office Visit [facility] [address] [place] [address] Shira Ambrose PA-C [address] [place] [address] Scheduled Procedures Name Priority Associated [...] CHORIONIC GONADOTROPIN QUANTITATIVE (11/03/2024 11:36 AM EDT) Pathologist [facility] Hcg Quant <1 <5 mIU/mL 11/03/2024 11:59 AM EDT [facility] Blood VENOUS BLOOD / Unknown Venipuncture / Unknown 11/03/2024 11:36 AM EDT 11/03/2024 11:42 AM EDT Narrative [facility] - 11/03/2024 11:59 AM EDT Female [...] Ynes Zayas PA-C CHEMISTRY ORDERABLES Final Result [facility] [address] [place] [address] * (ABNORMAL) COMPREHENSIVE METABOLIC PANEL (11/03/2024 11:36 AM EDT) [facility] Sodium 138 136 - 145 mmol/L 11/03/2024 12:03 PM EDT [facility] Potassium 4.5 3.5 - 5.0 mmol/L 11/03/2024 12:03 PM EDT [facility] Chloride 104 98 - 107 mmol/L 11/03[facility]2024 [facility] Total CO2 24 22 - 29 mmol/L 11/03/2024 12:03 PM [facility] Anion Gap 10 7 - 16 mmol/L 11/03/2024 12:03 PM [facility] Calcium 8.6 8.6 - 10.4 mg/dL 11/03/2024 12:03 PM [facility] Glucose Lvl 102(H) 70 - 99 mg/dL 11/03/2024 12:03 PM [facility] BUN 13 6 - 20 mg/dL 11/03/2024 12:03 PM [facility] Creatinine 0.75 0.51 - 1.30 mg/dL 11/03/2024 12:03 PM [facility] Albumin 4.2 3.5 - 5.2 gm/dL 11/03/2024 12:03 PM [facility] Total Protein 7.2 6.4 - 8.3 gm/dL 11/03/2024 12:03 PM [facility] Bili Total <0.2(L) 0.2 - 1.3 mg/dL 11/03/2024 12:03 PM [facility] ALT 13 <=41 U/L 11/03/2024 12:03 PM [facility] AST 20 <=40 U/L 11/03/2024 12:03 PM [facility] Alk Phos 93 36 - 123 U/L 11/03/2024 12:03 PM [facility] eGFR (CKD-EPIcr 2020) 102 >=60 mL/min/1.7 3 m2 11/03/2024 12:03 PM [facility] Comment:Estimated GFR was ca lculated using the CKD-EPIcr (2020) equation refit without race. The equation is recommended by the National Kidney Foundation - [place] [employer] of Nephrology Task Force. Blood VENOUS BLOOD / Unknown Venipuncture / Unknown 11/03/2024 11:36 AM EDT 11/03/2024 11:42 AM EDT Ynes Zayas PA-C CHEMISTRY ORDERABLES Final Result [facility] [address] [place] [address] * (ABNORMAL) CBC WITH DIFF (11/03/2024 11:36 AM EDT) WBC 6.6 3.7 - 10.3 x10(3)/mcL 11/03/2024 11:47 AM EDT [facility] RBC 3.56(L) 3.90 - 5.20 x10(6)/mcL 11/03/2024 11:47 AM EDT [facility] Hgb 11.6 11.2 - 15.7 g/dL 11/03/2024 11:[address] [facility] Hct 34.9 34.0 - 45.0 % 11/03/2024 11:47 AM EDT [facility] MCV 98.0 80.0 - 100.0 fL 11/03/2024 11:[address] [facility] MCH 32.6 26.0 - 34.0 pg 11/03/2024 11:[address] [facility] MCHC 33.2 30.7 - 35.5 g/dL 11/03/2024 11:[address] [facility] RDW 12.4 <=14.9 % 11/03/2024 11:[address] [facility] Platelet 264 155 - 369 x10(3)/mcL 11/03/2024 11:47 AM EDT [facility] MPV 9.9 8.8 - 12.5 fL 11/03/2024 11:47 AM EDT [facility] Neut Percent 61.1 % 11/03/2024 11:47 AM EDT [facility] Comment:Neutrophils equals s egs plus bands Imm Gran% 0.2 % 11/03/2024 11:47 AM EDT [facility] Comment:Automated count of m etamyelocytes, myelocytes and promyelocytes. Lymph Percent 28.5 % 11/03/2024 11:[address] [facility] [place] Percent 7.6 % 11/03/2024 11:47 AM EDT [facility] Eos Percent 2.1 % 11/03/2024 11:47 AM EDT [facility] Baso Percent 0.5 % 11/03/2024 11:[address] [facility] Neut # 4.0 1.6 - 6.1 x10(3)/[facility] 11/03/2024 11:47 AM EDT [facility] Comment:Neutrophils equals s egs plus bands IMMGRAN# 0.0 0.0 - 0.1 x10(3)/[facility] 11/03/2024 11:47 AM EDT [facility] Comment:Automated count of m etamyelocytes, myelocytes and promyelocytes. An absolute IG <0.1 is reported as 0.0. Lymph # 1.9 1.2 - 3.9 x10(3)/[facility] 11/03/2024 11:[address] [facility] [place] # 0.5 0.3 - 0.9 x10(3)/[facility] 11/03/2024 11:[address] [facility] Eos# 0.1 0.0 - 0.5 x10(3)/[facility] 11/03/2024 11:[address] [facility] Baso # 0.0 0.0 - 0.1 x10(3)/[facility] 11/03/2024 11:[address] [facility] Blood VENOUS BLOOD / Unknown Venipuncture / Unknown 11/03/2024 11:36 AM EDT 11/03/2024 11:42 AM EDT us Ynes Zayas PA-C HEMATOLOGY ORDERABLES Final Result [facility] [address] [place] [address] * EXTRA BROUSSARD URINE CX (11/03/2024 11:16 AM EDT) Urine STRUCTURE OF URINARY TRACT PROPER / Unknown 11/03/2024 11:16 AM EDT 11/03/2024 11:21 AM EDT Ynes Zayas PA-C MICROBIOLOGY - GENERAL ORDE RABLES Final Result [facility] [address] [facility] [place] [address] * URINALYSIS REFLEX (11/03/2024 11:16 AM EDT) UA Color Yellow 11/03/2024 11:24 AM EDT [facility] UA Appear Clear Clear 11/03/2024 11:[address] [facility] UA Glucose Negative Negative mg/dL 11/03/2024 11:[address] [facility] UA Ketones Negative Negative mg/dL 11/03/2024 11:[address] [facility] UA Blood Negative Negative 11/03/2024 11:[address] [facility] UA pH 6.0 5.0 - 8.0 pH 11/03/2024 11:[address] [facility] UA Protein Negative Negative mg/dL 11/03/2024 11:[address] [facility] UA Urobilinogen 0.2 <=1 mg/dL 11:[address] [facility] UA Bili Negative Negative 11/03/2024 11:24 AM EDT [facility] UA Nitrite Negative Negative 11/03/2024 11:24 AM EDT [facility] UA Leuk Est Negative Negative 11/03/2024 11:24 AM EDT [facility] UA Spec Grav 1.010 1.001 - 1.035 no units 11/03/2024 11:24 AM EDT [facility] Comment:Reference range keith d for random specimens only. Urine STRUCTURE OF URINARY TRACT PROPER / Unknown 11/03/2024 11:16 AM EDT 11/03/2024 11:21 AM EDT Ynes Zayas PA-C URINE ORDERABLES Final Resu lt [facility] [address] [facility] [place] [address] documented in this encounter Visit Diagnoses Diagnosis Left flank pain- Primary Abdominal pain, unspecified site Right carpal tunnel syndrome Carpal tunnel syndrome documented in this encounter Administered Medications Inactive [...] 11/03/2024 documented in this encounter Care Teams Grill Attendant Relationship Specialty Start Date End Date Alan Beyer MD PCP - General Family Medicine 10/05/24 documented as of this encounter
--- OUTSIDE RECORDS SUMMARY | 2024-11-04 09:10 | XMS_ITS | Encounter Summary ---
Author Organization [place] [address] Care Team Providers Care Life Assurance Representative Name Role Phone Alan Beyer MD Primary Care Provider [phone] Reason for Referral * EMG (Routine) - AFF Authorization Not Needed Specialty Diagnoses / Procedures Referred By Contact Referred To Contact Psychiatry & Neurology-Neurology / Electromyography Diagnoses Bilateral carpal tunnel syndrome Procedures EMG Shira Ambrose PA-C [address] [place] [address] Phone: tel: fax: Anshu Rojas MD [address] [place] [address] Phone: tel: fax: Referral ID Status Reason Start Date Expiration Date Visits Requested Visits Authorized [id number] AFF Authorization Not Needed 10/20/2024 10/20/2025 1 1 Reason for Visit * EMG (Routine) - AFF Authorization Not Needed Specialty Diagnoses / Procedures Referred By Contact Referred To Contact Psychiatry & Neurology-Neurology / Electromyography Diagnoses Bilateral carpal tunnel syndrome Procedures EMG Shira Ambrose PA-C [address] [place] [address] Phone: tel: fax: Anshu Rojas MD [address] [place] [address] Phone: tel: fax: Referral ID Status Reason Start Date Expiration Date Visits Requested Visits Authorized [id number] AFF Authorization Not Needed 10/20/2024 10/20/2025 1 1 Encounter Details Date Type Department Care Team (Latest Contact Info) Description 11/04/2024 9:10 AM EDT - 11/04/2024 11:59 PM EDT Hospital Encounter [facility] EMG [address] [place] [address] Emg, Rojas Edg Bilateral carpal tunnel syndrome Discharge Disposition: Home or Self Care Social [...] on file documented as of this encounter Medications at Time of Discharge [...] 07/27/2022 fluticasone propionate (FLONASE) 50 mcg/actuation Nasl [place], Suspension 06/05/2022 fUROsemide (LASIX) 20 mg Oral [...] Discharge Disposition Disposition Code Departure Means Destination Home or Self Care documented in this encounter Plan of Treatment Upcoming Encounters Date Type Department Care Team (Late st Contact Info) Description 12/31/2024 9:25 AM EDT Hospital Encounter EDG [address] [place] [address] Elias De La Cruz MD [address] [place], [place] [id number] 12/31/2024 9:25 AM EDT - 12/31/2024 10:00 AM EDT Surgery EDG [address] [place] [address] Elias De La Cruz MD [address] [place] [address] CARPAL TUNNEL RELEASE ENDOSCOPIC 01/14/2025 8:45 AM EDT Office Visit [facility] [address] [address] Shira Ambrose PA-C [address] [place] [address] Scheduled Procedures Name Priority Associated Diagnoses Date/Ti me CARPAL TUNNEL RELEASE ENDOSCOPIC Right carpal tunnel syndrome 12/31/2024 9:25 AM EDT CARPAL TUNNEL RELEASE Right carpal tunnel syndrome 12/31/2024 9:25 AM EDT documented as of this encounter Procedures Procedure Name Priority Date/Time Associated Diagnosis Comments EMG Routine 11/04/2024 Bilateral carpal tunnel syndrome documented in this encounter Results * (ABNORMAL) EMG (11/04/2024) [...] Ambrose PA-C NEUROLOGY ORDERABLES Yvonne watkins Result [facility] documented in this encounter Visit Diagnoses Diagnosis Bilateral carpal tunnel syndrome Carpal tunnel syndrome Right carpal tunnel syndrome Carpal tunnel syndrome documented in this encounter Care Teams Life Assurance Representative Relationship Specialty Start Date End Date Alan Beyer MD PCP - General Family Medicine 10/05/24 documented as of this encounter
--- OUTSIDE RECORDS SUMMARY | 2024-11-19 08:30 | XMS_ITS | Encounter Summary ---
Author Organization [facility] Address [address] [place] [address] Care Team Providers Care Retail Planning Manager Name Role Phone Alan Beyer MD Primary Care Provider [phone] Reason for Referral * Surgical (Routine) - AFF Authorized Specialty Diagnoses / Procedures Referred By Contac t Referred To Contact Diagnoses Bilateral carpal tunnel syndrome Procedures AMB OC SURGERY COMMUNICATION ORDER Shira Ambrose PA-C [address] [place] [address] Phone: tel: fax: Referral ID Status Reason Start Date Expiration Date Visits Requested Visits Authorized [id number] AFF Authorized 11/19/2024 11/19/2025 1 1 * Surgical (Routine) - Pending Review Specialty Diagnoses / Procedures Referred By Contac t Referred To Contact Diagnoses Bilateral carpal tunnel syndrome Procedures AMB OC SURGERY COMMUNICATION ORDER Shira Ambrose PA-C [address] [place] [address] Phone: tel: fax: Referral ID Status Reason Start Date Expiration Date V isits Requested Visits Authorized [id number] Pending Review 11/19/2024 11/19/2025 1 1 Reason for Visit * Reason Comments Follow-up Pain Pain Follow-up Encounter Details Date Type Department Care Team (Late st Contact Info) Description 11/19/2024 8:30 AM EDT Office Visit Pinky DURHAMAlicia [address] [place] [address] Shira Ambrose PA-C [address] [place] [address] Bilateral carpal tunnel syndrome (Primary Dx) Social [...] Sign Reading Time Taken Comments Blood Pressure - - Pulse - - Temperature - - Respiratory Rate - - Oxygen Saturation - - Inhaled Oxygen Concentration - - Weight 95.3 kg (210 lb) 11/19/2024 8:33 AM EDT Height 165.1 cm (5' 5 ) 11/19/2024 8:33 AM EDT Body Mass Index 34.95 11/19/2024 8:33 AM EDT documented in this encounter Progress Notes * Shira Ambrose PA-C - 11/19/2024 8:30 AM EDT Images from the original note were not included. Charline Bond 1980 CC: Recheck bilateral carpal tunnel syndrome HISTORY: The patient returns today for follow up of bilateral carpal tunnel syndrome and to go overEMG results. She has been bracing at night but this has not relieved her symptoms at all. She continues to have nightly and daily aching in bilateral hands with numbness and tingling. PAST MEDICAL HISTORY: Past Medical History: Diagnosis Date Anxiety Carpal tunnel syndrome Kidney stones REVIEW OF SYSTEMS: ROS neg except for positives in HPI PHYSICAL EXAM : Bilateral upper Extremity: Skin intact without atrophy. 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 Otherwise, this EMG study of the left and right arms was normal. Anshu Rojas MD IMPRESSION: Bilateral carpal tunnel syndrome PLAN: Reviewed EMG with the patient. Consistent with mild carpal tunnel syndrome on the right. Explained to the patient this is an imperfect test. Clinically she seems to have significant symptoms and positive clinical exam bilaterally. Patient has failed conservative treatment with bracing therefore I would recommend carpal tunnel release at this time. Discussed nature of the procedure its risk and benefits, and the slow and unpredictable nature of nerve healing Patient elected to proceed. We will get her scheduled for 1 side endoscopic possible open carpal tunnel release and then 2 weeks later the other. We will do this under local MAC anesthetic I will see patient postoperatively Patient in agreement with plan of care and all questions answered. The supervising/collaborating provider for the technical component of the x-rays is Elias De La Cruz MD. This chart was completed using voice recognition technology and may contain unintended errors. documented in this encounter Plan of Treatment Upcoming Encounters Date Type Department Care Team (Late st Contact Info) Description 12/31/2024 9:25 AM EDT Hospital Encounter EDG [address] [place] [address] Elias De La Cruz MD [address] [place] [address] 12/31/2024 9:25 AM EDT - 12/31/2024 10:00 AM EDT Surgery [facility]G [address] [place] [address] Elias De La Cruz MD [address] [place] [address] CARPAL TUNNEL RELEASE ENDOSCOPIC 01/14/2025 8:45 AM EDT Office Visit [facility] [address] [address] Shira Ambrose PA-C [address] [place] [address] Scheduled Procedures Name Priority Associated Diagnoses Date/Ti me CARPAL TUNNEL RELEASE ENDOSCOPIC Right carpal tunnel syndrome 12/31/2024 9:25 AM EDT CARPAL TUNNEL RELEASE Right carpal tunnel syndrome 12/31/2024 9:25 AM EDT documented as of this encounter Visit Diagnoses Diagnosis Bilateral carpal tunnel syndrome- Primary Carpal tunnel syndrome Right carpal tunnel syndrome Carpal tunnel syndrome documented in this encounter Orders Nursing Count Last Ordered Date First Orde red Date AMB OC SURGERY COMMUNICATION ORDER 2 2024 documented in this encounter Care Teams Retail Planning Manager Relationship Specialty Start Date End Date Alan Beyer MD PCP - General Family Medicine 10/05/24 documented as of this encounter
--- OUTSIDE RECORDS SUMMARY | 2024-11-27 14:43 | XMS_ITS | Encounter Summary ---
Author Organization [employer] ([place], [place], [place], [place]) Address [address] [place] [address] Care Team Providers Care Control Operator Flow Coat Name Role Phone Alan Beyer MD Primary Care Provider [phone] Encounter Details Date Type Department Care Team (Late st Contact Info) Description 12/12/2021 Transcribed Document [facility] [place] Medicine [address] [place] [address] ProviderJessenia MD [address] [place] [address] Social History Tobacco Use Types Packs/Day Years Used Date Smoking Tobacco: Never Assessed Food Insecurity Answer Date Recorded Food run [...] Date Manny rded Speak language other than Indonesian at home Not on file 05/23/2023 Want help with school or training Not on file 05/23/2023 Substance Use Answer Date Recorded Used prescription meds for non-medical reasons N ot on file 05/23/2023 Used illegal drugs past 12 months Not on file 05/23/2023 Comments Unknown Sex and Gender Information Value Date Recorded Sex Assigned at Not on file Legal Sex Female 4:28 PM CDT Gender Identity Not on file Sexual Orientation Not on file COVID-19 Exposure Response Date Recorded In the last 10 days, have yo u been in contact with someone who was confirmed or suspected to have Coronavirus/COVID-19? No / Unsure 04/29/2022 4:19 PM EST documented as of this encounter Miscellaneous Notes * [employer] Conversion Note - Historical Provider, - 12/12/2021 12:43 PM CDT [address] [address] Visit Date/Time: 12/12/2021 12:43:10 CHARLINE BOND The above patient was seen in the hospital today and needs to be excused from work/school until Return to Work/School Date: 12/14/2021 documented in this encounter Plan of Treatment Not on file documented as of this encounter Visit Diagnoses Not on filedocumented in this encounter Care Teams Control Operator Flow Coat Relationship Specialty Start Date End Date Alan Beyer MD [address] [place] [address] PCP - General Family Medicine 06/08/23 documented as of this encounter
--- OUTSIDE RECORDS SUMMARY | 2024-11-27 14:43 | XMS_ITS | Encounter Summary ---
Author Organization [employer] ([place], [place], [place], [place]) Address [address] [place] [address] Care Team Providers Care Therapist Rrt Name Role Phone Alan Beyer MD Primary Care Provider [phone] Encounter Details Date Type Department Care Team (Late st Contact Info) Description 12/12/2021 Transcribed Document [facility] [place] [address] [place] [address] ProviderJessenia MD [address] [place] [address] Social History Tobacco Use Types [...] Date Manny rded Speak language other than Danish at home Not on file 05/23/2023 Want [...] as of this encounter Miscellaneous Notes * [employer] Conversion Note - Historical Provider, - 12/12/2021 10:01 AM CDT ED Assessment Entered On: 12/12/2021 10:52 EDT Performed On: 12/12/2021 10:15 EDT by Justin Montes Rn ED Quick Look Assessment Level of Consciousness : Alert, Awake Affect/Behavior : Appropriate, Cooperative, Anxious Orientation : Oriented x 4 Skin Temperature : Warm Skin Description : Normal for ethnicity Justin Montes Rn - 12/12/2021 10:51 EDT ED General-Functional Assess Information Obtained From : Patient Preferred Communication Mode : Verbal Communication Barrier : None Primary Language : Danish Any Spiritual/Cultural Needs or Requests : No [...] medications Desires Tobacco Cessation Calc : 1 Justin Montes Rn - 12/12/2021 10:51 EDT Social History (As [...] Updated: 05/03/2020 15:35:18 EST by Jyoti Frazier, Rn) Alcohol: Alcohol Use History No. Alcohol Use Frequency Rarely. (Last Updated: 05/03/2020 15:35:31 EST by Jyoti Frazier, Rn) Alcohol Use History No. (Last Updated: [...] ELVER) Respiratory Respiratory Assessment WDL : WDL Justin Montes Rn - 12/12/2021 10:51 EDT Neurologic ASMT, ED Neurologic Assessment WDL : WDL with exceptions (Comment: PT c/o not feeling like myself pt states shes in a fog [Justin Montes Rn - 12/12/2021 10:51 EDT] ) Justin Montes Rn - 12/12/2021 10:51 EDT Electronically signed by [facility] Conversion Intermodal Truck Driver Cerner at 08/31/2022 5:15 PM CDT documented in this encounter Plan of Treatment Not on file documented as of this encounter Visit Diagnoses Not on filedocumented in this encounter Care Teams Therapist Rrt Relationship Specialty Start Date End Date Alan Beyer MD [address] [place] [address] PCP - General Family Medicine 06/08/23 documented as of this encounter
--- OUTSIDE RECORDS SUMMARY | 2024-11-27 14:43 | XMS_ITS | Encounter Summary ---
Author Organization [employer] ([place], [place], [place], [place]) Address [address] [place] [address] Care Team Providers Care Fermenting Cellars Receiver Name Role Phone Alan Beyer MD Primary Care Provider [phone] Encounter Details Date Type Department Care Team (Late st Contact Info) Description 12/12/2021 Transcribed Document [facility] [place] Family Medicine [address] [place] [address] ProviderJessenia MD [address] [place] [address] Social History Tobacco Use Types [...] Date Manny rded Speak language other than Divehi at home Not on file 05/23/2023 Want [...] Notes * [employer]ner Conversion Note - Historical ProviderMD - 12/12/2021 12:49 PM CDT ED Discharge [...] Work/school Release Given : Yes Dennise Trejo RN - 12/12/2021 12:49 EDT documented in this encounter Plan of Treatment Not on file documented as of this encounter Visit Diagnoses Not on filedocumented in this encounter Care Teams Fermenting Cellars Receiver Relationship Specialty Start Date End Date Alan Beyer MD [address] [place] [address] PCP - General Family Medicine 06/08/23 documented as of this encounter
--- OUTSIDE RECORDS SUMMARY | 2024-11-27 14:43 | XMS_ITS | Encounter Summary ---
Author Organization [employer] ([place], [place], [place], [place]) Address [address] [place] [address] Care Team Providers Care Compressed Air Pile Driver Operator Name Role Phone Alan Beyer MD Primary Care Provider [phone] Encounter Details Date Type Department Care Team (Late st Contact Info) Description 12/12/2021 Transcribed Document [facility] [place] Family Medicine [address] [place] [address] ProviderJessenia MD [address] [place] [address] Social History Tobacco Use [...] Date Manny rded Speak language other than Chinese at home Not on file 05/23/2023 Want [...] Conversion Note - Historical Provider, - 12/12/2021 12:30 PM CDT Electronically signed by Interface, [facility] Conversion [employer] Cerner at 08/31/2022 5:21 PM CDT documented in this encounter Plan of Treatment Not on file documented as of this encounter Visit Diagnoses Not on filedocumented in this encounter Care Teams Compressed Air Pile Driver Operator Relationship Specialty Start Date End Date Alan Beyer MD [address] [place] [address] PCP - General Family Medicine 06/08/23 documented as of this encounter
--- OUTSIDE RECORDS SUMMARY | 2024-11-27 14:43 | XMS_ITS | Encounter Summary ---
Author Organization [employer] ([place], [place], [place], [place]) Address [address] [place] [address] Care Team Providers Care Home Care Physical Therapist Name Role Phone Alan Beyer MD Primary Care Provider [phone] Encounter Details Date Type Department Care Team (Late st Contact Info) Description 12/12/2021 Transcribed Document [facility] [place] [address] [place] [address] ProviderJessenia MD [address] [place] [address] Social History Tobacco Use Types [...] Date Manny rded Speak language other than Armenian at home Not on file 05/23/2023 Want [...] Miscellaneous Notes * Jordan Conversion Note - Historical Provider, - 12/12/2021 12:38 [place] [address] CHARLINE BOND :1980 Visit Time:12/12/2021 Your Visit [...] range between ( 1.0 and 7.0 ) Dickson #: 0.33 K/uL -- Normal range between ( 0.24 and 0.82 ) Eos #: 0.05 K/uL -- Normal range between ( 0.04 and 0.54 ) Dickson %: 7.0 % -- Normal range between [...] ) Urine Bilirubin Dipstick: Negative Urine Specific Otto: 1.015 -- Normal range between ( 1.005 [...] provider. Document Revised: 01/19/2021 Document Reviewed: 01/19/2021 [employer] Patient Education ?? 2020 [employer] 10 Things You Can Do to Manage [...] clean your hands with an alcohol-based hand stock clerk self service store that contains at least 60% alcohol. 8. [...] provider. Document Revised: 01/19/2021 Document Reviewed: 01/19/2021 [employer] Patient Education ?? 2020 [employer]. Emergency Awareness and Preventative Care STROKE is [...] Assistance with quitting is available by contacting 0-934-XFXR-NOW. This is a free resource providing counseling, [...] was given the opportunity to ask questions. Patient/Estimator Project Manager Name: Patient/Estimator Project Manager Signature: Relationship to Patient: Clinician/Hospital Estimator Project Manager Signature: Please Provide a Telephone Number Where You Can Be Reached: Is it Permissible To Leave a Message? Date: Electronically signed by Jannette [facility] Conversion Form Tamping Machine Operator Cerner at 08/31/2022 5:09 PM CDT documented in this encounter Plan of Treatment Not on file documented as of this encounter Visit Diagnoses Not on filedocumented in this encounter Care Teams Home Care Physical Therapist Relationship Specialty Start Date End Date Alan Beyer MD [address] [place] [address] PCP - General Family Medicine 06/08/23 documented as of this encounter
--- OUTSIDE RECORDS SUMMARY | 2024-11-27 14:43 | XMS_ITS | Encounter Summary ---
Author Organization [employer] ([place], [place], [place], [place]) Address [address] [place] [address] Care Team Providers Care Plug Maker Name Role Phone Alan Beyer MD Primary Care Provider [phone] Encounter Details Date Type Department Care Team (Late st Contact Info) Description 12/12/2021 Transcribed Document [facility] [place] Family Medicine [address] [place] [address] ProviderJessenia MD [address] [place] [address] Social History Tobacco Use Types [...] Date Manny rded Speak language other than Albanian at home Not on file 05/23/2023 Want [...] Conversion Note - Historical ProviderMD - 12/12/2021 10:01 AM CDT [place] Suicide Severity Rating Scale (C-SSRS) Entered On: 12/12/2021 10:52 EDT Performed On: 12/12/2021 10:15 EDT by Justin Montes, Rn [place] Suicide Severity Rating Scale (C-SSRS) CSSRS Past Month Wish to be : No CSSRS Past Month Suicidal Thoughts : No CSSRS Lifetime Suicide Behavior : No Suicide Severity Rating Score : 0 Suicide Severity Rating : No Additional Care Required at this time Justin Montes Rn - 12/12/2021 10:51 EDT Electronically signed by Jannette [facility] Conversion Seasonal Sales Associate Cerner at 08/31/2022 5:10 PM CDT documented in this encounter Plan of Treatment Not on file documented as of this encounter Visit Diagnoses Not on filedocumented in this encounter Care Teams Plug Maker Relationship Specialty Start Date End Date Alan Beyer MD [address] [place] [address] PCP - General Family Medicine 06/08/23 documented as of this encounter
--- OUTSIDE RECORDS SUMMARY | 2024-11-27 14:44 | XMS_ITS | Encounter Summary ---
Author Organization [employer] ([place], [place], [place], [place]) Address [address] [place] [address] Care Team Providers Care Auto Service Writer Name Role Phone Alan Beyer MD Primary Care Provider [phone] Encounter Details Date Type Department Care Team ([facility] st Contact Info) Description 02/09/2021 Transcribed Document [facility] [place] Family Medicine [facility] [place] [address] ProviderJessenia MD [address] [place] [address] Social History Tobacco Use Types [...] filedocumented in this encounter Care Teams Auto Service Writer Relationship Specialty Start Date End Date Alan Beyer MD [address] [place] [address] PCP - General Family Medicine 06/08/23 documented as of this encounter
--- OUTSIDE RECORDS SUMMARY | 2024-11-27 14:44 | XMS_ITS | Encounter Summary ---
Author Organization [employer] ([place], [place], [place], [place]) Address [address] [place] [address] Care Team Providers Care Client Delivery Manager Name Role Phone Alan Beyer MD Primary Care Provider [phone] Encounter Details Date Type Department Care Team (Late st Contact Info) Description 03/30/2021 Transcribed Document [facility] [place] Family Medicine [address] [place] [address] ProviderJessenia MD [address] [place] [address] Social History Tobacco Use Types Packs/Day Years Used Date Smoking Tobacco: Never Assessed Comments Unknown Sex and Gender Information Value Date Recorded Sex Assigned at Not on file Legal Sex Female 4:28 PM CDT Gender Identity Not on file Sexual Orientation Not on file documented as of this encounter Miscellaneous Notes * Cerner Conversion Note - Jessenia ProviderMD - 03/30/2021 4:34 AM STITCHING MACHINE OPERATOR [address] [address] Visit Date/Time: 03/30/2021 04:34:37 CHARLINE BOND The above patient was seen in the hospital today and needs to be excused from work/school until Return to Work/School Date:01 April 2021 documented in this encounter Plan of Treatment Not on file documented as of this encounter Visit Diagnoses Not on filedocumented in this encounter Care Teams Client Delivery Manager Relationship Specialty Start Date End Date Alan Beyer MD [address] [place] [address] PCP - General Family Medicine 06/08/23 documented as of this encounter
--- OUTSIDE RECORDS SUMMARY | 2024-11-27 14:44 | XMS_ITS | Encounter Summary ---
Author Organization [employer] ([place], [place], [place], [place]) Address [address] [place] [address] Care Team Providers Care Loss Prevention Auditor Name Role Phone Alan Beyer MD Primary Care Provider [phone] Encounter Details Date Type Department Care Team (Late st Contact Info) Description 02/08/2021 Transcribed Document [facility] [place] [address] [place] [address] ProviderJessenia MD [address] [place] [id number] Social History Tobacco Use Types Packs/Day Years [...] Neurological: migraine. Psychiatric: anxiety. Surgical history: Clavicle ([id number]). Tympanostomy ([id number]). Adenoids ([id number]). shoulder surgery. Gallbladder absent ([id number]). Tubal ligation (173541400). Hysterectomy (903104043). Right knee ([id number]). Comments: 05/03/2020 15:32 Jyoti Tilley Rn menisectomy, [...] rhythm, No ST changes, no ectopy, normal MT & QRS intervals, EP Interp, Nonspecific ST [...] Influenza A H3 Not Detected Influenza A 2009 H1N1 Not Detected Influenza A H1 Not [...] % 47.5 % Lymph # 3.27 K/uL [place] % 4.8 % [place] # 0.33 K/uL Eos % 2.9 % Eos # 0.20 K/uL Baso % 0.3 % Baso # 0.02 K/uL Slide Review No IG# 0 x10(3)/uL IG% 0 % . Chest X-Ray: No acute disease process, interpretation by Emergency Physician. Radiology results: Radiology Results (Last 48 hours) [id number] -- 02/08/2021 17:59 CTA Chest PE Protocol [...] on filedocumented in this encounter Care Teams Loss Prevention Auditor Relationship Specialty Start Date End Date Alan Beyer MD [address] [place] [address] PCP - General Family Medicine 06/08/23 documented as of this encounter
--- OUTSIDE RECORDS SUMMARY | 2024-11-27 14:44 | XMS_ITS | Encounter Summary ---
Author Organization [employer] ([place], [place], [place], [place]) Address [address] [place] [address] Care Team Providers Care Search Marketing Analyst Name Role Phone Alan Beyer MD Primary Care Provider [phone] Encounter Details Date Type Department Care Team (Late st Contact Info) Description 03/30/2021 Transcribed Document [facility] [place] [facility] [place] [address] ProviderJessenia MD [address] [place], [place] [id number] Social History Tobacco Use Types Packs/Day Years Used Date Smoking Tobacco: Never Assessed Comments Unknown Sex and Gender Information Value Date Recorded Sex Assigned at Not on file Legal Sex Female 4:28 PM CDT Gender Identity Not on file Sexual Orientation Not on file documented as of this encounter Miscellaneous Notes * Cerner Conversion Note - Jessenia ProviderMD - 03/30/2021 1:19 AM LABEL TACKER ED Assessment Entered On: 03/30/2021 4:55 EST Performed On: 03/30/2021 1:30 EST by Mp Price, automatic corn grinder operator Quick Look Assessment Level of Consciousness : Alert, Awake Affect/Behavior : Appropriate, Calm, Cooperative Orientation : Oriented x 4 Skin Temperature : Warm Skin Description : Normal for ethnicity Mp Price, Rn - 03/30/2021 4:54 EST ED General-Functional Assess Preferred Communication Mode : Verbal Communication Barrier : None Primary Language : Malagasy Any Spiritual/Cultural Needs or Requests : No [...] - 03/30/2021 4:54 EST Electronically signed by [facility] Conversion Microsoft Dynamics Ax Developer Cerner at 08/31/2022 5:28 PM CDT documented in this encounter Plan of Treatment Not on file documented as of this encounter Visit Diagnoses Not on filedocumented in this encounter Care Teams Search Marketing Analyst Relationship Specialty Start Date End Date Alan Beyer MD [address] [place] [address] PCP - General Family Medicine 06/08/23 documented as of this encounter
--- OUTSIDE RECORDS SUMMARY | 2024-11-27 14:44 | XMS_ITS | Encounter Summary ---
Author Organization [employer] ([place], [place], [place], [place]) Address [address] [place] [address] Care Team Providers Care Closing Coordinator Name Role Phone Alan Beyer MD Primary Care Provider [phone] Encounter Details Date Type Department Care Team (Late st Contact Info) Description 02/08/2021 Transcribed Document [facility] [place] [facility] [address] ProviderJessenia MD [address] [place] [phone] Social History Tobacco Use Types Packs/Day Years [...] CARE BEDSIDE NON-EXEMPT - 02/08/2021 23:02 EDT documented in this encounter Plan of Treatment Not on file documented as of this encounter Visit Diagnoses Not on filedocumented in this encounter Care Teams Closing Coordinator Relationship Specialty Start Date End Date Alan Beyer MD [address] [place] [address] PCP - General Family Medicine 06/08/23 documented as of this encounter
--- OUTSIDE RECORDS SUMMARY | 2024-11-27 14:44 | XMS_ITS | Encounter Summary ---
Author Organization [employer] ([place], [place], [place], [place]) Address [address] [place] [address] Care Team Providers Care Teletype Installer Name Role Phone Alan Beyer MD Primary Care Provider [phone] Encounter Details Date Type Department Care Team (Late st Contact Info) Description 03/16/2020 Transcribed Document [facility] [place] [address] [place] [address] ProviderJessenia MD [address] [place], [place] [id number] Social History Tobacco Use Types Packs/Day Years Used Date Smoking Tobacco: Never Assessed Comments Unknown Sex and Gender Information Value Date Recorded Sex Assigned at Not on file Legal Sex Female 4:28 PM CDT Gender Identity Not on file Sexual Orientation Not on file documented as of this encounter Miscellaneous Notes * [employer]ner Conversion Note - Historical ProviderMD - 03/16/2020 1:15 PM ODD PIECE CHECKER [place] Violence Assessment Entered On: 03/16/2020 16:17 EST Performed On: 03/16/2020 16:17 EST by SHAMA CASTILLO RN [place] Violence Assessment [place] Violence Checklist of Symptoms : None Bro[place] Violence Symptoms Subtotal : 0 [place] Violence Symptoms Indicator : Low risk (0) SHAMA CASTILLO RN - 03/16/2020 16:17 EST Electronically signed by Jannette [facility] Conversion Command And Control Cerner at 08/31/2022 5:01 PM CDT documented in this encounter Plan of Treatment Not on file documented as of this encounter Visit Diagnoses Not on filedocumented in this encounter Care Teams Teletype Installer Relationship Specialty Start Date End Date Alan Beyer MD [address] [place] [address] PCP - General Family Medicine 06/08/23 documented as of this encounter
--- OUTSIDE RECORDS SUMMARY | 2024-11-27 14:44 | XMS_ITS | Encounter Summary ---
Author Organization [employer] ([place], [place], [place], [place]) Address [address] [place] [address] Care Team Providers Care Heel Cover Softener Name Role Phone Alan Beyer MD Primary Care Provider [phone] Encounter Details Date Type Department Care Team (Late st Contact Info) Description 02/08/2021 Transcribed Document [facility] [place] [facility] [address] ProviderJessenia MD [address] [place], [place] [address] Social History Tobacco Use Types Packs/Day Years Used Date Smoking Tobacco: Never Assessed Comments Unknown Sex and Gender Information Value Date Recorded Sex Assigned at Not on file Legal Sex Female 4:28 PM CDT Gender Identity Not on file Sexual Orientation Not on file documented as of this encounter Miscellaneous Notes * Cerner Conversion Note - Jessenia ProviderMD - 02/08/2021 5:59 PM CDT [place] Suicide Severity Rating Scale (C-SSRS) Entered On: 02/08/2021 22:12 EDT Performed On: 02/08/2021 22:10 EDT by John Tavarez RN-PATIENT CARE BEDSIDE NON-EXEMPT [place] Suicide Severity Rating Scale (C-SSRS) CSSRS Past Month Wish to be : No CSSRS Past Month Suicidal Thoughts : No CSSRS Lifetime Suicide Behavior : No Suicide Severity Rating Score : 0 Suicide Severity Rating : No Additional Care Required at this time John Tavarez RN-PATIENT CARE BEDSIDE NON-EXEMPT - 02/08/2021 22:10 EDT documented in this encounter Plan of Treatment Not on file documented as of this encounter Visit Diagnoses Not on filedocumented in this encounter Care Teams Heel Cover Softener Relationship Specialty Start Date End Date Alan Beyer MD [address] [place] [address] PCP - General Family Medicine 06/08/23 documented as of this encounter
--- OUTSIDE RECORDS SUMMARY | 2024-11-27 14:44 | XMS_ITS | Encounter Summary ---
Author Organization [employer] ([place], [place], [place], [place]) Address [address] [place] [address] Care Team Providers Care Band Sewer Name Role Phone Alan Beyer MD Primary Care Provider [phone] Encounter Details Date Type Department Care Team (Late st Contact Info) Description 03/30/2021 Transcribed Document [facility] [place] Medicine [facility] [place] [address] ProviderJessenia MD [address] [place] [address] Social History Tobacco Use Types [...] - Jessenia ProviderMD - 03/30/2021 1:19 AM FRONT END SOFTWARE ENGINEER [place] Violence Assessment Entered On: 03/30/2021 4:35 EST Performed On: 03/30/2021 1:30 EST by Mp Price, Rn [place] Violence Assessment [place] Violence Checklist of Symptoms : None Bro[place] Violence Symptoms Subtotal : 0 [place] Violence Symptoms Indicator : Low risk (0) Mp Price, Rn - 03/30/2021 4:35 EST Electronically signed by Jannette [facility] Conversion Contracts Specialist Cerner at 08/31/2022 4:57 PM CDT documented in this encounter Plan of Treatment Not on file documented as of this encounter Visit Diagnoses Not on filedocumented in this encounter Care Teams Band Sewer Relationship Specialty Start Date End Date Alan Beyer MD [address] [place] [address] PCP - General Family Medicine 06/08/23 documented as of this encounter
--- OUTSIDE RECORDS SUMMARY | 2024-11-27 14:44 | XMS_ITS | Encounter Summary ---
Author Organization [employer] ([place], [place], [place], [place]) Address [address] [place] [address] Care Team Providers Care Pan Helper Name Role Phone Alan Beyer MD Primary Care Provider [phone] Encounter Details Date Type Department Care Team (Late st Contact Info) Description 03/30/2021 Transcribed Document [facility] Radiology [address] [place] [address] Yomi Rodríguez MD [address] [place] [address] Dept. of Emergency Medicine [place], [place] [id number] Social History Tobacco Use Types Packs/Day Years [...] further action required Electronically signed by Jannette [facility] Conversion Pricing Supervisor Cerner at 08/31/2022 5:13 PM CDT documented in this encounter Plan of Treatment Not on file documented as of this encounter Visit Diagnoses Not on filedocumented in this encounter Care Teams Pan Helper Relationship Specialty Start Date End Date Alan Beyer MD [address] [place] [address] PCP - General Family Medicine 06/08/23 documented as of this encounter
--- OUTSIDE RECORDS SUMMARY | 2024-11-27 14:44 | XMS_ITS | Clinical Summary ---
Author Organization [employer] ([place], [place], [place], [place]) Address [address] [place] [address] Care Team Providers Care Collar Stitcher Name Role Phone Alan Beyer MD Primary Care Provider [phone] Allergies Active Allergy Reactions Criticality Noted Date [...] acyclovir (ZOVIRAX) 5 % cream SMARTSIG:Topi robyn Active albuterol HFA (VENTOLIN HFA) 90 mcg/actuation [...] drink = 0.6 oz pur e alcohol) Food Insecurity Answer Date Recorded Food run [...] Date Manny rded Speak language other than Khmer at home Not on file 05/23/2023 Want [...] 2001 Lipid Panel 2002 Pap Smear 11/06/2003 Breast Cancer Screening 2022 COVID-19 VACCINE (4 - 2023-2 5 season) 2024 07/29/2021, 02/28/2021, 02/03/2021 Tobacco Cessation Counseling and Screening (12+) 06/13/2024 06/13/2023 Influenza Vaccine (#1) 2025 , 02/09/2018, 02/13/2017 Pneumococcal Vaccine: 0-49 Years Aged Out 02/20/2017, 02/13/2017, 02/16/2016 No longer eligible based on patient's age to complete this topic Insurance [employer] Advance Directives For more information, please contact: [phone] * Full Code (Latest Code Status on File) Date Activated Date Inactivated Comments 06/13/2023 8:10 AM 06/13/2023 10:29 AM * Full Code Date Activated Date Inactivated Comments 06/13/2023 6:03 AM 06/13/2023 8:10 AM Care Teams Collar Stitcher Relationship Specialty Start Date End Date Alan Beyer MD [address] [place] [address] PCP - General Family Medicine 06/08/23
--- OUTSIDE RECORDS SUMMARY | 2024-11-27 14:44 | XMS_ITS | Encounter Summary ---
Author Organization [employer] ([place], [place], [place], [place]) Address [address] [place] [address] Care Team Providers Care Laboratory Animal Facility Supervisor Name Role Phone Alan Beyer MD Primary Care Provider [phone] Encounter Details Date Type Department Care Team (Late st Contact Info) Description 03/30/2021 Transcribed Document [facility] [place] [facility] [place] [address] ProviderJessenia MD [address] [place] [id number] Social History Tobacco Use Types Packs/Day Years Used Date Smoking Tobacco: Never Assessed Comments Unknown Sex and Gender Information Value Date Recorded Sex Assigned at Not on file Legal Sex Female 4:28 PM CDT Gender Identity Not on file Sexual Orientation Not on file documented as of this encounter Miscellaneous Notes * [employer] Conversion Note - Jessenia ProviderMD - 03/30/2021 4:40 AM DISH TECHNICIAN ED Discharge Entered On: 03/30/2021 4:43 EST Performed On: 03/30/2021 4:40 EST by Mp Price, Real Estate Professor Process Patient Disposition : Discharge Personal Belongings With Patient : Yes Patient Education Completed : Yes Teaching Evaluation : Verbalizes understanding IV Discontinued : Yes Nursing Documentation Completed : Yes Mp Price, Rn - 03/30/2021 4:42 EST ED Discharge Discharge To : Home with ambulatory/outpatient follow-up Discharge Instructions Reviewed With, Opportunity For Questions Given : Patient Prescriptions Given to Patient : Electronically sent Number of Prescriptions Given : 2 Medications Given to Patient : No Mp Price, Rn - 03/30/2021 4:42 EST Electronically signed by [facility], [facility] Conversion Senior Wind Energy Consultant Cerner at 08/31/2022 4:57 PM CDT documented in this encounter Plan of Treatment Not on file documented as of this encounter Visit Diagnoses Not on filedocumented in this encounter Care Teams Laboratory Animal Facility Supervisor Relationship Specialty Start Date End Date Alan Beyer MD [address] [place] [address] PCP - General Family Medicine 06/08/23 documented as of this encounter
--- OUTSIDE RECORDS SUMMARY | 2024-11-27 14:44 | XMS_ITS | Encounter Summary ---
Author Organization [employer] ([place], [place], [place], [place]) Address [address] [place] [address] Care Team Providers Care Buccaro Name Role Phone Alan Beyer MD Primary Care Provider [phone] Encounter Details Date Type Department Care Team (Late st Contact Info) Description 03/30/2021 Transcribed Document [facility] [place] [facility] [place] [address] ProviderJessenia MD [address] [place] [phone] Social History Tobacco Use Types Packs/Day Years Used Date Smoking Tobacco: Never Assessed Comments Unknown Sex and Gender Information Value Date Recorded Sex Assigned at Not on file Legal Sex Female 4:28 PM CDT Gender Identity Not on file Sexual Orientation Not on file documented as of this encounter Miscellaneous Notes * [employer] Conversion Note - Jessenia ProviderMD - 03/30/2021 1:19 AM WIRELINE OPERATOR [place] Suicide Severity Rating Scale (C-SSRS) Entered On: 03/30/2021 4:35 EST Performed On: 03/30/2021 1:30 EST by Mp Price, Rn [place] Suicide Severity Rating Scale (C-SSRS) CSSRS Past Month Wish to be : No CSSRS Past Month Suicidal Thoughts : No CSSRS Lifetime Suicide Behavior : No Suicide Severity Rating Score : 0 Suicide Severity Rating : No Additional Care Required at this time Mp Price Rn - 03/30/2021 4:35 EST Electronically signed by Jannette [facility] Conversion Freelance Programmer/App Developer Cerner at 08/31/2022 4:57 PM CDT documented in this encounter Plan of Treatment Not on file documented as of this encounter Visit Diagnoses Not on filedocumented in this encounter Care Teams Buccaro Relationship Specialty Start Date End Date Alan Beyer MD [address] [place] [address] PCP - General Family Medicine 06/08/23 documented as of this encounter
--- OUTSIDE RECORDS SUMMARY | 2024-11-27 14:44 | XMS_ITS | Encounter Summary ---
Author Organization [employer] ([place], [place], [place], [place]) Address [address] [place] [address] Care Team Providers Care Solar Sales Associate Name Role Phone Alan Beyer MD Primary Care Provider [phone] Encounter Details Date Type Department Care Team (Late st Contact Info) Description 06/13/2023 Surgery [facility] Surgery Department [address] [place] [address] Yamil Rehman MD [address] [facility] 2nd [place] [address] Social History Tobacco Use Types Packs/Day Years [...] Date Manny rded Speak language other than Tu[place] at home Not on file 05/23/2023 Want [...] on filedocumented in this encounter Care Teams Solar Sales Associate Relationship Specialty Start Date End Date Alan Beyer MD [address] [place] [address] PCP - General Family Medicine 06/08/23 documented as of this encounter
--- OUTSIDE RECORDS SUMMARY | 2024-11-27 14:44 | XMS_ITS | Encounter Summary ---
Author Organization [employer] ([place], [place], [place], [place]) Address [address] [place] [address] Care Team Providers Care Ruffler Name Role Phone Alan Beyer MD Primary Care Provider [phone] Encounter Details Date Type Department Care Team (Late st Contact Info) Description 02/08/2021 Transcribed Document [facility] [place] [facility] [place] [address] ProviderJessenia MD [address] [place] [id number] Social History Tobacco Use Types Packs/Day Years Used Date Smoking Tobacco: Never Assessed Comments Unknown Sex and Gender Information Value Date Recorded Sex Assigned at Not on file Legal Sex Female 4:28 PM CDT Gender Identity Not on file Sexual Orientation Not on file documented as of this encounter Miscellaneous Notes * Cerner Conversion Note - Jessenia ProviderMD - 02/08/2021 5:59 PM CDT ED Triage Entered On: 02/08/2021 18:14 EDT Performed On: 02/08/2021 18:11 EDT by Jyoti Cordon RN ED Triage Across the Room Chief Complaint : Soa since yesterday. Aso with congestion and cough and VENTURA. Triage Date/Time : 02/08/2021 18:11 EDT Jyoti Cordon RN - 02/08/2021 18:11 EDT DCP GENERIC CODE Tracking Group : [facility] East Tracking Acuity : 3 - Urgent Jyoti [...] Onset Date: Unspecified ; Comments: Comment 1: bubbaws up and itching ; Created By: Breanna [...] 02/08/2021 18:14:42 EDT) Problems(Active) Anxiety (SNOMED CT :25177440 ) Name of Problem: Anxiety ; Recorder: ERICKA ISSA RN; Confirmation: Confirmed ; Classification: Medical ; Code: 64621499 ; Contributor System: NervedaChart ; Last Updated: 07/26/2015 22:28 EDT ; Life Cycle Date: 07/26/2015 ; Life Cycle Status: Active ; Vocabulary: SNOMED CT Endometriosis, vagina (SNOMED CT :01089242 ) Name of Problem: Endometriosis, vagina ; Recorder: Breanna Ivey RN; Confirmation: Confirmed ; Classification: Medical ; Code: [id number] ; Contributor System: PowerChart ; Last Updated: 05/24/2018 10:54 EST ; Life Cycle Date: 05/24/2018 ; Life Cycle Status: Active ; Vocabulary: SNOMED CT Kidney stones (SNOMED CT :946498469 ) Name of Problem: Kidney stones ; Recorder: KAYY ANDREW; Confirmation: Confirmed ; Classification: Medical ; Code: 463553142 ; Contributor System: PowerChart ; Last Updated: 06/06/2016 9:30 EST ; Life Cycle Date: 06/06/2016 ; Life Cycle Status: Active ; Vocabulary: SNOMED CT Migraine (SNOMED CT :26213626 ) Name of Problem: Migraine ; Recorder: ERICKA ISSA RN; Confirmation: Confirmed ; Classification: Medical ; Code: 40295665 ; Contributor System: PowerChart ; Last Updated: 07/26/2015 22:28 EDT ; Life Cycle Date: 07/26/2015 ; Life Cycle Status: Active ; Vocabulary: SNOMED CT S/P hysterectomy (SNOMED CT :396059930 ) Name of Problem: S/P hysterectomy ; Recorder: LEONID CASTANEDA RN; Confirmation: Confirmed ; Classification: Medical ; Code: 313986420 ; Contributor System: PowerChart ; Last Updated: 11/06/2019 20:08 EDT ; Life Cycle Date: 11/06/2019 ; Life Cycle Status: Active ; Vocabulary: SNOMED CT Shoulder pain, left (SNOMED CT :52583251 ) Name of Problem: Shoulder pain, left ; Recorder: Breanna Ivey RN; Confirmation: Confirmed ; Classification: Medical ; Code: 49829114 ; Contributor System: PowerChart ; Last Updated: 05/24/2018 10:53 EST ; Life Cycle Date: 05/24/2018 ; Life Cycle Status: Active ; Vocabulary: SNOMED CT Diagnoses(Active) Cough Date: 02/08/2021 ; Diagnosis Type: Reason For Visit ; Confirmation: Complaint of ; Clinical Dx: Cough ; Classification: Medical ; Clinical Service: Emergency medicine ; Code: PNED ; Probability: 0 ; Diagnosis Code: [id number] ED Height and Weight Height Source : Stated Height Entry Format : [place] Height, Feet : 5 ft(Converted to: 152 cm, 60 Inch) Height, Inches : 1 Inch(Converted to: 0 ft 1 Inch, 2.54 cm) Clinical Height : 154.94 cm Weight Source, ED : Standing scale Weight Entry Format : [place] Weight, Pounds : 170 lb Clinical Dosing Weight : 77.27 kg Body Surface Area (BSA) : 1.76 m2 Body Mass Index : 32.2 kg/m2 (HI) [place] Body Weight (IBW) : 47.45 kg Jyoti Cordon RN - 02/08/2021 18:11 EDT Triage Initial Exam and Interventions, ED Level of Consciousness : Alert, Awake Affect/Behavior : Calm, Cooperative Orientation : Oriented x 4 Skin Temperature : Warm Skin Description : Normal for ethnicity Jyoti Cordon RN - 02/08/2021 18:11 EDT Electronically signed by Trevon Bhatia Conversion Belting And Webbing Inspector Cerner at 08/31/2022 5:16 PM CDT documented in this encounter Plan of Treatment Not on file documented as of this encounter Visit Diagnoses Not on filedocumented in this encounter Care Teams Ruffler Relationship Specialty Start Date End Date Alan Beyer MD [address] [place] [address] PCP - General Family Medicine 06/08/23 documented as of this encounter
--- OUTSIDE RECORDS SUMMARY | 2024-11-27 14:44 | XMS_ITS | Encounter Summary ---
Author Organization [employer] ([place], [place], [place], [place]) Address [address] [place] [address] Care Team Providers Care Consulting Utility Forester Name Role Phone Alan Beyer MD Primary Care Provider [phone] Encounter Details Date Type Department Care Team (Late st Contact Info) Description 03/30/2021 Transcribed Document [facility] [place] [address] ProviderJessenia MD [address] [place] [address] Social History Tobacco Use Types Packs/Day [...] Jessenia Alvarez MD - 03/30/2021 4:37 AM CHEMICAL PROCESS ENGINEER [place] [id number] CHARLINE BOND :1980 Visit Time:03/30/2021 Your Visit [...] Tab, 0 refill(s), Route to Pharmacy Electronically, [place] [address] predniSONE 10 mg oral tablet See Instructions, Tab, Six-day tapering Dosepak, 21 Tab, 0 refill(s), Route to Pharmacy Electronically, [place] [address] Where: [address] [place] [address]- Business (1) Allergies Bactrim acetaminophen-oxyCODONE clindamycin Toradol baclofen doxycycline escitalopram fentaNYL lidocaine topical 2% gel meperidine morphine penicillin (Hives) tetanus immune globulin Immunizations This Visit No Immunizations Found Medications What How Much When Instructions Next Dose cyclobenzaprine (cyclobenzaprine 10 mg oral tablet) 1 Tablet(s) Oral Three Times A Day as needed for as needed for spasm Duration: 5 Day(s) Pickup at [place] [address] predniSONE (predniSONE 10 mg oral tablet) See instructions Six-day tapering Dosepak Pickup at [place] [address] conjugated estrogens (Premarin) Vaginal Weekly cream fexofenadine (Karine) Oral Every Day ibuprofen 400 Milligram(s) Oral Every 8 Hours as needed for as needed for pain methocarbamol (Robaxin-750 oral tablet) 1 Tablet(s) Oral Every Day valACYclovir (Valtrex) 500 Milligram(s) Oral Every Day fever blister Pharmacy Information [facility]: [address] [place], [place] [id number] [phone] The home medications listed are only as [...] range between ( 1.0 and 7.0 ) [place] #: 0.50 K/uL -- Normal range between ( 0.24 and 0.82 ) Eos #: 0.31 K/uL -- Normal range between ( 0.04 and 0.54 ) [place] %: 7.2 % -- Normal range between [...] information ??? National Heart, Lung, and Blood [place]: www.nhlbi.nih.gov ??? [employer] Heart Association: www.heart.org Contact a health care [...] provider. Document Revised: 06/04/2020 Document Reviewed: 03/30/2020 [employer] Patient Education ?? 2020 [employer] Hypertension, Adult Hypertension is another name [...] doctor. This is important. Medicines ??? Take fvop-oaf-yagxggv and prescription medicines only as told by [...] provider. Document Revised: 01/08/2019 Document Reviewed: 01/08/2019 [employer] Patient Education ?? 2020 [employer] Nonspecific Chest Pain Chest pain can [...] these instructions at home: Medicines ??? Take orvp-cri-dxaywfm and prescription medicines only as told by [...] Eating a heart-healthy diet. A diet and nutritional chemist (dietitian) can help you to learn healthy [...] provider. Document Revised: 10/31/2018 Document Reviewed: 10/31/2018 [employer] Patient Education ?? 2020 [employer] General Headache Without Cause A headache [...] with your condition: Managing pain ??? Take bbxc-bez-wpzgoap and prescription medicines only as told by [...] Assistance with quitting is available by contacting 3-980-HWCI-NOW. This is a free resource providing counseling, support, and referral. Or you may contact your personal physician. [employer] Suicide Prevention Lifeline: The National Suicide Prevention [...] was given the opportunity to ask questions. Patient/Highway Administrative Engineer Name: Patient/Highway Administrative Engineer Signature: Relationship to Patient: Clinician/Hospital Highway Administrative Engineer Signature: Please Provide a Telephone Number Where You Can Be Reached: Is it Permissible To Leave a Message? Date: Electronically signed by Jannette, [facility] Conversion Chemistry Lab Instructor Cerner at 08/31/2022 5:07 PM CDT documented in this encounter Plan of Treatment Not on file documented as of this encounter Visit Diagnoses Not on filedocumented in this encounter Care Teams Consulting Utility Forester Relationship Specialty Start Date End Date Alan Beyer MD [address] [facility] [place] [address] PCP - General Family Medicine 06/08/23 documented as of this encounter
--- OUTSIDE RECORDS SUMMARY | 2024-11-27 14:44 | XMS_ITS | Encounter Summary ---
Author Organization [employer] ([place], [place], [place], [place]) Address [address] [place] [address] Care Team Providers Care Hoist Operator Name Role Phone Alan Beyer MD Primary Care Provider [phone] Encounter Details Date Type Department Care Team (Late st Contact Info) Description 02/08/2021 Transcribed Document [facility] [place] [facility] [place] [address] ProviderJessenia MD [address] [place] [id number] Social History Tobacco Use Types Packs/Day Years [...] Communication Barrier : None Primary Language : Congolese Any Spiritual/Cultural Needs or Requests : No [...] 22:10 EDT Musculoskeletal Musculoskeletal Assessment WDL : CHACHOL John Tavarez RN-PATIENT CARE BEDSIDE NON-EXEMPT - 02/08/2021 22:10 EDT Neurologic ASMT, ED Neurologic Assessment WDL : WDL with exceptions Neurological Symptoms : Headache Level of Consciousness : Alert, Awake Affect/Behavior : Appropriate, Calm, Cooperative Orientation : Oriented x 4 John Tavarez RN-PATIENT CARE BEDSIDE NON-EXEMPT - 02/08/2021 22:10 EDT Electronically signed by [facility], [facility] Conversion Custodian Cerner at 08/31/2022 5:23 PM CDT documented in this encounter Plan of Treatment Not on file documented as of this encounter Visit Diagnoses Not on filedocumented in this encounter Care Teams Hoist Operator Relationship Specialty Start Date End Date Alan Beyer MD [address] [place] [address] PCP - General Family Medicine 06/08/23 documented as of this encounter
--- OUTSIDE RECORDS SUMMARY | 2024-11-27 14:44 | XMS_ITS | Encounter Summary ---
Author Organization [employer] ([place], [place], [place], [place]) Address [address] [place] [address] Care Team Providers Care Foreign Food Cook Specialty Name Role Phone Alan Beyer MD Primary Care Provider Encounter Details Date Type Department Care Team (Late st Contact Info) Description 02/08/2021 Transcribed Document [facility] [place] [facility] [place] [address] ProviderJessenia MD [address] [place], [place] [id number] Social History Tobacco Use Types Packs/Day Years Used Date Smoking Tobacco: Never Assessed Comments Unknown Sex and Gender Information Value Date Recorded Sex Assigned at Not on file Legal Sex Female 4:28 PM CDT Gender Identity Not on file Sexual Orientation Not on file documented as of this encounter Miscellaneous Notes * Cerner Conversion Note - Jessenia ProviderMD - 02/08/2021 5:59 PM CDT Broset Violence Assessment Entered On: 02/08/2021 22:12 EDT Performed On: 02/08/2021 22:10 EDT by John Tavarez RN-PATIENT CARE BEDSIDE NON-EXEMPT Broset Violence Assessment Broset Violence Checklist of Symptoms : None Broset Violence Symptoms Subtotal : 0 Broset Violence Symptoms Indicator : Low risk (0) Broset Interventions : [place] precautions for safety used John Tavarez RN-PATIENT CARE BEDSIDE NON-EXEMPT - 02/08/2021 22:10 EDT documented in this encounter Plan of Treatment Not on file documented as of this encounter Visit Diagnoses Not on filedocumented in this encounter Care Teams Foreign Food Cook Specialty Relationship Specialty Start Date End Date Alan Beyer MD [address] [place] [address] PCP - General Family Medicine 06/08/23 documented as of this encounter
--- OUTSIDE RECORDS SUMMARY | 2024-11-27 14:44 | XMS_ITS | Encounter Summary ---
Author Organization [employer] ([place], [place], [place], [place]) Address [address] [place] [address] Care Team Providers Care Traffic Survey Technician Name Role Phone Alan Beyer MD Primary Care Provider [phone] Encounter Details Date Type Department Care Team (Late st Contact Info) Description 03/30/2021 Transcribed Document [facility] [place] [address] ProviderJessenia MD [address] [place], [place] [id number] Social History Tobacco Use Types Packs/Day Years Used Date Smoking Tobacco: Never Assessed Comments Unknown Sex and Gender Information Value Date Recorded Sex Assigned at Not on file Legal Sex Female 4:28 PM CDT Gender Identity Not on file Sexual Orientation Not on file documented as of this encounter Miscellaneous Notes * Cerner Conversion Note - Jessenia ProviderMD - 03/30/2021 4:31 AM CHEMICAL PLANT OPERATOR SUPERVISOR Electronically signed by [facility] Conversion Human Resources File Clerk Cerner at 08/31/2022 5:23 PM CDT documented in this encounter Plan of Treatment Not on file documented as of this encounter Visit Diagnoses Not on filedocumented in this encounter Care Teams Traffic Survey Technician Relationship Specialty Start Date End Date Alan Beyer MD [address] [place] [address] PCP - General Family Medicine 06/08/23 documented as of this encounter
--- OUTSIDE RECORDS SUMMARY | 2024-11-27 14:44 | XMS_ITS | Referral Summary ---
Author Organization [employer] ([place], [place], [place], [place]) Address [address] [place] [address] Care Team Providers Care Punchboard Stuffer Name Role Phone Alan Beyer MD Primary Care Provider [phone] Allergies Active Allergy Reactions Criticality Noted Date [...] Date Manny rded Speak language other than Yakut at home Not on file 05/23/2023 Want [...] Plan of Treatment Not on file Insurance [facility] Advance Directives For more information, please contact: [phone] * Full Code (Latest Code Status on File) Date Activated Date Inactivated Comments 06/13/2023 8:10 AM 06/13/2023 10:29 AM * Full Code Date Activated Date Inactivated Comments 06/13/2023 6:03 AM 06/13/2023 8:10 AM Care Teams Punchboard Stuffer Relationship Specialty Start Date End Date Alan Beyer MD [address] [place] [address] PCP - General Family Medicine 06/08/23
--- OUTSIDE RECORDS SUMMARY | 2024-11-27 14:44 | XMS_ITS | Encounter Summary ---
Author Organization [employer] ([place], [place], [place], [place]) Address [address] [place] [address] Care Team Providers Care Modeler Name Role Phone Alan Beyer MD Primary Care Provider [phone] Encounter Details Date Type Department Care Team (Late st Contact Info) Description 03/16/2020 Transcribed Document [facility] [place] Family Medicine [address] [place] [address] ProviderJessenia MD [address] [place] [phone] Social History Tobacco Use Types Packs/Day Years Used Date Smoking Tobacco: Never Assessed Comments Unknown Sex and Gender Information Value Date Recorded Sex Assigned at Not on file Legal Sex Female 4:28 PM CDT Gender Identity Not on file Sexual Orientation Not on file documented as of this encounter Miscellaneous Notes * Cerner Conversion Note - Jessenia ProviderMD - 03/16/2020 1:15 PM SEWER HAND ED Assessment Entered On: 03/16/2020 16:19 EST [...] Communication Barrier : None Primary Language : Zimbabwean Any Spiritual/Cultural Needs or Requests : No [...] Updated: 12/16/2017 15:18:02 EDT by SHAMA CASTILLO, EL[place]) 10 or more cigarettes (1/2 pack or more)/day in last 30 days Smoking Status. Refused tobacco status screen Smokeless Tobacco Status. None Smokeless Tobacco Use History. Years of Use: 17. (Last Updated: 05/24/2018 10:39:04 EST by Breanna Ivey, ELVER) Alcohol: Alcohol Use History No. (Last Updated: [...] on filedocumented in this encounter Care Teams Modeler Relationship Specialty Start Date End Date Alan Beyer MD [address] [place] [address] PCP - General Family Medicine 06/08/23 documented as of this encounter
--- OUTSIDE RECORDS SUMMARY | 2024-11-27 14:44 | XMS_ITS | Encounter Summary ---
Author Organization [employer] ([place], [place], [place], [place]) Address [address] [place] [address] Care Team Providers Care Fish Tender Name Role Phone Alan Beyer MD Primary Care Provider [phone] Encounter Details Date Type Department Care Team (Late st Contact Info) Description 02/08/2021 Transcribed Document [facility] [place] [facility] [place] [address] ProviderJessenia MD [address] [place], [place] [phone] Social History Tobacco Use Types Packs/Day Years [...] 02/08/2021 10:54 PM CDT Electronically signed by [facility], [facility] Conversion Reproducer Cerner at 08/31/2022 5:00 PM CDT documented in this encounter Plan of Treatment Not on file documented as of this encounter Visit Diagnoses Not on filedocumented in this encounter Care Teams Fish Tender Relationship Specialty Start Date End Date Alan Beyer MD [address] [place] [address] PCP - General Family Medicine 06/08/23 documented as of this encounter
--- OUTSIDE RECORDS SUMMARY | 2024-11-27 14:44 | XMS_ITS | Encounter Summary ---
Author Organization [employer] ([place], [place], [place], [place]) Address [address] [place] [address] Care Team Providers Care Sock Drier Name Role Phone Alan Beyer MD Primary Care Provider [phone] Encounter Details Date Type Department Care Team (Late st Contact Info) Description 03/30/2021 Transcribed Document [facility] [place] [address] [place] [address] ProviderJessenia MD [address] [place] [address] [id number] Social History Tobacco Use Types Packs/Day Years Used Date Smoking Tobacco: Never Assessed Comments Unknown Sex and Gender Information Value Date Recorded Sex Assigned at Not on file Legal Sex Female 4:28 PM CDT Gender Identity Not on file Sexual Orientation Not on file documented as of this encounter Miscellaneous Notes * Cerner Conversion Note - Jessenia Alvarez MD - 03/30/2021 1:50 AM POUCH MAKING MACHINE OPERATOR Patient: CHARLINE BOND Age: 40 years Sex: Female : 1980 Associated Diagnoses: Hypertension; Nonspecific chest pain; Headache Author: JAVI TRUJILLO MD Basic Information Time seen: Date & time 03/30/2021 01:50:00, Voice recognition / quality lab technician technology used for some documentation in this [...] migraine, headache. Psychiatric: anxiety. Surgical history: Clavicle ([id number]). Tympanostomy ([id number]). Adenoids (333296766). shoulder surgery. Gallbladder absent (743302922). Tubal ligation (547351834). Hysterectomy (789402485). Right knee (70073567). Comments: 05/03/2020 15:32 EST - Jyoti Frazier [...] EST Height Source Measured Height Entry Format [place] Height/Length, [place] (ft) 5 ft Height/Length [place] 6 Inch CLINICALHEIGHT 167.64 cm [place] Body Weight 58.88 kg Weight Source, ED Critical estimated dosing weight Weight Entry Format [place] Weight Chinese lb 170 lb CLINICALWEIGHT 77.27 kg Body [...] Assessment: ED C-SSRS: ED Clinical Reconciliation: ED ophthalmologist retina specialist: EKG: Pulse Oximetry Continuous Monitoring: Ordered (Exam [...] % 43.8 % Lymph # 3.03 K/uL [place] % 7.2 % [place] # 0.50 K/uL Eos % 4.5 % Eos # 0.31 K/uL Baso % 0.4 % Baso # 0.03 K/uL Slide Review No IG# 0 x10(3)/uL IG% 0 % . Chest X-Ray: Time reported 03/30/2021 02:18:00, no acute disease process, View: AP, interpretation by Emergency Physician. Radiology results: Computed tomography, interpretation: Preliminary Report NAME: CHARLINE BOND / SEX: 1980 / Female MRN / ACC#: [id number] / [id number] ORDERING PHYSICIAN: Ordering Provider, Update EXAM REQUESTED: [id number]--AB HEAD/BRAIN W/O CONTRAST FACILITY: [facility] DATE: 03/30/2021 RADIOLOGIST NAME: MD Titus [...] was screened for and treated during the [id number]-[id number] epidemic, with some possible constraints and deviations [...] 4:28 EST, Discharge to: Home. Prescriptions: Prescription [facility]: cyclobenzaprine 10 mg oral tablet (Prescribe): 1 Tab, Oral, TID, for 5 Day(s), PRN: as needed for spasm, 15 Tab, 0 Refill(s) predniSONE 10 mg oral tablet (Prescribe): See Instructions, Six-day tapering Dosepak, 21 Tab, 0 Refill(s). Patient was given the following educational materials: General Headache Without Cause, Nonspecific Chest Pain, Adult, Iexu-cm-Sqvk, Hypertension, Adult, Ceau-qp-Ggux, Managing Your Hypertension. Limitations: Limited activity. Follow [...] Tab, 0 refill(s), Route to Pharmacy Electronically, [facility] [address] predniSONE 10 mg oral tablet See Instructions, Tab, Six-day tapering Dosepak, 21 Tab, 0 refill(s), Route to Pharmacy Electronically, [place] [address] . Counseled: Patient, Regarding diagnosis, Regarding diagnostic [...] on filedocumented in this encounter Care Teams Sock Drier Relationship Specialty Start Date End Date Alan Beyer MD [address] [place] [address] PCP - General Family Medicine 06/08/23 documented as of this encounter
--- OUTSIDE RECORDS SUMMARY | 2024-11-27 14:44 | XMS_ITS | Encounter Summary ---
Author Organization [employer] ([place], [place], [place], [place]) Address [address] [place] [address] Care Team Providers Care Turn Out Worker Name Role Phone Alan Beyer MD Primary Care Provider [phone] Encounter Details Date Type Department Care Team ([facility] st Contact Info) Description 02/08/2021 Transcribed Document [facility] [place] [address] ProviderJessenia MD [address] [place], [place] [phone] Social History Tobacco Use Types Packs/Day Years Used Date Smoking Tobacco: Never Assessed Comments Unknown Sex and Gender Information Value Date Recorded Sex Assigned at Not on file Legal Sex Female 4:28 PM CDT Gender Identity Not on file Sexual Orientation Not on file documented as of this encounter Miscellaneous Notes * Cerner Conversion Note - Jessenia ProviderMD - 02/08/2021 10:51 PM CDT SARS-CoV-2 (COVID19 PCR) - - Not Detected 02/08/2021 22:31 02/08/2021 22:51 (JENNIFER HOWELL PA) Reviewed by Provider, No further action required documented in this encounter Plan of Treatment Not on file documented as of this encounter Visit Diagnoses Not on filedocumented in this encounter Care Teams Turn Out Worker Relationship Specialty Start Date End Date Alan Beyer MD [address] [place] [address] PCP - General Family Medicine 06/08/23 documented as of this encounter
--- OUTSIDE RECORDS SUMMARY | 2024-11-27 14:45 | XMS_ITS | Encounter Summary ---
Author Organization [employer] ([place], [place], [place], [place]) Address [address] [place] [address] Care Team Providers Care Legal Investigator Name Role Phone Alan Beyer MD Primary Care Provider [phone] Encounter Details Date Type Department Care Team (Late st Contact Info) Description 03/16/2020 Transcribed Document [facility] [place] [address] [place] [address] ProviderJessenia MD [address] [place], [place] [address] Social History Tobacco Use Types Packs/Day Years Used Date Smoking Tobacco: Never Assessed Comments Unknown Sex and Gender Information Value Date Recorded Sex Assigned at Not on file Legal Sex Female 4:28 PM CDT Gender Identity Not on file Sexual Orientation Not on file documented as of this encounter Miscellaneous Notes * Cerner Conversion Note - Jessenia ProviderMD - 03/16/2020 5:41 PM SPEECH CORRECTION ASSISTANT ED Discharge Entered On: 03/16/2020 17:42 EST [...] 03/16/2020 17:41 EST Electronically signed by Jannette, [facility] Conversion Wash Plant Operator Cerner at 08/31/2022 5:12 PM CDT documented in this encounter Plan of Treatment Not on file documented as of this encounter Visit Diagnoses Not on filedocumented in this encounter Care Teams Legal Investigator Relationship Specialty Start Date End Date Alan Beyer MD [address] [place] [address] PCP - General Family Medicine 06/08/23 documented as of this encounter
--- OUTSIDE RECORDS SUMMARY | 2024-11-27 14:45 | XMS_ITS | Encounter Summary ---
Author Organization [employer] ([place], [place], [place], [place]) Address [address] [place] [address] Care Team Providers Care Mobility Architect Manager Name Role Phone Alan Beyer MD Primary Care Provider [phone] Encounter Details Date Type Department Care Team (Late st Contact Info) Description 05/30/[address] [facility] [place] [address] ProviderJessenia MD [address] [place], [place] [id number] Social History Tobacco Use Types Packs/Day Years Used Date Smoking Tobacco: Never Assessed Comments Unknown Sex and Gender Information Value Date Recorded Sex Assigned at Not on file Legal Sex Female 4:28 PM CDT Gender Identity Not on file Sexual Orientation Not on file documented as of this encounter Miscellaneous Notes * Cerner Conversion Note - Jessenia ProviderMD - 05/30/2021 7:27 PM TECHNICAL SERVICES MANAGER Pain Assessment Entered On: 05/30/2021 21:17 EST Performed On: 05/30/2021 20:53 EST by VANDANA KHALIL RN-PATIENT CARE BEDSIDE NON-EXEMPT Intervention Information: HYDROmorphone Performed by VANDANA KHALIL RN-PATIENT CARE BEDSIDE NON-EXEMPT on 05/30/2021 20:22:00 EST HYDROmorphone,1mg IV Push,Left Antecubital Tony Pain Assessment Pain Assessment : Follow-up assessment Pain Scale Used : 0-10 Scale VANDANA KHALIL RN-PATIENT CARE BEDSIDE NON-EXEMPT - 05/30/2021 20:53 EST Pain Scale Intensity : 3 VANDANA KHALIL, RN-PATIENT CARE BEDSIDE NON-EXEMPT - 05/30/2021 20:53 EST Image 4 - Images currently included in the form version of this document have not been included in the text rendition version of the form. Electronically signed by Trevon Bhatia Conversion Crystal Machining Coordinator Cerner at 08/31/2022 5:10 PM CDT documented in this encounter Plan of Treatment Not on file documented as of this encounter Visit Diagnoses Not on filedocumented in this encounter Care Teams Mobility Architect Manager Relationship Specialty Start Date End Date Alan Beyer MD [address] [place] [address] PCP - General Family Medicine 06/08/23 documented as of this encounter
--- OUTSIDE RECORDS SUMMARY | 2024-11-27 14:45 | XMS_ITS | Encounter Summary ---
Author Organization [employer] ([place], [place], [place], [place]) Address [address] [place] [address] Care Team Providers Care Epic Interface Analyst Name Role Phone Alan Beyer MD Primary Care Provider [phone] Encounter Details Date Type Department Care Team (Late st Contact Info) Description 03/16/2020 Transcribed Document [facility] [place] [address] [place] [address] ProviderJessenia MD [address] [place] [address] Social History Tobacco Use Types [...] Jessenia Alvarez MD - 03/16/2020 5:29 PM CHILD CARE ASSOCIATE TEACHER [place] [id number] CHARLINE BOND :1980 Visit Time:03/16/2020 Your Visit [...] the nausea vomiting and diarrhea Where: [address] [facility] [address] [place] [address]- Business (1) Allergies Bactrim acetaminophen-oxyCODONE clindamycin Toradol baclofen doxycycline escitalopram fentaNYL lidocaine topical 2% gel meperidine morphine penicillin (Hives) tetanus immune globulin Immunizations This Visit No Immunizations Found Medications What How Much When Instructions Next Dose ondansetron (Zofran ODT 4 mg oral tablet, disintegrating) 1 Tablet(s) Oral Every 4 Hours as needed for Nausea/Vomiting Duration: 3 Day(s) Pickup at [place] [address] promethazine (promethazine 25 mg oral tablet) 1 Tablet(s) Oral Every 4 Hours as needed for as needed for nausea/vomiting Duration: 3 Day(s) can make you sleepy Pickup at [place] [address] conjugated estrogens (Premarin) Vaginal Weekly cream fexofenadine (Karine) Oral Every Day ibuprofen 400 Milligram(s) Oral Every 8 Hours as needed for as needed for pain methocarbamol (Robaxin-750 oral tablet) 1 Tablet(s) Oral Every Day valACYclovir (Valtrex) 500 Milligram(s) Oral Every Day fever blister Pharmacy Information [facility] [address]: [address] [place], [place] [id number] [phone] The home medications listed are only as [...] range between ( 1.0 and 7.0 ) [place] #: 0.31 K/uL -- Normal range between ( 0.24 and 0.82 ) [place] #: 0.04 K/uL -- Normal range between ( 0.04 and 0.54 ) [place] %: 5.7 % -- Normal range between [...] virus is thought to spread mainly from olrezq-qe-gddiyq. ? Between people who are in close [...] are not readily available, use a hand fish hatchery inspector that contains at least 60% alcohol. [...] are at higher risk of getting very sick.https://www.cdc.gov/coronavirus/2019-ncov/duam-ofpxz-hygecndptld/people-a u-yfjnzr-mxdz.html Cover your mouth and nose with a cloth face cover when around others ??? You could spread COVID-19 to others even if you do not feel sick. ??? Everyone should wear a cloth face cover when they have to go out in public, for example to the grocery store or to garbage pick up man other necessities. ? Cloth face coverings should [...] available, clean your hands with a hand fish hatchery inspector that contains at least 60% alcohol. Clean and disinfect ??? Clean AND disinfect frequently touched surfaces daily. This includes tables, doorknobs, light switches, countertops, handles, desks, phones, keyboards, toilets, faucets, and sinks. https://www.cdc.gov/coronavirus/2019-ncov/igbucnb-aeigfft-thpd/disinfecting-yo ur-home.html ??? If surfaces are dirty, clean them: Use detergent or soap and water prior to disinfection. cdc.gov/coronavirus 08/23/2019 This information is not intended to replace advice given to you by your health care provider. Make sure you discuss any questions you have with your health care provider. Document Released: 08/26/2019 Document Revised: 08/29/2019 Document Reviewed: 08/26/2019 [employer] Patient Education ?? 2020 X[employer]ion. COVID-19 Frequently Asked Questions COVID-19 (coronavirus disease) is an infection that is caused by a large family of viruses. Some viruses cause illness in people and others cause illness in animals like camels, cats, and bats. In some cases, the viruses that cause illness in animals can spread to humans. Where did the coronavirus come from? In April 2019, [place] told the World Health Organization (WHO) of several cases of lung disease (human respiratory illness). These cases were linked to an open seafood and livestock market in the city of [facility]. The link to the seafood and [...] and virus naming World Health Organization (WHO): www.who.int/emergencies/diseases/rhihe-gokizlgahtr-2545/technical-guidance/nam cxr-jjw-givszooavfu-disease-(covid-2019)-obx-baf-fwoep-utyt-yjuybb-xb Who is at risk for complications from [...] relieve his or her symptoms by using innw-xlo-hphnqfp medicines that treat sneezing, coughing, and runny [...] water are not available, use alcohol-based hand fish hatchery inspector. ??? Avoid touching your face, mouth, [...] (CDC): www.cdc.gov/coronavirus/2019-ncov/travelers/index.html ??? World Health Organization (WHO): www.who.int/emergencies/diseases/trucm-bppctdcrwwi-0683/travel-advice Know the risks and take action to [...] water are not available, use alcohol-based hand fish hatchery inspector. ??? Cough or sneeze into a [...] in hot, soapy water or use a computer systems designer. Air-dry your dishes. ??? Wash laundry in [...] Organization (WHO) ??? Information and news updates: www.who.int/emergencies/diseases/hqoyr-wgpmmwcncqp-6605 ??? Coronavirus health topic: www.who.int/health-topics/coronavirus ??? Questions and answers on COVID-19: www.who.int/news-room/q-a-detail/q-k-pdsptwypshbfv ??? Global tracker: who.[employer] [place] Academy of Pediatrics (AAP) ??? Information for families: www.healthychildren.org/[place]/health-issues/conditions/chest-lungs/Pages/201 6-Mvtts-Wzadmlqytvw.aspx The coronavirus situation is changing rapidly. Check [...] 08/26/2019 Document Revised: 08/26/2019 Document Reviewed: 08/26/2019 [employer] Patient Education ?? 2020 [employer] COVID-19 COVID-19, also known as coronavirus [...] symptoms. This may include rest, fluids, and dumy-oio-mhmsumf medicines. Follow these instructions at home: Lifestyle [...] safe for you. General instructions ??? Take zrdb-vfl-zitasyy and prescription medicines only as told by [...] often. To identify high-risk areas, check the [facility] travel website: wwwnc.cdc.gov/travel/notices ??? If you live [...] are not available, use an alcohol-based hand fish hatchery inspector. ? Avoid touching your mouth, face, [...] water are not available, use alcohol-based hand fish hatchery inspector. ??? Stay away from other members [...] 06/05/2019 Document Revised: 08/26/2019 Document Reviewed: 06/05/2019 [employer] Patient Education ?? 2020 Xcerion. Food Choices to Help Relieve Diarrhea, Adult [...] best for you. Grains White rice. White, Austrian, or tin breads (fresh or toasted), including plain rolls, buns, or bagels. White pasta. Saltine, soda, or huey crackers. Pretzels. Low-fiber cereal. Cooked cereals made with water (such as cornmeal, farina, or cream cereals). Plain muffins. Matzo. [place] toast. Zwieback. Vegetables Potatoes (without the skin). [...] or bran cereals. Barley. Oats and oatmeal. [place] tortillas or taco shells. Granola. Popcorn. Vegetables Raw vegetables. Fried vegetables. Cabbage, broccoli, [place] sprouts, artichokes, baked beans, beet greens, corn, kale, legumes, peas, sweet potatoes, and yams. Potato skins. Cooked spinach and cabbage. Fruits Dried fruit, including raisins and dates. Raw fruits. Stewed or dried prunes. Canned fruits with syrup. Meat and other protein foods Fried or fatty meats. Deli meats. [place] nut butters. Nuts and seeds. Beans and lentils. [place]. Hot dogs. Sausage. Dairy High-fat cheeses. Whole milk, chocolate milk, and beverages made with milk, such as milk shakes. Hqns-gqz-ycyu. Cream. sour cream. Ice cream. Beverages Caffeinated [...] Seasoning and other foods Honey. Hot sauce. [place] powder. Gravy. Cream-based or milk-based soups. Pancakes [...] 07/20/2004 Document Revised: 08/21/2019 Document Reviewed: 04/27/2017 [employer] Patient Education ?? 2020 Xcerion. Diarrhea, Adult Diarrhea is when you pass [...] or caffeine in them. ??? Eat bland, sqxq-dy-cdsego foods in small amounts as you are able. These foods include: ? Bananas. ? Applesauce. ? Rice. ? Low-fat (lean) meats. ? [place]. ? Crackers. ??? Avoid alcohol. ??? Avoid spicy or fatty foods. Medicines ??? Take msob-oey-hmanies and prescription medicines only as told by your doctor. ??? If you were prescribed an antibiotic medicine, take it as told by your doctor. Do not stop using the antibiotic even if you start to feel better. General instructions ??? Wash your hands often using soap and water. If soap and water are not available, use a hand fish hatchery inspector. Others in your home should wash [...] at pharmacies and stores. ??? Eat bland, imdc-wg-stlome foods in small amounts as you are [...] 10/16/2008 Document Revised: 10/04/2018 Document Reviewed: 10/04/2018 [employer] Patient Education ?? 2020 Xcerion. Nausea and Vomiting, Adult Nausea is feeling [...] ? Low-calorie sports drinks. ??? Eat bland, ympw-fm-hiapnm foods in small amounts as you are able, such as: ? Bananas. ? Applesauce. ? Rice. ? Low-fat (lean) meats. ? [place]. ? Crackers. ??? Avoid drinking fluids that have a lot of sugar or caffeine in them. This includes energy drinks, sports drinks, and soda. ??? Avoid alcohol. ??? Avoid spicy or fatty foods. General instructions ??? Take eycy-oqf-jgfktux and prescription medicines only as told by your doctor. ??? Drink enough fluid to keep your pee (urine) pale yellow. ??? Wash your hands often with soap and water. If you cannot use soap and water, use hand fish hatchery inspector. ??? Make sure that all people [...] much water in your body. ??? Take afyz-lvi-lkudlnp and prescription medicines only as told by [...] 10/16/2008 Document Revised: 08/22/2019 Document Reviewed: 10/08/2018 [employer] Patient Education ?? 2020 [employer] Dehydration, Adult Dehydration is when there [...] lot of fat or sugar. ??? Take xiay-eoy-qcqskgy and prescription medicines only as told by [...] Assistance with quitting is available by contacting 1-888-OCBDNOW. This is a free resource providing counseling, support, and referral. Or you may contact your personal physician. [place] Suicide Prevention Lifeline: The National Suicide Prevention [...] was given the opportunity to ask questions. Patient/Punching Machine Operator Name: Patient/Punching Machine Operator Signature: Relationship to Patient: Clinician/Hospital Punching Machine Operator Signature: Please Provide a Telephone Number Where You Can Be Reached: Is it Permissible To Leave a Message? Date: Electronically signed by Interface, [facility] Conversion Assistant Inventory Manager Cerner at 08/31/2022 5:06 PM CDT documented in this encounter Plan of Treatment Not on file documented as of this encounter Visit Diagnoses Not on filedocumented in this encounter Care Teams Epic Interface Analyst Relationship Specialty Start Date End Date Alan Beyer MD [address] [place] [address] PCP - General Family Medicine 06/08/23 documented as of this encounter
--- OUTSIDE RECORDS SUMMARY | 2024-11-27 14:45 | XMS_ITS | Encounter Summary ---
Author Organization [employer] ([place], [place], [place], [place]) Address [address] [place] [address] Care Team Providers Care Distributor Advertising Material Name Role Phone Alan Beyer MD Primary Care Provider Encounter Details Date Type Department Care Team (Late st Contact Info) Description 05/03/2020 Transcribed Document [facility] [place] [facility] [place] [address] ProviderJessenia MD [address] [place], [place] [address] Social History Tobacco Use Types Packs/Day Years Used Date Smoking Tobacco: Never Assessed Comments Unknown Sex and Gender Information Value Date Recorded Sex Assigned at Not on file Legal Sex Female 4:28 PM CDT Gender Identity Not on file Sexual Orientation Not on file documented as of this encounter Miscellaneous Notes * Cerner Conversion Note - Historical ProviderMD - 05/03/2020 3:38 PM DELI CUTTER SLICER Patient: CHARLINE BOND Age: 39 years Sex: Female : 1980 Associated Diagnoses: Viral illness Author: FRANCOISE BARRETT, BELT TENDER-EMR Basic Information Time seen: Date & time [...] as documented in chart. Surgical history: Clavicle (819755057). Tympanostomy (3459464747). Adenoids (226896936). shoulder surgery. Gallbladder absent (439308327). Tubal ligation (791687948). Hysterectomy (978900137). Right knee (36598324). Comments: 05/03/2020 15:32 EST - Jyoti Frazier [...] EST Height Source Stated Height Entry Format [place] Height/Length, JAPANESE (ft) 5 ft Height/Length JAPANESE 5 Inch CLINICALHEIGHT 165.1 cm [place] Body Weight 56.59 kg Weight Source, ED Critical estimated dosing weight Weight Entry Format [place] Weight Yoruba lb 160 lb CLINICALWEIGHT 72.73 kg Body [...] on filedocumented in this encounter Care Teams Distributor Advertising Material Relationship Specialty Start Date End Date Alan Beyer MD [address] [place] [address] PCP - General Family Medicine 06/08/23 documented as of this encounter
--- OUTSIDE RECORDS SUMMARY | 2024-11-27 14:45 | XMS_ITS | Encounter Summary ---
Author Organization [employer] ([place], [place], [place], [place]) Address [address] [place] [address] Care Team Providers Care Oil Well Directional Surveyor Name Role Phone Alan Beyer MD Primary Care Provider [phone] Encounter Details Date Type Department Care Team (Late st Contact Info) Description 03/30/2021 Transcribed Document [facility] [place] [facility] [place] [address] ProviderJessenia MD [address] [place], [place] [phone] Social History Tobacco Use Types Packs/Day Years Used Date Smoking Tobacco: Never Assessed Comments Unknown Sex and Gender Information Value Date Recorded Sex Assigned at Not on file Legal Sex Female 4:28 PM CDT Gender Identity Not on file Sexual Orientation Not on file documented as of this encounter Miscellaneous Notes * Cerner Conversion Note - Jessenia ProviderMD - 03/30/2021 1:19 AM NEGATIVE CUTTER ED Triage Entered On: 03/30/2021 1:30 EST Performed On: 03/30/2021 1:28 EST by OBEY MONROE, AUTOMOTIVE DRIVABILITY TECHNICIAN Triage Across the Room Chief Complaint : Pt co Mid chest pain with pain into left sided neck with tingling into left arm and face. pt is anxious alert skinpwd. Triage Date/Time : 03/30/2021 1:28 EST OBEY MONROE RN - 03/30/2021 1:28 EST DCP GENERIC CODE Tracking Acuity : 2 - Emergent Tracking Group : [facility] [place] OBEY MONROE RN - 03/30/2021 [...] and trying cefazolin 05/01 ; Created By: AJME ZUNIGA PharmD; Reaction Status: Active ; Category: Drug ; Substance: penicillin ; Type: Allergy ; Updated By: JAME ZUNIGA PharmD; Reviewed Date: 02/08/2021 18:13 EDT tetanus [...] 03/30/2021 01:30:28 EST) Problems(Active) Anxiety (SNOMED CT :99463357 ) Name of Problem: Anxiety ; Recorder: ERICKA ISSA RN; Confirmation: Confirmed ; Classification: Medical ; Code: [id number] ; Contributor System: PowerChart ; Last Updated: 07/26/2015 22:28 EDT ; Life Cycle Date: 07/26/2015 ; Life Cycle Status: Active ; Vocabulary: SNOMED CT Endometriosis, vagina (SNOMED CT :27257527 ) Name of Problem: Endometriosis, vagina ; Recorder: Breanna Ivey RN; Confirmation: Confirmed ; Classification: Medical ; Code: [id number] ; Contributor System: PowerChart ; Last Updated: 05/24/2018 10:54 EST ; Life Cycle Date: 05/24/2018 ; Life Cycle Status: Active ; Vocabulary: SNOMED CT Kidney stones (SNOMED CT :208915376 ) Name of Problem: Kidney stones ; Recorder: KAYY ANDREW; Confirmation: Confirmed ; Classification: Medical ; Code: [id number] ; Contributor System: PowerChart ; Last Updated: 06/06/2016 9:30 EST ; Life Cycle Date: 06/06/2016 ; Life Cycle Status: Active ; Vocabulary: SNOMED CT Migraine (SNOMED CT :73507817 ) Name of Problem: Migraine ; Recorder: ERICKA ISSA RN; Confirmation: Confirmed ; Classification: Medical ; Code: 09822722 ; Contributor System: PowerChart ; Last Updated: 07/26/2015 22:28 EDT ; Life Cycle Date: 07/26/2015 ; Life Cycle Status: Active ; Vocabulary: SNOMED CT S/P hysterectomy (SNOMED CT :692435817 ) Name of Problem: S/P hysterectomy ; Recorder: LEONID CASTANEDA RN; Confirmation: Confirmed ; Classification: Medical ; Code: [id number] ; Contributor System: PowerChart ; Last Updated: 11/06/2019 20:08 EDT ; Life Cycle Date: 11/06/2019 ; Life Cycle Status: Active ; Vocabulary: SNOMED CT Shoulder pain, left (SNOMED CT :66467026 ) Name of Problem: Shoulder pain, left ; Recorder: Breanna Ivey RN; Confirmation: Confirmed ; Classification: Medical ; Code: 08996790 ; Contributor System: PowerChart ; Last Updated: 05/24/2018 10:53 EST ; Life Cycle Date: 05/24/2018 ; Life Cycle Status: Active ; Vocabulary: SNOMED CT Diagnoses(Active) Chest pain Date: 03/30/2021 ; Diagnosis Type: Reason For Visit ; Confirmation: Complaint of ; Clinical Dx: Chest pain ; Classification: Medical ; Clinical Service: Emergency medicine ; Code: PNED ; Probability: 0 ; Diagnosis Code: [id number] ED Height and Weight Height Source : Measured Height Entry Format : [place] Height, Feet : 5 ft(Converted to: 152 cm, 60 Inch) Height, Inches : 6 Inch(Converted to: 0 ft 6 Inch, 15.24 cm) Clinical Height : 167.64 cm Weight Source, ED : Critical estimated dosing weight Weight Entry Format : [place] Weight, Pounds : 170 lb Clinical Dosing Weight : 77.27 kg Body Surface Area (BSA) : 1.87 m2 Body Mass Index : 27.5 kg/m2 (HI) [place] Body Weight (IBW) : 58.88 kg OBEY [...] on filedocumented in this encounter Care Teams Oil Well Directional Surveyor Relationship Specialty Start Date End Date Alan Beyer MD [address] [place] [address] PCP - General Family Medicine 06/08/23 documented as of this encounter
--- OUTSIDE RECORDS SUMMARY | 2024-11-27 14:45 | XMS_ITS | Encounter Summary ---
Author Organization [employer] ([place], [place], [place], [place]) Address [address] [place] [address] Care Team Providers Care Internal Sales Name Role Phone Alan Beyer MD Primary Care Provider [phone] Encounter Details Date Type Department Care Team (Late st Contact Info) Description 03/16/2020 Transcribed Document [facility] [place] [address] ProviderJessenia MD [address] [place], [place] [address] Social History Tobacco Use Types Packs/Day Years Used Date Smoking Tobacco: Never Assessed Comments Unknown Sex and Gender Information Value Date Recorded Sex Assigned at Not on file Legal Sex Female 4:28 PM CDT Gender Identity Not on file Sexual Orientation Not on file documented as of this encounter Miscellaneous Notes * Cerner Conversion Note - Historical ProviderMD - 03/16/2020 3:13 PM SPRAY BOOTH OPERATOR Patient: CHARLINE BOND Age: 39 years Sex: [...] Medical/ Family/ Social History Surgical history: Clavicle (222167613). Tympanostomy (2862950517). Adenoids (017787259). shoulder surgery. Gallbladder absent (340622566). Tubal ligation (479678403). Hysterectomy (957463014).. Family history: Heart attack Father Sister Coronary [...] EST, Discharge to: Home . Prescriptions: Prescription [place] [facility]: [facility] ODT 4 mg oral tablet, [...] to Help Relieve Diarrhea, Adult, Diarrhea, Adult, Ezgx-ub-Xxlt, Nausea and Vomiting, Adult, Gnyl-qi-Omdd, Dehydration, Adult, Vnlc-gg-Czsb, COVID-19, COVID-19 Frequently Asked Questions, COVID-19: How [...] understanding of instructions. Electronically signed by Jannette, [facility] Conversion Healthcare Receptionist Cerner at 08/31/2022 5:14 PM CDT documented in this encounter Plan of Treatment Not on file documented as of this encounter Visit Diagnoses Not on filedocumented in this encounter Care Teams Internal Sales Relationship Specialty Start Date End Date Alan Beyer MD [address] [place] [address] PCP - General Family Medicine 06/08/23 documented as of this encounter
--- OUTSIDE RECORDS SUMMARY | 2024-11-27 14:45 | XMS_ITS | Encounter Summary ---
Author Organization [employer] ([place], [place], [place], [place]) Address [address] [place] [address] Care Team Providers Care Functional Consultant Name Role Phone Alan Beyer MD Primary Care Provider [phone] Encounter Details Date Type Department Care Team (Late st Contact Info) Description 05/30/2021 Transcribed Document [facility] [place] Family Medicine On [place] [address] ProviderJessenia MD [address] [place], [place] [address] Social History Tobacco Use Types Packs/Day Years Used Date Smoking Tobacco: Never Assessed Comments Unknown Sex and Gender Information Value Date Recorded Sex Assigned at Not on file Legal Sex Female 4:28 PM CDT Gender Identity Not on file Sexual Orientation Not on file documented as of this encounter Miscellaneous Notes * Cerner Conversion Note - Jessenia ProviderMD - 05/30/2021 6:15 PM CAP PARTS CUTTER ED Assessment Entered On: 05/30/2021 21:17 EST [...] Communication Barrier : None Primary Language : Dutch Any Spiritual/Cultural Needs or Requests : No [...] 05/30/2021 20:53 EST Electronically signed by Jannette, [facility] Conversion Software Performance Engineer Cerner at 08/31/2022 5:01 PM CDT documented in this encounter Plan of Treatment Not on file documented as of this encounter Visit Diagnoses Not on filedocumented in this encounter Care Teams Functional Consultant Relationship Specialty Start Date End Date Alan Beyer MD [address] [place] [address] PCP - General Family Medicine 06/08/23 documented as of this encounter
--- OUTSIDE RECORDS SUMMARY | 2024-11-27 14:45 | XMS_ITS | Encounter Summary ---
Author Organization [employer] ([place], [place], [place], [place]) Address [address] [place] [address] Care Team Providers Care Tongue Carrier Name Role Phone Alan Beyer MD Primary Care Provider [phone] Encounter Details Date Type Department Care Team (Late st Contact Info) Description 05/30/2021 Transcribed Document [facility] [place] [facility] [place] [address] ProviderJessenia MD [address] [place] [address] Social History Tobacco Use Types Packs/Day Years Used Date Smoking Tobacco: Never Assessed Comments Unknown Sex and Gender Information Value Date Recorded Sex Assigned at Not on file Legal Sex Female 4:28 PM CDT Gender Identity Not on file Sexual Orientation Not on file documented as of this encounter Miscellaneous Notes * Cerner Conversion Note - Jessenia ProviderMD - 05/30/2021 11:55 PM GROCERY CHECKER [place] [id number] CHARLINE BOND :1980 Visit Time:05/30/2021 Your Visit [...] 2 to 3 days Comments Call your OPERATIONS LEAD in the morning for follow-up appointment Return [...] I hope you feel better soon Where: [address] [place], [place] [id number] Business (1) Allergies Bactrim acetaminophen-oxyCODONE clindamycin Toradol baclofen doxycycline escitalopram fentaNYL lidocaine topical 2% gel meperidine morphine penicillin (Hives) tetanus immune globulin Immunizations This Visit No Immunizations Found Medications What How Much When Instructions Next Dose acetaminophen-hydrocodone ([place] 5 mg-325 mg oral tablet) 1 Tablet(s) Oral Every 6 Hours as needed for for pain Duration: 3 Day(s) constipating, addictive, no driving Pickup at [place] [address] montelukast (Singulair 10 mg oral tablet) 1 Tablet(s) Oral Every Evening Pickup at [place] [address] conjugated estrogens (Premarin) Vaginal Weekly cream fexofenadine (Karine) Oral Every Day ibuprofen 400 Milligram(s) Oral Every 8 Hours as needed for as needed for pain methocarbamol (Robaxin-750 oral tablet) 1 Tablet(s) Oral Every Day predniSONE (predniSONE 10 mg oral tablet) See instructions Six-day tapering Dosepak valACYclovir (Valtrex) 500 Milligram(s) Oral Every Day fever blister Pharmacy Information [facility]: [address] [place], [place] [id number] [phone] The home medications listed are only as [...] range between ( 1.0 and 7.0 ) [place] #: 0.47 K/uL -- Normal range between ( 0.24 and 0.82 ) Eos #: 0.06 K/uL -- Normal range between ( 0.04 and 0.54 ) [place] %: 6.1 % -- Normal range between [...] ) Urine Bilirubin Dipstick: Negative Urine Specific [place]: 1.016 -- Normal range between ( 1.005 [...] ??? Atopic dermatitis or eczema. This is detention (chronic) inflammation of the skin. ??? Food [...] related conditions, such as: ??? Asthma. ??? Deshler eye. This is eye inflammation caused by [...] and dust regularly. General instructions ??? Take mehb-ehn-ewfcfjf and prescription medicines only as told by your health care provider. ??? Drink enough fluid to keep your urine pale yellow. ??? Keep all follow-up visits as told by your health care provider. This is important. Where to find more information ??? [place] [employer] Immunology: www.aaaai.org [...] provider. Document Revised: 06/18/2020 Document Reviewed: 04/27/2020 [employer] Patient Education ?? 2020 [employer]. Ovarian Cyst An ovarian cyst is a [...] Follow these instructions at home: ??? Take txdb-hmd-mhsokbs and prescription medicines only as told by [...] provider. Document Revised: 10/07/2020 Document Reviewed: 10/07/2020 [employer] Patient Education ?? 2020 [employer]. Hypokalemia Hypokalemia means that the amount [...] Follow these instructions at home: ??? Take nufb-dje-fwhgsuy and prescription medicines only as told by [...] kiwi, oranges, tomatoes, asparagus, and potatoes. ? [place] juice. ? Tomato juice. ? Red meats. [...] Reviewed: 12/11/2018 Elsevier Patient Education ?? 2020 [employer]. Emergency Awareness and Preventative Care STROKE [...] Assistance with quitting is available by contacting 8-798-HLHUNOW. This is a free resource providing counseling, support, and referral. Or you may contact your personal physician. [place] Suicide Prevention Lifeline: The National Suicide Prevention [...] was given the opportunity to ask questions. Patient/Propeller Engineer Name: Patient/Propeller Engineer Signature: Relationship to Patient: Clinician/Hospital Propeller Engineer Signature: Please Provide a Telephone Number Where You Can Be Reached: Is it Permissible To Leave a Message? Date: documented in this encounter Plan of Treatment Not on file documented as of this encounter Visit Diagnoses Not on filedocumented in this encounter Care Teams Tongue Carrier Relationship Specialty Start Date End Date Alan Beyer MD [address] [place] [address] PCP - General Family Medicine 06/08/23 documented as of this encounter
--- OUTSIDE RECORDS SUMMARY | 2024-11-27 14:45 | XMS_ITS | Encounter Summary ---
Author Organization [employer] ([place], [place], [place], [place]) Address [address] [place] [address] Care Team Providers Care Process Control Technician Name Role Phone Alan Beyer MD Primary Care Provider [phone] Encounter Details Date Type Department Care Team (Late st Contact Info) Description 05/30/[address] [facility] [place] [facility] [place] [address] ProviderJessenia MD [address] [place], [place] [id number] Social History Tobacco Use Types Packs/Day Years Used Date Smoking Tobacco: Never Assessed Comments Unknown Sex and Gender Information Value Date Recorded Sex Assigned at Not on file Legal Sex Female 4:28 PM CDT Gender Identity Not on file Sexual Orientation Not on file documented as of this encounter Miscellaneous Notes * Cerner Conversion Note - Jessenia ProviderMD - 05/30/2021 6:15 PM PERINATOLOGY PHYSICIAN ED Triage Entered On: 05/30/2021 18:32 EST [...] : 3 - Urgent Tracking Group : [facility] ED [facility] SHAMA CASTILLO RN - [...] Ivey Rn; Reviewed Date: 05/30/2021 18:31 EST lidocaine [...] By: JAME ZUNIGA PharmD; Reviewed Date: 05/30/2021 18:31 EST [...] 05/30/2021 18:32:32 EST) Problems(Active) Anxiety (SNOMED CT :20515673 ) Name of Problem: Anxiety ; Recorder: ERICKA ISSA RN; Confirmation: Confirmed ; Classification: Medical ; Code: 60735810 ; Contributor System: PowerChart ; Last Updated: 07/26/2015 22:28 EDT ; Life Cycle Date: 07/26/2015 ; Life Cycle Status: Active ; Vocabulary: SNOMED CT Endometriosis, vagina (SNOMED CT :82678458 ) Name of Problem: Endometriosis, vagina ; Recorder: Breanna Ivey RN; Confirmation: Confirmed ; Classification: Medical ; Code: 31813431 ; Contributor System: PowerChart ; Last Updated: 05/24/2018 10:54 EST ; Life Cycle Date: 05/24/2018 ; Life Cycle Status: Active ; Vocabulary: SNOMED CT Kidney stones (SNOMED CT :773082727 ) Name of Problem: Kidney stones ; Recorder: KAYY ANDREW; Confirmation: Confirmed ; Classification: Medical ; Code: 912842831 ; Contributor System: PowerChart ; Last Updated: 06/06/2016 9:30 EST ; Life Cycle Date: 06/06/2016 ; Life Cycle Status: Active ; Vocabulary: SNOMED CT Migraine (SNOMED CT :80147795 ) Name of Problem: Migraine ; Recorder: ERICKA ISSA RN; Confirmation: Confirmed ; Classification: Medical ; Code: 16918278 ; Contributor System: PowerChart ; Last Updated: 07/26/2015 22:28 EDT ; Life Cycle Date: 07/26/2015 ; Life Cycle Status: Active ; Vocabulary: SNOMED CT S/P hysterectomy (SNOMED CT :875056093 ) Name of Problem: S/P hysterectomy ; Recorder: LEONID CASTANEDA RN; Confirmation: Confirmed ; Classification: Medical ; Code: 956141444 ; Contributor System: PowerChart ; Last Updated: 11/06/2019 20:08 EDT ; Life Cycle Date: 11/06/2019 ; Life Cycle Status: Active ; Vocabulary: SNOMED CT Shoulder pain, left (SNOMED CT :68710183 ) Name of Problem: Shoulder pain, left ; Recorder: Breanna Ivey RN; Confirmation: Confirmed ; Classification: Medical ; Code: 74498699 ; Contributor System: PowerChart ; Last Updated: 05/24/2018 10:53 EST ; Life Cycle Date: 05/24/2018 ; Life Cycle Status: Active ; Vocabulary: SNOMED CT Diagnoses(Active) Abdominal pain Date: 05/30/2021 ; Diagnosis Type: Reason For Visit ; Confirmation: Complaint of ; Clinical Dx: Abdominal pain ; Classification: Medical ; Clinical Service: Emergency medicine ; Code: PNED ; Probability: 0 ; Diagnosis Code: [id number] ED Height and Weight Height Source : Stated Height Entry Format : [place] Height, Feet : 5 ft(Converted to: 152 cm, 60 Inch) Height, Inches : 5 Inch(Converted to: 0 ft 5 Inch, 12.70 cm) Clinical Height : 165.1 cm Weight Source, ED : Critical estimated dosing weight Weight Entry Format : [place] Weight, Pounds : 170 lb Clinical Dosing Weight : 77.27 kg Body Surface Area (BSA) : 1.85 m2 Body Mass Index : 28.3 kg/m2 (HI) [place] Body Weight (IBW) : 56.59 kg SHAMA CASTILLO RN - 05/30/2021 18:30 EST Electronically signed by Jannette [facility] Conversion Installation Drafter Cerner at 08/31/2022 5:12 PM CDT documented in this encounter Plan of Treatment Not on file documented as of this encounter Visit Diagnoses Not on filedocumented in this encounter Care Teams Process Control Technician Relationship Specialty Start Date End Date Alan Beyer MD [address] [place] [address] PCP - General Family Medicine 06/08/23 documented as of this encounter
--- OUTSIDE RECORDS SUMMARY | 2024-11-27 14:45 | XMS_ITS | Encounter Summary ---
Author Organization [employer] ([place], [place], [place], [place]) Address [address] [place] [address] Care Team Providers Care Underground Production Foreperson Name Role Phone Alan Beyer MD Primary Care Provider [phone] Encounter Details Date Type Department Care Team (Late st Contact Info) Description 05/30/2021 Transcribed Document [facility] [place] [address] ProviderJessenia MD [address] [place], [place] [address] Social History Tobacco Use Types Packs/Day Years Used Date Smoking Tobacco: Never Assessed Comments Unknown Sex and Gender Information Value Date Recorded Sex Assigned at Not on file Legal Sex Female 4:28 PM CDT Gender Identity Not on file Sexual Orientation Not on file documented as of this encounter Miscellaneous Notes * Cerner Conversion Note - Jessenia ProviderMD - 05/30/2021 6:15 PM PHARMACIST CRITICAL CARE [place] Violence Assessment Entered On: 05/30/2021 21:17 [...] on filedocumented in this encounter Care Teams Underground Production Foreperson Relationship Specialty Start Date End Date Alan Beyer MD [address] [place] [address] PCP - General Family Medicine 06/08/23 documented as of this encounter
--- OUTSIDE RECORDS SUMMARY | 2024-11-27 14:45 | XMS_ITS | Encounter Summary ---
Author Organization [employer] ([place], [place], [place], [place]) Address [address] [place] [address] Care Team Providers Care Resistance Brazer Name Role Phone Alan Beyer MD Primary Care Provider [phone] Encounter Details Date Type Department Care Team (Late st Contact Info) Description 03/16/2020 Transcribed Document [facility] [place] [address] [place] [address] ProviderJessenia MD [address] [place], [place] [address] Social History Tobacco Use Types Packs/Day Years Used Date Smoking Tobacco: Never Assessed Comments Unknown Sex and Gender Information Value Date Recorded Sex Assigned at Not on file Legal Sex Female 4:28 PM CDT Gender Identity Not on file Sexual Orientation Not on file documented as of this encounter Miscellaneous Notes * Cerner Conversion Note - Historical ProviderMD - 03/16/2020 5:00 PM GAMBLING CASHIER Electronically signed by [facility] Conversion Miniature Set Constructor Cerner at 08/31/2022 5:16 PM CDT documented in this encounter Plan of Treatment Not on file documented as of this encounter Visit Diagnoses Not on filedocumented in this encounter Care Teams Resistance Brazer Relationship Specialty Start Date End Date Alan Beyer MD [address] [place] [address] PCP - General Family Medicine 06/08/23 documented as of this encounter
--- OUTSIDE RECORDS SUMMARY | 2024-11-27 14:45 | XMS_ITS | Encounter Summary ---
Author Organization [employer] ([place], [place], [place], [place]) Address [address] [place] [address] Care Team Providers Care Independent Insurance Adjuster Name Role Phone Alan Beyer MD Primary Care Provider [phone] Encounter Details Date Type Department Care Team (Late st Contact Info) Description 03/16/2020 Transcribed Document [facility] [place] [address] ProviderJessenia MD [address] [place], [place] [address] Social History Tobacco Use Types Packs/Day Years Used Date Smoking Tobacco: Never Assessed Comments Unknown Sex and Gender Information Value Date Recorded Sex Assigned at Not on file Legal Sex Female 4:28 PM CDT Gender Identity Not on file Sexual Orientation Not on file documented as of this encounter Miscellaneous Notes * Cerner Conversion Note - Jessenia ProviderMD - 03/16/2020 1:15 PM CASE SEALER ED Triage Entered On: 03/16/2020 13:30 EST Performed On: 03/16/2020 13:29 EST by SHAMA CASTILLO RN ED Triage Across the Room Chief Complaint : Pt c/o n/v/d that started Sunday, sent by PCP, miranda abd pain. Triage Date/Time : 03/16/2020 13:29 EST SHAMA CASTILLO RN - 03/16/2020 13:29 EST DCP GENERIC CODE Tracking Acuity : 3 - Urgent Tracking Group : [facility] SHAMA CASTILLO RN - 03/16/2020 [...] By: Talia Eason RN; Reviewed Date: 03/16/2020 13:29 EST doxycycline [...] and trying cefazolin 05/01 ; Created By: JAEM ZUNIGA PharmD; Reaction Status: Active ; Category: [...] 03/16/2020 13:30:55 EST) Problems(Active) Anxiety (SNOMED CT :20298580 ) Name of Problem: Anxiety ; Recorder: ERICKA ISSA RN; Confirmation: Confirmed ; Classification: Medical ; Code: 52856358 ; Contributor System: Voice2Insight ; Last Updated: 07/26/2015 22:28 EDT ; Life Cycle Date: 07/26/2015 ; Life Cycle Status: Active ; Vocabulary: SNOMED CT Endometriosis, vagina (SNOMED CT :49519926 ) Name of Problem: Endometriosis, vagina ; Recorder: Breanna Ivey RN; Confirmation: Confirmed ; Classification: Medical ; Code: 60402108 ; Contributor System: Voice2Insight ; Last Updated: 05/24/2018 10:54 EST ; Life Cycle Date: 05/24/2018 ; Life Cycle Status: Active ; Vocabulary: SNOMED CT Kidney stones (SNOMED CT :140708853 ) Name of Problem: Kidney stones ; Recorder: KAYY ANDREW; Confirmation: Confirmed ; Classification: Medical ; Code: 516708938 ; Contributor System: PowerChart ; Last Updated: 06/06/2016 9:30 EST ; Life Cycle Date: 06/06/2016 ; Life Cycle Status: Active ; Vocabulary: SNOMED CT Migraine (SNOMED CT :32621332 ) Name of Problem: Migraine ; Recorder: ERICKA ISSA RN; Confirmation: Confirmed ; Classification: Medical ; Code: 23015603 ; Contributor System: PowerChart ; Last Updated: 07/26/2015 22:28 EDT ; Life Cycle Date: 07/26/2015 ; Life Cycle Status: Active ; Vocabulary: SNOMED CT S/P hysterectomy (SNOMED CT :597763408 ) Name of Problem: S/P hysterectomy ; Recorder: LEONID CASTANEDA RN; Confirmation: Confirmed ; Classification: Medical ; Code: 024283044 ; Contributor System: PreViserChart ; Last Updated: 11/06/2019 20:08 EDT ; Life Cycle Date: 11/06/2019 ; Life Cycle Status: Active ; Vocabulary: SNOMED CT Shoulder pain, left (SNOMED CT :04487166 ) Name of Problem: Shoulder pain, left ; Recorder: Breanna Ivey RN; Confirmation: Confirmed ; Classification: Medical ; Code: 48360271 ; Contributor System: PreViserChart ; Last Updated: 05/24/2018 10:53 EST ; Life Cycle Date: 05/24/2018 ; Life Cycle Status: Active ; Vocabulary: SNOMED CT Diagnoses(Active) Vomiting Date: 03/16/2020 ; Diagnosis Type: Reason For Visit ; Confirmation: Complaint of ; Clinical Dx: Vomiting ; Classification: Medical ; Clinical Service: Emergency medicine ; Code: PNED ; Probability: 0 ; Diagnosis Code: [id number] ED Height and Weight Height Source : Stated Height Entry Format : [place] Height, Feet : 5 ft(Converted to: 152 cm, 60 Inch) Height, Inches : 5 Inch(Converted to: 0 ft 5 Inch, 12.70 cm) Clinical Height : 165.1 cm Weight Source, ED : Critical estimated dosing weight Weight Entry Format : [place] Weight, Pounds : 160 lb Clinical Dosing Weight : 72.73 kg Body Surface Area (BSA) : 1.8 m2 Body Mass Index : 26.7 kg/m2 (HI) [place] Body Weight (IBW) : 56.59 kg SHAMA CASTILLO RN - 03/16/2020 13:29 EST Electronically signed by Trevon Bhatia Conversion Entry Level Software Developer Cerner at 08/31/2022 5:21 PM CDT documented in this encounter Plan of Treatment Not on file documented as of this encounter Visit Diagnoses Not on filedocumented in this encounter Care Teams Independent Insurance Adjuster Relationship Specialty Start Date End Date Alan Beyer MD [address] [place] [address] PCP - General Family Medicine 06/08/23 documented as of this encounter
--- OUTSIDE RECORDS SUMMARY | 2024-11-27 14:45 | XMS_ITS | Encounter Summary ---
Author Organization [employer] ([place], [place], [place], [place]) Address [address] [place] [address] Care Team Providers Care Arc Furnace Operator Name Role Phone Alan Beyer MD Primary Care Provider [phone] Encounter Details Date Type Department Care Team (Late st Contact Info) Description 05/30/2021 Transcribed Document [facility] [place] [facility] [place] [address] ProviderJessenia MD [address] [place], [place] [address] Social History Tobacco Use Types Packs/Day Years Used Date Smoking Tobacco: Never Assessed Comments Unknown Sex and Gender Information Value Date Recorded Sex Assigned at Not on file Legal Sex Female 4:28 PM CDT Gender Identity Not on file Sexual Orientation Not on file documented as of this encounter Miscellaneous Notes * Cerner Conversion Note - Jessenia ProviderMD - 05/30/2021 6:15 PM BROADCAST PROGRAM DIRECTOR [place] Suicide Severity Rating Scale (C-SSRS) Entered On: 05/30/2021 21:17 EST Performed On: 05/30/2021 20:53 EST by VANDANA KHALIL RN-PATIENT CARE BEDSIDE NON-EXEMPT [place] Suicide Severity Rating Scale (C-SSRS) CSSRS Past Month Wish to be : No CSSRS Past Month Suicidal Thoughts : No CSSRS Lifetime Suicide Behavior : No Suicide Severity Rating Score : 0 Suicide Severity Rating : No Additional Care Required at this time VANDANA KHALIL RN-PATIENT CARE BEDSIDE NON-EXEMPT - 05/30/2021 20:53 EST Electronically signed by Jannette [facility] Conversion Sterile Process Coordinator Cerner at 08/31/2022 5:16 PM CDT documented in this encounter Plan of Treatment Not on file documented as of this encounter Visit Diagnoses Not on filedocumented in this encounter Care Teams Arc Furnace Operator Relationship Specialty Start Date End Date Alan Beyer MD [address] [place] [address] PCP - General Family Medicine 06/08/23 documented as of this encounter
--- OUTSIDE RECORDS SUMMARY | 2024-11-27 14:45 | XMS_ITS | Encounter Summary ---
Author Organization [employer] ([place], [place], [place], [place]) Address [address] [place] [address] Care Team Providers Care High School Tutor Name Role Phone Alan Beyer MD Primary Care Provider [phone] Encounter Details Date Type Department Care Team (Late st Contact Info) Description 03/16/2020 Transcribed Document [facility] [place] [address] [place] [address] ProviderJessenia MD [address] [place], [place] [address] Social History Tobacco Use Types Packs/Day Years Used Date Smoking Tobacco: Never Assessed Comments Unknown Sex and Gender Information Value Date Recorded Sex Assigned at Not on file Legal Sex Female 4:28 PM CDT Gender Identity Not on file Sexual Orientation Not on file documented as of this encounter Miscellaneous Notes * Cerner Conversion Note - Historical ProviderMD - 03/16/2020 7:23 PM TIN WHIZ MACHINE OPERATOR Novel Coronavirus 2019 - - Negative 03/16/2020 18:18 03/16/2020 19:23 (JENNIFER HOWELL PA) Reviewed by Provider, No further action required Spoke with patient and informed of negative result. documented in this encounter Plan of Treatment Not on file documented as of this encounter Visit Diagnoses Not on filedocumented in this encounter Care Teams High School Tutor Relationship Specialty Start Date End Date Alan Beyer MD [address] [place] [address] PCP - General Family Medicine 06/08/23 documented as of this encounter
--- OUTSIDE RECORDS SUMMARY | 2024-11-27 14:45 | XMS_ITS | Encounter Summary ---
Author Organization [employer] ([place], [place], [place], [place]) Address [address] [place] [address] Care Team Providers Care Recycling Manager Name Role Phone Alan Beyer MD Primary Care Provider [phone] Encounter Details Date Type Department Care Team (Late st Contact Info) Description 03/16/2020 Transcribed Document [facility] [address] [place] [address] ProviderJessenia MD [address] [place], [place] [id number] Social History Tobacco Use Types Packs/Day Years Used Date Smoking Tobacco: Never Assessed Comments Unknown Sex and Gender Information Value Date Recorded Sex Assigned at Not on file Legal Sex Female 4:28 PM CDT Gender Identity Not on file Sexual Orientation Not on file documented as of this encounter Miscellaneous Notes * Cerner Conversion Note - Historical ProviderMD - 03/16/2020 1:15 PM MANGLE TENDER CLOTH [place] Suicide Severity Rating Scale (C-SSRS) Entered On: 03/16/2020 16:17 EST Performed On: 03/16/2020 16:17 EST by SHAMA CASTILLO RN [place] Suicide Severity Rating Scale (C-SSRS) CSSRS Past Month Wish to be : No CSSRS Past Month Suicidal Thoughts : No CSSRS Lifetime Suicide Behavior : No Suicide Severity Rating Score : 0 Suicide Severity Rating : No Additional Care Required at this time SHAMA CASTILLO RN - 03/16/2020 16:17 EST Electronically signed by Jannette [facility] Conversion Patient Services Specialist Cerner at 08/31/2022 5:19 PM CDT documented in this encounter Plan of Treatment Not on file documented as of this encounter Visit Diagnoses Not on filedocumented in this encounter Care Teams Recycling Manager Relationship Specialty Start Date End Date Alan Beyer MD [address] [place] [address] PCP - General Family Medicine 06/08/23 documented as of this encounter
--- OUTSIDE RECORDS SUMMARY | 2024-11-27 14:45 | XMS_ITS | Encounter Summary ---
Author Organization [employer] ([place], [place], [place], [place]) Address [address] [place] [address] Care Team Providers Care Regulatory Services Consultant Name Role Phone Alan Beyer MD Primary Care Provider [phone] Encounter Details Date Type Department Care Team (Late st Contact Info) Description 05/31/2021 Transcribed Document [facility] [place] [facility] [place] [address] ProviderJessenia MD [address] [place], [place] [id number] Social History Tobacco Use Types Packs/Day Years Used Date Smoking Tobacco: Never Assessed Comments Unknown Sex and Gender Information Value Date Recorded Sex Assigned at Not on file Legal Sex Female 4:28 PM CDT Gender Identity Not on file Sexual Orientation Not on file documented as of this encounter Miscellaneous Notes * Cerner Conversion Note - Jessenia Alvarez MD - 05/31/2021 12:13 AM COPIER REPAIR TECHNICIAN ED Discharge Entered On: 05/31/2021 0:13 EST [...] 05/31/2021 0:13 EST Electronically signed by Jannette [facility] Conversion Database Marketing Specialist Cerner at 08/31/2022 5:05 PM CDT documented in this encounter Plan of Treatment Not on file documented as of this encounter Visit Diagnoses Not on filedocumented in this encounter Care Teams Regulatory Services Consultant Relationship Specialty Start Date End Date Alan Beyer MD [address] [place] [address] PCP - General Family Medicine 06/08/23 documented as of this encounter
--- OUTSIDE RECORDS SUMMARY | 2024-11-27 14:45 | XMS_ITS | Encounter Summary ---
Author Organization [employer] ([place], [place], [place], [place]) Address [address] [place] [address] Care Team Providers Care Clinical Laboratory Aide Name Role Phone Alan Beyer MD Primary Care Provider [phone] Encounter Details Date Type Department Care Team (Late st Contact Info) Description 05/30/2021 Transcribed Document [facility] [place] [facility] [place] [address] ProviderJessenia MD [address] [place], [place] [id number] Social History Tobacco Use Types Packs/Day Years Used Date Smoking Tobacco: Never Assessed Comments Unknown Sex and Gender Information Value Date Recorded Sex Assigned at Not on file Legal Sex Female 4:28 PM CDT Gender Identity Not on file Sexual Orientation Not on file documented as of this encounter Miscellaneous Notes * Cerner Conversion Note - Jessenia ProviderMD - 05/30/2021 11:49 PM SAUSAGE SMOKER Electronically signed by [facility] Conversion Primer Charger Cerner at 08/31/2022 5:11 PM CDT documented in this encounter Plan of Treatment Not on file documented as of this encounter Visit Diagnoses Not on filedocumented in this encounter Care Teams Clinical Laboratory Aide Relationship Specialty Start Date End Date Alan Beyer MD [address] [place] [address] PCP - General Family Medicine 06/08/23 documented as of this encounter
--- OUTSIDE RECORDS SUMMARY | 2024-11-27 14:45 | XMS_ITS | Encounter Summary ---
Author Organization [employer] ([place], [place], [place], [place]) Address [address] [place] [address] Care Team Providers Care Bushel Worker Name Role Phone Alan Beyer MD Primary Care Provider [phone] Encounter Details Date Type Department Care Team (Late st Contact Info) Description 05/03/2020 Transcribed Document [facility] [place] [address] [place] [address] ProviderJessenia MD [address] [place] [address] Social History Tobacco Use [...] Jessenia Alvarez MD - 05/03/2020 4:53 PM CHEMICAL COMPOUNDER [place] [id number] CHARLINE BOND :1980 Visit Time:05/03/2020 Your Visit Summary Your Care Team Primary Provider: FRANCOISE BARRETT APRN-EMR Secondary Provider: Your Diagnosis Body aches Viral [...] Medicines to relieve symptoms. These can include frhn-ybx-nivzhjp medicine for pain and fever, medicines for [...] these instructions at home: Medicines ??? Take lbxw-asa-tdxiujs and prescription medicines only as told by [...] and water are not available, use hand packaging assembler. ??? Avoid close contact with friends and [...] 09/08/2016 Document Revised: 04/12/2018 Document Reviewed: 09/08/2016 [employer] Patient Education ?? 2020 [employer]. Emergency Awareness and Preventative Care STROKE is [...] Assistance with quitting is available by contacting 7-415-HNSDZoeMobNOW. This is a free resource providing counseling, support, and referral. Or you may contact your personal physician. [employer] Suicide Prevention Lifeline: The National Suicide Prevention [...] was given the opportunity to ask questions. Patient/Public Relations Studies Director Name: Patient/Public Relations Studies Director Signature: Relationship to Patient: Clinician/Hospital Public Relations Studies Director Signature: Please Provide a Telephone Number Where You Can Be Reached: Is it Permissible To Leave a Message? Date: Electronically signed by Jannette, [facility] Conversion Aerobics Instructor Cerner at 08/31/2022 4:59 PM CDT documented in this encounter Plan of Treatment Not on file documented as of this encounter Visit Diagnoses Not on filedocumented in this encounter Care Teams Bushel Worker Relationship Specialty Start Date End Date Alan Beyer MD [address] [place] [place] [address] PCP - General Family Medicine 06/08/23 documented as of this encounter
--- OUTSIDE RECORDS SUMMARY | 2024-11-27 14:45 | XMS_ITS | Encounter Summary ---
Author Organization [employer] ([place], [place], [place], [place]) Address [address] [place] [address] Care Team Providers Care Heating Unit Mechanic Name Role Phone Alan Beyer MD Primary Care Provider [phone] Encounter Details Date Type Department Care Team (Late st Contact Info) Description 05/30/2021 Transcribed Document [facility] [place] [address] ProviderJessenia MD [address] [place], [place] [id number] Social History Tobacco Use Types Packs/Day Years Used Date Smoking Tobacco: Never Assessed Comments Unknown Sex and Gender Information Value Date Recorded Sex Assigned at Not on file Legal Sex Female 4:28 PM CDT Gender Identity Not on file Sexual Orientation Not on file documented as of this encounter Miscellaneous Notes * Cerner Conversion Note - Jessenia ProviderMD - 05/30/2021 10:11 PM TELEGRAPH REPEATER TECHNICIAN Pain Assessment Entered On: 05/30/2021 22:58 EST Performed On: 05/30/2021 22:58 EST by VANDANA KHALIL RN-PATIENT CARE BEDSIDE NON-EXEMPT Intervention Information: HYDROmorphone Performed by Geovanni Ayers, [employer] Manufacturing Set Up Technician on 05/30/2021 22:21:00 EST HYDROmorphone,1mg IV Push,Left Antecubital [place] Pain Assessment Pain Assessment : Follow-up assessment [...] filedocumented in this encounter Care Teams Heating Unit Mechanic Relationship Specialty Start Date End Date Alan Beyer MD [address] [place] [address] PCP - General Family Medicine 06/08/23 documented as of this encounter
--- OUTSIDE RECORDS SUMMARY | 2024-11-27 14:45 | XMS_ITS | Encounter Summary ---
Author Organization [employer] ([place], [place], [place], [place]) Address [address] [place] [address] Care Team Providers Care Wheel Cutter Name Role Phone Alan Beyer MD Primary Care Provider [phone] Encounter Details Date Type Department Care Team (Late st Contact Info) Description 05/03/2020 Transcribed Document [facility] [place] [address] [place] [address] ProviderJessenia MD [address] [place] [address] Social History Tobacco Use Types Packs/Day Years Used Date Smoking Tobacco: Never Assessed Comments Unknown Sex and Gender Information Value Date Recorded Sex Assigned at Not on file Legal Sex Female 4:28 PM CDT Gender Identity Not on file Sexual Orientation Not on file documented as of this encounter Miscellaneous Notes * Cerner Conversion Note - Jessenia ProviderMD - 05/03/2020 5:02 PM WASHING TUB OPERATOR [place] [address] [facility] [place] [address] PERSON INFORMATION Name CHARLINE BOND Age 39 Years 1980 Sex Female Language Sinhala PCP [address] Marital Status Med Service Emergency Medicine Acct# Arrival 05/03/2020 14:55:00 Visit Reason Body aches; LOSS TASTE ,SMELL,FEVER ,CHILLS,BODY ACHES,COUGH Acuity 4 - Non - Urgent LOS 000 02:07 Depart Date: 05/03/20 05:02 PM Address: [address] [place] [id number] Comment: PROVIDER INFORMATION Provider Role Assigned Unassigned FRANCOISE BARRETT, BAR HOST-EMR ED Physician 05/03/2020 15:11:03 Jyoti Frazier, medical superintendent Nurse 05/03/2020 15:21:47 DIAGNOSIS Viral illness PHYS [...] on filedocumented in this encounter Care Teams Wheel Cutter Relationship Specialty Start Date End Date Alan Beyer MD [address] [place] [address] PCP - General Family Medicine 06/08/23 documented as of this encounter
--- OUTSIDE RECORDS SUMMARY | 2024-11-27 14:45 | XMS_ITS | Encounter Summary ---
Author Organization [employer] ([place], [place], [place], [place]) Address [address] [place] [address] Care Team Providers Care Pond Scaler Name Role Phone Alan Beyer MD Primary Care Provider [phone] Encounter Details Date Type Department Care Team (Late st Contact Info) Description 05/30/2021 Transcribed Document [facility] [place] [facility] [place] [address] ProviderJessenia MD [address] [place] [id number] Social History Tobacco Use Types Packs/Day Years Used Date Smoking Tobacco: Never Assessed Comments Unknown Sex and Gender Information Value Date Recorded Sex Assigned at Not on file Legal Sex Female 4:28 PM CDT Gender Identity Not on file Sexual Orientation Not on file documented as of this encounter Miscellaneous Notes * Cerner Conversion Note - Jessenia Alvarez MD - 05/30/2021 7:25 PM CADET DECK Patient: CHARLINE BOND Age: 40 years Sex: [...] I have reviewed it.. Surgical history: Clavicle (987097300). Tympanostomy ([id number]). Adenoids (563723344). shoulder surgery. Gallbladder absent ([id number]). Tubal ligation ([id number]). Hysterectomy (984563191). Right knee ([id number]). Comments: 05/03/2020 15:32 YENI - Jyoti Frazier [...] EST Height Source Stated Height Entry Format [place] Height/Length, KYRGYZ (ft) 5 ft Height/Length KYRGYZ 5 Inch CLINICALHEIGHT 165.1 cm [place] Body Weight 56.59 kg Weight Source, ED Critical estimated dosing weight Weight Entry Format [place] Weight Upper Sor[place] lb 170 lb CLINICALWEIGHT 77.27 kg Body [...] Pharmacy: [facility] 0.05% nasal spray (Order): 1 [place], Nostrils Both, 1-Time Dilaudid (Order): 1 mg, [...] % 41.3 % Lymph # 3.17 K/uL [place] % 6.1 % [place] # 0.47 K/uL Eos % 0.8 % LOW Eos # 0.06 K/uL Baso % 0.3 % Baso # 0.02 K/uL Slide Review No IG# 0 x10(3)/uL IG% 0 % Urine Type. U CleanCatch Urine Color Yellow Urine Appearance Clear Urine Specific [place] 1.016 Urine pH Dipstick 5.5 LOW Urine [...] 23:44 EST, Discharge to: Home. Prescriptions: Prescription Director Internal Communications Pharmacy: [facility] 5 mg-325 mg oral tablet (Prescribe): 1 [...] Within 2 to 3 days Call your MANAGEMENT DEPARTMENT CHAIR in the morning for follow-up appointment Return [...] on filedocumented in this encounter Care Teams Pond Scaler Relationship Specialty Start Date End Date Alan Beyer MD [address] [place] [address] PCP - General Family Medicine 06/08/23 documented as of this encounter
--- OUTSIDE RECORDS SUMMARY | 2024-11-27 14:46 | XMS_ITS | Encounter Summary ---
Author Organization [employer] ([place], [place], [place], [place]) Address [address] [place] [address] Care Team Providers Care Test Worker Name Role Phone Alan Beyer MD Primary Care Provider [phone] Encounter Details Date Type Department Care Team (Late st Contact Info) Description 05/03/2020 Transcribed Document [facility] [place] Family Medicine [address] [place] [address] ProviderJessenia MD [address] [place] [address] Social History Tobacco Use Types Packs/Day Years Used Date Smoking Tobacco: Never Assessed Comments Unknown Sex and Gender Information Value Date Recorded Sex Assigned at Not on file Legal Sex Female 4:28 PM CDT Gender Identity Not on file Sexual Orientation Not on file documented as of this encounter Miscellaneous Notes * Cerner Conversion Note - Jessenia ProviderMD - 05/03/2020 2:55 PM NETWORK PROGRAM MANAGER ED Assessment Entered On: 05/03/2020 15:39 EST Performed On: 05/03/2020 15:32 EST by Jyoti Frazier, extrusion machine operator General-Functional Assess Information Obtained From : Patient Preferred Communication Mode : Verbal Communication Barrier : None Primary Language : Yakut Any Spiritual/Cultural Needs or Requests : No Currently in Unsafe Situation : No Jyoti Frazier Rn - 05/03/2020 15:32 EST Patient/Family Sales Vendor Communication Primary Language : Yakut Jyoti Frazier Rn - 05/03/2020 15:32 EST [...] (Last Updated: 05/03/2020 15:35:18 EST by Jyoti Frazire, Rn) Alcohol: Alcohol Use History No. Alcohol [...] 05/24/2018 10:39:04 EST by Breanna Ivey, RN) EENT Assessment EENT Assessment WDL : WDL [...] Assessment Comment : SOA, painful breathing Jyoti Frazier Kirt, Elver - 05/03/2020 15:32 EST Oxygen Therapy Oxygen Therapy Mode : Room air Jyoti FrazierElver - 05/03/2020 15:32 EST Gastrointestinal ED Gastrointestinal Symptoms : Nausea Jyoti Frazier Elver Moralez - 05/03/2020 15:32 EST Genitourinary Assessment, ED Genitourinary Assessment WDL : [facility] Thaddeus Frazierbert Moralez Rn - 05/03/2020 15:32 EST Musculoskeletal Musculoskeletal Assessment WDL : [facility] Thaddeus Frazierbert Moralez Rn - 05/03/2020 15:32 EST Integumentary Assessment Integumentary Assessment WDL : [facility] Thaddeus Frazierbert Moralez Rn - 05/03/2020 15:32 EST Neurologic ASMT, ED Neurological Symptoms : Dizziness, Headache, Other: lightheaded KarinJyoti Rn - 05/03/2020 15:32 EST Pain Assessment Pain Assessment : Initial assessment Pain Scale Used : 0-10 Scale Location : Generalized, Head Onset : Abrupt Quality : Aching Pain Worsened by : Breathing, Movement, Palpation, Other: coughing KarinJyoti Rn - 05/03/2020 15:32 EST Pain Scale Intensity : 8 Karin Jyoti Moralez Rn - 05/03/2020 15:32 EST Image 4 - Images currently included in the form version of this document have not been included in the text rendition version of the form. Electronically signed by Trevon Bhatia Conversion Client Relationship Consultant Cerner at 08/31/2022 5:14 PM CDT documented in this encounter Plan of Treatment Not on file documented as of this encounter Visit Diagnoses Not on filedocumented in this encounter Care Teams Test Worker Relationship Specialty Start Date End Date Alan Beyer MD [address] [place] [address] PCP - General Family Medicine 06/08/23 documented as of this encounter
--- OUTSIDE RECORDS SUMMARY | 2024-11-27 14:46 | XMS_ITS | Encounter Summary ---
Author Organization [employer] ([place], [place], [place], [place]) Address [address] [place] [address] Care Team Providers Care Cadence Specialists Name Role Phone Alan Beyer MD Primary Care Provider [phone] Encounter Details Date Type Department Care Team (Late st Contact Info) Description 07/13/2021 Transcribed Document [facility] [place] Family Medicine [address] [place] [address] ProviderJessenia MD [address] [place] [address] Social History Tobacco Use [...] Date Manny rded Speak language other than Japanese at home Not on file 05/23/2023 Want [...] Cerner Conversion Note - Historical Provider, - 07/13/2021 3:53 AM DRAPERY INSTALLER ED Event Note Entered On: 07/13/2021 3:53 EST Performed On: 07/13/2021 3:53 EST by Kay Bernal, ENTERPRISE SECURITY ARCHITECT Event Note ED Event Date/Time : 07/13/2021 3:53 EST ED Event Location : Assigned room ED Event Details : Nursing assessment additional narrative ED Description of Event : Dr. Qiu at bedside to evaluate pt. Kay Bernal, RN - 07/13/2021 3:52 EST Electronically signed by Jannette [facility] Conversion Die Cut Operator Cerner at 08/31/2022 5:00 PM CDT documented in this encounter Plan of Treatment Not on file documented as of this encounter Visit Diagnoses Not on filedocumented in this encounter Care Teams Cadence Specialists Relationship Specialty Start Date End Date Alan Beyer MD [address] [place] [address] PCP - General Family Medicine 06/08/23 documented as of this encounter
--- OUTSIDE RECORDS SUMMARY | 2024-11-27 14:46 | XMS_ITS | Encounter Summary ---
Author Organization [employer] ([place], [place], [place], [place]) Address [address] [place] [address] Care Team Providers Care Biological Plant Operator Name Role Phone Alan Beyer MD Primary Care Provider [phone] Encounter Details Date Type Department Care Team (Late st Contact Info) Description 07/13/2021 Transcribed Document [facility] [place] [address] [place] [address] ProviderJessenia MD [address] [place] [address] Social History Tobacco Use Types [...] Date Manny rded Speak language other than Icelandic at home Not on file 05/23/2023 Want [...] Conversion Note - Historical Provider, - 07/13/2021 2:31 PM MANUFACTURING MILLWRIGHT Admission History, Adult Entered On: 07/13/2021 14:49 [...] Delgado Emergency Contact #1 Phone Number : [phone] Emergency Contact #1 Relationship : mother Emergency Contact #2 : Bentley Allen Emergency Contact #2 Phone Number : [phone] Emergency Contact #2 Relationship : other (ex mychal) Identified Medical Decision Maker : Jean-Pierre Delgado Identified Medical Decision Maker Phone : [phone] Number of People in Class : 1 [...] Obtained From : Patient Primary Language : Icelandic Preferred Communication Mode : Verbal Communication Barrier : None Photograph Enlarger Needed : No Martita Skinner RN-PATIENT CARE [...] Scale Risk Level : 25-45 Medium Risk [place] Fall Interventions : Adequate lighting, Assistive devices [...] 05/24/2018 10:39:04 EST by Breanna Ivey, ELVER) Height and Weight, Clinical Dosing Height Source : Measured Height Entry Format : [place] Height, Feet : 5 ft(Converted to: 152 cm, 60 Inch) Height, Inches : 5 Inch(Converted to: 0 ft 5 Inch, 12.70 cm) Clinical Height : 165.1 cm Weight Source : Standing scale Weight Entry Format : [place] Clinical Dosing Weight : 76.36 kg Weight, Pounds : 168 lb Body Surface Area (BSA) : 1.84 m2 Body Mass Index : 28 kg/m2 (HI) [place] Body Weight : 57 kg Martita Skinner RN-PATIENT CARE [facility] NON-EXEMPT - 07/13/2021 14:31 EST Infectious Disease History Does patient have symptoms of COVID-19? : No Has the Patient Been Tested for COVID-19 in the last 14 days? : No, Patient stated Does the Patient state known exposure to a COVID-19 positive case in the last 14 days? : No Patient Vaccinated for COVID-19 : Fully vaccinated Martita Skinner RN-PATIENT CARE [facility] NON-EXEMPT - 07/13/2021 14:31 EST Infectious Disease [...] day) : NO Martita Skinner RN-PATIENT CARE [facility] NON-EXEMPT - 07/13/2021 14:31 EST Physical contact outside [place] in the last 30 days : No Hospitalized in Foreign Country : No Infectious Disease History : Chicken pox/Shingles, Herpes, Influenza, Mononucleosis INF Disease TB Screening Calc : 0 INF Disease Recent Travel Calc : 0 Martita Skinner RN-PATIENT CARE [facility] NON-EXEMPT - 07/13/2021 14:31 EST Influenza Vaccine Asmt, Adult Previous Vaccines from Immunization Schedule : No qualifying data available. Influenza Immunization, Current Season : Yes Martita Skinner RN-PATIENT CARE [facility] NON-EXEMPT - 07/13/2021 14:31 EST Pneumococcal Vaccine Previous Vaccines from Immunization Schedule : No qualifying data available. Pneumonia Immunization Received : No Pneumococcal Risk Assessment < Age 65 : None Martita Skinner RN-PATIENT CARE [facility] NON-EXEMPT - 07/13/2021 14:31 EST Order Details Order Detail : 0 IV Order Detail : 1 Oxygen Order Detail : 0 Nurse Collect Order Detail : 0 Central Line Order Detail : No Room Service : Not Appropriate Patient Needs Meds Crushed/Liquid : No Martita Skinner RN-PATIENT CARE [facility] NON-EXEMPT - 07/13/2021 14:31 EST Nutrition History Feeding Ability : Independent Adaptive Feeding Equipment : None Eating Poorly Due to Decreased Appetite : No Unplanned Weight Loss in Past 3-6 Months : No Malnutrition Screening Tool Total(mal) : 0 Malnutrition Screening Tool Risk Level : Patient not at risk Martita Skinner RN-PATIENT CARE [facility] NON-EXEMPT - 07/13/2021 14:31 EST [place] Suicide Severity Rating Scale (C-SSRS) CSSRS Past Month Wish to be : No CSSRS Past Month Suicidal Thoughts : No CSSRS Lifetime Suicide Behavior : No Suicide Severity Rating Score : 0 Suicide Severity Rating : No Additional Care Required at this time Martita Skinner RN-PATIENT CARE [facility] NON-EXEMPT - 07/13/2021 14:31 EST Psychosocial History Does Someone Depend on You for Care? : No Do You Have a History of the Following? : Anxiety Currently in Unsafe Situation : No Martita Skinner RN-PATIENT CARE [facility] NON-EXEMPT - 07/13/2021 14:31 EST Sleep Apnea [...] Score : 3 Martita Skinner RN-PATIENT CARE [facility] NON-EXEMPT - 07/13/2021 14:31 EST Valuables and Belongings Valuables and Belongings : Comfort items Comfort Items : Guild Comfort Items Disposition : With patient Martita Skinner RN-PATIENT CARE [facility] NON-EXEMPT - 07/13/2021 14:31 EST documented in this encounter Plan of Treatment Not on file documented as of this encounter Visit Diagnoses Not on filedocumented in this encounter Care Teams Biological Plant Operator Relationship Specialty Start Date End Date Alan Beyer MD [address] [place] [address] PCP - General Family Medicine 06/08/23 documented as of this encounter
--- OUTSIDE RECORDS SUMMARY | 2024-11-27 14:46 | XMS_ITS | Encounter Summary ---
Author Organization [employer] ([place], [place], [place], [place]) Address [address] [place] [address] Care Team Providers Care Head Batcher Name Role Phone Alan Beyer MD Primary Care Provider [phone] Encounter Details Date Type Department Care Team (Late st Contact Info) Description 07/13/2021 Transcribed Document [facility] [place] [address] [place] [address] ProviderJessenia MD [address] [place] [address] Social History Tobacco Use Types [...] Date Manny rded Speak language other than Mohawk at home Not on file 05/23/2023 Want [...] Miscellaneous Notes * Kikaner Conversion Note - Jessenia ProviderMD - 07/13/2021 4:08 PM KOSHER DIETARY SERVICE MANAGER [facility] [address] [place] [address] REFUGIO BOND :1980 Visit Time:07/13/2021 Your Visit Summary Your Care Team Admitting Physician - YOVANA HINOJOSA MD-INT Attending Physician - YOVANA HINOJOSA MD-INT Primary Care Physician - MICHAEL HOSKINS MD-[facility] Referring Physician - PRIYA, SELF REFERRED Your Diagnosis Chest pain Hypokalemia [...] Follow-Up Appointments Follow Up with MICHAEL HOSKINS MD-[facility] When Within 2 to 3 days Comments Call for follow up appointment Where: [address] [place] [address]- Follow Up with HEIDI VILLA MD-CAR When Within 1 to 2 weeks Comments Office to call with appoint/instructions Where: [address] [facility] [address] [place] [address]- Medications What How Much When Instructions Next Dose valsartan (Diovan 80 mg oral tablet) 1 Tablet(s) Oral Every Day Duration: 30 Day(s) Pickup at [address] 07/13/21 clonazePAM (clonazePAM 0.5 mg oral tablet) 1 Tablet(s) Oral Two Times A [facility] 07/13/21 loratadine (Claritin 24 Hour Allergy 10 [...] Pharmacy Information [facility]: [address] [place], [place] [id number] [phone] Take your medications faithfully. Do NOT skip [...] doctor. This is important. Medicines ??? Take qinz-csk-zkrwnju and prescription medicines only as told by [...] provider. Document Revised: 01/08/2019 Document Reviewed: 01/08/2019 Lala Patient Education ?? 2020 Lala Inc. How to Take Your Blood Pressure [...] buy a blood pressure monitor at most [employer] or online. Where to find more information [place] [employer]: www.heart.org Contact a health care [...] provider. Document Revised: 04/23/2020 Document Reviewed: 04/23/2020 Elsevier Patient Education ?? 2020 Lala Inc. Heart Attack A heart attack occurs when blood and oxygen supply to the heart is cut off. A heart attack causes damage to the heart that cannot be fixed. A heart attack is also called a myocardial infarction, or [place]. If you think you are having a [...] these instructions at home: Medicines ??? Take ysea-des-wpiidhk and prescription medicines only as told by [...] provider. Document Revised: 08/11/2019 Document Reviewed: 08/11/2019 Lala Patient Education ?? 2020 Lala Inc. Emergency Awareness and Preventative Care STROKE [...] Assistance with quitting is available by contacting 4-272-YSPUNOW. This is a free resource providing counseling, [...] range between ( 1.0 and 7.0 ) Lamar #: 0.41 K/uL -- Normal range between ( 0.24 and 0.82 ) Eos #: 0.19 K/uL -- Normal range between ( 0.04 and 0.54 ) Lamar %: 5.6 % -- Normal range between [...] ) Urine Bilirubin Dipstick: Negative Urine Specific [place]: *1.002 -- Normal range between ( 1.005 [...] Portable: CR Chest 1 Vw Portable Patient Name:REFUGIO BOND I have received and understand this information and was given the opportunity to ask questions. Patient/Impression Printer Name: Patient/Impression Printer Signature: Relationship to Patient: Clinician/Hospital Impression Printer Signature: Date: documented in this encounter Plan of Treatment Not on file documented as of this encounter Visit Diagnoses Not on filedocumented in this encounter Care Teams Head Batcher Relationship Specialty Start Date End Date Alan Beyer MD [address] [place] [address] PCP - General Family Medicine 06/08/23 documented as of this encounter
--- OUTSIDE RECORDS SUMMARY | 2024-11-27 14:46 | XMS_ITS | Encounter Summary ---
Author Organization [employer] ([place], [place], [place], [place]) Address [address] [place] [address] Care Team Providers Care Customer Care Team Coach Name Role Phone Alan Beyer MD Primary Care Provider [phone] Encounter Details Date Type Department Care Team (Late st Contact Info) Description 07/04/2018 Transcribed Document [facility] [place] Family Medicine [address] [place] [address] ProviderJessenia MD [address] [place] [address] Social History Tobacco Use Types Packs/Day Years Used Date Smoking Tobacco: Never Assessed Comments Unknown Sex and Gender Information Value Date Recorded Sex Assigned at Not on file Legal Sex Female 4:28 PM CDT Gender Identity Not on file Sexual Orientation Not on file documented as of this encounter Miscellaneous Notes * Cerner Conversion Note - Jessenia ProviderMD - 07/04/2018 2:55 PM CHILD WELFARE WORKER Pain Assessment Entered On: 07/04/2018 16:09 EST Performed On: 07/04/2018 15:32 EST by SHAMA CASTILLO Rn Intervention Information: HYDROmorphone Performed by SHAMA CASTILLO Rn on 07/04/2018 15:02:00 EST HYDROmorphone,0.5mg IV Push,Right Antecubit [place] Pain Assessment Pain Assessment : Follow-up assessment Pain Scale Used : 0-10 Scale HSAMA CASTILLO Rn - 07/04/2018 16:09 EST Pain [...] filedocumented in this encounter Care Teams Customer Care Team Coach Relationship Specialty Start Date End Date Alan Beyer MD [address] [place] [address] PCP - General Family Medicine 06/08/23 documented as of this encounter
--- OUTSIDE RECORDS SUMMARY | 2024-11-27 14:46 | XMS_ITS | Encounter Summary ---
Author Organization [employer] ([place], [place], [place], [place]) Address [address] [place] [address] Care Team Providers Care Field Foreman Name Role Phone Alan Beyer MD Primary Care Provider [phone] Encounter Details Date Type Department Care Team (Late st Contact Info) Description 07/13/2021 Transcribed Document [facility] [place] Family Medicine [address] [place] [address] ProviderJessenia MD [address] [place] [address] Social History Tobacco Use Types [...] Date Manny rded Speak language other than Setswana at home Not on file 05/23/2023 Want [...] Conversion Note - Historical Provider, - 07/13/2021 4:05 AM TEST INSPECTION ENGINEER Pain Assessment Entered On: 07/13/2021 4:39 EST [...] of the form. Electronically signed by Jannette [facility] Conversion Marine Engine Driver Cerner at 08/31/2022 5:07 PM CDT documented in this encounter Plan of Treatment Not on file documented as of this encounter Visit Diagnoses Not on filedocumented in this encounter Care Teams Field Foreman Relationship Specialty Start Date End Date Alan Beyer MD [address] [place] [address] PCP - General Family Medicine 06/08/23 documented as of this encounter
--- OUTSIDE RECORDS SUMMARY | 2024-11-27 14:46 | XMS_ITS | Encounter Summary ---
Author Organization [employer] ([place], [place], [place], [place]) Address [address] [place] [address] Care Team Providers Care Spindraw Operator Name Role Phone Alan Beyer MD Primary Care Provider [phone] Encounter Details Date Type Department Care Team (Late st Contact Info) Description 05/03/2020 Transcribed Document [facility] [place] [address] [place] [address] ProviderJessenia MD [address] [place] [address] Social History Tobacco Use Types Packs/Day Years Used Date Smoking Tobacco: Never Assessed Comments Unknown Sex and Gender Information Value Date Recorded Sex Assigned at Not on file Legal Sex Female 4:28 PM CDT Gender Identity Not on file Sexual Orientation Not on file documented as of this encounter Miscellaneous Notes * Cerner Conversion Note - Historical ProviderMD - 05/03/2020 2:55 PM BRAND MARKETING COORDINATOR Broset Violence Assessment Entered On: 05/03/2020 15:30 EST Performed On: 05/03/2020 15:30 EST by Jyoti Frazier Rn Broset Violence Assessment Broset Violence Checklist of Symptoms : None Broset Violence Symptoms Subtotal : 0 Broset Violence Symptoms Indicator : Low risk (0) Jyoti Frazier Rn - 05/03/2020 15:30 EST Electronically signed by Jannette [facility] Conversion Plasterer Spray Gun Cerner at 08/31/2022 5:13 PM CDT documented in this encounter Plan of Treatment Not on file documented as of this encounter Visit Diagnoses Not on filedocumented in this encounter Care Teams Spindraw Operator Relationship Specialty Start Date End Date Alan Beyer MD [address] [place] [address] PCP - General Family Medicine 06/08/23 documented as of this encounter
--- OUTSIDE RECORDS SUMMARY | 2024-11-27 14:46 | XMS_ITS | Encounter Summary ---
Author Organization [employer] ([place], [place], [place], [place]) Address [address] [place] [address] Care Team Providers Care Student Teacher Name Role Phone Alan Beyer MD Primary Care Provider [phone] Encounter Details Date Type Department Care Team (Late st Contact Info) Description 07/13/2021 Transcribed Document [facility] [place] Family Medicine [address] [place] [address] ProviderJessenia MD [address] [place] [address] Social History Tobacco Use Types [...] Date Manny rded Speak language other than Portuguese at home Not on file 05/23/2023 Want [...] Cerner Conversion Note - Historical ProviderMD - 07/13/2021 12:47 PM EDITOR ED Discharge Entered On: 07/13/2021 12:48 EST [...] - 07/13/2021 12:47 EST Electronically signed by Jannette [facility] Conversion Computer Consultant Cerner at 08/31/2022 5:01 PM CDT documented in this encounter Plan of Treatment Not on file documented as of this encounter Visit Diagnoses Not on filedocumented in this encounter Care Teams Student Teacher Relationship Specialty Start Date End Date Alan Beyer MD [address] [place] [address] PCP - General Family Medicine 06/08/23 documented as of this encounter
--- OUTSIDE RECORDS SUMMARY | 2024-11-27 14:46 | XMS_ITS | Encounter Summary ---
Author Organization [employer] ([place], [place], [place], [place]) Address [address] [place] [address] Care Team Providers Care Manager Continuous Improvement Name Role Phone Alan Beyer MD Primary Care Provider Encounter Details Date Type Department Care Team (Late st Contact Info) Description 05/03/2020 Transcribed Document [facility] [place] [address] [place] [address] ProviderJessenia MD [address] [place] [address] Social History Tobacco Use Types [...] Jessenia Alvarez MD - 05/03/2020 4:53 PM PLANT PACKER [place] [id number] CHARLINE BOND :1980 Visit Time:05/03/2020 Your Visit [...] Medicines to relieve symptoms. These can include jzaj-whf-eaylxbp medicine for pain and fever, medicines for [...] these instructions at home: Medicines ??? Take rook-fxm-wtsfpvn and prescription medicines only as told by [...] and water are not available, use hand open hearth worker. ??? Avoid close contact with friends and [...] 09/08/2016 Document Revised: 04/12/2018 Document Reviewed: 09/08/2016 Liftago Patient Education ?? 2020 Patient Conversation Media. Emergency Awareness and Preventative Care STROKE is [...] Assistance with quitting is available by contacting 8-220-QKVYEnvironmental OperationsNOW. This is a free resource providing counseling, support, and referral. Or you may contact your personal physician. [employer] Suicide Prevention Lifeline: The National Suicide Prevention [...] was given the opportunity to ask questions. Patient/Metallurgical Engineering Teacher Name: Patient/Metallurgical Engineering Teacher Signature: Relationship to Patient: Clinician/Hospital Metallurgical Engineering Teacher Signature: Please Provide a Telephone Number Where You Can Be Reached: Is it Permissible To Leave a Message? Date: Electronically signed by Jannette, [facility] Conversion Switcher Cerner at 08/31/2022 5:03 PM CDT documented in this encounter Plan of Treatment Not on file documented as of this encounter Visit Diagnoses Not on filedocumented in this encounter Care Teams Manager Continuous Improvement Relationship Specialty Start Date End Date Alan Beyer MD [address] [facility] [place] [address] PCP - General Family Medicine 06/08/23 documented as of this encounter
--- OUTSIDE RECORDS SUMMARY | 2024-11-27 14:46 | XMS_ITS | Encounter Summary ---
Author Organization [employer] ([place], [place], [place], [place]) Address [address] [place] [address] Care Team Providers Care Continuous Pickling Line Pickler Helper Name Role Phone Alan Beyer MD Primary Care Provider [phone] Encounter Details Date Type Department Care Team (Late st Contact Info) Description 07/13/2021 Transcribed Document [facility] [place] [address] [place] [address] ProviderJessenia MD [address] [place] [address] Social History Tobacco Use Types [...] Date Manny rded Speak language other than [place]ine[place] at home Not on file 05/23/2023 Want [...] In the last 10 days, have yo adriano been in contact with someone who was confirmed or suspected to have Coronavirus/COVID-19? No / Unsure 04/29/2022 4:19 PM EST documented as of this encounter Miscellaneous Notes * Jordan Conversion Note - Historical Provider, - 07/13/2021 6:32 AM COORDINATE MEASURING MACHINE TECHNICIAN Patient: REFUGIO BOND Age: 40 years Sex: Female : [...] her dad at age 45 of an SD and he was a smoker and her sister had an SD at 42 and she is a smoker [...] other EKGs on file. Surgical history: Clavicle (454827912). Tympanostomy (0510972480). Adenoids ([id number]). shoulder surgery. Gallbladder absent ([id number]). Tubal ligation (414327547). Hysterectomy (815517478). Right knee ([id number]). Comments: 05/03/2020 15:32 Jyoti Tilley Rn menisectomy, [...] EST Height Source Measured Height Entry Format [place] Height/Length, PARAGUAYAN (ft) 5 ft Height/Length PARAGUAYAN 5 Inch CLINICALHEIGHT 165.1 cm Thrall Body Weight 56.59 kg Weight Source, ED Critical estimated dosing weight Weight Entry Format [place] Weight [place] lb 168 lb CLINICALWEIGHT 76.36 kg Body [...] rhythm, No ST changes, no ectopy, normal MO & QRS intervals, EP Interp, unchanged compared to prior. Electrocardiogram: Rate 84, normal sinus rhythm, no ectopy, normal MO & QRS intervals, EP Interp, no STEMI. Results review: Lab results : Lab Results 07/13/2021 6:15 EST Troponin I High Sensitivity 58.4 pg/mL 07/13/2021 4:05 EST Troponin I High Sensitivity 33.5 pg/mL 07/13/2021 2:00 EST Magnesium Level 1.8 mg/dL Urine Type. U CleanCatch Urine Color Yellow Urine Appearance Clear Urine Specific [place] *1.002 Urine pH Dipstick 6.0 Urine Leukocyte [...] % 46.2 % Lymph # 3.38 K/uL [place] % 5.6 % [place] # 0.41 K/uL Eos % 2.6 % Eos # 0.19 K/uL Baso % 0.3 % Baso # 0.02 K/uL Slide Review No IG# 0 x10(3)/uL IG% 0 % . Radiology results: Radiology Results (Last 48 hours) [id number] -- 07/13/2021 01:46 CTA Chest (07/13/2021 06:03) [...] hernia.Images reviewed, interpreted, and dictated by Gino Cota MD . Reexamination/ Reevaluation Patient took several [...] cc time 30 Electronically signed by Jannette [facility] Conversion Groundskeeping Maintenance Cerner at 08/31/2022 5:01 PM CDT documented in this encounter Plan of Treatment Not on file documented as of this encounter Visit Diagnoses Not on filedocumented in this encounter Care Teams Continuous Pickling Line Pickler Helper Relationship Specialty Start Date End Date Alan Beyer MD [address] [place] [address] PCP - General Family Medicine 06/08/23 documented as of this encounter
--- OUTSIDE RECORDS SUMMARY | 2024-11-27 14:46 | XMS_ITS | Encounter Summary ---
Author Organization [employer] ([place], [place], [place], [place]) Address [address] [place] [address] Care Team Providers Care Grappler Name Role Phone Alan Beyer MD Primary Care Provider [phone] Encounter Details Date Type Department Care Team (Late st Contact Info) Description 07/04/2018 Transcribed Document [facility] [place] Family Medicine [address] [place] [address] ProviderJessenia MD [address], [place] [address] Social History Tobacco Use Types Packs/Day Years Used Date Smoking Tobacco: Never Assessed Comments Unknown Sex and Gender Information Value Date Recorded Sex Assigned at Not on file Legal Sex Female 4:28 PM CDT Gender Identity Not on file Sexual Orientation Not on file documented as of this encounter Miscellaneous Notes * Cerner Conversion Note - Jessenia ProviderMD - 07/04/2018 11:09 AM CLAY TRANSPORTER ED Assessment Entered On: 07/04/2018 12:52 EST Performed On: 07/04/2018 12:48 EST by Luis Choudhury Rn ED Quick Look Assessment Level of Consciousness : Alert, Awake, Comatose Affect/Behavior : Appropriate Skin Temperature : Warm Luis Choudhury Rn - 07/04/2018 12:48 EST ED General-Functional Assess Information Obtained From : Patient Preferred Communication Mode : Verbal Communication Barrier : None Primary Language : Upper Sorbian Any Spiritual/Cultural Needs or Requests : No [...] No. (Last Updated: 05/24/2018 10:39:04 EST by Braenna Ivey, [place]) Nutrition/Health: Regular (Last Updated: 05/24/2018 [...] 07/04/2018 13:31 EST Electronically signed by Jannette [facility] Conversion Wood Veneer Taper Cerner at 08/31/2022 5:03 PM CDT documented in this encounter Plan of Treatment Not on file documented as of this encounter Visit Diagnoses Not on filedocumented in this encounter Care Teams Grappler Relationship Specialty Start Date End Date Alan Beyer MD [address] [place] [address] PCP - General Family Medicine 06/08/23 documented as of this encounter
--- OUTSIDE RECORDS SUMMARY | 2024-11-27 14:46 | XMS_ITS | Encounter Summary ---
Author Organization [employer] ([place], [place], [place], [place]) Address [address] [place] [address] Care Team Providers Care Finance Business Manager Name Role Phone Alan Beyer MD Primary Care Provider [phone] Encounter Details Date Type Department Care Team (Late st Contact Info) Description 07/13/2021 Transcribed Document [facility] [place] Family [place] [address] [place] [address] ProviderJessenia MD [address] [place] [address] Social History Tobacco Use Types [...] Date Manny rded Speak language other than Georgian at home Not on file 05/23/2023 Want [...] Conversion Note - Historical Provider, - 07/13/2021 4:08 PM PEARL HAND Patient Education Materials Follows: Hypertension, Adult Hypertension [...] doctor. This is important. Medicines ??? Take vyso-pwa-ckuodgw and prescription medicines only as told by [...] provider. Document Revised: 01/08/2019 Document Reviewed: 01/08/2019 Tapingo Patient Education ? 2020 Tapingo Inc. Emergency Medicine Heart Attack A heart attack occurs when blood and oxygen supply to the heart is cut off. A heart attack causes damage to the heart that cannot be fixed. A heart attack is also called a myocardial infarction, or [place]. If you think you are having a [...] these instructions at home: Medicines ??? Take uvgs-fct-crltdwc and prescription medicines only as told by [...] provider. Document Revised: 08/11/2019 Document Reviewed: 08/11/2019 Else5to1 Patient Education ? 2020 Tapingo Inc. Procedures How to Take Your Blood [...] buy a blood pressure monitor at most [employer] or online. Where to find more information [place] Heart Association: www.heart.org Contact a health care [...] provider. Document Revised: 04/23/2020 Document Reviewed: 04/23/2020 Else5to1 Patient Education ? 2020 Tapingo Inc. documented in this encounter Plan of Treatment Not on file documented as of this encounter Visit Diagnoses Not on filedocumented in this encounter Care Teams Finance Business Manager Relationship Specialty Start Date End Date Alan Beyer MD [address] [place] [address] PCP - General Family Medicine 06/08/23 documented as of this encounter
--- OUTSIDE RECORDS SUMMARY | 2024-11-27 14:46 | XMS_ITS | Encounter Summary ---
Author Organization [employer] ([place], [place], [place], [place]) Address [address] [place] [address] Care Team Providers Care Washing Machine Installer Name Role Phone Alan Beyer MD Primary Care Provider [phone] Encounter Details Date Type Department Care Team (Late st Contact Info) Description 05/03/2020 Transcribed Document [facility] [place] Family Medicine [address] [place] [address] ProviderJessenia MD [address] [place] [address] Social History Tobacco Use Types Packs/Day Years Used Date Smoking Tobacco: Never Assessed Comments Unknown Sex and Gender Information Value Date Recorded Sex Assigned at Not on file Legal Sex Female 4:28 PM CDT Gender Identity Not on file Sexual Orientation Not on file documented as of this encounter Miscellaneous Notes * Cerner Conversion Note - Historical ProviderMD - 05/03/2020 10:20 PM BALLET PROFESSOR Novel Coronavirus 2019 - - Negative 05/03/2020 16:14 05/03/2020 22:20 (FRANCOISE BARRETT, TAIL EDGER-EMR) Reviewed by Provider, No further action required documented in this encounter Plan of Treatment Not on file documented as of this encounter Visit Diagnoses Not on filedocumented in this encounter Care Teams Washing Machine Installer Relationship Specialty Start Date End Date Alan Beyer MD [address] [place] [address] PCP - General Family Medicine 06/08/23 documented as of this encounter
--- OUTSIDE RECORDS SUMMARY | 2024-11-27 14:46 | XMS_ITS | Encounter Summary ---
Author Organization [email or web address] ([place], [place], [place], [place]) Address [address] [place] [address] Care Team Providers Care Display Manager Name Role Phone Alan Beyer MD Primary Care Provider [phone] Encounter Details Date Type Department Care Team (Late st Contact Info) Description 05/03/2020 Transcribed Document [facility] [place] [address] [place] [address] ProviderJessenia MD [address] [place], [place] [address] Social History Tobacco Use Types Packs/Day Years Used Date Smoking Tobacco: Never Assessed Comments Unknown Sex and Gender Information Value Date Recorded Sex Assigned at Not on file Legal Sex Female 4:28 PM CDT Gender Identity Not on file Sexual Orientation Not on file documented as of this encounter Miscellaneous Notes * Cerner Conversion Note - Jessenia Alvarez MD - 05/03/2020 5:01 PM DIRECTOR OF VENDOR MANAGEMENT ED Discharge Entered On: 05/03/2020 17:02 EST Performed On: 05/03/2020 17:01 EST by Jyoti Cordon archivist economic history Process Patient Disposition : Discharge Personal Belongings [...] Opportunity For Questions Given : Patient Jyoti Codron RN - 05/03/2020 17:01 EST Electronically signed by Jannette, [facility] Conversion Online Facilitator Cerner at 08/31/2022 5:18 PM CDT documented in this encounter Plan of Treatment Not on file documented as of this encounter Visit Diagnoses Not on filedocumented in this encounter Care Teams Display Manager Relationship Specialty Start Date End Date Alan Beyer MD [address] [place] [address] PCP - General Family Medicine 06/08/23 documented as of this encounter
--- OUTSIDE RECORDS SUMMARY | 2024-11-27 14:46 | XMS_ITS | Encounter Summary ---
Author Organization [employer] ([place], [place], [place], [place]) Address [address] [place] [address] Care Team Providers Care Gill Box Operator Name Role Phone Alan Beyer MD Primary Care Provider [phone] Encounter Details Date Type Department Care Team (Late st Contact Info) Description 07/13/2021 Transcribed Document [facility] [place] [address] [place] [address] ProviderJessenia MD [address] [place] [address] Social History Tobacco Use Types [...] Conversion Note - Historical Provider, - 07/13/2021 5:16 AM PERSONAL INJURY LITIGATION PARALEGAL Pain Assessment Entered On: 07/13/2021 6:52 EST Performed On: 07/13/2021 6:52 EST by Reigna Saldana RN-PATIENT CARE BEDSIDE NON-EXEMPT Intervention Information: HYDROmorphone Performed by Regina Saldana RN-PATIENT CARE BEDSIDE NON-EXEMPT on 07/13/2021 05:29:00 EST HYDROmorphone,1mg IV Push,Peripheral Line 1 Pain Assessment Pain Assessment : Follow-up assessment Pain Scale Used : 0-10 Scale Regina Saldana RN-PATIENT CARE BEDSIDE NON-EXEMPT - 07/13/2021 6:52 EST Pain Scale Intensity : 4 Regina Saldana RN-PATIENT CARE BEDSIDE NON-EXEMPT - 07/13/2021 6:52 EST Image 4 - Images currently included in the form version of this document have not been included in the text rendition version of the form. documented in this encounter Plan of Treatment Not on file documented as of this encounter Visit Diagnoses Not on filedocumented in this encounter Care Teams Gill Box Operator Relationship Specialty Start Date End Date Alan Beyer MD [address] [place] [address] PCP - General Family Medicine 06/08/23 documented as of this encounter
--- OUTSIDE RECORDS SUMMARY | 2024-11-27 14:46 | XMS_ITS | Encounter Summary ---
Author Organization [employer] ([place], [place], [place], [place]) Address [address] [place] [address] Care Team Providers Care Supervisor Fabrication Department Name Role Phone Alan Beyer MD Primary Care Provider [phone] Encounter Details Date Type Department Care Team (Late st Contact Info) Description 05/03/2020 Transcribed Document [facility] [place] [address] [place] [address] ProviderJessenia MD [address] [place] [address] Social History Tobacco Use Types [...] - Historical ProviderMD - 05/03/2020 2:55 PM EVS MANAGER [place] Suicide Severity Rating Scale (C-SSRS) Entered On: 05/03/2020 15:30 EST Performed On: 05/03/2020 15:30 EST by Jyoti Frazier Rn [place] Suicide Severity Rating Scale (C-SSRS) CSSRS Past Month Wish to be : No CSSRS Past Month Suicidal Thoughts : No CSSRS Lifetime Suicide Behavior : No Suicide Severity Rating Score : 0 Suicide Severity Rating : No Additional Care Required at this time Jyoti Frazier Rn - 05/03/2020 15:30 EST Electronically signed by Jannette [facility] Conversion Milk Hauler Cerner at 08/31/2022 5:19 PM CDT documented in this encounter Plan of Treatment Not on file documented as of this encounter Visit Diagnoses Not on filedocumented in this encounter Care Teams Supervisor Fabrication Department Relationship Specialty Start Date End Date Alan Beyer MD [address] [place] [address] PCP - General Family Medicine 06/08/23 documented as of this encounter
--- OUTSIDE RECORDS SUMMARY | 2024-11-27 14:47 | XMS_ITS | Encounter Summary ---
Author Organization [employer] ([place], [place], [place], [place]) Address [address] [place] [address] Care Team Providers Care Store Operations Specialist Name Role Phone Alan Beyer MD Primary Care Provider [phone] Encounter Details Date Type Department Care Team (Late st Contact Info) Description 07/13/2021 Transcribed Document [facility] [place] [address] [place] [address] ProviderJessenia MD [address] [place] [address] Social History Tobacco Use Types [...] Conversion Note - Historical Provider, - 07/13/2021 1:46 AM HEAD BOOKKEEPER [place] Violence Assessment Entered On: 07/13/2021 2:06 EST Performed On: 07/13/2021 2:05 EST by Kay Bernal, RN Broset Violence Assessment Broset Violence Checklist of Symptoms : None Broset Violence Symptoms Subtotal : 0 Broset Violence Symptoms Indicator : Low risk (0) Kay Bernal RN - 07/13/2021 2:05 EST Electronically signed by Jannette [facility] Conversion Facilities Director Cerner at 08/31/2022 5:17 PM CDT documented in this encounter Plan of Treatment Not on file documented as of this encounter Visit Diagnoses Not on filedocumented in this encounter Care Teams Store Operations Specialist Relationship Specialty Start Date End Date Alan Beyer MD [address] [place] [address] PCP - General Family Medicine 06/08/23 documented as of this encounter
--- OUTSIDE RECORDS SUMMARY | 2024-11-27 14:47 | XMS_ITS | Encounter Summary ---
Author Organization [employer] ([place], [place], [place], [place]) Address [address] [place] [address] Care Team Providers Care Engineering Clerk Name Role Phone Alan Beyer MD Primary Care Provider [phone] Encounter Details Date Type Department Care Team (Late st Contact Info) Description 07/04/2018 Transcribed Document [facility] [place] [facility] [place] [address] ProviderJessenia MD [address] [place], [place] [id number] Social History Tobacco Use Types Packs/Day Years Used Date Smoking Tobacco: Never Assessed Comments Unknown Sex and Gender Information Value Date Recorded Sex Assigned at Not on file Legal Sex Female 4:28 PM CDT Gender Identity Not on file Sexual Orientation Not on file documented as of this encounter Miscellaneous Notes * Cerner Conversion Note - Jessenia ProviderMD - 07/04/2018 11:53 AM OVERSEER KOSHER KITCHEN Patient: REFUGIO BOND Age: 37 years Sex: [...] Medical/ Family/ Social History Surgical history: Clavicle ([id number]). Tympanostomy ([id number]). Adenoids (836212299). shoulder surgery. Gallbladder absent ([id number]). Tubal ligation (626812720). Hysterectomy ([id number]).. Family history: Not significant. Social history: Social [...] Color Yellow Urine Appearance Clear Urine Specific Gordon 1.002 LOW Urine pH Dipstick 6.0 Urine [...] % 31.5 % Lymph # 2.71 K/uL Cottle % 4.9 % Cottle # 0.42 K/uL Eos % 1.4 % Eos # 0.12 K/uL Baso % 0.2 % Baso # 0.02 K/uL Slide Review No IG# 0 x10(3)/uL IG% 0 % PT 9.8 Second(s) INR 1.0 PTT 27.5 Second(s) . Radiology results: Radiology Results (Last 48 hours) [id number] -- 07/04/2018 11:09 CT Abdomen Pelvis W [...] 15:27 EST, Discharge to: Home. Prescriptions: Prescription Chief Operations Officer Pharmacy: promethazine 25 mg oral tablet (Prescribe): [...] the following educational materials: Abdominal Pain, Adult, Rzoc-bg-Epzi, Pain Without a Known Cause. Limitations: Limited activity. Follow up with: [facility] Within As needed Patient has a primary care physician with Eveline Bueno. For assistance in the future with finding a new primary care physician please contact the Patient Resource Center at [phone].; EVELINE BUENO Within 2 to 3 days; [...] filedocumented in this encounter Care Teams Engineering Clerk Relationship Specialty Start Date End Date Alan Beyer MD [address] [place] [address] PCP - General Family Medicine 06/08/23 documented as of this encounter
--- OUTSIDE RECORDS SUMMARY | 2024-11-27 14:47 | XMS_ITS | Encounter Summary ---
Author Organization [employer] ([place], [place], [place], [place]) Address [address] [place] [address] Care Team Providers Care Retail Salesman Name Role Phone Alan Beyer MD Primary Care Provider [phone] Encounter Details Date Type Department Care Team (Late st Contact Info) Description 07/13/2021 Transcribed Document [facility] [place] [address] [place] [address] ProviderJessenia MD [address] [place] [address] Social History Tobacco Use Types [...] Date Manny rded Speak language other than Croatian at home Not on file 05/23/2023 Want [...] - Historical Provider, - 07/13/2021 1:46 AM COOLER CONVEYOR LOADER [place] Suicide Severity Rating Scale (C-SSRS) Entered On: 07/13/2021 2:06 EST Performed On: 07/13/2021 2:05 EST by Kay Bernal, RN [place] Suicide Severity Rating Scale (C-SSRS) CSSRS Past Month Wish to be : No CSSRS Past Month Suicidal Thoughts : No CSSRS Lifetime Suicide Behavior : No Suicide Severity Rating Score : 0 Suicide Severity Rating : No Additional Care Required at this time Kay Bernal RN - 07/13/2021 2:05 EST Electronically signed by [facility] Conversion Theatre Professor Cerner at 08/31/2022 5:06 PM CDT documented in this encounter Plan of Treatment Not on file documented as of this encounter Visit Diagnoses Not on filedocumented in this encounter Care Teams Retail Salesman Relationship Specialty Start Date End Date Alan Beyer MD [address] [place] [address] PCP - General Family Medicine 06/08/23 documented as of this encounter
--- OUTSIDE RECORDS SUMMARY | 2024-11-27 14:47 | XMS_ITS | Encounter Summary ---
Author Organization [employer] ([place], [place], [place], [place]) Address [address] [place] [address] Care Team Providers Care Sewing Machine Operator Plastic Zipper Name Role Phone Alan Beyer MD Primary Care Provider [phone] Encounter Details Date Type Department Care Team (Late st Contact Info) Description 05/15/2020 Transcribed Document [facility] [place] [facility] [place] [address] ProviderJessenia MD [address] [place] [id number] Social History Tobacco Use Types Packs/Day Years Used Date Smoking Tobacco: Never Assessed Comments Unknown Sex and Gender Information Value Date Recorded Sex Assigned at Not on file Legal Sex Female 4:28 PM CDT Gender Identity Not on file Sexual Orientation Not on file documented as of this encounter Miscellaneous Notes * Cerner Conversion Note - Historical ProviderMD - 05/15/2020 1:32 PM INSTALLMENT LOAN COLLECTOR Patient: CHARLINE BOND Age: 39 years Sex: [...] as documented in chart. Surgical history: Clavicle ([id number]). Tympanostomy ([id number]). Adenoids (196845592). shoulder surgery. Gallbladder absent (105117318). Tubal ligation (711741639). Hysterectomy (709600164). Right knee ([id number]). Comments: 05/03/2020 15:32 EST - Jyoti Frazier [...] EST Height Source Stated Height Entry Format [place] Height/Length, MACEDONIAN (ft) 5 ft Height/Length MACEDONIAN 5 Inch CLINICALHEIGHT 165.1 cm [place] Body Weight 56.59 kg Weight Source, ED Critical estimated dosing weight Weight Entry Format [place] Weight Romanian lb 165 lb CLINICALWEIGHT 75 kg Body [...] 29.2 % Lymph # 0.86 K/uL LOW [place] % 13.6 % HI [place] # 0.40 K/uL Eos % 0.7 % [...] a primary care provider the patient resource feeder loader can assist you with establishing care and scheduling follow-up. The Patient Resource Civil Service Clerk can be contacted at .. Counseled: Patient, Regarding diagnosis, Regarding diagnostic results, Regarding treatment plan, Patient indicated understanding of instructions. documented in this encounter Plan of Treatment Not on file documented as of this encounter Visit Diagnoses Not on filedocumented in this encounter Care Teams Sewing Machine Operator Plastic Zipper Relationship Specialty Start Date End Date Alan Beyer MD [address] [place] [address] PCP - General Family Medicine 06/08/23 documented as of this encounter
--- OUTSIDE RECORDS SUMMARY | 2024-11-27 14:47 | XMS_ITS | Encounter Summary ---
Author Organization [employer] ([place], [place], [place], [place]) Address [address] [place] [address] Care Team Providers Care Mattress Inspector Name Role Phone Alan Beyer MD Primary Care Provider [phone] Encounter Details Date Type Department Care Team (Late st Contact Info) Description 07/13/2021 Transcribed Document [facility] [place] [address] [place] [address] ProviderJessenia MD [address] [place] [address] Social History Tobacco Use Types [...] Date Manny rded Speak language other than Azeri at home Not on file 05/23/2023 Want [...] Conversion Note - Historical Provider, - 07/13/2021 1:58 PM DEVELOPMENT ENG Consult Phone Call Documentation Entered On: 07/13/2021 14:07 EST Performed On: 07/13/2021 13:58 EST by Shahab Lobo Patient Base Remover Phone Call for Consults Consult Phone Call/Page Attempt : First call Provider Service Notified Name : Cardiology Consult, Additional Information : consult placed with Shahab Cee Patient Base Remover - 07/13/2021 14:06 EST Electronically signed by Jannette [facility] Conversion Silk Spreader Cerner at 08/31/2022 5:12 PM CDT documented in this encounter Plan of Treatment Not on file documented as of this encounter Visit Diagnoses Not on filedocumented in this encounter Care Teams Mattress Inspector Relationship Specialty Start Date End Date Alan Beyer MD [address] [place] [address] PCP - General Family Medicine 06/08/23 documented as of this encounter
--- OUTSIDE RECORDS SUMMARY | 2024-11-27 14:47 | XMS_ITS | Encounter Summary ---
Author Organization [employer] ([place], [place], [place], [place]) Address [address] [place] [address] Care Team Providers Care Grain Commodity Manager Name Role Phone Alan Beyer MD Primary Care Provider [phone] Encounter Details Date Type Department Care Team (Late st Contact Info) Description 05/15/2020 Transcribed Document [facility] [place] [address] ProviderJessenia MD [address] [place], [place] [id number] Social History Tobacco Use Types Packs/Day Years Used Date Smoking Tobacco: Never Assessed Comments Unknown Sex and Gender Information Value Date Recorded Sex Assigned at Not on file Legal Sex Female 4:28 PM CDT Gender Identity Not on file Sexual Orientation Not on file documented as of this encounter Miscellaneous Notes * Cerner Conversion Note - Jessenia ProviderMD - 05/15/2020 12:28 PM ADJUNCT NURSING FACULTY ED Assessment Entered On: 05/15/2020 15:14 EST Performed On: 05/15/2020 15:11 EST by Caroline Carmona, APPLICATION PERFORMANCE ENGINEER Quick Look Assessment Level of Consciousness : Alert, Awake Affect/Behavior : Appropriate, Calm, Cooperative Orientation : Oriented x 4 Skin Description : Normal for ethnicity Caroline Carmona RN - 05/15/2020 15:11 EST ED General-Functional Assess Preferred Communication Mode : Verbal Communication Barrier : None Primary Language : Cymraes Any Spiritual/Cultural Needs or Requests : No [...] Updated: 05/03/2020 15:35:18 EST by Jyoti Frazier, Elevr) Alcohol: Alcohol Use History No. Alcohol Use [...] 05/15/2020 15:11 EST Electronically signed by Jannette [facility] Conversion Manager Recruitment Cerner at 08/31/2022 5:00 PM CDT documented in this encounter Plan of Treatment Not on file documented as of this encounter Visit Diagnoses Not on filedocumented in this encounter Care Teams Grain Commodity Manager Relationship Specialty Start Date End Date Alan Beyer MD [address] [place] [address] PCP - General Family Medicine 06/08/23 documented as of this encounter
--- OUTSIDE RECORDS SUMMARY | 2024-11-27 14:47 | XMS_ITS | Encounter Summary ---
Author Organization [employer] ([place], [place], [place], [place]) Address [address] [place] [address] Care Team Providers Care Garment Steamer Name Role Phone Alan Beyer MD Primary Care Provider [phone] Encounter Details Date Type Department Care Team (Late st Contact Info) Description 07/13/2021 Transcribed Document [facility] Preadmission Testing [address] [place] [address] Jyoti Bird, DIESEL TECHNICIAN [address] [place], [place] [id number] Social History Tobacco Use Types Packs/Day Years [...] Date Manny rded Speak language other than Gabonese at home Not on file 05/23/2023 Want [...] Bird APRN - 07/13/2021 4:58 PM EST [address] [address] Visit Date/Time: 07/13/2021 15:58:28 CHARLINE BOND The above patient was seen in the hospital today and needs to be excused from work/school until Return to Work/School Date: 07/16/2021 documented in this encounter Plan of Treatment Not on file documented as of this encounter Visit Diagnoses Not on filedocumented in this encounter Care Teams Garment Steamer Relationship Specialty Start Date End Date Alan Beyer MD [address] [place] [address] PCP - General Family Medicine 06/08/23 documented as of this encounter
--- OUTSIDE RECORDS SUMMARY | 2024-11-27 14:47 | XMS_ITS | Encounter Summary ---
Author Organization [employer] ([place], [place], [place], [place]) Address [address] [place] [address] Care Team Providers Care Typewriter Ribbon Winder Name Role Phone Alan Beyer MD Primary Care Provider [phone] Encounter Details Date Type Department Care Team (Late st Contact Info) Description 07/13/2021 Transcribed Document [facility] [place] [address] [place] [address] ProviderJessenia MD [address] [place] [address] Social History Tobacco Use Types [...] Conversion Note - Historical Provider, - 07/13/2021 11:00 AM EIGHT ARM OPERATOR Patient: REFUGIO BOND Age: 40 Years Sex: Female : 1980 Chief Complaint Pt co generalized chest pain that is shooting across chest that began x 2 hours ago while laying down in bed. pt is calm alert skinpwd. Pt given 324mg aspirin, 4 mg zofran, and x 1 SL Nitro with some relief. By EMS Primary Care Provider MICHAEL HOSKINS MD-[facility] History of Present Illness Ms. Bond [...] history of significant heart disease with early [place] in a parent and a sibling. She [...] Lymph # 3.38 K/uL 07/13/2021 01:58 EST [place] % 5.6 % 07/13/2021 01:58 EST [place] # 0.41 K/uL 07/13/2021 01:58 EST Eos [...] Appearance CLEAR2 07/13/2021 02:00 EST Urine Specific [place] *1.002 07/13/2021 02:00 EST Urine pH Dipstick [...] AMY 07/13/2021 06:03 EST Electronically signed by Interface, [facility] Conversion Early Morning Cerner at 08/31/2022 5:25 PM CDT documented in this encounter Plan of Treatment Not on file documented as of this encounter Visit Diagnoses Not on filedocumented in this encounter Care Teams Typewriter Ribbon Winder Relationship Specialty Start Date End Date Alan Beyer MD [address] [place], [place] [id number] PCP - General Family Medicine 06/08/23 documented as of this encounter
--- OUTSIDE RECORDS SUMMARY | 2024-11-27 14:47 | XMS_ITS | Encounter Summary ---
Author Organization [employer] ([place], [place], [place], [place]) Address [address] [place] [address] Care Team Providers Care Full Stack Net Developer Name Role Phone Alan Beyer MD Primary Care Provider [phone] Encounter Details Date Type Department Care Team (Late st Contact Info) Description 05/15/2020 Transcribed Document [facility] [place] [facility] [place] [address] ProviderJessenia MD [address] [place], [place] [id number] Social History Tobacco Use Types Packs/Day Years Used Date Smoking Tobacco: Never Assessed Comments Unknown Sex and Gender Information Value Date Recorded Sex Assigned at Not on file Legal Sex Female 4:28 PM CDT Gender Identity Not on file Sexual Orientation Not on file documented as of this encounter Miscellaneous Notes * Cerner Conversion Note - Jessenia ProviderMD - 05/15/2020 12:28 PM POUCH MAKING MACHINE OPERATOR Broset Violence Assessment Entered On: 05/15/2020 13:41 EST Performed On: 05/15/2020 13:41 EST by Caroline Carmona RN Broset Violence Assessment Broset Violence Checklist of Symptoms : None Broset Violence Symptoms Subtotal : 0 Broset Violence Symptoms Indicator : Low risk (0) Broset Interventions : [place] precautions for safety used Caroline Carmona RN - 05/15/2020 13:41 EST documented in this encounter Plan of Treatment Not on file documented as of this encounter Visit Diagnoses Not on filedocumented in this encounter Care Teams Full Stack Net Developer Relationship Specialty Start Date End Date Alan Beyer MD [address] [place], [place] [id number] PCP - General Family Medicine 06/08/23 documented as of this encounter
--- OUTSIDE RECORDS SUMMARY | 2024-11-27 14:47 | XMS_ITS | Encounter Summary ---
Author Organization [employer] ([place], [place], [place], [place]) Address [address] [place] [address] Care Team Providers Care Penology Teacher Name Role Phone Alan Beyer MD Primary Care Provider [phone] Encounter Details Date Type Department Care Team (Late st Contact Info) Description 10/20/2018 Transcribed Document [facility] Family Medicine [facility] [address] ProviderJessenia MD [address] [place] [address] Social History Tobacco Use Types Packs/Day [...] Alvarez MD - 10/20/2018 10:28 PM CDT [place] [id number] CHARLINE BOND :1980 Visit Time:10/20/2018 Your Visit Summary Your Care Team Admitting Physician - JAVI TRUJILLO MD-EMR Attending Physician - JAVI TRUJILLO MD-EMR Primary Care Physician - JORGE LUIS BUENO NP-[facility] Referring Physician - PRIYA, SELF REFERRED Your Diagnosis Dizziness Hx of diarrhea, Hx of nausea and vomiting Medical screening exam Patient Portal Reminder: Be sure to sign up for the [facility] patient portal, which gives you 04/12 access to your medical information ??? including these discharge instructions ??? using your computer, smartphone, or tablet. Just go to [email or web address] to get started. Questions? Call . You [...] please contact the Patient Resource Center at [phone]. Follow Up with JORGE LUIS BUENO When Within 2 to 3 days Where: [address] [place] [address] Business (1) Allergies Bactrim acetaminophen-oxyCODONE clindamycin Toradol [...] tablet to dissolve on tongue Pickup at [facility]/pharmacy #[id number] conjugated estrogens (Premarin) Oral Every Day fexofenadine [...] for nausea/vomiting Duration: 3 Day(s) Pickup at [facility]/pharmacy #[id number] promethazine (promethazine 25 mg oral tablet) 1 Tablet(s) Oral Every 4 Hours as needed for as needed for nausea/vomiting valACYclovir (Valtrex) Oral vitamin E 100 International Units Oral Every Day Pharmacy Information [facility]/pharmacy #[id number]: [address] [place], [place] [id number] [phone] The home medications listed are only as [...] range between ( 1.0 and 7.0 ) [place] #: 0.33 K/uL -- Normal range between ( 0.24 and 0.82 ) Eos #: 0.05 K/uL -- Normal range between ( 0.04 and 0.54 ) [place] %: 4.8 % -- Normal range between [...] ) Urine Bilirubin Dipstick: Negative Urine Specific Mode: 1.008 -- Normal range between ( 1.005 [...] ? Low-calorie sports drinks. ??? Eat bland, dzvo-xi-ccsryy foods in small amounts as you are able. These foods include: ? Bananas. ? Applesauce. ? Rice. ? Low-fat (lean) meats. ? Motley. ? Crackers. ??? Avoid drinking fluids that have a lot of sugar or caffeine in them. ??? Avoid alcohol. ??? Avoid spicy or fatty foods. General instructions ??? Drink enough fluid to keep your pee (urine) clear or pale yellow. ??? Wash your hands often. If you cannot use soap and water, use hand service captain. ??? Make sure that all people in your home wash their hands well and often. ??? Take ghjl-uxm-fojrolf and prescription medicines only as told by [...] 10/16/2008 Document Revised: 01/02/2018 Document Reviewed: 01/04/2016 [employer] Interactive Patient Education ?? 2019 silkfred. Nausea and Vomiting, Adult Feeling sick to [...] ? Low-calorie sports drinks. ??? Eat bland, hyri-sa-hujspw foods in small amounts as you are able, such as: ? Bananas. ? Applesauce. ? Rice. ? Low-fat (lean) meats. ? Motley. ? Crackers. ??? Avoid fluids that have a lot of sugar or caffeine in them. ??? Avoid alcohol. ??? Avoid spicy or fatty foods. General instructions ??? Drink enough fluid to keep your pee (urine) clear or pale yellow. ??? Wash your hands often. If you cannot use soap and water, use hand service captain. ??? Make sure that all people in your home wash their hands well and often. ??? Take cxna-kbn-pdbkihm and prescription medicines only as told by [...] 10/16/2008 Document Revised: 11/17/2016 Document Reviewed: 01/04/2016 SparkupReader Interactive Patient Education ?? 2019 silkfred. Emergency Awareness and Preventative Care STROKE is [...] Assistance with quitting is available by contacting 4-199-CPUO-NOW. This is a free resource providing counseling, [...] was given the opportunity to ask questions. Patient/Analog Ic Design Engineer Name: Patient/Analog Ic Design Engineer Signature: Relationship to Patient: Clinician/Hospital Analog Ic Design Engineer Signature: Please Provide a Telephone Number Where You Can Be Reached: Is it Permissible To Leave a Message? Date: documented in this encounter Plan of Treatment Not on file documented as of this encounter Visit Diagnoses Not on filedocumented in this encounter Care Teams Penology Teacher Relationship Specialty Start Date End Date Alan Beyer MD [address] [place] [address] PCP - General Family Medicine 06/08/23 documented as of this encounter
--- OUTSIDE RECORDS SUMMARY | 2024-11-27 14:47 | XMS_ITS | Encounter Summary ---
Author Organization [employer] ([place], [place], [place], [place]) Address [address] [place] [address] Care Team Providers Care Booster Pump Operator Name Role Phone Alan Beyer MD Primary Care Provider [phone] Encounter Details Date Type Department Care Team (Late st Contact Info) Description 05/15/2020 Transcribed Document [facility] Family Medicine [facility] [place] [address] ProviderJessenia MD [address] [place], [place] [id number] Social History Tobacco Use Types Packs/Day Years Used Date Smoking Tobacco: Never Assessed Comments Unknown Sex and Gender Information Value Date Recorded Sex Assigned at Not on file Legal Sex Female 4:28 PM CDT Gender Identity Not on file Sexual Orientation Not on file documented as of this encounter Miscellaneous Notes * Cerner Conversion Note - Jessenia ProviderMD - 05/15/2020 12:28 PM GEOTECHNICAL ENGINEER [place] Suicide Severity Rating Scale (C-SSRS) Entered On: 05/15/2020 13:41 EST Performed On: 05/15/2020 13:41 EST by Caroline Carmona RN [place] Suicide Severity Rating Scale (C-SSRS) CSSRS Past Month Wish to be : No CSSRS Past Month Suicidal Thoughts : No CSSRS Lifetime Suicide Behavior : No Suicide Severity Rating Score : 0 Suicide Severity Rating : No Additional Care Required at this time Caroline Carmona RN - 05/15/2020 13:41 EST Electronically signed by Jannette [facility] Conversion Solid Waste Facility Supervisor Cerner at 08/31/2022 5:19 PM CDT documented in this encounter Plan of Treatment Not on file documented as of this encounter Visit Diagnoses Not on filedocumented in this encounter Care Teams Booster Pump Operator Relationship Specialty Start Date End Date Alan Beyer MD [address] [place] [address] PCP - General Family Medicine 06/08/23 documented as of this encounter
--- OUTSIDE RECORDS SUMMARY | 2024-11-27 14:47 | XMS_ITS | Encounter Summary ---
Author Organization [employer] ([place], [place], [place], [place]) Address [address] [place] [address] Care Team Providers Care E Commerce Specialist Name Role Phone Alan Beyer MD Primary Care Provider [phone] Encounter Details Date Type Department Care Team (Late st Contact Info) Description 10/20/2018 Transcribed Document [facility] [place] [facility] [place] [address] ProviderJessenia MD [address] [place], [place] [address] Social History Tobacco Use Types Packs/Day Years Used Date Smoking Tobacco: Never Assessed Comments Unknown Sex and Gender Information Value Date Recorded Sex Assigned at Not on file Legal Sex Female 4:28 PM CDT Gender Identity Not on file Sexual Orientation Not on file documented as of this encounter Miscellaneous Notes * Cerner Conversion Note - Jessenia ProviderMD - 10/20/2018 4:55 PM CDT ED Assessment [...] Communication Barrier : None Primary Language : Rwandan Any Spiritual/Cultural Needs or Requests : No [...] 10/20/2018 19:05 EDT Electronically signed by Jannette [facility] Conversion Lead Programmer Analyst Cerner at 08/31/2022 5:09 PM CDT documented in this encounter Plan of Treatment Not on file documented as of this encounter Visit Diagnoses Not on filedocumented in this encounter Care Teams E Commerce Specialist Relationship Specialty Start Date End Date Alan Beyer MD [address] [place] [address] PCP - General Family Medicine 06/08/23 documented as of this encounter
--- OUTSIDE RECORDS SUMMARY | 2024-11-27 14:47 | XMS_ITS | Encounter Summary ---
Author Organization [employer] ([place], [place], [place], [place]) Address [address] [place] [address] Care Team Providers Care Geothermal Heat Pump Machinist Name Role Phone Alan Beyer MD Primary Care Provider [phone] Encounter Details Date Type Department Care Team (Late st Contact Info) Description 07/13/2021 Transcribed Document [facility] [place] [address] [place] [address] ProviderJessenia MD [address] [place] [address] Social History Tobacco Use Types [...] Date Manny rded Speak language other than Swedish at home Not on file 05/23/2023 Want [...] Conversion Note - Historical Provider, - 07/13/2021 10:00 AM AUTOMATIC TRIMMING SEWER ED Assessment Entered On: 07/13/2021 14:01 EST [...] 14:00 EST Respiratory Respiratory Assessment WDL : WDMeka Langston RN-PATIENT CARE BEDSIDE NON-EXEMPT - 07/13/2021 14:00 EST Gastrointestinal ED Gastrointestinal Assessment WDL : WDL with exceptions Gastrointestinal Symptoms : Nausea Meka Louie RN-PATIENT CARE BEDSIDE NON-EXEMPT - 07/13/2021 14:00 EST Genitourinary Assessment, ED Genitourinary Assessment WDL : WDMeka Langston RN-PATIENT CARE BEDSIDE NON-EXEMPT - 07/13/2021 14:00 EST Musculoskeletal Musculoskeletal Assessment WDL : Meka Hollins RN-PATIENT CARE BEDSIDE NON-EXEMPT - 07/13/2021 14:00 EST Integumentary Assessment Integumentary Assessment WDL : Meka Hollins RN-PATIENT CARE BEDSIDE NON-EXEMPT - 07/13/2021 14:00 EST Neurologic ASMT, ED Neurologic Assessment WDL : Meka Hollins RN-PATIENT CARE BEDSIDE NON-EXEMPT - 07/13/2021 14:00 EST Electronically signed by [facility] Conversion Plastic Cablemaking Machine Operator Cerner at 08/31/2022 5:12 PM CDT documented in this encounter Plan of Treatment Not on file documented as of this encounter Visit Diagnoses Not on filedocumented in this encounter Care Teams Geothermal Heat Pump Machinist Relationship Specialty Start Date End Date Alan Beyer MD [address] [place] [address] PCP - General Family Medicine 06/08/23 documented as of this encounter
--- OUTSIDE RECORDS SUMMARY | 2024-11-27 14:47 | XMS_ITS | Encounter Summary ---
Author Organization [employer] ([place], [place], [place], [place]) Address [address] [place] [address] Care Team Providers Care Driver Service Technician Name Role Phone Alan Beyer MD Primary Care Provider [phone] Encounter Details Date Type Department Care Team (Late st Contact Info) Description 07/13/2021 Transcribed Document [facility] Family Medicine [address] [place] [address] ProviderJessenia MD [address] [place] [address] Social History Tobacco Use Types Packs/Day Years Used Date Smoking Tobacco: Never Assessed Food Insecurity Answer Date Recorded Food run out past 12 months Not on file 05/14 Food did not last past 12 months Not on file 05/23/2023 Employment Answer Date Recorded Help finding and keeping a job Not on file 0 05/23/2023 Family and Community Support Answer Ihmanshu e Recorded Help with Day to Day Activities Not on file 05/23/2023 Feeling Lonely or Isolated Not on file 05/23 Educational Attainment Answer Date Manny rded Speak language other than Spanish at home Not on file 05/23/2023 Want [...] - Historical Provider, - 07/13/2021 1:46 AM CHIP MIXER ED Triage Entered On: 07/13/2021 1:55 EST Performed On: 07/13/2021 1:52 EST by OBEY MONROE SENIOR DATA MINING ANALYST Triage Across the Room Chief Complaint : Pt co generalized chest pain that is shooting across chest that began x 2 hours ago while laying down in bed. pt is calm alert skinpwd. Pt given 324mg aspirin, 4 mg zofran, and x 1 SL Nitro with some relief. By EMS Triage Date/Time : 07/13/2021 1:52 EST OBEY MONROE RN - 07/13/2021 1:52 EST DCP GENERIC CODE Tracking Acuity : 2 - Emergent Tracking Group : [facility] ED East OBEY MONROE RN - 07/13/2021 1:52 EST Mode of Arrival : Stretcher Transported to ED by : Ambulance/ALS EMS Service : [facility] To Room Via : Stretcher Accompanied By [...] trying cefazolin 05/01 ; Created By: JAME ZUNIGA, PharmD; Reaction Status: Active ; Category: Drug ; Substance: penicillin ; Type: Allergy ; Updated By: JAME ZUNIGA, PharmD; Reviewed Date: 05/30/2021 19:37 EST tetanus [...] 07/13/2021 01:55:14 EST) Problems(Active) Anxiety (SNOMED CT :22656084 ) Name of Problem: Anxiety ; Recorder: ERICKA ISSA RN; Confirmation: Confirmed ; Classification: Medical ; Code: [id number] ; Contributor System: Haul Zing. ; Last Updated: 07/26/2015 22:28 EDT ; Life Cycle Date: 07/26/2015 ; Life Cycle Status: Active ; Vocabulary: SNOMED CT Endometriosis, vagina (SNOMED CT :15449043 ) Name of Problem: Endometriosis, vagina ; Recorder: Breanna Ivey RN; Confirmation: Confirmed ; Classification: Medical ; Code: 10260937 ; Contributor System: PowerChart ; Last Updated: 05/24/2018 10:54 EST ; Life Cycle Date: 05/24/2018 ; Life Cycle Status: Active ; Vocabulary: SNOMED CT Kidney stones (SNOMED CT :689326296 ) Name of Problem: Kidney stones ; Recorder: KAYY ANDREW; Confirmation: Confirmed ; Classification: Medical ; Code: 510471678 ; Contributor System: PowerChart ; Last Updated: 06/06/2016 9:30 EST ; Life Cycle Date: 06/06/2016 ; Life Cycle Status: Active ; Vocabulary: SNOMED CT Migraine (SNOMED CT :56546207 ) Name of Problem: Migraine ; Recorder: ERICKA ISSA RN; Confirmation: Confirmed ; Classification: Medical ; Code: 11465922 ; Contributor System: IEMOChart ; Last Updated: 07/26/2015 22:28 EDT ; Life Cycle Date: 07/26/2015 ; Life Cycle Status: Active ; Vocabulary: SNOMED CT S/P hysterectomy (SNOMED CT :499590909 ) Name of Problem: S/P hysterectomy ; Recorder: LEONID CASTANEDA RN; Confirmation: Confirmed ; Classification: Medical ; Code: [id number] ; Contributor System: IEMOChart ; Last Updated: 11/06/2019 20:08 EDT ; Life Cycle Date: 11/06/2019 ; Life Cycle Status: Active ; Vocabulary: SNOMED CT Shoulder pain, left (SNOMED CT :33608559 ) Name of Problem: Shoulder pain, left ; Recorder: Breanna Ivey RN; Confirmation: Confirmed ; Classification: Medical ; Code: 63757126 ; Contributor System: Haul Zing. ; Last Updated: 05/24/2018 10:53 EST ; Life Cycle Date: 05/24/2018 ; Life Cycle Status: Active ; Vocabulary: SNOMED CT Diagnoses(Active) Chest pain Date: 07/13/2021 ; Diagnosis Type: Reason For Visit ; Confirmation: Complaint of ; Clinical Dx: Chest pain ; Classification: Medical ; Clinical Service: Emergency medicine ; Code: PNED ; Probability: 0 ; Diagnosis Code: [id number] ED Height and Weight Height Source : Measured Height Entry Format : [place] Height, Feet : 5 ft(Converted to: 152 cm, 60 Inch) Height, Inches : 5 Inch(Converted to: 0 ft 5 Inch, 12.70 cm) Clinical Height : 165.1 cm Weight Source, ED : Critical estimated dosing weight Weight Entry Format : [place] Weight, Pounds : 168 lb Clinical Dosing Weight : 76.36 kg Body Surface Area (BSA) : 1.84 m2 Body Mass Index : 28 kg/m2 (HI) Temple Body Weight (IBW) : 56.59 kg OBEY [...] on filedocumented in this encounter Care Teams Driver Service Technician Relationship Specialty Start Date End Date Alan Beyer MD [address] [place] [address] PCP - General Family Medicine 06/08/23 documented as of this encounter
--- OUTSIDE RECORDS SUMMARY | 2024-11-27 14:47 | XMS_ITS | Encounter Summary ---
Author Organization [employer] ([place], [place], [place], [place]) Address [address] [place] [address] Care Team Providers Care System Integration Engineer Name Role Phone Alan Beyer MD Primary Care Provider [phone] Encounter Details Date Type Department Care Team (Late st Contact Info) Description 05/15/2020 Transcribed Document [facility] [place] Family Medicine [facility] [place] [address] ProviderJessenia MD [address] [place], [place] [address] Social History Tobacco Use Types Packs/Day Years Used Date Smoking Tobacco: Never Assessed Comments Unknown Sex and Gender Information Value Date Recorded Sex Assigned at Not on file Legal Sex Female 4:28 PM CDT Gender Identity Not on file Sexual Orientation Not on file documented as of this encounter Miscellaneous Notes * Cerner Conversion Note - Jessenia ProviderMD - 05/15/2020 4:03 PM TOOLMAKER ED Discharge Entered On: 05/15/2020 16:03 EST [...] on filedocumented in this encounter Care Teams System Integration Engineer Relationship Specialty Start Date End Date Alan Beyer MD [address] [place] [address] PCP - General Family Medicine 06/08/23 documented as of this encounter
--- OUTSIDE RECORDS SUMMARY | 2024-11-27 14:47 | XMS_ITS | Encounter Summary ---
Author Organization [employer] ([place], [place], [place], [place]) Address [address] [place] [address] Care Team Providers Care Senior Energy Consultant Name Role Phone Alan Beyer MD Primary Care Provider [phone] Encounter Details Date Type Department Care Team (Late st Contact Info) Description 07/04/2018 Transcribed Document [facility] [place] Family [place] [facility] [place] [address] ProviderJessenia MD [address] [place], [place] [id number] Social History Tobacco Use Types Packs/Day Years Used Date Smoking Tobacco: Never Assessed Comments Unknown Sex and Gender Information Value Date Recorded Sex Assigned at Not on file Legal Sex Female 4:28 PM CDT Gender Identity Not on file Sexual Orientation Not on file documented as of this encounter Miscellaneous Notes * Cerner Conversion Note - Jessenia ProviderMD - 07/04/2018 4:15 PM CASHIER WRAPPER [address] [place] [address] Patient Information Name: RFEUGIO BOND Age: 37 Years Date of : 1980 Arrival Time: 07/04/2018 11:09:00 Diagnosis Abdominal pain; Vascular calcification Primary Care Physician: EVELINE CAMPBELL NP-CLAUDIO Provider Information Primary Provider: GALILEA HANNAH PA Secondary Provider: RIANA REFUGIO DENIZ has been given the following list of patient education materials, prescriptions and follow-up instructions: Follow-up Instructions: With: Address: When: YOU NEED TO STOP SMOKIING YOU HAVE VASCULAR CALCIFICATION IN YOUR AORTA BEYOND WHAT IS NORMAL FOR YOUR STATED AGE. GET YOUR CHOLESTEROL CHECKED EDILBERTO PUCKETT APPT WITH DR BRANCH TOMORROW Within 2 to 3 days With: Address: When: DORIS BRANCH [address] [facility], [address] [place], [place] [id number] Business (1) Within 2 to 3 days With: Address: When: Patient Resource Center Within As needed Comments: Patient has a primary care physician with Eveline Campbell. For assistance in the future with finding a new primary care physician please contact the Patient Resource Center at [phone]. With: Address: When: EVELINE CAMPBELL [address], [address] [place] [address] Business (1) Within 2 to [...] Follow these instructions at home: ??? Take yigb-jhc-uawbaut and prescription medicines only as told by [...] 10/16/2008 Document Revised: 11/17/2016 Document Reviewed: 10/11/2016 [employer] Interactive Patient Education ? 2017 Punctil. Allergies: fentaNYL; acetaminophen-oxyCODONE; Toradol; Bactrim; escitalopram; lidocaine [...] range between ( 1.0 and 7.0 ) [place] #: 0.42 K/uL -- Normal range between ( 0.24 and 0.82 ) Eos #: 0.12 K/uL -- Normal range between ( 0.04 and 0.54 ) [place] %: 4.9 % -- Normal range between [...] ) Urine Bilirubin Dipstick: Negative Urine Specific [place]: 1.002 -- Normal range between ( 1.005 [...] placed. This statement is to verify that REFUG[facility]OND [facility]07/04/2018 16:15:21. This is [...] along the way. As a healthcare provider, [facility] recommends that you stop smoking. Assistance with quitting is available by contacting 7-433-NJFT-NOW. This is a free resource providing counseling, [...] Electronic Communications Privacy Act 18 U.S.C. ???Sections 9908-2439,?? and contain information intended for the specified [...] Be sure to sign up for the [facility] patient portal, which gives you 04/12 access to your medical information ??? including these discharge instructions ??? using your computer, smartphone, or tablet. Just go to [employer] to get started. Questions? Call . Acknowledgment [...] Instructions: Emergency Physician: Electronically signed by Jannette, [facility] Conversion Manager Scientific Cerner at 08/31/2022 5:18 PM CDT documented in this encounter Plan of Treatment Not on file documented as of this encounter Visit Diagnoses Not on filedocumented in this encounter Care Teams Senior Energy Consultant Relationship Specialty Start Date End Date Alan Beyer MD [address] [place] [address] PCP - General Family Medicine 06/08/23 documented as of this encounter
--- OUTSIDE RECORDS SUMMARY | 2024-11-27 14:47 | XMS_ITS | Encounter Summary ---
Author Organization [employer] ([place], [place], [place], [place]) Address [address] [place] [address] Care Team Providers Care Chute Man Name Role Phone Alan Beyer MD Primary Care Provider Encounter Details Date Type Department Care Team (Late st Contact Info) Description 07/04/2018 Transcribed Document [facility] [place] [address] [place] [address] ProviderJessenia MD [address] [place], [place] [address] Social History Tobacco Use Types Packs/Day Years Used Date Smoking Tobacco: Never Assessed Comments Unknown Sex and Gender Information Value Date Recorded Sex Assigned at Not on file Legal Sex Female 4:28 PM CDT Gender Identity Not on file Sexual Orientation Not on file documented as of this encounter Miscellaneous Notes * Cerner Conversion Note - Jessenia ProviderMD - 07/04/2018 4:11 PM GREEN TIRE INSPECTOR ED Discharge Entered On: 07/04/2018 16:11 EST [...] SHAMA CASTILLO Rn - 07/04/2018 16:11 EST Electronically signed by [facility] Conversion Motor Vehicle Light Assembler Cerner at 08/31/2022 5:17 PM CDT documented in this encounter Plan of Treatment Not on file documented as of this encounter Visit Diagnoses Not on filedocumented in this encounter Care Teams Chute Man Relationship Specialty Start Date End Date Alan Beyer MD [address] [place] [address] PCP - General Family Medicine 06/08/23 documented as of this encounter
--- OUTSIDE RECORDS SUMMARY | 2024-11-27 14:47 | XMS_ITS | Encounter Summary ---
Author Organization [employer] ([place], [place], [place], [place]) Address [address] [place] [address] Care Team Providers Care Physical Chemistry Teacher Name Role Phone Alan Beyer MD Primary Care Provider [phone] Encounter Details Date Type Department Care Team (Late st Contact Info) Description 05/03/2020 Transcribed Document [facility] [place] [address] [place] [address] ProviderJessenia MD [address] [place] [address] Social History Tobacco Use Types [...] - Jessenia ProviderMD - 05/03/2020 2:55 PM TUBING OILER ED Triage Entered On: 05/03/2020 15:20 EST [...] - Non - Urgent Tracking Group : [facility] ED [facility] PASCUAL [place] - 05/03/2020 15:18 EST Mode [...] Herpes, Influenza, Mononucleosis Tuberculosis Symptoms : None PASCUAL [place] 05/03/2020 15:18 EST Vital Signs ED Temperature Source : Tympanic Temperature Mode : Fahrenheit Temperature, Fahrenheit : 97.7 Deg F Clinical Temperature, C : 36.5 Deg C Peripheral Pulse Rate : 84 bpm Respiratory Rate : 18 Breaths/Min Systolic Blood Pressure : 145 mmHg (HI) Diastolic Blood Pressure : 90 mmHg Oxygen Saturation : 99 % PASCUAL [place] - 05/03/2020 15:18 EST Allergy (As Of: 05/03/2020 [...] Type: Allergy ; Updated By: JAME ZUNIGA, Paige; Reviewed Date: 03/16/2020 15:13 EST tetanus immune [...] 05/03/2020 15:20:23 EST) Problems(Active) Anxiety (SNOMED CT :18009734 ) Name of Problem: Anxiety ; Recorder: ERICKA ISSA RN; Confirmation: Confirmed ; Classification: Medical ; Code: [id number] ; Contributor System: Enpirion ; Last Updated: 07/26/2015 22:28 EDT ; Life Cycle Date: 07/26/2015 ; Life Cycle Status: Active ; Vocabulary: SNOMED CT Endometriosis, vagina (SNOMED CT :62052792 ) Name of Problem: Endometriosis, vagina ; Recorder: Breanna Ivey RN; Confirmation: Confirmed ; Classification: Medical ; Code: [id number] ; Contributor System: PowerChart ; Last Updated: 05/24/2018 10:54 EST ; Life Cycle Date: 05/24/2018 ; Life Cycle Status: Active ; Vocabulary: SNOMED CT Kidney stones (SNOMED CT :028226088 ) Name of Problem: Kidney stones ; Recorder: KAYY ANDREW; Confirmation: Confirmed ; Classification: Medical ; Code: 432698808 ; Contributor System: PowerChart ; Last Updated: 06/06/2016 9:30 EST ; Life Cycle Date: 06/06/2016 ; Life Cycle Status: Active ; Vocabulary: SNOMED CT Migraine (SNOMED CT :06531130 ) Name of Problem: Migraine ; Recorder: ERICKA ISSA RN; Confirmation: Confirmed ; Classification: Medical ; Code: 32501631 ; Contributor System: Enpirion ; Last Updated: 07/26/2015 22:28 EDT ; Life Cycle Date: 07/26/2015 ; Life Cycle Status: Active ; Vocabulary: SNOMED CT S/P hysterectomy (SNOMED CT :306523967 ) Name of Problem: S/P hysterectomy ; Recorder: LOENID CASTANEDA RN; Confirmation: Confirmed ; Classification: Medical ; Code: 276383408 ; Contributor System: Enpirion ; Last Updated: 11/06/2019 20:08 EDT ; Life Cycle Date: 11/06/2019 ; Life Cycle Status: Active ; Vocabulary: SNOMED CT Shoulder pain, left (SNOMED CT :63308769 ) Name of Problem: Shoulder pain, left ; Recorder: Breanna Ivey RN; Confirmation: Confirmed ; Classification: Medical ; Code: 64485327 ; Contributor System: Enpirion ; Last Updated: 05/24/2018 10:53 EST ; Life Cycle Date: 05/24/2018 ; Life Cycle Status: Active ; Vocabulary: SNOMED CT Diagnoses(Active) Body aches Date: 05/03/2020 ; Diagnosis Type: Reason For Visit ; Confirmation: Complaint of ; Clinical Dx: Body aches ; Classification: Medical ; Clinical Service: Emergency medicine ; Code: PNED ; Probability: 0 ; Diagnosis Code: [id number] ED Height and Weight Height Source : Stated Height Entry Format : [place] Height, Feet : 5 ft(Converted to: 152 cm, 60 Inch) Height, Inches : 5 Inch(Converted to: 0 ft 5 Inch, 12.70 cm) Clinical Height : 165.1 cm Weight Source, ED : Critical estimated dosing weight Weight Entry Format : [place] Weight, Pounds : 160 lb Clinical Dosing Weight : 72.73 kg Body Surface Area (BSA) : 1.8 m2 Body Mass Index : 26.7 kg/m2 (HI) [place] Body Weight (IBW) : 56.59 kg RAINS, PASCUAL - 05/03/2020 15:18 EST Electronically signed by [facility], [facility] Conversion Worldwide Chief Creative Officer Cerner at 08/31/2022 5:21 PM CDT documented in this encounter Plan of Treatment Not on file documented as of this encounter Visit Diagnoses Not on filedocumented in this encounter Care Teams Physical Chemistry Teacher Relationship Specialty Start Date End Date Alan Beyer MD [address] [place] [address] PCP - General Family Medicine 06/08/23 documented as of this encounter
--- OUTSIDE RECORDS SUMMARY | 2024-11-27 14:47 | XMS_ITS | Encounter Summary ---
Author Organization [employer] ([place], [place], [place], [place]) Address [address] [place] [address] Care Team Providers Care Structural Steel Trades Worker Name Role Phone Alan Beyer MD Primary Care Provider [phone] Encounter Details Date Type Department Care Team (Late st Contact Info) Description 07/13/2021 Transcribed Document [facility] [place] [address] [place] [address] ProviderJessenia MD [address] [place] [address] Social History Tobacco Use Types [...] Conversion Note - Historical ProviderMD - 07/13/2021 4:27 PM LABOR CREW SUPERVISOR Nursing Discharge Summary Entered On: 07/13/2021 16:28 [...] 07/13/2021 16:27 EST Electronically signed by Jannette [facility] Conversion Director Of Medical Services Jordan at 08/31/2022 5:23 PM CDT documented in this encounter Plan of Treatment Not on file documented as of this encounter Visit Diagnoses Not on filedocumented in this encounter Care Teams Structural Steel Trades Worker Relationship Specialty Start Date End Date Alan Beyer MD [address] [place] [address] PCP - General Family Medicine 06/08/23 documented as of this encounter
--- OUTSIDE RECORDS SUMMARY | 2024-11-27 14:47 | XMS_ITS | Encounter Summary ---
Author Organization [employer] ([place], [place], [place], [place]) Address [address] [place] [address] Care Team Providers Care Bereavement Program Coordinator Name Role Phone Alan Beyer MD Primary Care Provider [phone] Encounter Details Date Type Department Care Team (Late st Contact Info) Description 05/03/2020 Transcribed Document [facility] [place] [address] [place] [address] ProviderJessenia MD [address] [place], [place] [address] Social History Tobacco Use Types Packs/Day Years Used Date Smoking Tobacco: Never Assessed Comments Unknown Sex and Gender Information Value Date Recorded Sex Assigned at Not on file Legal Sex Female 4:28 PM CDT Gender Identity Not on file Sexual Orientation Not on file documented as of this encounter Miscellaneous Notes * Cerner Conversion Note - Historical ProviderMD - 05/03/2020 4:50 PM SUPERVISOR MICROBIOLOGY TECHNOLOGISTS Electronically signed by [facility] Conversion Song Plugger Cerner at 08/31/2022 5:16 PM CDT documented in this encounter Plan of Treatment Not on file documented as of this encounter Visit Diagnoses Not on filedocumented in this encounter Care Teams Bereavement Program Coordinator Relationship Specialty Start Date End Date Alan Beyer MD [address] [place] [address] PCP - General Family Medicine 06/08/23 documented as of this encounter
--- OUTSIDE RECORDS SUMMARY | 2024-11-27 14:47 | XMS_ITS | Encounter Summary ---
Author Organization [employer] ([place], [place], [place], [place]) Address [address] [place] [address] Care Team Providers Care Customer Support Advisor Name Role Phone Alan Beyer MD Primary Care Provider [phone] Encounter Details Date Type Department Care Team (Late st Contact Info) Description 07/13/2021 Transcribed Document [facility] [place] [address] [place] [address] ProviderJessenia MD [address] [place] [address] Social History Tobacco Use Types [...] Date Manny rded Speak language other than Brazilian at home Not on file 05/23/2023 Want [...] - Historical Provider, - 07/13/2021 1:46 AM TOOL GRINDING TECHNICIAN ED Assessment Entered On: 07/13/2021 2:06 EST Performed On: 07/13/2021 2:05 EST by Kay Bernal HAIR MACHINE OPERATOR Quick Look Assessment Level of Consciousness : Alert, Awake Affect/Behavior : Appropriate, Calm, Cooperative Orientation : Oriented x 4 Skin Temperature : Warm Skin Description : Normal for ethnicity, Gearhart Kay Bernal RN - 07/13/2021 2:05 EST ED General-Functional Assess Information Obtained From : Patient Preferred Communication Mode : Verbal Communication Barrier : None Primary Language : Brazilian Any Spiritual/Cultural Needs or Requests : No [...] Updated: 05/03/2020 15:34:43 EST by Jyoti Frazier, [place]) 10 or more cigarettes (1/2 pack [...] 07/13/2021 2:05 EST Electronically signed by Jannette [facility] Conversion Culinary Chef Cerner at 08/31/2022 5:12 PM CDT documented in this encounter Plan of Treatment Not on file documented as of this encounter Visit Diagnoses Not on filedocumented in this encounter Care Teams Customer Support Advisor Relationship Specialty Start Date End Date Alan Beyer MD [address] [place] [address] PCP - General Family Medicine 06/08/23 documented as of this encounter
--- OUTSIDE RECORDS SUMMARY | 2024-11-27 14:47 | XMS_ITS | Encounter Summary ---
Author Organization [employer] ([place], [place], [place], [place]) Address [address] [place] [address] Care Team Providers Care Foreign Food Specialty Cook Name Role Phone Alan Beyer MD Primary Care Provider Encounter Details Date Type Department Care Team (Late st Contact Info) Description 05/15/2020 Transcribed Document [facility] [place] [facility] [place] [address] ProviderJessenia MD [address] [place] [address] Social History Tobacco Use Types Packs/Day Years Used Date Smoking Tobacco: Never Assessed Comments Unknown Sex and Gender Information Value Date Recorded Sex Assigned at Not on file Legal Sex Female 4:28 PM CDT Gender Identity Not on file Sexual Orientation Not on file documented as of this encounter Miscellaneous Notes * Cerner Conversion Note - Jessenia ProviderMD - 05/15/2020 3:58 PM KILN DRAWER [place] [id number] CHARLINE BOND :1980 Visit Time:05/15/2020 Your Visit [...] a primary care provider the patient resource soil scientist can assist you with establishing care and scheduling follow-up. The Patient Resource Manager Of Exhibitions And Collections can be contacted at . Follow Up [...] range between ( 1.0 and 7.0 ) [place] #: 0.40 K/uL -- Normal range between ( 0.24 and 0.82 ) [place] #: 0.02 K/uL -- Normal range between ( 0.04 and 0.54 ) [place] %: 13.6 % -- Normal range between [...] Medicines to relieve symptoms. These can include atcx-ydf-lsdfjmn medicine for pain and fever, medicines for [...] these instructions at home: Medicines ??? Take boeq-wzy-xkcigyt and prescription medicines only as told by [...] and water are not available, use hand pharmacy salesperson. ??? Avoid close contact with friends and [...] 09/08/2016 Document Revised: 04/12/2018 Document Reviewed: 09/08/2016 [employer] Patient Education ?? 2020 [employer]. COVID-19: How to Protect Yourself and Others Know how it spreads ??? There is currently no vaccine to prevent coronavirus disease 2019 (COVID-19). ??? The best way to prevent illness is to avoid being exposed to this virus. ??? The virus is thought to spread mainly from vxijte-hw-kqtrgu. ? Between people who are in close [...] are not readily available, use a hand pharmacy salesperson that contains at least 60% alcohol. Cover [...] are at higher risk of getting very sick.https://www.cdc.gov/coronavirus/2019-ncov/cvxz-isxhr-mnpssqzrowh/people-a n-xorfit-firh.html Cover your mouth and nose with a [...] available, clean your hands with a hand pharmacy salesperson that contains at least 60% alcohol. Clean and disinfect ??? Clean AND disinfect frequently touched surfaces daily. This includes tables, doorknobs, light switches, countertops, handles, desks, phones, keyboards, toilets, faucets, and sinks. https://www.cdc.gov/coronavirus/2019-ncov/qtogvng-zcydtey-xiyk/disinfecting-yo ur-home.html ??? If surfaces are dirty, clean them: Use detergent or soap and water prior to disinfection. cdc.gov/coronavirus 08/23/2019 This information is not intended to replace advice given to you by your health care provider. Make sure you discuss any questions you have with your health care provider. Document Released: 08/26/2019 Document Revised: 08/29/2019 Document Reviewed: 08/26/2019 [employer] Patient Education ?? 2020 [employer]. COVID-19 Frequently Asked Questions COVID-19 (coronavirus disease) is an infection that is caused by a large family of viruses. Some viruses cause illness in people and others cause illness in animals like camels, cats, and bats. In some cases, the viruses that cause illness in animals can spread to humans. Where did the coronavirus come from? In April 2019, [place] told the World Health Organization (WHO) of several cases of lung disease (human respiratory illness). These cases were linked to an open seafood and livestock market in the city of [facility]. The link to the seafood and livestock [...] and virus naming World Health Organization (WHO): www.who.int/emergencies/diseases/ftgpz-rqsupucermk-6807/technical-guidance/nam olz-mak-jresgbmdgkp-disease-(covid-2019)-xri-kih-zzpai-tyhu-orgbxx-ij Who is at risk for complications from [...] relieve his or her symptoms by using rjre-veo-xvysptm medicines that treat sneezing, coughing, and runny [...] water are not available, use alcohol-based hand pharmacy salesperson. ??? Avoid touching your face, mouth, nose, [...] (CDC): www.cdc.gov/coronavirus/2019-ncov/travelers/index.html ??? World Health Organization (WHO): www.who.int/emergencies/diseases/ndnsf-xvimekufkcx-7663/travel-advice Know the risks and take action to [...] water are not available, use alcohol-based hand pharmacy salesperson. ??? Cough or sneeze into a tissue, [...] in hot, soapy water or use a clinical psychologist private practice. Air-dry your dishes. ??? Wash laundry in [...] Organization (WHO) ??? Information and news updates: www.who.int/emergencies/diseases/ykbpg-dmedrxzyvgj-6957 ??? Coronavirus health topic: www.who.int/health-topics/coronavirus ??? Questions and answers on COVID-19: www.who.int/news-room/q-a-detail/e-j-cvrbtbbudaicj ??? Global tracker: [employer].sprinklr.com [place] Academy [employer] Pediatrics (AAP) ??? Information for families: www.healthychildren.org/Yi/health-issues/conditions/chest-lungs/Pages/201 6-Azdia-Gzapfvajkib.aspx The coronavirus situation is changing rapidly. Check [...] 08/26/2019 Document Revised: 08/26/2019 Document Reviewed: 08/26/2019 [employer] Patient Education ?? 2020 [employer] Inc. COVID-19 COVID-19, also known as coronavirus [...] symptoms. This may include rest, fluids, and ewzs-mkx-ocprqlo medicines. Follow these instructions at home: Lifestyle [...] safe for you. General instructions ??? Take msjm-xfz-whqkcrt and prescription medicines only as told by [...] often. To identify high-risk areas, check the [facility] travel website: wwwnc.cdc.gov/travel/notices ??? If you [...] are not available, use an alcohol-based hand pharmacy salesperson. ? Avoid touching your mouth, face, eyes, [...] water are not available, use alcohol-based hand pharmacy salesperson. ??? Stay away from other members of [...] 06/05/2019 Document Revised: 08/26/2019 Document Reviewed: 06/05/2019 [employer] Patient Education ?? 2020 [employer] Inc. Emergency Awareness and Preventative Care STROKE [...] Assistance with quitting is available by contacting 7-888-EKIM-NOW. This is a free resource providing counseling, [...] was given the opportunity to ask questions. Patient/Human Resources Receptionist Name: Patient/Human Resources Receptionist Signature: Relationship to Patient: Clinician/Hospital Human Resources Receptionist Signature: Please Provide a Telephone Number Where You Can Be Reached: Is it Permissible To Leave a Message? Date: documented in this encounter Plan of Treatment Not on file documented as of this encounter Visit Diagnoses Not on filedocumented in this encounter Care Teams Foreign Food Specialty Cook Relationship Specialty Start Date End Date Alan Beyer MD [address] [place] [address] PCP - General Family Medicine 06/08/23 documented as of this encounter
--- OUTSIDE RECORDS SUMMARY | 2024-11-27 14:47 | XMS_ITS | Encounter Summary ---
Author Organization [employer] ([place], [place], [place], [place]) Address [address] [place] [address] Care Team Providers Care Attenuator Name Role Phone Alan Beyer MD Primary Care Provider [phone] Encounter Details Date Type Department Care Team (Late st Contact Info) Description 07/04/2018 Transcribed Document [facility] [place] Family Medicine [address] [place] [address] ProviderJessenia MD [address] [place] [address] Social History Tobacco Use Types Packs/Day Years Used Date Smoking Tobacco: Never Assessed Comments Unknown Sex and Gender Information Value Date Recorded Sex Assigned at Not on file Legal Sex Female 4:28 PM CDT Gender Identity Not on file Sexual Orientation Not on file documented as of this encounter Miscellaneous Notes * Cerner Conversion Note - Historical ProviderMD - 07/04/2018 4:15 PM COREMAKER PIPE [address] [place] [address] PERSON INFORMATION Name REFUGIO BOND Age 37 Years 1980 Sex Female Language Mongolian PCP EVELINE CAMPBELL, LIGIA-CLAUDIO Marital Status Med Service Emergency Medicine Acct# Arrival 07/04/2018 11:09:00 Visit Reason Surgical problem reevaluation; FEELS LIKE SOMETHING SNAPPED UNDER INCISION Acuity 3 - Urgent LOS 000 05:06 Depart Date: 07/04/18 04:13 PM Address: [address] [place] [id number] Comment: PROVIDER INFORMATION Provider Role Assigned Unassigned GALILEA HANNAH PA ED Physician 07/04/2018 11:36:32 SHAMA CASTILLO, driver/sales workers Nurse 07/04/2018 11:36:59 DIAGNOSIS Abdominal pain; Vascular [...] Without a Known Cause; Abdominal Pain, Adult, Xxxc-tr-Mzgx Follow up: With: Address: When: YOU NEED TO STOP SMOKIING YOU HAVE VASCULAR CALCIFICATION IN YOUR AORTA BEYOND WHAT IS NORMAL FOR YOUR STATED AGE. GET YOUR CHOLESTEROL CHECKED EDILBERTO Shannon YOUR APPT WITH DR BRANCH TOMORROW Within 2 to 3 days With: Address: When: DORIS BRANCH [address] [facility], [address] [place], [place] [id number] [facility] (1) Within 2 to 3 days With: Address: When: Patient Resource Center Within As needed Comments: Patient has a primary care physician with Eveline Campbell. For assistance in the future with finding a new primary care physician please contact the Patient Resource Center at [phone]. With: Address: When: EVELINE CAMPBELL [facility] [address], [address] [place] [address] Business (1) Within 2 to 3 days Comment: documented in this encounter Plan of Treatment Not on file documented as of this encounter Visit Diagnoses Not on filedocumented in this encounter Care Teams Attenuator Relationship Specialty Start Date End Date Alan Beyer MD [address] [place] [address] PCP - General Family Medicine 06/08/23 documented as of this encounter
--- OUTSIDE RECORDS SUMMARY | 2024-11-27 14:47 | XMS_ITS | Encounter Summary ---
Author Organization [employer] ([place], [place], [place], [place]) Address [address] [place] [address] Care Team Providers Care Artificial Glass Eye Maker Name Role Phone Alan Beyer MD Primary Care Provider [phone] Encounter Details Date Type Department Care Team (Late st Contact Info) Description 05/15/2020 Transcribed Document [facility] [place] [address] ProviderJessenia MD [address] [place], [place] [address] Social History Tobacco Use Types Packs/Day Years Used Date Smoking Tobacco: Never Assessed Comments Unknown Sex and Gender Information Value Date Recorded Sex Assigned at Not on file Legal Sex Female 4:28 PM CDT Gender Identity Not on file Sexual Orientation Not on file documented as of this encounter Miscellaneous Notes * Cerner Conversion Note - Jessenia ProviderMD - 05/15/2020 3:57 PM AIRLINE LOUNGE RECEPTIONIST Electronically signed by [facility] Conversion Appraiser Irrigation Tax Cerner at 08/31/2022 5:02 PM CDT documented in this encounter Plan of Treatment Not on file documented as of this encounter Visit Diagnoses Not on filedocumented in this encounter Care Teams Artificial Glass Eye Maker Relationship Specialty Start Date End Date Alan Beyer MD [address] [place] [address] PCP - General Family Medicine 06/08/23 documented as of this encounter
--- OUTSIDE RECORDS SUMMARY | 2024-11-27 14:47 | XMS_ITS | Encounter Summary ---
Author Organization [email or web address] ([place], [place], [place], [place]) Address [address] [place] [address] Care Team Providers Care President Of The [place] Name Role Phone Alan Beyer MD Primary Care Provider [phone] Encounter Details Date Type Department Care Team (Late st Contact Info) Description 07/13/2021 Transcribed Document [facility] [place] [address] [place] [address] ProviderJessenia MD [address] [place] [address] Social History Tobacco Use Types [...] Conversion Note - Historical Provider, - 07/13/2021 4:02 PM SAILING INSTRUCTOR Stroke/Warfarin Instructions Entered On: 07/13/2021 16:02 EST [...] on filedocumented in this encounter Care Teams President Of The [place] Relationship Specialty Start Date End Date Alan Beyer MD [address] [place] [address] PCP - General Family Medicine 06/08/23 documented as of this encounter
--- OUTSIDE RECORDS SUMMARY | 2024-11-27 14:48 | XMS_ITS | Encounter Summary ---
Author Organization [employer] ([place], [place], [place], [place]) Address [address] [place] [address] Care Team Providers Care Concrete Puddler Name Role Phone Alan Beyer MD Primary Care Provider [phone] Encounter Details Date Type Department Care Team (Late st Contact Info) Description 05/15/2020 Transcribed Document [facility] [place] [facility] [place] [address] ProviderJessenia MD [address] [place], [place] [phone] Social History Tobacco Use Types Packs/Day Years Used Date Smoking Tobacco: Never Assessed Comments Unknown Sex and Gender Information Value Date Recorded Sex Assigned at Not on file Legal Sex Female 4:28 PM CDT Gender Identity Not on file Sexual Orientation Not on file documented as of this encounter Miscellaneous Notes * Cerner Conversion Note - Jessenia ProviderMD - 05/15/2020 12:28 PM REPAIR SUPERVISOR ED Triage Entered On: 05/15/2020 13:25 EST Performed On: 05/15/2020 13:21 EST by Caroline Carmona RN ED Triage Across the Room Chief Complaint : Patient arrived c/o sore throat and headache, fever 11 at home. Triage Date/Time : 05/15/2020 13:21 EST Caroline Carmona RN - 05/15/2020 13:21 EST DCP GENERIC CODE Tracking Acuity : 4 - Non - Urgent Tracking Group : [facility] ED [facility] Caroline Carmona RN - 05/15/2020 13:21 EST [...] 05/15/2020 13:25:51 EST) Problems(Active) Anxiety (SNOMED CT :39141706 ) Name of Problem: Anxiety ; Recorder: ERICKA ISSA RN; Confirmation: Confirmed ; Classification: Medical ; Code: 95620018 ; Contributor System: TheySay ; Last Updated: 07/26/2015 22:28 EDT ; Life Cycle Date: 07/26/2015 ; Life Cycle Status: Active ; Vocabulary: SNOMED CT Endometriosis, vagina (SNOMED CT :86562852 ) Name of Problem: Endometriosis, vagina ; Recorder: Breanna Ivey RN; Confirmation: Confirmed ; Classification: Medical ; Code: 65511778 ; Contributor System: Molecule SynthChart ; Last Updated: 05/24/2018 10:54 EST ; Life Cycle Date: 05/24/2018 ; Life Cycle Status: Active ; Vocabulary: SNOMED CT Kidney stones (SNOMED CT :149783209 ) Name of Problem: Kidney stones ; Recorder: KAYY ANDREW; Confirmation: Confirmed ; Classification: Medical ; Code: 024613314 ; Contributor System: PowerChart ; Last Updated: 06/06/2016 9:30 EST ; Life Cycle Date: 06/06/2016 ; Life Cycle Status: Active ; Vocabulary: SNOMED CT Migraine (SNOMED CT :08893646 ) Name of Problem: Migraine ; Recorder: ERICKA ISSA RN; Confirmation: Confirmed ; Classification: Medical ; Code: 89528187 ; Contributor System: PowerChart ; Last Updated: 07/26/2015 22:28 EDT ; Life Cycle Date: 07/26/2015 ; Life Cycle Status: Active ; Vocabulary: SNOMED CT S/P hysterectomy (SNOMED CT :803903771 ) Name of Problem: S/P hysterectomy ; Recorder: LEONID CASTANEDA RN; Confirmation: Confirmed ; Classification: Medical ; Code: 512395724 ; Contributor System: PowerChart ; Last Updated: 11/06/2019 20:08 EDT ; Life Cycle Date: 11/06/2019 ; Life Cycle Status: Active ; Vocabulary: SNOMED CT Shoulder pain, left (SNOMED CT :25773060 ) Name of Problem: Shoulder pain, left ; Recorder: Breanna Ivey RN; Confirmation: Confirmed ; Classification: Medical ; Code: 50527553 ; Contributor System: Molecule SynthChart ; Last Updated: 05/24/2018 10:53 EST ; Life Cycle Date: 05/24/2018 ; Life Cycle Status: Active ; Vocabulary: SNOMED CT Diagnoses(Active) Chest pain Date: 05/15/2020 ; Diagnosis Type: Reason For Visit ; Confirmation: Complaint of ; Clinical Dx: Chest pain ; Classification: Medical ; Clinical Service: Non-Specified ; Code: PNED ; Probability: 0 ; Diagnosis Code: [id number] Headache Date: 05/15/2020 ; Diagnosis Type: Reason For Visit ; Confirmation: Complaint of ; Clinical Dx: Headache ; Classification: Medical ; Clinical Service: Non-Specified ; Code: PNED ; Probability: 0 ; Diagnosis Code: [id number] Throat pain - Adult Date: 05/15/2020 ; Diagnosis Type: Reason For Visit ; Confirmation: Complaint of ; Clinical Dx: Throat pain - Adult ; Classification: Medical ; Clinical Service: Non-Specified ; Code: PNED ; Probability: 0 ; Diagnosis Code: [id number] ED Height and Weight Height Source : Stated Height Entry Format : [place] Height, Feet : 5 ft(Converted to: 152 cm, 60 Inch) Height, Inches : 5 Inch(Converted to: 0 ft 5 Inch, 12.70 cm) Clinical Height : 165.1 cm Weight Source, ED : Critical estimated dosing weight Weight Entry Format : [place] Weight, Pounds : 165 lb Clinical Dosing Weight : 75 kg Body Surface Area (BSA) : 1.82 m2 Body Mass Index : 27.5 kg/m2 (HI) [place] Body Weight (IBW) : 56.59 kg Caroline Carmona RN - 05/15/2020 13:21 EST Electronically signed by Jannette [facility] Conversion Art Editor Cerner at 08/31/2022 5:17 PM CDT documented in this encounter Plan of Treatment Not on file documented as of this encounter Visit Diagnoses Not on filedocumented in this encounter Care Teams Concrete Puddler Relationship Specialty Start Date End Date Alan Beyer MD [address] [place] [address] PCP - General Family Medicine 06/08/23 documented as of this encounter
--- OUTSIDE RECORDS SUMMARY | 2024-11-27 14:48 | XMS_ITS | Encounter Summary ---
Author Organization [employer] ([place], [place], [place], [place]) Address [address] [place] [address] Care Team Providers Care Employment Consultant Name Role Phone Alan Beyer MD Primary Care Provider [phone] Encounter Details Date Type Department Care Team (Late st Contact Info) Description 10/20/2018 Transcribed Document [facility] [place] [place] Family Medicine [address] [place] [address] ProviderJessenia MD [address] [place], [place] [address] Social History Tobacco Use Types Packs/Day Years Used Date Smoking Tobacco: Never Assessed Comments Unknown Sex and Gender Information Value Date Recorded Sex Assigned at Not on file Legal Sex Female 4:28 PM CDT Gender Identity Not on file Sexual Orientation Not on file documented as of this encounter Miscellaneous Notes * Cerner Conversion Note - Jessenia ProviderMD - 10/20/2018 10:04 PM CDT Electronically signed by Jannette [facility] Conversion Surgical Manager Cerner at 08/31/2022 5:16 PM CDT documented in this encounter Plan of Treatment Not on file documented as of this encounter Visit Diagnoses Not on filedocumented in this encounter Care Teams Employment Consultant Relationship Specialty Start Date End Date Alan Beyer MD [address] [place] [address] PCP - General Family Medicine 06/08/23 documented as of this encounter
--- OUTSIDE RECORDS SUMMARY | 2024-11-27 14:48 | XMS_ITS | Encounter Summary ---
Author Organization [employer] ([place], [place], [place], [place]) Address [address] [place] [address] Care Team Providers Care Solid Glass Rod Dowel Machine Operator Name Role Phone Alan Beyer MD Primary Care Provider [phone] Encounter Details Date Type Department Care Team (Late st Contact Info) Description 10/20/2018 Transcribed Document [facility] [place] [facility] [place] [address] ProviderJessenia MD [address] [place], [place] [address] Social History Tobacco Use Types Packs/Day Years Used Date Smoking Tobacco: Never Assessed Comments Unknown Sex and Gender Information Value Date Recorded Sex Assigned at Not on file Legal Sex Female 4:28 PM CDT Gender Identity Not on file Sexual Orientation Not on file documented as of this encounter Miscellaneous Notes * Cerner Conversion Note - Jessenia ProviderMD - 10/20/2018 6:49 PM CDT Patient: CHARLINE BOND Age: 37 years Sex: Female : 1980 Associated Diagnoses: Hx of diarrhea; Hx of nausea and vomiting Author: TETO MCKNIGHT PA-C Basic Information Time [...] Neurological: migraine. Psychiatric: anxiety. Surgical history: Clavicle (311507698). Tympanostomy (2600385099). Adenoids (851541895). shoulder surgery. Gallbladder absent (929229098). Tubal ligation (720632341). Hysterectomy (195295668).. Family history: No family history items have [...] EDT Height Source Stated Height Entry Format [place] Height/Length, FAROESE (ft) 5 ft Height/Length FAROESE 5 Inch CLINICALHEIGHT 165.1 cm [place] Body Weight 56.59 kg Weight Source, ED Standing scale Weight Entry Format [place] Weight Spanish lb 165 lb CLINICALWEIGHT 75 kg Body [...] % 40.4 % Lymph # 2.76 K/uL [place] % 4.8 % [place] # 0.33 K/uL Eos % 0.7 % LOW Eos # 0.05 K/uL Baso % 0.3 % Baso # 0.02 K/uL Slide Review No IG# 0 x10(3)/uL IG% 0 % 10/20/2018 19:44 EDT Urine Type U CleanCatch Urine Color Yellow Urine Appearance Cloudy Urine Specific [place] 1.008 Urine pH Dipstick 6.0 Urine Leukocyte [...] medicine, Medical Plan Condition: Stable. Prescriptions: Prescription Non Linear Editor Pharmacy: Zofran ODT 4 mg oral tablet, disintegrating (Prescribe): 1 Tab, Oral, TID, for 3 Day(s), allow tablet to dissolve on tongue, PRN: Nausea/Vomiting, 9 Tab, 0 Refill(s) promethazine 25 mg oral tablet (Prescribe): 1 Tab, Oral, Q6H, for 3 Day(s), PRN: as needed for nausea/vomiting, 12 Tab, 0 Refill(s). Patient was given the following educational materials: Nausea and Vomiting, Adult, Mecn-ce-Uaps, Diarrhea, Adult, Pwoy-hu-Hhon. Follow up with: [facility] Within As needed For assistance finding a new primary care physician please contact the Patient Resource Center at [phone]. ; JOR[facility] LU[facility]ENO Within 2 to 3 days. Counseled: Patient, Regarding diagnosis, Regarding diagnostic results, Regarding treatment plan, Regarding prescription, Patient indicated understanding of instructions. documented in this encounter Plan of Treatment Not on file documented as of this encounter Visit Diagnoses Not on filedocumented in this encounter Care Teams Solid Glass Rod Dowel Machine Operator Relationship Specialty Start Date End Date Alan Beyer MD [address] [place] [address] PCP - General Family Medicine 06/08/23 documented as of this encounter
--- OUTSIDE RECORDS SUMMARY | 2024-11-27 14:48 | XMS_ITS | Encounter Summary ---
Author Organization [employer] ([place], [place], [place], [place]) Address [address] [place] [address] Care Team Providers Care Collections Associate Name Role Phone Alan Beyer MD Primary Care Provider [phone] Encounter Details Date Type Department Care Team (Late st Contact Info) Description 08/01/2020 Transcribed Document [facility] [place] [facility] [place] [address] ProviderJessenia MD [address] [place], [place] [phone] Social History Tobacco Use Types Packs/Day Years Used Date Smoking Tobacco: Never Assessed Comments Unknown Sex and Gender Information Value Date Recorded Sex Assigned at Not on file Legal Sex Female 4:28 PM CDT Gender Identity Not on file Sexual Orientation Not on file documented as of this encounter Miscellaneous Notes * Cerner Conversion Note - Jessenia ProviderMD - 08/01/2020 5:35 PM CDT Bro[place] Violence Assessment Entered On: 08/01/2020 19:43 EDT Performed On: 08/01/2020 19:42 EDT by JEANNA BARROSO RN Broset Violence Assessment Broset Violence Checklist of Symptoms : None Broset Violence Symptoms Subtotal : 0 Broset Violence Symptoms Indicator : Low risk (0) Broset Interventions : [place] precautions for safety used JEANNA BARROSO RN - 08/01/2020 19:42 EDT documented in this encounter Plan of Treatment Not on file documented as of this encounter Visit Diagnoses Not on filedocumented in this encounter Care Teams Collections Associate Relationship Specialty Start Date End Date Alan Beyer MD [address] [place] [id number] PCP - General Family Medicine 06/08/23 documented as of this encounter
--- OUTSIDE RECORDS SUMMARY | 2024-11-27 14:48 | XMS_ITS | Encounter Summary ---
Author Organization [employer] ([place], [place], [place], [place]) Address [address] [place] [address] Care Team Providers Care Nitroglycerin Separator Operator Name Role Phone Alan Beyer MD Primary Care Provider [phone] Encounter Details Date Type Department Care Team (Late st Contact Info) Description 08/01/2020 Transcribed Document [facility] [place] [address] ProviderJessenia MD [address] [place] [address] Social History Tobacco Use Types Packs/Day Years Used Date Smoking Tobacco: Never Assessed Comments Unknown Sex and Gender Information Value Date Recorded Sex Assigned at Not on file Legal Sex Female 4:28 PM CDT Gender Identity Not on file Sexual Orientation Not on file documented as of this encounter Miscellaneous Notes * Cerner Conversion Note - Jessenia ProviderMD - 08/01/2020 9:02 PM CDT [place] [id number] CHARLINE BOND :1980 Visit Time:08/01/2020 Your Visit Summary Your Care Team Primary Provider: FRANCOISE BARRETT, SHAWN-EMR Secondary Provider: Your Diagnosis Abdominal pain Acute [...] range between ( 1.0 and 7.0 ) [place] #: 0.40 K/uL -- Normal range between ( 0.24 and 0.82 ) Eos #: 0.14 K/uL -- Normal range between ( 0.04 and 0.54 ) [place] %: 4.9 % -- Normal range between [...] Urine Bilirubin Dipstick: Negative mg/dL Urine Specific [place]: 1.017 -- Normal range between ( 1.005 [...] these instructions at home: Medicines ??? Take xonr-joz-qwlhmei and prescription medicines only as told by [...] your condition for any changes. ??? Take jzwu-erp-nzylrfv and prescription medicines only as told by [...] provider. Document Revised: 09/08/2019 Document Reviewed: 09/08/2019 [employer] Patient Education ?? 2020 [employer] Emergency Awareness and Preventative Care STROKE [...] Assistance with quitting is available by contacting 2-291-IIOJNOW. This is a free resource providing counseling, [...] was given the opportunity to ask questions. Patient/Pewter Caster Name: Patient/Pewter Caster Signature: Relationship to Patient: Clinician/Hospital Pewter Caster Signature: Please Provide a Telephone Number Where You Can Be Reached: Is it Permissible To Leave a Message? Date: documented in this encounter Plan of Treatment Not on file documented as of this encounter Visit Diagnoses Not on filedocumented in this encounter Care Teams Nitroglycerin Separator Operator Relationship Specialty Start Date End Date Alan Beyer MD [address] [place] [address] PCP - General Family Medicine 06/08/23 documented as of this encounter
--- OUTSIDE RECORDS SUMMARY | 2024-11-27 14:48 | XMS_ITS | Encounter Summary ---
Author Organization [employer] ([place], [place], [place], [place]) Address [address] [place] [address] Care Team Providers Care Director Of Student Life Name Role Phone Alan Beyer MD Primary Care Provider [phone] Encounter Details Date Type Department Care Team (Late st Contact Info) Description 08/01/2020 Transcribed Document [facility] [place] [facility] [place] [address] ProviderJessenia MD [address] [place], [place] [phone] Social History Tobacco Use Types Packs/Day Years Used Date Smoking Tobacco: Never Assessed Comments Unknown Sex and Gender Information Value Date Recorded Sex Assigned at Not on file Legal Sex Female 4:28 PM CDT Gender Identity Not on file Sexual Orientation Not on file documented as of this encounter Miscellaneous Notes * Cerner Conversion Note - Jessenia ProviderMD - 08/01/2020 5:35 PM CDT [place] Suicide Severity Rating Scale (C-SSRS) Entered On: 08/01/2020 19:43 EDT Performed On: 08/01/2020 19:42 EDT by JEANNA BARROSO RN [place] Suicide Severity Rating Scale (C-SSRS) CSSRS Past [...] filedocumented in this encounter Care Teams Director Of Student Life Relationship Specialty Start Date End Date Alan Beyer MD [address] [place] [address] PCP - General Family Medicine 06/08/23 documented as of this encounter
--- OUTSIDE RECORDS SUMMARY | 2024-11-27 14:48 | XMS_ITS | Encounter Summary ---
Author Organization [employer] ([place], [place], [place], [place]) Address [address] [place] [address] Care Team Providers Care Aquaculture Farm Manager Name Role Phone Alan Beyer MD Primary Care Provider [phone] Encounter Details Date Type Department Care Team (Late st Contact Info) Description 08/01/2020 Transcribed Document [facility] [place] Medicine [facility] [place] [address] ProviderJessenia MD [address] [place] [phone] Social History Tobacco Use Types Packs/Day Years Used Date Smoking Tobacco: Never Assessed Comments Unknown Sex and Gender Information Value Date Recorded Sex Assigned at Not on file Legal Sex Female 4:28 PM CDT Gender Identity Not on file Sexual Orientation Not on file documented as of this encounter Miscellaneous Notes * Cerner Conversion Note - Jessenia ProviderMD - 08/01/2020 5:35 PM CDT ED Triage Entered On: 08/01/2020 19:06 EDT Performed On: 08/01/2020 19:04 EDT by OBEY MONROE, TOUR CONDUCTOR Triage Across the Room Chief Complaint : Pt co Right sided flank pain and RLQ pain that began this Am Pt is calm alert skinpwd Feels nauseated. Triage Date/Time : 08/01/2020 19:04 EDT OBEY MONROE RN - 08/01/2020 19:04 EDT DCP GENERIC CODE Tracking Acuity : 3 - Urgent Tracking Group : [facility] [place] OBEY MONROE RN - 08/01/2020 [...] 08/01/2020 19:06:34 EDT) Problems(Active) Anxiety (SNOMED CT :01308359 ) Name of Problem: Anxiety ; Recorder: ERICKA ISSA RN; Confirmation: Confirmed ; Classification: Medical ; Code: 84378084 ; Contributor System: PowerChart ; Last Updated: 07/26/2015 22:28 EDT ; Life Cycle Date: 07/26/2015 ; Life Cycle Status: Active ; Vocabulary: SNOMED CT Endometriosis, vagina (SNOMED CT :22057452 ) Name of Problem: Endometriosis, vagina ; Recorder: Breanna Ivey RN; Confirmation: Confirmed ; Classification: Medical ; Code: 43712309 ; Contributor System: PowerChart ; Last Updated: 05/24/2018 10:54 EST ; Life Cycle Date: 05/24/2018 ; Life Cycle Status: Active ; Vocabulary: SNOMED CT Kidney stones (SNOMED CT :330201088 ) Name of Problem: Kidney stones ; Recorder: KAYY ANDREW; Confirmation: Confirmed ; Classification: Medical ; Code: 014392893 ; Contributor System: PowerChart ; Last Updated: 06/06/2016 9:30 EST ; Life Cycle Date: 06/06/2016 ; Life Cycle Status: Active ; Vocabulary: SNOMED CT Migraine (SNOMED CT :28455823 ) Name of Problem: Migraine ; Recorder: ERICKA ISSA RN; Confirmation: Confirmed ; Classification: Medical ; Code: 21734430 ; Contributor System: PowerChart ; Last Updated: 07/26/2015 22:28 EDT ; Life Cycle Date: 07/26/2015 ; Life Cycle Status: Active ; Vocabulary: SNOMED CT S/P hysterectomy (SNOMED CT :317879140 ) Name of Problem: S/P hysterectomy ; Recorder: LEONID CASTANEDA RN; Confirmation: Confirmed ; Classification: Medical ; Code: 772648403 ; Contributor System: PowerChart ; Last Updated: 11/06/2019 20:08 EDT ; Life Cycle Date: 11/06/2019 ; Life Cycle Status: Active ; Vocabulary: SNOMED CT Shoulder pain, left (SNOMED CT :18378806 ) Name of Problem: Shoulder pain, left ; Recorder: Breanna Ivey RN; Confirmation: Confirmed ; Classification: Medical ; Code: 00081824 ; Contributor System: Cyber-RainChart ; Last Updated: 05/24/2018 10:53 EST ; Life Cycle Date: 05/24/2018 ; Life Cycle Status: Active ; Vocabulary: SNOMED CT Diagnoses(Active) Abdominal pain Date: 08/01/2020 ; Diagnosis Type: Reason For Visit ; Confirmation: Complaint of ; Clinical Dx: Abdominal pain ; Classification: Medical ; Clinical Service: Emergency medicine ; Code: PNED ; Probability: 0 ; Diagnosis Code: [id number] ED Height and Weight Height Source : Measured Height Entry Format : [place] Height, Feet : 5 ft(Converted to: 152 cm, 60 Inch) Height, Inches : 5 Inch(Converted to: 0 ft 5 Inch, 12.70 cm) Clinical Height : 165.1 cm Weight Source, ED : Standing scale Weight Entry Format : [place] Weight, Pounds : 169 lb Clinical Dosing Weight : 76.82 kg Body Surface Area (BSA) : 1.84 m2 Body Mass Index : 28.2 kg/m2 (HI) [place] Body Weight (IBW) : 56.59 kg OBEY [...] on filedocumented in this encounter Care Teams Aquaculture Farm Manager Relationship Specialty Start Date End Date Alan Beyer MD [address] [place] [address] PCP - General Family Medicine 06/08/23 documented as of this encounter
--- OUTSIDE RECORDS SUMMARY | 2024-11-27 14:48 | XMS_ITS | Encounter Summary ---
Author Organization [employer] ([place], [place], [place], [place]) Address [address] [place] [address] Care Team Providers Care Order Booker Name Role Phone Alan Beyer MD Primary Care Provider [phone] Encounter Details Date Type Department Care Team (Late st Contact Info) Description 07/13/2021 Transcribed Document [facility] [place] Family Medicine [address] [place] [address] ProviderJessenia MD [address] [place] [address] Social History Tobacco Use Types [...] Date Manny rded Speak language other than Lao at home Not on file 05/23/2023 Want [...] Conversion Note - Historical Provider, - 07/13/2021 2:57 PM RUBBER HEEL AND SOLE PRESS TENDER Patient: CHARLINE BOND Age: 40 years Sex: [...] list: All Problems Anxiety / SNOMED CT 99876780 / Confirmed At risk for sleep apnea / IMO 89649183 / Confirmed Endometriosis, vagina / SNOMED CT 28992856 / Confirmed S/P hysterectomy / SNOMED CT 510083826 / Confirmed Kidney stones / SNOMED CT 151071778 / Confirmed Migraine / SNOMED CT 56993066 / Confirmed Shoulder pain, left / SNOMED CT 91204141 / Confirmed Histories Past Medical History: No active or resolved past medical history items have been selected or recorded. Family History: Heart attack Father Sister Coronary heart disease Father Sister Procedure history: Clavicle (716366786). Tympanostomy (3920849438). Adenoids (210477625). shoulder surgery. Gallbladder absent (071301346). Tubal ligation (825519207). Hysterectomy (071015379). Right knee (66690681). Comments: 05/03/2020 15:32 YENI - Jyoti Frazier Rn menisectomy Social History Social & Psychosocial [...] 12:00) 98 (JUL 13 06:30) 100 (JUL 13 01:52) General: Alert and oriented. Eye: Normal conjunctiva. [...] on filedocumented in this encounter Care Teams Order Booker Relationship Specialty Start Date End Date Alan Beyer MD [address] [place] [address] PCP - General Family Medicine 06/08/23 documented as of this encounter
--- OUTSIDE RECORDS SUMMARY | 2024-11-27 14:48 | XMS_ITS | Encounter Summary ---
Author Organization [employer] ([place], [place], [place], [place]) Address [address] [place] [address] Care Team Providers Care It Programmer Analyst Name Role Phone Alan Beyer MD Primary Care Provider [phone] Encounter Details Date Type Department Care Team (Late st Contact Info) Description 08/01/2020 Transcribed Document [facility] [place] [address] ProviderJessenia MD [address] [place], [place] [phone] Social History Tobacco Use Types Packs/Day Years [...] 08/01/2020 8:43 PM CDT Electronically signed by [facility] Conversion Primary Therapist Cerner at 08/31/2022 5:17 PM CDT documented in this encounter Plan of Treatment Not on file documented as of this encounter Visit Diagnoses Not on filedocumented in this encounter Care Teams It Programmer Analyst Relationship Specialty Start Date End Date Alan Beyer MD [address] [place] [address] PCP - General Family Medicine 06/08/23 documented as of this encounter
--- OUTSIDE RECORDS SUMMARY | 2024-11-27 14:48 | XMS_ITS | Encounter Summary ---
Author Organization [email or web address] ([place], [place], [place], [place]) Address [address] [place] [address] Care Team Providers Care Memorial Counselor Name Role Phone Alan Beyer MD Primary Care Provider [phone] Encounter Details Date Type Department Care Team (Late st Contact Info) Description 2018 Transcribed Document [facility] [place] Family Medicine [facility] [place] [address] ProviderJessenia MD [address] [place], [place] [address] Social History Tobacco Use Types Packs/Day Years [...] On: 2018 20:23 EDT by Kalyani Quarles Rn Discharge Process Patient Disposition : Discharge [...] - 2018 20:23 EDT Electronically signed by [facility] Conversion Manager Storage Cerner at 08/31/2022 4:59 PM CDT documented in this encounter Plan of Treatment Not on file documented as of this encounter Visit Diagnoses Not on filedocumented in this encounter Care Teams Memorial Counselor Relationship Specialty Start Date End Date Alan Beyer MD [address] [place] [address] PCP - General Family Medicine 06/08/23 documented as of this encounter
--- OUTSIDE RECORDS SUMMARY | 2024-11-27 14:48 | XMS_ITS | Encounter Summary ---
Author Organization [employer] ([place], [place], [place], [place]) Address [address] [place] [address] Care Team Providers Care Child'S Nurse Name Role Phone Alan Beyer MD Primary Care Provider [phone] Encounter Details Date Type Department Care Team (Late st Contact Info) Description 08/01/2020 Transcribed Document [facility] [place] Family Medicine [facility] [place] [address] ProviderJessenia MD [address] [place] [id number] Social History Tobacco Use Types Packs/Day Years Used Date Smoking Tobacco: Never Assessed Comments Unknown Sex and Gender Information Value Date Recorded Sex Assigned at Not on file Legal Sex Female 4:28 PM CDT Gender Identity Not on file Sexual Orientation Not on file documented as of this encounter Miscellaneous Notes * Cerner Conversion Note - Jessenia ProviderMD - 08/01/2020 7:18 PM CDT Patient: CHARLINE BOND Age: 39 years Sex: Female : 1980 Associated Diagnoses: Acute abdominal pain Author: FRANCOISE BARRETT, COLD ROLLING SUPERVISOR-EMR Basic Information Time seen: Date & time [...] as documented in chart. Surgical history: Clavicle ([id number]). Tympanostomy ([id number]). Adenoids (967793309). shoulder surgery. Gallbladder absent (587470172). Tubal ligation (516883630). Hysterectomy (173034261). Right knee ([id number]). Comments: 05/03/2020 15:32 Jyoti Tilley Rn menisectomy, [...] EDT Height Source Measured Height Entry Format Nolan Height/Length, [place] (ft) 5 ft Height/Length [place] 5 Inch CLINICALHEIGHT 165.1 cm [place] Body Weight 56.59 kg Weight Source, ED Standing scale Weight Entry Format Nolan Weight Khmer lb 169 lb CLINICALWEIGHT 76.82 kg Body [...] % 29.6 % Lymph # 2.43 K/uL [place] % 4.9 % [place] # 0.40 K/uL Eos % 1.7 % Eos # 0.14 K/uL Baso % 0.2 % Baso # 0.02 K/uL Slide Review No IG# 0 x10(3)/uL IG% 0 % Urine Type. U CleanCatch Urine Color Yellow Urine Appearance Clear Urine Specific [place] 1.017 Urine pH Dipstick 6.5 Urine Leukocyte Esterase Negative Urine Nitrite Negative Urine Protein Dipstick Negative Urine Glucose Dipstick Negative Urine Ketones Dipstick Negative Urine Urobilinogen Dipstick 0.2 EU/dL Urine Bilirubin Dipstick Negative mg/dL Urine Blood Dipstick Negative Urine Culture if Indicated Not Indicated HCG Urine Qualitative Negative . Radiology results: Radiology Results (Last 48 hours) [id number] -- 08/01/2020 17:35 CT Abdomen Pelvis WO [...] on filedocumented in this encounter Care Teams Child'S Nurse Relationship Specialty Start Date End Date Alan Beyer MD [address] [place] [address] PCP - General Family Medicine 06/08/23 documented as of this encounter
--- OUTSIDE RECORDS SUMMARY | 2024-11-27 14:48 | XMS_ITS | Encounter Summary ---
Author Organization [employer] ([place], [place], [place], [place]) Address [address] [place] [address] Care Team Providers Care Submarine Element Coordinator Name Role Phone Alan Beyer MD Primary Care Provider [phone] Encounter Details Date Type Department Care Team (Late st Contact Info) Description 08/01/2020 Transcribed Document [facility] [place] [facility] [place] [address] ProviderJessenia MD [address] [place], [place] [id number] Social History Tobacco Use Types Packs/Day Years Used Date Smoking Tobacco: Never Assessed Comments Unknown Sex and Gender Information Value Date Recorded Sex Assigned at Not on file Legal Sex Female 4:28 PM CDT Gender Identity Not on file Sexual Orientation Not on file documented as of this encounter Miscellaneous Notes * Cerner Conversion Note - Jessenia ProviderMD - 08/01/2020 7:13 PM CDT Pain Assessment [...] on filedocumented in this encounter Care Teams Submarine Element Coordinator Relationship Specialty Start Date End Date Alan Beyer MD [address] [place] [address] PCP - General Family Medicine 06/08/23 documented as of this encounter
--- OUTSIDE RECORDS SUMMARY | 2024-11-27 14:48 | XMS_ITS | Encounter Summary ---
Author Organization [employer] ([place], [place], [place], [place]) Address [address] [place] [address] Care Team Providers Care Water Valve Mechanic Name Role Phone Alan Beyer MD Primary Care Provider [phone] Encounter Details Date Type Department Care Team (Late st Contact Info) Description 08/01/2020 Transcribed Document [facility] [place] Family [place] [facility] [place] [address] ProviderJessenia MD [address] [place], [place] [id number] Social History Tobacco Use Types Packs/Day Years [...] ProviderMD - 08/01/2020 5:35 PM CDT ED Assessment Entered On: 08/01/2020 19:43 EDT Performed On: 08/01/2020 19:42 EDT by JEANNA BARROSO RN ED Quick Look Assessment Level of Consciousness : Alert, Awake Affect/Behavior : Appropriate, Calm, Cooperative JEANNA BARROSO RN - 08/01/2020 19:42 EDT ED General-Functional Assess Information Obtained From : Patient Preferred Communication Mode : Verbal Communication Barrier : None Primary Language : South African Any Spiritual/Cultural Needs or Requests : No [...] 19:42 EDT Respiratory Respiratory Assessment WDL : [facility] JEANNA BARROSO RN - 08/01/2020 19:42 EDT Breath Sounds Assessment Grid All Lobes Breath Sounds : Clear SAIDA : Clear LLL : Clear RUL : Clear RML : Clear RLL : Clear JEANNA BARROSO RN - 08/01/2020 19:42 EDT Gastrointestinal ED Gastrointestinal Assessment WDL : WDL with exceptions (Comment: patient reports right flank and RLQ pain that she woke up with [JEANNA BARROSO RN - 08/01/2020 19:42 EDT] ) Gastrointestinal Symptoms : Abdominal pain, Diarrhea, Nausea JEANNA BARROSO RN - 08/01/2020 19:42 EDT Genitourinary Assessment, ED Genitourinary Assessment WDL : [facility] JEANNA BARROSO RN - 08/01/2020 19:42 EDT Musculoskeletal Musculoskeletal Assessment WDL : [facility] JEANNA BARROSO RN - 08/01/2020 19:42 EDT Integumentary Assessment Integumentary Assessment WDL : JEANNA ZURITA RN - 08/01/2020 19:42 EDT Neurologic ASMT, ED Neurologic Assessment WDL : WD Neurological Symptoms : None Level of Consciousness : Alert Affect/Behavior : Appropriate, Calm, Cooperative Orientation : Oriented x 4 JEANNA BARROSO RN - 08/01/2020 19:42 EDT Electronically signed by Trevon Bhatia Conversion [employer] Specialist Cerner at 08/31/2022 4:58 PM CDT documented in this encounter Plan of Treatment Not on file documented as of this encounter Visit Diagnoses Not on filedocumented in this encounter Care Teams Water Valve Mechanic Relationship Specialty Start Date End Date Alan Beyer MD [address] [place] [address] PCP - General Family Medicine 06/08/23 documented as of this encounter
--- OUTSIDE RECORDS SUMMARY | 2024-11-27 14:49 | XMS_ITS | Encounter Summary ---
Author Organization [employer] ([place], [place], [place], [place]) Address [address] [place] [address] Care Team Prov[address] Care Court Orderly Name Role Phone Alan Beyer MD Primary Care Provider [phone] Encounter Details Date Type Department Care Team (Late st Contact Info) Description 07/15/2021 Transcribed Document [facility] [place] [address] [place] [address] ProviderJessenia MD [address] [place] [address] Social History Tobacco Use Types [...] Date Manny rded Speak language other than Welsh at home Not on file 05/23/2023 Want [...] Cerner Conversion Note - Historical Provider, - 07/15/2021 12:33 PM RN PERIOPERATIVE Bro[place] Violence Assessment Entered On: 07/15/2021 13:59 EST Performed On: 07/15/2021 13:58 EST by Suyapa Anglin, RN-PATIENT CARE BEDSIDE NON-EXEMPT Broset Violence Assessment Broset Violence Checklist of Symptoms : None Broset Violence Symptoms Subtotal : 0 Broset Violence Symptoms Indicator : Low risk (0) Suyapa Anglin RN-PATIENT CARE BEDSIDE NON-EXEMPT - 07/15/2021 13:58 EST Electronically signed by Jannette [facility] Conversion Senior Software Development Manager Cerner at 08/31/2022 5:19 PM CDT documented in this encounter Plan of Treatment Not on file documented as of this encounter Visit Diagnoses Not on filedocumented in this encounter Care Teams Court Orderly Relationship Specialty Start Date End Date Alan Beyer MD [address] [place] [address] PCP - General Family Medicine 06/08/23 documented as of this encounter
--- OUTSIDE RECORDS SUMMARY | 2024-11-27 14:49 | XMS_ITS | Encounter Summary ---
Author Organization [employer] ([place], [place], [place], [place]) Address [address] [place] [address] Care Team Providers Care Company Controller Name Role Phone Alan Beyer MD Primary Care Provider [phone] Encounter Details Date Type Department Care Team (Late st Contact Info) Description 2018 Transcribed Document [facility] [place] Family Medicine [facility] [place] [address] ProviderJessenia MD [address] [place] [address] Social History Tobacco Use [...] Alvarez MD - 2018 8:18 PM CDT [place] [id number] CHARLINE BOND :1980 Visit Time:2018 Your Visit Summary Your Care Team Admitting Physician - JAVI TRUJILLO MD-EMR Attending Physician - JAVI TRUJILLO MD-EMR Primary Care Physician - JORGE LUIS BUENO NP-[facility] Referring Physician - PRIYA, SELF REFERRED Your [...] GAMBLE When Within 1 day Where: [address] [facility] [address] [place] [address]- Business (1) Follow Up with JORGE LUIS BUENO When Within 2 to 3 days Where: [address] [place] [address]- [facility] (1) Allergies Bactrim acetaminophen-oxyCODONE clindamycin Toradol [...] doing jumping jacks. General instructions ??? Take hfgc-eau-wrtyzhy and prescription medicines only as told by [...] 04/20/2017 Elsevier Interactive Patient Education ?? 2019 [employer] Emergency Awareness and Preventative Care [...] Assistance with quitting is available by contacting 2-552-HKTS-NOW. This is a free resource providing counseling, support, and referral. Or you may contact your personal physician. [employer] Suicide Prevention Lifeline: The National Suicide Prevention [...] was given the opportunity to ask questions. Patient/Barrel Racer Name: Patient/Barrel Racer Signature: Relationship to Patient: Clinician/Hospital Barrel Racer Signature: Please Provide a Telephone Number Where You Can Be Reached: Is it Permissible To Leave a Message? Date: documented in this encounter Plan of Treatment Not on file documented as of this encounter Visit Diagnoses Not on filedocumented in this encounter Care Teams Company Controller Relationship Specialty Start Date End Date Alan Beyer MD [address] [place] [address] PCP - General Family Medicine 06/08/23 documented as of this encounter
--- OUTSIDE RECORDS SUMMARY | 2024-11-27 14:49 | XMS_ITS | Encounter Summary ---
Author Organization [employer] ([place], [place], [place], [place]) Address [address] [place] [address] Care Team Providers Care Die Stamper Name Role Phone Alan Beyer MD Primary Care Provider [phone] Encounter Details Date Type Department Care Team (Late st Contact Info) Description 05/24/2018 Transcribed Document [facility] [place] [address] [place] [address] ProviderJessenia MD [address] [place] [address] Social History Tobacco Use Types Packs/Day Years Used Date Smoking Tobacco: Never Assessed Comments Unknown Sex and Gender Information Value Date Recorded Sex Assigned at Not on file Legal Sex Female 4:28 PM CDT Gender Identity Not on file Sexual Orientation Not on file documented as of this encounter Miscellaneous Notes * Cerner Conversion Note - Jessenia ProviderMD - 05/24/2018 10:36 AM SCRAP CUTTER PAT Adult Entered On: 05/24/2018 10:43 EST [...] Source : Stated Height Entry Format : [place] Height, Feet : 5 ft(Converted to: 152 cm, 60 Inch) Height, Inches : 5 Inch(Converted to: 0 ft 5 Inch, 12.70 cm) Clinical Height : 165.1 cm Weight Source : Standing scale Weight Entry Format : [place] Clinical Dosing Weight : 75 kg Weight, Pounds : 165 lb Body Surface Area (BSA) : 1.82 m2 Body Mass Index : 27.5 kg/m2 (HI) [place] Body Weight : 57 kg Breanna Ivey [...] #2 Relationship : beau Primary Language : Azeri Preferred Communication Mode : Verbal Communication Barrier : None Breanna Ivey Rn - 05/24/2018 10:36 EST Spenser Scale Spenser Sensory Perception : No impairment Spenser Moisture : Rarely moist Spenser Activity : Walks frequently Spenser Mobility : No limitation Spenser Nutrition : Adequate Spenser Friction and [...] Breanna Ivey Rn - 05/24/2018 10:36 EST Electronically signed by Jannette [facility] Conversion Supervisor Cook Room Cerner at 08/31/2022 5:02 PM CDT documented in this encounter Plan of Treatment Not on file documented as of this encounter Visit Diagnoses Not on filedocumented in this encounter Care Teams Die Stamper Relationship Specialty Start Date End Date Alan Beyer MD [address] [place] [address] PCP - General Family Medicine 06/08/23 documented as of this encounter
--- OUTSIDE RECORDS SUMMARY | 2024-11-27 14:49 | XMS_ITS | Encounter Summary ---
Author Organization [employer] ([place], [place], [place], [place]) Address [address] [place] [address] Care Team Providers Care Smoking Pipes Cleaner Name Role Phone Alan Beyer MD Primary Care Provider [phone] Encounter Details Date Type Department Care Team (Late st Contact Info) Description 09/27/[address] [facility] Radiology [address] [place] [address] Yomi Rodríguez MD [address] [place] [address] Dept[place] [address] Social History Tobacco Use Types Packs/Day Years [...] as documented in chart. Surgical history: Clavicle ([id number]). Tympanostomy (4983543300). Adenoids (988629607). shoulder surgery. Gallbladder absent (998589665). Tubal ligation (642027020). Hysterectomy (656059155). Right knee ([id number]). Comments: 05/03/2020 15:32 Jyoti Tilley Rn menisectomy. [...] rhythm, No ST changes, no ectopy, normal ID & QRS intervals, EP Interp. Results review: [...] % 37.2 % Lymph # 2.73 K/uL [place] % 5.6 % [place] # 0.41 K/uL Eos % 4.5 % Eos # 0.33 K/uL Baso % 0.3 % Baso # 0.02 K/uL Slide Review No IG# 0 x10(3)/uL IG% 0 % . Chest X-Ray: No acute disease process, interpretation by Emergency Physician. Impression and Plan Diagnosis Chest pain - Discharge, Emergency medicine, Medical Costochondral pain - Discharge, Emergency medicine, Medical Plan Condition: Stable. Disposition: Discharged Pharmacy: [facility] 5 mg-325 mg oral tablet (Prescribe): 1 Tab, Oral, BID, for 2 Day(s), PRN: for pain, 4 Tab, 0 Refill(s) predniSONE 10 mg oral tablet (Prescribe): 3 Tab, Oral, Daily, for 5 Day(s), 15 Tab, 0 Refill(s) Admit/Transfer/Discharge: Discharge (Order): Start: 09/27/2020 19:37 EDT, Discharge to: Home . Patient was given the following educational materials: Chest Wall Pain, Dadc-uv-Qadt, Costochondritis, Urrv-pt-Ejjp. Follow up with: REGINALD POWERS Within 2 to 3 days; Follow up with primary care provider Within 2 to 3 days. Counseled: Patient, Regarding diagnosis, Regarding diagnostic results, Regarding treatment plan, Regarding prescription, Patient indicated understanding of instructions. documented in this encounter Plan of Treatment Not on file documented as of this encounter Visit Diagnoses Not on filedocumented in this encounter Care Teams Smoking Pipes Cleaner Relationship Specialty Start Date End Date Alan Beyer MD [address] [place] [address] PCP - General Family Medicine 06/08/23 documented as of this encounter
--- OUTSIDE RECORDS SUMMARY | 2024-11-27 14:49 | XMS_ITS | Encounter Summary ---
Author Organization [employer] ([place], [place], [place], [place]) Address [address] [place] [address] Care Team Providers Care Forming Mill Operator Name Role Phone Alan Beyer MD Primary Care Provider [phone] Encounter Details Date Type Department Care Team (Late st Contact Info) Description 08/19/2021 Transcribed Document [facility] [place] [address] [place] [address] ProviderJessenia MD [address] [place] [address] Social History Tobacco Use Types [...] Date Manny rded Speak language other than Greek at home Not on file 05/23/2023 Want [...] Cerner Conversion Note - Historical ProviderMD - 08/19/2021 7:21 PM CDT [place] Suicide Severity Rating Scale (C-SSRS) Entered On: 08/19/2021 22:34 EDT Performed On: 08/19/2021 20:00 EDT by MITCH CRANE RN [place] Suicide Severity Rating Scale (C-SSRS) CSSRS Past Month Wish to be : No CSSRS Past Month Suicidal Thoughts : No CSSRS Lifetime Suicide Behavior : No Suicide Severity Rating Score : 0 Suicide Severity Rating : No Additional Care Required at this time MITCH CRANE RN - 08/19/2021 22:34 EDT Electronically signed by Jannette [facility] Conversion Medical Massage Therapist Cerner at 08/31/2022 5:14 PM CDT documented in this encounter Plan of Treatment Not on file documented as of this encounter Visit Diagnoses Not on filedocumented in this encounter Care Teams Forming Mill Operator Relationship Specialty Start Date End Date Alan Beyer MD [address] [place] [address] PCP - General Family Medicine 06/08/23 documented as of this encounter
--- OUTSIDE RECORDS SUMMARY | 2024-11-27 14:49 | XMS_ITS | Encounter Summary ---
Author Organization [employer] ([place], [place], [place], [place]) Address [address] [place] [address] Care Team Providers Care Operations Accountant Name Role Phone Alan Beyer MD Primary Care Provider [phone] Encounter Details Date Type Department Care Team (Late st Contact Info) Description 07/15/2021 Transcribed Document [facility] [place] Family Medicine [address] [place] [address] ProviderJessenia MD [address] [place] [address] Social History Tobacco Use Types [...] Date Manny rded Speak language other than Syriac at home Not on file 05/23/2023 Want [...] Jordan Conversion Note - Historical Provider, - 07/15/2021 1:22 PM BACK HOE MACHINE OPERATOR Patient: REFUGIO BOND Age: 40 years Sex: [...] of 44 patient has never seen a dragsaw operator, or had any cardiac work-up done, patient [...] Neurological: migraine. Psychiatric: anxiety. Surgical history: Clavicle ([id number]). Tympanostomy (3848352248). Adenoids (984277981). shoulder surgery. Gallbladder absent (271741915). Tubal ligation (926412847). Hysterectomy ([id number]). Right knee ([id number]). Comments: 05/03/2020 15:32 EST - Jyoti Frazier [...] EST Height Source Estimated Height Entry Format [place] Height/Length, [place] (ft) 5 ft Height/Length [place] 5 Inch CLINICALHEIGHT 165.1 cm [place] Body Weight 56.59 kg Weight Source, ED Critical estimated dosing weight Weight Entry Format [place] Weight [place]ri[place] lb 168 lb CLINICALWEIGHT 76.36 kg Body [...] 109, normal sinus rhythm, no ectopy, normal MD & QRS intervals, EP Interp. Results review: [...] % 25.7 % Lymph # 1.40 K/uL [place] % 5.0 % [place] # 0.27 K/uL Eos % 0.7 % LOW Eos # 0.04 K/uL Baso % 0.2 % Baso # 0.01 K/uL Slide Review No IG# 0 x10(3)/uL IG% 0 % . Radiology results: Radiology Results (Last 48 hours) [id number] -- 07/15/2021 12:33 CR Chest 1 Vw [...] done in the ED, discussion with the dragsaw operator differential diagnoses of symptoms, advised follow up [...] to 3 days; RAYA MCDONALD 11:45 AM Rn Obgyn; Return to emergency department Within As needed Return if condition worsens, if you have increased pain, shortness of breath, fever, dizziness, fainting, etc. Keep appointment with the dragsaw operator for Monday July 19, 2021 at 11:45 am Take one baby aspirin daily Avoid any exertion lifting etc. . Counseled: Patient, Regarding diagnosis, Regarding diagnostic results, Regarding treatment plan, Regarding prescription, Patient indicated understanding of instructions. Electronically signed by Trevon Bhatia Conversion Correctional Supervisor Lieutenant Cerner at 08/31/2022 5:20 PM CDT documented in this encounter Plan of Treatment Not on file documented as of this encounter Visit Diagnoses Not on filedocumented in this encounter Care Teams Operations Accountant Relationship Specialty Start Date End Date Alan Beyer MD [address] [place] [address] PCP - General Family Medicine 06/08/23 documented as of this encounter
--- OUTSIDE RECORDS SUMMARY | 2024-11-27 14:49 | XMS_ITS | Encounter Summary ---
Author Organization [employer] ([place], [place], [place], [place]) Address [address] [place] [address] Care Team Providers Care Gimp Tacker Name Role Phone Alan Beyer MD Primary Care Provider [phone] Encounter Details Date Type Department Care Team (Late st Contact Info) Description 07/15/2021 Transcribed Document [facility] [place] Family [place] [address] [place] [address] ProviderJessenia MD [address] [place] [address] Social History Tobacco Use Types [...] on file 05/23 Educational Attainment Answer Date Mnany rded Speak language other than Yi at home Not on file 05/23/2023 Want [...] Conversion Note - Historical Provider, - 07/15/2021 3:35 PM ONCOLOGIST [place] [address] 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 Keep appointment with the manager [employer] for Monday July 19, 2021 at 11:45 am Take one baby aspirin daily Avoid any exertion lifting etc. Follow Up with MICHAEL HOSKINS When Within 2 to 3 days Where: [address] [place] [address]- Business (1) Allergies Bactrim acetaminophen-oxyCODONE clindamycin Toradol [...] range between ( 1.0 and 7.0 ) [place] #: 0.27 K/uL -- Normal range between ( 0.24 and 0.82 ) [place] #: 0.04 K/uL -- Normal range between ( 0.04 and 0.54 ) [place] %: 5.0 % -- Normal range between [...] these instructions at home: Medicines ??? Take oaok-spz-ezhhmxe and prescription medicines only as told by [...] provider. Document Revised: 10/31/2018 Document Reviewed: 10/31/2018 [employer] Patient Education ?? 2020 [employer]. Emergency Awareness and Preventative Care STROKE is [...] Assistance with quitting is available by contacting 2-023-YRHI-NOW. This is a free resource providing counseling, [...] emergency, radiology, or pathology physicians. Patient Name:MELISSAMIGUELINA REFUGIO DENIZ I have received this information and was given the opportunity to ask questions. Patient/Sociology Adjunct Instructor Name: Patient/Sociology Adjunct Instructor Signature: Relationship to Patient: Clinician/Hospital Sociology Adjunct Instructor Signature: Please Provide a Telephone Number Where You Can Be Reached: Is it Permissible To Leave a Message? Date: Electronically signed by Jannette [facility] Conversion Research Compliance Specialist [place] at 08/31/2022 5:17 PM CDT documented in this encounter Plan of Treatment Not on file documented as of this encounter Visit Diagnoses Not on filedocumented in this encounter Care Teams Gimp Tacker Relationship Specialty Start Date End Date Alan Beyer MD [address] [place] [address] PCP - General Family Medicine 06/08/23 documented as of this encounter
--- OUTSIDE RECORDS SUMMARY | 2024-11-27 14:49 | XMS_ITS | Encounter Summary ---
Author Organization [employer] ([place], [place], [place], [place]) Address [address] [place] [address] Care Team Providers Care Oil Expeller Name Role Phone Alan Beyer MD Primary Care Provider [phone] Encounter Details Date Type Department Care Team (Late st Contact Info) Description 09/27/2020 Transcribed Document [facility] Family Medicine [facility] [place] [address] ProviderJessenia MD [address] [place], [place] [id number] Social History Tobacco Use Types Packs/Day Years Used Date Smoking Tobacco: Never Assessed Comments Unknown Sex and Gender Information Value Date Recorded Sex Assigned at Not on file Legal Sex Female 4:28 PM CDT Gender Identity Not on file Sexual Orientation Not on file documented as of this encounter Miscellaneous Notes * Cerner Conversion Note - Jessenia ProviderMD - 09/27/2020 5:45 PM CDT ED Assessment Entered On: 09/27/2020 19:04 EDT Performed On: 09/27/2020 18:20 EDT by TIFFANY VELEZ, NURSE Quick Look Assessment Level of Consciousness : Alert Affect/Behavior : Appropriate, Calm Orientation : Oriented x 4 Skin Temperature : Warm TIFFANY VELEZ RN - 09/27/2020 19:04 EDT ED General-Functional Assess Information Obtained From : Patient Preferred Communication Mode : Verbal Communication Barrier : None Primary Language : Maltese Any Spiritual/Cultural Needs or Requests : No [...] 09/27/2020 19:04 EDT Electronically signed by Jannette [facility] Conversion Facing Baster Cerner at 08/31/2022 5:02 PM CDT documented in this encounter Plan of Treatment Not on file documented as of this encounter Visit Diagnoses Not on filedocumented in this encounter Care Teams Oil Expeller Relationship Specialty Start Date End Date Alan Beyer MD [address] [place] [address] PCP - General Family Medicine 06/08/23 documented as of this encounter
--- OUTSIDE RECORDS SUMMARY | 2024-11-27 14:49 | XMS_ITS | Encounter Summary ---
Author Organization [employer] ([place], [place], [place], [place]) Address [address] [place] [address] Care Team Providers Care Senior Analyst Name Role Phone Alan Beyer MD Primary Care Provider [phone] Encounter Details Date Type Department Care Team (Late st Contact Info) Description 07/15/2021 Transcribed Document [facility] [place] Family Medicine [address] [place] [address] ProviderJessenia MD [address] [place] [address] Social History Tobacco Use Types [...] Date Manny rded Speak language other than Czech at home Not on file 05/23/2023 Want [...] - Historical Provider, - 07/15/2021 12:33 PM FIREFIGHTER ED Triage Entered On: 07/15/2021 12:46 EST Performed On: 07/15/2021 12:43 EST by Maria Heller RN-PATIENT CARE BEDSIDE NON-EXEMPT ED Triage Across the Room Chief Complaint : Pt c/o CP x2 hr that radiates to the left jaw. Seen here Sunday for the same complaint Triage Date/Time : 07/15/2021 12:43 EST Maria Heller RN-PATIENT CARE [facility] NON-EXEMPT - 07/15/2021 12:43 EST DCP GENERIC CODE Tracking Acuity : 2 - Emergent Tracking Group : [facility] ED [facility] Maria Heller RN-PATIENT CARE BEDSIDE NON-EXEMPT - 07/15/2021 12:43 EST Mode of Arrival : Ambulatory Transported to ED by : Private vehicle To Room Via : Ambulate Accompanied By : Unaccompanied ED Vital Signs : Document Height & Weight : Document ED Allergies : Document ED Reason for Visit : Document Tetanus Immunization : Unknown Maria Heller RN-PATIENT CARE BEDSIDE NON-EXEMPT - 07/15/2021 12:43 EST Infectious Disease History Does patient have symptoms of COVID-19? : No Has the Patient Been Tested for COVID-19 in the last 14 days? : Yes, Patient stated results Negative Does the Patient state known exposure to a COVID-19 positive case in the last 14 days? : No Patient Vaccinated for COVID-19 : Fully vaccinated Maria Heller RN-PATIENT CARE [facility] NON-EXEMPT - 07/15/2021 12:43 EST Infectious Disease [...] day) : NO Maria Heller RN-PATIENT CARE BEDSIDE NON-EXEMPT - 07/15/2021 12:43 EST Physical contact outside [place] in the last 30 days : No Hospitalized in Foreign Country : No Infectious Disease History : Chicken pox/Shingles, Herpes, Influenza, Mononucleosis INF Disease TB Screening Calc : 0 INF Disease Recent Travel Calc : 0 Maria Heller RN-PATIENT CARE BEDSIDE NON-EXEMPT - 07/15/2021 12:43 EST Vital Signs [...] : 98 % Maria Heller RN-PATIENT CARE BEDSIDE NON-EXEMPT - 07/15/2021 12:43 EST Allergy (As [...] 07/15/2021 12:46:06 EST) Problems(Active) Anxiety (SNOMED CT :45350571 ) Name of Problem: Anxiety ; Recorder: ERICKA ISSA RN; Confirmation: Confirmed ; Classification: Medical ; Code: 67902910 ; Contributor System: Linea ; Last Updated: 07/26/2015 22:28 EDT ; Life Cycle Date: 07/26/2015 ; Life Cycle Status: Active ; Vocabulary: SNOMED CT At risk for sleep apnea (IMO :15266118 ) Name of Problem: At risk for sleep apnea ; Recorder: SYSTEM, SYSTEM; Confirmation: Confirmed ; Classification: Medical ; Code: 94056079 ; Last Updated: 07/13/2021 14:49 EST ; Life Cycle Date: 07/13/2021 ; Life Cycle Status: Active ; Vocabulary: IMO Endometriosis, vagina (SNOMED CT :42122058 ) Name of Problem: Endometriosis, vagina ; Recorder: Breanna Ivey RN; Confirmation: Confirmed ; Classification: Medical ; Code: 55326427 ; Contributor System: Linea ; Last Updated: 05/24/2018 10:54 EST ; Life Cycle Date: 05/24/2018 ; Life Cycle Status: Active ; Vocabulary: SNOMED CT Kidney stones (SNOMED CT :236337763 ) Name of Problem: Kidney stones ; Recorder: KAYY ANDREW; Confirmation: Confirmed ; Classification: Medical ; Code: 415146497 ; Contributor System: EpiGaNChart ; Last Updated: 06/06/2016 9:30 EST ; Life Cycle Date: 06/06/2016 ; Life Cycle Status: Active ; Vocabulary: SNOMED CT Migraine (SNOMED CT :43073439 ) Name of Problem: Migraine ; Recorder: ERICKA ISSA RN; Confirmation: Confirmed ; Classification: Medical ; Code: 88657142 ; Contributor System: EpiGaNChart ; Last Updated: 07/26/2015 22:28 EDT ; Life Cycle Date: 07/26/2015 ; Life Cycle Status: Active ; Vocabulary: SNOMED CT Multiple drug allergies (SNOMED CT :0970768414 ) Name of Problem: Multiple drug allergies ; Recorder: YOVANA WILKERSON NP-FAM; Confirmation: Confirmed ; Classification: Medical ; Code: 2448149790 ; Contributor System: PowerChart ; Last Updated: 07/13/2021 15:51 EST ; Life Cycle Date: 07/13/2021 ; Life Cycle Status: Active ; Responsible Provider: YOVANA WILKERSON NP-FAM; Vocabulary: SNOMED CT S/P hysterectomy (SNOMED CT :391516732 ) Name of Problem: S/P hysterectomy ; Recorder: LEONID CASTANEDA RN; Confirmation: Confirmed ; Classification: Medical ; Code: 321822427 ; Contributor System: EpiGaNChart ; Last Updated: 11/06/2019 20:08 EDT ; Life Cycle Date: 11/06/2019 ; Life Cycle Status: Active ; Vocabulary: SNOMED CT Shoulder pain, left (SNOMED CT :16823940 ) Name of Problem: Shoulder pain, left ; Recorder: Breanna Ivey RN; Confirmation: Confirmed ; Classification: Medical ; Code: 48819505 ; Contributor System: EpiGaNChart ; Last Updated: 05/24/2018 10:53 EST ; Life Cycle Date: 05/24/2018 ; Life Cycle Status: Active ; Vocabulary: SNOMED CT Thoracic disc herniation (SNOMED CT :175599644 ) Name of Problem: Thoracic disc herniation ; Recorder: YOVANA WILKERSON NP-FAM; Confirmation: Confirmed ; Classification: Medical ; Code: 092066563 ; Contributor System: EpiGaNChart ; Last Updated: 07/13/2021 15:51 EST ; Life Cycle Date: 07/13/2021 ; Life Cycle Status: Active ; Responsible Provider: YOVANA WILKERSON NP-FAM; Vocabulary: SNOMED CT Diagnoses(Active) Chest pain Date: 07/15/2021 ; Diagnosis Type: Reason For Visit ; Confirmation: Complaint of ; Clinical Dx: Chest pain ; Classification: Medical ; Clinical Service: Non-Specified ; Code: PNED ; Probability: 0 ; Diagnosis Code: [id number] ED Height and Weight Height Source : Estimated Height Entry Format : [place] Height, Feet : 5 ft(Converted to: 152 cm, 60 Inch) Height, Inches : 5 Inch(Converted to: 0 ft 5 Inch, 12.70 cm) Clinical Height : 165.1 cm Weight Source, ED : Critical estimated dosing weight Weight Entry Format : [place] Weight, Pounds : 168 lb Clinical Dosing Weight : 76.36 kg Body Surface Area (BSA) : 1.84 m2 Body Mass Index : 28 kg/m2 (HI) [place] Body Weight (IBW) : 56.59 kg Maria Heller RN-PATIENT CARE BEDSIDE NON-EXEMPT - 07/15/2021 12:43 EST Electronically signed by Jannette [facility] Conversion Operational Risk Consultant Cerner at 08/31/2022 5:10 PM CDT documented in this encounter Plan of Treatment Not on file documented as of this encounter Visit Diagnoses Not on filedocumented in this encounter Care Teams Senior Analyst Relationship Specialty Start Date End Date Alan Beyer MD [address] [place] [address] PCP - General Family Medicine 06/08/23 documented as of this encounter
--- OUTSIDE RECORDS SUMMARY | 2024-11-27 14:49 | XMS_ITS | Encounter Summary ---
Author Organization [employer] ([place], [place], [place], [place]) Address [address] [place] [address] Care Team Providers Care Plugging Machine Operator Name Role Phone Alan Beyer MD Primary Care Provider [phone] Encounter Details Date Type Department Care Team (Late st Contact Info) Description 09/27/2020 Transcribed Document [facility] [place] Family Medicine [facility] [place] [address] ProviderJessenia MD [address] [place] [id number] Social History Tobacco Use Types Packs/Day Years [...] ProviderMD - 09/27/2020 5:45 PM CDT ED Triage [...] : 2 - Emergent Tracking Group : [facility] SHAMA CASTILLO RN - 09/27/2020 17:47 [...] 09/27/2020 17:49:39 EDT) Problems(Active) Anxiety (SNOMED CT :59872360 ) Name of Problem: Anxiety ; Recorder: ERICKA ISSA RN; Confirmation: Confirmed ; Classification: Medical ; Code: 20315901 ; Contributor System: [employer] ; Last Updated: 07/26/2015 22:28 EDT ; Life Cycle Date: 07/26/2015 ; Life Cycle Status: Active ; Vocabulary: SNOMED CT Endometriosis, vagina (SNOMED CT :91328999 ) Name of Problem: Endometriosis, vagina ; Recorder: Breanna Ivey RN; Confirmation: Confirmed ; Classification: Medical ; Code: 80136261 ; Contributor System: PowerChart ; Last Updated: 05/24/2018 10:54 EST ; Life Cycle Date: 05/24/2018 ; Life Cycle Status: Active ; Vocabulary: SNOMED CT Kidney stones (SNOMED CT :609189228 ) Name of Problem: Kidney stones ; Recorder: KAYY ANDREW; Confirmation: Confirmed ; Classification: Medical ; Code: 552133677 ; Contributor System: PowerChart ; Last Updated: 06/06/2016 9:30 EST ; Life Cycle Date: 06/06/2016 ; Life Cycle Status: Active ; Vocabulary: SNOMED CT Migraine (SNOMED CT :35634728 ) Name of Problem: Migraine ; Recorder: ERICKA ISSA RN; Confirmation: Confirmed ; Classification: Medical ; Code: 37315944 ; Contributor System: PowerChart ; Last Updated: 07/26/2015 22:28 EDT ; Life Cycle Date: 07/26/2015 ; Life Cycle Status: Active ; Vocabulary: SNOMED CT S/P hysterectomy (SNOMED CT :907967487 ) Name of Problem: S/P hysterectomy ; Recorder: LEONID CASTANEDA RN; Confirmation: Confirmed ; Classification: Medical ; Code: 349753393 ; Contributor System: PowerChart ; Last Updated: 11/06/2019 20:08 EDT ; Life Cycle Date: 11/06/2019 ; Life Cycle Status: Active ; Vocabulary: SNOMED CT Shoulder pain, left (SNOMED CT :52609653 ) Name of Problem: Shoulder pain, left ; Recorder: Breanna Ivey RN; Confirmation: Confirmed ; Classification: Medical ; Code: 33538102 ; Contributor System: PowerChart ; Last Updated: 05/24/2018 10:53 EST ; Life Cycle Date: 05/24/2018 ; Life Cycle Status: Active ; Vocabulary: SNOMED CT Diagnoses(Active) Chest pain Date: 09/27/2020 ; Diagnosis Type: Reason For Visit ; Confirmation: Complaint of ; Clinical Dx: Chest pain ; Classification: Medical ; Clinical Service: Emergency medicine ; Code: PNED ; Probability: 0 ; Diagnosis Code: [id number] ED Height and Weight Height Source : Stated Height Entry Format : [place] Height, Feet : 5 ft(Converted to: 152 cm, 60 Inch) Height, Inches : 5 Inch(Converted to: 0 ft 5 Inch, 12.70 cm) Clinical Height : 165.1 cm Weight Source, ED : Critical estimated dosing weight Weight Entry Format : [place] Weight, Pounds : 170 lb Clinical Dosing Weight : 77.27 kg Body Surface Area (BSA) : 1.85 m2 Body Mass Index : 28.3 kg/m2 (HI) [place] Body Weight (IBW) : 56.59 kg SHAMA CASTILLO RN - 09/27/2020 17:47 EDT Electronically signed by Jannette [facility] Conversion Pruner Cerner at 08/31/2022 5:16 PM CDT documented in this encounter Plan of Treatment Not on file documented as of this encounter Visit Diagnoses Not on filedocumented in this encounter Care Teams Plugging Machine Operator Relationship Specialty Start Date End Date Alan Beyer MD [address] [place] [address] PCP - General Family Medicine 06/08/23 documented as of this encounter
--- OUTSIDE RECORDS SUMMARY | 2024-11-27 14:49 | XMS_ITS | Encounter Summary ---
Author Organization [employer] ([place], [place], [place], [place]) Address [address] [place] [address] Care Team Providers Care Bath Mixer Name Role Phone Alan Beyer MD Primary Care Provider [phone] Encounter Details Date Type Department Care Team (Late st Contact Info) Description 07/15/2021 Transcribed Document [facility] [place] Family Medicine [address] [place] [address] ProviderJessenia MD [address] [place] [address] Social History Tobacco Use Types [...] Date Manny rded Speak language other than Pashto at home Not on file 05/23/2023 Want [...] Conversion Note - Historical Provider, - 07/15/2021 5:35 PM FORESTRY BIOLOGY SPECIALIST CR Chest 1 Vw Portable Ordered: 07/15/2021 Modified Reason for Exam: Chest Pain 07/15/2021 15:30 07/15/2021 17:35 (KIRK NOGUERA) No further action required Electronically signed by Jannette, [facility] Conversion Manager Truck Cerner at 08/31/2022 5:20 PM CDT documented in this encounter Plan of Treatment Not on file documented as of this encounter Visit Diagnoses Not on filedocumented in this encounter Care Teams Bath Mixer Relationship Specialty Start Date End Date Alan Beyer MD [address] [place] [address] PCP - General Family Medicine 06/08/23 documented as of this encounter
--- OUTSIDE RECORDS SUMMARY | 2024-11-27 14:49 | XMS_ITS | Encounter Summary ---
Author Organization [employer] ([place], [place], [place], [place]) Address [address] [place] [address] Care Team Providers Care Soap Boiler Name Role Phone Alan Beyer MD Primary Care Provider [phone] Encounter Details Date Type Department Care Team (Late st Contact Info) Description 09/27/[address] [facility] [place] Family Medicine [facility] [place] [address] ProviderJessenia MD [address] [place] [id number] Social History Tobacco Use Types Packs/Day Years [...] EDT Performed On: 09/27/2020 19:48 EDT by Jusitn Montes Dray Driver Process Patient Disposition : Discharge Personal Belongings [...] on filedocumented in this encounter Care Teams Soap Boiler Relationship Specialty Start Date End Date Alan Beyer MD [address] [place] [address] PCP - General Family Medicine 06/08/23 documented as of this encounter
--- OUTSIDE RECORDS SUMMARY | 2024-11-27 14:49 | XMS_ITS | Encounter Summary ---
Author Organization [employer] ([place], [place], [place], [place]) Address [address] [place] [address] Care Team Providers Care Horologist Name Role Phone Alan Beyer MD Primary Care Provider [phone] Encounter Details Date Type Department Care Team (Late st Contact Info) Description 2018 Transcribed Document [facility] [place] [facility] [place] [address] ProviderJessenia MD [address] [place] [address] Social History Tobacco Use Types [...] Alvarez MD - 2018 8:16 PM CDT [place] [id number] CHARLINE BOND :1980 Visit Time:2018 Your Visit Summary Your Care Team Admitting Physician - JAVI TRUJILLO MD-EMR Attending Physician - JAVI TRUJILLO MD-EMR Primary Care Physician - JORGE LUIS BUENO NP-[facility] Referring Physician - PRIYA, SELF REFERRED [...] GAMBLE When Within 1 day Where: [address] [facility] [address] [place] [address]- Business (1) Follow Up with JORGE LUIS BUENO When Within 2 to 3 days Where: [address] [place] [address]- [facility] (1) Allergies Bactrim acetaminophen-oxyCODONE clindamycin Toradol baclofen doxycycline escitalopram fentaNYL lidocaine topical 2% gel meperidine morphine penicillin tetanus immune globulin Immunizations This Visit No Immunizations Found Medications What How Much When Instructions Next Dose New acetaminophen-hydrocodone ([place] 5 mg-325 mg oral tablet) 1 Tablet(s) [...] doing jumping jacks. General instructions ??? Take jyeq-rwy-ugpptrk and prescription medicines only as told by [...] 02/25/2008 Document Revised: 04/20/2017 Document Reviewed: 04/20/2017 [employer] Patient Education ?? 2019 [employer] Emergency Awareness and Preventative Care STROKE [...] Assistance with quitting is available by contacting 4-614-VNDY-NOW. This is a free resource providing counseling, support, and referral. Or you may contact your personal physician. [place] Suicide Prevention Lifeline: The National Suicide Prevention [...] was given the opportunity to ask questions. Patient/Cobol Programmer Name: Patient/Cobol Programmer Signature: Relationship to Patient: Clinician/Hospital Cobol Programmer Signature: Please Provide a Telephone Number Where You Can Be Reached: Is it Permissible To Leave a Message? Date: Electronically signed by [facility] Conversion Licensed Optician Cerner at 08/31/2022 5:19 PM CDT documented in this encounter Plan of Treatment Not on file documented as of this encounter Visit Diagnoses Not on filedocumented in this encounter Care Teams Horologist Relationship Specialty Start Date End Date Alan Beyer MD [address] [place] [address] PCP - General Family Medicine 06/08/23 documented as of this encounter
--- OUTSIDE RECORDS SUMMARY | 2024-11-27 14:49 | XMS_ITS | Encounter Summary ---
Author Organization [employer] ([place], [place], [place], [place]) Address [address] [place] [address] Care Team Providers Care Manager Sales And Marketing Name Role Phone Alan Beyer MD Primary Care Provider [phone] Encounter Details Date Type Department Care Team (Late st Contact Info) Description 09/27/2020 Transcribed Document [facility] [place] Family Medicine [facility] [place] [address] ProviderJessenia MD [address] [place], [place] [id number] Social History Tobacco Use Types Packs/Day Years [...] Violence Symptoms Indicator : Low risk (0) TIFFNAY VELEZ, RN - 09/27/2020 18:35 EDT documented in this encounter Plan of Treatment Not on file documented as of this encounter Visit Diagnoses Not on filedocumented in this encounter Care Teams Manager Sales And Marketing Relationship Specialty Start Date End Date Alan Beyer MD [address] [place] [address] PCP - General Family Medicine 06/08/23 documented as of this encounter
--- OUTSIDE RECORDS SUMMARY | 2024-11-27 14:49 | XMS_ITS | Encounter Summary ---
Author Organization [employer] ([place], [place], [place], [place]) Address [address] [place] [address] Care Team Providers Care Train Control Electronic Technician Name Role Phone Alan Beyer MD Primary Care Provider [phone] Encounter Details Date Type Department Care Team (Late st Contact Info) Description 07/15/2021 Transcribed Document [facility] Family Medicine [address] [place] [address] ProviderJessenia MD [address] [place] [address] Social History Tobacco Use Types [...] Conversion Note - Historical Provider, - 07/15/2021 3:46 PM YARD ATTENDANT ED Discharge Entered On: 07/15/2021 15:46 EST [...] With, Opportunity For Questions Given : Patient Suyapa Anglin RN-PATIENT CARE BEDSIDE NON-EXEMPT - 07/15/2021 15:46 EST Electronically signed by Jannette [facility] Conversion Beef Pluck Trimmer Cerner at 08/31/2022 5:22 PM CDT documented in this encounter Plan of Treatment Not on file documented as of this encounter Visit Diagnoses Not on filedocumented in this encounter Care Teams Train Control Electronic Technician Relationship Specialty Start Date End Date Alan Beyer MD [address] [place] [address] PCP - General Family Medicine 06/08/23 documented as of this encounter
--- OUTSIDE RECORDS SUMMARY | 2024-11-27 14:49 | XMS_ITS | Encounter Summary ---
Author Organization [employer] ([place], [place], [place], [place]) Address [address] [place] [address] Care Team Providers Care Mathematics Technician Name Role Phone Alan Beyer MD Primary Care Provider [phone] Encounter Details Date Type Department Care Team (Late st Contact Info) Description 07/15/2021 Transcribed Document [facility] [place] [address] [place] [address] ProviderJessenia MD [address] [place] [address] Social History Tobacco Use Types [...] Cerner Conversion Note - Historical ProviderMD - 07/15/2021 12:33 PM OREMAN [place] Suicide Severity Rating Scale (C-SSRS) Entered On: 07/15/2021 13:59 EST Performed On: 07/15/2021 13:58 EST by Suyapa Anglin, RN-PATIENT CARE BEDSIDE NON-EXEMPT [place] Suicide Severity Rating Scale (C-SSRS) CSSRS Past Month Wish to be : No CSSRS Past Month Suicidal Thoughts : No CSSRS Lifetime Suicide Behavior : No Suicide Severity Rating Score : 0 Suicide Severity Rating : No Additional Care Required at this time Suyapa Anglin, RN-PATIENT CARE BEDSIDE NON-EXEMPT - 07/15/2021 13:58 EST Electronically signed by Jannette [facility] Conversion Farm Tractor Mechanic Cerner at 08/31/2022 5:08 PM CDT documented in this encounter Plan of Treatment Not on file documented as of this encounter Visit Diagnoses Not on filedocumented in this encounter Care Teams Mathematics Technician Relationship Specialty Start Date End Date Alan Beyer MD [address] [place] [address] PCP - General Family Medicine 06/08/23 documented as of this encounter
--- OUTSIDE RECORDS SUMMARY | 2024-11-27 14:49 | XMS_ITS | Encounter Summary ---
Author Organization [employer] ([place], [place], [place], [place]) Address [address] [place] [address] Care Team Providers Care Tube Puller Name Role Phone Alan Beyer MD Primary Care Provider [phone] Encounter Details Date Type Department Care Team (Late st Contact Info) Description 2018 Transcribed Document [facility] [place] Family Medicine [address] [place] [address] ProviderJessenia MD [address] [place], [place] [address] Social History Tobacco Use Types Packs/Day Years Used Date Smoking Tobacco: Never Assessed Comments Unknown Sex and Gender Information Value Date Recorded Sex Assigned at Not on file Legal Sex Female 4:28 PM CDT Gender Identity Not on file Sexual Orientation Not on file documented as of this encounter Miscellaneous Notes * Cerner Conversion Note - Jessenia ProviderMD - 2018 8:18 PM CDT Electronically signed by Jannette [facility] Conversion Acid Bath Mixer Cerner at 08/31/2022 5:21 PM CDT documented in this encounter Plan of Treatment Not on file documented as of this encounter Visit Diagnoses Not on filedocumented in this encounter Care Teams Tube Puller Relationship Specialty Start Date End Date Alan Beyer MD [address] [place] [address] PCP - General Family Medicine 06/08/23 documented as of this encounter
--- OUTSIDE RECORDS SUMMARY | 2024-11-27 14:49 | XMS_ITS | Encounter Summary ---
Author Organization [facility] ([place], [place], [place], [place]) Address [address] [place] [address] Care Team Providers Care Telecommunications Specialist Name Role Phone Alan Beyer MD Primary Care Provider [phone] Encounter Details Date Type Department Care Team (Late st Contact Info) Description 12/14/2018 Transcribed Document [facility] [place] Family [place] [facility] [place] [address] ProviderJessenia MD [address] [place], [place] [address] Social History Tobacco Use Types Packs/Day Years Used Date Smoking Tobacco: Never Assessed Comments Unknown Sex and Gender Information Value Date Recorded Sex Assigned at Not on file Legal Sex Female 4:28 PM CDT Gender Identity Not on file Sexual Orientation Not on file documented as of this encounter Miscellaneous Notes * Cerner Conversion Note - Historical ProviderMD - 12/14/2018 1:03 PM CDT Electronically signed by Jannette [facility] Conversion Wheel Tuner Cerner at 08/31/2022 5:13 PM CDT documented in this encounter Plan of Treatment Not on file documented as of this encounter Visit Diagnoses Not on filedocumented in this encounter Care Teams Telecommunications Specialist Relationship Specialty Start Date End Date Alan Beyer MD [address] [place] [address] PCP - General Family Medicine 06/08/23 documented as of this encounter
--- OUTSIDE RECORDS SUMMARY | 2024-11-27 14:49 | XMS_ITS | Encounter Summary ---
Author Organization [employer] ([place], [place], [place], [place]) Address [address] [place] [address] Care Team Providers Care Return Agent Name Role Phone Alan Beyer MD Primary Care Provider [phone] Encounter Details Date Type Department Care Team (Late st Contact Info) Description 09/27/2020 Transcribed Document [facility] Radiology [address] [place] [address] Yomi Harvey MD [address] [place] [address] Dept. of Emergency Medicine [place], [place] [id number] Social History Tobacco Use Types Packs/Day Years [...] 09/27/2020 8:37 PM EDT Electronically signed by Jannette [facility] Conversion Search Marketing Coordinator Cerner at 08/31/2022 5:03 PM CDT documented in this encounter Plan of Treatment Not on file documented as of this encounter Visit Diagnoses Not on filedocumented in this encounter Care Teams Return Agent Relationship Specialty Start Date End Date Alan Beyer MD [address] [place] [address] PCP - General Family Medicine 06/08/23 documented as of this encounter
--- OUTSIDE RECORDS SUMMARY | 2024-11-27 14:50 | XMS_ITS | Encounter Summary ---
Author Organization [employer] ([place], [place], [place], [place]) Address [address] [place] [address] Care Team Providers Care Dental Office Receptionist Name Role Phone Alan Beyer MD Primary Care Provider [phone] Encounter Details Date Type Department Care Team (Late st Contact Info) Description 08/19/2021 Transcribed Document [facility] [place] Family Medicine [address] [place] [address] ProviderJessenia MD [address] [place] [address] Social History Tobacco Use Types [...] Date Manny rded Speak language other than Belarusian at home Not on file 05/23/2023 Want [...] Jordan Conversion Note - Historical Provider, - 08/19/2021 10:44 PM CDT Patient: CHARLINE [...] as documented in chart. Surgical history: Clavicle ([id number]). Tympanostomy ([id number]). Adenoids ([id number]). shoulder surgery. Gallbladder absent ([id number]). Tubal ligation ([id number]). Hysterectomy ([id number]). Right knee ([id number]). Comments: 05/03/2020 15:32 Jyoti Tilley Rn menisectomy, [...] EDT Height Source Stated Height Entry Format [place] Height/Length, KAZAKH (ft) 5 ft Height/Length KAZAKH 7 Inch CLINICALHEIGHT 170.18 cm [place] Body Weight 61.16 kg Weight Source, ED Critical estimated dosing weight Weight Entry Format [place] Weight [place]ian lb 170 lb CLINICALWEIGHT 77.27 kg Body [...] % 34.0 % Lymph # 3.22 K/uL [place] % 4.8 % [place] # 0.45 K/uL Eos % 0.8 % LOW Eos # 0.08 K/uL Baso % 0.3 % Baso # 0.03 K/uL Slide Review No IG# 0 x10(3)/uL IG% 0 % 08/19/2021 21:06 EDT Urine Type. U CleanCatch Urine Color Yellow Urine Appearance Clear Urine Specific [place] 1.003 Urine pH Dipstick 6.5 Urine Leukocyte Esterase Negative Urine Nitrite Negative Urine Protein Dipstick Negative Urine Glucose Dipstick Negative Urine Ketones Dipstick Negative Urine Urobilinogen Dipstick 0.2 EU/dL Urine Bilirubin Dipstick Negative Urine Blood Dipstick Negative Urine Culture if Indicated Not Indicated HCG Urine Qualitative Negative . Radiology results: Radiology Results (Last 48 hours) [id number] -- 08/19/2021 19:21 CT Abdomen Pelvis WO [...] 22:47 EDT, Discharge to: Home. Prescriptions: Prescription Online Merchandising Manager Pharmacy: [facility] 5 mg-325 mg oral tablet (Prescribe): 1 [...] filedocumented in this encounter Care Teams Dental Office Receptionist Relationship Specialty Start Date End Date Alan Beyer MD [address] [place] [address] PCP - General Family Medicine 06/08/23 documented as of this encounter
--- OUTSIDE RECORDS SUMMARY | 2024-11-27 14:50 | XMS_ITS | Encounter Summary ---
Author Organization [employer] ([place], [place], [place], [place]) Address [address] [place] [address] Care Team Providers Care Neurology Tech Name Role Phone Alan Beyer MD Primary Care Provider [phone] Encounter Details Date Type Department Care Team (Late st Contact Info) Description 08/19/2021 Transcribed Document [facility] [place] [address] [place] [address] ProviderJessenia MD [address] [place] [address] Social History Tobacco Use Types [...] Date Manny rded Speak language other than Wolof at home Not on file 05/23/2023 Want [...] Cerner Conversion Note - Historical Provider, - 08/19/2021 7:21 PM CDT ED Assessment Entered On: 08/19/2021 22:36 EDT Performed On: 08/19/2021 20:00 EDT by MITCH CRANE RN ED Quick Look Assessment Level of Consciousness : Alert, Awake Affect/Behavior : Appropriate, Calm, Cooperative Orientation : Oriented x 4 Skin Description : Dry, [place] MITCH CRANE RN - 08/19/2021 22:35 EDT ED General-Functional Assess Information Obtained From : Patient Preferred Communication Mode : Verbal Communication Barrier : None Primary Language : Wolof Any Spiritual/Cultural Needs or Requests : No [...] MITCH CRANE RN - 08/19/2021 22:35 EDT documented in this encounter Plan of Treatment Not on file documented as of this encounter Visit Diagnoses Not on filedocumented in this encounter Care Teams Neurology Tech Relationship Specialty Start Date End Date Alan Beyer MD [address] [place] [address] PCP - General Family Medicine 06/08/23 documented as of this encounter
--- OUTSIDE RECORDS SUMMARY | 2024-11-27 14:50 | XMS_ITS | Encounter Summary ---
Author Organization [employer] ([place], [place], [place], [place]) Address [address] [place] [address] Care Team Providers Care Batch Maker Name Role Phone Alan Beyer MD Primary Care Provider [phone] Encounter Details Date Type Department Care Team (Late st Contact Info) Description 11/01/2020 Transcribed Document [facility] [place] [facility] [address] ProviderJessenia MD [address] [place] [id number] Social History Tobacco Use Types Packs/Day Years [...] On: 11/01/2020 22:55 EDT by Marly Frias activities director Process Patient Disposition : Discharge Personal Belongings [...] Medications Given to Patient : Yes Marly Frias, RN - 11/01/2020 22:55 EDT Electronically signed by Jannette [facility] Conversion Breast Surgeon Cerner at 08/31/2022 5:00 PM CDT documented in this encounter Plan of Treatment Not on file documented as of this encounter Visit Diagnoses Not on filedocumented in this encounter Care Teams Batch Maker Relationship Specialty Start Date End Date Alan Beyer MD [address] [place] [address] PCP - General Family Medicine 06/08/23 documented as of this encounter
--- OUTSIDE RECORDS SUMMARY | 2024-11-27 14:50 | XMS_ITS | Encounter Summary ---
Author Organization [employer] ([place], [place], [place], [place]) Address [address] [place] [address] Care Team Providers Care Commercial Service Technician Name Role Phone Alan Beyer MD Primary Care Provider [phone] Encounter Details Date Type Department Care Team (Late st Contact Info) Description 09/27/2020 Transcribed Document [facility] [place] [facility] [place] [address] ProviderJessenia MD [address] [place] [address] Social History Tobacco Use Types Packs/Day [...] Alvarez MD - 09/27/2020 7:43 PM CDT [place] [id number] CHARLINE BOND :1980 Visit Time:09/27/2020 Your Visit Summary Your Care Team Primary Provider: OTIS RODRÍGUEZ Secondary Provider: Your Diagnosis Chest pain Chest [...] How Much When Instructions Next Dose acetaminophen-hydrocodone ([place] 5 mg-325 mg oral tablet) 1 Tablet(s) Oral Two Times A Day as needed for for pain Duration: 2 Day(s) Pickup at [place] [address] predniSONE (predniSONE 10 mg oral tablet) 3 Tablet(s) Oral Every Day Duration: 5 Day(s) Pickup at [place] [address] conjugated estrogens (Premarin) Vaginal Weekly cream fexofenadine [...] Oral Every Day fever blister Pharmacy Information [place] [address]: [address] [place], [place] [id number] [phone] The home medications listed are only as [...] range between ( 1.0 and 7.0 ) [place] #: 0.41 K/uL -- Normal range between ( 0.24 and 0.82 ) [place] #: 0.33 K/uL -- Normal range between ( 0.04 and 0.54 ) [place] %: 5.6 % -- Normal range between [...] greater risk of getting burned. ??? Take svcm-bqf-rfhbqoj and prescription medicines only as told by [...] provider. Document Revised: 05/15/2018 Document Reviewed: 08/23/2016 [employer] Patient Education ?? 2020 [employer] Chest Wall Pain Chest wall pain [...] safe for you. General instructions ??? Take kguk-gzp-uqshrqo and prescription medicines only as told by [...] provider. Document Revised: 10/31/2018 Document Reviewed: 10/31/2018 [employer] Patient Education ?? 2020 [employer]. Emergency Awareness and Preventative Care STROKE is [...] Assistance with quitting is available by contacting 5-130-ABQT-NOW. This is a free resource providing counseling, [...] was given the opportunity to ask questions. Patient/Gymnastic Coach Name: Patient/Gymnastic Coach Signature: Relationship to Patient: Clinician/Hospital Gymnastic Coach Signature: Please Provide a Telephone Number Where You Can Be Reached: Is it Permissible To Leave a Message? Date: documented in this encounter Plan of Treatment Not on file documented as of this encounter Visit Diagnoses Not on filedocumented in this encounter Care Teams Commercial Service Technician Relationship Specialty Start Date End Date Alan Beyer MD [address] [place] [address] PCP - General Family Medicine 06/08/23 documented as of this encounter
--- OUTSIDE RECORDS SUMMARY | 2024-11-27 14:50 | XMS_ITS | Encounter Summary ---
Author Organization [employer] ([place], [place], [place], [place]) Address [address] [place] [address] Care Team Providers Care Data Operations Director Name Role Phone Alan Beyer MD Primary Care Provider [phone] Encounter Details Date Type Department Care Team (Late st Contact Info) Description 2018 Transcribed Document [facility] [place] Family Medicine [address] [place] [address] ProviderJessenia MD [address] [place] [address] Social History Tobacco Use Types Packs/Day Years [...] On: 2018 19:06 EDT by GUSTAVO LUNSFORD, FOUNDING PARTNER General-Functional Assess Information Obtained From : Patient Preferred Communication Mode : Verbal Communication Barrier : None Primary Language : Burkinan Any Spiritual/Cultural Needs or Requests : No [...] GUSTAVO LUNSFORD, ELVER - 2018 19:06 EDT documented in this encounter Plan of Treatment Not on file documented as of this encounter Visit Diagnoses Not on filedocumented in this encounter Care Teams Data Operations Director Relationship Specialty Start Date End Date Alan Beyer MD [address] [place] [address] PCP - General Family Medicine 06/08/23 documented as of this encounter
--- OUTSIDE RECORDS SUMMARY | 2024-11-27 14:50 | XMS_ITS | Encounter Summary ---
Author Organization [employer] ([place], [place], [place], [place]) Address [address] [place] [address] Care Team Providers Care Sales Vendor Name Role Phone Alan Beyer MD Primary Care Provider Encounter Details Date Type Department Care Team (Late st Contact Info) Description 2018 Transcribed Document [facility] [place] [facility] [place] [address] ProviderJessenia MD [address] [place] [address] Social History Tobacco Use Types Packs/Day Years Used Date Smoking Tobacco: Never Assessed Comments Unknown Sex and Gender Information Value Date Recorded Sex Assigned at Not on file Legal Sex Female 4:28 PM CDT Gender Identity Not on file Sexual Orientation Not on file documented as of this encounter Miscellaneous Notes * Cerner Conversion Note - Jessenia ProviderMD - 2018 5:52 PM CDT ED Triage Entered On: 2018 18:34 EDT Performed On: 2018 18:28 EDT by RASTA BUCKLEY BACK END DEVELOPER Triage Across the Room Triage Date/Time : 2018 18:28 EDT Chief Complaint : pt c/o rt knee pain , seen at [facility] today and given ibuprofen and had x ray, states wants 2nd opinion , states ibuprofen not helping the pain RASTA BUCKLEY RN - 2018 18:28 EDT DCP GENERIC CODE Tracking Acuity : 3 - Urgent Tracking Group : [facility] RASTA BUCKLEY RN - [...] 2018 18:34:25 EDT) Problems(Active) Anxiety (SNOMED CT :15392698 ) Name of Problem: Anxiety ; Recorder: ERICKA ISSA RN; Confirmation: Confirmed ; Classification: Medical ; Code: [id number] ; Contributor System: Genalyte ; Last Updated: 07/26/2015 22:28 EDT ; Life Cycle Date: 07/26/2015 ; Life Cycle Status: Active ; Vocabulary: SNOMED CT Endometriosis, vagina (SNOMED CT :98219716 ) Name of Problem: Endometriosis, vagina ; Recorder: Breanna Ivey Rn; Confirmation: Confirmed ; Classification: Medical ; Code: [id number] ; Contributor System: PowerChart ; Last Updated: 05/24/2018 10:54 EST ; Life Cycle Date: 05/24/2018 ; Life Cycle Status: Active ; Vocabulary: SNOMED CT Kidney stones (SNOMED CT :384461507 ) Name of Problem: Kidney stones ; Recorder: KAYY ANDREW; Confirmation: Confirmed ; Classification: Medical ; Code: [id number] ; Contributor System: PowerChart ; Last Updated: 06/06/2016 9:30 EST ; Life Cycle Date: 06/06/2016 ; Life Cycle Status: Active ; Vocabulary: SNOMED CT Migraine (SNOMED CT :00848709 ) Name of Problem: Migraine ; Recorder: ERICKA ISSA RN; Confirmation: Confirmed ; Classification: Medical ; Code: [id number] ; Contributor System: Genalyte ; Last Updated: 07/26/2015 22:28 EDT ; Life Cycle Date: 07/26/2015 ; Life Cycle Status: Active ; Vocabulary: SNOMED CT Shoulder pain, left (SNOMED CT :13108648 ) Name of Problem: Shoulder pain, left ; Recorder: Breanna Ivey Rn; Confirmation: Confirmed ; Classification: Medical ; Code: [id number] ; Contributor System: PowerChart ; Last Updated: [...] PNED ; Probability: 0 ; Diagnosis Code: [id number] ED Height and Weight Height Source : Stated Height Entry Format : [place] Height, Feet : 5 ft(Converted to: 152 cm, 60 Inch) Height, Inches : 5 Inch(Converted to: 0 ft 5 Inch, 12.70 cm) Clinical Height : 165.1 cm Weight Source, ED : Standing scale Weight Entry Format : [place] Weight, Pounds : 158 lb Clinical Dosing Weight : 71.82 kg Body Surface Area (BSA) : 1.79 m2 Body Mass Index : 26.3 kg/m2 (HI) [place] Body Weight (IBW) : 56.59 kg RASTA [...] on filedocumented in this encounter Care Teams Sales Vendor Relationship Specialty Start Date End Date Alan Beyer MD [address] [place] [address] PCP - General Family Medicine 06/08/23 documented as of this encounter
--- OUTSIDE RECORDS SUMMARY | 2024-11-27 14:50 | XMS_ITS | Encounter Summary ---
Author Organization [employer] ([place], [place], [place], [place]) Address [address] [place] [address] Care Team Providers Care Senior Oracle Pl Sql Developer Name Role Phone Alan Beyer MD Primary Care Provider [phone] Encounter Details Date Type Department Care Team (Late st Contact Info) Description 07/15/2021 Transcribed Document [facility] [place] Family Medicine [address] [place] [address] ProviderJessenia MD [address] [place] [address] Social History Tobacco Use Types [...] Conversion Note - Historical Provider, - 07/15/2021 3:31 PM LAUNDRY ASSISTANT Electronically signed by Interface, [facility] Conversion Slurry Control Tender Cerner at 08/31/2022 5:23 PM CDT documented in this encounter Plan of Treatment Not on file documented as of this encounter Visit Diagnoses Not on filedocumented in this encounter Care Teams Senior Oracle Pl Sql Developer Relationship Specialty Start Date End Date Alan Beyer MD [address] [place] [address] PCP - General Family Medicine 06/08/23 documented as of this encounter
--- OUTSIDE RECORDS SUMMARY | 2024-11-27 14:50 | XMS_ITS | Encounter Summary ---
Author Organization [employer] ([place], [place], [place], [place]) Address [address] [place] [address] Care Team Providers Care Tax Manager Cpa Name Role Phone Alan Beyer MD Primary Care Provider [phone] Encounter Details Date Type Department Care Team (Late st Contact Info) Description 09/28/2020 Transcribed Document [facility] Radiology [address] [place] [address] Yomi Rodríguez MD [address] [place] [address] Dept. of Emergency Medicine [place], [place] [id number] Social History Tobacco Use Types Packs/Day Years [...] on filedocumented in this encounter Care Teams Tax Manager Cpa Relationship Specialty Start Date End Date Alan Beyer MD [address] [place], [place] [id number] PCP - General Family Medicine 06/08/23 documented as of this encounter
--- OUTSIDE RECORDS SUMMARY | 2024-11-27 14:50 | XMS_ITS | Encounter Summary ---
Author Organization [employer] ([place], [place], [place], [place]) Address [address] [place] [address] Care Team Providers Care Barrel Tester Name Role Phone Alan Beyer MD Primary Care Provider [phone] Encounter Details Date Type Department Care Team (Late st Contact Info) Description 10/17/2020 Transcribed Document [facility] [place] Family [place] [facility] [place] [address] ProviderJessenia MD [address] [place] [address] Social History Tobacco Use Types Packs/Day [...] Jessenia ProviderMD - 10/17/2020 7:07 PM CDT [place] [address] [place] [place] [address] PERSON INFORMATION Name CHARLINE BOND Age 39 Years 1980 Sex Female Language Bengali PCP [address] Marital Status Med Service Emergency Medicine Acct# Arrival 10/17/2020 15:05:00 Visit Reason Flank pain; R FLANK PAIN Acuity 3 - Urgent LOS 000 04:02 Depart Date: 10/17/20 07:07 PM Address: [address] [place] [id number] Comment: PROVIDER INFORMATION Provider Role Assigned Unassigned [...] on filedocumented in this encounter Care Teams Barrel Tester Relationship Specialty Start Date End Date Alan Beyer MD [address] [place] [address] PCP - General Family Medicine 06/08/23 documented as of this encounter
--- OUTSIDE RECORDS SUMMARY | 2024-11-27 14:50 | XMS_ITS | Encounter Summary ---
Author Organization [employer] ([place], [place], [place], [place]) Address [address] [place] [address] Care Team Providers Care Clerical Coordinator Name Role Phone Alan Beyer MD Primary Care Provider [phone] Encounter Details Date Type Department Care Team (Late st Contact Info) Description 09/14/2021 Transcribed Document [facility] [place] [address] [place] [address] ProviderJessenia MD [address] [place] [address] Social History Tobacco Use Types [...] Date Manny rded Speak language other than Hebrew at home Not on file 05/23/2023 Want [...] Cerner Conversion Note - Historical ProviderMD - 09/14/2021 3:10 PM CDT Vital Signs [...] filedocumented in this encounter Care Teams Clerical Coordinator Relationship Specialty Start Date End Date Alan Beyer MD [address] [place] [address] PCP - General Family Medicine 06/08/23 documented as of this encounter
--- OUTSIDE RECORDS SUMMARY | 2024-11-27 14:50 | XMS_ITS | Encounter Summary ---
Author Organization [email or web address] ([place], [place], [place], [place]) Address [address] [place] [address] Care Team Providers Care Plate Cutter Name Role Phone Alan Beyer MD Primary Care Provider [phone] Encounter Details Date Type Department Care Team (Late st Contact Info) Description 07/15/2021 Transcribed Document [facility] [place] [address] [place] [address] ProviderJessenia MD [address] [place] [address] Social History Tobacco Use Types [...] Date Manny rded Speak language other than Turkmen at home Not on file 05/23/2023 Want [...] - Historical Provider, - 07/15/2021 12:33 PM VISUAL STYLIST ED Assessment Entered On: 07/15/2021 13:59 EST [...] Communication Barrier : None Primary Language : Turkmen Any Spiritual/Cultural Needs or Requests : No [...] in bed no acute distress noted [Suyapa Anglin RN-PATIENT CARE BEDSIDE NON-EXEMPT - 07/15/2021 13:58 EST] ) Suyapa Anglin RN-PATIENT CARE BEDSIDE NON-EXEMPT - 07/15/2021 13:58 EST Electronically signed by Jannette [facility] Conversion Interior Decorator Cerner at 08/31/2022 5:23 PM CDT documented in this encounter Plan of Treatment Not on file documented as of this encounter Visit Diagnoses Not on filedocumented in this encounter Care Teams Plate Cutter Relationship Specialty Start Date End Date Alan Beyer MD [address] [place], [place] [id number] PCP - General Family Medicine 06/08/23 documented as of this encounter
--- OUTSIDE RECORDS SUMMARY | 2024-11-27 14:50 | XMS_ITS | Encounter Summary ---
Author Organization [employer] ([place], [place], [place], [place]) Address [address] [place] [address] Care Team Providers Care Pie Crust Mixer Name Role Phone Alan Beyer MD Primary Care Provider [phone] Encounter Details Date Type Department Care Team (Late st Contact Info) Description 12/14/2018 Transcribed Document [facility] [place] [address] [place] [address] ProviderJessenia MD [address] [place], [place] [address] Social History Tobacco Use Types Packs/Day Years Used Date Smoking Tobacco: Never Assessed Comments Unknown Sex and Gender Information Value Date Recorded Sex Assigned at Not on file Legal Sex Female 4:28 PM CDT Gender Identity Not on file Sexual Orientation Not on file documented as of this encounter Miscellaneous Notes * Cerner Conversion Note - Jessenia ProviderMD - 12/14/2018 11:08 AM CDT Pain Assessment [...] on filedocumented in this encounter Care Teams Pie Crust Mixer Relationship Specialty Start Date End Date Alan Beyer MD [address] [place] [address] PCP - General Family Medicine 06/08/23 documented as of this encounter
--- OUTSIDE RECORDS SUMMARY | 2024-11-27 14:50 | XMS_ITS | Encounter Summary ---
Author Organization [employer] ([place], [place], [place], [place]) Address [address] [place] [address] Care Team Providers Care Heel Padder Name Role Phone Alan Beyer MD Primary Care Provider [phone] Encounter Details Date Type Department Care Team (Late st Contact Info) Description 08/19/2021 Transcribed Document [facility] Family Medicine [address] [place] [address] ProviderJessenia MD [address] [place] [address] Social History Tobacco Use Types [...] Date Manny rded Speak language other than Sinhala at home Not on file 05/23/2023 Want [...] Historical ProviderMD - 08/19/2021 7:21 PM CDT Broset Violence Assessment Entered On: 08/19/2021 22:34 EDT Performed On: 08/19/2021 22:34 EDT by MITCH CRANE, RN Broset Violence Assessment Broset Violence Checklist of Symptoms : None Broset Violence Symptoms Subtotal : 0 Broset Violence Symptoms Indicator : Low risk (0) MITCH CRANE RN - 08/19/2021 22:34 EDT Electronically signed by Jannette [facility] Conversion Building Wrecker Cerner at 08/31/2022 5:09 PM CDT documented in this encounter Plan of Treatment Not on file documented as of this encounter Visit Diagnoses Not on filedocumented in this encounter Care Teams Heel Padder Relationship Specialty Start Date End Date Alan Beyer MD [address] [place] [address] PCP - General Family Medicine 06/08/23 documented as of this encounter
--- OUTSIDE RECORDS SUMMARY | 2024-11-27 14:50 | XMS_ITS | Encounter Summary ---
Author Organization [email or web address] ([place], [place], [place], [place]) Address [address] [place] [address] Care Team Providers Care Electronic Warfare Linguist Name Role Phone Alan Beyer MD Primary Care Provider [phone] Encounter Details Date Type Department Care Team (Late st Contact Info) Description 09/14/2021 Transcribed Document [facility] [place] [address] [place] [address] ProviderJessenia MD [address] [place] [address] Social History Tobacco Use Types [...] Cerner Conversion Note - Historical Provider, - 09/14/2021 12:35 PM CDT ED Triage Entered On: 09/14/2021 12:47 EDT Performed On: 09/14/2021 12:41 EDT by VANDANA KHALIL RN-PATIENT CARE BEDSIDE NON-EXEMPT ED Triage Across the Room Chief Complaint : Pt reports to ED via EMS for chest pain that radiates down left arm and into back and neck x1 hour. Pt reports taking 324mg asa and 0.6mg nitro tours captain with minimal relief. Triage Date/Time : 09/14/2021 12:41 EDT VANDANA KHALIL RN-PATIENT CARE [facility] NON-EXEMPT - 09/14/2021 12:41 EDT DCP GENERIC CODE Tracking Acuity : 3 - Urgent Tracking Group : [facility] VANDANA KHALIL RN-PATIENT CARE [facility] NON-EXEMPT - 09/14/2021 12:41 EDT Mode of Arrival : Stretcher Transported to ED by : Ambulance/ALS EMS Service : [facility] To Room Via : Stretcher Accompanied By : Unaccompanied ED Vital Signs : Document Height & Weight : Document ED Allergies : Document ED Reason for Visit : Document Status : Hysterectomy Tetanus Immunization : Unknown VANDANA KHALIL RN-PATIENT CARE [facility] NON-EXEMPT - 09/14/2021 12:41 EDT Infectious Disease History Does patient have symptoms of COVID-19? : No Tested for COVID19 in the past 14 days : No, Patient stated Does the Patient state known exposure to a COVID-19 positive case in the last 14 days? : No Patient Vaccinated for COVID-19 : Fully vaccinated VANDANA KHALIL RN-PATIENT CARE [facility] NON-EXEMPT - 09/14/2021 12:41 EDT Infectious Disease [...] day) : NO VANDANA KHALIL RN-PATIENT CARE BEDSIDE NON-EXEMPT - 09/14/2021 12:41 EDT Physical contact outside [place] in the last 30 days : No Hospitalized in Foreign Country : No Infectious Disease History : Chicken pox/Shingles, Herpes, Influenza, Mononucleosis INF Disease TB Screening Calc : 0 INF Disease Recent Travel Calc : 0 VANDANA KHALIL RN-PATIENT CARE BEDSIDE NON-EXEMPT - 09/14/2021 12:41 EDT Vital Signs [...] : 99 % VANDANA KHALIL RN-PATIENT CARE BEDSIDE NON-EXEMPT - 09/14/2021 12:41 EDT Allergy (As [...] 09/14/2021 12:47:01 EDT) Problems(Active) Anxiety (SNOMED CT :81068596 ) Name of Problem: Anxiety ; Recorder: ERICKA ISSA RN; Confirmation: Confirmed ; Classification: Medical ; Code: 70423654 ; Contributor System: Scifiniti ; Last Updated: 07/26/2015 22:28 EDT ; Life Cycle Date: 07/26/2015 ; Life Cycle Status: Active ; Vocabulary: SNOMED CT At risk for sleep apnea (IMO :98754071 ) Name of Problem: At risk for sleep apnea ; Recorder: SYSTEM, SYSTEM; Confirmation: Confirmed ; Classification: Medical ; Code: 65037553 ; Last Updated: 07/13/2021 14:49 EST ; Life Cycle Date: 07/13/2021 ; Life Cycle Status: Active ; Vocabulary: IMO Endometriosis, vagina (SNOMED CT :38651667 ) Name of Problem: Endometriosis, vagina ; Recorder: Breanna Ivey RN; Confirmation: Confirmed ; Classification: Medical ; Code: 94988349 ; Contributor System: Scifiniti ; Last Updated: 05/24/2018 10:54 EST ; Life Cycle Date: 05/24/2018 ; Life Cycle Status: Active ; Vocabulary: SNOMED CT Kidney stones (SNOMED CT :990314711 ) Name of Problem: Kidney stones ; Recorder: KAYY ANDREW; Confirmation: Confirmed ; Classification: Medical ; Code: 228688641 ; Contributor System: Solapa4Chart ; Last Updated: 06/06/2016 9:30 EST ; Life Cycle Date: 06/06/2016 ; Life Cycle Status: Active ; Vocabulary: SNOMED CT Migraine (SNOMED CT :86772830 ) Name of Problem: Migraine ; Recorder: ERICKA ISSA RN; Confirmation: Confirmed ; Classification: Medical ; Code: 56787515 ; Contributor System: PowerChart ; Last Updated: 07/26/2015 22:28 EDT ; Life Cycle Date: 07/26/2015 ; Life Cycle Status: Active ; Vocabulary: SNOMED CT Multiple drug allergies (SNOMED CT :0812152029 ) Name of Problem: Multiple drug allergies ; Recorder: YOVANA WILKERSON NP-FAM; Confirmation: Confirmed ; Classification: Medical ; Code: 5241927450 ; Contributor System: PowerChart ; Last Updated: 07/13/2021 15:51 EST ; Life Cycle Date: 07/13/2021 ; Life Cycle Status: Active ; Responsible Provider: YOVANA WILKERSON NP-FAM; Vocabulary: SNOMED CT S/P hysterectomy (SNOMED CT :437204510 ) Name of Problem: S/P hysterectomy ; Recorder: LEONID CASTANEDA RN; Confirmation: Confirmed ; Classification: Medical ; Code: 986907891 ; Contributor System: PowerChart ; Last Updated: 11/06/2019 20:08 EDT ; Life Cycle Date: 11/06/2019 ; Life Cycle Status: Active ; Vocabulary: SNOMED CT Shoulder pain, left (SNOMED CT :31368346 ) Name of Problem: Shoulder pain, left ; Recorder: Breanna Ivey RN; Confirmation: Confirmed ; Classification: Medical ; Code: 21244099 ; Contributor System: Solapa4Chart ; Last Updated: 05/24/2018 10:53 EST ; Life Cycle Date: 05/24/2018 ; Life Cycle Status: Active ; Vocabulary: SNOMED CT Thoracic disc herniation (SNOMED CT :133523966 ) Name of Problem: Thoracic disc herniation ; Recorder: YOVANA WILKERSON NP-FAM; Confirmation: Confirmed ; Classification: Medical ; Code: 181029854 ; Contributor System: Scifiniti ; Last Updated: 07/13/2021 15:51 EST ; Life Cycle Date: 07/13/2021 ; Life Cycle Status: Active ; Responsible Provider: YOVANA WILKERSON NP-FAM; Vocabulary: SNOMED CT Diagnoses(Active) Chest pain Date: 09/14/2021 ; Diagnosis Type: Reason For Visit ; Confirmation: Complaint of ; Clinical Dx: Chest pain ; Classification: Medical ; Clinical Service: Non-Specified ; Code: PNED ; Probability: 0 ; Diagnosis Code: [id number] Nausea Date: 09/14/2021 ; Diagnosis Type: Reason For Visit ; Confirmation: Complaint of ; Clinical Dx: Nausea ; Classification: Medical ; Clinical Service: Non-Specified ; Code: PNED ; Probability: 0 ; Diagnosis Code: [id number] ED Height and Weight Height Source : Stated Height Entry Format : [place] Height, Feet : 5 ft(Converted to: 152 cm, 60 Inch) Height, Inches : 5 Inch(Converted to: 0 ft 5 Inch, 12.70 cm) Clinical Height : 165.1 cm Weight Source, ED : Stated [place] Body Weight (IBW) : 56.59 kg VANDANA KHALIL RN-PATIENT CARE BEDSIDE NON-EXEMPT - 09/14/2021 12:41 EDT Estimated Weight Type of Weight Measurement Est : [place] Weight, est lb : 170 lb(Converted to: 77 kg) Estimated Clinical Dosing Weight : 77.27 kg VANDANA KHALIL RN-PATIENT CARE BEDSIDE NON-EXEMPT - 09/14/2021 12:41 EDT documented in this encounter Plan of Treatment Not on file documented as of this encounter Visit Diagnoses Not on filedocumented in this encounter Care Teams Electronic Warfare Linguist Relationship Specialty Start Date End Date Alan Beyer MD [address] [place] [address] PCP - General Family Medicine 06/08/23 documented as of this encounter
--- OUTSIDE RECORDS SUMMARY | 2024-11-27 14:50 | XMS_ITS | Encounter Summary ---
Author Organization [employer] ([place], [place], [place], [place]) Address [address] [place] [address] Care Team Providers Care Equal Opportunity Counselor Name Role Phone Alan Beyer MD Primary Care Provider [phone] Encounter Details Date Type Department Care Team (Late st Contact Info) Description 10/17/2020 Transcribed Document [facility] [place] [facility] [place] [address] ProviderJessenia MD [address] [place], [place] [address] Social History Tobacco Use Types Packs/Day Years Used Date Smoking Tobacco: Never Assessed Comments Unknown Sex and Gender Information Value Date Recorded Sex Assigned at Not on file Legal Sex Female 4:28 PM CDT Gender Identity Not on file Sexual Orientation Not on file documented as of this encounter Miscellaneous Notes * Cerner Conversion Note - Jessenia ProviderMD - 10/17/2020 3:05 PM CDT ED Assessment Entered On: 10/17/2020 18:52 EDT Performed On: 10/17/2020 18:50 EDT by Oksana Rodriguez RN ED Quick Look Assessment Level of Consciousness : Alert, Awake Affect/Behavior : Appropriate, Calm, Cooperative Oksana Rodriguez RN - 10/17/2020 18:50 EDT ED General-Functional Assess Information Obtained From : Patient Preferred Communication Mode : Verbal Communication Barrier : None Primary Language : Kinyarwanda Any Spiritual/Cultural Needs or Requests : No [...] 05/24/2018 10:39:04 EST by Breanna Ivey, RN) documented in this encounter Plan of Treatment Not on file documented as of this encounter Visit Diagnoses Not on filedocumented in this encounter Care Teams Equal Opportunity Counselor Relationship Specialty Start Date End Date Alan Beyer MD [address] [place] [address] PCP - General Family Medicine 06/08/23 documented as of this encounter
--- OUTSIDE RECORDS SUMMARY | 2024-11-27 14:50 | XMS_ITS | Encounter Summary ---
Author Organization [employer] ([place], [place], [place], [place]) Address [address] [place] [address] Care Team Providers Care Review Manager Name Role Phone Alan Beyer MD Primary Care Provider [phone] Encounter Details Date Type Department Care Team (Late st Contact Info) Description 12/14/2018 Transcribed Document [facility] [place] [address] [place] [address] ProviderJessenia MD [address] [place], [place] [address] Social History Tobacco Use Types Packs/Day Years Used Date Smoking Tobacco: Never Assessed Comments Unknown Sex and Gender Information Value Date Recorded Sex Assigned at Not on file Legal Sex Female 4:28 PM CDT Gender Identity Not on file Sexual Orientation Not on file documented as of this encounter Miscellaneous Notes * Cerner Conversion Note - Jessenia ProviderMD - 12/14/2018 10:34 AM CDT ED Assessment [...] Communication Barrier : None Primary Language : Ukrainian Any Spiritual/Cultural Needs or Requests : No [...] MARYSE TAVERAS RN - 12/14/2018 11:00 EDT documented in this encounter Plan of Treatment Not on file documented as of this encounter Visit Diagnoses Not on filedocumented in this encounter Care Teams Review Manager Relationship Specialty Start Date End Date Alan Beyer MD [address] [place], [place] [address] PCP - General Family Medicine 06/08/23 documented as of this encounter
--- OUTSIDE RECORDS SUMMARY | 2024-11-27 14:50 | XMS_ITS | Encounter Summary ---
Author Organization [employer] ([place], [place], [place], [place]) Address [address] [place] [address] Care Team Providers Care Operations And Maintenance Technican Name Role Phone Alan Beyer MD Primary Care Provider [phone] Encounter Details Date Type Department Care Team (Late st Contact Info) Description 12/14/2018 Transcribed Document [facility] [place] [facility] [place] [address] ProviderJessenia MD [address] [place] [address] Social History Tobacco Use Types Packs/Day Years [...] MARYSE TAVERAS RN - 12/14/2018 13:22 EDT documented in this encounter Plan of Treatment Not on file documented as of this encounter Visit Diagnoses Not on filedocumented in this encounter Care Teams Operations And Maintenance Technican Relationship Specialty Start Date End Date Alan Beyer MD [address] [place] [address] PCP - General Family Medicine 06/08/23 documented as of this encounter
--- OUTSIDE RECORDS SUMMARY | 2024-11-27 14:50 | XMS_ITS | Encounter Summary ---
Author Organization [employer] ([place], [place], [place], [place]) Address [address] [place] [address] Care Team Providers Care Grease Machine Worker Name Role Phone Alan Beyer MD Primary Care Provider Encounter Details Date Type Department Care Team (Late st Contact Info) Description 12/14/2018 Transcribed Document [facility] [place] [address] [place] [address] ProviderJessenia MD [address] [place], [place] [address] Social History Tobacco Use Types Packs/Day Years [...] ProviderMD - 12/14/2018 10:34 AM CDT ED Triage [...] Urgent Tracking Group : [facility] ED [facility] PASCUAL HANKINS - 12/14/2018 10:50 EDT Mode [...] Region : No Tuberculosis Symptoms : None [facility] PASCUAL 12/14/2018 10:50 EDT Vital Signs ED Temperature [...] 12/14/2018 10:54:03 EDT) Problems(Active) Anxiety (SNOMED CT :58422913 ) Name of Problem: Anxiety ; Recorder: ERICKA ISSA RN; Confirmation: Confirmed ; Classification: Medical ; Code: 22892905 ; Contributor System: PowerChart ; Last Updated: 07/26/2015 22:28 EDT ; Life Cycle Date: 07/26/2015 ; Life Cycle Status: Active ; Vocabulary: SNOMED CT Endometriosis, vagina (SNOMED CT :08834883 ) Name of Problem: Endometriosis, vagina ; Recorder: Breanna Ivey Rn; Confirmation: Confirmed ; Classification: Medical ; Code: 75658835 ; Contributor System: PowerChart ; Last Updated: 05/24/2018 10:54 EST ; Life Cycle Date: 05/24/2018 ; Life Cycle Status: Active ; Vocabulary: SNOMED CT Kidney stones (SNOMED CT :667771162 ) Name of Problem: Kidney stones ; Recorder: KAYY ANDREW; Confirmation: Confirmed ; Classification: Medical ; Code: 656557558 ; Contributor System: PowerChart ; Last Updated: 06/06/2016 9:30 EST ; Life Cycle Date: 06/06/2016 ; Life Cycle Status: Active ; Vocabulary: SNOMED CT Migraine (SNOMED CT :43165589 ) Name of Problem: Migraine ; Recorder: ERICKA ISSA RN; Confirmation: Confirmed ; Classification: Medical ; Code: 42864519 ; Contributor System: PowerChart ; Last Updated: 07/26/2015 22:28 EDT ; Life Cycle Date: 07/26/2015 ; Life Cycle Status: Active ; Vocabulary: SNOMED CT Shoulder pain, left (SNOMED CT :16947566 ) Name of Problem: Shoulder pain, left ; Recorder: CarrierBreanna Rn; Confirmation: Confirmed ; Classification: Medical ; Code: 15367900 ; Contributor System: CloverChart ; Last Updated: 05/24/2018 10:53 EST ; Life Cycle Date: 05/24/2018 ; Life Cycle Status: Active ; Vocabulary: SNOMED CT Diagnoses(Active) Abdominal pain Date: 12/14/2018 ; Diagnosis Type: Reason For Visit ; Confirmation: Complaint of ; Clinical Dx: Abdominal pain ; Classification: Medical ; Clinical Service: Emergency medicine ; Code: PNED ; Probability: 0 ; Diagnosis Code: [id number] ED Height and Weight Height Source : Stated Height Entry Format : [place] Height, Feet : 5 ft(Converted to: 152 cm, 60 Inch) Height, Inches : 5 Inch(Converted to: 0 ft 5 Inch, 12.70 cm) Clinical Height : 165.1 cm Weight Source, ED : Critical estimated dosing weight Weight Entry Format : [place] Weight, Pounds : 160 lb Clinical Dosing Weight : 72.73 kg Body Surface Area (BSA) : 1.8 m2 Body Mass Index : 26.7 kg/m2 (HI) [place] Body Weight (IBW) : 56.59 kg PASCUAL HANKINS 12/14/2018 10:50 EDT documented in this encounter Plan of Treatment Not on file documented as of this encounter Visit Diagnoses Not on filedocumented in this encounter Care Teams Grease Machine Worker Relationship Specialty Start Date End Date Alan Beyer MD [address] [place] [address] PCP - General Family Medicine 06/08/23 documented as of this encounter
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
--- OUTSIDE RECORDS SUMMARY | 2024-11-27 14:50 | XMS_ITS | Encounter Summary ---
Author Organization [employer] ([place], [place], [place], [place]) Address [address] [place] [address] Care Team Providers Care Wire Weaving Loom Setter Name Role Phone Alan Beyer MD Primary Care Provider [phone] Encounter Details Date Type Department Care Team (Late st Contact Info) Description 10/17/2020 Transcribed Document [facility] [place] [address] ProviderJessenia MD [address] [place], [place] [address] Social History Tobacco Use Types Packs/Day Years Used Date Smoking Tobacco: Never Assessed Comments Unknown Sex and Gender Information Value Date Recorded Sex Assigned at Not on file Legal Sex Female 4:28 PM CDT Gender Identity Not on file Sexual Orientation Not on file documented as of this encounter Miscellaneous Notes * Cerner Conversion Note - Jessenia ProviderMD - 10/17/2020 7:04 PM CDT ED Discharge Entered On: 10/17/2020 19:07 EDT Performed On: 10/17/2020 19:04 EDT by PASCUAL HANKINS Discharge Process Patient Disposition : Discharge Personal [...] on filedocumented in this encounter Care Teams Wire Weaving Loom Setter Relationship Specialty Start Date End Date Alan Beyer MD [address] [place] [address] PCP - General Family Medicine 06/08/23 documented as of this encounter
--- OUTSIDE RECORDS SUMMARY | 2024-11-27 14:50 | XMS_ITS | Encounter Summary ---
Author Organization [employer] ([place], [place], [place], [place]) Address [address] [place] [address] Care Team Providers Care Fuel System Maintenance Supervisor Name Role Phone Alan Beyer MD Primary Care Provider [phone] Encounter Details Date Type Department Care Team (Late st Contact Info) Description 2018 Transcribed Document [facility] [place] [facility] [place] [address] ProviderJessenia MD [address] [place] [address] Social History Tobacco Use Types [...] Alvarez MD - 2018 8:07 PM CDT [place] [id number] REFUGIO BOND :1980 Visit Time:2018 Your Visit Summary Your Care Team Admitting Physician - JAVI TRUJILLO MD-EMR Attending Physician - JAVI TRUJILLO MD-EMR Primary Care Physician - JORGE LUIS BUENO NP-CLAUDIO Referring Physician - PRIYA, SELF REFERRED Your [...] GAMBLE When Within 1 day Where: [address] [facility] [address] [place] [address]- Business (1) Follow Up with JORGE LUIS BUENO When Within 2 to 3 days Where: [address] [place] [address]- Business (1) Allergies Bactrim acetaminophen-oxyCODONE clindamycin Toradol baclofen doxycycline escitalopram fentaNYL lidocaine topical 2% gel meperidine morphine penicillin tetanus immune globulin Immunizations This Visit No Immunizations Found Medications What How Much When Instructions Next Dose New acetaminophen-hydrocodone ([place] 5 mg-325 mg oral tablet) 1 Tablet(s) [...] doing jumping jacks. General instructions ??? Take vhyy-rjy-[id number] and prescription medicines only as told by [...] 02/25/2008 Document Revised: 04/20/2017 Document Reviewed: 04/20/2017 ElseLightwaves Interactive Patient Education ?? 2019 [employer] Emergency Awareness and Preventative Care STROKE [...] Assistance with quitting is available by contacting 0-726-RPTANOW. This is a free resource providing counseling, [...] emergency, radiology, or pathology physicians. Patient Name:RIANA REFUGIOGerry GUAMAN I have received this information and was given the opportunity to ask questions. Patient/Customer Care Professional Name: Patient/Customer Care Professional Signature: Relationship to Patient: Clinician/Hospital Customer Care Professional Signature: Please Provide a Telephone Number Where You Can Be Reached: Is it Permissible To Leave a Message? Date: documented in this encounter Plan of Treatment Not on file documented as of this encounter Visit Diagnoses Not on filedocumented in this encounter Care Teams Fuel System Maintenance Supervisor Relationship Specialty Start Date End Date Alan Beyer MD [address] [place] [address] PCP - General Family Medicine 06/08/23 documented as of this encounter
--- OUTSIDE RECORDS SUMMARY | 2024-11-27 14:50 | XMS_ITS | Encounter Summary ---
Author Organization [employer] ([place], [place], [place], [place]) Address [address] [place] [address] Care Team Providers Care Cloth Cutter Name Role Phone Alan Beyer MD Primary Care Provider [phone] Encounter Details Date Type Department Care Team (Late st Contact Info) Description 10/17/2020 Transcribed Document [facility] [place] [facility] [place] [address] ProviderJessenia MD [address] [place], [place] [id number] Social History Tobacco Use Types Packs/Day Years Used Date Smoking Tobacco: Never Assessed Comments Unknown Sex and Gender Information Value Date Recorded Sex Assigned at Not on file Legal Sex Female 4:28 PM CDT Gender Identity Not on file Sexual Orientation Not on file documented as of this encounter Miscellaneous Notes * Cerner Conversion Note - Jessenia ProviderMD - 10/17/2020 5:00 PM CDT Pain Assessment [...] on filedocumented in this encounter Care Teams Cloth Cutter Relationship Specialty Start Date End Date Alan Beyer MD [address] [place] [address] PCP - General Family Medicine 06/08/23 documented as of this encounter
--- OUTSIDE RECORDS SUMMARY | 2024-11-27 14:51 | XMS_ITS | Encounter Summary ---
Author Organization [employer] ([place], [place], [place], [place]) Address [address] [place] [address] Care Team Providers Care Featherer Name Role Phone Alan Beyer MD Primary Care Provider [phone] Encounter Details Date Type Department Care Team (Late st Contact Info) Description 12/14/2018 Transcribed Document [facility] [place] Medicine [place] [address] ProviderJessenia MD [address] [place] [address] Social History Tobacco Use Types [...] Alvarez MD - 12/14/2018 1:12 PM CDT [place] [id number] CHARLINE BOND :1980 Visit Time:12/14/2018 Your Visit Summary Your Care Team Admitting Physician - PRIYA, JAMAR PAYNE MD-EMR Attending Physician - JAMAR BREWER MD-EMR Primary Care Physician - JORGE LUIS CAMPBELL NP-[facility] Referring Physician - PRIYA, SELF REFERRED [...] please contact the Patient Resource Center at [phone]. Follow Up with JORGE LUIS CAMPBELL When Within 2 to 3 days Where: [address] [place] [address]- Business (1) Allergies Bactrim acetaminophen-oxyCODONE clindamycin Toradol baclofen doxycycline escitalopram fentaNYL lidocaine topical 2% gel meperidine morphine penicillin tetanus immune globulin Immunizations This Visit No Immunizations Found Medications What How Much When Instructions Next Dose New acetaminophen-hydrocodone ([place] 5 mg-325 mg oral tablet) 1-2 tabs Oral Every 6 Hours as needed for as needed for pain Printed Prescription New nabumetone (nabumetone 500 mg oral tablet) 1 Tablet(s) Oral Two Times A Day as needed for Pain Duration: 4 Day(s) Pickup at [place] [address] New ondansetron (Zofran ODT 4 mg oral tablet, disintegrating) 1 Tablet(s) Oral Three Times A Day as needed for Nausea/Vomiting Pickup at [place] [address] Pharmacy Information [facility] [address]: [address] [place], [place] [id number] [phone] The home medications listed are only as [...] range between ( 1.0 and 7.0 ) [place] #: 0.42 K/uL -- Normal range between ( 0.24 and 0.82 ) [place] #: 0.05 K/uL -- Normal range between ( 0.04 and 0.54 ) [place] %: 5.9 % -- Normal range between [...] Urine Bilirubin Dipstick: Negative mg/dL Urine Specific [place]: 1.020 -- Normal range between ( 1.005 [...] Rhubarb. ? Beets. ? Potato chips and slovenian fries. ? Nuts. ??? If you regularly take a diuretic medicine, make sure to eat at least 1???2 fruits or vegetables high in potassium each day. These include: ? Avocado. ? Banana. ? Lamar, prune, carrot, or tomato juice. ? Baked [...] Casseroles. Pizza. Lasagna. Frozen meals. Potato chips. Japanese fries. Summary ??? You can reduce your [...] 08/25/2011 Document Revised: 04/10/2017 Document Reviewed: 04/10/2017 Health Essentials Interactive Patient Education ?? 2019 [employer]. Emergency Awareness and Preventative Care STROKE is [...] Assistance with quitting is available by contacting 8-066-CJWH-NOW. This is a free resource providing counseling, [...] was given the opportunity to ask questions. Patient/Pediatric Clinical Nurse Specialist Name: Patient/Pediatric Clinical Nurse Specialist Signature: Relationship to Patient: Clinician/Hospital Pediatric Clinical Nurse Specialist Signature: Please Provide a Telephone Number Where You Can Be Reached: Is it Permissible To Leave a Message? Date: Electronically signed by Jannette, [facility] Conversion Client Analyst Cerner at 08/31/2022 5:18 PM CDT documented in this encounter Plan of Treatment Not on file documented as of this encounter Visit Diagnoses Not on filedocumented in this encounter Care Teams Featherer Relationship Specialty Start Date End Date Alan Beyer MD [address] [place] [address] PCP - General Family Medicine 06/08/23 documented as of this encounter
--- OUTSIDE RECORDS SUMMARY | 2024-11-27 14:51 | XMS_ITS | Encounter Summary ---
Author Organization [employer] ([place], [place], [place], [place]) Address [address] [place] [address] Care Team Providers Care Grocery Manager Name Role Phone Alan Beyer MD Primary Care Provider [phone] Encounter Details Date Type Department Care Team (Late st Contact Info) Description 10/17/2020 Transcribed Document [facility] [place] [facility] [place] [address] ProviderJessenia MD [address] [place], [place] [id number] Social History Tobacco Use Types Packs/Day Years [...] on filedocumented in this encounter Care Teams Grocery Manager Relationship Specialty Start Date End Date Alan Beyer MD [address] [place] [address] PCP - General Family Medicine 06/08/23 documented as of this encounter
--- OUTSIDE RECORDS SUMMARY | 2024-11-27 14:51 | XMS_ITS | Encounter Summary ---
Author Organization [employer] ([place], [place], [place], [place]) Address [address] [place] [address] Care Team Providers Care Otr Truck Driver Name Role Phone Alan Beyer MD Primary Care Provider [phone] Encounter Details Date Type Department Care Team (Late st Contact Info) Description 10/17/2020 Transcribed Document [facility] [place] Family [place] [facility] [place] [address] ProviderJessenia MD [address] [place], [place] [phone] Social History Tobacco Use Types Packs/Day Years Used Date Smoking Tobacco: Never Assessed Comments Unknown Sex and Gender Information Value Date Recorded Sex Assigned at Not on file Legal Sex Female 4:28 PM CDT Gender Identity Not on file Sexual Orientation Not on file documented as of this encounter Miscellaneous Notes * Cerner Conversion Note - Jessenia ProviderMD - 10/17/2020 3:05 PM CDT Wilson Suicide Severity Rating Scale (C-SSRS) Entered On: 10/17/2020 18:52 EDT Performed On: 10/17/2020 18:50 EDT by Oksana Rodriguez RN Wilson Suicide Severity Rating Scale (C-SSRS) CSSRS Past Month Wish to be : No CSSRS Past Month Suicidal Thoughts : No CSSRS Lifetime Suicide Behavior : No Suicide Severity Rating Score : 0 Suicide Severity Rating : No Additional Care Required at this time Oksana Rodriguez RN - 10/17/2020 18:50 EDT Electronically signed by Jannette [facility] Conversion Auto Overhauler Cerner at 08/31/2022 5:10 PM CDT documented in this encounter Plan of Treatment Not on file documented as of this encounter Visit Diagnoses Not on filedocumented in this encounter Care Teams Otr Truck Driver Relationship Specialty Start Date End Date Alan Beyer MD [address] [place], [place] [id number] PCP - General Family Medicine 06/08/23 documented as of this encounter
--- OUTSIDE RECORDS SUMMARY | 2024-11-27 14:51 | XMS_ITS | Encounter Summary ---
Author Organization [employer] ([place], [place], [place], [place]) Address [address] [place] [address] Care Team Providers Care Shot Tube Machine Tender Name Role Phone Alan Beyer MD Primary Care Provider [phone] Encounter Details Date Type Department Care Team (Late st Contact Info) Description 08/19/2021 Transcribed Document [facility] [place] Family Medicine [address] [place] [address] ProviderJessenia MD [address] [place] [address] Social History Tobacco Use Types [...] Provider, - 08/19/2021 7:21 PM CDT ED Triage Entered On: 08/19/2021 20:17 EDT Performed On: 08/19/2021 20:14 EDT by Marly Frias ORACLE MANUFACTURING CONSULTANT Triage Across the Room Chief Complaint : [...] Group : [facility] [place] Marly Frias RN - 08/19/2021 [...] Patient Vaccinated for COVID-19 : Fully vaccinated aMrly Frias RN - 08/19/2021 20:14 EDT Infectious [...] INF Disease Recent Travel Calc : 0 SeptemberMarly RN - 08/19/2021 20:14 EDT Vital Signs [...] mmHg (HI) Oxygen Saturation : 99 % SeptemberMarly RN - 08/19/2021 20:14 EDT Allergy (As [...] Updated By: JAME ZUNIGA, PharmD; Reviewed Date: 08/19/2021 20:15 EDT tetanus [...] 08/19/2021 20:17:25 EDT) Problems(Active) Anxiety (SNOMED CT :23558830 ) Name of Problem: Anxiety ; Recorder: ERICKA ISSA RN; Confirmation: Confirmed ; Classification: Medical ; Code: 51604110 ; Contributor System: [employer] ; Last Updated: 07/26/2015 22:28 EDT ; Life Cycle Date: 07/26/2015 ; Life Cycle Status: Active ; Vocabulary: SNOMED CT At risk for sleep apnea (IMO :13186779 ) Name of Problem: At risk for sleep apnea ; Recorder: SYSTEM, SYSTEM; Confirmation: Confirmed ; Classification: Medical ; Code: 57160953 ; Last Updated: 07/13/2021 14:49 EST ; Life Cycle Date: 07/13/2021 ; Life Cycle Status: Active ; Vocabulary: IMO Endometriosis, vagina (SNOMED CT :91249947 ) Name of Problem: Endometriosis, vagina ; Recorder: Breanna Ivey RN; Confirmation: Confirmed ; Classification: Medical ; Code: 45963248 ; Contributor System: [employer] ; Last Updated: 05/24/2018 10:54 EST ; Life Cycle Date: 05/24/2018 ; Life Cycle Status: Active ; Vocabulary: SNOMED CT Kidney stones (SNOMED CT :880312424 ) Name of Problem: Kidney stones ; Recorder: KAYY ANDREW; Confirmation: Confirmed ; Classification: Medical ; Code: 297355145 ; Contributor System: PowerChart ; Last Updated: 06/06/2016 9:30 EST ; Life Cycle Date: 06/06/2016 ; Life Cycle Status: Active ; Vocabulary: SNOMED CT Migraine (SNOMED CT :41658463 ) Name of Problem: Migraine ; Recorder: ERICKA ISSA RN; Confirmation: Confirmed ; Classification: Medical ; Code: 35794855 ; Contributor System: PowerChart ; Last Updated: 07/26/2015 22:28 EDT ; Life Cycle Date: 07/26/2015 ; Life Cycle Status: Active ; Vocabulary: SNOMED CT Multiple drug allergies (SNOMED CT :1273933813 ) Name of Problem: Multiple drug allergies ; Recorder: YOVANA WILKERSON NP-FAM; Confirmation: Confirmed ; Classification: Medical ; Code: 7826685143 ; Contributor System: [employer] ; Last Updated: 07/13/2021 15:51 EST ; Life Cycle Date: 07/13/2021 ; Life Cycle Status: Active ; Responsible Provider: YOVANA WILKERSON NP-FAM; Vocabulary: SNOMED CT S/P hysterectomy (SNOMED CT :323609428 ) Name of Problem: S/P hysterectomy ; Recorder: LEONID CASTANEDA RN; Confirmation: Confirmed ; Classification: Medical ; Code: 044804846 ; Contributor System: [employer] ; Last Updated: 11/06/2019 20:08 EDT ; Life Cycle Date: 11/06/2019 ; Life Cycle Status: Active ; Vocabulary: SNOMED CT Shoulder pain, left (SNOMED CT :54963006 ) Name of Problem: Shoulder pain, left ; Recorder: Breanna Ivey RN; Confirmation: Confirmed ; Classification: Medical ; Code: 22961548 ; Contributor System: PowerChart ; Last Updated: 05/24/2018 10:53 EST ; Life Cycle Date: 05/24/2018 ; Life Cycle Status: Active ; Vocabulary: SNOMED CT Thoracic disc herniation (SNOMED CT :157814799 ) Name of Problem: Thoracic disc herniation ; Recorder: YOVANA WILKERSON NP-FAM; Confirmation: Confirmed ; Classification: Medical ; Code: 893053955 ; Contributor System: PowerChart ; Last Updated: [...] PNED ; Probability: 0 ; Diagnosis Code: [id number] Flank pain Date: 08/19/2021 ; Diagnosis Type: Reason For Visit ; Confirmation: Complaint of ; Clinical Dx: Flank pain ; Classification: Medical ; Clinical Service: Non-Specified ; Code: PNED ; Probability: 0 ; Diagnosis Code: [id number] Nausea Date: 08/19/2021 ; Diagnosis Type: Reason For Visit ; Confirmation: Complaint of ; Clinical Dx: Nausea ; Classification: Medical ; Clinical Service: Non-Specified ; Code: PNED ; Probability: 0 ; Diagnosis Code: [id number] ED Height and Weight Height Source : Stated Height Entry Format : [place] Height, Feet : 5 ft(Converted to: 152 cm, 60 Inch) Height, Inches : 7 Inch(Converted to: 0 ft 7 Inch, 17.78 cm) Clinical Height : 170.18 cm Weight Source, ED : Critical estimated dosing weight Weight Entry Format : [place] Weight, Pounds : 170 lb Clinical Dosing Weight : 77.27 kg Body Surface Area (BSA) : 1.89 m2 Body Mass Index : 26.7 kg/m2 (HI) [place] Body Weight (IBW) : 61.16 kg Marly Frias RN - 08/19/2021 20:14 EDT ED Influenza/Pneumoccocal Vaccine Influenza Immunization, Current Season : Yes Previous Vaccines from Immunization Schedule : No qualifying data available. Marly Frias RN - 08/19/2021 20:14 EDT documented in this encounter Plan of Treatment Not on file documented as of this encounter Visit Diagnoses Not on filedocumented in this encounter Care Teams Shot Tube Machine Tender Relationship Specialty Start Date End Date Neus, Alan K, MD [address] [place] [id number] PCP - General Family Medicine 06/08/23 documented as of this encounter
--- OUTSIDE RECORDS SUMMARY | 2024-11-27 14:52 | XMS_ITS | Encounter Summary ---
Author Organization [employer] ([place], [place], [place], [place]) Address [address] [place] [address] Care Team Providers Care Property Officer Name Role Phone Alan Beyer MD Primary Care Provider [phone] Encounter Details Date Type Department Care Team (Late st Contact Info) Description 08/19/2021 Transcribed Document [facility] [place] [address] [place] [address] ProviderJessenia MD [address] [place] [address] Social History Tobacco Use Types [...] Conversion Note - Historical ProviderMD - 08/19/2021 11:18 PM CDT ED Discharge [...] MITCH CRANE RN - 08/19/2021 23:18 EDT Electronically signed by Jannette [facility] Conversion Paper Conservator Cerner at 08/31/2022 5:16 PM CDT documented in this encounter Plan of Treatment Not on file documented as of this encounter Visit Diagnoses Not on filedocumented in this encounter Care Teams Property Officer Relationship Specialty Start Date End Date Alan Beyer MD [address] [place] [address] PCP - General Family Medicine 06/08/23 documented as of this encounter
--- OUTSIDE RECORDS SUMMARY | 2024-11-27 14:52 | XMS_ITS | Encounter Summary ---
Author Organization [employer] ([place], [place], [place], [place]) Address [address] [place] [address] Care Team Providers Care Blade Balancer Name Role Phone Alan Beyer MD Primary Care Provider [phone] Encounter Details Date Type Department Care Team (Late st Contact Info) Description 09/14/2021 Transcribed Document [facility] [place] Family Medicine [address] [place] [address] ProviderJessenia MD [address] [place] [address] Social History Tobacco Use Types [...] Date Manny rded Speak language other than Lithuanian at home Not on file 05/23/2023 Want [...] Conversion Note - Historical ProviderMD - 09/14/2021 12:35 PM CDT [place] Suicide Severity Rating Scale (C-SSRS) Entered On: 09/14/2021 13:20 EDT Performed On: 09/14/2021 13:16 EDT by VANDANA KHALIL RN-PATIENT CARE BEDSIDE NON-EXEMPT [place] Suicide Severity Rating Scale (C-SSRS) CSSRS Past [...] on filedocumented in this encounter Care Teams Blade Balancer Relationship Specialty Start Date End Date Alan Beyer MD [address] [place] [address] PCP - General Family Medicine 06/08/23 documented as of this encounter
--- OUTSIDE RECORDS SUMMARY | 2024-11-27 14:52 | XMS_ITS | Encounter Summary ---
Author Organization [employer] ([place], [place], [place], [place]) Address [address] [place] [address] Care Team Providers Care Sat Instructor Name Role Phone Alan Beyer MD Primary Care Provider [phone] Encounter Details Date Type Department Care Team (Late st Contact Info) Description 01/06/2019 Transcribed Document [facility] [place] [facility] [place] [address] ProviderJessenia MD [address] [place] [address] Social History Tobacco Use Types Packs/Day Years Used Date Smoking Tobacco: Never Assessed Comments Unknown Sex and Gender Information Value Date Recorded Sex Assigned at Not on file Legal Sex Female 4:28 PM CDT Gender Identity Not on file Sexual Orientation Not on file documented as of this encounter Miscellaneous Notes * Cerner Conversion Note - Historical ProviderMD - 01/06/2019 1:03 PM CDT [place] [id number] Visit Date/Time: 01/06/2019 13:03:15 CHARLINE BOND The above patient was seen in the hospital today and needs to be excused from work/school until Return to Work/School Date: 01/08/19 documented in this encounter Plan of Treatment Not on file documented as of this encounter Visit Diagnoses Not on filedocumented in this encounter Care Teams Sat Instructor Relationship Specialty Start Date End Date Alan Beyer MD [address] [place] [address] PCP - General Family Medicine 06/08/23 documented as of this encounter
--- OUTSIDE RECORDS SUMMARY | 2024-11-27 14:52 | XMS_ITS | Encounter Summary ---
Author Organization [employer] ([place], [place], [place], [place]) Address [address] [place] [address] Care Team Providers Care Graining Press Operator Name Role Phone Alan Beyer MD Primary Care Provider [phone] Encounter Details Date Type Department Care Team (Late st Contact Info) Description 08/19/[address] [facility] [place] Family Medicine [address] [place] [address] ProviderJessenia MD [address] [place] [address] Social History Tobacco Use Types [...] Date Manny rded Speak language other than Uzbek at home Not on file 05/23/2023 Want [...] Conversion Note - Historical Provider, - 08/19/2021 10:50 PM CDT Electronically signed by Interface, [facility] Conversion Technical Account Manager Cerner at 08/31/2022 5:14 PM CDT documented in this encounter Plan of Treatment Not on file documented as of this encounter Visit Diagnoses Not on filedocumented in this encounter Care Teams Graining Press Operator Relationship Specialty Start Date End Date Alan Beyer MD [address] [place] [address] PCP - General Family Medicine 06/08/23 documented as of this encounter
--- OUTSIDE RECORDS SUMMARY | 2024-11-27 14:52 | XMS_ITS | Encounter Summary ---
Author Organization [employer] ([place], [place], [place], [place]) Address [address] [place] [address] Care Team Providers Care Wiring Mechanic Name Role Phone Alan Beyer MD Primary Care Provider [phone] Encounter Details Date Type Department Care Team (Late st Contact Info) Description 12/14/2018 Transcribed Document [facility] [place] [address] ProviderJessenia MD [address] [place] [address] Social History Tobacco Use Types [...] Alvarez MD - 12/14/2018 1:11 PM CDT [place] [id number] CHARLINE BOND :1980 Visit Time:12/14/2018 Your Visit Summary Your Care Team Admitting Physician - PRIYA, JAMAR PAYNE MD-EMR Attending Physician - JAMAR BREWER MD-EMR Primary Care Physician - JORGE LUIS CAMPBELL NP-[facility] Referring Physician - PRIYA, SELF REFERRED [...] please contact the Patient Resource Center at [phone]. Follow Up with JORGE LUIS CAMPBELL When Within 2 to 3 days Where: [address] [place] [address]- Business (1) Allergies Bactrim acetaminophen-oxyCODONE clindamycin Toradol baclofen doxycycline escitalopram fentaNYL lidocaine topical 2% gel meperidine morphine penicillin tetanus immune globulin Immunizations This Visit No Immunizations Found Medications What How Much When Instructions Next Dose New acetaminophen-hydrocodone ([place] 5 mg-325 mg oral tablet) 1-2 tabs Oral Every 6 Hours as needed for as needed for pain Printed Prescription New nabumetone (nabumetone 500 mg oral tablet) 1 Tablet(s) Oral Two Times A Day as needed for Pain Duration: 4 Day(s) Pickup at [place] [address] New ondansetron (Zofran ODT 4 mg oral tablet, disintegrating) 1 Tablet(s) Oral Three Times A Day as needed for Nausea/Vomiting Pickup at [place] [address] Pharmacy Information [facility] 407: [address] [place], [place] [id number] [phone] The home medications listed are only as [...] range between ( 1.0 and 7.0 ) [place] #: 0.42 K/uL -- Normal range between ( 0.24 and 0.82 ) Eos #: 0.05 K/uL -- Normal range between ( 0.04 and 0.54 ) [place] %: 5.9 % -- Normal range between [...] Urine Bilirubin Dipstick: Negative mg/dL Urine Specific [place]: 1.020 -- Normal range between ( 1.005 [...] Rhubarb. ? Beets. ? Potato chips and yoruba fries. ? Nuts. ??? If you regularly take a diuretic medicine, make sure to eat at least 1???2 fruits or vegetables high in potassium each day. These include: ? Avocado. ? Banana. ? Somers, prune, carrot, or tomato juice. ? Baked [...] Casseroles. Pizza. Lasagna. Frozen meals. Potato chips. Ukrainian fries. Summary ??? You can reduce your [...] 08/25/2011 Document Revised: 04/10/2017 Document Reviewed: 04/10/2017 [email or web address] Patient Education ?? 2019 [employer]. Emergency Awareness and Preventative Care STROKE is [...] Assistance with quitting is available by contacting 7-984-VRNI-NOW. This is a free resource providing counseling, [...] was given the opportunity to ask questions. Patient/Mining Speculator Name: Patient/Mining Speculator Signature: Relationship to Patient: Clinician/Hospital Mining Speculator Signature: Please Provide a Telephone Number Where You Can Be Reached: Is it Permissible To Leave a Message? Date: Electronically signed by Jannette, [facility] Conversion Gate Technician Cerner at 08/31/2022 5:18 PM CDT documented in this encounter Plan of Treatment Not on file documented as of this encounter Visit Diagnoses Not on filedocumented in this encounter Care Teams Wiring Mechanic Relationship Specialty Start Date End Date Alan Beyer MD [address] [place] [address] PCP - General Family Medicine 06/08/23 documented as of this encounter
--- OUTSIDE RECORDS SUMMARY | 2024-11-27 14:52 | XMS_ITS | Encounter Summary ---
Author Organization [employer] ([place], [place], [place], [place]) Address [address] [place] [address] Care Team Providers Care Garnetter Name Role Phone Alan Beyer MD Primary Care Provider [phone] Encounter Details Date Type Department Care Team (Late st Contact Info) Description 09/14/[address] [facility] [place] [address] [place] [address] ProviderJessenia MD [address] [place] [address] Social History Tobacco Use Types [...] Date Manny rded Speak language other than Persian at home Not on file 05/23/2023 Want [...] Conversion Note - Historical Provider, - 09/14/2021 5:05 PM CDT Electronically signed by Interface, [facility] Conversion Drywall Metal Stud Worker Cerner at 08/31/2022 4:58 PM CDT documented in this encounter Plan of Treatment Not on file documented as of this encounter Visit Diagnoses Not on filedocumented in this encounter Care Teams Garnetter Relationship Specialty Start Date End Date Alan Beyer MD [address] [place] [address] PCP - General Family Medicine 06/08/23 documented as of this encounter
--- OUTSIDE RECORDS SUMMARY | 2024-11-27 14:52 | XMS_ITS | Encounter Summary ---
Author Organization [employer] ([place], [place], [place], [place]) Address [address] [place] [address] Care Team Providers Care Applications Engineer Manufacturing Name Role Phone Alan Beyer MD Primary Care Provider [phone] Encounter Details Date Type Department Care Team (Late st Contact Info) Description 01/06/2019 Transcribed Document [facility] [place] [address] [place] [address] ProviderJessenia MD [address] [place], [place] [id number] Social History Tobacco Use Types Packs/Day Years Used Date Smoking Tobacco: Never Assessed Comments Unknown Sex and Gender Information Value Date Recorded Sex Assigned at Not on file Legal Sex Female 4:28 PM CDT Gender Identity Not on file Sexual Orientation Not on file documented as of this encounter Miscellaneous Notes * Cerner Conversion Note - Jessenia ProviderMD - 01/06/2019 10:49 AM CDT ED Assessment [...] Communication Barrier : None Primary Language : Iranian Any Spiritual/Cultural Needs or Requests : No [...] on filedocumented in this encounter Care Teams Applications Engineer Manufacturing Relationship Specialty Start Date End Date Alan Beyer MD [address] [place] [address] PCP - General Family Medicine 06/08/23 documented as of this encounter
--- OUTSIDE RECORDS SUMMARY | 2024-11-27 14:52 | XMS_ITS | Encounter Summary ---
Author Organization [employer] ([place], [place], [place], [place]) Address [address] [place] [address] Care Team Providers Care Radiator Cleaner Name Role Phone Alan Beyer MD Primary Care Provider [phone] Encounter Details Date Type Department Care Team (Late st Contact Info) Description 11/01/2020 Transcribed Document [facility] [place] [facility] [place] [address] ProviderJessenia MD [address] [place], [place] [id number] Social History Tobacco Use Types Packs/Day Years [...] 11/01/2020 10:13 PM CDT Electronically signed by [facility], [facility] Conversion Associate Of Science In Nursing Cerner at 08/31/2022 4:59 PM CDT documented in this encounter Plan of Treatment Not on file documented as of this encounter Visit Diagnoses Not on filedocumented in this encounter Care Teams Radiator Cleaner Relationship Specialty Start Date End Date Alan Beyer MD [address] [place] [address] PCP - General Family Medicine 06/08/23 documented as of this encounter
--- OUTSIDE RECORDS SUMMARY | 2024-11-27 14:52 | XMS_ITS | Encounter Summary ---
Author Organization [employer] ([place], [place], [place], [place]) Address [address] [place] [address] Care Team Providers Care Boy'S Adviser Name Role Phone Alan Beyer MD Primary Care Provider [phone] Encounter Details Date Type Department Care Team (Late st Contact Info) Description 08/19/2021 Transcribed Document [facility] [place] Medicine [address] [place] [address] ProviderJessenia MD [address] [place] [address] Social History Tobacco Use Types [...] Date Manny rded Speak language other than Yoruba at home Not on file 05/23/2023 Want [...] Conversion Note - Historical Provider, - 08/19/2021 10:52 PM [address] [address] REFUGIO BOND :1980 Visit Time:08/19/2021 Your Visit Summary [...] next Follow-Up Appointments Follow Up with JAGDISH ALEXANDRE When Within 2 to 3 days Comments Call for follow up appointment Follow-up as instructed Where: [address] [place] [address] [facility] (1) Follow Up with MICHAEL HOSKINS When Within 2 to 3 days Comments Call for follow up appointment Follow-up as instructed Where: [address] [place], [place] [id number]- [facility] (1) Allergies Bactrim acetaminophen-oxyCODONE clindamycin Toradol baclofen doxycycline escitalopram fentaNYL lidocaine topical 2% gel meperidine morphine penicillin (Hives) tetanus immune globulin Immunizations This Visit No Immunizations Found Medications What How Much When Instructions Next Dose acetaminophen-hydrocodone ([place] 5 mg-325 mg oral tablet) 1 Tablet(s) Oral Every 6 Hours as needed for for pain Duration: 3 Day(s) Pickup at [facility]/pharmacy #[id number] ondansetron (Zofran ODT 4 mg oral tablet, disintegrating) 1 Tablet(s) Oral Every 6 Hours as needed for Nausea/Vomiting Duration: 2 Day(s) Pickup at [facility]/pharmacy #[id number] clonazePAM (clonazePAM 0.5 mg oral tablet) [...] Every Day Duration: 30 Day(s) [id number] [address] [place], [place] [id number] [phone] The home medications listed are only as [...] range between ( 1.0 and 7.0 ) [place] #: 0.45 K/uL -- Normal range between ( 0.24 and 0.82 ) Eos #: 0.08 K/uL -- Normal range between ( 0.04 and 0.54 ) [place] %: 4.8 % -- Normal range between [...] ) Urine Bilirubin Dipstick: Negative Urine Specific [place]: 1.003 -- Normal range between ( 1.005 [...] these instructions at home: Medicines ??? Take qwju-sqe-iomlvox and prescription medicines only as told by [...] provider. Document Revised: 09/16/2019 Document Reviewed: 09/16/2019 Elsevier Patient Education ?? 2020 [employer]. Emergency Awareness and Preventative Care STROKE is [...] Assistance with quitting is available by contacting 7-709-TCSH-NOW. This is a free resource providing counseling, [...] emergency, radiology, or pathology physicians. Patient Name:RIANA REFUGIO DENIZ I have received this information and was given the opportunity to ask questions. Patient/Academic Services Professional Name: Patient/Academic Services Professional Signature: Relationship to Patient: Clinician/Hospital Academic Services Professional Signature: Please Provide a Telephone Number Where You Can Be Reached: Is it Permissible To Leave a Message? Date: documented in this encounter Plan of Treatment Not on file documented as of this encounter Visit Diagnoses Not on filedocumented in this encounter Care Teams Boy'S Adviser Relationship Specialty Start Date End Date Alan Beyer MD [address] [place] [address] PCP - General Family Medicine 06/08/23 documented as of this encounter
--- OUTSIDE RECORDS SUMMARY | 2024-11-27 14:52 | XMS_ITS | Encounter Summary ---
Author Organization [employer] ([place], [place], [place], [place]) Address [address] [place] [address] Care Team Providers Care Drivers' Cash Clerk Name Role Phone Alan Beyer MD Primary Care Provider [phone] Encounter Details Date Type Department Care Team (Late st Contact Info) Description 10/17/2020 Transcribed Document [facility] [place] Family [place] [facility] [place] [address] ProviderJessenia MD [address] [place], [place] [id number] Social History Tobacco Use Types Packs/Day Years [...] 10/17/2020 6:47 PM CDT Electronically signed by [facility], [facility] Conversion Bread Molder Cerner at 08/31/2022 5:11 PM CDT documented in this encounter Plan of Treatment Not on file documented as of this encounter Visit Diagnoses Not on filedocumented in this encounter Care Teams Drivers' Cash Clerk Relationship Specialty Start Date End Date Alan Beyer MD [address] [place] [address] PCP - General Family Medicine 06/08/23 documented as of this encounter
--- OUTSIDE RECORDS SUMMARY | 2024-11-27 14:52 | XMS_ITS | Encounter Summary ---
Author Organization [employer] ([place], [place], [place], [place]) Address [address] [place] [address] Care Team Providers Care Cloth Stock Sorter Name Role Phone Alan Beyer MD Primary Care Provider [phone] Encounter Details Date Type Department Care Team (Late st Contact Info) Description 10/17/2020 Transcribed Document [facility] [place] [facility] [place] [address] ProviderJessenia MD [address] [place], [place] [id number] Social History Tobacco Use Types Packs/Day Years Used Date Smoking Tobacco: Never Assessed Comments Unknown Sex and Gender Information Value Date Recorded Sex Assigned at Not on file Legal Sex Female 4:28 PM CDT Gender Identity Not on file Sexual Orientation Not on file documented as of this encounter Miscellaneous Notes * Cerner Conversion Note - Jessenia ProviderMD - 10/17/2020 3:05 PM CDT Broset Violence Assessment Entered On: 10/17/2020 18:52 EDT Performed On: 10/17/2020 18:50 EDT by Oksana Rodriguez RN Broset Violence Assessment Broset Violence Checklist of Symptoms : None Broset Violence Symptoms Subtotal : 0 Broset Violence Symptoms Indicator : Low risk (0) Oksana Rodriguez RN - 10/17/2020 18:50 EDT documented in this encounter Plan of Treatment Not on file documented as of this encounter Visit Diagnoses Not on filedocumented in this encounter Care Teams Cloth Stock Sorter Relationship Specialty Start Date End Date Alan Beyer MD [address] [place] [address] PCP - General Family Medicine 06/08/23 documented as of this encounter
--- OUTSIDE RECORDS SUMMARY | 2024-11-27 14:52 | XMS_ITS | Encounter Summary ---
Author Organization [employer] ([place], [place], [place], [place]) Address [address] [place] [address] Care Team Providers Care Dictaphone Technician Name Role Phone Alan Beyer MD Primary Care Provider [phone] Encounter Details Date Type Department Care Team (Late st Contact Info) Description 09/14/2021 Transcribed Document [facility] [place] [address] [place] [address] ProviderJessenia MD [address] [place] [address] Social History Tobacco Use Types [...] Date Manny rded Speak language other than Kinyarwanda at home Not on file 05/23/2023 Want [...] Kikaner Conversion Note - Historical Provider, - 09/14/2021 12:35 PM CDT ED Assessment [...] BEDSIDE NON-EXEMPT - 09/14/2021 13:16 EDT Social History [...] 13:16 EDT Heart Sounds : S1/S2 VANDANA KHALIL RN-PATIENT CARE BEDSIDE NON-EXEMPT - 09/14/2021 13:16 EDT Gastrointestinal ED Gastrointestinal Assessment WDL : WDL with exceptions (Comment: Pt reports nausea [VANDANA KHALIL RN-PATIENT CARE BEDSIDE NON-EXEMPT - 09/14/2021 13:16 EDT] ) Gastrointestinal Symptoms : Nausea VANDANA KHALIL RN-PATIENT CARE BEDSIDE NON-EXEMPT - 09/14/2021 13:16 EDT Electronically signed by [facility], [facility] Conversion Monogram Maker Cerner at 08/31/2022 5:00 PM CDT documented in this encounter Plan of Treatment Not on file documented as of this encounter Visit Diagnoses Not on filedocumented in this encounter Care Teams Dictaphone Technician Relationship Specialty Start Date End Date Alan Beyer MD [address] [place] [address] PCP - General Family Medicine 06/08/23 documented as of this encounter
--- OUTSIDE RECORDS SUMMARY | 2024-11-27 14:52 | XMS_ITS | Encounter Summary ---
Author Organization [employer] ([place], [place], [place], [place]) Address [address] [place] [address] Care Team Providers Care Solvent Station Attendant Name Role Phone Alan Beyer MD Primary Care Provider [phone] Encounter Details Date Type Department Care Team (Late st Contact Info) Description 01/06/2019 Transcribed Document [facility] [place] [facility] [place] [address] ProviderJessenia MD [address] [place] [address] Social History Tobacco Use Types [...] Alvarez MD - 01/06/2019 1:08 PM CDT [place] [id number] CHARLINE BOND :1980 Visit Time:01/06/2019 Your Visit [...] up appointment Call in the AM Where: [address] [facility] [address] [place] [address]- Business (1) Follow Up with Patient Resource Center When Within As needed Comments Patient has a primary care physician with Jorge Luis Campbell. For assistance in the future with finding a new primary care physician please contact the Patient Resource Center at [phone]. Follow Up with JORGE LUIS CAMPBELL When Within 2 to 3 days Where: [address] [place] [address]- Business (1) Allergies Bactrim acetaminophen-oxyCODONE clindamycin Toradol baclofen doxycycline escitalopram fentaNYL lidocaine topical 2% gel meperidine morphine penicillin tetanus immune globulin Immunizations This Visit No Immunizations Found Medications What How Much When Instructions Next Dose New acetaminophen-hydrocodone ([place] 5 mg-325 mg oral tablet) 1 Tablet(s) [...] 07/27/2009 Document Revised: 04/24/2017 Document Reviewed: 04/24/2017 DearLocal Interactive Patient Education ?? 2019 [employer] Emergency Awareness and Preventative Care STROKE [...] Assistance with quitting is available by contacting 8-048-HPLO-NOW. This is a free resource providing counseling, [...] was given the opportunity to ask questions. Patient/Corner Former Name: Patient/Corner Former Signature: Relationship to Patient: Clinician/Hospital Corner Former Signature: Please Provide a Telephone Number Where You Can Be Reached: Is it Permissible To Leave a Message? Date: documented in this encounter Plan of Treatment Not on file documented as of this encounter Visit Diagnoses Not on filedocumented in this encounter Care Teams Solvent Station Attendant Relationship Specialty Start Date End Date Alan Beyer MD [address] [place] [address] PCP - General Family Medicine 06/08/23 documented as of this encounter
--- OUTSIDE RECORDS SUMMARY | 2024-11-27 14:52 | XMS_ITS | Encounter Summary ---
Author Organization [employer] ([place], [place], [place], [place]) Address [address] [place] [address] Care Team Providers Care Crutcher Helper Name Role Phone Alan Beyer MD Primary Care Provider [phone] Encounter Details Date Type Department Care Team (Late st Contact Info) Description 11/01/2020 Transcribed Document [facility] [place] [address] [place] [address] ProviderJessenia MD [address] [place] [id number] Social History Tobacco Use Types Packs/Day Years Used Date Smoking Tobacco: Never Assessed Comments Unknown Sex and Gender Information Value Date Recorded Sex Assigned at Not on file Legal Sex Female 4:28 PM CDT Gender Identity Not on file Sexual Orientation Not on file documented as of this encounter Miscellaneous Notes * Cerner Conversion Note - Jessenia ProviderMD - 11/01/2020 10:02 PM CDT Patient: CHARLINE [...] C/O RLQ pain X2 weeks, seen at [facility] and told she had ovarian cyst. + [...] today: Patient states she was seen at [facility] and was told she had a [...] Medical/ Family/ Social History Surgical history: Clavicle ([id number]). Tympanostomy ([id number]). Adenoids ([id number]). shoulder surgery. Gallbladder absent ([id number]). Tubal ligation ([id number]). Hysterectomy ([id number]). Right knee ([id number]). Comments: 05/03/2020 15:32 Jyoti Tilley Rn menisectomy. [...] EDT Height Source Measured Height Entry Format [place] Height/Length, GUAMANIAN (ft) 5 ft Height/Length GUAMANIAN 5 Inch CLINICALHEIGHT 165.1 cm [place] Body Weight 56.59 kg Weight Source, ED Standing scale Weight Entry Format [place] Weight Faroese lb 161 lb CLINICALWEIGHT 73.18 kg Body [...] Triage: ED C-SSRS: ED Clinical Reconciliation: ED ordering machine operator: Sodium Chloride 0.9% bolus: 1,000 mL, 1,000 [...] % 39.7 % Lymph # 2.43 K/uL [place] % 6.2 % Eagle # 0.38 K/uL Eos % 3.3 % Eos # 0.20 K/uL Baso % 0.7 % Baso # 0.04 K/uL Slide Review No IG# 0 x10(3)/uL IG% 0 % 11/01/2020 20:07 EDT Urine Type. U CleanCatch Urine Color Yellow Urine Appearance Clear Urine Specific [place] 1.008 Urine pH Dipstick 7.0 Urine Leukocyte Esterase Negative Urine Nitrite Negative Urine Protein Dipstick Negative Urine Glucose Dipstick Negative Urine Ketones Dipstick Negative Urine Urobilinogen Dipstick 0.2 EU/dL Urine Bilirubin Dipstick Negative mg/dL Urine Blood Dipstick Negative Urine Culture if Indicated Not Indicated , Interpretation Labs unremarkable, Normal results. Radiology results: Radiology Results (Last 48 hours) [id number] -- 11/01/2020 18:07 US Transvaginal Non Ob [...] 22:14 EDT, Discharge to: Home. Prescriptions: Prescription Optimization Analyst Pharmacy: diclofenac sodium 75 mg oral delayed release tablet (Prescribe): 1 Tab, Oral, BID, for 5 Day(s), 10 Tab, 0 Refill(s). Patient was given the following educational materials: Ovarian Cyst, [id number]-[id number]. Follow up with: RHIANNA MARTIN Within 2 to 3 days Appointment with your KENO WRITER. Take medications as directed. Stay home, wear your mask, and practice self distancing. Return to the ER if symptoms worsen or persist. The following medications have been prescribed to you today: Prescriptions (1) Active diclofenac sodium 75 mg oral delayed release tablet 75 mg = 1 Tab, DR Tab, BID, Oral, 5 Day(s), 10 Tab, 0 refill(s), [facility] . Counseled: Patient, Family, Regarding diagnosis, Regarding diagnostic results, Regarding treatment plan, Regarding prescription, Patient indicated understanding of instructions. documented in this encounter Plan of Treatment Not on file documented as of this encounter Visit Diagnoses Not on filedocumented in this encounter Care Teams Crutcher Helper Relationship Specialty Start Date End Date Alan Beyer MD [address] [place] [address] PCP - General Family Medicine 06/08/23 documented as of this encounter
--- OUTSIDE RECORDS SUMMARY | 2024-11-27 14:52 | XMS_ITS | Encounter Summary ---
Author Organization [employer] ([place], [place], [place], [place]) Address [address] [place] [address] Care Team Providers Care Superintendent Ammunition Storage Name Role Phone Alan Beyer MD Primary Care Provider [phone] Encounter Details Date Type Department Care Team (Late st Contact Info) Description 09/14/2021 Transcribed Document [facility] Family Medicine [address] [place] [address] ProviderJessenia MD [address] [place] [address] Social History Tobacco Use Types [...] Date Manny rded Speak language other than Turkish at home Not on file 05/23/2023 Want [...] Jordan Conversion Note - Historical Provider, - 09/14/2021 5:24 PM CDT [facility] [address] [place] [address] REFUGIO BOND :1980 Visit Time:09/14/2021 Your Visit Summary [...] Within 2 to 3 days Where: [address] [place] [address] Business (1) Follow Up with Follow up with primary care provider When Within 2 to 3 days Follow Up with Return to emergency department When Within As needed Comments Return if condition worsens, if you have increased pain, shortness of breath, fever, vomiting etc. Follow-up with your primary care physician and armature winder repair helper for further evaluation and management Follow Up with HEIDI VILLA When Within 2 to 3 days Comments Cardiology Where: [address] [place] [address]- Business (1) Allergies Bactrim acetaminophen-oxyCODONE [...] range between ( 1.0 and 7.0 ) Sargent #: 0.37 K/uL -- Normal range between ( 0.24 and 0.82 ) Eos #: 0.03 K/uL -- Normal range between ( 0.04 and 0.54 ) Sargent %: 5.0 % -- Normal range between [...] these instructions at home: Medicines ??? Take qfbn-flo-hhacyah and prescription medicines only as told by [...] provider. Document Revised: 10/31/2018 Document Reviewed: 10/31/2018 [employer]el Patient Education ?? 2020 [employer] Inc. Hypertension, Adult High blood pressure (hypertension) [...] provider. This is important. Medicines ??? Take pjot-cgw-xeoldpt and prescription medicines only as told by [...] Reviewed: 01/08/2019 Elsevier Patient Education ?? 2020 FirstRain. Emergency Awareness and Preventative Care STROKE is [...] Assistance with quitting is available by contacting 3-086-PRYYNOW. This is a free resource providing counseling, support, and referral. Or you may contact your personal physician. Standing Cloud Suicide Prevention Lifeline: The National Suicide Prevention [...] including: emergency, radiology, or pathology physicians. Patient Name:REFUGIO BOND DENIZ I have received this information and was given the opportunity to ask questions. Patient/Head Butler Name: Patient/Head Butler Signature: Relationship to Patient: Clinician/Hospital Head Butler Signature: Please Provide a Telephone Number Where You Can Be Reached: Is it Permissible To Leave a Message? Date: Electronically signed by Trevon Bhatia Conversion Automotive Collision Repair Instructor Cerner at 08/31/2022 5:01 PM CDT documented in this encounter Plan of Treatment Not on file documented as of this encounter Visit Diagnoses Not on filedocumented in this encounter Care Teams Superintendent Ammunition Storage Relationship Specialty Start Date End Date Alan Beyer MD [address] [place] [address] PCP - General Family Medicine 06/08/23 documented as of this encounter
--- OUTSIDE RECORDS SUMMARY | 2024-11-27 14:52 | XMS_ITS | Encounter Summary ---
Author Organization [employer] ([place], [place], [place], [place]) Address [address] [place] [address] Care Team Providers Care Dual Rate Dealer Name Role Phone Alan Beyer MD Primary Care Provider Encounter Details Date Type Department Care Team (Late st Contact Info) Description 01/06/2019 Transcribed Document [facility] Family Medicine [facility] [place] [address] ProviderJessenia MD [address], [place] [id number] Social History Tobacco Use Types Packs/Day Years [...] Performed On: 01/06/2019 13:36 EDT by Luis Choudhury, Outdoor Emergency Care Technician Process Patient Disposition : Discharge Personal Belongings With Patient : Yes Teaching Evaluation : Verbalizes understanding IV Discontinued : Not applicable IV Therapy Comment : Knee immobilizer placed with NV checks WNL and positive s/m noted verb and noted. Luis Choudhury, Rn - 01/06/2019 13:36 EDT Electronically signed by Jannette [facility] Conversion Office Worker Cerner at 08/31/2022 5:18 PM CDT documented in this encounter Plan of Treatment Not on file documented as of this encounter Visit Diagnoses Not on filedocumented in this encounter Care Teams Dual Rate Dealer Relationship Specialty Start Date End Date Alan Beyer MD [address] [place] [address] PCP - General Family Medicine 06/08/23 documented as of this encounter
--- OUTSIDE RECORDS SUMMARY | 2024-11-27 14:52 | XMS_ITS | Encounter Summary ---
Author Organization [employer] ([place], [place], [place], [place]) Address [address] [place] [address] Care Team Providers Care Machine Puller Name Role Phone Alan Beyer MD Primary Care Provider [phone] Encounter Details Date Type Department Care Team (Late st Contact Info) Description 10/17/2020 Transcribed Document [facility] [place] [facility] [place] [address] ProviderJessenia MD [address] [place] [address] Social History Tobacco Use Types Packs/Day [...] Alvarez MD - 10/17/2020 6:54 PM CDT [place] [id number] REFUGIO BOND :1980 Visit Time:10/17/2020 Your Visit Summary [...] for pain Duration: 5 Day(s) Pickup at [facility] 407 conjugated estrogens (Premarin) Vaginal Weekly [...] Oral Every Day fever blister Pharmacy Information [facility] 407: [address] [place], [place] [phone] The home medications listed are only as [...] range between ( 1.0 and 7.0 ) Calloway #: 0.44 K/uL -- Normal range between ( 0.24 and 0.82 ) Eos #: 0.16 K/uL -- Normal range between ( 0.04 and 0.54 ) Calloway %: 6.1 % -- Normal range between [...] ) Urine Bilirubin Dipstick: Negative Urine Specific [place]: 1.022 -- Normal range between ( 1.005 [...] these instructions at home: Medicines ??? Take dcbe-elp-cfpcvnc and prescription medicines only as told by [...] your condition for any changes. ??? Take vscx-civ-kdfwmfd and prescription medicines only as told by [...] provider. Document Revised: 09/08/2019 Document Reviewed: 09/08/2019 ElseJollyDeck Patient Education ?? 2020 Tistagames. Flank Pain, Adult Flank pain is pain [...] by your health care provider. ??? Take krfh-rva-zdydkez and prescription medicines only as told by [...] provider. Document Revised: 04/12/2018 Document Reviewed: 07/13/2017 Ohmconnect Patient Education ?? 2020 Tistagames. Emergency Awareness and Preventative Care STROKE is [...] Assistance with quitting is available by contacting 9-593-XKSD-NOW. This is a free resource providing counseling, [...] was given the opportunity to ask questions. Patient/Certified Adaptive Physical Educator Name: Patient/Certified Adaptive Physical Educator Signature: Relationship to Patient: Clinician/Hospital Certified Adaptive Physical Educator Signature: Please Provide a Telephone Number Where You Can Be Reached: Is it Permissible To Leave a Message? Date: documented in this encounter Plan of Treatment Not on file documented as of this encounter Visit Diagnoses Not on filedocumented in this encounter Care Teams Machine Puller Relationship Specialty Start Date End Date Alan Beyer MD [address] [place] [address] PCP - General Family Medicine 06/08/23 documented as of this encounter
--- OUTSIDE RECORDS SUMMARY | 2024-11-27 14:52 | XMS_ITS | Encounter Summary ---
Author Organization [employer] ([place], [place], [place], [place]) Address [address] [place] [address] Care Team Providers Care Rn Allergy Name Role Phone Alan Beyer MD Primary Care Provider [phone] Encounter Details Date Type Department Care Team (Late st Contact Info) Description 06/05/2018 Transcribed Document [facility] Family Medicine [address] [place] [address] ProviderJessenia MD [address] [place] [address] Social History Tobacco Use Types Packs/Day Years Used Date Smoking Tobacco: Never Assessed Comments Unknown Sex and Gender Information Value Date Recorded Sex Assigned at Not on file Legal Sex Female 4:28 PM CDT Gender Identity Not on file Sexual Orientation Not on file documented as of this encounter Miscellaneous Notes * Cerner Conversion Note - Historical ProviderMD - 06/05/2018 5:00 PM MOTOR SCOOTER REPAIRER Chart Check - Review Order Profile Entered On: 06/05/2018 15:44 EST Performed On: 06/05/2018 15:44 EST by Shala Perez Rn Chart Check Chart Reviewed Date and Time : 06/05/2018 15:44 EST Powerplans Initiated/Discontinued as Appropriate : Yes All Active Orders Reviewed : Yes Shala Perez Rn - 06/05/2018 15:44 EST Electronically signed by Jannette [facility] Conversion Audio Director Cerner at 08/31/2022 5:07 PM CDT documented in this encounter Plan of Treatment Not on file documented as of this encounter Visit Diagnoses Not on filedocumented in this encounter Care Teams Rn Allergy Relationship Specialty Start Date End Date Alan Beyer MD [address] [place] [address] PCP - General Family Medicine 06/08/23 documented as of this encounter
--- OUTSIDE RECORDS SUMMARY | 2024-11-27 14:52 | XMS_ITS | Encounter Summary ---
Author Organization [employer] ([place], [place], [place], [place]) Address [address] [place] [address] Care Team Providers Care Direct Sales Consultant Name Role Phone Alan Beyer MD Primary Care Provider [phone] Encounter Details Date Type Department Care Team (Late st Contact Info) Description 06/05/2018 Transcribed Document [facility] Family Medicine [address] [place] [address] ProviderJessenia MD [address] [place] [id number] Social History Tobacco Use Types Packs/Day Years Used Date Smoking Tobacco: Never Assessed Comments Unknown Sex and Gender Information Value Date Recorded Sex Assigned at Not on file Legal Sex Female 4:28 PM CDT Gender Identity Not on file Sexual Orientation Not on file documented as of this encounter Miscellaneous Notes * Cerner Conversion Note - Jessenia ProviderMD - 06/05/2018 12:43 PM MOTHERS HELPER Pain Assessment Entered On: 06/06/2018 2:46 EST [...] filedocumented in this encounter Care Teams Direct Sales Consultant Relationship Specialty Start Date End Date Alan Beyer MD [address] [place] [address] PCP - General Family Medicine 06/08/23 documented as of this encounter
--- OUTSIDE RECORDS SUMMARY | 2024-11-27 14:52 | XMS_ITS | Encounter Summary ---
Author Organization [employer] ([place], [place], [place], [place]) Address [address] [place] [address] Care Team Providers Care Silk Washing Machine Operator Name Role Phone Alan Beyer MD Primary Care Provider [phone] Encounter Details Date Type Department Care Team (Late st Contact Info) Description 06/05/2018 Transcribed Document [facility] [place] Family Medicine [address] [place] [address] ProviderJessenia MD [address] [place], [place] [phone] Social History Tobacco Use Types Packs/Day Years Used Date Smoking Tobacco: Never Assessed Comments Unknown Sex and Gender Information Value Date Recorded Sex Assigned at Not on file Legal Sex Female 4:28 PM CDT Gender Identity Not on file Sexual Orientation Not on file documented as of this encounter Miscellaneous Notes * Cerner Conversion Note - Historical ProviderMD - 06/05/2018 11:45 AM CHROMIUM PLATER E Main OR IntraOp Summary Primary Physician: DORIS BRANCH DO Finalized Date/Time: 06/05/18 12:42:19 Pt. Name: REFUGIO BOND DENIZ /Sex: 1980 Female Med Rec #: [id number] Physician: DORIS BRANCH DO Financial #: [id number] Pt. Type: O Room/Bed: [facility]/ Admit/Disch: 06/05/18 04:59:00 - Institution: [facility] IntraOp Case Attendance Entry 1 Entry 2 Entry 3 Case Attendee DORIS BRANCH DO BROWNING, JANICE R, HEATING REPAIR TECHNICIAN JUANA GRACE, WINNIE Role Performed Surgeon/Proceduralist, HEATING REPAIR TECHNICIAN/Nurse Director Sales Training Physician catering assistant First Time In 06/05/18 11:22:00 06/05/18 11:22:00 06/05/18 11:22:00 Time Out 06/05/18 12:51:00 06/05/18 12:51:00 06/05/18 12:51:00 Procedure Vaginal Hysterectomy Vaginal Hysterectomy Vaginal Hysterectomy Laparoscopic Roboti Laparoscopic Roboti Laparoscopic Roboti Other Attendee Superficial Wound Closed By: Last Modified By: Lizzeth Viramontes, Lizzeth Viramontes, Lizzeth Viramontes, RN 06/05/18 12:42:09 RN 06/05/18 12:42:09 RN 06/05/18 12:42:09 Entry 4 Entry 5 Entry 6 Case Attendee Lizzeth Viramontes Brock, Deanna Hall, Marvin, supervisor steffen house Guest Relations Officer Role Performed Fireboat Operator, First Scrub, First Scrub, Second Time In [...] Luana Mireles, Carine Cage, RN Role Performed Guest Relations Officer, Ancillary Fireboat Operator, First Time In 06/05/18 11:22:00 06/05/18 12:16:00 Time Out 06/05/18 12:51:00 06/05/18 12:51:00 Procedure Vaginal Hysterectomy Vaginal Hysterectomy Laparoscopic Roboti Laparoscopic Roboti Other Attendee LUNCH RELIEF Superficial Wound Closed By: Last Modified By: Lizzeth Viramontes Gillenwater, Cheryl B, RN 06/05/18 12:42:09 RN 06/05/18 12:42:09 [facility] IntraOp Case Attendance Audit 06/05/18 12:42:09 Satellite Dish Technician: RAMIN Modifier: GILLECB 1 <+> Time Out [...] Procedure Vaginal Hysterectomy Laparoscopic Roboti 06/05/18 12:17:26 Satellite Dish Technician: RAMIN Modifier: GILLECB 1 <*> Procedure Vaginal [...] Procedure <+> 8 Other Attendee 06/05/18 12:02:17 Satellite Dish Technician: RAMIN Modifier: GILLECB 1 <*> Procedure Vaginal [...] [facility] IntraOp Case Times Audit 06/05/18 12:42:07 Satellite Dish Technician: RAMIN Modifier: GILLECB <+> 1 Out Room Time <+> 1 Stop Time <+> 1 Stop Time 06/05/18 11:45:34 Satellite Dish Technician: RAMIN Modifier: GILLECB <+> 1 Start Time SJE [...] Sher Deanna (Scrub) Count Performed By Lizzeth Viramontes, Lizzeth Viramontes, (RN) RN RN Last Modified By: Lizzeth Viramontes, Lizzeth Viramontes RN 06/05/18 12:03:53 RN 06/05/18 12:03:53 [facility] IntraOp Counts Final Entry 1 Procedure Vaginal Hysterectomy Laparoscopic Roboti Final Count Info Count Type Sponge, Sharps, Miscellaneous Counts Verification Skin Closure/end of Sequence procedure Count Results Correct, surgeon notified Counts Performed By Count Performed By Shivam Mojica, Surgical (Scrub) Guest Relations Officer Count Performed By Carine Grady RN (RN) Last Modified By: Lizzeth Viramontes RN 06/05/18 12:33:38 [facility] IntraOp Counts Final Audit 06/05/18 12:33:38 Satellite Dish Technician: RAMIN Modifier: PETEECB 1 <*> Procedure Vaginal Hysterectomy Laparoscopic Roboti 1 <*> Count Performed By (Scrub) Vero Sher 1 <*> Count Performed By (RN) Shivam Mojica, Certified Emergency Vehicle Technician 1 <+> Counts Verification Sequence S[facility] IntraOp [...] RN 06/05/18 12:04:54 S[facility] IntraOp General Case Linux Kernel Developer 1 Case Information OR OR 04 SJE [...] 0.5% w/ epinephrine 1:200,000 30ml vial - [id number] Route of LOCAL Administration Dose Dose 30 [...] CARMONA CRNA, Lizzeth Viramontes RN, DORIS BRANCH DO, ARVIN, CHRIS L, PA-C Position Verified Positioning Yes [...] Intra Op Sign Out Audit 06/05/18 12:41:57 Satellite Dish Technician: RAMIN Modifier: RAMIN 1 <*> RN Sign [...] SJE IntraOp Surgical Procedures Audit 06/05/18 12:42:13 Satellite Dish Technician: GILLECB Modifier: GILLECB <+> 1 Stop 06/05/18 12:30:47 Satellite Dish Technician: PETEECB Modifier: GILLECB 1 <*> Procedure Vaginal Hysterectomy [...] on filedocumented in this encounter Care Teams Silk Washing Machine Operator Relationship Specialty Start Date End Date Alan Beyer MD [address] [place], [place] [address] PCP - General Family Medicine 06/08/23 documented as of this encounter
--- OUTSIDE RECORDS SUMMARY | 2024-11-27 14:52 | XMS_ITS | Encounter Summary ---
Author Organization [employer] ([place], [place], [place], [place]) Address [address] [place] [address] Care Team Providers Care Drapery Examiner Name Role Phone Alan Beyer MD Primary Care Provider [phone] Encounter Details Date Type Department Care Team (Late st Contact Info) Description 10/17/2020 Transcribed Document [facility] [place] [facility] [place] [address] ProviderJessenia MD [address] [place] [id number] Social History Tobacco Use Types Packs/Day Years [...] ProviderMD - 10/17/2020 3:05 PM CDT ED Triage [...] : 3 - Urgent Tracking Group : [facility] [place] SHEILA LOPEZ RN - 10/17/2020 15:06 EDT [...] ; Severity: Severe ; Updated By: Talia aEson RN; Reviewed Date: 10/17/2020 15:06 EDT doxycycline [...] 10/17/2020 15:09:31 EDT) Problems(Active) Anxiety (SNOMED CT :75087675 ) Name of Problem: Anxiety ; Recorder: ERICKA ISSA RN; Confirmation: Confirmed ; Classification: Medical ; Code: [id number] ; Contributor System: PowerChart ; Last Updated: 07/26/2015 22:28 EDT ; Life Cycle Date: 07/26/2015 ; Life Cycle Status: Active ; Vocabulary: SNOMED CT Endometriosis, vagina (SNOMED CT :05251195 ) Name of Problem: Endometriosis, vagina ; Recorder: Breanna Ivey RN; Confirmation: Confirmed ; Classification: Medical ; Code: 69739097 ; Contributor System: PowerChart ; Last Updated: 05/24/2018 10:54 EST ; Life Cycle Date: 05/24/2018 ; Life Cycle Status: Active ; Vocabulary: SNOMED CT Kidney stones (SNOMED CT :567718722 ) Name of Problem: Kidney stones ; Recorder: KAYY ANDREW; Confirmation: Confirmed ; Classification: Medical ; Code: [id number] ; Contributor System: PowerChart ; Last Updated: 06/06/2016 9:30 EST ; Life Cycle Date: 06/06/2016 ; Life Cycle Status: Active ; Vocabulary: SNOMED CT Migraine (SNOMED CT :37599487 ) Name of Problem: Migraine ; Recorder: ERICKA ISSA RN; Confirmation: Confirmed ; Classification: Medical ; Code: 13383305 ; Contributor System: [employer] CorporationChart ; Last Updated: 07/26/2015 22:28 EDT ; Life Cycle Date: 07/26/2015 ; Life Cycle Status: Active ; Vocabulary: SNOMED CT S/P hysterectomy (SNOMED CT :494922664 ) Name of Problem: S/P hysterectomy ; Recorder: LEONID CASTANEDA RN; Confirmation: Confirmed ; Classification: Medical ; Code: 271074012 ; Contributor System: PowerChart ; Last Updated: 11/06/2019 20:08 EDT ; Life Cycle Date: 11/06/2019 ; Life Cycle Status: Active ; Vocabulary: SNOMED CT Shoulder pain, left (SNOMED CT :68128979 ) Name of Problem: Shoulder pain, left ; Recorder: Breanna Ivey RN; Confirmation: Confirmed ; Classification: Medical ; Code: 83054595 ; Contributor System: [employer]Chart ; Last Updated: 05/24/2018 10:53 EST ; Life Cycle Date: 05/24/2018 ; Life Cycle Status: Active ; Vocabulary: SNOMED CT Diagnoses(Active) Flank pain Date: 10/17/2020 ; Diagnosis Type: Reason For Visit ; Confirmation: Complaint of ; Clinical Dx: Flank pain ; Classification: Medical ; Clinical Service: Emergency medicine ; Code: PNED ; Probability: 0 ; Diagnosis Code: [id number] ED Height and Weight Height Source : Stated Height Entry Format : [place] Height, Feet : 5 ft(Converted to: 152 cm, 60 Inch) Height, Inches : 5 Inch(Converted to: 0 ft 5 Inch, 12.70 cm) Clinical Height : 165.1 cm Weight Source, ED : Critical estimated dosing weight Weight Entry Format : [place] Weight, Pounds : 162.7 lb Clinical Dosing Weight : 73.95 kg Body Surface Area (BSA) : 1.81 m2 Body Mass Index : 27.1 kg/m2 (HI) [place] Body Weight (IBW) : 56.59 kg SHEILA LOPEZ RN - 10/17/2020 15:06 EDT Electronically signed by [facility], [facility] Conversion Photographer Cerner at 08/31/2022 5:20 PM CDT documented in this encounter Plan of Treatment Not on file documented as of this encounter Visit Diagnoses Not on filedocumented in this encounter Care Teams Drapery Examiner Relationship Specialty Start Date End Date Alan Beyer MD [address] [place] [address] PCP - General Family Medicine 06/08/23 documented as of this encounter
--- OUTSIDE RECORDS SUMMARY | 2024-11-27 14:53 | XMS_ITS | Encounter Summary ---
Author Organization [employer] ([place], [place], [place], [place]) Address [address] [place] [address] Care Team Providers Care Turbine Subassembler Name Role Phone Alan Beyer MD Primary Care Provider [phone] Encounter Details Date Type Department Care Team (Late st Contact Info) Description 01/06/2019 Transcribed Document [facility] [place] [address] [place] [address] ProviderJessenia MD [address] [place], [place] [address] Social History Tobacco Use Types Packs/Day Years Used Date Smoking Tobacco: Never Assessed Comments Unknown Sex and Gender Information Value Date Recorded Sex Assigned at Not on file Legal Sex Female 4:28 PM CDT Gender Identity Not on file Sexual Orientation Not on file documented as of this encounter Miscellaneous Notes * Cerner Conversion Note - Jessenia ProviderMD - 01/06/2019 1:03 PM CDT Electronically signed by Jannette [facility] Conversion Breaker Up Cerner at 08/31/2022 5:14 PM CDT documented in this encounter Plan of Treatment Not on file documented as of this encounter Visit Diagnoses Not on filedocumented in this encounter Care Teams Turbine Subassembler Relationship Specialty Start Date End Date Alan Beyer MD [address] [place] [address] PCP - General Family Medicine 06/08/23 documented as of this encounter
--- OUTSIDE RECORDS SUMMARY | 2024-11-27 14:53 | XMS_ITS | Encounter Summary ---
Author Organization [employer] ([place], [place], [place], [place]) Address [address] [place] [address] Care Team Providers Care Textile Worker Name Role Phone Alan Beyer MD Primary Care Provider [phone] Encounter Details Date Type Department Care Team (Late st Contact Info) Description 06/05/2018 Transcribed Document [facility] [place] Family [facility] [place] [address] ProviderJessenia MD [address] [place], [place] [address] Social History Tobacco Use Types Packs/Day Years Used Date Smoking Tobacco: Never Assessed Comments Unknown Sex and Gender Information Value Date Recorded Sex Assigned at Not on file Legal Sex Female 4:28 PM CDT Gender Identity Not on file Sexual Orientation Not on file documented as of this encounter Miscellaneous Notes * Cerner Conversion Note - Jessenia Alvarez MD - 06/05/2018 12:43 PM OFFICER CAPTAIN DATE OF PROCEDURE: PREOPERATIVE DIAGNOSIS(ES): 1. History of endometriosis. 2. Pelvic pain. 3. Left lower quadrant pain. 4. History of recurrent ovarian cyst. 5. Dysmenorrhea. 6. Dyspareunia. 7. Cystocele. POSTOPERATIVE DIAGNOSIS(ES): PROCEDURE: 1. Robotic assisted vaginal hysterectomy with left salpingo-oophorectomy. 2. Paravaginal repair. 3. Uterosacral vault suspension. 4. Fulguration of endometriosis. SURGEON: Benito Lozano DO DEVELOPMENTAL MATHEMATICS PROFESSOR: MARY Peraza ESTIMATED BLOOD LOSS: Minimal. COMPLICATIONS: [...] on filedocumented in this encounter Care Teams Textile Worker Relationship Specialty Start Date End Date Alan Beyer MD [address] [place] [address] PCP - General Family Medicine 06/08/23 documented as of this encounter
--- OUTSIDE RECORDS SUMMARY | 2024-11-27 14:54 | XMS_ITS | Encounter Summary ---
Author Organization [employer] ([place], [place], [place], [place]) Address [address] [place] [address] Care Team Providers Care Pairer Name Role Phone Alan Beyer MD Primary Care Provider [phone] Encounter Details Date Type Department Care Team (Late st Contact Info) Description 09/14/2021 Transcribed Document [facility] [place] Family Medicine [address] [place] [address] ProviderJessenia MD [address] [place] [address] Social History Tobacco Use Types [...] Conversion Note - Historical Provider, - 09/14/2021 12:53 PM CDT Patient: REFUGIO BOND Age: 40 years Sex: [...] reports taking 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 . History of Present [...] Neurological: migraine. Psychiatric: anxiety. Surgical history: Clavicle ([id number]). Tympanostomy ([id number]). Adenoids (134504345). shoulder surgery. Gallbladder absent (443028691). Tubal ligation (214048093). Hysterectomy (947805991). Right knee ([id number]). Comments: 05/03/2020 15:32 Jyoti Tilley Rn menisectomy, [...] EDT Height Source Stated Height Entry Format [place] Height/Length, LITHUANIAN (ft) 5 ft Height/Length LITHUANIAN 5 Inch CLINICALHEIGHT 165.1 cm Type of Weight Measurement. [place] Weight, est lb 170 lb Estimated Clinical Dosing Weight 77.27 kg [place] Body Weight 56.59 kg Weight Source, ED [...] 96, normal sinus rhythm, no ectopy, normal [place] & QRS intervals, EP Interp, Nonspecific ST abnormality. Electrocardiogram: Time 09/14/2021 15:51:00, rate 83, normal sinus rhythm, no ectopy, normal [place] & QRS intervals, EP Interp. Results review: [...] % 26.6 % Lymph # 1.95 K/uL [place] % 5.0 % [place] # 0.37 K/uL Eos % 0.4 % [...] Radiology results: Radiology Results (Last 48 hours) [id number] -- 09/14/2021 12:35 CR Chest 1 Vw [...] Follow-up with your primary care physician and full fashioned garment knitter for further evaluation and management; Follow up with primary care provider Within 2 to 3 days; [facility] (Find a Doc) Within 2 to 3 days. Counseled: Patient, Family, Regarding diagnosis, Regarding diagnostic results, Regarding treatment plan, Regarding prescription, Patient indicated understanding of instructions. documented in this encounter Plan of Treatment Not on file documented as of this encounter Visit Diagnoses Not on filedocumented in this encounter Care Teams Pairer Relationship Specialty Start Date End Date Alan Beyer MD [address] [place] [address] PCP - General Family Medicine 06/08/23 documented as of this encounter
--- OUTSIDE RECORDS SUMMARY | 2024-11-27 14:54 | XMS_ITS | Encounter Summary ---
Author Organization [employer] ([place], [place], [place], [place]) Address [address] [place] [address] Care Team Providers Care Trencher Driver Name Role Phone Alan Beyer MD Primary Care Provider [phone] Encounter Details Date Type Department Care Team (Late st Contact Info) Description 11/01/2020 Transcribed Document [facility] [place] Family [place] [facility] [place] [address] ProviderJessenia MD [address] [place] [address] Social History Tobacco Use Types Packs/Day [...] Alvarez MD - 11/01/2020 10:55 PM CDT [place] [id number] CHARLINE BOND :1980 Visit Time:11/01/2020 Your Visit [...] to 3 days Comments Appointment with your MICROFILM PROCESSOR. Take medications as directed. Stay home, wear your mask, and practice self distancing. Return to the ER if symptoms worsen or persist. The following medications have been prescribed to you today: Prescriptions (1) Active diclofenac sodium 75 mg oral delayed release tablet 75 mg = 1 Tab, DR Tab, BID, Oral, 5 Day(s), 10 Tab, 0 refill(s), Route to Pharmacy Electronically, [facility] [address] Where: [address] [place] [address]- Business (1) Allergies Bactrim acetaminophen-oxyCODONE clindamycin Toradol baclofen doxycycline escitalopram fentaNYL lidocaine topical 2% gel meperidine morphine penicillin (Hives) tetanus immune globulin Immunizations This Visit No Immunizations Found Medications What How Much When Instructions Next Dose diclofenac (diclofenac sodium 75 mg oral delayed release tablet) 1 Tablet(s) Oral Two Times A Day Duration: 5 Day(s) Pickup at [facility] [address] conjugated estrogens (Premarin) Vaginal Weekly cream fexofenadine [...] blister Pharmacy Information [facility]: [address] [place], [place] [id number] [phone] The home medications listed are only as [...] range between ( 1.0 and 7.0 ) [place] #: 0.38 K/uL -- Normal range between ( 0.24 and 0.82 ) Eos #: 0.20 K/uL -- Normal range between ( 0.04 and 0.54 ) [place] %: 6.2 % -- Normal range between [...] Urine Bilirubin Dipstick: Negative mg/dL Urine Specific [place]: 1.008 -- Normal range between ( 1.005 [...] Follow these instructions at home: ??? Take znft-hnn-uhgbncd and prescription medicines only as told by [...] provider. Document Revised: 04/12/2018 Document Reviewed: 10/01/2016 Elsevier Patient Education ?? 2020 [employer] Emergency Awareness and Preventative Care STROKE [...] Assistance with quitting is available by contacting 8-119-CNET-NOW. This is a free resource providing counseling, [...] was given the opportunity to ask questions. Patient/Test Lead Name: Patient/Test Lead Signature: Relationship to Patient: Clinician/Hospital Test Lead Signature: Please Provide a Telephone Number Where You Can Be Reached: Is it Permissible To Leave a Message? Date: Electronically signed by Jannette, [facility] Conversion Utility Worker Forge Cerner at 08/31/2022 4:58 PM CDT documented in this encounter Plan of Treatment Not on file documented as of this encounter Visit Diagnoses Not on filedocumented in this encounter Care Teams Trencher Driver Relationship Specialty Start Date End Date Alan Beyer MD [address] [place] [address] PCP - General Family Medicine 06/08/23 documented as of this encounter
--- OUTSIDE RECORDS SUMMARY | 2024-11-27 14:54 | XMS_ITS | Encounter Summary ---
Author Organization [employer] ([place], [place], [place], [place]) Address [address] [place] [address] Care Team Providers Care Airport Attendant Name Role Phone Alan Beyer MD Primary Care Provider [phone] Encounter Details Date Type Department Care Team (Late st Contact Info) Description 02/02/2019 Transcribed Document [facility] [place] Family Medicine [address] [place] [address] ProviderJessenia MD [address] [place] [address] Social History Tobacco Use Types Packs/Day Years [...] on filedocumented in this encounter Care Teams Airport Attendant Relationship Specialty Start Date End Date Alan Beyer MD [address] [place] [address] PCP - General Family Medicine 06/08/23 documented as of this encounter
--- OUTSIDE RECORDS SUMMARY | 2024-11-27 14:54 | XMS_ITS | Encounter Summary ---
Author Organization [employer] ([place], [place], [place], [place]) Address [address] [place] [address] Care Team Providers Care Applied Researcher Name Role Phone Alan Beyer MD Primary Care Provider [phone] Encounter Details Date Type Department Care Team (Late st Contact Info) Description 12/23/2020 Transcribed Document [facility] Family Medicine [facility] [place] [address] ProviderJessenia MD [address] [place], [place] [address] Social History Tobacco Use Types Packs/Day Years [...] 12/23/2020 1:50 PM CDT Electronically signed by [employer], [facility] Conversion Ream Cutter Cerner at 08/31/2022 5:10 PM CDT documented in this encounter Plan of Treatment Not on file documented as of this encounter Visit Diagnoses Not on filedocumented in this encounter Care Teams Applied Researcher Relationship Specialty Start Date End Date Alan Beyer MD [address] [place] [address] PCP - General Family Medicine 06/08/23 documented as of this encounter
--- OUTSIDE RECORDS SUMMARY | 2024-11-27 14:55 | XMS_ITS | Encounter Summary ---
Author Organization [employer] ([place], [place], [place], [place]) Address [address] [place] [address] Care Team Providers Care Line Pilot Name Role Phone Alan Beyer MD Primary Care Provider [phone] Encounter Details Date Type Department Care Team (Late st Contact Info) Description 11/01/2020 Transcribed Document [facility] [place] [facility] [place] [address] ProviderJessenia MD [address] [place], [place] [address] Social History Tobacco Use Types Packs/Day Years Used Date Smoking Tobacco: Never Assessed Comments Unknown Sex and Gender Information Value Date Recorded Sex Assigned at Not on file Legal Sex Female 4:28 PM CDT Gender Identity Not on file Sexual Orientation Not on file documented as of this encounter Miscellaneous Notes * Cerner Conversion Note - Jessenia ProviderMD - 11/01/2020 6:07 PM CDT ED Assessment Entered On: 11/01/2020 21:05 EDT Performed On: 11/01/2020 20:45 EDT by MITCH CRANE RN ED Quick Look Assessment Level of Consciousness : Alert, Awake Affect/Behavior : Appropriate, Calm, Cooperative Orientation : Oriented x 4 Skin Temperature : Warm Skin Description : Dry, [place] MITCH CRANE RN - 11/01/2020 21:03 EDT ED General-Functional Assess Information Obtained From : Patient Preferred Communication Mode : Verbal Communication Barrier : None Primary Language : Citizen Of [place] Any Spiritual/Cultural Needs or Requests : No [...] MITCH CRANE RN - 11/01/2020 21:03 EDT Electronically signed by Trevon Bhatia Conversion Machine Featheredger And Reducer Cerner at 08/31/2022 5:09 PM CDT documented in this encounter Plan of Treatment Not on file documented as of this encounter Visit Diagnoses Not on filedocumented in this encounter Care Teams Line Pilot Relationship Specialty Start Date End Date Alan Beyer MD [address] [place] [address] PCP - General Family Medicine 06/08/23 documented as of this encounter
--- OUTSIDE RECORDS SUMMARY | 2024-11-27 14:55 | XMS_ITS | Encounter Summary ---
Author Organization [employer] ([place], [place], [place], [place]) Address [address] [place] [address] Care Team Providers Care Director Channel Name Role Phone Alan Beyer MD Primary Care Provider Encounter Details Date Type Department Care Team (Late st Contact Info) Description 11/01/2020 Transcribed Document [facility] [place] [facility] [place] [address] ProviderJessenia MD [address] [place], [place] [id number] Social History Tobacco Use Types Packs/Day Years Used Date Smoking Tobacco: Never Assessed Comments Unknown Sex and Gender Information Value Date Recorded Sex Assigned at Not on file Legal Sex Female 4:28 PM CDT Gender Identity Not on file Sexual Orientation Not on file documented as of this encounter Miscellaneous Notes * Cerner Conversion Note - Jessenia ProviderMD - 11/01/2020 6:07 PM CDT [place] Violence Assessment Entered On: 11/01/2020 21:03 EDT Performed On: 11/01/2020 20:45 EDT by MITCH CRANE, RN Broset Violence Assessment [place] Violence Checklist of Symptoms : None Bro[place] Violence Symptoms Subtotal : 0 Bro[place] Violence Symptoms Indicator : Low risk (0) MITCH CRANE RN - 11/01/2020 21:03 EDT Electronically signed by Trevon Bhatia Conversion Pmp Certified Project Manager Cerner at 08/31/2022 5:07 PM CDT documented in this encounter Plan of Treatment Not on file documented as of this encounter Visit Diagnoses Not on filedocumented in this encounter Care Teams Director Channel Relationship Specialty Start Date End Date Alan Beyer MD [address] [place] [address] PCP - General Family Medicine 06/08/23 documented as of this encounter
--- OUTSIDE RECORDS SUMMARY | 2024-11-27 14:55 | XMS_ITS | Encounter Summary ---
Author Organization [employer] ([place], [place], [place], [place]) Address [address] [place] [address] Care Team Providers Care Vocal Music Teacher Name Role Phone Alan Beyer MD Primary Care Provider [phone] Encounter Details Date Type Department Care Team (Late st Contact Info) Description 01/06/2019 Transcribed Document [facility] Radiology [address] [place] [address] Yomi Harvey MD [address] [place] [address] Dept. [place] [address] Social History Tobacco Use Types [...] Neurological: migraine. Psychiatric: anxiety. Surgical history: Clavicle (185437033). Tympanostomy (1232267185). Adenoids (227626589). shoulder surgery. Gallbladder absent (183718512). Tubal ligation (963261046). Hysterectomy (365963775).. Family history: No family history items have [...] EDT Height Source Stated Height Entry Format [place] Height/Length, ISRAELI (ft) 5 ft Height/Length [place]RA[place]I 5 Inch CLINICALHEIGHT 165.1 cm [place] Body Weight 56.59 kg Weight Source, ED Standing scale Weight Entry Format [place] Weight Lebanese lb 160 lb CLINICALWEIGHT 72.73 kg Body [...] 13:01 EDT, Discharge to: Home. Prescriptions: Prescription Network Liaison Pharmacy: [facility] 5 mg-325 mg oral tablet (Prescribe): 1 Tab, Oral, Q6H, for 2 Day(s), not to exceed 8 tablets/day, PRN: for pain, 8 Tab, 0 Refill(s). Patient was given the following educational materials: Knee Pain, Adult, Tugq-im-Nntq. Follow up with: Patient Resource Center Within As needed Patient has a primary care physician with [facility]. For assistance in the future with finding a new primary care physician please contact the Patient Resource Center at [phone].; [facility] Within 2 to 3 [...] on filedocumented in this encounter Care Teams Vocal Music Teacher Relationship Specialty Start Date End Date Alan Beyer MD [address] [place] [address] PCP - General Family Medicine 06/08/23 documented as of this encounter
--- OUTSIDE RECORDS SUMMARY | 2024-11-27 14:55 | XMS_ITS | Encounter Summary ---
Author Organization [employer] ([place], [place], [place], [place]) Address [address] [place] [address] Care Team Providers Care Behavioral Health Care Coordinator Name Role Phone Alan Beyer MD Primary Care Provider [phone] Encounter Details Date Type Department Care Team (Late st Contact Info) Description 11/01/2020 Transcribed Document [facility] [place] [facility] [place] [address] ProviderJessenia MD [address] [place], [place] [address] Social History Tobacco Use Types Packs/Day Years Used Date Smoking Tobacco: Never Assessed Comments Unknown Sex and Gender Information Value Date Recorded Sex Assigned at Not on file Legal Sex Female 4:28 PM CDT Gender Identity Not on file Sexual Orientation Not on file documented as of this encounter Miscellaneous Notes * Cerner Conversion Note - Jessenia ProviderMD - 11/01/2020 6:07 PM CDT [place] Suicide Severity Rating Scale (C-SSRS) Entered On: 11/01/2020 21:03 EDT Performed On: 11/01/2020 20:45 EDT by MITCH CRANE RN [place] Suicide Severity Rating Scale (C-SSRS) CSSRS Past Month Wish to be : No CSSRS Past Month Suicidal Thoughts : No CSSRS Lifetime Suicide Behavior : No Suicide Severity Rating Score : 0 Suicide Severity Rating : No Additional Care Required at this time MITCH CRANE RN - 11/01/2020 21:03 EDT Electronically signed by Jannette [facility] Conversion Inspector Finishing Cerner at 08/31/2022 5:05 PM CDT documented in this encounter Plan of Treatment Not on file documented as of this encounter Visit Diagnoses Not on filedocumented in this encounter Care Teams Behavioral Health Care Coordinator Relationship Specialty Start Date End Date Alan Beyer MD [address] [place], [place] [id number] PCP - General Family Medicine 06/08/23 documented as of this encounter
--- OUTSIDE RECORDS SUMMARY | 2024-11-27 14:55 | XMS_ITS | Encounter Summary ---
Author Organization [employer] ([place], [place], [place], [place]) Address [address] [place] [address] Care Team Providers Care Medical Assistant Dermatology Name Role Phone Alan Beyer MD Primary Care Provider [phone] Encounter Details Date Type Department Care Team (Late st Contact Info) Description 11/01/2020 Transcribed Document [facility] [place] [facility] [place] [address] ProviderJessenia MD [address] [place], [place] [id number] Social History Tobacco Use Types Packs/Day Years [...] ProviderMD - 11/01/2020 6:07 PM CDT ED Triage Entered On: 11/01/2020 18:36 EDT Performed On: 11/01/2020 18:33 EDT by Karie Goodwin, FUR FINISHER SEAMSTRESS Triage Across the Room Chief Complaint : Pt C/O RLQ pain X2 weeks, seen at [facility] and told she had ovarian cyst. + nausea Triage Date/Time : 11/01/2020 18:33 EDT Karie Goodwin RN - 11/01/2020 18:33 EDT DCP GENERIC CODE Tracking Acuity : 3 - Urgent Tracking Group : [facility] [place] Karie Goodwin RN [...] 11/01/2020 18:36:01 EDT) Problems(Active) Anxiety (SNOMED CT :84975618 ) Name of Problem: Anxiety ; Recorder: ERICKA ISSA RN; Confirmation: Confirmed ; Classification: Medical ; Code: [id number] ; Contributor System: PowerChart ; Last Updated: 07/26/2015 22:28 EDT ; Life Cycle Date: 07/26/2015 ; Life Cycle Status: Active ; Vocabulary: SNOMED CT Endometriosis, vagina (SNOMED CT :08163456 ) Name of Problem: Endometriosis, vagina ; Recorder: Breanna Ivey RN; Confirmation: Confirmed ; Classification: Medical ; Code: 42359368 ; Contributor System: PowerChart ; Last Updated: 05/24/2018 10:54 EST ; Life Cycle Date: 05/24/2018 ; Life Cycle Status: Active ; Vocabulary: SNOMED CT Kidney stones (SNOMED CT :004554670 ) Name of Problem: Kidney stones ; Recorder: KAYY ANDREW; Confirmation: Confirmed ; Classification: Medical ; Code: 565242747 ; Contributor System: [employer] ; Last Updated: 06/06/2016 9:30 EST ; Life Cycle Date: 06/06/2016 ; Life Cycle Status: Active ; Vocabulary: SNOMED CT Migraine (SNOMED CT :37079021 ) Name of Problem: Migraine ; Recorder: ERICKA ISSA RN; Confirmation: Confirmed ; Classification: Medical ; Code: 41720845 ; Contributor System: PowerChart ; Last Updated: 07/26/2015 22:28 EDT ; Life Cycle Date: 07/26/2015 ; Life Cycle Status: Active ; Vocabulary: SNOMED CT S/P hysterectomy (SNOMED CT :618138298 ) Name of Problem: S/P hysterectomy ; Recorder: LEONID CASTANEDA RN; Confirmation: Confirmed ; Classification: Medical ; Code: 827333077 ; Contributor System: PowerChart ; Last Updated: 11/06/2019 20:08 EDT ; Life Cycle Date: 11/06/2019 ; Life Cycle Status: Active ; Vocabulary: SNOMED CT Shoulder pain, left (SNOMED CT :82083275 ) Name of Problem: Shoulder pain, left ; Recorder: Breanna Ivey RN; Confirmation: Confirmed ; Classification: Medical ; Code: 92186560 ; Contributor System: [employer] ; Last Updated: 05/24/2018 10:53 EST ; Life Cycle Date: 05/24/2018 ; Life Cycle Status: Active ; Vocabulary: SNOMED CT Diagnoses(Active) Abdominal pain Date: 11/01/2020 ; Diagnosis Type: Reason For Visit ; Confirmation: Complaint of ; Clinical Dx: Abdominal pain ; Classification: Medical ; Clinical Service: Non-Specified ; Code: PNED ; Probability: 0 ; Diagnosis Code: [id number] ED Height and Weight Height Source : Measured Height Entry Format : [place] Height, Feet : 5 ft(Converted to: 152 cm, 60 Inch) Height, Inches : 5 Inch(Converted to: 0 ft 5 Inch, 12.70 cm) Clinical Height : 165.1 cm Weight Source, ED : Standing scale Weight Entry Format : [place] Weight, Pounds : 161 lb Clinical Dosing Weight : 73.18 kg Body Surface Area (BSA) : 1.81 m2 Body Mass Index : 26.8 kg/m2 (HI) [place] Body Weight (IBW) : 56.59 kg Karie Goodwin RN - 11/01/2020 18:33 EDT Electronically signed by [facility], [facility] Conversion Lead Housekeeper Cerner at 08/31/2022 5:18 PM CDT documented in this encounter Plan of Treatment Not on file documented as of this encounter Visit Diagnoses Not on filedocumented in this encounter Care Teams Medical Assistant Dermatology Relationship Specialty Start Date End Date Alan Beyer MD [address] [place] [address] PCP - General Family Medicine 06/08/23 documented as of this encounter
--- OUTSIDE RECORDS SUMMARY | 2024-11-27 14:55 | XMS_ITS | Encounter Summary ---
Author Organization [employer] ([place], [place], [place], [place]) Address [address] [place] [address] Care Team Providers Care Flanger Name Role Phone Alan Beyer MD Primary Care Provider [phone] Encounter Details Date Type Department Care Team (Late st Contact Info) Description 02/02/2019 Transcribed Document [facility] [place] [address] ProviderJessenia MD [address] [place] [address] Social History Tobacco Use Types [...] Alvarez MD - 02/02/2019 4:47 PM CDT [place] [id number] CHARLINE BOND :1980 Visit Time:02/02/2019 Your Visit Summary Your Care Team Admitting Physician - GIANCARLO HALEY MD-DORA POWERS, UNKNOWN Attending Physician - GIANCARLO HALEY MD-EMR [...] please contact the Patient Resource Center at [phone]. [facility] Within As needed Comments Patient stated she is currently established with Martha Quarles and/or Eveline Campbell. Feel free to contact our Patient Resource Center at [phone] for any future Physician scheduling needs. Allergies Bactrim acetaminophen-oxyCODONE clindamycin Toradol baclofen doxycycline escitalopram fentaNYL lidocaine topical 2% gel meperidine morphine penicillin tetanus immune globulin Immunizations This Visit No Immunizations Found Medications What How Much When Instructions Next Dose New promethazine (promethazine 25 mg oral tablet) 1 Tablet(s) Oral Every 6 Hours as needed for for nausea/vomiting Duration: 3 Day(s) Pickup at [facility] Pharmacy Information [facility]: [address] [place], [place] [id number] [phone] The home medications listed are only as [...] range between ( 1.0 and 7.0 ) [place] #: 0.37 K/uL -- Normal range between ( 0.24 and 0.82 ) [place]os #: 0.03 K/uL -- Normal range between ( 0.04 and 0.54 ) [place] %: 5.8 % -- Normal range between [...] ) Urine Bilirubin Dipstick: Small Urine Specific [place]: 1.039 -- Normal range between ( 1.005 [...] Follow these instructions at home: ??? Take ydrn-nrv-sytzchj and prescription medicines only as told by [...] 10/16/2008 Document Revised: 11/17/2016 Document Reviewed: 10/11/2016 Exhibia Interactive Patient Education ?? 2019 [employer] Emergency Awareness and Preventative Care STROKE [...] Assistance with quitting is available by contacting 6-027-IVQE-NOW. This is a free resource providing counseling, [...] was given the opportunity to ask questions. Patient/Inspector Machine Cut Glass Name: Patient/Inspector Machine Cut Glass Signature: Relationship to Patient: Clinician/Hospital Inspector Machine Cut Glass Signature: Please Provide a Telephone Number Where You Can Be Reached: Is it Permissible To Leave a Message? Date: Electronically signed by Jannette, [facility] Conversion Pmp Certified Project Manager Cerner at 08/31/2022 4:57 PM CDT documented in this encounter Plan of Treatment Not on file documented as of this encounter Visit Diagnoses Not on filedocumented in this encounter Care Teams Flanger Relationship Specialty Start Date End Date Alan Beyer MD [address] [place] [address] PCP - General Family Medicine 06/08/23 documented as of this encounter
--- OUTSIDE RECORDS SUMMARY | 2024-11-27 14:55 | XMS_ITS | Encounter Summary ---
Author Organization [employer] ([place], [place], [place], [place]) Address [address] [place] [address] Care Team Providers Care Agricultural Produce Commission Agent Name Role Phone Alan Beyer MD Primary Care Provider [phone] Encounter Details Date Type Department Care Team (Late st Contact Info) Description 09/14/2021 Transcribed Document [facility] [place] Family Medicine [address] [place] [address] ProviderJessenia MD [address] [place] [address] Social History Tobacco Use Types [...] Historical Provider, - 09/14/2021 12:35 PM CDT Bro[place] Violence Assessment Entered On: 09/14/2021 13:20 EDT Performed On: 09/14/2021 13:16 EDT by VANDANA KHALIL RN-PATIENT CARE BEDSIDE NON-EXEMPT Broset Violence Assessment Broset Violence Checklist of Symptoms : None Broset Violence Symptoms Subtotal : 0 Broset Violence Symptoms Indicator : Low risk (0) VANDANA KHALIL RN-PATIENT CARE BEDSIDE NON-EXEMPT - 09/14/2021 13:16 EDT Electronically signed by Jannette [facility] Conversion Faculty Dean Cerner at 08/31/2022 5:11 PM CDT documented in this encounter Plan of Treatment Not on file documented as of this encounter Visit Diagnoses Not on filedocumented in this encounter Care Teams Agricultural Produce Commission Agent Relationship Specialty Start Date End Date Alan Beyer MD [address] [place] [address] PCP - General Family Medicine 06/08/23 documented as of this encounter
--- OUTSIDE RECORDS SUMMARY | 2024-11-27 14:55 | XMS_ITS | Encounter Summary ---
Author Organization [employer] ([place], [place], [place], [place]) Address [address] [place] [address] Care Team Providers Care Electrical Sign Servicer Name Role Phone Alan Beyer MD Primary Care Provider [phone] Encounter Details Date Type Department Care Team (Late st Contact Info) Description 12/23/2020 Transcribed Document [facility] [place] [address] ProviderJessenia MD [address] [place], [place] [address] Social History Tobacco Use Types Packs/Day Years [...] Alvarez MD - 12/23/2020 9:39 AM CDT [place] Suicide Severity Rating Scale (C-SSRS) Entered On: 12/23/2020 11:24 EDT Performed On: 12/23/2020 10:00 EDT by Suyapa An RN-PATIENT CARE BEDSIDE NON-EXEMPT [place] Suicide Severity Rating Scale (C-SSRS) CSSRS Past [...] filedocumented in this encounter Care Teams Electrical Sign Servicer Relationship Specialty Start Date End Date Alan Beyer MD [address] [place] [address] PCP - General Family Medicine 06/08/23 documented as of this encounter
--- OUTSIDE RECORDS SUMMARY | 2024-11-27 14:55 | XMS_ITS | Encounter Summary ---
Author Organization [employer] ([place], [place], [place], [place]) Address [address] [place] [address] Care Team Providers Care Labor/Excavator Name Role Phone Alan Beyer MD Primary Care Provider [phone] Encounter Details Date Type Department Care Team (Late st Contact Info) Description 09/14/2021 Transcribed Document [facility] [place] [address] [place] [address] ProviderJessenia MD [address] [place] [address] Social History Tobacco Use Types [...] Date Manny rded Speak language other than Polish at home Not on file 05/23/2023 Want [...] Conversion Note - Historical ProviderMD - 09/14/2021 5:25 PM CDT ED Discharge [...] Patient Prescriptions Given to Patient : No VANDANA KHALIL RN-PATIENT CARE BEDSIDE NON-EXEMPT - 09/14/2021 17:25 EDT Electronically signed by Jannette [facility] Conversion Cable Systems Installer Cerner at 08/31/2022 5:16 PM CDT documented in this encounter Plan of Treatment Not on file documented as of this encounter Visit Diagnoses Not on filedocumented in this encounter Care Teams Labor/Excavator Relationship Specialty Start Date End Date Alan Beyer MD [address] [place] [address] PCP - General Family Medicine 06/08/23 documented as of this encounter
--- OUTSIDE RECORDS SUMMARY | 2024-11-27 14:55 | XMS_ITS | Encounter Summary ---
Author Organization [employer] ([place], [place], [place], [place]) Address [address] [place] [address] Care Team Providers Care Trench Digging Machine Operator Name Role Phone Alan Beyer MD Primary Care Provider [phone] Encounter Details Date Type Department Care Team (Late st Contact Info) Description 09/14/2021 Transcribed Document [facility] [place] [address] [place] [address] ProviderJessenia MD [address] [place] [address] Social History Tobacco Use Types [...] Conversion Note - Historical Provider, - 09/14/2021 5:26 PM CDT [address] [address] Visit Date/Time: 09/14/2021 17:26:14 CHARLINE BOND The above patient was seen in the hospital today and needs to be excused from work/school until Return to Work/School Date: 09/15/2021 Electronically signed by Trevon Bhatia Conversion Licensed Mortgage Loan Officer Cerner at 08/31/2022 5:12 PM CDT documented in this encounter Plan of Treatment Not on file documented as of this encounter Visit Diagnoses Not on filedocumented in this encounter Care Teams Trench Digging Machine Operator Relationship Specialty Start Date End Date Alan Beyer MD [address] [place] [address] PCP - General Family Medicine 06/08/23 documented as of this encounter
--- OUTSIDE RECORDS SUMMARY | 2024-11-27 14:55 | XMS_ITS | Encounter Summary ---
Author Organization [employer] ([place], [place], [place], [place]) Address [address] [place] [address] Care Team Providers Care Senior Restaurant Manager Name Role Phone Alan Beyer MD Primary Care Provider [phone] Encounter Details Date Type Department Care Team (Late st Contact Info) Description 01/06/2019 Transcribed Document [facility] [place] [facility] [place] [address] ProviderJessenia MD [address] [place] [address] Social History Tobacco Use Types [...] ProviderMD - 01/06/2019 10:49 AM CDT ED Triage [...] - Non - Urgent Tracking Group : [facility] ED [facility] RASTA BUCKLEY RN - 01/06/2019 [...] 01/06/2019 10:55:21 EDT) Problems(Active) Anxiety (SNOMED CT :89224167 ) Name of Problem: Anxiety ; Recorder: ERICKA ISSA RN; Confirmation: Confirmed ; Classification: Medical ; Code: 14875011 ; Contributor System: Storenvy ; Last Updated: 07/26/2015 22:28 EDT ; Life Cycle Date: 07/26/2015 ; Life Cycle Status: Active ; Vocabulary: SNOMED CT Endometriosis, vagina (SNOMED CT :27809789 ) Name of Problem: Endometriosis, vagina ; Recorder: Breanna Ivey Rn; Confirmation: Confirmed ; Classification: Medical ; Code: 43111614 ; Contributor System: PowerChart ; Last Updated: 05/24/2018 10:54 EST ; Life Cycle Date: 05/24/2018 ; Life Cycle Status: Active ; Vocabulary: SNOMED CT Kidney stones (SNOMED CT :280780118 ) Name of Problem: Kidney stones ; Recorder: KAYY ANDREW; Confirmation: Confirmed ; Classification: Medical ; Code: 589421521 ; Contributor System: PowerChart ; Last Updated: 06/06/2016 9:30 EST ; Life Cycle Date: 06/06/2016 ; Life Cycle Status: Active ; Vocabulary: SNOMED CT Migraine (SNOMED CT :34278467 ) Name of Problem: Migraine ; Recorder: ERICKA ISSA RN; Confirmation: Confirmed ; Classification: Medical ; Code: 80503616 ; Contributor System: Storenvy ; Last Updated: 07/26/2015 22:28 EDT ; Life Cycle Date: 07/26/2015 ; Life Cycle Status: Active ; Vocabulary: SNOMED CT Shoulder pain, left (SNOMED CT :31201606 ) Name of Problem: Shoulder pain, left ; Recorder: Breanna Ivey Rn; Confirmation: Confirmed ; Classification: Medical ; Code: 49862043 ; Contributor System: PowerChart ; Last Updated: 05/24/2018 10:53 EST ; Life Cycle Date: 05/24/2018 ; Life Cycle Status: Active ; Vocabulary: SNOMED CT Diagnoses(Active) Knee pain-swelling Date: 01/06/2019 ; Diagnosis Type: Reason For Visit ; Confirmation: Complaint of ; Clinical Dx: Knee pain-swelling ; Classification: Medical ; Clinical Service: Emergency medicine ; Code: PNED ; Probability: 0 ; Diagnosis Code: [id number] ED Height and Weight Height Source : Stated Height Entry Format : [place] Height, Feet : 5 ft(Converted to: 152 cm, 60 Inch) Height, Inches : 5 Inch(Converted to: 0 ft 5 Inch, 12.70 cm) Clinical Height : 165.1 cm Weight Source, ED : Standing scale Weight Entry Format : [place] Weight, Pounds : 160 lb Clinical Dosing Weight : 72.73 kg Body Surface Area (BSA) : 1.8 m2 Body Mass Index : 26.7 kg/m2 (HI) [place] Body Weight (IBW) : 56.59 kg RASTA [...] filedocumented in this encounter Care Teams Senior Restaurant Manager Relationship Specialty Start Date End Date Alan Beyer MD [address] [place] [address] PCP - General Family Medicine 06/08/23 documented as of this encounter
--- OUTSIDE RECORDS SUMMARY | 2024-11-27 14:55 | XMS_ITS | Encounter Summary ---
Author Organization [employer] ([place], [place], [place], [place]) Address [address] [place] [address] Care Team Providers Care Digital Product Manager Name Role Phone Alan Beyer MD Primary Care Provider [phone] Encounter Details Date Type Department Care Team (Late st Contact Info) Description 01/06/2019 Transcribed Document [facility] [place] Family Medicine [address] [place] [address] ProviderJessenia MD [address] [place] [address] Social History Tobacco Use Types Packs/Day Years Used Date Smoking Tobacco: Never Assessed Comments Unknown Sex and Gender Information Value Date Recorded Sex Assigned at Not on file Legal Sex Female 4:28 PM CDT Gender Identity Not on file Sexual Orientation Not on file documented as of this encounter Miscellaneous Notes * Cerner Conversion Note - Historical ProviderMD - 01/06/2019 5:48 PM CDT CR Knee Min 4 Vws RT Ordered: 01/06/2019 Auth (Verified) Reason for Exam: knee pain 01/06/2019 14:09 01/06/2019 17:48 (BUTCH KRISHNA) No further action required documented in this encounter Plan of Treatment Not on file documented as of this encounter Visit Diagnoses Not on filedocumented in this encounter Care Teams Digital Product Manager Relationship Specialty Start Date End Date Alan Beyer MD [address] [place] [address] PCP - General Family Medicine 06/08/23 documented as of this encounter
--- OUTSIDE RECORDS SUMMARY | 2024-11-27 14:55 | XMS_ITS | Encounter Summary ---
Author Organization [employer] ([place], [place], [place], [place]) Address [address] [place] [address] Care Team Providers Care Jigmaker Name Role Phone Alan Beyer MD Primary Care Provider [phone] Encounter Details Date Type Department Care Team (Late st Contact Info) Description 06/05/2018 Transcribed Document [facility] Family Medicine [address] [place] [address] ProviderJessenia MD [address] [place] [id number] Social History Tobacco Use Types Packs/Day Years Used Date Smoking Tobacco: Never Assessed Comments Unknown Sex and Gender Information Value Date Recorded Sex Assigned at Not on file Legal Sex Female 4:28 PM CDT Gender Identity Not on file Sexual Orientation Not on file documented as of this encounter Miscellaneous Notes * Cerner Conversion Note - Historical ProviderMD - 06/05/2018 11:45 AM PREPARATION SUPERVISOR CANNING [facility] Main [place] PACU Summary Primary Physician: DORIS BRANCH DO Finalized Date/Time: 06/05/18 13:55:19 Pt. Name: RIANA CHARLINE DENIZ /Sex: 1980 Female Med Rec #: [id number] Physician: DORIS BRANCH DO Financial #: [id number] Pt. Type: O Room/Bed: [facility]/ Admit/Disch: 06/05/18 04:59:00 - Institution: [facility] Main OR PACU Case Times Entry 1 In PACU I 06/05/18 12:56:00 Ready for PACU 06/05/18 13:26:00 Discharge Discharge from PACU 06/05/18 13:45:00 I Last Modified By: REBECCA FLORES RN 06/05/18 13:50:52 [facility] Main OR PACU Case Times Audit 06/05/18 13:50:52 Electrician Apprentice: ANGELA Modifier: [email or web address] <+> 1 Discharge from PACU I 06/05/18 13:17:57 Electrician Apprentice: ANGELA Modifier: [email or web address] <+> 1 Ready for PACU Discharge [facility] Main OR PACU Acuity Entry 1 Start Time 06/05/18 12:56:00 Stop Time 06/05/18 13:45:00 Acuity Level [facility] PACU Acuity I Last Modified By: REBECCA FLORES RN 06/05/18 13:51:14 [facility] Main OR PACU Acuity Audit 06/05/18 13:51:14 Electrician Apprentice: ANGELA Modifier: ANGELA <+> 1 Stop Time Finalized By: REBECCA FLORES, RN Document Signatures Signed By: REBECCA FLORES RN 06/05/18 13:55 Electronically signed by Jannette [facility] Conversion Cylinder Valve Repairer Cerner at 08/31/2022 5:17 PM CDT documented in this encounter Plan of Treatment Not on file documented as of this encounter Visit Diagnoses Not on filedocumented in this encounter Care Teams Jigmaker Relationship Specialty Start Date End Date Alan Beyer MD [address] [place] [address] PCP - General Family Medicine 06/08/23 documented as of this encounter
--- OUTSIDE RECORDS SUMMARY | 2024-11-27 14:56 | XMS_ITS | Encounter Summary ---
Author Organization [employer] ([place], [place], [place], [place]) Address [address] [place] [address] Care Team Providers Care Internet Sales Director Name Role Phone Alan Beyer MD Primary Care Provider [phone] Encounter Details Date Type Department Care Team (Late st Contact Info) Description 12/12/2021 Transcribed Document [facility] [place] Family Medicine [address] [place] [address] ProviderJessenia MD [address] [place] [address] Social History Tobacco Use [...] Conversion Note - Historical Provider, - 12/12/2021 10:37 AM CDT Patient: REFUGIO BOND Age: 41 years Sex: Female : [...] as documented in chart. Surgical history: Clavicle (874412619). Tympanostomy (7279917924). Adenoids (476847323). shoulder surgery. Gallbladder absent (911746075). Tubal ligation (992132368). Hysterectomy (258015940). Right knee (50228113). Comments: 05/03/2020 15:32 Jyoti Tilley Rn menisectomy, [...] % 27.8 % Lymph # 1.31 K/uL Foster % 7.0 % Foster # 0.33 K/uL Eos % 1.1 % Eos # 0.05 K/uL Baso % 0.4 % Baso # 0.02 K/uL Slide Review No IG# 0 x10(3)/uL IG% 0 % Urine Type. U CleanCatch Urine Color Yellow Urine Appearance Clear Urine Specific [place] 1.015 Urine pH Dipstick 6.0 Urine Leukocyte [...] Manage Your COVID-19 Symptoms at Home - [facility] (11/26/2020), COVID-19: Quarantine and Isolation - [facility] (06/09/21). Follow up with: ; Follow up with primary care provider Within 2 to 3 days. Counseled: Patient, Regarding diagnosis, Regarding diagnostic results, Regarding treatment plan, Patient indicated understanding of instructions. documented in this encounter Plan of Treatment Not on file documented as of this encounter Visit Diagnoses Not on filedocumented in this encounter Care Teams Internet Sales Director Relationship Specialty Start Date End Date Alan Beyer MD [address] [place] [address] PCP - General Family Medicine 06/08/23 documented as of this encounter
--- OUTSIDE RECORDS SUMMARY | 2024-11-27 14:56 | XMS_ITS | Encounter Summary ---
Author Organization [email or web address] ([place], [place], [place], [place]) Address [address] [place] [address] Care Team Providers Care Ticket Seller Name Role Phone Alan Beyer MD Primary Care Provider [phone] Encounter Details Date Type Department Care Team (Late st Contact Info) Description 12/12/2021 Transcribed Document [facility] [place] [address] [place] [address] ProviderJessenia MD [address] [place] [address] Social History Tobacco Use Types [...] Date Manny rded Speak language other than Mongolian at home Not on file 05/23/2023 Want [...] Provider, - 12/12/2021 10:01 AM CDT ED Triage Entered On: 12/12/2021 10:13 EDT Performed On: 12/12/2021 10:09 EDT by Amanda Walters Flex Team swim coach Triage Across the Room Chief Complaint : [...] EDT DCP GENERIC CODE Tracking Group : [facility] ED [facility] Amanda Walters Flex Team Rn [...] Visit : Document Tetanus Immunization : Unknown Pick Pulling Machine Tender Needed : No Amanda Walters Flex Team [...] 12/12/2021 10:13:34 EDT) Problems(Active) Anxiety (SNOMED CT :13714926 ) Name of Problem: Anxiety ; Recorder: ERICKA ISSA RN; Confirmation: Confirmed ; Classification: Medical ; Code: 56917186 ; Contributor System: lifeaction games ; Last Updated: 07/26/2015 22:28 EDT ; Life Cycle Date: 07/26/2015 ; Life Cycle Status: Active ; Vocabulary: SNOMED CT At risk for sleep apnea (IMO :25870946 ) Name of Problem: At risk for sleep apnea ; Recorder: SYSTEM, SYSTEM; Confirmation: Confirmed ; Classification: Medical ; Code: 46501109 ; Last Updated: 07/13/2021 14:49 EST ; Life Cycle Date: 07/13/2021 ; Life Cycle Status: Active ; Vocabulary: IMO Endometriosis, vagina (SNOMED CT :69632660 ) Name of Problem: Endometriosis, vagina ; Recorder: Breanna Ivey RN; Confirmation: Confirmed ; Classification: Medical ; Code: 07965177 ; Contributor System: Met[employer] CorporationChart ; Last Updated: 05/24/2018 10:54 EST ; Life Cycle Date: 05/24/2018 ; Life Cycle Status: Active ; Vocabulary: SNOMED CT Kidney stones (SNOMED CT :247549411 ) Name of Problem: Kidney stones ; Recorder: KAYY ANDREW; Confirmation: Confirmed ; Classification: Medical ; Code: 333449808 ; Contributor System: Met[employer] CorporationChart ; Last Updated: 06/06/2016 9:30 EST ; Life Cycle Date: 06/06/2016 ; Life Cycle Status: Active ; Vocabulary: SNOMED CT Migraine (SNOMED CT :58534707 ) Name of Problem: Migraine ; Recorder: ERICKA ISSA RN; Confirmation: Confirmed ; Classification: Medical ; Code: 52762740 ; Contributor System: PowerChart ; Last Updated: 07/26/2015 22:28 EDT ; Life Cycle Date: 07/26/2015 ; Life Cycle Status: Active ; Vocabulary: SNOMED CT Multiple drug allergies (SNOMED CT :5942764730 ) Name of Problem: Multiple drug allergies ; Recorder: YOVANA WILKERSON NP-FAM; Confirmation: Confirmed ; Classification: Medical ; Code: 9604136118 ; Contributor System: [employer] CorporationChart ; Last Updated: 07/13/2021 15:51 EST ; Life Cycle Date: 07/13/2021 ; Life Cycle Status: Active ; Responsible Provider: YOVANA WILKERSON NP-FAM; Vocabulary: SNOMED CT S/P hysterectomy (SNOMED CT :660225561 ) Name of Problem: S/P hysterectomy ; Recorder: LEONID CASTANEDA RN; Confirmation: Confirmed ; Classification: Medical ; Code: 783239891 ; Contributor System: PowerChart ; Last Updated: 11/06/2019 20:08 EDT ; Life Cycle Date: 11/06/2019 ; Life Cycle Status: Active ; Vocabulary: SNOMED CT Shoulder pain, left (SNOMED CT :80775128 ) Name of Problem: Shoulder pain, left ; Recorder: Breanna Ivey RN; Confirmation: Confirmed ; Classification: Medical ; Code: 92281159 ; Contributor System: [employer] CorporationChart ; Last Updated: 05/24/2018 10:53 EST ; Life Cycle Date: 05/24/2018 ; Life Cycle Status: Active ; Vocabulary: SNOMED CT Thoracic disc herniation (SNOMED CT :547195348 ) Name of Problem: Thoracic disc herniation ; Recorder: YOVANA WILKERSON NP-FAM; Confirmation: Confirmed ; Classification: Medical ; Code: 410911569 ; Contributor System: lifeaction games ; Last Updated: 07/13/2021 15:51 EST ; Life Cycle Date: 07/13/2021 ; Life Cycle Status: Active ; Responsible Provider: YOVANA WILKERSON NP-FAM; Vocabulary: SNOMED CT Diagnoses(Active) Anxiety Date: 12/12/2021 ; Diagnosis Type: Reason For Visit ; Confirmation: Complaint of ; Clinical Dx: Anxiety ; Classification: Medical ; Clinical Service: Non-Specified ; Code: PNED ; Probability: 0 ; Diagnosis Code: [id number] ED Height and Weight Height Source : Stated Height Entry Format : [place] Height, Feet : 5 ft(Converted to: 152 cm, 60 Inch) Height, Inches : 5 Inch(Converted to: 0 ft 5 Inch, 12.70 cm) Clinical Height : 165.1 cm Weight Source, ED : Critical estimated dosing weight Weight Entry Format : [place] Weight, Pounds : 180 lb Clinical Dosing Weight : 81.82 kg Body Surface Area (BSA) : 1.89 m2 Body Mass Index : 30 kg/m2 (HI) [place] Body Weight (IBW) : 56.59 kg Amanda Walters Flex Team Rn - 12/12/2021 10:09 EDT documented in this encounter Plan of Treatment Not on file documented as of this encounter Visit Diagnoses Not on filedocumented in this encounter Care Teams Ticket Seller Relationship Specialty Start Date End Date Alan Beyer MD [address] [place] [address] PCP - General Family Medicine 06/08/23 documented as of this encounter
--- OUTSIDE RECORDS SUMMARY | 2024-11-27 14:56 | XMS_ITS | Encounter Summary ---
Author Organization [employer] ([place], [place], [place], [place]) Address [address] [place] [address] Care Team Providers Care Middle School Resource Teacher Name Role Phone Alan Beyer MD Primary Care Provider [phone] Encounter Details Date Type Department Care Team (Late st Contact Info) Description 12/23/[address] [facility] [place] Family [place] [facility] [address] ProviderJessenia MD [address] [place] [address] Social History Tobacco Use Types Packs/Day Years Used Date Smoking Tobacco: Never Assessed Comments Unknown Sex and Gender Information Value Date Recorded Sex Assigned at Not on file Legal Sex Female 4:28 PM CDT Gender Identity Not on file Sexual Orientation Not on file documented as of this encounter Miscellaneous Notes * Cerner Conversion Note - Historical ProviderMD - 12/23/2020 2:16 PM CDT [address] [address] Visit Date/Time: 12/23/2020 14:16:10 CHARLINE MAYERS The above patient was seen in the hospital today and needs to be excused from work/school until Return to Work/School Date: 12/26/20 Electronically signed by Jannette [facility] Conversion Front Office Help Cerner at 08/31/2022 5:00 PM CDT documented in this encounter Plan of Treatment Not on file documented as of this encounter Visit Diagnoses Not on filedocumented in this encounter Care Teams Middle School Resource Teacher Relationship Specialty Start Date End Date Alan Beyer MD [address] [place] [address] PCP - General Family Medicine 06/08/23 documented as of this encounter
--- OUTSIDE RECORDS SUMMARY | 2024-11-27 14:56 | XMS_ITS | Encounter Summary ---
Author Organization [employer] ([place], [place], [place], [place]) Address [address] [place] [address] Care Team Providers Care Machine Striper Name Role Phone Alan Beyer MD Primary Care Provider [phone] Encounter Details Date Type Department Care Team (Late st Contact Info) Description 12/23/2020 Transcribed Document [facility] [place] Family Medicine [facility] [place] [address] ProviderJessenia MD [address] [place] [address] Social History Tobacco Use Types Packs/Day [...] Alvarez MD - 12/23/2020 2:04 PM CDT [place] [id number] CHARLINE BOND :1980 Visit Time:12/23/2020 Your Visit [...] When Within 2 to 3 days Where: [address] [place] [address]- Business (1) Allergies Bactrim acetaminophen-oxyCODONE clindamycin Toradol [...] Medicines to relieve symptoms. These can include vkls-qqf-qrcanht medicine for pain and fever, medicines for [...] these instructions at home: Medicines ??? Take kebw-knz-jhhmxhb and prescription medicines only as told by [...] and water are not available, use hand land surveying manager. ??? Avoid close contact with friends [...] provider. Document Revised: 04/12/2018 Document Reviewed: 09/08/2016 [employer] Patient Education ?? 2020 [employer]. Emergency Awareness and Preventative Care STROKE is [...] Assistance with quitting is available by contacting 8-810-GKVD-NOW. This is a free resource providing counseling, [...] was given the opportunity to ask questions. Patient/Forging Die Sinker Name: Patient/Forging Die Sinker Signature: Relationship to Patient: Clinician/Hospital Forging Die Sinker Signature: Please Provide a Telephone Number Where You Can Be Reached: Is it Permissible To Leave a Message? Date: Electronically signed by Jannette, [facility] Conversion Factorer Cerner at 08/31/2022 5:01 PM CDT documented in this encounter Plan of Treatment Not on file documented as of this encounter Visit Diagnoses Not on filedocumented in this encounter Care Teams Machine Striper Relationship Specialty Start Date End Date Alan Beyer MD [address] [place] [address] PCP - General Family Medicine 06/08/23 documented as of this encounter
--- OUTSIDE RECORDS SUMMARY | 2024-11-27 14:56 | XMS_ITS | Encounter Summary ---
Author Organization [employer] ([place], [place], [place], [place]) Address [address] [place] [address] Care Team Providers Care Carbon Dioxide Operator Name Role Phone Alan Beyer MD Primary Care Provider [phone] Encounter Details Date Type Department Care Team (Late st Contact Info) Description 01/06/2019 Transcribed Document [facility] [place] [address] ProviderJessenia MD [address] [place] [address] Social History Tobacco Use Types Packs/Day Years Used Date Smoking Tobacco: Never Assessed Comments Unknown Sex and Gender Information Value Date Recorded Sex Assigned at Not on file Legal Sex Female 4:28 PM CDT Gender Identity Not on file Sexual Orientation Not on file documented as of this encounter Miscellaneous Notes * Cerner Conversion Note - Jessenia ProviderMD - 01/06/2019 1:02 PM CDT [address] [place] [address] PERSON INFORMATION Name CHARLINE BOND Age 38 Years 1980 Sex Female Language Lithuanian PCP JORGE LUIS CAMPBELL NP-CLAUDIO Marital Status Med Service Emergency Medicine Acct# Arrival 01/06/2019 10:49:00 Visit Reason Knee pain-swelling; KNEE PAIN Acuity 4 - Non - Urgent LOS 000 02:13 Depart Date: 00:00 AM Address: [address] [place] [id number] Comment: PROVIDER INFORMATION Provider Role Assigned Unassigned TETO MCKNIGHT PA-C ED Physician 01/06/2019 11:27:44 Luis Choudhury, dry cell and battery assembler Nurse 01/06/2019 12:06:25 DIAGNOSIS Internal knee problem [...] please contact the [facility] at [phone]. With: Address: When: JORGE LUIS CAMPBELL [facility] [address], [address] [place] [address] [facility] () Within 2 to 3 days Comment: documented in this encounter Plan of Treatment Not on file documented as of this encounter Visit Diagnoses Not on filedocumented in this encounter Care Teams Carbon Dioxide Operator Relationship Specialty Start Date End Date Alan Beyer MD [address] [place] [address] PCP - General Family Medicine 06/08/23 documented as of this encounter
--- OUTSIDE RECORDS SUMMARY | 2024-11-27 14:56 | XMS_ITS | Encounter Summary ---
Author Organization [employer] ([place], [place], [place], [place]) Address [address] [place] [address] Care Team Providers Care Vacuum Tank Tender Name Role Phone Alan Beyer MD Primary Care Provider [phone] Encounter Details Date Type Department Care Team (Late st Contact Info) Description 06/05/2018 Transcribed Document [facility] [place] Family Medicine [address] [place] [address] ProviderJessenia MD [address] [place] [address] Social History Tobacco Use Types Packs/Day Years Used Date Smoking Tobacco: Never Assessed Comments Unknown Sex and Gender Information Value Date Recorded Sex Assigned at Not on file Legal Sex Female 4:28 PM CDT Gender Identity Not on file Sexual Orientation Not on file documented as of this encounter Miscellaneous Notes * Cerner Conversion Note - Historical ProviderMD - 06/05/2018 9:26 AM LINEN WORKER Pre Procedure Adult Entered On: 06/05/2018 9:28 EST Performed On: 06/05/2018 9:26 EST by Raquel Saeed Rn-Traveler Height and Weight, Clinical Dosing Height Source : Stated Height Entry Format : [place] Height, Feet : 5 ft(Converted to: 152 cm, 60 Inch) Height, Inches : 5 Inch(Converted to: 0 ft 5 Inch, 12.70 cm) Clinical Height : 165.1 cm Weight Source : Standing scale Weight Entry Format : [place] Clinical Dosing Weight : 75 kg Weight, Pounds : 165 lb Body Surface Area (BSA) : 1.82 m2 Body Mass Index : 27.5 kg/m2 (HI) [place] Body Weight : 57 kg Raquel Saeed [...] #2 Relationship : beau Primary Language : Syriac Preferred Communication Mode : Verbal Communication Barrier : None Raquel Saeed Rn-Traveler - 06/05/2018 9:26 EST Sleep Apnea [...] Scale Risk Level : 25-45 Medium Risk [place] Fall Interventions : Non-slip footwear, Wheels locked Barriers to Learning : None evident Raquel Saeed Rn-Traveler - 06/05/2018 9:26 EST Valuables and Belongings Valuables and Belongings : Clothing Clothing : Common streetwear Clothing Disposition : With family Raquel Saeed Rn-Traveler - 06/05/2018 9:26 EST documented in this encounter Plan of Treatment Not on file documented as of this encounter Visit Diagnoses Not on filedocumented in this encounter Care Teams Vacuum Tank Tender Relationship Specialty Start Date End Date Aaln Beyer MD [address] [place] [address] PCP - General Family Medicine 06/08/23 documented as of this encounter
--- OUTSIDE RECORDS SUMMARY | 2024-11-27 14:56 | XMS_ITS | Encounter Summary ---
Author Organization [employer] ([place], [place], [place], [place]) Address [address] [place] [address] Care Team Providers Care Die Cast Technician Name Role Phone Alan Beyer MD Primary Care Provider [phone] Encounter Details Date Type Department Care Team (Late st Contact Info) Description 01/06/2019 Transcribed Document [facility] [place] Family [place] [facility] [place] [address] ProviderJessenia MD [address] [place], [place] [id number] Social History Tobacco Use Types Packs/Day Years Used Date Smoking Tobacco: Never Assessed Comments Unknown Sex and Gender Information Value Date Recorded Sex Assigned at Not on file Legal Sex Female 4:28 PM CDT Gender Identity Not on file Sexual Orientation Not on file documented as of this encounter Miscellaneous Notes * Cerner Conversion Note - Jessenia ProviderMD - 01/06/2019 1:02 PM CDT TESS Entered [...] filedocumented in this encounter Care Teams Die Cast Technician Relationship Specialty Start Date End Date Alan Beyer MD [address] [place] [address] PCP - General Family Medicine 06/08/23 documented as of this encounter
--- OUTSIDE RECORDS SUMMARY | 2024-11-27 14:56 | XMS_ITS | Encounter Summary ---
Author Organization [employer] ([place], [place], [place], [place]) Address [address] [place] [address] Care Team Providers Care Underwear Welter Name Role Phone Alan Beyer MD Primary Care Provider [phone] Encounter Details Date Type Department Care Team (Late st Contact Info) Description 06/05/2018 Transcribed Document [facility] [place] [address] [place] [address] ProviderJessenia MD [address] [place] [address] Social History Tobacco Use Types Packs/Day Years Used Date Smoking Tobacco: Never Assessed Comments Unknown Sex and Gender Information Value Date Recorded Sex Assigned at Not on file Legal Sex Female 4:28 PM CDT Gender Identity Not on file Sexual Orientation Not on file documented as of this encounter Miscellaneous Notes * Cerner Conversion Note - Historical ProviderMD - 06/05/2018 8:44 AM RELIEF WORKER Pediatric Growth Entered On: 06/05/2018 8:44 EST Performed On: 06/05/2018 8:44 EST by Cheri Loaiza Care [facility] Unit Coord Height and Weight, Clinical Dosing Height Source : Stated Height Entry Format : [place] Height, Feet : 5 ft(Converted to: 152 cm, 60 Inch) Height, Inches : 5 Inch(Converted to: 0 ft 5 Inch, 12.70 cm) Clinical Height : 165.1 cm Weight Source : Standing scale Weight Entry Format : [place] Clinical Dosing Weight : 75 kg Weight, Pounds : 165 lb Body Surface Area (BSA) : 1.82 m2 Body Mass Index : 27.5 kg/m2 (HI) [place] Body Weight : 57 kg Cheri Loaiza Care Asst-Health Unit Coord - 06/05/2018 8:44 EST Electronically signed by Jannette, [facility] Conversion Functional Manager Cerner at 08/31/2022 5:19 PM CDT documented in this encounter Plan of Treatment Not on file documented as of this encounter Visit Diagnoses Not on filedocumented in this encounter Care Teams Underwear Welter Relationship Specialty Start Date End Date Alan Beyer MD [address] [place] [address] PCP - General Family Medicine 06/08/23 documented as of this encounter
--- OUTSIDE RECORDS SUMMARY | 2024-11-27 14:56 | XMS_ITS | Encounter Summary ---
Author Organization [employer] ([place], [place], [place], [place]) Address [address] [place] [address] Care Team Providers Care Garden Consultant Name Role Phone Alan Beyer MD Primary Care Provider [phone] Encounter Details Date Type Department Care Team (Late st Contact Info) Description 12/12/2021 Transcribed Document [facility] [place] Family Medicine [address] [place] [address] ProviderJessenia MD [address] [place] [address] Social History Tobacco Use Types [...] Date Manny rded Speak language other than Slovenian at home Not on file 05/23/2023 Want [...] on filedocumented in this encounter Care Teams Garden Consultant Relationship Specialty Start Date End Date Alan Beyer MD [address] [place] [address] PCP - General Family Medicine 06/08/23 documented as of this encounter
--- OUTSIDE RECORDS SUMMARY | 2024-11-27 14:56 | XMS_ITS | Encounter Summary ---
Author Organization [employer] ([place], [place], [place], [place]) Address [address] [place] [address] Care Team Providers Care General Passenger Agent Name Role Phone Alan Beyer MD Primary Care Provider [phone] Encounter Details Date Type Department Care Team (Late st Contact Info) Description 11/01/2020 Transcribed Document [facility] [place] Family Medicine [facility] [place] [address] ProviderJessenia MD [address] [place], [place] [id number] Social History Tobacco Use Types Packs/Day Years [...] Performed On: 11/01/2020 23:12 EDT by MITCH CRANE, ELEVR Intervention Information: HYDROmorphone Performed by Marly Frias [...] on filedocumented in this encounter Care Teams General Passenger Agent Relationship Specialty Start Date End Date Alan Beyer MD [address] [place] [address] PCP - General Family Medicine 06/08/23 documented as of this encounter
--- OUTSIDE RECORDS SUMMARY | 2024-11-27 14:56 | XMS_ITS | Encounter Summary ---
Author Organization [employer] ([place], [place], [place], [place]) Address [address] [place] [address] Care Team Providers Care Educational Administrator Name Role Phone Alan Beyer MD Primary Care Provider [phone] Encounter Details Date Type Department Care Team (Late st Contact Info) Description 11/01/2020 Transcribed Document [facility] [place] [facility] [place] [address] ProviderJessenia MD [address] [place] [address] Social History Tobacco Use Types Packs/Day Years Used Date Smoking Tobacco: Never Assessed Comments Unknown Sex and Gender Information Value Date Recorded Sex Assigned at Not on file Legal Sex Female 4:28 PM CDT Gender Identity Not on file Sexual Orientation Not on file documented as of this encounter Miscellaneous Notes * Cerner Conversion Note - Jessenia ProviderMD - 11/01/2020 10:56 PM CDT [place] [address] [facility] [place] [address] PERSON INFORMATION Name CHARLINE BOND Age 39 Years 1980 Sex Female Language Bengali PCP RHIANNA MARTIN, -CLAUDIO Marital Status Med Service Emergency Medicine Acct# Arrival 11/01/2020 18:07:00 Visit Reason Abdominal pain; Abdominal pain; ABD PAIN Acuity 3 - Urgent LOS 000 04:49 Depart Date: 00:00 AM Address: [address] [place] [phone] Comment: PROVIDER INFORMATION Provider Role Assigned Unassigned ZAIDA FRANCIS PA-C ED Physician 11/01/2020 20:00:59 MITCH CRANE, FORK ASSEMBLER Nurse 11/01/2020 20:18:31 DIAGNOSIS Abdominal pain; Right [...] Location: PATIENT EDUCATION INFORMATION Instructions: Ovarian Cyst, [id number] Follow up: With: Address: When: RHIANNA MARTIN [address] [place] [address] Business (1) Within 2 to 3 days Comments: Appointment with your STRUCTURAL FITTER. Take medications as directed. Stay home, wear your mask, and practice self distancing. Return to the ER if symptoms worsen or persist. The following medications have been prescribed to you today: Prescriptions (1) Active diclofenac sodium 75 mg oral delayed release tablet 75 mg = 1 Tab, DR Tab, BID, Oral, 5 Day(s), 10 Tab, 0 refill(s), Route to Pharmacy Electronically, [place] [id number] Comment: Electronically signed by Jannette [facility] Conversion Logistics Manager Cerner at 08/31/2022 5:25 PM CDT documented in this encounter Plan of Treatment Not on file documented as of this encounter Visit Diagnoses Not on filedocumented in this encounter Care Teams Educational Administrator Relationship Specialty Start Date End Date Alan Beyer MD [address] [place] [address] PCP - General Family Medicine 06/08/23 documented as of this encounter
--- OUTSIDE RECORDS SUMMARY | 2024-11-27 14:57 | XMS_ITS | Encounter Summary ---
Author Organization [email or web address] ([place], [place], [place], [place]) Address [address] [place] [address] Care Team Providers Care Pastry Decorator Name Role Phone Alan Beyer MD Primary Care Provider [phone] Encounter Details Date Type Department Care Team (Late st Contact Info) Description 04/09/2019 Transcribed Document [facility] [place] Family Medicine [address] [place] [address] ProviderJessenia MD [address] [place], [place] [phone] Social History Tobacco Use Types Packs/Day Years Used Date Smoking Tobacco: Never Assessed Comments Unknown Sex and Gender Information Value Date Recorded Sex Assigned at Not on file Legal Sex Female 4:28 PM CDT Gender Identity Not on file Sexual Orientation Not on file documented as of this encounter Miscellaneous Notes * Cerner Conversion Note - Jessenia ProviderMD - 04/09/2019 1:35 PM LASTING ROOM SUPERVISOR [facility] Main OR PostOp Summary Primary Physician: JESUS EDWARDS JR, JR, MD-ORT Finalized Date/Time: 04/09/19 15:41:24 Pt. Name: CHARLINE BOND /Sex: 1980 Female Med Rec #: [id number] Physician: JESUS EDWARDS JR, JR, MD-ORT Financial #: [id number] Pt. Type: O Room/Bed: Admit/Disch: 04/09/19 09:13:00 - Institution: [facility] Main OR PostOp Case Times Entry 1 In PACU II 04/09/19 14:37:00 Ready for PACU II 04/09/19 15:33:00 Discharge Discharge from PACU 04/09/19 15:33:00 II Last Modified By: Jammie Pitts RN 04/09/19 15:41:21 [facility] Main OR PostOp Case Times Audit 04/09/19 15:41:21 Production Shift Supervisor: RON Modifier: RON <+> 1 Ready for PACU II Discharge <+> 1 Discharge from PACU II Finalized By: Jammie Pitts, RN Document Signatures Signed By: Jammie Pitts RN 04/09/19 15:41 documented in this encounter Plan of Treatment Not on file documented as of this encounter Visit Diagnoses Not on filedocumented in this encounter Care Teams Pastry Decorator Relationship Specialty Start Date End Date Alan Beyer MD [address] [place] [address] PCP - General Family Medicine 06/08/23 documented as of this encounter
--- OUTSIDE RECORDS SUMMARY | 2024-11-27 14:57 | XMS_ITS | Encounter Summary ---
Author Organization [employer] ([place], [place], [place], [place]) Address [address] [place] [address] Care Team Providers Care Band Straightener Name Role Phone Alan Beyer MD Primary Care Provider [phone] Encounter Details Date Type Department Care Team (Late st Contact Info) Description 02/02/2019 Transcribed Document [facility] [place] [address] [place] [address] ProviderJessenia MD [address] [place], [place] [id number] Social History Tobacco Use Types Packs/Day Years Used Date Smoking Tobacco: Never Assessed Comments Unknown Sex and Gender Information Value Date Recorded Sex Assigned at Not on file Legal Sex Female 4:28 PM CDT Gender Identity Not on file Sexual Orientation Not on file documented as of this encounter Miscellaneous Notes * Cerner Conversion Note - Jessenia ProviderMD - 02/02/2019 2:58 PM CDT Pain Assessment Entered On: 02/02/2019 16:52 EDT Performed On: 02/02/2019 16:52 EDT by Karie Goodwin, RN Intervention Information: HYDROmorphone Performed by Karie Goodwin, RN on 02/02/2019 15:25:00 EDT HYDROmorphone,0.5mg IV Push,Peripheral Line 1 Pain Assessment Pain Assessment : Follow-up assessment Karie Goodwin, ELVER - 02/02/2019 16:52 EDT Electronically signed by Jannette [facility] Conversion Director Geophysical Laboratory Cerner at 08/31/2022 5:06 PM CDT documented in this encounter Plan of Treatment Not on file documented as of this encounter Visit Diagnoses Not on filedocumented in this encounter Care Teams Band Straightener Relationship Specialty Start Date End Date Alan Beyer MD [address] [place] [address] PCP - General Family Medicine 06/08/23 documented as of this encounter
--- OUTSIDE RECORDS SUMMARY | 2024-11-27 14:57 | XMS_ITS | Encounter Summary ---
Author Organization [employer] ([place], [place], [place], [place]) Address [address] [place] [address] Care Team Providers Care Golf Course Starter Name Role Phone Alan Beyer MD Primary Care Provider [phone] Encounter Details Date Type Department Care Team (Late st Contact Info) Description 04/09/2019 Transcribed Document [facility] [place] [facility] [place] [address] ProviderJessenia MD [address] [place], [place] [address] Social History Tobacco Use Types Packs/Day Years Used Date Smoking Tobacco: Never Assessed Comments Unknown Sex and Gender Information Value Date Recorded Sex Assigned at Not on file Legal Sex Female 4:28 PM CDT Gender Identity Not on file Sexual Orientation Not on file documented as of this encounter Miscellaneous Notes * Cerner Conversion Note - Jessenia Alvarez MD - 04/09/2019 6:18 PM HYDROLOGICAL TECHNICAL OFFICER DATE OF PROCEDURE: 04/09/2019 SURGEON: Yamil Rehman [...] times a week in 1st week postop. /[id number] MD FRANCISCA Cardozo Jr/JYOTHI / FRANCISCA / MODL /[id number] Electronically signed by Jannette [facility] Conversion Rear Load Truck Driver Cerner at 08/31/2022 5:05 PM CDT documented in this encounter Plan of Treatment Not on file documented as of this encounter Visit Diagnoses Not on filedocumented in this encounter Care Teams Golf Course Starter Relationship Specialty Start Date End Date Alan Beyer MD [address] [place], [place] [id number] PCP - General Family Medicine 06/08/23 documented as of this encounter
--- OUTSIDE RECORDS SUMMARY | 2024-11-27 14:57 | XMS_ITS | Encounter Summary ---
Author Organization [employer] ([place], [place], [place], [place]) Address [address] [place] [address] Care Team Providers Care Machine Clothing Replacer Name Role Phone Alan Beyer MD Primary Care Provider [phone] Encounter Details Date Type Department Care Team (Late st Contact Info) Description 02/02/2019 Transcribed Document [facility] [place] Family Medicine [address] [place] [address] ProviderJessenia MD [address] [place] [address] Social History Tobacco Use Types Packs/Day Years Used Date Smoking Tobacco: Never Assessed Comments Unknown Sex and Gender Information Value Date Recorded Sex Assigned at Not on file Legal Sex Female 4:28 PM CDT Gender Identity Not on file Sexual Orientation Not on file documented as of this encounter Miscellaneous Notes * Cerner Conversion Note - Jessenia ProviderMD - 02/02/2019 12:50 PM CDT Pain Assessment [...] filedocumented in this encounter Care Teams Machine Clothing Replacer Relationship Specialty Start Date End Date Alan Beyer MD [address] [place] [address] PCP - General Family Medicine 06/08/23 documented as of this encounter
--- OUTSIDE RECORDS SUMMARY | 2024-11-27 14:57 | XMS_ITS | Encounter Summary ---
Author Organization [facility] Address [address] [place] [address] Care Team Providers Care Customs And Border Protection Officer Name Role Phone Alan Beyer MD Primary Care Provider [phone] Encounter Details Date Type Department Care Team (Late st Contact Info) Description 11/19/2024 Orders Only [facility] [address] [address] Elias De La Cruz MD [address] [place] [address] Right carpal tunnel syndrome (Primary Dx) Social History [...] 12/31/2024 9:25 AM EDT Hospital Encounter [facility] [address] [place] [address] Elias De La Cruz MD [address] [place] [address] 12/31/2024 9:25 AM EDT - 12/31/2024 10:00 AM EDT Surgery [facility] [address] [facility] [address] [place] [address] Elias De La Cruz MD [address] [place] [address] CARPAL TUNNEL RELEASE ENDOSCOPIC 01/14/2025 8:45 AM EDT Office Visit [facility] [address] [place] [address] Shira Ambrose PA-C [address] [place] [address] Scheduled Orders Name Type Priority Associated Diagnoses Orde r Schedule SURGICAL/PROCEDURE CASE REQUEST - [facility] Procedures Routine Right carpal tunnel syndrome Ordered: 11/19/2024 Scheduled Procedures Name Priority Associated Diagnoses Date/Ti me CARPAL TUNNEL RELEASE ENDOSCOPIC Right carpal tunnel syndrome 12/31/2024 9:25 AM EDT CARPAL TUNNEL RELEASE Right carpal tunnel syndrome 12/31/2024 9:25 AM EDT documented as of this encounter Visit Diagnoses Diagnosis Right carpal tunnel syndrome- Primary Carpal tunnel syndrome Right carpal tunnel syndrome Carpal tunnel syndrome documented in this encounter Care Teams Customs And Border Protection Officer Relationship Specialty Start Date End Date Alan Beyer MD PCP - General Family Medicine 10/05/24 documented as of this encounter
--- OUTSIDE RECORDS SUMMARY | 2024-11-27 14:57 | XMS_ITS | Encounter Summary ---
Author Organization [employer] ([place], [place], [place], [place]) Address [address] [place] [address] Care Team Providers Care Chief Data Officer Name Role Phone Alan Beyer MD Primary Care Provider [phone] Encounter Details Date Type Department Care Team (Late st Contact Info) Description 12/23/2020 Transcribed Document [facility] [place] [facility] [place] [address] ProviderJessenia MD [address] [place], [place] [id number] Social History Tobacco Use Types Packs/Day Years Used Date Smoking Tobacco: Never Assessed Comments Unknown Sex and Gender Information Value Date Recorded Sex Assigned at Not on file Legal Sex Female 4:28 PM CDT Gender Identity Not on file Sexual Orientation Not on file documented as of this encounter Miscellaneous Notes * Cerner Conversion Note - Jessenia ProviderMD - 12/23/2020 9:39 AM CDT Broset Violence Assessment Entered On: 12/23/2020 10:16 EDT Performed On: 12/23/2020 10:14 EDT by Suyapa An RN-PATIENT CARE BEDSIDE NON-EXEMPT Broset Violence Assessment Broset Violence Checklist of Symptoms : None Broset Violence Symptoms Subtotal : 0 Broset Violence Symptoms Indicator : Low risk (0) Suyapa An RN-PATIENT CARE BEDSIDE NON-EXEMPT - 12/23/2020 10:14 EDT Electronically signed by Trevon Bhatia Conversion Statistical Methods Professor Cerner at 08/31/2022 5:14 PM CDT documented in this encounter Plan of Treatment Not on file documented as of this encounter Visit Diagnoses Not on filedocumented in this encounter Care Teams Chief Data Officer Relationship Specialty Start Date End Date Alan Beyer MD [address] [place] [address] PCP - General Family Medicine 06/08/23 documented as of this encounter
--- OUTSIDE RECORDS SUMMARY | 2024-11-27 14:57 | XMS_ITS | Encounter Summary ---
Author Organization [employer] ([place], [place], [place], [place]) Address [address] [place] [address] Care Team Providers Care Health And Wellness Coach Name Role Phone Alan Beyer MD Primary Care Provider [phone] Encounter Details Date Type Department Care Team (Late st Contact Info) Description 06/06/2018 Transcribed Document [facility] [place] [facility] [place] [address] ProviderJessenia MD [address] [place] [address] Social History Tobacco Use Types [...] - Jessenia ProviderMD - 06/06/2018 2:00 AM MULTIMEDIA EDUCATIONAL SPECIALIST Artificial Flower Maker Details Entered On: 06/06/2018 5:14 EST Performed [...] filedocumented in this encounter Care Teams Health And Wellness Coach Relationship Specialty Start Date End Date Alan Beyer MD [address] [place] [id number] PCP - General Family Medicine 06/08/23 documented as of this encounter
--- OUTSIDE RECORDS SUMMARY | 2024-11-27 14:57 | XMS_ITS | Encounter Summary ---
Author Organization [employer] ([place], [place], [place], [place]) Address [address] [place] [address] Care Team Providers Care Qualification Engineer Name Role Phone Alan Beyer MD Primary Care Provider Encounter Details Date Type Department Care Team (Late st Contact Info) Description 09/14/2021 Transcribed Document [facility] [place] Family Medicine [address] [place] [address] ProviderJessenia MD [address] [place] [address] Social History Tobacco Use Types [...] Date Manny rded Speak language other than Korean at home Not on file 05/23/2023 Want [...] Conversion Note - Historical Provider, - 09/14/2021 4:18 PM CDT CR Chest 1 Vw Portable Ordered: 09/14/2021 Modified Reason for Exam: Chest Pain 09/14/2021 15:19 09/14/2021 16:18 (JENNIFER HOWELL PA) Reviewed by Provider, No further action required x1 Electronically signed by [facility], [facility] Conversion Director Loan Cerner at 08/31/2022 5:19 PM CDT documented in this encounter Plan of Treatment Not on file documented as of this encounter Visit Diagnoses Not on filedocumented in this encounter Care Teams Qualification Engineer Relationship Specialty Start Date End Date Alan Beyer MD [address] [place] [address] PCP - General Family Medicine 06/08/23 documented as of this encounter
--- OUTSIDE RECORDS SUMMARY | 2024-11-27 14:57 | XMS_ITS | Encounter Summary ---
Author Organization [employer] ([place], [place], [place], [place]) Address [address] [place] [address] Care Team Providers Care Machine Driller Name Role Phone Alan Beyer MD Primary Care Provider [phone] Encounter Details Date Type Department Care Team (Late st Contact Info) Description 12/23/2020 Transcribed Document [facility] [place] [facility] [place] [address] ProviderJessenia MD [address] [place] [address] Social History Tobacco Use Types Packs/Day [...] Alvarez MD - 12/23/2020 2:01 PM CDT [place] [id number] CHARLINE BOND :1980 Visit Time:12/23/2020 Your Visit [...] 2 to 3 days Where: [address] [place] [address]- Business (1) Allergies Bactrim acetaminophen-oxyCODONE clindamycin Toradol [...] Medicines to relieve symptoms. These can include qozt-xmb-cfkhkoi medicine for pain and fever, medicines for [...] these instructions at home: Medicines ??? Take ximi-slc-pgngozg and prescription medicines only as told by [...] and water are not available, use hand humanities professor. ??? Avoid close contact with friends and [...] provider. Document Revised: 04/12/2018 Document Reviewed: 09/08/2016 [employer] Patient Education ?? 2020 [place]. Emergency Awareness and Preventative Care STROKE is [...] Assistance with quitting is available by contacting 7-272-LUOY-NOW. This is a free resource providing counseling, [...] was given the opportunity to ask questions. Patient/Biology Department Chair Name: Patient/Biology Department Chair Signature: Relationship to Patient: Clinician/Hospital Biology Department Chair Signature: Please Provide a Telephone Number Where You Can Be Reached: Is it Permissible To Leave a Message? Date: Electronically signed by Jannette, [facility] Conversion Defensive Driving Instructor Cerner at 08/31/2022 5:24 PM CDT documented in this encounter Plan of Treatment Not on file documented as of this encounter Visit Diagnoses Not on filedocumented in this encounter Care Teams Machine Driller Relationship Specialty Start Date End Date Alan Beyer MD [address] [place] [address] PCP - General Family Medicine 06/08/23 documented as of this encounter
--- OUTSIDE RECORDS SUMMARY | 2024-11-27 14:57 | XMS_ITS | Encounter Summary ---
Author Organization [employer] ([place], [place], [place], [place]) Address [address] [place] [address] Care Team Providers Care Duck Bill Operator Name Role Phone Alan Beyer MD Primary Care Provider [phone] Encounter Details Date Type Department Care Team (Late st Contact Info) Description 02/02/2019 Transcribed Document [facility] [place] [address] [place] [address] ProviderJessenia MD [address] [place], [place] [address] Social History Tobacco Use Types Packs/Day Years Used Date Smoking Tobacco: Never Assessed Comments Unknown Sex and Gender Information Value Date Recorded Sex Assigned at Not on file Legal Sex Female 4:28 PM CDT Gender Identity Not on file Sexual Orientation Not on file documented as of this encounter Miscellaneous Notes * Cerner Conversion Note - Jessenia ProviderMD - 02/02/2019 4:33 PM CDT Electronically signed by Jannette [facility] Conversion [employer] Delivery Driver Cerner at 08/31/2022 5:18 PM CDT documented in this encounter Plan of Treatment Not on file documented as of this encounter Visit Diagnoses Not on filedocumented in this encounter Care Teams Duck Bill Operator Relationship Specialty Start Date End Date Alan Beyer MD [address] [place] [address] PCP - General Family Medicine 06/08/23 documented as of this encounter
--- OUTSIDE RECORDS SUMMARY | 2024-11-27 14:57 | XMS_ITS | Encounter Summary ---
Author Organization [employer] ([place], [place], [place], [place]) Address [address] [place] [address] Care Team Providers Care Community Theater Actor Name Role Phone Alan Beyer MD Primary Care Provider [phone] Encounter Details Date Type Department Care Team (Late st Contact Info) Description 12/23/2020 Transcribed Document [facility] [place] [address] ProviderJessenia MD [address] [place] [address] [id number] Social History Tobacco Use Types Packs/Day Years [...] I have reviewed it.. Surgical history: Clavicle ([id number]). Tympanostomy ([id number]). Adenoids (712584170). shoulder surgery. Gallbladder absent (019839527). Tubal ligation (068225215). Hysterectomy (946356050). Right knee ([id number]). Comments: 05/03/2020 15:32 Jyoti Tilley Rn menisectomy. [...] EDT Height Source Stated Height Entry Format [place] Height/Length, VENEZUELAN (ft) 5 ft Height/Length VENEZUELAN 5 Inch CLINICALHEIGHT 165.1 cm [place] Body Weight 56.59 kg Weight Source, ED Critical estimated dosing weight Weight Entry Format [place] Weight Serbian lb 165 lb CLINICALWEIGHT 75 kg Body [...] on filedocumented in this encounter Care Teams Community Theater Actor Relationship Specialty Start Date End Date Alan Beyer MD [address] [place] [address] PCP - General Family Medicine 06/08/23 documented as of this encounter
--- OUTSIDE RECORDS SUMMARY | 2024-11-27 14:57 | XMS_ITS | Encounter Summary ---
Author Organization [employer] ([place], [place], [place], [place]) Address [address] [place] [address] Care Team Providers Care Senior Capital Markets Specialist Name Role Phone Alan Beyer MD Primary Care Provider [phone] Encounter Details Date Type Department Care Team (Late st Contact Info) Description 02/02/2019 Transcribed Document [facility] Family Medicine [address] [place] [address] ProviderJessenia MD [address] [place], [place] [address] Social History Tobacco Use Types Packs/Day Years Used Date Smoking Tobacco: Never Assessed Comments Unknown Sex and Gender Information Value Date Recorded Sex Assigned at Not on file Legal Sex Female 4:28 PM CDT Gender Identity Not on file Sexual Orientation Not on file documented as of this encounter Miscellaneous Notes * Cerner Conversion Note - Jessenia ProviderMD - 02/02/2019 11:17 AM CDT ED Assessment [...] Communication Barrier : None Primary Language : Occitan Any Spiritual/Cultural Needs or Requests : No [...] Genitourinary Assessment WDL : WDL with exceptions Urine Color : Tea Karie Goodwin RN - 02/02/2019 12:11 EDT Musculoskeletal Musculoskeletal Assessment WDL : Karie Escoto RN - 02/02/2019 12:11 EDT Integumentary Assessment Integumentary Assessment WDL : Karie Escoto RN - 02/02/2019 12:11 EDT Neurologic ASMT, ED Neurologic Assessment WDL : Karie Escoto RN - 02/02/2019 12:11 EDT Electronically signed by Jannette, [facility] Conversion Dermatology Teacher Cerner at 08/31/2022 5:11 PM CDT documented in this encounter Plan of Treatment Not on file documented as of this encounter Visit Diagnoses Not on filedocumented in this encounter Care Teams Senior Capital Markets Specialist Relationship Specialty Start Date End Date Alan Beyer MD [address] [place], [place] [id number] PCP - General Family Medicine 06/08/23 documented as of this encounter
--- OUTSIDE RECORDS SUMMARY | 2024-11-27 14:57 | XMS_ITS | Encounter Summary ---
Author Organization [employer] ([place], [place], [place], [place]) Address [address] [place] [address] Care Team Providers Care Applications Processor Name Role Phone Alan Beyer MD Primary Care Provider [phone] Encounter Details Date Type Department Care Team (Late st Contact Info) Description 06/05/2018 Transcribed Document [facility] [place] Family Medicine [address] [place] [address] ProviderJessenia MD [address] [place], [place] [phone] Social History Tobacco Use Types Packs/Day Years Used Date Smoking Tobacco: Never Assessed Comments Unknown Sex and Gender Information Value Date Recorded Sex Assigned at Not on file Legal Sex Female 4:28 PM CDT Gender Identity Not on file Sexual Orientation Not on file documented as of this encounter Miscellaneous Notes * Cerner Conversion Note - Historical ProviderMD - 06/05/2018 11:45 AM MERCERIZING RANGE FEEDER [facility] Main OR PreOp Summary Primary Physician: DORIS BRANCH DO Finalized Date/Time: 06/05/18 17:54:56 Pt. Name: MELISSACHARLINE MCINTYRE DENIZ /Sex: 1980 Female Med Rec #: [id number] Physician: DORIS BRANCH DO Financial #: [id number] Pt. Type: O Room/Bed: [facility]/ Admit/Disch: 06/05/18 04:59:00 - Institution: [facility] [place] PreOp Case Times Entry 1 In Preop 06/05/18 07:55:00 Ready for Holding n/a Room Patient Ready for 06/05/18 09:30:00 Surgery Patient Out of Preop 06/05/18 11:15:00 Patient Out of 06/05/18 11:15:00 Holding Room Last Modified By: Laura Eason RN 06/05/18 17:54:54 SJE PreOp Case Times Audit 06/05/18 17:54:54 Machine Puller Over: [id number] Modifier: [email or web address] <+> 1 Patient Out of Preop <+> 1 Patient Out of Holding Room Finalized By: Laura Eason, RN Document Signatures Signed By: Laura Eason RN 06/05/18 17:54 documented in this encounter Plan of Treatment Not on file documented as of this encounter Visit Diagnoses Not on filedocumented in this encounter Care Teams Applications Processor Relationship Specialty Start Date End Date Alan Beyer MD [address] [place] [address] PCP - General Family Medicine 06/08/23 documented as of this encounter
--- OUTSIDE RECORDS SUMMARY | 2024-11-27 14:57 | XMS_ITS | Encounter Summary ---
Author Organization [employer] ([place], [place], [place], [place]) Address [address] [place] [address] Care Team Providers Care Youth Development Specialist Name Role Phone Alan Beyer MD Primary Care Provider [phone] Encounter Details Date Type Department Care Team (Late st Contact Info) Description 04/09/2019 Transcribed Document [facility] [place] [address] [place] [address] ProviderJessenia MD [address] [place], [place] [id number] Social History Tobacco Use Types Packs/Day Years Used Date Smoking Tobacco: Never Assessed Comments Unknown Sex and Gender Information Value Date Recorded Sex Assigned at Not on file Legal Sex Female 4:28 PM CDT Gender Identity Not on file Sexual Orientation Not on file documented as of this encounter Miscellaneous Notes * Cerner Conversion Note - Jessenia Alvarez MD - 04/09/2019 3:16 PM LEAF STICKER Patient Education Materials Follows: Incentive Spirometer An [...] 09/10/2007 Document Revised: 01/22/2017 Document Reviewed: 12/07/2014 [employer] Interactive Patient Education ? 2018 Personal Estate Manager. Crutch Use, Adult Crutches are used to [...] 10/16/2008 Document Revised: 12/12/2017 Document Reviewed: 10/20/2016 [employer] Interactive Patient Education ? 2019 [employer] General Anesthesia, Adult, Care After This [...] activities are safe for you. ??? Take rzve-ayh-tjhofab and prescription medicines only as told by [...] 08/06/2001 Document Revised: 12/14/2017 Document Reviewed: 12/14/2017 [employer] Interactive Patient Education ? 2019 [employer] Knee Arthroscopy, Care After Refer to [...] activities are safe for you. ??? Perform mfrfp-ww-xthqeb exercises only as directed by your health [...] 11/17/2005 Document Revised: 09/29/2016 Document Reviewed: 04/26/2015 [employer] Interactive Patient Education ? 2018 Personal Estate Manager. Electronically signed by Trevon Bhatia Conversion Ethylene Oxide Panelboard Operator Cerner at 08/31/2022 5:15 PM CDT documented in this encounter Plan of Treatment Not on file documented as of this encounter Visit Diagnoses Not on filedocumented in this encounter Care Teams Youth Development Specialist Relationship Specialty Start Date End Date Alan Beyer MD [address] [place] [address] PCP - General Family Medicine 06/08/23 documented as of this encounter
--- OUTSIDE RECORDS SUMMARY | 2024-11-27 14:57 | XMS_ITS | Encounter Summary ---
Author Organization [employer] ([place], [place], [place], [place]) Address [address] [place] [address] Care Team Providers Care Headwaiter/Headwaitress Name Role Phone Alan Beyer MD Primary Care Provider [phone] Encounter Details Date Type Department Care Team (Late st Contact Info) Description 12/23/2020 Transcribed Document [facility] [place] [facility] [place] [address] ProviderJessenia MD [address] [place] [id number] Social History Tobacco Use Types Packs/Day Years [...] on filedocumented in this encounter Care Teams Headwaiter/Headwaitress Relationship Specialty Start Date End Date Alan Beyer MD [address] [place] [address] PCP - General Family Medicine 06/08/23 documented as of this encounter
--- OUTSIDE RECORDS SUMMARY | 2024-11-27 14:57 | XMS_ITS | Encounter Summary ---
Author Organization [employer] ([place], [place], [place], [place]) Address [address] [place] [address] Care Team Providers Care Style Advisor Name Role Phone Alan Beyer MD Primary Care Provider [phone] Encounter Details Date Type Department Care Team (Late st Contact Info) Description 12/23/2020 Transcribed Document [facility] [place] Family Medicine [facility] [place] [address] ProviderJessenia MD [address] [place] [phone] Social History Tobacco Use Types Packs/Day Years [...] : 3 - Urgent Tracking Group : [facility] VANDANA RENNER RN - 12/23/2020 [...] 12/23/2020 09:43:23 EDT) Problems(Active) Anxiety (SNOMED CT :22693882 ) Name of Problem: Anxiety ; Recorder: ERICKA ISSA RN; Confirmation: Confirmed ; Classification: Medical ; Code: [id number] ; Contributor System: PowerChart ; Last Updated: 07/26/2015 22:28 EDT ; Life Cycle Date: 07/26/2015 ; Life Cycle Status: Active ; Vocabulary: SNOMED CT Endometriosis, vagina (SNOMED CT :35286491 ) Name of Problem: Endometriosis, vagina ; Recorder: Breanna Ivey RN; Confirmation: Confirmed ; Classification: Medical ; Code: 46489635 ; Contributor System: PowerChart ; Last Updated: 05/24/2018 10:54 EST ; Life Cycle Date: 05/24/2018 ; Life Cycle Status: Active ; Vocabulary: SNOMED CT Kidney stones (SNOMED CT :720073508 ) Name of Problem: Kidney stones ; Recorder: KAYY ANDREW; Confirmation: Confirmed ; Classification: Medical ; Code: [id number] ; Contributor System: Force-AChart ; Last Updated: 06/06/2016 9:30 EST ; Life Cycle Date: 06/06/2016 ; Life Cycle Status: Active ; Vocabulary: SNOMED CT Migraine (SNOMED CT :97117653 ) Name of Problem: Migraine ; Recorder: ERICKA SISA RN; Confirmation: Confirmed ; Classification: Medical ; Code: 35818587 ; Contributor System: PowerChart ; Last Updated: 07/26/2015 22:28 EDT ; Life Cycle Date: 07/26/2015 ; Life Cycle Status: Active ; Vocabulary: SNOMED CT S/P hysterectomy (SNOMED CT :884380635 ) Name of Problem: S/P hysterectomy ; Recorder: LEONID CASTANEDA RN; Confirmation: Confirmed ; Classification: Medical ; Code: [id number] ; Contributor System: PowerChart ; Last Updated: 11/06/2019 20:08 EDT ; Life Cycle Date: 11/06/2019 ; Life Cycle Status: Active ; Vocabulary: SNOMED CT Shoulder pain, left (SNOMED CT :11561323 ) Name of Problem: Shoulder pain, left ; Recorder: Breanna Ivey RN; Confirmation: Confirmed ; Classification: Medical ; Code: 47766471 ; Contributor System: Force-AChart ; Last Updated: 05/24/2018 10:53 EST ; Life Cycle Date: 05/24/2018 ; Life Cycle Status: Active ; Vocabulary: SNOMED CT Diagnoses(Active) Body aches Date: 12/23/2020 ; Diagnosis Type: Reason For Visit ; Confirmation: Complaint of ; Clinical Dx: Body aches ; Classification: Medical ; Clinical Service: Emergency medicine ; Code: PNED ; Probability: 0 ; Diagnosis Code: [id number] ED Height and Weight Height Source : Stated Height Entry Format : [place] Height, Feet : 5 ft(Converted to: 152 cm, 60 Inch) Height, Inches : 5 Inch(Converted to: 0 ft 5 Inch, 12.70 cm) Clinical Height : 165.1 cm Weight Source, ED : Critical estimated dosing weight Weight Entry Format : [place] Weight, Pounds : 165 lb Clinical Dosing Weight : 75 kg Body Surface Area (BSA) : 1.82 m2 Body Mass Index : 27.5 kg/m2 (HI) [place] Body Weight (IBW) : 56.59 kg VANDANA RENNER RN - 12/23/2020 9:41 EDT Electronically signed by [facility], [facility] Conversion Roll Tension Tester Cerner at 08/31/2022 5:26 PM CDT documented in this encounter Plan of Treatment Not on file documented as of this encounter Visit Diagnoses Not on filedocumented in this encounter Care Teams Style Advisor Relationship Specialty Start Date End Date Alan Beyer MD [address] [place] [address] PCP - General Family Medicine 06/08/23 documented as of this encounter
--- OUTSIDE RECORDS SUMMARY | 2024-11-27 14:57 | XMS_ITS | Encounter Summary ---
Author Organization [employer] ([place], [place], [place], [place]) Address [address] [place] [address] Care Team Providers Care Engagement Executive Name Role Phone Alan Beyer MD Primary Care Provider [phone] Encounter Details Date Type Department Care Team (Late st Contact Info) Description 12/23/2020 Transcribed Document [facility] [place] [facility] [place] [address] ProviderJessenia MD [address] [place] [phone] Social History Tobacco Use Types Packs/Day Years [...] Communication Barrier : None Primary Language : Telugu Any Spiritual/Cultural Needs or Requests : No Currently in Unsafe Situation : No Nataliya, Suyapa, RN-PATIENT CARE BEDSIDE NON-EXEMPT - 12/23/2020 10:14 [...] Updated: 05/24/2018 10:39:04 EST by Breanna Ivey, ELVRE) Substance Abuse: Drug Use Hx: No. Use [...] - 12/23/2020 10:14 EDT Electronically signed by Jannette, [facility] Conversion Venetian Blind Cleaner And Repairer Cerner at 08/31/2022 5:13 PM CDT documented in this encounter Plan of Treatment Not on file documented as of this encounter Visit Diagnoses Not on filedocumented in this encounter Care Teams Engagement Executive Relationship Specialty Start Date End Date Alan Beyer MD [address] [place] [address] PCP - General Family Medicine 06/08/23 documented as of this encounter
--- OUTSIDE RECORDS SUMMARY | 2024-11-27 14:57 | XMS_ITS | Encounter Summary ---
Author Organization [employer] ([place], [place], [place], [place]) Address [address] [place] [address] Care Team Providers Care Technical Staff Assistant Name Role Phone Alan Beyer MD Primary Care Provider [phone] Encounter Details Date Type Department Care Team (Late st Contact Info) Description 04/09/2019 Transcribed Document [facility] [place] [address] [place] [address] ProviderJessenia MD [address] [place] [address] Social History Tobacco Use Types [...] Jessenia Alvarez MD - 04/09/2019 9:42 AM TRANSPORTATION PLANNER Pediatric Growth Entered On: 04/09/2019 9:43 EST Performed On: 04/09/2019 9:42 EST by Talia Eason RN Height and Weight, Clinical Dosing Height Source : Stated Height Entry Format : [place] Height, Feet : 5 ft(Converted to: 152 cm, 60 Inch) Height, Inches : 5 Inch(Converted to: 0 ft 5 Inch, 12.70 cm) Clinical Height : 165.1 cm Weight Source : Standing scale Weight Entry Format : [place] Clinical Dosing Weight : 76.36 kg Weight, Pounds : 168 lb Body Surface Area (BSA) : 1.84 m2 Body Mass Index : 28 kg/m2 (HI) [place] Body Weight : 57 kg Talia Eason, RN - 04/09/2019 9:42 EST Electronically signed by Jannette [facility] Conversion Merchandise Flow Team Member Cerner at 08/31/2022 5:24 PM CDT documented in this encounter Plan of Treatment Not on file documented as of this encounter Visit Diagnoses Not on filedocumented in this encounter Care Teams Technical Staff Assistant Relationship Specialty Start Date End Date Alan Beyer MD [address] [place] [address] PCP - General Family Medicine 06/08/23 documented as of this encounter
--- OUTSIDE RECORDS SUMMARY | 2024-11-27 14:57 | XMS_ITS | Encounter Summary ---
Author Organization [employer] ([place], [place], [place], [place]) Address [address] [place] [address] Care Team Providers Care Property Staff Accountant Name Role Phone Alan Beyer MD Primary Care Provider [phone] Encounter Details Date Type Department Care Team (Late st Contact Info) Description 02/02/2019 Transcribed Document [facility] [place] Family Medicine [address] [place] [address] ProviderJessenia MD [address] [place], [place] [address] Social History Tobacco Use Types Packs/Day Years Used Date Smoking Tobacco: Never Assessed Comments Unknown Sex and Gender Information Value Date Recorded Sex Assigned at Not on file Legal Sex Female 4:28 PM CDT Gender Identity Not on file Sexual Orientation Not on file documented as of this encounter Miscellaneous Notes * Cerner Conversion Note - Jessenia ProviderMD - 02/02/2019 4:53 PM CDT ED Discharge Vital Signs Entered On: 02/02/2019 16:53 EDT Performed On: 02/02/2019 16:53 EDT by Karie Goodwin RN ED Discharge Vital Signs Peripheral Pulse Rate : 80 bpm Respiratory Rate : 20 Breaths/Min Oxygen Saturation : 100 % Oxygen Therapy Mode : Room air Karie Goodwin RN - 02/02/2019 16:53 EDT Electronically signed by Jannette [facility] Conversion Pet Adoption Counselor Cerner at 08/31/2022 4:58 PM CDT documented in this encounter Plan of Treatment Not on file documented as of this encounter Visit Diagnoses Not on filedocumented in this encounter Care Teams Property Staff Accountant Relationship Specialty Start Date End Date Alan Beyer MD [address] [place] [address] PCP - General Family Medicine 06/08/23 documented as of this encounter
--- OUTSIDE RECORDS SUMMARY | 2024-11-27 14:57 | XMS_ITS | Encounter Summary ---
Author Organization [employer] ([place], [place], [place], [place]) Address [address] [place] [address] Care Team Providers Care Flatwork Tier Name Role Phone Alan Beyer MD Primary Care Provider [phone] Encounter Details Date Type Department Care Team (Late st Contact Info) Description 04/09/2019 Transcribed Document [facility] [place] [address] [place] [address] ProviderJessenia MD [address] [place], [place] [id number] Social History Tobacco Use Types Packs/Day Years Used Date Smoking Tobacco: Never Assessed Comments Unknown Sex and Gender Information Value Date Recorded Sex Assigned at Not on file Legal Sex Female 4:28 PM CDT Gender Identity Not on file Sexual Orientation Not on file documented as of this encounter Miscellaneous Notes * Cerner Conversion Note - Jessenia ProviderMD - 04/09/2019 1:35 PM MANAGEMENT CONSULTING [facility] Main OR IntraOp Summary Primary Physician: JESUS EDWARDS JR, JR, MD-ORT Finalized Date/Time: 04/09/19 13:56:37 Pt. Name: REFUGIO BOND /Sex: 1980 Female Med Rec #: [id number] Physician: JESUS EDWARDS JR, JR, MD-ORT Financial #: [id number] Pt. Type: O Room/Bed: Admit/Disch: 04/09/19 09:13:00 - Institution: [facility] Case Attendance Entry 1 Entry 2 Entry 3 Case Attendee JERRY MONTOYA, JESUS MONTOYA, MEGA BROOKS CRNA LONGSWORTH, GARY, ELVER NUNEZ-ORT Role Performed Surgeon/Proceduralist, BRIDGE MANAGER/Nurse Printed Products Assembler Neuro Psych Sales Specialist, First First Time In 04/09/19 13:25:00 04/09/19 [...] Elver Cali, CALEB Hallman RN Role Performed Neuro Psych Sales Specialist, Second Scrub, First Assistive Personnel Time In [...] Closed By: Last Modified By: REID RENNER, ELVER 04/09/19 13:39:03 [facility] Case Attendance Audit 04/09/19 13:52:46 Medical Biller/Coder: KHOA Modifier: LONGGA 1 <*> Procedure Knee Arthroscopy 2 <+> Time Out 2 <*> Procedure Knee Arthroscopy 3 <+> Time Out 3 <*> Procedure Knee Arthroscopy 4 <+> Time Out 4 <*> Procedure Knee Arthroscopy 5 <+> Time Out 5 <*> Procedure Knee Arthroscopy 6 <+> Time Out 6 <*> Procedure Knee Arthroscopy 7 <*> Procedure Knee Arthroscopy 04/09/19 13:51:20 Medical Biller/Coder: LONGGA Modifier: LONGGA 1 <+> Time Out 1 <*> Procedure Knee Arthroscopy 04/09/19 13:47:13 Medical Biller/Coder: LONGGA Modifier: LONGGA 7 <+> Time Out 7 <*> Procedure Knee Arthroscopy 04/09/19 13:44:22 Medical Biller/Coder: LONGGA Modifier: LONGGA <+> 1 Procedure 2 <*> Procedure Knee Arthroscopy 3 <*> Procedure Knee Arthroscopy 4 <*> Procedure Knee Arthroscopy 5 <*> Procedure Knee Arthroscopy 6 <*> Procedure Knee Arthroscopy 7 <*> Procedure Knee Arthroscopy 04/09/19 13:39:03 Medical Biller/Coder: LONGGA Modifier: LONGGA <+> 1 Time In [...] Procedure <+> 7 Other Attendee 04/09/19 13:07:34 Medical Biller/Coder: ETHANGA Modifier: LONGGA <+> 2 Case Attendee <+> [...] [facility] Case Times Audit 04/09/19 13:52:26 Medical Biller/Coder: LONGGA Modifier: LONGGA <+> 1 Out Room Time <+> 1 Stop Time 04/09/19 13:46:17 Medical Biller/Coder: LONGGA Modifier: LONGGA <+> 1 Stop Time [...] MEGA BROOKS, Accompanied by JUD VILLA GARY, RN, MEGA BROOKS CRNA Last Modified By: REID RENNER RN 04/09/19 13:53:05 [facility] Dressing and Packing Entry 1 Type Dressing Location RIGHT KNEE Wound Dressing Item 4x4's, Xeroform, Gwyn, Webril Supplemental Cold pack Applications Applied By CALEB PRATT RN Last Modified By: REID RENNER RN 04/09/19 13:52:14 [facility]Op Dressing and Packing Audit 04/09/19 13:52:14 Medical Biller/Coder: LONGGA Modifier: LONGGA 1 <*> Applied By Denzel Cali 1 <+> Supplemental Applications [facility] IntraOp Fire Risk [...] IntraOp Fire Risk Assessment Audit 04/09/19 13:07:56 Medical Biller/Coder: LONGGA Modifier: LONGGA <+> 1 Fire Risk Assessment Verified By <+> 1 High Risk Protocol Implemented [facility] Intra[facility] General Case Option Trader 1 Case Information OR OR 02 [facility] Case Level 1 Room Verified Yes Wound Class I - Clean Specialty SN Orthopedic Anesthesia Type General ASA Class 2 Diagnosis Preop Diagnosis MEDIAL MENISACL TEAR, RIGHT KNEE Postop Same As Preop No Postop Diagnosis DICTATED BY Carolynn Last Modified By: REID RENNER RN 04/09/19 13:40:22 [facility] General Case Data Audit 04/09/19 13:40:22 Medical Biller/Coder: LONGGA Modifier: LONGGA <+> 1 ASA Class 04/09/19 13:08:30 Medical Biller/Coder: LONGGA Modifier: LONGGA <+> 1 Anesthesia Type [...] 1 Medication/Irrigant Marcaine 0.25% 10ml vial - [id number] Route of LOCAL Administration Dose Volume 30 Administered By JESUS EDWARDS JR, JR, MD-ORMark Procedure Irrigation Last Modified By: REID RENNER [...] Intra Op Sign Out Audit 04/09/19 13:52:44 Medical Biller/Coder: KHOA Modifier: LONGJIMMIE 1 <*> RN Sign Out Signature REID [...] Class I - Clean Last Modified By: ERID RENNER RN 04/09/19 13:44:21 [facility] IntraOp Surgical Procedures Audit 04/09/19 13:51:40 Medical Biller/Coder: KHOA Modifier: LONGJIMMIE <+> 1 Stop [facility] IntraOp Temp Regulation [...] Modified By: REID RENNER RN 04/09/19 13:45:12 [facility] IntraOp Tourniquet Entry 1 Type Pneumatic Serial/Unit [...] Signed By: REID RENNER RN 04/09/19 13:56 documented in this encounter Plan of Treatment Not on file documented as of this encounter Visit Diagnoses Not on filedocumented in this encounter Care Teams Flatwork Tier Relationship Specialty Start Date End Date Alan Beyer MD [address] [place] [address] PCP - General Family Medicine 06/08/23 documented as of this encounter
--- OUTSIDE RECORDS SUMMARY | 2024-11-27 14:57 | XMS_ITS | Encounter Summary ---
Author Organization [employer] ([place], [place], [place], [place]) Address [address] [place] [address] Care Team Providers Care Office Associate Name Role Phone Alan Beyer MD Primary Care Provider [phone] Encounter Details Date Type Department Care Team (Late st Contact Info) Description 06/06/2018 Transcribed Document [facility] [place] Medicine [facility] [place] [address] ProviderJessenia MD [address] [place], [place] [address] Social History Tobacco Use Types Packs/Day Years Used Date Smoking Tobacco: Never Assessed Comments Unknown Sex and Gender Information Value Date Recorded Sex Assigned at Not on file Legal Sex Female 4:28 PM CDT Gender Identity Not on file Sexual Orientation Not on file documented as of this encounter Miscellaneous Notes * Cerner Conversion Note - Jessenia Alvarez MD - 06/06/2018 10:28 AM TOUR AGENT DATE OF ADMISSION: 06/05/2018 DATE OF DISCHARGE: [...] her home in stable condition with, 1. Nunn. 2. Motrin. 3. Phenergan. 4. MiraLAX. FOLLOWUP: She will follow up my office in two weeks. DISCHARGE PATHOLOGY: Pending. DISCHARGE INSTRUCTIONS: If she has any problems, she is to call. We are available for care 24 hours a day. Benito Lozano D.O. Dict: 06/06/2018 10:28:14 Trans: 06/07/2018 06:38:08 CC1: Benito Lozano D.O. Electronically signed by [facility] Conversion Economic Historian Cerner at 08/31/2022 5:03 PM CDT documented in this encounter Plan of Treatment Not on file documented as of this encounter Visit Diagnoses Not on filedocumented in this encounter Care Teams Office Associate Relationship Specialty Start Date End Date Alan Beyer MD [address] [place] [address] PCP - General Family Medicine 06/08/23 documented as of this encounter
--- OUTSIDE RECORDS SUMMARY | 2024-11-27 14:58 | XMS_ITS | Encounter Summary ---
Author Organization [employer] ([place], [place], [place], [place]) Address [address] [place] [address] Care Team Providers Care Hematology Nurse Educator Name Role Phone Alan Beyer MD Primary Care Provider [phone] Encounter Details Date Type Department Care Team (Late st Contact Info) Description 04/09/2019 Transcribed Document [facility] [place] Family Medicine [address] [place] [address] ProviderJessenia MD [address] [place] [address] Social History Tobacco Use Types Packs/Day Years Used Date Smoking Tobacco: Never Assessed Comments Unknown Sex and Gender Information Value Date Recorded Sex Assigned at Not on file Legal Sex Female 4:28 PM CDT Gender Identity Not on file Sexual Orientation Not on file documented as of this encounter Miscellaneous Notes * Cerner Conversion Note - Jessenia ProviderMD - 04/09/2019 10:29 AM TOW TRUCK OPERATOR Pre Procedure Adult Entered On: 04/09/2019 10:34 EST Performed On: 04/09/2019 10:29 EST by Talia Eason RN Height and Weight, Clinical Dosing Height Source : Stated Height Entry Format : [place] Height, Feet : 5 ft(Converted to: 152 cm, 60 Inch) Height, Inches : 5 Inch(Converted to: 0 ft 5 Inch, 12.70 cm) Clinical Height : 165.1 cm Weight Source : Standing scale Weight Entry Format : [place] Clinical Dosing Weight : 76.36 kg Weight, Pounds : 168 lb Body Surface Area (BSA) : 1.84 m2 Body Mass Index : 28 kg/m2 (HI) [place] Body Weight : 57 kg Talia Eason [...] Talia Eason RN - 04/09/2019 10:29 EST [place] Suicide Severity Rating Scale (C-SSRS) CSSRS Past [...] Obtained From : Patient Primary Language : Estonian Preferred Communication Mode : Verbal Communication Barrier [...] Scale Risk Level : 25-45 Medium Risk [place] Fall Interventions : Adequate lighting, Bed in [...] rendition version of the form. Lewis Coma [place] Best Motor Response : Obey commands [place] Best Verbal Response : Oriented Lewis Eye Opening Response : Spontaneous Lewis Coma Score : 15 Talia Eason RN - 04/09/2019 10:29 EST Electronically signed by [facility], [facility] Conversion Concrete Pipe Machine Operator Cerner at 08/31/2022 5:26 PM CDT documented in this encounter Plan of Treatment Not on file documented as of this encounter Visit Diagnoses Not on filedocumented in this encounter Care Teams Hematology Nurse Educator Relationship Specialty Start Date End Date Alan Beyer MD [address] [place] [address] PCP - General Family Medicine 06/08/23 documented as of this encounter
--- OUTSIDE RECORDS SUMMARY | 2024-11-27 14:58 | XMS_ITS | Encounter Summary ---
Author Organization [employer] ([place], [place], [place], [place]) Address [address] [place] [address] Care Team Providers Care Land Inspector Name Role Phone Alan Beyer MD Primary Care Provider [phone] Encounter Details Date Type Department Care Team (Late st Contact Info) Description 08/11/2019 Transcribed Document [facility] [place] [facility] [place] [address] ProviderJessenia MD [address] [place], [place] [id number] Social History Tobacco Use Types Packs/Day Years [...] & time 08/11/2019 07:36:00, Voice recognition / extracorporeal circulation specialist technology used for some documentation in this [...] 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 Tympanostomy ([id number]). Adenoids ([id number]). shoulder surgery. Gallbladder absent (738828261). Tubal ligation (882989574). Hysterectomy (593176557).. Family history: Heart attack Father Sister Coronary [...] EDT Height Source Stated Height Entry Format [place] Height/Length, CZECH (ft) 5 ft Height/Length CZECH 5 Inch CLINICALHEIGHT 165.1 cm [place] Body Weight 56.59 kg Weight Source, ED Standing scale Weight Entry Format [place] Weight Thai lb 171.3 lb CLINICALWEIGHT 77.86 kg Body [...] Triage: ED C-SSRS: ED Clinical Reconciliation: ED structural mill supervisor: HCG Urine Qualitative: Mylanta: 30 mL, Oral, 1-Time [place] 5 mg-325 mg oral tablet: 1 Tab, Oral, 1-Time ProBNP: Troponin I Ultra: Urinalysis w Microscopic if Indicated: Zofran ODT: 4 mg, Oral, 1-Time Prescriptions Prescribed [place] 7.5 mg-325 mg oral tablet: 1 Tab, [...] Color Yellow Urine Appearance Clear Urine Specific [place] 1.006 Urine pH Dipstick 6.0 Urine Leukocyte [...] 8:48 EDT, Discharge to: Home. Prescriptions: Prescription Associate Dean Of Women Pharmacy: Orford 7.5 mg-325 mg oral tablet (Prescribe): 1 Tab, Oral, Q6H, for 3 Day(s), PRN: for pain, 12 Tab, 0 Refill(s) cyclobenzaprine 10 mg oral tablet (Prescribe): 1 Tab, Oral, TID, for 5 Day(s), PRN: as needed for spasm, 15 Tab, 0 Refill(s). Patient was given the following educational materials: Nonspecific Chest Pain, Adult, Hyha-lg-Mnlg, Chest Wall Pain, Sqjc-oc-Jcyz, Hypertension, Adult, Hhfe-xv-Ecuu, Preventing Hypertension. Limitations: Limited activity. Follow up [...] on filedocumented in this encounter Care Teams Land Inspector Relationship Specialty Start Date End Date Alan Beyer MD [address] [place] [address] PCP - General Family Medicine 06/08/23 documented as of this encounter
--- OUTSIDE RECORDS SUMMARY | 2024-11-27 14:58 | XMS_ITS | Encounter Summary ---
Author Organization Healthcare Address [address] [place] [address] Care Team Providers Care Ventilation Equipment Tender Name Role Phone Sage Zeng MD Primary Care Provider [phone] Encounter Details Date Type Department Care Team (Late Contact Info) Description 05/23/2022 Community [facility] Community Practice [address] [place] [address] Angelia Schaefer APRN [address] [place] [id number] Panic attacks (Primary Dx) Social History [...] Visit [facility] [address] [place] [address] Xavier Escobedo DDS [address] [address] documented as of this encounter Visit Diagnoses Diagnosis Panic attacks- Primary Panic disorder without agoraphobia documented in this encounter Care Teams Ventilation Equipment Tender Relationship Specialty Start Date End Date Sage Zeng MD [address] [place] [address] PCP - General 09/24/20 documented as of this encounter
--- OUTSIDE RECORDS SUMMARY | 2024-11-27 14:58 | XMS_ITS | Encounter Summary ---
Author Organization [employer] ([place], [place], [place], [place]) Address [address] [place] [address] Care Team Providers Care Public Welfare Director Name Role Phone Alan Beyer MD Primary Care Provider [phone] Encounter Details Date Type Department Care Team (Late st Contact Info) Description 02/02/2019 Transcribed Document [facility] [place] [address] [place] [address] ProviderJessenia MD [address] [place], [place] [address] Social History Tobacco Use Types Packs/Day Years [...] ProviderMD - 02/02/2019 11:17 AM CDT ED Triage Entered On: 02/02/2019 11:26 EDT Performed On: 02/02/2019 11:23 EDT by PASCUAL HANKINS ED Triage Across the Room Triage Date/Time : 02/02/2019 11:23 EDT Chief Complaint : C/o RLQ pain and nausea since this am. LBM last night loose PASCUAL HANKINS - 02/02/2019 11:23 EDT DCP GENERIC CODE Tracking Acuity : 3 - Urgent Tracking Group : [facility] ED [facility] PASCUAL HANKINS - 02/02/2019 11:23 EDT Mode [...] Region : No Tuberculosis Symptoms : None Otto PASCUAL 02/02/2019 11:23 EDT Vital Signs ED Temperature [...] 02/02/2019 11:26:01 EDT) Problems(Active) Anxiety (SNOMED CT :03500349 ) Name of Problem: Anxiety ; Recorder: ERICKA ISSA RN; Confirmation: Confirmed ; Classification: Medical ; Code: 21003936 ; Contributor System: [employer] ; Last Updated: 07/26/2015 22:28 EDT ; Life Cycle Date: 07/26/2015 ; Life Cycle Status: Active ; Vocabulary: SNOMED CT Endometriosis, vagina (SNOMED CT :22550012 ) Name of Problem: Endometriosis, vagina ; Recorder: Breanna Ivey Rn; Confirmation: Confirmed ; Classification: Medical ; Code: 48632011 ; Contributor System: [employer] ; Last Updated: 05/24/2018 10:54 EST ; Life Cycle Date: 05/24/2018 ; Life Cycle Status: Active ; Vocabulary: SNOMED CT Kidney stones (SNOMED CT :136420394 ) Name of Problem: Kidney stones ; Recorder: KAYY ANDREW; Confirmation: Confirmed ; Classification: Medical ; Code: 964928294 ; Contributor System: [employer] ; Last Updated: 06/06/2016 9:30 EST ; Life Cycle Date: 06/06/2016 ; Life Cycle Status: Active ; Vocabulary: SNOMED CT Migraine (SNOMED CT :90321721 ) Name of Problem: Migraine ; Recorder: ERICKA ISSA RN; Confirmation: Confirmed ; Classification: Medical ; Code: 97441760 ; Contributor System: [employer] ; Last Updated: 07/26/2015 22:28 EDT ; Life Cycle Date: 07/26/2015 ; Life Cycle Status: Active ; Vocabulary: SNOMED CT Shoulder pain, left (SNOMED CT :90750786 ) Name of Problem: Shoulder pain, left ; Recorder: Breanna Ivey Rn; Confirmation: Confirmed ; Classification: Medical ; Code: 07071160 ; Contributor System: [employer]Chart ; Last Updated: 05/24/2018 10:53 EST ; Life Cycle Date: 05/24/2018 ; Life Cycle Status: Active ; Vocabulary: SNOMED CT Diagnoses(Active) Abdominal pain Date: 02/02/2019 ; Diagnosis Type: Reason For Visit ; Confirmation: Complaint of ; Clinical Dx: Abdominal pain ; Classification: Medical ; Clinical Service: Emergency medicine ; Code: PNED ; Probability: 0 ; Diagnosis Code: [id number] ED Height and Weight Height Source : Stated Height Entry Format : [place] Height, Feet : 5 ft(Converted to: 152 cm, 60 Inch) Height, Inches : 5 Inch(Converted to: 0 ft 5 Inch, 12.70 cm) Clinical Height : 165.1 cm Weight Source, ED : Critical estimated dosing weight Weight Entry Format : [place] Weight, Pounds : 160 lb Clinical Dosing Weight : 72.73 kg Body Surface Area (BSA) : 1.8 m2 Body Mass Index : 26.7 kg/m2 (HI) [place] Body Weight (IBW) : 56.59 kg PASCUAL HANKINS 02/02/2019 11:23 EDT documented in this encounter Plan of Treatment Not on file documented as of this encounter Visit Diagnoses Not on filedocumented in this encounter Care Teams Public Welfare Director Relationship Specialty Start Date End Date Alan Beyer MD [address] [place] [address] PCP - General Family Medicine 06/08/23 documented as of this encounter
--- OUTSIDE RECORDS SUMMARY | 2024-11-27 14:58 | XMS_ITS | Encounter Summary ---
Author Organization [employer] ([place], [place], [place], [place]) Address [address] [place] [address] Care Team Providers Care Broach Grinder Name Role Phone Alan Beyer MD Primary Care Provider [phone] Encounter Details Date Type Department Care Team (Late st Contact Info) Description 06/06/2018 Transcribed Document [facility] [place] Family Medicine [address] [place] [address] ProviderJessenia MD [address] [place], [place] [address] Social History Tobacco Use Types Packs/Day Years Used Date Smoking Tobacco: Never Assessed Comments Unknown Sex and Gender Information Value Date Recorded Sex Assigned at Not on file Legal Sex Female 4:28 PM CDT Gender Identity Not on file Sexual Orientation Not on file documented as of this encounter Miscellaneous Notes * Cerner Conversion Note - Jessenia ProviderMD - 06/06/2018 10:34 AM SEWING MACHINE REPAIRER Nursing Discharge Summary Entered On: 06/06/2018 10:35 [...] - 06/06/2018 10:34 EST Electronically signed by Jannette, [facility] Conversion Cutter Finisher Cerner at 08/31/2022 5:10 PM CDT documented in this encounter Plan of Treatment Not on file documented as of this encounter Visit Diagnoses Not on filedocumented in this encounter Care Teams Broach Grinder Relationship Specialty Start Date End Date Alan Beyer MD [address] [place] [address] PCP - General Family Medicine 06/08/23 documented as of this encounter
--- OUTSIDE RECORDS SUMMARY | 2024-11-27 14:58 | XMS_ITS | Encounter Summary ---
Author Organization [employer] ([place], [place], [place], [place]) Address [address] [place] [address] Care Team Providers Care Appeals Examiner Name Role Phone Alan Beyer MD Primary Care Provider [phone] Encounter Details Date Type Department Care Team (Late st Contact Info) Description 04/09/2019 Transcribed Document [facility] [place] Family Medicine [address] [place] [address] ProviderJessenia MD [address] [place], [place] [address] Social History Tobacco Use Types Packs/Day Years Used Date Smoking Tobacco: Never Assessed Comments Unknown Sex and Gender Information Value Date Recorded Sex Assigned at Not on file Legal Sex Female 4:28 PM CDT Gender Identity Not on file Sexual Orientation Not on file documented as of this encounter Miscellaneous Notes * Cerner Conversion Note - Jessenia ProviderMD - 04/09/2019 1:35 PM CHIPPER OPERATOR [facility] [place] PACU Summary Primary Physician: JESUS EDWARDS JR, JR, MD-ORT Finalized Date/Time: 04/09/19 14:44:08 Pt. Name: CHARLINE BOND /Sex: 1980 Female Med Rec #: [id number] Physician: JESUS EDWARDS JR, JR, MD-ORT Financial #: [id number] Pt. Type: O Room/Bed: Admit/Disch: 04/09/19 09:13:00 - Institution: [facility] Main OR PACU Case Times Entry 1 In PACU I 04/09/19 13:52:00 Ready for PACU 04/09/19 14:30:00 Discharge Discharge from PACU 04/09/19 14:30:00 I Last Modified By: Charline Mednia RN 04/09/19 14:43:49 Finalized By: Charline Medina RN Document Signatures Signed By: Charline Medina RN 04/09/19 14:44 Electronically signed by Jannette [facility] Conversion Twitchell Operator Cerner at 08/31/2022 5:13 PM CDT documented in this encounter Plan of Treatment Not on file documented as of this encounter Visit Diagnoses Not on filedocumented in this encounter Care Teams Appeals Examiner Relationship Specialty Start Date End Date Alan Beyer MD [address] [place] [address] PCP - General Family Medicine 06/08/23 documented as of this encounter
--- OUTSIDE RECORDS SUMMARY | 2024-11-27 14:58 | XMS_ITS | Encounter Summary ---
Author Organization [employer] ([place], [place], [place], [place]) Address [address] [place] [address] Care Team Providers Care Stage Electrician Name Role Phone Alan Beyer MD Primary Care Provider [phone] Encounter Details Date Type Department Care Team (Late st Contact Info) Description 08/11/2019 Transcribed Document [facility] [place] Family Medicine [address] [place] [address] ProviderJessenia MD [address] [place], [place] [address] Social History Tobacco Use Types Packs/Day Years Used Date Smoking Tobacco: Never Assessed Comments Unknown Sex and Gender Information Value Date Recorded Sex Assigned at Not on file Legal Sex Female 4:28 PM CDT Gender Identity Not on file Sexual Orientation Not on file documented as of this encounter Miscellaneous Notes * Cerner Conversion Note - Jessenia ProviderMD - 08/11/2019 7:06 AM CDT ED Assessment Entered On: 08/11/2019 7:40 EDT Performed On: 08/11/2019 7:39 EDT by Karie Goodwin RN ED Quick Look Assessment Level of Consciousness : Alert, Awake Affect/Behavior : Appropriate, Calm, Cooperative Orientation : Oriented x 4 Skin Temperature : Warm Skin Description : Dry, [place] Karie Goodwin RN - 08/11/2019 7:39 EDT ED General-Functional Assess Information Obtained From : Patient Preferred Communication Mode : Verbal Communication Barrier : None Primary Language : Trinidadian Any Spiritual/Cultural Needs or Requests : No [...] Rhythm : Regular Nail Bed Color : [place] Chest Pain : Yes Detailed Cardiovascular Assessment [...] that radiates into domenico shoulder blades. Karie Goodwin RN - 08/11/2019 8:20 EDT Electronically signed by Jannette [facility] Conversion Heddle Machine Operator Cerner at 08/31/2022 5:26 PM CDT documented in this encounter Plan of Treatment Not on file documented as of this encounter Visit Diagnoses Not on filedocumented in this encounter Care Teams Stage Electrician Relationship Specialty Start Date End Date Alan Beyer MD [address] [place] [address] PCP - General Family Medicine 06/08/23 documented as of this encounter
--- OUTSIDE RECORDS SUMMARY | 2024-11-27 14:58 | XMS_ITS | Encounter Summary ---
Author Organization [employer] ([place], [place], [place], [place]) Address [address] [place] [address] Care Team Providers Care Sat Instructor Name Role Phone Alan Beyer MD Primary Care Provider [phone] Encounter Details Date Type Department Care Team (Late st Contact Info) Description 12/24/2020 Transcribed Document [facility] Radiology [address] [place] [address] Yomi Rodríguez MD [address] [place] [address] Dept. of Emergency Medicine [place], [place] [id number] Social History Tobacco Use Types Packs/Day Years [...] End Date Alan Beyer MD [address] [place] [address] PCP - General Family Medicine 06/08/23 documented as of this encounter
--- OUTSIDE RECORDS SUMMARY | 2024-11-27 14:58 | XMS_ITS | Encounter Summary ---
Author Organization [employer] ([place], [place], [place], [place]) Address [address] [place] [address] Care Team Providers Care Pediatrician Name Role Phone Alan Beyer MD Primary Care Provider [phone] Encounter Details Date Type Department Care Team (Late st Contact Info) Description 08/11/2019 Transcribed Document [facility] [place] [facility] [place] [address] ProviderJessenia MD [address], [place] [address] Social History Tobacco Use Types Packs/Day Years [...] ProviderMD - 08/11/2019 7:06 AM CDT ED Triage Entered On: 08/11/2019 7:19 EDT Performed On: 08/11/2019 7:16 EDT by Jyoti Cordon RN ED Triage Across the Room Chief Complaint : Midsternal chest pain, nausea, bilat shoulder pain R>L since 0200. No relief with gas-x, excedrin, or 400mg ibuprofen. Triage Date/Time : 08/11/2019 7:16 EDT Jyoti Cordon RN - 08/11/2019 7:16 EDT DCP GENERIC CODE Tracking Acuity : 2 - Emergent Tracking Group : [facility] ED [facility] Jyoti Cordon RN - 08/11/2019 [...] ; Type: Allergy ; Updated By: Breanna Ivye Rn; Reviewed Date: 08/11/2019 7:18 EDT meperidine [...] 08/11/2019 07:19:26 EDT) Problems(Active) Anxiety (SNOMED CT :10427270 ) Name of Problem: Anxiety ; Recorder: ERICKA ISSA RN; Confirmation: Confirmed ; Classification: Medical ; Code: [id number] ; Contributor System: Adormo ; Last Updated: 07/26/2015 22:28 EDT ; Life Cycle Date: 07/26/2015 ; Life Cycle Status: Active ; Vocabulary: SNOMED CT Endometriosis, vagina (SNOMED CT :06012309 ) Name of Problem: Endometriosis, vagina ; Recorder: Breanna Ivey RN; Confirmation: Confirmed ; Classification: Medical ; Code: [id number] ; Contributor System: Adormo ; Last Updated: 05/24/2018 10:54 EST ; Life Cycle Date: 05/24/2018 ; Life Cycle Status: Active ; Vocabulary: SNOMED CT Kidney stones (SNOMED CT :789181706 ) Name of Problem: Kidney stones ; Recorder: KAYY ANDREW; Confirmation: Confirmed ; Classification: Medical ; Code: [id number] ; Contributor System: PowerChart ; Last Updated: 06/06/2016 9:30 EST ; Life Cycle Date: 06/06/2016 ; Life Cycle Status: Active ; Vocabulary: SNOMED CT Migraine (SNOMED CT :49645727 ) Name of Problem: Migraine ; Recorder: ERICKA ISSA RN; Confirmation: Confirmed ; Classification: Medical ; Code: [id number] ; Contributor System: HelvetaChart ; Last Updated: 07/26/2015 22:28 EDT ; Life Cycle Date: 07/26/2015 ; Life Cycle Status: Active ; Vocabulary: SNOMED CT Shoulder pain, left (SNOMED CT :35900365 ) Name of Problem: Shoulder pain, left ; Recorder: Breanna Ivey RN; Confirmation: Confirmed ; Classification: Medical ; Code: [id number] ; Contributor System: HelvetaChart ; Last Updated: 05/24/2018 10:53 EST ; Life Cycle Date: 05/24/2018 ; Life Cycle Status: Active ; Vocabulary: SNOMED CT Diagnoses(Active) Chest pain Date: 08/11/2019 ; Diagnosis Type: Reason For Visit ; Confirmation: Complaint of ; Clinical Dx: Chest pain ; Classification: Medical ; Clinical Service: Emergency medicine ; Code: PNED ; Probability: 0 ; Diagnosis Code: [id number] ED Height and Weight Height Source : Stated Height Entry Format : [place] Height, Feet : 5 ft(Converted to: 152 cm, 60 Inch) Height, Inches : 5 Inch(Converted to: 0 ft 5 Inch, 12.70 cm) Clinical Height : 165.1 cm Weight Source, ED : Standing scale Weight Entry Format : [place] Weight, Pounds : 171.3 lb Clinical Dosing Weight : 77.86 kg Body Surface Area (BSA) : 1.85 m2 Body Mass Index : 28.6 kg/m2 (HI) [place] Body Weight (IBW) : 56.59 kg Jyoti [...] - 08/11/2019 7:16 EDT Electronically signed by Jannette [facility] Conversion Outbound Sales Advisor Cerner at 08/31/2022 5:14 PM CDT documented in this encounter Plan of Treatment Not on file documented as of this encounter Visit Diagnoses Not on filedocumented in this encounter Care Teams Pediatrician Relationship Specialty Start Date End Date Alan Beyer MD [address] [place] [address] PCP - General Family Medicine 06/08/23 documented as of this encounter
--- OUTSIDE RECORDS SUMMARY | 2024-11-27 14:58 | XMS_ITS | Encounter Summary ---
Author Organization [employer] ([place], [place], [place], [place]) Address [address] [place] [address] Care Team Providers Care Integrated Program Teacher Name Role Phone Alan Beyer MD Primary Care Provider [phone] Encounter Details Date Type Department Care Team (Late st Contact Info) Description 06/06/2018 Transcribed Document [facility] [place] [facility] [place] [address] ProviderJessenia MD [address] [place] [address] Social History Tobacco Use Types [...] Jessenia Alvarez MD - 06/06/2018 10:39 AM LAB ASST Patient Education Materials Follows: Laparoscopically Assisted Vaginal [...] these instructions at home: ??? Only take ahnb-ogu-apjtlba or prescription medicines for pain, discomfort, or [...] 04/18/2012 Document Revised: 10/05/2016 Document Reviewed: 11/13/2013 ElseCaterna Interactive Patient Education ? 2017 The Spirit Project. documented in this encounter Plan of Treatment Not on file documented as of this encounter Visit Diagnoses Not on filedocumented in this encounter Care Teams Integrated Program Teacher Relationship Specialty Start Date End Date Alan Beyer MD [address] [place] [address] PCP - General Family Medicine 06/08/23 documented as of this encounter
--- OUTSIDE RECORDS SUMMARY | 2024-11-27 14:58 | XMS_ITS | Encounter Summary ---
Author Organization [employer] ([place], [place], [place], [place]) Address [address] [place] [address] Care Team Providers Care Sack Sewer Name Role Phone Alan Beyer MD Primary Care Provider [phone] Encounter Details Date Type Department Care Team (Late st Contact Info) Description 06/06/2018 Transcribed Document [facility] [place] [facility] [address] ProviderJessenia MD [address] [place] [address] Social History Tobacco Use Types Packs/Day Years Used Date Smoking Tobacco: Never Assessed Comments Unknown Sex and Gender Information Value Date Recorded Sex Assigned at Not on file Legal Sex Female 4:28 PM CDT Gender Identity Not on file Sexual Orientation Not on file documented as of this encounter Miscellaneous Notes * Cerner Conversion Note - Jessenia ProviderMD - 06/06/2018 10:39 AM [place] [address], [place] [address] Patient Copy Patient Information: Name: CHARLINE BOND Current Date: 06/06/2018 10:38:59 : 1980 Patient Address: [address] [place] [id number] Patient Attending Physician: DORIS BRANCH DO Primary Care Provider: JORGE LUIS BUENO NP-[facility] Primary Care Provider Discharge Diagnosis: Weight on Admission: 165 lb, 0 oz Comment: Follow-up Instructions: With: Address: When: DORIS BRANCH [address] [facility] [employer] [address] [place], [place] [id number] Business (1) 2:25 PM Discharge Instructions: Diet after [...] these instructions at home: ??? Only take ijuo-aqh-jcjuamx or prescription medicines for pain, discomfort, or [...] 04/18/2012 Document Revised: 10/05/2016 Document Reviewed: 11/13/2013 NJVC Interactive Patient Education ? 2017 [employer]. Medication Leaflets: acetaminophen and hydrocodone (a SEET a MIN oh fen and maira keshawn LAWSONE done) Hycet, Lorcet, [place], Verdrocet, Vicodin, Xodol, Zamicet What is the [...] may report side effects to FDA at 8-527-GNN-7861. What other drugs will affect acetaminophen and [...] affect acetaminophen and hydrocodone, including prescription and iknr-nob-svdrbbf medicines, vitamins, and herbal products. Not all [...] to ensure that the information provided by Consult A Doctor. ('Multum') is accurate, up-to-date, and complete, but no guarantee is made to that effect. Drug information contained herein may be time sensitive. The .tv Corporation information has been compiled for use by healthcare practitioners and consumers in the [place] and therefore The .tv Corporation does not warrant that uses outside of the [place] are appropriate, unless specifically indicated otherwise. TeeBeeDees drug information does not endorse drugs, diagnose patients or recommend therapy. TeeBeeDees drug information is an informational resource designed [...] effective or appropriate for any given patient. The [employer] does not assume any responsibility for any aspect of healthcare administered with the aid of information The .[employer] provides. The information contained herein is not intended to cover all possible uses, directions, precautions, warnings, drug interactions, allergic reactions, or adverse effects. If you have questions about the drugs you are taking, check with your doctor, nurse or pharmacist. Copyright 5630-0121 Consult A Doctor. Version: 15.02. Revision Date: 03/18/2018. ibuprofen (EYE bue PROE fen) Advil, Genpril, IBU, Midol IB, Motrin IB, Proprinal, Smart Sense Children's Ibuprofen What is the most important information I should know about ibuprofen? Ibuprofen can increase your risk of fatal heart attack or stroke, especially if you use it penitentiary or take high doses, or if you [...] or stroke, especially if you use it superintendent marine oil terminal or take high doses, or if you [...] may report side effects to FDA at 3-178-TRN-1851. What other drugs will affect ibuprofen? Ask [...] may interact with ibuprofen, including prescription and eyhf-odq-qalmaus medicines, vitamins, and herbal products. Not all [...] to ensure that the information provided by Consult A Doctor. ('Beestartum') is accurate, up-to-date, and complete, but no guarantee is made to that effect. Drug information contained herein may be time sensitive. The .[employer] information has been compiled for use by healthcare practitioners and consumers in the [place] and therefore The .[employer] does not warrant that uses outside of the [place] are appropriate, unless specifically indicated otherwise. TeeBeeDees drug information does not endorse drugs, diagnose patients or recommend therapy. TeeBeeDees drug information is an informational resource designed [...] effective or appropriate for any given patient. The .[employer] does not assume any responsibility for any aspect of healthcare administered with the aid of information The .[employer] Corporation provides. The information contained herein is not intended to cover all possible uses, directions, precautions, warnings, drug interactions, allergic reactions, or adverse effects. If you have questions about the drugs you are taking, check with your doctor, nurse or pharmacist. Copyright 2734-4061 Consult A Doctor. Version: 18.01. Revision Date: 08/10/2016. promethazine (oral) (pro METH a zeen) Phenergan What is the most important information I should know about promethazine? Promethazine should not be given to a child younger than 2 years old. Promethazine can cause severe breathing problems or in very young children. What is promethazine? Promethazine is in a group of drugs called phenothiazines (ZIUX-ib-WOGX-a-zeens). It works by changing the actions of [...] may report side effects to FDA at 6-607-KHK-5729. What other drugs will affect promethazine? Using this medicine with other drugs that make you sleepy or slow your breathing can cause dangerous or life-threatening side effects. Ask your doctor before taking promethazine with a sleeping pill, narcotic pain medicine, muscle relaxer, or medicine for anxiety, depression, or seizures. Other drugs may interact with promethazine, including prescription and rlzi-gne-xctdeaw medicines, vitamins, and herbal products. Tell each [...] to ensure that the information provided by Consult A Doctor. ('Multum') is accurate, up-to-date, and complete, but no guarantee is made to that effect. Drug information contained herein may be time sensitive. The .[employer] information has been compiled for use by healthcare practitioners and consumers in the [place] and therefore The .[employer] Corporation does not warrant that uses outside of the [place] are appropriate, unless specifically indicated otherwise. TeeBeeDees drug information does not endorse drugs, diagnose patients or recommend therapy. TeeBeeDees drug information is an informational resource designed [...] effective or appropriate for any given patient. The .[employer] does not assume any responsibility for any aspect of healthcare administered with the aid of information The .[employer] Corporation provides. The information contained herein is not intended to cover all possible uses, directions, precautions, warnings, drug interactions, allergic reactions, or adverse effects. If you have questions about the drugs you are taking, check with your doctor, nurse or pharmacist. Copyright 9749-7749 Consult A Doctor. Version: 6.02. Revision Date: 02/25/2015. polyethylene glycol 3350 (ladan ee ETH il een GLYE kol) ClearLax, GaviLAX, Gialax, GlycoLax, MiraLax, FYI9001, SunMark ClearLax What is the most important [...] may report side effects to FDA at 0-059-ZHB-0775. What other drugs will affect polyethylene glycol 3350? Other drugs may interact with polyethylene glycol 3350, including prescription and tjzc-kxt-ecocpfe medicines, vitamins, and herbal products. Tell each [...] to ensure that the information provided by Consult A Doctor. ('Multum') is accurate, up-to-date, and complete, but no guarantee is made to that effect. Drug information contained herein may be time sensitive. The .tv Corporation information has been compiled for use by healthcare practitioners and consumers in the [place] and therefore The .tv Corporation does not warrant that uses outside of the [place] are appropriate, unless specifically indicated otherwise. blueKiwi SoftwareEnergySavvy.coms drug information does not endorse drugs, diagnose patients or recommend therapy. blueKiwi SoftwareEnergySavvy.coms drug information is an informational resource designed [...] effective or appropriate for any given patient. [facility] does not assume any responsibility for any aspect of healthcare administered with the aid of information [facility] provides. The information contained herein is not intended to cover all possible uses, directions, precautions, warnings, drug interactions, allergic reactions, or adverse effects. If you have questions about the drugs you are taking, check with your doctor, nurse or pharmacist. Copyright 4202-6813 [facility]. Version: 2.04. Revision Date: 08/16/2016. CIGARETTE SMOKING: The facts are clear, cigarette smoking will shorten your life. Smoking can cause many illnesses along the way. As a healthcare provider, we recommend that you stop smoking. Assistance with quitting is available by contacting 9-272-RHHI-NOW. This is a free resource providing counseling, [...] Be sure to sign up for the Votigo patient portal, which gives you 04/12 access to your medical information ??? including these discharge instructions ??? using your computer, smartphone, or tablet. Just go to [employer] to get started. Questions? Call . [facility] would like to thank you for allowing us to assist you with your healthcare needs. RIANA Main SARA RANAE, (or patient intake representative) have received the above patient education materials/instructions and have verbalized understanding: Patient Signature _ Date/Time Patient Therapeutic Assistant Signature (if needed) Date/Time Clinician/Hospital Therapeutic Assistant Signature (if needed) Date/Time Electronically signed by Jannette, [facility] Conversion Warehousing Technician Cerner at 08/31/2022 5:19 PM CDT documented in this encounter Plan of Treatment Not on file documented as of this encounter Visit Diagnoses Not on filedocumented in this encounter Care Teams Sack Sewer Relationship Specialty Start Date End Date Alan Beyer MD [address] [place] [address] PCP - General Family Medicine 06/08/23 documented as of this encounter
--- OUTSIDE RECORDS SUMMARY | 2024-11-27 14:58 | XMS_ITS | Encounter Summary ---
Author Organization [employer] ([place], [place], [place], [place]) Address [address] [place] [address] Care Team Providers Care Energy Broker Name Role Phone Alan Beyer MD Primary Care Provider [phone] Encounter Details Date Type Department Care Team (Late st Contact Info) Description 08/11/2019 Transcribed Document [facility] [place] [facility] [place] [address] ProviderJessenia MD [address] [place], [place] [address] Social History Tobacco Use Types Packs/Day Years Used Date Smoking Tobacco: Never Assessed Comments Unknown Sex and Gender Information Value Date Recorded Sex Assigned at Not on file Legal Sex Female 4:28 PM CDT Gender Identity Not on file Sexual Orientation Not on file documented as of this encounter Miscellaneous Notes * Cerner Conversion Note - Jessenia ProviderMD - 08/11/2019 9:05 AM CDT ED Discharge Entered On: 08/11/2019 9:05 EDT Performed On: 08/11/2019 9:05 EDT by JORGE LUIS VELASCO cardiothoracic icu rn Process Patient Disposition : Discharge Personal Belongings [...] LUIS VELASCO RN - 08/11/2019 9:05 EDT Electronically signed by Jannette [facility] Conversion Information Technology Administrator Cerner at 08/31/2022 5:06 PM CDT documented in this encounter Plan of Treatment Not on file documented as of this encounter Visit Diagnoses Not on filedocumented in this encounter Care Teams Energy Broker Relationship Specialty Start Date End Date Alan Beyer MD [address] [place] [address] PCP - General Family Medicine 06/08/23 documented as of this encounter
--- OUTSIDE RECORDS SUMMARY | 2024-11-27 14:58 | XMS_ITS | Encounter Summary ---
Author Organization [employer] ([place], [place], [place], [place]) Address [address] [place] [address] Care Team Providers Care Caster Helper Name Role Phone Alan Beyer MD Primary Care Provider [phone] Encounter Details Date Type Department Care Team (Late st Contact Info) Description 04/09/2019 Transcribed Document [facility] [place] Medicine [address] [place] [address] ProviderJessenia MD [address] [place] [address] Social History Tobacco Use Types [...] Jessenia Alvarez MD - 04/09/2019 3:17 PM CONTRACT SPECIALIST [place] [id number] CHARLINE BOND :1980 Visit Time:04/09/2019 What to [...] Comments Appointment has been made Where: [address] [facility] [address] [place] [address]- Medications What How Much When [...] 09/10/2007 Document Revised: 01/22/2017 Document Reviewed: 12/07/2014 AppPowerGroup Interactive Patient Education ?? 2018 AppPowerGroup Inc. Crutch Use, Adult Crutches are used [...] 10/16/2008 Document Revised: 12/12/2017 Document Reviewed: 10/20/2016 Elsevier Interactive Patient Education ?? 2019 ElseBardakovka Inc. General Anesthesia, Adult, Care After This [...] activities are safe for you. ??? Take gnph-clb-gjaxamb and prescription medicines only as told by [...] 08/06/2001 Document Revised: 12/14/2017 Document Reviewed: 12/14/2017 AppPower[employer] Interactive Patient Education ?? 2019 [employer]Power[employer] Inc. Knee Arthroscopy, Care After Refer to [...] activities are safe for you. ??? Perform ktlai-zj-svvqdr exercises only as directed by your health [...] 11/17/2005 Document Revised: 09/29/2016 Document Reviewed: 04/26/2015 AppPowerGroup Interactive Patient Education ?? 2018 PresenterNet. tramadol (TRAM a dol) ConZip, Ultram, Ultram ER What is the most [...] extended-release form of this medicine is for asyjbk-efe-teuof treatment of pain. This form of tramadol [...] against the law. Stop taking all other osofbk-xww-cbedz narcotic pain medications when you start taking [...] may report side effects to FDA at 6-700-JWL-2216. What other drugs will affect tramadol? You [...] may affect tramadol. This includes prescription and usvj-rcc-wswrqji medicines, vitamins, and herbal products. Not all [...] to ensure that the information provided by VisualCV. ('Multum') is accurate, up-to-date, and complete, but no guarantee is made to that effect. Drug information contained herein may be time sensitive. Nuhookum information has been compiled for use by healthcare practitioners and consumers in the [place] and therefore Nuhookum does not warrant that uses outside of the [place] are appropriate, unless specifically indicated otherwise. Clifford Thames's drug information does not endorse drugs, diagnose patients or recommend therapy. [facility] drug information is an informational resource designed [...] effective or appropriate for any given patient. [facility] does not assume any responsibility for any aspect of healthcare administered with the aid of information [facility] provides. The information contained herein is not intended to cover all possible uses, directions, precautions, warnings, drug interactions, allergic reactions, or adverse effects. If you have questions about the drugs you are taking, check with your doctor, nurse or pharmacist. Copyright 6725-4636 [facility]Imm[facility]an[facility]bubble. Version: .. Revision Date: 02/24/2019. Emergency Awareness and Preventative [...] Assistance with quitting is available by contacting 6-240-GSEO-NOW. This is a free resource providing counseling, [...] was given the opportunity to ask questions. Patient/Clerk Guide Name: Patient/Clerk Guide Signature: Relationship to Patient: Clinician/Hospital Clerk Guide Signature: Date: documented in this encounter Plan of Treatment Not on file documented as of this encounter Visit Diagnoses Not on filedocumented in this encounter Care Teams Caster Helper Relationship Specialty Start Date End Date Alan Beyer MD [address], [place] [address] PCP - General Family Medicine 06/08/23 documented as of this encounter
--- OUTSIDE RECORDS SUMMARY | 2024-11-27 14:58 | XMS_ITS | Encounter Summary ---
Author Organization [employer] ([place], [place], [place], [place]) Address [address] [place] [address] Care Team Providers Care Decision Unit Rn Name Role Phone Alan Beyer MD Primary Care Provider [phone] Encounter Details Date Type Department Care Team (Late st Contact Info) Description 08/11/2019 Transcribed Document [facility] [place] [facility] [place] [address] ProviderJessenia MD [address] [place] [address] Social History Tobacco Use Types [...] Alvarez MD - 08/11/2019 8:50 AM CDT [place] [id number] CHARLINE BOND :1980 Visit Time:08/11/2019 Your Visit [...] breathing and or persistent vomiting. Where: [address] [facility] [address] [place] [address]- Business (1) Allergies Bactrim acetaminophen-oxyCODONE clindamycin Toradol baclofen doxycycline escitalopram fentaNYL lidocaine topical 2% gel meperidine morphine penicillin (Hives) tetanus immune globulin Immunizations This Visit No Immunizations Found Medications What How Much When Instructions Next Dose acetaminophen-hydrocodone (Aurora 7.5 mg-325 mg oral tablet) 1 Tablet(s) Oral Every 6 Hours as needed for for pain Duration: 3 Day(s) Pickup at [place] [address] cyclobenzaprine (cyclobenzaprine 10 mg oral tablet) 1 Tablet(s) Oral Three Times A Day as needed for as needed for spasm Duration: 5 Day(s) Pickup at [place] [address] conjugated estrogens (Premarin) Vaginal Weekly cream fexofenadine (Karine) Oral Every Day ibuprofen 400 Milligram(s) Oral Every 8 Hours as needed for as needed for pain methocarbamol (Robaxin-750 oral tablet) 1 Tablet(s) Oral Every Day valACYclovir (Valtrex) 500 Milligram(s) Oral Every Day fever blister Pharmacy Information [facility] [address]: [address] [place], [place] [id number] [phone] The home medications listed are only as [...] Urine Bilirubin Dipstick: Negative mg/dL Urine Specific [place]: 1.006 -- Normal range between ( 1.005 [...] to take more than one medicine. Take rpuh-vfq-ecyayyv and prescription medicines only as told by your health care provider. Where to find support Your health care provider can help you prevent hypertension and help you keep your blood pressure at a healthy level. Your local hospital or your community may also provide support services and prevention programs. The [place] [employer] Association offers an online support network at: http://supportnetwork.heart.org/nbub-gxbtb-crfbgspj Where to find more information Learn more about hypertension from: ??? National Heart, Lung, and Blood [place]: www.nhlbi.nih.gov/health/health-topics/topics/hbp ??? Centers for Disease Control and Prevention: www.cdc.gov/bloodpressure ??? [place] Academy of Family Physicians: http://familydoctor.org/familydoctor/en/diseases-conditions/ptzw-nixjh-qvpgkuj e.printerview.all.html Learn more about the DASH diet from: ??? National Heart, Lung, and Blood [place]: www.nhlbi.nih.gov/health/health-topics/topics/dash Contact a health care provider if: [...] 05/14/2016 Document Revised: 01/08/2017 Document Reviewed: 01/08/2017 AllClear ID Interactive Patient Education ?? 2019 [place]. Hypertension, Adult Hypertension is another name for [...] doctor. This is important. Medicines ??? Take rqbf-lju-patcnuo and prescription medicines only as told by [...] 10/16/2008 Document Revised: 01/08/2019 Document Reviewed: 01/08/2019 AllClear ID Interactive Patient Education ?? 2019 AllClear ID Inc. Chest Wall Pain Chest wall pain [...] safe for you. General instructions ??? Take oypj-szs-ejgsndo and prescription medicines only as told by [...] 10/31/2018 Elsevier Interactive Patient Education ?? 2019 AllClear ID Inc. Nonspecific Chest Pain Chest pain can [...] these instructions at home: Medicines ??? Take xnsy-icj-wbtmive and prescription medicines only as told by [...] Eating a heart-healthy diet. A diet and event specialist (dietitian) can help you to learn [...] 10/31/2018 Elsevier Interactive Patient Education ?? 2019 AllClear ID Inc. Emergency Awareness and Preventative Care STROKE [...] Assistance with quitting is available by contacting 0-541-AUXK-NOW. This is a free resource providing counseling, support, and referral. Or you may contact your personal physician. PushCoin Suicide Prevention Lifeline: The National Suicide Prevention [...] was given the opportunity to ask questions. Patient/Legal Assistant Name: Patient/Legal Assistant Signature: Relationship to Patient: Clinician/Hospital Legal Assistant Signature: Please Provide a Telephone Number Where You Can Be Reached: Is it Permissible To Leave a Message? Date: documented in this encounter Plan of Treatment Not on file documented as of this encounter Visit Diagnoses Not on filedocumented in this encounter Care Teams Decision Unit Rn Relationship Specialty Start Date End Date Alan Beyer MD [address] [place] [address] PCP - General Family Medicine 06/08/23 documented as of this encounter
--- OUTSIDE RECORDS SUMMARY | 2024-11-27 14:58 | XMS_ITS | Encounter Summary ---
Author Organization [employer] ([place], [place], [place], [place]) Address [address] [place] [address] Care Team Providers Care Graphics Specialist Name Role Phone Alan Beyer MD Primary Care Provider Encounter Details Date Type Department Care Team (Late st Contact Info) Description 02/08/2021 Transcribed Document [facility] [place] [facility] [place] [address] ProviderJessenia MD [address] [place] [address] Social History Tobacco Use Types [...] Alvarez MD - 02/08/2021 10:57 PM CDT [place] [id number] CHARLINE BOND :1980 Visit Time:02/08/2021 Your Visit [...] Within 2 to 3 days Where: [address] [place] [id number] Business (1) Allergies Bactrim acetaminophen-oxyCODONE clindamycin Toradol [...] range between ( 1.0 and 7.0 ) Parker #: 0.33 K/uL -- Normal range between ( 0.24 and 0.82 ) Eos #: 0.20 K/uL -- Normal range between ( 0.04 and 0.54 ) Parker %: 4.8 % -- Normal range between [...] home: Managing pain and congestion ??? Take afmx-tkq-eunkwek and prescription medicines only as told by [...] water are not available, use alcohol-based hand business objects analyst. ??? Avoid contact with people who [...] provider. Document Revised: 05/08/2019 Document Reviewed: 06/10/2018 Mitra Medical Technology Patient Education ?? 2020 Mitra Medical Technology Inc. Shortness of Breath, Adult Shortness of [...] return to your usual activities. ??? Take vjli-rwm-nywedfe and prescription medicines only as told by [...] provider. Document Revised: 09/30/2018 Document Reviewed: 09/30/2018 ElseAlerts Patient Education ?? 202 [employer] Inc. Emergency Awareness and Preventative Care [...] Assistance with quitting is available by contacting 3-411-CDDCNOW. This is a free resource providing counseling, [...] was given the opportunity to ask questions. Patient/Senior Officer Name: Patient/Senior Officer Signature: Relationship to Patient: Clinician/Hospital Senior Officer Signature: Please Provide a Telephone Number Where You Can Be Reached: Is it Permissible To Leave a Message? Date: Electronically signed by Interface, [facility] Conversion Foundry Engineer Cerner at 08/31/2022 4:57 PM CDT documented in this encounter Plan of Treatment Not on file documented as of this encounter Visit Diagnoses Not on filedocumented in this encounter Care Teams Graphics Specialist Relationship Specialty Start Date End Date Alan Beyer MD [address] [place], [place] [id number] PCP - General Family Medicine 06/08/23 documented as of this encounter
--- OUTSIDE RECORDS SUMMARY | 2024-11-27 14:58 | XMS_ITS | Encounter Summary ---
Author Organization [employer] ([place], [place], [place], [place]) Address [address] [place] [address] Care Team Providers Care Airport Representative Name Role Phone Alan Beyer MD Primary Care Provider [phone] Encounter Details Date Type Department Care Team (Late st Contact Info) Description 08/11/2019 Transcribed Document [facility] [place] Family Medicine [facility] [place] [address] ProviderJessenia MD [address] [place], [place] [address] Social History Tobacco Use Types Packs/Day Years Used Date Smoking Tobacco: Never Assessed Comments Unknown Sex and Gender Information Value Date Recorded Sex Assigned at Not on file Legal Sex Female 4:28 PM CDT Gender Identity Not on file Sexual Orientation Not on file documented as of this encounter Miscellaneous Notes * Cerner Conversion Note - Jessenia ProviderMD - 08/11/2019 8:46 AM CDT Electronically signed by Jannette [facility] Conversion Manager Human Capital Cerner at 08/31/2022 5:06 PM CDT documented in this encounter Plan of Treatment Not on file documented as of this encounter Visit Diagnoses Not on filedocumented in this encounter Care Teams Airport Representative Relationship Specialty Start Date End Date Alan Beyer MD [address] [place] [address] PCP - General Family Medicine 06/08/23 documented as of this encounter
--- OUTSIDE RECORDS SUMMARY | 2024-11-27 14:58 | XMS_ITS | Encounter Summary ---
Author Organization [employer] ([place], [place], [place], [place]) Address [address] [place] [address] Care Team Providers Care Treater Name Role Phone Alan Beyer MD Primary Care Provider [phone] Encounter Details Date Type Department Care Team (Late st Contact Info) Description 06/06/2018 Transcribed Document [facility] [place] [facility] [place] [address] ProviderJessenia MD [address] [place] [address] Social History Tobacco Use Types Packs/Day Years Used Date Smoking Tobacco: Never Assessed Comments Unknown Sex and Gender Information Value Date Recorded Sex Assigned at Not on file Legal Sex Female 4:28 PM CDT Gender Identity Not on file Sexual Orientation Not on file documented as of this encounter Miscellaneous Notes * Cerner Conversion Note - Jessenia ProviderMD - 06/06/2018 10:35 AM SILK SCREEN PRINTER [place] [address], [place] [address] Patient Copy Patient Information: Name: CHARLINE BOND Current Date: 06/06/2018 10:35:55 : 1980 Patient Address: [address] [place] [id number] Patient Attending Physician: DORIS BRANCH DO Primary Care Provider: JORGE LUIS BUENO NP-[facility] Primary Care Provider Discharge Diagnosis: Weight on Admission: 165 lb, 0 oz Comment: Follow-up Instructions: With: Address: When: DORIS BRANCH [address] [facility] [address], [address] [place], [place] [id number] Business (1) Within 2 weeks Discharge Instructions: Diet [...] these instructions at home: ??? Only take uprs-ubf-ycrtsjv or prescription medicines for pain, discomfort, or [...] 04/18/2012 Document Revised: 10/05/2016 Document Reviewed: 11/13/2013 [employer] Interactive Patient Education ? 2017 Spotzer. Medication Leaflets: acetaminophen and hydrocodone (a SEET a MIN oh fen and maira MOSES done) Hycet, Lorcet, Conklin, Verdrocet, Vicodin, Xodol, Zamicet What is the [...] may report side effects to FDA at 7-501-LNO-2138. What other drugs will affect acetaminophen and [...] affect acetaminophen and hydrocodone, including prescription and sxbj-ufd-zfaffvy medicines, vitamins, and herbal products. Not all [...] to ensure that the information provided by ClickPay Services. ('Multum') is accurate, up-to-date, and complete, but no guarantee is made to that effect. Drug information contained herein may be time sensitive. CastingDB information has been compiled for use by healthcare practitioners and consumers in the [place] and therefore CastingDB does not warrant that uses outside of the [place] are appropriate, unless specifically indicated otherwise. P2P-Nexts drug information does not endorse drugs, diagnose patients or recommend therapy. P2P-Nexts drug information is an informational resource designed [...] effective or appropriate for any given patient. CastingDB does not assume any responsibility for any aspect of healthcare administered with the aid of information CastingDB provides. The information contained herein is not intended to cover all possible uses, directions, precautions, warnings, drug interactions, allergic reactions, or adverse effects. If you have questions about the drugs you are taking, check with your doctor, nurse or pharmacist. Copyright 6976-7213 [employer]. Version: 15.. Revision Date: 03/18/2018. ibuprofen (EYE bue PROE fen) Advil, Genpril, IBU, Midol IB, Motrin IB, Proprinal, Smart Sense Children's Ibuprofen What is the most important information I should know about ibuprofen? Ibuprofen can increase your risk of fatal heart attack or stroke, especially if you use it termite control technician or take high doses, or if you [...] or stroke, especially if you use it jail or take high doses, or if you [...] may report side effects to FDA at 4-202-QHZ-1088. What other drugs will affect ibuprofen? Ask [...] may interact with ibuprofen, including prescription and notf-zkx-dgzunjr medicines, vitamins, and herbal products. Not all [...] to ensure that the information provided by ClickPay Services. ('Multum') is accurate, up-to-date, and complete, but no guarantee is made to that effect. Drug information contained herein may be time sensitive. CastingDB information has been compiled for use by healthcare practitioners and consumers in the [place] and therefore CastingDB does not warrant that uses outside of the [place] are appropriate, unless specifically indicated otherwise. P2P-Nexts drug information does not endorse drugs, diagnose patients or recommend therapy. P2P-Nexts drug information is an informational resource designed [...] effective or appropriate for any given patient. CastingDB does not assume any responsibility for any aspect of healthcare administered with the aid of information CastingDB provides. The information contained herein is not intended to cover all possible uses, directions, precautions, warnings, drug interactions, allergic reactions, or adverse effects. If you have questions about the drugs you are taking, check with your doctor, nurse or pharmacist. Copyright 6091-1662 [employer] Services. Version: 18.01. Revision Date: 08/10/2016. promethazine (oral) (pro METH a zeen) Phenergan What is the most important information I should know about promethazine? Promethazine should not be given to a child younger than 2 years old. Promethazine can cause severe breathing problems or in very young children. What is promethazine? Promethazine is in a group of drugs called phenothiazines (NJVC-ur-QOYG-a-zeens). It works by changing the actions of [...] may report side effects to FDA at 6-483-EFF-6941. What other drugs will affect promethazine? Using this medicine with other drugs that make you sleepy or slow your breathing can cause dangerous or life-threatening side effects. Ask your doctor before taking promethazine with a sleeping pill, narcotic pain medicine, muscle relaxer, or medicine for anxiety, depression, or seizures. Other drugs may interact with promethazine, including prescription and urju-hpb-gcuulfn medicines, vitamins, and herbal products. Tell each [...] to ensure that the information provided by ClickPay Services. ('Immediatelytum') is accurate, up-to-date, and complete, but no guarantee is made to that effect. Drug information contained herein may be time sensitive. CastingDB information has been compiled for use by healthcare practitioners and consumers in the [place] and therefore CastingDB does not warrant that uses outside of the [place] are appropriate, unless specifically indicated otherwise. P2P-Nexts drug information does not endorse drugs, diagnose patients or recommend therapy. P2P-Nexts drug information is an informational resource designed [...] effective or appropriate for any given patient. CastingDB does not assume any responsibility for any aspect of healthcare administered with the aid of information CastingDB provides. The information contained herein is not intended to cover all possible uses, directions, precautions, warnings, drug interactions, allergic reactions, or adverse effects. If you have questions about the drugs you are taking, check with your doctor, nurse or pharmacist. Copyright 3760-7428 [employer]Pay Services. Version: 6.02. Revision Date: 02/25/2015. polyethylene glycol 3350 (laadn ee ETH il een GLYE kol) ClearLax, GaviLAX, Gialax, GlycoLax, MiraLax, HIX6054, SunMark ClearLax What is the most important [...] may report side effects to FDA at 6-154-NOG-1445. What other drugs will affect polyethylene glycol 3350? Other drugs may interact with polyethylene glycol 3350, including prescription and dlxr-hja-risaezf medicines, vitamins, and herbal products. Tell each [...] to ensure that the information provided by ClickPay Services. ('Multum') is accurate, up-to-date, and complete, but no guarantee is made to that effect. Drug information contained herein may be time sensitive. CastingDB information has been compiled for use by healthcare practitioners and consumers in the [place] and therefore CastingDB does not warrant that uses outside of the [place] are appropriate, unless specifically indicated otherwise. P2P-Nexts drug information does not endorse drugs, diagnose patients or recommend therapy. P2P-Nexts drug information is an informational resource designed [...] effective or appropriate for any given patient. CastingDB does not assume any responsibility for any aspect of healthcare administered with the aid of information CastingDB provides. The information contained herein is not intended to cover all possible uses, directions, precautions, warnings, drug interactions, allergic reactions, or adverse effects. If you have questions about the drugs you are taking, check with your doctor, nurse or pharmacist. Copyright 9365-9689 [facility]. Version: 2.04. Revision Date: 08/16/2016. CIGARETTE SMOKING: The facts are clear, cigarette smoking will shorten your life. Smoking can cause many illnesses along the way. As a healthcare provider, we recommend that you stop smoking. Assistance with quitting is available by contacting 5-928-PUOA-NOW. This is a free resource providing counseling, [...] Be sure to sign up for the NatureBox patient portal, which gives you / access to your medical information ??? including these discharge instructions ??? using your computer, smartphone, or tablet. Just go to MyGeekDay to get started. Questions? Call . [facility] would like to thank you for allowing us to assist you with your healthcare needs. RIANA Main SARA RANAE, (or sales representative health insurance) have received the above patient education materials/instructions and have verbalized understanding: Patient Signature _ Date/Time Patient It Support Consultant Signature (if needed) Date/Time Clinician/Hospital It Support Consultant Signature (if needed) Date/Time documented in this encounter Plan of Treatment Not on file documented as of this encounter Visit Diagnoses Not on filedocumented in this encounter Care Teams Treater Relationship Specialty Start Date End Date Alan Beyer MD [address] [place] [address] PCP - General Family Medicine 06/08/23 documented as of this encounter
--- OUTSIDE RECORDS SUMMARY | 2024-11-27 14:58 | XMS_ITS | Encounter Summary ---
Author Organization [employer] ([place], [place], [place], [place]) Address [address] [place] [address] Care Team Providers Care Paper Goods Machine Operator Name Role Phone Alan Beyer MD Primary Care Provider [phone] Encounter Details Date Type Department Care Team (Late st Contact Info) Description 06/06/[address] [facility] [place] Family Medicine [address] [place] [address] ProviderJessenia MD [address] [place], [place] [id number] Social History Tobacco Use Types Packs/Day Years Used Date Smoking Tobacco: Never Assessed Comments Unknown Sex and Gender Information Value Date Recorded Sex Assigned at Not on file Legal Sex Female 4:28 PM CDT Gender Identity Not on file Sexual Orientation Not on file documented as of this encounter Miscellaneous Notes * Cerner Conversion Note - Jessenia ProviderMD - 06/06/2018 10:35 AM MOISTURE CONDITIONER OPERATOR Discharge Instructions Entered On: 06/06/2018 10:35 EST [...] Shala Perez Rn - 06/06/2018 10:35 EST Electronically signed by Jannette, [facility] Conversion Hydrometer Calibrator Cerner at 08/31/2022 5:16 PM CDT documented in this encounter Plan of Treatment Not on file documented as of this encounter Visit Diagnoses Not on filedocumented in this encounter Care Teams Paper Goods Machine Operator Relationship Specialty Start Date End Date Alan Beyer MD [address] [place] [address] PCP - General Family Medicine 06/08/23 documented as of this encounter
--- OUTSIDE RECORDS SUMMARY | 2024-11-27 14:58 | XMS_ITS | Encounter Summary ---
Author Organization [employer] ([place], [place], [place], [place]) Address [address] [place] [address] Care Team Providers Care Personnel Counselor Name Role Phone Alan Beyer MD Primary Care Provider [phone] Encounter Details Date Type Department Care Team (Late st Contact Info) Description 08/11/[address] [facility] [place] Family Medicine [address] [place] [address] ProviderJessenia MD [address] [place], [place] [address] Social History Tobacco Use Types Packs/Day Years Used Date Smoking Tobacco: Never Assessed Comments Unknown Sex and Gender Information Value Date Recorded Sex Assigned at Not on file Legal Sex Female 4:28 PM CDT Gender Identity Not on file Sexual Orientation Not on file documented as of this encounter Miscellaneous Notes * Cerner Conversion Note - Jessenia ProviderMD - 08/11/2019 7:06 AM CDT [place] Suicide Severity Rating Scale (C-SSRS) Entered On: 08/11/2019 7:19 EDT Performed On: 08/11/2019 7:19 EDT by Jyoti Cordon RN [place]er Suicide Severity Rating Scale (C-SSRS) CSSRS Past Month Wish to be : No CSSRS Past Month Suicidal Thoughts : No CSSRS Lifetime Suicide Behavior : No Suicide Severity Rating Score : 0 Suicide Severity Rating : No Additional Care Required at this time Jyoti Cordon RN - 08/11/2019 7:19 EDT documented in this encounter Plan of Treatment Not on file documented as of this encounter Visit Diagnoses Not on filedocumented in this encounter Care Teams Personnel Counselor Relationship Specialty Start Date End Date Alan Beyer MD [address] [place], [place] [id number] PCP - General Family Medicine 06/08/23 documented as of this encounter
--- OUTSIDE RECORDS SUMMARY | 2024-11-27 14:58 | XMS_ITS | Encounter Summary ---
Author Organization [employer] ([place], [place], [place], [place]) Address [address] [place] [address] Care Team Providers Care Button Sewer Name Role Phone Alan Beyer MD Primary Care Provider [phone] Encounter Details Date Type Department Care Team (Late st Contact Info) Description 06/06/2018 Transcribed Document [facility] [place] [address] [place] [address] ProviderJessenia MD [address] [place] [address] Social History Tobacco Use Types [...] - Jessenia ProviderMD - 06/06/2018 5:00 AM DISTRIBUTION FIELD ENGINEER Chart Check - Review Order Profile Entered On: 06/06/2018 5:15 EST Performed On: 06/06/2018 5:00 EST by JULIÁN TAFOYA, RN Chart Check Chart Reviewed Date and Time : 06/06/2018 5:00 EST Powerplans Initiated/Discontinued as Appropriate : Yes All Active Orders Reviewed : Yes Chart Reviewed With : JULIÁN TAFOYA, RN JULIÁN TAFOYA, RN - 06/06/2018 5:14 EST Electronically signed by Jannette [facility] Conversion Knitter Hand Cerner at 08/31/2022 5:09 PM CDT documented in this encounter Plan of Treatment Not on file documented as of this encounter Visit Diagnoses Not on filedocumented in this encounter Care Teams Button Sewer Relationship Specialty Start Date End Date Alan Beyer MD [address] [place] [address] PCP - General Family Medicine 06/08/23 documented as of this encounter
--- OUTSIDE RECORDS SUMMARY | 2024-11-27 14:59 | XMS_ITS | Encounter Summary ---
Author Organization [employer] ([place], [place], [place], [place]) Address [address] [place] [address] Care Team Providers Care Inspecting And Testing Lead Hand Name Role Phone Alan Beyer MD Primary Care Provider [phone] Encounter Details Date Type Department Care Team (Late st Contact Info) Description 06/28/2018 Transcribed Document [facility] [place] [facility] [place] [address] ProviderJessenia MD [address] [place] [address] Social History Tobacco Use Types Packs/Day Years Used Date Smoking Tobacco: Never Assessed Comments Unknown Sex and Gender Information Value Date Recorded Sex Assigned at Not on file Legal Sex Female 4:28 PM CDT Gender Identity Not on file Sexual Orientation Not on file documented as of this encounter Miscellaneous Notes * Cerner Conversion Note - Historical ProviderMD - 06/28/2018 7:31 PM GRID CASTING MACHINE OPERATOR HELPER [address] [place] [address] PERSON INFORMATION Name CHARLINE BOND Age 37 Years 1980 Sex Female Language Estonian PCP JORGE LUIS BUENO, LIGIA-CLAUDIO Marital Status Med Service Emergency Medicine Acct# Arrival 06/28/2018 13:18:00 Visit Reason Vaginal pain; POST HYSTERECTOMY PAIN Acuity 3 - Urgent LOS 000 06:13 Depart Date: 06/28/18 07:30 PM Address: [address] [place] [phone] Comment: PROVIDER INFORMATION Provider Role Assigned Unassigned YOVANA JONES PA ED Physician 06/28/2018 16:17:07 MARYSE TAVERAS, BUILDING CUSTODIAN Nurse 06/28/2018 16:17:44 DIAGNOSIS History of hysterectomy; [...] clindamycin; doxycycline; meperidine Medications: Prescription Display acetaminophen-hydrocodone ([place] 5 mg-325 mg oral tablet) 1 Tab, Oral, Tab, Q6H, PRN for pain, X 3 Day(s), # 12 Tab, 0 Refill(s) metroNIDAZOLE (Flagyl 500 mg oral tablet) 1 Tab, Oral, Tab, Q12H, do not drink alcohol not to exceed 4 g/day, X 7 Day(s), # 14 Tab, 0 Refill(s), Pharmacy: [facility]/pharmacy #[id number] promethazine (promethazine 25 mg oral tablet) 1 Tab, Oral, Tab, Q4H, PRN as needed for nausea/vomiting, # 60 Tab, 0 Refill(s), Pharmacy: [facility]/pharmacy #[id number] Home Meds Display conjugated estrogens (Premarin) Oral, Daily, 0 Refill(s) fexofenadine (Karine) Oral, 0 Refill(s) ibuprofen 0 Refill(s) Comment: DISCHARGE INFORMATION Discharge Disposition: Home Discharge Location: PATIENT EDUCATION INFORMATION Instructions: Vaginal Hysterectomy, Care After; Hysterectomy Information, Eonc-[id number] Follow up: With: Address: When: DORIS BRANCH [address] [facility], [address] [place], [place] [id number] [facility] (1) Within 2 to 3 days Comments: Call for follow up appointment sunday morining return to er if symptoms worsen, take meds as prescribed, keep using cream, no intercourse and bed rest hope you feel better! With: Address: When: [address] [place], [place] [id number] Business (1) Within 2 to 3 days Comment: documented in this encounter Plan of Treatment Not on file documented as of this encounter Visit Diagnoses Not on filedocumented in this encounter Care Teams Inspecting And Testing Lead Hand Relationship Specialty Start Date End Date Alan Beyer MD [address] [place] [address] PCP - General Family Medicine 06/08/23 documented as of this encounter
--- OUTSIDE RECORDS SUMMARY | 2024-11-27 14:59 | XMS_ITS | Encounter Summary ---
Author Organization [employer] ([place], [place], [place], [place]) Address [address] [place] [address] Care Team Providers Care Digital Computer Systems Analyst Name Role Phone Alan Beyer MD Primary Care Provider [phone] Encounter Details Date Type Department Care Team (Late st Contact Info) Description 11/07/2019 Transcribed Document [facility] [place] [facility] [place] [facility] [place] [address] ProviderJessenia MD [address] [place] [address] Social History Tobacco Use Types Packs/Day Years Used Date Smoking Tobacco: Never Assessed Comments Unknown Sex and Gender Information Value Date Recorded Sex Assigned at Not on file Legal Sex Female 4:28 PM CDT Gender Identity Not on file Sexual Orientation Not on file documented as of this encounter Miscellaneous Notes * Cerner Conversion Note - Historical ProviderMD - 11/07/2019 1:29 AM CDT [address] [place] [id number] Visit Date/Time: 11/07/2019 01:29:28 CHARLINE BOND The above patient was seen in the hospital today and needs to be excused from work/school until Return to Work/School Date: 11-08-2019 documented in this encounter Plan of Treatment Not on file documented as of this encounter Visit Diagnoses Not on filedocumented in this encounter Care Teams Digital Computer Systems Analyst Relationship Specialty Start Date End Date Alan Beyer MD [address] [place] [address] PCP - General Family Medicine 06/08/23 documented as of this encounter
--- OUTSIDE RECORDS SUMMARY | 2024-11-27 14:59 | XMS_ITS | Encounter Summary ---
Author Organization [employer] ([place], [place], [place], [place]) Address [address] [place] [address] Care Team Providers Care Ordnance Artificer Name Role Phone Alan Beyer MD Primary Care Provider [phone] Encounter Details Date Type Department Care Team (Late st Contact Info) Description 08/12/2019 Transcribed Document [facility] Radiology [address] [place] [address] Yomi Rodríguez MD [address] [place] [address] Dept. of Emergency Medicine [place], [place] [id number] Social History Tobacco Use Types Packs/Day Years [...] able for repeat 2 view. 08/11/2019 17:31 (KIRK NOGUERA) Provider Review Required documented in this encounter Plan of Treatment Not on file documented as of this encounter Visit Diagnoses Not on filedocumented in this encounter Care Teams Ordnance Artificer Relationship Specialty Start Date End Date Alan Beyer MD [address] [place] [address] PCP - General Family Medicine 06/08/23 documented as of this encounter
--- OUTSIDE RECORDS SUMMARY | 2024-11-27 14:59 | XMS_ITS | Encounter Summary ---
Author Organization [employer] ([place], [place], [place], [place]) Address [address] [place] [address] Care Team Providers Care Auto Body Shop Manager Name Role Phone Alan Beyer MD Primary Care Provider [phone] Encounter Details Date Type Department Care Team (Late st Contact Info) Description 11/06/2019 Transcribed Document [facility] [place] [address] [place] [address] ProviderJessenia MD [address] [place], [place] [id number] Social History Tobacco Use Types Packs/Day Years Used Date Smoking Tobacco: Never Assessed Comments Unknown Sex and Gender Information Value Date Recorded Sex Assigned at Not on file Legal Sex Female 4:28 PM CDT Gender Identity Not on file Sexual Orientation Not on file documented as of this encounter Miscellaneous Notes * Cerner Conversion Note - Jessenia ProviderMD - 11/06/2019 7:42 PM CDT [place] Suicide Severity Rating Scale (C-SSRS) Entered On: 11/06/2019 22:27 EDT Performed On: 11/06/2019 22:25 EDT by Albert Mckeon RN [place] Suicide Severity Rating Scale (C-SSRS) CSSRS Past Month Wish to be : No CSSRS Past Month Suicidal Thoughts : No CSSRS Lifetime Suicide Behavior : No Suicide Severity Rating Score : 0 Suicide Severity Rating : No Additional Care Required at this time Albert Mckeon RN - 11/06/2019 22:25 EDT Electronically signed by Jannette [facility] Conversion Furniture Salesperson Cerner at 08/31/2022 5:06 PM CDT documented in this encounter Plan of Treatment Not on file documented as of this encounter Visit Diagnoses Not on filedocumented in this encounter Care Teams Auto Body Shop Manager Relationship Specialty Start Date End Date Alan Beyer MD [address] [place] [address] PCP - General Family Medicine 06/08/23 documented as of this encounter
--- OUTSIDE RECORDS SUMMARY | 2024-11-27 14:59 | XMS_ITS | Encounter Summary ---
Author Organization [employer] ([place], [place], [place], [place]) Address [address] [place] [address] Care Team Providers Care High School Assistant Principal Name Role Phone Alan Beyer MD Primary Care Provider [phone] Encounter Details Date Type Department Care Team (Late st Contact Info) Description 11/07/[address] [facility] [place] [facility] [place] [address] ProviderJessenia MD [address] [place] [address] Social History Tobacco Use Types [...] Alvarez MD - 11/07/2019 1:21 AM CDT [place] [id number] CHARLINE BOND :1980 Visit Time:11/06/2019 Your Visit [...] You urine culture is pending Where: [address] [facility] [address] [place] [address]- Business (1) Follow Up with Follow up with specialist When Within 2 to 3 days Follow Up with ANSLEY GUADALUPE When Within 2 to 3 days Where: [address] [facility] [address] [place] [address] Business (1) Allergies Bactrim acetaminophen-oxyCODONE clindamycin Toradol baclofen doxycycline escitalopram fentaNYL lidocaine topical 2% gel meperidine morphine penicillin (Hives) tetanus immune globulin Immunizations This Visit No Immunizations Found Medications What How Much When Instructions Next Dose acetaminophen-hydrocodone ([place] 7.5 mg-325 mg oral tablet) 1 Tablet(s) [...] range between ( 1.0 and 7.0 ) Dupage #: 0.49 K/uL -- Normal range between ( 0.24 and 0.82 ) Eos #: 0.10 K/uL -- Normal range between ( 0.04 and 0.54 ) Dupage %: 5.5 % -- Normal range between [...] ) Urine Bilirubin Dipstick: Negative Urine Specific Fall[place]imber: 1.019 -- Normal range between ( 1.005 [...] this condition includes: ??? Antibiotic medicine. ??? Sspt-onn-xyphkmo medicines to treat discomfort. ??? Drinking enough [...] these instructions at home: Medicines ??? Take tqfj-wnx-qcqhjha and prescription medicines only as told by [...] 02/07/2006 Document Revised: 04/17/2019 Document Reviewed: 11/07/2018 [email or web address] Interactive Patient Education ?? 2020 [employer]. Dysuria Dysuria is pain or discomfort while [...] may irritate the prostate. Medicines ??? Take texh-vbl-jsquppy and prescription medicines only as told by [...] 01/26/2005 Document Revised: 02/14/2018 Document Reviewed: 02/14/2018 [email or web address] Interactive Patient Education ?? 2020 [employer]. Emergency Awareness and Preventative Care STROKE is [...] Assistance with quitting is available by contacting 7-080-KPZE-NOW. This is a free resource providing counseling, [...] was given the opportunity to ask questions. Patient/Kindergarten Teacher Assistant Name: Patient/Kindergarten Teacher Assistant Signature: Relationship to Patient: Clinician/Hospital Kindergarten Teacher Assistant Signature: Please Provide a Telephone Number Where You Can Be Reached: Is it Permissible To Leave a Message? Date: documented in this encounter Plan of Treatment Not on file documented as of this encounter Visit Diagnoses Not on filedocumented in this encounter Care Teams High School Assistant Principal Relationship Specialty Start Date End Date Alan Beyer MD [address] [place] [address] PCP - General Family Medicine 06/08/23 documented as of this encounter
--- OUTSIDE RECORDS SUMMARY | 2024-11-27 14:59 | XMS_ITS | Encounter Summary ---
Author Organization [employer] ([place], [place], [place], [place]) Address [address] [place] [address] Care Team Providers Care Rail Splitter Name Role Phone Alan Beyer MD Primary Care Provider [phone] Encounter Details Date Type Department Care Team (Late st Contact Info) Description 11/07/2019 Transcribed Document [facility] [place] [facility] [place] [address] ProviderJessenia MD [address] [place] [address] Social History Tobacco Use Types Packs/Day Years [...] I have reviewed it.. Surgical history: Clavicle ([id number]). Tympanostomy (2261310634). Adenoids (924441855). shoulder surgery. Gallbladder absent (090925809). Tubal ligation (788172035). Hysterectomy (274004373)., Reviewed as documented in chart. Family history: [...] EDT Height Source Measured Height Entry Format [place] Height/Length, BURKINAN (ft) 5 ft Height/Length BURKINAN 5 Inch CLINICALHEIGHT 165.1 cm [place] Body Weight 56.59 kg Weight Source, ED Standing scale Weight Entry Format [place] Weight Mohawk lb 170 lb CLINICALWEIGHT 77.27 kg Body [...] % 38.8 % Lymph # 3.48 K/uL [place] % 5.5 % [place] # 0.49 K/uL Eos % 1.1 % Eos # 0.10 K/uL Baso % 0.2 % Baso # 0.02 K/uL Slide Review No IG# 0 x10(3)/uL IG% 0 % 11/06/2019 20:14 EDT Urine Type U CleanCatch Urine Color Red Urine Appearance Cloudy Urine Specific [place] Line 1.019 Urine pH Dipstick 5.5 LOW Urine [...] Radiology results: Radiology Results (Last 48 hours) [id number] -- 11/06/2019 19:42 CT Abdomen Pelvis WO [...] to: Home, Other DC instructions: with designated road oiling truck driver. Prescriptions: Prescription Condenser Setter Pharmacy: Ceftin 250 mg oral tablet (Prescribe): 1 Tab, Oral, BID, for 5 Day(s), 10 Tab, 0 Refill(s) meclizine 25 mg oral tablet, chewable (Prescribe): 1-2 Tab, Chew, TID, for 10 Day(s), PRN: for nausea/vomiting, 30 Tab, 0 Refill(s) [place] 7.5 mg-325 mg oral tablet (Prescribe): 1 [...] filedocumented in this encounter Care Teams Rail Splitter Relationship Specialty Start Date End Date Alan Beyer MD [address] [place] [address] PCP - General Family Medicine 06/08/23 documented as of this encounter
--- OUTSIDE RECORDS SUMMARY | 2024-11-27 14:59 | XMS_ITS | Encounter Summary ---
Author Organization [employer] ([place], [place], [place], [place]) Address [address] [place] [address] Care Team Providers Care Special Tester Name Role Phone Alan Beyer MD Primary Care Provider Encounter Details Date Type Department Care Team (Late st Contact Info) Description 11/06/2019 Transcribed Document [facility] [place] [address] [place] [address] ProviderJessenia MD [address] [place], [place] [address] Social History Tobacco Use Types Packs/Day Years Used Date Smoking Tobacco: Never Assessed Comments Unknown Sex and Gender Information Value Date Recorded Sex Assigned at Not on file Legal Sex Female 4:28 PM CDT Gender Identity Not on file Sexual Orientation Not on file documented as of this encounter Miscellaneous Notes * Cerner Conversion Note - Jessenia ProviderMD - 11/06/2019 7:42 PM CDT ED Assessment [...] Communication Barrier : None Primary Language : Macedonian Any Spiritual/Cultural Needs or Requests : No [...] 05/24/2018 10:39:04 EST by Breanna Ivey, ELVER) Genitourinary Assessment, ED Genitourinary Assessment WDL : [...] 11/06/2019 22:25 EDT Electronically signed by Jannette [facility] Conversion Mud Tank Operator Cerner at 08/31/2022 5:08 PM CDT documented in this encounter Plan of Treatment Not on file documented as of this encounter Visit Diagnoses Not on filedocumented in this encounter Care Teams Special Tester Relationship Specialty Start Date End Date Alan Beyer MD [address] [place] [address] PCP - General Family Medicine 06/08/23 documented as of this encounter
--- OUTSIDE RECORDS SUMMARY | 2024-11-27 14:59 | XMS_ITS | Encounter Summary ---
Author Organization [facility] Address [address] [place] [address] Care Team Providers Care Seed Trucker Name Role Phone Sage Zeng MD Primary Care Provider [phone] Reason for Referral * Consultation (Routine) - Authorized Specialty Diagnoses / Procedures Referred By Vladislav t Referred To Contact Dental Director Oncology / Dentistry Diagnoses Loss of teeth Ellis Farias APRN [address] [place] [address] Phone: tel: fax: [facility] [address] [place] [address] Phone: tel: fax: Referral ID Status Reason Start Date Expiration Date Visits Requested Visits Authorized [id number] Authorized Specialty Services Required 09/23/2024 03/25/2026 1 1 Encounter Details Date Type Department Care Team (Late st Contact Info) Description 09/23/2024 [facility] [address] [place] [phone] Ellis Farias APRN [address] [place] [address] Loss of teeth (Primary Dx) [...] Upcoming Encounters Date Type Department Care Team ([facility] st Contact Info) Description 12/03/2024 9:00 AM EDT Office Visit [facility] [address] [place] [address] Xavier Escobedo, DIDIER [address] [facility] [place] [address] Scheduled Referrals Name Type Priority Associated Diagnoses [...] documented as of this encounter Care Teams Seed Trucker Relationship Specialty Start Date End Date Sage Zeng MD [address] [place] [address] PCP - General 09/24/20 documented as of this encounter
--- OUTSIDE RECORDS SUMMARY | 2024-11-27 14:59 | XMS_ITS | Encounter Summary ---
Author Organization [employer] ([place], [place], [place], [place]) Address [address] [place] [address] Care Team Providers Care Bulk Mail Technician Name Role Phone Alan Beyer MD Primary Care Provider [phone] Encounter Details Date Type Department Care Team (Late st Contact Info) Description 11/07/2019 Transcribed Document [facility] [place] [facility] [place] [address] ProviderJessenia MD [address] [place], [place] [address] Social History Tobacco Use Types Packs/Day Years Used Date Smoking Tobacco: Never Assessed Comments Unknown Sex and Gender Information Value Date Recorded Sex Assigned at Not on file Legal Sex Female 4:28 PM CDT Gender Identity Not on file Sexual Orientation Not on file documented as of this encounter Miscellaneous Notes * Cerner Conversion Note - Jessenia ProviderMD - 11/07/2019 1:25 AM CDT ED Discharge [...] Albert Mckeon RN - 11/07/2019 3:16 EDT documented in this encounter Plan of Treatment Not on file documented as of this encounter Visit Diagnoses Not on filedocumented in this encounter Care Teams Bulk Mail Technician Relationship Specialty Start Date End Date Alan Beyer MD [address] [place] [address] PCP - General Family Medicine 06/08/23 documented as of this encounter
--- OUTSIDE RECORDS SUMMARY | 2024-11-27 14:59 | XMS_ITS | Clinical Summary ---
Author Organization [facility] Address [address] [place] [address] Care Team Providers Care Brand Executive Name Role Phone Sage Zeng MD Primary Care Provider [phone] Allergies Active Allergy Reactions Criticality Noted Date [...] MG tablet 3 Active ergocalciferol 1.25 MG (45129 UT) capsule Vitamin D (Ergocalcifero l) 1.25 MG (52962 UT) Oral Capsule QTY: 0 capsule Days: 0 Refills: 0 Written: 07/12/22 Patient Instructions: 3 Active Encounters Date Type Department Care Team Description 09/23/2024 [facility] [address] [place] [phone] Ellis Farias, BOTTLE LABEL INSPECTOR Loss of teeth (Primary Dx) from Last [...] Upcoming Encounters Date Type Department Care Team ([facility] st Contact Info) Description 12/03/2024 9:00 AM EDT Office Visit [facility] [address] [place] [address] Xavier Escobedo, DIDIER [address] [facility] [place] [address] Health Maintenance Due Date Last Done Comments [...] 11/06/2003 [facility]-Cervical Cancer Screening 2012 [facility]-HPV/Cotest 2012 [id number] Vaccine ( - season) 2024 07/29/2021, 02/28/2021, 02/03/2021 [facility]-Influenza Vaccine (#1) 01/12/202501/22, 03/21/2023, 02/11/2022, Additional history exists [facility]-Zoster Vaccines (1 of 2) 2032 [facility]-Pneumococcal Vaccine: Pediatrics (0 to 5 Years) and At-Risk Patients (6 to 49 Years) Aged Out 02/20/2017, 02/16/2016 No longer eligibl e based on patient's age to complete this topic [facility]-HIB Vaccines Aged Out No longer e [...] patient's age to complete this topic Insurance [place] [address] [facility] [place] [address] Care Teams Brand Executive Relationship Specialty Start Date End Date Sage Zeng MD [address] [place] [address] PCP - General 09/24/20
--- OUTSIDE RECORDS SUMMARY | 2024-11-27 14:59 | XMS_ITS | Encounter Summary ---
Author Organization [employer] ([place], [place], [place], [place]) Address [address] [place] [address] Care Team Providers Care Chemical Production Machine Operator Name Role Phone Alan Beyer MD Primary Care Provider [phone] Encounter Details Date Type Department Care Team (Late st Contact Info) Description 06/28/2018 Transcribed Document [facility] [place] [address] [place] [address] ProviderJessenia MD [address] [place], [place] [address] Social History Tobacco Use Types Packs/Day Years Used Date Smoking Tobacco: Never Assessed Comments Unknown Sex and Gender Information Value Date Recorded Sex Assigned at Not on file Legal Sex Female 4:28 PM CDT Gender Identity Not on file Sexual Orientation Not on file documented as of this encounter Miscellaneous Notes * Cerner Conversion Note - Historical ProviderMD - 06/28/2018 6:38 PM CROP OR GRAIN FARMER Electronically signed by [facility] Conversion Manager Planning Cerner at 08/31/2022 4:59 PM CDT documented in this encounter Plan of Treatment Not on file documented as of this encounter Visit Diagnoses Not on filedocumented in this encounter Care Teams Chemical Production Machine Operator Relationship Specialty Start Date End Date Alan Beyer MD [address] [place] [address] PCP - General Family Medicine 06/08/23 documented as of this encounter
--- OUTSIDE RECORDS SUMMARY | 2024-11-27 14:59 | XMS_ITS | Encounter Summary ---
Author Organization [employer] ([place], [place], [place], [place]) Address [address] [place] [address] Care Team Providers Care Assistant Hairstylist Name Role Phone Alan Beyer MD Primary Care Provider [phone] Encounter Details Date Type Department Care Team (Late st Contact Info) Description 06/28/2018 Transcribed Document [facility] [place] Family [place] [address] ProviderJessenia MD [address] [place], [place] [address] Social History Tobacco Use Types Packs/Day Years Used Date Smoking Tobacco: Never Assessed Comments Unknown Sex and Gender Information Value Date Recorded Sex Assigned at Not on file Legal Sex Female 4:28 PM CDT Gender Identity Not on file Sexual Orientation Not on file documented as of this encounter Miscellaneous Notes * Cerner Conversion Note - Jessenia Alvarez MD - 06/28/2018 6:32 PM TIME STUDY CLERK Patient: CHARLINE BOND Age: 37 years Sex: [...] as documented in chart. Surgical history: Clavicle ([id number]). Tympanostomy ([id number]). Adenoids ([id number]). shoulder surgery. Gallbladder absent ([id number]). Tubal ligation ([id number]). Hysterectomy ([id number])., Reviewed as documented in chart. Family history: [...] EST Height Source Stated Height Entry Format [place] Height/Length, NEPALESE (ft) 5 ft Height/Length NEPALESE 5 Inch CLINICALHEIGHT 165.1 cm [place] Body Weight 56.59 kg Weight Source, ED Standing scale Weight Entry Format [place] Weight Amharic lb 161 lb CLINICALWEIGHT 73.18 kg Body [...] Color Yellow Urine Appearance Clear Urine Specific [place] 1.012 Urine pH Dipstick 6.0 Urine Leukocyte [...] % 34.7 % Lymph # 2.49 K/uL [place] % 4.6 % LOW [place] # 0.33 K/uL Eos % 1.1 % Eos # 0.08 K/uL Baso % 0.1 % Baso # 0.01 K/uL Slide Review No IG# 0 x10(3)/uL IG% 0 % . Radiology results: Radiology Results (Last 48 hours) [id number] -- 06/28/2018 13:18 CT Abdomen Pelvis W [...] meds. Plan Condition: Improved, Stable. Prescriptions: Prescription [facility]: Flagyl 500 mg oral tablet (Prescribe): 1 Tab, Oral, Q12H, for 7 Day(s), do not drink alcohol not to exceed 4 g/day, 14 Tab, 0 Refill(s) [place] 5 mg-325 mg oral tablet (Prescribe): 1 Tab, Oral, Q6H, for 3 Day(s), PRN: for pain, 12 Tab, 0 Refill(s) promethazine 25 mg oral tablet (Prescribe): 1 Tab, Oral, Q4H, PRN: as needed for nausea/vomiting, 60 Tab, 0 Refill(s). Patient was given the following educational materials: Hysterectomy Information, Hyer-xh-Ouyf, Vaginal Hysterectomy, Care After. Follow up with: [...] filedocumented in this encounter Care Teams Assistant Hairstylist Relationship Specialty Start Date End Date Alan Beyer MD [address], [place] [id number] PCP - General Family Medicine 06/08/23 documented as of this encounter
--- OUTSIDE RECORDS SUMMARY | 2024-11-27 14:59 | XMS_ITS | Encounter Summary ---
Author Organization [employer] ([place], [place], [place]) Address [address] [place] [address] Care Team Providers Care Plate Maker Zinc Name Role Phone Alan Beyer MD Primary Care Provider [phone] Encounter Details Date Type Department Care Team (Late st Contact Info) Description 06/28/2018 Transcribed Document [facility] Family Medicine [address] [place] [address] ProviderJessenia MD [address] [place], [place] [address] Social History Tobacco Use Types Packs/Day Years Used Date Smoking Tobacco: Never Assessed Comments Unknown Sex and Gender Information Value Date Recorded Sex Assigned at Not on file Legal Sex Female 4:28 PM CDT Gender Identity Not on file Sexual Orientation Not on file documented as of this encounter Miscellaneous Notes * Cerner Conversion Note - Jessenia ProviderMD - 06/28/2018 1:18 PM SHOP ASSISTANT ED Assessment Entered On: 06/28/2018 17:29 EST [...] Communication Barrier : None Primary Language : Persian Any Spiritual/Cultural Needs or Requests : No [...] filedocumented in this encounter Care Teams Plate Maker Zinc Relationship Specialty Start Date End Date Alan Beyer MD [address] [place] [address] PCP - General Family Medicine 06/08/23 documented as of this encounter
--- OUTSIDE RECORDS SUMMARY | 2024-11-27 14:59 | XMS_ITS | Encounter Summary ---
Author Organization [employer] ([place], [place], [place]) Address [address] [place] [address] Care Team Providers Care Dwarf Tree Grower Name Role Phone Alan Beyer MD Primary Care Provider [phone] Encounter Details Date Type Department Care Team (Late st Contact Info) Description 11/06/2019 Transcribed Document [facility] [place] [address] [place] [address] ProviderJessenia MD [address] [place], [place] [id number] Social History Tobacco Use Types Packs/Day Years [...] ProviderMD - 11/06/2019 7:42 PM CDT ED Triage [...] Tracking Group : [facility] ED East LEONID CASTANEDA RN - 11/06/2019 [...] 11/06/2019 20:12:51 EDT) Problems(Active) Anxiety (SNOMED CT :21498961 ) Name of Problem: Anxiety ; Recorder: ERICKA ISSA RN; Confirmation: Confirmed ; Classification: Medical ; Code: 64020378 ; Contributor System: PowerChart ; Last Updated: 07/26/2015 22:28 EDT ; Life Cycle Date: 07/26/2015 ; Life Cycle Status: Active ; Vocabulary: SNOMED CT Endometriosis, vagina (SNOMED CT :87315198 ) Name of Problem: Endometriosis, vagina ; Recorder: Breanna Ivey RN; Confirmation: Confirmed ; Classification: Medical ; Code: 70267615 ; Contributor System: PowerChart ; Last Updated: 05/24/2018 10:54 EST ; Life Cycle Date: 05/24/2018 ; Life Cycle Status: Active ; Vocabulary: SNOMED CT Kidney stones (SNOMED CT :532586067 ) Name of Problem: Kidney stones ; Recorder: KAYY ANDREW; Confirmation: Confirmed ; Classification: Medical ; Code: 541049899 ; Contributor System: [employer] ; Last Updated: 06/06/2016 9:30 EST ; Life Cycle Date: 06/06/2016 ; Life Cycle Status: Active ; Vocabulary: SNOMED CT Migraine (SNOMED CT :73886795 ) Name of Problem: Migraine ; Recorder: ERICKA ISSA RN; Confirmation: Confirmed ; Classification: Medical ; Code: 80726088 ; Contributor System: PowerChart ; Last Updated: 07/26/2015 22:28 EDT ; Life Cycle Date: 07/26/2015 ; Life Cycle Status: Active ; Vocabulary: SNOMED CT S/P hysterectomy (SNOMED CT :977501521 ) Name of Problem: S/P hysterectomy ; Recorder: LEONID CASTANEDA RN; Confirmation: Confirmed ; Classification: Medical ; Code: 786228571 ; Contributor System: PowerChart ; Last Updated: 11/06/2019 20:08 EDT ; Life Cycle Date: 11/06/2019 ; Life Cycle Status: Active ; Vocabulary: SNOMED CT Shoulder pain, left (SNOMED CT :85648017 ) Name of Problem: Shoulder pain, left ; Recorder: Breanna Ivey RN; Confirmation: Confirmed ; Classification: Medical ; Code: 65582315 ; Contributor System: [employer] ; Last Updated: 05/24/2018 10:53 EST ; Life Cycle Date: 05/24/2018 ; Life Cycle Status: Active ; Vocabulary: SNOMED CT Diagnoses(Active) Blood in urine Date: 11/06/2019 ; Diagnosis Type: Reason For Visit ; Confirmation: Complaint of ; Clinical Dx: Blood in urine ; Classification: Medical ; Clinical Service: Emergency medicine ; Code: PNED ; Probability: 0 ; Diagnosis Code: [id number] Flank pain Date: 11/06/2019 ; Diagnosis Type: Reason For Visit ; Confirmation: Complaint of ; Clinical Dx: Flank pain ; Classification: Medical ; Clinical Service: Emergency medicine ; Code: PNED ; Probability: 0 ; Diagnosis Code: [id number] Nausea Date: 11/06/2019 ; Diagnosis Type: Reason For Visit ; Confirmation: Complaint of ; Clinical Dx: Nausea ; Classification: Medical ; Clinical Service: Emergency medicine ; Code: PNED ; Probability: 0 ; Diagnosis Code: [id number] Vomiting Date: 11/06/2019 ; Diagnosis Type: Reason For Visit ; Confirmation: Complaint of ; Clinical Dx: Vomiting ; Classification: Medical ; Clinical Service: Emergency medicine ; Code: PNED ; Probability: 0 ; Diagnosis Code: [id number] ED Height and Weight Height Source : Measured Height Entry Format : [place] Height, Feet : 5 ft(Converted to: 152 cm, 60 Inch) Height, Inches : 5 Inch(Converted to: 0 ft 5 Inch, 12.70 cm) Clinical Height : 165.1 cm Weight Source, ED : Standing scale Weight Entry Format : [place] Weight, Pounds : 170 lb Clinical Dosing Weight : 77.27 kg Body Surface Area (BSA) : 1.85 m2 Body Mass Index : 28.3 kg/m2 (HI) [place] Body Weight (IBW) : 56.59 kg LEONID [...] on filedocumented in this encounter Care Teams Dwarf Tree Grower Relationship Specialty Start Date End Date Alan Beyer MD [address] [place] [address] PCP - General Family Medicine 06/08/23 documented as of this encounter
--- OUTSIDE RECORDS SUMMARY | 2024-11-27 15:00 | XMS_ITS | Encounter Summary ---
Author Organization [facility] [place] [address] Care Team Providers Care Astronaut Mission Specialist Name Role Phone Alan Beyer MD Primary Care Provider [phone] Encounter Details Date Type Department Care Team [...] 7:56 PM EDT Nakita Mojica RN * [place] Suicide Severity Rating Scale (Q shift for [...] 12/31/2024 9:25 AM EDT Hospital Encounter EDG [address] [place] [address] Elias De La Cruz MD [address] [place], [place] [id number] 12/31/2024 9:25 AM EDT - 12/31/2024 10:00 AM EDT Surgery EDG [address] [place] [address] [place] [address] [place] [id number] CARPAL TUNNEL RELEASE ENDOSCOPIC 01/14/2025 8:45 AM EDT Office Visit [facility] [address] [facility] [address] [place], [place] [id number] Shira Ambrose PA-C [address] [place] [address] Scheduled Procedures Name Priority Associated Diagnoses Date/Ti me CARPAL TUNNEL RELEASE ENDOSCOPIC Right carpal tunnel syndrome 12/31/2024 9:25 AM EDT CARPAL TUNNEL RELEASE Right carpal tunnel syndrome 12/31/2024 9:25 AM EDT documented as of this encounter Visit Diagnoses Not on filedocumented in this encounter Care Teams Astronaut Mission Specialist Relationship Specialty Start Date End Date Alan Beyer MD PCP - General Family Medicine 10/05/24 documented as of this encounter
--- OUTSIDE RECORDS SUMMARY | 2024-11-27 15:00 | XMS_ITS | Encounter Summary ---
Author Organization [employer] ([place], [place], [place], [place]) Address [address] [place] [address] Care Team Providers Care Biometrics Experimentalist Name Role Phone Alan Beyer MD Primary Care Provider [phone] Encounter Details Date Type Department Care Team (Late st Contact Info) Description 06/28/2018 Transcribed Document [facility] [place] Medicine [facility] [place] [address] ProviderJessenia MD [address] [place], [place] [id number] Social History Tobacco Use Types Packs/Day Years Used Date Smoking Tobacco: Never Assessed Comments Unknown Sex and Gender Information Value Date Recorded Sex Assigned at Not on file Legal Sex Female 4:28 PM CDT Gender Identity Not on file Sexual Orientation Not on file documented as of this encounter Miscellaneous Notes * Cerner Conversion Note - Jessenia ProviderMD - 06/28/2018 1:18 PM RUBBER MILL TENDER ED Triage Entered On: 06/28/2018 13:25 EST Performed On: 06/28/2018 13:22 EST by Charline Love WEIGHER AND MIXER Triage Across the Room Triage Date/Time : 06/28/2018 13:22 EST Chief Complaint : Pt states 3 week post-op vaginal hysterectomy, c/o vaginal pain starting last night. Charline Love RN - 06/28/2018 13:22 EST DCP GENERIC CODE Tracking Acuity : 3 - Urgent Tracking Group : [facility] ED [facility] Charline Love RN - 06/28/2018 [...] 06/28/2018 13:25:51 EST) Problems(Active) Anxiety (SNOMED CT :01589580 ) Name of Problem: Anxiety ; Recorder: ERICKA ISSA RN; Confirmation: Confirmed ; Classification: Medical ; Code: 43705925 ; Contributor System: [employer] ; Last Updated: 07/26/2015 22:28 EDT ; Life Cycle Date: 07/26/2015 ; Life Cycle Status: Active ; Vocabulary: SNOMED CT Endometriosis, vagina (SNOMED CT :76927437 ) Name of Problem: Endometriosis, vagina ; Recorder: Breanna Ivey Rn; Confirmation: Confirmed ; Classification: Medical ; Code: 90336119 ; Contributor System: PowerChart ; Last Updated: 05/24/2018 10:54 EST ; Life Cycle Date: 05/24/2018 ; Life Cycle Status: Active ; Vocabulary: SNOMED CT Kidney stones (SNOMED CT :103534994 ) Name of Problem: Kidney stones ; Recorder: KAYY ANDREW; Confirmation: Confirmed ; Classification: Medical ; Code: 331864336 ; Contributor System: [employer]Chart ; Last Updated: 06/06/2016 9:30 EST ; Life Cycle Date: 06/06/2016 ; Life Cycle Status: Active ; Vocabulary: SNOMED CT Migraine (SNOMED CT :89430353 ) Name of Problem: Migraine ; Recorder: ERICKA ISSA RN; Confirmation: Confirmed ; Classification: Medical ; Code: 54135321 ; Contributor System: [employer] ; Last Updated: 07/26/2015 22:28 EDT ; Life Cycle Date: 07/26/2015 ; Life Cycle Status: Active ; Vocabulary: SNOMED CT Shoulder pain, left (SNOMED CT :73196925 ) Name of Problem: Shoulder pain, left ; Recorder: Breanna Ivey Rn; Confirmation: Confirmed ; Classification: Medical ; Code: 05620280 ; Contributor System: [employer] ; Last Updated: 05/24/2018 10:53 EST ; Life Cycle Date: 05/24/2018 ; Life Cycle Status: Active ; Vocabulary: SNOMED CT Diagnoses(Active) Vaginal pain Date: 06/28/2018 ; Diagnosis Type: Reason For Visit ; Confirmation: Complaint of ; Clinical Dx: Vaginal pain ; Classification: Medical ; Clinical Service: Emergency medicine ; Code: PNED ; Probability: 0 ; Diagnosis Code: [id number] ED Height and Weight Height Source : Stated Height Entry Format : [place] Height, Feet : 5 ft(Converted to: 152 cm, 60 Inch) Height, Inches : 5 Inch(Converted to: 0 ft 5 Inch, 12.70 cm) Clinical Height : 165.1 cm Weight Source, ED : Standing scale Weight Entry Format : [place] Weight, Pounds : 161 lb Clinical Dosing Weight : 73.18 kg Body Surface Area (BSA) : 1.81 m2 Body Mass Index : 26.8 kg/m2 (HI) [place] Body Weight (IBW) : 56.59 kg Charline [...] on filedocumented in this encounter Care Teams Biometrics Experimentalist Relationship Specialty Start Date End Date Alan Beyer MD [address] [place] [address] PCP - General Family Medicine 06/08/23 documented as of this encounter
--- OUTSIDE RECORDS SUMMARY | 2024-11-27 15:00 | XMS_ITS | Encounter Summary ---
Author Organization [employer] ([place], [place], [place], [place]) Address [address] [place] [address] Care Team Providers Care Aeronautical Engineering Teacher Name Role Phone Alan Beyer MD Primary Care Provider [phone] Encounter Details Date Type Department Care Team (Late st Contact Info) Description 07/04/2018 Transcribed Document [facility] [place] [facility] [place] [address] ProviderJessenia MD [address] [place] [address] Social History Tobacco Use Types [...] - Jessenia ProviderMD - 07/04/2018 11:09 AM SCHOOL GUARD ED Triage Entered On: 07/04/2018 11:22 EST Performed On: 07/04/2018 11:18 EST by RAJESH MALDONADO, ROTOR BALANCER Triage Across the Room Triage Date/Time : 07/04/2018 11:18 EST Chief Complaint : PT is 3 wks post op from hysterectomy, states something under right lower incision snapped like a rubberband last night , called Dr Flores this morning and was told to come to ED, pain rated 8/10 RAJESH MALDONADO, RN - 07/04/2018 11:18 EST DCP GENERIC CODE Tracking Acuity : 3 - Urgent Tracking Group : [facility] ED [facility] RAJESH MALDONADO RN - [...] 1: hallucinations and angry ; Created By: Beranna Ivey Rn; Reaction Status: Active ; Category: [...] 07/04/2018 11:22:12 EST) Problems(Active) Anxiety (SNOMED CT :74001085 ) Name of Problem: Anxiety ; Recorder: ERICKA ISSA RN; Confirmation: Confirmed ; Classification: Medical ; Code: 93442089 ; Contributor System: [employer] ; Last Updated: 07/26/2015 22:28 EDT ; Life Cycle Date: 07/26/2015 ; Life Cycle Status: Active ; Vocabulary: SNOMED CT Endometriosis, vagina (SNOMED CT :51789482 ) Name of Problem: Endometriosis, vagina ; Recorder: Breanna Ivey Rn; Confirmation: Confirmed ; Classification: Medical ; Code: 70780735 ; Contributor System: PowerChart ; Last Updated: 05/24/2018 10:54 EST ; Life Cycle Date: 05/24/2018 ; Life Cycle Status: Active ; Vocabulary: SNOMED CT Kidney stones (SNOMED CT :709184284 ) Name of Problem: Kidney stones ; Recorder: KAYY ANDREW; Confirmation: Confirmed ; Classification: Medical ; Code: 555450281 ; Contributor System: DragonplayChart ; Last Updated: 06/06/2016 9:30 EST ; Life Cycle Date: 06/06/2016 ; Life Cycle Status: Active ; Vocabulary: SNOMED CT Migraine (SNOMED CT :40831143 ) Name of Problem: Migraine ; Recorder: ERICKA ISSA RN; Confirmation: Confirmed ; Classification: Medical ; Code: 65789637 ; Contributor System: [employer] ; Last Updated: 07/26/2015 22:28 EDT ; Life Cycle Date: 07/26/2015 ; Life Cycle Status: Active ; Vocabulary: SNOMED CT Shoulder pain, left (SNOMED CT :94091430 ) Name of Problem: Shoulder pain, left ; Recorder: Breanna Ivey Rn; Confirmation: Confirmed ; Classification: Medical ; Code: 66138879 ; Contributor System: [employer] ; Last Updated: 05/24/2018 10:53 EST ; Life Cycle Date: 05/24/2018 ; Life Cycle Status: Active ; Vocabulary: SNOMED CT Diagnoses(Active) Surgical problem reevaluation Date: 07/04/2018 ; Diagnosis Type: Reason For Visit ; Confirmation: Complaint of ; Clinical Dx: Surgical problem reevaluation ; Classification: Medical ; Clinical Service: Emergency medicine ; Code: PNED ; Probability: 0 ; Diagnosis Code: [id number] ED Height and Weight Height Source : Stated Height Entry Format : [place] Height, Feet : 5 ft(Converted to: 152 cm, 60 Inch) Height, Inches : 5 Inch(Converted to: 0 ft 5 Inch, 12.70 cm) Clinical Height : 165.1 cm Weight Source, ED : Standing scale Weight Entry Format : [place] Weight, Pounds : 160 lb Clinical Dosing Weight : 72.73 kg Body Surface Area (BSA) : 1.8 m2 Body Mass Index : 26.7 kg/m2 (HI) [place] Body Weight (IBW) : 56.59 kg RAJESH MALDONADO RN - 07/04/2018 11:18 EST ED Influenza/Pneumoccocal Vaccine Influenza Immunization, Current Season : Yes Previous Vaccines from Immunization Schedule : No qualifying data available. RAJESH MALDONADO RN - 07/04/2018 11:18 EST Electronically signed by Trevon Bhatia Conversion Belting And Webbing Inspector Cerner at 08/31/2022 5:03 PM CDT documented in this encounter Plan of Treatment Not on file documented as of this encounter Visit Diagnoses Not on filedocumented in this encounter Care Teams Aeronautical Engineering Teacher Relationship Specialty Start Date End Date Alan Beyer MD [address] [place] [address] PCP - General Family Medicine 06/08/23 documented as of this encounter
--- OUTSIDE RECORDS SUMMARY | 2024-11-27 15:00 | XMS_ITS | Encounter Summary ---
Author Organization [employer] ([place], [place], [place], [place]) Address [address] [place] [address] Care Team Providers Care Car Deliverer Name Role Phone Alan Beyer MD Primary Care Provider [phone] Encounter Details Date Type Department Care Team (Late st Contact Info) Description 11/07/2019 Transcribed Document [facility] [place] Family [place] [facility] [place] [address] ProviderJessenia MD [address] [place], [place] [address] Social History Tobacco Use Types Packs/Day Years Used Date Smoking Tobacco: Never Assessed Comments Unknown Sex and Gender Information Value Date Recorded Sex Assigned at Not on file Legal Sex Female 4:28 PM CDT Gender Identity Not on file Sexual Orientation Not on file documented as of this encounter Miscellaneous Notes * Cerner Conversion Note - Jessenia ProviderMD - 11/07/2019 12:59 AM CDT Electronically signed by [facility] Conversion Conservator Artifacts Cerner at 08/31/2022 5:26 PM CDT documented in this encounter Plan of Treatment Not on file documented as of this encounter Visit Diagnoses Not on filedocumented in this encounter Care Teams Car Deliverer Relationship Specialty Start Date End Date Alan Beyer MD [address] [place] [address] PCP - General Family Medicine 06/08/23 documented as of this encounter
--- OUTSIDE RECORDS SUMMARY | 2024-11-27 15:00 | XMS_ITS | Encounter Summary ---
Author Organization [employer] ([place], [place], [place], [place]) Address [address] [place] [address] Care Team Providers Care Software Developer Name Role Phone Alan Beyer MD Primary Care Provider [phone] Encounter Details Date Type Department Care Team (Late st Contact Info) Description 07/04/2018 Transcribed Document [facility] Family Medicine [address] [place] [address] ProviderJessenia MD [address] [place], [place] [address] Social History Tobacco Use Types Packs/Day Years Used Date Smoking Tobacco: Never Assessed Comments Unknown Sex and Gender Information Value Date Recorded Sex Assigned at Not on file Legal Sex Female 4:28 PM CDT Gender Identity Not on file Sexual Orientation Not on file documented as of this encounter Miscellaneous Notes * Cerner Conversion Note - Historical ProviderMD - 07/04/2018 3:31 PM INSTRUMENTATION MANAGER Electronically signed by [facility] Conversion Medical Transcription Editor Cerner at 08/31/2022 5:01 PM CDT documented in this encounter Plan of Treatment Not on file documented as of this encounter Visit Diagnoses Not on filedocumented in this encounter Care Teams Software Developer Relationship Specialty Start Date End Date Alan Beyer MD [address] [place] [address] PCP - General Family Medicine 06/08/23 documented as of this encounter
--- OUTSIDE RECORDS SUMMARY | 2024-11-27 15:00 | XMS_ITS | Encounter Summary ---
Author Organization [employer] ([place], [place], [place], [place]) Address [address] [place] [address] Care Team Providers Care Bag Turner Name Role Phone Alan Beyer MD Primary Care Provider [phone] Encounter Details Date Type Department Care Team (Late st Contact Info) Description 06/28/2018 Transcribed Document [facility] [place] Family Medicine [address] [place] [address] ProviderJessenia MD [address] [place] [address] Social History Tobacco Use Types Packs/Day Years Used Date Smoking Tobacco: Never Assessed Comments Unknown Sex and Gender Information Value Date Recorded Sex Assigned at Not on file Legal Sex Female 4:28 PM CDT Gender Identity Not on file Sexual Orientation Not on file documented as of this encounter Miscellaneous Notes * Cerner Conversion Note - Jessenia ProviderMD - 06/28/2018 4:50 PM CUSTOMS OPENER VERIFIER PACKER Pain Assessment Entered On: 06/28/2018 17:32 EST [...] filedocumented in this encounter Care Teams Bag Turner Relationship Specialty Start Date End Date Alan Beyer MD [address] [place] [address] PCP - General Family Medicine 06/08/23 documented as of this encounter
--- OUTSIDE RECORDS SUMMARY | 2024-11-27 15:00 | XMS_ITS | Encounter Summary ---
Author Organization [employer] ([place], [place], [place], [place]) Address [address] [place] [address] Care Team Providers Care Assurance Auditor Name Role Phone Alan Beyer MD Primary Care Provider [phone] Encounter Details Date Type Department Care Team (Late st Contact Info) Description 06/28/2018 Transcribed Document [facility] [place] Family Medicine [facility] [place] [address] ProviderJessenia MD [address] [place], [place] [id number] Social History Tobacco Use Types Packs/Day Years Used Date Smoking Tobacco: Never Assessed Comments Unknown Sex and Gender Information Value Date Recorded Sex Assigned at Not on file Legal Sex Female 4:28 PM CDT Gender Identity Not on file Sexual Orientation Not on file documented as of this encounter Miscellaneous Notes * Cerner Conversion Note - Jessenia ProviderMD - 06/28/2018 7:31 PM TILTING SAW OPERATOR [address] [place] [address] Patient Information Name: REFUGIO BOND Age: 37 Years Date of : 1980 Arrival Time: 06/28/2018 13:18:00 Diagnosis History of hysterectomy; Vaginal pain Primary Care Physician: JORGE LUIS BUENO, LIGIA-CLAUDIO Provider Information Primary Provider: YOVANA JONES Secondary Provider: MELISSAREFUGIO MCINTYRE has been given the following list of patient education materials, prescriptions and follow-up instructions: Follow-up Instructions: With: Address: When: DORIS BRANCH [address], [address] [place] [address] Business (1) Within 2 to 3 days Comments: Call for follow up appointment sunday moriyu return to er if symptoms worsen, take meds as prescribed, keep using cream, no intercourse and bed rest hope you feel better! With: Address: When: [address], [address] [place] [address] Business (1) Within 2 to [...] Follow these instructions at home: Medicines??? Take klzy-fzc-jpprcqx and prescription medicines only as told by [...] 07/22/2012 Document Revised: 10/05/2016 Document Reviewed: 01/05/2014 [employer] Interactive Patient Education ? 2017 [employer]. Allergies: fentaNYL; acetaminophen-oxyCODONE; Toradol; Bactrim; escitalopram; lidocaine topical 2% gel; tetanus immune globulin; baclofen; morphine; penicillin; clindamycin; doxycycline; meperidine Medication Information: Prescription Display acetaminophen-hydrocodone ([place]oloa 5 mg-325 mg oral tablet) 1 Tab, Oral, Tab, Q6H, PRN for pain, X 3 Day(s), # 12 Tab, 0 Refill(s) metroNIDAZOLE (Flagyl 500 mg oral tablet) 1 Tab, Oral, Tab, Q12H, do not drink alcohol not to exceed 4 g/day, X 7 Day(s), # 14 Tab, 0 Refill(s), Pharmacy: [facility]/pharmacy #[id number] promethazine (promethazine 25 mg oral tablet) 1 Tab, Oral, Tab, Q4H, PRN as needed for nausea/vomiting, # 60 Tab, 0 Refill(s), Pharmacy: [facility]/pharmacy #[id number] Home Meds Display conjugated estrogens (Premarin) [...] range between ( 1.0 and 7.0 ) [place] #: 0.33 K/uL -- Normal range between ( 0.24 and 0.82 ) Eos #: 0.08 K/uL -- Normal range between ( 0.04 and 0.54 ) [place] %: 4.6 % -- Normal range between [...] Urine Bilirubin Dipstick: Negative mg/dL Urine Specific Ransom: 1.012 -- Normal range between ( 1.005 [...] verify that REFUGIO BOND was seen at [facility] Emergency Department on ,06/28/2018 19:31:01. This [...] along the way. As a healthcare provider, [facility] recommends that you stop smoking. Assistance with quitting is available by contacting 4-456-WQNS-NOW. This is a free resource providing counseling, [...] and accompanying documents are covered by Electronic [employer]ark Privacy Act 18 U.S.C. ???Sections 0558-3167,?? and contain information intended for the specified [...] sure to sign up for the My [facility] patient portal, which gives you 04/12 access to your medical information ??? including these discharge instructions ??? using your computer, smartphone, or tablet. Just go to MyFit to get started. Questions? Call . Acknowledgment [...] Yes____ No____ Nurse Providing Instructions: Emergency Physician: documented in this encounter Plan of Treatment Not on file documented as of this encounter Visit Diagnoses Not on filedocumented in this encounter Care Teams Assurance Auditor Relationship Specialty Start Date End Date Alan Beyer MD [address] [place] [address] PCP - General Family Medicine 06/08/23 documented as of this encounter
--- OUTSIDE RECORDS SUMMARY | 2024-11-27 15:00 | XMS_ITS | Encounter Summary ---
Author Organization [employer] ([place], [place], [place], [place]) Address [address] [place] [address] Care Team Providers Care Loop Machine Operator Name Role Phone Alan Beyer MD Primary Care Provider [phone] Encounter Details Date Type Department Care Team (Late st Contact Info) Description 06/28/2018 Transcribed Document [facility] [place] Family Medicine [address] [place] [address] ProviderJessenia MD [address] [place], [place] [id number] Social History Tobacco Use Types Packs/Day Years Used Date Smoking Tobacco: Never Assessed Comments Unknown Sex and Gender Information Value Date Recorded Sex Assigned at Not on file Legal Sex Female 4:28 PM CDT Gender Identity Not on file Sexual Orientation Not on file documented as of this encounter Miscellaneous Notes * Cerner Conversion Note - Jessenia ProviderMD - 06/28/2018 7:30 PM SHUTTLE FILLER ED Discharge Entered On: 06/28/2018 19:30 EST [...] 06/28/2018 19:30 EST Electronically signed by Jannette, [facility] Conversion Lawn Service Worker Cerner at 08/31/2022 5:26 PM CDT documented in this encounter Plan of Treatment Not on file documented as of this encounter Visit Diagnoses Not on filedocumented in this encounter Care Teams Loop Machine Operator Relationship Specialty Start Date End Date Alan Beyer MD [address] [place] [address] PCP - General Family Medicine 06/08/23 documented as of this encounter
--- OUTSIDE RECORDS SUMMARY | 2024-11-27 15:00 | XMS_ITS | Encounter Summary ---
Author Organization [employer] ([place], [place], [place], [place]) Address [address] [place] [address] Care Team Providers Care Senior Storage Administrator Name Role Phone Alan Beyer MD Primary Care Provider [phone] Encounter Details Date Type Department Care Team (Late st Contact Info) Description 11/07/2019 Transcribed Document [facility] [place] Family Medicine [facility] [place] [address] ProviderJessenia MD [address] [place] [address] Social History Tobacco Use Types [...] Alvarez MD - 11/07/2019 1:01 AM CDT [place] [id number] CHARLINE BOND :1980 Visit Time:11/06/2019 Your Visit [...] You urine culture is pending Where: [address] [place] [address]- Business (1) Follow Up with Follow up with specialist When Within 2 to 3 days Follow Up with ANSLEY GUADALUPE When Within 2 to 3 days Where: [address] [place] [address] Business (1) Allergies Bactrim acetaminophen-oxyCODONE clindamycin Toradol baclofen doxycycline escitalopram fentaNYL lidocaine topical 2% gel meperidine morphine penicillin (Hives) tetanus immune globulin Immunizations This Visit No Immunizations Found Medications What How Much When Instructions Next Dose acetaminophen-hydrocodone ([place] 7.5 mg-325 mg oral tablet) 1 Tablet(s) [...] range between ( 1.0 and 7.0 ) Howard #: 0.49 K/uL -- Normal range between ( 0.24 and 0.82 ) Eos #: 0.10 K/uL -- Normal range between ( 0.04 and 0.54 ) Howard %: 5.5 % -- Normal range between [...] ) Urine Bilirubin Dipstick: Negative Urine Specific Norris: 1.019 -- Normal range between ( 1.005 [...] this condition includes: ??? Antibiotic medicine. ??? Xwsp-yis-mybhwql medicines to treat discomfort. ??? Drinking enough [...] these instructions at home: Medicines ??? Take abfq-uag-aargnsv and prescription medicines only as told by [...] 02/07/2006 Document Revised: 04/17/2019 Document Reviewed: 11/07/2018 [employer] Interactive Patient Education ?? 2020 [employer]. Dysuria Dysuria is pain or discomfort while [...] may irritate the prostate. Medicines ??? Take accj-lid-dpfnioz and prescription medicines only as told by [...] 01/26/2005 Document Revised: 02/14/2018 Document Reviewed: 02/14/2018 [employer] Interactive Patient Education ?? 2020 [employer]. Emergency Awareness and Preventative Care STROKE is [...] Assistance with quitting is available by contacting 0-995-LVRR-NOW. This is a free resource providing counseling, [...] was given the opportunity to ask questions. Patient/Medical Oncology Physician Name: Patient/Medical Oncology Physician Signature: Relationship to Patient: Clinician/Hospital Medical Oncology Physician Signature: Please Provide a Telephone Number Where You Can Be Reached: Is it Permissible To Leave a Message? Date: documented in this encounter Plan of Treatment Not on file documented as of this encounter Visit Diagnoses Not on filedocumented in this encounter Care Teams Senior Storage Administrator Relationship Specialty Start Date End Date Alan Beyer MD [address] [place] [address] PCP - General Family Medicine 06/08/23 documented as of this encounter
--- OUTSIDE RECORDS SUMMARY | 2024-11-27 15:00 | XMS_ITS | Encounter Summary ---
Author Organization [employer] ([place], [place], [place], [place]) Address [address] [place] [address] Care Team Providers Care Mold Maker Name Role Phone Alan Beyer MD Primary Care Provider [phone] Encounter Details Date Type Department Care Team (Late st Contact Info) Description 03/16/2020 Transcribed Document [facility] [place] [address] [place] [address] ProviderJessenia MD [address] [place] [address] Social History Tobacco Use Types [...] Jessenia Alvarez MD - 03/16/2020 5:05 PM RESEARCH FELLOW [place] [id number] CHARLINE BOND :1980 Visit Time:03/16/2020 Your Visit [...] the nausea vomiting and diarrhea Where: [address] [place] [address]- Business (1) Allergies Bactrim acetaminophen-oxyCODONE clindamycin Toradol baclofen doxycycline escitalopram fentaNYL lidocaine topical 2% gel meperidine morphine penicillin (Hives) tetanus immune globulin Immunizations This Visit No Immunizations Found Medications What How Much When Instructions Next Dose ondansetron (Zofran ODT 4 mg oral tablet, disintegrating) 1 Tablet(s) Oral Every 4 Hours as needed for Nausea/Vomiting Duration: 3 Day(s) Pickup at [place] [address] promethazine (promethazine 25 mg oral tablet) 1 Tablet(s) Oral Every 4 Hours as needed for as needed for nausea/vomiting Duration: 3 Day(s) can make you sleepy Pickup at [place] [address] conjugated estrogens (Premarin) Vaginal Weekly cream fexofenadine (Karine) Oral Every Day ibuprofen 400 Milligram(s) Oral Every 8 Hours as needed for as needed for pain methocarbamol (Robaxin-750 oral tablet) 1 Tablet(s) Oral Every Day valACYclovir (Valtrex) 500 Milligram(s) Oral Every Day fever blister Pharmacy Information [facility] [address]: [address] [place], [place] [id number] [phone] The home medications listed are only as [...] range between ( 1.0 and 7.0 ) [place]more #: 0.31 K/uL -- Normal range between ( 0.24 and 0.82 ) Eos #: 0.04 K/uL -- Normal range between ( 0.04 and 0.54 ) [place] %: 5.7 % -- Normal range between [...] virus is thought to spread mainly from mmbamz-nu-bvefsa. ? Between people who are in close [...] are not readily available, use a hand big data software engineer that contains at least 60% alcohol. Cover [...] are at higher risk of getting very sick.https://www.cdc.gov/coronavirus/2019-ncov/pgtj-tsyej-ahlzvwbnqzx/people-a a-lnxrfy-dkwc.html Cover your mouth and nose with a cloth face cover when around others ??? You could spread COVID-19 to others even if you do not feel sick. ??? Everyone should wear a cloth face cover when they have to go out in public, for example to the grocery store or to scrap picker other necessities. ? Cloth face coverings should [...] available, clean your hands with a hand big data software engineer that contains at least 60% alcohol. Clean and disinfect ??? Clean AND disinfect frequently touched surfaces daily. This includes tables, doorknobs, light switches, countertops, handles, desks, phones, keyboards, toilets, faucets, and sinks. https://www.cdc.gov/coronavirus/2019-ncov/mknagmh-rnoouyh-zxpn/disinfecting-yo ur-home.html ??? If surfaces are dirty, clean them: Use detergent or soap and water prior to disinfection. cdc.gov/coronavirus 08/23/2019 This information is not intended to replace advice given to you by your health care provider. Make sure you discuss any questions you have with your health care provider. Document Released: 08/26/2019 Document Revised: 08/29/2019 Document Reviewed: 08/26/2019 [employer] Patient Education ?? 2020 YR Free. COVID-19 Frequently Asked Questions COVID-19 (coronavirus disease) is an infection that is caused by a large family of viruses. Some viruses cause illness in people and others cause illness in animals like camels, cats, and bats. In some cases, the viruses that cause illness in animals can spread to humans. Where did the coronavirus come from? In April 2019, [place] told the World Health Organization (WHO) of several cases of lung disease (human respiratory illness). These cases were linked to an open seafood and livestock market in the city of [place]. The link to the seafood and livestock [...] and virus naming World Health Organization (WHO): www.who.int/emergencies/diseases/iozbh-ovonfjhvctk-5815/technical-guidance/nam xkl-vto-gphxsyujgkc-disease-(covid-2019)-ysu-zpe-cvcza-idfp-dmnlyj-cg Who is at risk for complications from [...] relieve his or her symptoms by using vylp-lbh-oyvjajm medicines that treat sneezing, coughing, and runny [...] water are not available, use alcohol-based hand big data software engineer. ??? Avoid touching your face, mouth, nose, [...] (CDC): www.cdc.gov/coronavirus/2019-ncov/travelers/index.html ??? World Health Organization (WHO): www.who.int/emergencies/diseases/fydlx-yhzpoyfwvzk-6133/travel-advice Know the risks and take action to [...] water are not available, use alcohol-based hand big data software engineer. ??? Cough or sneeze into a tissue, [...] in hot, soapy water or use a head school custodian. Air-dry your dishes. ??? Wash laundry [...] Organization (WHO) ??? Information and news updates: www.who.int/emergencies/diseases/qrbiz-bmtxugahsgo-0989 ??? Coronavirus health topic: www.who.int/health-topics/coronavirus ??? Questions and answers on COVID-19: www.who.int/news-room/q-a-detail/e-o-fjgzayevxxopm ??? Global tracker: who.Tagstr [place] Academy of Pediatrics (AAP) ??? Information for families: www.healthychildren.org/Syrian/health-issues/conditions/chest-lungs/Pages/201 4-Rbork-Wzzgecbjfxd.aspx The coronavirus situation is changing rapidly. Check [...] 08/26/2019 Document Revised: 08/26/2019 Document Reviewed: 08/26/2019 [employer] Patient Education ?? 2020 [employer]evr Inc. COVID-19 COVID-19, also known as coronavirus [...] symptoms. This may include rest, fluids, and bewr-vww-ymordaq medicines. Follow these instructions at home: Lifestyle [...] safe for you. General instructions ??? Take kptp-avk-rmlznuw and prescription medicines only as told by [...] To identify high-risk areas, check the [facility] travel website: wwwnc.cdc.gov/travel/notices ??? If you live [...] are not available, use an alcohol-based hand big data software engineer. ? Avoid touching your mouth, face, eyes, [...] water are not available, use alcohol-based hand big data software engineer. ??? Stay away from other members of [...] 06/05/2019 Document Revised: 08/26/2019 Document Reviewed: 06/05/2019 [employer] Patient Education ?? 2020 YR Free. Food Choices to Help Relieve Diarrhea, Adult [...] best for you. Grains White rice. White, Mexican, or tin breads (fresh or toasted), including [...] or bran cereals. Barley. Oats and oatmeal. [place] tortillas or taco shells. Granola. Popcorn. Vegetables Raw vegetables. Fried vegetables. Cabbage, broccoli, [place] sprouts, artichokes, baked beans, beet greens, corn, kale, legumes, peas, sweet potatoes, and yams. Potato skins. Cooked spinach and cabbage. Fruits Dried fruit, including raisins and dates. Raw fruits. Stewed or dried prunes. Canned fruits with syrup. Meat and other protein foods Fried or fatty meats. Deli meats. [place] nut butters. Nuts and seeds. Beans and lentils. [place]. Hot dogs. Sausage. Dairy High-fat cheeses. Whole milk, chocolate milk, and beverages made with milk, such as milk shakes. Okgw-olh-farb. Cream. sour cream. Ice cream. Beverages Caffeinated [...] Seasoning and other foods Honey. Hot sauce. [place] powder. Gravy. Cream-based or milk-based soups. Pancakes [...] 07/20/2004 Document Revised: 08/21/2019 Document Reviewed: 04/27/2017 [employer] Patient Education ?? 2020 YR Free. Diarrhea, Adult Diarrhea is when you pass [...] or caffeine in them. ??? Eat bland, qvjp-vp-sruigl foods in small amounts as you are able. These foods include: ? Bananas. ? Applesauce. ? Rice. ? Low-fat (lean) meats. ? [place]. ? Crackers. ??? Avoid alcohol. ??? Avoid spicy or fatty foods. Medicines ??? Take hioq-vcl-ypunekq and prescription medicines only as told by your doctor. ??? If you were prescribed an antibiotic medicine, take it as told by your doctor. Do not stop using the antibiotic even if you start to feel better. General instructions ??? Wash your hands often using soap and water. If soap and water are not available, use a hand big data software engineer. Others in your home should wash their [...] at pharmacies and stores. ??? Eat bland, uwmu-mg-vfcqjt foods in small amounts as you are [...] 10/16/2008 Document Revised: 10/04/2018 Document Reviewed: 10/04/2018 [employer] Patient Education ?? 2020 YR Free. Nausea and Vomiting, Adult Nausea is feeling [...] ? Low-calorie sports drinks. ??? Eat bland, uuuz-za-ddbzcf foods in small amounts as you are able, such as: ? Bananas. ? Applesauce. ? Rice. ? Low-fat (lean) meats. ? [place]. ? Crackers. ??? Avoid drinking fluids that have a lot of sugar or caffeine in them. This includes energy drinks, sports drinks, and soda. ??? Avoid alcohol. ??? Avoid spicy or fatty foods. General instructions ??? Take evti-ext-lfaivyi and prescription medicines only as told by your doctor. ??? Drink enough fluid to keep your pee (urine) pale yellow. ??? Wash your hands often with soap and water. If you cannot use soap and water, use hand big data software engineer. ??? Make sure that all people in [...] much water in your body. ??? Take uevx-hao-mqshjgm and prescription medicines only as told by [...] 10/16/2008 Document Revised: 08/22/2019 Document Reviewed: 10/08/2018 [employer] Patient Education ?? 2020 [employer]r Inc. Dehydration, Adult Dehydration is when there [...] lot of fat or sugar. ??? Take sbjh-lxv-dyzpmcv and prescription medicines only as told by [...] Assistance with quitting is available by contacting 9-536-LRMBNOW. This is a free resource providing counseling, support, and referral. Or you may contact your personal physician. [place] Suicide Prevention Lifeline: The National Suicide Prevention [...] was given the opportunity to ask questions. Patient/Concierge Receptionist Name: Patient/Concierge Receptionist Signature: Relationship to Patient: Clinician/Hospital Concierge Receptionist Signature: Please Provide a Telephone Number Where You Can Be Reached: Is it Permissible To Leave a Message? Date: Electronically signed by Interface, [facility] Conversion Supercalender Operator Helper Cerner at 08/31/2022 4:58 PM CDT documented in this encounter Plan of Treatment Not on file documented as of this encounter Visit Diagnoses Not on filedocumented in this encounter Care Teams Mold Maker Relationship Specialty Start Date End Date Alan Beyer MD [address] [place] [address] PCP - General Family Medicine 06/08/23 documented as of this encounter
--- OUTSIDE RECORDS SUMMARY | 2024-11-27 15:00 | XMS_ITS | Encounter Summary ---
Author Organization [employer] ([place], [place], [place], [place]) Address [address] [place] [address] Care Team Providers Care Long Term Acute Care Registered Nurse Name Role Phone Alan Beyer MD Primary Care Provider Encounter Details Date Type Department Care Team (Late st Contact Info) Description 07/04/2018 Transcribed Document [facility] [place] Family Medicine [address] [place] [address] ProviderJessenia MD [address] [place], [place] [id number] Social History Tobacco Use Types Packs/Day Years Used Date Smoking Tobacco: Never Assessed Comments Unknown Sex and Gender Information Value Date Recorded Sex Assigned at Not on file Legal Sex Female 4:28 PM CDT Gender Identity Not on file Sexual Orientation Not on file documented as of this encounter Miscellaneous Notes * Cerner Conversion Note - Jessenia ProviderMD - 07/04/2018 1:08 PM MARINE OPERATIONS COORDINATOR Pain Assessment Entered On: 07/04/2018 13:49 EST [...] filedocumented in this encounter Care Teams Long Term Acute Care Registered Nurse Relationship Specialty Start Date End Date Alan Beyer MD [address] [place] [address] PCP - General Family Medicine 06/08/23 documented as of this encounter
--- OUTSIDE RECORDS SUMMARY | 2024-11-27 15:00 | XMS_ITS | Encounter Summary ---
Author Organization [employer] ([place], [place], [place], [place]) Address [address] [place] [address] Care Team Providers Care Jewelry Casting Model Maker Name Role Phone Alan Beyer MD Primary Care Provider [phone] Encounter Details Date Type Department Care Team (Late st Contact Info) Description 06/28/2018 Transcribed Document [facility] [place] [address] [place] [address] ProviderJessenia MD [address] [place], [place] [address] Social History Tobacco Use Types Packs/Day Years Used Date Smoking Tobacco: Never Assessed Comments Unknown Sex and Gender Information Value Date Recorded Sex Assigned at Not on file Legal Sex Female 4:28 PM CDT Gender Identity Not on file Sexual Orientation Not on file documented as of this encounter Miscellaneous Notes * Cerner Conversion Note - Jessenia Alvarez MD - 06/28/2018 7:29 PM INFORMATION DEVELOPER ED Discharge Vital Signs Entered On: 06/28/2018 [...] of the form. Electronically signed by Jannette, [facility] Conversion Physician Liaison Cerner at 08/31/2022 4:58 PM CDT documented in this encounter Plan of Treatment Not on file documented as of this encounter Visit Diagnoses Not on filedocumented in this encounter Care Teams Jewelry Casting Model Maker Relationship Specialty Start Date End Date Alan Beyer MD [address] [place] [address] PCP - General Family Medicine 06/08/23 documented as of this encounter
--- OUTSIDE RECORDS SUMMARY | 2024-11-27 15:01 | XMS_ITS | Clinical Summary ---
Author Organization 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 Encounters Date Type Department Care Team Description 11/19/2024 8:30 AM EDT Office Visit [facility] [address] [address] Shira Ambrose PA-C Bilateral carpal tunnel syndrome (Primary Dx) 11/19/2024 Orders Only [facility] [address] [address] Elias De La Cruz MD Right carpal tunnel syndrome (Primary Dx) 11/04/2024 9:10 AM EDT - 11/04/2024 11:59 PM EDT Hospital Encounter [facility] [address] [facility] [address] [place] [id number] Emg, Ro[facility] Edg Bilateral carpal tunnel syndrome Discharge Disposition: Home or Self Care 11/03/2024 11:12 AM EDT - 11/03/2024 2:08 PM EDT Emergency [facility] [address] [place] [address] Aleks Cali MD Left flank pain (Primary Dx) Discharge Disposition: Home or Self Care 11/03/2024 Travel 10/20/2024 8:00 AM EDT Office Visit [facility] [address] [facility] [address] [place] [address] Shira Ambrose PA-C Bilateral carpal tunnel syndrome (Primary Dx) 10/20/2024 [place] [address] Ynes Hoffman Ortho Tech Other 10/18/2024 12:30 PM [place] [address] Moisés Katz PA Left hand pain 10/18/2024 12:15 PM EDT Office Visit [facility] [place] [address] Moisés Katz PA Bilateral carpal tunnel syndrome (Primary Dx); Left hand pain 10/05/2024 8:00 PM EDT - 10/05/2024 9:47 PM EDT Emergency [facility] [address] [place] [address] Andrés Donahue MD Injury of right hand, [...] EDT Inhaled Oxygen Concentration - - Weight 95.3 kg (210 lb) 11/19/2024 8:33 AM EDT Height 165.1 cm (5' 5 ) 11/19/2024 8:33 AM EDT Body Mass Index 34.95 11/19/2024 8:33 AM EDT Plan of Treatment Upcoming Encounters Date Type Department Care Team (Late st Contact Info) Description 12/31/2024 9:25 AM EDT Hospital Encounter [facility] [address] [place] [address] Elias De La Cruz MD [address] [place] [address] 12/31/2024 9:25 AM EDT - 12/31/2024 10:00 AM EDT Surgery [facility] [address] [place] [id number] Elias De La Cruz MD [address] [place] [address] CARPAL TUNNEL RELEASE ENDOSCOPIC 01/14/2025 8:45 AM EDT Office Visit [facility] [address] [facility] [address] [place] [address] Shira Ambrose PA-C [address] [place] [address] Scheduled Procedures Name Priority Associated Diagnoses Date/Ti me CARPAL TUNNEL RELEASE ENDOSCOPIC Right carpal tunnel syndrome 12/31/2024 9:25 AM EDT CARPAL TUNNEL RELEASE Right carpal tunnel syndrome 12/31/2024 9:25 AM EDT Health Maintenance Due Date Last Done Comments Annual Wellness Exam 1985 DTaP/TDaP/Td (1 - Tdap) 2001 Hepatitis B Vaccine (1 of 3 - 19+ 3-dose series) 2001 Cervical Cancer Screening 11/06/2003 Pap Smear 11/06/2003 HPV/Pap Cotest 2012 Breast Cancer Screening 2022 COVID-19 Vaccine ( season) 2024 07/29/2021, 02/28/2021, 02/03/2021 Influenza Vaccine (#1) 2025 , 03/21/2023, 02/03/2021, Additional history exists Pneumococcal Vaccine 0-49 Aged Out 2016, 02/13/2017, 02/16/2016 No longer eligible based on patient's age to complete this topic Meningococcal B Vaccine Aged Out No l [...] NEUROLOGY ORDERABLES Yvonne watkins Result SEP OFFICE * CT ABD PEL [...] of the ordering clinician. Ynes Zayas PA-C IM CT ORDERABLES Final Res ult * (ABNORMAL) CBC WITH DIFF (11/03/2024 11:36 AM EDT) WBC 6.6 3.7 - 10.3 x10(3)/mcL 11/03/2024 11:47 AM EDT [facility] RBC 3.56(L) 3.90 - 5.20 x10(6)/mcL 11/03/2024 11:47 AM EDT [facility] Hgb 11.6 11.2 - 15.7 g/dL 11/03/2024 11:47 AM EDT [facility] Hct 34.9 34.0 - 45.0 % 11/03/2024 11:47 AM EDT [facility] MCV 98.0 80.0 - 100.0 fL 11/03/2024 11:47 AM EDT [facility] MCH 32.6 26.0 - 34.0 pg 11/03/2024 11:47 AM EDT [facility] MCHC 33.2 30.7 - 35.5 g/dL 11/03/2024 11:47 AM EDT [facility] RDW 12.4 <=14.9 % 11/03/2024 11:47 AM EDT [facility] Platelet 264 155 - 369 x10(3)/mcL 11/03/2024 11:47 AM EDT [facility] MPV 9.9 8.8 - 12.5 fL 11/03/2024 11:47 AM EDT [facility] Neut Percent 61.1 % 11/03/2024 11:47 AM EDT [facility] Comment:Neutrophils equals s egs plus bands Imm Gran% 0.2 % 11/03/2024 11:47 AM EDT [facility] Comment:Automated count of m etamyelocytes, myelocytes and promyelocytes. Lymph Percent 28.5 % 11/03/2024 11:47 AM EDT [facility] [place] Percent 7.6 % 11/03/2024 11:47 AM EDT [facility] Eos Percent 2.1 % 11/03/2024 11:47 AM EDT [facility] Baso Percent 0.5 % 11/03/2024 11:47 AM EDT [facility] Neut # 4.0 1.6 - 6.1 x10(3)/mcL 11/03/2024 11:47 AM EDT [facility] Comment:Neutrophils equals s egs plus bands IMMGRAN# 0.0 0.0 - 0.1 x10(3)/mcL 11/03/2024 11:47 AM EDT [facility] Comment:Automated count of m etamyelocytes, myelocytes and promyelocytes. An absolute IG <0.1 is reported as 0.0. Lymph # 1.9 1.2 - 3.9 x10(3)/mcL 11/03/2024 11:47 AM EDT [facility] [place] # 0.5 0.3 - 0.9 x10(3)/mcL 11/03/2024 11:47 AM EDT [facility] Eos# 0.1 0.0 - 0.5 x10(3)/[facility] 11/03/2024 11:47 AM EDT [facility] Baso # 0.0 0.0 - 0.1 x10(3)/mcL 11/03/2024 11:47 AM EDT [facility] Blood VENOUS BLOOD / Unknown Venipuncture / Unknown 11/03/2024 11:36 AM EDT 11/03/2024 11:42 AM EDT Ynes Zayas PA-C HEMATOLOGY ORDERABLES Final Result [facility] [address] [place] [address] * HUMAN CHORIONIC GONADOTROPIN QUANTITATIVE (11/03/2024 11:36 AM EDT) Hcg Quant <1 <5 mIU/mL 11/03/2024 11:59 AM EDT [facility] Blood VENOUS BLOOD / Unknown Venipuncture / Unknown 11/03/2024 11:36 AM EDT 11/03/2024 11:42 AM EDT [facility] - 11/03/2024 11:59 AM EDT Female [...] Ynes Zayas PA-C CHEMISTRY ORDERABLES Final Result [facility] [address] [place] [address] * (ABNORMAL) COMPREHENSIVE METABOLIC PANEL (11/03/2024 11:36 AM EDT) Sodium 138 136 - 145 mmol/L 11/03/2024 12:03 PM EDT [facility] Potassium 4.5 3.5 - 5.0 mmol/L 11/03/2024 12:03 PM EDT [facility] Chloride 104 98 - 107 mmol/L 11/03/2024 12:03 PM EDT [facility] Total CO2 24 22 - 29 mmol/L 11/03/2024 12:03 PM EDT [facility] Anion Gap 10 7 - 16 mmol/L 11/03/2024 12:03 PM EDT [facility] Calcium 8.6 8.6 - 10.4 mg/dL 11/03/2024 12:03 PM EDT [facility] Glucose Lvl 102(H) 70 - 99 mg/dL 11/03/2024 12:03 PM EDT [facility] BUN 13 6 - 20 mg/dL 11/03/2024 12:03 PM EDT [facility] Creatinine 0.75 0.51 - 1.30 mg/dL 11/03/2024 12:03 PM EDT [facility] Albumin 4.2 3.5 - 5.2 gm/dL 11/03/2024 12:03 PM EDT [facility] Total Protein 7.2 6.4 - 8.3 gm/dL 11/03/2024 12:03 PM EDT [facility] Bili Total <0.2(L) 0.2 - 1.3 mg/dL 11/03/2024 12:03 PM EDT [facility] ALT 13 <=41 U/L 11/03/2024 12:03 PM EDT [facility] AST 20 <=40 U/L 11/03/2024 12:03 PM EDT [facility] Alk Phos 93 36 - 123 U/L 11/03/2024 12:03 PM EDT [facility] eGFR (CKD-EPIcr 2020) 102 >=60 mL/min/1.7 3 m2 11/03/2024 12:03 PM EDT [facility] Comment:Estimated GFR was ca lculated using the CKD-EPIcr (2020) equation refit without race. The equation is recommended by the National Kidney Foundation - [place] [employer] of Nephrology Task Force. Blood VENOUS BLOOD / Unknown Venipuncture / Unknown 11/03/2024 11:36 AM EDT 11/03/2024 11:42 AM EDT Ynes Zayas PA-C CHEMISTRY ORDERABLES Final Result [facility] [address] [place] [address] * URINALYSIS REFLEX (11/03/2024 11:16 AM EDT) UA Color Yellow 11/03/2024 11:24 AM EDT [facility] UA Appear Clear Clear 11/03/2024 11:24 AM EDT [facility] UA Glucose Negative Negative mg/dL 11/03/2024 11:24 AM EDT [facility] UA Ketones Negative Negative mg/dL 11/03/2024 11:24 AM EDT [facility] UA Blood Negative Negative 11/03/2024 11:24 AM EDT [facility] UA pH 6.0 5.0 - 8.0 pH 11/03/2024 11:24 AM EDT [facility] UA Protein Negative Negative mg/dL 11/03/2024 11:24 AM EDT [facility] UA Urobilinogen 0.2 <=1 mg/dL 11:24 AM EDT [facility] UA Bili Negative Negative 11/03/2024 11:24 AM EDT [facility] UA Nitrite Negative Negative 11/03/2024 11:24 AM EDT [facility] UA Leuk Est Negative Negative 11/03/2024 11:24 AM EDT [facility] UA Spec Grav 1.010 1.001 - 1.035 no units 11/03/2024 11:24 AM EDT [facility] Comment:Reference range keith d for random specimens only. Urine STRUCTURE OF URINARY TRACT PROPER / Unknown 11/03/2024 11:16 AM EDT 11/03/2024 11:21 AM EDT Ynes Zayas PA-C URINE ORDERABLES Final Resu lt Performing Organization Address [facility] Co de Phone Number [facility] [address] [place] [address] * EXTRA BROUSSARD URINE CX (11/03/2024 11:16 AM EDT) Urine STRUCTURE OF URINARY TRACT PROPER / Unknown 11/03/2024 11:16 AM EDT 11/03/2024 11:21 AM EDT Ynes Zayas PA-C MICROBIOLOGY - GENERAL ORDE RABLES Final Result Performing Organization Address [facility] de Phone Number [facility] [address] [place] [address] * XR HAND LEFT PA LATERAL AND OBLIQUE (10/18/2024 12:27 PM EDT) Isabelle Allen - 10/18/2024 12:28 PM EDT Please see physician's note from office encounter for x-ray imaging result Moisés [facility] ORDER DONNA Final Result * [...] Final Result from Last 3 Months Insurance [facility] [id number] [facility] [employer] OF [address] [employer] OF [address] [employer] [place] [address] [address] [facility] [id number] MDR Care Teams River Captain Relationship Specialty Start Date End Date Alan Beyer MD PCP - General Family Medicine 10/05/24
--- OUTSIDE RECORDS SUMMARY | 2024-11-27 15:01 | XMS_ITS | Encounter Summary ---
Author Organization [facility] Address [address] [place] [address] Care Team Providers Care Administrative Office Assistant Name Role Phone Alan Beltre MD Primary Care Provider [phone] Reason for Visit * Reason Onset Date Comments Other 10/20/2024 Encounter Details Date Type Department Care Team (Late st Contact Info) Description 10/20/2024 Telephone [facility] [address] [place] [phone] Ynes Hoffman Ortho Tech Other Social History [...] 10/20/2024 7:43 AM EDT ----- Message from Manager Analysis Adam sent at 10/18/2024 12:44 PM EDT ----- Regarding: Order for CHARLINE BOND Patient Name: CHARLINE BOND([id number]) Sex: Female : 1980 PCP: ALAN BELTRE Center: [facility] Level of Service:[address] [place] OFFICE/OUTPATIENT NEW LOW MDM 30 MINUTES Types of orders made on 10/18/2024: Imaging, Outpatient Referral, [place] Charge Order Date:10/18/2024 Ordering User:ADAM PALACIOS [[id number]] Encounter Provider:Moisés Katz PA [[id number]] Authorizing Provider: Moisés Katz PA [[id number]] Department:[facility][[id number]] Order Specific Information Order: HAND POOL COMMUNICATION ORDER [Custom: [id number]] Order #: [id number]: 1 Priority: Routine Class: Internal Referral Cosign required by MOISÉS KATZ[[id number]] Associated Diagnoses M79.642 Left hand pain G56.03 Bilateral carpal tunnel syndrome Priority: Routine Class: Internal Referral Cosign required by MOISÉS KATZ[[id number]] Associated Diagnoses M79.642 Left hand pain G56.03 Bilateral carpal tunnel syndrome documented in this encounter Plan of Treatment Upcoming Encounters Date Type Department Care Team (Late st Contact Info) Description 12/31/2024 9:25 AM EDT Hospital Encounter [facility] [address] [place] [address] Elias De La Cruz MD [address] [place] [address] 12/31/2024 9:25 AM EDT - 12/31/2024 10:00 AM EDT Surgery EDG [address] [place], [place] [id number] Elias De La Cruz MD [address] [facility] [address] CARPAL TUNNEL RELEASE ENDOSCOPIC 01/14/2025 8:45 AM EDT Office Visit [facility] [address] [place] [address] Shira Ambrose PA-C [address] [place] [address] Scheduled Procedures Name Priority Associated Diagnoses Date/Ti me CARPAL TUNNEL RELEASE ENDOSCOPIC Right carpal tunnel syndrome 12/31/2024 9:25 AM EDT CARPAL TUNNEL RELEASE Right carpal tunnel syndrome 12/31/2024 9:25 AM EDT documented as of this encounter Visit Diagnoses Not on filedocumented in this encounter Care Teams Administrative Office Assistant Relationship Specialty Start Date End Date Alan Beltre MD PCP - General Family Medicine 10/05/24 documented as of this encounter
--- OUTSIDE RECORDS SUMMARY | 2024-11-27 15:01 | XMS_ITS | Encounter Summary ---
Author Organization [facility] [place] [address] Care Team Providers Care Environmental Systems Coordinator Name Role Phone Alan Beyer MD [...] 11/03/2024 11:05 AM Monalisa Beal RN * [place] Suicide Severity Rating Scale (Q shift for [...] your life? 0 11/03/2024 11:05 AM Monalisa Beal, RN documented as of this encounter Plan of Treatment Upcoming Encounters Date Type Department Care Team (Late st Contact Info) Description 12/31/2024 9:25 AM EDT Hospital Encounter EDG [address] [place], [place] [phone] Elias De La Cruz MD [address] [place], [place] [id number] 12/31/2024 9:25 AM EDT - 12/31/2024 10:00 AM EDT Surgery [facility] [address] [place], [place] [phone] Elias De La Cruz MD [address] [place], [place] [id number] CARPAL TUNNEL RELEASE ENDOSCOPIC 01/14/2025 8:45 AM EDT Office Visit [facility] [address] [phone] Shira Ambrose PA-C [address] [place] [address] Scheduled Procedures Name Priority Associated Diagnoses Date/Ti me CARPAL TUNNEL RELEASE ENDOSCOPIC Right carpal tunnel syndrome 12/31/2024 9:25 AM EDT CARPAL TUNNEL RELEASE Right carpal tunnel syndrome 12/31/2024 9:25 AM EDT documented as of this encounter Visit Diagnoses Not on filedocumented in this encounter Care Teams Environmental Systems Coordinator Relationship Specialty Start Date End Date Alan Beyer MD PCP - General Family Medicine 10/05/24 documented as of this encounter
[2024-11-27 15:32] LABS: Cholesterol 239 mg/dl (140-200); HDL Cholesterol 52 mg/dl (40-60); Triglycerides 181 mg/dl (30-150)
[2024-11-27 18:23] LABS: Hepatitis C Ab Qual. W/ RFX NEGATIVE (Negative)
[2024-11-28 10:41] LABS: Hepatitis B Surface Antigen Negative (Negative)
[2024-11-28 12:01] LABS: FSH 4.5 mIU/mL (.)
== END 2024-11-27 23:59 | disposition home or self-care (01) ==
LOC: LAB.DROPOF 14:39
PROVIDERS: PCP Family Medicine; Visit Provider Family Medicine
DX: H66.90 Otitis media, unspecified, unspecified ear (principal); Z11.59 Encounter for screening for other viral diseases; Z78.0 Asymptomatic menopausal state; Z13.6 Encounter for screening for cardiovascular disorders
CPT/HCPCS: 80061; 80074; 83001; 87340; 87389